=== PATIENT | female | born 1965 | race Caucasian/White ===

== ENCOUNTER → 2017-05-07 | Outpatient (CLI) | payer OTHER ==
[~2017-05-07] MED LIST: ATV5 PO; CLC100 PO; CLCC1250 PO; CLOB1SUS PO; FAMO40TA6 PO; HYDR-389 PO; KPP/750 PO; LAMO100T16 PO; LAMO200T38 PO; MRLP17 PO; MULT-506 PO; PERP1TAB5 PO; PERP1TAB6 PO; PRLSR20 PO; QUET-205 PO; TRAZ1TAB16 PO
--- NOTE | 2017-05-07 15:19 | MAMMOGRAPHY REPORT ---
BILATERAL DIGITAL SCREENING MAMMOGRAM WITH CAD: 05/07/2017 CLINICAL HISTORY: Routine screening. TECHNIQUE: Current study was also evaluated with a Computer Aided Detection (CAD) system. Bilateral MLO views were obtained. COMPARISON: Comparison is made to exams dated: 03/21/2014 mammogram, 03/22/2015 mammogram, 03/19/2013 mamm ogram, 09/28/2012 mammogram, 03/26/2012 mammogram, and 03/17/2012 mammogram - [facility] BREAST COMPOSITION: The tissue of both breasts is heterogeneously dense, which may obscure small mas ses. FINDINGS: Note that the exam is markedly limited; the patient had to be held for all views and could not cooperate for optimal positioning. Only bilateral MLO views could be obtained, which are also mar kedly limited and do not include pectoralis muscles or inframammary folds and are excluding a signifi cant amount of posterior tissue. Within the significant limitations of the exam, there are no suspi cious masses, calcifications, or areas of architectural distortion noted in either breast. There has been no significant interval change compared to prior exams. IMPRESSION: ACR BI-RADS CATEGORY 1: NEGATIVE Significantly limited exam as described above, with only bilateral MLO views obtained. Within the li mitations of the exam, there is no mammographic evidence of malignancy. A 1 year screening mammogram is recommended, if the patient can tolerate the exam. The patient will receive written notification of the results. Approximately 10% of breast cancers are not detected with mammography. A negative mammographic report should not delay biopsy if a clinically suggestive mass is present. Malaika Jimenez M.D. /:05/07/2017 14:44:47 Manufacturing Support Engineer: Jemima NGUYEN(Irving)(M), [facility] letter sent: Normal 1/2 BI-RADS Code: ACR BI-RADS Category 1: Negative
== END | disposition home or self-care (01) ==
LOC: C.MAMM 14:01
PROVIDERS: ATTEND Internal Medicine
DX: Z12.31 Encounter for screening mammogram for malignant neoplasm of breast (principal)

== ENCOUNTER 2018-01-06 11:59 | Emergency (ER) | payer OTHER ==
[~2018-01-06] VITALS: Ht 144.8 cm; Wt 76.8 kg
[~2018-01-06 11:59] MED LIST changes: +LAMO200T35 PO; -LAMO200T38 PO; +TRAZ-119 PO; -TRAZ1TAB16 PO
[2018-01-06 12:13] VITALS: TEMP 36.5; Ht 144.8 cm; Wt 76.8 kg
[2018-01-06] MEDS ORDERED: SRQ/200 PO (12:41)
[2018-01-06] MEDS ORDERED: POLY335019 PO (12:41)
[2018-01-06] MEDS ORDERED: LORA-741 PO (12:41)
[2018-01-06] MEDS ORDERED: ATV/1 PO (12:41)
[2018-01-06] MEDS ORDERED: DOCU-94 PO (12:41)
--- NOTE | 2018-01-06 12:47 | EMERGENCY ROOM VISIT NOTE ---
History Report prepared by Dagoberto: Jb Turcios Under the Supervision of: Dr. Mary Warner M.D. First contact with patient: 12:18 Chief Complaint: OTHER COMPLAINT Stated Complaint: FATIGUE, UNSTEADY GAIT, L SIDE BODY SWOLLEN History of Present Illness The patient is a 52 year old female who presents to the Emergency Room with caretakers for concerns over the patient's gait and behavior. The patient lives at [facility] for MR. The caretakers note that the patient's gait has worsened over the past month or so. The patient appears to limp, and has been stumbling/falling frequently. The weakness appears to be on one side. They also note that the patient is not participating at Skills as she normally would and goes to sleep as soon as she gets home. She does not seem to want to interact with anybody. The patient's last fall was yesterday. She is not on any blood thinners. There is no history of UTIs. Source of History: caregiver Onset: 1 month Position: other (Global) Quality: other (Fatigue/sleeping frequently) Timing: worsening Associated Symptoms: + weakness Review of Systems See HPI for pertinent positives & negatives. A total of 10 systems reviewed and were otherwise negative. Past Medical & Surgical Medical Problems: (1) MR (mental retardation) Family History No significant family history Social History Smoking Status: Never Smoker Alcohol Use: none Drug Use: none Marital Status: single Housing Status: other Occupation Status: disabled Current/Historical Medications Scheduled Calcium Carbonate (Oyster Shell Calcium), 1 TAB PO QAM Clobazam (Onfi), 0.5 MG PO QPM Docusate Sodium (Colace), 1 CAP PO BID Famotidine (Pepcid), 40 MG PO QPM Lamotrigine (Lamictal), 100 MG PO BID Lamotrigine (Lamictal), 200 MG PO BID Levetiracetam (Keppra), 1,500 MG PO BID Lorazepam (Ativan), 0.5 MG PO QAM Lorazepam (Ativan), 1 MG PO QPM Multivitamin (Multivitamin), 1 TAB PO DAILY Omeprazole (Prilosec), 20 MG PO DAILY Perphenazine (Trilafon), 4 MG PO BID Perphenazine (Trilafon), 8 MG PO HS Polyethylene Glycol 3350 (Miralax), 17 GM PO DAILY Quetiapine Fumarate (Seroquel), 200 MG PO BID Trazodone Hcl (Desyrel), 50 MG PO HS Scheduled PRN Hydroxyzine Hcl (Atarax), 10 MG PO Q6 PRN for Itching Allergies Coded Allergies: Naproxen (Verified Allergy, Unknown, ., 01/06/18) Physical Exam Vital Signs Date Time Temp Pulse Resp B/P (MAP) Pulse Ox O2 Delivery O2 Flow Rate FiO2 01/06/18 14:30 88 16 141/78 97 01/06/18 13:39 84 20 122/78 98 Room Air 01/06/18 12:13 36.5 96 20 146/77 98 Room Air Physical Exam Vital signs reviewed. General: Chronically ill-appearing female, in no significant distress. Kyphosis appreciated. HEENT: No scleral icterus, PERRLA, neck supple. Atraumatic. Cardiovascular: Regular rate and rhythm, no extra sounds. Pulmonary: Clear to auscultation bilaterally, normal work of breathing. Abdomen: Soft, nontender, nondistended, positive bowel sounds. Musculoskeletal: Atraumatic, no peripheral edema. Neurologic: is limited due to poor cooperation of the patient. Cranial nerves grossly intact, ambulates with a shuffle, but without assistance. Seems to be at neurologic baseline. Skin: Warm, dry, no rash Medical Decision & Procedures ER Provider Diagnostic Interpretation: Radiology results as stated below per my review and radiologist interpretation: CHEST ONE VIEW PORTABLE HISTORY: lethargy COMPARISON: Chest 06/13/2016. FINDINGS: The heart remains mildly enlarged. There is mild central pulmonary vascular congestion without overt edema. No pleural effusions. No pneumothorax. Hazy appearance to the left lateral lung base is likely due to overlapping soft tissue. Otherwise, no focal lung consolidations to suggest pneumonia. IMPRESSION: Cardiomegaly with mild central pulmonary vascular congestion. Electronically signed by: Cuate Bonilla M.D. 01/06/2018 1:20 PM Dictated Date/Time: 01/06/2018 1:[address] OF THE HEAD WITHOUT CONTRAST CLINICAL HISTORY: lethargy COMPARISON STUDY: Head CT July 15, 2016. CT DOSE: 537.48 mGy.cm TECHNIQUE: Helical axial images of the head were obtained without IV contrast. Automated exposure control was utilized for the study. A dose lowering technique was utilized adhering to the principles of ALARA. FINDINGS: No acute intracranial hemorrhage, midline shift or mass effect is present. Ventricular system is normal. Basilar cisterns are patent. There are no extra-axial collections. Hall-white differentiation is maintained. There are no findings to suggest acute dural sinus thrombosis or acute territorial infarct. There are no significant calvarial abnormalities. There is mild left maxillary sinus mucosal thickening. IMPRESSION: No acute intracranial findings. Electronically signed by: Henry Ayala M.D. 01/06/2018 2:02 PM Dictated Date/Time: 01/06/2018 2:00 PM Laboratory Results 01/06/18 13:35 Red Blood Count 4.19, Mean Corpuscular Volume 91.2, Mean Corpuscular Hemoglobin 30.8, Mean Corpuscular Hemoglobin Concent 33.8, Mean Platelet Volume 10.4, Neutrophils (%) (Auto) 42.8, Lymphocytes (%) (Auto) 43.3, Monocytes (%) (Auto) 11.6, Eosinophils (%) (Auto) 1.6, Basophils (%) (Auto) 0.5, Neutrophils # (Auto ) 2.37, Lymphocytes # (Auto) 2.40, Monocytes # (Auto) 0.64, Eosinophils # (Auto ) 0.09, Basophils # (Auto) 0.03 01/06/18 13:35 Test 01/06/18 13:35 White Blood Count 5.54 K/uL (4.8-10.8) Red Blood Count 4.19 M/uL (4.2-5.4) Hemoglobin 12.9 g/dL (12.0-16.0) Hematocrit 38.2 % (37-47) Mean Corpuscular Volume 91.2 fL (80-100) Mean Corpuscular Hemoglobin 30.8 pg (25-34) Mean Corpuscular Hemoglobin Concent 33.8 g/dl (32-36) Platelet Count 214 K/uL (130-400) Mean Platelet Volume 10.4 fL (7.4-10.4) Neutrophils (%) (Auto) 42.8 % Lymphocytes (%) (Auto) 43.3 % Monocytes (%) (Auto) 11.6 % Eosinophils (%) (Auto) 1.6 % Basophils (%) (Auto) 0.5 % Neutrophils # (Auto) 2.37 K/uL (1.4-6.5) Lymphocytes # (Auto) 2.40 K/uL (1.2-3.4) Monocytes # (Auto) 0.64 K/uL (0.11-0.59) Eosinophils # (Auto) 0.09 K/uL (0-0.5) Basophils # (Auto) 0.03 K/uL (0-0.2) RDW Standard Deviation 41.6 fL (36.4-46.3) RDW Coefficient of Variation 12.5 % (11.5-14.5) Immature Granulocyte % (Auto) 0.2 % Immature Granulocyte # (Auto) 0.01 K/uL (0.00-0.02) Prothrombin Time 9.9 SECONDS (9.0-12.0) Prothromb Time International Ratio 0.9 (0.9-1.1) Activated Partial Thromboplast Time 26.1 SECONDS (21.0-31.0) Partial Thromboplastin Ratio 1.0 Anion Gap 5.0 mmol/L (3-11) Est Creatinine Clear Calc Drug Dose 60.2 ml/min Estimated GFR () 81.9 Estimated GFR (Non- 70.7 BUN/Creatinine Ratio 14.4 (10-20) Calcium Level 8.8 mg/dl (8.5-10.1) Magnesium Level 2.0 mg/dl (1.8-2.4) Total Bilirubin 0.2 mg/dl (0.2-1) Direct Bilirubin < 0.1 mg/dl (0-0.2) Aspartate Amino Transf (AST/SGOT) 7 U/L (15-37) Alanine Aminotransferase (ALT/SGPT) 17 U/L (12-78) Alkaline Phosphatase 150 U/L (45-117) Total Protein 7.6 gm/dl (6.4-8.2) Albumin 3.7 gm/dl (3.4-5.0) Laboratory results per my review. ECG Per My Interpretation Indication: altered mental status Rate (beats per minute): 94 Rhythm: normal sinus Findings: other (inferior infarct, T-wave flattening diffusely. ) ED Course 1222: Past medical records reviewed. The patient was evaluated in room A11B. A complete history and physical examination was performed. 1353: I updated the patient at this time. 1417: Upon reevaluation, the patient appeared to have improvement of her symptoms. I discussed findings with her. She verbalized agreement of the treatment plan. The patient was discharged home. Medical Decision Differential diagnosis: Etiologies such as metabolic, infection, hypoglycemia, electrolyte abnormalities , cardiac sources, intracerebral event, toxicologic, neurologic, as well as others were entertained. This patient was evaluated and appeared to be in no significant distress. IV access was obtained and laboratory work was drawn. CT scan of the head was performed and reveals no evidence of acute pathology. Chest x-ray was performed and is again negative. Laboratory work including troponin is normal. The neurologic assessment performed is somewhat limited due to the patient's inability to cooperate fully. There is no focal abnormality. In review of the patient's medication list, there are multiple sedating medications. In consultation with pharmacy, the patient's Keppra will be cut back to 1000 mg in the morning and 1500 mg in the evening. It was also recommended that the morning Ativan dose be omitted. There are other sedating medications listed. It was advised that the patient follow-up with her PCP for further medication management. They will return to the ED for worsening symptoms or any medical concerns. Medication Reconcilliation Current Medication List: was personally reviewed by me Blood Pressure Screening Patient's blood pressure: Elevated blood pressure Blood pressure disposition: Elevated BP felt to be situational Impression Primary Impression: Somnolence Additional Impression: Polypharmacy Scribe Attestation The scribe's documentation has been prepared under my direction and personally reviewed by me in its entirety. I confirm that the note above accurately reflects all work, treatment, procedures, and medical decision making performed by me. Departure Information Dispostion Home / Self-Care Referrals José Sesay D.O. (PCP) Forms HOME CARE DOCUMENTATION FORM, IMPORTANT VISIT INFORMATION, WORK / SCHOOL INSTRUCTIONS Patient Instructions My [facility] Additional Instructions Diagnosis: Somnolence Decrease Keppra to 1000 mg in the morning and continue 1500 mg at night. Stop the morning Ativan dose of 0.5 mg. Continue evening Ativan. Follow-up with your PCP within the next 1-2 weeks for reevaluation of somnolence. The medication list may be reevaluated at that time. Return to the emergency department for worsening of symptoms or any medical concerns. Problem Qualifiers
--- NOTE | 2018-01-06 13:22 | DIAGNOSTIC IMAGING REPORT ---
CHEST ONE VIEW PORTABLE HISTORY: lethargy COMPARISON: Chest 06/13/2016. FINDINGS: The heart remains mildly enlarged. There is mild central pulmonary vascular congestion without overt edema. No pleural effusions. No pneumothorax. Hazy appearance to the left lateral lung base is likely due to overlapping soft tissue. Otherwise, no focal lung consolidations to suggest pneumonia. IMPRESSION: Cardiomegaly with mild central pulmonary vascular congestion. Electronically signed by: Cuate Bonilla M.D. 01/06/2018 1:20 PM Dictated Date/Time: 01/06/2018 1:18 PM
[2018-01-06 13:47] LABS: BASO % 0.5 %; BASO ABS # 0.03 K/uL (0-0.2); EOS % 1.6 %; EOS ABS # 0.09 K/uL (0-0.5); HEMATOCRIT 38.2 % (37-47); HEMOGLOBIN 12.9 g/dL (12.0-16.0); IG# 0.01 K/uL (0.00-0.02); LYMPH % 43.3 %; MEAN CELL VOLUME 91.2 fL (80-100); MEAN CORPUSCULAR HEMOGLOBIN 30.8 pg (25-34); MEAN CORPUSCULAR HGB CONC 33.8 g/dl (32-36); MEAN PLATELET VOLUME 10.4 fL (7.4-10.4); MONO % 11.6 %; MONO ABS # 0.64 K/uL (0.11-0.59); NEUT % 42.8 %; NEUT ABS # 2.37 K/uL (1.4-6.5); PLATELET COUNT 214 K/uL (130-400); RED CELL DISTRIBUTION WIDTH CV 12.5 % (11.5-14.5); RED CELL DISTRIBUTION WIDTH SD 41.6 fL (36.4-46.3); WHITE BLOOD COUNT 5.54 K/uL (4.8-10.8)
[2018-01-06 13:55] LABS: INR 0.9 (0.9-1.1); PTT PATIENT 26.1 SECONDS (21.0-31.0)
--- NOTE | 2018-01-06 14:03 | DIAGNOSTIC IMAGING REPORT ---
CT OF THE HEAD WITHOUT CONTRAST CLINICAL HISTORY: lethargy COMPARISON STUDY: Head CT July 15, 2016. CT DOSE: 537.48 mGy.cm TECHNIQUE: Helical axial images of the head were obtained without IV contrast. Automated exposure control was utilized for the study. A dose lowering technique was utilized adhering to the principles of ALARA. FINDINGS: No acute intracranial hemorrhage, midline shift or mass effect is present. Ventricular system is normal. Basilar cisterns are patent. There are no extra-axial collections. Hall-white differentiation is maintained. There are no findings to suggest acute dural sinus thrombosis or acute territorial infarct. There are no significant calvarial abnormalities. There is mild left maxillary sinus mucosal thickening. IMPRESSION: No acute intracranial findings. Electronically signed by: Henry Ayala M.D. 01/06/2018 2:02 PM Dictated Date/Time: 01/06/2018 2:00 PM
[2018-01-06 14:10] LABS: ALBUMIN 3.7 gm/dl (3.4-5.0); ALKALINE PHOSPHATASE 150 U/L (45-117); ALT/SGPT 17 U/L (12-78); AST/SGOT 7 U/L (15-37); BLOOD UREA NITROGEN 13 mg/dl (7-18); CALCIUM 8.8 mg/dl (8.5-10.1); CARBON DIOXIDE 30 mmol/L (21-32); CREATININE 0.93 mg/dl (0.60-1.20); GLUCOSE 125 mg/dl (70-99); POTASSIUM 3.9 mmol/L (3.5-5.1); SODIUM 138 mmol/L (136-145); TOTAL PROTEIN 7.6 gm/dl (6.4-8.2)
[2018-01-06 14:30] VITALS: BP 141/78; PULSE 88; O2SAT 97
== END 2018-01-06 14:31 | disposition home or self-care (01) ==
LOC: C.EDB 12:01 → C.EDA 14:31
DX: T50.901A Poisoning by unspecified drugs, medicaments and biological substances, accidental (unintentional), initial encounter (principal); R40.0 Somnolence; R53.83 Other fatigue; R26.81 Unsteadiness on feet; R29.6 Repeated falls; F79 Unspecified intellectual disabilities

== ENCOUNTER 2024-12-15 12:28 | Inpatient (IN) ==
[2024-12-15 14:01] LABS: Appearance Urine Cloudy (Clear); Bacteria Urine Automated 3+ (None Seen); Bilirubin Urine Negative (Negative); Blood Urine 1+ (Negative); Color Urine Dark Yellow; Epithelial Cell Urine Auto 0-2 /hpf (0-2); Glucose Urine UA Negative (Negative); Granular Casts Urine Present /lpf (None Prsent); Hyaline Casts Urine Present /lpf (None Presnt); Ketones Urine Trace (Negative); Leukocyte Esterase Urine 3+ (Negative); Nitrite Urine Negative (Negative); Protein Urine 2+ (Negative); Specific Gravity Urine 1.026 (1.000-1.030); Urobilinogen Urine Negative (Negative); WBC Urine Automated >50 /hpf (0-5); pH Urine 8.5 (4.5-7.5)
[2024-12-15 14:18] LABS: Basophils # (auto) 0.07 K/uL (0.00-0.20); Basophils % (auto) 0.3 %; Eosinophils # (auto) 0.01 K/uL (0.00-0.50); Hematocrit (blood only) 32.3 % (37.0-47.0); Hemoglobin 10.7 g/dl (12.0-16.0); Immature Granulocytes # (auto) 0.22 K/uL (0.01-0.20); Immature Granulocytes % (auto) 1.1 %; Lymphocytes # (auto) 0.61 K/uL (1.20-3.40); Lymphocytes % (auto) 2.9 %; Mean Corpuscular Hemoglobin 29.1 pg (25.0-34.0); Mean Corpuscular Hgb Conc 33.1 g/dL (32.0-36.0); Mean Corpuscular Volume 87.8 fL (80.0-100.0); Mean Platelet Volume 10.2 fL (9.4-12.4); Monocytes % (auto) 5.8 %; Neutrophils % (auto) 89.9 %; Platelet Count 261 K/uL (130-400); RDW Coefficient of Variation 12.6 % (11.5-14.5); RDW Standard Deviation 40.4 fL (36.4-46.3); Red Blood Count 3.68 M/uL (4.20-5.40); White Blood Count 20.81 K/ul (4.8-10.8)
--- NOTE | 2024-12-15 14:19 | XRay Report ---
XR chest 1V portable CLINICAL HISTORY: fever COMPARISON STUDY: 12/05/2021 FINDINGS: Single view chest demonstrates patchy airspace opacity in the right upper lobe with a hint of air bronchogram formation. Lung childers otherwise clear allowing for technique and low lung volumes . Cardiomediastinal silhouette is widened and also due to technique. IMPRESSION: Suspicious for right upper lobe infiltrate ACT 112: Negative or not required by law. Electronically signed by: Ines Myrick M.D. 12/15/2024 2:18 PM
[2024-12-15 14:36] LABS: Albumin Globulin Ratio 1.2 (0.9-2); Albumin Level 3.4 gm/dl (3.4-5.0); BUN Creatinine Ratio 23.4 (10-20); Bilirubin,Total 0.3 mg/dl (0.2-1.0); Calcium 8.7 mg/dl (8.6-10.3); Creatinine Clr Calc Pharmacy 55.1 ml/min; Globulin 2.9 gm/dl (2.5-4.0); Magnesium 2.1 mg/dl (1.7-2.4); Potassium 4.3 mmol/L (3.5-5.1); Total Protein 6.3 gm/dl (6.0-8.3)
--- NOTE | 2024-12-15 15:07 | Emergency Department Note ---
Impression & Plan UTI (urinary tract infection), Pneumonia ADMIT ED Provider Note HPI: History obtained from staff at the bedside. The patient is a 59-year-old female with history of intellectual disabilities, nonverbal, presents the emergency department from [facility] with staff at the bedside over concern for diminished level of alertness and apparent increased work of breathing earlier today. According to the staff member at the bedside the patient did not seem like herself this morning when they try to get her out of bed. She normally is able to stand and pivot and she was not able to do this. She seemed to be somewhat weak/lethargic and had some apparent tachypnea and therefore they brought her to the emergency room to be assessed. On arrival here to the ED the patient is febrile, she is saturating at 91% on room air. Patient's blood pressure is stable at 131/73 on arrival. ROS: - Per HPI Differential Diagnosis: Sepsis, pneumonia, urinary tract infection, viral upper respiratory infection, amongst other potential pathologies. *Outpatient medications and allergy history reviewed. PE: General: Listless appearing HEENT: Normocephalic, trachea midline Eyes: Extraocular eye movement is intact, no scleral erythema Pulmonary: Clear to auscultation bilaterally, no wheezing Cardio: Regular rate and rhythm GI: Abdomen is soft to palpation : No suprapubic tenderness MSK: No evidence of trauma or malformation of the extremities, no edema Skin: No evidence of rash Neuro: Listless, nonverbal at baseline, resting tremor of the upper extremities at baseline Psychiatric: Not agitated INDEPENDENT INTERPRETATIONS: business reporting developer: (As interpreted by myself): - An order was placed for continuous cardiac monitoring - Patient was noted to be in sinus rhythm with a rate of 90 Chest x-ray: (As interpreted by myself): Right sided pneumonia Interventions provided in ED: - IV cefepime, IV azithromycin, IV fluid bolus Medical Decision Making: IV was established and lab work obtained, patient was placed on volcanology teacher. Lab work shows a leukocytosis of 20.81, hemoglobin is stable at 10.7, platelet count is normal, CMP does not show any evidence of any critical findings. Procalcitonin is markedly elevated at 54.7, urinalysis does appear to be infected, there is 3+ leukocyte esterase with significant pyuria and no epithelial cells as well as 3+ bacteria. Will send for culture. Chest x-ray also shows evidence of what appears to be right-sided pneumonia. Patient is stable on room air on my reassessment, her heart rate is within normal limits. Patient was treated with IV cefepime and IV azithromycin after blood cultures were drawn. She was given sepsis fluid calculation for ideal body weight with 2 L of normal saline. I discussed all of the above with the patient's caretakers from the [facility] at the bedside, they are in agreement for the patient to be admitted. Case was discussed with the on-call midlevel provider for [facility] and the patient was placed for admission to the service of Dr. Wright. Consultants/Discussions held with other healthcare providers: - Hospitalist, Dr. Wright Disposition discussion held by myself with: - Caretakers at the bedside Diagnosis: 1. Urinary tract infection, acute 2. Right-sided pneumonia, acute 3. Leukocytosis, acute 4. Elevated procalcitonin, acute Disposition: Admission Chris Mohamud DO Emergency Medicine Past Med/Surg History Problem List (Updated 12/15/24 @ 18:40 by Chris Mohamud DO) Osteoarthritis of hips, bilateral Epilepsy Bladder incontinence Autism Nonverbal Severe intellectual disability OCD (obsessive compulsive disorder) MDD (major depressive disorder) UTI (urinary tract infection) (Acute) Sepsis Pneumonia (Acute) Medical History (Updated 12/15/24 @ 18:40 by Chris Mohamud DO) Traumatic wound Acute and chronic respiratory failure with hypercapnia Obesity hypoventilation syndrome Diastolic dysfunction Hypothyroidism Shortness of breath Cough Hypoxia RSV (respiratory syncytial virus infection) Cervical mass Morbid obesity Bilateral lower leg cellulitis Acute respiratory failure with hypoxia and hypercarbia Reactive airway disease Acute respiratory failure with hypoxia and hypercapnia Acute respiratory failure with hypercapnia Hypercapnia resolved Hypoxia resolved Impacted cerumen of both ears Sensorineural hearing loss (SNHL) of both ears History of kidney disease Stage 3 Dementia Depression Eating disorder Postmenopausal status Primary hypothyroidism Down syndrome Hypertension Hypercholesteremia Somnolence Sialoadenitis, unspecified Polypharmacy Fall Acute head injury MR (mental retardation) Post-menopausal Pharyngoesophageal dysphagia Osteoarthritis Obesity Mood disorder Chronic kidney disease, stage 3 Hearing loss Hallucinations Hx of esophagitis Dry eyes Degenerative disc disease, lumbar Constipation Bursitis unilateral hip, unsure which side Asthma Arthritis GERD (gastroesophageal reflux disease) Cataracts, bilateral Sleep apnea no current device, getting tested again in 09/2023 Depression Hx of breast lump Intellectual disability Surgical History (Updated 12/15/24 @ 17:50 by CHARLEEN Rojo) No significant past surgical history Surgical history unknown Social History (Updated 12/15/24 @ 17:50 by CHARLEEN Rojo) Smoking Status: Never smoker Preferred Language: Danish marital status: Single current occupational status: disabled Feels Safe at Home: Yes Assistive Devices: Walker Allergies Allergies Allergy/AdvReac Type Severity Reaction Status Date / Time NSAIDS (Non-Steroidal Allergy Intermediate Unverified 11/25/24 13:06 Anti-Inflamma naproxen Allergy Unknown Unknown Verified 02/11/21 18:30 Home Meds Home Medications Medication Instructions Recorded Confirmed acetaminophen 500 mg tablet 1,000 mg PO Q4H PRN Headache/Pain 12/15/24 12/15/24 acetaminophen 500 mg tablet 500 mg PO QAM 12/15/24 12/15/24 aloe vera 1 applic topical Q1H PRN Sunburn 12/15/24 12/15/24 aluminum-mag hydroxide-simethicone 10 ml PO DIRECTED PRN 12/15/24 12/15/24 400 mg-400 mg-40 mg/5 mL oral susp Indigestion (Maalox Maximum Strength) bisacodyl 5 mg tablet,delayed 10 mg PO Q3D PRN Constipation 12/15/24 12/15/24 release calcium 500 mg (as 1 tab PO QAM 12/15/24 12/15/24 carbonate)-vitamin D3 5 mcg (200 unit) tablet chlorhexidine gluconate 0.12 % 1 applic buccal TID 12/15/24 12/15/24 mouthwash clobazam 10 mg tablet 5 mg PO HS 12/15/24 12/15/24 deutetrabenazine 36 mg 36 mg PO DAILY 12/15/24 12/15/24 tablet,extended release 24 hr (Austedo XR) dextromethorphan-guaifenesin 20 10 ml PO Q4H PRN Cough 12/15/24 12/15/24 mg-400 mg/5 mL oral liquid docusate sodium 100 mg capsule 100 mg PO BID 12/15/24 12/15/24 famotidine 40 mg tablet 40 mg PO DAILY 12/15/24 12/15/24 fluoride (sodium) 1.1 % dental 1 applic dental DAILY 12/15/24 12/15/24 cream (Sodium Fluoride 5000 Plus) glycopyrrolate 1 mg tablet 1 mg PO TID 12/15/24 12/15/24 hydrocortisone 1 % topical cream 1 applic topical TID PRN Rash 12/15/24 12/15/24 lamotrigine 100 mg tablet 50 mg PO BID 12/15/24 12/15/24 lamotrigine 200 mg tablet 200 mg PO BID 12/15/24 12/15/24 levetiracetam 1,000 mg tablet 1,000 mg PO BID 12/15/24 12/15/24 levetiracetam 500 mg tablet 500 mg PO BID 12/15/24 12/15/24 loperamide 2 mg capsule 2 mg PO DIRECTED PRN Loose Stool 12/15/24 12/15/24 multivitamin 1 tab PO QAM 12/15/24 12/15/24 perphenazine 2 mg tablet 2 mg PO BID 12/15/24 12/15/24 perphenazine 4 mg tablet 4 mg PO HS 12/15/24 12/15/24 phenylephrine HCl 10 mg tablet 10 mg PO Q4H PRN Colds/Runny Nose 12/15/24 12/15/24 phosphorated carbohydrate oral 30 ml PO DIRECTED PRN Nausea 12/15/24 12/15/24 solution (Emetrol oral solution) polyethylene glycol 3350 17 17 g PO DAILY 12/15/24 12/15/24 gram/dose oral powder quetiapine 200 mg tablet 200 mg PO HS 12/15/24 12/15/24 quetiapine 50 mg tablet 50 mg PO QAM 12/15/24 12/15/24 sertraline 100 mg tablet 100 mg PO QAM 12/15/24 12/15/24 Results & Data (ED) Vital Signs Vital Signs - 24 hr 12/15/24 12:53 12/15/24 13:03 12/15/24 13:19 Temperature 38.5 C H Temperature Source Rectal Pulse Rate 92 H 95 H Pulse Rate [Apical] Pulse Rate from SpO2 Sensor Respiratory Rate 22 Respiratory Effort / Characteristics Spontaneous Respiratory Depth Normal Respiratory Pattern Regular Blood Pressure 134/65 Blood Pressure [Right Arm] Blood Pressure Mean 88 Blood Pressure Mean [Right Arm] Blood Pressure Position Lying Pulse Oximetry 92 92 Oxygen Delivery Method Room Air Room Air Sepsis Recent Fever Within 48 Hours Yes Sepsis New/Unexplained Change in Mental Status Yes Sepsis Action Taken by Nursing No Action Required 12/15/24 13:21 12/15/24 13:25 12/15/24 13:30 Temperature Temperature Source Pulse Rate 93 H 88 Pulse Rate [Apical] Pulse Rate from SpO2 Sensor 93 H Respiratory Rate 22 18 Respiratory Effort / Characteristics Respiratory Depth Respiratory Pattern Blood Pressure 124/64 106/56 L Blood Pressure [Right Arm] Blood Pressure Mean 84 85 Blood Pressure Mean [Right Arm] Blood Pressure Position Pulse Oximetry 90 90 Oxygen Delivery Method Room Air Sepsis Recent Fever Within 48 Hours Yes Sepsis New/Unexplained Change in Mental Status Yes Sepsis Action Taken by Nursing No Action Required 12/15/24 13:36 12/15/24 14:00 12/15/24 14:01 Temperature Temperature Source Pulse Rate 88 96 H Pulse Rate [Apical] Pulse Rate from SpO2 Sensor 90 99 H Respiratory Rate 24 16 Respiratory Effort / Characteristics Respiratory Depth Respiratory Pattern Blood Pressure 133/49 L Blood Pressure [Right Arm] Blood Pressure Mean 68 Blood Pressure Mean [Right Arm] Blood Pressure Position Pulse Oximetry 90 93 Oxygen Delivery Method Sepsis Recent Fever Within 48 Hours Sepsis New/Unexplained Change in Mental Status Sepsis Action Taken by Nursing 12/15/24 14:02 12/15/24 14:06 12/15/24 14:08 Temperature 38.5 C H Temperature Source Rectal Pulse Rate 93 H Pulse Rate [Apical] 92 H Pulse Rate from SpO2 Sensor 112 H Respiratory Rate 20 26 H Respiratory Effort / Characteristics Respiratory Depth Respiratory Pattern Blood Pressure Blood Pressure [Right Arm] 100/50 L Blood Pressure Mean Blood Pressure Mean [Right Arm] 66 Blood Pressure Position Pulse Oximetry 92 92 Oxygen Delivery Method Room Air Room Air Sepsis Recent Fever Within 48 Hours Sepsis New/Unexplained Change in Mental Status Sepsis Action Taken by Nursing 12/15/24 14:30 12/15/24 14:57 12/15/24 14:59 Temperature Temperature Source Pulse Rate 104 H 99 H Pulse Rate [Apical] 97 H Pulse Rate from SpO2 Sensor 103 H Respiratory Rate 27 H 19 20 Respiratory Effort / Characteristics Respiratory Depth Respiratory Pattern Blood Pressure Blood Pressure [Right Arm] 131/73 Blood Pressure Mean Blood Pressure Mean [Right Arm] 92 Blood Pressure Position Pulse Oximetry 92 91 Oxygen Delivery Method Room Air Sepsis Recent Fever Within 48 Hours Sepsis New/Unexplained Change in Mental Status Sepsis Action Taken by Nursing 12/15/24 15:01 12/15/24 15:03 12/15/24 16:30 Temperature Temperature Source Pulse Rate 100 H Pulse Rate [Apical] 97 H Pulse Rate from SpO2 Sensor 100 H Respiratory Rate 31 H 20 Respiratory Effort / Characteristics Respiratory Depth Respiratory Pattern Blood Pressure 131/73 Blood Pressure [Right Arm] 120/60 Blood Pressure Mean 81 Blood Pressure Mean [Right Arm] 80 Blood Pressure Position Pulse Oximetry 92 Oxygen Delivery Method Room Air Sepsis Recent Fever Within 48 Hours Sepsis New/Unexplained Change in Mental Status Sepsis Action Taken by Nursing 12/15/24 16:36 Temperature Temperature Source Pulse Rate 95 H Pulse Rate [Apical] Pulse Rate from SpO2 Sensor Respiratory Rate Respiratory Effort / Characteristics Respiratory Depth Respiratory Pattern Blood Pressure Blood Pressure [Right Arm] Blood Pressure Mean Blood Pressure Mean [Right Arm] Blood Pressure Position Pulse Oximetry Oxygen Delivery Method Sepsis Recent Fever Within 48 Hours Sepsis New/Unexplained Change in Mental Status Sepsis Action Taken by Nursing Laboratory Data 12/15/24 14:02 12/15/24 14:02 Lab Results 12/15/24 12/15/24 12/15/24 Range/Units 14:02 14:05 17:28 WBC 20.81 H (4.8-10.8) K/ul RBC 3.68 L (4.20-5.40) M/uL Hgb 10.7 L (12.0-16.0) g/dl Hct 32.3 L (37.0-47.0) % MCV 87.8 (80.0-100.0) fL MCH 29.1 (25.0-34.0) pg MCHC 33.1 (32.0-36.0) g/dL RDW Std Deviation 40.4 (36.4-46.3) fL RDW Coeff of Nic 12.6 (11.5-14.5) % Plt Count 261 (130-400) K/uL MPV 10.2 (9.4-12.4) fL Immature Gran % (Auto) 1.1 % Neut % (Auto) 89.9 % Lymph % (Auto) 2.9 % [place] % (Auto) 5.8 % Eos % (Auto) 0.0 % Baso % (Auto) 0.3 % Neut # (Auto) 18.70 H (1.40-6.50) K/uL Lymph # (Auto) 0.61 L (1.20-3.40) K/uL [place] # (Auto) 1.20 H (0.11-0.59) K/uL Eos # (Auto) 0.01 (0.00-0.50) K/uL Baso # (Auto) 0.07 (0.00-0.20) K/uL Immature Gran # (Auto) 0.22 H (0.01-0.20) K/uL Sodium 135 L (136-145) mmol/L Potassium 4.3 (3.5-5.1) mmol/L Chloride 98 (98-107) mmol/L Carbon Dioxide 31 (21-32) mmol/L Anion Gap 6 (3-11) BUN 25 H (6-23) mg/dl Creatinine 1.07 (0.6-1.2) mg/dl Est Cr Clr Drug Dosing 55.1 ml/min eGFR 59.84 BUN/Creatinine Ratio 23.4 H (10-20) Glucose 124 H (70-99(Fasting)) mg/dl Lactate 1.1 0.8 (0.4-2.0) mmol/L Calcium 8.7 (8.6-10.3) mg/dl Magnesium 2.1 (1.7-2.4) mg/dl Total Bilirubin 0.3 (0.2-1.0) mg/dl AST 13 (13-39) U/L ALT 12 (7-52) U/L Alkaline Phosphatase 131 H (34-104) U/L Total Protein 6.3 (6.0-8.3) gm/dl Albumin 3.4 (3.4-5.0) gm/dl Globulin 2.9 (2.5-4.0) gm/dl Albumin/Globulin Ratio 1.2 (0.9-2) Procalcitonin 54.70 H (0-0.5) ng/ml Urine Color Urine Appearance (Clear) Urine pH (4.5-7.5) Ur Specific [place] (1.000-1.030) Urine Protein (Negative) Urine Glucose (UA) (Negative) Urine Ketones (Negative) Urine Blood (Negative) Urine Nitrite (Negative) Urine Bilirubin (Negative) Urine Urobilinogen (Negative) Ur Leukocyte Esterase (Negative) Urine WBC (Auto) (0-5) /hpf Urine RBC (Auto) (0-2) /hpf U Hyaline Cast (Auto) (0-2) /lpf U Epithel Cells (Auto) (0-2) /hpf Urine Bacteria (Auto) (None Seen) Hyaline Casts (None Presnt) /lpf Granular Casts (None Prsent) /lpf Adenovirus (PCR) Not Detected (NotDetected) B. pertussis DNA (PCR) Not Detected (NotDetected) B.parapertussis DNA PCR Not Detected (NotDetected) C. pneumoniae DNA (PCR) Not Detected (NotDetected) Coronavirus OC43 (PCR) Not Detected (NotDetected) Coronavirus HKU1 (PCR) Not Detected (NotDetected) Coronavirus 229E (PCR) Not Detected (NotDetected) SARS-CoV-2 (PCR) Not Detected (NotDetected) Coronavirus NL63 (PCR) Not Detected (NotDetected) Human Metapneumovir PCR Not Detected (NotDetected) Influenza Type A (PCR) Not Detected (NotDetected) Influenza Type B (PCR) Not Detected (NotDetected) M. pneumoniae (PCR) Not Detected (NotDetected) Parainfluenza 1 (PCR) Not Detected (NotDetected) Parainfluenza 2 (PCR) Not Detected (NotDetected) Parainfluenza 3 (PCR) Not Detected (NotDetected) Parainfluenza 4 (PCR) Not Detected (NotDetected) RSV (PCR) Not Detected (NotDetected) Entero/Rhino (PCR) Not Detected (NotDetected) 12/15/24 Range/Units Unknown WBC (4.8-10.8) K/ul RBC (4.20-5.40) M/uL Hgb (12.0-16.0) g/dl Hct (37.0-47.0) % MCV (80.0-100.0) fL MCH (25.0-34.0) pg MCHC (32.0-36.0) g/dL RDW Std Deviation (36.4-46.3) fL RDW Coeff of Nic (11.5-14.5) % Plt Count (130-400) K/uL MPV (9.4-12.4) fL Immature Gran % (Auto) % Neut % (Auto) % Lymph % (Auto) % [place] % (Auto) % Eos % (Auto) % Baso % (Auto) % Neut # (Auto) (1.40-6.50) K/uL Lymph # (Auto) (1.20-3.40) K/uL [place] # (Auto) (0.11-0.59) K/uL Eos # (Auto) (0.00-0.50) K/uL Baso # (Auto) (0.00-0.20) K/uL Immature Gran # (Auto) (0.01-0.20) K/uL Sodium (136-145) mmol/L Potassium (3.5-5.1) mmol/L Chloride (98-107) mmol/L Carbon Dioxide (21-32) mmol/L Anion Gap (3-11) BUN (6-23) mg/dl Creatinine (0.6-1.2) mg/dl Est Cr Clr Drug Dosing ml/min eGFR BUN/Creatinine Ratio (10-20) Glucose (70-99(Fasting)) mg/dl Lactate (0.4-2.0) mmol/L Calcium (8.6-10.3) mg/dl Magnesium (1.7-2.4) mg/dl Total Bilirubin (0.2-1.0) mg/dl AST (13-39) U/L ALT (7-52) U/L Alkaline Phosphatase (34-104) U/L Total Protein (6.0-8.3) gm/dl Albumin (3.4-5.0) gm/dl Globulin (2.5-4.0) gm/dl Albumin/Globulin Ratio (0.9-2) Procalcitonin (0-0.5) ng/ml Urine Color Dark Yellow Urine Appearance Cloudy A (Clear) Urine pH 8.5 H (4.5-7.5) Ur Specific [place] 1.026 (1.000-1.030) Urine Protein 2+ H (Negative) Urine Glucose (UA) Negative (Negative) Urine Ketones Trace H (Negative) Urine Blood 1+ H (Negative) Urine Nitrite Negative (Negative) Urine Bilirubin Negative (Negative) Urine Urobilinogen Negative (Negative) Ur Leukocyte Esterase 3+ H (Negative) Urine WBC (Auto) >50 H (0-5) /hpf Urine RBC (Auto) 11-20 H (0-2) /hpf U Hyaline Cast (Auto) 11-20 H (0-2) /lpf U Epithel Cells (Auto) 0-2 (0-2) /hpf Urine Bacteria (Auto) 3+ H (None Seen) Hyaline Casts Present A (None Presnt) /lpf Granular Casts Present A (None Prsent) /lpf Adenovirus (PCR) (NotDetected) B. pertussis DNA (PCR) (NotDetected) B.parapertussis DNA PCR (NotDetected) C. pneumoniae DNA (PCR) (NotDetected) Coronavirus OC43 (PCR) (NotDetected) Coronavirus HKU1 (PCR) (NotDetected) Coronavirus 229E (PCR) (NotDetected) SARS-CoV-2 (PCR) (NotDetected) Coronavirus NL63 (PCR) (NotDetected) Human Metapneumovir PCR (NotDetected) Influenza Type A (PCR) (NotDetected) Influenza Type B (PCR) (NotDetected) M. pneumoniae (PCR) (NotDetected) Parainfluenza 1 (PCR) (NotDetected) Parainfluenza 2 (PCR) (NotDetected) Parainfluenza 3 (PCR) (NotDetected) Parainfluenza 4 (PCR) (NotDetected) RSV (PCR) (NotDetected) Entero/Rhino (PCR) (NotDetected) Administered Medications Discontinued Medications Sodium Chloride (Nss) 1,000 mls @ 999 mls/hr IV .Q1H1M ONE Stop: 12/15/24 15:01 Last Infusion: 12/15/24 16:38 Dose: Infused Documented By: Admin: 12/15/24 15:28 Dose: 999 mls/hr Documented By: JOSSE Cefepime HCl (Maxipime 2000mg) 2,000 mg in 20 mls @ 5 mls/min IV NOW STA; Protocol Stop: 12/15/24 15:07 Last Admin: 12/15/24 15:26 Dose: 5 mls/min Documented By: JOSSE Azithromycin (Zithromax) 500 mg in 255 mls @ 127.5 mls/hr IV NOW ONE Stop: 12/15/24 17:03 Last Infusion: 12/15/24 18:01 Dose: Infused Documented By: Admin: 12/15/24 15:28 Dose: 127.5 mls/hr Documented By: JOSSE Sodium Chloride (Nss) 1,000 mls @ 999 mls/hr IV .Q1H1M ONE Stop: 12/15/24 17:18 Last Infusion: 12/15/24 18:01 Dose: Infused Documented By: Admin: 12/15/24 16:38 Dose: 999 mls/hr Documented By: NRB Imaging Data Radiologist's Impression: Chest X-Ray 12/15/24 14:01 XR chest 1V portable CLINICAL HISTORY: fever COMPARISON STUDY: 12/05/2021 FINDINGS: Single view chest demonstrates patchy airspace opacity in the right upper lobe with a hint of air bronchogram formation. Lung childers otherwise clear allowing for technique and low lung volumes. Cardiomediastinal silhouette is widened and also due to technique. IMPRESSION: Suspicious for right upper lobe infiltrate ACT 112: Negative or not required by law. Electronically signed by: Ines Myrick M.D. 12/15/2024 2:18 PM Discharge Plan Visit Data Chief Complaint: Illness Stated Complaint: LETHARGIC ED Provider: Chris Mohamud Discharge Problem: UTI (urinary tract infection), Pneumonia Forms Stand Alone Forms: [facility] Prescriptions Prescriptions: No Action multivitamin Tablet 1 tab PO QAM glycopyrrolate 1 mg tablet 1 mg PO TID perphenazine 2 mg tablet 2 mg PO BID lamotrigine 200 mg tablet 200 mg PO BID Rx Instructions: Take 200mg w/ 50mg to equal 250mg by mouth twice daily loperamide 2 mg Capsule 2 mg PO DIRECTED MDD 8mg/24hrs PRN (Reason: Loose Stool) Rx Instructions: administer after each loose stool until symptoms controlled; do not exceed 8 mg per 24 hrs levetiracetam 500 mg tablet 500 mg PO BID Rx Instructions: Take 500mg w/ 1000mg to equal 1500mg by mouth twice daily famotidine 40 mg tablet 40 mg PO DAILY Emetrol Solution 30 ml PO DIRECTED PRN (Reason: Nausea) Rx Instructions: Every 15 minutes sertraline 100 mg tablet 100 mg PO QAM quetiapine 200 mg tablet 200 mg PO HS acetaminophen 500 mg Tablet 1,000 mg PO Q4H PRN (Reason: Headache/Pain) acetaminophen 500 mg Tablet 500 mg PO QAM hydrocortisone 1 % Cream 1 applic TOPICAL TID PRN (Reason: Rash) perphenazine 4 mg tablet 4 mg PO HS docusate sodium 100 mg Capsule 100 mg PO BID Rx Instructions: Hold if loose stools bisacodyl 5 mg Tablet,Delayed Release (Dr/Ec) 10 mg PO Q3D PRN (Reason: Constipation) polyethylene glycol 3350 17 gram/dose powder 17 g PO DAILY Rx Instructions: Hold for loose stools aloe vera Gel 1 applic TOPICAL Q1H PRN (Reason: Sunburn) lamotrigine 100 mg tablet 50 mg PO BID Rx Instructions: Take 50mg w/ 200mg to equal 250mg by mouth twice daily alum-mag hydroxide-simeth [Maalox Maximum Strength] 400-400-40 mg/5 mL Suspension 10 ml PO DIRECTED MDD 60ml/24hrs PRN (Reason: Indigestion) Rx Instructions: Give 2 tsp by mouth as needed for indigestion between meals and at bedtime. phenylephrine HCl 10 mg Tablet 10 mg PO Q4H PRN (Reason: Colds/Runny Nose) calcium carbonate-vitamin D3 500 mg-5 mcg (200 unit) Tablet 1 tab PO QAM fluoride (sodium) [Sodium Fluoride 5000 Plus] 1.1 % Cream 1 applic DENTAL DAILY chlorhexidine gluconate 0.12 % Mouthwash 1 applic BUCCAL TID Rx Instructions: Swab on teeth and gums after brushing quetiapine 50 mg tablet 50 mg PO QAM levetiracetam 1,000 mg tablet 1,000 mg PO BID Rx Instructions: Take 1000mg w/ 500mg to equal 1500mg by mouth twice daily dextromethorphan-guaifenesin 20-400 mg/5 mL Liquid 10 ml PO Q4H PRN (Reason: Cough) clobazam 10 mg tablet 5 mg PO HS [place] XR 36 mg tablet extended release 24 hr 36 mg PO DAILY Referrals Referrals: Josh Holman MD [Primary Care Provider] -
[2024-12-15 15:16] LABS: Adenovirus PCR Not Detected (NotDetected); Bordetella parapertussis PCR Not Detected (NotDetected); Bordetella pertussis PCR Not Detected (NotDetected); Chlamydia pneumoniae PCR Not Detected (NotDetected); Coronavirus 229E PCR Not Detected (NotDetected); Coronavirus CoV-2 (COVID19)PCR Not Detected (NotDetected); Coronavirus HKU1 PCR Not Detected (NotDetected); Coronavirus NL63 PCR Not Detected (NotDetected); Coronavirus OC43PCR Not Detected (NotDetected); Human Metapneumovirus PCR Not Detected (NotDetected); Influenza A PCR Not Detected (NotDetected); Influenza B PCR Not Detected (NotDetected); Mycoplasma pneumoniae PCR Not Detected (NotDetected); Parainfluenza Virus 1 PCR Not Detected (NotDetected); Parainfluenza Virus 2 PCR Not Detected (NotDetected); Parainfluenza Virus 3 PCR Not Detected (NotDetected); Parainfluenza Virus 4 PCR Not Detected (NotDetected); Respiratory Syncytial VirusPCR Not Detected (NotDetected); Rhinovirus/Enterovirus PCR Not Detected (NotDetected)
[2024-12-15] MEDS: CEFEPIME 2000MG 2,000 MG/20 ML SYR IV STA (15:26)
[2024-12-15] MEDS: AZITHROMYCIN 500 MG/255 ML BAG IV ONE (15:28)
[2024-12-15] MEDS: SODIUM CHLORIDE 0.9% 1,000 ML IV ONE ×2 (15:28→16:38)
--- NOTE | 2024-12-15 16:47 | History & Physical Report ---
Date of Service December 15, 2024 Assessment & Plan (1) Sepsis: (2) Pneumonia: (3) UTI (urinary tract infection): (4) Epilepsy: (5) MDD (major depressive disorder): (6) OCD (obsessive compulsive disorder): (7) Osteoarthritis of hips, bilateral: Plan 59 year old female with PMH significant for severe intellectual disability, nonverbal at baseline, autism, epilepsy, MDD, GERD, incontinence of urine and stool, excessive salivation, OA s/p joint injection on 11/30 at [facility], and left nephrolithiasis who presents to the ED from [facility] where the staff noticed that she was not herself this morning who is being admitted for sepsis. Sepsis secondary to PNA and UTI Patient meets criteria for sepsis with +leukocytosis with left shift, tachycardia, tachypnea, febrile Lactate negative, procalcitonin 54 CXR with opacity of RUL concerning for PNA UA +leuk est, WBC, bacteria Head CT and CT abd/pelvis pending Plan -Follow urine and blood cultures -MRSA swab -MIVF -IV cefepime and IV doxycycline plus probiotic -Albuterol nebs PRN -ISP valve -O2 as needed to maintain sats >92% -PT/OT/ST given lethargy/weakness Epilepsy Follows with [facility] Dr. Richardson (last seen 11/04) Continue clobazam, lamictal, keppra MDD/OCD/tardive dyskinesia Follows with Psych at [facility] Clear Continue [place], sertraline, seroquel, perphenazine GERD Continue famotidine Excessive salivation Continue glycopyrrolate DVT Prophylaxis: SQ lovenox Code Status: FULL CODE PCP: Dr Josh Holman Disposition: admit to med surg tele Medical Proxy is Mary Tammy ([phone]) Nursing Vegetable Vendor at [facility] is Rochelle ([phone]) Patient seen in collaboration with Dr Wright. Please see addendum. I spent a total of 75 minutes coordinating, documenting and providing care for this patient excluding time spent in the performance of separately billed services or time spent by another provider/QHP. Admission and Anticipated Discharge Date Admission Date: 12/15/2024 History of Present Illness Chief Complaint: lethargy Primary Care Provider: Josh Holman MD 59 year old female with PMH significant for severe intellectual disability, nonverbal at baseline, autism, epilepsy, MDD, OCD, GERD, incontinence of urine, OA s/p joint injection on 11/30 at [facility], and history of left nephrolithiasis who presents to the ED from [facility] where the staff noticed that she was not herself this morning. Patient is unable to provide history as she is nonverbal but the nursing supervisor dyer, Rochelle, was at bedside and able to provide history. She reports that patient was in her usual state of health yesterday but was incontinent of stool this morning. Patient is usually inco ntinent of urine but not stool. When the staff went to clean the patient up, she was a two person assist, where she normally is able to get herself up out of bed. They noticed patient was limp and lethargic, tachypneic at 32, and hypoxic at 88% on RA. Patient felt warm but their thermometer read 97.9F. She denies cough or runny nose. She denies any sick contacts in the patient's house. Patient has been eating and drinking at her baseline. Patient was able to take her medications this morning. She denies falls. Rochelle notes that Ines understands when people talk to her and will follow commands. She likes blankets over her head. She likes soda and peanut butter and jelly sandwiches. She will sometimes grab your arm to show you something and if you pull away she may dig in with her nails. She has been aggressive in the past but not recently. Allergies Allergy/AdvReac Type Severity Reaction Status Date / Time NSAIDS (Non-Steroidal Allergy Intermediate Unverified 11/25/24 13:06 Anti-Inflamma naproxen Allergy Unknown Unknown Verified 02/11/21 18:30 Home Medications Medication Instructions Recorded Confirmed Type acetaminophen 500 mg tablet 1,000 mg PO Q4H PRN Headache/Pain 12/15/24 12/15/24 History acetaminophen 500 mg tablet 500 mg PO QAM 12/15/24 12/15/24 History aloe vera 1 applic topical Q1H PRN Sunburn 12/15/24 12/15/24 History aluminum-mag hydroxide-simethicone 10 ml PO DIRECTED PRN 12/15/24 12/15/24 History 400 mg-400 mg-40 mg/5 mL oral susp Indigestion (Maalox Maximum Strength) bisacodyl 5 mg tablet,delayed 10 mg PO Q3D PRN Constipation 12/15/24 12/15/24 History release calcium 500 mg (as 1 tab PO QAM 12/15/24 12/15/24 History carbonate)-vitamin D3 5 mcg (200 unit) tablet chlorhexidine gluconate 0.12 % 1 applic buccal TID 12/15/24 12/15/24 History mouthwash clobazam 10 mg tablet 5 mg PO HS 12/15/24 12/15/24 History deutetrabenazine 36 mg 36 mg PO DAILY 12/15/24 12/15/24 History tablet,extended release 24 hr (Austedo XR) dextromethorphan-guaifenesin 20 10 ml PO Q4H PRN Cough 12/15/24 12/15/24 History mg-400 mg/5 mL oral liquid docusate sodium 100 mg capsule 100 mg PO BID 12/15/24 12/15/24 History famotidine 40 mg tablet 40 mg PO DAILY 12/15/24 12/15/24 History fluoride (sodium) 1.1 % dental 1 applic dental DAILY 12/15/24 12/15/24 History cream (Sodium Fluoride 5000 Plus) glycopyrrolate 1 mg tablet 1 mg PO TID 12/15/24 12/15/24 History hydrocortisone 1 % topical cream 1 applic topical TID PRN Rash 12/15/24 12/15/24 History lamotrigine 100 mg tablet 50 mg PO BID 12/15/24 12/15/24 History lamotrigine 200 mg tablet 200 mg PO BID 12/15/24 12/15/24 History levetiracetam 1,000 mg tablet 1,000 mg PO BID 12/15/24 12/15/24 History levetiracetam 500 mg tablet 500 mg PO BID 12/15/24 12/15/24 History loperamide 2 mg capsule 2 mg PO DIRECTED PRN Loose Stool 12/15/24 12/15/24 History multivitamin 1 tab PO QAM 12/15/24 12/15/24 History perphenazine 2 mg tablet 2 mg PO BID 12/15/24 12/15/24 History perphenazine 4 mg tablet 4 mg PO HS 12/15/24 12/15/24 History phenylephrine HCl 10 mg tablet 10 mg PO Q4H PRN Colds/Runny Nose 12/15/24 12/15/24 History phosphorated carbohydrate oral 30 ml PO DIRECTED PRN Nausea 12/15/24 12/15/24 History solution (Emetrol oral solution) polyethylene glycol 3350 17 17 g PO DAILY 12/15/24 12/15/24 History gram/dose oral powder quetiapine 200 mg tablet 200 mg PO HS 12/15/24 12/15/24 History quetiapine 50 mg tablet 50 mg PO QAM 12/15/24 12/15/24 History sertraline 100 mg tablet 100 mg PO QAM 12/15/24 12/15/24 History Past Med/Surg History Problem List (Updated 12/15/24 @ 18:40 by Chris Mohamud DO) Osteoarthritis of hips, bilateral Epilepsy Bladder incontinence Autism Nonverbal Severe intellectual disability OCD (obsessive compulsive disorder) MDD (major depressive disorder) UTI (urinary tract infection) (Acute) Sepsis Pneumonia (Acute) Medical History (Updated 12/15/24 @ 18:40 by Chris Mohamud DO) Traumatic wound Acute and chronic respiratory failure with hypercapnia Obesity hypoventilation syndrome Diastolic dysfunction Hypothyroidism Shortness of breath Cough Hypoxia RSV (respiratory syncytial virus infection) Cervical mass Morbid obesity Bilateral lower leg cellulitis Acute respiratory failure with hypoxia and hypercarbia Reactive airway disease Acute respiratory failure with hypoxia and hypercapnia Acute respiratory failure with hypercapnia Hypercapnia resolved Hypoxia resolved Impacted cerumen of both ears Sensorineural hearing loss (SNHL) of both ears History of kidney disease Stage 3 Dementia Depression Eating disorder Postmenopausal status Primary hypothyroidism Down syndrome Hypertension Hypercholesteremia Somnolence Sialoadenitis, unspecified Polypharmacy Fall Acute head injury MR (mental retardation) Post-menopausal Pharyngoesophageal dysphagia Osteoarthritis Obesity Mood disorder Chronic kidney disease, stage 3 Hearing loss Hallucinations Hx of esophagitis Dry eyes Degenerative disc disease, lumbar Constipation Bursitis unilateral hip, unsure which side Asthma Arthritis GERD (gastroesophageal reflux disease) Cataracts, bilateral Sleep apnea no current device, getting tested again in 09/2023 Depression Hx of breast lump Intellectual disability Surgical History (Updated 12/15/24 @ 17:50 by CHARLEEN Rojo) No significant past surgical history Surgical history unknown Social History (Updated 12/15/24 @ 17:50 by ELKIN Rojo Smoking Status: Never smoker Preferred Language: Hebrew marital status: Single current occupational status: disabled Feels Safe at Home: Yes Assistive Devices: Walker Review of Systems Review of Systems: Unobtainable due to cognitive status Physical Exam Physical Exam: General/Psych: WD/WN, sitting up in bed, NAD, nonverbal Head: normocephalic, atraumatic Eyes: normal inspection, PERRL, conjunctivae pink, anicteric sclerae ENT: external ear and nose normal, oropharynx normal Neck: normal visual inspection, trachea midline, no thyromegaly Respiratory: normal respiratory effort, no accessory muscle use, inspiratory wheezes appreciated over bilateral lung childers Cardiovascular: regular rate and rhythm, no murmur/rub/gallop, no JVD Extremities: no cyanosis or clubbing, normal peripheral pulses, no BLE edema Abdomen/GI: normal bowel sounds, soft, nontender, no hepatosplenomegaly, no flank pain Neurologic/MSK: A+Ox3, moves all extremities Skin: no rashes, normal color, warm and dry Results & Data Results & Data Vital Signs (Past 12 Hours) Vital Signs Temp Pulse Pulse Resp BP BP Pulse Ox 12/15/24 16:36 95 H 12/15/24 16:30 97 H 20 120/60 92 12/15/24 15:03 100 H 31 H 12/15/24 15:01 131/73 12/15/24 14:59 97 H 20 131/73 91 12/15/24 14:57 99 H 19 12/15/24 14:30 104 H 27 H 92 12/15/24 14:08 92 12/15/24 14:06 93 H 26 H 12/15/24 14:02 38.5 C H 92 H 20 100/50 L 92 12/15/24 14:01 133/49 L 12/15/24 14:00 96 H 16 93 12/15/24 13:36 88 24 90 12/15/24 13:30 106/56 L 12/15/24 13:25 88 18 124/64 90 12/15/24 13:21 93 H 22 90 12/15/24 13:19 95 H 12/15/24 13:03 92 12/15/24 12:53 38.5 C H 92 H 22 134/65 92 O2 Del Method 12/15/24 16:36 12/15/24 16:30 Room Air 12/15/24 15:03 12/15/24 15:01 12/15/24 14:59 Room Air 12/15/24 14:57 12/15/24 14:30 12/15/24 14:08 Room Air 12/15/24 14:06 12/15/24 14:02 Room Air 12/15/24 14:01 12/15/24 14:00 12/15/24 13:36 12/15/24 13:30 12/15/24 13:25 Room Air 12/15/24 13:21 12/15/24 13:19 12/15/24 13:03 Room Air 12/15/24 12:53 Room Air Laboratory Results Short CBC 12/15/24 Range/Units 14:02 WBC 20.81 H (4.8-10.8) K/ul Hgb 10.7 L (12.0-16.0) g/dl Hct 32.3 L (37.0-47.0) % Plt Count 261 (130-400) K/uL BMP 12/15/24 14:02 Sodium 135 L Potassium 4.3 Chloride 98 Carbon Dioxide 31 BUN 25 H Creatinine 1.07 Glucose 124 H Calcium 8.7 Liver Function 12/15/24 Range/Units 14:02 Total Bilirubin 0.3 (0.2-1.0) mg/dl AST 13 (13-39) U/L ALT 12 (7-52) U/L Alkaline Phosphatase 131 H (34-104) U/L Albumin 3.4 (3.4-5.0) gm/dl Urine 12/15/24 Range/Units Unknown Urine Color Dark Yellow Urine Appearance Cloudy A (Clear) Urine pH 8.5 H (4.5-7.5) Ur Specific [place] 1.026 (1.000-1.030) Urine Protein 2+ H (Negative) Urine Glucose (UA) Negative (Negative) I have independently reviewed and interpreted patient's admitting labs including CBC, CMP, UA Code Status & VTE Plan Code Status Full Code Supervising Physician Co-Signing Physician Notes Patient is a 59-year-old female with history of intellectual disability, nonverbal at baseline, epilepsy, autism, GERD and other medical problems presents with history of change in mental status. As patient is nonverbal, most of the history is obtained from patient's tar heater at bedside. Patient was noted to be more lethargic today and she also has been incontinent with stool which is unusual for her. Patient also had minimal cough and was found to be tachypneic and hypoxic on room air. No known history of aspiration. Seizures have been well-controlled as per tar heater. Please review HPI for complete details of presentation. I personally reviewed blood work and imaging studies. Noted leukocytosis, elevated procalcitonin, normocytic anemia, Sodium 135. Urinalysis suggestive of possible UTI. BioFire negative. Chest x-ray suggestive of right upper lobe pneumonia. CT head showed no acute findings. CT abdomen showed 6 mm left proximal ureteral stone and findings suggestive uterine fibroids. Physical Exam: Vitals signs as noted above General Appearance:Moderately built and nourished, no apparent distress, lethargic Head: normocephalic, Atraumatic Eyes: normal inspection, EOMI Neck: supple, Trachea midline Respiratory/Chest: Normal breath sounds, CTA, No accessory muscle use Cardiovascular: S1, S2, No murmur, tachycardia Abdomen/GI:Soft, Non tender, Bowel sounds present Extremities/Musculoskeletal:normal inspection, no edema, chronic tremor, tardive dyskinesia movements Neurologic/Psych: Nonverbal, grossly moves all extremities, does not follow commands, lethargic Skin: normal color, warm Sepsis Complicated urinary tract infection Obstructive uropathy with left proximal ureteral stone Community-acquired pneumonia Normocytic anemia Mild hyponatremia Acute metabolic encephalopathy Agree with broad-spectrum IV antibiotics will change IV cefepime to Zosyn given history of epilepsy Continue IV doxycycline Continue IV fluids Strain urine, consulted urology Blood, urine cultures pending Normal lactate levels Bio fire negative Fall, aspiration precautions Nebs as needed If clinically no improvement, will consider MRI brain Monitor sodium levels closely Request speech Therapy rosa iselaal I personally interviewed and examined the patient at bedside. I have reviewed the advanced practitioner's documentation on the date of service referred in note and agree with plan. Patient's care is coordinated with Karen VILLASEÑOR. Please refer to the documentation above for details of patient's presentation and for discussion of other issues. I spent a total [id number] coordinating, documenting, and providing care for this patient excluding time spent in the performance of separately billed services or time spent by another provider/QHP. (2) Pneumonia Laterality: right Lung location: middle lobe of lung Pneumonia type: due to unspecified organism Qualified Code(s): J18.9 - Pneumonia, unspecified organism
--- OUTSIDE RECORDS SUMMARY | 2024-12-15 18:22 | External Medical Summary | Summary of Care ---
Author Name Unknown Organization [facility] Address [address] [place] [address] Phone [phone] Care Team Providers Care Liquor Grinder Mill Operator Name Role Phone Josh Holman MD Primary Care Provider [phone] Reason for Visit * Reason Comments Evaluation Encounter Details Date Type Department Care Team (Late st Contact Info) Description 11/18/2024 1:45 PM EDT [facility] [address], [place] [id number] Kody Dallas, DMD [address], [place] [phone] Encounter for dental examination* Allergies Active Allergy Reactions Criticality Noted Date Comments Naproxen 11/18/2024 Nsaids 09/04/2000 Naproxen only Is able to take advil without complications Other Allergy (See Comments) 12/18/2021 Stimulants documented as of this encounter (statuses as of 11/18/2024) Medications Fructose-Dextrose -Phosphor Acd (EMETROL) 1.87-1.87-21.5 SOLN Take 2 tablespoons by mouth every 15 minutes or until distress subsides 30 mL 0 6 Active loperamide (IMODIUM) 2 MG Capsule 2 caps by mouth after 1st loose stool then 1 by mouth after each loose stool as needed 30 Cap 0 6 Active Aloe Vera GEL Apply topically to affected area daily as needed (sunburn). Apply to affected area 6 Active QUEtiapine Fumarate 200 MG Oral TabletIndications :Agitation One pill at 8 pm 30 Tab 1 6 Active Phenylephrine HCl 10 MG Oral Tablet One tab every 4 hours as needed 8 Active Alum & Mag Hydroxide-Simeth 200-200-20 MG/5ML Oral Suspension 2 tsp between meals and at bedtime as needed 1 Bottle 1 8 Active hydrocortisone 1 % cream Apply topically to affected area 3 times a day as needed. For rash. Unsure of dose 15 g 1 8 Active Sertraline HCl 25 MG Oral Tablet Take 4 Tablets by mouth in the morning. Active Perphenazine 4 MG Oral Tablet (Trilafon)Indicat ions:Severe intellectual disabilities 2 Tablets at bedtime. 3 Active Famotidine 40 MG Oral Tablet (Pepcid)Indicatio ns:Gastroesophage al reflux disease without esophagitis TAKE 1 TABLET BY MOUTH ONCE DAILY 31 Tablet 5 4 Active Perphenazine 2 MG Oral Tablet (Trilafon) Take 1 Tablet by mouth in the morning. Active Sodium Fluoride 1.1 % Dental Cream (Denta 5000 Plus) Use a pea size amount twice daily as toothpaste 153 g 4 4 Active Chlorhexidine Gluconate 0.12 % Mouth/Throat Solution (Periogard) Use 3 times a week. Swab on teeth / gums after brushing. 473 mL 5 4 Active Multivitamin Oral Tablet TAKE ONE TABLET BY MOUTH IN THE MORNING 31 Tablet 4 Active Oyster Shell Calcium w/D 500-5 MG-MCG Oral Tablet TAKE ONE TABLET BY MOUTH IN THE MORNING 31 Tablet 11 4 Active Acetaminophen 500 MG Oral Tablet (Tylenol)Indicati ons:Personal history of fall,Other secondary scoliosis, thoracic region,Other abnormalities of gait and mobility TAKE 1 TABLET BY MOUTH ONCE DAILY IN THE MORNING FOR PAIN 31 Tablet 11 4 Active Docusate Sodium 100 MG Oral Capsule (Colace)Indicatio ns:Other constipation TAKE 1 CAPSULE BY MOUTH IN THE MORNING AND AT BEDTIME HOLD IF ANY LOOSE STOOLS 62 Capsule 11 4 Active lamoTRIgine 100 MG Oral Tablet (LaMICtal)Indicat ions:Generalized convulsive epilepsy without intractable epilepsy (HCC),Frequent falls TAKE 1/2 TABLET BY MOUTH TWICE DAILY 31 Tablet 4 4 Active levETIRAcetam 1000 MG Oral Tablet TAKE 1 TABLET BY MOUTH AT 8 AM AND 1 TABLET AT 8 PM 62 Tablet 4 4 Active levETIRAcetam 500 MG Oral Tablet (Keppra)Indicatio ns:Generalized convulsive epilepsy without intractable epilepsy (HCC) TAKE 1 TABLET BY MOUTH AT 8 AM AND 1 TABLET AT 8 PM. 62 Tablet 4 4 Active lamoTRIgine 200 MG Oral Tablet (LaMICtal) TAKE 1 TABLET BY MOUTH IN THE MORNING AND AT BEDTIME 62 Tablet 4 4 Active cloBAZam 10 MG Oral Tablet (Onfi)Indications :Seizures (HCC) TAKE 1/2 TABLET BY MOUTH AT BEDTIME 16 Tablet 5 4 Active Polyethylene Glycol 3350 17 GM/SCOOP Oral Powder (Miralax)Indicati ons:Other constipation USE 1 CAPFUL (17GM) DISSOLVED IN 8 OZ OF WATER BY MOUTH DAILY MAY HOLD FOR LOOSE STOOLS 238 g 11 4 Active FiberCon 625 MG Oral Tablet (Calcium Polycarbophil) Take 1 Tablet by mouth in the morning. 30 Tablet 12 5 Active Austedo XR 36 MG Oral Tablet Extended Release 24 Hour Take 1 Tablet by mouth every evening. 5 Active QUEtiapine Fumarate 50 MG Oral Tablet (SEROquel) Take 1 Tablet by mouth. morning Active Glycopyrrolate 1 MG Oral Tablet (Robinul) Take 1 Tablet by mouth in the morning and 1 Tablet at noon and 1 Tablet before bedtime. 93 Tablet 3 5 Active documented as of this encounter (statuses as of 11/18/2024) Active Problems Problem Noted Date Diagnosed Date Mass of upper outer quadrant of right breast 08/2024 Urinary incontinence, overflow 06/02/2023 Fecal incontinence not due to organic disease Left nephrolithiasis 04/07/2022 Lesion of right lobe of liver 04/07/2022 Autism 03/26/2022 Obsessive-compulsive disorder 03/26/2022 Recurrent major depressive disorder, in remissio n 03/26/2022 Other secondary scoliosis, thoracic region 03/26 Fecal occult blood test positive 03/07/2022 Encounter for screening mammogram for breast can cer 11/05/2021 Overview (11/05/2021): -gets every 2 yrs per caregiver at [facility] Other constipation 01/13/2018 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 Esophageal reflux 02/28/2010 11/05/2016 fullness pancreatic tail 10/03/200810/2021 Behavioral problems 03/30/2008 11/04/19 12 Overview (11/02/2015): ICD-10 update of inactive term CONTUSION OF SCALP, POSTERIOR 07/26/2007 02/28/2010 Head injury 07/26/2007 05/12/2017 Overview (05/19/2017): ICD-10 update of inactive term Spontaneous ecchymoses 04/08/200302/28 GENERALIZED CONVULSIVE EPILE PSY; WITHOUT MENTION OF INTRACTABLE EPILEPSY 03/17/20 20 documented as of this encounter (statuses as of 11/18/2024) Immunizations Name Administration Dates Next Due COVID-19 mRNA, LNP-s, No Pre serve, 2-Dose Series (Moderna) 10/13/2020,09/08/2020 COVID-19, MRNA-LNP, 24-25, P F, 50 MCG/0.5ML, IM, 12 YRS & ABOVE (Moderna - Spikevax) 05/21/2024 COVID-19, MRNA-LNP, 24-25, P R, 30MCG/0.3ML, IM, 12YRS AND ABOVE (Pfizer-Comirnaty) 05/25/2024 COVID-19, MRNA-LNP, PF, 50 M CG/0.5 mL, 12 YRS AND ABOVE, IM (MODERNA-Spikevax) 05/27/2023 COVID-19, mRNA, LNP-s, PF, B ooster, 100mcg/0.5mg (Moderna) 03/26/2022,07/06/2021 Covid-19, Mrna, Lnp-s, Pf, B ivalent, 30 Mcg, IM, 12 yrs and above (Pfizer) 10/17/2022 H1N1 2009 Influenza, IM 06/23/2009 PPD 09/30/2023,,03/17/2020,2018,10/20/2017,11/01/2015,11/02/2013,0 11/04/2011,11/08/2009,11/01/2009, 006 Pneumococcal Conjugate Vacci ne, 20-valent ([id number]) 10/07/2022 Seasonal Influenza Vac, Quad , Cell culture, with Preserve, 6 mon and above, (Flucelvax) 05/25/2024 Seasonal Influenza Vac., MDV , IM, 0.5 mL (Fluzone) 05/23/2014,05/07/2013,05/11/2012,2010,05/25/2010,07/12/2008,06/30/2007,1 08/30/2005 Seasonal Influenza Virus Vac cine, Unspecified Formulation 05/21/2024,07/27/2023,04/22/2019,2017,04/23/2017,05/01/2016,05/23/2014,0 05/07/2013,05/11/2012,05/06/2011, 010,07/12/2008,06/30/2007,06/30/2006, Seasonal Influenza, PF, 6 M & above, IM , (FluLaval or Fluzone) 06/06/2022,04/22/2019,05/15/2018 Seasonal Influenza, Quadriva lent, No Preserve, IM 06/08/2021,05/27/2020,04/23/2017,2015,05/25/2015 Seasonal Influenza, Quadriva lent, No Preserve, Mdck 05/27/2023 TD - Tetanus/Diptheria (ADULT) 10/18/2005 TDAP (age 10 and older)(Boostrix) 11/01/2015 Zoster Vaccine Recombinant (Shingrix) 12/12/2020 ,07/18/2020,09/13/2019 documented as of this encounter Social History Tobacco Use Types Packs/Day Years Used Date Smoking Tobacco: Never Smokeless Tobacco: Never Alcohol Use Standard Drinks/Week Comments No 0 (1 standard drink = 0.6 oz pur e alcohol) PHQ-2 Answer Date Recorded PHQ Adult Total Score 0 03/19/2021 Hunger Vital Sign Answer Date Recorded Worried About Running Out of Food in the Last Ye ar Never true 05/31/2019 Ran Out of Food in the Last Year Never true 05/31/2019 Comments No Sex and Gender Information Value Date Recorded Sex Assigned at Female 03/02/2019 2:36 PM EDT Legal Sex Female 4:56 AM EST Gender Identity Female 03/02/2019 2:36 PM EDT Sexual Orientation Straight 12/18/2021 10 :36 AM EDT Sexual Orientation Don't know 12/18/2021 10 :36 AM EDT documented as of this encounter Functional Status * Are you deaf or do you have serious difficulty hearing? Answer Date of Assessment Author No 07/30/2016 1:00 PM EST Yessenia, Mi randolph, ALINA * Are you blind or do you have serious difficulty seeing, even when wearing glasses? Answer Date of Assessment Author No 07/30/2016 1:00 PM EST Yessenia, Mi randolph, ALINA * Do you have serious difficulty walking or climbing stairs? (5 years old or older) Answer Date of Assessment Author Yes 07/30/2016 1:00 PM EST Yessenia, Mi randolph, ALINA * Do you have difficulty dressing or bathing? (5 years old or older) Answer Date of Assessment Author Yes 07/30/2016 1:00 PM EST Yessenia, Mi randolph, ALINA * Because of a physical, mental, or emotional condition, do you have difficulty doing errands alone such as visiting a doctor’s office or shopping? (15 years old or older) Answer Date of Assessment Author Yes 07/30/2016 1:00 PM EST Yessenia, Mi randolph, ALINA documented as of this encounter Mental Status * Because of a physical, mental, or emotional condition, do you have serious difficulty concentrating, remembering, or making decisions? (5 years old or older) Answer Entry Date Author Yes 07/30/2016 1:00 PM EST Yessenia, Mi randolph, ALINA documented in this encounter Progress Notes * Kody Dallas DMD - 11/18/2024 1:57 PM EDT Pt presents with 2 caregivers. Brief oral exam - no plaque or calculus. No need for OR Dentistry. Pt has denta 5000 and peridex. Appt 12 months. Kody Dallas D.M.D. documented in this encounter Nursing Notes * Elvie Cowart TECH - 11/18/2024 1:51 PM EDT Reviewed medical history with patient. Medical changes noted, see updated questionnaire. Asked patient status before taking x-ray No, patient is not . RETURN EDUCATION SCREENING Today's Date: 11/18/2024 Understands Current Diagnosis: Yes Understands Current Treatment: Yes Recheck Education Screening for Patient Barrier to Learning: Unchanged Learning Need: POI Person Taught: Patient Method: Lecture Outcome: State/Describe/Explain Comments: none TIME OUT. Patient was identified by two methods. Procedure was identified, verified and reviewed with patient. Unable to verify health history pt is here with her caregivers documented in this encounter Plan of Treatment Upcoming Encounters Date Type Department Care Team (Late st Contact Info) Description 11/23/2024 2:15 PM EDT Office Visit Interventional Pain Center [facility] [address] [place] [phone] Humberto Rodríguez DO [address] [place] [phone] 04/04/2025 2:00 PM EDT Office Visit Family Practice [facility] [address] [place] [address] Josh Holman MD [address] [facility] [place] [address] 05/09/2025 1:15 PM EDT [facility] [address] [place] [address] 06/22/2025 3:15 PM EST Office Visit Urology, [facility] [address] [place] [phone] Kwasi Dorsey MD [address] [place] [address] 10/31/2025 1:00 PM EDT Office Visit Neurology [facility] [place] [address] [place] [address] Ines Richardson MD [address] [place] [address] Health Maintenance Due Date Last Done Comments Depression Monitoring 1977 Cologuard 2010 Colonoscopy 2010 Sigmoidoscopy 2010 COVID-19 Vaccine ( season) 2024 05/25/2024, 05/21/2024, 05/21/2024, Additional history exists Colorectal Cancer Screening 10/26/2024 Fecal Occult Blood Test 10/26/2024 10/27/19 24, 10/27/2023, 03/26/2022, Additional history exists Mammogram 10/12/2025 10/12/2024, 09/18, 10/02/2022, Additional history exists DTap/Tdap Vaccines (2 - Td or Tdap) 10/31/2025 11/01/2015, 10/18/2005, 12/16/1995 Diabetes Screening 10/04/2027 10/04/2024, 1 , 09/30/2023, Additional history exists Lipid Panel 10/04/2029 10/04/2024, 09/18, 02/06/2023, Additional history exists Zoster Vaccines Completed 12/12/2020, 08/2019, 09/13/2019 Pneumococcal Vaccine: 50+ Years Completed 10/07/2022, 10/12/2003 Influenza Vaccine (FLU shot) Completed 05/25/2024, 05/21/2024, 07/27/2023, Additional history exists HIV Screening Discontinued HPV (Gardasil) Vaccine Aged Out No lo nger eligible based on patient's age to complete this topic Hepatitis B Vaccine Discontinued MENINGOCOCCAL (MENACTRA/MENVEO) Aged Out No longer eligible based on patient's age to complete this topic Meningitis B Vaccine (Bexsero/Trumemba) Aged Out No longer eligible based on patient's age to complete this topic documented as of this encounter Medical Devices Not on filedocumented as of this encounter Visit Diagnoses Diagnosis Encounter for dental examination- Primary Dental examination documented in this encounter Advance Directives Documents on File Type Date Recorded Patient Base Draw Operator Expl anation Power of Veterans Employment Representative 10/06/2024 2:34 PM poa * Full Code (Latest Code Status on File) Date Activated Date Inactivated Comments 01/02/2015 1:52 PM 01/05/2015 7:23 PM This order r eflects the patients wishes and were consensually agreed upon. Question Answer Comments Discussion of Advance Direct leonidas occurred with: Family Does the patient have a Living Will? No Does the patient have Health Care Power of Veterans Employment Representative? Yes, in chart and reviewed as current Care Teams Liquor Grinder Mill Operator Relationship Specialty Start Date End Date Josh Holman MD [address] [place] [address] PCP - General Family Medicine 11/08/24 documented as of this encounter
--- OUTSIDE RECORDS SUMMARY | 2024-12-15 18:22 | External Medical Summary | Summary of Care ---
Author Name Unknown Organization [facility] Address [address] [place] [address] Phone [phone] Care Team Providers Care Astrophysics Teacher Name Role Phone Courtney Donato MD Primary Care Provider [phone] Reason for Visit * Reason Comments Outpatient Testing Encounter Details Date Type Department Care Team (Late st Contact Info) Description 11/23/2024 3:20 PM EDT Laboratory Laboratory, [facility] [address] [place] [address] [facility] [address] [place] [address] History of measles, mumps, rubella (MMR) vaccination unknown Allergies Active Allergy Reactions Criticality Noted Date Comments Naproxen 11/18/2024 Nsaids 09/04/2000 Naproxen only Is able to take advil without complications Other Allergy (See Comments) 12/18/2021 Stimulants documented as of this encounter (statuses as of 11/23/2024) Medications Fructose-Dextrose -Phosphor Acd (EMETROL) 1.87-1.87-21.5 SOLN [...] 15 g 1 8 Active Sertraline HCl 100 MG Oral Tablet (Zoloft) Take 1 Tablet by mouth in the morning. Active Perphenazine [...] THE MORNING 31 Tablet 11 4 Active Oyster Shell Calcium w/D 500-5 [...] as of this encounter (statuses as of 11/23/2024) Active Problems Problem Noted Date Diagnosed Date [...] -gets every 2 yrs per caregiver at [facility] Other constipation 01/13/2018 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 Severe intellectual disabilities documented as of this encounter (statuses as of 11/23/2024) Resolved Problems Problem Noted Date Diagnosed Date [...] as of this encounter (statuses as of 11/23/2024) Immunizations Name Administration Dates Next Due COVID-19 [...] 11/04/2011,11/08/2009,11/01/2009, 006 Pneumococcal Conjugate Vacci ne, 20-valent ([id number]) 10/07/2022 Seasonal Influenza Vac, Quad , Cell [...] Mi randolph, ALINA documented in this encounter Plan of Treatment Upcoming Encounters Date Type Department Care Team (Latest Contact Info) Description 11/30/2024 11:43 AM EDT Hospital Encounter OR [facility], Operating Room, [facility] - 4th Floor [address] [place] [phone] Humberto Rodríguez, DO [address] [place] [phone] 11/30/2024 11:43 AM EDT - 11/30/2024 12:06 PM EDT Surgery [address] [facility], Operating Room, [facility] - 4th Floor [address] [place] [phone] Humberto Rodríguez, [address] [place] [phone] ARTHROCENTESIS OR INJECTION MAJOR JOINT 04/04/2025 2:00 PM EDT Office Visit Family Practice [facility] [address] [facility] [place] [address] Josh Holman MD [address] [facility] [place] [address] 05/09/2025 1:15 PM EDT [facility] [address] [facility] [place] [address] 06/22/2025 3:15 PM EST Office Visit Urology, [facility] [address] [facility] [place] [phone] Kwasi Dorsey MD [address] [facility] [place] [address] 10/31/2025 1:00 PM EDT Office Visit Neurology [facility] [address] [facility] [place] [address] Ines Richardson MD 200 [place] [address] Pending Results Name Type Priority Associated Diagnoses Date /Time RUBEOLA (MEASLES) IGG ANTIBODY Lab Routine History of measles, mumps, rubella (MMR) vaccination unknown 11/23/2024 3:11 PM EDT Scheduled Procedures Name Priority Associated Diagnoses Date/Ti wi ARTHROCENTESIS OR INJECTION MAJOR JOINT Primary osteoarthritis of right hip 11/30/2024 11:43 AM EDT FLUROSCOPIC GUIDANCE AND LOCALIZATION OF NEEDLE OR CATHETER TIP FOR SPINE OR PARASPINOUS DIAGNOSTIC Primary osteoarthritis of right hip 11/30/2024 11:43 AM EDT Health Maintenance Due Date Last Done Comments [...] Additional history exists Zoster Vaccines Completed 12/12/2020, 12/08/2019, 09/13/2019 Pneumococcal Vaccine: 50+ Years Completed 10/07/2022, [...] as of this encounter Visit Diagnoses Diagnosis History of measles, mumps, rubella (MMR) vaccination unknown Primary osteoarthritis of right hip Primary localized osteoarthrosis, pelvic region and thigh documented in this encounter Advance Directives Documents on File Type Date Recorded Patient Diagnostic Sales Specialist Expl anation Power of Logistics Operations Manager 10/06/2024 2:34 PM poa * Full Code (Latest Code Status on File) Date Activated Date Inactivated Comments 01/02/2015 1:52 PM 01/05/2015 7:23 PM This order r eflects the patients wishes and were consensually agreed upon. Question Answer Comments Discussion of Advance Direct leonidas occurred with: Family Does the patient have a Living Will? No Does the patient have Health Care Power of Logistics Operations Manager? Yes, in chart and reviewed as current Care Teams Astrophysics Teacher Relationship Specialty Start Date End Date Courtney Donato MD [address] [place] [address] PCP - General Internal Medicine 11/23/24 documented as of this encounter
--- OUTSIDE RECORDS SUMMARY | 2024-12-15 18:22 | External Medical Summary ---
Author Name Unknown Address Unknown Organization : Laboratory Report Ordering Provider Test Date Status CLARK CHRISTENSEN 11/04/2024 15:06:11 Final Observation Date Value Abnormality Reference (Units ) Status CLOBAZAM, SERUM/PLASMA 11/04/2024 15:06:11 80 (ng/mL) Final Reporting Limit: 20 ng/mL
Synonym(s): Urbanyl(R); Sympazan; Frisium(R); Onfi(R)
Clobazam is a benzodiazepine drug used as an
anxiolytic and antiseizure medication. It is also
employed as an adjunctive therapy for the treatment of
seizures in patients with Huntington-Gastaut syndrome.
The average (range) peak plasma concentrations
reported following a single 20 mg dose was 465
(222-709) ng/mL.
Reported average steady-state plasma concentrations of
1076 ng/mL and 2884 ng/mL were reported following 40
mg/day and 160 mg/day doses, respectively.
The mean concentrations of clobazam did not differ
between [id number] extensive and poor metabolizers. The
recommended therapeutic range for clobazam is 30-300
ng/mL.
Analysis by High Performance Liquid Chromatography/
Tandem Mass Spectrometry (LC-MS/MS) DESMETHYLCLOBAZAM S/P 11/04/2024 15:06:11 430 (ng/mL) Final Reporting Limit: 30 ng/mL
Synonym(s): Clobazam Metabolite
N- desmethylclobazam is the primary pharmacologically
active metabolite of Clobazam, a benzodiazepine drug
used as an anxiolytic and antiseizure medication.
The average (range) peak plasma concentrations
reported following a single 20 mg dose was 88 (61-146)
ng/mL.
Reported average steady-state serum/plasma
concentrations of 2783 ng/mL and 05415 ng/mL were
reported following 40 mg/day and 160 mg/day doses,
respectively. Excluding poor metabolizers decreased
the mean N-desmethylclobazam concentration.
The N-desmethylclobazam/clobazam ratio has been
reported to be 5 times higher in poor metabolizers
than in extensive metabolizers. The recommended
therapeutic range for N-desmethylclobazam is 300-3000
ng/mL.
Poor metabolizers or patients on CY inducers
and/or [id number] inhibitors have been reported to have
elevated concentrations of N-desmethylclobazam and
increased adverse reactions.
Analysis by High Performance Liquid Chromatography/
Tandem Mass Spectrometry (LC- MS/MS)
This test was developed and its performance
characteristics determined by [facility]. It has not
been cleared or approved by the [place] Food and Drug
Administration.
Digital data review may have taken place remotely by
qualified [facility] staff utilizing a secure VPN connection
for some or all of the reported results. This is in
accordance with and follows CLIA regulations.
Test performed by [facility]
[address] [facility]
[place] [address]

Fernandez Enriquez, Ph.D, F-ABFT, DABCC-,
Farm Loan Inspector
Test Reported by [facility],
[facility],
[address] [place], [place]
Cuate Waterman M.D., Ph.D., Director of Laboratories
, [facility] [id number] Performing Location
--- OUTSIDE RECORDS SUMMARY | 2024-12-15 18:22 | External Medical Summary | Summary of Care ---
Author Name Unknown Organization [facility] Address [address] [place] [address] Phone [phone] Care Team Providers Care Shrimp Boat Captain Name Role Phone Courtney Donato MD Primary Care Provider [phone] Reason for Visit * Auth/Cert Specialty Diagnoses / Procedures Referred By Jose posada Referred To Contact Diagnoses Primary osteoarthritis of right hip Primary osteoarthritis of right hip [M16.11] Procedures ARTHROCENT ASP &/OR INJ MAJOR JX/BURSA W/O US FLUORO GUIDED SPINE INJECTION ARTHROCENTESIS OR INJECTION MAJOR JOINT FLUROSCOPIC GUIDANCE AND LOCALIZATION OF NEEDLE OR CATHETER TIP FOR SPINE OR PARASPINOUS DIAGNOSTIC Humberto Rodríguez, DO [address] [place] [address] Phone: tel: fax: OR [facility], Operating Room, [facility] - 4th Floor [address] [place] [address] Phone: tel: Referral ID Status Reason Start Date Expiration Date Visits Re quested Visits Authorized [id number] Encounter Details Date Type Department Care Team (Latest Contact Info) Description 11/30/2024 10:49 AM EDT - 11/30/2024 2:13 PM EDT Hospital Encounter [facility], Operating Room, [facility] - 4th Floor [address] [place] [address] Humberto Rodríguez, DO [address] [place] [address] [facility]charge Disposition: [facility] Allergies Active Allergy Reactions Criticality Noted Date Comments Naproxen 11/18/2024 Nsaids 09/04/2000 Naproxen only Is able to take advil without complications Other Allergy (See Comments) 12/18/2021 Stimulants documented as of this encounter (statuses as of 12/01/2024) Medications Fructose-Dextrose -Phosphor Acd (EMETROL) 1.87-1.87-21.5 SOLN [...] 24 Hour Take 1 Tablet by mouth in the morning. 5 Active QUEtiapine Fumarate 50 MG Oral Tablet (SEROquel) Take 1 Tablet by mouth. morning Active Glycopyrrolate 1 MG Oral Tablet (Robinul) Take 1 Tablet by mouth in the morning and 1 Tablet at noon and 1 Tablet before bedtime. 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 Severe intellectual disabilities documented as of this encounter (statuses as of 12/01/2024) Resolved Problems Problem Noted Date Diagnosed Date [...] as of this encounter (statuses as of 12/01/2024) Immunizations Name Administration Dates Next Due COVID-19 [...] 11/04/2011,11/08/2009,11/01/2009, 006 Pneumococcal Conjugate Vacci ne, 20-valent ([id number]) 10/07/2022 Seasonal Influenza Vac, Quad , Cell [...] AM EDT documented as of this encounter Last Filed Vital Signs Vital Sign Reading Time Taken Comments Blood Pressure 140/96 11/30/2024 2:03 PM EDT Pulse 91 11/30/2024 2:03 PM EDT Temperature 36.6 °C (97.9 °F) 11/30/2024 2:03 PM ED T Respiratory Rate 17 11/30/2024 2:03 PM EDT Oxygen Saturation 98% 11/30/2024 2:03 PM EDT Inhaled Oxygen Concentration - - Weight 61.7 kg (136 lb) 11/30/2024 11:12 AM EDT Height 147.3 cm (4' 10") 11/30/2024 11:12 AM EDT Body Mass Index 28.42 11/30/2024 11:12 AM EDT documented in this encounter Functional Status * Are you deaf or do you have serious difficulty hearing? Answer Date of Assessment Author No 07/30/2016 1:00 PM EST Dominga Casas, ALINA * Are you blind or do you have serious difficulty seeing, even when wearing glasses? Answer Date of Assessment Author No 07/30/2016 1:00 PM EST Dominga Casas, ALINA * Do you have serious difficulty walking or climbing stairs? (5 years old or older) Answer Date of Assessment Author Yes 07/30/2016 1:00 PM EST Dominga Casas, ALINA * Do you have difficulty dressing or bathing? (5 years old or older) Answer Date of Assessment Author Yes 07/30/2016 1:00 PM Dominga Samuels, ALINA * Because of a physical, mental, or emotional condition, do you have difficulty doing errands alone such as visiting a doctor’s office or shopping? (15 years old or older) Answer Date of Assessment Author Yes 07/30/2016 1:00 PM Dominga Samuels, ALINA documented as of this encounter Mental Status * Because of a physical, mental, or emotional condition, do you have serious difficulty concentrating, remembering, or making decisions? (5 years old or older) Answer Entry Date Author Yes 07/30/2016 1:00 PM Dominga Samuels, ALINA documented in this encounter Discharge Instructions * Discharge Instr - AVS* Humberto Rodríguez, - 11/30/2024 1:[address] [facility] [address] [place] [address] [place] [address] Discharge Date: 11/30/2024 You may call [facility] at [phone] during business hours. For after-hours emergencies call 911. Your attending physician at the time of your discharge was: Humberto Rodríguez DO [address] [facility] [place] [address] The information below provides you with the instructions and the list of medications you need to betaking following discharge from the hospital. If you have any questions, please ask before leaving.Please carry this letter with you when you see your doctor in the clinic. Diet: Resume your normal diet If you are diabetic, follow your blood sugars closely for next 2-3 days as they are likely to be elevated. If you are having difficulty controlling your blood sugars call your family doctor or the physician that treats your diabetes. Activity: Do not engage in strenuous activity today Resume your normal activities tomorrow Do not soak in water for 24 hours. No swimming, hot tub or bath but showering is allowed. Do not use heat on the injection site for 24 hours. If uncomfortable ice may be helpful. Some injections may make your arms or legs weak for a few hours. Be extremely careful when walking or changing positions that you do not fall. Have someone assist you for the next 6 hours. If weakness or numbness becomes progressive CALL IMMEDIATELY or GO TO THE NEAREST EMERGENCY ROOM Do not restart physical therapy or chiropractic manipulation until 48 hours after your injection Call : If weakness or numbness suddenly becomes worse or become progressive If the injection site becomes red, swollen, warm to the touch, begins to bleed or drain fluid, or is excessively painful. If you have any questions Medications: Resume all the medications you were taking prior to your injection. Resume your anticoagulants tomorrow unless otherwise instructed by your family physician, community engagement coordinator or the anticoagulation clinic Additional Instructions: None Driving: You may resume driving in 12-24 hours if no weakness is noted . Date you may return to work or school: N/A Follow Up: You can expect a telephonic follow-up nursing call on 01/25/2025. documented in this encounter Progress Notes * Humbetro Rodríguez DO - 11/30/2024 1:35 PM EDT [address] [address] OUTPATIENT SURGERY DISCHARGE SUMMARY NOTE Name: Ines Delatorre Location: [facility] Date: 11/30/2024 Time: 1:36 PM Surgery Date: 11/30/2024 Procedure: ARTHROCENTESIS OR INJECTION MAJOR JOINT, FLUROSCOPIC GUIDANCE AND LOCALIZATION OF NEEDLEOR CATHETER TIP FOR SPINE OR PARASPINOUS DIAGNOSTIC Right Right Surgeon: Humberto Rodríguez DO Discharge Diagnosis: chronic right hip pain After examination of this patient, I have determined she is ready for discharge to home when the patient meets criteria. Discharge instructions were given to the patient. Humberto Rodríguez DO [facility], Operating Room, [facility] - 4th Floor [address] [place] [phone] documented in this encounter H&P Notes * Anne Humberto Zayas DO - 11/30/2024 12:39 PM EDT Interventional Pain H&P Subjective: History of Present Illness: Ines Delatorre is a 59 year old year-old female with a past medical history significant for chronic right osteoarthrtic hip pain who is presenting for right hip IA injection today to improve her pain and function. her pain is essentially unchanged since our last office visit with her. ASA 3 AW nml Review of Systems: A focused 12-pt ROS were of reviewed with the patient including difficulty with sleep, snoring, aspiration history, dysphagia, stomach pain, nausea and vomiting, severe headaches, confusion, open skin lesions or wounds, chest pain, shortness of breath, excessive thirst, somnolence, dysuria, incomplete bladder emptying, easy bruising, recent clotting problems or bleeding, depression or rushed thoughts unless noted previously. Review of patient's allergies indicates: Allergen Reactions Naproxen Nsaids Naproxen only Is able to take advil without complications Other Allergy (See Comments) Stimulants Medications, Past Medical History, Past Surgical History reviewed and documented in Epic. See detailed report if needed. Pertinent Labs/Test Results: INR (no units) Date Value 04/08/2003 .98 No results found for: "CREATININE" Hemoglobin A1C (%) Date Value 09/13/2022 5.2 05/21/2018 5.5 No results found for: "AMPHETAMINE", "BARBITURATES", "BENZODIAZEPINES", "BUPRENORPHINE", "METHADONE", "OPIATES", "OXYCODONE", "PHENCYCLIDINE", "CANNABINOIDS", "TOX SCREEN", "URINE", "TOX SCREEN-SERUM", "TOX SCREEN, URINE" US BREAST LIMITED RIGHT, MAMMOGRAM DIAGNOSTIC EDUAR RIGHT Result MAMMOGRAM DIAGNOSTIC EDUAR RIGHT US BREAST LIMITED RIGHT History Abnormal mammogram The patient has no documented relevant family history. Films Compared 10/04/2024 MAMMOGRAM SCREENING BILATERAL, 10/02/2022 MAMMOGRAM SCREENING BILATERAL, 11/07/2020 US BREAST LIMITED RIGHT, 10/10/2020 MAMMOGRAM SCREENING BILATERAL, and 04/08/2019 MAMMOGRAM SCREENING BILATERAL Findings MAMMOGRAM DIAGNOSTIC EDUAR RIGHT/US BREAST LIMITED RIGHT Best obtainable mammographic and sonographic images are submitted for review in this nonverbal patient with seizure disorder. Two technologists as well as the patient's caregiver Rochelle were needed for this examination. Mammogram was performed in the patient's wheelchair. The breast is heterogeneously dense, which may obscure small masses. Low-density circumscribed right upper outer quadrant 15 mm mass persists on today's additional views. Targeted ultrasound demonstrates a hypoechoic wider than tall mass right breast ten o'clock 6 cm from the nipple measuring 16 x 7 by 12 mm. Impression Hypoechoic mass right breast ten o'clock. Differential includes a fibroadenoma. Option of six-month follow-up versus biopsy was discussed with the patient and her caregiver. Six-month follow-up ultrasound is recommended at this time. BI-RADS® Category: 3 - Probably Benign. Recommendation Follow-up ultrasound in 6 months is recommended for the right breast. The above findings and recommendations were relayed to the patient and her caregiver Rochelle at time of examination completion by Dr. Xie on October 12, 2024 Digital breast tomosynthesis was performed. This digital mammogram has been analyzed with the computer aided detection system. Breast tissue can be either dense or not dense. Dense tissue makes it harder to find breast cancer on a mammogram and also raises the risk of developing breast cancer. Your breast tissue is dense. In some people with dense tissue, other imaging tests in addition to a mammogram may help find cancers. Talk to your healthcare provider about breast density, risks for breast cancer, and your individual situation. This examination was performed at Radiology [facility] 1st [facility], [address] [place] [address] [place] [address]. [phone] Objective Physical Exam: Vital Signs: BP 135/105 | Pulse 97 | Temp 35.9 °C (96.6 °F) (Tympanic) | Resp 24 | Ht 1.473 m (4'10") | Wt 61.7 kg (136 lb) | LMP 01/24/2019 (Approximate) | SpO2 95% | BMI 28.42 kg/m² | BSA 1.59 m² Body mass index is 28.42 kg/m². General: No apparent distress. Eyes: pupils equal and round, sclera white, pupils midsize. ENT: mucous membranes moist Resp: Non-labored breathing CV: Extremities warm and well-perfused. Psych: Nonverbal. Skin: No rashes or lesions appreciated on exposed skin Neuromuscular Exam: TTP over right ihp Assessment: Ines is a 59 year old year-old female with: Chronic right hip pain Plan: The patient is undergoing right hip intraarticular injection under XR guidance today to alleviate her pain and improve her function. The risks, benefits and alternatives to the procedure were reviewed at length and the patient was provided the opportunity to ask questions which were answered to their voiced understanding. Following this comprehensive discussion, the patient opted to proceed. The patient was consented to the procedure following this comprehensive conversation. Humberto Rodríguez DO OR [facility], Operating Room, [facility] - 4th Floor [address] [facility] [phone] documented in this encounter Nursing Notes * Kaleigh Deluna RN - 2024 9:51 AM EDT Patient identified by: name/birthdate Person taught: nurse Merna at pt's [facility]. Jose Mariae case procedure confirmed with patient/parent/guardian - no consent signed. Laterality confirmed as Right Surgery date at time of Pre-Surgery Center Encounter: 11/30/2024. What procedure is patient having? Right hip (femoroacetabular) joint injection under XR guidance In an emergency, is patient willing to accept blood products or blood transfusion? Unknown. Do you need to place a blood bank order? No Anesthesia consent pool notified? N/A Anesthesia evaluation requested per case documentation? No Preop Evaluation Requested? No PATIENT EDUCATION SCREENING Person taught: Merna. Motivation Level: Asks Questions and Eager to Learn Language Barrier: No Physical Barrier: N/A METHOD: Lecture-telephone interview Patient Preferred Learning Methods: Lecture-Telephone interview Health History interview completed, questions answered, and the following patient instructions provided via telephone interview: Preoperative bathing instructions General preoperative instructions Medication instructions NPO instructions - If your normal morning routine take Tylenol, Austedo, Pepcid, Robinul, Lamictal, Keppra, Trilafon, Seroquel, and Zoloft the morning of surgery. If you take metformin, hold it the evening before surgery as well. No tobacco products after midnight. OUTCOME: State / Describe / Explain and Needs Reinforcement documented in this encounter OR Notes * OR Surgeon - Humberto Rodríguez DO - 11/30/2024 1:34 PM EDT HIP JOINT INJECTION DATE: 11/30/2024 PHYSICIAN: Humberto Rodríguez DO PREOPERATIVE DIAGNOSIS: Right-sided Hip Joint Pain Right-sided Osteoarthritis of the Hip Joint POSTOPERATIVE DIAGNOSIS: Right-sided Hip Joint Pain Right-sided Osteoarthritis of the Hip Joint PROCEDURE PERFORMED: Femoroacetabular (Hip) Joint Injection with a corticosteroid and a local anesthetic on the right side. Fluoroscopy for precise needle placement. ANESTHESIA: Monitored anesthesia care; Local infiltration with 1% lidocaine. MONITORS: Automatic blood pressure cuff, pulse oximetry readily available There was no kennel assistant, EBL or drains placed during this procedure. INDICATIONS: We had the pleasure of seeing Ines Taylor Juan Ramon at the [facility] today. Ines Delatorre ([id number]) is a 59 year old year-old female with a history of right-sided hip joint pain and right- sided osteoarthritis of the hip. The patient is here today for a hip joint corticosteroid injection to improve her symptoms and improve her Function. MEDICATIONS: Current Facility-Administered Medications Medication Dose Route Frequency Provider Last Rate Last Admin buffered lidocaine 1 % inj Once PRN Humberto Rodríguez, DO 3 mL at 11/30/24 1328 Iopamidol (Isovue M 300) inj Once PRN Humberto Rodríguez, DO 2 mL at 11/30/24 1328 Isolyte-S pH 7.4 infusion 25 mL/hr Intravenous Continuous Humberto Rodríguez DO 25 mL/hr at Restarted at 11/30/24 1325 lidocaine 1 % 3 mL, Triamcinolone Acetonide 40 mg inj Once PRN Humberto Rodríguez, DO 4 mL at 11/30/24 1327 Facility-Administered Medications Ordered in Other Encounters Medication Dose Route Frequency Provider Last Rate Last Admin fentaNYL (PF) inj Intravenous Once PRN Filiberto Kinney, SWITCH TENDER 25 mcg at 11/30/24 1329 Lidocaine (PF) 2 % (PF) inj Intravenous Once PRN Filiberto Kinney SWITCH TENDER 40 mg at 11/30/24 1329 midazolam (Versed) 2 MG/2ML inj Intravenous Once PRN Filiberto Kinney CRNA 2 mg at 11/30/24 1326 Propofol (Diprivan) 10 mg/mL (1%) bolus Intravenous Once PRN Filiberto Kinney SWITCH TENDER 30 mg at 11/30/24 1329 ALLERGIES: Review of patient's allergies indicates: Allergen Reactions Naproxen Nsaids Naproxen only Is able to take advil without complications Other Allergy (See Comments) Stimulants REVIEW OF SYSTEMS: Negative for fever, chills, chest pain, SOB, bleeding abnormalities, nausea, vomiting, diarrhea, worsening edema, or new rashes. FOCUSED PHYSICAL EXAMINATION: The patient is awake, alert and oriented, and is in no acute distress. Vital signs are stable. The patient is afebrile. The rest of the PE is essentially unchanged from the patient's recent visit to our office. I explained the procedure to the patient including the risks, benefits and alternatives to the procedure. The risks discussed with the patient included but were not limited to: bleeding, infection, and damage to surrounding nerves, tissues, and organs, paralysis, increased pain, allergic reaction, blood pressure instability, seizures, heart block, headaches, increase in blood sugar, worsening of glaucoma, blindness, manic episodes, mood instability, and . Alternatives to the procedure werealso explained and include: do nothing, surgery, medications, and physical therapy. The patient verbalized understanding and was willing to proceed. PROCEDURE IN DETAIL: An informed consent was obtained via the patient's healthcare proxy telephonically. The patient was taken to the procedure room where the patient was positively identified by [facility] and the attending physician. The patient was positioned prone on the bed. The patient's vitalsigns were monitored as above and remained stable throughout the procedure. A fluoroscopic view of the right femoroacetabular joint was obtained. The skin was prepped and draped in the standard sterile fashion. A surgical pause (time-out) was performed and was agreed upon by the members of the team. The skin and subcutaneous tissues were infiltrated with 1% lidocaine using a 25-gauge 1.5- inch needle. A 22-gauge, 5-inch spinal needle was advanced just under the acetabulum and the needle was advanced until it made osseous contact with the femoral neck. The position of the needle was verified inAP and lateral views and by injecting radio-opaque dye, which showed excellent intraarticular spread. After negative aspiration for the CSF or blood, 40 mg of triamcinolone mixed with 3mL 1% lidocaine was injected. The needle was withdrawn. The patient tolerated the procedure well. The patient was transferred in stable condition to the recovery room. COMPLICATIONS: None DISPOSITION: 1. Return to clinic in 1-2 months for follow-up evaluation, sooner as needed. 2. Resume activity as tolerated. 3. Patient can drive after 12-24 hours if no weakness noted. Humberto Rodríguez DO OR [facility], Operating Room, [facility] - 4th Floor [address] [place] [address] [place] [phone] documented in this encounter Plan of Treatment Upcoming Encounters Date Type Department Care Team (Late st Contact Info) Description 01/25/2025 11:00 AM EDT Scheduled Telephone Interventional Pain Center [facility] [address] [place] [phone] Nurse Antony Phone Call Interventional Pain [facility] [address] [place] [address] 04/04/2025 2:00 PM EDT Office Visit Family Practice [facility] [address] [place] [place] [address] Josh Holman MD [address] [place] [address] 05/09/2025 1:15 PM EDT Imaging Radiology [facility] 2nd [facility] [address] [place] [address] 06/22/2025 3:15 PM EST Office Visit Urology, [facility] [address] [phone] Kwasi Dorsey MD [address] [place] [address] 10/31/2025 1:00 PM EDT Office Visit Neurology [facility] [employer] [address] [facility] [place] [employer] [address] Ines Richardson MD [address] [facility] [place] [address] Health Maintenance Due Date Last Done Comments [...] Not on filedocumented as of this encounter Procedures Procedure Name Priority Date/Time Associated Diagnosis Comments FLUORO INTERVENTIONAL PAIN PROCEDURE NONBILLABLE Routine 11/30/2024 1:35 PM EDT documented in this encounter Results * FLUORO INTERVENTIONAL PAIN PROCEDURE NONBILLABLE (11/30/2024 1:35 PM EDT) Narrative 11/30/2024 1:35 PM EDT This procedure will not be read by a Radiologist. Please see operative note. Humberto Rodríguez DO RAD FLUOROSCOPY Final Result documented in this encounter Administered Medications Inactive Administered Medications - up to 3 most recent administrations Medication Order MAR Action Action Date Dose Rate Site Isolyte-S pH 7.4 infusion Intravenous, at 25 mL/hr, All Patients EXCEPT Dialysis patients Plasma-LYTE 148, isolyte-S, and isolyte-S pH 7.4 are considered equivalent - including for MAR barcode scanning., CONTINUOUS, Starting on Fri11/30/24 at 1200, Until Fri11/30/24 at 1814, Pre-Op Restarted 11/30/2024 1:25 PM EDT Continue from Pre-Op 11/30/2024 1:21 PM EDT 25 mL/hr New Bag 11/30/2024 11:40 AM EDT 25 mL/hr 25 mL/hr documented in this encounter Active and Recently Administered Medications Times are shown in EDT. Continuous Medication Order 11/28/2024 11/29/2024 11/30/2024 Isolyte-S pH 7.4 infusion Intravenous, at 25 mL/hr, All Patients EXCEPT Dialysis patients Plasma-LYTE 148, isolyte-S, and isolyte-S pH 7.4 are considered equivalent - including for MAR barcode scanning., CONTINUOUS, Starting on Fri11/30/24 at 1200, Until Fri11/30/24 at 1814, Pre-Op 1140 (New Bag - Prov ider: Santos Singh RN)1321 (Continue from Pre-Op - Provider: Filiberto Kinney CRNA)1324 (Paused - Provider: Filiberto Kinney CRNA - Comment: Switch to gravity)1325 (Restarted - Provider: Filiberto Kinney CRNA)1339 (Stopped - Provider: Filiberto Kinney CRNA) PRN Medication Order 11/28/2024 11/29/2024 11/30/2024 buffered lidocaine 1 % inj (CANCELED) ONCE PRN INTRA PROCEDURE, Starting on 11/30/24 at 1328, Until 11/30/24 at 1335, Intra-Op 1328 (Given - Provid er: Humberto Rodríguez DO) Iopamidol (Isovue M 300) inj (CANCELED) ONCE PRN INTRA PROCEDURE, Starting on 11/30/24 at 1328, Until 11/30/24 at 1335, Intra-Op 1328 (Given - Provid er: Humberto Rodríguez DO) lidocaine 1 % 3 mL, Triamcinolone Acetonide 40 mg inj (CANCELED) ONCE PRN INTRA PROCEDURE, Starting on 11/30/24 at 1326, Until 11/30/24 at 1335, Intra-Op 1326 (Given - Provid er: Humberto Rodríguez DO)1327 (Given - Provider: Humberto Rodríguez DO) documented in this encounter Advance Directives Documents on File Type Date Recorded Patient Filter Helper Expl anation Power of Residential Builder 10/06/2024 2:34 PM poa * Full Code (Latest Code Status on File) Date Activated Date Inactivated Comments 01/02/2015 1:52 PM 01/05/2015 7:23 PM This order r eflects the patients wishes and were consensually agreed upon. Question Answer Comments Discussion of Advance Direct leonidas occurred with: Family Does the patient have a Living Will? No Does the patient have Health Care Power of Residential Builder? Yes, in chart and reviewed as current Care Teams Shrimp Boat Captain Relationship Specialty Start Date End Date Courtney Donato MD [address] [place] [address] PCP - General Internal Medicine 11/23/24 documented as of this encounter
--- OUTSIDE RECORDS SUMMARY | 2024-12-15 18:22 | External Medical Summary ---
Author Name Unknown Address Unknown Organization K[facility] [address] [place] [address] Laboratory Report Ordering Provider Test Date Status MONIK FINLEY 11/23/2024 15:11:08 Final Observation Date Value Abnormality Reference (Units ) Status Rubeola IgG 11/23/2024 15:11:08 Positive Abnormal Negative Final A positive result is consist ent with having had measles virus (rubeola) or vaccination. Performing Location [facility] [address] [place] [address]
--- OUTSIDE RECORDS SUMMARY | 2024-12-15 18:22 | External Medical Summary | Summary of Care ---
Author Name Unknown Organization [facility] Address [address] [place] [address] Phone [phone] Care Team Providers Care Customer Specialist Name Role Phone Courtney Donato MD Primary Care Provider [phone] Reason for Referral * Evaluate & Treat - Unlimited Visits (Within 10 days (routine)) - Authorized Specialty Diagnoses / Procedures Referred By Jose posada Referred To Contact Pain Management / Pain Medicine Diagnoses Primary osteoarthritis of one hip, right Amanda Dave MD [address] [place] [address] Phone: tel: fax: Referral ID Status Reason Start Date Expiration Date Visits Requested Visits Authorized [id number] Authorized Specialty Services Required 10/18/2024 999 [id number] Question Answer Referral Priority Within 10 days (routine) Where should this appointment be scheduled? [facility] Reason for referral? Interventional Pain Management - (Injection) What condition is the patient being referred for? Hip/Shoulder/Knee What is the preferred location to have this test performed? [facility] Comments Patient Name: Ines Delatorre Date of : 1965 Department Phone Number: : [phone] (if unable to have a MRI) is recommended if any of the following apply: 1. Patient has neck or back pain with radiation to extremities. A previous MRI will be accepted if symptoms unchanged since prior MRI. 2. Spinal surgery since last MRI. If yes, order a MRI with and without contrast. 3. Hx or ongoing cancer treatment. Patient will need spine x-ray (Ap/Lat) for axial neck or back pain if not done previously. Fax No. [facility] [phone] or contact front desk agent [phone] Fax No. [facility] [phone] or contact front desk agent [phone] Fax No. [facility] [phone] or contact front desk agent [phone] Encounter Details Date Type Department Care Team (Late st Contact Info) Description 10/18/2024 Orders Only Orthopaedics [facility] [address] [place] [address] Amanda Dave MD [address] [place] [address] Primary osteoarthritis of one hip, right* Allergies Active Allergy Reactions Criticality Noted Date Comments Nsaids 09/04/2000 Naproxen only Is able to take advil without complications Other Allergy (See Comments) 12/18/2021 Stimulants documented as of this encounter (statuses as of 10/18/2024) Medications Fructose-Dextrose -Phosphor Acd (EMETROL) 1.87-1.87-21.5 SOLN [...] Sertraline HCl 25 MG Oral Tablet Take 2 Tablets by mouth in the morning. Active [...] IN THE MORNING 31 Tablet 4 Active Acetaminophen 500 MG Oral Tablet (Tylenol)Indicati ons:Personal history of fall,Other secondary scoliosis, thoracic region,Other abnormalities of gait and mobility TAKE 1 TABLET BY MOUTH ONCE DAILY IN THE MORNING FOR PAIN 31 Tablet 4 Active Docusate Sodium 100 MG Oral [...] the morning. 30 Tablet 12 5 Active Glycopyrrolate 1 MG Oral Tablet (Robinul) Take 1 Tablet by mouth in the morning and 1 Tablet at noon and 1 Tablet before bedtime. 90 Tablet 3 5 Active Austedo XR 36 MG Oral Tablet Extended Release 24 Hour Take 1 Tablet by mouth every evening. 5 Active QUEtiapine Fumarate 50 MG Oral Tablet (SEROquel) Take 1 Tablet by mouth. morning Active documented as of this encounter (statuses as of 10/18/2024) Active Problems Problem Noted Date Diagnosed Date [...] -gets every 2 yrs per caregiver at [facility] Other constipation 01/13/2018 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 Severe intellectual disabilities documented as of this encounter (statuses as of 10/18/2024) Resolved Problems Problem Noted Date Diagnosed Date [...] as of this encounter (statuses as of 10/18/2024) Immunizations Name Administration Dates Next Due COVID-19 [...] 11/04/2011,11/08/2009,11/01/2009, 006 Pneumococcal Conjugate Vacci ne, 20-valent ([id number]) 10/07/2022 Seasonal Influenza Vac, Quad , Cell [...] of Assessment Author No 07/30/2016 1:00 PM Dominga Samuels OSA * Are you blind or do you have serious difficulty seeing, even when wearing glasses? Answer Date of Assessment Author No 07/30/2016 1:00 PM Dominga Samuels OSA * Do you have serious difficulty walking [...] Care Team (Late st Contact Info) Description 11/04/2024 2:20 PM EDT Office Visit Neurology [facility] [address] [place] [address] Ines Richardson MD [address] [place] [address] 11/18/2024 1:45 PM EDT Office Visit Dental Medicine, [facility] [address] [place] [address] Kody [place], [facility] [address] [place] [address] 11/23/2024 2:15 PM EDT Office Visit Interventional Pain Center [facility] [address] [place] [phone] Humberto Rodríguez DO [address] [place] [phone] 04/01/2025 2:20 PM EDT Office Visit General Internal Medicine [facility] [address] [place] [address] Courtney Donato MD [address] [facility] [place] [address] 04/01/2025 2:40 PM EDT Office Visit General Internal Medicine [facility] [address] [place] [address] Courtney Donato MD [address] [place] [address] 05/09/2025 1:15 PM EDT [facility] [address] [place] [address] 06/22/2025 3:15 PM EST Office Visit Urology, [facility] [address] [place] [address] Kwasi Dorsey MD [address] [place] [address] [place] [address] Scheduled Referrals Name Type Priority Associated Diagnoses Orde r Schedule PAIN MEDICINE REFERRAL OP Referral Within 10 days (routine) Primary osteoarthritis of one hip, right Ordered: 10/18/2024 Health Maintenance Due Date Last Done Comments Cologuard 2010 Colonoscopy 2010 Sigmoidoscopy 2010 Depression Monitoring 03/19/2022 03/19/2021 COVID-19 Vaccine ( season) 2024 05/25/2024, 05/21/2024, [...] as of this encounter Visit Diagnoses Diagnosis Primary osteoarthritis of one hip, right- Primary documented in this encounter Advance Directives Documents on File Type Date Recorded 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 Question Answer Comments Discussion of Advance Direct leonidas occurred with: Family Does the patient have a Living Will? No Does the patient have Health Care Power of Lead Maintenance Technician? Yes, in chart and reviewed as current Care Teams Customer Specialist Relationship Specialty Start Date End Date Courtney Donato MD [address] [facility] [place] [address] PCP - General Internal Medicine 06/05/21 documented as of this encounter
--- OUTSIDE RECORDS SUMMARY | 2024-12-15 18:22 | External Medical Summary | Summary of Care ---
Author Name Unknown Organization [facility] Address [address] [place] [address] Phone [phone] Care Team Providers Care Manager Web Name Role Phone Courtney Donato MD Primary Care Provider [phone] Reason for Referral * (Within 10 days (routine)) - Authorized Specialty Diagnoses / Procedures Referred By Contac t Referred To Contact Radiology Diagnoses Primary osteoarthritis of one hip, right Chronic hip pain, right Procedures FLUORO INTERVENTIONAL PAIN PROCEDURE BILLABLE SPINE OR PARASPINOUS INJ Humberto Rodríguez DO [address] [place] [address] Phone: tel: fax: Referral ID Status Reason Start Date Expiration Date V isits Requested Visits Authorized [id number] Authorized 2024 [id number] * Precert (Within 10 days (routine)) - Authorized Specialty Diagnoses / Procedures Referred By Contac t Referred To Contact Pain Medicine Diagnoses Primary osteoarthritis of one hip, right Chronic hip pain, right Procedures ARTHROCENT ASP &/OR INJ MAJOR JX/BURSA W/O US Humberto Rodríguez DO [address] [place] [address] Phone: tel: fax: Referral ID Status Reason Start Date Expiration Date V isits Requested Visits Authorized [id number] Authorized 11/23/2024 999 999 Reason for Visit * Reason Comments Pain Nonverbal- Decrease movement and unable to walk far distances will cry and whimper, uses wheelchair majority of the time. X worsening since July, No trauma * Evaluate & Treat - Unlimited Visits (Within 10 days (routine)) - Authorized Specialty Diagnoses / Procedures Referred By Jose posada Referred To Contact Pain Management / Pain Medicine Diagnoses Primary osteoarthritis of one hip, right Amanda Dave MD [address] [place] [address] Phone: tel: fax: Referral ID Status Reason Start Date Expiration Date Visits Requested Visits Authorized [id number] Authorized Specialty Services Required 10/18/2024 999 [id number] Encounter Details Date Type Department Care Team (Latest Contact Info) Description 11/23/2024 2:15 PM EDT Office Visit Interventional Pain Center [facility] [address] [place] [phone] Humberto Rodríguez DO [address] [place] [address] Primary osteoarthritis of one hip, right*; Chronic hip pain, right Allergies Active Allergy Reactions Criticality Noted Date [...] -gets every 2 yrs per caregiver at [facility] Other constipation 01/13/2018 History of [...] 11/04/2011,11/08/2009,11/01/2009, 006 Pneumococcal Conjugate Vacci ne, 20-valent ([id number]) 10/07/2022 Seasonal Influenza Vac, Quad , Cell [...] documented in this encounter Progress Notes * Humberto Rodríguez, - 11/23/2024 2:42 PM EDT Interventional Pain Consult Dear Amanda Dave MD, thank you for your kind referral of Ines Delatorre. Chief Complaint: Chief Complaint Patient presents with Pain Nonverbal- Decrease movement and unable to walk far distances will cry and whimper, uses wheelchairmajority of the time. X worsening since July, No trauma History of Present Illness: As you know, Ines Delatorre is a very pleasant 58 year old female with a past medical history significant for Past Medical History: Diagnosis Date Convulsions (HCC) 05/27/2011 Generalized convulsive epilepsy without intractable epilepsy (HCC) Seizures, Epileptic Seizure disorder (HCC) 05/27/2011 On Lamictal. Severe intellectual disabilities Mental Retardation, Severe Uterine leiomyoma Was s/e by orthopedics/sports med whose impression was that she had significant hip pathology with severe osteoarthritis on recent XR evaluation. Requested that we consider the patient for injection under sedation. Caregiver ([facility]) states that she has obvious pain with weight- bearing and walking. Pt does not demonstrate painful area. Aggravating factors include: walking, getting up off of couch or seated position. Alleviating factors include: sitting down and laying down. The pain is present every day. Pain severity is typically severe per caregiver. Has tried tylenol for pain otherwise caregiver denies medication trials. Denies weakness. Tremors evident. Review of Systems: A comprehensive 14-pt ROS were of reviewed with the patient including difficulty with sleep, snoring, aspiration history, dysphagia, stomach pain, nausea and vomiting, severe headaches, confusion, open skin lesions or wounds, chest pain, shortness of breath, excessive thirst, somnolence, dysuria, incomplete bladder emptying, easy bruising, recent clotting problems or bleeding, depression or rushed thoughts. These were all negative unless noted previously. Past Medical History: Diagnosis Date Convulsions (HCC) 05/27/2011 Generalized convulsive epilepsy without intractable epilepsy (HCC) Seizures, Epileptic Seizure disorder (HCC) 05/27/2011 On Lamictal. Severe intellectual disabilities Mental Retardation, Severe Uterine leiomyoma Past Surgical History: Procedure Laterality Date ANESTHESIA FOR CAT OR MRI SCAN 11/09/09 ANESTHESIA FOR NON-INVASIVE IMAGING (MRI OR CT) performed by IN & OUT SURGERY at OR [facility] ANESTHESIA FOR CAT OR MRI SCAN 09/27/2010 ANESTHESIA FOR NON-INVASIVE IMAGING (MRI OR CT) performed by IN & OUT SURGERY at OR [facility] DENTAL PROPHYLAXIS ADULT Bilateral 11/22/2022 PROPHY ADULT performed by Kody [place] DMD at OR [facility] EGD, W/ENDOSCOPIC US 12/08/08 f/u with FMD INTRAOR COMPLETE FILM SERIES Bilateral 11/22/2022 INTAORAL COMPLETED SERIES performed by Kody [place] DMD at OR [facility] RESIN COMPOSITE 2 SURFACES POSTERIER Bilateral 11/22/2022 RESIN BASED COMPOSITE 2 SURFACES, POSTERIOR performed by Kody [place] DMD at OR [facility] TOPICAL FLUORIDE VARNISH Bilateral 11/22/2022 TOPICAL FLUORIDE VARNISH THERAPEUTIC APPLICATION FOR MODERATE TO HIGH CARIES RISK PATIENTS performed by Kody [place] DMD at OR [facility] Social History Socioeconomic History Marital status: Single Spouse name: Not on file Number of children: Not on file Years of education: Not on file Highest education level: Not on file Occupational History Not on file Tobacco Use Smoking status: Never Smokeless tobacco: Never Substance and Sexual Activity Alcohol use: No Drug use: No Sexual activity: Never Other Topics Concern Not on file Social History Narrative Not on file Social Needs Financial Resource Strain: Not on file Food Insecurity: No Food Insecurity (05/31/2019) Hunger Vital Sign Worried About Running Out of Food in the Last Year: Never true Ran Out of Food in the Last Year: Never true Transportation Needs: Not on file Social Connections: Not on file Housing Stability: Not on file Naproxen, Nsaids, and Other allergy (see comments) Current Outpatient Medications Medication Sig Dispense Refill QUEtiapine Fumarate 200 MG Oral Tablet One pill at 8 pm 30 Tab 1 Perphenazine 4 MG Oral Tablet (Trilafon) 2 Tablets at bedtime. Famotidine 40 MG Oral Tablet (Pepcid) TAKE 1 TABLET BY MOUTH ONCE DAILY 31 Tablet 5 Perphenazine 2 MG Oral Tablet (Trilafon) Take 1 Tablet by mouth in the morning. Sodium Fluoride 1.1 % Dental Cream (Denta 5000 Plus) Use a pea size amount twice daily as toothpaste 153 g 4 Chlorhexidine Gluconate 0.12 % Mouth/Throat Solution (Periogard) Use 3 times a week. Swab on teeth / gums after brushing. 473 mL 5 Multivitamin Oral Tablet TAKE ONE TABLET BY MOUTH IN THE MORNING 31 Tablet 11 Oyster Shell Calcium w/D 500-5 MG-MCG Oral Tablet TAKE ONE TABLET BY MOUTH IN THE MORNING 31 [id number] Acetaminophen 500 MG Oral Tablet (Tylenol) TAKE 1 TABLET BY MOUTH ONCE DAILY IN THE MORNING FOR PAIN 31 Tablet 11 Docusate Sodium 100 MG Oral Capsule (Colace) TAKE 1 CAPSULE BY MOUTH IN THE MORNING AND AT BEDTIME HOLD IF ANY LOOSE STOOLS 62 Capsule 11 lamoTRIgine 100 MG Oral Tablet (LaMICtal) TAKE 1/2 TABLET BY MOUTH TWICE DAILY 31 Tablet 4 levETIRAcetam 1000 MG Oral Tablet TAKE 1 TABLET BY MOUTH AT 8 AM AND 1 TABLET AT 8 PM 62 Tablet 4 levETIRAcetam 500 MG Oral Tablet (Keppra) TAKE 1 TABLET BY MOUTH AT 8 AM AND 1 TABLET AT 8 PM. 62 Tablet 4 lamoTRIgine 200 MG Oral Tablet (LaMICtal) TAKE 1 TABLET BY MOUTH IN THE MORNING AND AT BEDTIME 62 Tablet 4 cloBAZam 10 MG Oral Tablet (Onfi) TAKE 1/2 TABLET BY MOUTH AT BEDTIME 16 Tablet 5 Polyethylene Glycol 3350 17 GM/SCOOP Oral Powder (Miralax) USE 1 CAPFUL (17GM) DISSOLVED IN 8 OZ OFWATER BY MOUTH DAILY MAY HOLD FOR LOOSE STOOLS 238 g 11 FiberCon 625 MG Oral Tablet (Calcium Polycarbophil) Take 1 Tablet by mouth in the morning. 30 Tablet 12 Austedo XR 36 MG Oral Tablet Extended Release 24 Hour Take 1 Tablet by mouth every evening. QUEtiapine Fumarate 50 MG Oral Tablet (SEROquel) Take 1 Tablet by mouth. morning Glycopyrrolate 1 MG Oral Tablet (Robinul) Take 1 Tablet by mouth in the morning and 1 Tablet at noon and 1 Tablet before bedtime. 93 Tablet 3 Dqdievzj-Mgfzelud-Vvtqmaxn Acd (EMETROL) 1.87-1.87-21.5 SOLN Take 2 tablespoons by mouth every 15 minutes or until distress subsides 30 mL 0 loperamide (IMODIUM) 2 MG Capsule 2 caps by mouth after 1st loose stool then 1 by mouth after each loose stool as needed 30 Cap 0 Aloe Vera GEL Apply topically to affected area daily as needed (sunburn). Apply to affected area Phenylephrine HCl 10 MG Oral Tablet One tab every 4 hours as needed Alum & Mag Hydroxide-Simeth 200-200-20 MG/5ML Oral Suspension 2 tsp between meals and at bedtime as needed 1 Bottle 1 hydrocortisone 1 % cream Apply topically to affected area 3 times a day as needed. For rash. Unsureof dose 15 g 1 Sertraline HCl 100 MG Oral Tablet (Zoloft) Take 1 Tablet by mouth in the morning. No current facility-administered medications for this visit. Family History Problem Relation Name Age of Onset Cancer Mother Other (Other) Mother SEIZURES Pertinent Labs/Test Results: INR (no units) Date Value 04/08/2003 .98 No results found for: "CREATININE" Hemoglobin A1C (%) Date Value 09/13/2022 5.2 05/21/2018 5.5 No results found for: "AMPHETAMINE", "BARBITURATES", "BENZODIAZEPINES", "BUPRENORPHINE", "METHADONE", "OPIATES", "OXYCODONE", "PHENCYCLIDINE", "CANNABINOIDS", "TOX SCREEN", "URINE", "TOX SCREEN-SERUM", "TOX SCREEN, URINE" Imaging: I personally reviewed the imaging and my findings were . Objective Physical Exam: Vital Signs: LMP 01/24/2019 (Approximate) There is no height or weight on file to calculate BMI. General: No apparent distress. Eyes: pupils equal and round, sclera white, pupils midsize. ENT: mucous membranes moist Resp: Non-labored breathing CV: Extremities warm and well-perfused. Psych: Nonverbal, pleasant. Skin: No rashes or lesions appreciated on exposed skin Neuromuscular Exam: Hands tremulous. Right anterior hip TTP. No TTP over right SIJ. Assessment: Ines Delatorre is a 58 year old year-old female with: Primary osteoarthritis of one hip, right (Primary) - ARTHROCENT ASP &/OR INJ MAJOR JX/BURSA W/O US - FLUORO INTERVENTIONAL PAIN PROCEDURE BILLABLE SPINE OR PARASPINOUS INJ; Future; Expected date: 2024 Chronic hip pain, right - ARTHROCENT ASP &/OR INJ MAJOR JX/BURSA W/O US - FLUORO INTERVENTIONAL PAIN PROCEDURE BILLABLE SPINE OR PARASPINOUS INJ; Future; Expected date: 2024 Plan: POA/living relative Mary Munoz, ; [phone]. CG reports that she can be difficultto reach. Will proceed with right femoroacetabular intra-articular injection under XR guidance. The risks, benefits and alternatives to the procedure were reviewed at length and the patient was provided the opportunity to ask questions which were answered to their voiced understanding. Following this comprehensive discussion, the patient opted to proceed. The patient was advised that they will require a patrol driver. Will need sedation due to nonverbal/intellectual disability. Medication management per PCP, may consider MTM I spent a total of 30-39 minutes (exact time 31 mins) on the date of service in preparation, delivery, and documentation of the care provided to Ines Delatorre excluding any time spent in the performance of separately billed services or time spent by another provider/QHP. Humberto Rodríguez DO Interventional Pain Center [facility] [address] [place] [address] documented in this encounter Nursing Notes * Mingle, Lachelle, MESS ATTENDANT - 11/23/2024 2:14 PM EDT Nonverbal Patient presents for Nonverbal- Decrease movement and unable to walk far distances will cry and whimper, uses wheelchair majority of the time. X worsening since July, No trauma Previous injections: none Previous Surgeries: none PT: [facility] Sep- Present Imagin10/04/24 XR Hip Bilateral documented in this encounter Plan of Treatment Upcoming Encounters Date Type Department Care Team (Latest Contact Info) Description 11/30/2024 11:43 AM EDT Hospital Encounter OR [facility], Operating Room, [facility] - 4th Floor [address] [address] Humberto Rodríguez, DO [address] [place] [phone] 11/30/2024 11:43 AM EDT - 11/30/2024 12:06 PM EDT Surgery OR [facility], Operating Room, [facility] - 4th Floor [address] [place] [address] Humberto Rodríguez, [address] [place] [address] ARTHROCENTESIS OR INJECTION MAJOR JOINT 04/04/2025 2:00 PM EDT Office Visit Family Practice [facility] [address] [place] [address] Josh Holman MD [address] [place] [address] 05/09/2025 1:15 PM EDT Imaging Radiology [facility] 2nd [facility] [address] [place] [address] 06/22/2025 3:15 PM EST Office Visit Urology, [facility] [address] [place] [phone] Kwasi Dorsey MD [address] [place] [address] 10/31/2025 1:00 PM EDT Office Visit Neurology [facility] [address] [facility] [place] [address] Ines Richardson MD [address] [facility] [place] [address] Scheduled Orders Name Type Priority Associated Diagnoses Orde r Schedule ARTHROCENT ASP &/OR INJ MAJOR JX/BURSA W/O US Procedures Routine Primary osteoarthritis of one hip, right Chronic hip pain, right Ordered: 11/23/2024 FLUORO INTERVENTIONAL PAIN PROCEDURE BILLABLE SPINE OR PARASPINOUS INJ Medical Imaging Routine Primary osteoarthritis of one hip, right Chronic hip pain, right Expected: 2024, Expires: 02/22/2025 Scheduled Procedures Name Priority Associated Diagnoses Date/Ti me ARTHROCENTESIS OR INJECTION MAJOR JOINT Primary osteoarthritis [...] Additional history exists Zoster Vaccines Completed 12/12/2020, 1208/2019, 09/13/2019 Pneumococcal Vaccine: 50+ Years Completed 10/07/2022, [...] Primary osteoarthritis of one hip, right- Primary Chronic hip pain, right Primary osteoarthritis of right hip Primary localized osteoarthrosis, pelvic region and thigh documented in this encounter Advance Directives Documents on File Type Date Recorded 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 Question Answer Comments Discussion of Advance Direct leonidas occurred with: Family Does the patient have a Living Will? No Does the patient have Health Care Power of Consumer Insights Intern? Yes, in chart and reviewed as current Care Teams Manager Web Relationship Specialty Start Date End Date Courtney Donato MD [address] [place] [address] PCP - General Internal Medicine 11/23/24 documented as of this encounter
--- OUTSIDE RECORDS SUMMARY | 2024-12-15 18:22 | External Medical Summary | Summary of Care ---
Author Name Unknown Organization [facility] Address [address] [place] [address] Phone [phone] Care Team Providers Care Dairy Husbandry Worker Name Role Phone Courtney Donato MD Primary Care Provider [phone] Reason for Visit * Reason Comments eRx-Medication Refill Encounter Details Date Type Department Care Team (Late st Contact Info) Description 10/29/2024 Refill Gastroenterology, [facility] [address] [place] [address] Erinn Colin, CHARLEEN [address] [place] [address] Allergies Active Allergy Reactions Criticality Noted Date Comments Nsaids 09/04/2000 Naproxen only Is able to take advil without complications Other Allergy (See Comments) 12/18/2021 Stimulants documented as of this encounter (statuses as of 11/02/2024) Medications Fructose-Dextros e-Phosphor Acd (EMETROL) 1.87-1.87-21.5 SOLN Take 2 tablespoons by mouth every 15 minutes or until distress subsides 30 mL 0 11/01/19 16 Active loperamide (IMODIUM) 2 MG Capsule 2 caps by mouth after 1st loose stool then 1 by mouth after each loose stool as needed 30 Cap 0 11/01/19 16 Active Aloe Vera GEL Apply topically to affected area daily as needed (sunburn). Apply to affected area 11/01/19 16 Active QUEtiapine Fumarate 200 MG Oral TabletIndication s:Agitation One pill at 8 pm 30 Tab 1 06/18/20 16 Active Phenylephrine HCl 10 MG Oral Tablet One tab every 4 hours as needed 11/11/19 18 Active Alum & Mag Hydroxide-Simeth 200-200-20 MG/5ML Oral Suspension 2 tsp between meals and at bedtime as needed 1 Bottle 1 11/11/19 18 Active hydrocortisone 1 % cream Apply topically to affected area 3 times a day as needed. For rash. Unsure of dose 15 g 1 05/15/20 18 Active Sertraline HCl 25 MG Oral Tablet Take 2 Tablets by mouth in the morning. Active Perphenazine 4 MG Oral Tablet (Trilafon)Indica tions:Severe intellectual disabilities 2 Tablets at bedtime. 03/28/20 23 Active Famotidine 40 MG Oral Tablet (Pepcid)Indicati ons:Gastroesopha geal reflux disease without esophagitis TAKE 1 TABLET BY MOUTH ONCE DAILY 31 Tablet 5 08/28/19 24 Active Perphenazine 2 MG Oral Tablet (Trilafon) Take 1 Tablet by mouth in the morning. Active Sodium Fluoride 1.1 % Dental Cream (Denta 5000 Plus) Use a pea size amount twice daily as toothpaste 153 g 4 11/18/19 24 Active Chlorhexidine Gluconate 0.12 % Mouth/Throat Solution (Periogard) Use 3 times a week. Swab on teeth / gums after brushing. 473 mL 5 11/18/19 24 Active Multivitamin Oral Tablet TAKE ONE TABLET BY MOUTH IN THE MORNING 31 Tablet 01/26/20 24 Active Oyster Shell Calcium w/D 500-5 MG-MCG Oral Tablet TAKE ONE TABLET BY MOUTH IN THE MORNING 31 Tablet 01/26/20 24 Active Acetaminophen 500 MG Oral Tablet (Tylenol)Indicat ions:Personal history of fall,Other secondary scoliosis, thoracic region,Other abnormalities of gait and mobility TAKE 1 TABLET BY MOUTH ONCE DAILY IN THE MORNING FOR PAIN 31 Tablet 11 01/26/20 24 Active Docusate Sodium 100 MG Oral Capsule (Colace)Indicati ons:Other constipation TAKE 1 CAPSULE BY MOUTH IN THE MORNING AND AT BEDTIME HOLD IF ANY LOOSE STOOLS 62 Capsule 11 03/31/20 24 Active lamoTRIgine 100 MG Oral Tablet (LaMICtal)Indica tions: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 62 Tablet 4 07/05/20 24 Active lamoTRIgine 200 MG Oral Tablet (LaMICtal) TAKE 1 TABLET BY MOUTH IN THE MORNING AND AT BEDTIME 62 Tablet 4 07/05/20 24 Active cloBAZam 10 MG Oral Tablet (Onfi)Indication s:Seizures (HCC) TAKE 1/2 TABLET BY MOUTH AT BEDTIME 16 Tablet 5 08/03/20 24 Active Polyethylene Glycol 3350 17 GM/SCOOP Oral Powder (Miralax)Indicat ions:Other constipation USE 1 CAPFUL (17GM) DISSOLVED IN 8 OZ OF WATER BY MOUTH DAILY MAY HOLD FOR LOOSE STOOLS 238 g 11 08/16/20 24 Active FiberCon 625 MG Oral Tablet (Calcium Polycarbophil) Take 1 Tablet by mouth in the morning. 30 Tablet 12 09/07/19 25 Active Austedo XR 36 MG Oral Tablet Extended Release 24 Hour Take 1 Tablet by mouth every evening. 09/23/19 25 Active QUEtiapine Fumarate 50 MG Oral Tablet (SEROquel) Take 1 Tablet by mouth. morning Active Glycopyrrolate 1 MG Oral Tablet (Robinul) Take 1 Tablet by mouth in the morning and 1 Tablet at noon and 1 Tablet before bedtime. 93 Tablet 3 11/03/19 25 Active Glycopyrrolate 1 MG Oral Tablet (Robinul) Take 1 Tablet by mouth in the morning and 1 Tablet at noon and 1 Tablet before bedtime. 90 Tablet 3 09/07/19 25 2024 Discontinued documented as of this encounter (statuses as of 11/02/2024) Active Problems Problem Noted Date Diagnosed Date [...] -gets every 2 yrs per caregiver at [facility] Other constipation 01/13/2018 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 Severe intellectual disabilities documented as of this encounter (statuses as of 11/02/2024) Resolved Problems Problem Noted Date Diagnosed Date [...] as of this encounter (statuses as of 11/02/2024) Immunizations Name Administration Dates Next Due COVID-19 [...] 10/17/2022 H1N1 2009 Influenza, IM 06/23/2009 PPD 09/30/2023, 2,03/17/2020,2018,10/20/2017,11/01/2015,11/02/2013,0 11/04/2011,11/08/2009,11/01/2009, 006 Pneumococcal Conjugate Vacci ne, 20-valent ([id number]) 10/07/2022 Seasonal Influenza Vac, Quad , Cell [...] Mi randolph, ALINA documented in this encounter Miscellaneous Notes * Telephone Encounter - Dinesh Jones RPh - 11/02/2024 12:01 PM EDTSigned Prescriptions: Disp Refills Glycopyrrolate 1 MG Oral Tablet (Robinul) 93 Tab*3 Sig: Take 1 Tablet by mouth in the morning and 1 Tablet at noon and 1 Tablet before bedtime.Authorizing Provider: ERINN COLIN User: DINESH JONES * Telephone Encounter - Linda Pruitt - 10/29/2024 1:19 PM EDTPending Prescriptions: Disp Refills Glycopyrrolate 1 MG Oral Tablet [Pharmacy *93 Tab*3 Sig: Take 1 Tablet by mouth in the morning and 1 Tablet at noon and 1 Tablet before bedtime. * Telephone Encounter - Linda Pruitt - 10/29/2024 1:17 PM EDT Did you pend patient's preferred pharmacy and medication before forwarding?yes Pharmacy: [facility] [address] Pending Prescriptions: Disp Refills Glycopyrrolate 1 MG Oral Tablet (Robinul)*93 Tab*3 Sig: Take 1 Tablet by mouth in the morning and 1 Tablet at noon and 1 Tablet before bedtime. Last Visit: 03/27/2022 (in office), 09/07/2024 (telemedicine) Next Visit: Visit date not found If no future appointments scheduled, and last appointment is greater than a year ago, please schedule patient for a follow-up appointment Last date the medication was ordered: 09/07/2024 Is this request for a controlled substance?No Urine Drug Screen:No results found. However, due to the size of the patient record, not all encounters were searched. Please check Results Review for a complete set of results. Patient Phone Numbers Labs: Lab Results Component Value Date/Time CREAT 0.8 10/04/2024 03:21 PM CREAT 0.73 12/05/2021 12:00 AM CREAT 0.9 09/13/2020 03:35 PM POTASSIUM 3.9 10/04/2024 03:21 PM POTASSIUM 3.9 12/05/2021 12:00 AM POTASSIUM 4.3 09/13/2020 03:35 PM TSH 1.39 10/04/2024 03:21 PM TSH 1.419 12/05/2021 12:00 AM TSH 2.31 05/21/2019 07:57 AM LDL 130 (H) 10/04/2024 03:21 PM LDL 125 08/24/2018 05:12 PM ALT 16 10/04/2024 03:21 PM ALT 17 09/13/2020 03:35 PM HGBA1C 5.2 09/13/2022 11:17 AM HGBA1C 5.5 05/21/2018 08:43 AM documented in this encounter Plan of Treatment Upcoming Encounters Date Type Department Care Team (Late st Contact Info) Description 11/04/2024 2:20 PM EDT Office Visit Neurology [facility] [address] [place] [address] Ines Richardson MD [address] [place] [address] 11/18/2024 1:45 PM EDT Office Visit Dental Medicine, [place] [address] [place] [address] Kody Dallas, [facility] [address] [place] [address] 11/23/2024 2:15 PM EDT Office Visit Interventional Pain Center [facility] [address] [place] [phone] Humberto Rodríguez DO [address] [place] [phone] 04/01/2025 2:20 PM EDT Office Visit General Internal Medicine [facility] [address] [place] [address] Courtney Donato MD [facility] [address] [facility] [place] [address] 04/01/2025 2:40 PM EDT Office Visit General Internal Medicine [facility] [place] [address] [place] [address] Courtney Donato MD [address] [place] [address] 05/09/2025 1:15 PM EDT Imaging Radiology [facility] 2nd [facility] [address] [facility] [place] [address] 06/22/2025 3:15 PM EST Office Visit Urology, [facility] [address] [place] [address] Kwasi Dorsey MD [address] [place] [address] Health Maintenance Due Date Last Done Comments [...] Not on filedocumented as of this encounter Advance Directives Documents on File Type Date Recorded Patient Supervisor Pumping Expl anation Power of Barrel Assembler Helper 10/06/2024 2:34 PM poa * Full Code (Latest Code Status on File) Date Activated Date Inactivated Comments 01/02/2015 1:52 PM 01/05/2015 7:23 PM This order r eflects the patients wishes and were consensually agreed upon. Question Answer Comments Discussion of Advance Direct leonidas occurred with: Family Does the patient have a Living Will? No Does the patient have Health Care Power of Barrel Assembler Helper? Yes, in chart and reviewed as current Care Teams Dairy Husbandry Worker Relationship Specialty Start Date End Date Courtney Donato MD [address] [place] [address] PCP - General Internal Medicine 06/05/21 documented as of this encounter
--- OUTSIDE RECORDS SUMMARY | 2024-12-15 18:22 | External Medical Summary | Summary of Care ---
Author Name Unknown Organization [facility] Address [address] [place] [address] Phone [phone] Care Team Providers Care Per Diem Physical Therapist Assistant Name Role Phone Courtney Donato MD Primary Care Provider [phone] Reason for Visit * Reason Comments Return Neuro Seizure Disorder Encounter Details Date Type Department Care Team (Late st Contact Info) Description 11/04/2024 2:20 PM EDT Office Visit Neurology [facility] [address] [place] [address] Ines Richardson MD [address] [place] [address] Generalized convulsive epilepsy without intractable epilepsy (HCC)* Allergies Active Allergy Reactions Criticality Noted Date Comments Nsaids 09/04/2000 Naproxen only Is able to take advil without complications Other Allergy (See Comments) 12/18/2021 Stimulants documented as of this encounter (statuses as of 11/04/2024) Medications Fructose-Dextrose -Phosphor Acd (EMETROL) 1.87-1.87-21.5 SOLN [...] as of this encounter (statuses as of 11/04/2024) Active Problems Problem Noted Date Diagnosed Date [...] -gets every 2 yrs per caregiver at [facility] Other constipation 01/13/2018 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 Severe intellectual disabilities documented as of this encounter (statuses as of 11/04/2024) Resolved Problems Problem Noted Date Diagnosed Date [...] as of this encounter (statuses as of 11/04/2024) Immunizations Name Administration Dates Next Due COVID-19 [...] 11/04/2011,11/08/2009,11/01/2009, 006 Pneumococcal Conjugate Vacci ne, 20-valent ([id number]) 10/07/2022 Seasonal Influenza Vac, Quad , Cell [...] Sign Reading Time Taken Comments Blood Pressure 150/88 11/04/2024 2:27 PM EDT Pulse 82 11/04/2024 2:27 PM EDT Temperature 36.9 °C (98.4 °F) 11/04/2024 2:27 PM ED T Respiratory Rate 20 11/04/2024 2:27 PM EDT Oxygen Saturation - - Inhaled Oxygen Concentration - - Weight 62.1 kg (136 lb 12.8 oz) 11/04/2024 2:27 PM EDT Height - - Body Mass Index 28.59 10/04/2024 1:18 PM EST documented in this encounter Functional Status * [...] documented in this encounter Progress Notes * Ines Richardson MD - 11/04/2024 3:02 PM EDT CLINIC NOTES Neurology [facility] [place] [address] [facility] [place] [address] Ines Delatorre : 1965 NEUROLOGY OUTPATIENT NOTE 11/04/2024 HISTORY: The patient is referred for consultation by Dr. Martines, who will be receiving a copy of this note. Patient comes today in follow-up autism and mental retardation and seizure disorder she has not hadany seizures for many years remains on clobazam Lamictal Keppra. It sounds as if she has developed some tardive dyskinesia and akathisia and the dose of her Seroquel was reduced and os data was addedwith improvement she has been salvage eating more and glycopyrrolate has helped with that she has lost a significant amount of weight. Staff indicates that she is less interested in getting out of bed that when she ambulates she ambulates like she is in pain she is incontinent only at night when inbed otherwise she is generally continent during the day and able to make the staff away aware that she is having incontinence staff is worried about her scoliosis as well as her hip pain she has seenorthopedics and has severe degenerative changes in the right hip and mild on the left they are scheduling potentially a hip injection but it is difficult to to reach the power of district attorney Past Medical History: Diagnosis Date Convulsions (HCC) 05/27/2011 Generalized convulsive epilepsy without intractable epilepsy (HCC) Seizures, Epileptic Seizure disorder (HCC) 05/27/2011 On Lamictal. Severe intellectual disabilities Mental Retardation, Severe Uterine leiomyoma Patient Active Problem List Diagnosis Severe intellectual disabilities Seizure disorder (HCC) Gastroesophageal reflux disease without esophagitis History of SIADH Other constipation Encounter for screening mammogram for breast cancer Fecal occult blood test positive Autism Obsessive-compulsive disorder Recurrent major depressive disorder, in remission (HCC) Other secondary scoliosis, thoracic region Left nephrolithiasis Lesion of right lobe of liver Urinary incontinence, overflow Fecal incontinence not due to organic disease Mass of upper outer quadrant of right breast Past Surgical History: Procedure Laterality Date ANESTHESIA FOR CAT OR MRI SCAN 11/09/09 ANESTHESIA FOR NON-INVASIVE IMAGING (MRI OR CT) performed by IN & OUT SURGERY at [facility] ANESTHESIA FOR CAT OR MRI SCAN 09/27/2010 ANESTHESIA FOR NON-INVASIVE IMAGING (MRI OR CT) performed [place] [facility] [place] [facility] [place] PROPHYLAXIS ADULT Bilateral 11/22/2022 PROPHY ADULT performed by Kody Dallas DMD at [facility] EGD, W/ENDOSCOPIC US 12/08/08 f/u with FMD INTRAOR COMPLETE FILM SERIES Bilateral 11/22/2022 INTAORAL COMPLETED SERIES performed by Kody Dallas DMD [place] [facility] RESIN COMPOSITE 2 SURFACES POSTERIER Bilateral 11/22/2022 RESIN BASED COMPOSITE 2 SURFACES, POSTERIOR performed by Kody Dallas DMD at [facility] TOPICAL FLUORIDE VARNISH Bilateral 11/22/2022 TOPICAL FLUORIDE VARNISH THERAPEUTIC APPLICATION FOR MODERATE TO HIGH CARIES RISK PATIENTS performed by Kody Dallas DMD [place] [facility] Social History Socioeconomic History Marital status: Single [...] on file Housing Stability: Not on file Family History Problem Relation Name Age of Onset Cancer Mother Other (Other) Mother SEIZURES Current Outpatient Medications Medication Sig Dispense Refill Qyknsknq-Hjemmequ-Ifaqxxxq Acd (EMETROL) 1.87-1.87-21.5 SOLN Take 2 tablespoons by mouth every 15 minutes or until distress subsides 30 mL 0 loperamide (IMODIUM) 2 MG Capsule 2 caps by mouth after 1st loose stool then 1 by mouth after each loose stool as needed 30 Cap 0 Aloe Vera GEL Apply topically to affected area daily as needed (sunburn). Apply to affected area QUEtiapine Fumarate 200 MG Oral Tablet One pill at 8 pm 30 Tab 1 Phenylephrine HCl 10 MG Oral Tablet One tab every 4 hours as needed Alum & Mag Hydroxide-Simeth 200-200-20 MG/5ML Oral Suspension 2 tsp between meals and at bedtime as needed 1 Bottle 1 hydrocortisone 1 % cream Apply topically to affected area 3 times a day as needed. For rash. Unsureof dose 15 g 1 Sertraline HCl 25 MG Oral Tablet Take 4 Tablets by mouth in the morning. Perphenazine 4 MG Oral Tablet (Trilafon) 2 [...] TABLET BY MOUTH IN THE MORNING 31 [id number] Acetaminophen 500 MG Oral Tablet (Tylenol) TAKE [...] 1 Tablet before bedtime. 93 Tablet 3 No current facility-administered medications for this visit. Review of patient's allergies indicates: Allergen Reactions Nsaids Naproxen only Is able to take advil without complications Other Allergy (See Comments) Stimulants Results for orders placed or performed in visit on 10/04/24 CBC Result Value Ref Range WBC 7.78 4.00 - 10.80 K/uL RBC 4.23 3.85 - 5.15 M/uL HGB 12.8 12.0 - 15.3 g/dL HCT 39.0 36.0 - 45.2 % MCV 92.2 81.5 - 97.5 fL MCH 30.3 27.0 - 34.0 pg MCHC 32.8 32.0 - 36.0 g/dL RDW 13.2 11.5 - 15.5 % PLT 257 140 - 400 K/uL MPV 10.6 6.6 - 11.1 fL Results for orders placed or performed in visit on 10/04/24 BASIC METABOLIC PANEL Result Value Ref Range BUN 16 6 - 20 mg/dL CREATININE 0.8 0.5 - 1.0 mg/dL EGFR 88 >=60 mL/min SODIUM 140 135 - 146 mmol/L POTASSIUM 3.9 3.5 - 5.1 mmol/L CHLORIDE 100 98 - 107 mmol/L CO2 28 22 - 32 mmol/L ANION GAP 12 7 - 15 mmol/L GLUCOSE 99 70 - 120 mg/dL CALCIUM 9.9 8.4 - 10.2 mg/dL Results for orders placed or performed in visit on 08/24/18 LIPID PANEL Result Value Ref Range HOURS FASTING NOT FASTING hours Triglycerides 84 <200 mg/dL Cholesterol 199 <200 mg/dL HDL Cholesterol 57 >39 mg/dL Cholesterol-HDL Ratio 3.5 LDL Cholesterol 125 0 - 129 mg/dL Results for orders placed or performed in visit on 10/04/24 LIPID PANEL WITH DIRECT LDL IF TG IS HIGH Result Value Ref Range Triglycerides 190 (H) <=174 mg/dL Cholesterol 216 (H) <200 mg/dL HDL Cholesterol 48 (L) >49 mg/dL Non-HDL Cholesterol 168 (H) <=159 mg/dL LDL Cholesterol 130 (H) <=129 mg/dL Lab Results Component Value Date/Time HEMOGLOBIN A1C - [facility] 5.2 09/13/2022 11:17 AM HEMOGLOBIN A1C - [facility] 5.5 03/26/2022 12:07 PM HEMOGLOBIN A1C - [facility] 5.5 05/21/2018 08:43 AM HEMOGLOBIN A1C - [facility] 5.2 09/04/2012 07:48 AM HEMOGLOBIN A1C - [facility] 4.9 04/08/2003 09:22 AM Lab Results Component Value Date/Time TSH - [facility] 1.39 10/04/2024 03:21 PM TSH - [facility] 1.13 09/13/2022 11:17 AM TSH - [facility] 2.31 05/21/2019 07:57 AM TSH - [facility] 2.45 11/20/2018 08:53 AM TSH - [facility] 1.70 11/26/2017 01:51 PM TSH - OUTSIDE LAB 1.419 12/05/2021 12:00 AM No results found for: "KELY" Results for orders placed or performed in visit on 02/06/23 VITAMIN B12 Result Value Ref Range Vitamin B12 1,186 232 - 1,245 pg/mL VITAMIN D 25 OH D2 (no units) Date Value 10/18/2005 79 10/18/2005 Unit: ng/mL 10/18/2005 (NOTE) Vitamin D, 25-OH, D3: Endogenous form of Vitamin D present in the body. Vitamin D, 25-OH, D2: Used for therapeutic purposes in Vitamin D deficient states. This test was performed using the LC/MS/MS methodology. VITAMIN D 25 OH D3 (no units) Date Value 10/18/2005 15 10/18/2005 Unit: ng/mL VITAMIN D 25 TOTAL (no units) Date Value 10/18/2005 94 10/18/2005 Reference range: 20 to 100Unit: ng/mL 25 OH VITAMIN D (ng/mL) Date Value 01/30/2005 19.3 Vitamin D Level Interpretation deficient: <20 ng/ml insufficient: 20-30 ng/ml normal: 31-100 ng/ml REVIEW OF SYSTEMS: As above PHYSICAL EXAM: BP 150/88 | Pulse 82 | Temp 36.9 °C (98.4 °F) (Skin) | Resp 20 | Wt 62.1 kg (136 lb 12.8 oz) | LMP 01/24/2019 (Approximate) | BMI 28.59 kg/m² | BSA 1.59 m² The patient is awake and alert she does not interact she has a very prominent jaw tremor which is longstanding she has a prominent left greater than right resting tremor. Tone is symmetric bilaterally reflexes mildly diffusely brisk right toe query upgoing left toe downgoing patient is able to stand with the assistance and her gait is antalgic IMPRESSION: Longstanding history of seizures control at baseline will check levels and adjust if necessary although I suspect her weight has not declined so much that she will need a major change in anticonvulsants. She has not antalgic gait which appears to be related in part to her hip I agree with potentially having her have a hip injection. I have reached out to primary care regarding her ongoing weight loss Presumed tardive dyskinesia as well as some drug-induced parkinsonism. Managed by Psychiatry. Return in 1 year Ines Richardson MD 11/04/2024 3:02 PM documented in this encounter Plan of Treatment Upcoming Encounters Date Type Department Care Team (Late st Contact Info) Description 11/18/2024 1:45 PM EDT Office Visit Dental Medicine, [place] [address] [place] [address] Kody Dallas, DMD [address] [place] [address] 11/23/2024 2:15 PM EDT Office Visit Interventional Pain Center [facility] [address] [place] [phone] Humberto Rodríguez DO [address] [place] [phone] 04/04/2025 2:00 PM EDT Office Visit Family Practice [facility] [address] [place] [phone] Josh Holman MD [address] [place] [address] 05/09/2025 1:15 PM EDT Imaging Radiology [facility] 2nd [facility] [address] [place] [address] 06/22/2025 3:15 PM EST Office Visit Urology, [facility] [address] [place] [phone] Kwasi Dorsey MD [address] [place] [address] 10/31/2025 1:00 PM EDT Office Visit [facility] [address] [facility] [place] [address] Ines Richardson MD [address] [place] [address] Pending Results Name Type Priority Associated Diagnoses Date /Time LEVETIRACETAM LEVEL Lab Routine Generalized convulsive epilepsy without intractable epilepsy (HCC) 11/04/2024 3:06 PM EDT LAMOTRIGINE LEVEL Lab Routine Generalized convulsive epilepsy without intractable epilepsy (HCC) 11/04/2024 3:06 PM EDT CLOBAZAM, SERUM/PLASMA Lab Routine Generalized convulsive epilepsy without intractable epilepsy (HCC) 11/04/2024 3:06 PM EDT Scheduled Orders Name Type Priority Associated Diagnoses Orde r Schedule CLOBAZAM, SERUM/PLASMA Lab Routine Generalized convulsive epilepsy without intractable epilepsy (HCC) Expected: 11/04/2024, Expires: 11/04/2025 Health Maintenance Due Date Last Done Comments [...] as of this encounter Visit Diagnoses Diagnosis Generalized convulsive epilepsy without intractable epilepsy (HCC)- Primary Generalized convulsive epilepsy without mention of intractable epilepsy documented in this encounter Advance Directives Documents on File Type Date Recorded Patient Staff Climate Scientist Expl anation Power of Water Plant Maintenance Mechanic 10/06/2024 2:34 PM poa * Full Code (Latest Code Status on File) Date Activated Date Inactivated Comments 01/02/2015 1:52 PM 01/05/2015 7:23 PM This order r eflects the patients wishes and were consensually agreed upon. Question Answer Comments Discussion of Advance Direct leonidas occurred with: Family Does the patient have a Living Will? No Does the patient have Health Care Power of Water Plant Maintenance Mechanic? Yes, in chart and reviewed as current Care Teams Per Diem Physical Therapist Assistant Relationship Specialty Start Date End Date Courtney Donato MD [address] [place] [address] PCP - General Internal Medicine 06/05/21 documented as of this encounter
--- OUTSIDE RECORDS SUMMARY | 2024-12-15 18:22 | External Medical Summary | Summary of Care ---
Author Name Unknown Organization [facility] Address [address] [place] [address] Phone [phone] Care Team Providers Care Overhead Crane Truck Loader Name Role Phone Courtney Donato MD Primary Care Provider [phone] Reason for Visit * Reason Comments Outpatient Testing Encounter Details Date Type Department Care Team (Late st Contact Info) Description 11/04/2024 1:00 PM EDT Laboratory Laboratory [facility] [address] [place] [phone] [place], Lab [facility] [address] [place] [address] Generalized convulsive epilepsy without intractable epilepsy (HCC) Allergies Active Allergy Reactions Criticality Noted Date [...] -gets every 2 yrs per caregiver at [facility] Other constipation 01/13/2018 History of [...] 11/04/2011,11/08/2009,11/01/2009, 006 Pneumococcal Conjugate Vacci ne, 20-valent ([id number]) 10/07/2022 Seasonal Influenza Vac, Quad , Cell [...] 1:45 PM EDT Office Visit Dental Medicine, [place] [address] [place] [address] Kody Dallas, [facility] [address] [place] [address] 11/23/2024 2:15 PM EDT Office Visit Interventional Pain Center [facility] [address] [place] [phone] Humberto Rodríguez DO [address] [place] [phone] 04/04/2025 2:00 PM EDT Office Visit Family Practice [facility] [address] [place] [phone] Josh Holman MD [address] [place] [address] 05/09/2025 1:15 PM EDT Imaging Radiology [facility] 2nd [facility] [address] [place] [place] [address] 06/22/2025 3:15 PM EST Office Visit Urology, [facility] [address] [place] [phone] Kwasi Dorsey MD [address] [place] [address] 10/31/2025 1:00 PM EDT Office Visit Neurology [facility] [address] [facility] [place] [address] Ines Richardson MD [address] [facility] [place] [address] Pending Results Name Type Priority Associated Diagnoses Date /Time CLOBAZAM, SERUM/PLASMA Lab Routine Generalized convulsive epilepsy without intractable epilepsy (HCC) 11/04/2024 3:06 PM EDT Health Maintenance Due Date Last Done [...] Diagnosis Generalized convulsive epilepsy without intractable epilepsy (HCC) Generalized convulsive epilepsy without mention of intractable epilepsy documented in this encounter Advance Directives Documents on File Type Date Recorded Patient Window Trimmer Expl anation Power of Baby Stroller Rental Clerk 10/06/2024 2:34 PM poa * Full Code (Latest Code Status on File) Date Activated Date Inactivated Comments 01/02/2015 1:52 PM 01/05/2015 7:23 PM This order r eflects the patients wishes and were consensually agreed upon. Question Answer Comments Discussion of Advance Direct leonidas occurred with: Family Does the patient have a Living Will? No Does the patient have Health Care Power of Baby Stroller Rental Clerk? Yes, in chart and reviewed as current Care Teams Overhead Crane Truck Loader Relationship Specialty Start Date End Date Courtney Donato MD [address] [facility] [place] [address] PCP - General Internal Medicine 06/05/21 documented as of this encounter
--- OUTSIDE RECORDS SUMMARY | 2024-12-15 18:22 | External Medical Summary ---
Author Name Unknown Address Unknown Organization [id number]:[facility] [place] - [address] [place] [address] Laboratory Report Ordering Provider Test Date Status CLARK CHRISTENSEN 11/04/2024 15:06:11 Final Observation Date Value Abnormality Reference (Units ) Status Lamotrigine level 11/04/2024 15:06:11 13.0 2. 5-15.0 (ug/mL) Final Performing Location [facility] - [address] [place] [address]
--- OUTSIDE RECORDS SUMMARY | 2024-12-15 18:23 | External Medical Summary | Summary of Care ---
Author Name Unknown Organization [facility] Address [address] [place] [address] Phone [phone] Care Team Providers Care Employee Benefits Attorney Name Role Phone Courtney Donato MD Primary Care Provider [phone] Reason for Visit * Reason Comments Follow Up * Evaluate & Treat - Unlimited Visits (Within 10 days (routine)) - Pending Review Specialty Diagnoses / Procedures Referred By Jose posada Referred To Contact Gastroenterology Diagnoses Bright red rectal bleeding Positive occult stool blood test Other constipation Lesion of right lobe of liver Severe intellectual disabilities Courtney Donato MD [address] [place] [address] Phone: tel: fax: Referral ID Status Reason Start Date Expiration Date Visits Requested Visits Authorized [id number] Pending Review Specialty Services Required 05/25/[phone] Encounter Details Date Type Department Care Team (Late st Contact Info) Description 09/07/2024 11:30 AM EST Telemedicine Gastroenterology, [facility] [address] [place] [address] Nicole Gates CRNP [address] [place] [address] Rectal bleeding*; Normocytic anemia; Excessive salivation Allergies Active Allergy Reactions Criticality Noted Date Comments Nsaids 09/04/2000 Naproxen only Is able to take advil without complications Other Allergy (See Comments) 12/18/2021 Stimulants documented as of this encounter (statuses as of 09/07/2024) Medications Fructose-Dextrose -Phosphor Acd (EMETROL) 1.87-1.87-21.5 SOLN [...] Sertraline HCl 25 MG Oral Tablet Take 1 Tablet by mouth in the morning. Active Perphenazine 4 MG Oral Tablet (Trilafon)Indicat ions:Severe intellectual disabilities 2 Tablets at bedtime. 3 Active Famotidine 40 MG Oral Tablet (Pepcid)Indicatio ns:Gastroesophage al reflux disease without esophagitis TAKE 1 TABLET BY MOUTH ONCE DAILY 31 Tablet 5 4 Active QUEtiapine Fumarate ER 50 MG Oral Tablet Extended Release 24 Hour (SEROquel XR) Take 1 Tablet by mouth in the morning. Active Perphenazine 2 MG Oral Tablet (Trilafon) [...] FOR PAIN 31 Tablet 11 4 Active Austedo XR 24 MG Oral Tablet Extended Release 24 Hour (Deutetrabenazine ER) Take by mouth. Activ e Docusate Sodium 100 MG Oral Capsule (Colace)Indicatio [...] before bedtime. 90 Tablet 3 5 Active documented as of this encounter (statuses as of 09/07/2024) Active Problems Problem Noted Date Diagnosed Date Urinary incontinence, overflow 06/02/2023 Fecal incontinence not [...] -gets every [address] caregiver [address] 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 Severe intellectual disabilities documented as of this encounter (statuses as of 09/07/2024) Resolved Problems Problem Noted Date Diagnosed Date [...] as of this encounter (statuses as of 09/07/2024) Immunizations Name Administration Dates Next Due COVID-19 mRNA, LNP-s, No Pre serve, 2-Dose Series (Moderna) 10/13/2020,09/08/2020 COVID-19, MRNA-LNP, 24-25, P F, 50 MCG/0.5ML, IM, 12 YRS & ABOVE (Moderna - Spikevax) 05/21/2024 COVID-19, MRNA-LNP, 24-25, P R, 30MCG/0.3ML, IM, 12YRS AND ABOVE (Pfizer-Comirnaty) 05/25/2024 COVID-19, mRNA, LNP-s, PF, B ooster, 100mcg/0.5mg (Moderna) 03/26/2022,07/06/2021 Covid-19, Mrna, Lnp-s, Pf, B ivalent, 30 Mcg, IM, 12 yrs and above (Pfizer) 10/17/2022 PPD 09/30/2023,,03/17/2020,2018,10/20/2017,11/01/2015,11/02/2013,0 11/04/2011,11/08/2009,11/01/2009, 006 Seasonal Influenza Vac, Quad , Cell culture, with Preserve, 6 mon and above, (Flucelvax) 05/25/2024 Seasonal Influenza Vac., MDV , IM, 0.5 mL (Fluzone) 05/23/2014,05/07/2013,05/11/2012,2010,05/25/2010,07/12/2008,06/30/2007,1 08/30/2005 Seasonal Influenza Virus Vac cine, Unspecified Formulation 05/21/2024 Seasonal Influenza, PF, 6 M & above, IM , (FluLaval or Fluzone) 06/06/2022,04/22/2019,05/15/2018 Seasonal Influenza, Quadriva lent, No Preserve, IM 06/08/2021,05/27/2020,04/23/2017,2015,05/25/2015 TD - Tetanus/Diptheria (ADULT) 10/18/2005 TDAP (age [...] Author No 07/30/2016 1:00 PM EST Yessenia, Dominga rizzole, ALINA * Are you blind or do [...] documented in this encounter Progress Notes * Nicole Gates CRNP - 09/07/2024 11:43 AM EST Telemedicine Visit 09/07/2024: REFERRING PHYSICIAN: Courtney Donato MD Patient location: HOME. I was in a hospital or clinic location. After connecting through televideo,patient was verified with two unique identifiers. Patient (or authorized legal patient access representative) was then informed that this was a Telemedicine visit and being conducted confidentially over secure lines. Methods to assure confidentiality were taken. Patient acknowledged consent and understanding of pr ivacy and security of the Telemedicine visit. The patient agreed to participate. CC: Blood in BM in June, still testing (+) for occult blood in stool. HPI: Ms. Ines Delatorre is a 58 yr old female pt of Dr. Tanmay mcrae a hx of severe learning disability, living in an [facility] home. She is not verbal, not always cooperative. The video is managed by her care providers. Per staff, she has a medical proxy, her aunt who typically isn't real involved. Regarding BMs: Hard to see her BMs, because she flushes while sitting. Increasingly more frequent issues w incontinence of bowel, loose stools, not complete evacuation, intermittently. Days that they can't get her out of bed until afternoon. She also has excessive salivation which is new problem for her, causing a skin rash. Staff asks fora prescription for Rubinol. Bowel Regime: Taking one dose of daily Miralax. One dulcolax pill if no BM in 3 days. GI labs/GI Imaging: She was seen at [facility] for blood in her BMs in June 2024: records reviewed, ALk Phos sl high at 117, Hb sl low at 11.9/Hct sl low at 34.5. Other LFTS, lipase, CBC, and CMP normal. CTAP w IV contrast on 05.26.24 at [facility] no bowel obsturction, no mucosal defects, no fee air or pneumoperitoneum; no significant stool burden. EGD: none prior Colonoscopy: none prior Past Medical History: Diagnosis Date Convulsions (HCC) 05/27/2011 Generalized convulsive epilepsy without intractable epilepsy (HCC) Seizures, Epileptic Seizure disorder (HCC) 05/27/2011 On Lamictal. Severe intellectual disabilities Mental Retardation, Severe Uterine leiomyoma Family History Problem Relation Name Age of Onset Cancer Mother Other (Other) Mother SEIZURES Past Surgical History: Procedure Laterality Date ANESTHESIA FOR CAT OR MRI SCAN 11/09/09 ANESTHESIA FOR NON-INVASIVE IMAGING (MRI OR CT) performed by IN & OUT SURGERY at [facility] ANESTHESIA FOR CAT OR MRI SCAN 09/27/2010 ANESTHESIA FOR NON-INVASIVE IMAGING (MRI OR CT) performed [place] [facility] [place]LAXIS ADULT Bilateral 11/22/2022 PROPHY ADULT performed by Kody Dallas DMD at [facility] EGD, W/ENDOSCOPIC US 12/08/08 f/u with FMD INTRAOR COMPLETE FILM SERIES Bilateral 11/22/2022 INTAORAL COMPLETED SERIES performed by Kody Dallas DMD at [facility] RESIN COMPOSITE 2 SURFACES POSTERIER Bilateral 11/22/2022 RESIN BASED COMPOSITE 2 SURFACES, POSTERIOR performed by Kody Dallas DMD at [facility] TOPICAL FLUORIDE VARNISH Bilateral 11/22/2022 TOPICAL FLUORIDE VARNISH THERAPEUTIC APPLICATION FOR MODERATE TO HIGH CARIES RISK PATIENTS performed [place] Kody [place] DMD [place] [facility] [place] History Tobacco Use Smoking status: Never Smokeless tobacco: Never Substance Use Topics Alcohol use: No Drug use: No Review of patient's allergies indicates: Allergen Reactions Nsaids Naproxen only Is able to take advil without complications Other Allergy (See Comments) Stimulants Current Outpatient Medications Medication Sig Dispense Refill Xdocubey-Abbbubzq-Fhfjnjzy Acd (EMETROL) 1.87-1.87-21.5 SOLN Take 2 tablespoons by mouth every 15 minutes or until distress subsides (Patient not taking: Reported on 05/25/2024) 30 mL 0 loperamide (IMODIUM) 2 MG Capsule 2 caps by mouth after 1st loose stool then 1 by mouth after each loose stool as needed (Patient not taking: Reported on 10/31/2023) 30 Cap 0 Aloe Vera GEL Apply topically to affected area daily as needed (sunburn). Apply to affected area QUEtiapine Fumarate 200 MG Oral Tablet One pill at 8 pm 30 Tab 1 Phenylephrine HCl 10 MG Oral Tablet One tab every 4 hours as needed (Patient not taking: Reported on 10/31/2023) Alum & Mag Hydroxide-Simeth 200-200-20 MG/5ML Oral Suspension 2 tsp between meals and at bedtime as needed (Patient not taking: Reported on 10/31/2023) 1 Bottle 1 hydrocortisone 1 % cream Apply topically to affected area 3 times a day as needed. For rash. Unsureof dose (Patient not taking: Reported on 10/31/2023) 15 g 1 Sertraline HCl 25 MG Oral Tablet Take 1 Tablet by mouth in the morning. Perphenazine 4 MG Oral Tablet (Trilafon) 2 Tablets at bedtime. Famotidine 40 MG Oral Tablet (Pepcid) TAKE 1 TABLET BY MOUTH ONCE DAILY 31 Tablet 5 QUEtiapine Fumarate ER 50 MG Oral Tablet Extended Release 24 Hour (SEROquel XR) Take 1 Tablet by mouth in the morning. Perphenazine 2 MG Oral Tablet (Trilafon) Take [...] TABLET BY MOUTH IN THE MORNING 31 Pmspol21 Acetaminophen 500 MG Oral Tablet (Tylenol) TAKE 1 TABLET BY MOUTH ONCE DAILY IN THE MORNING FOR PAIN 31 Tablet 11 Austedo XR 24 MG Oral Tablet Extended Release 24 Hour (Deutetrabenazine ER) Take by mouth. Docusate Sodium 100 MG Oral Capsule (Colace) [...] HOLD FOR LOOSE STOOLS 238 g 11 No current facility-administered medications for this visit. REVIEW OF SYSTEMS: A total of 12 systems were reviewed. All other findings negative except as noted in HPI. EXAM: GENERAL: Appears stated age, well developed, well nourished in no acute distress. SKIN: No apparent rashes, jaundice, ecchymosis, oral lesions. HEENT: Neck supple. Normocephalic, sclera non-icteric LUNGS: No respiratory distress or apparent accessory muscles used. Normal chest excursion. No audible wheezing NEURO: No lateralizing findings. Cranial nerves IV, V, , VII, XI and XII in tact. Motor grossly normal. PSYCHOSOCIAL: Appropriate affect, normal memory recall, ASSESSMENT AND PLAN: Rectal bleeding (Primary) - FiberCon 625 MG Oral Tablet (Calcium Polycarbophil); Take 1 Tablet by mouth in the morning. - continue one capful of miralax daily. - considered colonoscopy. Deferred as pt would be very unlikely to cooperate w the prep. Normocytic anemia/occult positive stool Excessive salivation - Glycopyrrolate 1 MG Oral Tablet (Robinul); Take 1 Tablet by mouth in the morning and 1 Tablet at noon and 1 Tablet before bedtime. Recheck in GI in 6m and as needed. - ED for emergencies - Please call with any questions or concerns I spent a total of 30 minutes on the date of service in review of patient's record, and previously obtained information in person and appropriate medical visit, discussion and education of plan, withpatient and/or caregiver, placing orders for tests/referral/procedures as medically necessary and documentation of pertinent clinical information in patient's medical records for their visit today. RETURN TO CLINIC: 6m CHARLEEN Theodore 09/07/2024 11:43 AM R: 09/07/2024 documented in this encounter Plan of Treatment Upcoming Encounters Date Type Department Care Team (Late st Contact Info) Description 10/04/2024 1:20 PM EST Office Visit General Internal Medicine [facility] [address] [facility] [place] [address] Courtney Donato MD [address] [place] [address] 10/04/2024 3:30 PM EST Imaging Radiology [facility] 1st [facility] [address] [facility] [place] [phone] 11/04/2024 2:20 PM EDT Office Visit Neurology [facility] [address] [facility] [place] [address] Ines Richardson MD [address] [facility] [place] [address] 11/18/2024 1:30 PM EDT Office Visit Dental Medicine, [place] [address] [place] [address] Kody Dallas, [facility] [address] [place] [address] 05/09/2025 1:15 PM EDT Imaging Radiology [facility] 2nd [facility] [address] [facility] [place] [address] 05/16/2025 1:30 PM EDT Telemedicine [facility] [place] Whitaker [address] [place] [address] Dr [address] [place] [address] [facility] [address] [place] [address] Health Maintenance Due Date Last Done Comments Cologuard 2010 Colonoscopy 2010 Sigmoidoscopy 2010 Depression Monitoring 03/19/2022 03/19/2021 Mammogram 10/02/2023 10/02/2022, 09/18, 10/10/2020, Additional history exists COVID-19 Vaccine ( season) 2024 05/25/2024, 05/21/2024, 05/27/2023, Additional history exists Colorectal Cancer Screening 10/26/2024 Fecal Occult Blood Test 10/26/2024 10/27/19 24, 10/27/2023, 03/26/2022, Additional history exists DTap/Tdap Vaccines (2 - Td or Tdap) 10/31/2025 11/01/2015, 10/18/2005, 12/16/1995 Diabetes Screening 05/25/2027 05/25/2024, 0 09/30/2023, 09/13/2022, Additional history exists Lipid Panel 09/30/2028 09/30/2023, 06/09/2022, 09/13/2022, Additional history exists Zoster Vaccines Completed 12/12/2020, [...] as of this encounter Visit Diagnoses Diagnosis Rectal bleeding- Primary Hemorrhage of rectum and anus Normocytic anemia Anemia, unspecified Excessive salivation Disturbance of salivary secretion documented in this encounter Advance Directives * Full Code (Latest Code Status on File) Date Activated Date Inactivated Comments 01/02/2015 1:52 PM 01/05/2015 7:23 PM This order r eflects the patients wishes and were consensually agreed upon. Question Answer Comments Discussion of Advance Direct leonidas occurred with: Family Does the patient have a Living Will? No Does the patient have Health Care Power of Reimbursement Analyst? Yes, in chart and reviewed as current Care Teams Employee Benefits Attorney Relationship Specialty Start Date End Date Courtney Donato MD [address] [place] [place] [address] PCP - General Internal Medicine 06/05/21 documented as of this encounter
--- OUTSIDE RECORDS SUMMARY | 2024-12-15 18:23 | External Medical Summary ---
Author Name Unknown Address Unknown Organization [id number]:[facility] [place] [address] [facility] [address] Laboratory Report Ordering Provider Test Date Status MONIK FINLEY 10/04/2024 15:21:20 Final Observation Date Value Abnormality Reference (Units ) Status TSH 10/04/2024 15:21:20 1.39 0.27-4.20 (uIU/mL) Final Performing Location [facility] [place] [address] [place] [address]
--- OUTSIDE RECORDS SUMMARY | 2024-12-15 18:23 | External Medical Summary ---
Author Name Unknown Address Unknown Organization [id number][facility] [address] [place] [address] Laboratory Report Ordering Provider Test Date Status MONIK FINLEY 10/04/2024 15:21:20 Final Observation Date Value Abnormality Reference (Units ) Status SYNC LEUKOCYTES IN BLOOD BY AUTOMATED COUNT 10/04/2024 15:21:20 7.78 4.00-10.80 (K/uL) Final Segs 10/04/2024 15:21:20 55.7 40.0-75.0 (%) Final Lymphs % 10/04/2024 15:21:20 33.9 18.0-42.0 (%) Final Monos 10/04/2024 15:21:20 9.0 1.0-11.0 (%) Final Eosinophils 10/04/2024 15:21:20 1.3 0.0-6.0 (%) Final Basos 10/04/2024 15:21:20 0.1 0.0-2.0 (%) Final Absolute Segs 10/04/2024 15:21:20 4.33 1.80-7.70 (K/uL) Final Lymphs, absolute 10/04/2024 15:21:20 2.64 1.00-4.80 (K/ul) Final Monos, Abs 10/04/2024 15:21:20 0.70 0.00-1.10 (K/uL) Final Eos, Abs 10/04/2024 15:21:20 0.10 0.00-0.70 (K/uL) Final Basos, Abs 10/04/2024 15:21:20 0.01 0.00-0.20 (K/uL) Final Performing Location LABORATORY [facility] [address] [place] [address]
--- OUTSIDE RECORDS SUMMARY | 2024-12-15 18:23 | External Medical Summary | Summary of Care ---
Author Name Unknown Organization [facility] Address [address] [place] [address] Phone [phone] Care Team Providers Care Excel Expert Name Role Phone Courtney Donato MD Primary Care Provider [phone] Reason for Referral * Evaluate & Treat - Unlimited Visits (Within 10 days (routine)) - Authorized Specialty Diagnoses / Procedures Referred By Jose posada Referred To Contact Physical Therapy / Physical Medicine And Rehab Diagnoses Primary osteoarthritis of one hip, right Amanda Dave MD [address] [place] [address] Phone: tel: fax: Referral ID Status Reason Start Date Expiration Date Visits Requested Visits Authorized [id number] Authorized Specialty Services Required 10/06/2024 [id number] Question Answer Referral Priority Within 10 days (routine) Where should this appointment be scheduled? [facility] Reason for Visit * Reason Comments NEW PATIENT Bilateral hips * Evaluate & Treat - Unlimited Visits (Within 30 days (routine)) - Authorized Specialty Diagnoses / Procedures Referred By Jose t Referred To Contact Orthopaedic Surgery / Orthopedics Diagnoses Declining mobility Arthritis of right hip Courtney Donato MD [address] [place] [address] Phone: tel: fax: Referral ID Status Reason Start Date Expiration Date Visits Requested Visits Authorized [id number] Authorized Specialty Services Required 10/04/2024 [id number] Encounter Details Date Type Department Care Team (Latest Contact Info) Description 10/06/2024 1:45 PM EST Office Visit Orthopaedics [facility] [address] [place] [phone] Amanda Dave MD [address] [place] [address] Primary osteoarthritis of one hip, right*; Severe intellectual disabilities; Tremor Allergies Active Allergy Reactions Criticality Noted Date Comments Nsaids 09/04/2000 Naproxen only Is able to take advil without complications Other Allergy (See Comments) 12/18/2021 Stimulants documented as of this encounter (statuses as of 10/06/2024) Medications Fructose-Dextrose -Phosphor Acd (EMETROL) 1.87-1.87-21.5 SOLN [...] as of this encounter (statuses as of 10/06/2024) Active Problems Problem Noted Date Diagnosed Date [...] -gets every 2 yrs per caregiver at [facility] Other constipation 01/13/2018 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 Severe intellectual disabilities documented as of this encounter (statuses as of 10/06/2024) Resolved Problems Problem Noted Date Diagnosed Date [...] as of this encounter (statuses as of 10/06/2024) Immunizations Name Administration Dates Next Due COVID-19 [...] 11/04/2011,11/08/2009,11/01/2009, 006 Pneumococcal Conjugate Vacci ne, 20-valent ([id number]) 10/07/2022 Seasonal Influenza Vac, Quad , Cell [...] Date Author Yes 07/30/2016 1:00 PM EST Dominga Casas OSA documented in this encounter Progress Notes * Amanda Dave MD - 10/06/2024 2:32 PM EST Ines Delatorre is a 58 year old female who presents for consultation to [facility] for right hip injury/pain. Consult requested by Courtney Donato MD. Ines Delatorre is here with 2 staff members from [facility] History: Chief Complaint Patient presents with NEW PATIENT Bilateral hips Nursing Notes: Sarah Harrison, MED ASSIST 10/06/24 1348 Signed Pt presents today with bilateral hip pain Pt was referred by Dr. Donato The nurses state that Dr. Donato mentioned arthritis of the hips She is accompanied by 2 of her nurses Pt is typically active, but recently has not been wanting to stand and has not been eating as well -RONALD Smith Ines is a 58-year-old female with severe intellectual disability, seizure disorder who presents today for evaluation of right hip osteoarthritis referred by her primary care physician. Patient is staff who is present today provided history as patient is nonverbal. They report that patient has recently become dependent on a wheelchair and has been difficult to get up out of her bed. They think that she is now having stool incontinence because of her inability to get up out of bed. Additionally, she is losing weight. After discussion with her primary care physician recently, they think that this is due to right hip osteoarthritis. Referred to Orthopedics for further evaluation. No prior treatments for hip arthritis. Staff reports that she can not take NSAIDs. Does take Tylenol currently once a day working with Dr. Donato on increasing. Has known scoliosis. Patient is staff states that when she was ambulating would walk with her right hip hiked up. Review of systems: All others negative except those noted above in HPI. Review of patient's allergies indicates: Allergen Reactions Nsaids Naproxen only Is able to take advil without complications Other Allergy (See Comments) Stimulants Current Outpatient Medications Medication Sig Dispense Refill Meunhbdu-Elusdqbk-Rpigkwhx Acd (EMETROL) 1.87-1.87-21.5 SOLN Take 2 tablespoons [...] 2 Tablets by mouth in the morning. Perphenazine [...] TABLET BY MOUTH IN THE MORNING 31 [id number] Acetaminophen 500 MG Oral Tablet (Tylenol) TAKE [...] mouth in the morning. 30 Tablet 12 Glycopyrrolate 1 MG Oral Tablet (Robinul) Take 1 Tablet by mouth in the morning and 1 Tablet at noon and 1 Tablet before bedtime. 90 Tablet 3 Austedo XR 36 MG Oral Tablet Extended Release 24 Hour Take 1 Tablet by mouth every evening. QUEtiapine Fumarate 50 MG Oral Tablet (SEROquel) Take 1 Tablet by mouth. morning No current facility-administered medications for this visit. 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 Past Surgical History: Procedure Laterality Date ANESTHESIA FOR CAT OR MRI SCAN 11/09/09 ANESTHESIA FOR NON-INVASIVE IMAGING (MRI OR CT) performed by IN & OUT SURGERY at [facility] ANESTHESIA FOR CAT OR MRI SCAN 09/27/2010 ANESTHESIA FOR NON-INVASIVE IMAGING (MRI OR CT) performed by IN & OUT SURGERY at OR [facility] DENTAL PROPHYLAXIS ADULT Bilateral 11/22/2022 PROPHY ADULT performed by Kody Dallas DMD at [facility] EGD, W/ENDOSCOPIC US 12/08/08 f/u with FMD INTRAOR COMPLETE FILM SERIES Bilateral 11/22/2022 INTAORAL COMPLETED SERIES performed by Kdoy Dallas DMD at [facility] RESIN COMPOSITE 2 SURFACES POSTERIER Bilateral 11/22/2022 RESIN BASED COMPOSITE 2 SURFACES, POSTERIOR performed by Kody Dallas DMD at [facility] TOPICAL FLUORIDE VARNISH Bilateral 11/22/2022 TOPICAL FLUORIDE VARNISH THERAPEUTIC APPLICATION FOR MODERATE TO HIGH CARIES RISK PATIENTS performed by Kody Dallas DMD at [facility] Social History Socioeconomic History Marital status: Single [...] Onset Cancer Mother Other (Other) Mother SEIZURES Family History; none relevant to today's HPI Objective: Physical Exam There were no vitals filed for this visit. Estimated body mass index is 29.89 kg/m² as calculated from the following: Height as of 10/04/24: 1.473 m (4' 10"). Weight as of 10/04/24: 64.9 kg (143 lb). General: generally well-nourished and in no acute distress HEENT: normocephalic, atraumatic, sclera anicteric. Psych: mood and affect normal , cooperative Card: Peripheral pulses: normal in affected extremity (s) Resp: equal chest rise, non-tachypneic, non-labored breathing Skin: no rash, normal Neuro: Sensation: Resting tremor MSK: Gait not tested as patient is wheelchair-bound. Exam is extremely difficult as she does not follow instructions very well. She was able to wiggle her toes and kick her feet. She is unable to provide any response to palpation or range of motion as to whether or not this causes pain. She has a resting tremor. Radiology (I have personally reviewed the following films): X-ray from 10/04/2024 personally reviewed. Agree with Radiology interpretation of advanced degenerative changes of the right hip with qrdy-ne-sznw articulation. Cyek-yq-fqayjjys degenerative change of the left hip. Assessment and Plan: ICD-10-CM 1. Primary osteoarthritis of one hip, right M16.11 2. Severe intellectual disabilities F72 3. Tremor R25.1 58-year-old female seen today for worsening mobility, recent weight loss and stool incontinence presumed to be due to pain from hip arthritis. I discussed with the patient and her caretakers today that she does have severe hip arthritis on x-ray. I discussed options for helping to determine whether or not the hip is involved in the recent changes in patient condition would be to do a hip injection for both diagnostic and potentially therapeutic purposes. I did discuss my concerns with patient and her staff member that given her inability to fully understand, and her tremor that it is imperative that she is able to lie still for the injection in order to reduce any risk of patient harm. In order to do this she will likely require some degree of premedication. It sounds like she has tolerated Ativan prior to a CT scan in the past. Idid discuss with the patient and her staff that we are not necessarily equipped to perform this type of procedure at here in our orthopedic office based setting. Additionally, even if the hip injection is successful I am not sure if proceeding onto potential hip replacement is in patient's best interest as rehab would certainly be an issue given patient's ability to cooperate. Lastly, consent isn't if shoe as patient does not have a medical POA. She has not aunt that lives in [place] that is listed as medical proxy. Ultimately, I do think it would be a reasonable approach to trial a hip injection to see whether ornot this improves her mobility and some of the other concerns from staff including stool incontinence. I will work with my administration to see where the best place would be for her to undergo this p rocedure. Once we are able to work something out, we will contact patient is staff to have this setup. They did state that they are willing to travel if necessary outside of [place]. The above assessment and plan were discussed at length. All questions were answered, and the patient expressed understanding. Amanda Dave MD Primary Care Sports Medicine [facility] [address] [place] [address] I spent a total of Greater than 55 mins (exact time 65 mins) on the date of service in preparation,delivery, and documentation of the care provided to Ines Delatorre excluding any time spent in theperformance of separately billed services or time spent by another provider/QHP. documented in this encounter Nursing Notes * Sarah Harrison MED ASSIST - 10/06/2024 1:45 PM EST Pt presents today with bilateral hip pain Pt was referred by Dr. Donato The nurses state that Dr. Donato mentioned arthritis of the hips She is accompanied by 2 of her nurses Pt is typically active, but recently has not been wanting to stand and has not been eating as well -RONALD Smith documented in this encounter Plan of Treatment Upcoming Encounters Date Type Department Care Team (Late st Contact Info) Description 10/12/2024 12:30 PM EST Imaging Radiology [facility] [place] [address] [place] [address] 10/12/2024 1:00 PM EST Imaging Radiology [facility] [address] [place] [address] 11/04/2024 2:20 PM EDT Office Visit Neurology [facility] [address] [facility] [place] [address] Ines Richardson MD [address] [facility] [place] [address] 11/18/2024 1:45 PM EDT Office Visit Dental Medicine, [place] [address] [place] [address] Kody Dallas DMD [address] [place] [address] 04/01/2025 2:20 PM EDT Office Visit General Internal Medicine [facility] [address] [place] [address] Courtney Donato MD [facility] [address] [place] [address] 04/01/2025 2:40 PM EDT Office Visit General Internal Medicine [facility] [address] [place] [address] Courtney Donato MD 200 [facility] [place] [address] 05/09/2025 1:15 PM EDT Imaging Radiology [address] [place] [address] Scheduled Referrals Name Type Priority Associated Diagnoses Orde r Schedule PHYSICAL THERAPY REFERRAL OP Referral Within 10 days (routine) Primary osteoarthritis of one hip, right Ordered: 10/06/2024 Health Maintenance Due Date Last Done Comments Cologuard 2010 Colonoscopy 2010 Sigmoidoscopy 2010 Depression Monitoring 03/19/2022 03/19/2021 COVID-19 Vaccine ( season) 2024 05/25/2024, 05/21/2024, 05/27/2023, Additional history exists Colorectal Cancer Screening 10/26/2024 Fecal Occult Blood Test 10/26/2024 10/27/19 24, 10/27/2023, 03/26/2022, Additional history exists Mammogram 10/04/2025 10/04/2024, 09/18, 10/02/2022, Additional history exists DTap/Tdap Vaccines [...] Primary osteoarthritis of one hip, right- Primary Severe intellectual disabilities Tremor Abnormal involuntary movements documented in this encounter Advance Directives Documents on File Type Date Recorded Patient End User Support Specialist Expl anation Power of Drainage Inspector 10/06/2024 2:34 PM poa * Full Code (Latest Code Status on File) Date Activated Date Inactivated Comments 01/02/2015 1:52 PM 01/05/2015 7:23 PM This order r eflects the patients wishes and were consensually agreed upon. Question Answer Comments Discussion of Advance Direct leonidas occurred with: Family Does the patient have a Living Will? No Does the patient have Health Care Power of Drainage Inspector? Yes, in chart and reviewed as current Care Teams Excel Expert Relationship Specialty Start Date End Date Courtney Donato MD 200 [facility] [place] [address] PCP - General Internal Medicine 06/05/21 documented as of this encounter
--- OUTSIDE RECORDS SUMMARY | 2024-12-15 18:23 | External Medical Summary | Summary of Care ---
Author Name Unknown Organization [facility] Address [address] [place] [address] Phone [phone] Care Team Providers Care Marine Architect Name Role Phone Courtney Donato MD Primary Care Provider [phone] Reason for Visit * Reason Comments Outpatient Testing Encounter Details Date Type Department Care Team (Latest Contact Info) Description 10/04/2024 4:00 PM EST Laboratory Laboratory, [facility] [address] [place] [address] [facility] [address] [place] [address] Gastroesophageal reflux disease without esophagitis; Fecal occult blood test positive; Seizure disorder (HCC); Left nephrolithiasis; Lipid screening; Elevated alkaline phosphatase level; Loss of weight Allergies Active Allergy Reactions Criticality Noted Date Comments Nsaids 09/04/2000 Naproxen only Is able to take advil without complications Other Allergy (See Comments) 12/18/2021 Stimulants documented as of this encounter (statuses as of 10/05/2024) Medications Fructose-Dextrose -Phosphor Acd (EMETROL) 1.87-1.87-21.5 SOLN [...] as of this encounter (statuses as of 10/05/2024) Active Problems Problem Noted Date Diagnosed Date [...] -gets every 2 yrs per caregiver at [facility] Other constipation 01/13/2018 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 Severe intellectual disabilities documented as of this encounter (statuses as of 10/05/2024) Resolved Problems Problem Noted Date Diagnosed Date [...] as of this encounter (statuses as of 10/05/2024) Immunizations Name Administration Dates Next Due COVID-19 [...] 11/04/2011,11/08/2009,11/01/2009, 006 Pneumococcal Conjugate Vacci ne, 20-valent ([id number]) 10/07/2022 Seasonal Influenza Vac, Quad , Cell [...] Care Team (Late st Contact Info) Description 10/06/2024 1:45 PM EST Office Visit Orthopaedics [facility] [address] [place] [phone] Amanda Dave MD [address] [place] [address] 11/04/2024 2:20 PM EDT Office Visit Neurology [facility] [place] [address] [place] [address] Ines Richardson MD [address] [place] [address] 11/18/2024 1:45 PM EDT Office Visit Dental Medicine[address] [address] Kody Dallas, DMD [address] [place] [address] 04/01/2025 2:20 PM EDT Office Visit General Internal Medicine [facility] [address] [place] [address] Courtney Donato MD 200 [facility] [place] [address] 04/01/2025 2:40 PM EDT Office Visit General Internal Medicine [facility] [address] [place] [address] Courtney Donato MD 200 [facility] [place] [address] 05/09/2025 1:15 PM EDT Imaging Radiology [facility] 132 [facility] [place] [address] Pending Results Name Type Priority Associated Diagnoses Date /Time LIPID PANEL WITH DIRECT LDL IF TG IS HIGH Lab Routine Lipid screening 10/04/2024 3:21 PM EST TSH WITH FREE T4 IF INDICATED Lab Routine Loss of weight 10/04/2024 3:21 PM EST Health Maintenance Due Date Last Done Comments [...] , 09/30/2023, Additional history exists Lipid Panel 09/30/2028 09/30/2023, 01/17, 09/13/2022, Additional history exists Zoster Vaccines Completed 12/12/2020, 12/0 08/2019, 09/13/2019 Pneumococcal Vaccine: 50+ Years Completed [...] Procedure Name Priority Date/Time Associated Diagnosis Comments DIFFERENTIAL, AUTOMATED Routine 10/04/2024 3:21 PM EST Gastroesophageal reflux disease without esophagitis Fecal occult blood test positive HEPATIC FUNCTION PANEL Routine 10/04/2024 3:21 PM EST Elevated alkaline phosphatase level Seizure disorder (HCC) BASIC METABOLIC PANEL Routine 10/04/2024 3:21 PM EST Gastroesophageal reflux disease without esophagitis Seizure disorder (HCC) Left nephrolithiasis CBC Routine 10/04/2024 3:21 PM EST Gastroesophageal reflux disease without esophagitis Fecal occult blood test positive CBC Routine 10/04/2024 3:21 PM EST Gastroesophageal reflux disease without esophagitis Fecal occult blood test positive documented in this encounter Results * DIFFERENTIAL, AUTOMATED (10/04/2024 3:21 PM EST) WBC 7.78 4.00 - 10.80 K/uL 10/04/2024 3:50 PM EST [facility] [place] [facility] Neutrophils % 55.7 40.0 - 75.0 % 10/04/2024 3:50 PM EST [facility] [place] [facility] Lymphocytes % 33.9 18.0 - 42.0 % 10/04/2024 3:50 PM EST [facility] [place] [facility] Monocytes % 9.0 1.0 - 11.0 % 10/04/2024 3:50 PM EST [facility] [place] [facility] Eosinophils % 1.3 0.0 - 6.0 % 10/04/2024 3:50 PM EST [facility] [place] [facility] Basophils % 0.1 0.0 - 2.0 % 10/04/2024 3:50 PM EST [facility] [place] [facility] Absolute Neutrophils 4.33 1.80 - 7.70 K/uL 10/04/2024 3:50 PM EST [facility] [place] [facility] Absolute Lymphocytes 2.64 1.00 - 4.80 K/ul 10/04/2024 3:50 PM EST [facility] [place] [facility] Absolute Monocytes 0.70 0.00 - 1.10 K/uL 10/04/2024 3:50 PM EST [facility] [place] [facility] Absolute Eosinophils 0.10 0.00 - 0.70 K/uL 10/04/2024 3:50 PM EST [facility] [place] [facility] Absolute Basophils 0.01 0.00 - 0.20 K/uL 10/04/2024 3:50 PM EST [facility] [place] [facility] Blood Venous blood specimen / Unknown Venipuncture / Unknown 10/04/2024 3:21 PM EST 10/04/2024 3:21 PM EST us Courtney Donato MD LAB BLOOD ORDERABLES Final Resul t [facility] [place] [facility] [address] [facility] [address] * CBC (10/04/2024 3:21 PM EST) Pathologist [facility] WBC 7.78 4.00 - 10.80 K/uL 10/04/2024 3:50 PM EST [facility] 57-10 RBC 4.23 3.85 - 5.15 M/uL 10/04/2024 3:50 PM EST [facility] [place] [facility] HGB 12.8 12.0 - 15.3 g/dL 10/04/2024 3:50 PM EST [facility] [place] [facility]10 HCT 39.0 36.0 - 45.2 % 10/04/2024 3:50 PM EST [facility] [place] [facility] MCV 92.2 81.5 - 97.5 fL 10/04/2024 3:50 PM EST [facility] 57-10 MCH 30.3 27.0 - 34.0 pg 10/04/2024 3:50 PM EST [facility] 57-10 MCHC 32.8 32.0 - 36.0 g/dL 10/04/2024 3:50 PM EST [facility] 57-10 RDW 13.2 11.5 - 15.5 % 10/04/2024 3:50 PM EST [facility] 57-10 PLT 257 140 - 400 K/uL 10/04/2024 3:50 PM EST [facility] 57-10 MPV 10.6 6.6 - 11.1 fL 10/04/2024 3:50 PM EST [facility] 57-10 Blood Venous blood specimen / Unknown Venipuncture / Unknown 10/04/2024 3:21 PM EST 10/04/2024 3:21 PM EST Courtney Donato MD LAB BLOOD ORDERABLES Final Resul t [facility] [place] [facility] 57-10 [address] [place] [address] * (ABNORMAL) HEPATIC FUNCTION PANEL (10/04/2024 3:21 PM EST) Albumin 4.6 3.8 - 5.0 g/dL 10/04/2024 4:26 PM EST [facility] 57-10 AST 13 10 - 35 U/L 10/04/2024 4:26 PM EST [facility] 57-10 Alkaline Phosphatase 142(H) 35 - 130 U/L 10/04/2024 4:26 PM EST [facility] 57-10 ALT 16 10 - 35 U/L 10/04/2024 4:26 PM EST [facility] [place] 57[facility]10 Bilirubin, Total 0.2 <=1.2 mg/dL 10/04/2024 4:26 PM EST [facility] 57-10 Bilirubin, Direct 0.1 0.0 - 0.3 mg/dL 10/04/2024 4:26 PM EST [facility] 57[facility]10 Protein 6.8 6.0 - 8.3 g/dL 10/04/2024 4:26 PM EST [facility] 57-10 Blood Venous blood specimen / Unknown Venipuncture / Unknown 10/04/2024 3:21 PM EST 10/04/2024 3:21 PM EST us Courtney Donato MD LAB BLOOD ORDERABLES Final Resul t [facility] [place] [facility] [address] [place] [address] * BASIC METABOLIC PANEL (10/04/2024 3:21 PM EST) BUN 16 6 - 20 mg/dL 10/04/2024 4:26 PM EST [facility] [place] 57[facility]10 CREATININE 0.8 0.5 - 1.0 mg/dL 10/04/2024 4:26 PM EST [facility] [place] 57[facility]10 EGFR 88 >=60 mL/min 10/04/2024 4:26 PM EST [facility] 57-10 Comment:eGFR is calculated b ased on the CKD-EPI 2020 equation. SODIUM 140 135 - 146 mmol/L 10/04/2024 4:26 PM EST [facility] 57-10 POTASSIUM 3.9 3.5 - 5.1 mmol/L 10/04/2024 4:26 PM EST [facility] [place] 57[facility]10 CHLORIDE 100 98 - 107 mmol/L 10/04/2024 4:26 PM EST [facility] 57-10 CO2 28 22 - 32 mmol/L 10/04/2024 4:26 PM EST [facility] [place] [facility]10 ANION GAP 12 7 - 15 mmol/L 10/04/2024 4:26 PM EST [facility] [place] [facility]10 GLUCOSE 99 70 - 120 mg/dL 10/04/2024 4:26 PM EST [facility] [place] [facility]10 CALCIUM 9.9 8.4 - 10.2 mg/dL 10/04/2024 4:26 PM EST [facility] [place] [facility]10 Blood Venous blood specimen / Unknown Venipuncture / Unknown 10/04/2024 3:21 PM EST 10/04/2024 3:21 PM EST us Courtney Donato MD LAB BLOOD ORDERABLES Final Resul t [facility] [place] [facility] [address] [place] [address] documented in this encounter Visit Diagnoses Diagnosis Gastroesophageal reflux disease without esophagitis Esophageal reflux Fecal occult blood test positive Nonspecific abnormal finding in stool contents Seizure disorder (HCC) Unspecified epilepsy without mention of intractable epilepsy Left nephrolithiasis Lipid screening Screening for lipoid disorders Elevated alkaline phosphatase level Other nonspecific abnormal serum enzyme levels Loss of weight documented in this encounter Advance Directives * [...] the patient have Health Care Power of Yoga Teacher? Yes, in chart and reviewed as current Care Teams Marine Architect Relationship Specialty Start Date End Date [facility]ato [facility] [address] PCP - General Internal Medicine 06/05/21 documented as of this encounter
--- OUTSIDE RECORDS SUMMARY | 2024-12-15 18:23 | External Medical Summary | Summary of Care ---
Author Name Unknown Organization [facility] Address [address] [place] [address] Phone [phone] Care Team Providers Care Judge'S Clerk Name Role Phone Courtney Donato MD Primary Care Provider [phone] Reason for Referral * Evaluate & Treat - Unlimited Visits (Within 30 days (routine)) - Pending Review Specialty Diagnoses / Procedures Referred By Jose posada Referred To Contact Orthopaedic Surgery / Orthopedics Diagnoses Declining mobility Arthritis of right hip Courtney Donato MD [address] [place] [address] Phone: tel: fax: Referral ID Status Reason Start Date Expiration Date Visits Requested Visits Authorized [id number] Pending Review Specialty Services Required 10/04/[phone] Question Answer Referral Priority Within 30 days (routine) Where should this appointment be scheduled? [facility] What body part is the patient being seen for? Hip What condition is the patient being seen for? Arthritis including related infection Comments Degenerative changes are present in the right hip joint with severe joint space loss involving the superolateral aspect with marginal sclerosis and osteophytes. Reason for Visit * Reason Comments Follow Up 6 mo Encounter Details Date Type Department Care Team (Late st Contact Info) Description 10/04/2024 1:20 PM EST Office Visit General Internal Medicine [facility] [address] [facility] [address] [place] [address] Courtney Donato MD [address] [facility] [place] [id number] Severe intellectual disabilities*; Gastroesophageal reflux disease without esophagitis; Other constipation; Lesion of right lobe of liver; Elevated alkaline phosphatase level; Seizure disorder (HCC); Declining mobility; Arthritis of right hip; Other secondary scoliosis, thoracic region; Loss of weight; Excessive salivation Allergies Active Allergy Reactions Criticality [...] 16 Active QUEtiapine Fumarate 200 MG Oral TabletIndications [...] ions:Severe intellectual disabilities 2 Tablets at bedtime. 03/28/20 23 Active Famotidine 40 MG Oral Tablet (Pepcid)Indicatio ns:Gastroesophage al reflux disease without esophagitis TAKE 1 TABLET BY MOUTH ONCE DAILY 31 Tablet 5 08/28/19 24 Active Perphenazine 2 MG Oral Tablet (Trilafon) Take 1 Tablet by mouth in the morning. Active Sodium Fluoride 1.1 % Dental Cream (Denta 5000 Plus) Use a pea size amount twice daily as toothpaste 153 g 11/18/19 24 Active Chlorhexidine Gluconate 0.12 % Mouth/Throat Solution (Periogard) Use 3 times a week. Swab on teeth / gums after brushing. 473 mL 5 11/18/19 24 Active Multivitamin Oral Tablet TAKE ONE TABLET BY MOUTH IN THE MORNING 31 Tablet 11 01/26/20 24 Active Oyster Shell Calcium w/D 500-5 MG-MCG Oral Tablet TAKE ONE TABLET BY MOUTH IN THE MORNING 31 Tablet 01/26/20 24 Active Acetaminophen 500 MG Oral Tablet (Tylenol)Indicati ons:Personal history of fall,Other secondary scoliosis, thoracic region,Other abnormalities of gait and mobility TAKE 1 TABLET BY MOUTH ONCE DAILY IN THE MORNING FOR PAIN 31 Tablet 01/26/20 24 Active Docusate Sodium 100 MG Oral Capsule (Colace)Indicatio ns:Other constipation TAKE 1 CAPSULE BY MOUTH IN THE MORNING AND AT BEDTIME HOLD IF ANY LOOSE STOOLS 62 Capsule 11 03/31/20 24 Active lamoTRIgine 100 MG Oral Tablet (LaMICtal)Indicat ions:Generalized convulsive epilepsy without intractable epilepsy (HCC),Frequent falls TAKE 1/2 TABLET BY MOUTH TWICE DAILY 31 Tablet 4 07/05/20 24 Active levETIRAcetam 1000 MG Oral Tablet TAKE 1 TABLET BY MOUTH AT 8 AM AND 1 TABLET AT 8 PM 62 Tablet 4 07/05/20 24 Active levETIRAcetam 500 MG Oral Tablet (Keppra)Indicatio ns:Generalized convulsive epilepsy without intractable epilepsy (HCC) TAKE 1 TABLET BY MOUTH AT 8 AM AND 1 TABLET AT 8 PM. 62 Tablet 4 07/05/20 24 Active lamoTRIgine 200 MG Oral Tablet (LaMICtal) TAKE 1 TABLET BY MOUTH IN THE MORNING AND AT BEDTIME 62 Tablet 4 07/05/20 24 Active cloBAZam 10 MG Oral Tablet (Onfi)Indications [...] morning. 30 Tablet 12 09/07/19 25 Active Glycopyrrolate 1 MG Oral Tablet (Robinul) Take 1 Tablet by mouth in the morning and 1 Tablet at noon and 1 Tablet before bedtime. 90 Tablet 3 09/07/19 25 Active Austedo XR 36 MG Oral Tablet Extended Release 24 Hour Take 1 Tablet by mouth every evening. 09/23/19 25 Active QUEtiapine Fumarate 50 MG Oral Tablet (SEROquel) Take 1 Tablet by mouth. morning Active QUEtiapine Fumarate ER 50 MG Oral Tablet Extended Release 24 Hour (SEROquel XR) Take 1 Tablet by mouth in the morning. 025 Discontin ued(Medic ation/Dos e Changed) Austedo XR 24 MG Oral Tablet Extended Release 24 Hour (Deutetrabenazine ER) Take by mouth. 025 Discontin ued(Medic ation/Dos e Changed) documented as of this encounter (statuses as [...] 11/04/2011,11/08/2009,11/01/2009, 006 Pneumococcal Conjugate Vacci ne, 20-valent ([id number]) 10/07/2022 Seasonal Influenza Vac, Quad , Cell [...] Sign Reading Time Taken Comments Blood Pressure 120/64 10/04/2024 1:18 PM EST Pulse 78 10/04/2024 1:18 PM EST Temperature 36.4 °C (97.5 °F) 10/04/2024 1:18 PM ES T Respiratory Rate - - Oxygen Saturation - - Inhaled Oxygen Concentration - - Weight 64.9 kg (143 lb) 10/04/2024 1:18 PM EST Height 147.3 cm (4' 10") 10/04/2024 1:18 PM EST Body Mass Index 29.89 10/04/2024 1:18 PM EST documented in this encounter Functional Status * Are you deaf or do you have serious difficulty hearing? Answer Date of Assessment Author No 07/30/2016 1:00 PM EST Dominga Casas OSA * Are you blind or do [...] documented in this encounter Progress Notes * Courtney Donato MD - 10/04/2024 1:24 PM EST SUBJECTIVE: Ines Delatorre is a 56 year old female. Chief Complaint Patient presents with Follow Up 6 mo HPI: Patient being seen for 6 mth fu appt Wt Readings from Last 8 Encounters: 10/04/24 143 lb (64.9 kg) 05/25/24 150 lb 1.6 oz (68.1 kg) 03/30/24 154 lb 3.2 oz (69.9 kg) 10/31/23 153 lb 8 oz (69.6 kg) 09/30/23 150 lb 4.8 oz (68.2 kg) 03/28/23 156 lb 11.2 oz (71.1 kg) 11/22/22 156 lb (70.8 kg) 11/15/22 161 lb 1.6 oz (73.1 kg) BP Readings from Last 6 Encounters: 10/04/24 120/64 05/25/24 128/78 03/30/24 132/76 10/31/23 126/70 09/30/23 122/68 03/28/23 144/68 Patient is accompanied by 2 staff members from the [facility]. Patient with severe intellectual disability, nonverbal, f/b Psychiatrist at [facility] in past , now f/b at [place] Also has history of polydipsia, diagnosis of Autism, depression, OCD per supervisor post wave from [facility]. history of seizure disorder, followed by Neurologist Scoliosis with gait abnormality. History of somnolence, psychiatrist is trying to wean down on some of her medications, Ativan 0.5mgwas last decreased to 1 in the morning as needed and continue 1 at night.--10/11-off the Ativan, Seroquel dose was adjusted, constantly moves her hands, they have noticed that sometimes she may have some repetitive movements of the mouth, on austedo 10/11-history of GERD, on PPI since 2008 and Pepcid since 2009, advised to discontinue PPI and monitor 04/10-doing well, BM mostly daily, occ q2d EKG-in January/2014-normal sinus rhythm no abnormalities. [id number] 60-65%, no valve abnormalities. Attempted EKG 08/14/22- she pulled off the sticky pads.--order is in and can be done when under anesthesia at [facility]--was not done Patient wakes up late in the day 10-11 a.m.,, out of bed till the afternoon, they help her with showers.bedtime 8 pm She is able to walk on her own, has a walker and a wheelchair. She does not want to leave her apartment and go outside. Since summer has been incontinent of both stool and urine ;mostly if she does not get out of bed--uses pull ups extra large size. Has bowel movement every 2-3 days, they are pasty, she does not have to strain. She has a few teeth left is on a mechanical soft diet.--was to hav edental exam under anesthesia but since she could not give consent it was canceled, we could not do ekg here either as she would notcooperate Parents around 2011, has no siblings. Has an aunt Marita Munoz in [place] and they have an appointment with her with the supports coordinator group-ISP meeting on 12/28/2021, discussed the need to have a POA forms, advanced care planning regarding POLST, screening for cancers given limit ations./difficulties in getting mammogram/cologuard-- need copies of POA when completed. 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 10/10--has not been able to complete AD as they have not been able to get a hold of aunt who has no contact with patient. 04/09- Her aunt lives in [place] is power of real estate associate attorney, they have a paper where Ines signed in front of a notary but not the aunt, advised to have the paper sent to her and have it notarized and send us copy of same. 10/11--dentist calls aunt for consent Mammogram-dense breast tissue 09/2020, asymmetric density, had ultrasound 11/07/2020 which was negative, it was very difficult to have her do a diagnostic mammogram. They want her to get mammogram every 2 years.. Was ordered in 2021, unable to complete 10/02/22--mammogram-dense breast tissue, was a technically limited study due to patient's body habitus and clinical status 04/09-- "Ultrasound of the breast is only done if mammogram is abnormal, they will need to check with her power of real estate associate attorney if they wish to continue to get mammograms or not." 10/11---to ch wit her aunt if she's ok with DC mammograms., staff give her a shower until let us know if they notice any changes. -is scheduled for mammogram 10/04/2024 History of recurrent falls-- increase since 2016.It was felt perphenazine was causative ; switched to meclizine which made her very drowsy and she is back on perphenazine. Now on new [employer] austedo [employer] to 24mg per staff- -now on max 36mg/d 03/2022 given home health referral physical therapy and occupational therapy through [facility]--h/o recurrent falls nonverbal, refuses wheelchair/walker/gait belt/use shower chair. --now uses walker with tray 10/12- She liked to eat a lot of sweets cookies and pastries, had gained weight., but lost 20 lbs in2 yrs Wakes up late around 10:00 a.m., eat some applesauce or yogurt, mid day she has a large meal and then may snack or eat a smaller mean later on. No recurrent blood in the stool or black stools. Staff has also noticed previously she used to walk now she is more in a wheelchair, only walks up to the bathroom and back, they are unsure if she has any pain, is getting Tylenol 1 tablet daily. Has scoliosis. No injuries or falls. On Abd xr 06/10-Degenerative changes are present in the right hip joint with severe joint space loss involving the superolateral aspect with marginal sclerosis and osteophytes. --will obtain formal hip x-rays and refer to ortho for evaluation -consider increasing Tylenol dose and consider physical therapy 09/2021-labs- normal CBC, CMP except alk-phos 165, normal B12, CBC, mg, Lamictal level. Last TSH in 2019, she has gained weight 16 lb in the last 2 years. Recommended to get TSH done any time soon. ER 12/05/21 status post fall 1st time she fell in the kitchen lost her balance around 1:00 a.m. had a small abrasion on her head, had some bleeding, she would not let them close by. Did not have any other head injury worrisome findings, had a 2nd fall at 11 am and then was taken to the ER. Labs-normal CBC, BMP except RBS 110, LFT normal except alk-phos 151, TSH 1.419, straight cath UA was dilute and negative. Ekg-NSR Chest x-ray -no acute , bibasilar atelectasis/interstitial changes she had COVID-19 infection end of September 2021 CT head-no acute findings-calcification of the falx cerebri, mild asymmetric atrophy of the right cerebellar hemisphere which is chronic. C-spine CT no acute findings, large anterior osteophytes and mild disc space narrowing. She has a short neck She does not like to use any assistive devices to walk. Does have a transfer chair. 04/08-Immune to hepatitis-B, hepatitis-C antibodies negative, normal A1c, Lipids with slightly high triglycerides and low HDL-encourage increased activity and low-cholesterol diet. CMP except for elevated alk-phos, she saw GI; US abdomen ordered by GI>- changes of fatty liver, heterogenous lesion right lobe of the liver 2.3 x 2.5 x 3 cm MRI with contrast is recommended--caregiver to discuss with patient and let GI know of their decision. Also findings of a 10 mm nonobstructive stone left renal lower pole, additional stones are suspected right kidney appeared smaller may be related to poor visualization of the upper pole, refer to urology. Submit urine if possible. --saw urology TM 05/09--rec renal US and fu 1 yr. --saw GI 04/08--GGTP 66, rpt FOBT + Rpt US RU 08/08---Questionable ill-defined lesion in the liver measuring 2.6 cm which is nondiagnostic by ultrasound. Borders are poorly defined and findings are equivocal. If further evaluation is desired then recommend CT with liver protocol. On prior exam findings were also equivocal with poorly defined Borders.------was adv to rpt US 9 mths as she will not lay still for CT 02/21/23-Regarding: continued el ALk Phos Per GI >reg elevated liver enzymes,Advice is : "Consider repeating liver ultrasound. If larger area of "ill defined liver lesion," and if in the left lobe of the liver, then would see in clinic and offer EUS guided liver bx. Staff felt the pt would not cooperate for CT or MRI. Doubt that she would cooperate w tx for any cancers if they were present. CHARLEEN Theodore" Please let the staff know and to discuss with her POA and let us know if they wish to pursue workup as above and if so pend order for ultrasound. Had US RUQ 04/09--poor assessment of RT hep lobe region--GI sent letter not do any further w/u as she will not tolerate it. US 03/13/23, f/u 05/10---unchg , adv renal US in 1 yr ---on PPI since 2008--DC same , ct pepcid since 10/12--I saw her [id number] noted some clots on the toilet paper she normally flushes and they were not able to see any blood in the commode. The next day they also noticed a scant amount of blood on wiping her. FOBT was positive 10/27/2023. She is not a candidate for colonoscopy as she would not be able to tolerate the prep, or can not doCologuard either rash she flushes the toilet right after a bowel movement Labs--nml cbc,cmp,iron stores. --x-ray shown a gas-filled loop of bowel in the lower abdomen/pelvis likely mildly dilated loop of sigmoid colon, possible volvulus not excluded, was advised to take her to the ED for evaluation. CT abd/pelvis in ER was normal except incidental finding of bladder distention, but she had passed urine in Er per report. Incidental findings of less than 1 cm kidney stone right inferior pole of the kidney and multiple on the left side. -she saw urologist 05/11 renal ultrasound has been ordered for 1 year -Refer to GI, consider referral to colorectal surgeon if some shows any significant anemia to consider anoscopy first ------has GI telemedicine appointment 09/07/2024, advised 1 capful MiraLax daily, FiberCon 1 daily, very unlike to tolerate colonoscopy prep, for excessive salivation given Robinul 1 mg twice daily, follow up with GI in 6 months 03/10/23----unchg renal US-Shadowing calculi of 0.8 cm is noted at the lower pole Has appt rnal US 05/10 and urology 05/17/2410/10--nml a1c 5.2, TSH, cbc, cmp ex ap 163,lipids higher. 02/06/23--Nml b12, mag,Lipids high, ct low chol diet 10 yr cvd risk <5^%; GGTP higher at 100, alkphos now 176 rest lft nml.CC GI for further advice-see below 09/30/2023-Lipids better, LFT normal, alk-phos remains borderline high, normal kidney function, blood count. Continue low-cholesterol diet 10/04/2024-labs due -CBC, CMP, lipids, will add on TSH She maintains hygiene very well.No recent fever or chills. No URI symptoms chest pain or shortness of breath. No change in bowel habits. No hematuria or dysuria. No leg edema. Hep B S Ab + 03/2022 Had covid infection in apr 2023. Nurse to update correct dates of shingrix, prevnar, --printed.covid booster and flu vac 05/27/23-[facility]--printed again 10/04/2024\\ Immunization History Administered Date(s) Administered COVID-19 mRNA, LNP-s, No Preserve, 2-Dose Series (Moderna) 09/08/2020, 10/13/2020 COVID-19, MRNA-LNP, 24-25, PF, 50 MCG/0.5ML, IM, 12 YRS & ABOVE (Moderna - Spikevax) 05/21/2024 COVID-19, MRNA-LNP, 24-25, RI, 30MCG/0.3ML, IM, 12YRS AND ABOVE (Pfizer- Comirnaty) 05/25/2024 COVID-19, mRNA, LNP-s, PF, Booster, 100mcg/0.5mg (Moderna) 07/06/2021, 03/26/2022 Covid-19, Mrna, Lnp-s, Pf, Bivalent, 30 Mcg, IM, 12 yrs and above (Pfizer) 10/17/2022 PPD 10/05/2001, 10/10/2003, 10/21/2005, 11/01/2009, 11/08/2009, 11/04/2011, 11/02/2013, 11/01/2015,10/20/2017, 11/10/2018, 03/17/2020, 03/26/2022, 09/30/2023 Pneumococcal Polysaccharide PPV23 (Pneumovax) 10/12/2003 Seasonal Influenza Vac, Quad, Cell culture, with Preserve, 6 mon and above, (Flucelvax) 05/25/2024 Seasonal Influenza Vac., MDV, IM, 0.5 mL (Fluzone) 06/19/2005, 06/30/2006, 06/30/2007, 07/12/2008, 05/25/2010, 05/06/2011, 05/11/2012, 05/07/2013, 05/23/2014 Seasonal Influenza Virus Vaccine, Unspecified Formulation 05/21/2024 Seasonal Influenza, PF, 6 M & above, IM , (FluLaval or Fluzone) 05/15/2018, 04/22/2019, 06/06/2022 Seasonal Influenza, Quadrivalent, No Preserve, IM 05/25/2015, 05/01/2016, 04/23/2017, 05/27/2020, 06/08/2021 TD - Tetanus/Diptheria (ADULT) 12/16/1995, 10/18/2005 TDAP (age 10 and older)(Boostrix) 11/01/2015 Zoster Vaccine Recombinant (Shingrix) 09/13/2019, 07/18/2020, 12/12/2020 Hemoglobin Results: Lab Results Component Value Date/Time HGB 12.3 05/25/2024 04:27 PM HGB 12.8 03/30/2024 02:25 PM HGB 13.3 09/30/2023 01:01 PM HGB 13.1 12/05/2021 12:00 AM HGB 12.5 09/13/2020 03:35 PM HGB 12.7 03/17/2020 08:29 AM HGB 12.8 05/21/2019 07:57 AM Hemoglobin AIC Results: Lab Results Component Value Date/Time HEMOGLOBIN A1C - [facility] 5.2 09/13/2022 11:17 AM HEMOGLOBIN A1C - [facility] 5.5 03/26/2022 12:07 PM HEMOGLOBIN A1C - [facility] 5.5 05/21/2018 08:43 AM HEMOGLOBIN A1C - [facility] 5.2 09/04/2012 07:48 AM HEMOGLOBIN A1C - [facility] 4.9 04/08/2003 09:22 AM TSH Results: Lab Results Component Value Date/Time TSH - [facility] 1.13 09/13/2022 11:17 AM TSH - [facility] 2.31 05/21/2019 07:57 AM TSH - [facility] 2.45 11/20/2018 08:53 AM TSH - [facility] 1.70 11/26/2017 01:51 PM TSH - OUTSIDE LAB 1.419 12/05/2021 12:00 AM Results for orders placed or performed in visit on 05/25/24 COMPREHENSIVE METABOLIC PANEL Result Value Ref Range BUN 12 6 - 20 mg/dL CREATININE 0.7 0.5 - 1.0 mg/dL EGFR >90 >=60 mL/min SODIUM 137 135 - 146 mmol/L POTASSIUM 4.5 3.5 - 5.1 mmol/L CHLORIDE 100 98 - 107 mmol/L CO2 26 22 - 32 mmol/L ANION GAP 11 7 - 15 mmol/L GLUCOSE 138 (H) 70 - 120 mg/dL Albumin 4.3 3.8 - 5.0 g/dL AST 14 10 - 35 U/L Alkaline Phosphatase 126 35 - 130 U/L Bilirubin, Total <0.2 <=1.2 mg/dL CALCIUM 9.3 8.4 - 10.2 mg/dL Protein 6.7 6.0 - 8.3 g/dL ALT 15 10 - 35 U/L FERRITIN Result Value Ref Range Ferritin 56 13 - 150 ng/mL IRON SCREEN, INCLUDING TIBC Result Value Ref Range Iron 64 33 - 151 ug/dL Iron Binding Capacity 253 250 - 425 ug/dL Transferrin Saturation Percent 25 15 - 55 % CBC Result Value Ref Range WBC 5.54 4.00 - 10.80 K/uL RBC 4.02 3.85 - 5.15 M/uL HGB 12.3 12.0 - 15.3 g/dL HCT 38.0 36.0 - 45.2 % MCV 94.5 81.5 - 97.5 fL MCH 30.6 27.0 - 34.0 pg MCHC 32.4 32.0 - 36.0 g/dL RDW 12.1 11.5 - 15.5 % PLT 219 140 - 400 K/uL MPV 11.2 6.6 - 11.1 fL nRBCs 0 <=0 /100 WBCs DIFFERENTIAL, AUTOMATED Result Value Ref Range WBC 5.54 4.00 - 10.80 K/uL Neutrophils % 47.5 40.0 - 75.0 % Lymphocytes % 42.1 (H) 18.0 - 42.0 % Monocytes % 9.0 1.0 - 11.0 % Eosinophils % 0.5 0.0 - 6.0 % Basophils % 0.7 0.0 - 2.0 % Immature Granulocytes % 0.2 0.0 - 2.0 % Absolute Neutrophils 2.63 1.80 - 7.70 K/uL Absolute Lymphocytes 2.33 1.00 - 4.80 K/ul Absolute Monocytes 0.50 0.00 - 1.10 K/uL Absolute Eosinophils 0.03 0.00 - 0.70 K/uL Absolute Basophils 0.04 0.00 - 0.20 K/uL Absolute Immature Granulocytes 0.01 0.00 - 0.20 K/uL *Note: Due to a large number of results and/or encounters for the requested time period, some results have not been displayed. A complete set of results can be found in Results Review. 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 30 Tablet 12 Glycopyrrolate 1 MG Oral Tablet (Robinul) Take 1 Tablet by mouth in the morning and 1 Tablet at noon and 1 Tablet before bedtime. 90 Tablet 3 Polyethylene Glycol 3350 17 GM/SCOOP Oral Powder (Miralax) USE 1 CAPFUL (17GM) DISSOLVED IN 8 OZ OFWATER BY MOUTH DAILY MAY HOLD FOR LOOSE STOOLS 238 g 11 Docusate Sodium 100 MG Oral Capsule (Colace) TAKE 1 CAPSULE BY MOUTH IN THE MORNING AND AT BEDTIME HOLD IF ANY LOOSE STOOLS 62 Capsule 11 Famotidine 40 MG Oral Tablet (Pepcid) TAKE 1 TABLET BY MOUTH ONCE DAILY 31 Tablet 5 Alum & Mag Hydroxide-Simeth 200-200-20 MG/5ML Oral Suspension 2 tsp between meals and at bedtime as needed 1 Bottle 1 Xkzxofqx-Kbcntkhs-Wxllydjz Acd (EMETROL) 1.87-1.87-21.5 SOLN Take 2 tablespoons by mouth every 15 minutes or until distress subsides 30 mL 0 loperamide (IMODIUM) 2 MG Capsule 2 caps by mouth after 1st loose stool then 1 by mouth after each loose stool as needed 30 Cap 0 Current Outpatient Medications (Central Nervous System Agents) Medication Sig Dispense Refill QUEtiapine Fumarate 50 MG Oral Tablet (SEROquel) Take 1 Tablet by mouth. morning Perphenazine 2 MG Oral Tablet (Trilafon) Take 1 Tablet by mouth in the morning. Perphenazine 4 MG Oral Tablet (Trilafon) 2 Tablets at bedtime. QUEtiapine Fumarate 200 MG Oral Tablet One pill at 8 pm 30 Tab 1 Sertraline HCl 25 MG Oral Tablet Take 2 Tablets by mouth in the morning. Current Outpatient Medications (Analgesic/Anti-Inflammatory/Migraine/Gout Agents/Anesthetics) Medication Sig Dispense Refill Acetaminophen 500 MG Oral Tablet (Tylenol) TAKE 1 TABLET BY MOUTH ONCE DAILY IN THE MORNING FOR PAIN 31 Tablet 11 Current Outpatient Medications (Neuromuscular Agents) Medication Sig Dispense Refill cloBAZam 10 MG Oral Tablet (Onfi) TAKE 1/2 TABLET BY MOUTH AT BEDTIME 16 Tablet 5 lamoTRIgine 100 MG Oral Tablet (LaMICtal) TAKE 1/2 TABLET BY MOUTH TWICE DAILY 31 Tablet 4 lamoTRIgine 200 MG Oral Tablet (LaMICtal) TAKE 1 TABLET BY MOUTH IN THE MORNING AND AT BEDTIME 62 Tablet 4 levETIRAcetam 1000 MG Oral Tablet TAKE 1 TABLET BY MOUTH AT 8 AM AND 1 TABLET AT 8 PM 62 Tablet 4 levETIRAcetam 500 MG Oral Tablet (Keppra) TAKE 1 TABLET BY MOUTH AT 8 AM AND 1 TABLET AT 8 PM. 62 Tablet 4 Current Outpatient Medications (Nutritional Products) Medication Sig Dispense Refill Multivitamin Oral Tablet TAKE ONE TABLET BY MOUTH IN THE MORNING 31 Tablet 11 Oyster Shell Calcium w/D 500-5 MG-MCG Oral Tablet TAKE ONE TABLET BY MOUTH IN THE MORNING 31 [id number] Current Outpatient Medications (Dermatological/Anorectal/Mouth-Throat/Dental/Ophthalmic/Otic) Medication Sig Dispense Refill Chlorhexidine Gluconate 0.12 % Mouth/Throat Solution (Periogard) Use 3 times a week. Swab on teeth / gums after brushing. 473 mL 5 Sodium Fluoride 1.1 % Dental Cream (Denta 5000 Plus) Use a pea size amount twice daily as toothpaste 153 g 4 hydrocortisone 1 % cream Apply topically to affected area 3 times a day as needed. For rash. Unsureof dose 15 g 1 Aloe Vera GEL Apply topically to affected area daily as needed (sunburn). Apply to affected area Current Outpatient Medications (Psychotherapeutic & Neurological Agents - Misc) Medication Sig Dispense Refill Austedo XR 36 MG Oral Tablet Extended Release 24 Hour Take 1 Tablet by mouth every evening. Past Medical History: Diagnosis Date Convulsions ([facility]) 05/27/2011 Generalized convulsive epilepsy without intractable epilepsy (HCC) Seizures, Epileptic Seizure disorder (HCC) 05/27/2011 On Lamictal. Severe intellectual disabilities Mental Retardation, Severe Uterine leiomyoma Past Surgical History: Procedure Laterality Date ANESTHESIA FOR CAT OR MRI SCAN 11/09/09 ANESTHESIA FOR NON-INVASIVE IMAGING (MRI OR CT) performed by IN & OUT SURGERY at [facility] ANESTHESIA FOR CAT OR MRI SCAN 09/27/2010 ANESTHESIA FOR NON-INVASIVE IMAGING (MRI OR CT) performed by IN & OUT SURGERY at OR [facility] DENTAL PROPHYLAXIS ADULT Bilateral 11/22/2022 PROPHY ADULT performed by Kody Dallas DMD at [facility] EGD, W/ENDOSCOPIC US 12/08/08 f/u with FMD INTRAOR COMPLETE FILM SERIES Bilateral 11/22/2022 INTAORAL COMPLETED SERIES performed by Kody Dallas DMD at [facility] RESIN COMPOSITE 2 SURFACES POSTERIER Bilateral 11/22/2022 RESIN BASED COMPOSITE 2 SURFACES, POSTERIOR performed by Kody Dallas DMD at [facility] TOPICAL FLUORIDE VARNISH Bilateral 11/22/2022 TOPICAL FLUORIDE VARNISH THERAPEUTIC APPLICATION FOR MODERATE TO HIGH CARIES RISK PATIENTS performed by Kody Dallas DMD at [facility] Family History Problem Relation Name Age of Onset Cancer Mother Other (Other) Mother SEIZURES Social History Tobacco Use Smoking status: Never Smokeless tobacco: Never Substance Use Topics Alcohol use: No Drug use: No Review of patient's allergies indicates: Allergen Reactions Nsaids Naproxen only Is able to take advil without complications Other Allergy (See Comments) Stimulants OBJECTIVE: BP 120/64 | Pulse 78 | Temp 97.5 °F (36.4 °C) (Tympanic) | Ht 4' 10" (1.473 m) | Wt 143 lb (64.9 kg) | BMI 29.89 kg/m² | BSA 1.63 m² PHYSICAL EXAM: General: alert, healthy, no distress, well nourished and well developed, not rocking today/moaning Moans, resists detailed exam Head: Normocephalic, atraumatic Eye Exam: PERRLA, EOMI, Conjunctiva non-injected, sclera clear Ears: External ears normal OP---edges of mouth with xs saliva stain,lomite dexam tongue-mm moist Neck: supple, no bruits, no thyromegaly/LN Heart: Regular rhythm and rate, no murmurs and no gallops Lungs: lungs clear to auscultation--poor effort of inspiration Abdomen: limited in seated pson-Soft, non-tender, normal bowel sounds Extremities: no edema, no clubbing, no cyanosis. Neuro Exam: alert & oriented x 3 with fluent speech, no focal motor/sensory deficits,in WC today (Past - gait -short steps with left foot slightly everted.) Skin: skin color, texture, turgor are normal, no rashes Back-sl S shepd TH lumbar scoliosis ASSESSMENT/PLAN: Severe intellectual disabilities (Primary) Gastroesophageal reflux disease without esophagitis Other constipation Lesion of right lobe of liver Elevated alkaline phosphatase level Seizure disorder (HCC) Declining mobility - XR HIP BILAT MIN 5 VIEWS INCLUDING AP OF PELVIS; Future; Expected date: 10/04/2024 - ORTHOPAEDICS REFERRAL OP Arthritis of right hip - XR HIP BILAT MIN 5 VIEWS INCLUDING AP OF PELVIS; Future; Expected date: 10/04/2024 - ORTHOPAEDICS REFERRAL OP Other secondary scoliosis, thoracic region - XR HIP BILAT MIN 5 VIEWS INCLUDING AP OF PELVIS; Future; Expected date: 10/04/2024 Loss of weight - TSH WITH FREE T4 IF INDICATED; Future; Expected date: 10/04/2024 Excessive salivation STOP PPI 10/11, doing welll on pepcid Rpt Hb due, not candidate for csope No further w/u inc AP per gi, liver nml on CT 06/10, rpt labs today, ch tsh with wt loss Ct fu urology;psychiatry, neurology in october 2024 Is not using walker , is in wc, w/u OA and refer to ortho Med list signed. Nurse to update all her vaccines Follow Up: Return in about 6 months (around 04/03/2025), or if symptoms worsen or fail to improve, for Return with Physician, Labs Today. | For: Return with Physician, Labs Today | Check-out note: Xray today at mammogram today; jono appt ortho 40 min CPE- and will have multiple forms to complete then (This note was completed using the dictation program Fluency Direct. As such, there may be misspellings, word substitutions, or other variations that should not change the essence of the clinical content of this encounter note. If there is need for further clarification, please direct questions to the provider listed above.) Patient and / caregiver verbalize understanding of above instructions and agrees with plan of care. Courtney Donato MD 10/04/2024 documented in this encounter Nursing Notes * Rochelle Groves LPN - 10/04/2024 1:16 PM EST The patient has been properly identified by confirmation of name and date of . Chief Complaint Patient presents with Follow Up 6 mo Patient still on daily dose of Tylenol does not seem to be helping as much as before, patient not as ambulatory as before, asking if something else she can take for discomfort. Also requesting a prescription of pull-up size Large to [facility]. documented in this encounter Plan of Treatment Upcoming Encounters Date Type Department Care Team (Late st Contact Info) Description 10/06/2024 1:45 PM EST Office Visit Orthopaedics [facility] [address] [place] [phone] Amanda Dave MD [address] [place] [phone] 11/04/2024 2:20 PM EDT Office Visit Neurology [facility] [address] [facility] [place] [address] Ines Richardson MD [address] [place] [address] 11/18/2024 1:45 PM EDT Office Visit Dental Medicine, [place] [address] [place] [address] Kody Dallas, [facility] [address] [place] [address] 04/01/2025 2:20 PM EDT Office Visit General Internal Medicine [facility] [address] [place] [address] Courtney Donato MD 200 [place] [address] 04/01/2025 2:40 PM EDT Office Visit General Internal Medicine [facility] [address] [place] [address] Courtney Donato MD [address] [place] [address] 05/09/2025 1:15 PM EDT Imaging Radiology [facility] [address] [facility] [address] [facility] [place] [address] Scheduled Referrals Name Type Priority Associated Diagnoses Order Schedule ORTHOPAEDICS REFERRAL OP Referral Within 30 days (routine) Declining mobility Arthritis of right hip Ordered: 10/04/2024 Health Maintenance Due Date Last Done Comments [...] Not on filedocumented as of this encounter Results * TSH WITH FREE T4 IF INDICATED (10/04/2024 3:21 PM EST) TSH 1.39 0.27 - 4.20 uIU/mL 10/05/2024 4:08 AM EST LABORATORY [facility] Blood Venous blood specimen / Unknown Venipuncture / Unknown 10/04/2024 3:21 PM EST 10/04/2024 3:21 PM EST Courtney Donato MD LAB BLOOD ORDERABLES Final Resul t LABORATORY [facility] [address] [place] [address] * XR HIP BILAT MIN 5 VIEWS INCLUDING AP OF PELVIS (10/04/2024 3:04 PM EST) Anatomical Region Laterality Modality Lower Extremity, Hip, Pelvis Com puted Radiography 10/04/2024 9:37 PM EST Narrative 10/04/2024 9:34 PM EST EXAM: XR HIP BILAT MIN 5 VIEWS INCLUDING AP OF PELVIS HISTORY: dec mobility x 3 mths, last abd xar-sev hip OA COMPARISON:-No Comparison. FINDINGS / IMPRESSION: No acute displaced fracture or dislocation. Advanced degenerative change of the right hip. Mild degenerative change of the left hip. Procedure Note Miguel Angel Kumar MD - 10/04/2024 EXAM: XR HIP BILAT MIN 5 VIEWS INCLUDING AP OF PELVIS HISTORY: dec mobility x 3 mths, last abd xar-sev hip OA COMPARISON:-No Comparison. FINDINGS / IMPRESSION: No acute displaced fracture or dislocation. Advanced degenerative changeof the right hip. Mild degenerative change of the left hip. us Courtney Donato MD RADIOLOGY (RAD GENERAL) Final Re sult documented in this encounter Visit Diagnoses Diagnosis Severe intellectual disabilities- Primary Gastroesophageal reflux disease without esophagitis Esophageal reflux Other constipation Lesion of right lobe of liver Other specified disorders of liver Elevated alkaline phosphatase level Other nonspecific abnormal serum enzyme levels Seizure disorder (HCC) Unspecified epilepsy without mention of intractable epilepsy Declining mobility Other ill-defined conditions Arthritis of right hip Other secondary scoliosis, thoracic region Loss of weight Excessive salivation Disturbance of salivary secretion Declining mobility Other ill-defined conditions Arthritis of right hip Other secondary scoliosis, thoracic region documented in this encounter Advance Directives * [...] the patient have Health Care Power of Acid Supervisor? Yes, in chart and reviewed as current Care Teams Judge'S Clerk Relationship Specialty Start Date End Date Courtney Donato MD [address] [facility] [place] [address] PCP - General Internal Medicine 06/05/21 documented as of this encounter
--- OUTSIDE RECORDS SUMMARY | 2024-12-15 18:23 | External Medical Summary ---
Author Name Unknown Address Unknown Organization [id number]:[facility] [address] [place] [address] Laboratory Report Ordering Provider Test Date Status MONIK FINLEY 10/04/2024 15:21:20 Final Observation Date Value Abnormality Reference (Units ) Status Albumin 10/04/2024 15:21:20 4.6 3.8-5.0 (g/dL) Final AST (Aspartate aminotransferase) 10/04/2024 15:21:20 13 10-35 (U/L) Final Alk Phos 10/04/2024 15:21:20 142 Above high normal 35-130 (U/L) Final ALT (Alanine aminotransferase) 10/04/2024 15:21:20 16 10-35 (U/L) Final Bilirubin, Total 10/04/2024 15:21:20 0.2 <=1.2 (mg/dL) Final Bilirubin, Direct 10/04/2024 15:21:20 0.1 0.0-0.3 (mg/dL) Final Protein 10/04/2024 15:21:20 6.8 6.0-8.3 (g/dL) Final Performing Location [facility] [address] [place] [address]
--- OUTSIDE RECORDS SUMMARY | 2024-12-15 18:23 | External Medical Summary ---
Author Name Unknown Address Unknown Organization [id number]:[facility] - [address] [facility] [address] Laboratory Report Ordering Provider Test Date Status MONIK FINLEY 10/04/2024 15:21:20 Final Observation Date Value Abnormality Reference (Units ) Status Triglyceride 10/04/2024 15:21:20 190 Above high normal <=174 (mg/dL) Final Triglyceride Reference Range s (mg/dL):
<150 Acceptable
150-174 Borderline high
175-499 High
>=500 Very high Cholesterol 10/04/2024 15:21:20 216 Above high normal <200 (mg/dL) Final Total Cholesterol Reference Ranges (mg/dL):
<200 Desirable
200-239 Borderline high
>=240 High HDL 10/04/2024 15:21:20 48 Below low normal >49 (mg/dL) Final HDL Cholesterol Reference Ra nges (mg/dL):
>=60 High (Desirable)
<50 Low (Undesirable) For Females
<40 Low (Undesirable) For Males NON-HDL CHOLESTEROL 10/04/2024 15:21:20 168 Above high normal <=159 (mg/dL) Final Non-HDL Cholesterol Referenc e Range (mg/dL):
<100 Target level for high risk ASCVD patient
<130 Optimal for general population
130-159 Near optimal for general population
160-189 Borderline High
190-219 High
>=220 Very High LDL, (calculated) 10/04/2024 15:21:20 130 Above high n ormal <=129 (mg/dL) Final LDL Cholesterol Reference Ra nges (mg/dL):
<70 Target level for high risk ASCVD patient
<100 Optimal for general population
100-129 Near optimal for general population
130-159 Borderline high
160-189 High
>=190 Very high Performing Location [facility] - [address] [facility] [address]
--- OUTSIDE RECORDS SUMMARY | 2024-12-15 18:23 | External Medical Summary | Summary of Care ---
Author Name Unknown Organization [facility] Address [address] [place] [facility] [place] [address] Phone [phone] Care Team Providers Care Rehabilitation Case Coordinator Name Role Phone Courtney Donato MD Primary Care Provider [phone] Encounter Details Date Type Department Care Team (Late st Contact Info) Description 10/18/2024 Telephone Interventional Pain Center [facility] [address] [place] [phone] Humberto Rodríguez DO [address] [place] [phone] Allergies Active Allergy Reactions Criticality Noted Date [...] -gets every 2 yrs per caregiver at [facility] Other constipation 01/13/2018 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 I really appreciate it. Hopefully my note conveys my thoughts on this difficult case. Happy to discuss over the phone or in person if needed. There should be information on the patients medical decision maker (who is an aunt that lives in [place]) scanned into the chart. Amanda ----- Message ----- From: Humberto Rodríguez DO Sent: 10/14/2024 3:53 PM EST To: Malinda Lomax PA-C; Amanda Dave MD; # Subject: FW: Pt with ID for hip injection, thoughts? Willing to try to help this person out. Needs to be on our MAC/anesthesia day. If sedation doesn't help, I wouldn't recommend a GA for a hip injection. MP ----- Message ----- From: Josh Arredondo MD Sent: 10/14/2024 10:15 AM EST To: Humberto Rodríguez DO Subject: RE: Pt with ID for hip injection, thoughts? I think so as long as POA is properly consented. ----- Message ----- From: Humberto Rodríguez DO Sent: 10/13/2024 4:00 PM EST To: Josh Arredondo MD Subject: Pt with ID for hip injection, thoughts? Do you think we could accomplish this with MAC? Apparently will have MAC days at [facility] 1-2 days per month. History of severe ID with hip arthropathy, sports med ([place]) requesting us to do an XR guided hip injection under sedation. Appreciate your thoughts. Max ----- Message ----- From: Martha Lopez LPN Sent: 10/13/2024 1:46 PM EST To: Humberto Rodríguez DO Ortho reached out asking if we would be able to do a hip inj with sedation. Advised them we don't do that but wanted to get your thoughts to see if you have anything to offer. Read Salomón's 10/06 note please. documented in this encounter Plan of Treatment Upcoming Encounters Date Type Department Care Team (Late st Contact Info) Description 11/04/2024 2:20 PM EDT Office Visit Neurology [facility] [address] [facility] [place] [address] Ines Richardson MD [address] [facility] [place] [address] 11/18/2024 1:45 PM EDT Office Visit Dental Medicine, [place] [address] [place] [address] Kody Dallas [facility] [address] [place] [address] 11/23/2024 2:15 PM EDT Office Visit Interventional Pain Center [facility] [address] [place] [phone] Humberto Rodríguez DO [address] [place] [phone] 04/01/2025 2:20 PM EDT Office Visit General Internal Medicine [facility] [address] [place] [address] Courtney Donato MD [address] [facility] [place] [address] 04/01/2025 2:40 PM EDT Office Visit General Internal Medicine [facility] [address] [place] [address] Cuortney Donato MD [address] [facility] [place] [address] 05/09/2025 1:15 PM EDT Imaging Radiology [address] [facility] [place] [address] 06/22/2025 3:15 PM EST Office Visit Urology, [facility] [address] [place] [address] Kwasi Dorsey MD [address] [place] [address] Health Maintenance Due Date Last Done Comments [...] Documents on File Type Date Recorded 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 Question Answer Comments Discussion of Advance Direct leonidas occurred with: Family Does the patient have a Living Will? No Does the patient have Health Care Power of Softball Umpire? Yes, in chart and reviewed as current Care Teams Rehabilitation Case Coordinator Relationship Specialty Start Date End Date Courtney Donato MD [address] [place] [address] PCP - General Internal Medicine 06/05/21 documented as of this encounter
--- OUTSIDE RECORDS SUMMARY | 2024-12-15 18:23 | External Medical Summary ---
Author Name Unknown Address Unknown Organization [facility] [address] [facility] [address] [place] [address] Laboratory Report Ordering Provider Test Date Status MONIK FINLEY 10/04/2024 15:21:20 Final Observation Date Value Abnormality Reference (Units ) Status WBC, Total 10/04/2024 15:21:20 7.78 4.00-10.8 0 (K/uL) Final RBC 10/04/2024 15:21:20 4.23 3.85-5.15 (M/uL) Final Hemoglobin 10/04/2024 15:21:20 12.8 12.0-15.3 (g/dL) Final HCT 10/04/2024 15:21:20 39.0 36.0-45.2 (%) Final MCV 10/04/2024 15:21:20 92.2 81.5-97.5 (fL) Final MCH 10/04/2024 15:21:20 30.3 27.0-34.0 (pg) Final MCHC 10/04/2024 15:21:20 32.8 32.0-36.0 (g/dL) Final RDW 10/04/2024 15:21:20 13.2 11.5-15.5 (%) Final Platelets 10/04/2024 15:21:20 257 140-400 (K /uL) Final MPV 10/04/2024 15:21:20 10.6 6.6-11.1 ( fL) Final Performing Location [facility] [address] [place] [address]
--- OUTSIDE RECORDS SUMMARY | 2024-12-15 18:23 | External Medical Summary | Summary of Care ---
Author Name Unknown Organization [facility] Address [address] [place] [address] Phone [phone] Care Team Providers Care Consumer Educator Name Role Phone Courtney Donato MD Primary Care Provider [phone] Reason for Referral * Evaluate & Treat - Unlimited Visits (Within 30 days (routine)) - Pending Review Specialty Diagnoses / Procedures Referred By Jose posada Referred To Contact Orthopaedic Surgery / Orthopedics Diagnoses Declining mobility Arthritis of right hip Courtney Donato MD [address] [place] [address] Phone: tel: fax: Referral ID Status Reason Start Date Expiration Date Visits Requested Visits Authorized [id number] Pending Review Specialty Services Required 10/04/2024 999 [...] General Internal Medicine [place] Radha Bell 200 [facility] [place] [address] Courtney Donato MD 200 [facility] [place] [address] Severe intellectual disabilities*; Gastroesophageal reflux disease without [...] every 2 yrs per caregiver at [facility] Other constipation 01/13/2018 History of [...] 11/04/2011,11/08/2009,11/01/2009, 006 Pneumococcal Conjugate Vacci ne, 20-valent ([id number]) 10/07/2022 Seasonal Influenza Vac, Quad , Cell [...] by 2 staff members from the [facility]. Patient with severe intellectual disability, nonverbal, f/b Psychiatrist at [facility] in past , now f/b at [facility] Also has history of polydipsia, diagnosis of Autism, depression, OCD per spinning and winding supervisor from [facility]. history of seizure disorder, followed [...] q2d EKG-in January/2014-normal sinus rhythm no abnormalities. [id number] 60-65%, no valve abnormalities. Attempted EKG 08/14/22- she pulled off the sticky pads.--order is in and can be done when under anesthesia at [facility]--was not done Patient wakes up late in [...] siblings. Has an aunt Marita Munoz in [place] and they have an appointment with her with the supports coordinator group-ISP meeting on 12/28/2021, discussed the need to have a POA forms, advanced care planning regarding POLST, screening for cancers given limit ations./difficulties in getting mammogram/cologuard-- need copies of POA when completed. 04/08--they need a letter stating that due to her age in intellectual disabilities it is not recommended she have fish icer exams, invasive procedures like colonoscopy and recommended mammogram every 2 years. 10/10--has not been able to complete AD as they have not been able to get a hold of aunt who has no contact with patient. 04/09- Her aunt lives in [place] is power of contracts attorney, they have a paper where Ines [...] need to check with her power of contracts attorney if they wish to continue to [...] is back on perphenazine. Now on new [employer] to 24mg per staff- -now on max 36mg/d 03/2022 given home health referral physical therapy and occupational therapy through [facility]--h/o recurrent falls nonverbal, refuses wheelchair/walker/gait belt/use [...] us know if they wish to pursue workupas above and if so pend order for ultrasound. Had US RUQ 04/09--poor assessment of RT hep lobe region--GI sent letter not do any further w/u as she will not tolerate it. US 03/13/23, f/u 05/10---unchg , adv renal US in 1 yr ---on PPI since 2008--DC same , ct pepcid since 10/12--I saw her [id number]/1016-[id number]-otrsc noted some clots on the toilet paper [...] shingrix, prevnar, --printed.covid booster and flu vac 05/27/23-[employer] [facility]--printed again 10/04/2024\\ Immunization History Administered Date(s) Administered COVID-19 mRNA, LNP-s, No Preserve, 2-Dose Series (Moderna) 09/08/2020, 10/13/2020 COVID-19, MRNA-LNP, 24-25, PF, 50 MCG/0.5ML, IM, 12 YRS & ABOVE (Moderna - Spikevax) 05/21/2024 COVID-19, MRNA-LNP, 24-25, WI, 30MCG/0.3ML, IM, 12YRS AND ABOVE (Pfizer- Comirnaty) [...] at bedtime as needed 1 Bottle 1 Qftfwbne-Jkjppmqf-Wldimxwn Acd (EMETROL) 1.87-1.87-21.5 SOLN Take 2 tablespoons [...] TABLET BY MOUTH IN THE MORNING 31 [id number] Current Outpatient Medications (Dermatological/Anorectal/Mouth-Throat/Dental/Ophthalmic/Otic) Medication Sig Dispense [...] evening. Past Medical History: Diagnosis Date [facility]ulsions [facility] 05/27/2011 Generalized convulsive epilepsy without intractable epilepsy (HCC) Seizures, Epileptic Seizure disorder (HCC) 05/27/2011 On Lamictal. Severe intellectual disabilities Mental Retardation, Severe Uterine leiomyoma Past Surgical History: Procedure Laterality Date ANESTHESIA FOR CAT OR MRI SCAN 11/09/09 ANESTHESIA FOR NON-INVASIVE IMAGING (MRI OR CT) performed by IN & OUT SURGERY at [facility] ANESTHESIA FOR CAT OR MRI SCAN 09/27/2010 ANESTHESIA FOR NON-INVASIVE IMAGING (MRI OR CT) performed by IN & OUT SURGERY at [facility] DENTAL PROPHYLAXIS ADULT Bilateral 11/22/2022 PROPHY ADULT performed by Kody Dallas DMD at [facility] EGD, W/ENDOSCOPIC US 12/08/08 f/u with FMD INTRAOR COMPLETE FILM SERIES Bilateral 11/22/2022 INTAORAL COMPLETED SERIES performed by Kody Dallas DMD at [facility] RESIN COMPOSITE 2 SURFACES POSTERIER Bilateral 11/22/2022 RESIN BASED COMPOSITE 2 SURFACES, POSTERIOR performed by Kody Dallas DMD at [facility] TOPICAL FLUORIDE VARNISH Bilateral 11/22/2022 TOPICAL FLUORIDE VARNISH THERAPEUTIC APPLICATION FOR MODERATE TO HIGH CARIES RISK PATIENTS performed by Kody Dallas DMD at [facility] Family History Problem Relation Name Age of [...] 10/06/2024 1:45 PM EST Office Visit Orthopaedics [facility] [address] [place] [phone] Amanda Dave MD [address] [place] [phone] 11/04/2024 2:20 PM EDT Office Visit Neurology [facility] [address] [place] [address] Ines Richardson MD 200 [place] [address] 11/18/2024 1:45 PM EDT Office Visit Dental Medicine, [place] [address] [place] [address] Kody Dallas, [facility] [address] [place] [address] 04/01/2025 2:20 PM EDT Office Visit General Internal Medicine [facility] [address] [place] [address] Courtney Donato MD 200 [facility] [place] [address] 04/01/2025 2:40 PM EDT Office Visit General Internal [facility] [address] [facility] [place] [address] Courtney Donato MD [address] [place] [address] 05/09/2025 1:15 PM EDT Imaging Radiology [facility] 2nd [facility] 132 [facility] [place] [address] Pending Results Name Type Priority Associated Diagnoses Date /Time TSH WITH FREE T4 IF INDICATED Lab Routine Loss of weight 10/04/2024 3:21 PM EST Scheduled Orders Name Type Priority Associated Diagnoses Orde r Schedule TSH WITH FREE T4 IF INDICATED Lab Routine Loss of weight Expected: 10/04/2024 (Approximate), Expires: 10/04/2025 Scheduled Referrals Name Type Priority Associated Diagnoses [...] filedocumented as of this encounter Results * XR HIP BILAT MIN 5 VIEWS [...] left hip. us Courtney Donato MD RADIOLOGY ([facility]) Final Re sult documented in this [...] the patient have Health Care Power of Splitter Machine? Yes, in chart and reviewed as current Care Teams Consumer Educator Relationship Specialty Start Date End Date Courtney Donato MD [address] [facility] [place] [address] PCP - General Internal Medicine 06/05/21 documented as of this encounter
--- OUTSIDE RECORDS SUMMARY | 2024-12-15 18:23 | External Medical Summary | Summary of Care ---
Author Name Unknown Organization [facility] Address [address] [place] [address] Phone [phone] Care Team Providers Care Hydrogen Plant Operator Name Role Phone Tushar Donato MD Primary Care Provider [phone] Reason for Visit * Reason Comments eRx-Medication Refill Encounter Details Date Type Department Care Team (Late st Contact Info) Description 08/13/2024 Refill General Internal Medicine [facility] 200 [place] [place] [address] Tushar Donato MD 200 [place] [address] Other constipation Allergies Active Allergy Reactions Criticality Noted Date Comments Nsaids 09/04/2000 Naproxen only Is able to take advil without complications Other Allergy (See Comments) 12/18/2021 Stimulants documented as of this encounter (statuses as of 08/16/2024) Medications Fructose-Dextros e-Phosphor Acd (EMETROL) 1.87-1.87-21.5 SOLN [...] DAILY 31 Tablet 5 08/28/19 24 Active QUEtiapine Fumarate ER 50 MG Oral [...] PAIN 31 Tablet 11 01/26/20 24 Active Austedo XR 24 MG Oral Tablet Extended Release 24 Hour (Deutetrabenazin e ER) Take by mouth. Activ e Docusate Sodium 100 MG Oral Capsule (Colace)Indicati [...] STOOLS 238 g 11 08/16/20 24 Active Polyethylene Glycol 3350 17 GM/SCOOP Oral Powder (Miralax)Indicat ions:Other constipation USE 1 CAPFUL (17GM) DISSOLVED IN 8 OZ OF WATER BY MOUTH DAILY MAY HOLD FOR LOOSE STOOLS 238 g 11 11/11/19 24 2023 Discontinued documented as of this encounter (statuses as of 08/16/2024) Active Problems Problem Noted Date Diagnosed Date [...] as of this encounter (statuses as of 08/16/2024) Resolved Problems Problem Noted Date Diagnosed Date [...] as of this encounter (statuses as of 08/16/2024) Immunizations Name Administration Dates Next Due COVID-19 [...] Author Yes 07/30/2016 1:00 PM EST Dominga [place]as[place]INA documented in this encounter Miscellaneous Notes * Telephone Encounter - Tushar Donato MD - 08/16/2024 9:12 AM ESTSigned Prescriptions: Disp Refills Polyethylene Glycol 3350 17 GM/SCOOP Oral *238 g 11 Sig: USE 1 CAPFUL (17GM) DISSOLVED IN 8 OZ OF WATER BY MOUTH DAILY MAY HOLD FOR LOOSE STOOLS Authorizing Provider: TUSHAR DONATO * Telephone Encounter - Bonita Becerra RPh - 08/16/2024 8:54 AM ESTPending Prescriptions: Disp Refills Polyethylene Glycol 3350 17 GM/SCOOP Oral *238 g 11 Sig: USE 1 CAPFUL (17GM) DISSOLVED IN 8 OZ OF WATER BY MOUTH DAILY MAY HOLD FOR LOOSE STOOLS * Telephone Encounter - Bonita Becerra RPh - 08/16/2024 8:54 AM EST Did you pend patient's preferred pharmacy and medication before forwarding?yes Pharmacy: [facility] [address] Pending Prescriptions: Disp Refills Polyethylene Glycol 3350 17 GM/SCOOP Oral*238 g 11 Sig: USE 1 CAPFUL (17GM) DISSOLVED IN 8 OZ OF WATER BY MOUTH DAILY MAY HOLD FOR LOOSE STOOLS Last Visit: 05/25/2024 (in office), 12/18/2021 (telemedicine) Next Visit: 10/04/2024 If no future appointments scheduled, and last appointment is greater than a year ago, please schedule patient for a follow-up appointment Last date the medication was ordered: 11/11/23 Is this request for a controlled substance?No Urine Drug Screen:No results found. However, due to the size of the patient record, not all encounters were searched. Please check Results Review for a complete set of results. Patient Phone Numbers Labs: Lab Results Component Value Date/Time CREAT 0.7 05/25/2024 04:27 PM CREAT 0.73 12/05/2021 12:00 AM CREAT 0.9 09/13/2020 03:35 PM POTASSIUM 4.5 05/25/2024 04:27 PM POTASSIUM 3.9 12/05/2021 12:00 AM POTASSIUM 4.3 09/13/2020 03:35 PM TSH 1.13 09/13/2022 11:17 AM TSH 1.419 12/05/2021 12:00 AM TSH 2.31 05/21/2019 07:57 AM LDL 150 (H) 09/30/2023 01:01 PM LDL 125 08/24/2018 05:12 PM ALT 15 05/25/2024 04:27 PM ALT 17 09/13/2020 03:35 PM HGBA1C 5.2 09/13/2022 11:17 AM HGBA1C 5.5 05/21/2018 08:43 AM documented in this encounter Plan of Treatment Upcoming Encounters Date Type Department Care Team (Late st Contact Info) Description 09/07/2024 11:30 AM EST Office Visit Gastroenterology, [facility] [address] [place] [address] Nicole Gates CRNP [address] [place] [address] 10/04/2024 1:20 PM EST Office Visit General Internal Medicine [facility] [address] [place] [address] Tushar Donato MD [address] [place] [address] 10/04/2024 3:30 PM EST Imaging Radiology [address] [address] 11/04/2024 2:20 PM EDT Office Visit Neurology [facility] 200 [facility] [place] [address] Ines Richardson MD 200 [facility] [place] [address] 11/18/2024 1:30 PM EDT Office Visit Dental Medicine, [place] [address] [place] [address] Kody Dallas, [facility] [address] [place] [address] 05/09/2025 1:15 PM EDT Imaging Radiology [address] [address] 05/16/2025 1:30 PM EDT [facility] [place] [address] [place] [address] Dr De La Rosa [address] [place] [address] Kurt Oconnell MD [address] [place] [address] Health Maintenance Due Date Last Done Comments [...] as of this encounter Visit Diagnoses Diagnosis Other constipation documented in this encounter Advance Directives * [...] the patient have Health Care Power of Director Peoplesoft? Yes, in chart and reviewed as current Care Teams Hydrogen Plant Operator Relationship Specialty Start Date End Date Tushar Donato MD [address] [place] [address] PCP - General Internal Medicine 06/05/21 documented as of this encounter
--- OUTSIDE RECORDS SUMMARY | 2024-12-15 18:23 | External Medical Summary ---
Author Name Unknown Address Unknown Organization [facility] [place] [address] [place] [address] Laboratory Report Ordering Provider Test Date Status MONIK FINLEY 10/04/2024 15:21:20 Final Observation Date Value Abnormality Reference (Units ) Status BUN 10/04/2024 15:21:20 16 6-20 (mg/dL) Final Creatinine 10/04/2024 15:21:20 0.8 0.5-1.0 (mg/dL) Final Glomerular filtration rate/1.73 sq M.predicted [Volume Rate/Area] in Serum, Plasma or Blood by Creatinine-based formula (CKD-EPI) 10/04/2024 15:21:20 88 >=60 (mL/min) Final eGFR is calculated based on the CKD-EPI 2020 equation. Sodium 10/04/2024 15:21:20 140 135-146 (m mol/L) Final Potassium 10/04/2024 15:21:20 3.9 3.5-5.1 (m mol/L) Final Cl 10/04/2024 15:21:20 100 98-107 (mm ol/L) Final CO2 10/04/2024 15:21:20 28 22-32 (mmo l/L) Final Anion gap 10/04/2024 15:21:20 12 7-15 (mmol /L) Final Glucose 10/04/2024 15:21:20 99 70-120 (mg /dL) Final Calcium 10/04/2024 15:21:20 9.9 8.4-10.2 ( mg/dL) Final Performing Location [facility] [address] [place] [address]
--- OUTSIDE RECORDS SUMMARY | 2024-12-15 18:23 | External Medical Summary | Summary of Care ---
Author Name Unknown Organization [facility] Address [address] [place] [address] Phone [phone] Care Team Providers Care Respiratory Care Program Director Name Role Phone Courtney Donato MD Primary Care Provider [phone] Encounter Details Date Type Department Care Team (Late st Contact Info) Description 09/09/2024 Population Health External Data Unspecified Department Allergies Active Allergy Reactions Criticality Noted Date Comments Nsaids 09/04/2000 Naproxen only Is able to take advil without complications Other Allergy (See Comments) 12/18/2021 Stimulants documented as of this encounter (statuses as of 09/09/2024) Medications Fructose-Dextrose -Phosphor Acd (EMETROL) 1.87-1.87-21.5 SOLN [...] MORNING FOR PAIN 31 Tablet 4 Active Austedo XR 24 MG Oral [...] as of this encounter (statuses as of 09/09/2024) Active Problems Problem Noted Date Diagnosed Date [...] -gets every 2 yrs per caregiver at [facility] Other constipation 01/13/2018 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 Severe intellectual disabilities documented as of this encounter (statuses as of 09/09/2024) Resolved Problems Problem Noted Date Diagnosed Date [...] as of this encounter (statuses as of 09/09/2024) Immunizations Name Administration Dates Next Due COVID-19 [...] PM EST Office Visit General Internal Medicine [facility] [address] [facility] [place] [address] Courtney Donato MD 200 [facility] [place] [address] 10/04/2024 3:30 PM EST Imaging Radiology [address] [place] [id number] 11/04/2024 2:20 PM EDT Office Visit Neurology [facility] 200 [facility] [place] [address] Ines Richardson MD 200 [facility] [place] [address] 11/18/2024 1:30 PM EDT Office Visit Dental Medicine, [place] [address] [place] [address] Kody Dallas, [facility] [address] [place] [address] 05/09/2025 1:15 PM EDT Imaging Radiology [address] 132 [place] [address] 05/16/2025 1:30 PM EDT [facility]icine [facility] [place] [address] [place] [address] [address] [place] [address] Kurt Oconnell MD [address] [place] [address] Health Maintenance Due Date Last Done Comments [...] filedocumented as of this encounter Advance Directives * Full Code (Latest Code Status on File) Date Activated Date Inactivated Comments 01/02/2015 1:52 PM 01/05/2015 7:23 PM This order r eflects the patients wishes and were consensually agreed upon. Question Answer Comments Discussion of Advance Direct leonidas occurred with: Family Does the patient have a Living Will? No Does the patient have Health Care Power of Fiber Analyst? Yes, in chart and reviewed as current Care Teams Respiratory Care Program Director Relationship Specialty Start Date End Date Courtney Donato MD 200 [place] [address] PCP - General Internal Medicine 06/05/21 documented as of this encounter
--- OUTSIDE RECORDS SUMMARY | 2024-12-15 18:24 | External Medical Summary | Summary of Care ---
Author Name Unknown Organization [facility] Address [address] [place] [address] Phone [phone] Care Team Providers Care Gut Sorter Name Role Phone Courtney Donato MD Primary Care Provider [phone] Encounter Details Date Type Department Care Team (Late st Contact Info) Description 06/30/2024 Telephone General Internal Medicine [facility] 200 [place] [address] Courtney Donato MD 200 [place] [address] Allergies Active Allergy Reactions Criticality Noted Date Comments Nsaids 09/04/2000 Naproxen only Is able to take advil without complications Other Allergy (See Comments) 12/18/2021 Stimulants documented as of this encounter (statuses as of 07/12/2024) Medications Fructose-Dextros e-Phosphor Acd (EMETROL) 1.87-1.87-21.5 SOLN [...] TABLET BY MOUTH ONCE DAILY 31 Tablet 08/28/19 24 Active QUEtiapine Fumarate ER 50 MG Oral Tablet Extended Release 24 Hour (SEROquel XR) Take 1 Tablet by mouth in the morning. Active Perphenazine 2 MG Oral Tablet (Trilafon) Take 1 Tablet by mouth in the morning. Active Polyethylene Glycol 3350 17 GM/SCOOP Oral Powder (Miralax)Indicat ions:Other constipation USE 1 CAPFUL (17GM) DISSOLVED IN 8 OZ OF WATER BY MOUTH DAILY MAY HOLD FOR LOOSE STOOLS 238 g 11/11/19 24 Active Sodium Fluoride 1.1 % Dental Cream (Denta 5000 Plus) Use a pea size amount twice daily as toothpaste 153 g 11/18/19 24 Active Chlorhexidine Gluconate 0.12 % Mouth/Throat Solution (Periogard) Use 3 times a week. Swab on teeth / gums after brushing. 473 mL 11/18/19 24 Active Multivitamin Oral Tablet TAKE [...] FOR PAIN 31 Tablet 01/26/20 24 Active cloBAZam 10 MG Oral Tablet (Onfi)Indication s:Seizures (HCC) TAKE 1/2 TABLET BY MOUTH AT BEDTIME 16 Tablet 02/24/20 24 Active Austedo XR 24 MG Oral Tablet Extended Release 24 Hour (Deutetrabenazin e ER) Take by mouth. Activ e Docusate Sodium 100 MG Oral Capsule (Colace)Indicati ons:Other constipation TAKE 1 CAPSULE BY MOUTH IN THE MORNING AND AT BEDTIME HOLD IF ANY LOOSE STOOLS 62 Capsule 03/31/20 24 Active lamoTRIgine 200 MG Oral Tablet (LaMICtal) TAKE 1 TABLET BY MOUTH IN THE MORNING AND AT BEDTIME 62 Tablet 01/25/20 24 2023 Discontinued levETIRAcetam 1000 MG Oral Tablet TAKE 1 TABLET BY MOUTH AT 8 AM AND 1 TABLET AT 8 PM 62 Tablet 5 01/25/20 24 2023 Discontinued levETIRAcetam 500 MG Oral Tablet (Keppra)Indicati ons:Generalized convulsive epilepsy without intractable epilepsy (HCC) TAKE 1 TABLET BY MOUTH AT 8 AM AND 1 TABLET AT 8 PM. 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 Severe intellectual disabilities documented as of this encounter (statuses as of 07/12/2024) Resolved Problems Problem Noted Date Diagnosed Date [...] as of this encounter (statuses as of 07/12/2024) Immunizations Name Administration Dates Next Due COVID-19 [...] 07/30/2016 1:00 PM EST Yessenia, Mi randolph, AILNA * Because of a physical, mental, or [...] Author Yes 07/30/2016 1:00 PM EST Yessenia, Dominga randolph, ALINA documented in this encounter Miscellaneous Notes * Telephone Encounter - Sabina Singletary LPN - 07/12/2024 4:16 PM EST Faxed to [facility]'s home care * Telephone Encounter - Courtney Donato MD - 07/06/2024 4:[address] send * Telephone Encounter - Renzo Wolfe CMA - 07/01/2024 8:30 AM EST E sig on the order was under nurse, DME would not accept. * Telephone Encounter - Courtney Donato MD - 06/30/2024 4:52 PM EST Was done yesterday , why was it cancelled? * Telephone Encounter - Renzo Wolfe CMA - 06/30/2024 4:02 PM EST Pended order. documented in this encounter Plan of Treatment Upcoming Encounters Date Type Department Care Team (Late st Contact Info) Description 09/07/2024 11:30 AM EST Office Visit Gastroenterology, [facility] [address] [place] [address] Nicole Gates CRNP [address] [place] [address] 10/04/2024 1:20 PM EST Office Visit General Internal Medicine [facility] [address] [place] [address] Courtney Donato MD [address] [place] [address] 11/04/2024 2:20 PM EDT Office Visit Neurology [facility] [address] [place] [address] Ines Richardson MD [address] [place] [address] 11/18/2024 1:30 PM EDT Office Visit Dental Medicine, [place] [address] [place] [address] Kody Dallas [facility] [address] [place], [place] [address] 05/09/2025 1:15 PM EDT Imaging Radiology [facility] 2nd [facility] [address] [place] [address] 05/16/2025 1:30 PM EDT Telemedicine [facility] [place] Whit[place] [address] [place] [address] [facility] [address] [place] [address] Health Maintenance Due Date Last Done Comments [...] Additional history exists Lipid Panel 09/30/2028 09/30/2023, 06/2 09/2022, 09/13/2022, Additional history exists Zoster Vaccines Completed 12/12/2020, 12/08/2019, 09/13/2019 Pneumococcal Vaccine: Pediatrics (0 to 5 Years) and At-Risk Patients (6 to 64 Years) Aged Out 10/07/2022, 10/12/2003 No longer eligibl e based on patient's age to complete this topic Influenza Vaccine (FLU shot) Completed 05/25/2024, 05/21/2024, [...] as of this encounter Visit Diagnoses Diagnosis Urinary incontinence, overflow- Primary Overflow incontinence Severe intellectual disabilities documented in this encounter Advance Directives * [...] the patient have Health Care Power of Trailer Assembler? Yes, in chart and reviewed as current Care Teams Gut Sorter Relationship Specialty Start Date End Date Courtney Donato MD 200 [facility] [place] [address] PCP - General Internal Medicine 06/05/21 documented as of this encounter
--- OUTSIDE RECORDS SUMMARY | 2024-12-15 18:24 | External Medical Summary | Summary of Care ---
Author Name Unknown Organization [facility] Address [address] [place] [place] [place] [address] Phone [phone] Care Team Providers Care Principal System Software Engineer Name Role Phone Courtney Donato MD Primary Care Provider [phone] Reason for Visit * Reason Comments eRx-Medication Refill Encounter Details Date Type Department Care Team (Late st Contact Info) Description 07/03/2024 Refill Neurology [facility] [address] [facility] [place] [address] Ines Johnson PA-C [address] [facility] [place] [address] Generalized convulsive epilepsy without intractable epilepsy (HCC); Frequent falls Allergies Active Allergy Reactions Criticality Noted Date Comments Nsaids 09/04/2000 Naproxen only Is able to take advil without complications Other Allergy (See Comments) 12/18/2021 Stimulants documented as of this encounter (statuses as of 07/05/2024) Medications Fructose-Dextros e-Phosphor Acd (EMETROL) 1.87-1.87-21.5 SOLN [...] LOOSE STOOLS 238 g 11 11/11/19 24 Active Sodium Fluoride 1.1 % [...] BY MOUTH AT BEDTIME 16 Tablet 5 02/24/20 24 Active Austedo XR 24 MG Oral Tablet Extended Release 24 Hour (Deutetrabenazin e ER) Take by mouth. Activ e Docusate Sodium 100 MG Oral Capsule (Colace)Indicati ons:Other constipation TAKE 1 CAPSULE BY MOUTH IN THE MORNING AND AT BEDTIME HOLD IF ANY LOOSE STOOLS 62 Capsule 03/31/20 24 Active lamoTRIgine 100 MG Oral Tablet (LaMICtal)Indica tions:Generalize d convulsive epilepsy without intractable epilepsy (HCC),Frequent falls TAKE 1/2 TABLET BY MOUTH TWICE DAILY 31 Tablet 07/05/20 24 Active levETIRAcetam 1000 MG Oral [...] BEDTIME 62 Tablet 4 07/05/20 24 Active lamoTRIgine 200 MG Oral Tablet (LaMICtal) TAKE 1 TABLET BY MOUTH IN THE MORNING AND AT BEDTIME 62 Tablet 5 01/25/20 24 2023 Discontinued levETIRAcetam 1000 MG [...] TABLET BY MOUTH TWICE DAILY 31 Tablet 5 01/25/20 24 2023 Discontinued documented as of this encounter (statuses as of 07/05/2024) Active Problems Problem Noted Date Diagnosed Date [...] -gets every 2 yrs per caregiver at [facility] Other constipation 01/13/2018 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): Per staff is not drinking in xs now, na level nml--dc diagnosis 03/28/2023 Personal history of fall 12/07/201806/2023 Staring spell 07/30/2016 05/12/2017 Aspiration of food 11/01/2015 General counseling for presc ription of oral [...] as of this encounter (statuses as of 07/05/2024) Immunizations Name Administration Dates Next Due COVID-19 [...] encounter Miscellaneous Notes * Telephone Encounter - Kenyetta Cherry, [facility] - 07/05/2024 12:19 PM ESTSigned Prescriptions: Disp Refills lamoTRIgine 100 MG Oral Tablet (LaMICtal) 31 Tab*4 Sig: TAKE 1/2TABLET BY MOUTH TWICE DAILYAuthorizing Provider: INES JOHNSON User: RAJINDER CHERRY levETIRAcetam 1000 MG Oral Tablet 62 Tab*4 Sig: TAKE 1 TABLET BY MOUTH AT 8 AM AND 1 TABLET AT 8 PMAuthorizing Provider: INES JOHNSON User: KENYETTA CHERRY levETIRAcetam 500 MG Oral Tablet (Keppra) 62 Tab*4 Sig: TAKE 1 TABLET BY MOUTH AT 8 AM AND 1 TABLET AT 8 PM.Authorizing Provider: INES JOHNSON User: KENYETTA CHERRY lamoTRIgine 200 MG Oral Tablet (LaMICtal) 62 Tab*4 Sig: TAKE 1 TABLET BY MOUTH IN THE MORNING AND AT BEDTIMEAuthorizing Provider: INES JOHNSON User: KENYETTA CHERRY documented in this encounter Plan of Treatment Upcoming Encounters Date Type Department Care Team (Late st Contact Info) Description 09/07/2024 11:30 AM EST Office Visit Gastroenterology, [facility] [address] [place] [address] Nicole Gates CRNP [address] [facility] [place] [address] 10/04/2024 1:20 PM EST Office Visit General Internal Medicine [facility] [address] [facility] [place] [address] Courtney Donato MD [address] [facility] [place] [address] 11/04/2024 2:20 PM EDT Office Visit Neurology [facility] [address] [facility] [place] [address] Ines Richardson MD [address] [facility] [place] [address] 11/18/2024 1:30 PM EDT Office Visit Dental Medicine, [place] [address] [place], [place] [id number] Kody Dallas, [facility] [address] [place] [address] 05/09/2025 1:15 PM EDT Imaging Radiology [facility] 2nd [facility] [address] [facility] [place] [address] 05/16/2025 1:30 PM EDT Telemedicine [facility] [address] [place] [id number] Kurt Oconnell MD [address] [place] [address] Health Maintenance Due Date Last Done Comments Cologuard 2010 Colonoscopy 2010 Sigmoidoscopy 2010 Depression Monitoring 03/19/2022 03/19/2021 Mammogram 10/02/2023 10/02/2022, 09/18, 10/10/2020, Additional history exists COVID-19 Vaccine ( season) 2024 05/25/2024, 05/21/2024, 05/27/2023, Additional history exists Colorectal Cancer Screening 10/26/2024 Fecal Occult Blood Test 10/26/2024 10/27/19, 10/27/2023, 03/26/2022, Additional history exists DTap/Tdap Vaccines (2 - Td or Tdap) 10/31/2025 11/01/2015, 10/18/2005, 12/16/1995 Diabetes Screening 05/25/2027 05/25/2024, 0 09/30/2023, 09/13/2022, Additional history exists Lipid Panel 09/30/2028 09/30/2023, 01/17, 09/13/2022, Additional history exists Zoster Vaccines Completed 12/12/2020, 08/2019, 09/13/2019 Pneumococcal Vaccine: Pediatrics (0 to 5 [...] convulsive epilepsy without mention of intractable epilepsy Frequent falls Personal history of fall documented in this encounter Advance Directives * [...] the patient have Health Care Power of Epic Kaleidoscope Analyst? Yes, in chart and reviewed as current Care Teams Principal System Software Engineer Relationship Specialty Start Date End Date Courtney Donato MD [address] [place] [address] PCP - General Internal Medicine 06/05/21 documented as of this encounter
--- OUTSIDE RECORDS SUMMARY | 2024-12-15 18:24 | External Medical Summary | Summary of Care ---
Author Name Unknown Organization [facility] Address [address] [place] [address] Phone [phone] Care Team Providers Care Vending Machine Servicer Name Role Phone Courtney Donato MD Primary Care Provider [phone] Reason for Visit * Reason Comments eRx-Medication Refill Encounter Details Date Type Department Care Team (Late st Contact Info) Description 08/02/2024 Refill Neurology [facility] [address] [place] [address] Ines Richardson MD [address] [place] [address] Seizures ([facility]) Allergies Active Allergy Reactions Criticality Noted Date Comments Nsaids 09/04/2000 Naproxen only Is able to take advil without complications Other Allergy (See Comments) 12/18/2021 Stimulants documented as of this encounter (statuses as of 08/03/2024) Medications Fructose-Dextros e-Phosphor Acd (EMETROL) 1.87-1.87-21.5 SOLN [...] FOR PAIN 31 Tablet 01/26/20 24 Active Austedo XR 24 MG [...] BEDTIME 16 Tablet 5 08/03/20 24 Active cloBAZam 10 MG Oral Tablet (Onfi)Indication s:Seizures (HCC) TAKE 1/2 TABLET BY MOUTH AT BEDTIME 16 Tablet 5 02/24/20 24 2023 Discontinued documented as of this encounter (statuses as of 08/03/2024) Active Problems Problem Noted Date Diagnosed Date [...] as of this encounter (statuses as of 08/03/2024) Resolved Problems Problem Noted Date Diagnosed Date [...] as of this encounter (statuses as of 08/03/2024) Immunizations Name Administration Dates Next Due COVID-19 [...] Dominga Casas OSA documented in this encounter Miscellaneous Notes * Telephone Encounter - Ines Richardson MD - 08/03/2024 2:40 PM ESTSigned Prescriptions: Disp Refills cloBAZam 10 MG Oral Tablet (Onfi) 16 Tab*5 Sig: TAKE 1/2 TABLET BY MOUTH AT BEDTIMEAuthorizing Provider: INES RICHARDSON * Telephone Encounter - Carey Weiner, MED ASSIST - 08/03/2024 2:18 PM EST Pending Prescriptions: Disp Refills cloBAZam 10 MG Oral Tablet [Pharmacy Med N*16 Tab*5 Sig: TAKE 1/2 TABLET BY MOUTH AT BEDTIME * Telephone Encounter - Linda Pruitt - 08/02/2024 1:13 PM ESTPending Prescriptions: Disp Refills cloBAZam 10 MG Oral Tablet [Pharmacy Med N*16 Tab*5 Sig: TAKE 1/2 TABLET BY MOUTH AT BEDTIME * Telephone Encounter - Izabellamartina Linda kiersten - 08/02/2024 1:11 PM EST Did you pend patient's preferred pharmacy and medication before forwarding?yes Pharmacy: [id number] Pending Prescriptions: Disp Refills cloBAZam 10 MG Oral Tablet (Onfi) [Pharma*16 Tab*5 Sig: TAKE 1/2 TABLET BY MOUTH AT BEDTIME Last Visit: 10/31/2023 (in office), 05/02/2023 (telemedicine) Next Visit: 11/04/2024 If no future appointments scheduled, and last appointment is greater than a year ago, please schedule patient for a follow-up appointment Last date the medication was ordered: 02/24/2024 Is this request for a controlled substance?Yes and urine drug screen was not completed Urine Drug Screen:No results found. However, due [...] 09/07/2024 11:30 AM EST Office Visit Gastroenterology, [address] [place] [address] Nicole Gates CRNP [address] [facility] [place] [address] 10/04/2024 1:20 PM EST Office Visit General Internal Medicine [facility] [address] [place] [address] Courtney Donato MD [address] [place] [address] 10/04/2024 3:30 PM EST Imaging Radiology [facility] [address] [facility] [address] [place] [address] 11/04/2024 2:20 PM EDT Office Visit Neurology [facility] [address] [place] [address] Ines Richardson MD [address] [facility] [place] [address] 11/18/2024 1:30 PM EDT Office Visit Dental Medicine, [place] [address] [place] [address] Kody Dallas DMD [address] [place] [address] 05/09/2025 1:15 PM EDT Imaging Radiology [facility] [address] [place] [address] 05/16/2025 1:30 PM EDT Telemedicine [facility] [address] [place] [address] [place] [address] Kurt Oconnell MD [address] [place] [address] Health Maintenance Due Date Last Done Comments [...] as of this encounter Visit Diagnoses Diagnosis Seizures (HCC) Other convulsions documented in this encounter Advance Directives * [...] the patient have Health Care Power of Mail Distribution Scheme Examiner? Yes, in chart and reviewed as current Care Teams Vending Machine Servicer Relationship Specialty Start Date End Date Courtney Donato MD [address] [place] [address] PCP - General Internal Medicine 06/05/21 documented as of this encounter
--- NOTE | 2024-12-15 19:17 | CT Scan Report ---
EXAM: CT head/brain wo con CLINICAL HISTORY: AMS TECHNIQUE: Axial non-contrast CT scan of the brain was performed from the skull base to the high parietal region. One of the following dose reduction techniques were utilized for this exam: Automated exposure control, adjustment of the mA and/or kV according to patient size, use of iterative reconstruction. COMPARISON: 07/25/2023. FINDINGS: Brain Parenchyma: Accentuated bilateral deep periventricular hypodensities likely microvascular ischemic changes. Otherwise, Normal attenuation of the cerebral hemispheres, cerebellum, and brainstem. No evidence of acute infarct, hemorrhage, or mass effect. Ventricular System: Ventricles are normal in size and configuration. No evidence of hydrocephalus or ventricular enlargement. Subarachnoid Spaces: Normal sulci and cisterns. No evidence of subarachnoid hemorrhage or extra-axial fluid collections. Cerebellum and Brainstem: Normal size and signal. No masses, lesions, or areas of abnormal density. Orbits: Normal appearance of the globes, optic nerves, and extraocular muscles. No evidence of orbital masses or abnormal density. Sinuses: Mild left maxillary sinusitis. Mastoid Air Cells: Clear mastoid air cells. No evidence of mastoiditis. Skull: Newly noted diffuse cortical thickening of the skull more at the frontal bones. IMPRESSION: 1. No acute intracranial hemorrhage, midline shift, or mass effect. stable. 2. Accentuated bilateral deep periventricular hypodensities likely microvascular ischemic changes. 3. Newly noted diffuse cortical thickening of the skull more at the frontal bones. Electronically signed by Evangelist Delatorre 12-15-2024 7:16 PM
--- NOTE | 2024-12-15 19:24 | CT Scan Report ---
EXAM: CT abd pelvis wo con CLINICAL HISTORY: UTI and history of left nephrolithiasis TECHNIQUE: Non-contrast CT of the abdomen and pelvis was performed, with the following protocol: axial images, and reconstructed coronal and sagittal images. No intravenous contrast was administered. One of the following dose reduction techniques was utilized for this exam: Automated exposure control, adjustment of the mA and/or kV according to patient size, and use of iterative reconstruction. COMPARISON: 05/25/2024. FINDINGS: Abdomen: Liver: Normal in size, shape, and density. No focal lesions, cysts, or masses were identified. Gallbladder and Biliary System: The gallbladder is normal in size and shape. No wall thickening, pericholecystic fluid, or gallstones were identified. Pancreas: Pancreatic head, body, and tail are visualized and appear normal in size and density. No pancreatic masses or calcifications were noted. Spleen: Normal in size, shape, and density. No splenic lesions or masses were identified. Kidneys and Adrenal Glands: Both kidneys are normal in size, shape, and position. Cortical thickness is within normal limits. Bilateral renal calyceal stones (more on the left side) measuring up to 5 mm on the right side and 3.7 mm on the left side. Newly noted left proximal ureteric stone measuring 6 mm with mild backpressure changes. Adrenal glands are unremarkable. Appendix: The appendix is normal in size without nhi appendiceal fat stranding and without an appendicolith. No evidence of appendiceal abscess or perforation. Pelvis: Urinary Bladder: Normal in contour and wall thickness. No intraluminal lesions. Uterus: Normal in size and contour. No masses or abnormal thickening. Mild small calcific foci are noted likely fibroids. Ovaries: Not well visualized but no gross abnormalities noted. Vagina: Normal in contour and wall thickness. Cervix: No evidence of mass or abnormal thickening. Peritoneal and Retroperitoneal Structures: No free fluid or abnormal fluid collections were identified within the abdomen or pelvis. No lymphadenopathy was noted. Atheromatous calcification of the aorta and both iliac vessels. Umbilical hernia containing fat . Bowel: Diffuse distension of the colon by fecal matter. No evidence of bowel obstruction or wall thickening. Bones and Soft Tissues: Spondylodegenrative changes . Osteoarthrtic changes of the right hip joint. Lower chest shows : Mild pericardial thickening/effusion. A hiatus hernia is noted. IMPRESSION: 1. Newly noted left proximal ureteric stone measuring 6 mm with mild backpressure changes. 2. Stable other bilateral renal calyceal stones. 3. Uterine small calcific foci are noted likely fibroids. stable. 4. Umbilical hernia containing fat . stable . Electronically signed by Evangelist Delatorre 12-15-2024 7:15 PM
[2024-12-15] MEDS ORDERED: bisacodyL 5 MG TABEC PO PRN (21:13)
[2024-12-15] MEDS ORDERED: ALBUTEROL 0.5% NEB SOLN 2.5 MG/0.5 ML VIAL NEB PRN (21:13)
[2024-12-15] MEDS ORDERED: levETIRAcetam 500 MG TAB PO SCH (21:13)
[2024-12-15] MEDS: cloBAZam 5 MG TAB PO SCH (21:35)
[2024-12-15] MEDS: ACETAMINOPHEN 325 MG TAB PO PRN (21:35)
[2024-12-15] MEDS: DOCUSATE SODIUM 100 MG CAP PO SCH (21:36)
[2024-12-15] MEDS: PIPERACILLIN/TAZOBACTAM 4.5 GM/100 ML BAG IV ONE (21:44)
[2024-12-15] MEDS: LORazepam 2 MG/1 ML VIAL IV STA (21:58)
[2024-12-15] MEDS: levETIRAcetam 500 MG TAB PO SCH (22:05)
[2024-12-15] MEDS: lamoTRIgine 25 MG TAB PO SCH (22:06)
[2024-12-15] MEDS: QUEtiapine FUMARATE 200 MG TAB PO SCH (22:07)
[2024-12-15] MEDS: GLYCOPYRROLATE 1 MG TAB PO SCH (22:07)
[2024-12-15] MEDS: lamoTRIgine 100 MG TAB PO SCH (22:08)
[2024-12-15] MEDS: ENOXAPARIN INJ 40 MG/0.4 ML SYR SQ SCH (22:08)
[2024-12-15] MEDS: METOPROLOL TARTRATE 1 MG/ML VIAL IV STA (22:11)
[2024-12-15] MEDS: SODIUM CHLORIDE 0.9% 1,000 ML IV SCH (22:16)
[2024-12-15] MEDS: PERPHENAZINE 2 MG TAB PO SCH (22:33)
[2024-12-15] MEDS: PERPHENAZINE 4 MG TAB PO SCH (22:33)
[2024-12-15] MEDS: DOXYCYCLINE HYCLATE 100 MG in DEXTROSE 5% MINI-B 100 ML IV SCH (23:04)
[2024-12-16] MEDS: PIPERACILLIN/TAZOBACTAM 4.5 GM/100 ML BAG IV SCH (03:44)
[2024-12-16 06:40] LABS: Basophils # (auto) 0.02 K/uL (0.00-0.20); Basophils % (auto) 0.2 %; Eosinophils # (auto) 0.04 K/uL (0.00-0.50); Eosinophils % (auto) 0.3 %; Hemoglobin 9.3 g/dl (12.0-16.0); Immature Granulocytes # (auto) 0.08 K/uL (0.01-0.20); Immature Granulocytes % (auto) 0.7 %; Lymphocytes # (auto) 0.74 K/uL (1.20-3.40); Lymphocytes % (auto) 6.1 %; Mean Corpuscular Hgb Conc 32.1 g/dL (32.0-36.0); Mean Corpuscular Volume 90.3 fL (80.0-100.0); Mean Platelet Volume 10.1 fL (9.4-12.4); Monocytes # (auto) 1.12 K/uL (0.11-0.59); Monocytes % (auto) 9.2 %; Neutrophils # (auto) 10.18 K/uL (1.40-6.50); Neutrophils % (auto) 83.5 %; Platelet Count 204 K/uL (130-400); RDW Coefficient of Variation 12.8 % (11.5-14.5); RDW Standard Deviation 42.3 fL (36.4-46.3); Red Blood Count 3.21 M/uL (4.20-5.40); White Blood Count 12.18 K/ul (4.8-10.8)
[2024-12-16 06:57] LABS: BUN Creatinine Ratio 23.3 (10-20); Calcium 8.2 mg/dl (8.6-10.3); Creatinine Clr Calc Pharmacy 52.9 ml/min; Magnesium 1.9 mg/dl (1.7-2.4); Potassium 4.1 mmol/L (3.5-5.1)
--- NOTE | 2024-12-16 07:15 | Hospitalist Progress Note ---
Date of Service December 16, 2024 Assessment & Plan (1) Sepsis: (2) Right upper lobe pneumonia: (3) Complicated UTI (urinary tract infection): Plan: Ines Delatorre is a nonverbal 59y/o F from [facility] with PMHx significant for severe intellectual disability, autism, epilepsy, recurrent MDD, OCD, mood disorder, history of SIADH, CKD stage III, GERD, SNHL of both ears, lesion of right lobe of liver, fecal and urinary incontinence, left nephrolithiasis, excessive salvation and generalized OA s/p recent R hip joint injection at [facility] on 11/30/24 who is admitted under our service due to sepsis secondary to underlying RUL PNA and complicated UTI in the setting of an obstructing proximal left ureteral stone with subsequent pyelonephritis. Remained febrile and tachycardic earlier this morning. Previously hypotensive but now improving with IVF. CTAP: Newly noted left proximal ureteric stone measuring 6 mm with mild backpressure changes. Now s/p cystoscopy with irrigation of bladder and Alcantara catheter placement, left ureteroscopy with stent placement and aspiration of the left kidney performed by Dr. Napoles earlier this morning. Procedural findings consistent with a severe obstruction of the left ureter stone impacted in stricture at the UPJ with severely purulent urine aspiration and irrigated from the left kidney. Urine from left kidney sent for culture. 1/2 aerobic blood cultures preliminarily growing gram positive cocci clusters. Blood culture PCR panel (+) for Staph spp. Preliminary urine culture with no growth. IV doxycycline transitioned to IV vancomycin. Continue IV Zosyn. Maintain Alcantara catheter as directed by urology. Follow results of culture obtained during above urologic procedure. Continue IVF for now. (4) Intellectual disability: (5) Change in behavior: Plan: Noted [employer] by her nursing linen room supervisor, Rochelle, from [facility]. Has severe intellectual disability. Nonverbal at baseline. Usually able to follow verbal commands and ambulates without assistance. Notable increase in lethargy per Rochelle [employer]. Also not following any commands and was incontinent of stool. Stool incontinence has happened in the distant past but not in the past few years. Head CT: No acute intracranial hemorrhage, midline shift or mass effect. Accentuated bilateral deep periventricular hypodensities likely microvascular ischemic changes. Newly noted diffuse cortical thickening of the skull more at the frontal bones. Suspect behavioral/mentation changes 2/2 above conditions. Will be inclined to obtain brain MRI if no improvement in cognitive/mentation level with the above measures. (6) Epilepsy: Plan: Follows with Dr. Ines Richardson of [facility] neurology. Continue home seizure medication regimen. Stable, well-controlled. Check Keppra and Lamictal levels. Other Chronic Medical Conditions: GERD - Continue Pepcid. Excessive Salvation - Continue glycopyrrolate. MDD/OCD/Tardive Dyskinesia - Stable on current psychiatric medication regimen, continue. Follows with psychiatry at [facility]. DVT Prophylaxis: SQ Lovenox Code Status: FULL CODE PCP: Josh Holman MD Disposition: Discharge plans uncertain at this time. Obtain PT/OT evaluations as able. Medical proxy is Mary Munoz @ [phone]. Mary is a distant aunt and lives in [place]. She is her only living relative. Did reach out and talked with her over the phone today. Relayed above updates in her plan of care. Expressed appreciation for the update. Nursing linen room supervisor at [facility] i s Rochelle @ [phone]. Tried to get a hold of Rochelle earlier but was unable. Did leave a VM for her to call back. Patient seen in collaboration with Dr. Vale. Please see addendum. I spent a total of 68 minutes coordinating, documenting, and providing care for this patient excluding time spent in the performance of separately billed services or time spent by another provider/QHP. This included personally reviewing all current laboratories and imaging studies, medical reconciliation, outpatient chart review and discussion with specialists. This chart was completed in part utilizing Speech Voice Recognition Software. Grammatical errors, random word insertions, pronoun errors, and incomplete sentences are an occasional consequence of this system due to software limi tations, ambient noise, and hardware issues. Any formal questions or concerns about the content, text, or information contained within the body of this dictation should be directly addressed to the provider for clarification. Admission and Anticipated Discharge Date Admission Date: December 15, 2024 Supervising Physician Co-Signing Physician Notes Attending Addendum: Case reviewed with the advanced practitioner. I have personally seen and examined patient at bedside I have reviewed the advanced practitioner's documentation on the date of service referenced in note, and I agree with, and take responsibility for the plan of care. please refer to her notes for full details patient seen and examined, records reviewed by myself as well all labs, imaging noted and reviewed ASSESSMENT AND PLAN diagnoses and plan of care as per advanced practitioner's notes I spent a total of 35 minutes coordinating, documenting, and providing care for this patient, excluding time spent in the performance of separately billed services or time spent by another provider/QHP. Brian Vale MD Subjective Patient seen and examined in room N282-1 s/p cystoscopy and left ureteral stent placement. History of severe intellectual disability. Nonverbal at baseline. Arousable with loud verbal stimuli however is remains quite somnolent following her procedure. Review of Systems Review of Systems: Unobtainable due to patient's cognitive status. Physical Exam Physical Exam: General/Neurologic: Middle-aged, F. Laying down in bed. Quite somnolent but opens eyes to verbal stimuli. Nonverbal at baseline. Known severe intellectual disability. Incontinent of stool and urine. NAD. Appears to be comfortable. No rigors. Respiratory: On 1L NC and saturating in the mid 90s. Normal respiratory effort. Lung sounds diminished throughout. Cardiovascular: Tachycardic rate, regular rhythm. No murmur. No BLE edema. Abdomen/GI: Normal bowel sounds, soft, nondistended, nontender to palpation in all quadrants. : Alcantara catheter intact and draining blood-tinged urine. Extremities/MSK: No cyanosis or clubbing. Unable to perform extremity strength testing due to somnolence. Results & Data Results & Data Vital Signs (Past 12 Hours) Vital Signs Temp Pulse Pulse Pulse Resp BP BP 12/16/24 04:00 36.8 C 74 18 124/71 12/16/24 00:59 36.8 C 12/15/24 22:22 84 12/15/24 22:17 38.9 C H 93 H 20 12/15/24 22:11 93 H 157/74 H 12/15/24 22:01 96 H 12/15/24 21:20 12/15/24 21:14 39.5 C H 95 H 20 12/15/24 21:13 91 H 12/15/24 20:43 95 H 12/15/24 20:00 94 H 16 BP Pulse Ox O2 Del Method 12/16/24 04:00 95 Room Air 12/16/24 00:59 12/15/24 22:22 12/15/24 22:17 157/74 H 92 Room Air 12/15/24 22:11 12/15/24 22:01 12/15/24 21:20 Room Air 12/15/24 21:14 184/71 H 90 Room Air 12/15/24 21:13 12/15/24 20:43 12/15/24 20:00 96 Room Air Laboratory Results Short CBC 12/15/24 12/16/24 Range/Units 14:02 06:27 WBC 20.81 H 12.18 H (4.8-10.8) K/ul Hgb 10.7 L 9.3 L (12.0-16.0) g/dl Hct 32.3 L 29.0 L (37.0-47.0) % Plt Count 261 204 (130-400) K/uL BMP 12/15/24 12/16/24 14:02 06:27 Sodium 135 L 137 Potassium 4.3 4.1 Chloride 98 105 Carbon Dioxide 31 26 BUN 25 H 24 H Creatinine 1.07 1.03 Glucose 124 H 109 H Calcium 8.7 8.2 L Liver Function 12/15/24 Range/Units 14:02 Total Bilirubin 0.3 (0.2-1.0) mg/dl AST 13 (13-39) U/L ALT 12 (7-52) U/L Alkaline Phosphatase 131 H (34-104) U/L Albumin 3.4 (3.4-5.0) gm/dl Urine 12/15/24 Range/Units Unknown Urine Color Dark Yellow Urine Appearance Cloudy A (Clear) Urine pH 8.5 H (4.5-7.5) Ur Specific [place] 1.026 (1.000-1.030) Urine Protein 2+ H (Negative) Urine Glucose (UA) Negative (Negative) Diagnostic Findings Chest X-Ray 12/15/24 14:01 XR chest 1V portable CLINICAL HISTORY: fever COMPARISON STUDY: 12/05/2021 FINDINGS: Single view chest demonstrates patchy airspace opacity in the right upper lobe with a hint of air bronchogram formation. Lung childers otherwise clear allowing for technique and low lung volumes. Cardiomediastinal silhouette is widened and also due to technique. IMPRESSION: Suspicious for right upper lobe infiltrate ACT 112: Negative or not required by law. Electronically signed by: Ines Myrick M.D. 12/15/2024 2:[address] 12/15/24 16:22 EXAM: CT head/brain wo con CLINICAL HISTORY: AMS TECHNIQUE: Axial non-contrast CT scan of the brain was performed from the skull base to the high parietal region. One of the following dose reduction techniques were utilized for this exam: Automated exposure control, adjustment of the mA and/or kV according to patient size, use of iterative reconstruction. COMPARISON: 07/25/2023. FINDINGS: Brain Parenchyma: Accentuated bilateral deep periventricular hypodensities likely microvascular ischemic changes. Otherwise, Normal attenuation of the cerebral hemispheres, cerebellum, and brainstem. No evidence of acute infarct, hemorrhage, or mass effect. Ventricular System: Ventricles are normal in size and configuration. No evidence of hydrocephalus or ventricular enlargement. Subarachnoid Spaces: Normal sulci and cisterns. No evidence of subarachnoid hemorrhage or extra-axial fluid collections. Cerebellum and Brainstem: Normal size and signal. No masses, lesions, or areas of abnormal density. Orbits: Normal appearance of the globes, optic nerves, and extraocular muscles. No evidence of orbital masses or abnormal density. Sinuses: Mild left maxillary sinusitis. Mastoid Air Cells: Clear mastoid air cells. No evidence of mastoiditis. Skull: Newly noted diffuse cortical thickening of the skull more at the frontal bones. IMPRESSION: 1. No acute intracranial hemorrhage, midline shift, or mass effect. stable. 2. Accentuated bilateral deep periventricular hypodensities likely microvascular ischemic changes. 3. Newly noted diffuse cortical thickening of the skull more at the frontal bones. Electronically signed by Evangelist Delatorre 12-15-2024 7:16 PM Abdomen/Pelvis CT 12/15/24 17:00 EXAM: CT abd pelvis wo con CLINICAL HISTORY: UTI and history of left nephrolithiasis TECHNIQUE: Non-contrast CT of the abdomen and pelvis was performed, with the following protocol: axial images, and reconstructed coronal and sagittal images. No intravenous contrast was administered. One of the following dose reduction techniques was utilized for this exam: Automated exposure control, adjustment of the mA and/or kV according to patient size, and use of iterative reconstruction. COMPARISON: 05/25/2024. FINDINGS: Abdomen: Liver: Normal in size, shape, and density. No focal lesions, cysts, or masses were identified. Gallbladder and Biliary System: The gallbladder is normal in size and shape. No wall thickening, pericholecystic fluid, or gallstones were identified. Pancreas: Pancreatic head, body, and tail are visualized and appear normal in size and density. No pancreatic masses or calcifications were noted. Spleen: Normal in size, shape, and density. No splenic lesions or masses were identified. Kidneys and Adrenal Glands: Both kidneys are normal in size, shape, and position. Cortical thickness is within normal limits. Bilateral renal calyceal stones (more on the left side) measuring up to 5 mm on the right side and 3.7 mm on the left side. Newly noted left proximal ureteric stone measuring 6 mm with mild backpressure changes. Adrenal glands are unremarkable. Appendix: The appendix is normal in size without nhi appendiceal fat stranding and without an appendicolith. No evidence of appendiceal abscess or perforation. Pelvis: Urinary Bladder: Normal in contour and wall thickness. No intraluminal lesions. Uterus: Normal in size and contour. No masses or abnormal thickening. Mild small calcific foci are noted likely fibroids. Ovaries: Not well visualized but no gross abnormalities noted. Vagina: Normal in contour and wall thickness. Cervix: No evidence of mass or abnormal thickening. Peritoneal and Retroperitoneal Structures: No free fluid or abnormal fluid collections were identified within the abdomen or pelvis. No lymphadenopathy was noted. Atheromatous calcification of the aorta and both iliac vessels. Umbilical hernia containing fat . Bowel: Diffuse distension of the colon by fecal matter. No evidence of bowel obstruction or wall thickening. Bones and Soft Tissues: Spondylodegenrative changes . Osteoarthrtic changes of the right hip joint. Lower chest shows : Mild pericardial thickening/effusion. A hiatus hernia is noted. IMPRESSION: 1. Newly noted left proximal ureteric stone measuring 6 mm with mild backpressure changes. 2. Stable other bilateral renal calyceal stones. 3. Uterine small calcific foci are noted likely fibroids. stable. 4. Umbilical hernia containing fat . stable . Electronically signed by Evangelist Delatorre 12-15-2024 7:15 PM Retrograde Pyelogram 12/16/24 00:00 FL retrograde includes kub CLINICAL HISTORY: LEFT RETROGRADE AND STENT COMPARISON STUDY: None pertinent FLUOROSCOPY TIME: 94.9 seconds FLUOROSCOPY IMAGES: 3 EXPOSURE DOSE: 25.23 mGy FINDINGS: Fluoroscopic guidance provided for a left retrograde pyelogram and a left ureteral stent placement. IMPRESSION: Please refer to procedural report for evaluation based upon real time fluoroscopic observation ACT 112: Negative or not required by law. Electronically signed by: Ines Myrick M.D. 12/16/2024 1:11 PM (1) Sepsis Sepsis acute organ dysfunction status: unspecified Sepsis type: sepsis due to unspecified organism Qualified Code(s): A41.9 - Sepsis, unspecified organism (2) Right upper lobe pneumonia Pneumonia type: due to unspecified organism Qualified Code(s): J18.9 - Pneumonia, unspecified organism (6) Epilepsy Epilepsy type: unspecified Intractability: not intractable Status epi lepticus: without status epilepticus Qualified Code(s): G40.909 - Epilepsy, unspecified, not intractable, without status epilepticus
[2024-12-16] MEDS: QUEtiapine FUMARATE 25 MG TABLET PO SCH (07:40)
[2024-12-16] MEDS: ADVANCED PROBIOTIC 625 MG CAPSULE PO SCH (07:40)
[2024-12-16] MEDS: SERTRALINE HCL 100 MG TABLET PO SCH (07:41)
[2024-12-16] MEDS: FAMOTIDINE 40 MG TABLET PO SCH (07:41)
--- NOTE | 2024-12-16 08:32 | Urology Consultation ---
Date of Consultation December 16, 2024 Assessment & Plan (1) Complicated UTI (urinary tract infection): (2) Left ureteral calculus: Plan CT abd pelvis notable for an obstructing proximal left ureteral stone Urinalysis concerning for infection She has been afebrile (Tmax 39.5C) but otherwise hemodynamically stable Labs show WBCs 12.18, Creatinine 1.03 Urine/blood culture pending On Zosyn and Doxycycline Given she is febrile with an obstructing stone and suspected UTI, will plan for OR today for cystoscopy and left ureteral stent placement. Attempted to contact patients medical proxy (Mary Tenorioharpal) and [facility] nursing painting department supervisor (Rochelle) listed in her chart but there was no answer for either. Keep NPO Continue supportive care and antibiotics Urology will follow Attending note: Patient independently assessed, examined, interviewed, and evaluated. Due to patient's acute and critical illness and lethargy active care and close management was overtaken by myself with plans for emergent stent placement secondary to obstructing stone with worsening and decompensating sepsis. Patient had developed hypotension and tachycardia continues to have high fevers. Is undergoing broad-spectrum antibiotic coverage. Found to have significant obstructing stone seen on CT imaging. This was reviewed and interpreted by myself. Obstructing stone at the UPJ region with significant hydronephrosis and perinephric stranding. Additionally patient has severe baseline issues with developmental delay and severe autism. Is nonverbal. According to records patient is usually fairly active but is lethargic on examination and poorly responding. Agree with note as above. Patient's vitals and labs were all reviewed. Pertinent values in the HPI and plan section. White count 12.18. Creatinine 1.03. Hemoglobin 9.3. Imaging was reviewed interpreted by myself. Agree with read. Vitals were reviewed. Discussed findings extensively with patient and family. Reviewed with nurse practitioner as well as consulting physicians/team. Also extensive phone conversation with patient's emergency contact at the skilled facility that she lives at. Due to patient's worsening decompensation and concern for developing severe sepsis plan for emergent procedure. Patient's complicated medical and surgical history was reviewed and summarized above. Patient's surgical, medical, social, and family history were all reviewed with pertinent values as above. Discussed patient's current diagnosis as well as concerns and issues with emergency contact. Reviewed different options moving forward. Discussed potential risks and benefits as well as possible options and concerns. Risks and benefits discussed at length for procedure. These include bleeding, infection, injury to surrounding tissues or organs, and risks associated with anesthesia. Patient emergency contact states understanding and agrees to proceed. Verbal consent was received and confirmed with the [facility] nursing as well as with the anesthesiologist who was also on the telephone call with the medical decision maker. Reviewed potential surgical options and interventions. Discussed need for urgent/emergent treatment. Discussed another alternative would be nephrostomy tubes however due to patient's worsening condition may not be able to tolerate transfer. Discussed continued observation and antibiotic coverage. Discussed need for this regardless of drainage. Discussed potential issues and concerns related to intervention. Risk and benefits were discussed extensively. Discussed potential risks related to anesthesia. Discussed risks of bleeding infection and injury. Patient with signs of sepsis/SIRS with obstructing stone and likely developing pyelonephritis. Patient's disease is considered a high risk with significant risk of morbidity and mortality if allowed to continue untreated. Different alternatives had been discussed. Delay of intervention at this time would have significant risk to life and limb. Specifically there is a chance of progression to severe disease or loss of organ/renal function, progression to infection or other advanced disease, and/or possible . The procedure is deemed medically necessary and life sustaining. This was determined based on best clinical judgement with guidelines and recommendations based on good practices. Plan to proceed with urgent/emergent cystoscopy and stent placement History of Present Illness Attending Physician: Brian Vale MD History of Present Illness Urgent/emergent consultation for acutely ill and septic patient with UTI/Pyelo, discomfort, and ill feelings. Patient with severe developmental delay, autism and nonverbal. Typically active however presented with lethargy and abnormal activity. Found to be febrile with acute illness concern for possible pneumonia. Nonverbal and was unable to give much in information. Did not appear to have severe pain. Was also dealing with likely urinary tract infection. Altered mental status with severe lethargy and worsening issues due to acute illness Discussed and reviewed patient's personal medical, surgical, social, and family history for any history of issues, infections, and disease. Reviewed with patient's emergency contact as well as from patient charting and notes. Also, discussed patient's medical/surgery history especially related to any history of urinary issues or stone disease. Patient is undergoing intense/critical management for acute illness and is being admitted with broad-spectrum antibiotics. Hospitalist team has admitted and is undergoing observation with broad spectrum IV antibiotics. Allergies Allergy/AdvReac Type Severity Reaction Status Date / Time NSAIDS (Non-Steroidal Allergy Intermediate Unverified 11/25/24 13:06 Anti-Inflamma naproxen Allergy Unknown Unknown Verified 02/11/21 18:30 Home Medications Medication Instructions Recorded Confirmed Type acetaminophen 500 mg tablet 1,000 mg PO Q4H PRN Headache/Pain 12/15/24 12/15/24 History acetaminophen 500 mg tablet 500 mg PO QAM 12/15/24 12/15/24 History aloe vera 1 applic topical Q1H PRN Sunburn 12/15/24 12/15/24 History aluminum-mag hydroxide-simethicone 10 ml PO DIRECTED PRN 12/15/24 12/15/24 History 400 mg-400 mg-40 mg/5 mL oral susp Indigestion (Maalox Maximum Strength) bisacodyl 5 mg tablet,delayed 10 mg PO Q3D PRN Constipation 12/15/24 12/15/24 History release calcium 500 mg (as 1 tab PO QAM 12/15/24 12/15/24 History carbonate)-vitamin D3 5 mcg (200 unit) tablet chlorhexidine gluconate 0.12 % 1 applic buccal TID 12/15/24 12/15/24 History mouthwash clobazam 10 mg tablet 5 mg PO HS 12/15/24 12/15/24 History deutetrabenazine 36 mg 36 mg PO DAILY 12/15/24 12/15/24 History tablet,extended release 24 hr (Austedo XR) dextromethorphan-guaifenesin 20 10 ml PO Q4H PRN Cough 12/15/24 12/15/24 History mg-400 mg/5 mL oral liquid docusate sodium 100 mg capsule 100 mg PO BID 12/15/24 12/15/24 History famotidine 40 mg tablet 40 mg PO DAILY 12/15/24 12/15/24 History fluoride (sodium) 1.1 % dental 1 applic dental DAILY 12/15/24 12/15/24 History cream (Sodium Fluoride 5000 Plus) glycopyrrolate 1 mg tablet 1 mg PO TID 12/15/24 12/15/24 History hydrocortisone 1 % topical cream 1 applic topical TID PRN Rash 12/15/24 12/15/24 History lamotrigine 100 mg tablet 50 mg PO BID 12/15/24 12/15/24 History lamotrigine 200 mg tablet 200 mg PO BID 12/15/24 12/15/24 History levetiracetam 1,000 mg tablet 1,000 mg PO BID 12/15/24 12/15/24 History levetiracetam 500 mg tablet 500 mg PO BID 12/15/24 12/15/24 History loperamide 2 mg capsule 2 mg PO DIRECTED PRN Loose Stool 12/15/24 12/15/24 History multivitamin 1 tab PO QAM 12/15/24 12/15/24 History perphenazine 2 mg tablet 2 mg PO BID 12/15/24 12/15/24 History perphenazine 4 mg tablet 4 mg PO HS 12/15/24 12/15/24 History phenylephrine HCl 10 mg tablet 10 mg PO Q4H PRN Colds/Runny Nose 12/15/24 12/15/24 History phosphorated carbohydrate oral 30 ml PO DIRECTED PRN Nausea 12/15/24 12/15/24 History solution (Emetrol oral solution) polyethylene glycol 3350 17 17 g PO DAILY 12/15/24 12/15/24 History gram/dose oral powder quetiapine 200 mg tablet 200 mg PO HS 12/15/24 12/15/24 History quetiapine 50 mg tablet 50 mg PO QAM 12/15/24 12/15/24 History sertraline 100 mg tablet 100 mg PO QAM 12/15/24 12/15/24 History Patient History Medical History Traumatic wound Acute and chronic respiratory failure with hypercapnia Obesity hypoventilation syndrome Diastolic dysfunction Hypothyroidism Shortness of breath Cough Hypoxia RSV (respiratory syncytial virus infection) Cervical mass Morbid obesity Bilateral lower leg cellulitis Acute respiratory failure with hypoxia and hypercarbia Reactive airway disease Acute respiratory failure with hypoxia and hypercapnia Acute respiratory failure with hypercapnia Hypercapnia resolved Hypoxia resolved Impacted cerumen of both ears Sensorineural hearing loss (SNHL) of both ears History of kidney disease Stage 3 Dementia Depression Eating disorder Postmenopausal status Primary hypothyroidism Down syndrome Hypertension Hypercholesteremia Somnolence Sialoadenitis, unspecified Polypharmacy Fall Acute head injury MR (mental retardation) Post-menopausal Pharyngoesophageal dysphagia Osteoarthritis Obesity Mood disorder Chronic kidney disease, stage 3 Hearing loss Hallucinations Hx of esophagitis Dry eyes Degenerative disc disease, lumbar Constipation Bursitis unilateral hip, unsure which side Asthma Arthritis GERD (gastroesophageal reflux disease) Cataracts, bilateral Sleep apnea no current device, getting tested again in 09/2023 Depression Hx of breast lump Intellectual disability Surgical History No significant past surgical history Surgical history unknown Social History Smoking Status: Unknown if ever smoked Hx Alcohol Use: No Hx Substance Use: No Preferred Language: Taiwanese Communication Ability: Impaired Communication Ability Comment: pt. nonverbal, sometimes cooperates with corporate staff accountant Required: No marital status: Single Current Living Situation: Personal Care Facility Current Living Situation Comment: [facility] current occupational status: disabled Other Information That Helps Us Care for You: No Feels Safe at Home: Declines to Answer Assistive Devices: None Review of Systems Review of Systems: All systems reviewed & are unremarkable except as noted in HPI & below, Unobtainable due to mental health condition, Unobtainable due to cognitive status and Unobtainable due to reduced consciousness Limited due to patient illness Physical Exam 2 Physical Exam: General: Acutely ill. Undergoing critical care management for acute severe infection. Lethargic and poorly responsive. Patient is nonverbal at baseline. HEENT: Normocephalic Atraumatic. Inspection normal. Cranial Nerves 2-12 Grossly intact. Nares are clear. Neck is supple. Normal inspection of face. Normal inspection of neck. Neurologic: Baseline for motor function and sensory. Psychologic: Lethargic, likely acute delirium secondary to illness Respiratory: Mild labored. No use of accessory muscles. No severe dyspnea. Cardiovascular: tachycardia Skin: [place] and Dry. No rashes or visible lesions. Febrile Extremities: Lethargic and poorly responsive. No obvious motor deficits on inspection Lymphatics: Mild edema Abdomen: Mildly distended. No rebound or guarding. Mild suprapubic/flank tenderness Results & Data Vital Signs (Past 12 Hours) Vital Signs Temp Pulse Pulse Resp BP BP BP 12/16/24 07:41 38.9 C H 87 16 132/74 12/16/24 06:45 88 12/16/24 04:00 36.8 C 74 18 124/71 12/16/24 00:59 36.8 C 12/15/24 22:22 84 12/15/24 22:17 38.9 C H 93 H 20 157/74 H 12/15/24 22:11 93 H 157/74 H 12/15/24 22:01 96 H 12/15/24 21:20 12/15/24 21:14 39.5 C H 95 H 20 184/71 H 12/15/24 21:13 91 H 12/15/24 20:43 95 H Pulse Ox O2 Del Method 12/16/24 07:41 90 Room Air 12/16/24 06:45 12/16/24 04:00 95 Room Air 12/16/24 00:59 12/15/24 22:22 12/15/24 22:17 92 Room Air 12/15/24 22:11 12/15/24 22:01 12/15/24 21:20 Room Air 12/15/24 21:14 90 Room Air 12/15/24 21:13 12/15/24 20:43 PG Care Time/CCT Total # of Minutes Spent Total Time Spent with Patient: Total time spent is greater than 50% in coordination of care (as documented) at patient's floor/unit and/or counseling patient: Coding Level of Care Code 78256 IN/OBS CONSULT LVL 5,80M Diagnoses Complicated UTI (urinary tract infection) N39.0 Left ureteral calculus N20.1
[2024-12-16] MEDS: POLYETHYLENE (MIRALAX) 17 GM PACK PO SCH (08:50)
[2024-12-16] MEDS: LACTATED RINGER'S 1,000 ML IV ONE (09:17)
--- NOTE | 2024-12-16 10:03 | Electrocardiogram Report ---
Test Reason : Blood Pressure : */* mmHG Vent. Rate : 95 BPM Atrial Rate : 95 BPM P-R Int : 170 ms QRS Dur : 74 ms QT Int : 326 ms P-R-T Axes : 71 -37 21 degrees QTcB Int : 409 ms Poor data quality, interpretation may be adversely affected Normal sinus rhythm Left axis deviation Nonspecific T wave abnormality Abnormal ECG When compared with ECG of 05-Dec-2021 16:04, No significant change was found Confirmed by Mark Goode ([id number]) on 12/16/2024 10:03:28 AM Referred By: REFERRED SELF Confirmed By: Mark Goode
[2024-12-16] MEDS ORDERED: ONDANSETRON INJ 2 MG/ML 2 ML VIAL ONE (10:25)
[2024-12-16] MEDS ORDERED: GLYCOPYRROLATE 0.2 MG/ML VIAL ONE (10:25)
[2024-12-16] MEDS ORDERED: PROPOFOL IV EMULSION 10 MG/ML 20 ML VIAL IV ONE (10:25)
[2024-12-16] MEDS ORDERED: ROCURONIUM BROMIDE 10 MG/ML 5 ML VIAL IV ONE (10:25)
[2024-12-16] MEDS ORDERED: LIDOCAINE 2% 2 ML VIAL/AMP(20MG/ML) INFIL ONE (10:25)
[2024-12-16] MEDS ORDERED: DEXAMETHASONE SOD INJ 4 MG/ML VIAL ONE (10:25)
[2024-12-16] MEDS ORDERED: MIDAZOLAM HCL 1 MG/ML 2ML VIAL ONE (10:26)
[2024-12-16] MEDS ORDERED: fentaNYL citrate PF 100 MCG/2 ML VIAL ONE (10:26)
[2024-12-16] MEDS ORDERED: SUGAMMADEX SODIUM 200 MG/2 ML VIAL IV ONE (10:27)
[2024-12-16] MEDS ORDERED: NOREPINEPHRINE BITARTRATE 1 MG/ML 4 ML VIAL IV ONE (10:32)
--- NOTE | 2024-12-16 11:51 | History & Physical Bridge Note ---
Date of Service December 16, 2024 History & Physical Bridge Note I have examined the patient, reviewed the History & Physical and in the interval since the performance of the History & Physical I have noted the following changes of clinical significance: Patient lethargic acutely ill with high fevers and suspicion of possible pneumonia, UTI, pyelonephritis, and obstructing left stone. Plan for emergent/urgent intervention with stent placement. Discussed with patient's emergency contact who gave verbal consent over the phone Risk benefits discussed extensively with emergency contact. Plan to proceed with urgent/emergent procedure with left stent placement and cystoscopy
--- NOTE | 2024-12-16 12:01 | Anesthesiology Consultation ---
Date of Service December 16, 2024 Assessment & Plan Chart Review Chart Review: Acceptable Risk for Surgery and Patient NOT seen in Pre Admission Testing Consults Requested none ASA [id number] Proposed Anesthesia Anesthesia Type: General History Surgery Operation Date: 12/16/24 12:10 Proposed Procedures p Cystoscopy Left Retrograde Pyelogram and Stent Placement - Dilip Napoles, Height/Weight Height: 5 ft 5 in Weight: 66.5 kg Allergies Allergy/AdvReac Type Severity Reaction Status Date / Time NSAIDS (Non-Steroidal Allergy Intermediate Unverified 11/25/24 13:06 Anti-Inflamma naproxen Allergy Unknown Unknown Verified 02/11/21 18:30 Medications Home Medications Medication Instructions Recorded Confirmed Last Taken acetaminophen 500 mg tablet 1,000 mg PO Q4H PRN Headache/Pain 12/15/24 12/15/24 Unknown acetaminophen 500 mg tablet 500 mg PO QAM 12/15/24 12/15/24 Unknown aloe vera 1 applic topical Q1H PRN Sunburn 12/15/24 12/15/24 Unknown aluminum-mag hydroxide-simethicone 10 ml PO DIRECTED PRN 12/15/24 12/15/24 Unknown 400 mg-400 mg-40 mg/5 mL oral susp Indigestion (Maalox Maximum Strength) bisacodyl 5 mg tablet,delayed 10 mg PO Q3D PRN Constipation 12/15/24 12/15/24 Unknown release calcium 500 mg (as 1 tab PO QAM 12/15/24 12/15/24 Unknown carbonate)-vitamin D3 5 mcg (200 unit) tablet chlorhexidine gluconate 0.12 % 1 applic buccal TID 12/15/24 12/15/24 Unknown mouthwash clobazam 10 mg tablet 5 mg PO HS 12/15/24 12/15/24 Unknown deutetrabenazine 36 mg 36 mg PO DAILY 12/15/24 12/15/24 Unknown tablet,extended release 24 hr (Austedo XR) dextromethorphan-guaifenesin 20 10 ml PO Q4H PRN Cough 12/15/24 12/15/24 Unknown mg-400 mg/5 mL oral liquid docusate sodium 100 mg capsule 100 mg PO BID 12/15/24 12/15/24 Unknown famotidine 40 mg tablet 40 mg PO DAILY 12/15/24 12/15/24 Unknown fluoride (sodium) 1.1 % dental 1 applic dental DAILY 12/15/24 12/15/24 Unknown cream (Sodium Fluoride 5000 Plus) glycopyrrolate 1 mg tablet 1 mg PO TID 12/15/24 12/15/24 Unknown hydrocortisone 1 % topical cream 1 applic topical TID PRN Rash 12/15/24 12/15/24 Unknown lamotrigine 100 mg tablet 50 mg PO BID 12/15/24 12/15/24 Unknown lamotrigine 200 mg tablet 200 mg PO BID 12/15/24 12/15/24 Unknown levetiracetam 1,000 mg tablet 1,000 mg PO BID 12/15/24 12/15/24 Unknown levetiracetam 500 mg tablet 500 mg PO BID 12/15/24 12/15/24 Unknown loperamide 2 mg capsule 2 mg PO DIRECTED PRN Loose Stool 12/15/24 12/15/24 Unknown multivitamin 1 tab PO QAM 12/15/24 12/15/24 Unknown perphenazine 2 mg tablet 2 mg PO BID 12/15/24 12/15/24 Unknown perphenazine 4 mg tablet 4 mg PO HS 12/15/24 12/15/24 Unknown phenylephrine HCl 10 mg tablet 10 mg PO Q4H PRN Colds/Runny Nose 12/15/24 12/15/24 Unknown phosphorated carbohydrate oral 30 ml PO DIRECTED PRN Nausea 12/15/24 12/15/24 Unknown solution (Emetrol oral solution) polyethylene glycol 3350 17 17 g PO DAILY 12/15/24 12/15/24 Unknown gram/dose oral powder quetiapine 200 mg tablet 200 mg PO HS 12/15/24 12/15/24 Unknown quetiapine 50 mg tablet 50 mg PO QAM 12/15/24 12/15/24 Unknown sertraline 100 mg tablet 100 mg PO QAM 12/15/24 12/15/24 Unknown Active Medications Generic Name Dose Route Start Last Admin Trade Name Freq PRN Reason Stop Dose Admin Acetaminophen 650 mg 12/15/24 21:13 12/16/24 07:41 Acetaminophen 325 Mg Tab PO 01/14/25 21:12 650 mg Q4H PRN Administration pain/fever Clobazam 5 mg 12/15/24 21:13 12/15/24 21:35 Clobazam 5 Mg Tab PO 01/14/25 21:12 5 mg HS SWAPNA Administration Docusate Sodium 100 mg 12/15/24 21:13 12/16/24 07:41 Docusate Sodium 100 Mg Cap PO 01/14/25 21:12 100 mg BID SWAPNA Administration Enoxaparin Sodium 40 mg 12/15/24 21:30 12/15/24 22:08 Enoxaparin Inj 40 Mg/0.4 Ml Syr SQ 01/14/25 21:29 40 mg HS SWAPNA Administration Famotidine 40 mg 12/16/24 09:00 12/16/24 07:41 Famotidine 40 Mg Tablet PO 01/15/25 08:59 40 mg DAILY SWAPNA Administration Glycopyrrolate 1 mg 12/15/24 21:13 12/16/24 07:40 Glycopyrrolate 1 Mg Tab PO 01/14/25 21:12 1 mg TID SWAPNA Administration Sodium Chloride 1,000 mls @ 100 mls/hr 12/15/24 21:13 12/15/24 22:16 Nss IV 12/18/24 21:12 50 mls/hr .Q10H SWAPNA Administration Doxycycline Hyclate 100 mg/ 100 mls @ 50 mls/hr 12/15/24 22:00 12/16/24 11:06 Dextrose IV 12/20/24 21:59 50 mls/hr BID@0000,1000 SWAPNA Administration Piperacillin Sod/Tazobactam Sod 4.5 gm in 100 mls @ 25 mls/hr 12/16/24 04:00 12/16/24 07:44 Zosyn IV 12/21/24 03:59 Infused Q8H SWAPNA Infusion Protocol Lactated Ringer's 1,000 mls @ 15 mls/hr 12/16/24 09:14 12/16/24 09:17 Lr IV 12/17/24 09:13 15 mls/hr .Q24H ONE Administration Lactobacillus Acidophilus 1,250 mg 12/16/24 09:00 12/16/24 07:40 Advanced Probiotic 625 Mg Capsule PO 01/15/25 08:59 1,250 mg DAILY SWAPNA Administration Lamotrigine 200 mg 12/15/24 21:13 12/16/24 07:40 Lamotrigine 100 Mg Tab PO 01/14/25 21:12 200 mg BID SWAPNA Administration Protocol Lamotrigine 50 mg 12/15/24 21:13 12/16/24 07:40 Lamotrigine 25 Mg Tab PO 01/14/25 21:12 50 mg BID SWAPNA Administration Protocol Levetiracetam 1,500 mg 12/15/24 21:13 12/16/24 07:41 Levetiracetam 500 Mg Tab PO 01/14/25 21:12 1,500 mg BID SWAPNA Administration Miscellaneous 1 each 12/15/24 21:30 12/16/24 07:27 [place]~Order Awaiting Action N/A 01/14/25 21:29 Not Given QS SWAPNA Perphenazine 2 mg 12/15/24 21:13 12/16/24 07:41 Perphenazine 2 Mg Tab PO 01/14/25 21:12 2 mg BID SWAPNA Administration Perphenazine 4 mg 12/15/24 21:13 12/15/24 22:33 Perphenazine 4 Mg Tab PO 01/14/25 21:12 4 mg HS SWAPNA Administration Polyethylene Glycol 17 gm 12/16/24 09:00 12/16/24 08:50 Polyethylene (Miralax) 17 Gm Pack PO 01/15/25 08:59 Not Given DAILY SWAPNA Quetiapine Fumarate 200 mg 12/15/24 21:13 12/15/24 22:07 Quetiapine Fumarate 200 Mg Tab PO 01/14/25 21:12 200 mg HS SWAPNA Administration Quetiapine Fumarate 50 mg 12/16/24 09:00 12/16/24 07:40 Quetiapine Fumarate 25 Mg Tablet PO 01/15/25 08:59 50 mg QAM SWAPNA Administration Sertraline HCl 100 mg 12/16/24 09:00 12/16/24 07:41 Sertraline Hcl 100 Mg Tablet PO 01/15/25 08:59 100 mg QAM SWAPNA Administration NPO Last Intake of Fluids Comment: NPO since 2358 per RN; Patient unable to report Last Intake of Solids Comment: NPO since 2358 per RN; Patient unable to report Past Medical History Medical History Traumatic wound Acute and chronic respiratory failure with hypercapnia Obesity hypoventilation syndrome Diastolic dysfunction Hypothyroidism Shortness of breath Cough Hypoxia RSV (respiratory syncytial virus infection) Cervical mass Morbid obesity Bilateral lower leg cellulitis Acute respiratory failure with hypoxia and hypercarbia Reactive airway disease Acute respiratory failure with hypoxia and hypercapnia Acute respiratory failure with hypercapnia Hypercapnia resolved Hypoxia resolved Impacted cerumen of both ears Sensorineural hearing loss (SNHL) of both ears History of kidney disease Stage 3 Dementia Depression Eating disorder Postmenopausal status Primary hypothyroidism Down syndrome Hypertension Hypercholesteremia Somnolence Sialoadenitis, unspecified Polypharmacy Fall Acute head injury MR (mental retardation) Post-menopausal Pharyngoesophageal dysphagia Osteoarthritis Obesity Mood disorder Chronic kidney disease, stage 3 Hearing loss Hallucinations Hx of esophagitis Dry eyes Degenerative disc disease, lumbar Constipation Bursitis unilateral hip, unsure which side Asthma Arthritis GERD (gastroesophageal reflux disease) Cataracts, bilateral Sleep apnea no current device, getting tested again in 09/2023 Depression Hx of breast lump Intellectual disability Past Surgical History Surgical History No significant past surgical history Surgical history unknown Social History Smoking Status: Unknown if ever smoked Hx Alcohol Use: No Hx Substance Use: No Physical Exam Vital Signs Last Vital Signs Temp 37.8 C H 12/16/24 09:04 Pulse 91 H 12/16/24 09:04 Resp 16 12/16/24 09:04 BP 111/53 L 12/16/24 09:04 Pulse Ox 92 12/16/24 09:04 O2 Del Method Room Air 12/16/24 09:04 Testing Laboratory Results 12/16/24 06:27 12/16/24 06:27 Urine Color Dark Yellow 12/15/24 Unknown Urine Appearance Cloudy (Clear) A 12/15/24 Unknown Urine pH 8.5 (4.5-7.5) H 12/15/24 Unknown Ur Specific [place] 1.026 (1.000-1.030) 12/15/24 Unknown Urine Protein 2+ (Negative) H 12/15/24 Unknown Urine Glucose (UA) Negative (Negative) 12/15/24 Unknown Urine Ketones Trace (Negative) H 12/15/24 Unknown Urine Nitrite Negative (Negative) 12/15/24 Unknown Ur Leukocyte Esterase 3+ (Negative) H 12/15/24 Unknown Urine WBC (Auto) >50 /hpf (0-5) H 12/15/24 Unknown Urine RBC (Auto) 11-20 /hpf (0-2) H 12/15/24 Unknown U Hyaline Cast (Auto) 11-20 /lpf (0-2) H 12/15/24 Unknown U Epithel Cells (Auto) 0-2 /hpf (0-2) 12/15/24 Unknown Urine Bacteria (Auto) 3+ (None Seen) H 12/15/24 Unknown
[2024-12-16] MEDS ORDERED: ATROPINE SULFATE 0.1 MG/ML 10ML SYR IV PRN (12:26)
[2024-12-16] MEDS ORDERED: fentaNYL citrate PF 100 MCG/2 ML VIAL IV PRN (12:26)
[2024-12-16] MEDS ORDERED: ONDANSETRON INJ 2 MG/ML 2 ML VIAL IV PRN (12:26)
[2024-12-16] MEDS ORDERED: ePHEDrine sulfate 50 MG/ML AMP IV PRN (12:26)
[2024-12-16] MEDS: DIATRIZOATE MEGLUMINE 30% 100ML VIAL INSTIL PRN (12:58)
--- NOTE | 2024-12-16 13:12 | Fluoroscopy Report ---
FL retrograde includes kub CLINICAL HISTORY: LEFT RETROGRADE AND STENT COMPARISON STUDY: None pertinent FLUOROSCOPY TIME: 94.9 seconds FLUOROSCOPY IMAGES: 3 EXPOSURE DOSE: 25.23 mGy FINDINGS: Fluoroscopic guidance provided for a left retrograde pyelogram and a left ureteral stent pl acement. IMPRESSION: Please refer to procedural report for evaluation based upon real time fluoroscopic observ ation ACT 112: Negative or not required by law. Electronically signed by: Ines Myrick M.D. 12/16/2024 1:11 PM
--- NOTE | 2024-12-16 13:13 | Operative Report ---
PG Post Operative Report Pre & Post Diagnosis Operation Date: 12/16/24 12:10 Pre-Op Diagnosis: Left kidney stone, sepsis, pyelonephritis Post-Op Diagnosis: Left kidney stone, sepsis, pyelonephritis I identified the patient and participated in the time-out.: Yes Procedure Operation Date: 12/16/24 12:10 Actual Procedures Urgent/emergent procedure Cystoscopy with irrigation of bladder and catheter placement. Left ureteroscopy, Retrograde Pyelogram, Left Stent Placement, ureteral dilation, and aspiration of left kidney(Left) - Dilip Napoles DO Surgeon Dilip Napoles, II, DO Payroll And Benefits Coordinator None Estimated Blood Loss 1 Findings Consistent with Post-Op Diagnosis Severe obstruction of the left ureter with large stone impacted in stricture at the UPJ. Severely purulent urine aspirated and irrigated from the kidney. Large debris in the base of the bladder also irrigated Specimens Urine left kidney for culture Drains 6 Fr by 24 cm double-J ureteral stent on the left 18 Cambodian silicone catheter Anesthesia Type General Complications none Disposition Disposition: Recovery Room Indications Patient with sepsis with hypotension and tachycardia and significant fevers with likely pyelonephritis and obstructing stone on left. Risks and benefits discussed at length. Description of Procedure Patient was consented for urgent procedure and brought back to the operating room. Patient was placed under anesthesia in the supine position and moved to the dorsal lithotomy position. Patient was prepped and draped in the regular sterile fashion. A time out was completed identifying the correct patient and procedure. A 30degree Cystoscope was placed into the bladder and the entire bladder was examined. Large amount of debris was noted within the bladder. Extensive irrigation was completed to clear the large amount of debris in the bladder. Once cleared, the UO's were identified. The UO was cannulized with a catheter and a retrograde pyelogram was completed. No contrast was seen going past the area of what appeared to be the stone in the UPJ region. The catheter was advanced and A wire was then placed however this also would not bypassed the area of the stone. Significant manipulation was attempted in order to bypassed the area. The contrast outline the entire ureter up to the area of what appeared to be the obstructing stone. No contrast appeared to be going around the kidney. With some manipulation the wire was able to be advanced somewhat further however there was concerned that a stent was not going to be able to bypassed the area and that the wire may not be in proper positioning based on the appearance. At this point the first wire was left and a second wire was placed. The flexible ureteroscope was taken into the ureter. The entire ureter was examined. The stone and obstruction was identified. The wire did not appear to be going past the stone due to the stone being severely impacted and what appeared to be a stricture at the UPJ. Significant inflammation was noted. The ureter was tortuous and difficult to navigate. Utilizing the scope and a wire the stone was able to be displaced back and immediately fell into the renal pelvis. The UPJ appeared to be significantly narrowed however this was gently mildly dilated and the scope was then advanced. Within the renal pelvis there was severe purulent appearing urine with significant debris. Visualization was extremely limited. The stone appeared to be in the lower pole segment. Urine was able to be aspirated through the scope which was found to be severely cloudy and purulent with a grayish appearance. This was sent for Gram stain and culture. At this point after aspirating over 20 cc of debris from the renal pelvis a retrograde pyelogram was completed with approximately 6 cc of contrast. The scope was slowly removed with the wire left in place. The wire was now in good position confirmed to be within the lumen of the ureter and was located in the upper pole renal calyx. An additional 1 to 2 cc of contrast was placed through the scope for a pyelogram to assist in stent placement. The entire ureter was examined as the scope was slowly removed. No obstructions or other areas of concern were noted. With the wire in place, a 6 Fr Double J stent was placed. It was confirmed with fluoroscopy. With the stent in place, the bladder was emptied. Significant debris was noted to be draining from the left kidney. The scope was removed. A 18 Cambodian silicone catheter was placed. A small amount of debris was noted to be draining through the catheter. This was able to be flushed. The patient was cleaned, aroused from anesthesia, and transferred to the pacu in stable condition having tolerated the procedure well with no complications. I was present and participated in all aspects of the procedure. The patient will be monitored in the PACU until transferred. Will plan to monitor while patient inpatient for significant sepsis. Will await the culture results. Will likely need 10 to 14 days of antibiotic coverage with plans for possible stone treatment once infection cleared I attest to the content of the Intraoperative Record and any orders documented therein. Any exceptions are noted below.
[2024-12-16 13:36] LABS: A calco-baum cmplx NotReported Not Detected (NotDetected); Bact fragilis Not Reported Not Detected (NotDetected); Blood Culture Id Panel See PCR Comment (NotDetected); C auris Not Reported Not Detected (NotDetected); Calbicans Not Reported Not Detected (NotDetected); Candida glabrata Not Reported Not Detected (NotDetected); Candida krusei Not Reported Not Detected (NotDetected); Cneoformans/gatti Not Reported Not Detected (NotDetected); Cparapsilosis Not Reported Not Detected (NotDetected); Ctropicalis Not Reported Not Detected (NotDetected); E cloacae compx Not Reported Not Detected (NotDetected); Efaecalis Not Reported Not Detected (NotDetected); Efaecium Not Reported Not Detected (NotDetected); Enterobacterales Not Reported Not Detected (NotDetected); Escherichia coli Not Reported Not Detected (NotDetected); H influenzae Not Reported Not Detected (NotDetected); K aerogenes Not Reported Not Detected (NotDetected); Koxytoca Not Reported Not Detected (NotDetected); Kpneumoniae grp Not Reported Not Detected (NotDetected); Lmonocyt Not Reported Not Detected (NotDetected); N meningitidis Not Reported Not Detected (NotDetected); P aeruginosa Not Reported Not Detected (NotDetected); Proteus spp Not Reported Not Detected (NotDetected); Salmonella spp Not Reported Not Detected (NotDetected); Staph lugdunensis Not Reported Not Detected (NotDetected); Staph spp. Not Reported DETECTED (NotDetected); Staphaureus Not Reported Not Detected (NotDetected); Staphepi Not Reported Not Detected (NotDetected); Stenmaltophilia Not Reported Not Detected (NotDetected); Strep agal(GrpB) Not Reported Not Detected (NotDetected); Strep pneum Not Reported Not Detected (NotDetected); Strep pyog (GrpA) Not Reported Not Detected (NotDetected); Strep spp Not Reported Not Detected (NotDetected)
--- NOTE | 2024-12-16 13:37 | Anesthesiology Progress Note ---
Date of Service December 16, 2024 Anesthesia Post Procedure Vital Signs Vital Signs: Temp Pulse Pulse Pulse Resp BP BP 12/16/24 13:25 83 16 145/75 H 12/16/24 13:15 82 16 155/73 H 12/16/24 13:09 36.6 C 85 16 140/71 12/16/24 09:04 37.8 C H 91 H 16 111/53 L 12/16/24 07:41 38.9 C H 87 16 132/74 12/16/24 06:45 88 12/16/24 04:00 36.8 C 74 18 124/71 12/16/24 00:59 36.8 C 12/15/24 22:22 84 12/15/24 22:17 38.9 C H 93 H 20 12/15/24 22:11 93 H 157/74 H 12/15/24 22:01 96 H 12/15/24 21:20 12/15/24 21:14 39.5 C H 95 H 20 12/15/24 21:13 91 H 12/15/24 20:43 95 H 12/15/24 20:00 94 H 16 12/15/24 16:36 95 H 12/15/24 16:30 97 H 20 12/15/24 15:03 100 H 31 H 12/15/24 15:01 131/73 12/15/24 14:59 97 H 20 12/15/24 14:57 99 H 19 12/15/24 14:30 104 H 27 H 12/15/24 14:08 12/15/24 14:06 93 H 26 H 12/15/24 14:02 38.5 C H 92 H 20 12/15/24 14:01 133/49 L 12/15/24 14:00 96 H 16 BP BP Pulse Ox O2 Del Method O2 Flow Rate 12/16/24 13:25 100 Oxymask 10 12/16/24 13:15 100 Oxymask 15 12/16/24 13:09 96 Oxymask 15 12/16/24 09:04 92 Room Air 12/16/24 07:41 90 Room Air 12/16/24 06:45 12/16/24 04:00 95 Room Air 12/16/24 00:59 12/15/24 22:22 12/15/24 22:17 157/74 H 92 Room Air 12/15/24 22:11 12/15/24 22:01 12/15/24 21:20 Room Air 12/15/24 21:14 184/71 H 90 Room Air 12/15/24 21:13 12/15/24 20:43 12/15/24 20:00 96 Room Air 12/15/24 16:36 12/15/24 16:30 120/60 92 Room Air 12/15/24 15:03 12/15/24 15:01 12/15/24 14:59 131/73 91 Room Air 12/15/24 14:57 12/15/24 14:30 92 12/15/24 14:08 92 Room Air 12/15/24 14:06 12/15/24 14:02 100/50 L 92 Room Air 12/15/24 14:01 12/15/24 14:00 93 Transfer of Care Handoff Completed per policy Notes Mental Status: alert / awake / arousable Patient Amnestic to Procedure: Yes Nausea / Vomiting: adequately controlled Pain: adequately controlled Airway Patency, RR, SpO2: stable & adequate BP & HR: stable & adequate Hydration State: stable & adequate Anesthetic Complications: no major complications apparent and Pt Satisfied with anesthetic care
[2024-12-16 13:47] LABS: Staphylococcus spp. DETECTED (NotDetected)
[2024-12-16] MEDS ORDERED: VANCOMYCIN CONSULT ACTIVE PRN (14:34)
[2024-12-16] MEDS ORDERED: VANCOMYCIN HCL 1,250 MG in SODIUM CHLORIDE 0.9% 500 ML IV ONE (14:34)
[2024-12-16] MEDS ORDERED: VANCOMYCIN HCL 1,000 MG in SODIUM CHLORIDE 0.9% 250 ML IV SCH (14:45)
--- NOTE | 2024-12-16 15:08 | Pharmacy Report ---
Pharmacy PK ABX Note - Date of Service December 16, 2024 - Assessment and Plan Assessment 59 year old F is receiving vancomycin for treatment of bacteremia likely secondary to underlying RUL pneumonia and is receiving Zosyn for a complicated UTI/pyelonephritis. * Pertinent microbiologic data includes: * 1 of 2 blood cultures from 12/15 growing gram positive cocci in clusters (staph sp shown in blood culture PCR) * Nasal MRSA swab from 12/15 is negative * Straight cath urine culture from 12/15 grew < 1000 col/mL (prelim) * Urine from left kidney culture from 12/16 is pending. Day # 1 of antimicrobial therapy. Plan Vancomycin * Loading dose: 1500 mg IV x 1 * Maintenance dose: 750 mg IV every hours * Regimen is predicted to achieve target AUC/KVNG of 400-600 mg/L.hr * Random level will be ordered in the next 48-72 hours. Pharmacy will continue to follow and will adjust dose/frequency as necessary. Thank you. Pharmacy has transitioned to AUC monitoring for vancomycin. AUC/KVNG is the preferred PK/PD target and is associated with decreased risk of nephrotoxicity compared to traditional trough targets.
[2024-12-16] MEDS: VANCOMYCIN HCL 1,500 MG in SODIUM CHLORIDE 0.9% 500 ML IV ONE (15:25)
[2024-12-16] MEDS: SODIUM CHLORIDE 0.9% 500 ML IV ONE (16:30)
[2024-12-16] MEDS: levETIRAcetam 500 MG/5 ML VIAL IV SCH (20:28)
[2024-12-17] MEDS ORDERED: Nursing to Pharmacy Communication SCH (00:30)
[2024-12-17] MEDS: VANCOMYCIN 750 MG in SODIUM CHLORIDE 0.9% 250 ML IV SCH ×2 (03:33→12:59)
[2024-12-17] MEDS ORDERED: OLANZapine 10 MG/2.1 ML SDV IM PRN (06:13)
[2024-12-17 06:48] LABS: Basophils # (auto) 0.03 K/uL (0.00-0.20); Basophils % (auto) 0.2 %; Eosinophils # (auto) 0.02 K/uL (0.00-0.50); Eosinophils % (auto) 0.1 %; Hematocrit (blood only) 26.3 % (37.0-47.0); Hemoglobin 8.6 g/dl (12.0-16.0); Immature Granulocytes # (auto) 0.11 K/uL (0.01-0.20); Immature Granulocytes % (auto) 0.7 %; Lymphocytes % (auto) 8.9 %; Mean Corpuscular Hemoglobin 29.4 pg (25.0-34.0); Mean Corpuscular Hgb Conc 32.7 g/dL (32.0-36.0); Mean Corpuscular Volume 89.8 fL (80.0-100.0); Mean Platelet Volume 10.5 fL (9.4-12.4); Monocytes # (auto) 1.08 K/uL (0.11-0.59); Monocytes % (auto) 6.8 %; Neutrophils # (auto) 13.13 K/uL (1.40-6.50); Neutrophils % (auto) 83.3 %; Platelet Count 200 K/uL (130-400); RDW Coefficient of Variation 12.7 % (11.5-14.5); RDW Standard Deviation 41.9 fL (36.4-46.3); Red Blood Count 2.93 M/uL (4.20-5.40); White Blood Count 15.77 K/ul (4.8-10.8)
--- NOTE | 2024-12-17 07:30 | Hospitalist Progress Note ---
Date of Service December 17, 2024 Assessment & Plan (1) Sepsis: (2) Right upper lobe pneumonia: (3) Complicated UTI (urinary tract infection): Plan: Ines Delatorre is a nonverbal 59y/o F from [facility] with PMHx significant for severe intellectual disability, autism, epilepsy, recurrent MDD, OCD, mood disorder, history of SIADH, CKD stage III, GERD, SNHL of both ears, lesion of right lobe of liver, fecal and urinary incontinence, left nephrolithiasis, excessive salvation and generalized OA s/p recent R hip joint injection at [facility] on 11/30/24 who is admitted under our service due to sepsis secondary to underlying RUL PNA and complicated UTI in the setting of an obstructing proximal left ureteral stone with subsequent pyelonephritis. CTAP: Newly noted left proximal ureteric stone measuring 6 mm with mild backpressure changes. Now day #1 s/p cystoscopy with irrigation of bladder and Alcantara catheter placement, left ureteroscopy with stent placement and aspiration of the left kidney performed by Dr. Napoles. Procedural findings consistent with a severe obstruction of the left ureter stone impacted in stricture at the UPJ with severely purulent urine aspiration and irrigated from the left kidney. Previously hypotensive but now improving with IVF. Febrile at 38.5C this morning . Urine from left kidney during above urologic procedure with no significant growth on preliminary culture. Initial urine culture with Gardnerella-like bacilli. 1/4 blood cultures growing Staphylococcus hominis - ? possible contaminant however patient is febrile today as per above. Repeat blood cultures pending. Continue IV Zosyn and vancomycin pending repeat blood culture results since patient was febrile this morning. Maintain Alcantara catheter as directed by urology. BP improved this morning; will hold off on further IVF for now. Wean O2 as tolerated. (4) Anemia: Plan: Baseline Hgb ~11-13 per chart review. Hgb 10.7 on admission, now downtrended to 8.6; likely dilutional component contributing in addition to hematuria s/p above urologic procedure. Hematuria resolving. Routine anemia panel checked. Iron 15, TIBC 195, transferrin 139 and ferritin 72.4; vit B12 and folate levels WNL. Start daily iron supplementation. No indication to transfuse at this time given Hgb>7. Follow repeat H/H around 6PM. Daily CBC monitoring. (5) Intellectual disability: (6) Change in behavior: Plan: Noted DURABILITY TECHNICIAN by her nursing house moving supervisor, Rochelle, from [facility]. Has severe intellectual disability. Nonverbal at baseline. Usually able to follow verbal commands and ambulates without assistance. Notable increase in lethargy per Rochelle DURABILITY TECHNICIAN. Also not following any commands and was incontinent of stool. Stool incontinence has happened in the distant past but not in the past few years. Head CT: No acute intracranial hemorrhage, midline shift or mass effect. Accentuated bilateral deep periventricular hypodensities likely microvascular ischemic changes. Newly noted diffuse cortical thickening of the skull more at the frontal bones. Suspect behavioral/mentation changes 2/2 above conditions. Will be inclined to obtain brain MRI if no improvement in cognitive/mentation level with the above measures. (7) Restlessness and agitation: Plan: Noted overnight. Required application of BUE soft restraints as patient was repeatedly removing her NC and then would desaturate down into the low to mid 80s. Seems to be less agitated at the time of my evaluation earlier this afternoon. Per prior discussion with Rochelle, the nursing house moving supervisor at [facility], it is not uncommon for the patient to become acutely agitated in unfamiliar scenarios or after procedures. Will trial removal of restraints as tolerated - communicated with nursing staff. May benefit from 1-to-1 bedside sitter. (8) Epilepsy: Plan: Follows with Dr. Ines Richardson of [facility] neurology. Continue home seizure medication regimen. Stable, well-controlled. Keppra and Lamictal levels pending. Other Chronic Medical Conditions: GERD - Continue Pepcid. Excessive Salvation - Continue glycopyrrolate. MDD/OCD/Tardive Dyskinesia - Stable on current psychiatric medication regimen, continue. Follows with psychiatry at [facility]. DVT Prophylaxis: SQ Lovenox Code Status: FULL CODE PCP: Josh Holman MD Disposition: Discharge plans uncertain at this time. Obtain PT/OT evaluations as able. Medical proxy is Mary Munoz @ [phone]. Mary is a distant aunt and lives in [place]. She is her only living relative. Chatted with her yesterday. Nursing house moving supervisor at [facility] is Rochelle @ [phone]. Tried to get a hold of Rochelle this morning again but was unable (reportedly off today). Patient seen in collaboration with Dr. Vale. Please see addendum. I spent a total of 66 minutes coordinating, documenting, and providing care for this patient excluding time spent in the performance of separately billed services or time spent by another provider/QHP. This included personally reviewing all current laboratories and imaging studies, medical reconciliation, outpatient chart review and discussion with specialists. This chart was completed in part utilizing Speech Voice Recognition Software. Grammatical errors, random word insertions, pronoun errors, and incomplete sentences are an occasional consequence of this system due to software limitations, ambient noise, and hardware issues. Any formal questions or concerns about the content, text, or information contained within the body of this dictation should be directly addressed to the provider for clarification. Admission and Anticipated Discharge Date Admission Date: December 15, 2024 Supervising Physician Co-Signing Physician Notes Attending Addendum: Case reviewed with the advanced practitioner. I have personally seen and examined patient at bedside I have reviewed the advanced practitioner's documentation on the date of service referenced in note, and I agree with, and take responsibility for the plan of care. please refer to her notes for full details patient seen and examined, records reviewed by myself as well diagnoses and plan of care as per advanced practitioner's notes I spent a total of 25 minutes coordinating, documenting, and providing care for this patient, excluding time spent in the performance of separately billed services or time spent by another provider/QHP. Brian Vale MD Subjective Patient seen and examined in room N282-1. History of severe intellectual disability. Nonverbal at baseline. More alert this morning but unable to follow direct commands. Has soft limb restraints on BUE due to agitation overnight. Patient with repeated attempts to remove her oxygen NC. Now appears to be calmin g down. Review of Systems Review of Systems: Unobtainable due to patient's cognitive status. Physical Exam Physical Exam: General/Neurologic: Middle-aged, F. Laying down in bed. Nonverbal at baseline. Known severe intellectual disability. Makes eye contact with conversation. Unable to follow commands. Incontinent of stool and urine. BUE soft restraints in place. Seems to be calming down, not fighting restraints. Respiratory: On 2L NC and saturating in the low to mid 90s. Normal respiratory effort. Lung sounds diminished throughout. Cardiovascular: Tachycardic rate, regular rhythm. No murmur. No BLE edema. Abdomen/GI: Normal bowel sounds, soft, nondistended, nontender to palpation in all quadrants. : Alcantara catheter intact and draining dark yellow urine. Hematuria improving. Extremities/MSK: No cyanosis or clubbing. Unable to perform extremity strength testing due to patient's cognitive status. Results & Data Results & Data Vital Signs (Past 12 Hours) Vital Signs Temp Pulse Pulse Resp BP Pulse Ox Pulse Ox 12/17/24 03:19 37.2 C 85 17 143/71 H 93 12/16/24 23:12 37.2 C 79 16 123/73 95 12/16/24 22:51 67 12/16/24 21:55 12/16/24 21:52 93 O2 Del Method O2 Del Method O2 Flow Rate O2 Flow Rate 12/17/24 03:19 Nasal Cannula 1 12/16/24 23:12 Nasal Cannula 1 12/16/24 22:51 12/16/24 21:55 Nasal Cannula 1 12/16/24 21:52 Nasal Cannula 1 Laboratory Results Short CBC 12/17/24 Range/Units 06:17 WBC 15.77 H (4.8-10.8) K/ul Hgb 8.6 L (12.0-16.0) g/dl Hct 26.3 L (37.0-47.0) % Plt Count 200 (130-400) K/uL BMP 12/17/24 06:17 Sodium 138 Potassium 3.8 Chloride 108 H Carbon Dioxide 22 BUN 20 Creatinine 0.79 Glucose 84 Calcium 7.6 L Liver Function 12/17/24 Range/Units 06:17 Total Bilirubin 0.2 (0.2-1.0) mg/dl AST 12 L (13-39) U/L ALT 13 (7-52) U/L Alkaline Phosphatase 111 H (34-104) U/L Albumin 2.7 L (3.4-5.0) gm/dl (1) Sepsis Sepsis acute organ dysfunction status: unspecified Sepsis type: sepsis due to unspecified organism Qualified Code(s): A41.9 - Sepsis, unspecified organism (2) Right upper lobe pneumonia Pneumonia type: due to unspecified organism Qualified Code(s): J18.9 - Pneumo nidia, unspecified organism (4) Anemia Anemia type: unspecified type Qualified Code(s): D64.9 - Anemia, unspecified (8) Epilepsy Epilepsy type: unspecified Intractability: not intractable Status epilepticus: without status epilepticus Qualified Code(s): G40.909 - Epilepsy, unspecified, not intractable, without status epilepticus
[2024-12-17 07:31] LABS: Albumin Level 2.7 gm/dl (3.4-5.0); BUN Creatinine Ratio 25.3 (10-20); Bilirubin,Total 0.2 mg/dl (0.2-1.0); Calcium 7.6 mg/dl (8.6-10.3); Globulin 2.6 gm/dl (2.5-4.0); Magnesium 1.8 mg/dl (1.7-2.4); Potassium 3.8 mmol/L (3.5-5.1); Total Protein 5.3 gm/dl (6.0-8.3)
[2024-12-17 08:13] LABS: Thyroid Stimulating Hormone 0.505 uIu/ml (0.300-4.500)
[2024-12-17 08:19] LABS: Ferritin 72.4 ng/ml (8-388)
[2024-12-17 08:37] LABS: Folate (Folic Acid),Ser orPlas 21.81 ng/ml (>5.38)
--- NOTE | 2024-12-17 10:40 | Pharmacy Report ---
Pharmacy PK ABX Note - Date of Service December 17, 2024 - Assessment and Plan Assessment 12/17: Renal function improved today. Predicted AUC of vancomycin is now predicted to be below the goal range. Vancomycin increased to 750mg iv q 8 hours. * 1 of 2 blood cultures from 12/15 grew staph hominis, repeat blood cultures drawn 12/17 are pending. * Preliminary urine culture from 12/15 showed < 1000 col/ml * Culture of urine from left kidney is still pending. 12/16: 59 year old F is receiving vancomycin for treatment of bacteremia likely secondary to underlying RUL pneumonia and is receiving Zosyn for a complicated UTI/pyelonephritis. * Pertinent microbiologic data includes: * 1 of 2 blood cultures from 12/15 growing gram positive cocci in clusters (staph sp shown in blood culture PCR) * Nasal MRSA swab from 12/15 is negative * Straight cath urine culture from 12/15 grew < 1000 col/mL (prelim) * Urine from left kidney culture from 12/16 is pending. Day # 1 of antimicrobial therapy. Plan Vancomycin * Loading dose: 1500 mg IV x 1 * Maintenance dose increased to : 750 mg IV every 8 hours * Regimen is predicted to achieve target AUC/KVNG of 400-600 mg/L.hr * trough ordered for 12/17 at 1130. Pharmacy will continue to follow and will adjust dose/frequency as necessary. Thank you. Pharmacy has transitioned to AUC monitoring for vancomycin. AUC/KVNG is the preferred PK/PD target and is associated with decreased risk of nephrotoxicity compared to traditional trough targets.
[2024-12-17] MEDS: DEUTETRABENAZINE PO SCH (11:08)
--- NOTE | 2024-12-17 14:05 | Urology Progress Note ---
Date of Service December 17, 2024 Assessment & Plan (1) Left ureteral calculus: (2) Complicated UTI (urinary tract infection): Plan POD #1 s/p Cystoscopy with irrigation of bladder and catheter placement and Left ureteroscopy, Retrograde Pyelogram, Left Stent Placement, ureteral dilation, and aspiration of left kidney with Febrile (Tmax 38.5C this morning). Normotensive and mildly tachycardic at present. Labs today show WBCs 15.77, creatinine 0.79 Urine culture 12/15 grew Gardnerella like bacilli Blood cultures 12/15 preliminary Staphylococcus /; repeat blood cultures pending Intraop urine culture from left kidney preliminary no growth Alcantara intact and draining yellow urine No further intervention warranted Continue supportive care and antibiotic therapy Plan to maintain ureteral stent and Alcantara catheter for maximum drainage of the urinary tract Will arrange outpatient follow-up with our service to discuss definitive stone treatment Urology will sign off. Please call with any further questions, concerns, or changes in patient status. Admission and Anticipated Discharge Date Admission Date: December 15, 2024 Subjective Pt seen at bedside today. No acute distress. Nurse at bedside. Alcantara draining clear yellow urine. Review of Systems Review of Systems: Unobtainable due to cognitive status Physical Exam Constitutional: no acute distress Neurologic: awake Nonverbal Genitourinary: Alcantara intact Results & Data Vital Signs (Past 12 Hours) Vital Signs Temp Pulse Pulse Resp BP Pulse Ox O2 Del Method 12/17/24 13:04 37.7 C H 95 H 24 92 Nasal Cannula 12/17/24 11:33 38.5 C H 105 H 20 128/69 93 Nasal Cannula 12/17/24 08:00 88 12/17/24 07:49 36.9 C 88 18 167/74 H 95 Nasal Cannula 12/17/24 07:46 Nasal Cannula 12/17/24 07:44 94 Nasal Cannula 12/17/24 07:44 86 L Room Air 12/17/24 03:19 37.2 C 85 17 143/71 H 93 Nasal Cannula O2 Flow Rate 12/17/24 13:04 1 12/17/24 11:33 2 12/17/24 08:00 12/17/24 07:49 3 12/17/24 07:46 3 12/17/24 07:44 3 12/17/24 07:44 12/17/24 03:19 1 PG Care Time/CCT Total # of Minutes Spent Total Time Spent with Patient: Total time spent is greater than 50% in coordination of care (as documented) at patient's floor/unit and/or counseling patient: Coding Level of Care Code 74914 SUB INP/OBS CARE 09/11MIN Diagnoses Left ureteral calculus N20.1 Complicated UTI (urinary tract infection) N39.0
[2024-12-17] MEDS: oxyBUTYnin chloride 5 MG TAB PO PRN (16:04)
[2024-12-17] MEDS: FERROUS SULFATE 325 MG TAB PO SCH (16:47)
[2024-12-17 18:23] LABS: Hematocrit (blood only) 27.5 % (37.0-47.0); Hemoglobin 9.1 g/dl (12.0-16.0)
[2024-12-17] MEDS: METOPROLOL TARTRATE 1 MG/ML VIAL IV STA (22:53)
[2024-12-17] MEDS: SODIUM CHLORIDE 0.9% 500 ML IV ONE (23:24)
[2024-12-17] MEDS: POTASSIUM CHLORIDE CRTAB 20 MEQ TABCR PO STA (23:28)
[2024-12-18] MEDS: MAGNESIUM SULFATE / D5W 1 GM/100 ML BAG IV ONE (00:20)
[2024-12-18] MEDS: NSS + 20MEQ KCL 20 MEQ/1,000 ML BAG IV ONE (00:25)
[2024-12-18 06:22] LABS: Basophils # (auto) 0.03 K/uL (0.00-0.20); Basophils % (auto) 0.2 %; Eosinophils # (auto) 0.17 K/uL (0.00-0.50); Eosinophils % (auto) 1.2 %; Hematocrit (blood only) 26.8 % (37.0-47.0); Hemoglobin 8.8 g/dl (12.0-16.0); Immature Granulocytes # (auto) 0.13 K/uL (0.01-0.20); Immature Granulocytes % (auto) 0.9 %; Lymphocytes # (auto) 2.12 K/uL (1.20-3.40); Lymphocytes % (auto) 15.4 %; Mean Corpuscular Hemoglobin 29.1 pg (25.0-34.0); Mean Corpuscular Hgb Conc 32.8 g/dL (32.0-36.0); Mean Corpuscular Volume 88.7 fL (80.0-100.0); Mean Platelet Volume 10.7 fL (9.4-12.4); Monocytes # (auto) 1.23 K/uL (0.11-0.59); Monocytes % (auto) 8.9 %; Neutrophils % (auto) 73.4 %; Platelet Count 224 K/uL (130-400); RDW Coefficient of Variation 12.8 % (11.5-14.5); RDW Standard Deviation 41.8 fL (36.4-46.3); Red Blood Count 3.02 M/uL (4.20-5.40); White Blood Count 13.78 K/ul (4.8-10.8)
[2024-12-18 06:49] LABS: Albumin Globulin Ratio 1.1 (0.9-2); Albumin Level 2.7 gm/dl (3.4-5.0); BUN Creatinine Ratio 21.7 (10-20); Bilirubin,Total 0.3 mg/dl (0.2-1.0); Calcium 7.6 mg/dl (8.6-10.3); Creatinine Clr Calc Pharmacy 89.5 ml/min; Globulin 2.5 gm/dl (2.5-4.0); Magnesium 1.9 mg/dl (1.7-2.4); Total Protein 5.2 gm/dl (6.0-8.3)
--- NOTE | 2024-12-18 07:42 | Hospitalist Progress Note ---
Date of Service December 18, 2024 Assessment & Plan (1) Sepsis: (2) Right upper lobe pneumonia: (3) Complicated UTI (urinary tract infection): Plan: Ines Delatorre is a nonverbal 59y/o F from [facility] with PMHx significant for severe intellectual disability, autism, epilepsy, recurrent MDD, OCD, mood disorder, history of SIADH, CKD stage III, GERD, SNHL of both ears, lesion of right lobe of liver, fecal and urinary incontinence, left nephrolithiasis, excessive salvation and generalized OA s/p recent R hip joint injection at [facility] on 11/30/24 who is admitted under our service due to sepsis secondary to underlying RUL PNA and complicated UTI in the setting of an obstructing proximal left ureteral stone with subsequent pyelonephritis. #Sepsis #Bilateral pneumonia #Bilateral pleural effusion #Acute hypoxic respiratory failure Suspect aspiration. DDx empyema Patient continues to be febrile throughout hospitalization Last night febrile and had P: 110 and BP 163/87. She was given dose of Lopressor and was noted to be hypotensive after with BP: 77/45 and was given IVF bolus with improved BP. This morning T: 38.2C, P: 77. R: 20, BP: 113/64, on 1L O2 via NC with sat: 95%. Negative MRSA swab and biofire respiratory panel on admission on 12/15/24 WBC: 13.7, improved from 20 on 12/15/24) CT chest obtained today: Right worse than left pneumonia. Right larger than left pleural effusions Continue Zosyn, Add doxycycline for atypical coverage Will discontinue vancomycin Initial 08/21 blood cultures growing Staphylococcus hominis - Possible contaminant. Repeat blood cultures preliminary with no growth Patient unable to participate with flutter valve/incentive spirometer. Will add Mucinex. Now requiring oxygen. Continue supplemental oxygen as needed ID consult Pulmonology consult. Speech consult Pleural effusions appear to be new. No known CHF history. Patient has received IVF during admission. Obtain resting echo May need to consider diuresis CBC, BMP in am #Complicated UTI #Obstructing proximal left ureter stone Initial UA suggestive of infection Initial urine culture with Gardnerella-like bacilli. S/P cystoscopy with irrigation of bladder and Alcantara catheter placement, left ureteroscopy with stent placement and aspiration of the left kidney performed by Dr. Napoles on 12/16/24. Procedural findings consistent with a severe obstruction of the left ureter stone impacted in stricture at the UPJ with severely purulent urine aspiration and irrigated from the left kidney. Urine from left kidney during above urologic procedure with no significant growth on preliminary culture. Continue Alcantara catheter as directed by urology. #Loose stools Nursing reported three episodes loose stools today C-diff, stool cultures pending (4) Anemia: Plan: Hgb: 8.8. Was 10.7 on 12/15/24 on admission. Has downtrended. Possible dilutional component. Prior hematuria s/p urology procedure appears to be resolving Iron 15, TIBC 195, transferrin 139 and ferritin 72.4; vit B12 and folate levels WNL. Was started on iron supplement (5) Intellectual disability: (6) Restlessness and agitation: Plan: Lives at [facility] During hospitalization had some agitation that required BUE soft restraints. These have since been removed Overnight and today calm and not pulling at oxygen or lines/tubing Prior provider had discussion with Rochelle, the nursing supervisor hot dip plating at [facility] who had reported that it is not uncommon for the patient to become acutely agitated in unfamiliar scenarios or after procedures. One to one bedside sitter as needed (7) Epilepsy: Plan: Continue home seizure medication regimen. Keppra and Lamictal levels pending. Follows with Dr. Ines Richardson of [facility] neurology. #GERD Continue pepcid #Excessive salvation Continue glycopyrrolate. #MDD/OCD/Tardive Dyskinesia Stable Continue home psychiatric medication regimen. Follows with psychiatry at [facility]. DVT Prophylaxis: SQ Lovenox Code Status: FULL CODE PCP: Josh Holman MD Disposition: Discharge plans uncertain at this time. Obtain PT/OT evaluations as able. Medical proxy is Mary Munoz @ [phone]. Mary is a distant aunt and lives in [place]. She is her only living relative. Nursing supervisor hot dip plating at [facility] is Rochelle @ [phone]. Patient seen in collaboration with Dr. Vale. Please see addendum. I spent a total of 60 minutes coordinating, documenting, and providing care for this patient excluding time spent in the performance of separately billed services or time spent by another provider/QHP. This included personally reviewing all current laboratories and imaging studies, medical reconciliation, outpatient chart review and discussion with specialists. Admission and Anticipated Discharge Date Admission Date: December 15, 2024 Supervising Physician Co-Signing Physician Notes Attending Addendum: Case reviewed with the advanced practitioner. I have personally seen and examined patient at bedside I have reviewed the advanced practitioner's documentation on the date of service referenced in note, and I agree with, and take responsibility for the plan of care. please refer to her notes for full details patient seen and examined, records reviewed by myself as well diagnoses and plan of care as per advanced practitioner's notes I spent a total of 25 minutes coordinating, documenting, and providing care for this patient, excluding time spent in the performance of separately billed services or time spent by another provider/QHP. Brian Vael MD Subjective Patient seen and examined in room 282-1. Is lying supine in bed. Patient nonverbal at baseline. She is awake. She looks at me when I am talking to her. She appears calm. Vitals reviewed and continues to be febrile. Last night febrile and had P: 110 and BP 163/87. She was given dose of lopressor and was noted to be hypotensive after with BP: 77/45 and was given IVF bolus with improved BP. This morning T: 38.2C, P: 77. R: 20, BP: 113/64, on 1L O2 via NC wi th sat: 95%. Review of Systems Review of Systems: Unobtainable due to cognitive status Physical Exam Physical Exam: General: no apparent distress at rest in bed with 1L NC oxygen on, WDWN Head: normocephalic, atraumatic Eyes: conjunctiva non-injected, anicteric ENT: normal inspection external ears, nose, mucous membranes moist Neck: supple, trachea midline Lungs: no respiratory distress on 1L oxygen via NC with sat 95%, Diminished breath sounds, unable to participate with deep inspiration CV: RRR, no pretibial edema Abd: normal BS, soft, no apparent tenderness to palpation Ext: no cyanosis, no calf tenderness Neuro: Alert, will start to move arms when asked but does not follow or participate with inspiration for auscultation of lungs. ARC caregiver feels patient near baseline mental status Skin: +hot, dry Results & Data Results & Data Vital Signs (Past 12 Hours) Vital Signs Temp Pulse Pulse Resp BP BP BP 12/18/24 05:34 114/66 12/18/24 05:02 111/67 12/18/24 03:00 37.3 C 70 16 93/58 L 12/18/24 02:03 88/54 L 12/18/24 01:53 90/54 L 12/18/24 00:56 37.5 C 83 20 99/61 L 12/18/24 00:01 145/66 H 12/17/24 23:50 37.1 C 12/17/24 23:11 69 77/45 L 12/17/24 23:00 38.9 C H 110 H 20 163/78 H 12/17/24 22:53 110 H 163/78 H 12/17/24 22:51 38.9 C H 110 H 16 163/78 H 12/17/24 21:44 103 H 12/17/24 21:00 Pulse Ox O2 Del Method O2 Flow Rate 12/18/24 05:34 12/18/24 05:02 12/18/24 03:00 96 Room Air 12/18/24 02:03 12/18/24 01:53 12/18/24 00:56 94 Nasal Cannula 1 12/18/24 00:01 12/17/24 23:50 12/17/24 23:11 12/17/24 23:00 93 Room Air 12/17/24 22:53 12/17/24 22:51 92 Nasal Cannula 1 12/17/24 21:44 12/17/24 21:00 Nasal Cannula 1 Laboratory Results Short CBC 12/17/24 12/18/24 Range/Units 18:05 05:52 WBC 13.78 H (4.8-10.8) K/ul Hgb 9.1 L 8.8 L (12.0-16.0) g/dl Hct 27.5 L 26.8 L (37.0-47.0) % Plt Count 224 (130-400) K/uL BMP 12/18/24 05:52 Sodium 138 Potassium 4.0 Chloride 108 H Carbon Dioxide 25 BUN 15 Creatinine 0.69 Glucose 92 Calcium 7.6 L Liver Function 12/18/24 Range/Units 05:52 Total Bilirubin 0.3 (0.2-1.0) mg/dl AST 18 (13-39) U/L ALT 25 (7-52) U/L Alkaline Phosphatase 134 H (34-104) U/L Albumin 2.7 L (3.4-5.0) gm/dl Diagnostic Findings Abdomen/Pelvis CT 12/18/24 08:04 Technique: Axial computed tomography images were obtained of the abdomen and pelvis without intravenous contrast. Comparison is made to the prior CT dated 12/15/2024 Findings: The liver is overall of normal size, attenuation, and contour with no sign of cirrhosis or significant fatty infiltration. No definite liver mass lesion is seen on this noncontrast study. The gallbladder appears unremarkable. No bile duct dilatation is noted. The spleen is of normal size. No focal splenic lesion is evident. The pancreas appears normal with no sign of acute or chronic pancreatitis and no mass lesion noted. The pancreatic duct is of normal caliber. The adrenal glands appear unremarkable. There has been resolution of the previously left hydronephrosis after placement of a left ureteral stent. There is a 5 mm calculus in the left renal pelvis. There are bilateral renal calculi, measuring up to 7 mm in size. No definite renal mass lesion is identified. Pyelonephritis is not well evaluated for on this noncontrast study The aorta is of normal caliber. No abdominal adenopathy is seen. The stomach appears normal. There is no sign of small bowel obstruction. The colon appears unremarkable. The appendix appears normal also. No free intraperitoneal fluid or air is identified. The bladder is decompressed, containing a Alcantara catheter. The iliac arteries are of normal caliber. No pelvic adenopathy is noted. There are apparent uterine leiomyomas Lumbar scoliosis and degenerative disc disease is seen. There is right worse than left hip osteoarthritis. No fracture is identified. No focal osseous lesion is seen Impression: 1. Resolution of the previously seen left hydronephrosis after placement of a left ureteral stent 2. Multiple bilateral renal calculi 3. Uterine leiomyomas ACT 112: Positive. There are findings on this exam that require communication between the performing entity and the patient following Patient Test Result Information Act ([place] ACT 112) guidelines. Electronically signed by Landon Cason 12-18-2024 09:[address] 12/18/24 08:04 Clinical history: Rule out pneumonia Technique: Axial computed tomography images were obtained of the chest without intravenous contrast Comparison is made to the prior CT dated 08/27/2023 Findings: There are multifocal alveolar infiltrates in the right upper lobe and to a lesser extent the right middle lobe, left upper lobe, and right lower lobe. This is consistent with pneumonia. There is bilateral lower lobe atelectasis. There is a small to moderate right pleural effusion and there is a small left pleural effusion. There is no pneumothorax. There is no mediastinal, hilar, or axillary adenopathy. The thoracic aorta is of normal caliber. There is no pericardial effusion. There are prominent mitral annulus calcifications No fracture is seen. No focal osseous lesion is evident Impression: 1. Right worse than left pneumonia 2. Right larger than left pleural effusions ACT 112: Positive. There are findings on this exam that require communication between the performing entity and the patient following Patient Test Result Information Act ([place] ACT 112) guidelines. Electronically signed by Landon Cason 12-18-2024 09:32 AM (1) Sepsis Sepsis acute organ dysfunction status: unspecified Sepsis type: sepsis due to unspecified organism Qualified Code(s): A41.9 - Sepsis, unspecified organism (2) Right upper lobe pneumonia Pneumonia type: due to unspecified organism Qualified Code(s): J18.9 - Pneumonia, unspecified organism (4) Anemia Anemia type: unspecified type Qualified Code(s): D64.9 - Anemia, unspecified (7) Epilepsy Epilepsy type: unspecified Intractability: not intractable Status epilepticus: without status epilepticus Qualified Code(s): G40.909 - Epilepsy, unspecified, not intractable, without status epilepticus
--- NOTE | 2024-12-18 09:27 | CT Scan Report ---
Technique: Axial computed tomography images were obtained of the abdomen and pelvis without intravenous contrast. Comparison is made to the prior CT dated 12/15/2024 Findings: The liver is overall of normal size, attenuation, and contour with no sign of cirrhosis or significant fatty infiltration. No definite liver mass lesion is seen on this noncontrast study. The gallbladder appears unremarkable. No bile duct dilatation is noted. The spleen is of normal size. No focal splenic lesion is evident. The pancreas appears normal with no sign of acute or chronic pancreatitis and no mass lesion noted. The pancreatic duct is of normal caliber. The adrenal glands appear unremarkable. There has been resolution of the previously left hydronephrosis after placement of a left ureteral stent. There is a 5 mm calculus in the left renal pelvis. There are bilateral renal calculi, measuring up to 7 mm in size. No definite renal mass lesion is identified. Pyelonephritis is not well evaluated for on this noncontrast study The aorta is of normal caliber. No abdominal adenopathy is seen. The stomach appears normal. There is no sign of small bowel obstruction. The colon appears unremarkable. The appendix appears normal also. No free intraperitoneal fluid or air is identified. The bladder is decompressed, containing a Alcantara catheter. The iliac arteries are of normal caliber. No pelvic adenopathy is noted. There are apparent uterine leiomyomas Lumbar scoliosis and degenerative disc disease is seen. There is right worse than left hip osteoarthritis. No fracture is identified. No focal osseous lesion is seen Impression: 1. Resolution of the previously seen left hydronephrosis after placement of a left ureteral stent 2. Multiple bilateral renal calculi 3. Uterine leiomyomas ACT 112: Positive. There are findings on this exam that require communication between the performing entity and the patient following Patient Test Result Information Act ([place] ACT 112) guidelines. Electronically signed by Landon Cason 12-18-2024 09:26 AM
--- NOTE | 2024-12-18 09:33 | CT Scan Report ---
Clinical history: Rule out pneumonia Technique: Axial computed tomography images were obtained of the chest without intravenous contrast Comparison is made to the prior CT dated 08/27/2023 Findings: There are multifocal alveolar infiltrates in the right upper lobe and to a lesser extent the right middle lobe, left upper lobe, and right lower lobe. This is consistent with pneumonia. There is bilateral lower lobe atelectasis. There is a small to moderate right pleural effusion and there is a small left pleural effusion. There is no pneumothorax. There is no mediastinal, hilar, or axillary adenopathy. The thoracic aorta is of normal caliber. There is no pericardial effusion. There are prominent mitral annulus calcifications No fracture is seen. No focal osseous lesion is evident Impression: 1. Right worse than left pneumonia 2. Right larger than left pleural effusions ACT 112: Positive. There are findings on this exam that require communication between the performing entity and the patient following Patient Test Result Information Act ([place] ACT 112) guidelines. Electronically signed by Landon Cason 12-18-2024 09:32 AM
--- NOTE | 2024-12-18 12:59 | Pharmacy Report ---
Pharmacy PK ABX Note - Date of Service December 18, 2024 - Assessment and Plan Assessment 12/18: * Day #3 of Vancomycin and Zosyn. Doxycycline added this morning as well (D #1). ID has been consulted so will await their input on Friday. * Remains persistently febrile. SCr and WBCs continue to improve. 12/15/24 BCx's grew Staph hominis in 1/4 bottles, likely represents contamination. Urine culture with gardnerella. Repeat BCx's with no growth to date. * Vanc level this morning therapeutic. 12/17: Renal function improved today. Predicted AUC of vancomycin is now predicted to be below the goal range. Vancomycin increased to 750mg iv q 8 hours. * 1 of 2 blood cultures from 12/15 grew staph hominis, repeat blood cultures drawn 12/17 are pending. * Preliminary urine culture from 12/15 showed < 1000 col/ml * Culture of urine from left kidney is still pending. 12/16: 59 year old F is receiving vancomycin for treatment of bacteremia likely secondary to underlying RUL pneumonia and is receiving Zosyn for a complicated UTI/pyelonephritis. * Pertinent microbiologic data includes: * 1 of 2 blood cultures from 12/15 growing gram positive cocci in clusters (staph sp shown in blood culture PCR) * Nasal MRSA swab from 12/15 is negative * Straight cath urine culture from 12/15 grew < 1000 col/mL (prelim) * Urine from left kidney culture from 12/16 is pending. * Day # 1 of antimicrobial therapy. Plan Vancomycin * Current regimen: 750 mg IV every 8 hours * Trough level obtained 12/18/24 resulted as 16.1 mcg/mL. This is predicted to achieve target AUC/KVNG of 400-600 mg/L.hr * Predicted AUC at steady state: 578 mg/L.hr * Continue 750 mg IV every 8 hours * Repeat trough level ordered for: 12/20/24 Zosyn * 4.5 g IV every 8 hours Doxycycline * 100 mg IV every 12 hours Pharmacy will continue to follow and will adjust dose/frequency as necessary. Thank you. Pharmacy has transitioned to AUC monitoring for vancomycin. AUC/KVNG is the preferred PK/PD target and is associated with decreased risk of nephrotoxicity compared to traditional trough targets.
--- NOTE | 2024-12-18 13:17 | Pulmonary Consultation ---
Date of Consultation December 18, 2024 Assessment & Plan (1) Multifocal pneumonia: (2) Acute respiratory failure with hypoxia: (3) Pleural effusion: (4) Autism: (5) Diastolic dysfunction: (6) Morbid obesity: (7) Intellectual disability: Plan CT chest 12/18/2024 personally reviewed patchy opacities appreciated in the right upper lobe Bilateral pleural effusion, moderate on the right and small on the left Dilated patulous esophagus Probable EDAC No significant mediastinal lymphadenopathy -- Acute hypoxic respiratory failure Multifactorial Multifocal pneumonia along with bilateral pleural effusion Respiratory BioFire negative for everything Nasal MRSA negative There is a probability that patient might be aspirating -- Bilateral pleural effusion Patient is +9 L since coming to the hospital --Intellectual disability Plan: Patient is +9 L since coming to the hospital Would recommend to diurese the patient if possible with goal negative balance of at least 1 L on a daily basis 20 mg of Lasix will be given to the patient 2D echo to look at the EF and diastolic function Antibiotics to cover for pneumonia. Patient is on Vanco and Zosyn right now. Given nasal MRSA negative, if the vancomycin is for pulmonary infection then okay to discontinue There is high likelihood of patient aspirating as well. Would recommend a swallow eval when she is deemed to be stable Continue with Tylenol and NSAIDs to keep the patient euthermic. Ice packs could also be thought of as Tmax is reaching up to 39. Incentive spirometry as well as BiPAP will be beneficial for the patient but given the issue with mentation I do not think it would be possible I spent more than 75 minutes looking in the chart, images, discussing the plan of care with the patient, RN at bedside as well as primary team Please note the above document was generated using voice recognition software. It may contain grammatical, syntax or spelling errors.Any formal questions or concerns about the content, text or information contained within the body of this dictation should be directly addressed to the provider for clarification. History of Present Illness Attending Physician: Brian Vale MD History of Present Illness 59-year-old female was admitted to the hospital for altered mental status, was found to be in sepsis from UTI Past medical history: Intellectual disability, epilepsy, GERD, incontinence of urine and stool, nephrolithiasis, epilepsy, tardive dyskinesia Pulmonary consulted for abnormal chest CT At the time of examination patient was resting comfortably on the bed She was saturating 90-91% on room air Not any respiratory distress. Patient is unfortunately nonverbal. Nurse was in the room to help me with history as well as current events. She had an episode of hypotension overnight as she got metoprolol for high blood pressure. Latest systolic blood pressure was 130 which was taken by the nurse herself. She has a Alcantara catheter and has been diuresing well. Tmax 38.9 History was obtained from previous chart Social history: Lifetime non-smoker Allergies Allergy/AdvReac Type Severity Reaction Status Date / Time NSAIDS (Non-Steroidal Allergy Intermediate Unverified 11/25/24 13:06 Anti-Inflamma naproxen Allergy Unknown Unknown Verified 02/11/21 18:30 Home Medications Medication Instructions Recorded Confirmed Type acetaminophen 500 mg tablet 1,000 mg PO Q4H PRN Headache/Pain 12/15/24 12/15/24 History acetaminophen 500 mg tablet 500 mg PO QAM 12/15/24 12/15/24 History aloe vera 1 applic topical Q1H PRN Sunburn 12/15/24 12/15/24 History aluminum-mag hydroxide-simethicone 10 ml PO DIRECTED PRN 12/15/24 12/15/24 History 400 mg-400 mg-40 mg/5 mL oral susp Indigestion (Maalox Maximum Strength) bisacodyl 5 mg tablet,delayed 10 mg PO Q3D PRN Constipation 12/15/24 12/15/24 History release calcium 500 mg (as 1 tab PO QAM 12/15/24 12/15/24 History carbonate)-vitamin D3 5 mcg (200 unit) tablet chlorhexidine gluconate 0.12 % 1 applic buccal TID 12/15/24 12/15/24 History mouthwash clobazam 10 mg tablet 5 mg PO HS 12/15/24 12/15/24 History deutetrabenazine 36 mg 36 mg PO DAILY 12/15/24 12/15/24 History tablet,extended release 24 hr (Austedo XR) dextromethorphan-guaifenesin 20 10 ml PO Q4H PRN Cough 12/15/24 12/15/24 History mg-400 mg/5 mL oral liquid docusate sodium 100 mg capsule 100 mg PO BID 12/15/24 12/15/24 History famotidine 40 mg tablet 40 mg PO DAILY 12/15/24 12/15/24 History fluoride (sodium) 1.1 % dental 1 applic dental DAILY 12/15/24 12/15/24 History cream (Sodium Fluoride 5000 Plus) glycopyrrolate 1 mg tablet 1 mg PO TID 12/15/24 12/15/24 History hydrocortisone 1 % topical cream 1 applic topical TID PRN Rash 12/15/24 12/15/24 History lamotrigine 100 mg tablet 50 mg PO BID 12/15/24 12/15/24 History lamotrigine 200 mg tablet 200 mg PO BID 12/15/24 12/15/24 History levetiracetam 1,000 mg tablet 1,000 mg PO BID 12/15/24 12/15/24 History levetiracetam 500 mg tablet 500 mg PO BID 12/15/24 12/15/24 History loperamide 2 mg capsule 2 mg PO DIRECTED PRN Loose Stool 12/15/24 12/15/24 History multivitamin 1 tab PO QAM 12/15/24 12/15/24 History perphenazine 2 mg tablet 2 mg PO BID 12/15/24 12/15/24 History perphenazine 4 mg tablet 4 mg PO HS 12/15/24 12/15/24 History phenylephrine HCl 10 mg tablet 10 mg PO Q4H PRN Colds/Runny Nose 12/15/24 12/15/24 History phosphorated carbohydrate oral 30 ml PO DIRECTED PRN Nausea 12/15/24 12/15/24 History solution (Emetrol oral solution) polyethylene glycol 3350 17 17 g PO DAILY 12/15/24 12/15/24 History gram/dose oral powder quetiapine 200 mg tablet 200 mg PO HS 12/15/24 12/15/24 History quetiapine 50 mg tablet 50 mg PO QAM 12/15/24 12/15/24 History sertraline 100 mg tablet 100 mg PO QAM 12/15/24 12/15/24 History Patient History Medical History Traumatic wound Acute and chronic respiratory failure with hypercapnia Obesity hypoventilation syndrome Diastolic dysfunction Hypothyroidism Shortness of breath Cough Hypoxia RSV (respiratory syncytial virus infection) Cervical mass Morbid obesity Bilateral lower leg cellulitis Acute respiratory failure with hypoxia and hypercarbia Reactive airway disease Acute respiratory failure with hypoxia and hypercapnia Acute respiratory failure with hypercapnia Hypercapnia resolved Hypoxia resolved Impacted cerumen of both ears Sensorineural hearing loss (SNHL) of both ears History of kidney disease Stage 3 Dementia Depression Eating disorder Postmenopausal status Primary hypothyroidism Down syndrome Hypertension Hypercholesteremia Somnolence Sialoadenitis, unspecified Polypharmacy Fall Acute head injury MR (mental retardation) Post-menopausal Pharyngoesophageal dysphagia Osteoarthritis Obesity Mood disorder Chronic kidney disease, stage 3 Hearing loss Hallucinations Hx of esophagitis Dry eyes Degenerative disc disease, lumbar Constipation Bursitis unilateral hip, unsure which side Asthma Arthritis GERD (gastroesophageal reflux disease) Cataracts, bilateral Sleep apnea no current device, getting tested again in 09/2023 Depression Hx of breast lump Intellectual disability Surgical History No significant past surgical history Surgical history unknown Social History Smoking Status: Unknown if ever smoked Hx Alcohol Use: No Hx Substance Use: No Preferred Language: Sami Communication Ability: Unable Communication Ability Comment: pt. nonverbal, sometimes cooperates with staff nurse anesthetist Required: No marital status: Single Current Living Situation: Personal Care Facility Current Living Situation Comment: [facility] current occupational status: disabled Other Information That Helps Us Care for You: No Feels Safe at Home: Declines to Answer Assistive Devices: Walker and Wheelchair Review of Systems 2 Review of Systems: All systems reviewed & are unremarkable except as noted in HPI & below Physical Exam 2 Physical Exam: Constitutional: No acute distress HEENT: PERRLA Respiratory system: Decreased air entry bilaterally, no wheeze, mild rhonchi, positive crackles appreciated bilaterally anteriorly and posteriorly more on the right side CVS: S1-S2 positive, no murmurs or gallops Abdomen: Soft, nontender, nondistended, positive bowel sounds x4 Extremities: +2 pulses bilaterally radialis/ dorsalis pedis, no cyanosis, +2 pitting edema bilateral ankle Neuro: Sleeping Psych: Unable to assess G/U: Positive Alcantara Skin: no rashes, warm and dry Lymphatic: no cervical or axillary lymphadenopathy Results & Data Results & Data Vital Signs (Past 12 Hours) Vital Signs Temp Pulse Resp BP BP Pulse Ox O2 Del Method 12/18/24 12:32 38.5 C H 115 H 20 90/70 L 91 Nasal Cannula 12/18/24 08:07 38.2 C H 77 20 113/64 95 Nasal Cannula 12/18/24 05:34 114/66 12/18/24 05:02 111/67 12/18/24 03:00 37.3 C 70 16 93/58 L 96 Room Air 12/18/24 02:03 88/54 L 12/18/24 01:53 90/54 L O2 Flow Rate 12/18/24 12:32 1 12/18/24 08:07 1 12/18/24 05:34 12/18/24 05:02 12/18/24 03:00 12/18/24 02:03 12/18/24 01:53 Laboratory Results 12/18/24 05:52 12/18/24 05:52 PG Care Time/CCT Total # of Minutes Spent Total Time Spent with Patient: Total time spent is greater than 50% in coordination of care (as documented) at patient's floor/unit and/or counseling patient: Coding Level of Care Code 16769 INT INP/OBS CARE 3/75MIN Diagnoses Multifocal pneumonia J18.9 Acute respiratory failure with hypoxia J96.01 Pleural effusion J90 Autism F84.0 Diastolic dysfunction I51.89 Morbid obesity E66.01 Intellectual disability F79
[2024-12-18] MEDS: VANCOMYCIN LEVEL ONE (13:28)
[2024-12-18] MEDS: DOXYCYCLINE HYCLATE 100 MG in DEXTROSE 5% MINI-B 100 ML IV SCH (13:48)
[2024-12-18 15:07] LABS: Adenovirus F 40/41 PCR Not Detected (NotDetected); Astrovirus PCR Not Detected (NotDetected); Campylobacter PCR Not Detected (NotDetected); Cryptosporidium PCR Not Detected (NotDetected); Cyclospora cayetanensis PCR Not Detected (NotDetected); Entamoeba histolytica PCR Not Detected (NotDetected); Enteroaggregative E.coli(EAEC) Not Detected (NotDetected); Enteropathogenic E.coli (EPEC) Not Detected (NotDetected); Enterotoxigenic E.coli (ETEC) Not Detected (NotDetected); Giardia lamblia PCR Not Detected (NotDetected); Norovirus GI/GII PCR Not Detected (NotDetected); Plesiomonas shigelloides PCR Not Detected (NotDetected); Rotavirus A PCR Not Detected (NotDetected); Salmonella PCR Not Detected (NotDetected); Sapovirus PCR Not Detected (NotDetected); Shiga-like Toxin E.coli (STEC) Not Detected (NotDetected); Shigella/Enteroinvasive E.coli Not Detected (NotDetected); Vibrio cholerae PCR Not Detected (NotDetected); Vibrio species PCR Not Detected (NotDetected); Yersinia enterocolitica PCR Not Detected (NotDetected)
[2024-12-18] MEDS: FUROSEMIDE INJ 20 MG/2 ML VIAL IV ONE (17:24)
[2024-12-18] MEDS: LOPERAMIDE HCL 2 MG CAP PO PRN (20:11)
[2024-12-18] MEDS: KETOROLAC TROMETHAMINE 15 MG/ML VIAL IV ONE (22:44)
[2024-12-19 04:59] LABS: Allen Test Pos (Pos); HCO3 ABG 27 mmol/L (19-24); Oxygen Saturation ABG 98.8 % (90-95); PCO2 ABG 44 mmHg (35-46); PO2 ABG 98 mmHg (80-95)
[2024-12-19 06:32] LABS: Basophils # (auto) 0.02 K/uL (0.00-0.20); Basophils % (auto) 0.2 %; Eosinophils # (auto) 0.18 K/uL (0.00-0.50); Eosinophils % (auto) 1.4 %; Hematocrit (blood only) 26.8 % (37.0-47.0); Hemoglobin 8.9 g/dl (12.0-16.0); Immature Granulocytes # (auto) 0.23 K/uL (0.01-0.20); Immature Granulocytes % (auto) 1.8 %; Lymphocytes # (auto) 2.49 K/uL (1.20-3.40); Mean Corpuscular Hemoglobin 29.1 pg (25.0-34.0); Mean Corpuscular Hgb Conc 33.2 g/dL (32.0-36.0); Mean Corpuscular Volume 87.6 fL (80.0-100.0); Mean Platelet Volume 10.5 fL (9.4-12.4); Monocytes # (auto) 1.18 K/uL (0.11-0.59); Monocytes % (auto) 9.5 %; Neutrophils # (auto) 8.35 K/uL (1.40-6.50); Neutrophils % (auto) 67.1 %; Platelet Count 234 K/uL (130-400); RDW Coefficient of Variation 12.7 % (11.5-14.5); Red Blood Count 3.06 M/uL (4.20-5.40); White Blood Count 12.45 K/ul (4.8-10.8)
[2024-12-19 07:02] LABS: BUN Creatinine Ratio 15.9 (10-20); Calcium 7.7 mg/dl (8.6-10.3); Creatinine Clr Calc Pharmacy 94.4 ml/min; Magnesium 1.5 mg/dl (1.7-2.4); Potassium 3.3 mmol/L (3.5-5.1)
--- NOTE | 2024-12-19 07:27 | Hospitalist Progress Note ---
Date of Service December 19, 2024 Assessment & Plan (1) Sepsis: (2) Right upper lobe pneumonia: (3) Complicated UTI (urinary tract infection): Plan: Ines Delatorre is a nonverbal 59y/o F from [facility] with PMHx significant for severe intellectual disability, autism, epilepsy, recurrent MDD, OCD, mood disorder, history of SIADH, CKD stage III, GERD, SNHL of both ears, lesion of right lobe of liver, fecal and urinary incontinence, left nephrolithiasis, excessive salvation and generalized OA s/p recent R hip joint injection at [facility] on 11/30/24 who is admitted under our service due to sepsis secondary to underlying RUL PNA and complicated UTI in the setting of an obstructing proximal left ureteral stone with subsequent pyelonephritis. #Sepsis #Bilateral pneumonia #Bilateral pleural effusion #Acute hypoxic respiratory failure #Suspect aspiration pneumonia Patient continued to be febrile last night. This morning afebrile, Continue to monitor Negative MRSA swab and Biofire respiratory panel on admission on 12/15/24 WBC:12.5. Is improved from 20 on admission on 12/15/24 12/18/24 CT chest: Right worse than left pneumonia. Right larger than left pleural effusions 12/19/2024: EF 55-60%, mild concentric LVH, grade 1 diastolic dysfunction, RV normal in size and function Continue Zosyn. Yesterday doxycycline was added for atypical coverage Vancomycin was discontinued yesterday Initial 08/21 blood cultures growing Staphylococcus hominis - Possible contam inant. Repeat blood cultures with no growth Patient unable to participate with flutter valve/incentive spirometer. Will add Mucinex. Continue supplemental oxygen as needed Suspect patient has possible underlying undiagnosed ALINA or OHS Pleural effusions appear to be new. No known CHF history. Patient has received IVF during admission. Patient given Lasix 20mg IV yesterday and had 4000ml urine output Give additional Lasix 20mg today and monitor. May require additional dose tomorrow Plan for repeat CXR tomorrow Pulmonology consult. Appreciate recommendations. Had recommended Lasix and cont inuation of antibiotics Speech consult ID consult CBC, BMP in am #Complicated UTI #Obstructing proximal left ureter stone Initial UA suggestive of infection Initial urine culture with Gardnerella-like bacilli. S/P cystoscopy with irrigation of bladder and Alcantara catheter placement, left ureteroscopy with stent placement and aspiration of the left kidney performed by Dr. Napoles on 12/16/24. Procedural findings consistent with a severe obstruction of the left ureter stone impacted in stricture at the UPJ with severely purulent urine aspiration and irrigated from the left kidney. Urine from left kidney during above urologic procedure with no significant growth on preliminary culture. Continue Alcantara catheter as directed by urology. Is on Zosyn as above #Hypokalemia K: 3.3 Replace and monitor #Hypomagnesemia Magnesium: 1.5 Replace and monitor #Loose stools Nursing reported three episodes loose stools today C-diff, stool cultures pending #Pseudohypocalcemia corrected Ca for albumin is 8.7 (4) Anemia: Plan: Hgb: 8.9. Was 8.8 yesterday and was 10.7 on 12/15/24 on admission. Has downtrended. Possible dilutional component. Prior hematuria s/p urology procedure has resolved Iron 15, TIBC 195, transferrin 139 and ferritin 72.4; vit B12 and folate levels WNL. Was started on iron supplement (5) Intellectual disability: (6) Restlessness and agitation: Plan: Lives at [facility] During early hospitalization had some agitation that required BUE soft restraints that were later able to be removed Last evening pulling at oxygen tubing and taking off and noted desaturation. Soft hand mitts were applied last night Prior provider had discussion with Rochelle, the nursing supervisor bakery sanitation at [facility] who had reported that it is not uncommon for the patient to become acutely agitated in unfamiliar scenarios or after procedures. One to one bedside sitter as needed (7) Epilepsy: Plan: Continue home seizure medication regimen. Keppra and Lamictal levels pending. Follows with Dr. Ines Richardson of [facility] neurology. #GERD Continue pepcid #Excessive salvation Continue glycopyrrolate. #MDD/OCD/Tardive Dyskinesia Stable Continue home psychiatric medication regimen. Follows with psychiatry at [facility]. DVT Prophylaxis: SQ Lovenox Code Status: FULL CODE PCP: Josh Holman MD Disposition: Discharge plans uncertain at this time. Obtain PT/OT evaluations as able. Medical proxy is Mary Munoz @ [phone]. Mary is a distant aunt and lives in [place]. She is her only living relative. Nursing supervisor bakery sanitation at [facility] balbina Byrd @ [phone]. Patient seen in collaboration with Dr. Vale. Please see addendum. I spent a total of 50 minutes coordinating, documenting, and providing care for this patient excluding time spent in the performance of separately billed services or time spent by another provider/QHP. This included personally reviewing all current laboratories and imaging studies, medical reconciliation, outpatient chart review and discussion with specialists. Admission and Anticipated Discharge Date Admission Date: December 15, 2024 Supervising Physician Co-Signing Physician Notes Attending Addendum: Case reviewed with the advanced practitioner. I have reviewed the advanced practitioner's documentation on the date of service referenced in note, and I agree with, and take responsibility for the plan of care. please refer to her notes for full details patient seen and examined, records reviewed by myself as well diagnoses and plan of care as per advanced practitioner's notes I spent a total of 20 minutes coordinating, documenting, and providing care for this patient, excluding time spent in the performance of separately billed services or time spent by another provider/QHP. Brian Vael MD Subjective Patient seen and examined in room 282-1. Is lying supine in bed and sleeping. Awakens and looks at me with light touch and drifts back to sleep. Patient nonverbal at baseline. She appears calm currently. Has soft mitts on hands in place as was pulling off oxygen tubing yesterday evening. Vitals reviewed and Tmax 38.7C at 22:00 on 12/18/24 and received oral Tylenol at 20:11 and and IV Toradol at 22:44 and has been afebrile so far this morning. Has been able to take medication. Review of Systems Review of Systems: Unobtainable due to cognitive status Physical Exam Physical Exam: General: Currently resting in bed no apparent distress with 2L NC oxygen on with sat 98%, WDWN Head: normocephalic, atraumatic Eyes: conjunctiva non-injected, anicteric ENT: normal inspection external ears, nose, mucous membranes moist Neck: supple, trachea midline Lungs: no respiratory distress on 2L oxygen via NC with sat 98%, Diminished breath sounds, unable to participate with deep inspiration CV: RRR, + pretibial edema Abd: normal BS, soft, no apparent tenderness to palpation Ext: no cyanosis, no calf tenderness Neuro: Sleeping but awakens to voice and light touch and will look at provider and drift back to sleep. Skin: warm, dry Results & Data Results & Data Vital Signs (Past 12 Hours) Vital Signs Temp Pulse Pulse Resp BP Pulse Ox O2 Del Method 12/19/24 03:14 36.7 C 62 16 113/64 99 Nasal Cannula 12/19/24 00:17 37.1 C 12/18/24 22:20 92 H 12/18/24 22:00 38.7 C H 88 20 161/76 H 96 Nasal Cannula 12/18/24 19:50 Nasal Cannula 12/18/24 19:41 37.9 C H 85 20 154/82 H 96 Nasal Cannula O2 Flow Rate 12/19/24 03:14 2 12/19/24 00:17 12/18/24 22:20 12/18/24 22:00 2 12/18/24 19:50 2 12/18/24 19:41 2 Laboratory Results Short CBC 12/19/24 Range/Units 05:54 WBC 12.45 H (4.8-10.8) K/ul Hgb 8.9 L (12.0-16.0) g/dl Hct 26.8 L (37.0-47.0) % Plt Count 234 (130-400) K/uL BMP 12/19/24 05:54 Sodium 138 Potassium 3.3 L Chloride 104 Carbon Dioxide 30 BUN 10 Creatinine 0.63 Glucose 90 Calcium 7.7 L (1) Sepsis Sepsis acute organ dysfunction status: unspecified Sepsis type: sepsis due to unspecified organism Qualified Code(s): A41.9 - Sepsis, unspecified organism (2) Right upper lobe pneumonia Pneumonia type: due to unspecified organism Qualified Code(s): J18.9 - Pneumonia, unspecified organism (4) Anemia Anemia type: unspecified type Qualified Code(s): D64.9 - Anemia, unspecified (7) Epilepsy Epilepsy type: unspecified Intractability: not intractable Status epilepticus: without status epilepticus Qualified Code(s): G40.909 - Epilepsy, unspecified, not intractable, without status epilepticus
[2024-12-19] MEDS: MAGNESIUM SULFATE / D5W 1 GM/100 ML BAG IV ONE (07:52)
[2024-12-19] MEDS: POTASSIUM CHLORIDE CRTAB 20 MEQ TABCR PO STA (07:53)
--- NOTE | 2024-12-19 10:48 | Pulmonology Progress Note ---
Date of Service December 19, 2024 Assessment & Plan (1) Multifocal pneumonia: (2) Acute respiratory failure with hypoxia: (3) Pleural effusion: (4) Autism: (5) Diastolic dysfunction: (6) Morbid obesity: (7) Intellectual disability: Plan CT chest 12/18/2024 personally reviewed patchy opacities appreciated in the right upper lobe Bilateral pleural effusion, moderate on the right and small on the left Dilated patulous esophagus Probable EDAC No significant mediastinal lymphadenopathy 2D echo 12/19/2024: EF 55-60%, mild concentric LVH, grade 1 diastolic dysfunction, RV normal in size and function -- Acute hypoxic respiratory failure Multifactorial Multifocal pneumonia along with bilateral pleural effusion Respiratory BioFire negative for everything Nasal MRSA negative There is a probability that patient might be aspirating --Probable ALINA/OHS Patient desaturates whenever she is sleeping There is a high probability that she has sleep apnea, I am certain that she would not be able to tolerate CPAP or BiPAP Continue with O2 supplementation whenever she is sleeping to keep saturation around 90-92% -- Bilateral pleural effusion Patient is +9 L since coming to the hospital --Intellectual disability Plan: In/out: -2.5 L, urine output 4076, +6.5 L since coming to the hospital Will give another 20 mg of Lasix today. Recommend another dose of Lasix tomorrow if creatinine is good Continue with antibiotics to cover for pneumonia. Continue with Zosyn and doxycycline Would recommend a swallow eval when she is deemed to be stable Incentive spirometry as well as BiPAP will be beneficial for the patient but given the issue with mentation I do not think it would be possible No further recommendation from pulmonary perspective, will sign off Please call directly with any questions I spent more than 50 minutes looking in the chart, images, discussing the plan of care with RN as well as primary team on the phone Please note the above document was generated using voice recognition software. It may contain grammatical, syntax or spelling errors.Any formal questions or concerns about the content, text or information contained within the body of this dictation should be directly addressed to the provider for clarification. Admission and Anticipated Discharge Date Admission Date: December 15, 2024 Subjective Patient seen and examined at bedside. No acute distress, no adverse events overnight She was resting comfortably. Tmax 38.7 in the last 12 hours. Diuresing well with the help of Lasix Review of Systems 2 Review of Systems: All systems reviewed & are unremarkable except as noted in Subjective Physical Exam 2 Physical Exam: Constitutional: No acute distress HEENT: PERRLA Respiratory system: Decreased air entry bilaterally, no wheeze, mild rhonchi, p ositive crackles appreciated bilaterally anteriorly and posteriorly more on the right side CVS: S1-S2 positive, no murmurs or gallops Abdomen: Soft, nontender, nondistended, positive bowel sounds x4 Extremities: +2 pulses bilaterally radialis/ dorsalis pedis, no cyanosis, +2 pitting ankle edema bilaterally Neuro: Sleeping Psych: Unable to assess G/U: Positive Alcantara Skin: no rashes, warm and dry Lymphatic: no cervical or axillary lymphadenopathy Results & Data Results & Data Vital Signs (Past 12 Hours) Vital Signs Temp Pulse Pulse Resp BP BP Pulse Ox 12/19/24 10:24 12/19/24 07:27 69 12/19/24 07:25 36.7 C 66 18 133/68 99 12/19/24 03:14 36.7 C 62 16 113/64 99 12/19/24 00:17 37.1 C O2 Del Method O2 Flow Rate 12/19/24 10:24 Nasal Cannula 2 12/19/24 07:27 12/19/24 07:25 Nasal Cannula 2 12/19/24 03:14 Nasal Cannula 2 12/19/24 00:17 Laboratory Results 12/19/24 05:54 12/19/24 05:54 PG Care Time/CCT Total # of Minutes Spent Total Time Spent with Patient: Total time spent is greater than 50% in coordination of care (as documented) at patient's floor/unit and/or counseling patient: Coding Level of Care Code 55485 SUB INP/OBS CARE 3/50MIN Diagnoses Multifocal pneumonia J18.9 Acute respiratory failure with hypoxia J96.01 Pleural effusion J90 Autism F84.0 Diastolic dysfunction I51.89 Morbid obesity E66.01 Intellectual disability F79
[2024-12-19] MEDS: FUROSEMIDE INJ 20 MG/2 ML VIAL IV ONE ×2 (12:10→12:27)
[2024-12-19] MEDS: POTASSIUM CHLORIDE CRTAB 20 MEQ TABCR PO ONE ×2 (12:11→21:28)
[2024-12-20] MEDS ORDERED: VANCOMYCIN LEVEL ONE (03:00)
--- NOTE | 2024-12-20 07:25 | Hospitalist Progress Note ---
Date of Service December 20, 2024 Assessment & Plan (1) Sepsis: (2) Multifocal pneumonia: (3) Bilateral pleural effusion: (4) Acute respiratory failure with hypoxia: Plan: Ines Delatorre is a nonverbal 59y/o F from [facility] with PMHx significant for severe intellectual disability, autism, epilepsy, recurrent MDD, OCD, mood disorder, history of SIADH, CKD stage III, GERD, SNHL of both ears, lesion of right lobe of liver, fecal and urinary incontinence, left nephrolithiasis, excessive salvation and generalized OA s/p recent R hip joint injection at [facility] on 11/30/24 who is admitted under our service due to sepsis secondary to underlying multifocal PNA and complicated UTI in the setting of an obstructing proximal left ureteral stone with subsequent pyelonephritis. 12/15 CXR: Suspicious for right upper lobe infiltrate Negative nasal MRSA swab. Negative respiratory BioFire panel. Transitioned to IV Zosyn plus IV vancomycin on 12/16 due to persistent fevers. Continued to be febrile on 12/[address] was obtained. 12/[address]: Multifocal alveolar infiltrates in the RUL and to a lesser extent the RML, SURENDRA, and RLL c/w PNA. Small to moderate R pleural effusion and small L pleural effusion. C/f possible aspiration. No overt signs/symptoms of aspiration during ENGINEERING COORDINATOR evaluation. Continue easy to chew diet, aspiration precautions. Notably hypoxic and requiring supplemental O2 during her hospital stay as well. Unable to participate in ISP/FV therapy therefore Mucinex added on. Initial 08/21 blood cultures grew Staphylococcus hominis; suspect possible contaminant as repeat blood cultures done on 12/17 are without any evidence of growth. Appreciate ID consult to determine the significance of above regarding possible blood culture contaminant. Vancomycin discontinued on 12/18. Now on IV Zosyn and IV doxycycline. 12/19 TTE: LVEF = 55-60%, mild concentric LVH, grade I DD and trace TR. Reviewed repeat CXR this AM. R lung mainly mid and lower zone air space and peribronchial opacities reaching the related costophrenic angle with no total obliteration. Obliterated L costophrenic angle with underlying opacity of likely collapse. 1+ BLE edema on exam this morning therefore an additional 20mg IV Lasix was ordered. Total of 60mg IV Lasix administered so far this admission. Diuresing well; -8L fluid balance since 12/18. Wean O2 as able during the day. Patient desaturates during sleep. High probability of ALINA/OHS however patient would likely not be able to tolerate BiPAP or CPAP. Continue with O2 supplementation during sleep to keep saturation around 90-92%. Had some diarrhea; stool studies negative. Likely 2/2 ABX use. Continue daily probiotic. (5) Complicated UTI (urinary tract infection): (6) Hydronephrosis with obstructing calculus: Plan: Admitting CTAP: Newly noted L proximal ureteric stone measuring 6mm with mild backpressure changes. Now day #4 s/p cystoscopy with irrigation of bladder and Alcantara catheter placement, L ureteroscopy with stent placement and aspiration of the L kidney performed by Dr. Napoles. Procedural findings consistent with a severe obstruction of the L ureter stone impacted in stricture at the UPJ with severely purulent urine aspiration and irrigated from the L kidney. Initial UA suggestive of infection. Initial urine culture with Gardnerella-like bacilli. Urine from L kidney during above urologic procedure with no significant growth on final culture results. 12/18 Repeat CTAP: Resolution of the previously seen L hydronephrosis after placement of a L ureteral stent. Multiple bilateral renal calculi. Continue Alcantara catheter as directed by urology. On above ABX therapy. No further intervention warranted. Need to arrange outpatient urology follow- up to discuss definitive stone treatment. (7) Hypomagnesemia: Plan: Mag 1.4 this morning. K+ WNL. IV Mag x 3 bags ordered. Continue to monitor and replete PRN. (8) Anemia: Plan: Baseline Hgb ~11-13 per chart review. Hgb 10.7 on admission, now downtrended to 8.4; likely dilutional component contributing. Prior hematuria s/p above urologic procedure has resolved. Routine anemia panel checked. Iron 15, TIBC 195, transferrin 139 and ferritin 72.4; vit B12 and folate levels WNL. Started daily iron supplementation - continue. No indication to transfuse at this time given Hgb>7. Continue daily CBC monitoring. (9) Intellectual disability: (10) Restlessness and agitation: Plan: Admitting Head CT: No acute intracranial hemorrhage, midline shift or mass effect. Accentuated bilateral deep periventricular hypodensities likely microvascular ischemic changes. Newly noted diffuse cortical thickening of the skull more at the frontal bones. Lives at [facility] through [facility]. Had some agitation earlier this admission requiring BUE soft restraints which have since been removed. Agitation resolved. Per prior discussion with Rochelle, the nursing supervisor production managing at [facility], it is not uncommon for the patient to become acutely agitated in unf amiliar scenarios or after procedures. (11) Epilepsy: Plan: Follows with Dr. Ines Richardson of [facility] neurology. Continue home seizure medication regimen. Stable, well-controlled. Keppra and Lamictal levels pending. Other Chronic Medical Conditions: GERD - Continue Pepcid. Excessive Salvation - Continue glycopyrrolate. MDD/OCD/Tardive Dyskinesia - Stable on current psychiatric medication regimen, continue. Follows with psychiatry at [facility]. DVT Prophylaxis: SQ Lovenox Code Status: FULL CODE PCP: Josh Holman MD Disposition: Discharge plans uncertain at this time. Appreciate PT/OT evals. Plan for return back to [facility] when medically stable. Medical proxy is Mary Munoz @ [phone]. Mary is a distant aunt and lives in [place]. She is her only living relative. Nursing supervisor production managing at [facility] is Rochelle @ [phone]. Plan to call and update Rochelle later this afternoon. Patient seen in collaboration with Dr. Vale. Please see addendum. I spent a total of 56 minutes coordinating, documenting, and providing care for this patient excluding time spent in the performance of separately billed services or time spent by another provider/QHP. This included personally reviewing all current laboratories and imaging studies, medical reconciliation, outpatient chart review and discussion with specialists. This chart was completed in part utilizing Speech Voice Recognition Software. Grammatical errors, random word insertions, pronoun errors, and incomplete sentences are an occasional consequence of this system due to software limitations, ambient noise, and hardware issues. Any formal questions or concerns about the content, text, or information contained within the body of this dictation should be directly addressed to the provider for clarification. Admission and Anticipated Discharge Date Admission Date: December 15, 2024 Supervising Physician Co-Signing Physician Notes Attending Addendum: Case reviewed with the advanced practitioner. I have reviewed the advanced practitioner's documentation on the date of service referenced in note, and I agree with, and take responsibility for the plan of care. please refer to her notes for full details patient seen and examined, records reviewed by myself as well diagnoses and plan of care as per advanced practitioner's notes I spent a total of 20 minutes coordinating, documenting, and providing care for this patient, excluding time spent in the performance of separately billed services or time spent by another provider/QHP. Brian Vale MD Subjective Patient seen and examined in room N282-1. History of severe intellectual disabi lity. Nonverbal at baseline. Awakens with verbal stimuli and makes eye contact. Appears comfortable and calm. Restraints have been removed. Has remained afebrile since 12/19/24. Has been taking her medications in pudding. Review of Systems Review of Systems: Unobtainable due to patient's cognitive status. Physical Exam Physical Exam: General/Neurologic: Middle-aged, F. Sitting up in bed. Nonverbal at baseline. Known severe intellectual disability. Makes eye contact with conversation. Appears comfortable and calm. Watched her take sips of her water and there was no evidence of presley aspiration. Respiratory: On 2L NC and saturating in the mid 90s. Lung sounds diminished throughout. Unable to participate with deep inspiration. Normal respiratory eff ort. Cardiovascular: Tachycardic rate, regular rhythm. No murmur. 1+ BLE edema. Abdomen/GI: Normal bowel sounds, soft, nondistended, nontender to palpation in all quadrants. : Alcantara catheter intact and draining clear, yellow urine. Hematuria resolved. Extremities/MSK: No cyanosis or clubbing. Unable to perform extremity strength testing due to patient's cognitive status. Results & Data Results & Data Vital Signs (Past 12 Hours) Vital Signs Temp Pulse Pulse Resp BP BP Pulse Ox 12/20/24 05:29 76 12/20/24 03:35 37.5 C 79 18 142/77 H 96 12/19/24 23:24 37.1 C 74 18 103/50 L 95 12/19/24 22:00 96 H 12/19/24 21:20 12/19/24 19:42 37.4 C 81 20 145/76 H 95 O2 Del Method O2 Flow Rate 12/20/24 05:29 12/20/24 03:35 Room Air 12/19/24 23:24 Nasal Cannula 2 12/19/24 22:00 12/19/24 21:20 Nasal Cannula 2 12/19/24 19:42 Nasal Cannula 2 Laboratory Results Short CBC 12/20/24 Range/Units 07:53 WBC 12.19 H (4.8-10.8) K/ul Hgb 8.4 L (12.0-16.0) g/dl Hct 25.4 L (37.0-47.0) % Plt Count 281 (130-400) K/uL BMP 12/20/24 07:53 Sodium 137 Potassium 4.3 D Chloride 103 Carbon Dioxide 31 BUN 9 Creatinine 0.62 Glucose 97 Calcium 7.9 L (1) Sepsis Sepsis acute organ dysfunction status: unspecified Sepsis type: sepsis due to unspecified organism Qualified Code(s): A41.9 - Sepsis, unspecified organism (8) Anemia Anemia type: unspecified type Qualified Code(s): D64.9 - Anemia, unspecified (11) Epilepsy Epilepsy type: unspecified Intractability: not intractable Status epilepticus: without status epilepticus Qualified Code(s): G40.909 - Epilepsy, unspecified, not intractable, without status epilepticus
--- NOTE | 2024-12-20 07:30 | XRay Report ---
EXAM: XR chest 1V portable CLINICAL HISTORY: Recheck pleural effusions, infiltrate. TECHNIQUE: X-ray images of the chest were obtained in posteroanterior AP projection. COMPARISON: comparison made with previous CT dated 12/15/2024. CT dated 12/18/2024 reviewed. FINDINGS: Pulmonary Parenchyma: Right lung mainly mid and lower zone air space and peribronchial opacities reaching the related costophrenic angle with no total obliteration. Obliterated left costophrenic angle with underlying opacity of likely collapse. Heart and Mediastinum: Apparent cardiomegaly. Bony Thorax: Bony thorax appears intact without fractures or deformities. Soft Tissues: Soft tissues overlying the chest wall are unremarkable. IMPRESSION: 1. Progressive course regarding Right lung mid and lower zonal infiltration and Left-sided pleural effusion with underlying atelectasis. 2. Clinical lab correlation and follow-up is advised. Electronically signed by Evangelist Delatorre 12-20-2024 07:29 AM
[2024-12-20 08:35] LABS: Basophils # (auto) 0.02 K/uL (0.00-0.20); Basophils % (auto) 0.2 %; Eosinophils # (auto) 0.19 K/uL (0.00-0.50); Eosinophils % (auto) 1.6 %; Hematocrit (blood only) 25.4 % (37.0-47.0); Hemoglobin 8.4 g/dl (12.0-16.0); Immature Granulocytes # (auto) 0.22 K/uL (0.01-0.20); Immature Granulocytes % (auto) 1.8 %; Lymphocytes # (auto) 2.19 K/uL (1.20-3.40); Mean Corpuscular Hemoglobin 28.8 pg (25.0-34.0); Mean Corpuscular Hgb Conc 33.1 g/dL (32.0-36.0); Mean Platelet Volume 10.7 fL (9.4-12.4); Monocytes # (auto) 1.21 K/uL (0.11-0.59); Monocytes % (auto) 9.9 %; Neutrophils # (auto) 8.36 K/uL (1.40-6.50); Neutrophils % (auto) 68.5 %; Platelet Count 281 K/uL (130-400); RDW Standard Deviation 41.4 fL (36.4-46.3); Red Blood Count 2.92 M/uL (4.20-5.40); White Blood Count 12.19 K/ul (4.8-10.8)
[2024-12-20 08:58] LABS: Calcium 7.9 mg/dl (8.6-10.3); Magnesium 1.4 mg/dl (1.7-2.4); Potassium 4.3 mmol/L (3.5-5.1)
[2024-12-20 09:04] LABS: BUN Creatinine Ratio 14.5 (10-20); Creatinine Clr Calc Pharmacy 98.1 ml/min
[2024-12-20] MEDS: POTASSIUM CHLORIDE CRTAB 20 MEQ TABCR PO ONE (09:21)
[2024-12-20] MEDS: FUROSEMIDE INJ 20 MG/2 ML VIAL IV ONE (11:43)
[2024-12-20] MEDS: MAGNESIUM SULFATE / D5W 1 GM/100 ML BAG IV SCH (13:57)
--- NOTE | 2024-12-20 14:58 | Infectious Disease Consult ---
Date of Service December 20, 2024 Telehealth Information I performed this visit using a real-time telehealth connection between my location and the patients location ([facility]). After connecting through interactive tele-video, patient was identified by name and date of and/or wristband check.Patient (or authorized healthcare graphic art sales representative) was informed that this was a telemedicine visit and it was being conducted confidentially over secure lines. My office door was closed and no one else was present in the room with me.Patient (or authorized healthcare graphic art sales representative) provided consent to proceed with the visit, expressed an understanding of privacy and security of the telemedicine visit, and gave permission to have a hospital graphic art sales representative in the room in order to assist with the visit and to conduct portions of the visit, as needed. I informed the patient (or authorized healthcare graphic art sales representative) that I reviewed their record and presented the opportunity for them to ask any questions regarding the visit today. The patient agreed to participate. Assessment & Plan (1) Complicated UTI (urinary tract infection): Plan: Suspected acute pyelonephritis w/ obstructive uropathy U cx w/ Gardnerella-like bacilli Staph hominis 12/16/24 - cystoscopy w/ L ureteral stent placement - Stop doxycycline - May continue zosyn to complete total 10 days of abx therapy from 12/15/24 to 12/24/24. It is difficult to provide an option for abx de-escalation for this patient given negative urine culture and when there is no information on prior urine cultures. It is possible that the urine culture did not grow anything as the patient was started on abx before obtaining urine sample for culture. The patient is clinically improving after being febrile for several days. I recommend to complete the rest of abx therapy w/ zosyn. During this patient encounter, one or more of the following was provided in addition to my in person visit: disease transmission risk assessment and mitigation; public health investigation, analysis, and testing; and/or complex antimicrobial therapy counseling and treatment. I spent a total of 81 minutes coordinating, documenting, and providing care for this patient excluding time spent in the performance of separately billed services or time spent by another provider/QHP. History of Present Illness History of Present Illness This is a 59 y/o female from [facility] w/ hx of intellectual disability, autism, epilepsy, multiple psychiatric issues, CKD III, SIADH, SNHL of both ears, generalized OA, and urinary incontinence w/ L nephrolithiasis, who presented to [facility] on 12/15 w/ fever and lethargy w/ concerns for RUL PNA and complicated UTI w/ obstructing proximal L ureteral stone. Found to have leukocytosis w/ CXR showing infiltrates in R worse than L w/ pleural effusion. Blood cultures showed Staph hominis (1 of 4). The patient had cystoscopy w/ L ureteral stent placement (12/16/24: a severe obstruction of L ureter stone impacted in stricture at the UPJ w/ severly purulent urine). Remained febrile till 12/18. Patient is nonverbal at baseline, unable to have conversation due to severe intellectual disability. Allergies Allergy/AdvReac Type Severity Reaction Status Date / Time NSAIDS (Non-Steroidal Allergy Intermediate Unverified 11/25/24 13:06 Anti-Inflamma naproxen Allergy Unknown Unknown Verified 02/11/21 18:30 Home Medications Medication Instructions Recorded Confirmed Type acetaminophen 500 mg tablet 1,000 mg PO Q4H PRN Headache/Pain 12/15/24 12/15/24 History acetaminophen 500 mg tablet 500 mg PO QAM 12/15/24 12/15/24 History aloe vera 1 applic topical Q1H PRN Sunburn 12/15/24 12/15/24 History aluminum-mag hydroxide-simethicone 10 ml PO DIRECTED PRN 12/15/24 12/15/24 History 400 mg-400 mg-40 mg/5 mL oral susp Indigestion (Maalox Maximum Strength) bisacodyl 5 mg tablet,delayed 10 mg PO Q3D PRN Constipation 12/15/24 12/15/24 History release calcium 500 mg (as 1 tab PO QAM 12/15/24 12/15/24 History carbonate)-vitamin D3 5 mcg (200 unit) tablet chlorhexidine gluconate 0.12 % 1 applic buccal TID 12/15/24 12/15/24 History mouthwash clobazam 10 mg tablet 5 mg PO HS 12/15/24 12/15/24 History deutetrabenazine 36 mg 36 mg PO DAILY 12/15/24 12/15/24 History tablet,extended release 24 hr (Austedo XR) dextromethorphan-guaifenesin 20 10 ml PO Q4H PRN Cough 12/15/24 12/15/24 History mg-400 mg/5 mL oral liquid docusate sodium 100 mg capsule 100 mg PO BID 12/15/24 12/15/24 History famotidine 40 mg tablet 40 mg PO DAILY 12/15/24 12/15/24 History fluoride (sodium) 1.1 % dental 1 applic dental DAILY 12/15/24 12/15/24 History cream (Sodium Fluoride 5000 Plus) glycopyrrolate 1 mg tablet 1 mg PO TID 12/15/24 12/15/24 History hydrocortisone 1 % topical cream 1 applic topical TID PRN Rash 12/15/24 12/15/24 History lamotrigine 100 mg tablet 50 mg PO BID 12/15/24 12/15/24 History lamotrigine 200 mg tablet 200 mg PO BID 12/15/24 12/15/24 History levetiracetam 1,000 mg tablet 1,000 mg PO BID 12/15/24 12/15/24 History levetiracetam 500 mg tablet 500 mg PO BID 12/15/24 12/15/24 History loperamide 2 mg capsule 2 mg PO DIRECTED PRN Loose Stool 12/15/24 12/15/24 History multivitamin 1 tab PO QAM 12/15/24 12/15/24 History perphenazine 2 mg tablet 2 mg PO BID 12/15/24 12/15/24 History perphenazine 4 mg tablet 4 mg PO HS 12/15/24 12/15/24 History phenylephrine HCl 10 mg tablet 10 mg PO Q4H PRN Colds/Runny Nose 12/15/24 12/15/24 History phosphorated carbohydrate oral 30 ml PO DIRECTED PRN Nausea 12/15/24 12/15/24 History solution (Emetrol oral solution) polyethylene glycol 3350 17 17 g PO DAILY 12/15/24 12/15/24 History gram/dose oral powder quetiapine 200 mg tablet 200 mg PO HS 12/15/24 12/15/24 History quetiapine 50 mg tablet 50 mg PO QAM 12/15/24 12/15/24 History sertraline 100 mg tablet 100 mg PO QAM 12/15/24 12/15/24 History Patient History Medical History Traumatic wound Acute and chronic respiratory failure with hypercapnia Obesity hypoventilation syndrome Diastolic dysfunction Hypothyroidism Shortness of breath Cough Hypoxia RSV (respiratory syncytial virus infection) Cervical mass Morbid obesity Bilateral lower leg cellulitis Acute respiratory failure with hypoxia and hypercarbia Reactive airway disease Acute respiratory failure with hypoxia and hypercapnia Acute respiratory failure with hypercapnia Hypercapnia resolved Hypoxia resolved Impacted cerumen of both ears Sensorineural hearing loss (SNHL) of both ears History of kidney disease Stage 3 Dementia Depression Eating disorder Postmenopausal status Primary hypothyroidism Down syndrome Hypertension Hypercholesteremia Somnolence Sialoadenitis, unspecified Polypharmacy Fall Acute head injury MR (mental retardation) Post-menopausal Pharyngoesophageal dysphagia Osteoarthritis Obesity Mood disorder Chronic kidney disease, stage 3 Hearing loss Hallucinations Hx of esophagitis Dry eyes Degenerative disc disease, lumbar Constipation Bursitis unilateral hip, unsure which side Asthma Arthritis GERD (gastroesophageal reflux disease) Cataracts, bilateral Sleep apnea no current device, getting tested again in 09/2023 Depression Hx of breast lump Intellectual disability Surgical History No significant past surgical history Surgical history unknown Social History Smoking Status: Unknown if ever smoked Hx Alcohol Use: No Hx Substance Use: No Preferred Language: [place] Communication Ability: Unable Communication Ability Comment: pt. nonverbal, sometimes cooperates with waitstaff captain Required: No marital status: Single Current Living Situation: Personal Care Facility Current Living Situation Comment: the [facility] current occupational status: disabled Other Information That Helps Us Care for You: No Feels Safe at Home: Declines to Answer Assistive Devices: Walker and Wheelchair Review of Systems as HPI Patient is nonverbal at baseline, unable to have conversation due to severe intellectual disability. Physical Exam Gen: does not appear to be in distress Lungs: breathing comfortably on 1.5 liter O2 via NC Alcantara w/ clear urine Results & Data Vital Signs (Past 12 Hours) Vital Signs Temp Pulse Pulse Pulse Resp BP Pulse Ox 12/20/24 11:26 36.7 C 70 20 118/72 97 12/20/24 10:04 12/20/24 07:25 37.0 C 74 18 112/66 96 12/20/24 05:29 76 12/20/24 03:35 37.5 C 79 18 142/77 H 96 O2 Del Method O2 Flow Rate 12/20/24 11:26 Nasal Cannula 1.5 12/20/24 10:04 Nasal Cannula 2 12/20/24 07:25 Nasal Cannula 2 12/20/24 05:29 12/20/24 03:35 Room Air Laboratory Results WBC 12.19K H 8.4 Plt 281K Cr 0.62 UA (12/15): 3+ LE, >50 WBC, 3+ bacteria U cx (12/15): Gardnerella-like bacilli Blood cx (12/15): Staph hominis (1 of : contaminant) U cx (12/16): NG Blood cx (12/17): NGTD
[2024-12-21] MEDS: PIPERACILLIN/TAZOBACTAM 4.5 GM/100 ML BAG IV SCH (03:55)
[2024-12-21 06:40] LABS: Basophils # (auto) 0.04 K/uL (0.00-0.20); Basophils % (auto) 0.3 %; Eosinophils % (auto) 1.4 %; Hematocrit (blood only) 26.7 % (37.0-47.0); Immature Granulocytes # (auto) 0.19 K/uL (0.01-0.20); Immature Granulocytes % (auto) 1.3 %; Lymphocytes # (auto) 2.35 K/uL (1.20-3.40); Lymphocytes % (auto) 16.3 %; Mean Corpuscular Hemoglobin 29.1 pg (25.0-34.0); Mean Corpuscular Hgb Conc 33.7 g/dL (32.0-36.0); Mean Corpuscular Volume 86.4 fL (80.0-100.0); Monocytes # (auto) 1.11 K/uL (0.11-0.59); Monocytes % (auto) 7.7 %; Neutrophils # (auto) 10.52 K/uL (1.40-6.50); Platelet Count 325 K/uL (130-400); RDW Coefficient of Variation 13.1 % (11.5-14.5); RDW Standard Deviation 40.9 fL (36.4-46.3); Red Blood Count 3.09 M/uL (4.20-5.40); White Blood Count 14.41 K/ul (4.8-10.8)
[2024-12-21 07:04] LABS: Creatinine Clr Calc Pharmacy 98.8 ml/min; Potassium 4.6 mmol/L (3.5-5.1)
--- NOTE | 2024-12-21 07:23 | Hospitalist Progress Note ---
Date of Service December 21, 2024 Assessment & Plan (1) Sepsis: (2) Multifocal pneumonia: (3) Bilateral pleural effusion: (4) Acute respiratory failure with hypoxia: Plan: Ines Delatorre is a nonverbal 59y/o F from [facility] with PMHx significant for severe intellectual disability, autism, epilepsy, recurrent MDD, OCD, mood disorder, history of SIADH, CKD stage III, GERD, SNHL of both ears, lesion of right lobe of liver, fecal and urinary incontinence, left nephrolithiasis, excessive salvation and generalized OA s/p recent R hip joint injection at [facility] on 11/30/24 who is admitted under our service due to sepsis secondary to underlying multifocal PNA and complicated UTI in the setting of an obstructing proximal left ureteral stone with subsequent pyelonephritis. 12/15 CXR: Suspicious for RUL infiltrate. Negative nasal MRSA swab. Negative respiratory BioFire panel. Transitioned to IV Zosyn plus IV vancomycin on 12/16 due to persistent fevers. Continued to be febrile on 12/[address] was obtained. 12/[address]: Multifocal alveolar infiltrates in the RUL and to a lesser extent the RML, SURENDRA, and RLL c/w PNA. Small to moderate R pleural effusion and small L pleural effusion. 12/19 TTE: LVEF = 55-60%, mild concentric LVH, grade I DD and trace TR. 12/20 Repeat CXR: R lung mainly mid and lower zone air space and peribronchial opacities. Obliterated L costophrenic angle with underlying opacity of likely collapse. C/f possible aspiration. No overt signs/symptoms of aspiration during HEMATOLOGY SPECIALIST evaluation. Continue easy to chew diet, aspiration precautions. Notably hypoxic and requiring supplemental O2 during her hospital stay. Has been removing her NC 2/2 agitation as per below and desaturated down into the 70s SpO2 on RA therefore chest CTA was obtained on 12/21. 12/21 BLE Venous Doppler US: No evidence of DVT within the BLE. 12/21 Chest CTA: No evidence of PE. CHF with bilateral pleural effusions (R>L). Stable scattered patchy opacities throughout the R lung and a small area of the SURENDRA. Initial 08/21 blood cultures grew Staphylococcus hominis; suspect possible contaminant as repeat blood cultures done on 12/17 are without any evidence of growth. Vancomycin discontinued on 12/18. Reviewed ID consult. Doxycycline stopped on 12/20. Continue IV Zosyn to complete full 10-day course from 12/15-12/24. 12/21: S/p 60mg IV Lasix so far this admission. Trace BLE edema on exam this morning (improving). No increased O2 requirement; saturating in the low to mid 90s on 2L NC. Attempt to wean as tolerated. Hold off on any further diuresis for now due to hypotension. Will need follow-up chest CT in 3 months to ensure resolution of above findings. Unable to participate in ISP/FV therapy therefore Mucinex BID ordered. Will trial BID hypertonic nebs and Q4H Atrovent/Xopenex nebs for airway clearance as she tolerates. Repeat CXR on 12/23 to monitor for any improvement. Fever of 38.3C this morning with uptrending leukocytosis; will repeat UA again. Continue Tylenol PRN. (5) Complicated UTI (urinary tract infection): (6) Hydronephrosis with obstructing calculus: Plan: Admitting CTAP: Newly noted L proximal ureteric stone measuring 6mm with mild backpressure changes. Day #5 s/p cystoscopy with irrigation of bladder and Alcantara catheter placement, L ureteroscopy with stent placement and aspiration of the L kidney performed by Dr. Napoles. Procedural findings consistent with a severe obstruction of the L ureter stone impacted in stricture at the UPJ with severely purulent urine aspiration and irrigated from the L kidney. Initial UA suggestive of infection. Initial urine culture with Gardnerella-like bacilli. Urine from L kidney during above urologic procedure with no significant growth on final culture results. 12/18 Repeat CTAP: Resolution of the previously seen L hydronephrosis after placement of a L ureteral stent. Multiple bilateral renal calculi. Continue Alcantara catheter as directed by urology. On above ABX therapy; repeat UA as per above 2/2 recurrent fever. No further intervention warranted. Need to arrange outpatient urology follow- up to discuss definitive stone treatment. (7) Anemia: Plan: Baseline Hgb ~11-13 per chart review. Hgb 10.7 on admission, downtrended to 8.4 on 12/20; likely dilutional component contributing. Prior hematuria s/p above urologic procedure has resolved. Anemia panel ordered. Iron 15, TIBC 195, transferrin 139 and ferritin 72.4; vit B12 and folate levels WNL. Started on daily iron supplement. 5/6: Reports of hematochezia overnight per RN. FOBT negative last evening. Will repeat today given evidence of blood-tinged streaking in BM this morning. Suspect due to irritation of known internal hemorrhoids. Hgb slowly improving to 9 today; no indication to transfuse at this time given Hgb>7. Continue daily CBC monitoring. (8) Intellectual disability: (9) Restlessness and agitation: Plan: Admitting Head CT: No acute intracranial hemorrhage, midline shift or mass effect. Accentuated bilateral deep periventricular hypodensities likely microvascular ischemic changes. Newly noted diffuse cortical thickening of the skull more at the frontal bones. [facility] through [facility]. Per prior discussion with Rochelle, the nursing teaching supervisor at [facility], it is not uncommon for the patient to become acutely agitated in unfamiliar scenarios or after procedures. Requiring application of soft mitts on both heads again today 2/2 repeatedly pulling off NC. (10) Nocturnal hypoxia: Plan: Desaturates during sleep. High probability of ALINA/OHS however patient would likely not be able to tolerate BiPAP or CPAP. Continue with O2 supplementation during sleep to keep saturation around 90-92%. (11) Hypocalcemia: Plan: Hypocalcemia 2/2 hypovitaminosis D. Started on vitamin D supplement. Monitor daily BMP. (12) Epilepsy: Plan: Follows with Dr. Ines Richardson of [facility] neurology. Continue home seizure medication regimen. Stable, well-controlled. Keppra and Lamictal levels pending. Other Chronic Medical Conditions: GERD - Continue Pepcid. Excessive Salvation - Continue glycopyrrolate. MDD/OCD/Tardive Dyskinesia - Stable on current psychiatric medication regimen, continue. Follows with psychiatry at [facility]. DVT Prophylaxis: SQ Lovenox Code Status: FULL CODE PCP: Josh Holman MD Disposition: Discharge plans uncertain at this time. Appreciate PT/OT evals. Plan for return back to jail when medically stable. Medical proxy is Mary Munoz @ [phone]. Mary is a distant aunt and lives in [place]. She is her only living relative. Nursing teaching supervisor at [facility] is Rochelle @ [phone]. Called and updated Rochelle this morning regarding the above plans of care. Patient seen in collaboration with Dr. Vale. Please see addendum. I spent a total of 64 minutes coordinating, documenting, and providing care for this patient excluding time spent in the performance of separately billed services or time spent by another provider/QHP. This included personally reviewing all current laboratories and imaging studies, medical reconciliation, outpatient chart review and discussion with specialists. This chart was completed in part utilizing Speech Voice Recognition Software. Grammatical errors, random word insertions, pronoun errors, and incomplete sentences are an occasional consequence of this system due to software limitations, ambient noise, and hardware issues. Any formal questions or concerns about the content, text, or information contained within the body of this dictation should be directly addressed to the provider for clarification. Admission and Anticipated Discharge Date Admission Date: December 15, 2024 Supervising Physician Co-Signing Physician Notes Case reviewed with the advanced practitioner. I have reviewed the advanced practitioner's documentation on the date of service referenced in note, and I agree with, and take responsibility for the plan of care. please refer to her notes for full details patient seen and examined, records reviewed by myself as well diagnoses and plan of care as per advanced practitioner's notes I spent a total of 20 minutes coordinating, documenting, and providing care for this patient, excluding time spent in the performance of separately billed services or time spent by another provider/QHP. Brian Vale MD Subjective Patient seen and examined in room N282-1. Nonverbal at bedside. Severe intellectual disability. Notable agitation this morning per discussion with RN. Repeatedly was pulling off her NC and would desaturate down into the 70s on RA. Now requiring application of soft mitten restraints once again. Did check FOBT yesterday 2/2 blood-tinged stool however this was NEGATIVE. Had another BM overnight which again was blood-tinged. Will repeat FOBT however Hgb improving this morning. Did have a fever this morning of 38.3C as per RN. Lab work this morning also revealed an uptrend in her WBC count. Currently on IV Zosyn per recommendation of ID. Review of Systems Review of Systems: Unobtainable due to patient's cognitive status. Nonverbal at baseline. Physical Exam Physical Exam: General/Neurologic: Middle-aged, F. Laying down in bed. Nonverbal at baseline. Known severe intellectual disability. Not really awakening with conversation; opens eyes partially. Has soft mitten restraints on both hands 2/2 agitation and pulling out her NC. Respiratory: On 2L NC and saturating in the low 90s. Lung sounds diminished throughout. Unable to participate with deep inspiration. Normal respiratory effort. Cardiovascular: Tachycardic rate, regular rhythm. No murmur. Trace BLE edema. Abdomen/GI: Normal bowel sounds, soft, nondistended, nontender to palpation in all quadrants. : Alcantara catheter intact and draining clear, yellow urine. Hematuria resolved. Extremities/MSK: No cyanosis or clubbing. Unable to perform extremity strength testing due to patient's cognitive status. Results & Data Results & Data Vital Signs (Past 12 Hours) Vital Signs Temp Pulse Pulse Resp BP Pulse Ox O2 Del Method 12/21/24 03:31 36.7 C 74 16 129/69 92 Room Air 12/20/24 23:23 36.9 C 76 18 126/70 97 Room Air 12/20/24 22:03 88 12/20/24 20:00 Room Air 12/20/24 19:36 37.1 C 83 16 124/72 92 Room Air Laboratory Results Short CBC 12/20/24 12/21/24 Range/Units 07:53 06:23 WBC 12.19 H 14.41 H (4.8-10.8) K/ul Hgb 8.4 L 9.0 L (12.0-16.0) g/dl Hct 25.4 L 26.7 L (37.0-47.0) % Plt Count 281 325 (130-400) K/uL BMP 12/20/24 12/21/24 07:53 06:23 Sodium 137 135 L Potassium 4.3 D 4.6 Chloride 103 98 Carbon Dioxide 31 33 H BUN 9 9 Creatinine 0.62 0.60 Glucose 97 100 H Calcium 7.9 L 8.0 L (1) Sepsis Sepsis acute organ dysfunction status: unspecified Sepsis type: sepsis due to unspecified organism Qualified Code(s): A41.9 - Sepsis, unspecified organism (7) Anemia Anemia type: unspecified type Qualified Code(s): D64.9 - Anemia, unspecified (12) Epilepsy Epilepsy type: unspecified Intractability: not intractable Status epilepticus: without status epilepticus Qualified Code(s): G40.909 - Epilepsy, unspecified, not intractable, without status epilepticus
[2024-12-21] MEDS: OPTIRAY 320 125ml IV ONE (08:59)
--- NOTE | 2024-12-21 09:28 | CT Scan Report ---
CT angio chest PE protocol CT DOSE: 606.02 mGy.cm HISTORY: PE. TECHNIQUE: Multiple CTA images of the chest were obtained after the intravenous administration of 70 ml Optiray. Coronal and sagittal MIPS were obtained from the axial data set and were submitted for r eview. All measurements were obtained according to NASCET criteria. A dose lowering technique was ut ilized adhering to the principles of ALARA. COMPARISON STUDY: 12/18/2024 FINDINGS: There is motion artifact due to difficulty breath holding. There are bilateral pleural effu sions, moderate on the right and small on the left, mildly increased in size. There is mild to modera te adjacent compressive atelectasis at the lower lung lobes. There are stable scattered patchy opacit ies throughout the right lung and a small area of the left upper lobe, pneumonia versus pulmonary vivien ma. No pneumothorax. There is a 2 cm oval density posterior lateral to the lower trachea which could represent enlarged lymph node, or summation artifact from the azygos vein and esophagus. No other enl arged adenopathy. No pericardial effusion. There are mitral valvular calcifications. No thoracic aort ic dissection or aneurysm. Evaluation of the tiny distal subsegmental pulmonary arteries is limited. No pulmonary embolism seen otherwise. There are mild thoracic spine degenerative changes. IMPRESSION: 1. No pulmonary embolism seen. 2. CHF with bilateral pleural effusions. 3. Pneumonia versus pulmonary edema. 4. Otherwise as described. Follow-up chest CT suggested in 3 months to make sure that these findings resolve. ACT 112: Negative or not required by law. The above report was generated using voice recognition software. It may contain grammatical, syntax o r spelling errors. Electronically signed by: Filiberto Smith M.D. 12/21/2024 9:26 AM
--- NOTE | 2024-12-21 09:39 | Ultrasound Report ---
BILATERAL LOWER EXTREMITY VENOUS DOPPLER CLINICAL HISTORY: BLE edema, r/o DVT COMPARISON STUDY: Left lower extremity venous Doppler ultrasound April 03, 2023. TECHNIQUE: Sonography of the deep venous system of the bilateral lower extremities was performed. Co mpression and augmentation were evaluated. FINDINGS: The bilateral common femoral, superficial femoral and popliteal veins were compressible. A ugmentation was normal. Flow was shown within the deep calf vessels. IMPRESSION: No evidence of deep venous thrombus within the bilateral lower extremities. ACT 112: Negative or not required by law. Electronically signed by: Henry Ayala M.D. 12/21/2024 9:38 AM
[2024-12-21 10:14] LABS: Appearance Urine Clear (Clear); Bacteria Urine Automated None Seen (None Seen); Bilirubin Urine Negative (Negative); Blood Urine 2+ (Negative); Color Urine Yellow; Epithelial Cell Urine Auto 0-2 /hpf (0-2); Glucose Urine UA Negative (Negative); Ketones Urine Negative (Negative); Leukocyte Esterase Urine 2+ (Negative); Nitrite Urine Negative (Negative); Protein Urine Trace (Negative); RBC Urine Automated >20 /hpf (0-2); Specific Gravity Urine 1.038 (1.000-1.030); Urobilinogen Urine Negative (Negative)
[2024-12-21] MEDS: IPRATROPIUM BROMIDE NEB SOLN 0.02% 0.5MG/2.5ML VIAL NEB SCH (10:51)
[2024-12-21] MEDS: LEVALBUTEROL HCL 0.63 MG/3 ML NEB NEB SCH (10:51)
[2024-12-21] MEDS: CHOLECALCIFEROL 125 MCG (5,000 UNITS) TAB PO SCH (11:25)
[2024-12-21] MEDS: SODIUM CHLOR 7% 4 ML NEB NEB SCH (19:42)
[2024-12-21] MEDS: guaiFENesin 600 MG TABCR PO SCH (20:28)
--- NOTE | 2024-12-21 21:07 | Communication Note ---
Date of Service: December 21, 2024 9 PM Patient still with brownish-red stool, does not seem to be in pain as per RN. AP Painless LGIB Recheck C. difficile Hold Lovenox for now, resume if H&H stable. 1145 PM Notified by RN of abnormal levetiracetam level result from 12/16 = 78 (Routine reference test sent out to [facility]) AP Supratherapeutic levetiracetam level Hold Keppra for now Recheck Keppra level with a.m. lab work and send out to [facility] lab (Same day turnaround as per laboratory asst.)
[2024-12-21 21:37] LABS: Hematocrit (blood only) 26.6 % (37.0-47.0); Hemoglobin 8.8 g/dl (12.0-16.0)
[2024-12-21 23:36] LABS: Lamictal(Lamotrigine) 13.1 mcg/mL (2.5-15.0); Levetiracetam Keppra 78.8 mcg/mL (6.0-46.0)
[2024-12-22] MEDS: ALBUMIN 25% 12.5 GM/50 ML VIAL IV ONE (05:48)
[2024-12-22] MEDS: FUROSEMIDE INJ 20 MG/2 ML VIAL IV ONE (05:49)
[2024-12-22 06:00] LABS: Hematocrit (blood only) 24.1 % (37.0-47.0); Mean Corpuscular Hgb Conc 33.2 g/dL (32.0-36.0); Mean Corpuscular Volume 87.3 fL (80.0-100.0); Mean Platelet Volume 9.9 fL (9.4-12.4); Platelet Count 334 K/uL (130-400); RDW Coefficient of Variation 13.4 % (11.5-14.5); RDW Standard Deviation 41.9 fL (36.4-46.3); Red Blood Count 2.76 M/uL (4.20-5.40); White Blood Count 10.86 K/ul (4.8-10.8)
[2024-12-22 06:17] LABS: BUN Creatinine Ratio 12.3 (10-20); Calcium 7.9 mg/dl (8.6-10.3); Magnesium 1.8 mg/dl (1.7-2.4); Potassium 4.3 mmol/L (3.5-5.1)
--- NOTE | 2024-12-22 07:04 | Hospitalist Progress Note ---
Date of Service December 22, 2024 Assessment & Plan (1) Sepsis: (2) Multifocal pneumonia: (3) Bilateral pleural effusion: (4) Acute respiratory failure with hypoxia: Plan: Ines Delatorre is a nonverbal 59y/o F from [facility] with PMHx significant for severe intellectual disability, autism, epilepsy, recurrent MDD, OCD, mood disorder, history of SIADH, CKD stage III, GERD, SNHL of both ears, lesion of right lobe of liver, fecal and urinary incontinence, left nephrolithiasis, excessive salvation and generalized OA s/p recent R hip joint injection at [facility] on 11/30/24 who is admitted under our service due to sepsis secondary to underlying multifocal PNA and complicated UTI in the setting of an obstructing proximal left ureteral stone with subsequent pyelonephritis. 12/15 CXR: Suspicious for RUL infiltrate. Negative nasal MRSA swab. Negative respiratory BioFire panel. Transitioned to IV Zosyn plus IV vancomycin on 12/16 due to persistent fevers. Continued to be febrile on 12/[address] was obtained. 12/[address]: Multifocal alveolar infiltrates in the RUL and to a lesser extent the RML, SURENDRA, and RLL c/w PNA. Small to moderate R pleural effusion and small L pleural effusion. 12/19 TTE: LVEF = 55-60%, mild concentric LVH, grade I DD and trace TR. 12/20 Repeat CXR: R lung mainly mid and lower zone air space and peribronchial opacities. Obliterated L costophrenic angle with underlying opacity of likely collapse. C/f possible aspiration. No overt signs/symptoms of aspiration during [employer] evaluation. Continue easy to chew diet, aspiration precautions. Notably hypoxic and requiring supplemental O2 during her hospital stay. Has been removing her NC 2/2 agitation as per below and desaturated down into the 70s SpO2 on RA therefore chest CTA was obtained on 12/21. 12/21 BLE Venous Doppler US: No evidence of DVT within the BLE. 12/21 Chest CTA: No evidence of PE. CHF with bilateral pleural effusions (R>L). Stable scattered patchy opacities throughout the R lung and a small area of the SURENDRA. Initial 08/21 blood cultures grew Staphylococcus hominis; suspect possible contaminant as repeat blood cultures done on 12/17 are without any evidence of growth. Vancomycin discontinued on 12/18. Reviewed ID consult. Doxycycline stopped on 12/20. Continue IV Zosyn to complete full 10-day course from 12/15-12/24. 12/21: Recurrent fever in AM. Repeat UA obtained. Repeat urine culture with no significant growth. No recurrent fevers since yesterday AM. 1+ BLE edema on exam this morning. No increased O2 requirement; saturating in the low to mid 90s on 2L NC. Attempt to wean as tolerated. Start IV Lasix 20mg BID for now with hold parameters for SBP<110. Unable to tolerate nebs yesterday 2/2 agitation; will reattempt nebs as able. Continue Mucinex. Unable to participate in ISP/FV therapy. Repeat CXR on 12/23 to monitor for any improvement. Continue Tylenol PRN. (5) Complicated UTI (urinary tract infection): (6) Hydronephrosis with obstructing calculus: Plan: Admitting CTAP: Newly noted L proximal ureteric stone measuring 6mm with mild backpressure changes. Day #5 s/p cystoscopy with irrigation of bladder and Alcantara catheter placement, L ureteroscopy with stent placement and aspiration of the L kidney performed by Dr. Napoles. Procedural findings consistent with a severe obstruction of the L ureter stone impacted in stricture at the UPJ with severely purulent urine aspiration and irrigated from the L kidney. Initial UA suggestive of infection. Initial urine culture with Gardnerella-like bacilli. Urine from L kidney during above urologic procedure with no significant growth on final culture results. 12/18 Repeat CTAP: Resolution of the previously seen L hydronephrosis after placement of a L ureteral stent. Multiple bilateral renal calculi. Continue Alcantara catheter as directed by urology. On above ABX therapy; repeat UA and urine culture unremarkable. No further intervention warranted. Need to arrange outpatient urology follow- up to discuss definitive stone treatment. (7) Anemia: Plan: Baseline Hgb ~11-13 per chart review. Hgb 10.7 on admission, downtrending to 8 today; likely dilutional component contributing. Prior hematuria s/p above urologic procedure has resolved. Anemia panel ordered. Iron 15, TIBC 195, transferrin 139 and ferritin 72.4; vit B12 and folate levels WNL. Started on daily iron supplement. Repeated bouts of blood-streaked stools per discussion with RN. FOBT negative x 2. Hold SQ Lovenox. Has known internal hemorrhoids. C. diff negative. No indic ation to transfuse at this time given Hgb>7. Will repeat H/H tonight around 6pm. Continue daily CBC monitoring. (8) Intellectual disability: (9) Restlessness and agitation: Plan: Admitting Head CT: No acute intracranial hemorrhage, midline shift or mass effect. Accentuated bilateral deep periventricular hypodensities likely microvascular ischemic changes. Newly noted diffuse cortical thickening of the skull more at the frontal bones. [facility]. Per prior discussion with Amita mahoney, the nursing substation supervisor at [facility], it is not uncommon for the patient to become acutely agitated in unfamiliar scenarios or after procedures. Requiring application of soft mitts on both heads again 2/2 repeatedly pulling off NC. (10) Nocturnal hypoxia: Plan: Desaturates during sleep. High probability of ALINA/OHS however patient would likely not be able to tolerate BiPAP or CPAP. Continue with O2 supplementation during sleep to keep saturation around 90-92%. (11) Hypocalcemia: Plan: Hypocalcemia 2/2 hypovitaminosis D. Started on vitamin D supplement. Monitor daily BMP. (12) Epilepsy: Plan: Follows with Dr. Ines Richardson of [facility] neurology. Continue home seizure medication regimen. Stable, well-controlled. Lamictal level WNL. Suspect falsely supratherapeutic Keppra level. Initial Keppra level was drawn in the afternoon after she had already received her morning dose. Keppra levels must be drawn immediately BEFORE the next scheduled dose. Will repeat this in the morning; nursing and lab communication orders in the chart. Continue her current Keppra dose. Other Chronic Medical Conditions: GERD - Continue Pepcid. Excessive Salvation - Continue glycopyrrolate. MDD/OCD/Tardive Dyskinesia - Stable on current psychiatric medication regimen, continue. Follows with psychiatry at [facility]. DVT Prophylaxis: SQ Lovenox Code Status: FULL CODE PCP: Josh Holman MD Disposition: Discharge plans uncertain at this time. Plan for return back to jail when medically stable. Medical proxy is Mary Munoz @ [phone]. Mary is a distant aunt and lives in [place]. She is her only living relative. Nursing substation supervisor at [facility] is Rochelle @ [phone]. Plan on calling her this afternoon to provide additional updates. Patient seen in collaboration with Dr. Abraham. Please see addendum. I spent a total of 56 minutes coordinating, documenting, and providing care for this patient excluding time spent in the performance of separately billed services or time spent by another provider/QHP. This included personally reviewing all current laboratories and imaging studies, medical reconciliation, outpatient chart review and discussion with specialists. This chart was completed in part utilizing Speech Voice Recognition Software. Grammatical errors, random word insertions, pronoun errors, and incomplete sentences are an occasional consequence of this system due to software limitations, ambient noise, and hardware issues. Any formal questions or concerns about the content, text, or information contained within the body of this dictation should be directly addressed to the provider for clarification. Admission and Anticipated Discharge Date Admission Date: December 15, 2024 Subjective Patient seen and examined in room N282-1. Nonverbal at bedside. Severe intellectual disability. Soft mitten restraints in place as patient was previously removing her NC. Seems more calm and comfortable this morning. Was motioning for her water a few times and took some sips with assistance. Review of Systems Review of Systems: Unobtainable due to patient's cognitive status. Nonverbal at baseline. Physical Exam Physical Exam: General/Neurologic: Middle-aged, F. Sitting up in bed. Nonverbal at baseline. Known severe intellectual disability. More alert this morning. Has soft mitten restraints on both hands. Seems more calm and comfortable. Motions with her hands for her drinks on the bedside table. Respiratory: On 2L NC and saturating in the low to mid 90s. Lung sounds diminished throughout. Unable to participate with deep inspiration. Normal respiratory effort. Cardiovascular: Tachycardic rate, regular rhythm. No murmur. 1+ BLE edema. Abdomen/GI: Normal bowel sounds, soft, nondistended, nontender to palpation in all quadrants. : Alcantara catheter intact and draining clear, yellow urine. Hematuria resolved. Extremities/MSK: No cyanosis or clubbing. Unable to perform extremity strength testing due to patient's cognitive status. Results & Data Results & Data Vital Signs (Past 12 Hours) Vital Signs Temp Pulse Pulse Resp BP Pulse Ox O2 Del Method 12/22/24 05:18 79 97/56 L 12/22/24 02:28 36.4 C L 79 16 99/60 L 96 Nasal Cannula 12/22/24 00:12 72 18 98 Nasal Cannula 12/21/24 23:31 36.5 C 72 16 90/49 L 99 Nasal Cannula 12/21/24 21:56 78 12/21/24 20:20 Nasal Cannula 12/21/24 19:42 85 18 97 Nasal Cannula 12/21/24 19:23 36.5 C 80 18 158/79 H 98 Nasal Cannula O2 Flow Rate 12/22/24 05:18 12/22/24 02:28 2 12/22/24 00:12 2 12/21/24 23:31 2 12/21/24 21:56 12/21/24 20:20 2 12/21/24 19:42 1 12/21/24 19:23 2 Laboratory Results Short CBC 12/21/24 12/22/24 Range/Units 21:14 05:43 WBC 10.86 H (4.8-10.8) K/ul Hgb 8.8 L 8.0 L (12.0-16.0) g/dl Hct 26.6 L 24.1 L (37.0-47.0) % Plt Count 334 (130-400) K/uL BMP 12/22/24 05:43 Sodium 138 Potassium 4.3 Chloride 101 Carbon Dioxide 34 H BUN 7 Creatinine 0.57 L Glucose 92 Calcium 7.9 L Urine 12/21/24 Range/Units 09:42 Urine Color Yellow Urine Appearance Clear (Clear) Urine pH 8.0 H (4.5-7.5) Ur Specific [place] 1.038 H (1.000-1.030) Urine Protein Trace H (Negative) Urine Glucose (UA) Negative (Negative) (1) Sepsis Sepsis acute organ dysfunction status: unspecified Sepsis type: sepsis due to unspecified organism Qualified Code(s): A41.9 - Sepsis, unspecified organism (7) Anemia Anemia type: unspecified type Qualified Code(s): D64.9 - Anemia, unspecified (12) Epilepsy Epilepsy type: unspecified Intractability: not intractable Status epilepticus: without status epilepticus Qualified Code(s): G40.909 - Epilepsy, unspecified, not intractable, without status epilepticus
[2024-12-22] MEDS: FUROSEMIDE 40 MG/4 ML VIAL IV SCH (18:02)
[2024-12-22 18:28] LABS: Hematocrit (blood only) 27.7 % (37.0-47.0); Hemoglobin 9.1 g/dl (12.0-16.0)
--- NOTE | 2024-12-23 07:27 | XRay Report ---
EXAM: XR chest 1V portable CLINICAL HISTORY: Multifocal PNA, check for improvement TECHNIQUE: An X-ray image of the chest is obtained in 1 AP projection. COMPARISON: 12/20/2024. FINDINGS: Pulmonary Parenchyma: Mild pleural reaction at the left costophrenic recess causing the blunting of CP angle. No evidence of lung consolidation/collapse seen. No pulmonary nodule seen. Heart and Mediastinum: Possible cardiomegaly. No mediastinal widening or masses. No hilar or mediastinal lymphadenopathy. Bony Thorax: Bony thorax appears intact without fractures or deformities. Soft Tissues: Soft tissues overlying the chest wall are unremarkable. IMPRESSION: 1. Interval reduced, mild pleural reaction at the left costophrenic recess blunting the costophrenic angle. Mild/small pleural effusion. 2. Mild cardiomegaly. 3. Interval improvement. Electronically signed by Evangelist Delatorre 12-23-2024 07:27 AM
[2024-12-23 08:15] LABS: Hematocrit (blood only) 25.8 % (37.0-47.0); Hemoglobin 8.4 g/dl (12.0-16.0); Mean Corpuscular Hemoglobin 28.6 pg (25.0-34.0); Mean Corpuscular Hgb Conc 32.6 g/dL (32.0-36.0); Mean Corpuscular Volume 87.8 fL (80.0-100.0); Mean Platelet Volume 9.8 fL (9.4-12.4); Platelet Count 406 K/uL (130-400); RDW Coefficient of Variation 13.4 % (11.5-14.5); RDW Standard Deviation 42.8 fL (36.4-46.3); Red Blood Count 2.94 M/uL (4.20-5.40); White Blood Count 12.52 K/ul (4.8-10.8)
[2024-12-23 08:37] LABS: Albumin Globulin Ratio 1.1 (0.9-2); Albumin Level 3.1 gm/dl (3.4-5.0); BUN Creatinine Ratio 10.9 (10-20); Bilirubin,Total 0.2 mg/dl (0.2-1.0); Calcium 8.6 mg/dl (8.6-10.3); Creatinine Clr Calc Pharmacy 99.1 ml/min; Globulin 2.9 gm/dl (2.5-4.0); Magnesium 1.7 mg/dl (1.7-2.4); Potassium 3.9 mmol/L (3.5-5.1)
--- NOTE | 2024-12-23 11:45 | Hospitalist Progress Note ---
Date of Service December 23, 2024 Assessment & Plan (1) Sepsis: (2) Multifocal pneumonia: (3) Bilateral pleural effusion: (4) Acute respiratory failure with hypoxia: (5) Complicated UTI (urinary tract infection): (6) Hydronephrosis with obstructing calculus: (7) Anemia: (8) Intellectual disability: (9) Restlessness and agitation: Plan: = (10) Nocturnal hypoxia: (11) Hypocalcemia: (12) Epilepsy: Plan Ines Delatorre is a nonverbal 59y/o F from [facility] with PMHx significant for severe intellectual disability, autism, epilepsy, recurrent MDD, OCD, mood disorder, history of SIADH, CKD stage III, GERD, SNHL of both ears, lesion of right lobe of liver, fecal and urinary incontinence, left nephrolithiasis, excessive salvation and generalized OA s/p recent R hip joint injection at [facility] on 11/30/24 who is admitted under our service due to sepsis secondary to underlying multifocal PNA and complicated UTI in the setting of an obstructing proximal left ureteral stone with subsequent pyelonephritis. #Sepsis #Complicated UTI #Hydronephrosis w/ obstructing calculus pt met sepsis criteria on admission - now resolved Initial blood cultures 08/21 + for staph hominis, suspect contaminant, repeat cultures on 12/17 were negative Underwent cystoscopy, L ureterscopy with stent placement and aspiration of L kidney by Dr. Hernández Shafer cath placed UA grew gardnerella like bacilli, urine collected from procedure NGTD She will need outpt uroogy follow up for definitive stone tx - for now plan to manage stent and shafer to maximize drainage of urinary tract will complete IV zosyn on 12/24 #Acute hypoxic respiratory failure #Multifocal PNA pt with multiple cxr/chest CTA most recent chest CTA 12/21 concerning for bilateral pleural effusions R>L, CHF, continued stable opacities in Rlung and small area of SURENDRA CXR today 12/23 showing improvement will complete IV antibiotics with Zosyn tomorrow, 12/24 Off oxygen at rest currently and stable [employer]INE[employer] TECHNICIAN evaluation w/o signs of aspiration #Acute on chronic HFpEF 12/19 TTE EF 55-60%, mild concentric LVH, grade I DD and trace TR pt with evidence of CHF on imaging Started on IV lasix evening on 12/22, will continue through today likely able to transition to PO lasix tomorrow #Chronic Anemia baseline 11-13 hgb down to 8.4 Anemia panel showed iron 15, TIBC 195, transferrin 139 and ferritin 72.4; vit B12 and folate levels WNL. Started on daily iron supplement. blood streaked stools reported per RN during hospital stay, felt to be known internal hemorrhoids by prior providers, cdfiff negative currently no indication for transfusion #Intellectual disability/MDD/OCD/Tarditive diskinesia Lives at retirement through [facility]. Per prior discussion with Rochelle, the nursing blast furnace auxiliaries supervisor at [facility], it is not uncommon for the patient to become acutely agitated in unfamiliar scenarios or after procedures. Requiring application of soft mitts on both heads again 2/2 repeatedly pulling off NC #Epilepsy #Elevated keppra level felt to be falsely elevated due to timing of lab draw. Lab needs to be drawn immediately before next dose currently keppra level pending #Abnormal imaging findings throughout hospital stay that require further outpt follow up -CT head: newly noted diffuse cortical thickening of skull at frontal bones, microvascular ischemic changes -CT a/p: b/l renal calyceal stones, uterine small calcific foci likely fibroids/leiomyomas, umbilical hernia DVT Prophylaxis: SQ Lovenox Code Status: FULL CODE PCP: Josh Holman MD Disposition: not yet medically stable, suspect in next 1-2 days, d/c to [facility] vs placement Medical proxy is Mary Munoz @ [phone]. Mary is a distant aunt and lives in [place]. She is her only living relative. Nursing blast furnace auxiliaries supervisor at [facility] is Rochelle @ [phone]. Plan on calling her this afternoon to provide additional updates. Patient seen in collaboration with Dr. Abraham. Please see addendum. I spent a total of 45 minutes coordinating, documenting, and providing care for this patient excluding time spent in the performance of separately billed services or time spent by another provider/QHP. This included personally reviewing all current laboratories and imaging studies, medical reconciliation, outpatient chart review and discussion with specialists. Admission and Anticipated Discharge Date Admission Date: December 15, 2024 Supervising Physician Co-Signing Physician Notes I have reviewed the advanced practitioner's documentation, and I agree with, and take responsibility for the plan of care I spent a total of 20 minutes coordinating, documenting, and providing care for this patient excluding time spent in the performance of separately billed services. All of the aforementioned completed while collaborating with the assigned advanced practitioner for a full treatment plan Subjective Pt nonverbal therefore hx unable to be obtained. Aide at bedside who is feeding her breakfast. States she is eating well. Pt did not require soft mitt restraints overnight and they were able to remove her oxygen. Review of Systems Review of Systems: Unobtainable due to cognitive status Physical Exam Physical Exam: Gen: WD/WN, intellectually disabled, alert, nontoxic, NAD HEENT: Normocephalic, atraumatic, conjunctivae moist, sclerae anicteric, mucous membranes moist. Lung: Clear to Auscultation bilaterally although shallow inspirations, no wheezes/rales/rhonchi Heart: Regular rate, regular rhythm,no edema Abdomen: Soft, NT, ND +BS x 4 Skin: Warm, no rash, negative turgor. : shafer with clear urine Results & Data Results & Data Vital Signs (Past 12 Hours) Vital Signs Temp Pulse Pulse Resp BP Pulse Ox O2 Del Method 12/23/24 11:35 37.2 C 78 20 109/70 91 Room Air 12/23/24 08:01 37.2 C 71 20 124/71 91 Room Air 12/23/24 07:00 76 12/23/24 03:36 36.6 C 78 16 109/63 90 Room Air Laboratory Results I have independently reviewed and interpreted patient's CBC, CMP, BNP Keppra level still pending Diagnostic Findings Chest X-Ray 12/23/24 07:00 EXAM: XR chest 1V portable CLINICAL HISTORY: Multifocal PNA, check for improvement TECHNIQUE: An X-ray image of the chest is obtained in 1 AP projection. COMPARISON: 12/20/2024. FINDINGS: Pulmonary Parenchyma: Mild pleural reaction at the left costophrenic recess causing the blunting of CP angle. No evidence of lung consolidation/collapse seen. No pulmonary nodule seen. Heart and Mediastinum: Possible cardiomegaly. No mediastinal widening or masses. No hilar or mediastinal lymphadenopathy. Bony Thorax: Bony thorax appears intact without fractures or deformities. Soft Tissues: Soft tissues overlying the chest wall are unremarkable. IMPRESSION: 1. Interval reduced, mild pleural reaction at the left costophrenic recess blunting the costophrenic angle. Mild/small pleural effusion. 2. Mild cardiomegaly. 3. Interval improvement. Electronically signed by Evangelist Delatorre 12-23-2024 07:27 AM Medications Administered Current Inpatient Medications Acetaminophen (Acetaminophen 325 Mg Tab) 650 mg PO Q4H PRN PRN Reason: pain/fever Stop: 01/14/25 21:12 Last Admin: 12/23/24 09:48 Dose: 650 mg Albuterol (Albuterol 0.5% Neb Soln 2.5 Mg/0.5 Ml Vial) 2.5 mg NEB Q4 PRN; Protocol PRN Reason: Shortness Of Breath Or Wheezing Stop: 01/14/25 21:12 Bisacodyl (Bisacodyl 5 Mg Tabec) 10 mg PO Q3D PRN PRN Reason: Constipation Stop: 01/14/25 21:12 Clobazam (Clobazam 5 Mg Tab) 5 mg PO HS SWAPNA Stop: 01/14/25 21:12 Last Admin: 12/22/24 22:11 Dose: 5 mg Deutetrabenazine (Austedo Xr 36 Mg Tablet) 1 each PO DAILY SWAPNA Stop: 01/16/25 08:59 Last Admin: 12/23/24 09:57 Dose: 1 each Docusate Sodium (Docusate Sodium 100 Mg Cap) 100 mg PO BID SWAPNA Stop: 01/14/25 21:12 Last Admin: 12/23/24 09:57 Dose: Not Given Enoxaparin Sodium (Enoxaparin Inj 40 Mg/0.4 Ml Syr) 40 mg SQ HS SWAPNA Stop: 01/14/25 21:29 Last Admin: 12/21/24 20:28 Dose: 40 mg Famotidine (Famotidine 40 Mg Tablet) 40 mg PO DAILY SWAPNA Stop: 01/15/25 08:59 Last Admin: 12/23/24 09:56 Dose: 40 mg Ferrous Sulfate (Ferrous Sulfate 325 Mg Tab) 325 mg PO BIDM SWAPNA Stop: 01/16/25 16:59 Last Admin: 12/23/24 09:55 Dose: 325 mg Furosemide (Furosemide 40 Mg/4 Ml Vial) 20 mg IV BID SWAPNA Stop: 01/21/25 18:59 Last Admin: 12/23/24 09:48 Dose: 20 mg Glycopyrrolate (Glycopyrrolate 1 Mg Tab) 1 mg PO TID SWAPNA Stop: 01/14/25 21:12 Last Admin: 12/23/24 09:48 Dose: 1 mg Guaifenesin (Guaifenesin 600 Mg Tabcr) 1,200 mg PO Q12 SWAPNA Stop: 01/20/25 20:59 Last Admin: 12/23/24 09:55 Dose: 1,200 mg Piperacillin Sod/Tazobactam Sod (Zosyn) 4.5 gm in 100 mls @ 25 mls/hr IV Q8H [facility]; Protocol Stop: 12/24/24 03:59 Last Infusion: 12/23/24 09:57 Dose: Infused Lactobacillus Acidophilus (Advanced Probiotic 625 Mg Capsule) 1,250 mg PO DAILY [facility] Stop: 01/15/25 08:59 Last Admin: 12/23/24 09:55 Dose: 1,250 mg Lamotrigine (Lamotrigine 100 Mg Tab) 200 mg PO BID [facility]; Protocol Stop: 01/14/25 21:12 Last Admin: 12/23/24 09:55 Dose: 200 mg Lamotrigine (Lamotrigine 25 Mg Tab) 50 mg PO BID [facility]; Protocol Stop: 01/14/25 21:12 Last Admin: 12/23/24 09:56 Dose: 50 mg Levetiracetam (Levetiracetam 500 Mg Tab) 1,500 mg PO BID [facility] Stop: 01/14/25 21:12 Last Admin: 12/23/24 09:48 Dose: 1,500 mg Loperamide HCl (Loperamide Hcl 2 Mg Cap) 2 mg PO UD PRN PRN Reason: Loose Stool Stop: 01/14/25 21:12 Last Admin: 12/22/24 16:35 Dose: 2 mg Olanzapine (Olanzapine 10 Mg/2.1 Ml Sdv) 2.5 mg IM Q4H PRN PRN Reason: Agitation Stop: 01/16/25 06:12 Oxybutynin Chloride (Oxybutynin Chloride 5 Mg Tab) 5 mg PO BID PRN PRN Reason: bladder spasms Stop: 01/16/25 20:59 Last Admin: 12/23/24 09:56 Dose: 5 mg Perphenazine (Perphenazine 2 Mg Tab) 2 mg PO BID [facility] Stop: 01/14/25 21:12 Last Admin: 12/23/24 09:57 Dose: 2 mg Perphenazine (Perphenazine 4 Mg Tab) 4 mg PO HS [facility] Stop: 01/14/25 21:12 Last Admin: 12/22/24 22:12 Dose: 4 mg Polyethylene Glycol (Polyethylene (Miralax) 17 Gm Pack) 17 gm PO DAILY [facility] Stop: 01/15/25 08:59 Last Admin: 12/23/24 09:57 Dose: Not Given Quetiapine Fumarate (Quetiapine Fumarate 200 Mg Tab) 200 mg PO [facility] Stop: 01/14/25 21:12 Last Admin: 12/22/24 22:08 Dose: 200 mg Quetiapine Fumarate (Quetiapine Fumarate 25 Mg Tablet) 50 mg PO QAM [facility] Stop: 01/15/25 08:59 Last Admin: 12/23/24 09:56 Dose: 50 mg Sertraline HCl (Sertraline Hcl 100 Mg Tablet) 100 mg PO QAM [facility] Stop: 01/15/25 08:59 Last Admin: 12/23/24 09:56 Dose: 100 mg Sodium Chloride (Sodium Chlor 7% 4 Ml Neb) 4 ml NEB BIDR [facility] Stop: 01/20/25 18:59 Last Admin: 12/23/24 08:17 Dose: Not Given Vitamin D (Cholecalciferol 125 Mcg (5,000 Units) Tab) 125 mcg PO QAM [facility] Stop: 01/20/25 08:59 Last Admin: 12/23/24 09:56 Dose: 125 mcg (1) Sepsis Sepsis acute organ dysfunction status: unspecified Sepsis type: sepsis due to unspecified organism Qualified Code(s): A41.9 - Sepsis, unspecified organism (7) Anemia Anemia type: unspecified type Qualified Code(s): D64.9 - Anemia, unspecified (12) Epilepsy Epilepsy type: unspecified Intractability: not intractable Status epilepticus: without status epilepticus Qualified Code(s): G40.909 - Epilepsy, unspecified, not intractable, without status epilepticus
[2024-12-24 08:33] LABS: Hematocrit (blood only) 28.4 % (37.0-47.0); Hemoglobin 9.5 g/dl (12.0-16.0); Mean Corpuscular Hemoglobin 29.4 pg (25.0-34.0); Mean Corpuscular Hgb Conc 33.5 g/dL (32.0-36.0); Mean Corpuscular Volume 87.9 fL (80.0-100.0); Platelet Count 472 K/uL (130-400); RDW Coefficient of Variation 13.7 % (11.5-14.5); RDW Standard Deviation 42.5 fL (36.4-46.3); Red Blood Count 3.23 M/uL (4.20-5.40); White Blood Count 13.42 K/ul (4.8-10.8)
[2024-12-24 08:49] LABS: BUN Creatinine Ratio 16.2 (10-20); Calcium 8.9 mg/dl (8.6-10.3); Creatinine Clr Calc Pharmacy 73.7 ml/min; Potassium 3.9 mmol/L (3.5-5.1)
--- NOTE | 2024-12-24 10:42 | Discharge Summary ---
Discharge Summary Date of Service December 24, 2024 Principal Dx & Hospital Course #1 = Principal Diagnosis (1) Sepsis: (2) Multifocal pneumonia: (3) Bilateral pleural effusion: (4) Acute respiratory failure with hypoxia: (5) Complicated UTI (urinary tract infection): (6) Hydronephrosis with obstructing calculus: (7) Anemia: (8) Intellectual disability: (9) Restlessness and agitation: = (10) Nocturnal hypoxia: (11) Hypocalcemia: (12) Epilepsy: Xiomara Delatorre is a nonverbal 59y/o F from [facility] with PMHx significant for severe intellectual disability, autism, epilepsy, recurrent MDD, OCD, mood disorder, history of SIADH, CKD stage III, GERD, SNHL of both ears, lesion of right lobe of liver, fecal and urinary incontinence, left nephrolithiasis, excessive salvation and generalized OA s/p recent R hip joint injection at [facility] on 11/30/24 who is admitted under our service due to sepsis secondary to underlying multifocal PNA and complicated UTI in the setting of an obstructing proximal left ureteral stone with subsequent pyelonephritis. #Sepsis #Complicated UTI #Hydronephrosis w/ obstructing calculus pt met sepsis criteria on admission - now resolved Initial blood cultures 08/21 + for staph hominis, suspect contaminant, repeat cultures on 12/17 were negative Underwent cystoscopy, L ureterscopy with stent placement and aspiration of L kidney by Dr. Hernández Shafer cath placed UA grew gardnerella like bacilli, urine collected from procedure NGTD She will need outpt uroogy follow up for definitive stone tx - for now plan to manage stent and shafer to maximize drainage of urinary tract Completed appropriate course of IV antibiotics #Acute hypoxic respiratory failure #Multifocal PNA pt with multiple cxr/chest CTA most recent chest CTA 12/21 concerning for bilateral pleural effusions R>L, CHF, continued stable opacities in Rlung and small area of SURENDRA CXR today 12/23 showing significant improvement Completed antibiotics, now off oxygen and stable [employer] evaluation w/o signs of aspiration #Acute on chronic HFpEF 12/19 TTE EF 55-60%, mild concentric LVH, grade I DD and trace TR pt with evidence of CHF on imaging Started on IV lasix evening on 12/22 Will discontinue lasix at discharge #Chronic Anemia baseline 11-13 hgb down to 9.3 Anemia panel showed iron 15, TIBC 195, transferrin 139 and ferritin 72.4; vit B12 and folate levels WNL. Started on daily iron supplement. blood streaked stools reported per RN during hospital stay, felt to be known internal hemorrhoids by prior providers, cdfiff negative currently no indication for transfusion and no further report of blood streaked stools #Intellectual disability/MDD/OCD/Tarditive diskinesia Lives at skilled nursing through [facility]. Per prior discussion with Rochelle, the nursing inside plant supervisor at [facility], it is not uncommon for the patient to become acutely agitated in unfamiliar scenarios or after procedures. #Epilepsy #Elevated keppra level felt to be falsely elevated due to timing of lab draw. Lab needs to be drawn immediately before next dose currently keppra level pending continue keppra #Abnormal imaging findings throughout hospital stay that require further outpt follow up -CT head: newly noted diffuse cortical thickening of skull at frontal bones, microvascular ischemic changes -CT a/p: b/l renal calyceal stones, uterine small calcific foci likely fibroids/leiomyomas, umbilical hernia recommend follow up with PCP regarding these abnormalities Code Status: FULL CODE PCP: Josh Holman MD Disposition: D/C Back to the [facility] today Medical proxy is Mary Munoz @ [phone]. Mary is a distant aunt and lives in [place]. She is her only living relative. Nursing inside plant supervisor at [facility] is Rochelle @ [phone]. Discussed Rochelle regarding plans for discharge later today. We will provide [facility] with shafer supplies in event becomes dislodged or pulled out. Patient seen in collaboration with Dr. Abraham. Please see addendum. I spent a total of 47 minutes coordinating, documenting, and providing care for this patient excluding time spent in the performance of separately billed services or time spent by another provider/QHP. This included personally reviewing all current laboratories and imaging studies, medical reconciliation, outpatient chart review and discussion with specialists. Notes For Next Care Provider Please repeat patient CBC at follow up appointment. Ensure pt has urology follow up for definitive stone treatment and shafer management. Please follow up with Keppra Level that was pending at discharge. An initial keppra level was drawn on admission; however it was drawn after dose was given; therefore likely falsely elevated. Please ensure levels normalized as the pending level was drawn prior to dose administered. Medication Changes From Visit 1. Ferrous Sulfate 325mg twice daily with meals - this is your iron supplement. 2. Vitamin D3, 5,000 I.U. once daily. 3. Continue all other medications as prescribed. Admission HPI Per Admitting Provider 59 year old female with PMH significant for severe intellectual disability, nonverbal at baseline, autism, epilepsy, MDD, OCD, GERD, incontinence of urine, OA s/p joint injection on 11/30 at [facility], and history of left nephrolithiasis who presents to the ED from [facility] where the staff noticed that she was not herself this morning. Patient is unable to provide history as she is nonverbal but the nursing inside plant supervisor, Rochelle, was at bedside and able to provide history. She reports that patient was in her usual state of health yesterday but was incontinent of stool this morning. Patient is usually incontinent of urine but not stool. When the staff went to clean the patient up, she was a two person assist, where she normally is able to get herself up out of bed. They noticed patient was limp and lethargic, tachypneic at 32, and hypoxic at 88% on RA. Patient felt warm but their thermometer read 97.9F. She denies cough or runny nose. She denies any sick contacts in the patient's house. Patient has been eating and drinking at her baseline. Patient was able to take her medications this morning. She denies falls. Rochelle notes that Ines understands when people talk to her and will follow commands. She likes blankets over her head. She likes soda and peanut butter and jelly sandwiches. She will sometimes grab your arm to show you something and if you pull away she may dig in with her nails. She has been aggressive in the past but not recently. Admission Exam Per Admitting Provider General/Psych: WD/WN, sitting up in bed, NAD, nonverbal Head: normocephalic, atraumatic Eyes: normal inspection, PERRL, conjunctivae pink, anicteric sclerae ENT: external ear and nose normal, oropharynx normal Neck: normal visual inspection, trachea midline, no thyromegaly Respiratory: normal respiratory effort, no accessory muscle use, inspiratory wheezes appreciated over bilateral lung childers Cardiovascular: regular rate and rhythm, no murmur/rub/gallop, no JVD Extremities: no cyanosis or clubbing, normal peripheral pulses, no BLE edema Abdomen/GI: normal bowel sounds, soft, nontender, no hepatosplenomegaly, no flank pain Neurologic/MSK: A+Ox3, moves all extremities Skin: no rashes, normal color, warm and dry Discharge Exam Gen: WD/WN, intellectually disabled, alert, nontoxic, NAD HEENT: Normocephalic, atraumatic, conjunctivae moist, sclerae anicteric, mucous membranes moist. Lung: Clear to Auscultation bilaterally although shallow inspirations, no wheezes/rales/rhonchi Heart: Regular rate, regular rhythm,no edema Abdomen: Soft, NT, ND +BS x 4 Skin: Warm, no rash, negative turgor. : shafer with clear urine Updated Medication List Medication Instructions Recorded Confirmed Type acetaminophen 500 mg tablet 1,000 mg PO Q4H PRN Headache/Pain 12/15/24 12/15/24 History acetaminophen 500 mg tablet 500 mg PO QAM 12/15/24 12/15/24 History aloe vera 1 applic topical Q1H PRN Sunburn 12/15/24 12/15/24 History aluminum-mag hydroxide-simethicone 10 ml PO DIRECTED PRN 12/15/24 12/15/24 History 400 mg-400 mg-40 mg/5 mL oral susp Indigestion (Maalox Maximum Strength) bisacodyl 5 mg tablet,delayed 10 mg PO Q3D PRN Constipation 12/15/24 12/15/24 History release calcium 500 mg (as 1 tab PO QAM 12/15/24 12/15/24 History carbonate)-vitamin D3 5 mcg (200 unit) tablet chlorhexidine gluconate 0.12 % 1 applic buccal TID 12/15/24 12/15/24 History mouthwash clobazam 10 mg tablet 5 mg PO HS 12/15/24 12/15/24 History deutetrabenazine 36 mg 36 mg PO DAILY 12/15/24 12/15/24 History tablet,extended release 24 hr (Austedo XR) dextromethorphan-guaifenesin 20 10 ml PO Q4H PRN Cough 12/15/24 12/15/24 History mg-400 mg/5 mL oral liquid docusate sodium 100 mg capsule 100 mg PO BID 12/15/24 12/15/24 History famotidine 40 mg tablet 40 mg PO DAILY 12/15/24 12/15/24 History fluoride (sodium) 1.1 % dental 1 applic dental DAILY 12/15/24 12/15/24 History cream (Sodium Fluoride 5000 Plus) glycopyrrolate 1 mg tablet 1 mg PO TID 12/15/24 12/15/24 History hydrocortisone 1 % topical cream 1 applic topical TID PRN Rash 12/15/24 12/15/24 History lamotrigine 100 mg tablet 50 mg PO BID 12/15/24 12/15/24 History lamotrigine 200 mg tablet 200 mg PO BID 12/15/24 12/15/24 History levetiracetam 1,000 mg tablet 1,000 mg PO BID 12/15/24 12/15/24 History levetiracetam 500 mg tablet 500 mg PO BID 12/15/24 12/15/24 History loperamide 2 mg capsule 2 mg PO DIRECTED PRN Loose Stool 12/15/24 12/15/24 History multivitamin 1 tab PO QAM 12/15/24 12/15/24 History perphenazine 2 mg tablet 2 mg PO BID 12/15/24 12/15/24 History perphenazine 4 mg tablet 4 mg PO HS 12/15/24 12/15/24 History phenylephrine HCl 10 mg tablet 10 mg PO Q4H PRN Colds/Runny Nose 12/15/24 12/15/24 History phosphorated carbohydrate oral 30 ml PO DIRECTED PRN Nausea 12/15/24 12/15/24 History solution (Emetrol oral solution) polyethylene glycol 3350 17 17 g PO DAILY 12/15/24 12/15/24 History gram/dose oral powder quetiapine 200 mg tablet 200 mg PO HS 12/15/24 12/15/24 History quetiapine 50 mg tablet 50 mg PO QAM 12/15/24 12/15/24 History sertraline 100 mg tablet 100 mg PO QAM 12/15/24 12/15/24 History cholecalciferol (vitamin D3) 125 125 mcg PO QAM #30 tabs 12/24/24 Rx mcg (5,000 unit) tablet ferrous sulfate 325 mg (65 mg 325 mg PO BIDM #60 tabs 12/24/24 Rx iron) tablet,delayed release Hospital Stay Data Consultations 12/15/24 16:23 ED Decision to Admit Stat 12/15/24 19:33 Consult Urology Routine 12/18/24 09:05 Consult Infectious Diseases Routine 12/18/24 12:16 Consult Pulmonology Routine Procedures Performed Operation Date: 12/16/24 12:10 Actual Procedures p Cystoscopy Left Retrograde Pyelogram,Left Stent Placement, left ureteroscopy, aspiration left kidney(Left) - Dilip Napoles DO Diagnostic Imagining Performed Chest X-Ray 12/15/24 14:01 XR chest 1V portable CLINICAL HISTORY: fever COMPARISON STUDY: 12/05/2021 FINDINGS: Single view chest demonstrates patchy airspace opacity in the right upper lobe with a hint of air bronchogram formation. Lung childers otherwise clear allowing for technique and low lung volumes. Cardiomediastinal silhouette is widened and also due to technique. IMPRESSION: Suspicious for right upper lobe infiltrate ACT 112: Negative or not required by law. Electronically signed by: Ines Myrick M.D. 12/15/2024 2:[address] 12/15/24 16:22 EXAM: CT head/brain wo con CLINICAL HISTORY: AMS TECHNIQUE: Axial non-contrast CT scan of the brain was performed from the skull base to the high parietal region. One of the following dose reduction techniques were utilized for this exam: Automated exposure control, adjustment of the mA and/or kV according to patient size, use of iterative reconstruction. COMPARISON: 07/25/2023. FINDINGS: Brain Parenchyma: Accentuated bilateral deep periventricular hypodensities likely microvascular ischemic changes. Otherwise, Normal attenuation of the cerebral hemispheres, cerebellum, and brainstem. No evidence of acute infarct, hemorrhage, or mass effect. Ventricular System: Ventricles are normal in size and configuration. No evidence of hydrocephalus or ventricular enlargement. Subarachnoid Spaces: Normal sulci and cisterns. No evidence of subarachnoid hemorrhage or extra-axial fluid collections. Cerebellum and Brainstem: Normal size and signal. No masses, lesions, or areas of abnormal density. Orbits: Normal appearance of the globes, optic nerves, and extraocular muscles. No evidence of orbital masses or abnormal density. Sinuses: Mild left maxillary sinusitis. Mastoid Air Cells: Clear mastoid air cells. No evidence of mastoiditis. Skull: Newly noted diffuse cortical thickening of the skull more at the frontal bones. IMPRESSION: 1. No acute intracranial hemorrhage, midline shift, or mass effect. stable. 2. Accentuated bilateral deep periventricular hypodensities likely microvascular ischemic changes. 3. Newly noted diffuse cortical thickening of the skull more at the frontal bones. Electronically signed by Evangelist Delatorre 12-15-2024 7:16 PM Abdomen/Pelvis CT 12/15/24 17:00 EXAM: CT abd pelvis wo con CLINICAL HISTORY: UTI and history of left nephrolithiasis TECHNIQUE: Non-contrast CT of the abdomen and pelvis was performed, with the following protocol: axial images, and reconstructed coronal and sagittal images. No intravenous contrast was administered. One of the following dose reduction techniques was utilized for this exam: Automated exposure control, adjustment of the mA and/or kV according to patient size, and use of iterative reconstruction. COMPARISON: 05/25/2024. FINDINGS: Abdomen: Liver: Normal in size, shape, and density. No focal lesions, cysts, or masses were identified. Gallbladder and Biliary System: The gallbladder is normal in size and shape. No wall thickening, pericholecystic fluid, or gallstones were identified. Pancreas: Pancreatic head, body, and tail are visualized and appear normal in size and density. No pancreatic masses or calcifications were noted. Spleen: Normal in size, shape, and density. No splenic lesions or masses were identified. Kidneys and Adrenal Glands: Both kidneys are normal in size, shape, and position. Cortical thickness is within normal limits. Bilateral renal calyceal stones (more on the left side) measuring up to 5 mm on the right side and 3.7 mm on the left side. Newly noted left proximal ureteric stone measuring 6 mm with mild backpressure changes. Adrenal glands are unremarkable. Appendix: The appendix is normal in size without nhi appendiceal fat stranding and without an appendicolith. No evidence of appendiceal abscess or perforation. Pelvis: Urinary Bladder: Normal in contour and wall thickness. No intraluminal lesions. Uterus: Normal in size and contour. No masses or abnormal thickening. Mild small calcific foci are noted likely fibroids. Ovaries: Not well visualized but no gross abnormalities noted. Vagina: Normal in contour and wall thickness. Cervix: No evidence of mass or abnormal thickening. Peritoneal and Retroperitoneal Structures: No free fluid or abnormal fluid collections were identified within the abdomen or pelvis. No lymphadenopathy was noted. Atheromatous calcification of the aorta and both iliac vessels. Umbilical hernia containing fat . Bowel: Diffuse distension of the colon by fecal matter. No evidence of bowel obstruction or wall thickening. Bones and Soft Tissues: Spondylodegenrative changes . Osteoarthrtic changes of the right hip joint. Lower chest shows : Mild pericardial thickening/effusion. A hiatus hernia is noted. IMPRESSION: 1. Newly noted left proximal ureteric stone measuring 6 mm with mild backpressure changes. 2. Stable other bilateral renal calyceal stones. 3. Uterine small calcific foci are noted likely fibroids. stable. 4. Umbilical hernia containing fat . stable . Electronically signed by Evangelist Delatorre 12-15-2024 7:15 PM Retrograde Pyelogram 12/16/24 00:00 FL retrograde includes kub CLINICAL HISTORY: LEFT RETROGRADE AND STENT COMPARISON STUDY: None pertinent FLUOROSCOPY TIME: 94.9 seconds FLUOROSCOPY IMAGES: 3 EXPOSURE DOSE: 25.23 mGy FINDINGS: Fluoroscopic guidance provided for a left retrograde pyelogram and a left ureteral stent placement. IMPRESSION: Please refer to procedural report for evaluation based upon real time fluoroscopic observation ACT 112: Negative or not required by law. Electronically signed by: Ines Myrick M.D. 12/16/2024 1:11 PM Abdomen/Pelvis CT 12/18/24 08:04 Technique: Axial computed tomography images were obtained of the abdomen and pelvis without intravenous contrast. Comparison is made to the prior CT dated 12/15/2024 Findings: The liver is overall of normal size, attenuation, and contour with no sign of cirrhosis or significant fatty infiltration. No definite liver mass lesion is seen on this noncontrast study. The gallbladder appears unremarkable. No bile duct dilatation is noted. The spleen is of normal size. No focal splenic lesion is evident. The pancreas appears normal with no sign of acute or chronic pancreatitis and no mass lesion noted. The pancreatic duct is of normal caliber. The adrenal glands appear unremarkable. There has been resolution of the previously left hydronephrosis after placement of a left ureteral stent. There is a 5 mm calculus in the left renal pelvis. There are bilateral renal calculi, measuring up to 7 mm in size. No definite renal mass lesion is identified. Pyelonephritis is not well evaluated for on this noncontrast study The aorta is of normal caliber. No abdominal adenopathy is seen. The stomach appears normal. There is no sign of small bowel obstruction. The colon appears unremarkable. The appendix appears normal also. No free intraperitoneal fluid or air is identified. The bladder is decompressed, containing a Shafer catheter. The iliac arteries are of normal caliber. No pelvic adenopathy is noted. There are apparent uterine leiomyomas Lumbar scoliosis and degenerative disc disease is seen. There is right worse than left hip osteoarthritis. No fracture is identified. No focal osseous lesion is seen Impression: 1. Resolution of the previously seen left hydronephrosis after placement of a left ureteral stent 2. Multiple bilateral renal calculi 3. Uterine leiomyomas ACT 112: Positive. There are findings on this exam that require communication between the performing entity and the patient following Patient Test Result Information Act ([place] ACT 112) guidelines. Electronically signed by Landon Cason 12-18-2024 09:[address] 12/18/24 08:04 Clinical history: Rule out pneumonia Technique: Axial computed tomography images were obtained of the chest without intravenous contrast Comparison is made to the prior CT dated 08/27/2023 Findings: There are multifocal alveolar infiltrates in the right upper lobe and to a lesser extent the right middle lobe, left upper lobe, and right lower lobe. This is consistent with pneumonia. There is bilateral lower lobe atelectasis. There is a small to moderate right pleural effusion and there is a small left pleural effusion. There is no pneumothorax. There is no mediastinal, hilar, or axillary adenopathy. The thoracic aorta is of normal caliber. There is no pericardial effusion. There are prominent mitral annulus calcifications No fracture is seen. No focal osseous lesion is evident Impression: 1. Right worse than left pneumonia 2. Right larger than left pleural effusions ACT 112: Positive. There are findings on this exam that require communication between the performing entity and the patient following Patient Test Result Information Act ([place] ACT 112) guidelines. Electronically signed by Landon Cason 12-18-2024 09:32 AM Chest X-Ray 12/20/24 07:00 EXAM: XR chest 1V portable CLINICAL HISTORY: Recheck pleural effusions, infiltrate. TECHNIQUE: X-ray images of the chest were obtained in posteroanterior AP projection. COMPARISON: comparison made with previous CT dated 12/15/2024. CT dated 12/18/2024 reviewed. FINDINGS: Pulmonary Parenchyma: Right lung mainly mid and lower zone air space and peribronchial opacities reaching the related costophrenic angle with no total obliteration. Obliterated left costophrenic angle with underlying opacity of likely collapse. Heart and Mediastinum: Apparent cardiomegaly. Bony Thorax: Bony thorax appears intact without fractures or deformities. Soft Tissues: Soft tissues overlying the chest wall are unremarkable. IMPRESSION: 1. Progressive course regarding Right lung mid and lower zonal infiltration and Left-sided pleural effusion with underlying atelectasis. 2. Clinical lab correlation and follow-up is advised. Electronically signed by Evangelist Delatorre 12-20-2024 07:29 AM Chest CTA 12/21/24 07:39 CT angio chest PE protocol CT DOSE: 606.02 mGy.cm HISTORY: PE. TECHNIQUE: Multiple CTA images of the chest were obtained after the intravenous administration of 70 ml Optiray. Coronal and sagittal MIPS were obtained from the axial data set and were submitted for review. All measurements were obtained according to NASCET criteria. A dose lowering technique was utilized adhering to the principles of ALARA. COMPARISON STUDY: 12/18/2024 FINDINGS: There is motion artifact due to difficulty breath holding. There are bilateral pleural effusions, moderate on the right and small on the left, mildly increased in size. There is mild to moderate adjacent compressive atelectasis at the lower lung lobes. There are stable scattered patchy opacities throughout the right lung and a small area of the left upper lobe, pneumonia versus pulmonary edema. No pneumothorax. There is a 2 cm oval density posterior lateral to the lower trachea which could represent enlarged lymph node, or summation artifact from the azygos vein and esophagus. No other enlarged adenopathy. No pericardial effusion. There are mitral valvular calcifications. No thoracic aortic dissection or aneurysm. Evaluation of the tiny distal subsegmental pulmonary arteries is limited. No pulmonary embolism seen otherwise. There are mild thoracic spine degenerative changes. IMPRESSION: 1. No pulmonary embolism seen. 2. CHF with bilateral pleural effusions. 3. Pneumonia versus pulmonary edema. 4. Otherwise as described. Follow-up chest CT suggested in 3 months to make sure that these findings resolve. ACT 112: Negative or not required by law. The above report was generated using voice recognition software. It may contain grammatical, syntax or spelling errors. Electronically signed by: Filiberto Smith M.D. 12/21/2024 9:26 AM Venous Doppler Study 12/21/24 07:40 BILATERAL LOWER EXTREMITY VENOUS DOPPLER CLINICAL HISTORY: BLE edema, r/o DVT COMPARISON STUDY: Left lower extremity venous Doppler ultrasound April 03, 2023. TECHNIQUE: Sonography of the deep venous system of the bilateral lower extremities was performed. Compression and augmentation were evaluated. FINDINGS: The bilateral common femoral, superficial femoral and popliteal veins were compressible. Augmentation was normal. Flow was shown within the deep calf vessels. IMPRESSION: No evidence of deep venous thrombus within the bilateral lower extremities. ACT 112: Negative or not required by law. Electronically signed by: Henry Ayala M.D. 12/21/2024 9:38 AM Chest X-Ray 12/23/24 07:00 EXAM: XR chest 1V portable CLINICAL HISTORY: Multifocal PNA, check for improvement TECHNIQUE: An X-ray image of the chest is obtained in 1 AP projection. COMPARISON: 12/20/2024. FINDINGS: Pulmonary Parenchyma: Mild pleural reaction at the left costophrenic recess causing the blunting of CP angle. No evidence of lung consolidation/collapse seen. No pulmonary nodule seen. Heart and Mediastinum: Possible cardiomegaly. No mediastinal widening or masses. No hilar or mediastinal lymphadenopathy. Bony Thorax: Bony thorax appears intact without fractures or deformities. Soft Tissues: Soft tissues overlying the chest wall are unremarkable. IMPRESSION: 1. Interval reduced, mild pleural reaction at the left costophrenic recess blunting the costophrenic angle. Mild/small pleural effusion. 2. Mild cardiomegaly. 3. Interval improvement. Electronically signed by Evangelist Delatorre 12-23-2024 07:27 AM Discharge Instructions Given to Patient (Per Discharging Provider) MEDICATION CHANGES: 1. Ferrous Sulfate 325mg twice daily with meals - this is your iron supplement. 2. Vitamin D3, 5,000 I.U. once daily. 3. Continue all other medications as prescribed. SUMMARY OF TEST RESULTS: Ines, you were admitted to the hospital due to significant infection secondary to an obstructing stone in your left ureter and pneumonia. You were started on antibiotics. You underwent a procedure where a stent was placed to resolve the obstruction in your ureter. You were seen by infectious disease who recommended you complete antibiotics on 12/24. You initially required oxygen, but this impro telly with improvement of your pneumonia. You did have some mild congestive heart failure likely due to IV fluids from infection/surgical procedure. This resolved with a medication called IV Lasix. Urology recommends you maintain your shafer catheter for now to allow for maximum urine output given your stent placement. You will need close follow up with them. PENDING TEST RESULTS: Xiomara schwartz, your Primary Care Provider can follow up on this. RECOMMENDATIONS FOR FOLLOW-UP: Please follow up with Primary Care Provider as scheduled. Please follow up with Urology as scheduled. Please continue daily routine urinary catheter care. Please take all medications as prescribed. OTHER INSTRUCTIONS: Seek medical attention if you have: * temperature above 101 * chest pain or trouble breathing * abdominal pain, nausea, vomiting * diarrhea, dark stools or bloody stools * any unanswered questions or concerns Call 911 if symptoms are severe. Please take good care of yourself. It has been a pleasure taking care of you. Please take care of yourself. If you have any questions regarding your recent hospitalization please contact [facility] and request Adelia Dixon @ [phone]. Total Time Total Time Spent Total Time Spent (In Minutes): 47 minutes Supervising Physician Co-Signing Physician Notes I have reviewed the advanced practitioner's documentation, and I agree with, and take responsibility for the plan of care I spent a total of 20 minutes coordinating, documenting, and providing care for this patient excluding time spent in the performance of separately billed services. All of the aforementioned completed while collaborating with the assigned advanced practitioner for a full treatment plan
== END 2024-12-24 15:23 | disposition home or self-care (01) | DRG 853 ==
LOC: ED 13:12 → 2N 18:10 → SUATTDRO 18:10 → 2N 21:07

== ENCOUNTER 2025-02-21 19:16 | Inpatient (IN) ==
--- NOTE | 2025-02-21 19:37 | Emergency Department Note ---
Impression & Plan Small bowel obstruction, Nonverbal, Acute UTI, Vomiting, Hypoxia ED Provider Note NAME: SILVERIO NICHOLE AGE: 59 SEX: F : 1965 ARRIVES VIA: Ambulance INFORMANT: Patient ED PROVIDER(S): Lakhwinder Gaffney DO CHIEF COMPLAINT: N/V/D HPI: Patient is a 59-year-old female who presents to the ER with a history of hydronephrosis with ureteral stent for nausea, vomiting, and diarrhea. Symptoms started earlier today and have been persistent and slightly worsening. They deny any fevers. Unable to obtain history from the patient as she is nonverbal but history is given by sustain engineer. He notes that she has been acting appropriately other than the nausea vomiting and diarrhea. History is otherwise unobtainable. Mentally she is at her baseline. ADDITIONAL HISTORY OBTAINED: Per HPI Chronic Medical/Social Conditions Affecting Care: Per HPI PAST MEDICAL HISTORY:See Below PAST SURGICAL HISTORY:See Below FAMILY HISTORY:See Below SOCIAL HISTORY:See Below HOME MEDICATIONS:See Below ALLERGIES:See Below VITALS:See Below PHYSICAL EXAMINATION: GENERAL: Sitting up in bed, alert, disheveled, no acute distress EYE EXAM: normal conjunctiva. PERRL and EOM's grossly intact. OROPHARYNX: mucous membranes are dry NECK: supple, no nuchal rigidity, no adenopathy, non-tender LUNGS: Clear to auscultation. Normal chest wall mechanics HEART: no murmurs, S1 normal and S2 normal ABDOMEN: abdomen soft, non-tender, normo-active bowel sounds, no masses, no rebound or guarding. UPPER EXTREMITIES: upper extremities are grossly normal. LOWER EXTREMITIES: No pitting edema. NEURO EXAM: In her baseline sitting up in bed nonverbal. MEDICAL DECISION MAKING: Patient is a 59-year-old female nonverbal from the [facility] who presents ER for nausea and vomiting. IV was established and blood work was obtained. Labs show a leukocytosis of 20,000. No anemia. BMP with a slightly elevated BUN at 28. LFTs and bilirubin were unremarkable. Lipase was normal. UA with nitrates leuks whites and bacteria likely consistent with a UTI consequently was given 2 g of cefepime. Patient was given fluids and Zofran. She was also given Reglan. CT eventually resulted several hours later and she had a small bowel obstruction. I had discussed case with the hospitalist for further evaluation management treatment. I did discuss with general surgery Dr. Lombardo as patient was being admitted. Control Tower Radio Operator was updated at bedside and patient was admitted for further workup. Of note while in the ER patient vomited several times and became hypoxic after this. Do question if there is aspiration. She dropped into the mid 80s. She was placed on 3 L OxyMask. Consults/Care Managements Discussions: Per MDM Triage Nursing notes reviewed. Limited review of prior medical records performed Vital Signs: reviewed and remarkable for tachy Differential diagnosis: Differential diagnoses includes but is not limited to gastritis, peptic ulcer disease, GERD, gallbladder disease, pancreatitis, small bowel obstruction, appendicitis, diverticulitis, hernia, urinary tract infection, torsion, perforation, trauma, infectious. ER treatment provided: See below Diagnostics interpreted by me include EKG and cardiac monitoring as listed below: -Cardiac Monitoring: An order was placed for continuous cardiac monitoring. The monitor shows a rate of 100 with sinus rhythm. -ECG: none -Laboratory studies:Interpreted by me as stated above in MDM and shown below. Imaging studies: Xrays: As interpreted by me:none CTs show: CT abdomen pelvis per my pleurae interpretation suggested large amount of dilated loops of bowel CT abdomen pelvis per radiology showed small bowel obstruction Procedures:none Critical Care: I have personally spent 33 minutes of critical care time in the direct management of this patient. This includes bedside care, interpretation of diagnostic studies, and testing, discussion with consultants, patient, and family members, and other required patient management activities. This 33 minutes is in excess of all separately billable procedures. Past Med/Surg History Problem List (Updated 02/22/25 @ 00:02 by Lakhwinder Gaffney DO) Hypoxia (Acute) Vomiting (Acute) Small bowel obstruction (Acute) Encounter for pre-operative examination Pyelonephritis Ureteral stent present (Acute) Acute UTI (Acute) Alcantara catheter in place (Acute) Hydronephrosis concurrent with and due to calculi of kidney and ureter (Acute) Bladder incontinence Nonverbal (Chronic) Medical History (Updated 02/22/25 @ 00:02 by Lakhwinder Gaffney DO) Candidal cystitis and urethritis Other abnormalities of gait and mobility Respiratory failure with hypoxia hx not known per facility, hospitalized [facility] december 2024. At current O2 sats while awake 95 % per facility. Bilateral pleural effusion Left ureteral calculus Complicated UTI (urinary tract infection) Osteoarthritis of hips, bilateral Autism Severe intellectual disability Nocturnal hypoxemia per facility while in hospital 12/2024, suspected sleep apnea, sats would drop at night. Denies occuring currently. Alcantara catheter in place History of sepsis hospitalized [facility] december 2024. Resolved per facility. History of pneumonia (12/2024) hospitalized at [facility]. december 2024. resolved per facility. Congenital hiatus hernia Umbilical hernia Hydronephrosis with renal and ureteral calculous obstruction Iron deficiency anemia Epilepsy Fatty (change of) liver, not elsewhere classified Psychomotor deficit Flat foot Other acquired deformity of toe toes Myopathy extraocular muscles right orbit Diplopia Other forms of scoliosis, lumbar region Pure hypercholesterolemia, unspecified Major depressive disorder, recurrent Hypermetropia, bilateral Diarrhea, unspecified Drug induced subacute dyskinesia Tremor, unspecified Restlessness and agitation GERD without esophagitis Deficiency of other vitamins Depression Constipation Unspecified cataract Lump of right breast Urinary incontinence Chronic pain Repeated falls facility denies fall in past 90 days. Astigmatism unspecified, right eye unspecified, left eye Chronic gum disease chronic gingivitis , plaque induced Dysphagia Anxiety disorder, unspecified OCD (obsessive compulsive disorder) Dementia unspecified Somnolence Polypharmacy Surgical History History of cystoscopy (~12/16/24) Cystoscopy with irrigation of bladder and catheter placement. Left ureteroscopy, Retrograde Pyelogram, Left Stent Placement, ureteral dilation, and aspiration of left kidney Grade 2 view, glidescope 3, ETT 7.0. Surgical history unknown Social History Smoking Status: Never smoker Preferred Language: Niuean Communication Ability: Unknown Communication Ability Comment: pt. nonverbal, sometimes cooperates with community health nurse staff Required: No Beliefs That Will Affect Care: None marital status: Single Current Living Situation: Personal Care Facility Current Living Situation Comment: [facility] current occupational status: disabled Feels Safe at Home: Yes Assistive Devices: Walker Allergies Allergies Allergy/AdvReac Type Severity Reaction Status Date / Time caffeine Allergy Unknown Unknown Verified 02/09/25 14:57 naproxen Allergy Unknown no rxn Verified 02/09/25 14:57 info listed NSAIDS (Non-Steroidal Allergy Unknown no rxn Verified 02/09/25 14:57 Anti-Inflamma listed Home Meds Home Medications Medication Instructions Recorded Confirmed acetaminophen 500 mg tablet 500 mg PO QAM chronic pain 12/15/24 02/21/25 aloe vera 1 applic topical Q1H PRN Sunburn 12/15/24 02/21/25 aluminum-mag hydroxide-simethicone 10 ml PO DIRECTED PRN 12/15/24 02/21/25 400 mg-400 mg-40 mg/5 mL oral susp Indigestion (Maalox Maximum Strength) bisacodyl 5 mg tablet,delayed 10 mg PO Q3D PRN Constipation 12/15/24 02/21/25 release (Dulcolax (bisacodyl)) chlorhexidine gluconate 0.12 % 1 applic buccal TID chronic 12/15/24 02/21/25 mouthwash gingivitis clobazam 10 mg tablet (Onfi) 5 mg PO HS 12/15/24 02/21/25 deutetrabenazine 36 mg 36 mg PO DAILY 12/15/24 02/21/25 tablet,extended release 24 hr (Austedo XR) docusate sodium 100 mg capsule 100 mg PO AMHS 12/15/24 02/21/25 famotidine 40 mg tablet (Pepcid) 40 mg PO DAILY 12/15/24 02/21/25 glycopyrrolate 1 mg tablet 1 mg PO TID excessive drooling 12/15/24 02/21/25 (Robinul) hydrocortisone 1 % topical cream 1 applic topical TID PRN Rash 12/15/24 02/21/25 lamotrigine 100 mg tablet 50 mg PO AMHS 12/15/24 02/21/25 lamotrigine 200 mg tablet 200 mg PO AMHS 12/15/24 02/21/25 (Lamictal) levetiracetam 1,000 mg tablet 1,000 mg PO BID 12/15/24 02/21/25 levetiracetam 500 mg tablet 500 mg PO BID 12/15/24 02/21/25 (Keppra) loperamide 2 mg capsule (Imodium 2 mg PO DIRECTED PRN Loose Stool 12/15/24 02/21/25 A-D) multivitamin 1 tab PO QAM 12/15/24 02/21/25 perphenazine 2 mg tablet 2 mg PO AMHS 12/15/24 02/21/25 perphenazine 4 mg tablet 4 mg PO HS 12/15/24 02/21/25 phosphorated carbohydrate oral 30 ml PO DIRECTED PRN Nausea 12/15/24 02/21/25 solution (Emetrol oral solution) polyethylene glycol 3350 17 17 g PO QAM 12/15/24 02/21/25 gram/dose oral powder (Miralax) quetiapine 200 mg tablet (Seroquel) 200 mg PO HS 12/15/24 02/21/25 quetiapine 50 mg tablet (Seroquel) 50 mg PO QAM 12/15/24 02/21/25 sertraline 100 mg tablet (Zoloft) 100 mg PO QAM 12/15/24 02/21/25 calcium polycarbophil 625 mg 625 mg PO QAM 01/05/25 02/21/25 tablet (FiberCon) neomycin-bacitracn Zn-polymyxn 3.5 1 applic topical BID PRN abrasion 01/05/25 02/21/25 mg-400 unit-5,000 unit top oint until resolved pkt (Triple Antibiotic) acetaminophen 500 mg tablet 1,000 mg PO Q4H PRN elevated 02/09/25 02/21/25 temp/headache/mild pain fluoride (sodium) 1.1 % dental 1 applic dental BID 02/09/25 02/21/25 cream (SF 5000 Plus) calcium 500 mg (as 1 tab PO QAM 02/21/25 02/21/25 carbonate)-vitamin D3 5 mcg (200 unit) tablet dextromethorphan-guaifenesin 10 5 ml PO Q4 PRN Cough 02/21/25 02/21/25 mg-200 mg/5 mL oral liquid nystatin 100,000 unit/gram topical 1 applic topical HS 02/21/25 02/21/25 cream Previous Rx's Medication Instructions Recorded cholecalciferol (vitamin D3) 125 125 mcg PO QAM #30 tabs 12/24/24 mcg (5,000 unit) tablet ferrous sulfate 325 mg (65 mg 325 mg PO BIDM #60 tabs 12/24/24 iron) tablet,delayed release Results & Data (ED) Vital Signs Vital Signs - 24 hr 02/21/25 19:20 02/21/25 19:42 02/21/25 19:43 Temperature 36.4 C L Temperature Source Temporal Artery Scan Pulse Rate 100 H 96 H 99 H Pulse Rate [Apical] Respiratory Rate 16 21 Respiratory Effort / Characteristics Non-Labored Respiratory Depth Normal Respiratory Pattern Blood Pressure 135/66 Blood Pressure [Right Arm] Blood Pressure Mean 89 Blood Pressure Mean [Right Arm] Blood Pressure Position [Right Arm] Pulse Oximetry 94 94 Oxygen Delivery Method Room Air Room Air Oxygen Flow Rate Sepsis Recent Fever Within 48 Hours No Sepsis New/Unexplained Change in Mental Status No Sepsis Action Taken by Nursing No Action Required 02/21/25 19:45 02/21/25 21:06 02/21/25 21:09 Temperature Temperature Source Pulse Rate 87 Pulse Rate [Apical] 99 H 93 H Respiratory Rate 21 22 24 Respiratory Effort / Characteristics Non-Labored Spontaneous Non-Labored Spontaneous Respiratory Depth Normal Normal Respiratory Pattern Regular Regular Blood Pressure Blood Pressure [Right Arm] 156/92 H 176/92 H Blood Pressure Mean Blood Pressure Mean [Right Arm] 113 120 Blood Pressure Position [Right Arm] Semi-fowlers Semi-fowlers Pulse Oximetry 94 87 L 92 Oxygen Delivery Method Room Air Room Air Room Air Oxygen Flow Rate Sepsis Recent Fever Within 48 Hours Sepsis New/Unexplained Change in Mental Status Sepsis Action Taken by Nursing 02/21/25 21:38 02/21/25 23:33 Temperature Temperature Source Pulse Rate 91 H 94 H Pulse Rate [Apical] Respiratory Rate 20 Respiratory Effort / Characteristics Respiratory Depth Respiratory Pattern Blood Pressure Blood Pressure [Right Arm] Blood Pressure Mean Blood Pressure Mean [Right Arm] Blood Pressure Position [Right Arm] Pulse Oximetry 97 Oxygen Delivery Method Oxymask Oxygen Flow Rate 3 Sepsis Recent Fever Within 48 Hours Sepsis New/Unexplained Change in Mental Status Sepsis Action Taken by Nursing Laboratory Data 02/21/25 19:50 02/21/25 20:40 Lab Results 02/21/25 02/21/25 02/21/25 Range/Units 19:50 20:40 21:10 WBC 20.04 H (4.8-10.8) K/ul RBC 4.35 (4.20-5.40) M/uL Hgb 12.8 (12.0-16.0) g/dl Hct 39.1 (37.0-47.0) % MCV 89.9 (80.0-100.0) fL MCH 29.4 (25.0-34.0) pg MCHC 32.7 (32.0-36.0) g/dL RDW Std Deviation 45.7 (36.4-46.3) fL RDW Coeff of Nic 14.0 (11.5-14.5) % Plt Count 396 (130-400) K/uL MPV 11.2 (9.4-12.4) fL Immature Gran % (Auto) 0.3 % Neut % (Auto) 87.5 % Lymph % (Auto) 6.1 % [place] % (Auto) 5.9 % Eos % (Auto) 0.0 % Baso % (Auto) 0.2 % Neut # (Auto) 17.50 H (1.40-6.50) K/uL Lymph # (Auto) 1.23 (1.20-3.40) K/uL [place] # (Auto) 1.19 H (0.11-0.59) K/uL Eos # (Auto) 0.01 (0.00-0.50) K/uL Baso # (Auto) 0.04 (0.00-0.20) K/uL Immature Gran # (Auto) 0.07 (0.01-0.20) K/uL Sodium 139 (136-145) mmol/L Potassium TNP 3.6 Chloride 99 (98-107) mmol/L Carbon Dioxide 28 (21-32) mmol/L Anion Gap 12 H (3-11) BUN 28 H (6-23) mg/dl Creatinine 0.70 (0.6-1.2) mg/dl Est Cr Clr Drug Dosing Not Reportable eGFR 99.57 BUN/Creatinine Ratio 40.0 H (10-20) Glucose 135 H (70-99(Fasting)) mg/dl Calcium 9.3 (8.6-10.3) mg/dl Total Bilirubin 0.2 (0.2-1.0) mg/dl AST TNP 14 ALT 11 (7-52) U/L Alkaline Phosphatase 155 H (34-104) U/L Total Protein 7.7 (6.0-8.3) gm/dl Albumin 4.5 (3.4-5.0) gm/dl Globulin 3.2 (2.5-4.0) gm/dl Albumin/Globulin Ratio 1.4 (0.9-2) Lipase 30 (11-82) U/L Urine Color Yellow Urine Appearance Turbid A (Clear) Urine pH 7.0 (4.5-7.5) Ur Specific [place] > 1.045 H (1.000-1.030) Urine Protein 2+ H (Negative) Urine Glucose (UA) Negative (Negative) Urine Ketones Trace H (Negative) Urine Blood 3+ H (Negative) Urine Nitrite Positive A (Negative) Urine Bilirubin Negative (Negative) Urine Urobilinogen Negative (Negative) Ur Leukocyte Esterase 3+ H (Negative) Urine WBC (Auto) >50 H (0-5) /hpf Urine RBC (Auto) >20 H (0-2) /hpf U Hyaline Cast (Auto) >20 H (0-2) /lpf U Epithel Cells (Auto) 6-10 H (0-2) /hpf Urine Bacteria (Auto) 4+ H (None Seen) Hyaline Casts Present A (None Presnt) /lpf Urine Mucus Present A (None Prsent) Urine Comment Administered Medications Discontinued Medications Sodium Chloride (Nss) 1,000 mls @ 999 mls/hr IV .Q1H1M ONE Stop: 02/21/25 20:35 Last Infusion: 02/21/25 21:10 Dose: Infused Documented By: Admin: 02/21/25 19:55 Dose: 999 mls/hr Documented By: NORMA Cefepime HCl (Maxipime 2000mg) 2,000 mg in 20 mls @ 5 mls/min IV NOW STA; Protocol Stop: 02/21/25 22:54 Last Admin: 02/21/25 23:02 Dose: 5 mls/min Documented By: NORMA Ioversol (Optiray 320 100ml) 93 ml IV ONCE ONE Stop: 02/21/25 20:48 Last Admin: 02/21/25 20:47 Dose: 93 ml Documented By: DANIEL Metoclopramide HCl (Metoclopramide Hcl Inj 5 Mg/Ml 2 Ml Vial) 10 mg IV NOW STA Stop: 02/21/25 22:28 Last Admin: 02/21/25 23:00 Dose: 10 mg Documented By: NORMA Ondansetron HCl (Ondansetron Inj 2 Mg/Ml 2 Ml Vial) 4 mg IV NOW STA Stop: 02/21/25 19:36 Last Admin: 02/21/25 20:07 Dose: 4 mg Documented By: NORMA Imaging Data Radiologist's Impression: Abdomen/Pelvis CT 02/21/25 19:35 Exam(s): CT ABDOMEN + PELVIS With Contrast IV Amt: 94ml EXAM: CT Abdomen and Pelvis With Intravenous Contrast CLINICAL HISTORY: Reason for exam: n/v/d nonverbal. TECHNIQUE: Axial computed tomography images of the abdomen and pelvis with intravenous contrast. CTDI is 23.23 mGy and DLP is 1203.36 mGy-cm. Automated exposure control was utilized for the study. A dose lowering technique was utilized adhering to the principles of ALARA. CONTRAST: Patient received 94ml of IV contrast COMPARISON: CT abdomen/pelvis: 09/25/2008 FINDINGS: Reduced diagnostic image quality due to motion and by patient's body characters. Lung bases: Bilateral mild bronchial wall cuffing and perihilar mild interstitial thickening. Likely calcified aortic and mitral valves. Gastroesophageal reflux of fluid. No consolidation.. No pleural effusion.. An elevated right hemidiaphragm. ABDOMEN: Liver: Unremarkable. No mass. Gallbladder and bile ducts: Unremarkable. No calcified stones. No ductal dilation. Pancreas: Diffusely atrophic pancreas. No contour deforming mass.. No ductal dilation. Spleen: Unremarkable. No splenomegaly. Adrenals: Unremarkable. No mass. Kidneys and ureters: A 5 mm right renal calculus in the lower pole calyx. Mild/moderate fullness of the left renal collecting system with a double pigtail ureteral catheter in situ. No solid mass. No right hydronephrosis. Stomach and bowel: A fluid/gas filled significantly distended stomach and multiple up to 3.5 cm dilated fluid/gas filled small bowel loops are seen throughout the abdomen and pelvis with a transition zone posteriorly in the pelvis, consistent with small bowel obstruction. (series 2 image 73). Liquid stool is seen in a borderline dilated ascending colon and gas in the transverse colon. No acute findings seen in the region of the appendix. PELVIS: Bladder: Empty with a Alcantara's catheter in situ. Reproductive: Markedly atrophic uterus. ABDOMEN and PELVIS: Intraperitoneal space: No free air. No significant fluid collection. Bones/joints: Moderately severe lumbar levoscoliosis with multilevel degenerative spondylitic changes. Moderately severe right hip osteoarthropathy with multiple subchondral cystic changes. No acute fracture. No dislocation. Soft tissues: Unremarkable. Vasculature: Diffusely calcified aortic atherosclerosis.. No abdominal aortic aneurysm. Lymph nodes: No significant enlarged lymph nodes.. IMPRESSION: Small bowel obstruction with a transition zone seen in the pelvis posteriorly. Liquid stool seen in a borderline distended ascending colon. Additional findings as described above. . Electronically signed by: Torrey Russell MD, ORTIZ 02/21/25 22:55 PM Discharge Plan Visit Data Chief Complaint: Vomiting Stated Complaint: N/V/D ED Provider: Lakhwinder Gaffney Discharge Problem: Small bowel obstruction, Nonverbal, Acute UTI, Vomiting, Hypoxia Condition: Fair Forms Stand Alone Forms: Replaced By [facility] Prescriptions Prescriptions: No Action multivitamin Tablet 1 tab PO QAM glycopyrrolate [Robinul] 1 mg tablet 1 mg PO TID perphenazine 2 mg tablet 2 mg PO AMHS lamotrigine [Lamictal] 200 mg tablet 200 mg PO AMHS Rx Instructions: Take 200mg w/ 50mg to equal 250mg by mouth twice daily loperamide [Imodium A-D] 2 mg Capsule 2 mg PO DIRECTED MDD 8mg/24hrs PRN (Reason: Loose Stool) Rx Instructions: 2 CAPLET AFTER FIRST LOOSE STOOL THEN 1 CAPLET AFTER EACH SUBSEQUENT LOOSE STOOL levetiracetam [Keppra] 500 mg tablet 500 mg PO BID Rx Instructions: Take 500mg w/ 1000mg to equal 1500mg by mouth twice daily famotidine [Pepcid] 40 mg tablet 40 mg PO DAILY Emetrol Solution 30 ml PO DIRECTED PRN (Reason: Nausea) Rx Instructions: Every 15 minutes UNTIL DISTRESS SUBSIDES sertraline [Zoloft] 100 mg tablet 100 mg PO QAM quetiapine [Seroquel] 200 mg tablet 200 mg PO HS acetaminophen 500 mg Tablet 500 mg PO QAM hydrocortisone 1 % Cream 1 applic TOPICAL TID PRN (Reason: Rash) perphenazine 4 mg tablet 4 mg PO HS docusate sodium 100 mg Capsule 100 mg PO AMHS Rx Instructions: Hold if loose stools bisacodyl [Dulcolax (bisacodyl)] 5 mg Tablet,Delayed Release (Dr/Ec) 10 mg PO Q3D PRN (Reason: Constipation) polyethylene glycol 3350 [Miralax] 17 gram/dose powder 17 g PO QAM Rx Instructions: Hold for loose stools aloe vera Gel 1 applic TOPICAL Q1H PRN (Reason: Sunburn) lamotrigine 100 mg tablet 50 mg PO AMHS Rx Instructions: Take 50mg w/ 200mg to equal 250mg by mouth twice daily alum-mag hydroxide-simeth [Maalox Maximum Strength] 400-400-40 mg/5 mL Suspension 10 ml PO DIRECTED MDD 60ml/24hrs PRN (Reason: Indigestion) Rx Instructions: Give 2 tsp by mouth as needed for indigestion between meals and at bedtime. chlorhexidine gluconate 0.12 % Mouthwash 1 applic BUCCAL TID Rx Instructions: Swab on teeth and gums after brushing quetiapine [Seroquel] 50 mg tablet 50 mg PO QAM levetiracetam 1,000 mg tablet 1,000 mg PO BID Rx Instructions: Take 1000mg w/ 500mg to equal 1500mg by mouth twice daily clobazam [Onfi] 10 mg tablet 5 mg PO HS [place] XR 36 mg tablet extended release 24 hr 36 mg PO DAILY ferrous sulfate 325 mg (65 mg iron) Tablet,Delayed Release (Dr/Ec) 325 mg PO BIDM Qty: 60 0RF cholecalciferol (vitamin D3) 125 mcg (5,000 unit) Tablet 125 mcg PO QAM Qty: 30 0RF fluoride (sodium) [SF 5000 Plus] 1.1 % Cream 1 applic DENTAL BID acetaminophen 500 mg tablet 1,000 mg PO Q4H MDD 3G PRN (Reason: elevated temp/headache/mild pain) dextromethorphan-guaifenesin [Robitussin Cough-Chest Jorge DM] 10-200 mg/5 mL Liquid 5 ml PO Q4 PRN (Reason: Cough) nystatin 100,000 unit/gram Cream 1 applic TOPICAL HS Rx Instructions: APPLY TO VAGINA TOPICALLY AT BEDTIME calcium carbonate-vitamin D3 500 mg-5 mcg (200 unit) Tablet 1 tab PO QAM calcium polycarbophil [FiberCon] 625 mg Tablet 625 mg PO QAM Triple Antibiotic 3.5-400-5,000 [id number] Ointment In Packet 1 applic TOPICAL BID PRN (Reason: abrasion until resolved) Referrals Referrals: Josh Holman MD [Primary Care Provider] - Discharge Problem: Vomiting Qualifiers: Vomiting type: unspecified Nausea presence: unspecified Qualified Code(s): R 11.10 - Vomiting, unspecified
[2025-02-21] MEDS: SODIUM CHLORIDE 0.9% 1,000 ML IV ONE (19:55)
[2025-02-21] MEDS: ONDANSETRON INJ 2 MG/ML 2 ML VIAL IV STA (20:07)
[2025-02-21 20:39] LABS: Alanine Aminotransferase 11 U/L (7-52); Albumin Globulin Ratio 1.4 (0.9-2); Alkaline Phosphatase 155 U/L (34-104); Anion Gap 12 (3-11); Bilirubin,Total 0.2 mg/dl (0.2-1.0); Blood Urea Nitrogen 28 mg/dl (6-23); Calcium 9.3 mg/dl (8.6-10.3); Carbon Dioxide 28 mmol/L (21-32); Chloride 99 mmol/L (98-107); Globulin 3.2 gm/dl (2.5-4.0); Glucose 135 mg/dl (70-99(Fasting)); Lipase 30 U/L (11-82); Sodium 139 mmol/L (136-145); Total Protein 7.7 gm/dl (6.0-8.3)
[2025-02-21] MEDS: OPTIRAY 320 100ml IV ONE (20:47)
[2025-02-21 21:04] LABS: Hematocrit (blood only) 39.1 % (37.0-47.0); Hemoglobin 12.8 g/dl (12.0-16.0); Immature Granulocytes # (auto) 0.07 K/uL (0.01-0.20); Immature Granulocytes % (auto) 0.3 %; Mean Corpuscular Hemoglobin 29.4 pg (25.0-34.0); Mean Corpuscular Volume 89.9 fL (80.0-100.0); Platelet Count 396 K/uL (130-400); RDW Standard Deviation 45.7 fL (36.4-46.3); Red Blood Count 4.35 M/uL (4.20-5.40); White Blood Count 20.04 K/ul (4.8-10.8)
[2025-02-21 21:15] LABS: Potassium 3.6 mmol/L (3.5-5.1)
[2025-02-21 21:56] LABS: Appearance Urine Turbid (Clear); Bacteria Urine Automated 4+ (None Seen); Cast Urine Automated >20 /lpf (0-2); Glucose Urine UA Negative (Negative); RBC Urine Automated >20 /hpf (0-2); WBC Urine Automated >50 /hpf (0-5)
--- NOTE | 2025-02-21 22:56 | CT Scan Report ---
Exam(s): CT ABDOMEN + PELVIS With Contrast IV Amt: 94ml EXAM: CT Abdomen and Pelvis With Intravenous Contrast CLINICAL HISTORY: Reason for exam: n/v/d nonverbal. TECHNIQUE: Axial computed tomography images of the abdomen and pelvis with intravenous contrast. CTDI is 23.23 mGy and DLP is 1203.36 mGy-cm. Automated exposure control was utilized for the study. A dose lowering technique was utilized adhering to the principles of ALARA. CONTRAST: Patient received 94ml of IV contrast COMPARISON: CT abdomen/pelvis: 09/25/2008 FINDINGS: Reduced diagnostic image quality due to motion and by patient's body characters. Lung bases: Bilateral mild bronchial wall cuffing and perihilar mild interstitial thickening. Likely calcified aortic and mitral valves. Gastroesophageal reflux of fluid. No consolidation.. No pleural effusion.. An elevated right hemidiaphragm. ABDOMEN: Liver: Unremarkable. No mass. Gallbladder and bile ducts: Unremarkable. No calcified stones. No ductal dilation. Pancreas: Diffusely atrophic pancreas. No contour deforming mass.. No ductal dilation. Spleen: Unremarkable. No splenomegaly. Adrenals: Unremarkable. No mass. Kidneys and ureters: A 5 mm right renal calculus in the lower pole calyx. Mild/moderate fullness of the left renal collecting system with a double pigtail ureteral catheter in situ. No solid mass. No right hydronephrosis. Stomach and bowel: A fluid/gas filled significantly distended stomach and multiple up to 3.5 cm dilated fluid/gas filled small bowel loops are seen throughout the abdomen and pelvis with a transition zone posteriorly in the pelvis, consistent with small bowel obstruction. (series 2 image 73). Liquid stool is seen in a borderline dilated ascending colon and gas in the transverse colon. No acute findings seen in the region of the appendix. PELVIS: Bladder: Empty with a Alcantara's catheter in situ. Reproductive: Markedly atrophic uterus. ABDOMEN and PELVIS: Intraperitoneal space: No free air. No significant fluid collection. Bones/joints: Moderately severe lumbar levoscoliosis with multilevel degenerative spondylitic changes. Moderately severe right hip osteoarthropathy with multiple subchondral cystic changes. No acute fracture. No dislocation. Soft tissues: Unremarkable. Vasculature: Diffusely calcified aortic atherosclerosis.. No abdominal aortic aneurysm. Lymph nodes: No significant enlarged lymph nodes.. IMPRESSION: Small bowel obstruction with a transition zone seen in the pelvis posteriorly. Liquid stool seen in a borderline distended ascending colon. Additional findings as described above. . Electronically signed by: Torrey Russell MD, YAHAIRAR 02/21/25 22:55 PM
[2025-02-21] MEDS: METOCLOPRAMIDE HCL INJ 5 MG/ML 2 ML VIAL IV STA (23:00)
[2025-02-21] MEDS: CEFEPIME 2000MG 2,000 MG/20 ML SYR IV STA (23:02)
--- NOTE | 2025-02-22 00:22 | History & Physical Report ---
Date of Service February 22, 2025 Assessment & Plan (1) Small bowel obstruction: Plan: 59-year-old female from [facility] with past medical history significant for severe intellectual disability, autism, epilepsy, recurrent MDD, OCD, mood disorder, history of SIADH, CKD stage III, GERD, sensorineural hearing loss of both ears, lesion of right lower liver, fecal and urinary incontinence, left nephrolithiasis, excessive salivation, osteoarthritis was brought in because patient was having lot of nausea and vomiting today. Patient was supposed to go for procedure for kidney stone removal but then she started to have nausea and vomiting today. Ureteral stent still in place as per the caregiver. As nausea and vomiting not getting better she was brought to the hospital today. As per the caregiver she had a small amount of diarrhea twice today. Patient seems uncomfortable. In the ER she was hypoxic requiring oxygen. Patient somewhat restless. Today caregiver noted some cough. Afebrile. Patient usually walks with a walker but last 6-month her ambulatory status declined as per the caregiver. Usually she is on soft diet. Her CAT scan came back as small bowel obstruction. UA is positive for UTI. Small bowel obstruction Came with nausea and vomiting CT scan showing small bowel obstruction N.p.o., IV fluids, pain control, IV antiemetics as needed Surgery consult. UTI Recently had left nephroureteral stent placement for kidney stones and had Pseudomonas UTI ER placed on cefepime which will be continued Follow cultures Follow-up with urology for kidney stone treatment when stable Hypoxia Possible aspiration On antibiotics as above Close monitor Chronic heart failure with preserved ejection fraction Getting fluids Monitor for volume overload Intellectual disability/, MDD,/OCD/, tardive dyskinesia Nonverba Continue home medications if able to take p.o. Epilepsy IV Keppra Continue home p.o. medications DVT prophylaxis Lovenox Disposition Med/telemetry Full code. History of Present Illness Chief Complaint: Nausea and vomiting Primary Care Provider: Josh Holman MD 59-year-old female from [facility] with past medical history significant for severe intellectual disability, autism, epilepsy, recurrent MDD, OCD, mood disorder, history of SIADH, CKD stage III, GERD, sensorineural hearing loss of both ears, lesion of right lower liver, fecal and urinary incontinence, left nephrolithiasis, excessive salivation, osteoarthritis was brought in because patient was having lot of nausea and vomiting today. Patient was supposed to go for procedure for kidney stone removal but then she started to have nausea and vomiting today. Ureteral stent still in place as per the caregiver. As nausea and vomiting not getting better she was brought to the hospital today. As per the caregiver she had a small amount of diarrhea twice today. Patient seems uncomfortable. In the ER she was hypoxic requiring oxygen. Patient somewhat restless. Today caregiver noted some cough. Afebrile. Patient usually walks with a walker but last 6-month her ambulatory status declined as per the caregiver. Usually she is on soft diet. Her CAT scan came back as small bowel obstruction. UA is positive for UTI. Past medical history. As mentioned above Past surgical history. EGD with endoscopic ultrasound. Social history. No smoking. No alcohol no drug use. Family history. Mother had cancer. Seizures. Allergies Allergy/AdvReac Type Severity Reaction Status Date / Time caffeine Allergy Unknown Unknown Verified 02/09/25 14:57 naproxen Allergy Unknown no rxn Verified 02/09/25 14:57 info listed NSAIDS (Non-Steroidal Allergy Unknown no rxn Verified 02/09/25 14:57 Anti-Inflamma listed Home Medications Medication Instructions Recorded Confirmed Type acetaminophen 500 mg tablet 500 mg PO QAM chronic pain 12/15/24 02/21/25 History aloe vera 1 applic topical Q1H PRN Sunburn 12/15/24 02/21/25 History aluminum-mag hydroxide-simethicone 10 ml PO DIRECTED PRN 12/15/24 02/21/25 History 400 mg-400 mg-40 mg/5 mL oral susp Indigestion (Maalox Maximum Strength) bisacodyl 5 mg tablet,delayed 10 mg PO Q3D PRN Constipation 12/15/24 02/21/25 History release (Dulcolax (bisacodyl)) chlorhexidine gluconate 0.12 % 1 applic buccal TID chronic 12/15/24 02/21/25 History mouthwash gingivitis clobazam 10 mg tablet (Onfi) 5 mg PO HS 12/15/24 02/21/25 History deutetrabenazine 36 mg 36 mg PO DAILY 12/15/24 02/21/25 History tablet,extended release 24 hr (Austedo XR) docusate sodium 100 mg capsule 100 mg PO AMHS 12/15/24 02/21/25 History famotidine 40 mg tablet (Pepcid) 40 mg PO DAILY 12/15/24 02/21/25 History glycopyrrolate 1 mg tablet 1 mg PO TID excessive drooling 12/15/24 02/21/25 History (Robinul) hydrocortisone 1 % topical cream 1 applic topical TID PRN Rash 12/15/24 02/21/25 History lamotrigine 100 mg tablet 50 mg PO AMHS 12/15/24 02/21/25 History lamotrigine 200 mg tablet 200 mg PO AMHS 12/15/24 02/21/25 History (Lamictal) levetiracetam 1,000 mg tablet 1,000 mg PO BID 12/15/24 02/21/25 History levetiracetam 500 mg tablet 500 mg PO BID 12/15/24 02/21/25 History (Keppra) loperamide 2 mg capsule (Imodium 2 mg PO DIRECTED PRN Loose Stool 12/15/24 02/21/25 History A-D) multivitamin 1 tab PO QAM 12/15/24 02/21/25 History perphenazine 2 mg tablet 2 mg PO AMHS 12/15/24 02/21/25 History perphenazine 4 mg tablet 4 mg PO HS 12/15/24 02/21/25 History phosphorated carbohydrate oral 30 ml PO DIRECTED PRN Nausea 12/15/24 02/21/25 History solution (Emetrol oral solution) polyethylene glycol 3350 17 17 g PO QAM 12/15/24 02/21/25 History gram/dose oral powder (Miralax) quetiapine 200 mg tablet (Seroquel) 200 mg PO HS 12/15/24 02/21/25 History quetiapine 50 mg tablet (Seroquel) 50 mg PO QAM 12/15/24 02/21/25 History sertraline 100 mg tablet (Zoloft) 100 mg PO QAM 12/15/24 02/21/25 History cholecalciferol (vitamin D3) 125 125 mcg PO QAM #30 tabs 12/24/24 02/21/25 Rx mcg (5,000 unit) tablet ferrous sulfate 325 mg (65 mg 325 mg PO BIDM #60 tabs 12/24/24 02/21/25 Rx iron) tablet,delayed release calcium polycarbophil 625 mg 625 mg PO QAM 01/05/25 02/21/25 History tablet (FiberCon) neomycin-bacitracn Zn-polymyxn 3.5 1 applic topical BID PRN abrasion 01/05/25 02/21/25 History mg-400 unit-5,000 unit top oint until resolved pkt (Triple Antibiotic) acetaminophen 500 mg tablet 1,000 mg PO Q4H PRN elevated 02/09/25 02/21/25 History temp/headache/mild pain fluoride (sodium) 1.1 % dental 1 applic dental BID 02/09/25 02/21/25 History cream (SF 5000 Plus) calcium 500 mg (as 1 tab PO QAM 02/21/25 02/21/25 History carbonate)-vitamin D3 5 mcg (200 unit) tablet dextromethorphan-guaifenesin 10 5 ml PO Q4 PRN Cough 02/21/25 02/21/25 History mg-200 mg/5 mL oral liquid nystatin 100,000 unit/gram topical 1 applic topical HS 02/21/25 02/21/25 History cream Past Med/Surg History Problem List (Updated 02/22/25 @ 00:02 by Lakhwinder Gaffney DO) Hypoxia (Acute) Vomiting (Acute) Small bowel obstruction (Acute) Encounter for pre-operative examination Pyelonephritis Ureteral stent present (Acute) Acute UTI (Acute) Alcantara catheter in place (Acute) Hydronephrosis concurrent with and due to calculi of kidney and ureter (Acute) Bladder incontinence Nonverbal (Chronic) Medical History (Updated 02/22/25 @ 00:02 by Lakhwinder Gaffney DO) Candidal cystitis and urethritis Other abnormalities of gait and mobility Respiratory failure with hypoxia hx not known per facility, hospitalized [facility] december 2024. At current O2 sats while awake 95 % per facility. Bilateral pleural effusion Left ureteral calculus Complicated UTI (urinary tract infection) Osteoarthritis of hips, bilateral Autism Severe intellectual disability Nocturnal hypoxemia per facility while in hospital 12/2024, suspected sleep apnea, sats would drop at night. Denies occuring currently. Alcantara catheter in place History of sepsis hospitalized [facility] december 2024. Resolved per facility. History of pneumonia (12/2024) hospitalized at [facility]. december 2024. resolved per facility. Congenital hiatus hernia Umbilical hernia Hydronephrosis with renal and ureteral calculous obstruction Iron deficiency anemia Epilepsy Fatty (change of) liver, not elsewhere classified Psychomotor deficit Flat foot Other acquired deformity of toe toes Myopathy extraocular muscles right orbit Diplopia Other forms of scoliosis, lumbar region Pure hypercholesterolemia, unspecified Major depressive disorder, recurrent Hypermetropia, bilateral Diarrhea, unspecified Drug induced subacute dyskinesia Tremor, unspecified Restlessness and agitation GERD without esophagitis Deficiency of other vitamins Depression Constipation Unspecified cataract Lump of right breast Urinary incontinence Chronic pain Repeated falls facility denies fall in past 90 days. Astigmatism unspecified, right eye unspecified, left eye Chronic gum disease chronic gingivitis , plaque induced Dysphagia Anxiety disorder, unspecified OCD (obsessive compulsive disorder) Dementia unspecified Somnolence Polypharmacy Surgical History History of cystoscopy (~12/16/24) Cystoscopy with irrigation of bladder and catheter placement. Left ureteroscopy, Retrograde Pyelogram, Left Stent Placement, ureteral dilation, and aspiration of left kidney Grade 2 view, glidescope 3, ETT 7.0. Surgical history unknown Social History Smoking Status: Unknown if ever smoked Hx Alcohol Use: No Hx Substance Use: No Preferred Language: Cam[place]onian Communication Ability: non-verbal Communication Ability Comment: pt. nonverbal, sometimes cooperates with staff midwife/apprenticeship director Required: No Beliefs That Will Affect Care: None marital status: Single Current Living Situation: Other Current Living Situation Comment: shelter current occupational status: disabled Feels Safe at Home: Yes Assistive Devices: Walker Assistive Devices Comment: Assist x2 Review of Systems Review of Systems: Unobtainable due to cognitive status Physical Exam Physical Exam: General-Non verbal, restless Head- atraumatic Eyes- PERRL. ENT- oropharynx clear Neck- supple, no JVD. Lungs- clear to auscultation no wheezing or crackles. Heart- regular rhythm; no murmur, no gallop Abdomen- sluggish bowel sounds, distended Extremities- no pretibial edema, no erythema seen Neuro- alert, and awake, restless, non verbal, moves extremities Results & Data Results & Data Vital Signs (Past 12 Hours) Vital Signs Temp Pulse Pulse Resp BP BP Pulse Ox 02/21/25 23:33 94 H 02/21/25 21:38 91 H 20 97 02/21/25 21:09 93 H 24 176/92 H 92 02/21/25 21:06 87 22 87 L 02/21/25 19:45 99 H 21 156/92 H 94 02/21/25 19:43 99 H 21 94 02/21/25 19:42 96 H 02/21/25 19:20 36.4 C L 100 H 16 135/66 94 O2 Del Method O2 Flow Rate 02/21/25 23:33 02/21/25 21:38 Oxymask 3 02/21/25 21:09 Room Air 02/21/25 21:06 Room Air 02/21/25 19:45 Room Air 02/21/25 19:43 Room Air 02/21/25 19:42 02/21/25 19:20 Room Air Diagnostic Findings Laboratory Results WBC 20.04 K/ul (4.8-10.8) H 02/21/25 19:50 RBC 4.35 M/uL (4.20-5.40) 02/21/25 19:50 Hgb 12.8 g/dl (12.0-16.0) 02/21/25 19:50 Hct 39.1 % (37.0-47.0) 02/21/25 19:50 MCV 89.9 fL (80.0-100.0) 02/21/25 19:50 MCH 29.4 pg (25.0-34.0) 02/21/25 19:50 MCHC 32.7 g/dL (32.0-36.0) 02/21/25 19:50 RDW Std Deviation 45.7 fL (36.4-46.3) 02/21/25 19:50 RDW Coeff of Nic 14.0 % (11.5-14.5) 02/21/25 19:50 Plt Count 396 K/uL (130-400) 02/21/25 19:50 MPV 11.2 fL (9.4-12.4) 02/21/25 19:50 Immature Gran % (Auto) 0.3 % 02/21/25 19:50 Neut % (Auto) 87.5 % 02/21/25 19:50 Lymph % (Auto) 6.1 % 02/21/25 19:50 [place] % (Auto) 5.9 % 02/21/25 19:50 Eos % (Auto) 0.0 % 02/21/25 19:50 Baso % (Auto) 0.2 % 02/21/25 19:50 Neut # (Auto) 17.50 K/uL (1.40-6.50) H 02/21/25 19:50 Lymph # (Auto) 1.23 K/uL (1.20-3.40) 02/21/25 19:50 [place] # (Auto) 1.19 K/uL (0.11-0.59) H 02/21/25 19:50 Eos # (Auto) 0.01 K/uL (0.00-0.50) 02/21/25 19:50 Baso # (Auto) 0.04 K/uL (0.00-0.20) 02/21/25 19:50 Immature Gran # (Auto) 0.07 K/uL (0.01-0.20) 02/21/25 19:50 Sodium 139 mmol/L (136-145) 02/21/25 19:50 Potassium 3.6 mmol/L (3.5-5.1) 02/21/25 20:40 Chloride 99 mmol/L (98-107) 02/21/25 19:50 Carbon Dioxide 28 mmol/L (21-32) 02/21/25 19:50 Anion Gap 12 (3-11) H 02/21/25 19:50 BUN 28 mg/dl (6-23) H 02/21/25 19:50 Creatinine 0.70 mg/dl (0.6-1.2) 02/21/25 19:50 Est Cr Clr Drug Dosing Not Reportable 02/21/25 19:50 eGFR 99.57 02/21/25 19:50 BUN/Creatinine Ratio 40.0 (10-20) H 02/21/25 19:50 Glucose 135 mg/dl (70-99(Fasting)) H 02/21/25 19:50 Calcium 9.3 mg/dl (8.6-10.3) 02/21/25 19:50 Total Bilirubin 0.2 mg/dl (0.2-1.0) 02/21/25 19:50 AST 14 U/L (13-39) 02/21/25 20:40 ALT 11 U/L (7-52) 02/21/25 19:50 Alkaline Phosphatase 155 U/L (34-104) H 02/21/25 19:50 Total Protein 7.7 gm/dl (6.0-8.3) 02/21/25 19:50 Albumin 4.5 gm/dl (3.4-5.0) 02/21/25 19:50 Globulin 3.2 gm/dl (2.5-4.0) 02/21/25 19:50 Albumin/Globulin Ratio 1.4 (0.9-2) 02/21/25 19:50 Lipase 30 U/L (11-82) 02/21/25 19:50 Urine Color Yellow 02/21/25 21:10 Urine Appearance Turbid (Clear) A 02/21/25 21:10 Urine pH 7.0 (4.5-7.5) 02/21/25 21:10 Ur Specific [place] > 1.045 (1.000-1.030) H 02/21/25 21:10 Urine Protein 2+ (Negative) H 02/21/25 21:10 Urine Glucose (UA) Negative (Negative) 02/21/25 21:10 Urine Ketones Trace (Negative) H 02/21/25 21:10 Urine Blood 3+ (Negative) H 02/21/25 21:10 Urine Nitrite Positive (Negative) A 02/21/25 21:10 Urine Bilirubin Negative (Negative) 02/21/25 21:10 Urine Urobilinogen Negative (Negative) 02/21/25 21:10 Ur Leukocyte Esterase 3+ (Negative) H 02/21/25 21:10 Urine WBC (Auto) >50 /hpf (0-5) H 02/21/25 21:10 Urine RBC (Auto) >20 /hpf (0-2) H 02/21/25 21:10 U Hyaline Cast (Auto) >20 /lpf (0-2) H 02/21/25 21:10 U Epithel Cells (Auto) 6-10 /hpf (0-2) H 02/21/25 21:10 Urine Bacteria (Auto) 4+ (None Seen) H 02/21/25 21:10 Hyaline Casts Present /lpf (None Presnt) A 02/21/25 21:10 Urine Mucus Present (None Prsent) A 02/21/25 21:10 Urine Comment 02/21/25 21:10 Impressions Abdomen/Pelvis CT 02/21/25 19:35 Exam(s): CT ABDOMEN + PELVIS With Contrast IV Amt: 94ml EXAM: CT Abdomen and Pelvis With Intravenous Contrast CLINICAL HISTORY: Reason for exam: n/v/d nonverbal. TECHNIQUE: Axial computed tomography images of the abdomen and pelvis with intravenous contrast. CTDI is 23.23 mGy and DLP is 1203.36 mGy-cm. Automated exposure control was utilized for the study. A dose lowering technique was utilized adhering to the principles of ALARA. CONTRAST: Patient received 94ml of IV contrast COMPARISON: CT abdomen/pelvis: 09/25/2008 FINDINGS: Reduced diagnostic image quality due to motion and by patient's body characters. Lung bases: Bilateral mild bronchial wall cuffing and perihilar mild interstitial thickening. Likely calcified aortic and mitral valves. Gastroesophageal reflux of fluid. No consolidation.. No pleural effusion.. An elevated right hemidiaphragm. ABDOMEN: Liver: Unremarkable. No mass. Gallbladder and bile ducts: Unremarkable. No calcified stones. No ductal dilation. Pancreas: Diffusely atrophic pancreas. No contour deforming mass.. No ductal dilation. Spleen: Unremarkable. No splenomegaly. Adrenals: Unremarkable. No mass. Kidneys and ureters: A 5 mm right renal calculus in the lower pole calyx. Mild/moderate fullness of the left renal collecting system with a double pigtail ureteral catheter in situ. No solid mass. No right hydronephrosis. Stomach and bowel: A fluid/gas filled significantly distended stomach and multiple up to 3.5 cm dilated fluid/gas filled small bowel loops are seen throughout the abdomen and pelvis with a transition zone posteriorly in the pelvis, consistent with small bowel obstruction. (series 2 image 73). Liquid stool is seen in a borderline dilated ascending colon and gas in the transverse colon. No acute findings seen in the region of the appendix. PELVIS: Bladder: Empty with a Alcantara's catheter in situ. Reproductive: Markedly atrophic uterus. ABDOMEN and PELVIS: Intraperitoneal space: No free air. No significant fluid collection. Bones/joints: Moderately severe lumbar levoscoliosis with multilevel degenerative spondylitic changes. Moderately severe right hip osteoarthropathy with multiple subchondral cystic changes. No acute fracture. No dislocation. Soft tissues: Unremarkable. Vasculature: Diffusely calcified aortic atherosclerosis.. No abdominal aortic aneurysm. Lymph nodes: No significant enlarged lymph nodes.. IMPRESSION: Small bowel obstruction with a transition zone seen in the pelvis posteriorly. Liquid stool seen in a borderline distended ascending colon. Additional findings as described above. . Electronically signed by: Torrey Russell MD, YAHAIRAR 02/21/25 22:55 PM Code Status & VTE Plan VTE Prophylaxis Plan VTE Prophylaxis will be ordered: Yes
[2025-02-22] MEDS ORDERED: NITROGLYCERIN SL 0.4 MG/TAB TAB SL PRN (00:59)
[2025-02-22] MEDS ORDERED: Patient's HEIGHT &/or WEIGHT Needed STA (01:12)
[2025-02-22] MEDS: SODIUM CHLORIDE 0.9% 1,000 ML IV SCH (01:45)
--- NOTE | 2025-02-22 02:02 | XRay Report ---
Exam(s): XR CXR 1 VIEW EXAM: XR Chest, 1 View CLINICAL HISTORY: Reason for exam: ? aspiration. TECHNIQUE: Frontal view of the chest. COMPARISON: Chest radiograph on 04/03/2023 FINDINGS: Hardware: None. Lungs/pleura: Bilateral lung opacities. Heart/mediastinum: Probable mild enlargement of the cardiac silhouette. Soft tissues: Unremarkable. Bones: No acute fracture. Upper abdomen: Normal. IMPRESSION: Bilateral lung opacities may represent atelectasis versus pneumonia versus edema. Pleural effusions not excluded. Electronically signed by: Royal Gordon M.D. 02/22/25 02:00 AM
[2025-02-22] MEDS: ACETAMINOPHEN 1,000 MG/100 ML VIAL IV PRN (03:57)
[2025-02-22 04:31] LABS: Hematocrit (blood only) 34.3 % (37.0-47.0); Hemoglobin 11.1 g/dl (12.0-16.0); Mean Corpuscular Hemoglobin 29.2 pg (25.0-34.0); Mean Corpuscular Volume 90.3 fL (80.0-100.0); Platelet Count 319 K/uL (130-400); RDW Standard Deviation 46.4 fL (36.4-46.3); Red Blood Count 3.80 M/uL (4.20-5.40); White Blood Count 18.82 K/ul (4.8-10.8)
[2025-02-22 04:48] LABS: Anion Gap 6.0 (3-11); Blood Urea Nitrogen 27.0 mg/dl (6-23); Calcium 8.1 mg/dl (8.6-10.3); Carbon Dioxide 31.0 mmol/L (21-32); Chloride 102.0 mmol/L (98-107); Creatinine Clr Calc Pharmacy 96.9 ml/min; Glucose 158.0 mg/dl (70-99(Fasting)); Magnesium 1.5 mg/dl (1.7-2.4); Potassium 3.3 mmol/L (3.5-5.1); Sodium 139.0 mmol/L (136-145)
[2025-02-22 05:07] LABS: Immature Granulocytes # (auto) 0.09 K/uL (0.01-0.20); Immature Granulocytes % (auto) 0.5 %; Polychromasia 1+; Tear Drop Cells 1+
[2025-02-22] MEDS: CEFEPIME 2000MG 2,000 MG/20 ML SYR IV SCH (05:20)
[2025-02-22] MEDS: POTASSIUM CHLORIDE / WTR 10 MEQ/100 ML PLCT IV SCH (08:04)
[2025-02-22] MEDS: MAGNESIUM SULFATE / D5W 1 GM/100 ML BAG IV ONE (08:04)
[2025-02-22] MEDS: ENOXAPARIN INJ 40 MG/0.4 ML SYR SQ SCH (08:05)
[2025-02-22] MEDS: lamoTRIgine 25 MG TAB PO SCH (08:05)
[2025-02-22] MEDS: GLYCOPYRROLATE 1 MG TAB PO SCH (08:06)
[2025-02-22] MEDS: lamoTRIgine 100 MG TAB PO SCH (08:06)
[2025-02-22] MEDS: SERTRALINE HCL 100 MG TABLET PO SCH (08:06)
[2025-02-22] MEDS: PERPHENAZINE 2 MG TAB PO SCH (08:09)
--- NOTE | 2025-02-22 08:59 | Surgery Consultation ---
Date of Consultation February 22, 2025 Assessment & Plan (1) Small bowel obstruction: Recommend -NPO -IVF -NG placement -OOB as tolerated -limit narcotics -serial KUBs History of Present Illness Attending Physician: Shanika Michael MD History of Present Illness This is a 59YO admitted from ED for a SBO, previous history of hydronephrosis with ureteral stent. She is non-verbal and began having vomiting and diarrhea persistently. No fevers per caregiver. Unable to obtain history from the patient as she is nonverbal but history is given by pattern filer. He notes that she has been acting appropriately other than the vomiting and diarrhea. CT scan shows possible SBO. Allergies Allergy/AdvReac Type Severity Reaction Status Date / Time caffeine Allergy Unknown Unknown Verified 02/09/25 14:57 naproxen Allergy Unknown no rxn Verified 02/09/25 14:57 info listed NSAIDS (Non-Steroidal Allergy Unknown no rxn Verified 02/09/25 14:57 Anti-Inflamma listed Home Medications Medication Instructions Recorded Confirmed Type acetaminophen 500 mg tablet 500 mg PO QAM chronic pain 12/15/24 02/21/25 History aloe vera 1 applic topical Q1H PRN Sunburn 12/15/24 02/21/25 History aluminum-mag hydroxide-simethicone 10 ml PO DIRECTED PRN 12/15/24 02/21/25 History 400 mg-400 mg-40 mg/5 mL oral susp Indigestion (Maalox Maximum Strength) bisacodyl 5 mg tablet,delayed 10 mg PO Q3D PRN Constipation 12/15/24 02/21/25 History release (Dulcolax (bisacodyl)) chlorhexidine gluconate 0.12 % 1 applic buccal TID chronic 12/15/24 02/21/25 History mouthwash gingivitis clobazam 10 mg tablet (Onfi) 5 mg PO HS 12/15/24 02/21/25 History deutetrabenazine 36 mg 36 mg PO DAILY 12/15/24 02/21/25 History tablet,extended release 24 hr (Austedo XR) docusate sodium 100 mg capsule 100 mg PO AMHS 12/15/24 02/21/25 History famotidine 40 mg tablet (Pepcid) 40 mg PO DAILY 12/15/24 02/21/25 History glycopyrrolate 1 mg tablet 1 mg PO TID excessive drooling 12/15/24 02/21/25 History (Robinul) hydrocortisone 1 % topical cream 1 applic topical TID PRN Rash 12/15/24 02/21/25 History lamotrigine 100 mg tablet 50 mg PO AMHS 12/15/24 02/21/25 History lamotrigine 200 mg tablet 200 mg PO AMHS 12/15/24 02/21/25 History (Lamictal) levetiracetam 1,000 mg tablet 1,000 mg PO BID 12/15/24 02/21/25 History levetiracetam 500 mg tablet 500 mg PO BID 12/15/24 02/21/25 History (Keppra) loperamide 2 mg capsule (Imodium 2 mg PO DIRECTED PRN Loose Stool 12/15/24 02/21/25 History A-D) multivitamin 1 tab PO QAM 12/15/24 02/21/25 History perphenazine 2 mg tablet 2 mg PO AMHS 12/15/24 02/21/25 History perphenazine 4 mg tablet 4 mg PO HS 12/15/24 02/21/25 History phosphorated carbohydrate oral 30 ml PO DIRECTED PRN Nausea 12/15/24 02/21/25 History solution (Emetrol oral solution) polyethylene glycol 3350 17 17 g PO QAM 12/15/24 02/21/25 History gram/dose oral powder (Miralax) quetiapine 200 mg tablet (Seroquel) 200 mg PO HS 12/15/24 02/21/25 History quetiapine 50 mg tablet (Seroquel) 50 mg PO QAM 12/15/24 02/21/25 History sertraline 100 mg tablet (Zoloft) 100 mg PO QAM 12/15/24 02/21/25 History cholecalciferol (vitamin D3) 125 125 mcg PO QAM #30 tabs 12/24/24 02/21/25 Rx mcg (5,000 unit) tablet ferrous sulfate 325 mg (65 mg 325 mg PO BIDM #60 tabs 12/24/24 02/21/25 Rx iron) tablet,delayed release calcium polycarbophil 625 mg 625 mg PO QAM 01/05/25 02/21/25 History tablet (FiberCon) neomycin-bacitracn Zn-polymyxn 3.5 1 applic topical BID PRN abrasion 01/05/25 02/21/25 History mg-400 unit-5,000 unit top oint until resolved pkt (Triple Antibiotic) acetaminophen 500 mg tablet 1,000 mg PO Q4H PRN elevated 02/09/25 02/21/25 History temp/headache/mild pain fluoride (sodium) 1.1 % dental 1 applic dental BID 02/09/25 02/21/25 History cream (SF 5000 Plus) calcium 500 mg (as 1 tab PO QAM 02/21/25 02/21/25 History carbonate)-vitamin D3 5 mcg (200 unit) tablet dextromethorphan-guaifenesin 10 5 ml PO Q4 PRN Cough 02/21/25 02/21/25 History mg-200 mg/5 mL oral liquid nystatin 100,000 unit/gram topical 1 applic topical HS 02/21/25 02/21/25 History cream Patient History Medical History (Updated 02/22/25 @ 00:02 by Lakhwinder Gaffney DO) Candidal cystitis and urethritis Other abnormalities of gait and mobility Respiratory failure with hypoxia hx not known per facility, hospitalized [facility] december 2024. At current O2 sats while awake 95 % per facility. Bilateral pleural effusion Left ureteral calculus Complicated UTI (urinary tract infection) Osteoarthritis of hips, bilateral Autism Severe intellectual disability Nocturnal hypoxemia per facility while in hospital 12/2024, suspected sleep apnea, sats would drop at night. Denies occuring currently. Alcantara catheter in place History of sepsis hospitalized [facility] december 2024. Resolved per facility. History of pneumonia (12/2024) hospitalized at [facility]. december 2024. resolved per facility. Congenital hiatus hernia Umbilical hernia Hydronephrosis with renal and ureteral calculous obstruction Iron deficiency anemia Epilepsy Fatty (change of) liver, not elsewhere classified Psychomotor deficit Flat foot Other acquired deformity of toe toes Myopathy extraocular muscles right orbit Diplopia Other forms of scoliosis, lumbar region Pure hypercholesterolemia, unspecified Major depressive disorder, recurrent Hypermetropia, bilateral Diarrhea, unspecified Drug induced subacute dyskinesia Tremor, unspecified Restlessness and agitation GERD without esophagitis Deficiency of other vitamins Depression Constipation Unspecified cataract Lump of right breast Urinary incontinence Chronic pain Repeated falls facility denies fall in past 90 days. Astigmatism unspecified, right eye unspecified, left eye Chronic gum disease chronic gingivitis , plaque induced Dysphagia Anxiety disorder, unspecified OCD (obsessive compulsive disorder) Dementia unspecified Somnolence Polypharmacy Surgical History History of cystoscopy (~12/16/24) Cystoscopy with irrigation of bladder and catheter placement. Left ureteroscopy, Retrograde Pyelogram, Left Stent Placement, ureteral dilation, and aspiration of left kidney Grade 2 view, glidescope 3, ETT 7.0. Surgical history unknown Social History Smoking Status: Unknown if ever smoked Hx Alcohol Use: No Hx Substance Use: No Preferred Language: [place] Communication Ability: non-verbal Communication Ability Comment: pt. nonverbal, sometimes cooperates with rn staff Required: No Beliefs That Will Affect Care: None marital status: Single Current Living Situation: Other Current Living Situation Comment: custodial current occupational status: disabled Feels Safe at Home: Yes Assistive Devices: Walker Assistive Devices Comment: Assist x2 Review of Systems Constitutional: no fever Respiratory: no dyspnea Gastrointestinal: + vomiting and + diarrhea/loose stools Neurologic: no generalized weakness Psychiatric: no behavioral changes Physical Exam Constitutional: WD/WN, vitals as above Eyes: no scleral abnormality ENMT: external ear and nose normal, oropharynx normal Neck: trachea midline Respiratory: normal respiratory effort, lungs clear to auscultation Cardiovascular: RRR, no murmur, no edema Gastrointestinal (Abdomen): Inspection/Auscultation: abdomen normal to inspection, + abdomen distended and normal bowel sounds Percussion/Palpation: abdomen soft; abdomen nontender, no guarding and abdomen not rigid Musculoskeletal: Head/Neck/Chest: normocephalic and head atraumatic Skin: no rashes, warm and dry Results & Data Vital Signs (Past 12 Hours) Vital Signs Temp Pulse Pulse Resp BP Pulse Ox Pulse Ox 02/22/25 07:14 36.9 C 99 H 30 H 161/79 H 92 02/22/25 07:08 97 H 02/22/25 05:00 94 H 20 139/76 95 02/22/25 03:00 37.0 C 92 H 20 161/83 H 94 02/22/25 01:33 91 02/22/25 01:18 37.1 C 95 H 20 154/104 H 88 L 02/22/25 00:59 02/21/25 23:33 94 H 02/21/25 23:00 90 20 174/91 H 91 02/21/25 21:38 91 H 20 97 02/21/25 21:09 93 H 24 176/92 H 92 02/21/25 21:06 87 22 87 L O2 Del Method O2 Del Method O2 Flow Rate 02/22/25 07:14 Other 02/22/25 07:08 02/22/25 05:00 Free Flow/Blow-by 4 02/22/25 03:00 Free Flow/Blow-by 4 02/22/25 01:33 Room Air 02/22/25 01:18 Room Air 02/22/25 00:59 Oxymask 02/21/25 23:33 02/21/25 23:00 Nasal Cannula 2 02/21/25 21:38 Oxymask 3 02/21/25 21:09 Room Air 02/21/25 21:06 Room Air Diagnostic Findings Exam(s): CT ABDOMEN + PELVIS With Contrast IV Amt: 94ml EXAM: CT Abdomen and Pelvis With Intravenous Contrast CLINICAL HISTORY: Reason for exam: n/v/d nonverbal. TECHNIQUE: Axial computed tomography images of the abdomen and pelvis with intravenous contrast. CTDI is 23.23 mGy and DLP is 1203.36 mGy-cm. Automated exposure control was utilized for the study. A dose lowering technique was utilized adhering to the principles of ALARA. CONTRAST: Patient received 94ml of IV contrast COMPARISON: CT abdomen/pelvis: 09/25/2008 FINDINGS: Reduced diagnostic image quality due to motion and by patient's body characters. Lung bases: Bilateral mild bronchial wall cuffing and perihilar mild interstitial thickening. Likely calcified aortic and mitral valves. Gastroesophageal reflux of fluid. No consolidation.. No pleural effusion.. An elevated right hemidiaphragm. ABDOMEN: Liver: Unremarkable. No mass. Gallbladder and bile ducts: Unremarkable. No calcified stones. No ductal dilation. Pancreas: Diffusely atrophic pancreas. No contour deforming mass.. No ductal dilation. Spleen: Unremarkable. No splenomegaly. Adrenals: Unremarkable. No mass. Kidneys and ureters: A 5 mm right renal calculus in the lower pole calyx. Mild/moderate fullness of the left renal collecting system with a double pigtail ureteral catheter in situ. No solid mass. No right hydronephrosis. Stomach and bowel: A fluid/gas filled significantly distended stomach and multiple up to 3.5 cm dilated fluid/gas filled small bowel loops are seen throughout the abdomen and pelvis with a transition zone posteriorly in the pelvis, consistent with small bowel obstruction. (series 2 image 73). Liquid stool is seen in a borderline dilated ascending colon and gas in the transverse colon. No acute findings seen in the region of the appendix. PELVIS: Bladder: Empty with a Alcantara's catheter in situ. Reproductive: Markedly atrophic uterus. ABDOMEN and PELVIS: Intraperitoneal space: No free air. No significant fluid collection. Bones/joints: Moderately severe lumbar levoscoliosis with multilevel degenerative spondylitic changes. Moderately severe right hip osteoarthropathy with multiple subchondral cystic changes. No acute fracture. No dislocation. Soft tissues: Unremarkable. Vasculature: Diffusely calcified aortic atherosclerosis.. No abdominal aortic aneurysm. Lymph nodes: No significant enlarged lymph nodes.. IMPRESSION: Small bowel obstruction with a transition zone seen in the pelvis posteriorly. Liquid stool seen in a borderline distended ascending colon.
--- NOTE | 2025-02-22 09:29 | Communication Note ---
Date of Service: February 22, 2025 Patient seen and examined Patient is nonverbal. RN reports vomiting episodes overnight Exam notable for tachypnea, diminished breath sound, on room air, abd is distended with reduced bowel sounds. Discussed with RN. Place NGT to LIS. If needed, place mitts to avoid pulling NGT Has leukocytosis, elevated RR. Get sepsis workup - blood cultures, lactate, p rocal. Follow up urine culture Continue IVF, NPO Continue cefepime Add flagyl Replete hypokalemia Other plans as detailed in H/P this AM
[2025-02-22] MEDS: metroNIDAZOLE 500 MG/100 ML BAG IV SCH (09:47)
[2025-02-22] MEDS: DEUTETRABENAZINE PO SCH (14:11)
[2025-02-22] MEDS: PERPHENAZINE 4 MG TAB PO SCH (20:16)
[2025-02-22] MEDS: cloBAZam 5 MG TAB PO SCH (20:40)
[2025-02-23 08:03] LABS: Hematocrit (blood only) 25.7 % (37.0-47.0); Hemoglobin 8.2 g/dl (12.0-16.0); Mean Corpuscular Hemoglobin 29.7 pg (25.0-34.0); Mean Corpuscular Volume 93.1 fL (80.0-100.0); Platelet Count 197 K/uL (130-400); RDW Standard Deviation 48.0 fL (36.4-46.3); Red Blood Count 2.76 M/uL (4.20-5.40); White Blood Count 9.58 K/ul (4.8-10.8)
[2025-02-23 08:47] LABS: Alanine Aminotransferase 6.0 U/L (7-52); Albumin Globulin Ratio 1.6 (0.9-2); Alkaline Phosphatase 80.0 U/L (34-104); Anion Gap 3.0 (3-11); Bilirubin,Total 0.2 mg/dl (0.2-1.0); Blood Urea Nitrogen 30.0 mg/dl (6-23); Calcium 7.9 mg/dl (8.6-10.3); Carbon Dioxide 28.0 mmol/L (21-32); Chloride 114.0 mmol/L (98-107); Creatinine Clr Calc Pharmacy 83.0 ml/min; Globulin 1.9 gm/dl (2.5-4.0); Glucose 86.0 mg/dl (70-99(Fasting)); Magnesium 1.9 mg/dl (1.7-2.4); Potassium 3.9 mmol/L (3.5-5.1); Sodium 145.0 mmol/L (136-145); Total Protein 4.9 gm/dl (6.0-8.3)
[2025-02-23] MEDS ORDERED: DEUTETRABENAZINE PO SCH (09:00)
--- NOTE | 2025-02-23 10:35 | XRay Report ---
KUB HISTORY: Acute generalized abdominal pain with small bowel obstruction SBO COMPARISON: CT 02/21/2025 FINDINGS: Distal tip of enteric tube projects over the expected location of the mid stomach. Cardiome wicho. Air-filled loops of large and small bowel. There is mild gaseous distention of the large bowel with transverse colon measuring up to 7 cm. Left renal stent appears to be in satisfactory positioni ng. Bilateral nephrolithiasis redemonstrated. No ureteral calculi are seen. No pneumoperitoneum or pn eumatosis. Severe osteoarthritis of the right hip. No fracture. IMPRESSION: 1. Satisfactory positioning of the enteric tube. The bowel gas pattern appears nonobstructive on toda y's study. 2. Satisfactory positioning of the left ureteral stent. 3. Bilateral nephrolithiasis. ACT 112: Negative or not required by law. The above report was generated using voice recognition software. It may contain grammatical, syntax o r spelling errors. Electronically signed by: Vince Cervantes M.D. 02/23/2025 10:34 AM
[2025-02-23] MEDS: Nursing to Pharmacy Communication SCH (10:45)
--- NOTE | 2025-02-23 10:46 | Surgery Progress Note ---
Date of Service February 23, 2025 Assessment & Plan (1) Small bowel obstruction: Plan: NG in place await bowel function with BM con't NG; possibly out in AM AF VSS WBC nL possible UTI/pneumonia contributing to ileus Admission and Anticipated Discharge Date Admission Date: February 22, 2025 Subjective non communicative Review of Systems Constitutional: no fever and no chills Physical Exam Constitutional: WD/WN, vitals as above Eyes: no scleral abnormality Neck: trachea midline Respiratory: normal respiratory effort Cardiovascular: RRR, no murmur, no edema Gastrointestinal (Abdomen): Inspection/Auscultation: abdomen normal to inspection and normal bowel sounds; abdomen not distended Percussion/Palpation: abdomen soft; abdomen nontender, no guarding and abdomen not rigid Musculoskeletal: Head/Neck/Chest: normocephalic and head atraumatic Skin: no rashes, warm and dry Results & Data Vital Signs (Past 12 Hours) Vital Signs Temp Pulse Pulse Pulse Resp BP Pulse Ox 02/23/25 08:55 02/23/25 07:11 36.7 C 78 18 115/66 92 02/23/25 06:45 72 02/23/25 04:00 36.7 C 80 18 121/62 95 02/22/25 22:47 36.6 C 91 H 18 102/63 92 O2 Del Method O2 Flow Rate 02/23/25 08:55 Free Flow/Blow-by 4 02/23/25 07:11 Free Flow/Blow-by 4 02/23/25 06:45 02/23/25 04:00 Free Flow/Blow-by 4 02/22/25 22:47 Free Flow/Blow-by 4
--- NOTE | 2025-02-23 14:22 | Hospitalist Progress Note ---
Date of Service February 23, 2025 Assessment & Plan (1) Small bowel obstruction: Plan: 59-year-old female from [facility] with past medical history significant for severe intellectual disability, autism, epilepsy, recurrent MDD, OCD, mood disorder, history of SIADH, CKD stage III, GERD, sensorineural hearing loss of both ears, lesion of right lower liver, fecal and urinary incontinence, left nephrolithiasis, excessive salivation, osteoarthritis admitted for nausea and vomiting secondary to small bowel obstruction. Patient was supposed to have procedure for kidney stone removal but then she started to have nausea and vomiting yesterday. Ureteral stent still in place as per the caregiver. Small bowel obstruction Nausea and vomiting improved with NG tube and n.p.o. status CT scan shows small bowel obstruction Continue n.p.o. status, IV fluids, pain control and IV antiemetics as needed Surgery consulted. Appreciate recommendation Continue NG tube with possible removal tomorrow Obstruction film reviewed today. Shows a nonobstructive gas pattern UTI Recently had left nephroureteral stent placement for kidney stones and had Pseudomonas UTI Continue on cefepime for now Follow cultures Follow-up with urology for kidney stone treatment when stable Hypoxia Possible aspiration Continue on antibiotics as above Continue O2 via nasal cannula Chronic heart failure with preserved ejection fraction IV fluids for now but monitor for volume overload Intellectual disability/, MDD,/OCD/, tardive dyskinesia Nonverbal Continue home medications when able to take p.o. Epilepsy Continue on IV Keppra Continue home p.o. medications when taking p.o. DVT prophylaxis:Lovenox Trend labs Disposition Continue med/telemetry Full code. I spent a total of 50 minutes coordinating, documenting and providing care for this patient excluding time spent in performance of separately billable services Admission and Anticipated Discharge Date Admission Date: February 22, 2025 Subjective Patient seen and examined earlier this a.m. She is noncommunicative. She can give no history. She has an NG tube in place. She has a Alcantara catheter in place. Review of Systems Review of Systems: Patient unable to give history Physical Exam Physical Exam: General- adult female seen at bedside, NG tube in place Head- atraumatic Eyes- PERRL, EOMI, anicteric ENT-NG tube in Neck- supple, no JVD, no adenopathy, Lungs- clear to auscultation and percussion Heart- regular rhythm; no murmur, no gallop, no rub appreciated Abdomen-diminished bowel sounds bowel sounds, soft, does not seem to have pain with palpation , no masses or hepatosplenomegaly Extremities- no pretibial edema, Neuro- alert, awake, unable to give history, unable to follow commands Skin- warm & dry Results & Data Results & Data Vital Signs (Past 12 Hours) Vital Signs Temp Pulse Pulse Pulse Resp BP Pulse Ox 02/23/25 11:24 36.9 C 91 H 18 129/74 93 02/23/25 08:55 02/23/25 07:11 36.7 C 78 18 115/66 92 02/23/25 06:45 72 02/23/25 04:00 36.7 C 80 18 121/62 95 O2 Del Method O2 Flow Rate 02/23/25 11:24 Free Flow/Blow-by 4 02/23/25 08:55 Free Flow/Blow-by 4 02/23/25 07:11 Free Flow/Blow-by 4 02/23/25 06:45 02/23/25 04:00 Free Flow/Blow-by 4 Diagnostic Findings Laboratory Results WBC 9.58 K/ul (4.8-10.8) 02/23/25 07:17 RBC 2.76 M/uL (4.20-5.40) L 02/23/25 07:17 Hgb 8.2 g/dl (12.0-16.0) L D 02/23/25 07:17 POC Hgb 13.9 g/dl (12.0-16.0) 02/21/25 20:03 Hct 25.7 % (37.0-47.0) L 02/23/25 07:17 POC Hct 41 % (37-47) 02/21/25 20:03 MCV 93.1 fL (80.0-100.0) 02/23/25 07:17 MCH 29.7 pg (25.0-34.0) 02/23/25 07:17 MCHC 31.9 g/dL (32.0-36.0) L 02/23/25 07:17 RDW Std Deviation 48.0 fL (36.4-46.3) H 02/23/25 07:17 RDW Coeff of Nic 14.2 % (11.5-14.5) 02/23/25 07:17 Plt Count 197 K/uL (130-400) 02/23/25 07:17 MPV 10.6 fL (9.4-12.4) 02/23/25 07:17 Immature Gran % (Auto) 0.5 % 02/22/25 04:20 Neut % (Auto) 91.4 % 02/22/25 04:20 Lymph % (Auto) 4.5 % 02/22/25 04:20 [place] % (Auto) 3.4 % 02/22/25 04:20 Eos % (Auto) 0.0 % 02/22/25 04:20 Baso % (Auto) 0.2 % 02/22/25 04:20 Neut # (Auto) 17.22 K/uL (1.40-6.50) H 02/22/25 04:20 Lymph # (Auto) 0.84 K/uL (1.20-3.40) L 02/22/25 04:20 [place] # (Auto) 0.64 K/uL (0.11-0.59) H 02/22/25 04:20 Eos # (Auto) 0.00 K/uL (0.00-0.50) 02/22/25 04:20 Baso # (Auto) 0.03 K/uL (0.00-0.20) 02/22/25 04:20 Immature Gran # (Auto) 0.09 K/uL (0.01-0.20) 02/22/25 04:20 Polychromasia 1+ 02/22/25 04:20 Tear Drop Cells 1+ 02/22/25 04:20 POC Sodium 139 mmol/L (135-144) 02/21/25 20:03 Sodium 145 mmol/L (136-145) 02/23/25 07:17 POC Potassium 3.3 mmol/L (3.3-5.0) 02/21/25 20:03 Potassium 3.9 mmol/L (3.5-5.1) 02/23/25 07:17 POC Chloride 99 mmol/L (101-112) L 02/21/25 20:03 Chloride 114 mmol/L (98-107) H 02/23/25 07:17 Carbon Dioxide 28 mmol/L (21-32) 02/23/25 07:17 POC Total CO2 27 mmol/L (24-31) 02/21/25 20:03 Anion Gap 3 (3-11) 02/23/25 07:17 POC Anion Gap 18.0 mmol/L (16-25) 02/21/25 20:03 POC BUN 28 mg/dl (7-18) H 02/21/25 20:03 BUN 30 mg/dl (6-23) H 02/23/25 07:17 Creatinine 0.63 mg/dl (0.6-1.2) 02/23/25 07:17 POC Creatinine 0.7 mg/dl (0.6-1.3) 02/21/25 20:03 Est Cr Clr Drug Dosing 83.0 ml/min 02/23/25 07:17 eGFR 102.13 02/23/25 07:17 BUN/Creatinine Ratio 47.6 (10-20) H 02/23/25 07:17 Glucose 86 mg/dl (70-99(Fasting)) 02/23/25 07:17 POC Glucose (other) 142 mg/dl (70-99) H 02/21/25 20:03 Lactate 0.9 mmol/L (0.4-2.0) 02/22/25 08:06 Calcium 7.9 mg/dl (8.6-10.3) L 02/23/25 07:17 POC Ioniz Calcium Cas[place] 1.10 mmol/l (1.12-1.32) L 02/21/25 20:03 Phosphorus 2.6 mg/dl (2.5-4.9) 02/23/25 07:17 Magnesium 1.9 mg/dl (1.7-2.4) 02/23/25 07:17 Total Bilirubin 0.2 mg/dl (0.2-1.0) 02/23/25 07:17 AST 9 U/L (13-39) L 02/23/25 07:17 ALT 6 U/L (7-52) L 02/23/25 07:17 Alkaline Phosphatase 80 U/L (34-104) 02/23/25 07:17 Total Protein 4.9 gm/dl (6.0-8.3) L D 02/23/25 07:17 Albumin 3.0 gm/dl (3.4-5.0) L 02/23/25 07:17 Globulin 1.9 gm/dl (2.5-4.0) L 02/23/25 07:17 Albumin/Globulin Ratio 1.6 (0.9-2) 02/23/25 07:17 Lipase 30 U/L (11-82) 02/21/25 19:50 Procalcitonin 0.10 ng/ml (0-0.5) 02/22/25 08:06 Urine Color Yellow 02/21/25 21:10 Urine Appearance Turbid (Clear) A 02/21/25 21:10 Urine pH 7.0 (4.5-7.5) 02/21/25 21:10 Ur Specific [place] > 1.045 (1.000-1.030) H 02/21/25 21:10 Urine Protein 2+ (Negative) H 02/21/25 21:10 Urine Glucose (UA) Negative (Negative) 02/21/25 21:10 Urine Ketones Trace (Negative) H 02/21/25 21:10 Urine Blood 3+ (Negative) H 02/21/25 21:10 Urine Nitrite Positive (Negative) A 02/21/25 21:10 Urine Bilirubin Negative (Negative) 02/21/25 21:10 Urine Urobilinogen Negative (Negative) 02/21/25 21:10 Ur Leukocyte Esterase 3+ (Negative) H 02/21/25 21:10 Urine WBC (Auto) >50 /hpf (0-5) H 02/21/25 21:10 Urine RBC (Auto) >20 /hpf (0-2) H 02/21/25 21:10 U Hyaline Cast (Auto) >20 /lpf (0-2) H 02/21/25 21:10 U Epithel Cells (Auto) 6-10 /hpf (0-2) H 02/21/25 21:10 Urine Bacteria (Auto) 4+ (None Seen) H 02/21/25 21:10 Hyaline Casts Present /lpf (None Presnt) A 02/21/25 21:10 Urine Mucus Present (None Prsent) A 02/21/25 21:10 Urine Comment 02/21/25 21:10 Nasal Screen MRSA (PCR) Negative (Negative) 02/22/25 05:46 Impressions Abdomen/Pelvis CT 02/21/25 19:35 Exam(s): CT ABDOMEN + PELVIS With Contrast IV Amt: 94ml EXAM: CT Abdomen and Pelvis With Intravenous Contrast CLINICAL HISTORY: Reason for exam: n/v/d nonverbal. TECHNIQUE: Axial computed tomography images of the abdomen and pelvis with intravenous contrast. CTDI is 23.23 mGy and DLP is 1203.36 mGy-cm. Automated exposure control was utilized for the study. A dose lowering technique was utilized adhering to the principles of ALARA. CONTRAST: Patient received 94ml of IV contrast COMPARISON: CT abdomen/pelvis: 09/25/2008 FINDINGS: Reduced diagnostic image quality due to motion and by patient's body characters. Lung bases: Bilateral mild bronchial wall cuffing and perihilar mild interstitial thickening. Likely calcified aortic and mitral valves. Gastroesophageal reflux of fluid. No consolidation.. No pleural effusion.. An elevated right hemidiaphragm. ABDOMEN: Liver: Unremarkable. No mass. Gallbladder and bile ducts: Unremarkable. No calcified stones. No ductal dilation. Pancreas: Diffusely atrophic pancreas. No contour deforming mass.. No ductal dilation. Spleen: Unremarkable. No splenomegaly. Adrenals: Unremarkable. No mass. Kidneys and ureters: A 5 mm right renal calculus in the lower pole calyx. Mild/moderate fullness of the left renal collecting system with a double pigtail ureteral catheter in situ. No solid mass. No right hydronephrosis. Stomach and bowel: A fluid/gas filled significantly distended stomach and multiple up to 3.5 cm dilated fluid/gas filled small bowel loops are seen throughout the abdomen and pelvis with a transition zone posteriorly in the pelvis, consistent with small bowel obstruction. (series 2 image 73). Liquid stool is seen in a borderline dilated ascending colon and gas in the transverse colon. No acute findings seen in the region of the appendix. PELVIS: Bladder: Empty with a Alcantara's catheter in situ. Reproductive: Markedly atrophic uterus. ABDOMEN and PELVIS: Intraperitoneal space: No free air. No significant fluid collection. Bones/joints: Moderately severe lumbar levoscoliosis with multilevel degenerative spondylitic changes. Moderately severe right hip osteoarthropathy with multiple subchondral cystic changes. No acute fracture. No dislocation. Soft tissues: Unremarkable. Vasculature: Diffusely calcified aortic atherosclerosis.. No abdominal aortic aneurysm. Lymph nodes: No significant enlarged lymph nodes.. IMPRESSION: Small bowel obstruction with a transition zone seen in the pelvis posteriorly. Liquid stool seen in a borderline distended ascending colon. Additional findings as described above. . Electronically signed by: Torrey Russell MD, DABR 02/21/25 22:55 PM Chest X-Ray 02/21/25 21:31 Exam(s): XR CXR 1 VIEW EXAM: XR Chest, 1 View CLINICAL HISTORY: Reason for exam: ? aspiration. TECHNIQUE: Frontal view of the chest. COMPARISON: Chest radiograph on 04/03/2023 FINDINGS: Hardware: None. Lungs/pleura: Bilateral lung opacities. Heart/mediastinum: Probable mild enlargement of the cardiac silhouette. Soft tissues: Unremarkable. Bones: No acute fracture. Upper abdomen: Normal. IMPRESSION: Bilateral lung opacities may represent atelectasis versus pneumonia versus edema. Pleural effusions not excluded. Electronically signed by: Royal Gordon M.D. 02/22/25 02:00 AM KUB X-Ray 02/23/25 08:24 KUB HISTORY: Acute generalized abdominal pain with small bowel obstruction SBO COMPARISON: CT 02/21/2025 FINDINGS: Distal tip of enteric tube projects over the expected location of the mid stomach. Cardiomegaly. Air-filled loops of large and small bowel. There is mild gaseous distention of the large bowel with transverse colon measuring up to 7 cm. Left renal stent appears to be in satisfactory positioning. Bilateral nephrolithiasis redemonstrated. No ureteral calculi are seen. No pneumoperitoneum or pneumatosis. Severe osteoarthritis of the right hip. No fracture. IMPRESSION: 1. Satisfactory positioning of the enteric tube. The bowel gas pattern appears nonobstructive on today's study. 2. Satisfactory positioning of the left ureteral stent. 3. Bilateral nephrolithiasis. ACT 112: Negative or not required by law. The above report was generated using voice recognition software. It may contain grammatical, syntax or spelling errors. Electronically signed by: Vince Cervantes M.D. 02/23/2025 10:34 AM
[2025-02-24 06:38] LABS: Hematocrit (blood only) 26.0 % (37.0-47.0); Hemoglobin 8.3 g/dl (12.0-16.0); Mean Corpuscular Hemoglobin 28.9 pg (25.0-34.0); Mean Corpuscular Volume 90.6 fL (80.0-100.0); Platelet Count 194 K/uL (130-400); RDW Standard Deviation 43.9 fL (36.4-46.3); Red Blood Count 2.87 M/uL (4.20-5.40); White Blood Count 9.13 K/ul (4.8-10.8)
[2025-02-24 07:11] LABS: Alanine Aminotransferase 6.0 U/L (7-52); Albumin Globulin Ratio 1.6 (0.9-2); Alkaline Phosphatase 83.0 U/L (34-104); Anion Gap 6.0 (3-11); Bilirubin,Total 0.2 mg/dl (0.2-1.0); Blood Urea Nitrogen 16.0 mg/dl (6-23); Calcium 7.9 mg/dl (8.6-10.3); Carbon Dioxide 27.0 mmol/L (21-32); Chloride 108.0 mmol/L (98-107); Creatinine Clr Calc Pharmacy 91.8 ml/min; Globulin 2.0 gm/dl (2.5-4.0); Glucose 66.0 mg/dl (70-99(Fasting)); Potassium 3.4 mmol/L (3.5-5.1); Sodium 141.0 mmol/L (136-145); Total Protein 5.1 gm/dl (6.0-8.3)
--- NOTE | 2025-02-24 09:54 | Surgery Progress Note ---
Date of Service February 24, 2025 Assessment & Plan (1) Small bowel obstruction: Plan: minimal NG output no BM will remove NG and begin clears Admission and Anticipated Discharge Date Admission Date: February 22, 2025 Subjective non verbal Review of Systems Constitutional: no fever Physical Exam Constitutional: WD/WN, vitals as above Eyes: no scleral abnormality Neck: trachea midline Respiratory: normal respiratory effort, lungs clear to auscultation Cardiovascular: RRR, no murmur, no edema Gastrointestinal (Abdomen): Inspection/Auscultation: abdomen normal to inspection and normal bowel sounds; abdomen not distended Percussion/Palpation: abdomen soft; abdomen nontender, no guarding and abdomen not rigid Skin: no rashes, warm and dry Results & Data Vital Signs (Past 12 Hours) Vital Signs Temp Pulse Pulse Resp BP Pulse Ox O2 Del Method 02/24/25 07:47 37 C 81 18 129/74 95 Free Flow/Blow-by 02/24/25 06:45 78 02/24/25 04:00 36.8 C 84 20 123/71 95 Free Flow/Blow-by 02/23/25 23:15 36.7 C 91 H 18 136/75 94 Free Flow/Blow-by 02/23/25 22:34 Free Flow/Blow-by 02/23/25 21:55 86 O2 Flow Rate 02/24/25 07:47 4 02/24/25 06:45 02/24/25 04:00 4 02/23/25 23:15 4 02/23/25 22:34 4 02/23/25 21:55
--- NOTE | 2025-02-24 15:55 | Hospitalist Progress Note ---
Date of Service February 24, 2025 Assessment & Plan (1) Small bowel obstruction: Plan: 59-year-old female from [facility] with past medical history significant for severe intellectual disability, autism, epilepsy, recurrent MDD, OCD, mood disorder, history of SIADH, CKD stage III, GERD, sensorineural hearing loss of both ears, lesion of right lower liver, fecal and urinary incontinence, left nephrolithiasis, excessive salivation, osteoarthritis admitted for nausea and vomiting secondary to small bowel obstruction. Patient was supposed to have procedure for kidney stone removal but then she started to have nausea and vomiting yesterday. Ureteral stent still in place as per the caregiver. Small bowel obstruction Nausea and vomiting improved. NG tube is out and she is on clear liquids. Advance diet as tolerated per surgery CT scan shows small bowel obstruction Surgery consulted. Appreciate recommendation UTI Recently had left nephroureteral stent placement for kidney stones and had Ps eudomonas UTI Currently on cefepime. Cultures are growing Pseudomonas again with broad sensitivity Blood cultures are negative Will consult ID for further recommendations Follow-up with urology for kidney stone treatment when stable Hypoxia Possible aspiration Continue on antibiotics as above Off O2 now Chronic heart failure with preserved ejection fraction IV fluids discontinued but monitor for volume overload Intellectual disability/, MDD,/OCD/, tardive dyskinesia Nonverbal Continue home medications Epilepsy Discontinue IV Keppra and switch back to p.o. Continue home p.o. medications when taking p.o. DVT prophylaxis:Lovenox Trend labs Disposition Continue med/telemetry Full code. I spent a total of 51 minutes coordinating, documenting and providing care for this patient excluding time spent in performance of separately billable services Admission and Anticipated Discharge Date Admission Date: February 22, 2025 Subjective Chart, vital signs and data reviewed. NG tube is out. Patient is nonverbal and can give no history. Nurses report she is taking clear liquids and her pills without difficulty. There has been no further vomiting. Physical Exam Physical Exam: General- adult female seen at bedside. Head- atraumatic Eyes- PERRL, EOMI, anicteric ENT- oropharynx clear Neck- supple, no JVD, no adenopathy, Lungs- clear to auscultation and percussion Heart- regular rhythm; no murmur, no gallop, no rub appreciated Abdomen- normal bowel sounds, soft, nontender, no masses or hepatosplenomegaly Extremities- no pretibial edema, Neuro- alert, she is nonverbal and can give no history, she cannot follow commands, she moves all extremities Skin- warm & dry Results & Data Results & Data Vital Signs (Past 12 Hours) Vital Signs Temp Pulse Pulse Resp BP Pulse Ox O2 Del Method 02/24/25 15:50 37.5 C 78 18 119/68 94 Free Flow/Blow-by 02/24/25 11:30 37 C 112 H 18 92 Free Flow/Blow-by 02/24/25 08:17 Free Flow/Blow-by 02/24/25 07:47 37 C 81 18 129/74 95 Free Flow/Blow-by 02/24/25 06:45 78 02/24/25 04:00 36.8 C 84 20 123/71 95 Free Flow/Blow-by O2 Flow Rate 02/24/25 15:50 4 02/24/25 11:30 4 02/24/25 08:17 4 02/24/25 07:47 4 02/24/25 06:45 02/24/25 04:00 4 Diagnostic Findings Laboratory Results WBC 9.13 K/ul (4.8-10.8) 02/24/25 06:01 RBC 2.87 M/uL (4.20-5.40) L 02/24/25 06:01 Hgb 8.3 g/dl (12.0-16.0) L 02/24/25 06:01 POC Hgb 13.9 g/dl (12.0-16.0) 02/21/25 20:03 Hct 26.0 % (37.0-47.0) L 02/24/25 06:01 POC Hct 41 % (37-47) 02/21/25 20:03 MCV 90.6 fL (80.0-100.0) 02/24/25 06:01 MCH 28.9 pg (25.0-34.0) 02/24/25 06:01 MCHC 31.9 g/dL (32.0-36.0) L 02/24/25 06:01 RDW Std Deviation 43.9 fL (36.4-46.3) 02/24/25 06:01 RDW Coeff of Nic 13.2 % (11.5-14.5) 02/24/25 06:01 Plt Count 194 K/uL (130-400) 02/24/25 06:01 MPV 10.5 fL (9.4-12.4) 02/24/25 06:01 Immature Gran % (Auto) 0.5 % 02/22/25 04:20 Neut % (Auto) 91.4 % 02/22/25 04:20 Lymph % (Auto) 4.5 % 02/22/25 04:20 [place] % (Auto) 3.4 % 02/22/25 04:20 Eos % (Auto) 0.0 % 02/22/25 04:20 Baso % (Auto) 0.2 % 02/22/25 04:20 Neut # (Auto) 17.22 K/uL (1.40-6.50) H 02/22/25 04:20 Lymph # (Auto) 0.84 K/uL (1.20-3.40) L 02/22/25 04:20 [place] # (Auto) 0.64 K/uL (0.11-0.59) H 02/22/25 04:20 Eos # (Auto) 0.00 K/uL (0.00-0.50) 02/22/25 04:20 Baso # (Auto) 0.03 K/uL (0.00-0.20) 02/22/25 04:20 Immature Gran # (Auto) 0.09 K/uL (0.01-0.20) 02/22/25 04:20 Polychromasia 1+ 02/22/25 04:20 Tear Drop Cells 1+ 02/22/25 04:20 POC Sodium 139 mmol/L (135-144) 02/21/25 20:03 Sodium 141 mmol/L (136-145) 02/24/25 06:01 POC Potassium 3.3 mmol/L (3.3-5.0) 02/21/25 20:03 Potassium 3.4 mmol/L (3.5-5.1) L 02/24/25 06:01 POC Chloride 99 mmol/L (101-112) L 02/21/25 20:03 Chloride 108 mmol/L (98-107) H 02/24/25 06:01 Carbon Dioxide 27 mmol/L (21-32) 02/24/25 06:01 POC Total CO2 27 mmol/L (24-31) 02/21/25 20:03 Anion Gap 6 (3-11) 02/24/25 06:01 POC Anion Gap 18.0 mmol/L (16-25) 02/21/25 20:03 POC BUN 28 mg/dl (7-18) H 02/21/25 20:03 BUN 16 mg/dl (6-23) 02/24/25 06:01 Creatinine 0.57 mg/dl (0.6-1.2) L 02/24/25 06:01 POC Creatinine 0.7 mg/dl (0.6-1.3) 02/21/25 20:03 Est Cr Clr Drug Dosing 91.8 ml/min 02/24/25 06:01 eGFR 104.62 02/24/25 06:01 BUN/Creatinine Ratio 28.1 (10-20) H 02/24/25 06:01 Glucose 66 mg/dl (70-99(Fasting)) L 02/24/25 06:01 POC Glucose (other) 142 mg/dl (70-99) H 02/21/25 20:03 Lactate 0.9 mmol/L (0.4-2.0) 02/22/25 08:06 Calcium 7.9 mg/dl (8.6-10.3) L 02/24/25 06:01 POC Ioniz Calcium Casie 1.10 mmol/l (1.12-1.32) L 02/21/25 20:03 Phosphorus 2.6 mg/dl (2.5-4.9) 02/23/25 07:17 Magnesium 1.9 mg/dl (1.7-2.4) 02/23/25 07:17 Total Bilirubin 0.2 mg/dl (0.2-1.0) 02/24/25 06:01 AST 10 U/L (13-39) L 02/24/25 06:01 ALT 6 U/L (7-52) L 02/24/25 06:01 Alkaline Phosphatase 83 U/L (34-104) 02/24/25 06:01 Total Protein 5.1 gm/dl (6.0-8.3) L 02/24/25 06:01 Albumin 3.1 gm/dl (3.4-5.0) L 02/24/25 06:01 Globulin 2.0 gm/dl (2.5-4.0) L 02/24/25 06:01 Albumin/Globulin Ratio 1.6 (0.9-2) 02/24/25 06:01 Lipase 30 U/L (11-82) 02/21/25 19:50 Procalcitonin 0.10 ng/ml (0-0.5) 02/22/25 08:06 Urine Color Yellow 02/21/25 21:10 Urine Appearance Turbid (Clear) A 02/21/25 21:10 Urine pH 7.0 (4.5-7.5) 02/21/25 21:10 Ur Specific [place] > 1.045 (1.000-1.030) H 02/21/25 21:10 Urine Protein 2+ (Negative) H 02/21/25 21:10 Urine Glucose (UA) Negative (Negative) 02/21/25 21:10 Urine Ketones Trace (Negative) H 02/21/25 21:10 Urine Blood 3+ (Negative) H 02/21/25 21:10 Urine Nitrite Positive (Negative) A 02/21/25 21:10 Urine Bilirubin Negative (Negative) 02/21/25 21:10 Urine Urobilinogen Negative (Negative) 02/21/25 21:10 Ur Leukocyte Esterase 3+ (Negative) H 02/21/25 21:10 Urine WBC (Auto) >50 /hpf (0-5) H 02/21/25 21:10 Urine RBC (Auto) >20 /hpf (0-2) H 02/21/25 21:10 U Hyaline Cast (Auto) >20 /lpf (0-2) H 02/21/25 21:10 U Epithel Cells (Auto) 6-10 /hpf (0-2) H 02/21/25 21:10 Urine Bacteria (Auto) 4+ (None Seen) H 02/21/25 21:10 Hyaline Casts Present /lpf (None Presnt) A 02/21/25 21:10 Urine Mucus Present (None Prsent) A 02/21/25 21:10 Urine Comment 02/21/25 21:10 Nasal Screen MRSA (PCR) Negative (Negative) 02/22/25 05:46 Impressions Abdomen/Pelvis CT 02/21/25 19:35 Exam(s): CT ABDOMEN + PELVIS With Contrast IV Amt: 94ml EXAM: CT Abdomen and Pelvis With Intravenous Contrast CLINICAL HISTORY: Reason for exam: n/v/d nonverbal. TECHNIQUE: Axial computed tomography images of the abdomen and pelvis with intravenous contrast. CTDI is 23.23 mGy and DLP is 1203.36 mGy-cm. Automated exposure control was utilized for the study. A dose lowering technique was utilized adhering to the principles of ALARA. CONTRAST: Patient received 94ml of IV contrast COMPARISON: CT abdomen/pelvis: 09/25/2008 FINDINGS: Reduced diagnostic image quality due to motion and by patient's body characters. Lung bases: Bilateral mild bronchial wall cuffing and perihilar mild interstitial thickening. Likely calcified aortic and mitral valves. Gastroesophageal reflux of fluid. No consolidation.. No pleural effusion.. An elevated right hemidiaphragm. ABDOMEN: Liver: Unremarkable. No mass. Gallbladder and bile ducts: Unremarkable. No calcified stones. No ductal dilation. Pancreas: Diffusely atrophic pancreas. No contour deforming mass.. No ductal dilation. Spleen: Unremarkable. No splenomegaly. Adrenals: Unremarkable. No mass. Kidneys and ureters: A 5 mm right renal calculus in the lower pole calyx. Mild/moderate fullness of the left renal collecting system with a double pigtail ureteral catheter in situ. No solid mass. No right hydronephrosis. Stomach and bowel: A fluid/gas filled significantly distended stomach and multiple up to 3.5 cm dilated fluid/gas filled small bowel loops are seen throughout the abdomen and pelvis with a transition zone posteriorly in the pelvis, consistent with small bowel obstruction. (series 2 image 73). Liquid stool is seen in a borderline dilated ascending colon and gas in the transverse colon. No acute findings seen in the region of the appendix. PELVIS: Bladder: Empty with a Alcantara's catheter in situ. Reproductive: Markedly atrophic uterus. ABDOMEN and PELVIS: Intraperitoneal space: No free air. No significant fluid collection. Bones/joints: Moderately severe lumbar levoscoliosis with multilevel degenerative spondylitic changes. Moderately severe right hip osteoarthropathy with multiple subchondral cystic changes. No acute fracture. No dislocation. Soft tissues: Unremarkable. Vasculature: Diffusely calcified aortic atherosclerosis.. No abdominal aortic aneurysm. Lymph nodes: No significant enlarged lymph nodes.. IMPRESSION: Small bowel obstruction with a transition zone seen in the pelvis posteriorly. Liquid stool seen in a borderline distended ascending colon. Additional findings as described above. . Electronically signed by: Torrey Russell MD, DABR 02/21/25 22:55 PM Chest X-Ray 02/21/25 21:31 Exam(s): XR CXR 1 VIEW EXAM: XR Chest, 1 View CLINICAL HISTORY: Reason for exam: ? aspiration. TECHNIQUE: Frontal view of the chest. COMPARISON: Chest radiograph on 04/03/2023 FINDINGS: Hardware: None. Lungs/pleura: Bilateral lung opacities. Heart/mediastinum: Probable mild enlargement of the cardiac silhouette. Soft tissues: Unremarkable. Bones: No acute fracture. Upper abdomen: Normal. IMPRESSION: Bilateral lung opacities may represent atelectasis versus pneumonia versus edema. Pleural effusions not excluded. Electronically signed by: Royal Gordon M.D. 02/22/25 02:00 AM KUB X-Ray 02/23/25 08:24 KUB HISTORY: Acute generalized abdominal pain with small bowel obstruction SBO COMPARISON: CT 02/21/2025 FINDINGS: Distal tip of enteric tube projects over the expected location of the mid stomach. Cardiomegaly. Air-filled loops of large and small bowel. There is mild gaseous distention of the large bowel with transverse colon measuring up to 7 cm. Left renal stent appears to be in satisfactory positioning. Bilateral nephrolithiasis redemonstrated. No ureteral calculi are seen. No pneumoperitoneum or pneumatosis. Severe osteoarthritis of the right hip. No fracture. IMPRESSION: 1. Satisfactory positioning of the enteric tube. The bowel gas pattern appears nonobstructive on today's study. 2. Satisfactory positioning of the left ureteral stent. 3. Bilateral nephrolithiasis. ACT 112: Negative or not required by law. The above report was generated using voice recognition software. It may contain grammatical, syntax or spelling errors. Electronically signed by: Vince Cervantes M.D. 02/23/2025 10:34 AM
[2025-02-24] MEDS: POTASSIUM CHLORIDE CRTAB 20 MEQ TABCR PO STA (16:34)
[2025-02-24] MEDS: levETIRAcetam 500 MG TAB PO SCH (20:43)
[2025-02-25] MEDS: MAGNESIUM SULFATE / D5W 1 GM/100 ML BAG IV ONE (04:54)
[2025-02-25] MEDS: POTASSIUM CHLORIDE CRTAB 20 MEQ TABCR PO STA (04:55)
[2025-02-25 05:18] LABS: Hematocrit (blood only) 26.0 % (37.0-47.0); Hemoglobin 8.6 g/dl (12.0-16.0); Mean Corpuscular Hemoglobin 29.5 pg (25.0-34.0); Mean Corpuscular Volume 89.0 fL (80.0-100.0); Platelet Count 205 K/uL (130-400); RDW Standard Deviation 42.5 fL (36.4-46.3); Red Blood Count 2.92 M/uL (4.20-5.40); White Blood Count 8.06 K/ul (4.8-10.8)
[2025-02-25 05:33] LABS: Anion Gap 6.0 (3-11); Blood Urea Nitrogen 12.0 mg/dl (6-23); Calcium 7.9 mg/dl (8.6-10.3); Carbon Dioxide 27.0 mmol/L (21-32); Chloride 104.0 mmol/L (98-107); Creatinine Clr Calc Pharmacy 96.9 ml/min; Glucose 90.0 mg/dl (70-99(Fasting)); Magnesium 1.6 mg/dl (1.7-2.4); Potassium 3.3 mmol/L (3.5-5.1); Sodium 137.0 mmol/L (136-145)
[2025-02-25 05:46] LABS: Magnesium 1.8 mg/dl (1.7-2.4)
[2025-02-25] MEDS: POTASSIUM CHLORIDE PWD 20 MEQ PACK PO SCH (08:27)
[2025-02-25] MEDS: POT PHOSPHATE MONOBASIC W/ SOD TAB PO SCH (08:27)
[2025-02-25] MEDS: MAGNESIUM SULFATE / D5W 1 GM/100 ML BAG IV SCH (08:39)
[2025-02-25] MEDS: POTASSIUM CHLORIDE / WTR 10 MEQ/100 ML PLCT IV SCH (08:39)
--- NOTE | 2025-02-25 10:57 | Surgery Progress Note ---
Date of Service February 25, 2025 Assessment & Plan (1) Small bowel obstruction: Plan: abdomen soft, no vomiting, appears comfortable Plan: can slowly increase diet as tolerated continue medical management surgery will follow peripherally call with questions/concerns Admission and Anticipated Discharge Date Admission Date: February 22, 2025 Subjective unable to obtain patient nonverbal per nursing no vomiting tolerating liquids appears comfortable in no pain Physical Exam Constitutional: + obese, cooperative and comfortable; no acute distress and not ill appearing Gastrointestinal (Abdomen): Percussion/Palpation: abdomen soft; abdomen nontender, no guarding and abdomen not rigid Skin: no rashes, warm and dry Psychiatric: Orientation: alert; + not oriented x 3 Results & Data Vital Signs (Past 12 Hours) Vital Signs Temp Pulse Pulse Pulse Resp BP BP 02/25/25 07:18 71 02/25/25 07:14 36.9 C 83 20 135/77 02/25/25 04:25 36.6 C 75 24 145/65 H 02/25/25 03:19 36.7 C 72 16 118/64 02/24/25 23:54 36.4 C L 80 18 110/65 Pulse Ox O2 Del Method O2 Flow Rate 02/25/25 07:18 02/25/25 07:14 96 Free Flow/Blow-by 3.0 02/25/25 04:25 94 Room Air 02/25/25 03:19 94 Free Flow/Blow-by 4 02/24/25 23:54 93 Free Flow/Blow-by 4 Laboratory Results 02/25/25 02/25/25 02/24/25 Range/Units 04:47 04:43 06:01 WBC 8.06 (4.8-10.8) K/ul RBC 2.92 L (4.20-5.40) M/uL Hgb 8.6 L (12.0-16.0) g/dl Hct 26.0 L (37.0-47.0) % MCV 89.0 (80.0-100.0) fL MCH 29.5 (25.0-34.0) pg MCHC 33.1 (32.0-36.0) g/dL RDW Std Deviation 42.5 (36.4-46.3) fL RDW Coeff of Nic 13.2 (11.5-14.5) % Plt Count 205 (130-400) K/uL MPV 10.6 (9.4-12.4) fL Sodium 137 (136-145) mmol/L Potassium 3.3 L (3.5-5.1) mmol/L Chloride 104 (98-107) mmol/L Carbon Dioxide 27 (21-32) mmol/L Anion Gap 6 (3-11) BUN 12 (6-23) mg/dl Creatinine 0.54 L (0.6-1.2) mg/dl Est Cr Clr Drug Dosing 96.9 ml/min eGFR 105.99 BUN/Creatinine Ratio 22.2 H (10-20) Glucose 90 (70-99(Fasting)) mg/dl POC Glucose 92 (70-99) mg/dl Calcium 7.9 L (8.6-10.3) mg/dl Phosphorus 2.3 L (2.5-4.9) mg/dl Magnesium 1.6 L 1.8 (1.7-2.4) mg/dl
--- NOTE | 2025-02-25 11:53 | Infectious Disease Consult ---
Date of Consultation February 25, 2025 Assessment & Plan (1) Nephrolithiasis: (2) Acute UTI: Plan Problems: #Pseudomonas UTI #? Pneumonia #L obstructing ureteral stone with mild hydroureteronephrosis s/p L ureteral stent and aspiration of L kidney (12/16), awaiting definitive stone treatment #SBO Micro: 02/22 BCx x2: NGTD 02/21 UCx: Pseudomonas aeruginosa (I aztreonam. Otherwise S) 01/29 UCx: Pseudomonas aeruginosa #1 (kramer-S), #2 (I pip-tazo, otherwise S) 01/12 UCx: Sarah albicans/dubliniensis 01/05 UCx: Pseudomonas aeruginosa (R meropenem. Otherwise S) 12/16 Kidney aspirate cx: NG Abx: Cefepime 02/21 - present Metronidazole 02/22 - 02/24 59 yo nonverbal F from [facility] with severe intellectual disability, autism, epilepsy, recurrent MDD, OCD, mood disorder, history of SIADH, CKD, GERD, SNHL of both ears, lesion of R lobe of liver, fecal and urinary incontinence, L obstructing ureteral stone with mild hydroureteronephrosis s/p L ureteral stent and aspiration of L kidney (12/16) and shafer catheter placement. Kidney aspirate cx showed no growth. She was treated with a 10-14 day course of antibiotics with plan for follow-up as outpatient for stone surgery. This was supposed to occur on 01/17, but procedure was canceled due to pt testing positive for COVID-19. Pt was then admitted 01/29-01/31 with concern for UTI in the setting of abnormal behavior, with CT showing findings of cystitis and L pyelonephritis. She was treated with cefepime, then converted to ciprofloxacin on discharge. Now presenting on 02/21 with nausea, vomiting, found to have SBO. Also had small amount of diarrhea twice on day of presentation. On presentation, pt was afebrile, HR 100, 87% on room air placed on 3 L O2. Labs showed WBC 20, Cr 0.7, UA with >[address] A/P with IV contrast with small bowel obstruction with transition zone seen in the pelvis posteriorly, liquid stool seen in borderline distended ascending colon. CXR with bilateral lung opacities, may represent atelectasis vs pneumonia vs edema. Surgery was consulted and NGT placed. Pt was started on cefepime for possible UTI. UCx grew Pseudomonas, for which ID is consulted. Leukocytosis now resolved. Initial presentation may be mostly related to SBO, but will treat as Pseudomonas UTI given L ureteral stent in place with upcoming procedure for definitive stone treatment. Recommendations: -Can continue cefepime while inpatient -On discharge, transition to ciprofloxacin 500 mg PO q12h through 03/07 to complete a total 14 day course of antibiotics, given L ureteral stent in place. Please check EKG to confirm QTc is not prolonged prior to starting ciprofloxacin. Will sign off. Consultation Information This patient recommendation is based on a telemedicine consult request which was completed asynchronously through chart review and information provided by the primary physician. The patient was not seen or examined today. The evaluation is consultative in nature and all patient care and treatment decisions can either be accepted or rejected by the patient's primary hospital-based treating physician using their own independent medical judgment for their patient. Educational Guidance Counselor contact information: Please call [facility] [phone]. (Phone Number For Physician Use Only) Time Spent Reviewing Chart: 31+ minutes History of Present Illness Reason for Consultation: Pseudomonas UTI Attending Physician: Bhavya Garcia MD History of Present Illness 59 yo nonverbal F from [facility] with severe intellectual disability, autism, epilepsy, recurrent MDD, OCD, mood disorder, history of SIADH, CKD, GERD, SNHL of both ears, lesion of R lobe of liver, fecal and urinary incontinence, L obstructing ureteral stone with mild hydroureteronephrosis s/p L ureteral stent and aspiration of L kidney (12/16) and shafer catheter placement. Kidney aspirate cx showed no growth. She was treated with a 10-14 day course of antibiotics with plan for follow-up as outpatient for stone surgery. This was supposed to occur on 01/17, but procedure was canceled due to pt testing positive for COVID-19. Pt was then admitted 01/29-01/31 with concern for UTI in the setting of abnormal behavior, with CT showing findings of cystitis and L pyelonephritis. She was treated with cefepime, then converted to ciprofloxacin on discharge. Now presenting on 02/21 with nausea, vomiting. Pt was supposed to go for kidney stone procedure, but had these symptoms, so she was brought to the hospital. Also had small amount of diarrhea twice on day of presentation. On presentation, pt was afebrile, HR 100, 87% on room air placed on 3 L O2. Labs showed WBC 20, Cr 0.7, UA with >[address] A/P with IV contrast with small bowel obstruction with transition zone seen in the pelvis posteriorly, liquid stool seen in borderline distended ascending colon. CXR with bilateral lung opacities, may represent atelectasis vs pneumonia vs edema. Surgery was consulted and NGT placed. Pt was started on cefepime for possible UTI. Metronidazole was added. UCx grew Pseudomonas, for which ID is consulted. Allergies Allergy/AdvReac Type Severity Reaction Status Date / Time caffeine Allergy Unknown Unknown Verified 02/09/25 14:57 naproxen Allergy Unknown no rxn Verified 02/09/25 14:57 info listed NSAIDS (Non-Steroidal Allergy Unknown no rxn Verified 02/09/25 14:57 Anti-Inflamma listed Home Medications Medication Instructions Recorded Confirmed Type acetaminophen 500 mg tablet 500 mg PO QAM chronic pain 12/15/24 02/21/25 History aloe vera 1 applic topical Q1H PRN Sunburn 12/15/24 02/21/25 History aluminum-mag hydroxide-simethicone 10 ml PO DIRECTED PRN 12/15/24 02/21/25 History 400 mg-400 mg-40 mg/5 mL oral susp Indigestion (Maalox Maximum Strength) bisacodyl 5 mg tablet,delayed 10 mg PO Q3D PRN Constipation 12/15/24 02/21/25 History release (Dulcolax (bisacodyl)) chlorhexidine gluconate 0.12 % 1 applic buccal TID chronic 12/15/24 02/21/25 History mouthwash gingivitis clobazam 10 mg tablet (Onfi) 5 mg PO HS 12/15/24 02/21/25 History deutetrabenazine 36 mg 36 mg PO DAILY 12/15/24 02/21/25 History tablet,extended release 24 hr (Austedo XR) docusate sodium 100 mg capsule 100 mg PO AMHS 12/15/24 02/21/25 History famotidine 40 mg tablet (Pepcid) 40 mg PO DAILY 12/15/24 02/21/25 History glycopyrrolate 1 mg tablet 1 mg PO TID excessive drooling 12/15/24 02/21/25 History (Robinul) hydrocortisone 1 % topical cream 1 applic topical TID PRN Rash 12/15/24 02/21/25 History lamotrigine 100 mg tablet 50 mg PO AMHS 12/15/24 02/21/25 History lamotrigine 200 mg tablet 200 mg PO AMHS 12/15/24 02/21/25 History (Lamictal) levetiracetam 1,000 mg tablet 1,000 mg PO BID 12/15/24 02/21/25 History levetiracetam 500 mg tablet 500 mg PO BID 12/15/24 02/21/25 History (Keppra) loperamide 2 mg capsule (Imodium 2 mg PO DIRECTED PRN Loose Stool 12/15/24 02/21/25 History A-D) multivitamin 1 tab PO QAM 12/15/24 02/21/25 History perphenazine 2 mg tablet 2 mg PO AMHS 12/15/24 02/21/25 History perphenazine 4 mg tablet 4 mg PO HS 12/15/24 02/21/25 History phosphorated carbohydrate oral 30 ml PO DIRECTED PRN Nausea 12/15/24 02/21/25 History solution (Emetrol oral solution) polyethylene glycol 3350 17 17 g PO QAM 12/15/24 02/21/25 History gram/dose oral powder (Miralax) quetiapine 200 mg tablet (Seroquel) 200 mg PO HS 12/15/24 02/21/25 History quetiapine 50 mg tablet (Seroquel) 50 mg PO QAM 12/15/24 02/21/25 History sertraline 100 mg tablet (Zoloft) 100 mg PO QAM 12/15/24 02/21/25 History cholecalciferol (vitamin D3) 125 125 mcg PO QAM #30 tabs 12/24/24 02/21/25 Rx mcg (5,000 unit) tablet ferrous sulfate 325 mg (65 mg 325 mg PO BIDM #60 tabs 12/24/24 02/21/25 Rx iron) tablet,delayed release calcium polycarbophil 625 mg 625 mg PO QAM 01/05/25 02/21/25 History tablet (FiberCon) neomycin-bacitracn Zn-polymyxn 3.5 1 applic topical BID PRN abrasion 01/05/25 02/21/25 History mg-400 unit-5,000 unit top oint until resolved pkt (Triple Antibiotic) acetaminophen 500 mg tablet 1,000 mg PO Q4H PRN elevated 02/09/25 02/21/25 History temp/headache/mild pain fluoride (sodium) 1.1 % dental 1 applic dental BID 02/09/25 02/21/25 History cream (SF 5000 Plus) calcium 500 mg (as 1 tab PO QAM 02/21/25 02/21/25 History carbonate)-vitamin D3 5 mcg (200 unit) tablet dextromethorphan-guaifenesin 10 5 ml PO Q4 PRN Cough 02/21/25 02/21/25 History mg-200 mg/5 mL oral liquid nystatin 100,000 unit/gram topical 1 applic topical HS 02/21/25 02/21/25 History cream Patient History Medical History (Updated 02/25/25 @ 13:32 by CHARLEEN Arreola) Candidal cystitis and urethritis Other abnormalities of gait and mobility Respiratory failure with hypoxia hx not known per facility, hospitalized [facility] december 2024. At current O2 sats while awake 95 % per facility. Bilateral pleural effusion Left ureteral calculus Complicated UTI (urinary tract infection) Osteoarthritis of hips, bilateral Autism Severe intellectual disability Nocturnal hypoxemia per facility while in hospital 12/2024, suspected sleep apnea, sats would drop at night. Denies occuring currently. Shafer catheter in place History of sepsis hospitalized [facility] december 2024. Resolved per facility. History of pneumonia (12/2024) hospitalized at [facility]. december 2024. resolved per facility. Congenital hiatus hernia Umbilical hernia Hydronephrosis with renal and ureteral calculous obstruction Iron deficiency anemia Epilepsy Fatty (change of) liver, not elsewhere classified Psychomotor deficit Flat foot Other acquired deformity of toe toes Myopathy extraocular muscles right orbit Diplopia Other forms of scoliosis, lumbar region Pure hypercholesterolemia, unspecified Major depressive disorder, recurrent Hypermetropia, bilateral Diarrhea, unspecified Drug induced subacute dyskinesia Tremor, unspecified Restlessness and agitation GERD without esophagitis Deficiency of other vitamins Depression Constipation Unspecified cataract Lump of right breast Urinary incontinence Chronic pain Repeated falls facility denies fall in past 90 days. Astigmatism unspecified, right eye unspecified, left eye Chronic gum disease chronic gingivitis , plaque induced Dysphagia Anxiety disorder, unspecified OCD (obsessive compulsive disorder) Dementia unspecified Somnolence Polypharmacy Surgical History History of cystoscopy (~12/16/24) Cystoscopy with irrigation of bladder and catheter placement. Left ureteroscopy, Retrograde Pyelogram, Left Stent Placement, ureteral dilation, and aspiration of left kidney Grade 2 view, glidescope 3, ETT 7.0. Surgical history unknown Social History Smoking Status: Unknown if ever smoked Second Hand Exposure: No; Hx Alcohol Use: No Hx Substance Use: No Preferred Language: Slovenian Communication Ability: Unable Communication Ability Comment: pt. nonverbal, sometimes cooperates with staffing administrator Required: No Beliefs That Will Affect Care: None marital status: Single Current Living Situation: Other Current Living Situation Comment: custodial current occupational status: disabled Feels Safe at Home: Yes Assistive Devices: Walker and Wheelchair Assistive Devices Comment: Unknown Results & Data Vital Signs (Past 12 Hours) Vital Signs Temp Pulse Pulse Pulse Resp BP BP 02/25/25 10:52 36.4 C L 81 16 110/67 02/25/25 07:45 02/25/25 07:18 71 02/25/25 07:14 36.9 C 83 20 135/77 02/25/25 04:25 36.6 C 75 24 145/65 H 02/25/25 03:19 36.7 C 72 16 118/64 02/24/25 23:54 36.4 C L 80 18 110/65 Pulse Ox O2 Del Method O2 Flow Rate 02/25/25 10:52 96 Free Flow/Blow-by 3.0 02/25/25 07:45 Nebulizer 02/25/25 07:18 02/25/25 07:14 96 Free Flow/Blow-by 3.0 02/25/25 04:25 94 Room Air 02/25/25 03:19 94 Free Flow/Blow-by 4 02/24/25 23:54 93 Free Flow/Blow-by 4 Laboratory Results Short CBC 02/25/25 Range/Units 04:43 WBC 8.06 (4.8-10.8) K/ul Hgb 8.6 L (12.0-16.0) g/dl Hct 26.0 L (37.0-47.0) % Plt Count 205 (130-400) K/uL [facility] 02/25/25 04:43 Sodium 137 Potassium 3.3 L Chloride 104 Carbon Dioxide 27 BUN 12 Creatinine 0.54 L Glucose 90 Calcium 7.9 L Medications Administered Current Inpatient Medications Clobazam (Clobazam 5 Mg Tab) 5 mg PO HS SWAPNA Stop: 03/24/25 20:59 Last Admin: 02/24/25 20:50 Dose: 5 mg Deutetrabenazine (Austedo Xr 36 Mg Tab) 1 each PO DAILY SWAPNA Stop: 03/24/25 13:59 Last Admin: 02/25/25 08:26 Dose: 1 each Enoxaparin Sodium (Enoxaparin Inj 40 Mg/0.4 Ml Syr) 40 mg SQ Q24H SWAPNA Stop: 03/24/25 08:59 Last Admin: 02/25/25 08:28 Dose: 40 mg Glycopyrrolate (Glycopyrrolate 1 Mg Tab) 1 mg PO TID SWAPNA Stop: 03/24/25 08:59 Last Admin: 02/25/25 08:28 Dose: 1 mg Cefepime HCl (Maxipime 2000mg) 2,000 mg in 20 mls @ 5 mls/min IV Q8H SWAPNA; Protocol Stop: 03/04/25 05:59 Last Admin: 02/25/25 05:04 Dose: 5 mls/min Magnesium Sulfate/Dextrose (Magnesium Sulfate / D5w) 1 gm in 100 mls @ 50 mls/hr IV Q2H SWAPNA Stop: 02/25/25 14:14 Last Admin: 02/25/25 10:40 Dose: 50 mls/hr Lamotrigine (Lamotrigine 100 Mg Tab) 200 mg PO AMHS SWAPNA; Protocol Stop: 03/24/25 08:59 Last Admin: 02/25/25 08:28 Dose: 200 mg Lamotrigine (Lamotrigine 25 Mg Tab) 50 mg PO AMHS SWAPNA; Protocol Stop: 03/24/25 08:59 Last Admin: 02/25/25 08:27 Dose: 50 mg Levetiracetam (Levetiracetam 500 Mg Tab) 1,500 mg PO BID SWAPNA Stop: 03/26/25 20:59 Last Admin: 02/25/25 08:28 Dose: 1,500 mg Nitroglycerin (Nitroglycerin Sl 0.4 Mg/Tab Tab) 0.4 mg SL Q5M PRN PRN Reason: Chest Pain Stop: 03/24/25 00:58 Ondansetron HCl (Ondansetron Inj 2 Mg/Ml 2 Ml Vial) 4 mg IV Q6H PRN PRN Reason: Nausea Stop: 03/24/25 00:58 Perphenazine (Perphenazine 2 Mg Tab) 2 mg PO AMHS [facility] Stop: 03/24/25 08:59 Last Admin: 02/25/25 08:28 Dose: 2 mg Perphenazine (Perphenazine 4 Mg Tab) 4 mg PO HS [facility] Stop: 03/24/25 20:59 Last Admin: 02/24/25 20:44 Dose: 4 mg Potassium Chloride (Potassium Chloride Pwd 20 Meq Pack) 20 meq PO BID SWAPNA Stop: 02/25/25 21:01 Last Admin: 02/25/25 08:27 Dose: 20 meq Potassium Phosphate (Pot Phosphate Monobasic W/ Sod Tab) 1 tab PO QID [facility] Stop: 02/26/25 13:01 Last Admin: 02/25/25 08:27 Dose: 1 tab Quetiapine Fumarate (Quetiapine Fumarate 200 Mg Tab) 200 mg PO HS [facility] Stop: 03/24/25 20:59 Last Admin: 02/24/25 20:46 Dose: 200 mg Quetiapine Fumarate (Quetiapine Fumarate 25 Mg Tablet) 50 mg PO QAM [facility] Stop: 03/24/25 08:59 Last Admin: 02/25/25 08:28 Dose: 50 mg Sertraline HCl (Sertraline Hcl 100 Mg Tablet) 100 mg PO QAM [facility] Stop: 03/24/25 08:59 Last Admin: 02/25/25 08:28 Dose: 100 mg
--- NOTE | 2025-02-25 13:40 | Urology Consultation ---
Date of Consultation February 25, 2025 Assessment & Plan (1) Ureteral stent present: (2) Nephrolithiasis: (3) Acute UTI: Plan 59-year-old female admitted with small bowel obstruction. She previously underwent cystoscopy and left ureteral stent placement (12/16/24) due to an obstructing stone and concern for obstructive pyelonephritis. She was scheduled for stone treatment earlier this week but was postponed due to her hospitalization/acute illness. She is currently scheduled for cystoscopy, left ureteroscopy, laser lithotripsy/stone treatment, stent exchange on 02/28/[address] Napoles. She is afebrile with stable vitals at present Labs today show no leukocytosis and stable renal function Urine culture 02/21 grew Pseudomonas; Blood cultures preliminary no growth x 48 hours She continues on cefepime, ID consulted Alcantara draining appropriately-urine is clear yellow CT abdomen pelvis on admission showing mild/moderate fullness of the left renal collecting system with a ureteral stent in place, no right-sided hydronephrosis KUB 02/23 shows the left ureteral stent in place and bilateral nephrolithiasis Will tentatively plan to proceed with cystoscopy, left retrograde pyelogram, left ureteroscopy, possible ureteral dilation, laser lithotripsy/stone treatment and stent exchange on 02/28/[address] Napoles given she remains stable and there are no acute changes. Continue antibiotic therapy per ID recommendations. Continue supportive care. Maintain Alcantara catheter. Will make NPO in anticipation of procedure on 02/28 Urology will follow, please call with any question/concerns. History of Present Illness Attending Physician: Bhavya Garcia MD History of Present Illness 59 year old female with a history of intellectual disability, autism, epilepsy, nonverbal and multiple medical comorbidities. She is currently admitted to the medicine service for small bowel obstruction. She previously underwent cystoscopy and left ureteral stent placement (12/16/24) due to an obstructing stone and concern for obstructive pyelonephritis. She was scheduled for stone treatment with Dr. Napoles on 02/22 but due to hospitalization, her procedure was postponed. She is currently admitted to medicine service. General surgery is following for management of small bowel obstruction. Her urine culture from 02/21/2025 grew Pseudomonas. Blood cultures are preliminary no growth x 48 hours. She is currently on cefepime. Infectious disease has been consulted. Patient seen and examined at bedside this morning. She is awake and appears comfortable. She is unable to provide any history. Alcantara intact and draining clear yellow urine. Allergies Allergy/AdvReac Type Severity Reaction Status Date / Time caffeine Allergy Unknown Unknown Verified 02/09/25 14:57 naproxen Allergy Unknown no rxn Verified 02/09/25 14:57 info listed NSAIDS (Non-Steroidal Allergy Unknown no rxn Verified 02/09/25 14:57 Anti-Inflamma listed Home Medications Medication Instructions Recorded Confirmed Type acetaminophen 500 mg tablet 500 mg PO QAM chronic pain 12/15/24 02/21/25 History aloe vera 1 applic topical Q1H PRN Sunburn 12/15/24 02/21/25 History aluminum-mag hydroxide-simethicone 10 ml PO DIRECTED PRN 12/15/24 02/21/25 History 400 mg-400 mg-40 mg/5 mL oral susp Indigestion (Maalox Maximum Strength) bisacodyl 5 mg tablet,delayed 10 mg PO Q3D PRN Constipation 12/15/24 02/21/25 History release (Dulcolax (bisacodyl)) chlorhexidine gluconate 0.12 % 1 applic buccal TID chronic 12/15/24 02/21/25 History mouthwash gingivitis clobazam 10 mg tablet (Onfi) 5 mg PO HS 12/15/24 02/21/25 History deutetrabenazine 36 mg 36 mg PO DAILY 12/15/24 02/21/25 History tablet,extended release 24 hr (Austedo XR) docusate sodium 100 mg capsule 100 mg PO AMHS 12/15/24 02/21/25 History famotidine 40 mg tablet (Pepcid) 40 mg PO DAILY 12/15/24 02/21/25 History glycopyrrolate 1 mg tablet 1 mg PO TID excessive drooling 12/15/24 02/21/25 History (Robinul) hydrocortisone 1 % topical cream 1 applic topical TID PRN Rash 12/15/24 02/21/25 History lamotrigine 100 mg tablet 50 mg PO AMHS 12/15/24 02/21/25 History lamotrigine 200 mg tablet 200 mg PO AMHS 12/15/24 02/21/25 History (Lamictal) levetiracetam 1,000 mg tablet 1,000 mg PO BID 12/15/24 02/21/25 History levetiracetam 500 mg tablet 500 mg PO BID 12/15/24 02/21/25 History (Keppra) loperamide 2 mg capsule (Imodium 2 mg PO DIRECTED PRN Loose Stool 12/15/24 02/21/25 History A-D) multivitamin 1 tab PO QAM 12/15/24 02/21/25 History perphenazine 2 mg tablet 2 mg PO AMHS 12/15/24 02/21/25 History perphenazine 4 mg tablet 4 mg PO HS 12/15/24 02/21/25 History phosphorated carbohydrate oral 30 ml PO DIRECTED PRN Nausea 12/15/24 02/21/25 History solution (Emetrol oral solution) polyethylene glycol 3350 17 17 g PO QAM 12/15/24 02/21/25 History gram/dose oral powder (Miralax) quetiapine 200 mg tablet (Seroquel) 200 mg PO HS 12/15/24 02/21/25 History quetiapine 50 mg tablet (Seroquel) 50 mg PO QAM 12/15/24 02/21/25 History sertraline 100 mg tablet (Zoloft) 100 mg PO QAM 12/15/24 02/21/25 History cholecalciferol (vitamin D3) 125 125 mcg PO QAM #30 tabs 12/24/24 02/21/25 Rx mcg (5,000 unit) tablet ferrous sulfate 325 mg (65 mg 325 mg PO BIDM #60 tabs 12/24/24 02/21/25 Rx iron) tablet,delayed release calcium polycarbophil 625 mg 625 mg PO QAM 01/05/25 02/21/25 History tablet (FiberCon) neomycin-bacitracn Zn-polymyxn 3.5 1 applic topical BID PRN abrasion 01/05/25 02/21/25 History mg-400 unit-5,000 unit top oint until resolved pkt (Triple Antibiotic) acetaminophen 500 mg tablet 1,000 mg PO Q4H PRN elevated 02/09/25 02/21/25 History temp/headache/mild pain fluoride (sodium) 1.1 % dental 1 applic dental BID 02/09/25 02/21/25 History cream (SF 5000 Plus) calcium 500 mg (as 1 tab PO QAM 02/21/25 02/21/25 History carbonate)-vitamin D3 5 mcg (200 unit) tablet dextromethorphan-guaifenesin 10 5 ml PO Q4 PRN Cough 02/21/25 02/21/25 History mg-200 mg/5 mL oral liquid nystatin 100,000 unit/gram topical 1 applic topical HS 02/21/25 02/21/25 History cream Patient History Medical History (Updated 02/25/25 @ 13:32 by CHARLEEN Arreola) Candidal cystitis and urethritis Other abnormalities of gait and mobility Respiratory failure with hypoxia hx not known per facility, hospitalized [facility] december 2024. At current O2 sats while awake 95 % per facility. Bilateral pleural effusion Left ureteral calculus Complicated UTI (urinary tract infection) Osteoarthritis of hips, bilateral Autism Severe intellectual disability Nocturnal hypoxemia per facility while in hospital 12/2024, suspected sleep apnea, sats would drop at night. Denies occuring currently. Alcantara catheter in place History of sepsis hospitalized [facility] december 2024. Resolved per facility. History of pneumonia (12/2024) hospitalized at [facility]. december 2024. resolved per facility. Congenital hiatus hernia Umbilical hernia Hydronephrosis with renal and ureteral calculous obstruction Iron deficiency anemia Epilepsy Fatty (change of) liver, not elsewhere classified Psychomotor deficit Flat foot Other acquired deformity of toe toes Myopathy extraocular muscles right orbit Diplopia Other forms of scoliosis, lumbar region Pure hypercholesterolemia, unspecified Major depressive disorder, recurrent Hypermetropia, bilateral Diarrhea, unspecified Drug induced subacute dyskinesia Tremor, unspecified Restlessness and agitation GERD without esophagitis Deficiency of other vitamins Depression Constipation Unspecified cataract Lump of right breast Urinary incontinence Chronic pain Repeated falls facility denies fall in past 90 days. Astigmatism unspecified, right eye unspecified, left eye Chronic gum disease chronic gingivitis , plaque induced Dysphagia Anxiety disorder, unspecified OCD (obsessive compulsive disorder) Dementia unspecified Somnolence Polypharmacy Surgical History History of cystoscopy (~12/16/24) Cystoscopy with irrigation of bladder and catheter placement. Left ureteroscopy, Retrograde Pyelogram, Left Stent Placement, ureteral dilation, and aspiration of left kidney Grade 2 view, glidescope 3, ETT 7.0. Surgical history unknown Social History Smoking Status: Unknown if ever smoked Second Hand Exposure: No; Hx Alcohol Use: No Hx Substance Use: No Preferred Language: Sami Communication Ability: Unable Communication Ability Comment: pt. nonverbal, sometimes cooperates with staff sonographer Required: No Beliefs That Will Affect Care: None marital status: Single Current Living Situation: Other Current Living Situation Comment: long-term current occupational status: disabled Feels Safe at Home: Yes Assistive Devices: Walker and Wheelchair Assistive Devices Comment: Unknown Review of Systems Review of Systems: Unobtainable due to cognitive status Physical Exam Constitutional: no acute distress Respiratory: no respiratory distress and no labored breathing Neurologic: awake Psychiatric: Orientation: alert Genitourinary: Alcantara intact draining clear yellow urine Results & Data Vital Signs (Past 12 Hours) Vital Signs Temp Pulse Pulse Pulse Resp BP BP 02/25/25 10:52 36.4 C L 81 16 110/67 02/25/25 07:45 02/25/25 07:18 71 02/25/25 07:14 36.9 C 83 20 135/77 02/25/25 04:25 36.6 C 75 24 145/65 H 02/25/25 03:19 36.7 C 72 16 118/64 Pulse Ox O2 Del Method O2 Flow Rate 02/25/25 10:52 96 Free Flow/Blow-by 3.0 02/25/25 07:45 Nebulizer 02/25/25 07:18 02/25/25 07:14 96 Free Flow/Blow-by 3.0 02/25/25 04:25 94 Room Air 02/25/25 03:19 94 Free Flow/Blow-by 4 PG Care Time/CCT Total # of Minutes Spent Total Time Spent with Patient: Total time spent is greater than 50% in coordination of care (as documented) at patient's floor/unit and/or counseling patient: Coding Level of Care Code 99010 IN/OBS CONSULT LVL 3,45M Diagnoses Ureteral stent present Z96.0 Nephrolithiasis N20.0 Acute UTI N39.0
--- NOTE | 2025-02-25 16:25 | Hospitalist Progress Note ---
Date of Service February 25, 2025 Assessment & Plan (1) Small bowel obstruction: Plan: Ms. Delatorre is a 59-year-old female from [facility] with past medical history significant for severe intellectual disability, autism, epilepsy, recurrent MDD, OCD, mood disorder, history of SIADH, CKD stage III, GERD, sensorineural hearing loss of both ears, lesion of right lower liver, fecal and urinary incontinence, left nephrolithiasis, excessive salivation, osteoart hritis admitted for nausea and vomiting secondary to small bowel obstruction. Patient was also noted to have acute cystitis. #Small bowel obstruction resolved Nausea and vomiting improved. NG tube is out and she is on clear liquids. Advance diet as tolerated per surgery CT scan shows small bowel obstruction Surgery consulted, reviewed recommendations: advance diet as tolerated, signed off 02/25 #Acute complicated cystitis Recently had left nephroureteral stent placement for kidney stones and had Pseudomonas UTI Currently on cefepime. Cultures are growing Pseudomonas again with broad sensitivity Blood cultures are negative ID consulted, reviewed recommendations: -On discharge, transition to ciprofloxacin 500 mg PO q12h through 03/07 to complete a total 14 day course of antibiotics, given L ureteral stent in place. Please check EKG to confirm QTc is not prolonged prior to starting ciprofloxacin. #hypomagnesemia #hypophosphatemia #hypokalemia continue replacement trends lytes in am #Hypoxia Possible aspiration Continue on antibiotics as above reposition as able #Chronic heart failure with preserved ejection fraction IV fluids discontinued monitor for volume overload #Intellectual disability/, MDD,/OCD/, tardive dyskinesia Nonverbal Continue home medications #Epilepsy Continue home p.o. medications when taking p.o. DVT prophylaxis:Lovenox Disposition Continue med/telemetry Full code. I spent a total of 50 minutes coordinating, documenting and providing care for this patient excluding time spent in performance of separately billable services Admission and Anticipated Discharge Date Admission Date: February 22, 2025 Subjective NAEO Patient nonverbal, doesn't appear to be in distress VS reviewed Physical Exam Constitutional: WD/WN, vitals as above nonverbal, fairly contracted, moving BUE Respiratory: diminished 2/2 effort Cardiovascular: RRR, no murmur, no edema Gastrointestinal (Abdomen): normal bowel sounds, soft, nontender, no hepatosplenomegaly Results & Data Results & Data Vital Signs (Past 12 Hours) Vital Signs Temp Pulse Pulse Pulse Resp BP Pulse Ox 02/25/25 15:32 78 02/25/25 15:28 36.5 C 86 18 129/66 95 02/25/25 10:52 36.4 C L 81 16 110/67 96 02/25/25 07:45 02/25/25 07:18 71 02/25/25 07:14 36.9 C 83 20 135/77 96 02/25/25 04:25 36.6 C 75 24 145/65 H 94 O2 Del Method O2 Flow Rate 02/25/25 15:32 02/25/25 15:28 Free Flow/Blow-by 3 02/25/25 10:52 Free Flow/Blow-by 3.0 02/25/25 07:45 Nebulizer 02/25/25 07:18 02/25/25 07:14 Free Flow/Blow-by 3.0 02/25/25 04:25 Room Air Laboratory Results Short CBC 02/25/25 Range/Units 04:43 WBC 8.06 (4.8-10.8) K/ul Hgb 8.6 L (12.0-16.0) g/dl Hct 26.0 L (37.0-47.0) % Plt Count 205 (130-400) K/uL BMP 02/25/25 04:43 Sodium 137 Potassium 3.3 L Chloride 104 Carbon Dioxide 27 BUN 12 Creatinine 0.54 L Glucose 90 Calcium 7.9 L Medications Administered Home Medications Medication Instructions Recorded Confirmed Last Taken acetaminophen 500 mg tablet 500 mg PO QAM chronic pain 12/15/24 02/21/25 01/16/25 19:30 aloe vera 1 applic topical Q1H PRN Sunburn 12/15/24 02/21/25 Unknown aluminum-mag hydroxide-simethicone 10 ml PO DIRECTED PRN 12/15/24 02/21/25 Unknown 400 mg-400 mg-40 mg/5 mL oral susp Indigestion (Maalox Maximum Strength) bisacodyl 5 mg tablet,delayed 10 mg PO Q3D PRN Constipation 12/15/24 02/21/25 Unknown release (Dulcolax (bisacodyl)) chlorhexidine gluconate 0.12 % 1 applic buccal TID chronic 12/15/24 02/21/25 01/16/25 20:00 mouthwash gingivitis clobazam 10 mg tablet (Onfi) 5 mg PO HS 12/15/24 02/21/25 01/16/25 19:30 deutetrabenazine 36 mg 36 mg PO DAILY 12/15/24 02/21/25 01/16/25 08:30 tablet,extended release 24 hr (Austedo XR) docusate sodium 100 mg capsule 100 mg PO AMHS 12/15/24 02/21/25 01/16/25 19:30 famotidine 40 mg tablet (Pepcid) 40 mg PO DAILY 12/15/24 02/21/25 01/16/25 19:30 glycopyrrolate 1 mg tablet 1 mg PO TID excessive drooling 12/15/24 02/21/25 01/16/25 19:30 (Robinul) hydrocortisone 1 % topical cream 1 applic topical TID PRN Rash 12/15/24 02/21/25 Unknown lamotrigine 100 mg tablet 50 mg PO AMHS 12/15/24 02/21/25 01/16/25 19:30 lamotrigine 200 mg tablet 200 mg PO AMHS 12/15/24 02/21/25 01/16/25 19:30 (Lamictal) levetiracetam 1,000 mg tablet 1,000 mg PO BID 12/15/24 02/21/25 01/16/25 19:30 levetiracetam 500 mg tablet 500 mg PO BID 12/15/24 02/21/25 01/16/25 19:30 (Keppra) loperamide 2 mg capsule (Imodium 2 mg PO DIRECTED PRN Loose Stool 12/15/24 02/21/25 Unknown A-D) multivitamin 1 tab PO QAM 12/15/24 02/21/25 01/16/25 08:30 perphenazine 2 mg tablet 2 mg PO AMHS 12/15/24 02/21/25 01/16/25 19:30 perphenazine 4 mg tablet 4 mg PO 12/15/24 02/21/25 01/16/25 19:30 phosphorated carbohydrate oral 30 ml PO DIRECTED PRN Nausea 12/15/24 02/21/25 Unknown solution (Emetrol oral solution) polyethylene glycol 3350 17 17 g PO QAM 0402/21/25 01/16/25 08:30 gram/dose oral powder (Miralax) quetiapine 200 mg tablet (Seroquel) 200 mg PO HS 12/15/24 02/21/25 01/16/25 19:30 quetiapine 50 mg tablet (Seroquel) 50 mg PO QAM 12/15/24 02/21/25 01/16/25 08:30 sertraline 100 mg tablet (Zoloft) 100 mg PO QAM 12/15/24 02/21/25 01/16/25 08:30 cholecalciferol (vitamin D3) 125 125 mcg PO QAM #30 tabs 12/24/24 02/21/25 01/16/25 08:30 mcg (5,000 unit) tablet ferrous sulfate 325 mg (65 mg 325 mg PO BIDM #60 tabs 12/24/24 02/21/25 01/16/25 17:00 iron) tablet,delayed release calcium polycarbophil 625 mg 625 mg PO QAM 01/05/25 02/21/25 01/16/25 08:30 tablet (FiberCon) neomycin-bacitracn Zn-polymyxn 3.5 1 applic topical BID PRN abrasion 01/05/25 02/21/25 Unknown mg-400 unit-5,000 unit top oint until resolved pkt (Triple Antibiotic) acetaminophen 500 mg tablet 1,000 mg PO Q4H PRN elevated 02/09/25 02/21/25 Unknown temp/headache/mild pain fluoride (sodium) 1.1 % dental 1 applic dental BID 02/09/25 02/21/25 Unknown cream (SF 5000 Plus) calcium 500 mg (as 1 tab PO QAM 02/21/25 02/21/25 Unknown carbonate)-vitamin D3 5 mcg (200 unit) tablet dextromethorphan-guaifenesin 10 5 ml PO Q4 PRN Cough 02/21/25 02/21/25 Unknown mg-200 mg/5 mL oral liquid nystatin 100,000 unit/gram topical 1 applic topical HS 02/21/25 02/21/25 Unknown cream Active Medications Generic Name Dose Route Start Last Admin Trade Name Freq PRN Reason Stop Dose Admin Clobazam 5 mg 02/22/25 21:00 02/24/25 20:50 Clobazam 5 Mg Tab PO 03/24/25 20:59 5 mg HS SWAPNA Administration Deutetrabenazine 1 each 02/22/25 14:00 02/25/25 08:26 Austedo Xr 36 Mg Tab PO 03/24/25 13:59 1 each DAILY SWAPNA Administration Enoxaparin Sodium 40 mg 02/22/25 09:00 02/25/25 08:28 Enoxaparin Inj 40 Mg/0.4 Ml Syr SQ 03/24/25 08:59 40 mg Q24H SWAPNA Administration Glycopyrrolate 1 mg 02/22/25 09:00 02/25/25 13:44 Glycopyrrolate 1 Mg Tab PO 03/24/25 08:59 1 mg TID SWAPNA Administration Cefepime HCl 2,000 mg in 20 mls @ 5 mls/min 02/22/25 06:00 02/25/25 13:50 Maxipime 2000mg IV 03/04/25 05:59 5 mls/min Q8H SWAPNA Administration Protocol Lamotrigine 200 mg 02/22/25 09:00 02/25/25 08:28 Lamotrigine 100 Mg Tab PO 03/24/25 08:59 200 mg AMHS SWAPNA Administration Protocol Lamotrigine 50 mg 02/22/25 09:00 02/25/25 08:27 Lamotrigine 25 Mg Tab PO 03/24/25 08:59 50 mg AMHS SWAPNA Administration Protocol Levetiracetam 1,500 mg 02/24/25 21:00 02/25/25 08:28 Levetiracetam 500 Mg Tab PO 03/26/25 20:59 1,500 mg BID SWAPNA Administration Perphenazine 2 mg 02/22/25 09:00 02/25/25 08:28 Perphenazine 2 Mg Tab PO 03/24/25 08:59 2 mg AMHS SWAPNA Administration Perphenazine 4 mg 02/22/25 21:00 02/24/25 20:44 Perphenazine 4 Mg Tab PO 03/24/25 20:59 4 mg HS SWAPNA Administration Potassium Chloride 20 meq 02/25/25 09:00 02/25/25 08:27 Potassium Chloride Pwd 20 Meq Pack PO 02/25/25 21:01 20 meq BID SWAPNA Administration Potassium Phosphate 1 tab 02/25/25 09:00 02/25/25 13:44 Pot Phosphate Monobasic W/ Sod Tab PO 02/26/25 13:01 1 tab QID SWAPNA Administration Quetiapine Fumarate 200 mg 02/22/25 21:00 02/24/25 20:46 Quetiapine Fumarate 200 Mg Tab PO 03/24/25 20:59 200 mg HS SWAPNA Administration Quetiapine Fumarate 50 mg 02/22/25 09:00 02/25/25 08:28 Quetiapine Fumarate 25 Mg Tablet PO 03/24/25 08:59 50 mg QAM SWAPNA Administration Sertraline HCl 100 mg 02/22/25 09:00 02/25/25 08:28 Sertraline Hcl 100 Mg Tablet PO 03/24/25 08:59 100 mg QAM SWAPNA Administration
[2025-02-26 07:53] LABS: Hematocrit (blood only) 27.8 % (37.0-47.0); Hemoglobin 9.0 g/dl (12.0-16.0); Mean Corpuscular Hemoglobin 29.5 pg (25.0-34.0); Mean Corpuscular Volume 91.1 fL (80.0-100.0); Platelet Count 227 K/uL (130-400); RDW Standard Deviation 44.9 fL (36.4-46.3); Red Blood Count 3.05 M/uL (4.20-5.40); White Blood Count 7.89 K/ul (4.8-10.8)
[2025-02-26 08:18] LABS: Anion Gap 4.0 (3-11); Blood Urea Nitrogen 7.0 mg/dl (6-23); Calcium 7.8 mg/dl (8.6-10.3); Carbon Dioxide 31.0 mmol/L (21-32); Chloride 104.0 mmol/L (98-107); Creatinine Clr Calc Pharmacy 100.6 ml/min; Glucose 90.0 mg/dl (70-99(Fasting)); Magnesium 2.3 mg/dl (1.7-2.4); Potassium 4.7 mmol/L (3.5-5.1); Sodium 139.0 mmol/L (136-145)
--- NOTE | 2025-02-26 14:02 | Hospitalist Progress Note ---
Date of Service February 26, 2025 Assessment & Plan (1) Small bowel obstruction: Plan: Ms. Delatorre is a 59-year-old female from [facility] with past medical history significant for severe intellectual disability, autism, epilepsy, recurrent MDD, OCD, mood disorder, history of SIADH, CKD stage III, GERD, sensorineural hearing loss of both ears, lesion of right lower liver, fecal and urinary incontinence, left nephrolithiasis, excessive salivation, osteoart hritis admitted for nausea and vomiting secondary to small bowel obstruction. Patient was also noted to have acute cystitis. Patient is awaiting stent exchange on Wednesday 02/28 #Small bowel obstruction resolved Nausea and vomiting improved. NG tube is out and she is on clear liquids. Advance diet as tolerated per surgery CT scan shows small bowel obstruction Surgery consulted, reviewed recommendations: advance diet as tolerated, signed off 02/25 Easy chew diet per prior speech recommendations #Acute complicated cystitis Recently had left nephroureteral stent placement for kidney stones and had Pseudomonas UTI Currently on cefepime. Cultures are growing Pseudomonas again with broad sensitivity Blood cultures are negative ID consulted, reviewed recommendations: -On discharge, transition to ciprofloxacin 500 mg PO q12h through 03/07 to complete a total 14 day course of antibiotics, given L ureteral stent in place. plan to check EKG in am NPO on 02/27 at midnight for procedure 02/28 #hypomagnesemia #hypophosphatemia #hypokalemia continue replacement trends lytes in am #Hypoxia Possible aspiration Continue on antibiotics as above reposition as able #Chronic heart failure with preserved ejection fraction IV fluids discontinued monitor for volume overload #Intellectual disability/, MDD,/OCD/, tardive dyskinesia Nonverbal Continue home medications #Epilepsy Continue home p.o. medications when taking p.o. DVT prophylaxis:Lovenox Disposition Continue med/telemetry Full code. I spent a total of 45 minutes coordinating, documenting and providing care for this patient excluding time spent in performance of separately billable services Admission and Anticipated Discharge Date Admission Date: February 22, 2025 Subjective NAEO Reaching for coffee at bedside tray, able to hold cup and drink by self no apparent distress noted Physical Exam Constitutional: WD/WN, vitals as above nonverbal, but awake Respiratory: normal respiratory effort, lungs clear to auscultation Cardiovascular: tachycardic regular Gastrointestinal (Abdomen): normal bowel sounds, soft, nontender, no hepatosplenomegaly Results & Data Results & Data Vital Signs (Past 12 Hours) Vital Signs Temp Pulse Pulse Resp BP Pulse Ox O2 Del Method 02/26/25 13:30 101 H 02/26/25 11:52 37.1 C 89 130/76 95 Room Air 02/26/25 07:57 37.1 C 77 142/78 H 93 Room Air 02/26/25 07:45 Room Air 02/26/25 07:19 75 02/26/25 03:48 36.8 C 74 20 138/67 94 Room Air Laboratory Results Short CBC 02/26/25 Range/Units 06:57 WBC 7.89 (4.8-10.8) K/ul Hgb 9.0 L (12.0-16.0) g/dl Hct 27.8 L (37.0-47.0) % Plt Count 227 (130-400) K/uL BMP 02/26/25 06:57 Sodium 139 Potassium 4.7 D Chloride 104 Carbon Dioxide 31 BUN 7 Creatinine 0.52 L Glucose 90 Calcium 7.8 L Medications Administered Home Medications Medication Instructions Recorded Confirmed Last Taken acetaminophen 500 mg tablet 500 mg PO QAM chronic pain 12/15/24 02/21/25 01/16/25 19:30 aloe vera 1 applic topical Q1H PRN Sunburn 12/15/24 02/21/25 Unknown aluminum-mag hydroxide-simethicone 10 ml PO DIRECTED PRN 12/15/24 02/21/25 Unknown 400 mg-400 mg-40 mg/5 mL oral susp Indigestion (Maalox Maximum Strength) bisacodyl 5 mg tablet,delayed 10 mg PO Q3D PRN Constipation 12/15/24 02/21/25 Unknown release (Dulcolax (bisacodyl)) chlorhexidine gluconate 0.12 % 1 applic buccal TID chronic 12/15/24 02/21/25 01/16/25 20:00 mouthwash gingivitis clobazam 10 mg tablet (Onfi) 5 mg PO HS 12/15/24 02/21/25 01/16/25 19:30 deutetrabenazine 36 mg 36 mg PO DAILY 12/15/24 02/21/25 01/16/25 08:30 tablet,extended release 24 hr (Austedo XR) docusate sodium 100 mg capsule 100 mg PO AMHS 12/15/24 02/21/25 01/16/25 19:30 famotidine 40 mg tablet (Pepcid) 40 mg PO DAILY 12/15/24 02/21/25 01/16/25 19:30 glycopyrrolate 1 mg tablet 1 mg PO TID excessive drooling 12/15/24 02/21/25 01/16/25 19:30 (Robinul) hydrocortisone 1 % topical cream 1 applic topical TID PRN Rash 12/15/24 02/21/25 Unknown lamotrigine 100 mg tablet 50 mg PO AMHS 12/15/24 02/21/25 01/16/25 19:30 lamotrigine 200 mg tablet 200 mg PO AMHS 12/15/24 02/21/25 01/16/25 19:30 (Lamictal) levetiracetam 1,000 mg tablet 1,000 mg PO BID 12/15/24 02/21/25 01/16/25 19:30 levetiracetam 500 mg tablet 500 mg PO BID 12/15/24 02/21/25 01/16/25 19:30 (Keppra) loperamide 2 mg capsule (Imodium 2 mg PO DIRECTED PRN Loose Stool 12/15/24 02/21/25 Unknown A-D) multivitamin 1 tab PO QAM 12/15/24 02/21/25 01/16/25 08:30 perphenazine 2 mg tablet 2 mg PO AMHS 12/15/24 02/21/25 01/16/25 19:30 perphenazine 4 mg tablet 4 mg PO HS 12/15/24 02/21/25 01/16/25 19:30 phosphorated carbohydrate oral 30 ml PO DIRECTED PRN Nausea 12/15/24 02/21/25 Unknown solution (Emetrol oral solution) polyethylene glycol 3350 17 17 g PO QAM 12/15/24 02/21/25 01/16/25 08:30 gram/dose oral powder (Miralax) quetiapine 200 mg tablet (Seroquel) 200 mg PO HS 12/15/24 02/21/25 01/16/25 19:30 quetiapine 50 mg tablet (Seroquel) 50 mg PO QAM 12/15/24 02/21/25 01/16/25 08:30 sertraline 100 mg tablet (Zoloft) 100 mg PO QAM 12/15/24 02/21/25 01/16/25 08:30 cholecalciferol (vitamin D3) 125 125 mcg PO QAM #30 tabs 12/24/24 02/21/25 01/16/25 08:30 mcg (5,000 unit) tablet ferrous sulfate 325 mg (65 mg 325 mg PO BIDM #60 tabs 12/24/24 02/21/25 01/16/25 17:00 iron) tablet,delayed release calcium polycarbophil 625 mg 625 mg PO QAM 01/05/25 02/21/25 01/16/25 08:30 tablet (FiberCon) neomycin-bacitracn Zn-polymyxn 3.5 1 applic topical BID PRN abrasion 01/05/25 02/21/25 Unknown mg-400 unit-5,000 unit top oint until resolved pkt (Triple Antibiotic) acetaminophen 500 mg tablet 1,000 mg PO Q4H PRN elevated 02/09/25 02/21/25 Unknown temp/headache/mild pain fluoride (sodium) 1.1 % dental 1 applic dental BID 02/09/25 02/21/25 Unknown cream (SF 5000 Plus) calcium 500 mg (as 1 tab PO QAM 02/21/25 02/21/25 Unknown carbonate)-vitamin D3 5 mcg (200 unit) tablet dextromethorphan-guaifenesin 10 5 ml PO Q4 PRN Cough 02/21/25 02/21/25 Unknown mg-200 mg/5 mL oral liquid nystatin 100,000 unit/gram topical 1 applic topical HS 02/21/25 02/21/25 Unknown cream Active Medications Generic Name Dose Route Start Last Admin Trade Name Freq PRN Reason Stop Dose Admin Clobazam 5 mg 02/22/25 21:00 02/25/25 21:15 Clobazam 5 Mg Tab PO 03/24/25 20:59 5 mg HS SWAPNA Administration Deutetrabenazine 1 each 02/22/25 14:00 02/26/25 08:41 Austedo Xr 36 Mg Tab PO 03/24/25 13:59 1 each DAILY SWAPNA Administration Enoxaparin Sodium 40 mg 02/22/25 09:00 02/26/25 08:45 Enoxaparin Inj 40 Mg/0.4 Ml Syr SQ 03/24/25 08:59 40 mg Q24H SWAPNA Administration Glycopyrrolate 1 mg 02/22/25 09:00 02/26/25 13:56 Glycopyrrolate 1 Mg Tab PO 03/24/25 08:59 1 mg TID SWAPNA Administration Cefepime HCl 2,000 mg in 20 mls @ 5 mls/min 02/22/25 06:00 02/26/25 13:56 Maxipime 2000mg IV 03/04/25 05:59 5 mls/min Q8H SWAPNA Administration Protocol Lamotrigine 200 mg 02/22/25 09:00 02/26/25 08:41 Lamotrigine 100 Mg Tab PO 03/24/25 08:59 200 mg AMHS SWAPNA Administration Protocol Lamotrigine 50 mg 02/22/25 09:00 02/26/25 08:44 Lamotrigine 25 Mg Tab PO 03/24/25 08:59 50 mg AMHS SWAPNA Administration Protocol Levetiracetam 1,500 mg 02/24/25 21:00 02/26/25 09:00 Levetiracetam 500 Mg Tab PO 03/26/25 20:59 1,500 mg BID SWAPNA Administration Perphenazine 2 mg 02/22/25 09:00 02/26/25 08:44 Perphenazine 2 Mg Tab PO 03/24/25 08:59 2 mg AMHS SWAPNA Administration Perphenazine 4 mg 02/22/25 21:00 02/25/25 21:12 Perphenazine 4 Mg Tab PO 03/24/25 20:59 4 mg HS SWAPNA Administration Quetiapine Fumarate 200 mg 02/22/25 21:00 02/25/25 21:14 Quetiapine Fumarate 200 Mg Tab PO 03/24/25 20:59 200 mg HS SWAPNA Administration Quetiapine Fumarate 50 mg 02/22/25 09:00 02/26/25 09:00 Quetiapine Fumarate 25 Mg Tablet PO 03/24/25 08:59 50 mg QAM SWAPNA Administration Sertraline HCl 100 mg 02/22/25 09:00 02/26/25 08:41 Sertraline Hcl 100 Mg Tablet PO 03/24/25 08:59 100 mg QAM SWAPNA Administration
--- NOTE | 2025-02-26 19:32 | Communication Note ---
Date of Service: February 26, 2025 Patient noted to be wheezy with cough symptoms. Concern for aspiration as per RN. Chest x-ray as per interpretation: Atelectasis, interstitial congestion AP Wheezing/cough symptoms Possible aspiration pneumonia Possible pulmonary congestion Zosyn in place of cefepime Rx (latter rx currently being given for Pseudomonas UTI) Lasix 1 dose Strict n.p.o. Aspiration precautions, [employer] micki
--- NOTE | 2025-02-26 20:06 | XRay Report ---
Chest radiograph, one view History: Cough Comparison: February 21, 2025 Findings: Single AP view of the chest performed. No focal consolidation or pleural effusion is visualized. No pneumothorax. Calcific granuloma inferior left lung. The cardiomediastinal silhouette is within normal limits. Indistinct pulmonary vascularity. Mild hazy perihilar opacity. No evidence for lymphadenopathy. No visualized bony or soft tissue abnormality. Impression: Indistinct pulmonary vascularity and mildly hazy perihilar opacity favoring pulmonary edema Electronically signed by Antwan Wadsworth 02-26-2025 8:05 PM
[2025-02-26] MEDS: ALBUT/IPRATROP 3MG/0.5MG NEB 3 ML VIAL NEB STA (20:14)
[2025-02-26] MEDS: PIPERACILLIN/TAZOBACTAM 4.5 GM/100 ML BAG IV SCH (21:11)
[2025-02-26] MEDS: CALCIUM CARBONATE 1,250 MG/5 ML UDC PO SCH (21:22)
[2025-02-26] MEDS: FUROSEMIDE INJ 20 MG/2 ML VIAL IV ONE (22:24)
[2025-02-27] MEDS: PIPERACILLIN/TAZOBACTAM 4.5 GM/100 ML BAG IV SCH (02:44)
[2025-02-27 06:12] LABS: Hematocrit (blood only) 29.5 % (37.0-47.0); Hemoglobin 9.7 g/dl (12.0-16.0); Mean Corpuscular Hemoglobin 29.8 pg (25.0-34.0); Mean Corpuscular Volume 90.8 fL (80.0-100.0); Platelet Count 236 K/uL (130-400); RDW Standard Deviation 45.8 fL (36.4-46.3); Red Blood Count 3.25 M/uL (4.20-5.40); White Blood Count 9.81 K/ul (4.8-10.8)
[2025-02-27 06:30] LABS: Anion Gap 6.0 (3-11); Blood Urea Nitrogen 11.0 mg/dl (6-23); Calcium 8.3 mg/dl (8.6-10.3); Carbon Dioxide 33.0 mmol/L (21-32); Chloride 99.0 mmol/L (98-107); Creatinine Clr Calc Pharmacy 79.3 ml/min; Glucose 111.0 mg/dl (70-99(Fasting)); Magnesium 2.1 mg/dl (1.7-2.4); Potassium 4.2 mmol/L (3.5-5.1); Sodium 138.0 mmol/L (136-145)
--- NOTE | 2025-02-27 13:02 | Hospitalist Progress Note ---
Date of Service February 27, 2025 Assessment & Plan (1) Small bowel obstruction: Plan: Ms. Delatorre is a 59-year-old female from [facility] with past medical history significant for severe intellectual disability, autism, epilepsy, recurrent MDD, OCD, mood disorder, history of SIADH, CKD stage III, GERD, sensorineural hearing loss of both ears, lesion of right lower liver, fecal and urinary incontinence, left nephrolithiasis, excessive salivation, osteoart hritis admitted for nausea and vomiting secondary to small bowel obstruction. Patient was also noted to have acute cystitis. Patient is awaiting stent exchange on Wednesday 02/28 Evaluated by speech given concerns for aspiration. It seems the xray was more suspicious of edema v actual aspiration. Speech does not suspect that the coughing event was necessarily related to an aspiration event, however, patient is unlikely to be able to complete a video swallow test. Patient was recommended to be on a mechanical soft diet for now (minced/moist); however, there is reports that patient prefers easy chew for food preference at [facility]--this was deemed an acceptable upgrade if requested or patient refusing minced and moist as recommended. Patient to be npo at midnight for stent exchange. Dispo contingent on postop recovery #Acute complicated cystitis Recently had left nephroureteral stent placement for kidney stones and had Pseudomonas UTI Transitioned to zosyn iso possible aspiration. Cultures are growing Pseudomonas again with broad sensitivity Blood cultures are negative ID consulted, reviewed recommendations: -On discharge, transition to ciprofloxacin 500 mg PO q12h through 03/07 to complete a total 14 day course of antibiotics, given L ureteral stent in place. EKG ordered NPO on 02/27 at midnight for procedure 02/28 #hypomagnesemia #hypophosphatemia #hypokalemia continue replacement prn trends lytes in am #Hypoxia Possible aspiration Continue on antibiotics as above reposition as able #Chronic heart failure with preserved ejection fraction IV fluids discontinued monitor for volume overload #Intellectual disability/, MDD,/OCD/, tardive dyskinesia Nonverbal Continue home medications #Epilepsy Continue home p.o. medications when taking p.o. #Small bowel obstruction resolved Nausea and vomiting improved. NG tube is out and she is on clear liquids. Advance diet as tolerated per surgery CT scan shows small bowel obstruction Surgery consulted, reviewed recommendations: advance diet as tolerated, signed off 02/25 Easy chew diet per prior speech recommendations DVT prophylaxis:Lovenox Disposition Continue med/telemetry Full code. I spent a total of 45 minutes coordinating, documenting and providing care for this patient excluding time spent in performance of separately billable services Admission and Anticipated Discharge Date Admission Date: February 22, 2025 Subjective reports of possible aspiration over night calm and resting, laying on left side sleeping, no distress upon entering room Easily awakened patient, irritated by this disruption, but no visible signs of respiratory issues promptly resumed resting once exam over Physical Exam Constitutional: WD/WN, vitals as above Respiratory: normal respiratory effort, lungs clear to auscultation (no wheezing noted ) Cardiovascular: RRR, no murmur, no edema Gastrointestinal (Abdomen): normal bowel sounds, soft, nontender, no hepatosplenomegaly Results & Data Results & Data Vital Signs (Past 12 Hours) Vital Signs Temp Pulse Pulse Resp BP Pulse Ox O2 Del Method 02/27/25 11:31 36.8 C 81 16 118/48 L 96 Room Air 02/27/25 08:03 Room Air 02/27/25 07:47 36.8 C 73 16 127/74 94 Room Air 02/27/25 07:13 77 02/27/25 03:16 36.6 C 86 20 128/66 94 Room Air Laboratory Results Short CBC 02/27/25 Range/Units 05:36 WBC 9.81 (4.8-10.8) K/ul Hgb 9.7 L (12.0-16.0) g/dl Hct 29.5 L (37.0-47.0) % Plt Count 236 (130-400) K/uL BMP 02/27/25 05:36 Sodium 138 Potassium 4.2 Chloride 99 Carbon Dioxide 33 H BUN 11 Creatinine 0.66 Glucose 111 H Calcium 8.3 L Medications Administered Home Medications Medication Instructions Recorded Confirmed Last Taken acetaminophen 500 mg tablet 500 mg PO QAM chronic pain 12/15/24 02/21/25 01/16/25 19:30 aloe vera 1 applic topical Q1H PRN Sunburn 12/15/24 02/21/25 Unknown aluminum-mag hydroxide-simethicone 10 ml PO DIRECTED PRN 12/15/24 02/21/25 Unknown 400 mg-400 mg-40 mg/5 mL oral susp Indigestion (Maalox Maximum Strength) bisacodyl 5 mg tablet,delayed 10 mg PO Q3D PRN Constipation 12/15/24 02/21/25 Unknown release (Dulcolax (bisacodyl)) chlorhexidine gluconate 0.12 % 1 applic buccal TID chronic 12/15/24 02/21/25 01/16/25 20:00 mouthwash gingivitis clobazam 10 mg tablet (Onfi) 5 mg PO HS 12/15/24 02/21/25 01/16/25 19:30 deutetrabenazine 36 mg 36 mg PO DAILY 12/15/24 02/21/25 01/16/25 08:30 tablet,extended release 24 hr (Austedo XR) docusate sodium 100 mg capsule 100 mg PO AMHS 12/15/24 02/21/25 01/16/25 19:30 famotidine 40 mg tablet (Pepcid) 40 mg PO DAILY 12/15/24 02/21/25 01/16/25 19:30 glycopyrrolate 1 mg tablet 1 mg PO TID excessive drooling 12/15/24 02/21/25 01/16/25 19:30 (Robinul) hydrocortisone 1 % topical cream 1 applic topical TID PRN Rash 12/15/24 02/21/25 Unknown lamotrigine 100 mg tablet 50 mg PO AMHS 12/15/24 02/21/25 01/16/25 19:30 lamotrigine 200 mg tablet 200 mg PO AMHS 12/15/24 02/21/25 01/16/25 19:30 (Lamictal) levetiracetam 1,000 mg tablet 1,000 mg PO BID 12/15/24 02/21/25 01/16/25 19:30 levetiracetam 500 mg tablet 500 mg PO BID 12/15/24 02/21/25 01/16/25 19:30 (Keppra) loperamide 2 mg capsule (Imodium 2 mg PO DIRECTED PRN Loose Stool 12/15/24 02/21/25 Unknown A-D) multivitamin 1 tab PO QAM 12/15/24 02/21/25 01/16/25 08:30 perphenazine 2 mg tablet 2 mg PO AMHS 12/15/24 02/21/25 01/16/25 19:30 perphenazine 4 mg tablet 4 mg PO HS 12/15/24 02/21/25 01/16/25 19:30 phosphorated carbohydrate oral 30 ml PO DIRECTED PRN Nausea 12/15/24 02/21/25 Unknown solution (Emetrol oral solution) polyethylene glycol 3350 17 17 g PO QAM 12/15/24 02/21/25 01/16/25 08:30 gram/dose oral powder (Miralax) quetiapine 200 mg tablet (Seroquel) 200 mg PO HS 12/15/24 02/21/25 01/16/25 19:30 quetiapine 50 mg tablet (Seroquel) 50 mg PO QAM 12/15/24 02/21/25 01/16/25 08:30 sertraline 100 mg tablet (Zoloft) 100 mg PO QAM 12/15/24 02/21/25 01/16/25 08:30 cholecalciferol (vitamin D3) 125 125 mcg PO QAM #30 tabs 12/24/24 02/21/25 01/16/25 08:30 mcg (5,000 unit) tablet ferrous sulfate 325 mg (65 mg 325 mg PO BIDM #60 tabs 12/24/24 02/21/25 01/16/25 17:00 iron) tablet,delayed release calcium polycarbophil 625 mg 625 mg PO QAM 01/05/25 02/21/25 01/16/25 08:30 tablet (FiberCon) neomycin-bacitracn Zn-polymyxn 3.5 1 applic topical BID PRN abrasion 01/05/25 02/21/25 Unknown mg-400 unit-5,000 unit top oint until resolved pkt (Triple Antibiotic) acetaminophen 500 mg tablet 1,000 mg PO Q4H PRN elevated 02/09/25 02/21/25 Unknown temp/headache/mild pain fluoride (sodium) 1.1 % dental 1 applic dental BID 02/09/25 02/21/25 Unknown cream (SF 5000 Plus) calcium 500 mg (as 1 tab PO QAM 02/21/25 02/21/25 Unknown carbonate)-vitamin D3 5 mcg (200 unit) tablet dextromethorphan-guaifenesin 10 5 ml PO Q4 PRN Cough 02/21/25 02/21/25 Unknown mg-200 mg/5 mL oral liquid nystatin 100,000 unit/gram topical 1 applic topical HS 02/21/25 02/21/25 Unknown cream Active Medications Generic Name Dose Route Start Last Admin Trade Name Pilar PRN Reason Stop Dose Admin Calcium Carbonate 1,250 mg 02/26/25 21:00 02/27/25 09:20 Calcium Carbonate 1,250 Mg/5 Ml Udc PO 03/28/25 20:59 Not Given BID SWAPNA Clobazam 5 mg 02/22/25 21:00 02/26/25 21:11 Clobazam 5 Mg Tab PO 03/24/25 20:59 5 mg HS SWAPNA Administration Deutetrabenazine 1 each 02/22/25 14:00 02/27/25 10:38 Austedo Xr 36 Mg Tab PO 03/24/25 13:59 1 each DAILY SWAPNA Administration Enoxaparin Sodium 40 mg 02/22/25 09:00 02/27/25 09:23 Enoxaparin Inj 40 Mg/0.4 Ml Syr SQ 03/24/25 08:59 40 mg Q24H SWAPNA Administration Glycopyrrolate 1 mg 02/22/25 09:00 02/27/25 13:13 Glycopyrrolate 1 Mg Tab PO 03/24/25 08:59 1 mg TID SWAPNA Administration Piperacillin Sod/Tazobactam Sod 4.5 gm in 100 mls @ 25 mls/hr 02/27/25 02:00 02/27/25 13:29 Zosyn IV 03/06/25 01:59 Infused Q8H SWAPNA Infusion Protocol Lamotrigine 200 mg 02/22/25 09:00 02/27/25 10:36 Lamotrigine 100 Mg Tab PO 03/24/25 08:59 200 mg AMHS SWAPNA Administration Protocol Lamotrigine 50 mg 02/22/25 09:00 02/27/25 10:37 Lamotrigine 25 Mg Tab PO 03/24/25 08:59 50 mg AMHS SWAPNA Administration Protocol Levetiracetam 1,500 mg 02/24/25 21:00 02/26/25 20:57 Levetiracetam 500 Mg Tab PO 03/26/25 20:59 1,500 mg BID SWAPNA Administration Levetiracetam 1,500 mg 02/27/25 09:00 02/27/25 10:38 Levetiracetam 500 Mg/5 Ml Vial IV 03/29/25 08:59 1,500 mg Q12H SWAPNA Administration Perphenazine 2 mg 02/22/25 09:00 02/27/25 10:36 Perphenazine 2 Mg Tab PO 03/24/25 08:59 2 mg AMHS SWAPNA Administration Perphenazine 4 mg 02/22/25 21:00 02/26/25 20:57 Perphenazine 4 Mg Tab PO 03/24/25 20:59 4 mg HS SWAPNA Administration Quetiapine Fumarate 200 mg 02/22/25 21:00 02/26/25 20:56 Quetiapine Fumarate 200 Mg Tab PO 03/24/25 20:59 200 mg HS SWAPNA Administration Quetiapine Fumarate 50 mg 02/22/25 09:00 02/27/25 10:37 Quetiapine Fumarate 25 Mg Tablet PO 03/24/25 08:59 50 mg QAM SWAPNA Administration Sertraline HCl 100 mg 02/22/25 09:00 02/27/25 10:36 Sertraline Hcl 100 Mg Tablet PO 03/24/25 08:59 100 mg QAM SWAPNA Administration
[2025-02-28 06:54] LABS: Hematocrit (blood only) 30.4 % (37.0-47.0); Hemoglobin 10.0 g/dl (12.0-16.0); Mean Corpuscular Hemoglobin 29.7 pg (25.0-34.0); Mean Corpuscular Volume 90.2 fL (80.0-100.0); Platelet Count 244 K/uL (130-400); RDW Standard Deviation 45.2 fL (36.4-46.3); Red Blood Count 3.37 M/uL (4.20-5.40); White Blood Count 14.32 K/ul (4.8-10.8)
[2025-02-28 07:16] LABS: Anion Gap 5.0 (3-11); Blood Urea Nitrogen 12.0 mg/dl (6-23); Calcium 8.9 mg/dl (8.6-10.3); Carbon Dioxide 32.0 mmol/L (21-32); Chloride 101.0 mmol/L (98-107); Creatinine Clr Calc Pharmacy 80.5 ml/min; Glucose 103.0 mg/dl (70-99(Fasting)); Magnesium 2.1 mg/dl (1.7-2.4); Potassium 4.2 mmol/L (3.5-5.1); Sodium 138.0 mmol/L (136-145)
--- NOTE | 2025-02-28 07:43 | Urology Progress Note ---
Date of Service February 28, 2025 Assessment & Plan (1) Nephrolithiasis: (2) Ureteral stent present: Plan: 59-year-old female admitted with small bowel obstruction. She previously underwent cystoscopy and left ureteral stent placement (12/16/24) due to an obstructing stone and concern for obstructive pyelonephritis. She was scheduled for stone treatment earlier this week but was postponed due to her hospitalization/acute illness. She is currently scheduled for cystoscopy, left ureteroscopy, laser lithotripsy/stone treatment, stent exchange today with Dr. Napoles. NPO at this time. Afebrile. VSS Al[place] catheter in place wbc today up to 14.32, Cr 0.65 Urine culture from 02/21: pseudomonas, currently on zosyn (3) Vomiting: (4) Small bowel obstruction: (5) Bladder incontinence: (6) Nonverbal: (7) Hydronephrosis concurrent with and due to calculi of kidney and ureter: Plan Discussed options for conservative measure and maximum expulsion medical therapy and symptom controlled. Discussed ESWL. Discussed Ureteroscopy with extraction and/or laser lithotripsy. Risks and benefits were discussed. Stone free rates were also discussed as well as possibility of multiple procedures. Ureteral st ents were discussed as well as post-operative issues and pain management. All questions were answered. Risks and benefits discussed at length for procedure. These include bleeding, infection, injury to surrounding tissues or organs, and risks associated with anesthesia. Patient states understanding and agrees to proceed. Will sign consent and proceed. Patient's MPOA had been already updated and contacted and the consents will be finalized. Will plan to have patient continue with inpatient treatment and monitoring after procedure to ensure complete clearance of infection. Plan for cystoscopy with possible left ureteroscopy and stone treatment Admission and Anticipated Discharge Date Admission Date: February 22, 2025 Subjective 59 year old female with a history of intellectual disability, autism, epilepsy, nonverbal and multiple medical comorbidities. She is currently admitted to the medicine service for small bowel obstruction. She previously underwent cystoscopy and left ureteral stent placement (12/16/24) due to an obstructing stone and concern for obstructive pyelonephritis. She was scheduled for stone treatment with Dr. Napoles on 02/22 but due to hospitalization, her procedure was postponed. Currently NPO for surgical intervention today. Review of Systems Review of Systems: All systems reviewed & are unremarkable except as noted in HPI & below Physical Exam Physical Exam: Patient appears to be resting comfortably. She is awake Constitutional: no acute distress Respiratory: normal respiratory effort; no respiratory distress and no labored breathing Gastrointestinal (Abdomen): Percussion/Palpation: abdomen soft; abdomen nontender, no guarding and abdomen not rigid Skin: no rashes, warm and dry Psychiatric: Orientation: alert; + not oriented x 3 Genitourinary: Catheter draining clear yellow urine Results & Data Vital Signs (Past 12 Hours) Vital Signs Temp Pulse Pulse Resp BP Pulse Ox O2 Del Method 02/28/25 07:28 81 02/28/25 03:35 36.8 C 84 20 110/72 96 Room Air 02/27/25 23:53 36.8 C 84 20 110/58 L 92 Room Air 02/27/25 21:59 91 H 02/27/25 19:51 37.0 C 88 20 112/66 92 Room Air PG Care Time/CCT Total # of Minutes Spent Total Time Spent with Patient: Total time spent is greater than 50% in coordination of care (as documented) at patient's floor/unit and/or counseling patient: Coding Level of Care Code 09985 SUB INP/OBS CARE 09/11MIN Diagnoses Nephrolithiasis N20.0 Ureteral stent present Z96.0 Vomiting R11.10 Nausea presence: unspecified Vomiting type: unspecified Small bowel obstruction K56.609 Bladder incontinence R32 Nonverbal R47.01 Hydronephrosis concurrent with and due to calculi of kidney and ureter N13.2 (3) Vomiting Nausea presence: unspecified Vomiting type: unspecified Qualified Code(s): R11.10 - Vomiting, unspecified
--- NOTE | 2025-02-28 11:09 | Electrocardiogram Report ---
Test Reason : Blood Pressure : */* mmHG Vent. Rate : 90 BPM Atrial Rate : 90 BPM P-R Int : 166 ms QRS Dur : 80 ms QT Int : 364 ms P-R-T Axes : 55 -23 39 degrees QTcB Int : 445 ms Normal sinus rhythm Inferior infarct , age undetermined Abnormal ECG When compared with ECG of 29-Jan-2025 14:04, Inferior infarct is now Present Confirmed by Kaleb Samuels ([id number]) on 02/28/2025 11:08:35 AM Referred By: REFERRED SELF Confirmed By: Kaleb Samuels
--- NOTE | 2025-02-28 14:07 | Hospitalist Progress Note ---
Date of Service February 28, 2025 Assessment & Plan (1) Small bowel obstruction: Plan: Ms. Delatorre is a 59-year-old female from [facility] with past medical history significant for severe intellectual disability, autism, epilepsy, recurrent MDD, OCD, mood disorder, history of SIADH, CKD stage III, GERD, sensorineural hearing loss of both ears, lesion of right lower liver, fecal and urinary incontinence, left nephrolithiasis, excessive salivation, osteoart hritis admitted for nausea and vomiting secondary to small bowel obstruction. Patient was also noted to have acute cystitis. Patient is awaiting stent exchange today Evaluated by speech given concerns for aspiration. It seems the xray was more suspicious of edema v actual aspiration. Speech does not suspect that the coughing event was necessarily related to an aspiration event, however, patient is unlikely to be able to complete a video swallow test. Patient was recommended to be on a mechanical soft diet for now (minced/moist); however, there is reports that patient prefers easy chew for food preference at [facility]--this was deemed an acceptable upgrade if requested or patient refusing minced and moist as recommended. #Acute complicated cystitis Recently had left nephroureteral stent placement for kidney stones and had Pseudomonas UTI Transitioned to zosyn for possible aspiration. Cultures are growing Pseudomonas again with broad sensitivity Blood cultures are negative ID consulted, reviewed recommendations: -On discharge, transition to ciprofloxacin 500 mg PO q12h through 03/07 to complete a total 14 day course of antibiotics, given L ureteral stent in place. EKG ordered #hypomagnesemia #hypophosphatemia #hypokalemia continue replacement prn trends labs #Hypoxia Possible aspiration Continue on antibiotics as above reposition as able #Chronic heart failure with preserved ejection fraction IV fluids discontinued monitor for volume overload #Intellectual disability/, MDD,/OCD/, tardive dyskinesia Nonverbal Continue home medications #Epilepsy Continue home p.o. medications when taking p.o. #Small bowel obstruction resolved Nausea and vomiting improved. NG tube is out and she is on clear liquids. Advance diet as tolerated per surgery CT scan shows small bowel obstruction Surgery consulted, reviewed recommendations: advance diet as tolerated, signed off 02/25 Easy chew diet per prior speech recommendations DVT prophylaxis:Lovenox Disposition Continue med/telemetry Full code. I spent a total of 40 minutes coordinating, documenting and providing care for this patient excluding time spent in performance of separately billable services Admission and Anticipated Discharge Date Admission Date: February 22, 2025 Subjective Chart, data and vital signs reviewed in detail. Patient seen outside. Patient has a severe intellectual disability and is nonverbal. She appears comfortable at present. She is due for urologic procedure today including stent removal Review of Systems Review of Systems: Unobtainable Physical Exam Physical Exam: General- adult female seen at bedside. Head- atraumatic Eyes- PERRL, EOMI, anicteric ENT- oropharynx clear Neck- supple, no JVD, no adenopathy, Lungs- clear to auscultation and percussion Heart- regular rhythm; no murmur, no gallop, no rub appreciated Abdomen- normal bowel sounds, soft, nontender, no masses or hepatosplenomegaly Extremities- no pretibial edema, Neuro- alert, she is nonverbal and can give no history, she cannot follow commands, she moves all extremities Skin- warm & dry Results & Data Results & Data Vital Signs (Past 12 Hours) Vital Signs Temp Pulse Pulse Resp BP BP Pulse Ox 02/28/25 11:52 37.3 C 94 H 18 126/56 L 94 02/28/25 11:46 37.0 C 88 16 119/72 93 02/28/25 09:37 94 02/28/25 08:19 36.6 C 94 H 16 103/63 91 02/28/25 07:40 02/28/25 07:28 81 02/28/25 03:35 36.8 C 84 20 110/72 96 O2 Del Method 02/28/25 11:52 Room Air 02/28/25 11:46 Room Air 02/28/25 09:37 Room Air 02/28/25 08:19 Room Air 02/28/25 07:40 Room Air 02/28/25 07:28 02/28/25 03:35 Room Air Diagnostic Findings Laboratory Results WBC 14.32 K/ul (4.8-10.8) H 02/28/25 06:39 RBC 3.37 M/uL (4.20-5.40) L 02/28/25 06:39 Hgb 10.0 g/dl (12.0-16.0) L 02/28/25 06:39 POC Hgb 13.9 g/dl (12.0-16.0) 02/21/25 20:03 Hct 30.4 % (37.0-47.0) L 02/28/25 06:39 POC Hct 41 % (37-47) 02/21/25 20:03 MCV 90.2 fL (80.0-100.0) 02/28/25 06:39 MCH 29.7 pg (25.0-34.0) 02/28/25 06:39 MCHC 32.9 g/dL (32.0-36.0) 02/28/25 06:39 RDW Std Deviation 45.2 fL (36.4-46.3) 02/28/25 06:39 RDW Coeff of Nic 13.6 % (11.5-14.5) 02/28/25 06:39 Plt Count 244 K/uL (130-400) 02/28/25 06:39 MPV 10.8 fL (9.4-12.4) 02/28/25 06:39 Immature Gran % (Auto) 0.5 % 02/22/25 04:20 Neut % (Auto) 91.4 % 02/22/25 04:20 Lymph % (Auto) 4.5 % 02/22/25 04:20 [place] % (Auto) 3.4 % 02/22/25 04:20 Eos % (Auto) 0.0 % 02/22/25 04:20 Baso % (Auto) 0.2 % 02/22/25 04:20 Neut # (Auto) 17.22 K/uL (1.40-6.50) H 02/22/25 04:20 Lymph # (Auto) 0.84 K/uL (1.20-3.40) L 02/22/25 04:20 [place] # (Auto) 0.64 K/uL (0.11-0.59) H 02/22/25 04:20 Eos # (Auto) 0.00 K/uL (0.00-0.50) 02/22/25 04:20 Baso # (Auto) 0.03 K/uL (0.00-0.20) 02/22/25 04:20 Immature Gran # (Auto) 0.09 K/uL (0.01-0.20) 02/22/25 04:20 Polychromasia 1+ 02/22/25 04:20 Tear Drop Cells 1+ 02/22/25 04:20 POC Sodium 139 mmol/L (135-144) 02/21/25 20:03 Sodium 138 mmol/L (136-145) 02/28/25 06:39 POC Potassium 3.3 mmol/L (3.3-5.0) 02/21/25 20:03 Potassium 4.2 mmol/L (3.5-5.1) 02/28/25 06:39 POC Chloride 99 mmol/L (101-112) L 02/21/25 20:03 Chloride 101 mmol/L (98-107) 02/28/25 06:39 Carbon Dioxide 32 mmol/L (21-32) 02/28/25 06:39 POC Total CO2 27 mmol/L (24-31) 02/21/25 20:03 Anion Gap 5 (3-11) 02/28/25 06:39 POC Anion Gap 18.0 mmol/L (16-25) 02/21/25 20:03 POC BUN 28 mg/dl (7-18) H 02/21/25 20:03 BUN 12 mg/dl (6-23) 02/28/25 06:39 Creatinine 0.65 mg/dl (0.6-1.2) 02/28/25 06:39 POC Creatinine 0.7 mg/dl (0.6-1.3) 02/21/25 20:03 Est Cr Clr Drug Dosing 80.5 ml/min 02/28/25 06:39 eGFR 101.36 02/28/25 06:39 BUN/Creatinine Ratio 18.5 (10-20) 02/28/25 06:39 Glucose 103 mg/dl (70-99(Fasting)) H 02/28/25 06:39 POC Glucose 107 mg/dl (70-99) H 02/26/25 20:11 POC Glucose (other) 142 mg/dl (70-99) H 02/21/25 20:03 Lactate 0.9 mmol/L (0.4-2.0) 02/22/25 08:06 Calcium 8.9 mg/dl (8.6-10.3) 02/28/25 06:39 POC Ioniz Calcium Casie 1.10 mmol/l (1.12-1.32) L 02/21/25 20:03 Phosphorus 4.6 mg/dl (2.5-4.9) 02/28/25 06:39 Magnesium 2.1 mg/dl (1.7-2.4) 02/28/25 06:39 Total Bilirubin 0.2 mg/dl (0.2-1.0) 02/24/25 06:01 AST 10 U/L (13-39) L 02/24/25 06:01 ALT 6 U/L (7-52) L 02/24/25 06:01 Alkaline Phosphatase 83 U/L (34-104) 02/24/25 06:01 Total Protein 5.1 gm/dl (6.0-8.3) L 02/24/25 06:01 Albumin 3.1 gm/dl (3.4-5.0) L 02/24/25 06:01 Globulin 2.0 gm/dl (2.5-4.0) L 02/24/25 06:01 Albumin/Globulin Ratio 1.6 (0.9-2) 02/24/25 06:01 Lipase 30 U/L (11-82) 02/21/25 19:50 Procalcitonin 0.10 ng/ml (0-0.5) 02/22/25 08:06 Urine Color Yellow 02/21/25 21:10 Urine Appearance Turbid (Clear) A 02/21/25 21:10 Urine pH 7.0 (4.5-7.5) 02/21/25 21:10 Ur Specific [place] > 1.045 (1.000-1.030) H 02/21/25 21:10 Urine Protein 2+ (Negative) H 02/21/25 21:10 Urine Glucose (UA) Negative (Negative) 02/21/25 21:10 Urine Ketones Trace (Negative) H 02/21/25 21:10 Urine Blood 3+ (Negative) H 02/21/25 21:10 Urine Nitrite Positive (Negative) A 02/21/25 21:10 Urine Bilirubin Negative (Negative) 02/21/25 21:10 Urine Urobilinogen Negative (Negative) 02/21/25 21:10 Ur Leukocyte Esterase 3+ (Negative) H 02/21/25 21:10 Urine WBC (Auto) >50 /hpf (0-5) H 02/21/25 21:10 Urine RBC (Auto) >20 /hpf (0-2) H 02/21/25 21:10 U Hyaline Cast (Auto) >20 /lpf (0-2) H 02/21/25 21:10 U Epithel Cells (Auto) 6-10 /hpf (0-2) H 02/21/25 21:10 Urine Bacteria (Auto) 4+ (None Seen) H 02/21/25 21:10 Hyaline Casts Present /lpf (None Presnt) A 02/21/25 21:10 Urine Mucus Present (None Prsent) A 02/21/25 21:10 Urine Comment 02/21/25 21:10 Nasal Screen MRSA (PCR) Negative (Negative) 02/22/25 05:46 Impressions Abdomen/Pelvis CT 02/21/25 19:35 Exam(s): CT ABDOMEN + PELVIS With Contrast IV Amt: 94ml EXAM: CT Abdomen and Pelvis With Intravenous Contrast CLINICAL HISTORY: Reason for exam: n/v/d nonverbal. TECHNIQUE: Axial computed tomography images of the abdomen and pelvis with intravenous contrast. CTDI is 23.23 mGy and DLP is 1203.36 mGy-cm. Automated exposure control was utilized for the study. A dose lowering technique was utilized adhering to the principles of ALARA. CONTRAST: Patient received 94ml of IV contrast COMPARISON: CT abdomen/pelvis: 09/25/2008 FINDINGS: Reduced diagnostic image quality due to motion and by patient's body characters. Lung bases: Bilateral mild bronchial wall cuffing and perihilar mild interstitial thickening. Likely calcified aortic and mitral valves. Gastroesophageal reflux of fluid. No consolidation.. No pleural effusion.. An elevated right hemidiaphragm. ABDOMEN: Liver: Unremarkable. No mass. Gallbladder and bile ducts: Unremarkable. No calcified stones. No ductal dilation. Pancreas: Diffusely atrophic pancreas. No contour deforming mass.. No ductal dilation. Spleen: Unremarkable. No splenomegaly. Adrenals: Unremarkable. No mass. Kidneys and ureters: A 5 mm right renal calculus in the lower pole calyx. Mild/moderate fullness of the left renal collecting system with a double pigtail ureteral catheter in situ. No solid mass. No right hydronephrosis. Stomach and bowel: A fluid/gas filled significantly distended stomach and multiple up to 3.5 cm dilated fluid/gas filled small bowel loops are seen throughout the abdomen and pelvis with a transition zone posteriorly in the pelvis, consistent with small bowel obstruction. (series 2 image 73). Liquid stool is seen in a borderline dilated ascending colon and gas in the transverse colon. No acute findings seen in the region of the appendix. PELVIS: Bladder: Empty with a Alcantara's catheter in situ. Reproductive: Markedly atrophic uterus. ABDOMEN and PELVIS: Intraperitoneal space: No free air. No significant fluid collection. Bones/joints: Moderately severe lumbar levoscoliosis with multilevel degenerative spondylitic changes. Moderately severe right hip osteoarthropathy with multiple subchondral cystic changes. No acute fracture. No dislocation. Soft tissues: Unremarkable. Vasculature: Diffusely calcified aortic atherosclerosis.. No abdominal aortic aneurysm. Lymph nodes: No significant enlarged lymph nodes.. IMPRESSION: Small bowel obstruction with a transition zone seen in the pelvis posteriorly. Liquid stool seen in a borderline distended ascending colon. Additional findings as described above. . Electronically signed by: Torrey Russell MD, DABR 02/21/25 22:55 PM KUB X-Ray 02/23/25 08:24 KUB HISTORY: Acute generalized abdominal pain with small bowel obstruction SBO COMPARISON: CT 02/21/2025 FINDINGS: Distal tip of enteric tube projects over the expected location of the mid stomach. Cardiomegaly. Air-filled loops of large and small bowel. There is mild gaseous distention of the large bowel with transverse colon measuring up to 7 cm. Left renal stent appears to be in satisfactory positioning. Bilateral nephrolithiasis redemonstrated. No ureteral calculi are seen. No pneumoperitoneum or pneumatosis. Severe osteoarthritis of the right hip. No fracture. IMPRESSION: 1. Satisfactory positioning of the enteric tube. The bowel gas pattern appears nonobstructive on today's study. 2. Satisfactory positioning of the left ureteral stent. 3. Bilateral nephrolithiasis. ACT 112: Negative or not required by law. The above report was generated using voice recognition software. It may contain grammatical, syntax or spelling errors. Electronically signed by: Vince Cervantes M.D. 02/23/2025 10:34 AM Chest X-Ray 02/26/25 19:31 Chest radiograph, one view History: Cough Comparison: February 21, 2025 Findings: Single AP view of the chest performed. No focal consolidation or pleural effusion is visualized. No pneumothorax. Calcific granuloma inferior left lung. The cardiomediastinal silhouette is within normal limits. Indistinct pulmonary vascularity. Mild hazy perihilar opacity. No evidence for lymphadenopathy. No visualized bony or soft tissue abnormality. Impression: Indistinct pulmonary vascularity and mildly hazy perihilar opacity favoring pulmonary edema Electronically signed by Antwan Wadsworth 02-26-2025 8:05 PM
[2025-02-28] MEDS: DIATRIZOATE MEGLUMINE 30% 100ML VIAL INSTIL ONE (14:48)
--- NOTE | 2025-02-28 14:54 | Operative Report ---
PG Post Operative Report Pre & Post Diagnosis Operation Date: 02/28/25 13:00 Pre-Op Diagnosis: Nephrolithiasis Post-Op Diagnosis: Nephrolithiasis I identified the patient and participated in the time-out.: Yes Procedure Operation Date: 02/28/25 13:00 Actual Procedures Cystoscopy with left Ureteroscopy, Retrograde Pyelogram, Ureteral Dilation, Laser Destruction of Stone, Basket Extraction of Stones, and Exchange of Stent Catheter - Left(Left) - Dilip Napoles DO Surgeon Dilip Napoles, II, DO Jail[employer] Chief None Estimated Blood Loss 1 Findings Consistent with Post-Op Diagnosis Stone destroyed to dust and small fragments and larger fragments removed. Specimens Stone Fragments - left renal Drains 6 Fr x 24 cm Left 20 [place] Alcantara catheter Anesthesia Type General Complications none Disposition Disposition: Recovery Room Indications Patient with bothersome stones. Risks and benefits discussed at length. Description of Procedure Patient was consented and brought back to the operating room. Patient was placed under anesthesia in the supine position and moved to the dorsal lithotomy position. Patient was prepped and draped in the regular sterile fashion. A time out was completed identifying the correct patient and procedure. A 30degree Cystoscope was placed into the bladder and the entire bladder was examined. The UO's were identified. The stent was grasped partially removed. A wire was then placed. The UO was cannulized with a catheter over the wire and a retrograde pyelogram was completed. A wire was then replaced. A ureteral access sheath and second safety wire was placed. The flexible ureteroscope was taken into the ureter. An area of narrowing in the mid ureter was dilated. This appeared to be a stricture. The scope then advanced. The entire ureter and renal pelvis were examined. The stones were identified. A stone was discovered in the lower pole that appeared to be obstructing the lower pole calyx's. This was displaced. Additionally behind the stone there was numerous other stones within the calyx. A laser fiber was selected and the stones were pulverized to dust and small fragments. Larger fragments were grasped and removed and sent for analysis. The entire area was once again examined. No residual large fragments or areas of concern were noted. The scope was slowly removed with the wire left in place. Contrast was placed through the scope for a pyelogram to assist in stent placement. The entire ureter was examined as the scope was slowly removed. No obstructions or other areas of concern were noted. With the wire in place, a 6 Fr Double J stent was placed. It was confirmed with fluoroscopy. With the stent in place, the bladder was emptied. The scope was removed. A 20 [place] catheter was then placed to allow drainage of the bladder. The patient was cleaned, aroused from anesthesia, and transferred to the pacu in stable condition having tolerated the procedure well with no complications. I was present and participated in all aspects of the procedure. The patient will be monitored in the PACU until transferred. Patient is admitted to the hospitalist team. Will plan to monitor/observe overnight. Plan to maintain stent for approximately 2 to 3 weeks. Can remove in office. Could also consider removal at time of treatment of stones on contralateral kidney. I attest to the content of the Intraoperative Record and any orders documented therein. Any exceptions are noted below.
--- NOTE | 2025-02-28 15:33 | Anesthesiology Progress Note ---
Date of Service February 28, 2025 Anesthesia Post Procedure Vital Signs Vital Signs: Temp Pulse Pulse Pulse Resp BP BP 02/28/25 15:20 87 19 156/83 H 02/28/25 15:10 89 19 156/86 H 02/28/25 15:00 36.3 C L 93 H 19 158/89 H 02/28/25 11:52 37.3 C 94 H 18 126/56 L 02/28/25 11:46 37.0 C 88 16 119/72 02/28/25 09:37 02/28/25 08:19 36.6 C 94 H 16 103/63 02/28/25 07:40 02/28/25 07:28 81 02/28/25 03:35 36.8 C 84 20 110/72 02/27/25 23:53 36.8 C 84 20 110/58 L 02/27/25 21:59 91 H 02/27/25 19:51 37.0 C 88 20 112/66 02/27/25 19:30 02/27/25 16:32 37.2 C 78 20 122/70 Pulse Ox O2 Del Method O2 Flow Rate 02/28/25 15:20 97 Nasal Cannula 4 02/28/25 15:10 97 Oxymask 5 02/28/25 15:00 98 Oxymask 5 02/28/25 11:52 94 Room Air 02/28/25 11:46 93 Room Air 02/28/25 09:37 94 Room Air 02/28/25 08:19 91 Room Air 02/28/25 07:40 Room Air 02/28/25 07:28 02/28/25 03:35 96 Room Air 02/27/25 23:53 92 Room Air 02/27/25 21:59 02/27/25 19:51 92 Room Air 02/27/25 19:30 Room Air 02/27/25 16:32 93 Room Air Transfer of Care Handoff Completed per policy Notes Mental Status: alert / awake / arousable Patient Amnestic to Procedure: Yes Nausea / Vomiting: adequately controlled Pain: adequately controlled Airway Patency, RR, SpO2: stable & adequate BP & HR: stable & adequate Hydration State: stable & adequate Anesthetic Complications: no major complications apparent and Pt Satisfied with anesthetic care
--- NOTE | 2025-02-28 16:14 | Fluoroscopy Report ---
FL retrograde includes kub CLINICAL HISTORY: CYSTO COMPARISON STUDY: None FLUOROSCOPY TIME: 51 seconds FLUOROSCOPY IMAGES: 4 EXPOSURE DOSE: 11 mGy FINDINGS: Fluoroscopy was provided for urologic procedure. IMPRESSION: Intraoperative fluoroscopy. ACT 112: Negative or not required by law. Electronically signed by: Filiberto Smith M.D. 02/28/2025 4:13 PM
[2025-02-28] MEDS ORDERED: LEVALBUTEROL 1.25 MG/3 ML NEB NEB PRN (23:11)
[2025-02-28] MEDS ORDERED: PROMETHAZINE 6.25 MG/50.25 ML BAG IV PRN (23:14)
--- NOTE | 2025-02-28 23:14 | Communication Note ---
Date of Service: February 28, 2025 Patient with bilious emesis later followed by hematemesis. No overt abdominal pain complaints due to nonverbal state as per RN. KUB x-ray Multiple air-distended small bowel loops are seen in the central abdomen, concerning for small bowel obstruction/ileus. Interval progressive as compared to the prior study. Recommend clinical correlation and follow-up. Moderate colonic stool volume reflecting constipation. Stable positioning of left ureteric stent. AP Recurrent SBO UGIB secondary to above N.p.o. Reinsert NGT IV PPI Hold Lovenox subcu Will request a.m. provider to update General Surgery in AM.
[2025-02-28] MEDS ORDERED: IPRATROPIUM BROMIDE NEB SOLN 0.02% 0.5MG/2.5ML VIAL INH PRN (23:22)
[2025-02-28] MEDS: IPRATROPIUM BROMIDE NEB SOLN 0.02% 0.5MG/2.5ML VIAL INH STA (23:27)
[2025-02-28] MEDS: PROMETHAZINE 6.25 MG/50.25 ML BAG IV STA (23:27)
[2025-03-01] MEDS: METOPROLOL TARTRATE 1 MG/ML VIAL IV STA (00:58)
[2025-03-01] MEDS: ONDANSETRON INJ 2 MG/ML 2 ML VIAL IV PRN (00:59)
[2025-03-01 01:11] LABS: Hematocrit (blood only) 30.2 % (37.0-47.0); Hemoglobin 10.0 g/dl (12.0-16.0); Immature Granulocytes # (auto) 0.12 K/uL (0.01-0.20); Immature Granulocytes % (auto) 0.6 %; Mean Corpuscular Hemoglobin 29.5 pg (25.0-34.0); Mean Corpuscular Volume 89.1 fL (80.0-100.0); Platelet Count 327 K/uL (130-400); RDW Standard Deviation 43.7 fL (36.4-46.3); Red Blood Count 3.39 M/uL (4.20-5.40); White Blood Count 20.23 K/ul (4.8-10.8)
[2025-03-01 01:28] LABS: Alanine Aminotransferase 15.0 U/L (7-52); Albumin Globulin Ratio 1.3 (0.9-2); Alkaline Phosphatase 110.0 U/L (34-104); Anion Gap 7.0 (3-11); Bilirubin,Total 0.2 mg/dl (0.2-1.0); Blood Urea Nitrogen 12.0 mg/dl (6-23); Calcium 8.7 mg/dl (8.6-10.3); Carbon Dioxide 34.0 mmol/L (21-32); Chloride 94.0 mmol/L (98-107); Creatinine Clr Calc Pharmacy 74.7 ml/min; Globulin 2.7 gm/dl (2.5-4.0); Glucose 113.0 mg/dl (70-99(Fasting)); Lipase 16.0 U/L (11-82); Magnesium 1.7 mg/dl (1.7-2.4); Potassium 4.0 mmol/L (3.5-5.1); Sodium 135.0 mmol/L (136-145); Total Protein 6.3 gm/dl (6.0-8.3)
[2025-03-01] MEDS: ALBUMIN 25% 12.5 GM/50 ML VIAL IV ONE (01:31)
--- NOTE | 2025-03-01 01:39 | XRay Report ---
EXAM: XR KUB/Abdomen 1 view CLINICAL HISTORY: emesis, hx sbo. TECHNIQUE: X-ray images of the abdomen were obtained in supine and upright positions. COMPARISON: 02/23/2025. FINDINGS: Left-sided ureteric catheter is seen with its proximal tip in the left renal area and distal tip in the pelvis. Gas Pattern: Multiple air-distended small bowel loops are noted within the central abdomen, concerning for possible small bowel obstruction/ileus. Moderate colonic stool volume reflecting constipation. Soft Tissues: The liver and spleen shadows are normal. Both renal areas are obscured by gas shadows. Bones: Moderate degenerative changes are noted at the right hip joint. IMPRESSION: Multiple air-distended small bowel loops are seen in the central abdomen, concerning for small bowel obstruction/ileus. Interval progressive as compared to the prior study. Recommend clinical correlation and follow-up. Moderate colonic stool volume reflecting constipation. Stable positioning of left ureteric stent. Electronically signed by Evangelist Delatorre 03-01-2025 01:38 AM
[2025-03-01] MEDS: MAGNESIUM SULFATE / D5W 1 GM/100 ML BAG IV SCH (02:31)
--- NOTE | 2025-03-01 08:08 | Urology Progress Note ---
Date of Service March 01, 2025 Assessment & Plan (1) Nephrolithiasis: Plan: POD 1 from Cystoscopy with left Ureteroscopy, Retrograde Pyelogram, Ureteral Dilation, Laser Destruction of Stone, Basket Extraction of Stones, and Exchange of Stent Catheter Catheter in place with clear yellow urine Will need to follow up in 2-3 weeks for stent removal with Dr Napoles Recurrent SBO/UGIB, general surgery consult placed Admission and Anticipated Discharge Date Admission Date: February 22, 2025 Subjective 59 year old patient POD 1 from Cystoscopy with left Ureteroscopy, Retrograde Pyelogram, Ureteral Dilation, Laser Destruction of Stone, Basket Extraction of Stones, and Exchange of Stent Catheter - Left(Left) with Dr Napoles. Had hematemesis yesterday, recurrent SBO/UGIB. NG tube placed Physical Exam Physical Exam: awake, no distress. NG tube in place Genitourinary: Alcantara catheter in place, clear yellow urine. no blood Results & Data Vital Signs (Past 12 Hours) Vital Signs Temp Pulse Pulse Resp BP BP BP 03/01/25 07:27 36.5 C 92 H 18 119/77 03/01/25 07:13 97 H 03/01/25 03:00 37.9 C H 100 H 19 135/81 03/01/25 01:35 91 H 140/70 03/01/25 00:58 113 H 133/76 02/28/25 22:35 37.0 C 110 H 18 128/79 02/28/25 22:05 97 H 02/28/25 20:45 Pulse Ox O2 Del Method 03/01/25 07:27 91 Room Air 03/01/25 07:13 03/01/25 03:00 93 Room Air 03/01/25 01:35 03/01/25 00:58 02/28/25 22:35 92 Room Air 02/28/25 22:05 02/28/25 20:45 Room Air PG Care Time/CCT Total # of Minutes Spent Total Time Spent with Patient: Total time spent is greater than 50% in coordination of care (as documented) at patient's floor/unit and/or counseling patient: Coding Level of Care Code 51599 SUB INP/OBS CARE 09/11MIN Diagnoses Nephrolithiasis N20.0
[2025-03-01] MEDS: PANTOprazole 40 MG/10 ML SYR IV SCH (08:16)
[2025-03-01 08:23] LABS: Hematocrit (blood only) 27.5 % (37.0-47.0); Hemoglobin 8.9 g/dl (12.0-16.0)
[2025-03-01 12:19] LABS: Hematocrit (blood only) 26.9 % (37.0-47.0); Hemoglobin 8.9 g/dl (12.0-16.0)
--- NOTE | 2025-03-01 14:42 | Hospitalist Progress Note ---
Date of Service March 01, 2025 Assessment & Plan (1) Small bowel obstruction: Plan: In summary, patient is a 59-year-old female from [facility] with past medical history significant for severe intellectual disability, autism, epilepsy, recurrent MDD, OCD, mood disorder, history of SIADH, CKD stage III, GERD, sensorineural hearing loss of both ears, lesion of right lower liver, fecal and urinary incontinence, left nephrolithiasis, excessive salivation, osteoarthritis admitted for nausea and vomiting secondary to small bowel obstruction. Patient was also noted to have acute cystitis. Patient is underwent stent exchange, cystoscopy and stone ablation yesterday #Acute complicated cystitis Recently had left nephroureteral stent placement for kidney stones and had Pseudomonas UTI Transitioned to zosyn for possible aspiration. Cultures are growing Pseudomonas again with broad sensitivity Blood cultures are negative ID consulted, reviewed recommendations: -On discharge, transition to ciprofloxacin 500 mg PO q12h through 03/07 to complete a total 14 day course of antibiotics, given L ureteral stent in place. EKG ordered #hypomagnesemia #hypophosphatemia #hypokalemia continue replacement prn trends labs #Hypoxia Possible aspiration Continue on antibiotics as above reposition as able Currently on room air #Chronic heart failure with preserved ejection fraction monitor for volume overload #Intellectual disability/, MDD,/OCD/, tardive dyskinesia Nonverbal Continue home medications #Epilepsy Continue home p.o. medications when taking p.o. #Small bowel obstruction resolved and now on reoccurrence postop No further nausea and vomiting. NG tube is out(she pulled it out twice). General surgery has been reconsulted Will repeat KUB Consult GI if there is any further hematemesis DVT prophylaxis:Lovenox Disposition Back to [facility] when medically stable Continue med/telemetry Full code. I spent a total of 55 minutes coordinating, documenting and providing care for this patient excluding time spent in performance of separately billable services Admission and Anticipated Discharge Date Admission Date: February 22, 2025 Subjective Chart, data and vital signs reviewed. POD 1 from Cystoscopy with left Ureteroscopy, Retrograde Pyelogram, Ureteral Dilation, Laser Destruction of Stone, Basket Extraction of Stones, and Exchange of Stent Catheter - Left(Left) with Dr Napoles. Had bilious vomiting and hematemesis last evening postop. X- ray shows recurrent SBO. NG tube placed. Patient has pulled out her NG tube x 2 today. There has been no further vomiting. Suspect the vomiting caused a possible Hina-Singh tear. There has been no further bleeding or hematemesis. Surgery has been reconsulted. Patient has been tolerating her meds with a small sip. She remains NPO otherwise Review of Systems Review of Systems: Review of systems are unobtainable Physical Exam Physical Exam: General- adult female seen at bedside. Chronic ill appearance. She is nonverbal. ENT- oropharynx clear Lungs- clear to auscultation and percussion Heart- regular rhythm; no murmur, Abdomen- bowel sounds are heard, soft, no apparent tenderness Extremities- no pretibial edema, no calf tenderness; peripheral pulses intact Neuro- alert, nonverbal, moves all extremities Skin- warm & dry Results & Data Results & Data Vital Signs (Past 12 Hours) Vital Signs Temp Pulse Pulse Resp BP BP Pulse Ox 03/01/25 11:16 37.4 C 92 H 20 126/76 90 03/01/25 08:15 03/01/25 07:27 36.5 C 92 H 18 119/77 91 03/01/25 07:13 97 H 03/01/25 03:00 37.9 C H 100 H 19 135/81 93 O2 Del Method 03/01/25 11:16 Room Air 03/01/25 08:15 Room Air 03/01/25 07:27 Room Air 03/01/25 07:13 03/01/25 03:00 Room Air Diagnostic Findings Laboratory Results WBC 20.23 K/ul (4.8-10.8) H 03/01/25 00:56 RBC 3.39 M/uL (4.20-5.40) L 03/01/25 00:56 Hgb 8.9 g/dl (12.0-16.0) L 03/01/25 12:00 POC Hgb 13.9 g/dl (12.0-16.0) 02/21/25 20:03 Hct 26.9 % (37.0-47.0) L 03/01/25 12:00 POC Hct 41 % (37-47) 02/21/25 20:03 MCV 89.1 fL (80.0-100.0) 03/01/25 00:56 MCH 29.5 pg (25.0-34.0) 03/01/25 00:56 MCHC 33.1 g/dL (32.0-36.0) 03/01/25 00:56 RDW Std Deviation 43.7 fL (36.4-46.3) 03/01/25 00:56 RDW Coeff of Nic 13.4 % (11.5-14.5) 03/01/25 00:56 Plt Count 327 K/uL (130-400) 03/01/25 00:56 MPV 10.7 fL (9.4-12.4) 03/01/25 00:56 Immature Gran % (Auto) 0.6 % 03/01/25 00:56 Neut % (Auto) 80.4 % 03/01/25 00:56 Lymph % (Auto) 10.1 % 03/01/25 00:56 [place] % (Auto) 8.7 % 03/01/25 00:56 Eos % (Auto) 0.0 % 03/01/25 00:56 Baso % (Auto) 0.2 % 03/01/25 00:56 Neut # (Auto) 16.26 K/uL (1.40-6.50) H 03/01/25 00:56 Lymph # (Auto) 2.04 K/uL (1.20-3.40) 03/01/25 00:56 [place] # (Auto) 1.76 K/uL (0.11-0.59) H 03/01/25 00:56 Eos # (Auto) 0.01 K/uL (0.00-0.50) 03/01/25 00:56 Baso # (Auto) 0.04 K/uL (0.00-0.20) 03/01/25 00:56 Immature Gran # (Auto) 0.12 K/uL (0.01-0.20) 03/01/25 00:56 Polychromasia 1+ 02/22/25 04:20 Tear Drop Cells 1+ 02/22/25 04:20 POC Sodium 139 mmol/L (135-144) 02/21/25 20:03 Sodium 135 mmol/L (136-145) L 03/01/25 00:56 POC Potassium 3.3 mmol/L (3.3-5.0) 02/21/25 20:03 Potassium 4.0 mmol/L (3.5-5.1) 03/01/25 00:56 POC Chloride 99 mmol/L (101-112) L 02/21/25 20:03 Chloride 94 mmol/L (98-107) L 03/01/25 00:56 Carbon Dioxide 34 mmol/L (21-32) H 03/01/25 00:56 POC Total CO2 27 mmol/L (24-31) 02/21/25 20:03 Anion Gap 7 (3-11) 03/01/25 00:56 POC Anion Gap 18.0 mmol/L (16-25) 02/21/25 20:03 POC BUN 28 mg/dl (7-18) H 02/21/25 20:03 BUN 12 mg/dl (6-23) 03/01/25 00:56 Creatinine 0.70 mg/dl (0.6-1.2) 03/01/25 00:56 POC Creatinine 0.7 mg/dl (0.6-1.3) 02/21/25 20:03 Est Cr Clr Drug Dosing 74.7 ml/min 03/01/25 00:56 eGFR 99.57 03/01/25 00:56 BUN/Creatinine Ratio 17.1 (10-20) 03/01/25 00:56 Glucose 113 mg/dl (70-99(Fasting)) H 03/01/25 00:56 POC Glucose 107 mg/dl (70-99) H 02/26/25 20:11 POC Glucose (other) 142 mg/dl (70-99) H 02/21/25 20:03 Lactate 0.9 mmol/L (0.4-2.0) 02/22/25 08:06 Calcium 8.7 mg/dl (8.6-10.3) 03/01/25 00:56 POC Ioniz Calcium Casie 1.10 mmol/l (1.12-1.32) L 02/21/25 20:03 Phosphorus 4.6 mg/dl (2.5-4.9) 02/28/25 06:39 Magnesium 1.7 mg/dl (1.7-2.4) 03/01/25 00:56 Total Bilirubin 0.2 mg/dl (0.2-1.0) 03/01/25 00:56 AST 14 U/L (13-39) 03/01/25 00:56 ALT 15 U/L (7-52) 03/01/25 00:56 Alkaline Phosphatase 110 U/L (34-104) H 03/01/25 00:56 Total Protein 6.3 gm/dl (6.0-8.3) 03/01/25 00:56 Albumin 3.6 gm/dl (3.4-5.0) 03/01/25 00:56 Globulin 2.7 gm/dl (2.5-4.0) 03/01/25 00:56 Albumin/Globulin Ratio 1.3 (0.9-2) 03/01/25 00:56 Lipase 16 U/L (11-82) 03/01/25 00:56 Procalcitonin 0.10 ng/ml (0-0.5) 02/22/25 08:06 Urine Color Yellow 02/21/25 21:10 Urine Appearance Turbid (Clear) A 02/21/25 21:10 Urine pH 7.0 (4.5-7.5) 02/21/25 21:10 Ur Specific [place] > 1.045 (1.000-1.030) H 02/21/25 21:10 Urine Protein 2+ (Negative) H 02/21/25 21:10 Urine Glucose (UA) Negative (Negative) 02/21/25 21:10 Urine Ketones Trace (Negative) H 02/21/25 21:10 Urine Blood 3+ (Negative) H 02/21/25 21:10 Urine Nitrite Positive (Negative) A 02/21/25 21:10 Urine Bilirubin Negative (Negative) 02/21/25 21:10 Urine Urobilinogen Negative (Negative) 02/21/25 21:10 Ur Leukocyte Esterase 3+ (Negative) H 02/21/25 21:10 Urine WBC (Auto) >50 /hpf (0-5) H 02/21/25 21:10 Urine RBC (Auto) >20 /hpf (0-2) H 02/21/25 21:10 U Hyaline Cast (Auto) >20 /lpf (0-2) H 02/21/25 21:10 U Epithel Cells (Auto) 6-10 /hpf (0-2) H 02/21/25 21:10 Urine Bacteria (Auto) 4+ (None Seen) H 02/21/25 21:10 Hyaline Casts Present /lpf (None Presnt) A 02/21/25 21:10 Urine Mucus Present (None Prsent) A 02/21/25 21:10 Urine Comment 02/21/25 21:10 Nasal Screen MRSA (PCR) Negative (Negative) 02/22/25 05:46 Blood Type A Negative 03/01/25 00:56 Antibody Screen NEGATIVE 03/01/25 00:56 Impressions Abdomen/Pelvis CT 02/21/25 19:35 Exam(s): CT ABDOMEN + PELVIS With Contrast IV Amt: 94ml EXAM: CT Abdomen and Pelvis With Intravenous Contrast CLINICAL HISTORY: Reason for exam: n/v/d nonverbal. TECHNIQUE: Axial computed tomography images of the abdomen and pelvis with intravenous contrast. CTDI is 23.23 mGy and DLP is 1203.36 mGy-cm. Automated exposure control was utilized for the study. A dose lowering technique was utilized adhering to the principles of ALARA. CONTRAST: Patient received 94ml of IV contrast COMPARISON: CT abdomen/pelvis: 09/25/2008 FINDINGS: Reduced diagnostic image quality due to motion and by patient's body characters. Lung bases: Bilateral mild bronchial wall cuffing and perihilar mild interstitial thickening. Likely calcified aortic and mitral valves. Gastroesophageal reflux of fluid. No consolidation.. No pleural effusion.. An elevated right hemidiaphragm. ABDOMEN: Liver: Unremarkable. No mass. Gallbladder and bile ducts: Unremarkable. No calcified stones. No ductal dilation. Pancreas: Diffusely atrophic pancreas. No contour deforming mass.. No ductal dilation. Spleen: Unremarkable. No splenomegaly. Adrenals: Unremarkable. No mass. Kidneys and ureters: A 5 mm right renal calculus in the lower pole calyx. Mild/moderate fullness of the left renal collecting system with a double pigtail ureteral catheter in situ. No solid mass. No right hydronephrosis. Stomach and bowel: A fluid/gas filled significantly distended stomach and multiple up to 3.5 cm dilated fluid/gas filled small bowel loops are seen throughout the abdomen and pelvis with a transition zone posteriorly in the pelvis, consistent with small bowel obstruction. (series 2 image 73). Liquid stool is seen in a borderline dilated ascending colon and gas in the transverse colon. No acute findings seen in the region of the appendix. PELVIS: Bladder: Empty with a Alcantara's catheter in situ. Reproductive: Markedly atrophic uterus. ABDOMEN and PELVIS: Intraperitoneal space: No free air. No significant fluid collection. Bones/joints: Moderately severe lumbar levoscoliosis with multilevel degenerative spondylitic changes. Moderately severe right hip osteoarthropathy with multiple subchondral cystic changes. No acute fracture. No dislocation. Soft tissues: Unremarkable. Vasculature: Diffusely calcified aortic atherosclerosis.. No abdominal aortic aneurysm. Lymph nodes: No significant enlarged lymph nodes.. IMPRESSION: Small bowel obstruction with a transition zone seen in the pelvis posteriorly. Liquid stool seen in a borderline distended ascending colon. Additional findings as described above. . Electronically signed by: Torrey Russell MD, DABR 02/21/25 22:55 PM Chest X-Ray 02/26/25 19:31 Chest radiograph, one view History: Cough Comparison: February 21, 2025 Findings: Single AP view of the chest performed. No focal consolidation or pleural effusion is visualized. No pneumothorax. Calcific granuloma inferior left lung. The cardiomediastinal silhouette is within normal limits. Indistinct pulmonary vascularity. Mild hazy perihilar opacity. No evidence for lymphadenopathy. No visualized bony or soft tissue abnormality. Impression: Indistinct pulmonary vascularity and mildly hazy perihilar opacity favoring pulmonary edema Electronically signed by Antwan Wadsworth 02-26-2025 8:05 PM Retrograde Pyelogram 02/28/25 14:14 FL retrograde includes kub CLINICAL HISTORY: CYSTO COMPARISON STUDY: None FLUOROSCOPY TIME: 51 seconds FLUOROSCOPY IMAGES: 4 EXPOSURE DOSE: 11 mGy FINDINGS: Fluoroscopy was provided for urologic procedure. IMPRESSION: Intraoperative fluoroscopy. ACT 112: Negative or not required by law. Electronically signed by: Filiberto Smith M.D. 02/28/2025 4:13 PM KUB X-Ray 02/28/25 23:13 EXAM: XR KUB/Abdomen 1 view CLINICAL HISTORY: emesis, hx sbo. TECHNIQUE: X-ray images of the abdomen were obtained in supine and upright positions. COMPARISON: 02/23/2025. FINDINGS: Left-sided ureteric catheter is seen with its proximal tip in the left renal area and distal tip in the pelvis. Gas Pattern: Multiple air-distended small bowel loops are noted within the central abdomen, concerning for possible small bowel obstruction/ileus. Moderate colonic stool volume reflecting constipation. Soft Tissues: The liver and spleen shadows are normal. Both renal areas are obscured by gas shadows. Bones: Moderate degenerative changes are noted at the right hip joint. IMPRESSION: Multiple air-distended small bowel loops are seen in the central abdomen, concerning for small bowel obstruction/ileus. Interval progressive as compared to the prior study. Recommend clinical correlation and follow-up. Moderate colonic stool volume reflecting constipation. Stable positioning of left ureteric stent. Electronically signed by Evangelist Delatorre 03-01-2025 01:38 AM
--- NOTE | 2025-03-01 14:56 | Electrocardiogram Report ---
Test Reason : Blood Pressure : */* mmHG Vent. Rate : 91 BPM Atrial Rate : 91 BPM P-R Int : 170 ms QRS Dur : 88 ms QT Int : 366 ms P-R-T Axes : 55 -21 36 degrees QTcB Int : 450 ms Poor data quality, interpretation may be adversely affected Sinus rhythm with occasional Premature ventricular complexes Inferior infarct (cited on or before 27-Feb-2025) Abnormal ECG When compared with ECG of 27-Feb-2025 14:38, Premature ventricular complexes are now Present Confirmed by Kaleb Samuels ([id number]) on 03/01/2025 2:55:40 PM Referred By: REFERRED SELF Confirmed By: Kaleb Samuels
--- NOTE | 2025-03-02 00:36 | XRay Report ---
CLINICAL HISTORY: SBO -JMT COMPARISON: Prior CR abdomen DOS: 02-28-2025, 02-23-2025 TECHNIQUE: AP views of the abdomen and pelvis. FINDINGS: Kidneys, urinary bladder: Left renal double-J stent in place. No kink or breaks noted. No radio-dense calculus seen in bilateral lumbar regions, in the line of both ureters and in the vesical area. Lines and Tubes: None. Bowel Gas Pattern: Non-obstructive gastrointestinal gas pattern. Interval resolution of previously noted small bowel ileus and mild regression of colonic fecal loading noted. Peritoneum: No free air. No ascites. Soft tissue Shadows: Unremarkable. Bones: End plate osteophytes are seen in the imaged spine. Lung Bases: Visualized lung bases appear clear. IMPRESSION: 1. No renal, ureteric or vesical radio-dense calculus. Left renal double-J stent in place 2. Interval resolution of previously noted small bowel ileus and mild regression of colonic fecal loading noted. Electronically signed by Hong Mar 03-02-2025 12:36 AM
[2025-03-02 07:50] LABS: Hematocrit (blood only) 26.1 % (37.0-47.0); Hemoglobin 8.7 g/dl (12.0-16.0); Mean Corpuscular Hemoglobin 29.2 pg (25.0-34.0); Mean Corpuscular Volume 87.6 fL (80.0-100.0); Platelet Count 253 K/uL (130-400); RDW Standard Deviation 43.8 fL (36.4-46.3); Red Blood Count 2.98 M/uL (4.20-5.40); White Blood Count 15.59 K/ul (4.8-10.8)
[2025-03-02] MEDS ORDERED: VANCOMYCIN CONSULT ACTIVE PRN (07:51)
[2025-03-02 08:10] LABS: Anion Gap 5.0 (3-11); Blood Urea Nitrogen 14.0 mg/dl (6-23); Calcium 8.3 mg/dl (8.6-10.3); Carbon Dioxide 32.0 mmol/L (21-32); Chloride 97.0 mmol/L (98-107); Creatinine Clr Calc Pharmacy 63.0 ml/min; Glucose 105.0 mg/dl (70-99(Fasting)); Potassium 3.8 mmol/L (3.5-5.1); Sodium 134.0 mmol/L (136-145)
[2025-03-02 08:12] LABS: Magnesium 2.0 mg/dl (1.7-2.4)
--- NOTE | 2025-03-02 08:12 | Hospitalist Progress Note ---
Date of Service March 02, 2025 Assessment & Plan (1) Small bowel obstruction: Plan: In summary, patient is a 59-year-old female from [facility] with past medical history significant for severe intellectual disability, autism, epilepsy, recurrent MDD, OCD, mood disorder, history of SIADH, CKD stage III, GERD, sensorineural hearing loss of both ears, lesion of right lower liver, fecal and urinary incontinence, left nephrolithiasis, excessive salivation, osteoarthritis admitted for nausea and vomiting secondary to small bowel obstruction. Patient was also noted to have acute cystitis. Patient is underwent stent exchange, cystoscopy and stone ablation yesterday Per previous hospitalist w/ addendum: #Acute complicated cystitis Recently had left nephroureteral stent placement for kidney stones and had Pseudomonas UTI Transitioned to zosyn for possible aspiration. Cultures are growing Pseudomonas again with broad sensitivity Initial Blood cultures are negative ID consulted, reviewed recommendations: -On discharge, transition to ciprofloxacin 500 mg PO q12h through 03/07 to complete a total 14 day course of antibiotics, given L ureteral stent in place. EKG ordered 03/02/2025 Yesterday WBC up at 20K, pt on zosyn Today AM temp 28C, yesterday AM 37.9C WBC down to 15K KUB on 02/28 w/ recurring sbo vs. ileus KUB on 03/01 seems w/ resolving sbo/ ileus Ordered CXR, KUB, blood cultx, procalcitonin, repeat urine, MRSA swab. Adding vanco to zosyn. Transferring pt to PCU. #hypomagnesemia #hypophosphatemia #hypokalemia continue replacement prn trends labs #Hypoxia Possible aspiration Continue on antibiotics as above reposition as able Currently on room air #Chronic heart failure with preserved ejection fraction monitor for volume overload #Intellectual disability/, MDD,/OCD/, tardive dyskinesia Nonverbal Continue home medications #Epilepsy Continue home p.o. medications when taking p.o. #Small bowel obstruction resolved and now w/ re-occurrence postop No further nausea and vomiting. NG tube is out(she pulled it out twice). General surgery has been reconsulted KUB on 02/28 w/ recurrent SBO/ ileus repeat KUB on 03/01 seems w/ resolving sbo/ileus Per RN , leo BM for past 3 days Consult GI if there is any further hematemesis DVT prophylaxis:Lovenox Disposition Back to [facility] when medically stable Continue med/telemetry Full code. Admission and Anticipated Discharge Date Admission Date: February 22, 2025 Subjective Pt initially admitted for SBO, which seemingly resolved on 02/25 Pt then underwent on 02/28/25 Cystoscopy with left Ureteroscopy, Retrograde Pyelogram, Ureteral Dilation, Laser Destruction of Stone, Basket Extraction of Stones, and Exchange of Stent Catheter - Left(Left) with Dr Napoles. Had bilious vomiting and hematemesis evening postop. and X-ray showed recurrent SBO. NG tube placed but Patient has pulled out her NG tube x 2 today. There has been no further vomiting. Suspect the vomiting caused a possible Hina-Singh tear. There has been no further bleeding or hematemesis. Surgery has been reconsulted. Per previous hospitalist - Patient has been tolerating her meds with a small sip. She remains NPO otherwise Yesterday WBC up at 20K, pt on zosyn Today AM temp 28C, yesterday AM 37.9C WBC down to 15K Ordered CXR, KUB, blood cultx, procalcitonin, repeat urine, MRSA swab. Adding vanco to zosyn. Transferring pt to PCU. Discussed w/ RN, and w/ gen. surgery Review of Systems Review of Systems: Unobtainable due to mental health condition Physical Exam Physical Exam: General- adult female WD/WN in NAD, on RA Chronic ill appearance. She is nonverbal. Lungs- clear to auscultation without any wheezing, decreased breath sounds, mildly tachypneic Heart- regular , mildly tachycardic Abdomen- bowel sounds are heard, soft, no apparent tenderness Extremities- no pretibial edema, no calf tenderness; peripheral pulses intact Neuro- awake, nonverbal, opens eyes to voice Skin- warm & dry Results & Data Results & Data Vital Signs (Past 12 Hours) Vital Signs Temp Pulse Pulse Resp BP Pulse Ox O2 Del Method 03/02/25 07:41 38.0 C H 93 H 28 H 145/78 H 91 Room Air 03/02/25 07:04 100 H 03/02/25 03:21 37.3 C 106 H 20 143/82 H 90 Room Air 03/01/25 23:49 37.0 C 99 H 20 145/85 H 92 Room Air 03/01/25 21:59 97 H 03/01/25 21:40 37.0 C 99 H 20 145/85 H 92 Room Air Laboratory Results 03/02/25 03/01/25 03/01/25 Range/Units 07:34 12:00 06:32 WBC 15.59 H (4.8-10.8) K/ul RBC 2.98 L (4.20-5.40) M/uL Hgb 8.7 L 8.9 L 8.9 L (12.0-16.0) g/dl Hct 26.1 L 26.9 L 27.5 L (37.0-47.0) % MCV 87.6 (80.0-100.0) fL MCH 29.2 (25.0-34.0) pg MCHC 33.3 (32.0-36.0) g/dL RDW Std Deviation 43.8 (36.4-46.3) fL RDW Coeff of Nic 13.7 (11.5-14.5) % Plt Count 253 (130-400) K/uL MPV 10.6 (9.4-12.4) fL Sodium Pending Potassium Pending Chloride Pending Carbon Dioxide Pending Anion Gap Pending BUN Pending Creatinine Pending Est Cr Clr Drug Dosing Pending eGFR Pending BUN/Creatinine Ratio Pending Glucose Pending Calcium Pending Phosphorus Pending Magnesium Pending Medications Administered Current Inpatient Medications Calcium Carbonate (Calcium Carbonate 1,250 Mg/5 Ml Udc) 1,250 mg PO BID SWAPNA Stop: 03/28/25 20:59 Last Admin: 03/01/25 21:23 Dose: 1,250 mg Clobazam (Clobazam 5 Mg Tab) 5 mg PO HS SWAPNA Stop: 03/24/25 20:59 Last Admin: 03/01/25 21:23 Dose: 5 mg Deutetrabenazine (Austedo Xr 36 Mg Tab) 1 each PO DAILY SWAPNA Stop: 03/24/25 13:59 Last Admin: 03/01/25 08:49 Dose: 1 each Enoxaparin Sodium (Enoxaparin Inj 40 Mg/0.4 Ml Syr) 40 mg SQ Q24H SWAPNA Stop: 03/24/25 08:59 Last Admin: 02/28/25 17:00 Dose: 40 mg Glycopyrrolate (Glycopyrrolate 1 Mg Tab) 1 mg PO TID [facility] Stop: 03/24/25 08:59 Last Admin: 03/01/25 21:23 Dose: 1 mg Piperacillin Sod/Tazobactam Sod (Zosyn) 4.5 gm in 100 mls @ 25 mls/hr IV Q8H [facility]; Protocol Stop: 03/06/25 01:59 Last Infusion: 03/02/25 07:07 Dose: Infused Promethazine HCl (Phenergan) 6.25 mg in 50.25 mls @ 201 mls/hr IV Q6H PRN PRN Reason: Nausea And Vomiting Stop: 03/30/25 23:13 Pantoprazole Sodium (Protonix) 40 mg in 10 mls @ 5 mls/min IV BID [facility] Stop: 03/31/25 08:59 Last Admin: 03/01/25 21:26 Dose: 5 mls/min Ipratropium [place] (Ipratropium [place] Neb Soln 0.02% 0.5mg/2.5ml Vial) 0.5 mg INH Q4H PRN PRN Reason: SOB WHEEZE Stop: 03/30/25 23:21 Lamotrigine (Lamotrigine 100 Mg Tab) 200 mg PO [facility]; Protocol Stop: 03/24/25 08:59 Last Admin: 03/01/25 21:24 Dose: 200 mg Lamotrigine (Lamotrigine 25 Mg Tab) 50 mg PO [facility]; Protocol Stop: 03/24/25 08:59 Last Admin: 03/01/25 21:24 Dose: 50 mg Levalbuterol HCl (Levalbuterol 1.25 Mg/3 Ml Neb) 1.25 mg NEB Q4H PRN PRN Reason: sob wheeze Stop: 03/30/25 23:10 Levetiracetam (Levetiracetam 500 Mg/5 Ml Vial) 1,500 mg IV Q12H [facility]; Protocol Stop: 03/31/25 08:59 Last Admin: 03/01/25 21:25 Dose: 1,500 mg Miscellaneous Information (Vancomycin Consult Active) 1,000 each N/A UD PRN PRN Reason: Consult Stop: 04/01/25 07:50 Nitroglycerin (Nitroglycerin Sl 0.4 Mg/Tab Tab) 0.4 mg SL Q5M PRN PRN Reason: Chest Pain Stop: 03/24/25 00:58 Ondansetron HCl (Ondansetron Inj 2 Mg/Ml 2 Ml Vial) 4 mg IV Q6H PRN PRN Reason: Nausea Stop: 03/24/25 00:58 Last Admin: 03/01/25 00:59 Dose: 4 mg Perphenazine (Perphenazine 2 Mg Tab) 2 mg PO [facility] SWAPNA Stop: 03/24/25 08:59 Last Admin: 03/01/25 21:26 Dose: 2 mg Perphenazine (Perphenazine 4 Mg Tab) 4 mg PO HS SWAPNA Stop: 03/24/25 20:59 Last Admin: 03/01/25 21:26 Dose: 4 mg Quetiapine Fumarate (Quetiapine Fumarate 200 Mg Tab) 200 mg PO HS SWAPNA Stop: 03/24/25 20:59 Last Admin: 03/01/25 21:27 Dose: 200 mg Quetiapine Fumarate (Quetiapine Fumarate 25 Mg Tablet) 50 mg PO QAM SWAPNA Stop: 03/24/25 08:59 Last Admin: 03/01/25 08:16 Dose: 50 mg Sertraline HCl (Sertraline Hcl 100 Mg Tablet) 100 mg PO QAM SWAPNA Stop: 03/24/25 08:59 Last Admin: 03/01/25 08:18 Dose: 100 mg
--- NOTE | 2025-03-02 08:28 | Surgery Consultation ---
<Statement entered by Cathie Headley, - 03/02/25 15:16> I have seen and examined this patient this am with the surgical [employer] OPER[employer]. No evidence for SBO on KUB, there is air in the colon. Patient tested (+) for rhinovirus and enterovirus. Low grade fever likely secondary to this. I agree with this plan. Date of Consultation March 02, 2025 Assessment & Plan (1) Vomiting: This is a 59yF with a PMH of intellectual disability, autism, epilepsy, who presented to the [facility] ED on 02/21/25 with nausea/vomiting. She was found to have findings concerning for SBO on admitting CT scan. She was initially seen by [facility] general surgery and was managed conservatively with NGT and impr ovement in her symptoms. She ultimately did begin to have + bowel function and diet slowly advanced as tolerated. She does follow with urology for stones and on 02/28 underwent a cystoscopy with L ureteral stent placement. Apparently the evening after her procedure she had nausea/vomiting and NGT was re-inserted in the early AM of 03/01 for concern for recurrent SBO. She did self pull her NGT out yesterday and since then a KUB does show resolution of ileus with improved with regression of colonic fecal loading. Today we have been reconsulted for her concern of SBO with findings of low grade temp this AM. Apparently last emesis was 02/28, NGT self removed yesterday and no subsequent n/v followed. Last documented BM 02/27. Today blood work shows WBC 15 (21), Hbg 8.7, Cr 0.83. Vitals show a temp this AM of 100.4F, HRs 90-100, with stable blood pressure. On exam patient is awake and lying in bed in no apparent distress. Abdomen is soft, maybe mildly distended, with no apparent pain to palpation. Yesterday's KUB showed improvement in ileus. Repeat KUB did just return this AM as well with no concern for sbo/ileus. No nausea/vomiting noted since 02/28 therefore believe it is okay to hold off on NGT re-insertion as well. CXR also pending as there could be some concern for aspiration. Apparently speech has seen her this admission and cleared her for a mechanical soft/ easy to chew diet. Repeat urine culture pending. Urology also on board. Will follow along as more workup results. Could also consider some bowel regimen from below for retained stool in form of suppository or enema if needed. History of Present Illness Attending Physician: Santos Mackenzie MD History of Present Illness This is a 59yF with a PMH of intellectual disability, autism, epilepsy, with other medical issues who presented to the [facility] ED on 02/21/25 with nausea/vomiting. She was found to have findings concerning for SBO on admitting CT scan. She was initially seen by [facility] general surgery and was managed conservatively with NGT and improvement in her symptoms. She ultimately did begin to have + bowel function and diet slowly advanced as tolerated. She does follow with urology for stones and on 02/28 underwent a cystoscopy with L ureteral stent placement. Apparently the evening after her procedure she had nausea/vomiting and NGT was re-inserted in the early AM of 03/01 for concern for recurrent SBO. She did self pull her NGT out yesterday and since then a KUB does show resolution of ileus with improved with regression of colonic fecal loading. Today we have been reconsulted for her concern of SBO with findings of low grade temp this AM. I am unable to obtain any meaningful history from the patient given her intellectual status and she does not verbally answer any questions for me. The majority of HPI was obtained from chart review and discussions with hospitalist, care teams, and nursing staff. Apparently last emesis was 02/28, NGT self removed yesterday and no subsequent n/v followed. Last documented BM 02/27. Allergies Allergy/AdvReac Type Severity Reaction Status Date / Time caffeine Allergy Unknown Unknown Verified 02/09/25 14:57 naproxen Allergy Unknown no rxn Verified 02/09/25 14:57 info listed NSAIDS (Non-Steroidal Allergy Unknown no rxn Verified 02/09/25 14:57 Anti-Inflamma listed Home Medications Medication Instructions Recorded Confirmed Type acetaminophen 500 mg tablet 500 mg PO QAM chronic pain 12/15/24 02/21/25 History aloe vera 1 applic topical Q1H PRN Sunburn 12/15/24 02/21/25 History aluminum-mag hydroxide-simethicone 10 ml PO DIRECTED PRN 12/15/24 02/21/25 History 400 mg-400 mg-40 mg/5 mL oral susp Indigestion (Maalox Maximum Strength) bisacodyl 5 mg tablet,delayed 10 mg PO Q3D PRN Constipation 12/15/24 02/21/25 History release (Dulcolax (bisacodyl)) chlorhexidine gluconate 0.12 % 1 applic buccal TID chronic 12/15/24 02/21/25 History mouthwash gingivitis clobazam 10 mg tablet (Onfi) 5 mg PO HS 12/15/24 02/21/25 History deutetrabenazine 36 mg 36 mg PO DAILY 12/15/24 02/21/25 History tablet,extended release 24 hr (Austedo XR) docusate sodium 100 mg capsule 100 mg PO AMHS 12/15/24 02/21/25 History famotidine 40 mg tablet (Pepcid) 40 mg PO DAILY 12/15/24 02/21/25 History glycopyrrolate 1 mg tablet 1 mg PO TID excessive drooling 12/15/24 02/21/25 History (Robinul) hydrocortisone 1 % topical cream 1 applic topical TID PRN Rash 12/15/24 02/21/25 History lamotrigine 100 mg tablet 50 mg PO AMHS 12/15/24 02/21/25 History lamotrigine 200 mg tablet 200 mg PO AMHS 12/15/24 02/21/25 History (Lamictal) levetiracetam 1,000 mg tablet 1,000 mg PO BID 12/15/24 02/21/25 History levetiracetam 500 mg tablet 500 mg PO BID 12/15/24 02/21/25 History (Keppra) loperamide 2 mg capsule (Imodium 2 mg PO DIRECTED PRN Loose Stool 12/15/24 02/21/25 History A-D) multivitamin 1 tab PO QAM 12/15/24 02/21/25 History perphenazine 2 mg tablet 2 mg PO AMHS 12/15/24 02/21/25 History perphenazine 4 mg tablet 4 mg PO HS 12/15/24 02/21/25 History phosphorated carbohydrate oral 30 ml PO DIRECTED PRN Nausea 12/15/24 02/21/25 History solution (Emetrol oral solution) polyethylene glycol 3350 17 17 g PO QAM 12/15/24 02/21/25 History gram/dose oral powder (Miralax) quetiapine 200 mg tablet (Seroquel) 200 mg PO HS 12/15/24 02/21/25 History quetiapine 50 mg tablet (Seroquel) 50 mg PO QAM 12/15/24 02/21/25 History sertraline 100 mg tablet (Zoloft) 100 mg PO QAM 12/15/24 02/21/25 History cholecalciferol (vitamin D3) 125 125 mcg PO QAM #30 tabs 12/24/24 02/21/25 Rx mcg (5,000 unit) tablet ferrous sulfate 325 mg (65 mg 325 mg PO BIDM #60 tabs 12/24/24 02/21/25 Rx iron) tablet,delayed release calcium polycarbophil 625 mg 625 mg PO QAM 01/05/25 02/21/25 History tablet (FiberCon) neomycin-bacitracn Zn-polymyxn 3.5 1 applic topical BID PRN abrasion 01/05/25 02/21/25 History mg-400 unit-5,000 unit top oint until resolved pkt (Triple Antibiotic) acetaminophen 500 mg tablet 1,000 mg PO Q4H PRN elevated 02/09/25 02/21/25 History temp/headache/mild pain fluoride (sodium) 1.1 % dental 1 applic dental BID 02/09/25 02/21/25 History cream (SF 5000 Plus) calcium 500 mg (as 1 tab PO QAM 02/21/25 02/21/25 History carbonate)-vitamin D3 5 mcg (200 unit) tablet dextromethorphan-guaifenesin 10 5 ml PO Q4 PRN Cough 02/21/25 02/21/25 History mg-200 mg/5 mL oral liquid nystatin 100,000 unit/gram topical 1 applic topical HS 02/21/25 02/21/25 History cream Patient History Medical History Candidal cystitis and urethritis Other abnormalities of gait and mobility Respiratory failure with hypoxia hx not known per facility, hospitalized [facility] december 2024. At current O2 sats while awake 95 % per facility. Bilateral pleural effusion Left ureteral calculus Complicated UTI (urinary tract infection) Osteoarthritis of hips, bilateral Autism Severe intellectual disability Nocturnal hypoxemia per facility while in hospital 12/2024, suspected sleep apnea, sats would drop at night. Denies occuring currently. Alcant[place] catheter in place History of sepsis hospitalized [facility] december 2024. Resolved per facility. History of pneumonia (12/2024) hospitalized at [facility]. december 2024. resolved per facility. Congenital hiatus hernia Umbilical hernia Hydronephrosis with renal and ureteral calculous obstruction Iron deficiency anemia Epilepsy Fatty (change of) liver, not elsewhere classified Psychomotor deficit Flat foot Other acquired deformity of toe toes Myopathy extraocular muscles right orbit Diplopia Other forms of scoliosis, lumbar region Pure hypercholesterolemia, unspecified Major depressive disorder, recurrent Hypermetropia, bilateral Diarrhea, unspecified Drug induced subacute dyskinesia Tremor, unspecified Restlessness and agitation GERD without esophagitis Deficiency of other vitamins Depression Constipation Unspecified cataract Lump of right breast Urinary incontinence Chronic pain Repeated falls facility denies fall in past 90 days. Astigmatism unspecified, right eye unspecified, left eye Chronic gum disease chronic gingivitis , plaque induced Dysphagia Anxiety disorder, unspecified OCD (obsessive compulsive disorder) Dementia unspecified Somnolence Polypharmacy Surgical History History of cystoscopy (~12/16/24) Cystoscopy with irrigation of bladder and catheter placement. Left ureteroscopy, Retrograde Pyelogram, Left Stent Placement, ureteral dilation, and aspiration of left kidney Grade 2 view, glidescope 3, ETT 7.0. Surgical history unknown Social History Smoking Status: Unknown if ever smoked Second Hand Exposure: No; Hx Alcohol Use: No Hx Substance Use: No Preferred Language: Pashto Communication Ability: Unable Communication Ability Comment: pt. nonverbal, sometimes cooperates with staff command and control officer Required: No Beliefs That Will Affect Care: None marital status: Single Current Living Situation: Other Current Living Situation Comment: detention current occupational status: disabled Feels Safe at Home: Yes Assistive Devices: Walker and Wheelchair Assistive Devices Comment: Unknown Review of Systems Review of Systems: Unobtainable due to cognitive status Physical Exam Physical Exam: awake, does not appear in any distress Respiratory: normal respiratory effort on room air Gastrointestinal (Abdomen): Percussion/Palpation: abdomen soft; abdomen nontender (does not appear in pain upon abdominal palpation ) Results & Data Vital Signs (Past 12 Hours) Vital Signs Temp Pulse Pulse Resp BP Pulse Ox O2 Del Method 03/02/25 07:41 100.4 F H 93 H 28 H 145/78 H 91 Room Air 03/02/25 07:04 100 H 03/02/25 03:21 99.1 F 106 H 20 143/82 H 90 Room Air 03/01/25 23:49 98.6 F 99 H 20 145/85 H 92 Room Air 03/01/25 21:59 97 H 03/01/25 21:40 98.6 F 99 H 20 145/85 H 92 Room Air PG Care Time/CCT Total # of Minutes Spent Total Time Spent with Patient: Total time spent is greater than 50% in coordination of care (as documented) at patient's floor/unit and/or counseling patient: Coding Level of Care Code 81603 INT INP/OBS CARE 1/40MIN Diagnoses Vomiting R11.10 Nausea presence: unspecified Vomiting type: unspecified (1) Vomiting Nausea presence: unspecified Vomiting type: unspecified Qualified Code(s): R 11.10 - Vomiting, unspecified
--- NOTE | 2025-03-02 08:35 | XRay Report ---
KUB HISTORY: follow up SBO COMPARISON STUDY: 03/01/2025 FINDINGS: Stable left ureteral stent. There is moderate retained stool. No bowel distention seen. No gross free air. IMPRESSION: Stable exam. No acute findings seen. ACT 112: Negative or not required by law. The above report was generated using voice recognition software. It may contain grammatical, syntax o r spelling errors. Electronically signed by: Filiberto Smith M.D. 03/02/2025 8:34 AM
[2025-03-02 08:39] LABS: Appearance Urine Turbid (Clear); Bacteria Urine Automated None Seen (None Seen); Epithelial Cell Urine Auto 0-2 /hpf (0-2); Glucose Urine UA Negative (Negative); RBC Urine Automated >20 /hpf (0-2); WBC Urine Automated >50 /hpf (0-5)
--- NOTE | 2025-03-02 08:39 | XRay Report ---
XR chest 1V portable CLINICAL HISTORY: fever, cough, poss. aspiration COMPARISON STUDY: 02/26/2025 and 02/21/2025 FINDINGS: Single view, rotated, portable erect chest was performed. When compared with the prior stud ies, the pulmonary vascular congestion has diminished. Chronic obscuration of the left lateral diaphr agm and costophrenic angle is redemonstrated without interval change. Streaky opacities in the medial aspect of the left lung base are also stable. There are no new findings that would suggest a recent onset of pneumonia or aspiration. Pronounced degenerative changes are present involving the left shou lder joint. IMPRESSION: Stable exam as described. No acute findings. ACT 112: Negative or not required by law. Electronically signed by: Ines Myrick M.D. 03/02/2025 8:38 AM
[2025-03-02 08:42] LABS: Cast Urine Automated 0-2 /lpf (0-2)
[2025-03-02] MEDS: ACETAMINOPHEN 1,000 MG/100 ML VIAL IV STA (08:47)
[2025-03-02] MEDS: VANCOMYCIN HCL 1,500 MG in SODIUM CHLORIDE 0.9% 500 ML IV ONE (09:29)
[2025-03-02] MEDS: GLYCERIN ADULT 12 SUPP/BOX SUPP PR ONE (09:30)
[2025-03-02 12:17] LABS: Chlamydia pneumoniae PCR Not Detected (NotDetected); Coronavirus 229E PCR Not Detected (NotDetected); Coronavirus CoV-2 (COVID19)PCR Not Detected (NotDetected); Coronavirus HKU1 PCR Not Detected (NotDetected); Coronavirus NL63 PCR Not Detected (NotDetected); Coronavirus OC43PCR Not Detected (NotDetected); Human Metapneumovirus PCR Not Detected (NotDetected); Parainfluenza Virus 1 PCR Not Detected (NotDetected); Parainfluenza Virus 2 PCR Not Detected (NotDetected); Parainfluenza Virus 3 PCR Not Detected (NotDetected); Parainfluenza Virus 4 PCR Not Detected (NotDetected); Respiratory Syncytial VirusPCR Not Detected (NotDetected); Rhinovirus/Enterovirus PCR DETECTED (NotDetected)
[2025-03-02] MEDS: SODIUM CHLORIDE 0.9% 500 ML IV ONE (13:11)
--- NOTE | 2025-03-02 13:59 | Pharmacy Report ---
Pharmacy PK ABX Note - Date of Service March 02, 2025 - Assessment and Plan Assessment * 59 year old F receiving Zosyn for treatment of pseudomonas UTI (started 02/26). Vancomycin was added today as patient still spiking fevers and continues with leukocytosis (though improved from admission). * Pertinent PMH: CKD III, fecal and urinary incontinence, left nephrolithiasis. She underwent stent exchange, cystoscopy, and stone ablation 03/01 * Pertinent microbiologic data includes: 02/21 straight cath urine culture grew P. aeruginosa; blood cultures x 2 from 02/22 are negative; Blood and urine cultures from 03/02 are pending; MRSA nasal swab is negative * Renal function is stable and at baseline and procal 0.3 today Day # 1 of vancomycin therapy (day #5 Zosyn) Plan Vancomycin * Loading dose: 1500 mg IV x 1 * Maintenance dose: 1000 mg IV every 12 hours * Regimen is predicted to achieve target AUC/KVNG of 400-600 mg/L.hr * Random level will be ordered in the next few days or as clinically necessary Zosyn 4.5gm iv q 8 hours. Pharmacy will continue to follow and will adjust dose/frequency as necessary. Thank you. Pharmacy has transitioned to AUC monitoring for vancomycin. AUC/KVNG is the preferred PK/PD target and is associated with decreased risk of nephrotoxicity compared to traditional trough targets.
[2025-03-02] MEDS: VANCOMYCIN HCL 1,000 MG/270 ML BAG IV SCH (21:07)
[2025-03-03 07:01] LABS: Hematocrit (blood only) 25.3 % (37.0-47.0); Hemoglobin 8.2 g/dl (12.0-16.0); Mean Corpuscular Hemoglobin 28.6 pg (25.0-34.0); Mean Corpuscular Volume 88.2 fL (80.0-100.0); Platelet Count 260 K/uL (130-400); RDW Standard Deviation 43.9 fL (36.4-46.3); Red Blood Count 2.87 M/uL (4.20-5.40); White Blood Count 13.69 K/ul (4.8-10.8)
[2025-03-03 07:26] LABS: Anion Gap 7.0 (3-11); Blood Urea Nitrogen 15.0 mg/dl (6-23); Calcium 8.4 mg/dl (8.6-10.3); Carbon Dioxide 29.0 mmol/L (21-32); Chloride 100.0 mmol/L (98-107); Creatinine Clr Calc Pharmacy 60.8 ml/min; Glucose 124.0 mg/dl (70-99(Fasting)); Magnesium 1.8 mg/dl (1.7-2.4); Potassium 3.5 mmol/L (3.5-5.1); Sodium 136.0 mmol/L (136-145)
--- NOTE | 2025-03-03 07:55 | Hospitalist Progress Note ---
Date of Service March 03, 2025 Assessment & Plan (1) Small bowel obstruction: Plan: Per previous hospitalist w/ addendum: Pt is a 59 yo female from [facility] with past medical history significant for severe intellectual disability, autism, epilepsy, recurrent MDD, OCD, mood disorder, history of SIADH, CKD stage III, GERD, sensorineural hearing loss of both ears, lesion of right lower liver, fecal and urinary incontinence, left nephrolithiasis, excessive salivation, osteoarthritis admitted for nausea and vomiting secondary to small bowel obstruction. Patient was also noted to have acute cystitis. Patient is underwent stent exchange, cystoscopy and stone ablation yesterday #Acute complicated cystitis Recently had left nephroureteral stent placement for kidney stones and had Pseudomonas UTI Transitioned to zosyn for possible aspiration. Cultures are growing Pseudomonas again with broad sensitivity Initial Blood cultures are negative ID consulted, reviewed recommendations: -On discharge, transition to ciprofloxacin 500 mg PO q12h through 03/07 to complete a total 14 day course of antibiotics, given L ureteral stent in place. EKG ordered In summary as of 03/03 Pt initially admitted for SBO, which seemingly resolved on 02/25 Pt then underwent on 02/28/25 Cystoscopy with left Ureteroscopy, Retrograde Pyelogram, Ureteral Dilation, Laser Destruction of Stone, Basket Extraction of Stones, and Exchange of Stent Catheter - Left(Left) with Dr Napoles. Had bilious vomiting and hematemesis evening postop. and X-ray showed recurrent SBO. NG tube placed but Patient has pulled out her NG tube x 2. There has been no further vomiting. Suspect the vomiting caused a possible Hina-Singh tear. There has been no further bleeding or hematemesis. Surgery has been reconsulted. Per previous hospitalist - Patient has been tolerating her meds with a small sip. She was made NPO. WBC normalized previously, then trended up again with WBC up at 20K, pt on Zosyn during this time Yesterday AM Temp 38C, currently afebrile WBC down to 13.9K, pt on vanco and zosyn Yesterday (on 03/02/25) Ordered CXR, KUB, blood cultx, procalcitonin, repeat urine, MRSA swab. Biofire. Added vanco to zosyn. Transferred pt to PCU. Biofire positive for Rhino/Enterovirus. Urine posit. for carrington so far, previously posit. for Pseudomonas. Blood cultx pending. SBO seems to be resolved per KUB, but pt is not having BM, also has suppository x2 03/02/2025 Yesterday WBC up at 20K, pt on zosyn Today AM temp 28C, yesterday AM 37.9C WBC down to 15K KUB on 02/28 w/ recurring sbo vs. ileus KUB on 03/01 seems w/ resolving sbo/ ileus Ordered CXR, KUB, blood cultx, procalcitonin, repeat urine, MRSA swab. Adding vanco to zosyn. Transferring pt to PCU. #hypomagnesemia #hypophosphatemia #hypokalemia continue replacement prn trends labs #Hypoxia Possible aspiration Continue on antibiotics as above reposition as able Currently on room air #Chronic heart failure with preserved ejection fraction monitor for volume overload #Intellectual disability/, MDD,/OCD/, tardive dyskinesia Nonverbal Continue home medications #Epilepsy Continue home p.o. medications when taking p.o. #Small bowel obstruction resolved and now w/ re-occurrence postop No further nausea and vomiting. NG tube is out (she pulled it out twice). General surgery has been reconsulted KUB on 02/28 w/ recurrent SBO/ ileus repeat KUB on 03/01 seems w/ resolving sbo/ileus Per RN , no BM for past 3 days Consult GI if there is any further hematemesis DVT prophylaxis:Lovenox Disposition Back to [facility] when medically stable Continue med/telemetry Full code. Admission and Anticipated Discharge Date Admission Date: February 22, 2025 Subjective Pt seen in follow up Pt initially admitted for SBO, which seemingly resolved on 02/25 Pt then underwent on 02/28/25 Cystoscopy with left Ureteroscopy, Retrograde Pyelogram, Ureteral Dilation, Laser Destruction of Stone, Basket Extraction of Stones, and Exchange of Stent Catheter - Left(Left) with Dr Napoles. Had bilious vomiting and hematemesis evening postop. and X-ray showed recurrent SBO. NG tube placed but Patient has pulled out her NG tube x 2. There has been no further vomiting. Suspect the vomiting caused a possible Hina-Singh tear. There has been no further bleeding or hematemesis. Surgery has been reconsulted. Per previous hospitalist - Patient has been tolerating her meds with a small sip. She was made NPO. WBC normalized previously, then trended up again with WBC up at 20K, pt on Zosyn during this time Yesterday AM Temp 38C, currently afebrile WBC down to 13.9K, pt on vanco and zosyn Yesterday (on 03/02/25) Ordered CXR, KUB, blood cultx, procalcitonin, repeat urine, MRSA swab. Biofire. Added vanco to zosyn. Transferred pt to PCU. Biofire positive for Rhino/Enterovirus. Urine posit. for carrington so far, previously posit. for Pseudomonas. Blood cultx pending. SBO seems to be resolved per KUB, but pt is not having BM, also has suppository x2 Discussed w/ cloth seconds sorter of Systems Review of Systems: Unobtainable due to mental health condition Physical Exam Physical Exam: General- adult female WD/WN in NAD, on RA Chronic ill appearance. She is nonverbal. Lungs- decreased breath sounds, + cough with deep inspiration Heart- regular Abdomen- soft, no apparent tenderness Extremities- no LE edema Neuro- nonverbal, opens eyes to voice Skin- warm & dry Results & Data Results & Data Vital Signs (Past 12 Hours) Vital Signs Temp Pulse Pulse Resp BP Pulse Ox O2 Del Method 03/03/25 07:47 36.9 C 95 H 22 136/79 92 Room Air 03/03/25 03:52 36.8 C 93 H 24 131/82 96 Room Air 03/02/25 23:19 105 H 03/02/25 23:00 36.6 C 104 H 20 152/73 H 94 Room Air 03/02/25 21:11 Room Air Laboratory Results 03/03/25 03/02/25 03/02/25 Range/Units 06:40 Unknown 08:10 WBC 13.69 H (4.8-10.8) K/ul RBC 2.87 L (4.20-5.40) M/uL Hgb 8.2 L (12.0-16.0) g/dl Hct 25.3 L (37.0-47.0) % MCV 88.2 (80.0-100.0) fL MCH 28.6 (25.0-34.0) pg MCHC 32.4 (32.0-36.0) g/dL RDW Std Deviation 43.9 (36.4-46.3) fL RDW Coeff of Nic 13.7 (11.5-14.5) % Plt Count 260 (130-400) K/uL MPV 10.8 (9.4-12.4) fL Sodium 136 (136-145) mmol/L Potassium 3.5 (3.5-5.1) mmol/L Chloride 100 (98-107) mmol/L Carbon Dioxide 29 (21-32) mmol/L Anion Gap 7 (3-11) BUN 15 (6-23) mg/dl Creatinine 0.86 (0.6-1.2) mg/dl Est Cr Clr Drug Dosing 60.8 ml/min eGFR 77.77 BUN/Creatinine Ratio 17.4 (10-20) Glucose 124 H (70-99(Fasting)) mg/dl Lactate (0.4-2.0) mmol/L Calcium 8.4 L (8.6-10.3) mg/dl Phosphorus 3.0 (2.5-4.9) mg/dl Magnesium 1.8 (1.7-2.4) mg/dl Procalcitonin (0-0.5) ng/ml Urine Color Yellow Urine Appearance Turbid A (Clear) Urine pH 7.0 (4.5-7.5) Ur Specific [place] 1.016 (1.000-1.030) Urine Protein 2+ H (Negative) Urine Glucose (UA) Negative (Negative) Urine Ketones Negative (Negative) Urine Blood 3+ H (Negative) Urine Nitrite Negative (Negative) Urine Bilirubin Negative (Negative) Urine Urobilinogen Negative (Negative) Ur Leukocyte Esterase 3+ H (Negative) Urine WBC (Auto) >50 H (0-5) /hpf Urine RBC (Auto) >20 H (0-2) /hpf U Hyaline Cast (Auto) 0-2 (0-2) /lpf U Epithel Cells (Auto) 0-2 (0-2) /hpf Urine Bacteria (Auto) None Seen (None Seen) Urine Comment Nasal Screen MRSA (PCR) (Negative) Adenovirus (PCR) Not Detected (NotDetected) B. pertussis DNA (PCR) Not Detected (NotDetected) B.parapertussis DNA PCR Not Detected (NotDetected) C. pneumoniae DNA (PCR) Not Detected (NotDetected) Coronavirus OC43 (PCR) Not Detected (NotDetected) Coronavirus HKU1 (PCR) Not Detected (NotDetected) Coronavirus 229E (PCR) Not Detected (NotDetected) SARS-CoV-2 (PCR) Not Detected (NotDetected) Coronavirus NL63 (PCR) Not Detected (NotDetected) Human Metapneumovir PCR Not Detected (NotDetected) Influenza Type A (PCR) Not Detected (NotDetected) Influenza Type B (PCR) Not Detected (NotDetected) M. pneumoniae (PCR) Not Detected (NotDetected) Parainfluenza 1 (PCR) Not Detected (NotDetected) Parainfluenza 2 (PCR) Not Detected (NotDetected) Parainfluenza 3 (PCR) Not Detected (NotDetected) Parainfluenza 4 (PCR) Not Detected (NotDetected) RSV (PCR) Not Detected (NotDetected) Entero/Rhino (PCR) DETECTED A (NotDetected) 03/02/25 03/02/25 03/02/25 Range/Units 08:05 08:01 07:34 WBC (4.8-10.8) K/ul RBC (4.20-5.40) M/uL Hgb (12.0-16.0) g/dl Hct (37.0-47.0) % MCV (80.0-100.0) fL MCH (25.0-34.0) pg MCHC (32.0-36.0) g/dL RDW Std Deviation (36.4-46.3) fL RDW Coeff of Nic (11.5-14.5) % Plt Count (130-400) K/uL MPV (9.4-12.4) fL Sodium 134 L (136-145) mmol/L Potassium 3.8 (3.5-5.1) mmol/L Chloride 97 L (98-107) mmol/L Carbon Dioxide 32 (21-32) mmol/L Anion Gap 5 (3-11) BUN 14 (6-23) mg/dl Creatinine 0.83 (0.6-1.2) mg/dl Est Cr Clr Drug Dosing 63.0 ml/min eGFR 81.16 BUN/Creatinine Ratio 16.9 (10-20) Glucose 105 H (70-99(Fasting)) mg/dl Lactate 0.6 (0.4-2.0) mmol/L Calcium 8.3 L (8.6-10.3) mg/dl Phosphorus 3.3 (2.5-4.9) mg/dl Magnesium 2.0 (1.7-2.4) mg/dl Procalcitonin 0.30 (0-0.5) ng/ml Urine Color Urine Appearance (Clear) Urine pH (4.5-7.5) Ur Specific [place] (1.000-1.030) Urine Protein (Negative) Urine Glucose (UA) (Negative) Urine Ketones (Negative) Urine Blood (Negative) Urine Nitrite (Negative) Urine Bilirubin (Negative) Urine Urobilinogen (Negative) Ur Leukocyte Esterase (Negative) Urine WBC (Auto) (0-5) /hpf Urine RBC (Auto) (0-2) /hpf U Hyaline Cast (Auto) (0-2) /lpf U Epithel Cells (Auto) (0-2) /hpf Urine Bacteria (Auto) (None Seen) Urine Comment Nasal Screen MRSA (PCR) Negative (Negative) Adenovirus (PCR) (NotDetected) B. pertussis DNA (PCR) (NotDetected) B.parapertussis DNA PCR (NotDetected) C. pneumoniae DNA (PCR) (NotDetected) Coronavirus OC43 (PCR) (NotDetected) Coronavirus HKU1 (PCR) (NotDetected) Coronavirus 229E (PCR) (NotDetected) SARS-CoV-2 (PCR) (NotDetected) Coronavirus NL63 (PCR) (NotDetected) Human Metapneumovir PCR (NotDetected) Influenza Type A (PCR) (NotDetected) Influenza Type B (PCR) (NotDetected) M. pneumoniae (PCR) (NotDetected) Parainfluenza 1 (PCR) (NotDetected) Parainfluenza 2 (PCR) (NotDetected) Parainfluenza 3 (PCR) (NotDetected) Parainfluenza 4 (PCR) (NotDetected) RSV (PCR) (NotDetected) Entero/Rhino (PCR) (NotDetected) Medications Administered Current Inpatient Medications Bisacodyl (Bisacodyl 10 Mg Supp) 10 mg IN DAILY PRN PRN Reason: Constipation Stop: 04/01/25 10:55 Calcium Carbonate (Calcium Carbonate 1,250 Mg/5 Ml Udc) 1,250 mg PO BID SWAPNA Stop: 03/28/25 20:59 Last Admin: 03/02/25 20:52 Dose: 1,250 mg Clobazam (Clobazam 5 Mg Tab) 5 mg PO HS SWAPNA Stop: 03/24/25 20:59 Last Admin: 03/02/25 20:53 Dose: 5 mg Deutetrabenazine (Austedo Xr 36 Mg Tab) 1 each PO DAILY SWAPNA Stop: 03/24/25 13:59 Last Admin: 03/02/25 09:31 Dose: 1 each Enoxaparin Sodium (Enoxaparin Inj 40 Mg/0.4 Ml Syr) 40 mg SQ Q24H SWAPNA Stop: 03/24/25 08:59 Last Admin: 02/28/25 17:00 Dose: 40 mg Glycopyrrolate (Glycopyrrolate 1 Mg Tab) 1 mg PO TID SWAPNA Stop: 03/24/25 08:59 Last Admin: 03/02/25 20:52 Dose: 1 mg Piperacillin Sod/Tazobactam Sod (Zosyn) 4.5 gm in 100 mls @ 25 mls/hr IV Q8H [facility]; Protocol Stop: 03/06/25 01:59 Last Infusion: 03/03/25 06:00 Dose: Infused Promethazine HCl (Phenergan) 6.25 mg in 50.25 mls @ 201 mls/hr IV Q6H PRN PRN Reason: Nausea And Vomiting Stop: 03/30/25 23:13 Pantoprazole Sodium (Protonix) 40 mg in 10 mls @ 5 mls/min IV BID SWAPNA Stop: 03/31/25 08:59 Last Admin: 03/02/25 20:50 Dose: 5 mls/min Vancomycin HCl (Vancomycin Hcl) 1,000 mg in 270 mls @ 200 mls/hr IV Q12H [facility] Stop: 03/12/25 20:59 Last Infusion: 03/02/25 22:28 Dose: Infused Ipratropium [place] (Ipratropium [place] Neb Soln 0.02% 0.5mg/2.5ml Vial) 0.5 mg INH Q4H PRN PRN Reason: SOB WHEEZE Stop: 03/30/25 23:21 Lamotrigine (Lamotrigine 100 Mg Tab) 200 mg PO [facility]; Protocol Stop: 03/24/25 08:59 Last Admin: 03/02/25 20:52 Dose: 200 mg Lamotrigine (Lamotrigine 25 Mg Tab) 50 mg PO [facility]; Protocol Stop: 03/24/25 08:59 Last Admin: 03/02/25 20:53 Dose: 50 mg Levalbuterol HCl (Levalbuterol 1.25 Mg/3 Ml Neb) 1.25 mg NEB Q4H PRN PRN Reason: sob wheeze Stop: 03/30/25 23:10 Levetiracetam (Levetiracetam 500 Mg/5 Ml Vial) 1,500 mg IV Q12H [facility]; Protocol Stop: 03/31/25 08:59 Last Admin: 03/02/25 20:50 Dose: 1,500 mg Miscellaneous Information (Vancomycin Consult Active) 1,000 each N/A UD PRN PRN Reason: Consult Stop: 04/01/25 07:50 Nitroglycerin (Nitroglycerin Sl 0.4 Mg/Tab Tab) 0.4 mg SL Q5M PRN PRN Reason: Chest Pain Stop: 03/24/25 00:58 Ondansetron HCl (Ondansetron Inj 2 Mg/Ml 2 Ml Vial) 4 mg IV Q6H PRN PRN Reason: Nausea Stop: 03/24/25 00:58 Last Admin: 03/01/25 00:59 Dose: 4 mg Perphenazine (Perphenazine 2 Mg Tab) 2 mg PO [facility] SWAPNA Stop: 03/24/25 08:59 Last Admin: 03/02/25 20:52 Dose: 2 mg Perphenazine (Perphenazine 4 Mg Tab) 4 mg PO HS SWAPNA Stop: 03/24/25 20:59 Last Admin: 03/02/25 20:53 Dose: 4 mg Quetiapine Fumarate (Quetiapine Fumarate 200 Mg Tab) 200 mg PO HS SWAPNA Stop: 03/24/25 20:59 Last Admin: 03/02/25 20:52 Dose: 200 mg Quetiapine Fumarate (Quetiapine Fumarate 25 Mg Tablet) 50 mg PO QAM SWAPNA Stop: 03/24/25 08:59 Last Admin: 03/02/25 09:31 Dose: 50 mg Sertraline HCl (Sertraline Hcl 100 Mg Tablet) 100 mg PO QAM SWAPNA Stop: 03/24/25 08:59 Last Admin: 03/02/25 09:33 Dose: 100 mg
--- NOTE | 2025-03-03 11:21 | Surgery Progress Note ---
<Statement entered by Cathie Headley, - 03/03/25 11:59> Pt nonverbal and does not respond to examination. Due to her condition, staff is unable to confirm flatus but confirms she has not had BMS. No reports of obstructive symptoms with soft abdomen and prior two KUBs with evidence for air in the colon so may try clears Date of Service March 03, 2025 Assessment & Plan (1) Small bowel obstruction: Plan: pt here with SBO earlier this admission and concern for recurrence last two KUBs obtained showed resolution No n/v since 02/28 evening abdomen soft and appears non tender No recent bowel function, can continue prn suppositories or bowel regimen from our POV may initiate clears, if tolerates slowly advance as able Admission and Anticipated Discharge Date Admission Date: February 22, 2025 Subjective Patient resting in bed. in no acute distress. awakens to palpation. nonverbal with us Physical Exam Physical Exam: resting, but easy to waken. appears in no distress Gastrointestinal (Abdomen): Percussion/Palpation: abdomen soft; abdomen nontender (does not appear tender to palpation ) Results & Data Vital Signs (Past 12 Hours) Vital Signs Temp Pulse Pulse Resp BP Pulse Ox O2 Del Method 03/03/25 08:00 Room Air 03/03/25 07:47 98.4 F 95 H 22 136/79 92 Room Air 03/03/25 03:52 98.2 F 93 H 24 131/82 96 Room Air 03/02/25 23:19 105 H PG Care Time/CCT Total # of Minutes Spent Total Time Spent with Patient: Total time spent is greater than 50% in coordination of care (as documented) at patient's floor/unit and/or counseling patient: Coding Level of Care Code 72597 SUB INP/OBS CARE 09/11MIN Diagnoses Small bowel obstruction K56.609
[2025-03-03] MEDS: POLYETHYLENE (MIRALAX) 17 GM PACK PO SCH (18:22)
[2025-03-03] MEDS: POTASSIUM CHLORIDE / WTR 10 MEQ/100 ML PLCT IV ONE (18:22)
[2025-03-04] MEDS: VANCOMYCIN LEVEL ONE (04:22)
[2025-03-04 05:53] LABS: Hematocrit (blood only) 21.5 % (37.0-47.0); Hemoglobin 7.1 g/dl (12.0-16.0); Mean Corpuscular Hemoglobin 29.2 pg (25.0-34.0); Mean Corpuscular Volume 88.5 fL (80.0-100.0); Platelet Count 267 K/uL (130-400); RDW Standard Deviation 44.8 fL (36.4-46.3); Red Blood Count 2.43 M/uL (4.20-5.40); White Blood Count 10.89 K/ul (4.8-10.8)
[2025-03-04 06:10] LABS: Anion Gap 6.0 (3-11); Blood Urea Nitrogen 14.0 mg/dl (6-23); Calcium 7.9 mg/dl (8.6-10.3); Carbon Dioxide 30.0 mmol/L (21-32); Chloride 101.0 mmol/L (98-107); Creatinine Clr Calc Pharmacy 65.4 ml/min; Glucose 101.0 mg/dl (70-99(Fasting)); Magnesium 1.7 mg/dl (1.7-2.4); Potassium 3.4 mmol/L (3.5-5.1); Sodium 137.0 mmol/L (136-145)
[2025-03-04] MEDS: POTASSIUM CHLORIDE / WTR 10 MEQ/100 ML PLCT IV SCH (08:15)
[2025-03-04] MEDS: MAGNESIUM SULFATE / D5W 1 GM/100 ML BAG IV ONE ×2 (08:16→10:42)
--- NOTE | 2025-03-04 08:55 | Pharmacy Report ---
Pharmacy PK ABX Note - Date of Service March 04, 2025 - Assessment and Plan Assessment 03/04 * Day 3 of vancomycin IV. Patient last febrile 03/02 AM. WBC continues to trend downward (of note, was trending down prior to addition of vancomycin). Repeat preliminary BC with no growth and repeat urine culture growing C. albicans. ID re-consulted on 03/03. * Patient continues on pip/tazo for continued treatment of complicated Pseudomonas aeruginosa UTI s/p left nephroureteral stent (exchanged on 02/28/25) and possible aspiration pna. * Vanco level obtained this morning @ 0525 resulted at 20.7 mcg/mL. Predicted steady state AUC/KVNG exceeds 600. Will slightly reduce vancomycin dose. 03/02 * 59 year old F receiving Zosyn for treatment of pseudomonas UTI (started 02/26). Vancomycin was added today as patient still spiking fevers and continues with leukocytosis (though improved from admission). * Pertinent PMH: CKD III, fecal and urinary incontinence, left nephrolithiasis. She underwent stent exchange, cystoscopy, and stone ablation 03/01 * Pertinent microbiologic data includes: 02/21 straight cath urine culture grew P. aeruginosa; blood cultures x 2 from 02/22 are negative; Blood and urine cultures from 03/02 are pending; MRSA nasal swab is negative * Renal function is stable and at baseline and procal 0.3 today Day # 1 of vancomycin therapy (day #5 Zosyn) Plan Vancomycin * 750 mg IV every 12 hours (new dose to start 7 PM) * Regimen is predicted to achieve target AUC/KVNG of 400-600 mg/L.hr * est. steady state AUC/KVNG = 460 * Additional level monitoring pending determination of duration of vanco therapy Zosyn 4.5gm IV q8h Pharmacy will continue to follow and will adjust dose/frequency as necessary. Thank you.
--- NOTE | 2025-03-04 10:03 | Hospitalist Progress Note ---
Date of Service March 04, 2025 Assessment & Plan (1) Small bowel obstruction: Plan: Per previous hospitalist w/ addendum: Pt is a 59 yo female from [facility] with past medical history significant for severe intellectual disability, autism, epilepsy, recurrent MDD, OCD, mood disorder, history of SIADH, CKD stage III, GERD, sensorineural hearing loss of both ears, lesion of right lower liver, fecal and urinary incontinence, left nephrolithiasis, excessive salivation, osteoarthritis admitted for nausea and vomiting secondary to small bowel obstruction. Patient was also noted to have acute cystitis. Patient is underwent stent exchange, cystoscopy and stone ablation yesterday #Acute complicated cystitis Recently had left nephroureteral stent placement for kidney stones and had Pseudomonas UTI Transitioned to zosyn for possible aspiration. Cultures are growing Pseudomonas again with broad sensitivity Initial Blood cultures are negative ID consulted, reviewed recommendations: -On discharge, transition to ciprofloxacin 500 mg PO q12h through 03/07 to complete a total 14 day course of antibiotics, given L ureteral stent in place. EKG ordered In summary as of 03/04 Pt initially admitted for SBO, which seemingly resolved on 02/25 Pt then underwent on 02/28/25 Cystoscopy with left Ureteroscopy, Retrograde Pyelogram, Ureteral Dilation, Laser Destruction of Stone, Basket Extraction of Stones, and Exchange of Stent Catheter - Left(Left) with Dr Napoles. Had bilious vomiting and hematemesis evening postop. and X-ray showed recurrent SBO. NG tube placed but Patient has pulled out her NG tube x 2. There has been no further vomiting. Suspect the vomiting caused a possible Hina-Singh tear. There has been no further bleeding or hematemesis. Surgery has been reconsulted. Per previous hospitalist - Patient has been tolerating her meds with a small sip. She was made NPO. WBC normalized previously, then trended up again with WBC up at 20K on 03/01 , pt on Zosyn during this time 7/ Temp 38C / 37.9 C Ordered CXR, KUB, blood cultx, procalcitonin, repeat urine, MRSA swab. Biofire. Added vanco to zosyn. Transferred pt to PCU. Biofire positive for Rhino/Enterovirus. Urine posit. for carrington so far, previously posit. for Pseudomonas. Blood cultx pending. SBO seems to be resolved Now afebrile WBC down to 10K now, Hgb also down at 7.1 Discussed w/ RN 03/02/2025 Yesterday WBC up at 20K, pt on zosyn Today AM temp 38C, yesterday AM 37.9C WBC down to 15K KUB on 02/28 w/ recurring sbo vs. ileus KUB on 03/01 seems w/ resolving sbo/ ileus Ordered CXR, KUB, blood cultx, procalcitonin, repeat urine, MRSA swab. Adding vanco to zosyn. Transferring pt to PCU. #hypomagnesemia #hypophosphatemia #hypokalemia continue replacement prn trends labs #Hypoxia Possible aspiration Continue on antibiotics as above reposition as able Currently on room air #Chronic heart failure with preserved ejection fraction monitor for volume overload #Intellectual disability/, MDD,/OCD/, tardive dyskinesia Nonverbal Continue home medications #Epilepsy Continue home p.o. medications when taking p.o. #Small bowel obstruction resolved and now w/ re-occurrence postop No further nausea and vomiting. NG tube is out (she pulled it out twice). General surgery has been reconsulted KUB on 02/28 w/ recurrent SBO/ ileus repeat KUB on 03/01 seems w/ resolving sbo/ileus Had BM yesterday Consult GI if there is any further hematemesis DVT prophylaxis:Lovenox Disposition Back to [facility] when medically stable Continue med/telemetry Full code. Admission and Anticipated Discharge Date Admission Date: February 22, 2025 Subjective Pt seen in follow up Pt initially admitted for SBO, which seemingly resolved on 02/25 Pt then underwent on 02/28/25 Cystoscopy with left Ureteroscopy, Retrograde Pyelogram, Ureteral Dilation, Laser Destruction of Stone, Basket Extraction of Stones, and Exchange of Stent Catheter - Left(Left) with Dr Napoles. Had bilious vomiting and hematemesis evening postop. and X-ray showed recurrent SBO. NG tube placed but Patient has pulled out her NG tube x 2. There has been no further vomiting. Suspect the vomiting caused a possible Hina-Singh tear. There has been no further bleeding or hematemesis. Surgery has been reconsulted. Per previous hospitalist - Patient has been tolerating her meds with a small sip. She was made NPO. WBC normalized previously, then trended up again with WBC up at 20K, pt on Zosyn during this time Pt also febrile at that time Now afebrile Biofire positive for Rhino/Enterovirus. Urine posit. for carrington so far, previously posit. for Pseudomonas. Blood cultx pending. SBO seems to be resolved WBC down to 10K now, Hgb also down at 7.1 -> fobt ordered, discussed w/ RN Pt lying in bed and awake, responsive. appears comfortable. currently w/ restraints, was pulling IVs last evening Review of Systems Review of Systems: Unobtainable due to mental health condition Physical Exam Physical Exam: General- adult female WD/WN in NAD, on RA Chronic ill appearance. She is nonverbal. Lungs- decreased breath sounds, + cough with deep inspiration Heart- regular Abdomen- soft, no apparent tenderness Extremities- no LE edema Neuro- nonverbal, awake, moves extremities Skin- warm & dry Results & Data Results & Data Vital Signs (Past 12 Hours) Vital Signs Temp Pulse Pulse Resp BP Pulse Ox O2 Del Method 03/04/25 07:22 37.3 C 82 16 126/75 92 Room Air 03/04/25 02:49 36.8 C 87 19 121/75 93 Room Air 03/03/25 23:28 37.1 C 92 H 18 123/75 90 Room Air 03/03/25 22:12 Room Air 03/03/25 22:06 85 Laboratory Results 03/04/25 Range/Units 05:25 WBC 10.89 H (4.8-10.8) K/ul RBC 2.43 L (4.20-5.40) M/uL Hgb 7.1 L (12.0-16.0) g/dl Hct 21.5 L (37.0-47.0) % MCV 88.5 (80.0-100.0) fL MCH 29.2 (25.0-34.0) pg MCHC 33.0 (32.0-36.0) g/dL RDW Std Deviation 44.8 (36.4-46.3) fL RDW Coeff of Nic 13.9 (11.5-14.5) % Plt Count 267 (130-400) K/uL MPV 10.8 (9.4-12.4) fL Sodium 137 (136-145) mmol/L Potassium 3.4 L (3.5-5.1) mmol/L Chloride 101 (98-107) mmol/L Carbon Dioxide 30 (21-32) mmol/L Anion Gap 6 (3-11) BUN 14 (6-23) mg/dl Creatinine 0.80 (0.6-1.2) mg/dl Est Cr Clr Drug Dosing 65.4 ml/min eGFR 84.82 BUN/Creatinine Ratio 17.5 (10-20) Glucose 101 H (70-99(Fasting)) mg/dl Calcium 7.9 L (8.6-10.3) mg/dl Phosphorus 2.6 (2.5-4.9) mg/dl Magnesium 1.7 (1.7-2.4) mg/dl Random Vancomycin 20.7 H (10-20) mcg/ml Medications Administered Current Inpatient Medications Bisacodyl (Bisacodyl 10 Mg Supp) 10 mg [place] DAILY PRN PRN Reason: Constipation Stop: 04/01/25 10:55 Last Admin: 03/03/25 12:45 Dose: 10 mg Calcium Carbonate (Calcium Carbonate 1,250 Mg/5 Ml Udc) 1,250 mg PO BID [facility] Stop: 03/28/25 20:59 Last Admin: 03/04/25 09:10 Dose: Not Given Clobazam (Clobazam 5 Mg Tab) 5 mg PO HS [facility] Stop: 03/24/25 20:59 Last Admin: 03/03/25 21:04 Dose: Not Given Deutetrabenazine (Austedo Xr 36 Mg Tab) 1 each PO DAILY [facility] Stop: 03/24/25 13:59 Last Admin: 03/04/25 08:16 Dose: 1 each Enoxaparin Sodium (Enoxaparin Inj 40 Mg/0.4 Ml Syr) 40 mg SQ Q24H [facility] Stop: 03/24/25 08:59 Last Admin: 02/28/25 17:00 Dose: 40 mg Glycopyrrolate (Glycopyrrolate 1 Mg Tab) 1 mg PO TID [facility] Stop: 03/24/25 08:59 Last Admin: 03/04/25 08:12 Dose: 1 mg Piperacillin Sod/Tazobactam Sod (Zosyn) 4.5 gm in 100 mls @ 25 mls/hr IV Q8H [facility]; Protocol Stop: 03/06/25 01:59 Last Infusion: 03/04/25 08:35 Dose: Infused Promethazine HCl (Phenergan) 6.25 mg in 50.25 mls @ 201 mls/hr IV Q6H PRN PRN Reason: Nausea And Vomiting Stop: 03/30/25 23:13 Pantoprazole Sodium (Protonix) 40 mg in 10 mls @ 5 mls/min IV BID [facility] Stop: 03/31/25 08:59 Last Admin: 03/04/25 08:17 Dose: 5 mls/min Vancomycin HCl (Vancomycin Hcl) 1,000 mg in 270 mls @ 200 mls/hr IV Q12H [facility] Stop: 03/04/25 12:00 Last Admin: 03/04/25 09:10 Dose: 200 mls/hr Vancomycin HCl 750 mg/ Sodium (Chloride) 265 mls @ 200 mls/hr IV Q12H [facility] Stop: 03/12/25 20:59 Ipratropium [place] (Ipratropium [place] Neb Soln 0.02% 0.5mg/2.5ml Vial) 0.5 mg INH Q4H PRN PRN Reason: SOB WHEEZE Stop: 03/30/25 23:21 Lamotrigine (Lamotrigine 100 Mg Tab) 200 mg PO [facility]; Protocol Stop: 03/24/25 08:59 Last Admin: 03/04/25 08:15 Dose: 200 mg Lamotrigine (Lamotrigine 25 Mg Tab) 50 mg PO [facility]; Protocol Stop: 03/24/25 08:59 Last Admin: 03/04/25 08:12 Dose: 50 mg Levalbuterol HCl (Levalbuterol 1.25 Mg/3 Ml Neb) 1.25 mg NEB Q4H PRN PRN Reason: sob wheeze Stop: 03/30/25 23:10 Levetiracetam (Levetiracetam 500 Mg/5 Ml Vial) 1,500 mg IV Q12H [facility]; Protocol Stop: 03/31/25 08:59 Last Admin: 03/04/25 08:17 Dose: 1,500 mg Miscellaneous Information (Vancomycin Consult Active) 1,000 each N/A UD PRN PRN Reason: Consult Stop: 04/01/25 07:50 Nitroglycerin (Nitroglycerin Sl 0.4 Mg/Tab Tab) 0.4 mg SL Q5M PRN PRN Reason: Chest Pain Stop: 03/24/25 00:58 Ondansetron HCl (Ondansetron Inj 2 Mg/Ml 2 Ml Vial) 4 mg IV Q6H PRN PRN Reason: Nausea Stop: 03/24/25 00:58 Last Admin: 03/01/25 00:59 Dose: 4 mg Perphenazine (Perphenazine 2 Mg Tab) 2 mg PO [facility] Stop: 03/24/25 08:59 Last Admin: 03/04/25 08:17 Dose: 2 mg Perphenazine (Perphenazine 4 Mg Tab) 4 mg PO [facility] Stop: 03/24/25 20:59 Last Admin: 03/03/25 20:25 Dose: 4 mg Polyethylene Glycol (Polyethylene (Miralax) 17 Gm Pack) 17 gm PO DAILY [facility] Stop: 04/02/25 17:14 Last Admin: 03/04/25 08:19 Dose: 17 gm Quetiapine Fumarate (Quetiapine Fumarate 200 Mg Tab) 200 mg PO [facility] Stop: 03/24/25 20:59 Last Admin: 03/03/25 20:22 Dose: 200 mg Quetiapine Fumarate (Quetiapine Fumarate 25 Mg Tablet) [facility] Stop: 03/24/25 08:59 Last Admin: 03/04/25 08:16 Dose: 50 mg Sertraline HCl (Sertraline Hcl 100 Mg Tablet) [facility] Stop: 03/24/25 08:59 Last Admin: 03/04/25 08:17 Dose: 100 mg
[2025-03-04] MEDS ORDERED: VANCOMYCIN 750 MG in SODIUM CHLORIDE 0.9% 250 ML IV SCH (21:00)
[2025-03-05 06:50] LABS: Hematocrit (blood only) 21.9 % (37.0-47.0); Hemoglobin 7.3 g/dl (12.0-16.0); Mean Corpuscular Hemoglobin 29.2 pg (25.0-34.0); Mean Corpuscular Volume 87.6 fL (80.0-100.0); Platelet Count 301 K/uL (130-400); RDW Standard Deviation 44.1 fL (36.4-46.3); Red Blood Count 2.50 M/uL (4.20-5.40); White Blood Count 10.71 K/ul (4.8-10.8)
[2025-03-05 07:06] LABS: Anion Gap 6.0 (3-11); Blood Urea Nitrogen 13.0 mg/dl (6-23); Calcium 7.8 mg/dl (8.6-10.3); Carbon Dioxide 30.0 mmol/L (21-32); Chloride 100.0 mmol/L (98-107); Creatinine Clr Calc Pharmacy 58.1 ml/min; Glucose 103.0 mg/dl (70-99(Fasting)); Magnesium 2.1 mg/dl (1.7-2.4); Potassium 3.7 mmol/L (3.5-5.1); Sodium 136.0 mmol/L (136-145)
--- NOTE | 2025-03-05 07:43 | Hospitalist Progress Note ---
Date of Service March 05, 2025 Assessment & Plan (1) Small bowel obstruction: Plan: Per previous hospitalist w/ addendum: Pt is a 59 yo female from [facility] with past medical history significant for severe intellectual disability, autism, epilepsy, recurrent MDD, OCD, mood disorder, history of SIADH, CKD stage III, GERD, sensorineural hearing loss of both ears, lesion of right lower liver, fecal and urinary incontinence, left nephrolithiasis, excessive salivation, osteoarthritis admitted for nausea and vomiting secondary to small bowel obstruction. Patient was also noted to have acute cystitis. Patient is underwent stent exchange, cystoscopy and stone ablation yesterday #Acute complicated cystitis Recently had left nephroureteral stent placement for kidney stones and had Pseudomonas UTI Transitioned to zosyn for possible aspiration. Cultures are growing Pseudomonas again with broad sensitivity Initial Blood cultures are negative ID consulted, reviewed recommendations: -On discharge, transition to ciprofloxacin 500 mg PO q12h through 03/07 to complete a total 14 day course of antibiotics, given L ureteral stent in place. EKG ordered In summary as of 03/05 Pt initially admitted for SBO, which seemingly resolved on 02/25 Pt then underwent on 02/28/25 Cystoscopy with left Ureteroscopy, Retrograde Pyelogram, Ureteral Dilation, Laser Destruction of Stone, Basket Extraction of Stones, and Exchange of Stent Catheter - Left(Left) with Dr Napoles. Had bilious vomiting and hematemesis evening postop. and X-ray showed recurrent SBO. NG tube placed but Patient has pulled out her NG tube x 2. There has been no further vomiting. Suspect the vomiting caused a possible Hina-Singh tear. There has been no further bleeding or hematemesis. Surgery has been reconsulted. Per previous hospitalist - Patient has been tolerating her meds with a small sip. She was made NPO. WBC normalized previously, then trended up again with WBC up at 20K on 03/01 , pt on Zosyn during this time 03/01 - Temp 38C / 37.9 C 03/02 Ordered CXR, KUB, blood cultx, procalcitonin, repeat urine, MRSA swab. Biofire. Added vanco to zosyn. Transferred pt to PCU. Biofire positive for Rhino/Enterovirus. Urine posit. for carrington so far, previously posit. for Pseudomonas. Blood cultx negat. for 48 hrs SBO seems resolved -> however now abdomen seems distended and pt grunting - will repeat KUB Afebrile WBC down to 10K now, Hgb also down at 7.3 Discussed w/ RN #hypomagnesemia #hypophosphatemia #hypokalemia continue replacement prn trends labs #Hypoxia Possible aspiration Continue on antibiotics as above reposition as able Currently on room air #Chronic HF with preserved EF monitor for volume overload #Intellectual disability/, MDD,/OCD/, tardive dyskinesia Nonverbal Continue home medications #Epilepsy Continue home p.o. medications when taking p.o. #Small bowel obstruction resolved and now w/ re-occurrence postop No further nausea and vomiting. NG tube is out (she pulled it out twice). General surgery has been reconsulted KUB on 02/28 w/ recurrent SBO/ ileus repeat KUB on 03/01 seems w/ resolving sbo/ileus Had BM w/ miralax Consult GI if there is any further hematemesis 03/05/25 Now abdomen seems distended and pt grunting - will obtain KUB DVT prophylaxis:Lovenox Disposition Back to [facility] when medically stable Continue med/telemetry Full code. Admission and Anticipated Discharge Date Admission Date: February 22, 2025 Subjective Pt seen in follow up Pt initially admitted for SBO, which seemingly resolved on 02/25 Pt then underwent on 02/28/25 Cystoscopy with left Ureteroscopy, Retrograde Pyelogram, Ureteral Dilation, Laser Destruction of Stone, Basket Extraction of Stones, and Exchange of Stent Catheter - Left(Left) with Dr Napoles. Had bilious vomiting and hematemesis evening postop. and X-ray showed recurrent SBO. NG tube placed but Patient has pulled out her NG tube x 2. There has been no further vomiting. Suspect the vomiting caused a possible Hina-Singh tear. There has been no further bleeding or hematemesis. Surgery has been reconsulted. Per previous hospitalist - Patient has been tolerating her meds with a small sip. She was made NPO. WBC normalized previously, then trended up again with WBC up at 20K, pt on Zosyn during this time Pt also febrile at that time Now afebrile Biofire positive for Rhino/Enterovirus. Urine posit. for carrington so far, previously posit. for Pseudomonas. Blood cultx pending. SBO seems resolved WBC down to 10K now, Hgb also down, fobt ordered, discussed w/ RN Pt lying in bed and awake, responsive. grunting, she is nonverbal at baseline. No restraints at this time. Abdomen seems somewhat distended and pt grunting, will repeat KUB Review of Systems Review of Systems: Unobtainable due to mental health condition Physical Exam Physical Exam: General- adult female WD/WN in NAD, on RA Chronic ill appearance. She is nonverbal. Lungs- decreased breath sounds, + cough with deep inspiration Heart- regular Abdomen- soft, no apparent tenderness Extremities- no LE edema Neuro- nonverbal, awake, moves extremities Skin- warm & dry Results & Data Results & Data Vital Signs (Past 12 Hours) Vital Signs Temp Pulse Pulse Resp BP BP Pulse Ox 03/05/25 07:21 37.1 C 74 20 130/69 93 03/05/25 03:10 36.6 C 90 16 124/68 94 03/05/25 00:06 89 03/04/25 23:11 37.1 C 90 17 126/62 92 03/04/25 21:00 O2 Del Method 03/05/25 07:21 Room Air 03/05/25 03:10 Room Air 03/05/25 00:06 03/04/25 23:11 Room Air 03/04/25 21:00 Room Air Laboratory Results 03/05/25 Range/Units 06:28 WBC 10.71 (4.8-10.8) K/ul RBC 2.50 L (4.20-5.40) M/uL Hgb 7.3 L (12.0-16.0) g/dl Hct 21.9 L (37.0-47.0) % MCV 87.6 (80.0-100.0) fL MCH 29.2 (25.0-34.0) pg MCHC 33.3 (32.0-36.0) g/dL RDW Std Deviation 44.1 (36.4-46.3) fL RDW Coeff of Nic 13.8 (11.5-14.5) % Plt Count 301 (130-400) K/uL MPV 10.7 (9.4-12.4) fL Sodium 136 (136-145) mmol/L Potassium 3.7 (3.5-5.1) mmol/L Chloride 100 (98-107) mmol/L Carbon Dioxide 30 (21-32) mmol/L Anion Gap 6 (3-11) BUN 13 (6-23) mg/dl Creatinine 0.90 (0.6-1.2) mg/dl Est Cr Clr Drug Dosing 58.1 ml/min eGFR 73.64 BUN/Creatinine Ratio 14.4 (10-20) Glucose 103 H (70-99(Fasting)) mg/dl Calcium 7.8 L (8.6-10.3) mg/dl Phosphorus 3.5 (2.5-4.9) mg/dl Magnesium 2.1 (1.7-2.4) mg/dl Medications Administered Current Inpatient Medications Bisacodyl (Bisacodyl 10 Mg Supp) 10 mg [place] DAILY PRN PRN Reason: Constipation Stop: 04/01/25 10:55 Last Admin: 03/03/25 12:45 Dose: 10 mg Calcium Carbonate (Calcium Carbonate 1,250 Mg/5 Ml Udc) 1,250 mg PO BID [facility] Stop: 03/28/25 20:59 Last Admin: 03/04/25 21:10 Dose: 1,250 mg Clobazam (Clobazam 5 Mg Tab) 5 mg PO HS [facility] Stop: 03/24/25 20:59 Last Admin: 03/04/25 21:16 Dose: 5 mg Deutetrabenazine (Austedo Xr 36 Mg Tab) 1 each PO DAILY [facility] Stop: 03/24/25 13:59 Last Admin: 03/04/25 08:16 Dose: 1 each Enoxaparin Sodium (Enoxaparin Inj 40 Mg/0.4 Ml Syr) 40 mg SQ Q24H [facility] Stop: 03/24/25 08:59 Last Admin: 02/28/25 17:00 Dose: 40 mg Glycopyrrolate (Glycopyrrolate 1 Mg Tab) 1 mg PO TID [facility] Stop: 03/24/25 08:59 Last Admin: 03/04/25 21:31 Dose: 1 mg Guaifenesin (Guaifenesin Sugar Free 200 Mg/10 Ml Udc) 200 mg PO QID [facility] Stop: 04/03/25 17:14 Last Admin: 03/04/25 21:10 Dose: 200 mg Piperacillin Sod/Tazobactam Sod (Zosyn) 4.5 gm in 100 mls @ 25 mls/hr IV Q8H [facility]; Protocol Stop: 03/07/25 23:59 Last Infusion: 03/05/25 05:38 Dose: Infused Promethazine HCl (Phenergan) 6.25 mg in 50.25 mls @ 201 mls/hr IV Q6H PRN PRN Reason: Nausea And Vomiting Stop: 03/30/25 23:13 Pantoprazole Sodium (Protonix) 40 mg in 10 mls @ 5 mls/min IV BID [facility] Stop: 03/31/25 08:59 Last Admin: 03/04/25 21:10 Dose: 5 mls/min Ipratropium [place] (Ipratropium [place] Neb Soln 0.02% 0.5mg/2.5ml Vial) 0.5 mg INH Q4H PRN PRN Reason: SOB WHEEZE Stop: 03/30/25 23:21 Lamotrigine (Lamotrigine 100 Mg Tab) 200 mg PO [facility]; Protocol Stop: 03/24/25 08:59 Last Admin: 03/04/25 21:20 Dose: 200 mg Lamotrigine (Lamotrigine 25 Mg Tab) 50 mg PO [facility]; Protocol Stop: 03/24/25 08:59 Last Admin: 03/04/25 21:21 Dose: 50 mg Levalbuterol HCl (Levalbuterol 1.25 Mg/3 Ml Neb) 1.25 mg NEB Q4H PRN PRN Reason: sob wheeze Stop: 03/30/25 23:10 Levetiracetam (Levetiracetam 500 Mg/5 Ml Vial) 1,500 mg IV Q12H [facility]; Protocol Stop: 03/31/25 08:59 Last Admin: 03/04/25 21:23 Dose: 1,500 mg Nitroglycerin (Nitroglycerin Sl 0.4 Mg/Tab Tab) 0.4 mg SL Q5M PRN PRN Reason: Chest Pain Stop: 03/24/25 00:58 Ondansetron HCl (Ondansetron Inj 2 Mg/Ml 2 Ml Vial) 4 mg IV Q6H PRN PRN Reason: Nausea Stop: 03/24/25 00:58 Last Admin: 03/01/25 00:59 Dose: 4 mg Perphenazine (Perphenazine 2 Mg Tab) 2 mg PO AMHS [facility] Stop: 03/24/25 08:59 Last Admin: 03/04/25 21:22 Dose: 2 mg Perphenazine (Perphenazine 4 Mg Tab) 4 mg PO HS [facility] Stop: 03/24/25 20:59 Last Admin: 03/04/25 21:22 Dose: 4 mg Polyethylene Glycol (Polyethylene (Miralax) 17 Gm Pack) 17 gm PO DAILY [facility] Stop: 04/02/25 17:14 Last Admin: 03/04/25 08:19 Dose: 17 gm Quetiapine Fumarate (Quetiapine Fumarate 200 Mg Tab) 200 mg PO HS [facility] Stop: 03/24/25 20:59 Last Admin: 03/04/25 21:22 Dose: 200 mg Quetiapine Fumarate (Quetiapine Fumarate 25 Mg Tablet) 50 mg PO QAM [facility] Stop: 03/24/25 08:59 Last Admin: 03/04/25 08:16 Dose: 50 mg Sertraline HCl (Sertraline Hcl 100 Mg Tablet) 100 mg PO QAM [facility] Stop: 03/24/25 08:59 Last Admin: 03/04/25 08:17 Dose: 100 mg
--- NOTE | 2025-03-05 13:43 | XRay Report ---
2 views of the abdomen were obtained Comparison is made to the prior examination dated 03/02/2025 Findings: There are mildly prominent air-filled small bowel loops, with colonic gas and stool present as well. This may be due to ileus. No definite renal or ureteral calculi are seen. A left ureteral stent is again seen. There is right hip osteoarthritis. There is lumbar scoliosis and degenerative disc disease. Impression: 1. Possible mild small bowel ileus 2. Unchanged left ureteral stent Electronically signed by Landon Cason 03-05-2025 13:43 PM
[2025-03-05] MEDS: SODIUM CHLORIDE 0.9% 500 ML IV ONE (15:03)
[2025-03-05] MEDS: POTASSIUM CHLORIDE / WTR 10 MEQ/100 ML PLCT IV SCH (15:04)
[2025-03-05] MEDS: GLYCERIN ADULT 12 SUPP/BOX SUPP PR ONE (15:04)
[2025-03-05] MEDS: LACTATED RINGER'S 1,000 ML IV SCH (22:58)
[2025-03-05] MEDS: PANTOprazole 40 MG in DEXTROSE 5% MINI-B 100 ML IV SCH (22:59)
[2025-03-06 07:19] LABS: Hematocrit (blood only) 22.9 % (37.0-47.0); Hemoglobin 7.3 g/dl (12.0-16.0); Mean Corpuscular Hemoglobin 28.0 pg (25.0-34.0); Mean Corpuscular Volume 87.7 fL (80.0-100.0); Platelet Count 353 K/uL (130-400); RDW Standard Deviation 45.2 fL (36.4-46.3); Red Blood Count 2.61 M/uL (4.20-5.40); White Blood Count 10.57 K/ul (4.8-10.8)
[2025-03-06 07:46] LABS: Anion Gap 6.0 (3-11); Blood Urea Nitrogen 13.0 mg/dl (6-23); Calcium 8.0 mg/dl (8.6-10.3); Carbon Dioxide 30.0 mmol/L (21-32); Chloride 99.0 mmol/L (98-107); Creatinine Clr Calc Pharmacy 56.9 ml/min; Glucose 104.0 mg/dl (70-99(Fasting)); Magnesium 1.9 mg/dl (1.7-2.4); Potassium 3.4 mmol/L (3.5-5.1); Sodium 135.0 mmol/L (136-145)
--- NOTE | 2025-03-06 08:16 | Gastrointestinal Consultation ---
Date of Consultation March 06, 2025 Assessment & Plan (1) Anemia: Noncommunicative patient with multiple medical problems including intellectual disability, autism, epilepsy and hearing loss with anemia and hemoccult positive stools. Admit H and P mentions the fact that she has had an EGD with EUS in the past but no mention as to results or why. I think evaluation could be considered but I also don't think she is having an active GI bleed. She did have hematemesis several days ago when her SBO first manifested itself and I agree it could well have been a stephane warren tear. i don't think she will cooperate with colonoscopy prep. I would just treat her empirically for acid peptic disease as you are doing and consider evaluation if bleeding becomes a clinically evident problem. Will follow History of Present Illness Reason for Consultation: anemia, occult blood (+) Attending Physician: Santos Mackenzie MD History of Present Illness 59 year old female in the hospital for a number of days who has had issues with kidney stones and SBO. On first episode of SBO she had hematemesis felt related to stephane warren but not pursued. I am asked to see her for anemia and occult blood (+) stools. Patient is unable to give me any history. Stools are documented in chart as "brown and formed". Hgb is 7.3 and it has ranged as high as 10 while in the hospital. Allergies Allergy/AdvReac Type Severity Reaction Status Date / Time caffeine Allergy Unknown Unknown Verified 02/09/25 14:57 naproxen Allergy Unknown no rxn Verified 02/09/25 14:57 info listed NSAIDS (Non-Steroidal Allergy Unknown no rxn Verified 02/09/25 14:57 Anti-Inflamma listed Home Medications Medication Instructions Recorded Confirmed Type acetaminophen 500 mg tablet 500 mg PO QAM chronic pain 12/15/24 02/21/25 History aloe vera 1 applic topical Q1H PRN Sunburn 12/15/24 02/21/25 History aluminum-mag hydroxide-simethicone 10 ml PO DIRECTED PRN 12/15/24 02/21/25 History 400 mg-400 mg-40 mg/5 mL oral susp Indigestion (Maalox Maximum Strength) bisacodyl 5 mg tablet,delayed 10 mg PO Q3D PRN Constipation 12/15/24 02/21/25 History release (Dulcolax (bisacodyl)) chlorhexidine gluconate 0.12 % 1 applic buccal TID chronic 12/15/24 02/21/25 History mouthwash gingivitis clobazam 10 mg tablet (Onfi) 5 mg PO HS 12/15/24 02/21/25 History deutetrabenazine 36 mg 36 mg PO DAILY 12/15/24 02/21/25 History tablet,extended release 24 hr (Austedo XR) docusate sodium 100 mg capsule 100 mg PO AMHS 12/15/24 02/21/25 History famotidine 40 mg tablet (Pepcid) 40 mg PO DAILY 12/15/24 02/21/25 History glycopyrrolate 1 mg tablet 1 mg PO TID excessive drooling 12/15/24 02/21/25 History (Robinul) hydrocortisone 1 % topical cream 1 applic topical TID PRN Rash 12/15/24 02/21/25 History lamotrigine 100 mg tablet 50 mg PO AMHS 12/15/24 02/21/25 History lamotrigine 200 mg tablet 200 mg PO AMHS 12/15/24 02/21/25 History (Lamictal) levetiracetam 1,000 mg tablet 1,000 mg PO BID 12/15/24 02/21/25 History levetiracetam 500 mg tablet 500 mg PO BID 12/15/24 02/21/25 History (Keppra) loperamide 2 mg capsule (Imodium 2 mg PO DIRECTED PRN Loose Stool 12/15/24 02/21/25 History A-D) multivitamin 1 tab PO QAM 12/15/24 02/21/25 History perphenazine 2 mg tablet 2 mg PO AMHS 12/15/24 02/21/25 History perphenazine 4 mg tablet 4 mg PO HS 12/15/24 02/21/25 History phosphorated carbohydrate oral 30 ml PO DIRECTED PRN Nausea 12/15/24 02/21/25 History solution (Emetrol oral solution) polyethylene glycol 3350 17 17 g PO QAM 12/15/24 02/21/25 History gram/dose oral powder (Miralax) quetiapine 200 mg tablet (Seroquel) 200 mg PO HS 12/15/24 02/21/25 History quetiapine 50 mg tablet (Seroquel) 50 mg PO QAM 12/15/24 02/21/25 History sertraline 100 mg tablet (Zoloft) 100 mg PO QAM 12/15/24 02/21/25 History cholecalciferol (vitamin D3) 125 125 mcg PO QAM #30 tabs 12/24/24 02/21/25 Rx mcg (5,000 unit) tablet ferrous sulfate 325 mg (65 mg 325 mg PO BIDM #60 tabs 12/24/24 02/21/25 Rx iron) tablet,delayed release calcium polycarbophil 625 mg 625 mg PO QAM 01/05/25 02/21/25 History tablet (FiberCon) neomycin-bacitracn Zn-polymyxn 3.5 1 applic topical BID PRN abrasion 01/05/25 02/21/25 History mg-400 unit-5,000 unit top oint until resolved pkt (Triple Antibiotic) acetaminophen 500 mg tablet 1,000 mg PO Q4H PRN elevated 02/09/25 02/21/25 History temp/headache/mild pain fluoride (sodium) 1.1 % dental 1 applic dental BID 02/09/25 02/21/25 History cream (SF 5000 Plus) calcium 500 mg (as 1 tab PO QAM 02/21/25 02/21/25 History carbonate)-vitamin D3 5 mcg (200 unit) tablet dextromethorphan-guaifenesin 10 5 ml PO Q4 PRN Cough 02/21/25 02/21/25 History mg-200 mg/5 mL oral liquid nystatin 100,000 unit/gram topical 1 applic topical HS 02/21/25 02/21/25 History cream Patient History Medical History Candidal cystitis and urethritis Other abnormalities of gait and mobility Respiratory failure with hypoxia hx not known per facility, hospitalized [facility] december 2024. At current O2 sats while awake 95 % per facility. Bilateral pleural effusion Left ureteral calculus Complicated UTI (urinary tract infection) Osteoarthritis of hips, bilateral Autism Severe intellectual disability Nocturnal hypoxemia per facility while in hospital 12/2024, suspected sleep apnea, sats would drop at night. Denies occuring currently. Alcantara catheter in place History of sepsis hospitalized [facility] december 2024. Resolved per facility. History of pneumonia (12/2024) hospitalized at [facility]. december 2024. resolved per facility. Congenital hiatus hernia Umbilical hernia Hydronephrosis with renal and ureteral calculous obstruction Iron deficiency anemia Epilepsy Fatty (change of) liver, not elsewhere classified Psychomotor deficit Flat foot Other acquired deformity of toe toes Myopathy extraocular muscles right orbit Diplopia Other forms of scoliosis, lumbar region Pure hypercholesterolemia, unspecified Major depressive disorder, recurrent Hypermetropia, bilateral Diarrhea, unspecified Drug induced subacute dyskinesia Tremor, unspecified Restlessness and agitation GERD without esophagitis Deficiency of other vitamins Depression Constipation Unspecified cataract Lump of right breast Urinary incontinence Chronic pain Repeated falls facility denies fall in past 90 days. Astigmatism unspecified, right eye unspecified, left eye Chronic gum disease chronic gingivitis , plaque induced Dysphagia Anxiety disorder, unspecified OCD (obsessive compulsive disorder) Dementia unspecified Somnolence Polypharmacy Surgical History History of cystoscopy (~12/16/24) Cystoscopy with irrigation of bladder and catheter placement. Left ureteroscopy, Retrograde Pyelogram, Left Stent Placement, ureteral dilation, and aspiration of left kidney Grade 2 view, glidescope 3, ETT 7.0. Surgical history unknown Social History Smoking Status: Unknown if ever smoked Second Hand Exposure: No; Hx Alcohol Use: No Hx Substance Use: No Preferred Language: Niuean Communication Ability: Unable Communication Ability Comment: pt. nonverbal, sometimes cooperates with medical staff physician Required: No Beliefs That Will Affect Care: None marital status: Single Current Living Situation: Other Current Living Situation Comment: correction current occupational status: disabled Feels Safe at Home: Yes Assistive Devices: Walker and Wheelchair Review of Systems Review of Systems: Unobtainable due to cognitive status Physical Exam Physical Exam: non communicative Constitutional: + ill appearing Respiratory: normal respiratory effort, lungs clear to auscultation Cardiovascular: RRR, no murmur, no edema Gastrointestinal (Abdomen): normal bowel sounds, soft, nontender, no hepatosplenomegaly Results & Data Vital Signs (Past 12 Hours) Vital Signs Temp Pulse Pulse Resp BP Pulse Ox O2 Del Method 03/06/25 07:54 37.5 C 80 17 132/83 92 Room Air 03/06/25 05:40 85 03/06/25 03:44 37.5 C 94 H 15 117/72 94 Room Air 03/05/25 22:53 37.0 C 86 14 136/78 95 Room Air Laboratory Results 03/06/25 03/05/25 Range/Units 06:23 21:52 WBC 10.57 (4.8-10.8) K/ul RBC 2.61 L (4.20-5.40) M/uL Hgb 7.3 L (12.0-16.0) g/dl Hct 22.9 L (37.0-47.0) % MCV 87.7 (80.0-100.0) fL MCH 28.0 (25.0-34.0) pg MCHC 31.9 L (32.0-36.0) g/dL RDW Std Deviation 45.2 (36.4-46.3) fL RDW Coeff of Nic 14.1 (11.5-14.5) % Plt Count 353 (130-400) K/uL MPV 10.8 (9.4-12.4) fL Sodium 135 L (136-145) mmol/L Potassium 3.4 L (3.5-5.1) mmol/L Chloride 99 (98-107) mmol/L Carbon Dioxide 30 (21-32) mmol/L Anion Gap 6 (3-11) BUN 13 (6-23) mg/dl Creatinine 0.92 (0.6-1.2) mg/dl Est Cr Clr Drug Dosing 56.9 ml/min eGFR 71.73 BUN/Creatinine Ratio 14.1 (10-20) Glucose 104 H (70-99(Fasting)) mg/dl Calcium 8.0 L (8.6-10.3) mg/dl Phosphorus 3.2 (2.5-4.9) mg/dl Magnesium 1.9 (1.7-2.4) mg/dl Stool Occult Bld Scrn Positive A (Negative) Diagnostic Findings Abdomen/Pelvis CT 02/21/25 19:35 Exam(s): CT ABDOMEN + PELVIS With Contrast IV Amt: 94ml EXAM: CT Abdomen and Pelvis With Intravenous Contrast CLINICAL HISTORY: Reason for exam: n/v/d nonverbal. TECHNIQUE: Axial computed tomography images of the abdomen and pelvis with intravenous contrast. CTDI is 23.23 mGy and DLP is 1203.36 mGy-cm. Automated exposure control was utilized for the study. A dose lowering technique was utilized adhering to the principles of ALARA. CONTRAST: Patient received 94ml of IV contrast COMPARISON: CT abdomen/pelvis: 09/25/2008 FINDINGS: Reduced diagnostic image quality due to motion and by patient's body characters. Lung bases: Bilateral mild bronchial wall cuffing and perihilar mild interstitial thickening. Likely calcified aortic and mitral valves. Gastroesophageal reflux of fluid. No consolidation.. No pleural effusion.. An elevated right hemidiaphragm. ABDOMEN: Liver: Unremarkable. No mass. Gallbladder and bile ducts: Unremarkable. No calcified stones. No ductal dilation. Pancreas: Diffusely atrophic pancreas. No contour deforming mass.. No ductal dilation. Spleen: Unremarkable. No splenomegaly. Adrenals: Unremarkable. No mass. Kidneys and ureters: A 5 mm right renal calculus in the lower pole calyx. Mild/moderate fullness of the left renal collecting system with a double pigtail ureteral catheter in situ. No solid mass. No right hydronephrosis. Stomach and bowel: A fluid/gas filled significantly distended stomach and multiple up to 3.5 cm dilated fluid/gas filled small bowel loops are seen throughout the abdomen and pelvis with a transition zone posteriorly in the pelvis, consistent with small bowel obstruction. (series 2 image 73). Liquid stool is seen in a borderline dilated ascending colon and gas in the transverse colon. No acute findings seen in the region of the appendix. PELVIS: Bladder: Empty with a Alcantara's catheter in situ. Reproductive: Markedly atrophic uterus. ABDOMEN and PELVIS: Intraperitoneal space: No free air. No significant fluid collection. Bones/joints: Moderately severe lumbar levoscoliosis with multilevel degenerative spondylitic changes. Moderately severe right hip osteoarthropathy with multiple subchondral cystic changes. No acute fracture. No dislocation. Soft tissues: Unremarkable. Vasculature: Diffusely calcified aortic atherosclerosis.. No abdominal aortic aneurysm. Lymph nodes: No significant enlarged lymph nodes.. IMPRESSION: Small bowel obstruction with a transition zone seen in the pelvis posteriorly. Liquid stool seen in a borderline distended ascending colon. Additional findings as described above. . Electronically signed by: Torrey Russell MD, DABR 02/21/25 22:55 PM Chest X-Ray 02/21/25 21:31 Exam(s): XR CXR 1 VIEW EXAM: XR Chest, 1 View CLINICAL HISTORY: Reason for exam: ? aspiration. TECHNIQUE: Frontal view of the chest. COMPARISON: Chest radiograph on 04/03/2023 FINDINGS: Hardware: None. Lungs/pleura: Bilateral lung opacities. Heart/mediastinum: Probable mild enlargement of the cardiac silhouette. Soft tissues: Unremarkable. Bones: No acute fracture. Upper abdomen: Normal. IMPRESSION: Bilateral lung opacities may represent atelectasis versus pneumonia versus edema. Pleural effusions not excluded. Electronically signed by: Royal Gordon M.D. 02/22/25 02:00 AM KUB X-Ray 02/23/25 08:24 KUB HISTORY: Acute generalized abdominal pain with small bowel obstruction SBO COMPARISON: CT 02/21/2025 FINDINGS: Distal tip of enteric tube projects over the expected location of the mid stomach. Cardiomegaly. Air-filled loops of large and small bowel. There is mild gaseous distention of the large bowel with transverse colon measuring up to 7 cm. Left renal stent appears to be in satisfactory positioning. Bilateral nephrolithiasis redemonstrated. No ureteral calculi are seen. No pneumoperitoneum or pneumatosis. Severe osteoarthritis of the right hip. No fracture. IMPRESSION: 1. Satisfactory positioning of the enteric tube. The bowel gas pattern appears nonobstructive on today's study. 2. Satisfactory positioning of the left ureteral stent. 3. Bilateral nephrolithiasis. ACT 112: Negative or not required by law. The above report was generated using voice recognition software. It may contain grammatical, syntax or spelling errors. Electronically signed by: Vince Cervantes M.D. 02/23/2025 10:34 AM Chest X-Ray 02/26/25 19:31 Chest radiograph, one view History: Cough Comparison: February 21, 2025 Findings: Single AP view of the chest performed. No focal consolidation or pleural effusion is visualized. No pneumothorax. Calcific granuloma inferior left lung. The cardiomediastinal silhouette is within normal limits. Indistinct pulmonary vascularity. Mild hazy perihilar opacity. No evidence for lymphadenopathy. No visualized bony or soft tissue abnormality. Impression: Indistinct pulmonary vascularity and mildly hazy perihilar opacity favoring pulmonary edema Electronically signed by Antwan Wadsworth 02-26-2025 8:05 PM Retrograde Pyelogram 02/28/25 14:14 FL retrograde includes kub CLINICAL HISTORY: CYSTO COMPARISON STUDY: None FLUOROSCOPY TIME: 51 seconds FLUOROSCOPY IMAGES: 4 EXPOSURE DOSE: 11 mGy FINDINGS: Fluoroscopy was provided for urologic procedure. IMPRESSION: Intraoperative fluoroscopy. ACT 112: Negative or not required by law. Electronically signed by: Filiberto Smith M.D. 02/28/2025 4:13 PM KUB X-Ray 02/28/25 23:13 EXAM: XR KUB/Abdomen 1 view CLINICAL HISTORY: emesis, hx sbo. TECHNIQUE: X-ray images of the abdomen were obtained in supine and upright positions. COMPARISON: 02/23/2025. FINDINGS: Left-sided ureteric catheter is seen with its proximal tip in the left renal area and distal tip in the pelvis. Gas Pattern: Multiple air-distended small bowel loops are noted within the central abdomen, concerning for possible small bowel obstruction/ileus. Moderate colonic stool volume reflecting constipation. Soft Tissues: The liver and spleen shadows are normal. Both renal areas are obscured by gas shadows. Bones: Moderate degenerative changes are noted at the right hip joint. IMPRESSION: Multiple air-distended small bowel loops are seen in the central abdomen, concerning for small bowel obstruction/ileus. Interval progressive as compared to the prior study. Recommend clinical correlation and follow-up. Moderate colonic stool volume reflecting constipation. Stable positioning of left ureteric stent. Electronically signed by Evangelist Delatorre 03-01-2025 01:38 AM KUB X-Ray 03/01/25 14:31 CLINICAL HISTORY: SBO -JMT COMPARISON: Prior CR abdomen DOS: 02-28-2025, 02-23-2025 TECHNIQUE: AP views of the abdomen and pelvis. FINDINGS: Kidneys, urinary bladder: Left renal double-J stent in place. No kink or breaks noted. No radio-dense calculus seen in bilateral lumbar regions, in the line of both ureters and in the vesical area. Lines and Tubes: None. Bowel Gas Pattern: Non-obstructive gastrointestinal gas pattern. Interval resolution of previously noted small bowel ileus and mild regression of colonic fecal loading noted. Peritoneum: No free air. No ascites. Soft tissue Shadows: Unremarkable. Bones: End plate osteophytes are seen in the imaged spine. Lung Bases: Visualized lung bases appear clear. IMPRESSION: 1. No renal, ureteric or vesical radio-dense calculus. Left renal double-J stent in place 2. Interval resolution of previously noted small bowel ileus and mild regression of colonic fecal loading noted. Electronically signed by Hong Mar 03-02-2025 12:36 AM Chest X-Ray 03/02/25 07:42 XR chest 1V portable CLINICAL HISTORY: fever, cough, poss. aspiration COMPARISON STUDY: 02/26/2025 and 02/21/2025 FINDINGS: Single view, rotated, portable erect chest was performed. When compared with the prior studies, the pulmonary vascular congestion has diminished. Chronic obscuration of the left lateral diaphragm and costophrenic angle is redemonstrated without interval change. Streaky opacities in the medial aspect of the left lung base are also stable. There are no new findings that would suggest a recent onset of pneumonia or aspiration. Pronounced degenerative changes are present involving the left shoulder joint. IMPRESSION: Stable exam as described. No acute findings. ACT 112: Negative or not required by law. Electronically signed by: Ines Myrick M.D. 03/02/2025 8:38 AM KUB X-Ray 03/02/25 07:45 KUB HISTORY: follow up SBO COMPARISON STUDY: 03/01/2025 FINDINGS: Stable left ureteral stent. There is moderate retained stool. No bowel distention seen. No gross free air. IMPRESSION: Stable exam. No acute findings seen. ACT 112: Negative or not required by law. The above report was generated using voice recognition software. It may contain grammatical, syntax or spelling errors. Electronically signed by: Filiberto Smith M.D. 03/02/2025 8:34 AM KUB X-Ray 03/05/25 13:07 2 views of the abdomen were obtained Comparison is made to the prior examination dated 03/02/2025 Findings: There are mildly prominent air-filled small bowel loops, with colonic gas and stool present as well. This may be due to ileus. No definite renal or ureteral calculi are seen. A left ureteral stent is again seen. There is right hip osteoarthritis. There is lumbar scoliosis and degenerative disc disease. Impression: 1. Possible mild small bowel ileus 2. Unchanged left ureteral stent Electronically signed by Landon Cason 03-05-2025 13:43 PM
--- NOTE | 2025-03-06 08:23 | Hospitalist Progress Note ---
Date of Service March 06, 2025 Assessment & Plan (1) Small bowel obstruction: Plan: Per previous hospitalist w/ addendum: Pt is a 59 yo female from [facility] with past medical history significant for severe intellectual disability, autism, epilepsy, recurrent MDD, OCD, mood disorder, history of SIADH, CKD stage III, GERD, sensorineural hearing loss of both ears, lesion of right lower liver, fecal and urinary incontinence, left nephrolithiasis, excessive salivation, osteoarthritis admitted for nausea and vomiting secondary to small bowel obstruction. Patient was also noted to have acute cystitis. Patient is underwent stent exchange, cystoscopy and stone ablation yesterday #Acute complicated cystitis Recently had left nephroureteral stent placement for kidney stones and had Pseudomonas UTI Transitioned to zosyn for possible aspiration. Cultures are growing Pseudomonas again with broad sensitivity Initial Blood cultures are negative ID consulted, reviewed recommendations: -On discharge, transition to ciprofloxacin 500 mg PO q12h through 03/07 to complete a total 14 day course of antibiotics, given L ureteral stent in place. Pt hospitalized, see below, and cont. on IV abx. ID reconsulted In summary as of 03/06 Pt initially admitted for SBO, which seemingly resolved on 02/25 Pt then underwent on 02/28/25 Cystoscopy with left Ureteroscopy, Retrograde Pyelogram, Ureteral Dilation, Laser Destruction of Stone, Basket Extraction of Stones, and Exchange of Stent Catheter - Left(Left) with Dr Napoles. Had bilious vomiting and hematemesis evening postop. and X-ray showed recurrent SBO. NG tube placed but Patient has pulled out her NG tube x 2. There has been no further vomiting. Suspect the vomiting caused a possible Hina-Singh tear. There has been no further bleeding or hematemesis. Surgery has been reconsulted. Per previous hospitalist - Patient has been tolerating her meds with a small sip. She was made NPO. WBC normalized previously, then trended up again with WBC up at 20K on 03/01 , pt on Zosyn during this time 03/01 - Temp 38C / 37.9 C 03/02 Ordered CXR, KUB, blood cultx, procalcitonin, repeat urine, MRSA swab. Biofire. Added vanco to zosyn. Transferred pt to PCU. Biofire positive for Rhino/Enterovirus. Urine posit. for carrington so far, previously posit. for Pseudomonas. Blood cultx negat. for 48 hrs SBO seems resolved -> however now abdomen seems distended and pt grunting - will repeat KUB Afebrile, but temp. bit up at 37.5C now WBC down to 10K now, Hgb also down at 7.3, FOBT posit. and GI consulted Discussed w/ RN #hypomagnesemia #hypophosphatemia #hypokalemia continue replacement prn trends labs #Hypoxia Possible aspiration Continue on antibiotics as above reposition as able Currently on room air #Chronic HF with preserved EF monitor for volume overload #Intellectual disability/, MDD,/OCD/, tardive dyskinesia Nonverbal Continue home medications #Epilepsy Continue home p.o. medications when taking p.o. #Small bowel obstruction resolved and now w/ re-occurrence postop No further nausea and vomiting. NG tube is out (she pulled it out twice). General surgery has been reconsulted KUB on 02/28 w/ recurrent SBO/ ileus repeat KUB on 03/01 seems w/ resolving sbo/ileus Had BM w/ miralax 03/05/25 Now abdomen seems distended and pt grunting - obtained KUB - 1. Possible mild small bowel ileus 2. Unchanged left ureteral stent FOBT posit. -> GI consulted (03/06) DVT prophylaxis:Lovenox Disposition Back to [facility] when medically stable Continue med/telemetry Full code. Admission and Anticipated Discharge Date Admission Date: February 22, 2025 Subjective Pt seen in follow up Pt initially admitted for SBO, which seemingly resolved on 02/25 Pt then underwent on 02/28/25 Cystoscopy with left Ureteroscopy, Retrograde Pyelogram, Ureteral Dilation, Laser Destruction of Stone, Basket Extraction of Stones, and Exchange of Stent Catheter - Left(Left) with Dr Napoles. Had bilious vomiting and hematemesis evening postop. and X-ray showed recurrent SBO. NG tube placed but Patient has pulled out her NG tube x 2. There has been no further vomiting. Suspect the vomiting caused a possible Hina-Singh tear. There has been no further bleeding or hematemesis. Surgery has been reconsulted. Per previous hospitalist - Patient has been tolerating her meds with a small sip. She was made NPO. WBC normalized previously, then trended up again with WBC up at 20K, pt on Zosyn during this time Pt also febrile at that time Now afebrile but temp. bit up now again at 37.5C Biofire positive for Rhino/Enterovirus. Urine posit. for carrington so far, previously posit. for Pseudomonas. Blood cultx pending. SBO seems resolved WBC down to 10K now, Hgb also down, fobt posit., GI consulted Pt lying in bed and awake, responsive. she is nonverbal at baseline. at this time appears comfortable. No restraints at this time. +cough Review of Systems Review of Systems: All systems reviewed & are unremarkable except as noted in Subjective Physical Exam Physical Exam: General- adult female WD/WN in NAD, on RA Chronic ill appearance. She is nonverbal. Lungs- decreased breath sounds, + cough with deep inspiration Heart- regular Abdomen- soft, no apparent tenderness Extremities- no LE edema Neuro- nonverbal, awake, moves extremities Skin- warm & dry Results & Data Results & Data Vital Signs (Past 12 Hours) Vital Signs Temp Pulse Pulse Resp BP Pulse Ox O2 Del Method 03/06/25 07:54 37.5 C 80 17 132/83 92 Room Air 03/06/25 05:40 85 03/06/25 03:44 37.5 C 94 H 15 117/72 94 Room Air 03/05/25 22:53 37.0 C 86 14 136/78 95 Room Air Laboratory Results 03/06/25 03/05/25 Range/Units 06:23 21:52 WBC 10.57 (4.8-10.8) K/ul RBC 2.61 L (4.20-5.40) M/uL Hgb 7.3 L (12.0-16.0) g/dl Hct 22.9 L (37.0-47.0) % MCV 87.7 (80.0-100.0) fL MCH 28.0 (25.0-34.0) pg MCHC 31.9 L (32.0-36.0) g/dL RDW Std Deviation 45.2 (36.4-46.3) fL RDW Coeff of Nic 14.1 (11.5-14.5) % Plt Count 353 (130-400) K/uL MPV 10.8 (9.4-12.4) fL Sodium 135 L (136-145) mmol/L Potassium 3.4 L (3.5-5.1) mmol/L Chloride 99 (98-107) mmol/L Carbon Dioxide 30 (21-32) mmol/L Anion Gap 6 (3-11) BUN 13 (6-23) mg/dl Creatinine 0.92 (0.6-1.2) mg/dl Est Cr Clr Drug Dosing 56.9 ml/min eGFR 71.73 BUN/Creatinine Ratio 14.1 (10-20) Glucose 104 H (70-99(Fasting)) mg/dl Calcium 8.0 L (8.6-10.3) mg/dl Phosphorus 3.2 (2.5-4.9) mg/dl Magnesium 1.9 (1.7-2.4) mg/dl Stool Occult Bld Scrn Positive A (Negative) Medications Administered Current Inpatient Medications Bisacodyl (Bisacodyl 10 Mg Supp) 10 mg [place] DAILY PRN PRN Reason: Constipation Stop: 04/01/25 10:55 Last Admin: 03/03/25 12:45 Dose: 10 mg Calcium Carbonate (Calcium Carbonate 1,250 Mg/5 Ml Udc) 1,250 mg PO BID [facility] Stop: 03/28/25 20:59 Last Admin: 03/05/25 20:46 Dose: 1,250 mg Clobazam (Clobazam 5 Mg Tab) 5 mg PO HS [facility] Stop: 03/24/25 20:59 Last Admin: 03/05/25 20:58 Dose: 5 mg Deutetrabenazine (Austedo Xr 36 Mg Tab) 1 each PO DAILY [facility] Stop: 03/24/25 13:59 Last Admin: 03/05/25 09:21 Dose: 1 each Enoxaparin Sodium (Enoxaparin Inj 40 Mg/0.4 Ml Syr) 40 mg SQ Q24H [facility] Stop: 03/24/25 08:59 Last Admin: 02/28/25 17:00 Dose: 40 mg Glycopyrrolate (Glycopyrrolate 1 Mg Tab) 1 mg PO TID [facility] Stop: 03/24/25 08:59 Last Admin: 03/05/25 20:48 Dose: 1 mg Guaifenesin (Guaifenesin Sugar Free 200 Mg/10 Ml Udc) 200 mg PO QID [facility] Stop: 04/03/25 17:14 Last Admin: 03/05/25 20:49 Dose: 200 mg Piperacillin Sod/Tazobactam Sod (Zosyn) 4.5 gm in 100 mls @ 25 mls/hr IV Q8H [facility]; Protocol Stop: 03/07/25 23:59 Last Infusion: 03/06/25 05:26 Dose: Infused Promethazine HCl (Phenergan) 6.25 mg in 50.25 mls @ 201 mls/hr IV Q6H PRN PRN Reason: Nausea And Vomiting Stop: 03/30/25 23:13 Lactated Ringer's (Lr) 1,000 mls @ 80 mls/hr IV .[id number] [facility] Stop: 03/08/25 22:29 Last Admin: 03/05/25 22:58 Dose: 80 mls/hr Pantoprazole Sodium 40 mg/ (Dextrose) 100 mls @ 20 mls/hr IV Q5H [facility] Stop: 04/04/25 22:29 Last Admin: 03/06/25 04:17 Dose: 8 mg/hr, 20 mls/hr Potassium Chloride (K Jordi / Wtr) 10 meq in 100 mls @ 100 mls/hr IV Q1H [facility] Stop: 03/06/25 10:14 Ipratropium [place] (Ipratropium [place] Neb Soln 0.02% 0.5mg/2.5ml Vial) 0.5 mg INH Q4H PRN PRN Reason: SOB WHEEZE Stop: 03/30/25 23:21 Lamotrigine (Lamotrigine 100 Mg Tab) 200 mg PO [facility]; Protocol Stop: 03/24/25 08:59 Last Admin: 03/05/25 20:48 Dose: 200 mg Lamotrigine (Lamotrigine 25 Mg Tab) 50 mg PO [facility]; Protocol Stop: 03/24/25 08:59 Last Admin: 03/05/25 20:51 Dose: 50 mg Levalbuterol HCl (Levalbuterol 1.25 Mg/3 Ml Neb) 1.25 mg NEB Q4H PRN PRN Reason: sob wheeze Stop: 03/30/25 23:10 Levetiracetam (Levetiracetam 500 Mg/5 Ml Vial) 1,500 mg IV Q12H [facility]; Protocol Stop: 03/31/25 08:59 Last Admin: 03/05/25 20:46 Dose: 1,500 mg Nitroglycerin (Nitroglycerin Sl 0.4 Mg/Tab Tab) 0.4 mg SL Q5M PRN PRN Reason: Chest Pain Stop: 03/24/25 00:58 Ondansetron HCl (Ondansetron Inj 2 Mg/Ml 2 Ml Vial) 4 mg IV Q6H PRN PRN Reason: Nausea Stop: 03/24/25 00:58 Last Admin: 03/01/25 00:59 Dose: 4 mg Perphenazine (Perphenazine 2 Mg Tab) 2 mg PO [facility] Stop: 03/24/25 08:59 Last Admin: 03/05/25 20:49 Dose: 2 mg Perphenazine (Perphenazine 4 Mg Tab) 4 mg PO [facility] Stop: 03/24/25 20:59 Last Admin: 03/05/25 20:50 Dose: 4 mg Polyethylene Glycol (Polyethylene (Miralax) 17 Gm Pack) 17 gm PO DAILY [facility] Stop: 04/02/25 17:14 Last Admin: 03/04/25 08:19 Dose: 17 gm Quetiapine Fumarate (Quetiapine Fumarate 200 Mg Tab) 200 mg PO [facility] Stop: 03/24/25 20:59 Last Admin: 03/05/25 20:47 Dose: 200 mg Quetiapine Fumarate (Quetiapine Fumarate 25 Mg Tablet) 50 mg PO [facility] Stop: 03/24/25 08:59 Last Admin: 03/05/25 09:23 Dose: 50 mg Sertraline HCl (Sertraline Hcl 100 Mg Tablet) 100 mg PO QAM [facility] Stop: 03/24/25 08:59 Last Admin: 03/05/25 09:22 Dose: 100 mg
[2025-03-06] MEDS: POTASSIUM CHLORIDE / WTR 10 MEQ/100 ML PLCT IV SCH (11:56)
[2025-03-07 06:38] LABS: Hematocrit (blood only) 22.9 % (37.0-47.0); Hemoglobin 7.3 g/dl (12.0-16.0); Mean Corpuscular Hemoglobin 28.1 pg (25.0-34.0); Mean Corpuscular Volume 88.1 fL (80.0-100.0); Platelet Count 368 K/uL (130-400); RDW Standard Deviation 45.3 fL (36.4-46.3); Red Blood Count 2.60 M/uL (4.20-5.40); White Blood Count 9.99 K/ul (4.8-10.8)
[2025-03-07 07:02] LABS: Anion Gap 7.0 (3-11); Blood Urea Nitrogen 10.0 mg/dl (6-23); Calcium 7.9 mg/dl (8.6-10.3); Carbon Dioxide 31.0 mmol/L (21-32); Chloride 97.0 mmol/L (98-107); Creatinine Clr Calc Pharmacy 57.5 ml/min; Glucose 102.0 mg/dl (70-99(Fasting)); Magnesium 1.8 mg/dl (1.7-2.4); Potassium 3.0 mmol/L (3.5-5.1); Sodium 135.0 mmol/L (136-145)
--- NOTE | 2025-03-07 07:48 | Hospitalist Progress Note ---
Date of Service March 07, 2025 Assessment & Plan (1) Small bowel obstruction: Plan: Per previous hospitalist w/ addendum: Pt is a 59 yo female from [facility] with past medical history significant for severe intellectual disability, autism, epilepsy, recurrent MDD, OCD, mood disorder, history of SIADH, CKD stage III, GERD, sensorineural hearing loss of both ears, lesion of right lower liver, fecal and urinary incontinence, left nephrolithiasis, excessive salivation, osteoarthritis admitted for nausea and vomiting secondary to small bowel obstruction. Patient was also noted to have acute cystitis. Patient is underwent stent exchange, cystoscopy and stone ablation yesterday #Acute complicated cystitis Recently had left nephroureteral stent placement for kidney stones and had Pseudomonas UTI Transitioned to zosyn for possible aspiration. Cultures are growing Pseudomonas again with broad sensitivity Initial Blood cultures are negative ID consulted, reviewed recommendations: -On discharge, transition to ciprofloxacin 500 mg PO q12h through 03/07 to complete a total 14 day course of antibiotics, given L ureteral stent in place. Pt hospitalized, see below, and cont. on IV abx. ID reconsulted In summary as of 03/07 Pt initially admitted for SBO, which seemingly resolved on 02/25 Pt then underwent on 02/28/25 Cystoscopy with left Ureteroscopy, Retrograde Pyelogram, Ureteral Dilation, Laser Destruction of Stone, Basket Extraction of Stones, and Exchange of Stent Catheter - Left(Left) with Dr Napoles. Had bilious vomiting and hematemesis evening postop. and X-ray showed recurrent SBO. NG tube placed but Patient has pulled out her NG tube x 2. There has been no further vomiting. Suspect the vomiting caused a possible Hina-Singh tear. There has been no further bleeding or hematemesis. Surgery has been reconsulted. Per previous hospitalist - Patient has been tolerating her meds with a small sip. She was made NPO. WBC normalized previously, then trended up again with WBC up at 20K on 03/01 , pt on Zosyn during this time 03/01 - Temp 38C / 37.9 C 03/02 Ordered CXR, KUB, blood cultx, procalcitonin, repeat urine, MRSA swab. Biofire. Added vanco to zosyn. Transferred pt to PCU. Biofire positive for Rhino/Enterovirus. Urine posit. for carrington so far, previously posit. for Pseudomonas. Blood cultx from 03/02 negative SBO seems resolved -> pt had a large BM today Afebrile, but temp. bit up at 37.5C yesterday, 37.3C today WBC down to 10K now, Hgb also down at 7.3, FOBT posit. and GI consulted. Hgb stable, no plan for endoscopy at this time. Stool appears brown. Discussed w/ RN Caregiver is to bring reading board to help with communication #hypomagnesemia #hypophosphatemia #hypokalemia continue replacement prn trends labs #Hypoxia Possible aspiration Continue on antibiotics as above reposition as able Currently on room air #Chronic HF with preserved EF monitor for volume overload #Intellectual disability/, MDD,/OCD/, tardive dyskinesia Nonverbal Continue home medications #Epilepsy Continue home p.o. medications when taking p.o. #Small bowel obstruction resolved and then w/ re-occurrence post cystoscopy, now seems resolved Poss. GI bleed No further nausea and vomiting. NG tube is out (she pulled it out twice). General surgery has been reconsulted KUB on 02/28 w/ recurrent SBO/ ileus repeat KUB on 03/01 seems w/ resolving sbo/ileus Had BM w/ miralax 03/05/25 Now abdomen seems distended and pt grunting - obtained KUB - 1. Possible mild small bowel ileus 2. Unchanged left ureteral stent FOBT posit. -> GI consulted (03/06) - no plan for endoscopy, Hgb stable, stool césartamiko resumed DVT prophylaxis:Lovenox Disposition Back to [facility] when medically stable Continue med/telemetry Full code. Admission and Anticipated Discharge Date Admission Date: February 22, 2025 Subjective Pt seen in follow up Pt initially admitted for SBO, which seemingly resolved on 02/25 Pt then underwent on 02/28/25 Cystoscopy with left Ureteroscopy, Retrograde Pyelogram, Ureteral Dilation, Laser Destruction of Stone, Basket Extraction of Stones, and Exchange of Stent Catheter - Left(Left) with Dr Napoles. Had lanre ious vomiting and hematemesis evening postop. and X-ray showed recurrent SBO. NG tube placed but Patient has pulled out her NG tube x 2. There has been no further vomiting. Suspect the vomiting caused a possible Hina-Singh tear. There has been no further bleeding or hematemesis. Surgery has been reconsulted. Per previous hospitalist - Patient has been tolerating her meds with a small sip. She was made NPO. WBC normalized previously, then trended up again with WBC up at 20K, pt on Zosyn during this time Pt also febrile at that time Now afebrile but temp. bit up now again at 37.5C Biofire positive for Rhino/Enterovirus. Urine posit. for carrington so far, previously posit. for Pseudomonas. Blood cultx pending. SBO seems resolved WBC down to 10K now, Hgb also down, fobt posit., GI consulted. Hgb remains stable. Pt is sitting up in bed awake, alert, cooperative, eating. she is nonverbal at baseline. at this time appears comfortable. +cough. Had BM today, per RN césar shankar. Discussed w/ caregiver yesterday what is her "normal", pt is apparently "evening person", likes to rest in the morning. They use reading board for communication and he can bring it in today for us to use. Yesterday we tried to get pt into chair but pt appeared to weak to do that. Will cont. to try again. Review of Systems Review of Systems: All systems reviewed & are unremarkable except as noted in Subjective Physical Exam Physical Exam: General- adult female WD/WN in NAD, on RA Chronic ill appearance. She is nonverbal. Lungs- decreased breath sounds, + cough with deep inspiration Heart- regular Abdomen- soft, no apparent tenderness Extremities- no LE edema Neuro- nonverbal, awake, moves extremities Skin- warm & dry Results & Data Results & Data Vital Signs (Past 12 Hours) Vital Signs Temp Pulse Pulse Resp BP Pulse Ox O2 Del Method 03/07/25 07:23 37.1 C 80 20 148/79 H 91 Room Air 03/07/25 03:08 36.8 C 81 17 136/66 95 Room Air 03/06/25 23:25 85 03/06/25 22:33 36.8 C 81 16 127/77 94 Room Air 03/06/25 20:30 Room Air 03/06/25 19:58 134/80 Laboratory Results 03/07/25 Range/Units 06:20 WBC 9.99 (4.8-10.8) K/ul RBC 2.60 L (4.20-5.40) M/uL Hgb 7.3 L (12.0-16.0) g/dl Hct 22.9 L (37.0-47.0) % MCV 88.1 (80.0-100.0) fL MCH 28.1 (25.0-34.0) pg MCHC 31.9 L (32.0-36.0) g/dL RDW Std Deviation 45.3 (36.4-46.3) fL RDW Coeff of Nic 14.3 (11.5-14.5) % Plt Count 368 (130-400) K/uL MPV 10.4 (9.4-12.4) fL Sodium 135 L (136-145) mmol/L Potassium 3.0 L (3.5-5.1) mmol/L Chloride 97 L (98-107) mmol/L Carbon Dioxide 31 (21-32) mmol/L Anion Gap 7 (3-11) BUN 10 (6-23) mg/dl Creatinine 0.91 (0.6-1.2) mg/dl Est Cr Clr Drug Dosing 57.5 ml/min eGFR 72.67 BUN/Creatinine Ratio 11.0 (10-20) Glucose 102 H (70-99(Fasting)) mg/dl Calcium 7.9 L (8.6-10.3) mg/dl Phosphorus 3.3 (2.5-4.9) mg/dl Magnesium 1.8 (1.7-2.4) mg/dl Medications Administered Current Inpatient Medications Bisacodyl (Bisacodyl 10 Mg Supp) 10 mg [place] DAILY PRN PRN Reason: Constipation Stop: 04/01/25 10:55 Last Admin: 03/03/25 12:45 Dose: 10 mg Calcium Carbonate (Calcium Carbonate 1,250 Mg/5 Ml Udc) 1,250 mg PO BID [facility] Stop: 03/28/25 20:59 Last Admin: 03/06/25 19:37 Dose: 1,250 mg Clobazam (Clobazam 5 Mg Tab) 5 mg PO HS [facility] Stop: 03/24/25 20:59 Last Admin: 03/06/25 20:02 Dose: 5 mg Deutetrabenazine (Austedo Xr 36 Mg Tab) 1 each PO DAILY [facility] Stop: 03/24/25 13:59 Last Admin: 03/06/25 10:28 Dose: 1 each Enoxaparin Sodium (Enoxaparin Inj 40 Mg/0.4 Ml Syr) 40 mg SQ Q24H [facility] Stop: 03/24/25 08:59 Last Admin: 02/28/25 17:00 Dose: 40 mg Glycopyrrolate (Glycopyrrolate 1 Mg Tab) 1 mg PO TID [facility] Stop: 03/24/25 08:59 Last Admin: 03/06/25 19:38 Dose: 1 mg Guaifenesin (Guaifenesin Sugar Free 200 Mg/10 Ml Udc) 200 mg PO QID [facility] Stop: 04/03/25 17:14 Last Admin: 03/06/25 19:43 Dose: 200 mg Piperacillin Sod/Tazobactam Sod (Zosyn) 4.5 gm in 100 mls @ 25 mls/hr IV Q8H [facility]; Protocol Stop: 03/07/25 23:59 Last Infusion: 03/07/25 06:09 Dose: Infused Promethazine HCl (Phenergan) 6.25 mg in 50.25 mls @ 201 mls/hr IV Q6H PRN PRN Reason: Nausea And Vomiting Stop: 03/30/25 23:13 Pantoprazole Sodium 40 mg/ (Dextrose) 100 mls @ 20 mls/hr IV Q5H [facility] Stop: 04/04/25 22:29 Last Admin: 03/07/25 05:40 Dose: 8 mg/hr, 20 mls/hr Potassium Chloride (K Jordi / Wtr) 10 meq in 100 mls @ 100 mls/hr IV Q1H [facility] Stop: 03/07/25 09:44 Ipratropium [place] (Ipratropium [place] Neb Soln 0.02% 0.5mg/2.5ml Vial) 0.5 mg INH Q4H PRN PRN Reason: SOB WHEEZE Stop: 03/30/25 23:21 Lamotrigine (Lamotrigine 100 Mg Tab) 200 mg PO [facility]; Protocol Stop: 03/24/25 08:59 Last Admin: 03/06/25 19:43 Dose: 200 mg Lamotrigine (Lamotrigine 25 Mg Tab) 50 mg PO [facility]; Protocol Stop: 03/24/25 08:59 Last Admin: 03/06/25 19:38 Dose: 50 mg Levalbuterol HCl (Levalbuterol 1.25 Mg/3 Ml Neb) 1.25 mg NEB Q4H PRN PRN Reason: sob wheeze Stop: 03/30/25 23:10 Levetiracetam (Levetiracetam 500 Mg/5 Ml Vial) 1,500 mg IV Q12H [facility]; Protocol Stop: 03/31/25 08:59 Last Admin: 03/06/25 19:42 Dose: 1,500 mg Nitroglycerin (Nitroglycerin Sl 0.4 Mg/Tab Tab) 0.4 mg SL Q5M PRN PRN Reason: Chest Pain Stop: 03/24/25 00:58 Ondansetron HCl (Ondansetron Inj 2 Mg/Ml 2 Ml Vial) 4 mg IV Q6H PRN PRN Reason: Nausea Stop: 03/24/25 00:58 Last Admin: 03/01/25 00:59 Dose: 4 mg Perphenazine (Perphenazine 2 Mg Tab) 2 mg PO [facility] Stop: 03/24/25 08:59 Last Admin: 03/06/25 19:41 Dose: 2 mg Perphenazine (Perphenazine 4 Mg Tab) 4 mg PO [facility] Stop: 03/24/25 20:59 Last Admin: 03/06/25 19:42 Dose: 4 mg Polyethylene Glycol (Polyethylene (Miralax) 17 Gm Pack) 17 gm PO DAILY [facility] Stop: 04/02/25 17:14 Last Admin: 03/04/25 08:19 Dose: 17 gm Quetiapine Fumarate (Quetiapine Fumarate 200 Mg Tab) 200 mg PO HS [facility] Stop: 03/24/25 20:59 Last Admin: 03/06/25 19:38 Dose: 200 mg Quetiapine Fumarate (Quetiapine Fumarate 25 Mg Tablet) 50 mg PO QAM [facility] Stop: 03/24/25 08:59 Last Admin: 03/06/25 10:26 Dose: 50 mg Sertraline HCl (Sertraline Hcl 100 Mg Tablet) 100 mg PO QAM [facility] Stop: 03/24/25 08:59 Last Admin: 03/06/25 10:26 Dose: 100 mg
[2025-03-07] MEDS: POTASSIUM CHLORIDE / WTR 10 MEQ/100 ML PLCT IV SCH (08:59)
[2025-03-07] MEDS: POTASSIUM CHLORIDE CRTAB 20 MEQ TABCR PO STA (09:00)
[2025-03-07] MEDS: PANTOprazole 40 MG in SYRINGE BID IV SCH (20:12)
[2025-03-08 06:22] LABS: Hematocrit (blood only) 23.3 % (37.0-47.0); Hemoglobin 7.5 g/dl (12.0-16.0); Mean Corpuscular Hemoglobin 28.2 pg (25.0-34.0); Mean Corpuscular Volume 87.6 fL (80.0-100.0); Platelet Count 415 K/uL (130-400); RDW Standard Deviation 47.6 fL (36.4-46.3); Red Blood Count 2.66 M/uL (4.20-5.40); White Blood Count 10.07 K/ul (4.8-10.8)
[2025-03-08 06:45] LABS: Anion Gap 7.0 (3-11); Blood Urea Nitrogen 13.0 mg/dl (6-23); Calcium 8.0 mg/dl (8.6-10.3); Carbon Dioxide 32.0 mmol/L (21-32); Chloride 98.0 mmol/L (98-107); Creatinine Clr Calc Pharmacy 69.9 ml/min; Glucose 97.0 mg/dl (70-99(Fasting)); Magnesium 1.8 mg/dl (1.7-2.4); Potassium 3.4 mmol/L (3.5-5.1); Sodium 137.0 mmol/L (136-145)
[2025-03-08] MEDS: POTASSIUM CHLORIDE CRTAB 20 MEQ TABCR PO STA (08:11)
--- NOTE | 2025-03-08 14:10 | Hospitalist Progress Note ---
Date of Service March 08, 2025 Assessment & Plan (1) Small bowel obstruction: Plan: Per previous hospitalist w/ addendum: Pt is a 59 yo female from [facility] with past medical history significant for severe intellectual disability, autism, epilepsy, recurrent MDD, OCD, mood disorder, history of SIADH, CKD stage III, GERD, sensorineural hearing loss of both ears, lesion of right lower liver, fecal and urinary incontinence, left nephrolithiasis, excessive salivation, osteoarthritis admitted for nausea and vomiting secondary to small bowel obstruction. Patient was also noted to have acute cystitis. Patient is underwent stent exchange, cystoscopy and stone ablation yesterday #Acute complicated cystitis Recently had left nephroureteral stent placement for kidney stones and had Pseudomonas UTI Transitioned to zosyn for possible aspiration. Cultures are growing Pseudomonas again with broad sensitivity Initial Blood cultures are negative ID consulted, reviewed recommendations: -On discharge, transition to ciprofloxacin 500 mg PO q12h through 03/07 to complete a total 14 day course of antibiotics, given L ureteral stent in place. Pt hospitalized, see below, and cont. on IV abx. ID reconsulted In summary as of 03/08 Pt initially admitted for SBO, which seemingly resolved on 02/25 Pt then underwent on 02/28/25 Cystoscopy with left Ureteroscopy, Retrograde Pyelogram, Ureteral Dilation, Laser Destruction of Stone, Basket Extraction of Stones, and Exchange of Stent Catheter - Left(Left) with Dr Napoles. Had bilious vomiting and hematemesis evening postop. and X-ray showed recurrent SBO. NG tube placed but Patient has pulled out her NG tube x 2. There has been no further vomiting. Suspect the vomiting caused a possible Hina-Singh tear. There has been no further bleeding or hematemesis. Surgery has been reconsulted. Per previous hospitalist - Patient has been tolerating her meds with a small sip. She was made NPO. WBC normalized previously, then trended up again with WBC up at 20K on 03/01 , pt on Zosyn during this time 03/01 - Temp 38C / 37.9 C 03/02 Ordered CXR, KUB, blood cultx, procalcitonin, repeat urine, MRSA swab. Biofire. Added vanco to zosyn. Transferred pt to PCU. Biofire positive for Rhino/Enterovirus. Urine posit. for carrington so far, previously posit. for Pseudomonas. Blood cultx from 03/02 negative SBO seems resolved -> pt had a large BM yesterday Afebrile now WBC down to 10K now, Hgb also down at 7.5, FOBT posit. and GI consulted. Hgb stable, no plan for endoscopy at this time. Stool appears brown. Discussed w/ RN Caregiver is to bring reading board to help with communication #hypomagnesemia #hypophosphatemia #hypokalemia continue replacement prn trends labs #Hypoxia Possible aspiration Continue on antibiotics as above reposition as able Currently on room air #Chronic HF with preserved EF monitor for volume overload #Intellectual disability/, MDD,/OCD/, tardive dyskinesia Nonverbal Continue home medications #Epilepsy Continue home p.o. medications when taking p.o. #Small bowel obstruction resolved and then w/ re-occurrence post cystoscopy, now seems resolved Poss. GI bleed No further nausea and vomiting. NG tube is out (she pulled it out twice). General surgery has been reconsulted KUB on 02/28 w/ recurrent SBO/ ileus repeat KUB on 03/01 seems w/ resolving sbo/ileus Had BM w/ miralax 03/05/25 Now abdomen seems distended and pt grunting - obtained KUB - 1. Possible mild small bowel ileus 2. Unchanged left ureteral stent FOBT posit. -> GI consulted (03/06) - no plan for endoscopy, Hgb stable, stool brown, lovenox resumed DVT prophylaxis:Lovenox Disposition Back to [facility] when medically stable Continue med/telemetry Full code. Admission and Anticipated Discharge Date Admission Date: February 22, 2025 Subjective Pt seen in follow up Pt initially admitted for SBO, which seemingly resolved on 02/25 Pt then underwent on 02/28/25 Cystoscopy with left Ureteroscopy, Retrograde Pyelogram, Ureteral Dilation, Laser Destruction of Stone, Basket Extraction of Stones, and Exchange of Stent Catheter - Left(Left) with Dr Napoles. Had bilious vomiting and hematemesis evening postop. and X-ray showed recurrent SBO. NG tube placed but Patient has pulled out her NG tube x 2. There has been no further vomiting. Suspect the vomiting caused a possible Hina-Singh tear. There has been no further bleeding or hematemesis. Surgery has been reconsulted. Per previous hospitalist - Patient has been tolerating her meds with a small sip. She was made NPO. WBC normalized previously, then trended up again with WBC up at 20K, pt on Zosyn during this time Pt also febrile at that time Now afebrile but temp. bit up now again at 37.5C Biofire positive for Rhino/Enterovirus. Urine posit. for carrington so far, previously posit. for Pseudomonas. Blood cultx pending. SBO seems resolved WBC down to 10K now, Hgb also down, fobt posit., GI consulted. Hgb remains stable. Pt is sitting up in bed awake, alert, cooperative. she is nonverbal at baseline. at this time appears comfortable. +cough. Had BM yesterday, per RN césar shankar. Discussed w/ caregiver what is her "normal", pt is apparently "evening person", likes to rest in the morning. They use reading board for communication and he can bring it in for us to use. PT/OT ordered, pt needed a lot of assist to get in chair. Review of Systems Review of Systems: All systems reviewed & are unremarkable except as noted in Subjective Physical Exam Physical Exam: General- adult female WD/WN in NAD, on RA Chronic ill appearance. She is nonverbal. Lungs- decreased breath sounds, + cough with deep inspiration Heart- regular Abdomen- soft, no apparent tenderness Extremities- no LE edema Neuro- nonverbal, awake, moves extremities Skin- warm & dry Results & Data Results & Data Vital Signs (Past 12 Hours) Vital Signs Temp Pulse Pulse Resp BP BP Pulse Ox 03/08/25 10:33 36.7 C 93 H 20 131/54 L 94 03/08/25 08:00 03/08/25 08:00 82 03/08/25 07:11 36.8 C 83 20 145/80 H 91 03/08/25 02:49 36.7 C 74 18 143/84 H 94 O2 Del Method 03/08/25 10:33 Room Air 03/08/25 08:00 Room Air 03/08/25 08:00 03/08/25 07:11 Room Air 03/08/25 02:49 Room Air Laboratory Results 03/08/25 Range/Units 05:57 WBC 10.07 (4.8-10.8) K/ul RBC 2.66 L (4.20-5.40) M/uL Hgb 7.5 L (12.0-16.0) g/dl Hct 23.3 L (37.0-47.0) % MCV 87.6 (80.0-100.0) fL MCH 28.2 (25.0-34.0) pg MCHC 32.2 (32.0-36.0) g/dL RDW Std Deviation 47.6 H (36.4-46.3) fL RDW Coeff of Nic 14.6 H (11.5-14.5) % Plt Count 415 H (130-400) K/uL MPV 10.3 (9.4-12.4) fL Sodium 137 (136-145) mmol/L Potassium 3.4 L (3.5-5.1) mmol/L Chloride 98 (98-107) mmol/L Carbon Dioxide 32 (21-32) mmol/L Anion Gap 7 (3-11) BUN 13 (6-23) mg/dl Creatinine 0.84 (0.6-1.2) mg/dl Est Cr Clr Drug Dosing 69.9 ml/min eGFR 80.00 BUN/Creatinine Ratio 15.5 (10-20) Glucose 97 (70-99(Fasting)) mg/dl Calcium 8.0 L (8.6-10.3) mg/dl Phosphorus 3.2 (2.5-4.9) mg/dl Magnesium 1.8 (1.7-2.4) mg/dl Medications Administered Current Inpatient Medications Bisacodyl (Bisacodyl 10 Mg Supp) 10 mg ID DAILY PRN PRN Reason: Constipation Stop: 04/01/25 10:55 Last Admin: 03/03/25 12:45 Dose: 10 mg Calcium Carbonate (Calcium Carbonate 1,250 Mg/5 Ml Udc) 1,250 mg PO BID SWAPNA Stop: 03/28/25 20:59 Last Admin: 03/08/25 08:11 Dose: 1,250 mg Clobazam (Clobazam 5 Mg Tab) 5 mg PO HS SWAPNA Stop: 03/24/25 20:59 Last Admin: 03/07/25 20:32 Dose: 5 mg Deutetrabenazine (Austedo Xr 36 Mg Tab) 1 each PO DAILY SWAPNA Stop: 03/24/25 13:59 Last Admin: 03/08/25 08:18 Dose: 1 each Enoxaparin Sodium (Enoxaparin Inj 40 Mg/0.4 Ml Syr) 40 mg SQ Q24H SWAPNA Stop: 03/24/25 08:59 Last Admin: 03/08/25 08:15 Dose: 40 mg Glycopyrrolate (Glycopyrrolate 1 Mg Tab) 1 mg PO TID [facility] Stop: 03/24/25 08:59 Last Admin: 03/08/25 08:14 Dose: 1 mg Guaifenesin (Guaifenesin Sugar Free 200 Mg/10 Ml Udc) 200 mg PO QID [facility] Stop: 04/03/25 17:14 Last Admin: 03/08/25 08:14 Dose: 200 mg Promethazine HCl (Phenergan) 6.25 mg in 50.25 mls @ 201 mls/hr IV Q6H PRN PRN Reason: Nausea And Vomiting Stop: 03/30/25 23:13 Pantoprazole Sodium (Protonix) 40 mg in 10 mls @ 5 mls/min IV Q12H SWAPNA Stop: 04/06/25 20:59 Last Admin: 03/08/25 08:17 Dose: 5 mls/min Ipratropium [place] (Ipratropium [place] Neb Soln 0.02% 0.5mg/2.5ml Vial) 0.5 mg INH Q4H PRN PRN Reason: SOB WHEEZE Stop: 03/30/25 23:21 Lamotrigine (Lamotrigine 100 Mg Tab) 200 mg PO [facility]; Protocol Stop: 03/24/25 08:59 Last Admin: 03/08/25 08:22 Dose: 200 mg Lamotrigine (Lamotrigine 25 Mg Tab) 50 mg PO [facility]; Protocol Stop: 03/24/25 08:59 Last Admin: 03/08/25 08:23 Dose: 50 mg Levalbuterol HCl (Levalbuterol 1.25 Mg/3 Ml Neb) 1.25 mg NEB Q4H PRN PRN Reason: sob wheeze Stop: 03/30/25 23:10 Levetiracetam (Levetiracetam 500 Mg/5 Ml Vial) 1,500 mg IV Q12H SWAPNA; Protocol Stop: 03/31/25 08:59 Last Admin: 03/08/25 08:20 Dose: 1,500 mg Nitroglycerin (Nitroglycerin Sl 0.4 Mg/Tab Tab) 0.4 mg SL Q5M PRN PRN Reason: Chest Pain Stop: 03/24/25 00:58 Ondansetron HCl (Ondansetron Inj 2 Mg/Ml 2 Ml Vial) 4 mg IV Q6H PRN PRN Reason: Nausea Stop: 03/24/25 00:58 Last Admin: 03/01/25 00:59 Dose: 4 mg Perphenazine (Perphenazine 2 Mg Tab) 2 mg PO [facility] Stop: 03/24/25 08:59 Last Admin: 03/08/25 08:23 Dose: 2 mg Perphenazine (Perphenazine 4 Mg Tab) 4 mg PO [facility] Stop: 03/24/25 20:59 Last Admin: 03/07/25 20:20 Dose: 4 mg Polyethylene Glycol (Polyethylene (Miralax) 17 Gm Pack) 17 gm PO DAILY [facility] Stop: 04/02/25 17:14 Last Admin: 03/04/25 08:19 Dose: 17 gm Quetiapine Fumarate (Quetiapine Fumarate 200 Mg Tab) 200 mg PO [facility] Stop: 03/24/25 20:59 Last Admin: 03/07/25 20:18 Dose: 200 mg Quetiapine Fumarate (Quetiapine Fumarate 25 Mg Tablet) 50 mg PO [facility] Stop: 03/24/25 08:59 Last Admin: 03/08/25 08:13 Dose: 50 mg Sertraline HCl (Sertraline Hcl 100 Mg Tablet) 100 mg PO QAM [facility] Stop: 03/24/25 08:59 Last Admin: 03/08/25 08:23 Dose: 100 mg
[2025-03-08 19:02] LABS: Source KIDNEY STONE
[2025-03-09 07:01] LABS: Hematocrit (blood only) 21.7 % (37.0-47.0); Hemoglobin 7.0 g/dl (12.0-16.0); Mean Corpuscular Hemoglobin 28.1 pg (25.0-34.0); Mean Corpuscular Volume 87.1 fL (80.0-100.0); Platelet Count 427 K/uL (130-400); RDW Standard Deviation 47.5 fL (36.4-46.3); Red Blood Count 2.49 M/uL (4.20-5.40); White Blood Count 11.14 K/ul (4.8-10.8)
[2025-03-09 07:20] LABS: Anion Gap 5.0 (3-11); Blood Urea Nitrogen 13.0 mg/dl (6-23); Calcium 7.9 mg/dl (8.6-10.3); Carbon Dioxide 33.0 mmol/L (21-32); Chloride 100.0 mmol/L (98-107); Creatinine Clr Calc Pharmacy 66.8 ml/min; Glucose 95.0 mg/dl (70-99(Fasting)); Magnesium 1.8 mg/dl (1.7-2.4); Potassium 3.7 mmol/L (3.5-5.1); Sodium 138.0 mmol/L (136-145)
--- NOTE | 2025-03-09 09:17 | CT Scan Report ---
EXAM: CT abd pelvis wo con CLINICAL HISTORY: Nephrolithiasis, left ureteral stent. TECHNIQUE: Non-contrast CT of the abdomen and pelvis was performed, with the following protocol: axial images, and reconstructed coronal and sagittal images. No intravenous contrast was administered. One of the following dose reduction techniques was utilized for this exam: Automated exposure control, adjustment of the mA and/or kV according to patient size, and use of iterative reconstruction. COMPARISON: Comparison is made with previous CT dated 02/21/2025. FINDINGS: Lung bases show bilateral mild pleural effusion. Interval new. Abdomen: Liver: Enlarged liver occupying the left upper quadrant. No focal lesions, cysts, or masses were identified on non-contrast basis. Gallbladder and Biliary System: The gallbladder is normal in size and shape. No wall thickening, pericholecystic fluid, or gallstones were identified. Pancreas: Diffuse fatty atrophy of pancreas (stable). No pancreatic masses or calcifications were noted. Spleen: Normal in size, shape, and density. No splenic lesions or masses were identified on non-contrast basis. Kidneys and Adrenal Glands: Unchanged right renal lower pole calculus measuring 4.9 mm. No hydronephrosis. There is new of the left kidney with a heterogenous hyperdensity in the subcapsular/pericapsular region near the upper and mid pole compressing the renal parenchyma with mean attenuation of 36 HU (suspicious of subcapsular hematoma). There is mild left perinephric stranding with mild free fluid in the left flank region and the left paracolic gutter. Unchanged multiple tiny concretions/calculi in the left renal lower pole. Left DJ stent is in place with proximal and noted in the left renal pelvis as well as lower and is noted within the empty urinary bladder, which has a Alcantara's catheter in place. Adrenal glands are unremarkable. Pelvis: Pelvic viscera appear unremarkable in noncontrast study. Peritoneal and Retroperitoneal Structures: No lymphadenopathy was noted. Bowel: The visualized bowel loops are normal in caliber and appearance. No evidence of bowel obstruction or wall thickening. Bones and Soft Tissues: Lumbar spondylodegenerative changes. Heterogenous appearance of right femoral head with subchondral cystic lucencies and sclerosis (suggest further workup for AVN). IMPRESSION: 1. There is a new enlargement of the left kidney with a new hyperdensity in the subcapsular/pericapsular region, suggesting subcapsular hematoma with suspected renal tissue compression suspicious of page kidney. 2. Advised clinical and post-contrast CT correlation. 3. Lung bases show bilateral mild pleural effusion. Interval new. 4. There is mild left perinephric stranding with mild free fluid in the left flank region and the left paracolic gutter. 5. Unchanged multiple tiny concretions/calculi in the left renal lower pole. 6. Left DJ stent is in place with proximal and noted in the left renal pelvis as well as lower and is noted within the empty urinary bladder, which hasa Alcantara's catheter in place. 7. Unchanged right renal lower pole calculus measuring 4.9 mm. No hydronephrosis. 8. Total resolution of the dilatation of the small bowel loops noted in the prior CT study Electronically signed by Evangelist Delatorre 03-09-2025 09:17 AM
--- NOTE | 2025-03-09 12:53 | Urology Progress Note ---
Date of Service March 09, 2025 Assessment & Plan (1) Nephrolithiasis: (2) Ureteral stent present: (3) Renal hematoma: Plan Pt underwent 02/28/25 Cystoscopy with left Ureteroscopy, Retrograde Pyelogram, Ureteral Dilation, Laser Destruction of Stone, Basket Extraction of Stones, and Exchange of Stent Catheter with Dr Napoles. Has remained inpatient for management of SBO, Anemia, complicated UTI. Underwent follow-up CT abd pelvis today. There appears to be a small left saunders bcapsular hematoma. The left ureteral stent is in place. She is afebrile with stable vitals at present Labs today - WBCs 11.14, Hemoglobin 7.0, Creatinine 0.88 She was treated for Pseudomonas UTI with Vanco and Zosyn No further intervention at this time. Will plan to maintain the left ureteral stent. Continue supportive care. Continue to trend labs, monitor H&H, transfuse as felt necessary per primary team. Urology will follow, please contact us with any questions/concerns. Plan and imaging reviewed with Dr. Napoles. Admission and Anticipated Discharge Date Admission Date: February 22, 2025 Subjective Pt seen at bedside today. Awake and resting in bed. NAD. Alcantara draining clear yellow urine. Review of Systems Constitutional: as per Subjective / HPI Genitourinary: as per Subjective / HPI Physical Exam Constitutional: no acute distress Respiratory: no respiratory distress and no labored breathing Neurologic: awake Genitourinary: Alcantara intact draining clear yellow urine Results & Data Vital Signs (Past 12 Hours) Vital Signs Temp Pulse Resp BP Pulse Ox O2 Del Method 03/09/25 11:15 36.8 C 87 18 153/77 H 94 Room Air 03/09/25 08:14 36.7 C 91 H 18 175/83 H 94 Room Air 03/09/25 08:00 Room Air 03/09/25 02:29 36.9 C 94 H 18 138/74 94 Room Air PG Care Time/CCT Total # of Minutes Spent Total Time Spent with Patient: Total time spent is greater than 50% in coordination of care (as documented) at patient's floor/unit and/or counseling patient: Coding Level of Care Code 52071 SUB INP/OBS CARE 2/35MIN Diagnoses Nephrolithiasis N20.0 Ureteral stent present Z96.0 Renal hematoma S37.019A
--- NOTE | 2025-03-09 17:21 | Hospitalist Progress Note ---
Date of Service March 09, 2025 Assessment & Plan (1) Small bowel obstruction: Plan: Pt is a 59 yo female from [facility] with past medical history significant for severe intellectual disability, autism, epilepsy, recurrent MDD, OCD, mood disorder, history of SIADH, CKD stage III, GERD, sensorineural hearing loss of both ears, lesion of right lower liver, fecal and urinary incontinence, left nephrolithiasis, excessive salivation, osteoarthritis admitted for nausea and vomiting secondary to small bowel obstruction. Patient was also noted to have acute cystitis. Patient is underwent stent exchange, cystoscopy and stone ablation as above #Acute complicated cystitis Recently had left nephroureteral stent placement for kidney stones and had Pseudomonas UTI Transitioned to zosyn for possible aspiration. Cultures are growing Pseudomonas again with broad sensitivity Initial Blood cultures are negative ID consulted, reviewed recommendations: -On discharge, transition to ciprofloxacin 500 mg PO q12h through 03/07 to complete a total 14 day course of antibiotics, given L ureteral stent in place. Pt hospitalized, see below, and cont. on IV abx. ID reconsulted In summary as of 03/08 Pt initially admitted for SBO, which seemingly resolved on 02/25 Pt then underwent on 02/28/25 Cystoscopy with left Ureteroscopy, Retrograde Pyelogram, Ureteral Dilation, Laser Destruction of Stone, Basket Extraction of Stones, and Exchange of Stent Catheter - Left(Left) with Dr Napoles. Had bilious vomiting and hematemesis evening postop. and X-ray showed recurrent SBO. NG tube placed but Patient has pulled out her NG tube x 2. There has been no further vomiting. Suspect the vomiting caused a possible Hina-Singh tear. There has been no further bleeding or hematemesis. Surgery has been reconsulted. Per previous hospitalist - Patient has been tolerating her meds with a small sip. She was made NPO. WBC normalized previously, then trended up again with WBC up at 20K on 03/01 , pt on Zosyn during this time 03/01 - Temp 38C / 37.9 C 03/02 Ordered CXR, KUB, blood cultx, procalcitonin, repeat urine, MRSA swab. Biofire. Added vanco to zosyn. Transferred pt to PCU. Biofire positive for Rhino/Enterovirus. Urine posit. for carrington so far, previously posit. for Pseudomonas. Blood cultx from 03/02 negative SBO seems resolved -> pt had a large BM 2 days ago Afebrile now WBC down to 11.4K now, Hgb also down at 7.0, FOBT positive and GI consulted. Hgb stable, no plan for endoscopy at this time. Stool appears brown. Transfuse for Hgb < 7.0 Discussed w/ RN Caregiver is to bring reading board to help with communication #hypomagnesemia #hypophosphatemia #hypokalemia continue replacement prn trends labs #Hypoxia Possible aspiration Continue on antibiotics as above reposition as able Currently on room air #Chronic HF with preserved EF monitor for volume overload #Intellectual disability/, MDD,/OCD/, tardive dyskinesia Nonverbal Continue home medications #Epilepsy Continue home p.o. medications when taking p.o. #Small bowel obstruction resolved and then w/ re-occurrence post cystoscopy, now seems resolved Poss. GI bleed No further nausea and vomiting. NG tube is out (she pulled it out twice). General surgery has been reconsulted KUB on 02/28 w/ recurrent SBO/ ileus repeat KUB on 03/01 seems w/ resolving sbo/ileus Had BM w/ miralax 03/05/25 Now abdomen seems distended and pt grunting - obtained KUB - 1. Possible mild small bowel ileus 2. Unchanged left ureteral stent FOBT posit. -> GI consulted (03/06) - no plan for endoscopy, Hgb stable, stool brown, lovenox resumed DVT prophylaxis:Lovenox Disposition Back to [facility] when medically stable Continue med/telemetry Full code. A total of 51 minutes spent in care coordination for Ines Admission and Anticipated Discharge Date Admission Date: February 22, 2025 Subjective Chart reviewed. VSS. Pt seen at bedside today. Awake and resting in bed. NAD. Alcantara draining clear yellow urine. Pt underwent 02/28/25 Cystoscopy with left Ureteroscopy, Retrograde Pyelogram, Ureteral Dilation, Laser Destruction of Stone, Basket Extraction of Stones, and Exchange of Stent Catheter with Dr Napoles. Has remained inpatient for management of SBO, Anemia, complicated UTI. Underwent follow-up CT abd pelvis today. There appears to be a small left subcapsular hematoma. The left ureteral stent is in place. CT scan results reviewed with Urology. No further urological interventions currently planned. Hgb continues to drop. No evidence of GI bleeding. Physical Exam Physical Exam: General- adult female seen at bedside. She cannot give a history, essentially nonverbal Eyes- PERRL, EOMI, anicteric Neck- supple, no JVD, no adenopathy, no thyromegaly; carotids +2/2, no bruits appreciated Lungs- clear to auscultation and percussion Heart- regular rhythm; no murmur, no gallop, no rub appreciated Abdomen- normal bowel sounds, soft, nontender, no masses or hepatosplenomegaly Extremities- no pretibial edema, no calf tenderness; peripheral pulses intact Results & Data Results & Data Vital Signs (Past 12 Hours) Vital Signs Temp Pulse Resp BP Pulse Ox O2 Del Method 03/09/25 15:38 37.2 C 87 18 144/72 H 92 Room Air 03/09/25 11:15 36.8 C 87 18 153/77 H 94 Room Air 03/09/25 08:14 36.7 C 91 H 18 175/83 H 94 Room Air 03/09/25 08:00 Room Air Diagnostic Findings Laboratory Results WBC 11.14 K/ul (4.8-10.8) H 03/09/25 06:23 RBC 2.49 M/uL (4.20-5.40) L 03/09/25 06:23 Hgb 7.0 g/dl (12.0-16.0) L 03/09/25 06:23 POC Hgb 13.9 g/dl (12.0-16.0) 02/21/25 20:03 Hct 21.7 % (37.0-47.0) L 03/09/25 06:23 POC Hct 41 % (37-47) 02/21/25 20:03 MCV 87.1 fL (80.0-100.0) 03/09/25 06:23 MCH 28.1 pg (25.0-34.0) 03/09/25 06:23 MCHC 32.3 g/dL (32.0-36.0) 03/09/25 06:23 RDW Std Deviation 47.5 fL (36.4-46.3) H 03/09/25 06:23 RDW Coeff of Nic 14.7 % (11.5-14.5) H 03/09/25 06:23 Plt Count 427 K/uL (130-400) H 03/09/25 06:23 MPV 10.4 fL (9.4-12.4) 03/09/25 06:23 Immature Gran % (Auto) 0.6 % 03/01/25 00:56 Neut % (Auto) 80.4 % 03/01/25 00:56 Lymph % (Auto) 10.1 % 03/01/25 00:56 Edwards % (Auto) 8.7 % 03/01/25 00:56 Eos % (Auto) 0.0 % 03/01/25 00:56 Baso % (Auto) 0.2 % 03/01/25 00:56 Neut # (Auto) 16.26 K/uL (1.40-6.50) H 03/01/25 00:56 Lymph # (Auto) 2.04 K/uL (1.20-3.40) 03/01/25 00:56 Edwards # (Auto) 1.76 K/uL (0.11-0.59) H 03/01/25 00:56 Eos # (Auto) 0.01 K/uL (0.00-0.50) 03/01/25 00:56 Baso # (Auto) 0.04 K/uL (0.00-0.20) 03/01/25 00:56 Immature Gran # (Auto) 0.12 K/uL (0.01-0.20) 03/01/25 00:56 Polychromasia 1+ 02/22/25 04:20 Tear Drop Cells 1+ 02/22/25 04:20 POC Sodium 139 mmol/L (135-144) 02/21/25 20:03 Sodium 138 mmol/L (136-145) 03/09/25 06:23 POC Potassium 3.3 mmol/L (3.3-5.0) 02/21/25 20:03 Potassium 3.7 mmol/L (3.5-5.1) 03/09/25 06:23 POC Chloride 99 mmol/L (101-112) L 02/21/25 20:03 Chloride 100 mmol/L (98-107) 03/09/25 06:23 Carbon Dioxide 33 mmol/L (21-32) H 03/09/25 06:23 POC Total CO2 27 mmol/L (24-31) 02/21/25 20:03 Anion Gap 5 (3-11) 03/09/25 06:23 POC Anion Gap 18.0 mmol/L (16-25) 02/21/25 20:03 POC BUN 28 mg/dl (7-18) H 02/21/25 20:03 BUN 13 mg/dl (6-23) 03/09/25 06:23 Creatinine 0.88 mg/dl (0.6-1.2) 03/09/25 06:23 POC Creatinine 0.7 mg/dl (0.6-1.3) 02/21/25 20:03 Est Cr Clr Drug Dosing 66.8 ml/min 03/09/25 06:23 eGFR 75.66 03/09/25 06:23 BUN/Creatinine Ratio 14.8 (10-20) 03/09/25 06:23 Glucose 95 mg/dl (70-99(Fasting)) 03/09/25 06:23 POC Glucose 107 mg/dl (70-99) H 02/26/25 20:11 POC Glucose (other) 142 mg/dl (70-99) H 02/21/25 20:03 Lactate 0.6 mmol/L (0.4-2.0) 03/02/25 08:05 Calcium 7.9 mg/dl (8.6-10.3) L 03/09/25 06:23 POC Ioniz Calcium Casie 1.10 mmol/l (1.12-1.32) L 02/21/25 20:03 Phosphorus 2.9 mg/dl (2.5-4.9) 03/09/25 06:23 Magnesium 1.8 mg/dl (1.7-2.4) 03/09/25 06:23 Total Bilirubin 0.2 mg/dl (0.2-1.0) 03/01/25 00:56 AST 14 U/L (13-39) 03/01/25 00:56 ALT 15 U/L (7-52) 03/01/25 00:56 Alkaline Phosphatase 110 U/L (34-104) H 03/01/25 00:56 Total Protein 6.3 gm/dl (6.0-8.3) 03/01/25 00:56 Albumin 3.6 gm/dl (3.4-5.0) 03/01/25 00:56 Globulin 2.7 gm/dl (2.5-4.0) 03/01/25 00:56 Albumin/Globulin Ratio 1.3 (0.9-2) 03/01/25 00:56 Lipase 16 U/L (11-82) 03/01/25 00:56 Procalcitonin 0.30 ng/ml (0-0.5) 03/02/25 08:01 Urine Color Yellow 03/02/25 08:10 Urine Appearance Turbid (Clear) A 03/02/25 08:10 Urine pH 7.0 (4.5-7.5) 03/02/25 08:10 Ur Specific [place] 1.016 (1.000-1.030) 03/02/25 08:10 Urine Protein 2+ (Negative) H 03/02/25 08:10 Urine Glucose (UA) Negative (Negative) 03/02/25 08:10 Urine Ketones Negative (Negative) 03/02/25 08:10 Urine Blood 3+ (Negative) H 03/02/25 08:10 Urine Nitrite Negative (Negative) 03/02/25 08:10 Urine Bilirubin Negative (Negative) 03/02/25 08:10 Urine Urobilinogen Negative (Negative) 03/02/25 08:10 Ur Leukocyte Esterase 3+ (Negative) H 03/02/25 08:10 Urine WBC (Auto) >50 /hpf (0-5) H 03/02/25 08:10 Urine RBC (Auto) >20 /hpf (0-2) H 03/02/25 08:10 U Hyaline Cast (Auto) 0-2 /lpf (0-2) 03/02/25 08:10 U Epithel Cells (Auto) 0-2 /hpf (0-2) 03/02/25 08:10 Urine Bacteria (Auto) None Seen (None Seen) 03/02/25 08:10 Hyaline Casts Present /lpf (None Presnt) A 02/21/25 21:10 Urine Mucus Present (None Prsent) A 02/21/25 21:10 Urine Comment 03/02/25 08:10 Nasal Screen MRSA (PCR) Negative (Negative) 03/02/25 08:05 Stool Occult Bld Scrn Positive (Negative) A 03/05/25 21:52 Stone Source KIDNEY STONE 02/28/25 14:29 Stone Weight 0.031 g 02/28/25 14:29 Stone Composition SEE NOTE 02/28/25 14:29 Stone Composition 2 DNR 02/28/25 14:29 Random Vancomycin 20.7 mcg/ml (10-20) H 03/04/25 05:25 Adenovirus (PCR) Not Detected (NotDetected) 03/02/25 Unknown B. pertussis DNA (PCR) Not Detected (NotDetected) 03/02/25 Unknown B.parapertussis DNA PCR Not Detected (NotDetected) 03/02/25 Unknown C. pneumoniae DNA (PCR) Not Detected (NotDetected) 03/02/25 Unknown Coronavirus OC43 (PCR) Not Detected (NotDetected) 03/02/25 Unknown Coronavirus HKU1 (PCR) Not Detected (NotDetected) 03/02/25 Unknown Coronavirus 229E (PCR) Not Detected (NotDetected) 03/02/25 Unknown SARS-CoV-2 (PCR) Not Detected (NotDetected) 03/02/25 Unknown Coronavirus NL63 (PCR) Not Detected (NotDetected) 03/02/25 Unknown Human Metapneumovir PCR Not Detected (NotDetected) 03/02/25 Unknown Influenza Type A (PCR) Not Detected (NotDetected) 03/02/25 Unknown Influenza Type B (PCR) Not Detected (NotDetected) 03/02/25 Unknown M. pneumoniae (PCR) Not Detected (NotDetected) 03/02/25 Unknown Parainfluenza 1 (PCR) Not Detected (NotDetected) 03/02/25 Unknown Parainfluenza 2 (PCR) Not Detected (NotDetected) 03/02/25 Unknown Parainfluenza 3 (PCR) Not Detected (NotDetected) 03/02/25 Unknown Parainfluenza 4 (PCR) Not Detected (NotDetected) 03/02/25 Unknown RSV (PCR) Not Detected (NotDetected) 03/02/25 Unknown Entero/Rhino (PCR) DETECTED (NotDetected) A 03/02/25 Unknown Blood Type A Negative 03/01/25 00:56 Antibody Screen NEGATIVE 03/01/25 00:56 Impressions Retrograde Pyelogram 02/28/25 14:14 FL retrograde includes kub CLINICAL HISTORY: CYSTO COMPARISON STUDY: None FLUOROSCOPY TIME: 51 seconds FLUOROSCOPY IMAGES: 4 EXPOSURE DOSE: 11 mGy FINDINGS: Fluoroscopy was provided for urologic procedure. IMPRESSION: Intraoperative fluoroscopy. ACT 112: Negative or not required by law. Electronically signed by: Filiberto Smith M.D. 02/28/2025 4:13 PM Chest X-Ray 03/02/25 07:42 XR chest 1V portable CLINICAL HISTORY: fever, cough, poss. aspiration COMPARISON STUDY: 02/26/2025 and 02/21/2025 FINDINGS: Single view, rotated, portable erect chest was performed. When compared with the prior studies, the pulmonary vascular congestion has diminished. Chronic obscuration of the left lateral diaphragm and costophrenic angle is redemonstrated without interval change. Streaky opacities in the medial aspect of the left lung base are also stable. There are no new findings that would suggest a recent onset of pneumonia or aspiration. Pronounced degenerative changes are present involving the left shoulder joint. IMPRESSION: Stable exam as described. No acute findings. ACT 112: Negative or not required by law. Electronically signed by: Ines Myrick M.D. 03/02/2025 8:38 AM KUB X-Ray 03/05/25 13:07 2 views of the abdomen were obtained Comparison is made to the prior examination dated 03/02/2025 Findings: There are mildly prominent air-filled small bowel loops, with colonic gas and stool present as well. This may be due to ileus. No definite renal or ureteral calculi are seen. A left ureteral stent is again seen. There is right hip osteoarthritis. There is lumbar scoliosis and degenerative disc disease. Impression: 1. Possible mild small bowel ileus 2. Unchanged left ureteral stent Electronically signed by Landon Caosn 03-05-2025 13:43 PM Abdomen/Pelvis CT 03/09/25 08:00 EXAM: CT abd pelvis wo con CLINICAL HISTORY: Nephrolithiasis, left ureteral stent. TECHNIQUE: Non-contrast CT of the abdomen and pelvis was performed, with the following protocol: axial images, and reconstructed coronal and sagittal images. No intravenous contrast was administered. One of the following dose reduction techniques was utilized for this exam: Automated exposure control, adjustment of the mA and/or kV according to patient size, and use of iterative reconstruction. COMPARISON: Comparison is made with previous CT dated 02/21/2025. FINDINGS: Lung bases show bilateral mild pleural effusion. Interval new. Abdomen: Liver: Enlarged liver occupying the left upper quadrant. No focal lesions, cysts, or masses were identified on non-contrast basis. Gallbladder and Biliary System: The gallbladder is normal in size and shape. No wall thickening, pericholecystic fluid, or gallstones were identified. Pancreas: Diffuse fatty atrophy of pancreas (stable). No pancreatic masses or calcifications were noted. Spleen: Normal in size, shape, and density. No splenic lesions or masses were identified on non-contrast basis. Kidneys and Adrenal Glands: Unchanged right renal lower pole calculus measuring 4.9 mm. No hydronephrosis. There is new of the left kidney with a heterogenous hyperdensity in the subcapsular/pericapsular region near the upper and mid pole compressing the renal parenchyma with mean attenuation of 36 HU (suspicious of subcapsular hematoma). There is mild left perinephric stranding with mild free fluid in the left flank region and the left paracolic gutter. Unchanged multiple tiny concretions/calculi in the left renal lower pole. Left DJ stent is in place with proximal and noted in the left renal pelvis as well as lower and is noted within the empty urinary bladder, which has a Alcantara's catheter in place. Adrenal glands are unremarkable. Pelvis: Pelvic viscera appear unremarkable in noncontrast study. Peritoneal and Retroperitoneal Structures: No lymphadenopathy was noted. Bowel: The visualized bowel loops are normal in caliber and appearance. No evidence of bowel obstruction or wall thickening. Bones and Soft Tissues: Lumbar spondylodegenerative changes. Heterogenous appearance of right femoral head with subchondral cystic lucencies and sclerosis (suggest further workup for AVN). IMPRESSION: 1. There is a new enlargement of the left kidney with a new hyperdensity in the subcapsular/pericapsular region, suggesting subcapsular hematoma with suspected renal tissue compression suspicious of page kidney. 2. Advised clinical and post-contrast CT correlation. 3. Lung bases show bilateral mild pleural effusion. Interval new. 4. There is mild left perinephric stranding with mild free fluid in the left flank region and the left paracolic gutter. 5. Unchanged multiple tiny concretions/calculi in the left renal lower pole. 6. Left DJ stent is in place with proximal and noted in the left renal pelvis as well as lower and is noted within the empty urinary bladder, which hasa Alcantara's catheter in place. 7. Unchanged right renal lower pole calculus measuring 4.9 mm. No hydronephrosis. 8. Total resolution of the dilatation of the small bowel loops noted in the prior CT study Electronically signed by Evangelist Delatorre 03-09-2025 09:17 AM
[2025-03-10 06:22] LABS: Hematocrit (blood only) 25.1 % (37.0-47.0); Hemoglobin 8.2 g/dl (12.0-16.0); Mean Corpuscular Hemoglobin 28.3 pg (25.0-34.0); Mean Corpuscular Volume 86.6 fL (80.0-100.0); Platelet Count 504 K/uL (130-400); RDW Standard Deviation 47.2 fL (36.4-46.3); Red Blood Count 2.90 M/uL (4.20-5.40); White Blood Count 14.00 K/ul (4.8-10.8)
[2025-03-10 06:39] LABS: Anion Gap 6.0 (3-11); Blood Urea Nitrogen 8.0 mg/dl (6-23); Calcium 8.0 mg/dl (8.6-10.3); Carbon Dioxide 31.0 mmol/L (21-32); Chloride 100.0 mmol/L (98-107); Creatinine Clr Calc Pharmacy 79.1 ml/min; Glucose 101.0 mg/dl (70-99(Fasting)); Potassium 3.5 mmol/L (3.5-5.1); Sodium 137.0 mmol/L (136-145)
[2025-03-10 08:01] VITALS: RESP 19
--- NOTE | 2025-03-10 11:01 | Urology Progress Note ---
Date of Service March 10, 2025 Assessment & Plan (1) Nephrolithiasis: (2) Ureteral stent present: (3) Renal hematoma: Plan Pt underwent 02/28/25 Cystoscopy with left Ureteroscopy, Retrograde Pyelogram, Ureteral Dilation, Laser Destruction of Stone, Basket Extraction of Stones, and Exchange of Stent Catheter with Dr Napoles. Has remained inpatient for management of SBO, Anemia, complicated UTI. Repeat CT abd pelvis 03/09 shows small left subcapsular hematoma. The left ure teral stent is in place. She is afebrile, hypertensive at present Labs today - WBCs 14, Hemoglobin 8.2, Creatinine 0.74 No further intervention at this time. Will plan to maintain the left ureteral stent. Continue supportive care and other medication management per primary Continue to trend labs, monitor H&H, transfuse as felt necessary per primary team. Urology will follow peripherally, please contact us with any questions/concerns. Urology will arrange outpatient follow-up once patient is discharged Plan reviewed with Dr. Napoles. Admission and Anticipated Discharge Date Admission Date: February 22, 2025 Subjective Pt seen at bedside today. Awake and resting in bed. NAD. Alcantara draining clear yellow urine. Review of Systems Constitutional: as per Subjective / HPI Genitourinary: as per Subjective / HPI Physical Exam Constitutional: no acute distress Respiratory: no respiratory distress and no labored breathing Neurologic: awake Genitourinary: Alcantara intact draining clear yellow urine Results & Data Vital Signs (Past 12 Hours) Vital Signs Temp Pulse Pulse Resp BP BP Pulse Ox 03/10/25 08:00 37.2 C 91 H 19 153/80 H 91 03/10/25 07:00 85 03/10/25 02:40 36.9 C 86 18 158/75 H 91 O2 Del Method 03/10/25 08:00 Room Air 03/10/25 07:00 03/10/25 02:40 Room Air PG Care Time/CCT Total # of Minutes Spent Total Time Spent with Patient: Total time spent is greater than 50% in coordination of care (as documented) at patient's floor/unit and/or counseling patient: Coding Level of Care Code 13114 SUB INP/OBS CARE 2/35MIN Diagnoses Nephrolithiasis N20.0 Ureteral stent present Z96.0 Renal hematoma S37.019A
[2025-03-10 11:46] VITALS: TEMP 98.2; O2SAT 93
--- NOTE | 2025-03-10 12:16 | Hospitalist Progress Note ---
Date of Service March 10, 2025 Assessment & Plan (1) Small bowel obstruction: Plan: Pt is a 59 yo female from [facility] with past medical history significant for severe intellectual disability, autism, epilepsy, recurrent MDD, OCD, mood disorder, history of SIADH, CKD stage III, GERD, sensorineural hearing loss of both ears, lesion of right lower liver, fecal and urinary incontinence, left nephrolithiasis, excessive salivation, osteoarthritis admitted for nausea and vomiting secondary to small bowel obstruction. Patient was also noted to have acute cystitis. Patient is underwent stent exchange, cystoscopy and stone ablation as above #Acute complicated cystitis Recently had left nephroureteral stent placement for kidney stones and had Pseudomonas UTI Transitioned to zosyn for possible aspiration. Cultures are growing Pseudomonas again with broad sensitivity Initial Blood cultures are negative ID consulted, reviewed recommendations: -On discharge, transition to ciprofloxacin 500 mg PO q12h through 03/07 to complete a total 14 day course of antibiotics, given L ureteral stent in place. Pt hospitalized, see below, and cont. on IV abx. ID reconsulted In summary as of 03/10 Pt initially admitted for SBO, which seemingly resolved on 02/25 Pt then underwent on 02/28/25 Cystoscopy with left Ureteroscopy, Retrograde Pyelogram, Ureteral Dilation, Laser Destruction of Stone, Basket Extraction of Stones, and Exchange of Stent Catheter - Left(Left) with Dr Napoles. Had bilious vomiting and hematemesis evening postop. and X-ray showed recurrent SBO. NG tube placed but Patient has pulled out her NG tube x 2. There has been no further vomiting. Suspect the vomiting caused a possible Hina-Singh tear. There has been no further bleeding or hematemesis. Surgery has been reconsulted. Per previous hospitalist - Patient has been tolerating her meds with a small sip. She was made NPO. WBC normalized previously, then trended up again with WBC up at 20K on 03/01 , pt on Zosyn during this time 03/01 - Temp 38C / 37.9 C 03/02 Ordered CXR, KUB, blood cultx, procalcitonin, repeat urine, MRSA swab. Biofire. Added vanco to zosyn. Transferred pt to PCU. Biofire positive for Rhino/Enterovirus. Urine posit. for carrington so far, previously posit. for Pseudomonas. Blood cultx from 03/02 negative SBO seems resolved -> pt having BMs Afebrile now WBC down to 11.4K now, Hgb improved to 8.2 hgb stable, no plan for endoscopy at this time. Stool appears brown. Transfuse for Hgb < 7.0 Discussed w/ RN Caregiver to bring reading board to help with communication #hypomagnesemia #hypophosphatemia #hypokalemia continue replacement prn trends labs #Hypoxia Possible aspiration Continue on antibiotics as above reposition as able Currently on room air #Chronic HF with preserved EF monitor for volume overload #Intellectual disability/, MDD,/OCD/, tardive dyskinesia Nonverbal Continue home medications #Epilepsy Continue home p.o. medications when taking p.o. #Small bowel obstruction resolved and then w/ re-occurrence post cystoscopy, now seems resolved Poss. GI bleed No further nausea and vomiting. NG tube is out (she pulled it out twice). General surgery has been reconsulted KUB on 02/28 w/ recurrent SBO/ ileus repeat KUB on 03/01 seems w/ resolving sbo/ileus Had BM w/ miralax 03/05/25 Now abdomen seems distended and pt grunting - obtained KUB - 1. Possi ble mild small bowel ileus 2. Unchanged left ureteral stent FOBT posit. -> GI consulted (03/06) - no plan for endoscopy, Hgb stable, stool brown, lovenox resumed DVT prophylaxis:Lovenox Disposition SNF rehab when medically stab;e Advance diet to soft diet as per caregiver at [facility] Continue med/telemetry Full code. Admission and Anticipated Discharge Date Admission Date: February 22, 2025 Subjective Chart data and vital signs reviewed. Vital signs are stable. Hemoglobin improved. No evidence of GI bleeding. Patient is tolerating p.o. Pt seen at bedside today. Awake and resting in bed. Alcantara draining clear yellow urine. Per nursing no vomiting, hematemesis abdominal pain. Review of Systems Review of Systems: Review of systems are unobtainable Physical Exam Physical Exam: General- adult female seen at bedside. She cannot give a history, essentially nonverbal Eyes- PERRL, EOMI, Neck- supple, no JVD, no adenopathy, Lungs- clear to auscultation Heart- regular rhythm; Abdomen- normal bowel sounds, soft, nontender, no masses or hepatosplenomegaly Extremities- no pretibial edema, no calf tenderness; peripheral pulses intact Results & Data Results & Data Vital Signs (Past 12 Hours) Vital Signs Temp Pulse Pulse Resp BP BP Pulse Ox 03/10/25 11:45 36.8 C 79 19 126/73 93 03/10/25 08:00 37.2 C 91 H 19 153/80 H 91 03/10/25 07:00 85 03/10/25 02:40 36.9 C 86 18 158/75 H 91 O2 Del Method 03/10/25 11:45 Room Air 03/10/25 08:00 Room Air 03/10/25 07:00 03/10/25 02:40 Room Air Diagnostic Findings Laboratory Results WBC 14.00 K/ul (4.8-10.8) H 03/10/25 05:28 RBC 2.90 M/uL (4.20-5.40) L 03/10/25 05:28 Hgb 8.2 g/dl (12.0-16.0) L 03/10/25 05:28 POC Hgb 13.9 g/dl (12.0-16.0) 02/21/25 20:03 Hct 25.1 % (37.0-47.0) L 03/10/25 05:28 POC Hct 41 % (37-47) 02/21/25 20:03 MCV 86.6 fL (80.0-100.0) 03/10/25 05:28 MCH 28.3 pg (25.0-34.0) 03/10/25 05:28 MCHC 32.7 g/dL (32.0-36.0) 03/10/25 05:28 RDW Std Deviation 47.2 fL (36.4-46.3) H 03/10/25 05:28 RDW Coeff of Nic 14.8 % (11.5-14.5) H 03/10/25 05:28 Plt Count 504 K/uL (130-400) H 03/10/25 05:28 MPV 10.1 fL (9.4-12.4) 03/10/25 05:28 Immature Gran % (Auto) 0.6 % 03/01/25 00:56 Neut % (Auto) 80.4 % 03/01/25 00:56 Lymph % (Auto) 10.1 % 03/01/25 00:56 Meade % (Auto) 8.7 % 03/01/25 00:56 Eos % (Auto) 0.0 % 03/01/25 00:56 Baso % (Auto) 0.2 % 03/01/25 00:56 Neut # (Auto) 16.26 K/uL (1.40-6.50) H 03/01/25 00:56 Lymph # (Auto) 2.04 K/uL (1.20-3.40) 03/01/25 00:56 [place]ade # (Auto) 1.76 K/uL (0.11-0.59) H 03/01/25 00:56 Eos # (Auto) 0.01 K/uL (0.00-0.50) 03/01/25 00:56 Baso # (Auto) 0.04 K/uL (0.00-0.20) 03/01/25 00:56 Immature Gran # (Auto) 0.12 K/uL (0.01-0.20) 03/01/25 00:56 Polychromasia 1+ 02/22/25 04:20 Tear Drop Cells 1+ 02/22/25 04:20 POC Sodium 139 mmol/L (135-144) 02/21/25 20:03 Sodium 137 mmol/L (136-145) 03/10/25 05:28 POC Potassium 3.3 mmol/L (3.3-5.0) 02/21/25 20:03 Potassium 3.5 mmol/L (3.5-5.1) 03/10/25 05:28 POC Chloride 99 mmol/L (101-112) L 02/21/25 20:03 Chloride 100 mmol/L (98-107) 03/10/25 05:28 Carbon Dioxide 31 mmol/L (21-32) 03/10/25 05:28 POC Total CO2 27 mmol/L (24-31) 02/21/25 20:03 Anion Gap 6 (3-11) 03/10/25 05:28 POC Anion Gap 18.0 mmol/L (16-25) 02/21/25 20:03 POC BUN 28 mg/dl (7-18) H 02/21/25 20:03 BUN 8 mg/dl (6-23) 03/10/25 05:28 Creatinine 0.74 mg/dl (0.6-1.2) 03/10/25 05:28 POC Creatinine 0.7 mg/dl (0.6-1.3) 02/21/25 20:03 Est Cr Clr Drug Dosing 79.1 ml/min 03/10/25 05:28 eGFR 93.14 03/10/25 05:28 BUN/Creatinine Ratio 10.8 (10-20) 03/10/25 05:28 Glucose 101 mg/dl (70-99(Fasting)) H 03/10/25 05:28 POC Glucose 107 mg/dl (70-99) H 02/26/25 20:11 POC Glucose (other) 142 mg/dl (70-99) H 02/21/25 20:03 Lactate 0.6 mmol/L (0.4-2.0) 03/02/25 08:05 Calcium 8.0 mg/dl (8.6-10.3) L 03/10/25 05:28 POC Ioniz Calcium Casie 1.10 mmol/l (1.12-1.32) L 02/21/25 20:03 Phosphorus 2.9 mg/dl (2.5-4.9) 03/09/25 06:23 Magnesium 1.8 mg/dl (1.7-2.4) 03/09/25 06:23 Total Bilirubin 0.2 mg/dl (0.2-1.0) 03/01/25 00:56 AST 14 U/L (13-39) 03/01/25 00:56 ALT 15 U/L (7-52) 03/01/25 00:56 Alkaline Phosphatase 110 U/L (34-104) H 03/01/25 00:56 Total Protein 6.3 gm/dl (6.0-8.3) 03/01/25 00:56 Albumin 3.6 gm/dl (3.4-5.0) 03/01/25 00:56 Globulin 2.7 gm/dl (2.5-4.0) 03/01/25 00:56 Albumin/Globulin Ratio 1.3 (0.9-2) 03/01/25 00:56 Lipase 16 U/L (11-82) 03/01/25 00:56 Procalcitonin 0.30 ng/ml (0-0.5) 03/02/25 08:01 Urine Color Yellow 03/02/25 08:10 Urine Appearance Turbid (Clear) A 03/02/25 08:10 Urine pH 7.0 (4.5-7.5) 03/02/25 08:10 Ur Specific [place] 1.016 (1.000-1.030) 03/02/25 08:10 Urine Protein 2+ (Negative) H 03/02/25 08:10 Urine Glucose (UA) Negative (Negative) 03/02/25 08:10 Urine Ketones Negative (Negative) 03/02/25 08:10 Urine Blood 3+ (Negative) H 03/02/25 08:10 Urine Nitrite Negative (Negative) 03/02/25 08:10 Urine Bilirubin Negative (Negative) 03/02/25 08:10 Urine Urobilinogen Negative (Negative) 03/02/25 08:10 Ur Leukocyte Esterase 3+ (Negative) H 03/02/25 08:10 Urine WBC (Auto) >50 /hpf (0-5) H 03/02/25 08:10 Urine RBC (Auto) >20 /hpf (0-2) H 03/02/25 08:10 U Hyaline Cast (Auto) 0-2 /lpf (0-2) 03/02/25 08:10 U Epithel Cells (Auto) 0-2 /hpf (0-2) 03/02/25 08:10 Urine Bacteria (Auto) None Seen (None Seen) 03/02/25 08:10 Hyaline Casts Present /lpf (None Presnt) A 02/21/25 21:10 Urine Mucus Present (None Prsent) A 02/21/25 21:10 Urine Comment 03/02/25 08:10 Nasal Screen MRSA (PCR) Negative (Negative) 03/02/25 08:05 Stool Occult Bld Scrn Positive (Negative) A 03/05/25 21:52 Stone Source KIDNEY STONE 02/28/25 14:29 Stone Weight 0.031 g 02/28/25 14:29 Stone Composition SEE NOTE 02/28/25 14:29 Stone Composition 2 DNR 02/28/25 14:29 Random Vancomycin 20.7 mcg/ml (10-20) H 03/04/25 05:25 Adenovirus (PCR) Not Detected (NotDetected) 03/02/25 Unknown B. pertussis DNA (PCR) Not Detected (NotDetected) 03/02/25 Unknown B.parapertussis DNA PCR Not Detected (NotDetected) 03/02/25 Unknown C. pneumoniae DNA (PCR) Not Detected (NotDetected) 03/02/25 Unknown Coronavirus OC43 (PCR) Not Detected (NotDetected) 03/02/25 Unknown Coronavirus HKU1 (PCR) Not Detected (NotDetected) 03/02/25 Unknown Coronavirus 229E (PCR) Not Detected (NotDetected) 03/02/25 Unknown SARS-CoV-2 (PCR) Not Detected (NotDetected) 03/02/25 Unknown Coronavirus NL63 (PCR) Not Detected (NotDetected) 03/02/25 Unknown Human Metapneumovir PCR Not Detected (NotDetected) 03/02/25 Unknown Influenza Type A (PCR) Not Detected (NotDetected) 03/02/25 Unknown Influenza Type B (PCR) Not Detected (NotDetected) 03/02/25 Unknown M. pneumoniae (PCR) Not Detected (NotDetected) 03/02/25 Unknown Parainfluenza 1 (PCR) Not Detected (NotDetected) 03/02/25 Unknown Parainfluenza 2 (PCR) Not Detected (NotDetected) 03/02/25 Unknown Parainfluenza 3 (PCR) Not Detected (NotDetected) 03/02/25 Unknown Parainfluenza 4 (PCR) Not Detected (NotDetected) 03/02/25 Unknown RSV (PCR) Not Detected (NotDetected) 03/02/25 Unknown Entero/Rhino (PCR) DETECTED (NotDetected) A 03/02/25 Unknown Blood Type A Negative 03/01/25 00:56 Antibody Screen NEGATIVE 03/01/25 00:56 Impressions Retrograde Pyelogram 02/28/25 14:14 FL retrograde includes kub CLINICAL HISTORY: CYSTO COMPARISON STUDY: None FLUOROSCOPY TIME: 51 seconds FLUOROSCOPY IMAGES: 4 EXPOSURE DOSE: 11 mGy FINDINGS: Fluoroscopy was provided for urologic procedure. IMPRESSION: Intraoperative fluoroscopy. ACT 112: Negative or not required by law. Electronically signed by: Filiberto Smith M.D. 02/28/2025 4:13 PM Chest X-Ray 03/02/25 07:42 XR chest 1V portable CLINICAL HISTORY: fever, cough, poss. aspiration COMPARISON STUDY: 02/26/2025 and 02/21/2025 FINDINGS: Single view, rotated, portable erect chest was performed. When compared with the prior studies, the pulmonary vascular congestion has diminished. Chronic obscuration of the left lateral diaphragm and costophrenic angle is redemonstrated without interval change. Streaky opacities in the medial aspect of the left lung base are also stable. There are no new findings that wou ld suggest a recent onset of pneumonia or aspiration. Pronounced degenerative changes are present involving the left shoulder joint. IMPRESSION: Stable exam as described. No acute findings. ACT 112: Negative or not required by law. Electronically signed by: Ines Myrick M.D. 03/02/2025 8:38 AM KUB X-Ray 03/05/25 13:07 2 views of the abdomen were obtained Comparison is made to the prior examination dated 03/02/2025 Findings: There are mildly prominent air-filled small bowel loops, with colonic gas and stool present as well. This may be due to ileus. No definite renal or ureteral calculi are seen. A left ureteral stent is again seen. There is right hip osteoarthritis. There is lumbar scoliosis and degenerative disc disease. Impression: 1. Possible mild small bowel ileus 2. Unchanged left ureteral stent Electronically signed by Landon Cason 03-05-2025 13:43 PM Abdomen/Pelvis CT 03/09/25 08:00 EXAM: CT abd pelvis wo con CLINICAL HISTORY: Nephrolithiasis, left ureteral stent. TECHNIQUE: Non-contrast CT of the abdomen and pelvis was performed, with the following protocol: axial images, and reconstructed coronal and sagittal images. No intravenous contrast was administered. One of the following dose reduction techniques was utilized for this exam: Automated exposure control, adjustment of the mA and/or kV according to patient size, and use of iterative reconstruction. COMPARISON: Comparison is made with previous CT dated 02/21/2025. FINDINGS: Lung bases show bilateral mild pleural effusion. Interval new. Abdomen: Liver: Enlarged liver occupying the left upper quadrant. No focal lesions, cysts, or masses were identified on non-contrast basis. Gallbladder and Biliary System: The gallbladder is normal in size and shape. No wall thickening, pericholecystic fluid, or gallstones were identified. Pancreas: Diffuse fatty atrophy of pancreas (stable). No pancreatic masses or calcifications were noted. Spleen: Normal in size, shape, and density. No splenic lesions or masses were identified on non-contrast basis. Kidneys and Adrenal Glands: Unchanged right renal lower pole calculus measuring 4.9 mm. No hydronephrosis. There is new of the left kidney with a heterogenous hyperdensity in the subcapsular/pericapsular region near the upper and mid pole compressing the renal parenchyma with mean attenuation of 36 HU (suspicious of subcapsular hematoma). There is mild left perinephric stranding with mild free fluid in the left flank region and the left paracolic gutter. Unchanged multiple tiny concretions/calculi in the left renal lower pole. Left DJ stent is in place with proximal and noted in the left renal pelvis as well as lower and is noted within the empty urinary bladder, which has a Alcantara's catheter in place. Adrenal glands are unremarkable. Pelvis: Pelvic viscera appear unremarkable in noncontrast study. Peritoneal and Retroperitoneal Structures: No lymphadenopathy was noted. Bowel: The visualized bowel loops are normal in caliber and appearance. No evidence of bowel obstruction or wall thickening. Bones and Soft Tissues: Lumbar spondylodegenerative changes. Heterogenous appearance of right femoral head with subchondral cystic lucencies and sclerosis (suggest further workup for AVN). IMPRESSION: 1. There is a new enlargement of the left kidney with a new hyperdensity in the subcapsular/pericapsular region, suggesting subcapsular hematoma with suspected renal tissue compression suspicious of page kidney. 2. Advised clinical and post-contrast CT correlation. 3. Lung bases show bilateral mild pleural effusion. Interval new. 4. There is mild left perinephric stranding with mild free fluid in the left flank region and the left paracolic gutter. 5. Unchanged multiple tiny concretions/calculi in the left renal lower pole. 6. Left DJ stent is in place with proximal and noted in the left renal pelvis as well as lower and is noted within the empty urinary bladder, which hasa Alcantara's catheter in place. 7. Unchanged right renal lower pole calculus measuring 4.9 mm. No hydronephrosis. 8. Total resolution of the dilatation of the small bowel loops noted in the prior CT study Electronically signed by Evangelist Delatorre 03-09-2025 09:17 AM
--- NOTE | 2025-03-10 13:57 | Discharge Summary ---
Discharge Summary Date of Service March 10, 2025 Principal Dx & Hospital Course #1 = Principal Diagnosis (1) Small bowel obstruction: Notes For Next Care Provider Medication Changes From Visit No changes Admission HPI Per Admitting Provider 59-year-old female from [facility] with past medical history significant for severe intellectual disability, autism, epilepsy, recurrent MDD, OCD, mood disorder, history of SIADH, CKD stage III, GERD, sensorineural hearing loss of both ears, lesion of right lower liver, fecal and urinary incontinence, left nephrolithiasis, excessive salivation, osteoarthritis was brought in because patient was having lot of nausea and vomiting today. Patient was supposed to go for procedure for kidney stone removal but then she started to have nausea and vomiting today. Ureteral stent still in place as per the caregiver. As nausea and vomiting not getting better she was brought to the hospital today. As per the caregiver she had a small amount of diarrhea twice today. Patient seems uncomfortable. In the ER she was hypoxic requiring oxygen. Patient somewhat restless. Today caregiver noted some cough. Afebrile. Patient usually walks with a walker but last 6-month her ambulatory status declined as per the caregiver. Usually she is on soft diet. Her CAT scan came back as small bowel obstruction. UA is positive for UTI. Past medical history. As mentioned above Past surgical history. EGD with endoscopic ultrasound. Social history. No smoking. No alcohol no drug use. Family history. Mother had cancer. Seizures. Discharge Exam General- adult female seen at bedside. She cannot give a history, essentially n onverbal Eyes- PERRL, EOMI, Neck- supple, no JVD, no adenopathy, Lungs- clear to auscultation Heart- regular rhythm; Abdomen- normal bowel sounds, soft, nontender, no masses or hepatosplenomegaly Extremities- no pretibial edema, no calf tenderness; peripheral pulses intact Updated Medication List Medication Instructions Recorded Confirmed Type acetaminophen 500 mg tablet 500 mg PO QAM chronic pain 12/15/24 02/21/25 History aloe vera 1 applic topical Q1H PRN Sunburn 12/15/24 02/21/25 History aluminum-mag hydroxide-simethicone 10 ml PO DIRECTED PRN 12/15/24 02/21/25 History 400 mg-400 mg-40 mg/5 mL oral susp Indigestion (Maalox Maximum Strength) bisacodyl 5 mg tablet,delayed 10 mg PO Q3D PRN Constipation 12/15/24 02/21/25 History release (Dulcolax (bisacodyl)) chlorhexidine gluconate 0.12 % 1 applic buccal TID chronic 12/15/24 02/21/25 History mouthwash gingivitis clobazam 10 mg tablet (Onfi) 5 mg PO HS 12/15/24 02/21/25 History deutetrabenazine 36 mg 36 mg PO DAILY 12/15/24 02/21/25 History tablet,extended release 24 hr (Austedo XR) docusate sodium 100 mg capsule 100 mg PO AMHS 12/15/24 02/21/25 History famotidine 40 mg tablet (Pepcid) 40 mg PO DAILY 12/15/24 02/21/25 History glycopyrrolate 1 mg tablet 1 mg PO TID excessive drooling 12/15/24 02/21/25 History (Robinul) hydrocortisone 1 % topical cream 1 applic topical TID PRN Rash 12/15/24 02/21/25 History lamotrigine 100 mg tablet 50 mg PO AMHS 12/15/24 02/21/25 History lamotrigine 200 mg tablet 200 mg PO AMHS 12/15/24 02/21/25 History (Lamictal) levetiracetam 1,000 mg tablet 1,000 mg PO BID 12/15/24 02/21/25 History levetiracetam 500 mg tablet 500 mg PO BID 12/15/24 02/21/25 History (Keppra) loperamide 2 mg capsule (Imodium 2 mg PO DIRECTED PRN Loose Stool 12/15/24 02/21/25 History A-D) multivitamin 1 tab PO QAM 12/15/24 02/21/25 History perphenazine 2 mg tablet 2 mg PO AMHS 12/15/24 02/21/25 History perphenazine 4 mg tablet 4 mg PO HS 12/15/24 02/21/25 History phosphorated carbohydrate oral 30 ml PO DIRECTED PRN Nausea 12/15/24 02/21/25 History solution (Emetrol oral solution) polyethylene glycol 3350 17 17 g PO QAM 12/15/24 02/21/25 History gram/dose oral powder (Miralax) quetiapine 200 mg tablet (Seroquel) 200 mg PO HS 12/15/24 02/21/25 History quetiapine 50 mg tablet (Seroquel) 50 mg PO QAM 12/15/24 02/21/25 History sertraline 100 mg tablet (Zoloft) 100 mg PO QAM 12/15/24 02/21/25 History cholecalciferol (vitamin D3) 125 125 mcg PO QAM #30 tabs 12/24/24 02/21/25 Rx mcg (5,000 unit) tablet ferrous sulfate 325 mg (65 mg 325 mg PO BIDM #60 tabs 12/24/24 02/21/25 Rx iron) tablet,delayed release calcium polycarbophil 625 mg 625 mg PO QAM 01/05/25 02/21/25 History tablet (FiberCon) neomycin-bacitracn Zn-polymyxn 3.5 1 applic topical BID PRN abrasion 01/05/25 02/21/25 History mg-400 unit-5,000 unit top oint until resolved pkt (Triple Antibiotic) acetaminophen 500 mg tablet 1,000 mg PO Q4H PRN elevated 02/09/25 02/21/25 History temp/headache/mild pain fluoride (sodium) 1.1 % dental 1 applic dental BID 02/09/25 02/21/25 History cream (SF 5000 Plus) calcium 500 mg (as 1 tab PO QAM 02/21/25 02/21/25 History carbonate)-vitamin D3 5 mcg (200 unit) tablet dextromethorphan-guaifenesin 10 5 ml PO Q4 PRN Cough 02/21/25 02/21/25 History mg-200 mg/5 mL oral liquid nystatin 100,000 unit/gram topical 1 applic topical HS 02/21/25 02/21/25 History cream Hospital Stay Data Consultations 02/21/25 22:56 ED Decision to Admit Stat 02/22/25 00:59 Consult General Surgery Routine 02/24/25 16:02 Consult Infectious Diseases Routine 02/25/25 16:16 Consult Urology Routine 03/02/25 07:45 Consult General Surgery Routine 03/03/25 17:12 Consult Infectious Diseases Routine 03/06/25 08:00 Consult Gastroenterology Routine Procedures Performed Operation Date: 02/28/25 13:00 Actual Procedures p Cystoscopy, Ureteronephroscopy, Retrograde Pyelogram with Ureteral Dilation, Laser Destruction and Basket Extraction of Stones, (Left) - Dilip Napoles DO s Exchange of Stent Catheter - Left(Left) - Dilip Napoles DO Diagnostic Imagining Performed 02/21/25 19:35 CT abd pelvis IV con only Stat 02/28/25 14:14 FL retrograde includes kub Routine 03/09/25 08:00 CT abd pelvis wo con Routine Pending Results Patient Have Any Pending Studies at Discharge: No Discharge Instructions Given to Patient (Per Discharging Provider) Check CBC and BMP within 3 days Continue PT and OT Follow-up with urology Total Time Total Time Spent Total Time Spent (In Minutes): A total of 60 minutes spent in discharge planning Course Course Hospital course: Ines was admitted to a med surg floor. Pt is a 59 yo female from [facility] with past medical history significant for severe intellectual disability, autism, epilepsy, recurrent MDD, OCD, mood disorder, history of SIADH, CKD stage III, GERD, sensorineural hearing loss of both ears, lesion of right lower liver, fecal and urinary incontinence, left nephrolithiasis, excessive salivation, osteoarthritis admitted for nausea and vomiting secondary to small bowel obstruction. Patient was also noted to have acute cystitis. #Acute complicated cystitis Recently had left nephroureteral stent placement for kidney stones and had Pseudomonas UTI Transitioned to zosyn for possible aspiration. Cultures are growing Pseudomonas again with broad sensitivity Initial Blood cultures are negative ID consulted, reviewed recommendations: -On discharge, transition to ciprofloxacin 500 mg PO q12h through 03/07 to complete a total 14 day course of antibiotics, given L ureteral stent in place. Pt hospitalized, see below, and cont. on IV abx. ID reconsulted In summary as of 03/10 Pt initially admitted for SBO, which seemingly resolved on 02/25 Pt then underwent on 02/28/25 Cystoscopy with left Ureteroscopy, Retrograde Pyelogram, Ureteral Dilation, Laser Destruction of Stone, Basket Extraction of Stones, and Exchange of Stent Catheter - Left(Left) with Dr Napoles. Had bilious vomiting and hematemesis evening postop. and X-ray showed recurrent SBO. NG tube placed but Patient has pulled out her NG tube x 2. There has been no further vomiting. Suspect the vomiting caused a possible Hina-Singh tear. There has been no further bleeding or hematemesis. Surgery has been reconsulted. Per previous hospitalist - Patient has been tolerating her meds with a small sip. She was made NPO. WBC normalized previously, then trended up again with WBC up at 20K on 03/01 , pt on Zosyn during this time 03/01 - Temp 38C / 37.9 C 03/02 Ordered CXR, KUB, blood cultx, procalcitonin, repeat urine, MRSA swab. Biofire. Added vanco to zosyn. Transferred pt to PCU. Biofire positive for Rhino/Enterovirus. Urine posit. for carrington so far, previously posit. for Pseudomonas. Blood cultx from 03/02 negative SBO seems resolved -> pt having BMs Afebrile now WBC down to 11.4K now, Hgb improved to 8.2 hgb stable, no plan for endoscopy at this time. Stool appears brown. Transfuse for Hgb < 7.0 Discussed w/ RN Caregiver to bring reading board to help with communication #hypomagnesemia #hypophosphatemia #hypokalemia continue replacement prn trends labs #Hypoxia Possible aspiration Continue on antibiotics as above reposition as able Currently on room air #Chronic HF with preserved EF monitor for volume overload #Intellectual disability/, MDD,/OCD/, tardive dyskinesia Nonverbal Continue home medications #Epilepsy Continue home p.o. medications when taking p.o. #Small bowel obstruction resolved and then w/ re-occurrence post cystoscopy, now seems resolved Poss. GI bleed No further nausea and vomiting. NG tube is out (she pulled it out twice). General surgery has been reconsulted KUB on 02/28 w/ recurrent SBO/ ileus repeat KUB on 03/01 seems w/ resolving sbo/ileus Had BM w/ miralax 03/05/25 Now abdomen seems distended and pt grunting - obtained KUB - 1. Possible mild small bowel ileus 2. Unchanged left ureteral stent FOBT posit. -> GI consulted (03/06) - no plan for endoscopy, Hgb stable, stool brown, lovenox resumed DVT prophylaxis:Lovenox Disposition SNF rehab when medically stab;e Advance diet to soft diet as per caregiver at [facility] Continue med/telemetry Full code. Pt's diet was advanced to a soft easy to chew diet as before her admission. Vital signs were stable. Patient was deemed stable for discharge to [facility] for continuing rate rehab before returning to [facility]. Administered Medications Bisacodyl (Bisacodyl 10 Mg Supp) 10 mg SD DAILY PRN PRN Reason: Constipation Stop: 04/01/25 10:55 Last Admin: 03/03/25 12:45 Dose: 10 mg Documented By: ES Calcium Carbonate (Calcium Carbonate 1,250 Mg/5 Ml Udc) 1,250 mg PO BID SWAPNA Stop: 03/28/25 20:59 Last Admin: 03/10/25 10:02 Dose: Not Given Documented By: Admin: 03/09/25 20:29 Dose: Not Given Documented By: Admin: 03/09/25 08:35 Dose: 1,250 mg Documented By: Admin: 03/08/25 21:09 Dose: Not Given Documented By: Admin: 03/08/25 08:11 Dose: 1,250 mg Documented By: rmt Admin: 03/07/25 20:18 Dose: 1,250 mg Documented By: Admin: 03/07/25 07:42 Dose: 1,250 mg Documented By: Admin: 03/06/25 19:37 Dose: 1,250 mg Documented By: Admin: 03/06/25 10:27 Dose: 1,250 mg Documented By: Admin: 03/05/25 20:46 Dose: 1,250 mg Documented By: Admin: 03/05/25 09:21 Dose: 1,250 mg Documented By: Admin: 03/04/25 21:10 Dose: 1,250 mg Documented By: Admin: 03/04/25 09:10 Dose: Not Given Documented By: Admin: 03/03/25 20:22 Dose: 1,250 mg Documented By: Admin: 03/03/25 09:01 Dose: 1,250 mg Documented By: Admin: 03/02/25 20:52 Dose: 1,250 mg Documented By: Admin: 03/02/25 09:32 Dose: 1,250 mg Documented By: Admin: 03/01/25 21:23 Dose: 1,250 mg Documented By: Admin: 03/01/25 08:16 Dose: 1,250 mg Documented By: Admin: 02/28/25 20:32 Dose: 1,250 mg Documented By: Admin: 02/28/25 16:59 Dose: 1,250 mg Documented By: Admin: 02/27/25 21:01 Dose: 1,250 mg Documented By: Admin: 02/27/25 09:20 Dose: Not Given Documented By: AMS(2) Admin: 02/26/25 21:22 Dose: Not Given Documented By: NITHIN Clobazam (Clobazam 5 Mg Tab) 5 mg PO HS [facility] Stop: 03/24/25 20:59 Last Admin: 03/09/25 20:30 Dose: Not Given Documented By: Admin: 03/08/25 21:11 Dose: Not Given Documented By: Admin: 03/07/25 20:32 Dose: 5 mg Documented By: Admin: 03/06/25 20:02 Dose: 5 mg Documented By: Admin: 03/05/25 20:58 Dose: 5 mg Documented By: Admin: 03/04/25 21:16 Dose: 5 mg Documented By: Admin: 03/03/25 21:04 Dose: Not Given Documented By: Admin: 03/02/25 20:53 Dose: 5 mg Documented By: Admin: 03/01/25 21:23 Dose: 5 mg Documented By: Admin: 02/28/25 20:31 Dose: 5 mg Documented By: Admin: 02/27/25 21:01 Dose: 5 mg Documented By: Admin: 02/26/25 21:11 Dose: 5 mg Documented By: Admin: 02/25/25 21:15 Dose: 5 mg Documented By: Admin: 02/24/25 20:50 Dose: 5 mg Documented By: [id number] Admin: 02/23/25 21:13 Dose: 5 mg Documented By: Admin: 02/22/25 20:40 Dose: 5 mg Documented By: SANTO Deutetrabenazine (Austedo Xr 36 Mg Tab) 1 each PO DAILY SWAPNA Stop: 03/24/25 13:59 Last Admin: 03/10/25 09:00 Dose: 1 each Documented By: Admin: 03/09/25 08:35 Dose: 1 each Documented By: Admin: 03/08/25 08:18 Dose: 1 each Documented By: [email or web address] Admin: 03/07/25 07:48 Dose: 1 each Documented By: Admin: 03/06/25 10:28 Dose: 1 each Documented By: Admin: 03/05/25 09:21 Dose: 1 each Documented By: Admin: 03/04/25 08:16 Dose: 1 each Documented By: Admin: 03/03/25 09:01 Dose: 1 each Documented By: Admin: 03/02/25 09:31 Dose: 1 each Documented By: Admin: 03/01/25 08:49 Dose: 1 each Documented By: Admin: 02/28/25 17:02 Dose: 1 each Documented By: Admin: 02/27/25 10:38 Dose: 1 each Documented By: AMS(2) Admin: 02/26/25 08:41 Dose: 1 each Documented By: Admin: 02/25/25 08:26 Dose: 1 each Documented By: Admin: 02/24/25 08:17 Dose: 1 each Documented By: Admin: 02/23/25 08:55 Dose: 1 each Documented By: Admin: 02/22/25 14:11 Dose: 1 each Documented By: BRIAN Enoxaparin Sodium (Enoxaparin Inj 40 Mg/0.4 Ml Syr) 40 mg SQ Q24H SWAPNA Stop: 03/24/25 08:59 Last Admin: 03/10/25 09:00 Dose: 40 mg Documented By: Admin: 03/09/25 08:35 Dose: 40 mg Documented By: Admin: 03/08/25 08:15 Dose: 40 mg Documented By: rmt Admin: 03/07/25 07:46 Dose: 40 mg Documented By: Admin: 02/28/25 17:00 Dose: 40 mg Documented By: Admin: 02/27/25 09:23 Dose: 40 mg Documented By: AMS(2) Admin: 02/26/25 08:45 Dose: 40 mg Documented By: Admin: 02/25/25 08:28 Dose: 40 mg Documented By: Admin: 02/24/25 08:17 Dose: 40 mg Documented By: Admin: 02/23/25 08:55 Dose: 40 mg Documented By: Admin: 02/22/25 08:05 Dose: 40 mg Documented By: PAT Glycopyrrolate (Glycopyrrolate 1 Mg Tab) 1 mg PO TID SWAPNA Stop: 03/24/25 08:59 Last Admin: 03/10/25 08:59 Dose: 1 mg Documented By: Admin: 03/09/25 20:30 Dose: Not Given Documented By: Admin: 03/09/25 14:33 Dose: 1 mg Documented By: Admin: 03/09/25 08:34 Dose: 1 mg Documented By: Admin: 03/08/25 21:11 Dose: Not Given Documented By: Admin: 03/08/25 14:17 Dose: 1 mg Documented By: Admin: 03/08/25 08:14 Dose: 1 mg Documented By: rmt Admin: 03/07/25 20:19 Dose: 1 mg Documented By: Admin: 03/07/25 14:21 Dose: Not Given Documented By: Admin: 03/07/25 07:42 Dose: 1 mg Documented By: Admin: 03/06/25 19:38 Dose: 1 mg Documented By: Admin: 03/06/25 13:30 Dose: 1 mg Documented By: Admin: 03/06/25 11:56 Dose: 1 mg Documented By: Admin: 03/05/25 20:48 Dose: 1 mg Documented By: Admin: 03/05/25 14:13 Dose: 1 mg Documented By: Admin: 03/05/25 09:22 Dose: 1 mg Documented By: Admin: 03/04/25 21:31 Dose: 1 mg Documented By: Admin: 03/04/25 13:56 Dose: 1 mg Documented By: Admin: 03/04/25 08:12 Dose: 1 mg Documented By: Admin: 03/03/25 20:23 Dose: 1 mg Documented By: Admin: 03/03/25 12:49 Dose: 1 mg Documented By: Admin: 03/03/25 09:03 Dose: 1 mg Documented By: Admin: 03/02/25 20:52 Dose: 1 mg Documented By: Admin: 03/02/25 14:23 Dose: 1 mg Documented By: Admin: 03/02/25 09:31 Dose: 1 mg Documented By: Admin: 03/01/25 21:23 Dose: 1 mg Documented By: Admin: 03/01/25 14:12 Dose: 1 mg Documented By: Admin: 03/01/25 08:16 Dose: 1 mg Documented By: Admin: 02/28/25 20:34 Dose: 1 mg Documented By: Admin: 02/28/25 17:05 Dose: Not Given Documented By: Admin: 02/28/25 16:58 Dose: 1 mg Documented By: Admin: 02/27/25 21:01 Dose: 1 mg Documented By: Admin: 02/27/25 13:13 Dose: 1 mg Documented By: AMS(2) Admin: 02/27/25 10:36 Dose: 1 mg Documented By: AMS(2) Admin: 02/26/25 20:56 Dose: 1 mg Documented By: Admin: 02/26/25 13:56 Dose: 1 mg Documented By: Admin: 02/26/25 08:45 Dose: 1 mg Documented By: Admin: 02/25/25 21:11 Dose: 1 mg Documented By: Admin: 02/25/25 13:44 Dose: 1 mg Documented By: Admin: 02/25/25 08:28 Dose: 1 mg Documented By: Admin: 02/24/25 20:43 Dose: 1 mg Documented By: [id number] Admin: 02/24/25 15:14 Dose: 1 mg Documented By: Admin: 02/24/25 08:17 Dose: 1 mg Documented By: Admin: 02/23/25 21:09 Dose: 1 mg Documented By: Admin: 02/23/25 13:26 Dose: 1 mg Documented By: Admin: 02/23/25 08:55 Dose: 1 mg Documented By: Admin: 02/22/25 20:14 Dose: 1 mg Documented By: Admin: 02/22/25 15:20 Dose: 1 mg Documented By: HOME OFFICE REPRESENTATIVE Admin: 02/22/25 08:06 Dose: 1 mg Documented By: PAT Guaifenesin (Guaifenesin Sugar Free 200 Mg/10 Ml Udc) 200 mg PO QID SWAPNA Stop: 04/03/25 17:14 Last Admin: 03/10/25 12:44 Dose: Not Given Documented By: Admin: 03/10/25 09:00 Dose: 200 mg Documented By: Admin: 03/09/25 20:30 Dose: Not Given Documented By: Admin: 03/09/25 16:37 Dose: 200 mg Documented By: Admin: 03/09/25 14:33 Dose: 200 mg Documented By: Admin: 03/09/25 08:35 Dose: 200 mg Documented By: Admin: 03/08/25 21:11 Dose: Not Given Documented By: Admin: 03/08/25 18:34 Dose: 200 mg Documented By: Admin: 03/08/25 14:17 Dose: 200 mg Documented By: Admin: 03/08/25 08:14 Dose: 200 mg Documented By: rmt Admin: 03/07/25 20:19 Dose: 200 mg Documented By: Admin: 03/07/25 16:28 Dose: 200 mg Documented By: Admin: 03/07/25 12:39 Dose: 200 mg Documented By: Admin: 03/07/25 07:46 Dose: 200 mg Documented By: Admin: 03/06/25 19:43 Dose: 200 mg Documented By: Admin: 03/06/25 17:03 Dose: 200 mg Documented By: Admin: 03/06/25 13:29 Dose: 200 mg Documented By: Admin: 03/06/25 10:27 Dose: 200 mg Documented By: Admin: 03/05/25 20:49 Dose: 200 mg Documented By: Admin: 03/05/25 16:40 Dose: 200 mg Documented By: Admin: 03/05/25 14:13 Dose: 200 mg Documented By: Admin: 03/05/25 09:22 Dose: 200 mg Documented By: Admin: 03/04/25 21:10 Dose: 200 mg Documented By: Admin: 03/04/25 18:20 Dose: Not Given Documented By: GPF Pantoprazole Sodium (Protonix) 40 mg in 10 mls @ 5 mls/min IV Q12H SWAPNA Stop: 04/06/25 20:59 Last Admin: 03/10/25 08:59 Dose: 5 mls/min Documented By: Admin: 03/09/25 20:36 Dose: 5 mls/min Documented By: Admin: 03/09/25 08:40 Dose: 5 mls/min Documented By: Admin: 03/08/25 20:59 Dose: 5 mls/min Documented By: Admin: 03/08/25 08:17 Dose: 5 mls/min Documented By: manda Admin: 03/07/25 20:12 Dose: 5 mls/min Documented By: ELTON Lamotrigine (Lamotrigine 100 Mg Tab) 200 mg PO AMHS SWAPNA; Protocol Stop: 03/24/25 08:59 Last Admin: 03/10/25 09:01 Dose: 200 mg Documented By: Admin: 03/09/25 20:30 Dose: Not Given Documented By: Admin: 03/09/25 08:36 Dose: 200 mg Documented By: Admin: 03/08/25 21:11 Dose: Not Given Documented By: Admin: 03/08/25 08:22 Dose: 200 mg Documented By: rmt Admin: 03/07/25 20:13 Dose: 200 mg Documented By: Admin: 03/07/25 08:49 Dose: 200 mg Documented By: Admin: 03/06/25 19:43 Dose: 200 mg Documented By: Admin: 03/06/25 10:25 Dose: 200 mg Documented By: Admin: 03/05/25 20:48 Dose: 200 mg Documented By: Admin: 03/05/25 09:22 Dose: 200 mg Documented By: Admin: 03/04/25 21:20 Dose: 200 mg Documented By: Admin: 03/04/25 08:15 Dose: 200 mg Documented By: Admin: 03/03/25 20:23 Dose: 200 mg Documented By: Admin: 03/03/25 09:02 Dose: 200 mg Documented By: Admin: 03/02/25 20:52 Dose: 200 mg Documented By: Admin: 03/02/25 09:32 Dose: 200 mg Documented By: Admin: 03/01/25 21:24 Dose: 200 mg Documented By: Admin: 03/01/25 08:18 Dose: 200 mg Documented By: Admin: 02/28/25 20:33 Dose: 200 mg Documented By: Admin: 02/28/25 17:00 Dose: 200 mg Documented By: Admin: 02/27/25 21:02 Dose: 200 mg Documented By: Admin: 02/27/25 10:36 Dose: 200 mg Documented By: AMS(2) Admin: 02/26/25 20:57 Dose: 200 mg Documented By: Admin: 02/26/25 08:41 Dose: 200 mg Documented By: Admin: 02/25/25 21:13 Dose: 200 mg Documented By: Admin: 02/25/25 08:28 Dose: 200 mg Documented By: Admin: 02/24/25 20:44 Dose: 200 mg Documented By: [id number] Admin: 02/24/25 08:17 Dose: 200 mg Documented By: Admin: 02/23/25 21:09 Dose: 200 mg Documented By: Admin: 02/23/25 08:55 Dose: 200 mg Documented By: Admin: 02/22/25 20:16 Dose: 200 mg Documented By: Admin: 02/22/25 08:06 Dose: 200 mg Documented By: PAT Lamotrigine (Lamotrigine 25 Mg Tab) 50 mg PO [facility]; Protocol Stop: 03/24/25 08:59 Last Admin: 03/10/25 09:02 Dose: 50 mg Documented By: Admin: 03/09/25 20:30 Dose: Not Given Documented By: Admin: 03/09/25 08:34 Dose: 50 mg Documented By: Admin: 03/08/25 21:12 Dose: Not Given Documented By: Admin: 03/08/25 08:23 Dose: 50 mg Documented By: rmt Admin: 03/07/25 20:13 Dose: 50 mg Documented By: Admin: 03/07/25 07:48 Dose: 50 mg Documented By: Admin: 03/06/25 19:38 Dose: 50 mg Documented By: Admin: 03/06/25 10:26 Dose: 50 mg Documented By: Admin: 03/05/25 20:51 Dose: 50 mg Documented By: Admin: 03/05/25 09:22 Dose: 50 mg Documented By: Admin: 03/04/25 21:21 Dose: 50 mg Documented By: Admin: 03/04/25 08:12 Dose: 50 mg Documented By: Admin: 03/03/25 20:26 Dose: 50 mg Documented By: Admin: 03/03/25 09:02 Dose: 50 mg Documented By: Admin: 03/02/25 20:53 Dose: 50 mg Documented By: Admin: 03/02/25 09:33 Dose: 50 mg Documented By: Admin: 03/01/25 21:24 Dose: 50 mg Documented By: Admin: 03/01/25 08:19 Dose: 50 mg Documented By: Admin: 02/28/25 20:33 Dose: 50 mg Documented By: Admin: 02/28/25 17:01 Dose: 50 mg Documented By: Admin: 02/27/25 21:03 Dose: 50 mg Documented By: Admin: 02/27/25 10:37 Dose: 50 mg Documented By: AMS(2) Admin: 02/26/25 21:12 Dose: 50 mg Documented By: Admin: 02/26/25 08:44 Dose: 50 mg Documented By: Admin: 02/25/25 21:13 Dose: 50 mg Documented By: Admin: 02/25/25 08:27 Dose: 50 mg Documented By: Admin: 02/24/25 20:44 Dose: 50 mg Documented By: [id number] Admin: 02/24/25 08:17 Dose: 50 mg Documented By: Admin: 02/23/25 21:09 Dose: 50 mg Documented By: Admin: 02/23/25 08:55 Dose: 50 mg Documented By: Admin: 02/22/25 20:15 Dose: 50 mg Documented By: Admin: 02/22/25 08:05 Dose: 50 mg Documented By: PAT Ondansetron HCl (Ondansetron Inj 2 Mg/Ml 2 Ml Vial) 4 mg IV Q6H PRN PRN Reason: Nausea Stop: 03/24/25 00:58 Last Admin: 03/01/25 00:59 Dose: 4 mg Documented By: JOSE ALBERTO Perphenazine (Perphenazine 2 Mg Tab) 2 mg PO AMHS SWAPNA Stop: 03/24/25 08:59 Last Admin: 03/10/25 09:03 Dose: 2 mg Documented By: Admin: 03/09/25 20:30 Dose: Not Given Documented By: Admin: 03/09/25 08:34 Dose: 2 mg Documented By: Admin: 03/08/25 21:16 Dose: Not Given Documented By: Admin: 03/08/25 08:23 Dose: 2 mg Documented By: rmt Admin: 03/07/25 20:13 Dose: 2 mg Documented By: Admin: 03/07/25 07:49 Dose: 2 mg Documented By: Admin: 03/06/25 19:41 Dose: 2 mg Documented By: Admin: 03/06/25 10:26 Dose: 2 mg Documented By: Admin: 03/05/25 20:49 Dose: 2 mg Documented By: Admin: 03/05/25 09:22 Dose: 2 mg Documented By: Admin: 03/04/25 21:22 Dose: 2 mg Documented By: Admin: 03/04/25 08:17 Dose: 2 mg Documented By: Admin: 03/03/25 20:25 Dose: 2 mg Documented By: Admin: 03/03/25 09:02 Dose: 2 mg Documented By: Admin: 03/02/25 20:52 Dose: 2 mg Documented By: Admin: 03/02/25 09:32 Dose: 2 mg Documented By: Admin: 03/01/25 21:26 Dose: 2 mg Documented By: Admin: 03/01/25 08:18 Dose: 2 mg Documented By: Admin: 02/28/25 20:34 Dose: 2 mg Documented By: Admin: 02/28/25 17:01 Dose: 2 mg Documented By: Admin: 02/27/25 21:03 Dose: 2 mg Documented By: Admin: 02/27/25 10:36 Dose: 2 mg Documented By: AMS(2) Admin: 02/26/25 21:13 Dose: 2 mg Documented By: Admin: 02/26/25 08:44 Dose: 2 mg Documented By: Admin: 02/25/25 21:14 Dose: 2 mg Documented By: Admin: 02/25/25 08:28 Dose: 2 mg Documented By: Admin: 02/24/25 20:59 Dose: 2 mg Documented By: [id number] Admin: 02/24/25 08:17 Dose: 2 mg Documented By: Admin: 02/23/25 21:10 Dose: 2 mg Documented By: Admin: 02/23/25 08:55 Dose: 2 mg Documented By: Admin: 02/22/25 20:15 Dose: 2 mg Documented By: Admin: 02/22/25 08:09 Dose: 2 mg Documented By: PAT Perphenazine (Perphenazine 4 Mg Tab) 4 mg PO HS [facility] Stop: 03/24/25 20:59 Last Admin: 03/09/25 20:30 Dose: Not Given Documented By: Admin: 03/08/25 21:12 Dose: Not Given Documented By: Admin: 03/07/25 20:20 Dose: 4 mg Documented By: Admin: 03/06/25 19:42 Dose: 4 mg Documented By: Admin: 03/05/25 20:50 Dose: 4 mg Documented By: Admin: 03/04/25 21:22 Dose: 4 mg Documented By: Admin: 03/03/25 20:25 Dose: 4 mg Documented By: Admin: 03/02/25 20:53 Dose: 4 mg Documented By: Admin: 03/01/25 21:26 Dose: 4 mg Documented By: Admin: 02/28/25 20:35 Dose: 4 mg Documented By: Admin: 02/27/25 21:02 Dose: 4 mg Documented By: Admin: 02/26/25 20:57 Dose: 4 mg Documented By: Admin: 02/25/25 21:12 Dose: 4 mg Documented By: Admin: 02/24/25 20:44 Dose: 4 mg Documented By: [id number] Admin: 02/23/25 21:09 Dose: 4 mg Documented By: Admin: 02/22/25 20:16 Dose: 4 mg Documented By: SANTO Polyethylene Glycol (Polyethylene (Miralax) 17 Gm Pack) 17 gm PO DAILY SWAPNA Stop: 04/02/25 17:14 Last Admin: 03/04/25 08:19 Dose: 17 gm Documented By: Admin: 03/03/25 18:22 Dose: 17 gm Documented By: LUIS M Quetiapine Fumarate (Quetiapine Fumarate 200 Mg Tab) 200 mg PO HS SWAPNA Stop: 03/24/25 20:59 Last Admin: 03/09/25 20:30 Dose: Not Given Documented By: Admin: 03/08/25 21:12 Dose: Not Given Documented By: Admin: 03/07/25 20:18 Dose: 200 mg Documented By: Admin: 03/06/25 19:38 Dose: 200 mg Documented By: Admin: 03/05/25 20:47 Dose: 200 mg Documented By: Admin: 03/04/25 21:22 Dose: 200 mg Documented By: Admin: 03/03/25 20:22 Dose: 200 mg Documented By: Admin: 03/02/25 20:52 Dose: 200 mg Documented By: Admin: 03/01/25 21:27 Dose: 200 mg Documented By: Admin: 02/28/25 20:32 Dose: 200 mg Documented By: JOSE ALBERTO Admin: 02/27/25 21:01 Dose: 200 mg Documented By: Admin: 02/26/25 20:56 Dose: 200 mg Documented By: Admin: 02/25/25 21:14 Dose: 200 mg Documented By: Admin: 02/24/25 20:46 Dose: 200 mg Documented By: [id number] Admin: 02/23/25 21:09 Dose: 200 mg Documented By: Admin: 02/22/25 20:15 Dose: 200 mg Documented By: SANTO Quetiapine Fumarate (Quetiapine Fumarate 25 Mg Tablet) 50 mg PO QAM SWAPNA Stop: 03/24/25 08:59 Last Admin: 03/10/25 09:02 Dose: 50 mg Documented By: Admin: 03/09/25 08:34 Dose: 50 mg Documented By: Admin: 03/08/25 08:13 Dose: 50 mg Documented By: rmt Admin: 03/07/25 07:49 Dose: 50 mg Documented By: Admin: 03/06/25 10:26 Dose: 50 mg Documented By: Admin: 03/05/25 09:23 Dose: 50 mg Documented By: Admin: 03/04/25 08:16 Dose: 50 mg Documented By: Admin: 03/03/25 09:02 Dose: 50 mg Documented By: Admin: 03/02/25 09:31 Dose: 50 mg Documented By: Admin: 03/01/25 08:16 Dose: 50 mg Documented By: Admin: 02/28/25 17:02 Dose: Not Given Documented By: Admin: 02/27/25 10:37 Dose: 50 mg Documented By: AMS(2) Admin: 02/26/25 09:00 Dose: 50 mg Documented By: Admin: 02/25/25 08:28 Dose: 50 mg Documented By: Admin: 02/24/25 08:17 Dose: 50 mg Documented By: Admin: 02/23/25 08:55 Dose: 50 mg Documented By: Admin: 02/22/25 08:06 Dose: 50 mg Documented By: PAT Sertraline HCl (Sertraline Hcl 100 Mg Tablet) 100 mg PO QAM SWAPNA Stop: 03/24/25 08:59 Last Admin: 03/10/25 09:03 Dose: 100 mg Documented By: Admin: 03/09/25 08:34 Dose: 100 mg Documented By: Admin: 03/08/25 08:23 Dose: 100 mg Documented By: rmt Admin: 03/07/25 07:47 Dose: 100 mg Documented By: Admin: 03/06/25 10:26 Dose: 100 mg Documented By: Admin: 03/05/25 09:22 Dose: 100 mg Documented By: Admin: 03/04/25 08:17 Dose: 100 mg Documented By: Admin: 03/03/25 09:02 Dose: 100 mg Documented By: Admin: 03/02/25 09:33 Dose: 100 mg Documented By: Admin: 03/01/25 08:18 Dose: 100 mg Documented By: Admin: 02/28/25 17:02 Dose: 100 mg Documented By: Admin: 02/27/25 10:36 Dose: 100 mg Documented By: AMS(2) Admin: 02/26/25 08:41 Dose: 100 mg Documented By: Admin: 02/25/25 08:28 Dose: 100 mg Documented By: Admin: 02/24/25 08:17 Dose: 100 mg Documented By: Admin: 02/23/25 08:55 Dose: 100 mg Documented By: Admin: 02/22/25 08:06 Dose: 100 mg Documented By: PAT Discontinued Medications Albuterol (Albut/Ipratrop 3mg/0.5mg Neb 3 Ml Vial) 3 ml NEB NOW STA; Protocol Stop: 02/26/25 19:33 Last Admin: 02/26/25 20:14 Dose: Not Given Documented By: TYREL Bisacodyl (Bisacodyl 10 Mg Supp) 10 mg SD NOW STA Stop: 03/02/25 08:47 Last Admin: 03/02/25 09:38 Dose: 10 mg Documented By: LAKISHA Bisacodyl (Bisacodyl 10 Mg Supp) 10 mg SD NOW STA Stop: 03/02/25 10:57 Last Admin: 03/02/25 11:05 Dose: Not Given Documented By: PK Diatrizoate Meglumine (Diatrizoate Meglumine 30% 100ml Vial) 100 ml INSTIL UD ONE Stop: 02/28/25 14:19 Last Admin: 02/28/25 14:48 Dose: 20 ml Documented By: [id number] Furosemide (Furosemide Inj 20 Mg/2 Ml Vial) 20 mg IV ONE ONE Stop: 02/26/25 21:39 Last Admin: 02/26/25 22:24 Dose: 20 mg Documented By: NITHIN Glycerin (Glycerin Adult 12 Supp/Box Supp) 1 supp SD NOW ONE Stop: 03/02/25 08:55 Last Admin: 03/02/25 09:30 Dose: 1 supp Documented By: LAKISHA Glycerin (Glycerin Adult 12 Supp/Box Supp) 1 supp SD NOW ONE Stop: 03/05/25 14:24 Last Admin: 03/05/25 15:04 Dose: 1 supp Documented By: NIKITA Sodium Chloride (Nss) 1,000 mls @ 999 mls/hr IV .Q1H1M ONE Stop: 02/21/25 20:35 Last Infusion: 02/21/25 21:10 Dose: Infused Documented By: Admin: 02/21/25 19:55 Dose: 999 mls/hr Documented By: NORMA Cefepime HCl (Maxipime 2000mg) 2,000 mg in 20 mls @ 5 mls/min IV NOW STA; Protocol Stop: 02/21/25 22:54 Last Admin: 02/21/25 23:02 Dose: 5 mls/min Documented By: NORMA Sodium Chloride (Nss) 1,000 mls @ 100 mls/hr IV .Q10H SWAPNA Stop: 02/25/25 00:58 Last Infusion: 02/23/25 22:47 Dose: Infused Documented By: Admin: 02/23/25 11:51 Dose: 100 mls/hr Documented By: Infusion: 02/23/25 11:18 Dose: Infused Documented By: Infusion: 02/23/25 10:22 Dose: 100 mls/hr Documented By: Infusion: 02/23/25 08:55 Dose: 0 mls/hr Documented By: Admin: 02/22/25 23:51 Dose: 100 mls/hr Documented By: Infusion: 02/22/25 23:00 Dose: Infused Documented By: Admin: 02/22/25 22:10 Dose: Not Given Documented By: Admin: 02/22/25 13:00 Dose: 100 mls/hr Documented By: Infusion: 02/22/25 11:45 Dose: Infused Documented By: Admin: 02/22/25 01:45 Dose: 100 mls/hr Documented By: LIVIA Acetaminophen (Ofirmev) 1,000 mg in 100 mls @ 400 mls/hr IV Q8H PRN PRN Reason: Pain or Fever Stop: 02/25/25 00:58 Last Infusion: 02/22/25 04:12 Dose: Infused Documented By: Admin: 02/22/25 03:57 Dose: 400 mls/hr Documented By: LIVIA Cefepime HCl (Maxipime 2000mg) 2,000 mg in 20 mls @ 5 mls/min IV Q8H SWAPNA; Protocol Stop: 03/04/25 05:59 Last Admin: 02/26/25 13:56 Dose: 5 mls/min Documented By: Admin: 02/26/25 06:15 Dose: 5 mls/min Documented By: Admin: 02/25/25 21:18 Dose: 5 mls/min Documented By: Admin: 02/25/25 13:50 Dose: 5 mls/min Documented By: Admin: 02/25/25 05:04 Dose: 5 mls/min Documented By: [id number] Admin: 02/24/25 22:16 Dose: 5 mls/min Documented By: Jr Admin: 02/24/25 15:14 Dose: 5 mls/min Documented By: Admin: 02/24/25 05:13 Dose: 5 mls/min Documented By: Admin: 02/23/25 21:13 Dose: 5 mls/min Documented By: Admin: 02/23/25 13:26 Dose: 5 mls/min Documented By: Admin: 02/23/25 05:40 Dose: 5 mls/min Documented By: Admin: 02/22/25 22:09 Dose: 5 mls/min Documented By: Admin: 02/22/25 14:11 Dose: 5 mls/min Documented By: Admin: 02/22/25 05:20 Dose: 5 mls/min Documented By: LIVIA Potassium Chloride (K Jordi / Wtr) 10 meq in 100 mls @ 100 mls/hr IV Q1H SWAPNA Stop: 02/22/25 11:59 Last Infusion: 02/22/25 15:11 Dose: Infused Documented By: Admin: 02/22/25 12:15 Dose: 100 mls/hr Documented By: Infusion: 02/22/25 12:05 Dose: Infused Documented By: Admin: 02/22/25 11:05 Dose: 100 mls/hr Documented By: Infusion: 02/22/25 10:10 Dose: Infused Documented By: Admin: 02/22/25 09:10 Dose: 100 mls/hr Documented By: Infusion: 02/22/25 09:04 Dose: Infused Documented By: Admin: 02/22/25 08:04 Dose: 100 mls/hr Documented By: PAT Magnesium Sulfate/Dextrose (Magnesium Sulfate / D5w) 1 gm in 100 mls @ 50 mls/hr IV ONE ONE Stop: 02/22/25 09:46 Last Infusion: 02/22/25 10:04 Dose: Infused Documented By: Admin: 02/22/25 08:04 Dose: 50 mls/hr Documented By: PAT Metronidazole (Flagyl) 500 mg in 100 mls @ 100 mls/hr IV Q8H SWAPNA; Protocol Stop: 02/24/25 09:29 Last Infusion: 02/24/25 02:45 Dose: Infused Documented By: Admin: 02/24/25 01:29 Dose: 100 mls/hr Documented By: Infusion: 02/23/25 17:45 Dose: Infused Documented By: Admin: 02/23/25 16:45 Dose: 100 mls/hr Documented By: Infusion: 02/23/25 09:55 Dose: Infused Documented By: Admin: 02/23/25 08:55 Dose: 100 mls/hr Documented By: Infusion: 02/23/25 00:57 Dose: Infused Documented By: Admin: 02/22/25 23:51 Dose: 100 mls/hr Documented By: Infusion: 02/22/25 19:20 Dose: Infused Documented By: Admin: 02/22/25 18:01 Dose: 100 mls/hr Documented By: Infusion: 02/22/25 10:50 Dose: Infused Documented By: Admin: 02/22/25 09:47 Dose: 100 mls/hr Documented By: PAT Magnesium Sulfate/Dextrose (Magnesium Sulfate / D5w) 1 gm in 100 mls @ 50 mls/hr IV ONE ONE Stop: 02/25/25 06:34 Last Infusion: 02/25/25 06:46 Dose: Infused Documented By: [id number] Admin: 02/25/25 04:54 Dose: 50 mls/hr Documented By: [id number] Potassium Chloride (K Jordi / Wtr) 10 meq in 100 mls @ 100 mls/hr IV Q1H SWAPNA Stop: 02/25/25 11:14 Last Infusion: 02/25/25 11:58 Dose: Infused Documented By: Admin: 02/25/25 10:47 Dose: 100 mls/hr Documented By: MTJamey Infusion: 02/25/25 10:40 Dose: Infused Documented By: Admin: 02/25/25 09:40 Dose: 100 mls/hr Documented By: Infusion: 02/25/25 09:39 Dose: Infused Documented By: Admin: 02/25/25 08:39 Dose: 100 mls/hr Documented By: MTM Magnesium Sulfate/Dextrose (Magnesium Sulfate / D5w) 1 gm in 100 mls @ 50 mls/hr IV Q2H SWAPNA Stop: 02/25/25 14:14 Last Infusion: 02/25/25 15:32 Dose: Infused Documented By: Admin: 02/25/25 12:45 Dose: 50 mls/hr Documented By: MTJamey Infusion: 02/25/25 12:40 Dose: Infused Documented By: Admin: 02/25/25 10:40 Dose: 50 mls/hr Documented By: Infusion: 02/25/25 10:39 Dose: Infused Documented By: Admin: 02/25/25 08:39 Dose: 50 mls/hr Documented By: MTM Piperacillin Sod/Tazobactam Sod (Zosyn) 4.5 gm in 100 mls @ 25 mls/hr IV Q8H SWAPNA; Protocol Stop: 03/07/25 23:59 Last Infusion: 03/07/25 21:29 Dose: Infused Documented By: Admin: 03/07/25 17:26 Dose: 25 mls/hr Documented By: Infusion: 03/07/25 15:37 Dose: Infused Documented By: Admin: 03/07/25 11:19 Dose: 25 mls/hr Documented By: Infusion: 03/07/25 06:09 Dose: Infused Documented By: Admin: 03/07/25 01:36 Dose: 25 mls/hr Documented By: Infusion: 03/06/25 21:00 Dose: Infused Documented By: Admin: 03/06/25 16:56 Dose: 25 mls/hr Documented By: Infusion: 03/06/25 16:56 Dose: Infused Documented By: Admin: 03/06/25 12:28 Dose: 25 mls/hr Documented By: Infusion: 03/06/25 05:26 Dose: Infused Documented By: Admin: 03/06/25 01:21 Dose: 25 mls/hr Documented By: Infusion: 03/05/25 21:57 Dose: Infused Documented By: Admin: 03/05/25 17:57 Dose: 25 mls/hr Documented By: Infusion: 03/05/25 14:45 Dose: Infused Documented By: Admin: 03/05/25 10:27 Dose: 25 mls/hr Documented By: Infusion: 03/05/25 05:38 Dose: Infused Documented By: Admin: 03/05/25 01:39 Dose: 25 mls/hr Documented By: Infusion: 03/04/25 21:12 Dose: Infused Documented By: Admin: 03/04/25 17:00 Dose: 25 mls/hr Documented By: Infusion: 03/04/25 14:54 Dose: Infused Documented By: Admin: 03/04/25 10:42 Dose: 25 mls/hr Documented By: Infusion: 03/04/25 08:35 Dose: Infused Documented By: Admin: 03/04/25 04:15 Dose: 25 mls/hr Documented By: Infusion: 03/03/25 21:05 Dose: Infused Documented By: Admin: 03/03/25 16:46 Dose: 25 mls/hr Documented By: Infusion: 03/03/25 12:50 Dose: Infused Documented By: Admin: 03/03/25 09:00 Dose: 25 mls/hr Documented By: Infusion: 03/03/25 06:00 Dose: Infused Documented By: Admin: 03/03/25 02:00 Dose: 25 mls/hr Documented By: Infusion: 03/02/25 21:08 Dose: Infused Documented By: Admin: 03/02/25 17:24 Dose: 25 mls/hr Documented By: Infusion: 03/02/25 13:11 Dose: Infused Documented By: Admin: 03/02/25 09:29 Dose: 25 mls/hr Documented By: Infusion: 03/02/25 07:07 Dose: Infused Documented By: Admin: 03/02/25 02:00 Dose: 25 mls/hr Documented By: Infusion: 03/01/25 21:11 Dose: Infused Documented By: Admin: 03/01/25 17:11 Dose: 25 mls/hr Documented By: Infusion: 03/01/25 15:03 Dose: Infused Documented By: Admin: 03/01/25 10:31 Dose: 25 mls/hr Documented By: Infusion: 03/01/25 05:05 Dose: Infused Documented By: Admin: 03/01/25 01:16 Dose: 25 mls/hr Documented By: Infusion: 02/28/25 22:07 Dose: Infused Documented By: Admin: 02/28/25 17:06 Dose: 25 mls/hr Documented By: Infusion: 02/28/25 17:03 Dose: Infused Documented By: Admin: 02/28/25 11:34 Dose: 25 mls/hr Documented By: Infusion: 02/28/25 06:17 Dose: Infused Documented By: Admin: 02/28/25 02:17 Dose: 25 mls/hr Documented By: Infusion: 02/27/25 21:11 Dose: Infused Documented By: Admin: 02/27/25 17:11 Dose: 25 mls/hr Documented By: AMS(2) Infusion: 02/27/25 13:29 Dose: Infused Documented By: AMS(2) Admin: 02/27/25 09:26 Dose: 25 mls/hr Documented By: AMS(2) Infusion: 02/27/25 06:44 Dose: Infused Documented By: JAMandy Admin: 02/27/25 02:44 Dose: 25 mls/hr Documented By: NITHIN Piperacillin Sod/Tazobactam Sod (Zosyn) 4.5 gm in 100 mls @ 200 mls/hr IV 2015 [facility]; Protocol Stop: 02/26/25 20:44 Last Infusion: 02/26/25 21:41 Dose: Infused Documented By: Admin: 02/26/25 21:11 Dose: 200 mls/hr Documented By: NITHIN Promethazine HCl (Phenergan) 6.25 mg in 50.25 mls @ 201 mls/hr IV NOW STA Stop: 02/28/25 23:33 Last Infusion: 02/28/25 23:42 Dose: Infused Documented By: Admin: 02/28/25 23:27 Dose: 201 mls/hr Documented By: MCS Pantoprazole Sodium 80 mg/ (Dextrose) 120 mls @ 480 mls/hr IV ONE STA Stop: 03/01/25 01:05 Last Infusion: 03/01/25 01:25 Dose: Infused Documented By: Admin: 03/01/25 01:10 Dose: 480 mls/hr Documented By: MCS Pantoprazole Sodium (Protonix) 40 mg in 10 mls @ 5 mls/min IV BID SWAPNA Stop: 03/31/25 08:59 Last Admin: 03/05/25 20:46 Dose: 5 mls/min Documented By: Admin: 03/05/25 09:11 Dose: 5 mls/min Documented By: Admin: 03/04/25 21:10 Dose: 5 mls/min Documented By: Admin: 03/04/25 08:17 Dose: 5 mls/min Documented By: Admin: 03/03/25 21:04 Dose: Not Given Documented By: Admin: 03/03/25 09:00 Dose: 5 mls/min Documented By: Admin: 03/02/25 20:50 Dose: 5 mls/min Documented By: Admin: 03/02/25 09:34 Dose: 5 mls/min Documented By: Admin: 03/01/25 21:26 Dose: 5 mls/min Documented By: Admin: 03/01/25 08:16 Dose: 5 mls/min Documented By: MTM Albumin Human (Albumin 25%) 12.5 gm in 50 mls @ 50 mls/hr IV ONE ONE Stop: 03/01/25 02:03 Last Infusion: 03/01/25 02:25 Dose: Infused Documented By: Admin: 03/01/25 01:31 Dose: 50 mls/hr Documented By: MCS Magnesium Sulfate/Dextrose (Magnesium Sulfate / D5w) 1 gm in 100 mls @ 50 mls/hr IV Q2H SWAPNA Stop: 03/01/25 05:59 Last Infusion: 03/01/25 06:27 Dose: Infused Documented By: Admin: 03/01/25 04:38 Dose: 50 mls/hr Documented By: Infusion: 03/01/25 04:31 Dose: Infused Documented By: Admin: 03/01/25 02:31 Dose: 50 mls/hr Documented By: NITHIN Vancomycin HCl 1,500 mg/ (Sodium Chloride) 530 mls @ 200 mls/hr IV ONE ONE Stop: 03/02/25 11:38 Last Infusion: 03/02/25 12:41 Dose: Infused Documented By: Admin: 03/02/25 09:29 Dose: 200 mls/hr Documented By: PK Acetaminophen (Ofirmev) 1,000 mg in 100 mls @ 400 mls/hr IV NOW STA Stop: 03/02/25 08:43 Last Infusion: 03/02/25 09:05 Dose: Infused Documented By: Admin: 03/02/25 08:47 Dose: 400 mls/hr Documented By: MTM Vancomycin HCl (Vancomycin Hcl) 1,000 mg in 270 mls @ 200 mls/hr IV Q12H SWAPNA Stop: 03/04/25 12:00 Last Infusion: 03/04/25 10:51 Dose: Infused Documented By: Admin: 03/04/25 09:10 Dose: 200 mls/hr Documented By: Infusion: 03/03/25 22:42 Dose: Infused Documented By: Admin: 03/03/25 21:18 Dose: 200 mls/hr Documented By: Infusion: 03/03/25 10:45 Dose: Infused Documented By: Admin: 03/03/25 08:59 Dose: 200 mls/hr Documented By: Infusion: 03/02/25 22:28 Dose: Infused Documented By: Admin: 03/02/25 21:07 Dose: 200 mls/hr Documented By: EWA Sodium Chloride (Nss) 500 mls @ 100 mls/hr IV .Q5H ONE Stop: 03/02/25 17:49 Last Infusion: 03/02/25 18:22 Dose: Infused Documented By: Admin: 03/02/25 13:11 Dose: 100 mls/hr Documented By: PK Potassium Chloride (K Jordi / Wtr) 10 meq in 100 mls @ 100 mls/hr IV ONE ONE Stop: 03/03/25 18:08 Last Infusion: 03/03/25 20:15 Dose: Infused Documented By: Admin: 03/03/25 18:22 Dose: 100 mls/hr Documented By: ES Potassium Chloride (K Jordi / Wtr) 10 meq in 100 mls @ 100 mls/hr IV Q1H SWAPNA Stop: 03/04/25 09:29 Last Infusion: 03/04/25 11:51 Dose: Infused Documented By: Admin: 03/04/25 09:48 Dose: 50 mls/hr Documented By: Infusion: 03/04/25 09:48 Dose: Infused Documented By: Admin: 03/04/25 08:15 Dose: 50 mls/hr Documented By: GPF Magnesium Sulfate/Dextrose (Magnesium Sulfate / D5w) 1 gm in 100 mls @ 50 mls/hr IV ONE ONE Stop: 03/04/25 09:18 Last Infusion: 03/04/25 10:22 Dose: Infused Documented By: Admin: 03/04/25 08:16 Dose: 50 mls/hr Documented By: GPF Magnesium Sulfate/Dextrose (Magnesium Sulfate / D5w) 1 gm in 100 mls @ 50 mls/hr IV ONE ONE Stop: 03/04/25 11:55 Last Infusion: 03/04/25 12:35 Dose: Infused Documented By: Admin: 03/04/25 10:42 Dose: 50 mls/hr Documented By: GPF Potassium Chloride (K Jordi / Wtr) 10 meq in 100 mls @ 100 mls/hr IV Q1H SWAPNA Stop: 03/05/25 16:29 Last Infusion: 03/05/25 18:04 Dose: Infused Documented By: Admin: 03/05/25 16:39 Dose: 100 mls/hr Documented By: Infusion: 03/05/25 16:39 Dose: Infused Documented By: Infusion: 03/05/25 15:56 Dose: 100 mls/hr Documented By: Infusion: 03/05/25 15:17 Dose: 0 mls/hr Documented By: Admin: 03/05/25 15:04 Dose: 100 mls/hr Documented By: AMS Sodium Chloride (Nss) 500 mls @ 80 mls/hr IV .Q6H15M ONE Stop: 03/05/25 20:35 Last Infusion: 03/05/25 22:06 Dose: Infused Documented By: Infusion: 03/05/25 15:56 Dose: 80 mls/hr Documented By: Infusion: 03/05/25 15:17 Dose: 0 mls/hr Documented By: Admin: 03/05/25 15:03 Dose: 80 mls/hr Documented By: AMS Lactated Ringer's (Lr) 1,000 mls @ 80 mls/hr IV .[id number] SWAPNA Stop: 03/08/25 22:29 Last Infusion: 03/07/25 00:15 Dose: Infused Documented By: Admin: 03/06/25 11:59 Dose: 80 mls/hr Documented By: Infusion: 03/06/25 11:28 Dose: Infused Documented By: Admin: 03/05/25 22:58 Dose: 80 mls/hr Documented By: TATIANA Pantoprazole Sodium 40 mg/ (Dextrose) 100 mls @ 20 mls/hr IV Q5H SWAPNA Stop: 04/04/25 22:29 Last Infusion: 03/07/25 12:20 Dose: Infused Documented By: Admin: 03/07/25 10:09 Dose: 8 mg/hr, 20 mls/hr Documented By: Infusion: 03/07/25 10:09 Dose: Infused Documented By: Admin: 03/07/25 05:40 Dose: 8 mg/hr, 20 mls/hr Documented By: Infusion: 03/07/25 05:40 Dose: Infused Documented By: Admin: 03/07/25 00:57 Dose: 8 mg/hr, 20 mls/hr Documented By: Infusion: 03/07/25 00:43 Dose: Infused Documented By: Admin: 03/06/25 19:43 Dose: 8 mg/hr, 20 mls/hr Documented By: Infusion: 03/06/25 18:30 Dose: Infused Documented By: Admin: 03/06/25 13:30 Dose: 8 mg/hr, 20 mls/hr Documented By: Infusion: 03/06/25 13:30 Dose: Infused Documented By: Admin: 03/06/25 10:24 Dose: 8 mg/hr, 20 mls/hr Documented By: Infusion: 03/06/25 09:17 Dose: Infused Documented By: Admin: 03/06/25 04:17 Dose: 8 mg/hr, 20 mls/hr Documented By: Infusion: 03/06/25 03:59 Dose: Infused Documented By: Admin: 03/05/25 22:59 Dose: 8 mg/hr, 20 mls/hr Documented By: TATIANA Potassium Chloride (K Jordi / Wtr) 10 meq in 100 mls @ 100 mls/hr IV Q1H SWAPNA Stop: 03/06/25 10:14 Last Infusion: 03/06/25 15:25 Dose: Infused Documented By: Admin: 03/06/25 11:59 Dose: 100 mls/hr Documented By: Infusion: 03/06/25 11:59 Dose: Infused Documented By: Admin: 03/06/25 11:56 Dose: 100 mls/hr Documented By: AMB Potassium Chloride (K Jordi / Wtr) 10 meq in 100 mls @ 100 mls/hr IV Q1H SWAPNA Stop: 03/07/25 09:59 Last Infusion: 03/07/25 11:09 Dose: Infused Documented By: Admin: 03/07/25 10:08 Dose: 100 mls/hr Documented By: Infusion: 03/07/25 09:59 Dose: Infused Documented By: Admin: 03/07/25 08:59 Dose: 100 mls/hr Documented By: KATHY Ioversol (Optiray 320 100ml) 93 ml IV ONCE ONE Stop: 02/21/25 20:48 Last Admin: 02/21/25 20:47 Dose: 93 ml Documented By: DANIEL Ipratropium [place] (Ipratropium [place] Neb Soln 0.02% 0.5mg/2.5ml Vial) 0.5 mg INH NOW STA Stop: 02/28/25 23:12 Last Admin: 02/28/25 23:27 Dose: Not Given Documented By: TYREL Levetiracetam (Levetiracetam 500 Mg/5 Ml Vial) 1,500 mg IV Q12H SWAPNA Stop: 03/24/25 08:59 Last Admin: 02/24/25 08:17 Dose: 1,500 mg Documented By: Admin: 02/23/25 21:09 Dose: 1,500 mg Documented By: Admin: 02/23/25 08:55 Dose: 1,500 mg Documented By: Admin: 02/22/25 20:15 Dose: 1,500 mg Documented By: Admin: 02/22/25 08:07 Dose: 1,500 mg Documented By: PAT Levetiracetam (Levetiracetam 500 Mg Tab) 1,500 mg PO BID SWAPNA Stop: 03/26/25 20:59 Last Admin: 02/28/25 20:33 Dose: 1,500 mg Documented By: JOSE ALBERTO Admin: 02/26/25 20:57 Dose: 1,500 mg Documented By: Admin: 02/26/25 09:00 Dose: 1,500 mg Documented By: Admin: 02/25/25 21:12 Dose: 1,500 mg Documented By: Admin: 02/25/25 08:28 Dose: 1,500 mg Documented By: Admin: 02/24/25 20:43 Dose: 1,500 mg Documented By: [id number] Levetiracetam (Levetiracetam 500 Mg/5 Ml Vial) 1,500 mg IV Q12H SWAPNA Stop: 03/29/25 08:59 Last Admin: 02/28/25 08:37 Dose: 1,500 mg Documented By: Admin: 02/27/25 21:05 Dose: 1,500 mg Documented By: Admin: 02/27/25 10:38 Dose: 1,500 mg Documented By: NIKITA(2) Levetiracetam (Levetiracetam 500 Mg/5 Ml Vial) 1,500 mg IV Q12H SWAPNA; Protocol Stop: 03/31/25 08:59 Last Admin: 03/10/25 08:57 Dose: 1,500 mg Documented By: Admin: 03/09/25 20:35 Dose: 1,500 mg Documented By: Admin: 03/09/25 08:36 Dose: 1,500 mg Documented By: Admin: 03/08/25 20:57 Dose: 1,500 mg Documented By: Admin: 03/08/25 08:20 Dose: 1,500 mg Documented By: rmt Admin: 03/07/25 20:22 Dose: 1,500 mg Documented By: Admin: 03/07/25 07:46 Dose: 1,500 mg Documented By: Admin: 03/06/25 19:42 Dose: 1,500 mg Documented By: Admin: 03/06/25 10:24 Dose: 1,500 mg Documented By: Admin: 03/05/25 20:46 Dose: 1,500 mg Documented By: Admin: 03/05/25 09:11 Dose: 1,500 mg Documented By: Admin: 03/04/25 21:23 Dose: 1,500 mg Documented By: Admin: 03/04/25 08:17 Dose: 1,500 mg Documented By: Admin: 03/03/25 20:27 Dose: 1,500 mg Documented By: Admin: 03/03/25 09:02 Dose: 1,500 mg Documented By: Admin: 03/02/25 20:50 Dose: 1,500 mg Documented By: Admin: 03/02/25 09:30 Dose: 1,500 mg Documented By: Admin: 03/01/25 21:25 Dose: 1,500 mg Documented By: Admin: 03/01/25 08:16 Dose: 1,500 mg Documented By: NINFA Lorazepam (Lorazepam 2 Mg/1 Ml Vial) 0.25 mg IV NOW STA Stop: 03/01/25 00:47 Last Admin: 03/01/25 00:57 Dose: 0.25 mg Documented By: JOSE ALBERTO Metoclopramide HCl (Metoclopramide Hcl Inj 5 Mg/Ml 2 Ml Vial) 10 mg IV NOW STA Stop: 02/21/25 22:28 Last Admin: 02/21/25 23:00 Dose: 10 mg Documented By: NORMA Metoprolol Tartrate (Metoprolol Tartrate 1 Mg/Ml Vial) 2.5 mg IV NOW STA Stop: 03/01/25 00:49 Last Admin: 03/01/25 00:58 Dose: 2.5 mg Documented By: JOSE ALBERTO Miscellaneous ((Deutetrabenazine [Austedo Xr] 36 Mg Tablet Extended Release 24 H)Order Awaiting Action) 1 each N/A QS SWANPA Stop: 03/24/25 07:59 Last Admin: 02/22/25 15:38 Dose: Not Given Documented By: BRIAN Miscellaneous Information (Nursing To Pharmacy Communication) 1 each N/A TODAY SWAPNA Stop: 03/25/25 10:29 Last Admin: 02/23/25 10:45 Dose: Not Given Documented By: [email or web address] Ondansetron HCl (Ondansetron Inj 2 Mg/Ml 2 Ml Vial) 4 mg IV NOW STA Stop: 02/21/25 19:36 Last Admin: 02/21/25 20:07 Dose: 4 mg Documented By: NORMA Potassium Chloride (Potassium Chloride Crtab 20 Meq Tabcr) 20 meq PO NOW STA Stop: 02/24/25 15:56 Last Admin: 02/24/25 16:34 Dose: 20 meq Documented By: ALLENM Potassium Chloride (Potassium Chloride Crtab 20 Meq Tabcr) 40 meq PO NOW STA Stop: 02/25/25 04:36 Last Admin: 02/25/25 04:55 Dose: 40 meq Documented By: [id number] Potassium Chloride (Potassium Chloride Pwd 20 Meq Pack) 20 meq PO BID SWAPNA Stop: 02/25/25 21:01 Last Admin: 02/25/25 21:11 Dose: 20 meq Documented By: Admin: 02/25/25 08:27 Dose: 20 meq Documented By: NINFA Potassium Chloride (Potassium Chloride Crtab 20 Meq Tabcr) 20 meq PO NOW STA Stop: 03/07/25 07:44 Last Admin: 03/07/25 09:00 Dose: 20 meq Documented By: AM Potassium Chloride (Potassium Chloride Crtab 20 Meq Tabcr) 20 meq PO NOW STA Stop: 03/08/25 07:44 Last Admin: 03/08/25 08:11 Dose: 20 meq Documented By: rmt Potassium Phosphate (Pot Phosphate Monobasic W/ Sod Tab) 1 tab PO QID [facility] Stop: 02/26/25 13:01 Last Admin: 02/26/25 12:28 Dose: 1 tab Documented By: Admin: 02/26/25 08:44 Dose: 1 tab Documented By: Admin: 02/25/25 21:11 Dose: 1 tab Documented By: Admin: 02/25/25 17:22 Dose: 1 tab Documented By: Admin: 02/25/25 13:44 Dose: 1 tab Documented By: Admin: 02/25/25 08:27 Dose: 1 tab Documented By: NINFA
[2025-03-10 14:27] VITALS: BP 153/80
[2025-03-10 15:33] VITALS: PULSE 77
== END 2025-03-10 16:00 | DRG 987 ==
LOC: ED 19:17 → SUATTDRO 02-22 00:12 → EDINP 02-22 00:12 → 2W 02-22 13:48 → 2S 03-02 09:25

== ENCOUNTER 2025-04-05 10:15 | Inpatient (IN) ==
--- NOTE | 2025-04-05 11:11 | XRay Report ---
XR chest 1V portable CLINICAL HISTORY: trauma COMPARISON STUDY: 03/02/2025 FINDINGS: Stable mitral valve calcification. Stable cardiomegaly without pulmonary vascular congestio n. No consolidation or pleural effusion seen. No pneumothorax. IMPRESSION: No acute findings seen. ACT 112: Negative or not required by law. Electronically signed by: Filiberto Smith M.D. 04/05/2025 11:10 AM
--- NOTE | 2025-04-05 11:12 | XRay Report ---
XR pelvis 1-2V routine CLINICAL HISTORY: trauma COMPARISON: 03/09/2025 FINDINGS: Stable left ureteral stent. Stable severe degenerative changes right hip. No fracture or d islocation seen at the pelvis. IMPRESSION: No fracture seen. ACT 112: Negative or not required by law. Electronically signed by: Filiberto Smith M.D. 04/05/2025 11:11 AM
--- NOTE | 2025-04-05 11:14 | Emergency Department Note ---
Impression & Plan Weakness, Fall, UTI (urinary tract infection), Intellectual disability ED Provider Note NAME: SILVERIO NICHOLE AGE: 59 SEX: F : 1965 ARRIVES VIA: Ambulance INFORMANT: [Caregiver][EMS] ED PROVIDER(S): [Celso Patel MD] CHIEF COMPLAINT: Fall HISTORY OF PRESENT ILLNESS: The patient is a 59-year-old female who is nonverbal. She is part of the [employer] program. She was found about an hour ago on the floor, she had rolled out of bed onto a hard floor. She was able to stand after but seemed a bit unsteady and weak. She presents for evaluation. The patient is not on blood thinning agents. She recently had a small bowel obstruction and UTI. The staff at bedside is asking us to do some baseline testing to be sure that she does not have another UTI or any other issue that may have caused her fall from bed. PMHx/PSHx/Social Hx: See Below PHYSICAL EXAM: Primary Survey Airway: Intact Breathing: Breath sounds equal bilaterally. No respiratory distress Circulation: Skin warm, capillary refill less than 2 seconds Disability: Pupils equal and reactive to light Motor Function: Seen to move the upper and lower extremities. Secondary Survey GEN: Well developed and well-nourished HEAD: Atraumatic-no lacerations or hematomas. EYES: Conjunctiva clear. ENT: No fluid in external acoustic canals, nares patent, oropharynx clear NECK: Midline trachea, no cervical spine tenderness HEART: Regular rate and rhythm LUNGS: Clear to auscultation bilaterally CHEST: Chest wall non-tender, no bruising/deformity ABD: No contusions, soft, non-tender, no distention PELVIS: Stable to rock BACK: No step offs or deformities, T-L spine non tender EXT: Moving all extremities well, no gross deformities NEURO: No focal motor deficits. Nonverbal. DIFFERENTIAL DIAGNOSIS: Intracranial injury, cervical spine injury, pelvic or hip injury, UTI, electrolyte imbalance, among others. EMERGENCY DEPARTMENT PROCEDURES: C-spine clinically cleared at 1231, once the CT imaging returned. MEDICAL DECISION MAKING: There is no leukocytosis. The patient does have an anemia however, this is a baseline finding. Platelet count somewhat high at 525. No bandemia. No coagulopathy. No renal failure or significant electrolyte abnormality. No concerning liver enzyme elevation. Urinalysis does suggest infection. Brain CT shows no acute bleed or mass effect. C-spine CT shows no acute fracture. Chest x-ray does not show pneumonia or any acute traumatic process. Pelvis film shows arthritis to the right hip but there was no pelvic or hip fracture. On exam, no extremity deformities noted. The patient was nonverbal. The patient received IV Ativan for relaxation while in the ED. She was given IV cefepime as antibiotic coverage. She was given IV Tylenol. The patient had a fall out of bed. Luckily, no serious traumatic injuries found. She was noted to be weak and unsteady by the staff at the [facility]. She does appear to have a UTI and, has had issues with frequent UTIs. She has been quite sick in the past with urinary infections. Given the circumstances, hospitalization, IV antibiotic therapy was felt warranted. I spoke with the patient's staff worker and case management. The on-call hospitalist was consulted. Prior/Outside records/notes reviewed: Today's EMS notes describing her presentation and transport to this hospital. Imaging/x-ray results per my interpretation: Chest x-ray shows some chronic findings, no obvious rib injury or pneumonia. Pelvis film showed chronic changes to the right hip. No fractures or dislocations. Chronic Medical/Social conditions affecting care: Nonverbal, intellectual disability. Care/Management discussed with: Case management, the on-call hospitalist. [facility] staff worker. Level of care consideration(s): After review of the information above and other included data: --I believe the patient requires escalation of care to admission DISPOSITION: Admission Past Med/Surg History Problem List Intellectual disability (Acute) UTI (urinary tract infection) (Acute) Fall (Acute) Weakness (Acute) Renal hematoma Anemia Nephrolithiasis Hypoxia (Acute) Vomiting (Acute) Small bowel obstruction (Acute) Pyelonephritis Ureteral stent present (Acute) Alcantara catheter in place (Acute) Hydronephrosis concurrent with and due to calculi of kidney and ureter (Acute) Bladder incontinence Nonverbal (Chronic) Medical History Candidal cystitis and urethritis Other abnormalities of gait and mobility Respiratory failure with hypoxia hx not known per facility, hospitalized [facility] december 2024. At current O2 sats while awake 95 % per facility. Bilateral pleural effusion Left ureteral calculus Complicated UTI (urinary tract infection) Osteoarthritis of hips, bilateral Autism Severe intellectual disability Nocturnal hypoxemia per facility while in hospital 12/2024, suspected sleep apnea, sats would drop at night. Denies occuring currently. Alcantara catheter in place History of sepsis hospitalized [facility] december 2024. Resolved per facility. History of pneumonia (12/2024) hospitalized at [facility]. december 2024. resolved per facility. Congenital hiatus hernia Umbilical hernia Hydronephrosis with renal and ureteral calculous obstruction Iron deficiency anemia Epilepsy Fatty (change of) liver, not elsewhere classified Psychomotor deficit Flat foot Other acquired deformity of toe toes Myopathy extraocular muscles right orbit Diplopia Other forms of scoliosis, lumbar region Pure hypercholesterolemia, unspecified Major depressive disorder, recurrent Hypermetropia, bilateral Diarrhea, unspecified Drug induced subacute dyskinesia Tremor, unspecified Restlessness and agitation GERD without esophagitis Deficiency of other vitamins Depression Constipation Unspecified cataract Lump of right breast Urinary incontinence Chronic pain Repeated falls facility denies fall in past 90 days. Astigmatism unspecified, right eye unspecified, left eye Chronic gum disease chronic gingivitis , plaque induced Dysphagia Anxiety disorder, unspecified OCD (obsessive compulsive disorder) Dementia unspecified Somnolence Polypharmacy Surgical History History of cystoscopy (~12/16/24) Cystoscopy with irrigation of bladder and catheter placement. Left ureteroscopy, Retrograde Pyelogram, Left Stent Placement, ureteral dilation, and aspiration of left kidney Grade 2 view, glidescope 3, ETT 7.0. Surgical history unknown Social History Smoking Status: Unknown if ever smoked Second Hand Exposure: No; Hx Alcohol Use: No Hx Substance Use: No Preferred Language: Vietnamese Communication Ability: Unable Communication Ability Comment: pt. nonverbal, sometimes cooperates with staff weapons officer Required: No Beliefs That Will Affect Care: None marital status: Single Current Living Situation: Other Current Living Situation Comment: [facility] current occupational status: disabled Feels Safe at Home: Yes Assistive Devices: Walker and Wheelchair Allergies Allergies Allergy/AdvReac Type Severity Reaction Status Date / Time caffeine Allergy Unknown Unknown Verified 02/09/25 14:57 naproxen Allergy Unknown no rxn Verified 02/09/25 14:57 info listed NSAIDS (Non-Steroidal Allergy Unknown no rxn Verified 02/09/25 14:57 Anti-Inflamma listed stimulants AdvReac Unknown Uncoded 04/05/25 15:51 Home Meds Home Medications Medication Instructions Recorded Confirmed acetaminophen 500 mg tablet 500 mg PO QAM chronic pain 12/15/24 04/05/25 aloe vera 1 applic topical Q1H PRN Sunburn 12/15/24 04/05/25 aluminum-mag hydroxide-simethicone 10 ml PO DIRECTED PRN 12/15/24 04/05/25 400 mg-400 mg-40 mg/5 mL oral susp Indigestion (Maalox Maximum Strength) bisacodyl 5 mg tablet,delayed 10 mg PO Q3D PRN Constipation 12/15/24 04/05/25 release (Dulcolax (bisacodyl)) chlorhexidine gluconate 0.12 % 1 applic buccal TID chronic 12/15/24 04/05/25 mouthwash gingivitis clobazam 10 mg tablet (Onfi) 5 mg PO HS 12/15/24 04/05/25 deutetrabenazine 36 mg 36 mg PO DAILY 12/15/24 04/05/25 tablet,extended release 24 hr (Austedo XR) docusate sodium 100 mg capsule 100 mg PO AMHS 12/15/24 04/05/25 famotidine 40 mg tablet (Pepcid) 40 mg PO DAILY 12/15/24 04/05/25 glycopyrrolate 1 mg tablet 1 mg PO TID excessive drooling 12/15/24 04/05/25 (Robinul) hydrocortisone 1 % topical cream 1 applic topical TID PRN Rash 12/15/24 04/05/25 lamotrigine 100 mg tablet 50 mg PO AMHS 12/15/24 04/05/25 lamotrigine 200 mg tablet 200 mg PO AMHS 12/15/24 04/05/25 (Lamictal) levetiracetam 1,000 mg tablet 1,000 mg PO BID 12/15/24 04/05/25 levetiracetam 500 mg tablet 500 mg PO BID 12/15/24 04/05/25 (Keppra) loperamide 2 mg capsule (Imodium 2 mg PO DIRECTED PRN Loose Stool 12/15/24 04/05/25 A-D) multivitamin 1 tab PO QAM 12/15/24 04/05/25 perphenazine 2 mg tablet 2 mg PO AMHS 12/15/24 04/05/25 perphenazine 4 mg tablet 4 mg PO HS 12/15/24 04/05/25 phosphorated carbohydrate oral 30 ml PO DIRECTED PRN Nausea 12/15/24 04/05/25 solution (Emetrol oral solution) polyethylene glycol 3350 17 17 g PO QAM 12/15/24 04/05/25 gram/dose oral powder (Miralax) quetiapine 200 mg tablet (Seroquel) 200 mg PO HS 12/15/24 04/05/25 quetiapine 50 mg tablet (Seroquel) 50 mg PO QAM 12/15/24 04/05/25 sertraline 100 mg tablet (Zoloft) 100 mg PO QAM 12/15/24 04/05/25 calcium polycarbophil 625 mg 625 mg PO QAM 01/05/25 04/05/25 tablet (FiberCon) neomycin-bacitracn Zn-polymyxn 3.5 1 applic topical BID PRN abrasion 01/05/25 04/05/25 mg-400 unit-5,000 unit top oint until resolved pkt (Triple Antibiotic) acetaminophen 500 mg tablet 1,000 mg PO Q4H PRN elevated 02/09/25 04/05/25 temp/headache/mild pain fluoride (sodium) 1.1 % dental 1 applic dental BID 02/09/25 04/05/25 cream (SF 5000 Plus) calcium 500 mg (as 1 tab PO QAM 02/21/25 04/05/25 carbonate)-vitamin D3 5 mcg (200 unit) tablet nystatin 100,000 unit/gram topical 1 applic topical HS 02/21/25 04/05/25 cream dextromethorphan-guaifenesin 10 5 ml PO Q4 PRN Cough 04/05/25 04/05/25 mg-200 mg/5 mL oral liquid metoprolol succinate 25 mg 25 mg PO DAILY 04/05/25 04/05/25 tablet,extended release 24 hr phenylephrine HCl 10 mg tablet 10 mg PO Q4 PRN colds/runny nose 04/05/25 04/05/25 Previous Rx's Medication Instructions Recorded cholecalciferol (vitamin D3) 125 125 mcg PO QAM #30 tabs 12/24/24 mcg (5,000 unit) tablet ferrous sulfate 325 mg (65 mg 325 mg PO BIDM #60 tabs 12/24/24 iron) tablet,delayed release Results & Data (ED) Vital Signs Vital Signs - 24 hr 04/05/25 10:10 04/05/25 10:27 04/05/25 12:21 Temperature 37.1 C Temperature Source Oral Pulse Rate 79 83 Pulse Rate [Apical] 72 Pulse Rhythm Regular Pulse Rhythm [Apical] Regular Pulse Strength Normal Pulse Strength [Apical] Normal Respiratory Rate 21 Respiratory Effort / Characteristics Non-Labored Spontaneous Non-Labored Spontaneous Respiratory Depth Normal Normal Respiratory Pattern Regular Regular Blood Pressure 154/65 H Blood Pressure [Left Arm] 148/75 H Blood Pressure Mean 94 Blood Pressure Mean [Left Arm] 99 Blood Pressure Position Lying Blood Pressure Position [Left Arm] Lying Pulse Oximetry 94 95 Oxygen Delivery Method Room Air Sepsis Recent Fever Within 48 Hours No Sepsis New/Unexplained Change in Mental Status No Sepsis Action Taken by Nursing No Action Required 04/05/25 14:28 04/05/25 14:30 04/05/25 16:00 Temperature Temperature Source Pulse Rate 72 Pulse Rate [Apical] 72 72 Pulse Rhythm Pulse Rhythm [Apical] Pulse Strength Pulse Strength [Apical] Respiratory Rate 16 16 Respiratory Effort / Characteristics Non-Labored Spontaneous Non-Labored Spontaneous Respiratory Depth Respiratory Pattern Blood Pressure Blood Pressure [Left Arm] 158/66 H 165/66 H Blood Pressure Mean Blood Pressure Mean [Left Arm] 96 99 Blood Pressure Position Blood Pressure Position [Left Arm] Pulse Oximetry 96 98 Oxygen Delivery Method Room Air Room Air Sepsis Recent Fever Within 48 Hours Sepsis New/Unexplained Change in Mental Status Sepsis Action Taken by Custodial Medications Current Medication List: was personally reviewed by me Laboratory Data Attestation: I reviewed the patient's lab results. 04/05/25 11:29 04/05/25 11:29 Lab Results 04/05/25 04/05/25 Range/Units 11:29 11:48 WBC 10.80 (4.8-10.8) K/ul RBC 3.59 L (4.20-5.40) M/uL Hgb 9.1 L (12.0-16.0) g/dl Hct 29.7 L (37.0-47.0) % MCV 82.7 (80.0-100.0) fL MCH 25.3 (25.0-34.0) pg MCHC 30.6 L (32.0-36.0) g/dL RDW Std Deviation 51.5 H (36.4-46.3) fL RDW Coeff of Nic 17.1 H (11.5-14.5) % Plt Count 525 H (130-400) K/uL MPV 9.8 (9.4-12.4) fL Immature Gran % (Auto) 0.4 % Neut % (Auto) 69.9 % Lymph % (Auto) 18.2 % Bradley % (Auto) 9.9 % Eos % (Auto) 1.1 % Baso % (Auto) 0.5 % Neut # (Auto) 7.55 H (1.40-6.50) K/uL Lymph # (Auto) 1.97 (1.20-3.40) K/uL Bradley # (Auto) 1.07 H (0.11-0.59) K/uL Eos # (Auto) 0.12 (0.00-0.50) K/uL Baso # (Auto) 0.05 (0.00-0.20) K/uL Immature Gran # (Auto) 0.04 (0.01-0.20) K/uL PT 10.5 (9.0-12.0) Seconds INR 1.0 (0.9-1.1) APTT 25 (21-31) Seconds PTT Ratio 0.9 Sodium 140 (136-145) mmol/L Potassium 3.7 (3.5-5.1) mmol/L Chloride 102 (98-107) mmol/L Carbon Dioxide 31 (21-32) mmol/L Anion Gap 7 (3-11) BUN 10 (6-23) mg/dl Creatinine 0.95 (0.6-1.2) mg/dl Est Cr Clr Drug Dosing Not Reportable eGFR 69.02 BUN/Creatinine Ratio 10.5 (10-20) Glucose 95 (70-99(Fasting)) mg/dl Calcium 9.0 (8.6-10.3) mg/dl Phosphorus 3.4 (2.5-4.9) mg/dl Magnesium 1.8 (1.7-2.4) mg/dl Total Bilirubin 0.2 (0.2-1.0) mg/dl AST 15 (13-39) U/L ALT 12 (7-52) U/L Alkaline Phosphatase 173 H (34-104) U/L Total Protein 6.6 (6.0-8.3) gm/dl Albumin 3.4 (3.4-5.0) gm/dl Globulin 3.2 (2.5-4.0) gm/dl Albumin/Globulin Ratio 1.1 (0.9-2) Urine Color Yellow Urine Appearance Cloudy A (Clear) Urine pH 8.5 H (4.5-7.5) Ur Specific [place] 1.020 (1.000-1.030) Urine Protein Negative (Negative) Urine Glucose (UA) Negative (Negative) Urine Ketones Negative (Negative) Urine Blood Trace-intact H (Negative) Urine Nitrite Negative (Negative) Urine Bilirubin Negative (Negative) Urine Urobilinogen Negative (Negative) Ur Leukocyte Esterase 3+ H (Negative) Urine WBC (Auto) >50 H (0-5) /hpf Urine RBC (Auto) 0-2 (0-2) /hpf U Hyaline Cast (Auto) 0-2 (0-2) /lpf U Epithel Cells (Auto) 0-2 (0-2) /hpf Urine Bacteria (Auto) 4+ H (None Seen) Urine Comment Administered Medications Lactated Ringer's (Lr) 1,000 mls @ 80 mls/hr IV .[id number] [facility] Stop: 04/06/25 07:00 Last Admin: 04/05/25 14:28 Dose: 80 mls/hr Documented By: SANDIE Discontinued Medications Acetaminophen (Ofirmev) 1,000 mg in 100 mls @ 400 mls/hr IV NOW STA Stop: 04/05/25 11:03 Last Infusion: 04/05/25 12:26 Dose: Infused Documented By: darrick Admin: 04/05/25 12:11 Dose: 400 mls/hr Documented By: darrick Cefepime HCl (Maxipime 2000mg) 2,000 mg in 20 mls @ 5 mls/min IV NOW STA; Protocol Stop: 04/05/25 13:05 Last Admin: 04/05/25 13:12 Dose: 5 mls/min Documented By: darrick Lorazepam (Lorazepam 1 Mg/1 Ml Syr Ed Inj Use) 1 mg IV ONE STA Stop: 04/05/25 11:20 Last Admin: 04/05/25 11:35 Dose: 1 mg Documented By: [facility] [place] Imaging Data Radiologist's Impression: Cervical Spine CT 04/05/25 10:51 CT SCAN OF THE CERVICAL SPINE CLINICAL HISTORY: Trauma. COMPARISON STUDY: Cervical spine CT July 25, 2023. TECHNIQUE: CT scan of the cervical spine is performed from the skull base to the upper thoracic spine. Images are reviewed in the axial, sagittal, and coronal planes. IV contrast was not administered for this examination. A dose lowering technique was utilized adhering to the principles of ALARA. CT DOSE: 1150.32 mGy.cm FINDINGS: This exam is mildly compromised given difficulty positioning. There is reversal of the cervical lordosis. No acute cervical spine fractures are identified. The facet joints are intact. There is no prevertebral edema. There is mild disc space narrowing and extensive anterior osteophytosis of the cervical spine. There is mild multilevel facet arthrosis. IMPRESSION: 1. No acute cervical spine fracture or subluxation. 2. Exam mildly compromised given difficulty positioning. ACT 112: Negative or not required by law. Electronically signed by: Henry Ayala M.D. 04/05/2025 12:12 PM Chest X-Ray 04/05/25 10:51 XR chest 1V portable CLINICAL HISTORY: trauma COMPARISON STUDY: 03/02/2025 FINDINGS: Stable mitral valve calcification. Stable cardiomegaly without pulmonary vascular congestion. No consolidation or pleural effusion seen. No pneumothorax. IMPRESSION: No acute findings seen. ACT 112: Negative or not required by law. Electronically signed by: Filiberto Smith M.D. 04/05/2025 11:[address] 04/05/25 10:51 CT head/brain wo con CLINICAL HISTORY: trauma. TECHNIQUE: Multiple axial CT images of the head were obtained without contrast. A dose lowering technique was utilized adhering to the principles of ALARA. CT DOSE: 1150 COMPARISON: 12/15/2024 FINDINGS: There is mild motion artifact. No intracranial hemorrhage seen. No mass effect, midline shift, or hydrocephalus. No skull fracture seen. There is stable mild mucosal thickening in the left maxillary sinus. Stable mild chronic small vessel ischemic changes. IMPRESSION: No acute findings. ACT 112: Negative or not required by law. The above report was generated using voice recognition software. It may contain grammatical, syntax or spelling errors. Electronically signed by: Filiberto Smith M.D. 04/05/2025 12:17 PM Pelvis X-Ray 04/05/25 10:51 XR pelvis 1-2V routine CLINICAL HISTORY: trauma COMPARISON: 03/09/2025 FINDINGS: Stable left ureteral stent. Stable severe degenerative changes right hip. No fracture or dislocation seen at the pelvis. IMPRESSION: No fracture seen. ACT 112: Negative or not required by law. Electronically signed by: Filiberto Smith M.D. 04/05/2025 11:11 AM KUB X-Ray 04/05/25 15:07 KUB HISTORY: check previous stent placement COMPARISON STUDY: 03/05/2025 FINDINGS: Left ureteral stent is stable and appears well-positioned. There is moderate retained stool. No bowel obstruction. IMPRESSION: No acute findings. ACT 112: Negative or not required by law. The above report was generated using voice recognition software. It may contain grammatical, syntax or spelling errors. Electronically signed by: Filiberto Smith M.D. 04/05/2025 3:50 PM Discharge Plan Visit Data Chief Complaint: Fall Stated Complaint: FALL ED Provider: Celso Patel Discharge Problem: Weakness, Fall, UTI (urinary tract infection), Intellectual disability Patient Disposition: Admitted As Inpatient Condition: Fair Forms Stand Alone Forms: [facility] Prescriptions Prescriptions: No Action multivitamin Tablet 1 tab PO QAM glycopyrrolate [Robinul] 1 mg tablet 1 mg PO TID perphenazine 2 mg tablet 2 mg PO AMHS lamotrigine [Lamictal] 200 mg tablet 200 mg PO AMHS Rx Instructions: Take 200mg w/ 50mg to equal 250mg by mouth twice daily loperamide [Imodium A-D] 2 mg Capsule 2 mg PO DIRECTED MDD 8mg/24hrs PRN (Reason: Loose Stool) Rx Instructions: 2 CAPLET AFTER FIRST LOOSE STOOL THEN 1 CAPLET AFTER EACH SUBSEQUENT LOOSE STOOL levetiracetam [Keppra] 500 mg tablet 500 mg PO BID Rx Instructions: Take 500mg w/ 1000mg to equal 1500mg by mouth twice daily famotidine [Pepcid] 40 mg tablet 40 mg PO DAILY Emetrol Solution 30 ml PO DIRECTED PRN (Reason: Nausea) Rx Instructions: Every 15 minutes UNTIL DISTRESS SUBSIDES sertraline [Zoloft] 100 mg tablet 100 mg PO QAM quetiapine [Seroquel] 200 mg tablet 200 mg PO HS acetaminophen 500 mg Tablet 500 mg PO QAM hydrocortisone 1 % Cream 1 applic TOPICAL TID PRN (Reason: Rash) perphenazine 4 mg tablet 4 mg PO HS docusate sodium 100 mg Capsule 100 mg PO AMHS Rx Instructions: Hold if loose stools bisacodyl [Dulcolax (bisacodyl)] 5 mg Tablet,Delayed Release (Dr/Ec) 10 mg PO Q3D PRN (Reason: Constipation) polyethylene glycol 3350 [Miralax] 17 gram/dose powder 17 g PO QAM Rx Instructions: Hold for loose stools aloe vera Gel 1 applic TOPICAL Q1H PRN (Reason: Sunburn) lamotrigine 100 mg tablet 50 mg PO AMHS Rx Instructions: Take 50mg w/ 200mg to equal 250mg by mouth twice daily alum-mag hydroxide-simeth [Maalox Maximum Strength] 400-400-40 mg/5 mL Suspension 10 ml PO DIRECTED MDD 60ml/24hrs PRN (Reason: Indigestion) Rx Instructions: Give 2 tsp by mouth as needed for indigestion between meals and at bedtime. chlorhexidine gluconate 0.12 % Mouthwash 1 applic BUCCAL TID Rx Instructions: Swab on teeth and gums after brushing quetiapine [Seroquel] 50 mg tablet 50 mg PO QAM levetiracetam 1,000 mg tablet 1,000 mg PO BID Rx Instructions: Take 1000mg w/ 500mg to equal 1500mg by mouth twice daily clobazam [Onfi] 10 mg tablet 5 mg PO HS [place] XR 36 mg tablet extended release 24 hr 36 mg PO DAILY ferrous sulfate 325 mg (65 mg iron) Tablet,Delayed Release (Dr/Ec) 325 mg PO BIDM Qty: 60 0RF cholecalciferol (vitamin D3) 125 mcg (5,000 unit) Tablet 125 mcg PO QAM Qty: 30 0RF fluoride (sodium) [SF 5000 Plus] 1.1 % Cream 1 applic DENTAL BID acetaminophen 500 mg tablet 1,000 mg PO Q4H MDD 3G PRN (Reason: elevated temp/headache/mild pain) nystatin 100,000 unit/gram Cream 1 applic TOPICAL HS Rx Instructions: APPLY TO VAGINA TOPICALLY AT BEDTIME calcium carbonate-vitamin D3 500 mg-5 mcg (200 unit) Tablet 1 tab PO QAM calcium polycarbophil [FiberCon] 625 mg Tablet 625 mg PO QAM Triple Antibiotic 3.5-400-5,000 [id number] Ointment In Packet 1 applic TOPICAL BID PRN (Reason: abrasion until resolved) metoprolol succinate 25 mg tablet extended release 24 hr 25 mg PO DAILY dextromethorphan-guaifenesin [Robitussin Cough-Chest Jorge DM] 10-200 mg/5 mL Liquid 5 ml PO Q4 PRN (Reason: Cough) phenylephrine HCl 10 mg Tablet 10 mg PO Q4 PRN (Reason: colds/runny nose) Referrals Referrals: Josh Holman MD [Primary Care Provider] - Discharge Problem: Fall Qualifiers: Encounter type: initial encounter Qualified Code(s): W19.XXXA - Unspecified fall, initial encounter UTI (urinary tract infection) Qualifiers: Urinary tract infection type: acute cystitis Hematuria presence: without hematuria Qualified Code(s): N30.00 - Acute cystitis without hematuria
[2025-04-05] MEDS: LORazepam 1 MG/1 ML SYR ED Inj Use IV STA (11:35)
[2025-04-05 11:44] LABS: Hematocrit (blood only) 29.7 % (37.0-47.0); Hemoglobin 9.1 g/dl (12.0-16.0); Immature Granulocytes # (auto) 0.04 K/uL (0.01-0.20); Immature Granulocytes % (auto) 0.4 %; Mean Corpuscular Hemoglobin 25.3 pg (25.0-34.0); Mean Corpuscular Volume 82.7 fL (80.0-100.0); Platelet Count 525 K/uL (130-400); RDW Standard Deviation 51.5 fL (36.4-46.3); Red Blood Count 3.59 M/uL (4.20-5.40); White Blood Count 10.80 K/ul (4.8-10.8)
[2025-04-05 12:03] LABS: Alanine Aminotransferase 12 U/L (7-52); Albumin Globulin Ratio 1.1 (0.9-2); Albumin Level 3.4 gm/dl (3.4-5.0); Alkaline Phosphatase 173 U/L (34-104); Anion Gap 7 (3-11); Bilirubin,Total 0.2 mg/dl (0.2-1.0); Blood Urea Nitrogen 10 mg/dl (6-23); Calcium 9.0 mg/dl (8.6-10.3); Carbon Dioxide 31 mmol/L (21-32); Chloride 102 mmol/L (98-107); Globulin 3.2 gm/dl (2.5-4.0); Glucose 95 mg/dl (70-99(Fasting)); Potassium 3.7 mmol/L (3.5-5.1); Sodium 140 mmol/L (136-145); Total Protein 6.6 gm/dl (6.0-8.3)
[2025-04-05] MEDS: ACETAMINOPHEN 1,000 MG/100 ML VIAL IV STA (12:11)
--- NOTE | 2025-04-05 12:14 | CT Scan Report ---
CT SCAN OF THE CERVICAL SPINE CLINICAL HISTORY: Trauma. COMPARISON STUDY: Cervical spine CT July 25, 2023. TECHNIQUE: CT scan of the cervical spine is performed from the skull base to the upper thoracic spine . Images are reviewed in the axial, sagittal, and coronal planes. IV contrast was not administered fo r this examination. A dose lowering technique was utilized adhering to the principles of ALARA. CT DOSE: 1150.32 mGy.cm FINDINGS: This exam is mildly compromised given difficulty positioning. There is reversal of the cerv ical lordosis. No acute cervical spine fractures are identified. The facet joints are intact. There i s no prevertebral edema. There is mild disc space narrowing and extensive anterior osteophytosis of t he cervical spine. There is mild multilevel facet arthrosis. IMPRESSION: 1. No acute cervical spine fracture or subluxation. 2. Exam mildly compromised given difficulty positioning. ACT 112: Negative or not required by law. Electronically signed by: Henry Ayala M.D. 04/05/2025 12:12 PM
[2025-04-05 12:17] LABS: INR 1.0 (0.9-1.1); Partial Thromboplastin Time 25 Seconds (21-31); Prothrombin Time 10.5 Seconds (9.0-12.0)
--- NOTE | 2025-04-05 12:19 | CT Scan Report ---
CT head/brain wo con CLINICAL HISTORY: trauma. TECHNIQUE: Multiple axial CT images of the head were obtained without contrast. A dose lowering tech nique was utilized adhering to the principles of ALARA. CT DOSE: 1150 COMPARISON: 12/15/2024 FINDINGS: There is mild motion artifact. No intracranial hemorrhage seen. No mass effect, midline melissa ft, or hydrocephalus. No skull fracture seen. There is stable mild mucosal thickening in the left max illary sinus. Stable mild chronic small vessel ischemic changes. IMPRESSION: No acute findings. ACT 112: Negative or not required by law. The above report was generated using voice recognition software. It may contain grammatical, syntax o r spelling errors. Electronically signed by: Filiberto Smith M.D. 04/05/2025 12:17 PM
[2025-04-05 12:24] LABS: Appearance Urine Cloudy (Clear); Glucose Urine UA Negative (Negative)
[2025-04-05 12:48] LABS: Bacteria Urine Automated 4+ (None Seen); Epithelial Cell Urine Auto 0-2 /hpf (0-2); RBC Urine Automated 0-2 /hpf (0-2); WBC Urine Automated >50 /hpf (0-5)
[2025-04-05 12:49] LABS: Cast Urine Automated 0-2 /lpf (0-2)
[2025-04-05] MEDS: CEFEPIME 2000MG 2,000 MG/20 ML SYR IV STA (13:12)
--- NOTE | 2025-04-05 14:12 | History & Physical Report ---
Date of Service April 05, 2025 Assessment & Plan (1) Nephrolithiasis: (2) Ureteral stent present: (3) Nonverbal: (4) Complicated UTI (urinary tract infection): (5) Severe intellectual disability: (6) Fatty (change of) liver, not elsewhere classified: (7) Tremor, unspecified: Plan 59 yo female with pmhx of severe intellectual disability c/b epilepsy, nonverbal status, fecal/urinary incontinence, s/p recent urethral stent placement, fatty liver disease, GERD, OCD, IAN, who presents for a fall from the [facility]. #Fall #Epilepsy -unclear cause of fall from bed, likely mechanical in nature -per caregiver patient currently at baseline, concern is that UTI cause fall and they do not want her to become septic -lower on differential includes stroke (patient at baseline), arrythmia (unlikely to cause fall from bed), seizures (does have epilepsy so possible) Plan: -gentle hydration -check ECG -neurology consult, appreciate recs for consideration of seizure and polypharmacy (ordered) -check Mg, phos #Severe Bacteriuria #Ureteral Stent -unclear if patient has symptoms, hemodynamically stable at this time, no sepsis criteria -UA appears to be significantly infected in setting of chronic colonization Plan: -urology consult, appreciate recs (ordered) -ID consult, appreciate recs -continue cefepime given suspeptibility of prior cultures -f/u cultures #Severe Intellectual Disability #OCD #IAN -continue home meds austedo xr, perphenazine, seroquel, zoloft -continue miralax, bisacodyl suppository prn for constipation, -mouth care ordered -continue keppra and lamictal I spent a total of 80 minutes in direct patient care, including [id number] time with the patient and/or family, reviewing medical records, ordering and reviewing diagnostic tests, and coordinating care with other healthcare providers. This time includes: history taking, physical examination, medical decision making, counseling, ECG interpretation, imaging interpretation, lab interpretation, orders, and education, excluding time spent in the performance of separately billed services. History of Present Illness Chief Complaint: -fall Primary Care Provider: Josh Holman MD 59 yo female with pmhx of severe intellectual disability c/b epilepsy, nonverbal status, fecal/urinary incontinence, s/p recent urethral stent placement, fatty liver disease, GERD, OCD, IAN, who presents for a fall from the [facility]. Had recent admission 02/2025 for urosepsis now s/p stent placement and abx. In the ED, given cefepime, labwork, urology requested admission to prevent decompensation of possible UTI, admitted to medicine. Patient seen and examined at bedside. Patient nonverbal. [facility] caregiver present and provides entire history. Patient was found fallen off of her bed. Yesterday appeared spacy and "out of it." Otherwise she appears to be similar to how she always is. States that they are concerned she has a UTI and would like it evaluated and stabilized before discharge. Patient will selectively refuse medications. Understands conversations but not able to verbalize any response. Occasionally walks but is unlikely to do so here per caregiver. Things important to her care: chocolate pudding for giving meds, does not like socks, will not drink plain water likes flavored water. Aunt Mary in chart is medical power of admitted attorneys, if unable to be reached [employer] of [facility] able to consent for procedures. Full code. Allergies Allergy/AdvReac Type Severity Reaction Status Date / Time caffeine Allergy Unknown Unknown Verified 02/09/25 14:57 naproxen Allergy Unknown no rxn Verified 02/09/25 14:57 info listed NSAIDS (Non-Steroidal Allergy Unknown no rxn Verified 02/09/25 14:57 Anti-Inflamma listed Home Medications Medication Instructions Recorded Confirmed Type acetaminophen 500 mg tablet 500 mg PO QAM chronic pain 12/15/24 02/21/25 History aloe vera 1 applic topical Q1H PRN Sunburn 12/15/24 02/21/25 History aluminum-mag hydroxide-simethicone 10 ml PO DIRECTED PRN 12/15/24 02/21/25 History 400 mg-400 mg-40 mg/5 mL oral susp Indigestion (Maalox Maximum Strength) bisacodyl 5 mg tablet,delayed 10 mg PO Q3D PRN Constipation 12/15/24 02/21/25 History release (Dulcolax (bisacodyl)) chlorhexidine gluconate 0.12 % 1 applic buccal TID chronic 12/15/24 02/21/25 History mouthwash gingivitis clobazam 10 mg tablet (Onfi) 5 mg PO HS 12/15/24 02/21/25 History deutetrabenazine 36 mg 36 mg PO DAILY 12/15/24 02/21/25 History tablet,extended release 24 hr (Austedo XR) docusate sodium 100 mg capsule 100 mg PO AMHS 12/15/24 02/21/25 History famotidine 40 mg tablet (Pepcid) 40 mg PO DAILY 12/15/24 02/21/25 History glycopyrrolate 1 mg tablet 1 mg PO TID excessive drooling 12/15/24 02/21/25 History (Robinul) hydrocortisone 1 % topical cream 1 applic topical TID PRN Rash 12/15/24 02/21/25 History lamotrigine 100 mg tablet 50 mg PO AMHS 12/15/24 02/21/25 History lamotrigine 200 mg tablet 200 mg PO AMHS 12/15/24 02/21/25 History (Lamictal) levetiracetam 1,000 mg tablet 1,000 mg PO BID 12/15/24 02/21/25 History levetiracetam 500 mg tablet 500 mg PO BID 12/15/24 02/21/25 History (Keppra) loperamide 2 mg capsule (Imodium 2 mg PO DIRECTED PRN Loose Stool 12/15/24 02/21/25 History A-D) multivitamin 1 tab PO QAM 12/15/24 02/21/25 History perphenazine 2 mg tablet 2 mg PO AMHS 12/15/24 02/21/25 History perphenazine 4 mg tablet 4 mg PO HS 12/15/24 02/21/25 History phosphorated carbohydrate oral 30 ml PO DIRECTED PRN Nausea 12/15/24 02/21/25 History solution (Emetrol oral solution) polyethylene glycol 3350 17 17 g PO QAM 12/15/24 02/21/25 History gram/dose oral powder (Miralax) quetiapine 200 mg tablet (Seroquel) 200 mg PO HS 12/15/24 02/21/25 History quetiapine 50 mg tablet (Seroquel) 50 mg PO QAM 12/15/24 02/21/25 History sertraline 100 mg tablet (Zoloft) 100 mg PO QAM 12/15/24 02/21/25 History cholecalciferol (vitamin D3) 125 125 mcg PO QAM #30 tabs 12/24/24 02/21/25 Rx mcg (5,000 unit) tablet ferrous sulfate 325 mg (65 mg 325 mg PO BIDM #60 tabs 12/24/24 02/21/25 Rx iron) tablet,delayed release calcium polycarbophil 625 mg 625 mg PO QAM 01/05/25 02/21/25 History tablet (FiberCon) neomycin-bacitracn Zn-polymyxn 3.5 1 applic topical BID PRN abrasion 01/05/25 02/21/25 History mg-400 unit-5,000 unit top oint until resolved pkt (Triple Antibiotic) acetaminophen 500 mg tablet 1,000 mg PO Q4H PRN elevated 02/09/25 02/21/25 History temp/headache/mild pain fluoride (sodium) 1.1 % dental 1 applic dental BID 02/09/25 02/21/25 History cream (SF 5000 Plus) calcium 500 mg (as 1 tab PO QAM 02/21/25 02/21/25 History carbonate)-vitamin D3 5 mcg (200 unit) tablet dextromethorphan-guaifenesin 10 5 ml PO Q4 PRN Cough 02/21/25 02/21/25 History mg-200 mg/5 mL oral liquid nystatin 100,000 unit/gram topical 1 applic topical HS 02/21/25 02/21/25 History cream Past Med/Surg History Problem List (Updated 03/14/25 @ 00:08 by Background Davivek) Renal hematoma Anemia Nephrolithiasis Hypoxia (Acute) Vomiting (Acute) Small bowel obstruction (Acute) Pyelonephritis Ureteral stent present (Acute) Alcantara catheter in place (Acute) Hydronephrosis concurrent with and due to calculi of kidney and ureter (Acute) Bladder incontinence Nonverbal (Chronic) Medical History Candidal cystitis and urethritis Other abnormalities of gait and mobility Respiratory failure with hypoxia hx not known per facility, hospitalized [facility] december 2024. At current O2 sats while awake 95 % per facility. Bilateral pleural effusion Left ureteral calculus Complicated UTI (urinary tract infection) Osteoarthritis of hips, bilateral Autism Severe intellectual disability Nocturnal hypoxemia per facility while in hospital 12/2024, suspected sleep apnea, sats would drop at night. Denies occuring currently. Alcantara catheter in place History of sepsis hospitalized [facility] december 2024. Resolved per facility. History of pneumonia (12/2024) hospitalized at [facility]. december 2024. resolved per facility. Congenital hiatus hernia Umbilical hernia Hydronephrosis with renal and ureteral calculous obstruction Iron deficiency anemia Epilepsy Fatty (change of) liver, not elsewhere classified Psychomotor deficit Flat foot Other acquired deformity of toe toes Myopathy extraocular muscles right orbit Diplopia Other forms of scoliosis, lumbar region Pure hypercholesterolemia, unspecified Major depressive disorder, recurrent Hypermetropia, bilateral Diarrhea, unspecified Drug induced subacute dyskinesia Tremor, unspecified Restlessness and agitation GERD without esophagitis Deficiency of other vitamins Depression Constipation Unspecified cataract Lump of right breast Urinary incontinence Chronic pain Repeated falls facility denies fall in past 90 days. Astigmatism unspecified, right eye unspecified, left eye Chronic gum disease chronic gingivitis , plaque induced Dysphagia Anxiety disorder, unspecified OCD (obsessive compulsive disorder) Dementia unspecified Somnolence Polypharmacy Surgical History History of cystoscopy (~12/16/24) Cystoscopy with irrigation of bladder and catheter placement. Left ureteroscopy, Retrograde Pyelogram, Left Stent Placement, ureteral dilation, and aspiration of left kidney Grade 2 view, glidescope 3, ETT 7.0. Surgical history unknown Social History Smoking Status: Unknown if ever smoked Second Hand Exposure: No; Hx Alcohol Use: No Hx Substance Use: No Preferred Language: Turkish Communication Ability: Unable Communication Ability Comment: pt. nonverbal, sometimes cooperates with staff mechanical engineer Required: No Beliefs That Will Affect Care: None marital status: Single Current Living Situation: Other Current Living Situation Comment: detention current occupational status: disabled Feels Safe at Home: Yes Assistive Devices: Walker and Wheelchair Review of Systems Review of Systems: -unable to endorse due to mental status Physical Exam Physical Exam: Gen: A&O 0 NAD HEENT: NCAT, EOMI, not icteric. External ears normal. No rhinorrhea. Dry mucous membranes. Neck: Supple, full range of motion, no observable masses, No meningeal sign. Lungs: No Respiratory distress. CV: RRR, no edema. Abdomen: Soft, nondistended, No rebound tenderness. MSK: No joint swelling, no redness. Skin: No rashes, petechiae, lesions. Neuro: chronic tremors bilaterally, baseline per caregiver Results & Data Results & Data Vital Signs (Past 12 Hours) Vital Signs Temp Pulse Pulse Resp BP BP Pulse Ox 04/05/25 12:21 72 21 148/75 H 95 04/05/25 10:27 83 04/05/25 10:10 37.1 C 79 154/65 H 94 O2 Del Method 04/05/25 12:21 Room Air 04/05/25 10:27 04/05/25 10:10 Laboratory Results -personally reviewed, no leukocytosis but mild neutrophil predominance noted, elevated alk phos likely in setting of bone turnover from being bedbound, urine with 3+ leuks/4+bacertia/>50 WBC making infection difficult to rule out Code Status & VTE Plan Code Status -full code discussed with caregiver VTE Prophylaxis Plan VTE Prophylaxis will be ordered: Yes
[2025-04-05] MEDS: LACTATED RINGER'S 1,000 ML IV SCH (14:28)
[2025-04-05 14:33] LABS: Magnesium 1.8 mg/dl (1.7-2.4)
--- NOTE | 2025-04-05 15:09 | Urology Consultation ---
Date of Consultation April 05, 2025 Assessment & Plan (1) Nephrolithiasis: (2) Ureteral stent present: labs reviewed: wbc 10.8, cr 0.95 ua: cloudy, trace blood, nitrite neg, 3+ LE, >50 wbc culture pending hemodynamically stable and afebrile. xray reviewed: shows left ureteral stent in place. Will order a KUB to visualize the proximal stent as well. Continue cefepime for now. Previous cultures have shown carrington and pseudomonas. Will await final culture results Has urinary incontinence. Patient voiding per caregiver but consider bladder scan as needed and catheter as needed No procedure/stent removal planned at this time. Recommend treatment for UTI. She is currently scheduled for her stent removal 04/26/[address] Hernández (3) Acute UTI: History of Present Illness History of Present Illness History obtained from chart and manager urgent care present. 59 yo female with pmhx of severe intellectual disability c/b epilepsy, nonverbal status, fecal/urinary incontinence, s/p recent urethral stent placement, fatty liver disease, GERD, OCD, IAN, who presents for a fall from the [facility]. Had recent admission 02/2025 for urosepsis now s/p stent placement and abx. Operation Date: 02/28/25 13:00 Actual Procedures Cystoscopy with left Ureteroscopy, Retrograde Pyelogram, Ureteral Dilation, Laser Destruction of Stone, Basket Extraction of Stones, and Exchange of Stent Catheter - Left(Left) - Dilip Napoles DO Operation Date: 12/16/24 12:10 Actual Procedures Urgent/emergent procedure Cystoscopy with irrigation of bladder and catheter placement. Left ureteroscopy, Retrograde Pyelogram, Left Stent Placement, ureteral dilation, and aspiration of left kidney(Left) She was apparently was found on the floor at her residential by staff. They were concerned about her possibly developing another UTI and brought to [facility] ER for further evaluation. Allergies Allergy/AdvReac Type Severity Reaction Status Date / Time caffeine Allergy Unknown Unknown Verified 02/09/25 14:57 naproxen Allergy Unknown no rxn Verified 02/09/25 14:57 info listed NSAIDS (Non-Steroidal Allergy Unknown no rxn Verified 02/09/25 14:57 Anti-Inflamma listed Home Medications Medication Instructions Recorded Confirmed Type acetaminophen 500 mg tablet 500 mg PO QAM chronic pain 12/15/24 02/21/25 History aloe vera 1 applic topical Q1H PRN Sunburn 12/15/24 02/21/25 History aluminum-mag hydroxide-simethicone 10 ml PO DIRECTED PRN 12/15/24 02/21/25 History 400 mg-400 mg-40 mg/5 mL oral susp Indigestion (Maalox Maximum Strength) bisacodyl 5 mg tablet,delayed 10 mg PO Q3D PRN Constipation 12/15/24 02/21/25 History release (Dulcolax (bisacodyl)) chlorhexidine gluconate 0.12 % 1 applic buccal TID chronic 12/15/24 02/21/25 History mouthwash gingivitis clobazam 10 mg tablet (Onfi) 5 mg PO HS 12/15/24 02/21/25 History deutetrabenazine 36 mg 36 mg PO DAILY 12/15/24 02/21/25 History tablet,extended release 24 hr (Austedo XR) docusate sodium 100 mg capsule 100 mg PO AMHS 12/15/24 02/21/25 History famotidine 40 mg tablet (Pepcid) 40 mg PO DAILY 12/15/24 02/21/25 History glycopyrrolate 1 mg tablet 1 mg PO TID excessive drooling 12/15/24 02/21/25 History (Robinul) hydrocortisone 1 % topical cream 1 applic topical TID PRN Rash 12/15/24 02/21/25 History lamotrigine 100 mg tablet 50 mg PO AMHS 12/15/24 02/21/25 History lamotrigine 200 mg tablet 200 mg PO AMHS 12/15/24 02/21/25 History (Lamictal) levetiracetam 1,000 mg tablet 1,000 mg PO BID 12/15/24 02/21/25 History levetiracetam 500 mg tablet 500 mg PO BID 12/15/24 02/21/25 History (Keppra) loperamide 2 mg capsule (Imodium 2 mg PO DIRECTED PRN Loose Stool 12/15/24 02/21/25 History A-D) multivitamin 1 tab PO QAM 12/15/24 02/21/25 History perphenazine 2 mg tablet 2 mg PO AMHS 12/15/24 02/21/25 History perphenazine 4 mg tablet 4 mg PO HS 12/15/24 02/21/25 History phosphorated carbohydrate oral 30 ml PO DIRECTED PRN Nausea 12/15/24 02/21/25 History solution (Emetrol oral solution) polyethylene glycol 3350 17 17 g PO QAM 12/15/24 02/21/25 History gram/dose oral powder (Miralax) quetiapine 200 mg tablet (Seroquel) 200 mg PO HS 12/15/24 02/21/25 History quetiapine 50 mg tablet (Seroquel) 50 mg PO QAM 12/15/24 02/21/25 History sertraline 100 mg tablet (Zoloft) 100 mg PO QAM 12/15/24 02/21/25 History cholecalciferol (vitamin D3) 125 125 mcg PO QAM #30 tabs 12/24/24 02/21/25 Rx mcg (5,000 unit) tablet ferrous sulfate 325 mg (65 mg 325 mg PO BIDM #60 tabs 12/24/24 02/21/25 Rx iron) tablet,delayed release calcium polycarbophil 625 mg 625 mg PO QAM 01/05/25 02/21/25 History tablet (FiberCon) neomycin-bacitracn Zn-polymyxn 3.5 1 applic topical BID PRN abrasion 01/05/25 02/21/25 History mg-400 unit-5,000 unit top oint until resolved pkt (Triple Antibiotic) acetaminophen 500 mg tablet 1,000 mg PO Q4H PRN elevated 02/09/25 02/21/25 History temp/headache/mild pain fluoride (sodium) 1.1 % dental 1 applic dental BID 02/09/25 02/21/25 History cream (SF 5000 Plus) calcium 500 mg (as 1 tab PO QAM 02/21/25 02/21/25 History carbonate)-vitamin D3 5 mcg (200 unit) tablet dextromethorphan-guaifenesin 10 5 ml PO Q4 PRN Cough 02/21/25 02/21/25 History mg-200 mg/5 mL oral liquid nystatin 100,000 unit/gram topical 1 applic topical HS 02/21/25 02/21/25 History cream Patient History Medical History Candidal cystitis and urethritis Other abnormalities of gait and mobility Respiratory failure with hypoxia hx not known per facility, hospitalized [facility] december 2024. At current O2 sats while awake 95 % per facility. Bilateral pleural effusion Left ureteral calculus Complicated UTI (urinary tract infection) Osteoarthritis of hips, bilateral Autism Severe intellectual disability Nocturnal hypoxemia per facility while in hospital 12/2024, suspected sleep apnea, sats would drop at night. Denies occuring currently. Alcantara catheter in place History of sepsis hospitalized [facility] december 2024. Resolved per facility. History of pneumonia (12/2024) hospitalized at [facility]. december 2024. resolved per facility. Congenital hiatus hernia Umbilical hernia Hydronephrosis with renal and ureteral calculous obstruction Iron deficiency anemia Epilepsy Fatty (change of) liver, not elsewhere classified Psychomotor deficit Flat foot Other acquired deformity of toe toes Myopathy extraocular muscles right orbit Diplopia Other forms of scoliosis, lumbar region Pure hypercholesterolemia, unspecified Major depressive disorder, recurrent Hypermetropia, bilateral Diarrhea, unspecified Drug induced subacute dyskinesia Tremor, unspecified Restlessness and agitation GERD without esophagitis Deficiency of other vitamins Depression Constipation Unspecified cataract Lump of right breast Urinary incontinence Chronic pain Repeated falls facility denies fall in past 90 days. Astigmatism unspecified, right eye unspecified, left eye Chronic gum disease chronic gingivitis , plaque induced Dysphagia Anxiety disorder, unspecified OCD (obsessive compulsive disorder) Dementia unspecified Somnolence Polypharmacy Surgical History History of cystoscopy (~12/16/24) Cystoscopy with irrigation of bladder and catheter placement. Left ureteroscopy, Retrograde Pyelogram, Left Stent Placement, ureteral dilation, and aspiration of left kidney Grade 2 view, glidescope 3, ETT 7.0. Surgical history unknown Social History Smoking Status: Unknown if ever smoked Second Hand Exposure: No; Hx Alcohol Use: No Hx Substance Use: No Preferred Language: Thai Communication Ability: Unable Communication Ability Comment: pt. nonverbal, sometimes cooperates with air liaison and special staff Required: No Beliefs That Will Affect Care: None marital status: Single Current Living Situation: Other Current Living Situation Comment: assisted current occupational status: disabled Feels Safe at Home: Yes Assistive Devices: Walker and Wheelchair Physical Exam Constitutional: no acute distress Respiratory: normal respiratory effort; no respiratory distress Neurologic: awake nonverbal appears to have upper extremity tremor Results & Data Vital Signs (Past 12 Hours) Vital Signs Temp Pulse Pulse Resp BP BP Pulse Ox 04/05/25 14:30 72 16 158/66 H 96 04/05/25 14:28 72 04/05/25 12:21 72 21 148/75 H 95 04/05/25 10:27 83 04/05/25 10:10 37.1 C 79 154/65 H 94 O2 Del Method 04/05/25 14:30 Room Air 04/05/25 14:28 04/05/25 12:21 Room Air 04/05/25 10:27 04/05/25 10:10 PG Care Time/CCT Total # of Minutes Spent Total Time Spent with Patient: Total time spent is greater than 50% in coordination of care (as documented) at patient's floor/unit and/or counseling patient: Coding Level of Care Code 32650 IN/OBS CONSULT LVL 3,45M Diagnoses Nephrolithiasis N20.0 Ureteral stent present Z96.0 Acute UTI N39.0
--- NOTE | 2025-04-05 15:52 | XRay Report ---
KUB HISTORY: check previous stent placement COMPARISON STUDY: 03/05/2025 FINDINGS: Left ureteral stent is stable and appears well-positioned. There is moderate retained stool . No bowel obstruction. IMPRESSION: No acute findings. ACT 112: Negative or not required by law. The above report was generated using voice recognition software. It may contain grammatical, syntax o r spelling errors. Electronically signed by: Filiberto Smith M.D. 04/05/2025 3:50 PM
[2025-04-05] MEDS ORDERED: POLYETHYLENE (MIRALAX) 17 GM PACK PO PRN (16:43)
[2025-04-05] MEDS: CHLORHEXIDINE GLUCONATE 0.12% 480 ML MT SCH (18:48)
[2025-04-05] MEDS: FERROUS SULFATE 325 MG TAB PO SCH (18:48)
[2025-04-05] MEDS ORDERED: levETIRAcetam 500 MG TAB PO SCH (21:00)
[2025-04-05] MEDS: levETIRAcetam 500 MG TAB PO SCH (21:04)
[2025-04-05] MEDS: lamoTRIgine 25 MG TAB PO SCH (21:04)
[2025-04-05] MEDS: lamoTRIgine 100 MG TAB PO SCH (21:04)
[2025-04-05] MEDS: PERPHENAZINE 2 MG TAB PO SCH (21:05)
[2025-04-05] MEDS: PERPHENAZINE 4 MG TAB PO SCH (21:05)
[2025-04-05] MEDS: cloBAZam 5 MG TAB PO SCH (21:27)
[2025-04-06] MEDS: CEFEPIME 2000MG 2,000 MG/20 ML SYR IV SCH (00:51)
[2025-04-06] MEDS: CALCIUM 600MG + VIT D 400 IU TAB PO SCH (08:14)
[2025-04-06] MEDS: FAMOTIDINE 40 MG TABLET PO SCH (08:17)
[2025-04-06] MEDS: SERTRALINE HCL 100 MG TABLET PO SCH (08:18)
[2025-04-06] MEDS: AUSTEDO PO SCH (08:19)
[2025-04-06] MEDS: POLYETHYLENE (MIRALAX) 17 GM PACK PO SCH (09:14)
--- NOTE | 2025-04-06 11:46 | Neurology Consultation ---
Date of Consultation April 06, 2025 Assessment & Plan (1) Intellectual disability: - Continue antiepileptic medications clobazam 5 mg daily, lamotrigine 250 mg daily, Keppra 1500 mg twice daily - Patient eventually will need a MRI brain with and without contrast under sedation but this is a lower green party as her last seizure was in 2016 and well- controlled - No need for continuous video EEG as time as patient appears to be relatively at baseline - Monitor for recurrent seizure and continue treatment of UTI - Decrease perphenazine to 1 mg in the morning and 3 mg at night - Patient should follow-up with her outpatient psychiatrist, per caregiver appointment is on April 28, 2025 - Continue quetiapine 50 mg in the morning and 200 mg at night. Previous attempts to decrease quetiapine resulted in severe mood disturbance (pulling hair, manic, screaming) - Continue sertraline 100 mg daily. Previous attempt to decrease sertraline resulted patient not getting out of bed. It was recently decreased from 150 mg to 100 mg. - Continue deutetrabenazine 36 mg daily Thank you for this consult. Discussed with Dr. Yung Suárez. Teleneurology will be available as needed. Telehealth Consultation Telehealth Information Telehealth Information: I performed this visit using a real-time telehealth connection between my location and the patients location ([facility]). After connecting through interactive tele-video, patient was identified by name and date of and/or wristband check.Patient (or authorized healthcare asset protection representative) was informed that this was a telemedicine visit and it was being conducted confidentially over secure lines. My office door was closed and no one else was present in the room with me.Patient (or authorized healthcare asset protection representative) provided consent to proceed with the visit, expressed an understanding of privacy and security of the telemedicine visit, and gave permission to have a hospital asset protection representative in the room in order to assist with the visit and to conduct portions of the visit, as needed. I informed the patient (or authorized healthcare asset protection representative) that I reviewed their record and presented the opportunity for them to ask any questions regarding the visit today. The patient agreed to participate. History of Present Illness Reason for Consultation: fall from bed, concern for seizure Attending Physician: Kunal Suárez MD History of Present Illness Ines Delatorre is a 59-year-old nonverbal female with a past medical history of severe intellectual disability, tremors, seizure disorder, mood disorder, recurrent UTI with renal stent placement who presented to [facility] on 04/05/2025 after she was found on the floor in her bedroom by caregivers. The patient is unable to give any history secondary to severe intellectual disability and nonverbal. I called her caregiver Rochelle to obtain collateral history. Per the patient's caregiver, the patient was put to bed and approximately 5 minutes later, staff returned to find her on the floor. It was unclear if she rolled off the bed. Per report, the patient had her baseline level of tremors. At baseline, the patient has bilateral arm tremor, head tremor, and lip/jaw tremors. No evidence of tongue bite. The patient did urinate; normally she is incontinent of bladder and bowel function at night, continent during the day. Normally, the patient would be alert or sleepy but will arouse to voice. She is able to open her eyes, follows simple commands, and indicate her needs with a communication board. She is nonverbal at baseline. Per report, the patient has been in and out of the hospital since November and her new baseline has been largely bedbound. The patient's longtime caregiver was not concerned that she has been more altered than normal. In the emergency department UA was obtained which showed 4+ bacteria, 3+ leukocyte esterase, WBC >50. Per caregiver report, the patient's seizure was in 2015. She is maintained on lamotrigine, Keppra, and clobazam. Per caregiver she has not had an MRI of her brain due to inability to lay still. This would need to be done under sedation but is of less priority since her last seizure was in 2016. She has a history of mood disorder and follows closely with a psychiatrist. She missed her last psychiatry appointment due to hospitalization. She is currently on perphenazine, quetiapine, sertraline, and deutetrabenazine. Prior attempts to stop sertraline resulted in the patient not getting out of bed. Prior attempts to start quetiapine resulted in the patient being manic, up in her hair and screaming. She has been decreasing perphenazine slowly. I saw and examined the patient at bedside. She has bilateral upper extremity, head, lip, and jaw tremors which I understand to be her baseline. She is able to open her eyes and follow simple commands to raise her arms up. No concern for active seizure at this time. Allergies Allergy/AdvReac Type Severity Reaction Status Date / Time caffeine Allergy Unknown Unknown Verified 02/09/25 14:57 naproxen Allergy Unknown no rxn Verified 02/09/25 14:57 info listed NSAIDS (Non-Steroidal Allergy Unknown no rxn Verified 02/09/25 14:57 Anti-Inflamma listed stimulants AdvReac Unknown Uncoded 04/05/25 15:51 Home Medications Medication Instructions Recorded Confirmed Type acetaminophen 500 mg tablet 500 mg PO QAM chronic pain 12/15/24 04/05/25 History aloe vera 1 applic topical Q1H PRN Sunburn 12/15/24 04/05/25 History aluminum-mag hydroxide-simethicone 10 ml PO DIRECTED PRN 12/15/24 04/05/25 History 400 mg-400 mg-40 mg/5 mL oral susp Indigestion (Maalox Maximum Strength) bisacodyl 5 mg tablet,delayed 10 mg PO Q3D PRN Constipation 12/15/24 04/05/25 History release (Dulcolax (bisacodyl)) chlorhexidine gluconate 0.12 % 1 applic buccal TID chronic 12/15/24 04/05/25 His tory mouthwash gingivitis clobazam 10 mg tablet (Onfi) 5 mg PO HS 12/15/24 04/05/25 History deutetrabenazine 36 mg 36 mg PO DAILY 12/15/24 04/05/25 History tablet,extended release 24 hr (Austedo XR) docusate sodium 100 mg capsule 100 mg PO AMHS 12/15/24 04/05/25 History famotidine 40 mg tablet (Pepcid) 40 mg PO DAILY 12/15/24 04/05/25 History glycopyrrolate 1 mg tablet 1 mg PO TID excessive drooling 12/15/24 04/05/25 History (Robinul) hydrocortisone 1 % topical cream 1 applic topical TID PRN Rash 12/15/24 04/05/25 History lamotrigine 100 mg tablet 50 mg PO AMHS 12/15/24 04/05/25 History lamotrigine 200 mg tablet 200 mg PO AMHS 12/15/24 04/05/25 History (Lamictal) levetiracetam 1,000 mg tablet 1,000 mg PO BID 12/15/24 04/05/25 History levetiracetam 500 mg tablet 500 mg PO BID 12/15/24 04/05/25 History (Keppra) loperamide 2 mg capsule (Imodium 2 mg PO DIRECTED PRN Loose Stool 12/15/24 04/05/25 History A-D) multivitamin 1 tab PO QAM 12/15/24 04/05/25 History perphenazine 2 mg tablet 2 mg PO AMHS 12/15/24 04/05/25 History perphenazine 4 mg tablet 4 mg PO HS 12/15/24 04/05/25 History phosphorated carbohydrate oral 30 ml PO DIRECTED PRN Nausea 12/15/24 04/05/25 History solution (Emetrol oral solution) polyethylene glycol 3350 17 17 g PO QAM 12/15/24 04/05/25 History gram/dose oral powder (Miralax) quetiapine 200 mg tablet (Seroquel) 200 mg PO HS 12/15/24 04/05/25 History quetiapine 50 mg tablet (Seroquel) 50 mg PO QAM 12/15/24 04/05/25 History sertraline 100 mg tablet (Zoloft) 100 mg PO QAM 12/15/24 04/05/25 History cholecalciferol (vitamin D3) 125 125 mcg PO QAM #30 tabs 12/24/24 04/05/25 Rx mcg (5,000 unit) tablet ferrous sulfate 325 mg (65 mg 325 mg PO BIDM #60 tabs 12/24/24 04/05/25 Rx iron) tablet,delayed release calcium polycarbophil 625 mg 625 mg PO QAM 01/05/25 04/05/25 History tablet (FiberCon) neomycin-bacitracn Zn-polymyxn 3.5 1 applic topical BID PRN abrasion 01/05/25 04/05/25 History mg-400 unit-5,000 unit top oint until resolved pkt (Triple Antibiotic) acetaminophen 500 mg tablet 1,000 mg PO Q4H PRN elevated 02/09/25 04/05/25 History temp/headache/mild pain fluoride (sodium) 1.1 % dental 1 applic dental BID 02/09/25 04/05/25 History cream (SF 5000 Plus) calcium 500 mg (as 1 tab PO QAM 02/21/25 04/05/25 History carbonate)-vitamin D3 5 mcg (200 unit) tablet nystatin 100,000 unit/gram topical 1 applic topical HS 02/21/25 04/05/25 History cream dextromethorphan-guaifenesin 10 5 ml PO Q4 PRN Cough 04/05/25 04/05/25 History mg-200 mg/5 mL oral liquid metoprolol succinate 25 mg 25 mg PO DAILY 04/05/25 04/05/25 History tablet,extended release 24 hr phenylephrine HCl 10 mg tablet 10 mg PO Q4 PRN colds/runny nose 04/05/25 04/05/25 History Patient History Medical History Candidal cystitis and urethritis Other abnormalities of gait and mobility Respiratory failure with hypoxia hx not known per facility, hospitalized [facility] december 2024. At current O2 sats while awake 95 % per facility. Bilateral pleural effusion Left ureteral calculus Complicated UTI (urinary tract infection) Osteoarthritis of hips, bilateral Autism Severe intellectual disability Nocturnal hypoxemia per facility while in hospital 12/2024, suspected sleep apnea, sats would drop at night. Denies occuring currently. Alcantara catheter in place History of sepsis hospitalized [facility] december 2024. Resolved per facility. History of pneumonia (12/2024) hospitalized at [facility]. december 2024. resolved per facility. Congenital hiatus hernia Umbilical hernia Hydronephrosis with renal and ureteral calculous obstruction Iron deficiency anemia Epilepsy Fatty (change of) liver, not elsewhere classified Psychomotor deficit Flat foot Other acquired deformity of toe toes Myopathy extraocular muscles right orbit Diplopia Other forms of scoliosis, lumbar region Pure hypercholesterolemia, unspecified Major depressive disorder, recurrent Hypermetropia, bilateral Diarrhea, unspecified Drug induced subacute dyskinesia Tremor, unspecified Restlessness and agitation GERD without esophagitis Deficiency of other vitamins Depression Constipation Unspecified cataract Lump of right breast Urinary incontinence Chronic pain Repeated falls facility denies fall in past 90 days. Astigmatism unspecified, right eye unspecified, left eye Chronic gum disease chronic gingivitis , plaque induced Dysphagia Anxiety disorder, unspecified OCD (obsessive compulsive disorder) Dementia unspecified Somnolence Polypharmacy Surgical History History of cystoscopy (~12/16/24) Cystoscopy with irrigation of bladder and catheter placement. Left ureteroscopy, Retrograde Pyelogram, Left Stent Placement, ureteral dilation, and aspiration of left kidney Grade 2 view, glidescope 3, ETT 7.0. Surgical history unknown Social History Smoking Status: Never smoker Second Hand Exposure: No; Hx Alcohol Use: No Hx Substance Use: No Preferred Language: Ukrainian Communication Ability: Unable Communication Ability Comment: communicaion board Purification Supervisor Required: No Beliefs That Will Affect Care: None marital status: Single Current Living Situation: Personal Care Facility and Other Current Living Situation Comment: residential current occupational status: disabled Feels Safe at Home: Yes Assistive Devices: Walker, Wheelchair and Other Review of Systems Unable to obtain due to patient condition, severe intellectual disability Physical Exam Physical Exam: General Appearance: sleeping, arouses to stimulation HEENT: anicteric sclera, no scleral injection Lungs: respirations appear comfortable, no obvious increased work of breathing Extremities: No cyanosis or fingernail clubbing Skin: No rashes in exposed skin areas Objective Limited due to Televideo encounter Physical Exam: General Appearance: sleeping, arouses to stimulation Neurological Examination: Mental status: sleeping, arouses to stimulation, nonverbal, follows simple commands Cranial Nerves:. Midline gaze. Face symmetric. Sensory: responds to light touch. Motor:Absent pronator drift in upper extremities, 2/5 in bilateral lower extremities. Results & Data Vital Signs (Past 12 Hours) Vital Signs Temp Pulse Resp BP Pulse Ox O2 Del Method 04/06/25 07:55 37.2 C 78 16 144/64 H 93 Room Air Laboratory Results 04/05/25 11:48 Urine Culture - Pending Urine,Clean Catch 04/06/25 04/05/25 04/05/25 07:05 19:40 11:48 PT INR APTT PTT Ratio Sodium Potassium Chloride Carbon Dioxide Anion Gap BUN Creatinine Est Cr Clr Drug Dosing eGFR BUN/Creatinine Ratio Glucose Calcium Phosphorus Magnesium Total Bilirubin AST ALT Alkaline Phosphatase Troponin I High Sens 15.2 H D 10.9 Total Protein Albumin Globulin Albumin/Globulin Ratio Urine Color Yellow Urine Appearance Cloudy A Urine pH 8.5 H Ur Specific [place] 1.020 Urine Protein Negative Urine Glucose (UA) Negative Urine Ketones Negative Urine Blood Trace-intact H Urine Nitrite Negative Urine Bilirubin Negative Urine Urobilinogen Negative Ur Leukocyte Esterase 3+ H Urine WBC (Auto) >50 H Urine RBC (Auto) 0-2 U Hyaline Cast (Auto) 0-2 U Epithel Cells (Auto) 0-2 Urine Bacteria (Auto) 4+ H Urine Comment 04/05/25 11:29 PT 10.5 INR 1.0 APTT 25 PTT Ratio 0.9 Sodium 140 Potassium 3.7 Chloride 102 Carbon Dioxide 31 Anion Gap 7 BUN 10 Creatinine 0.95 Est Cr Clr Drug Dosing Not Reportable eGFR 69.02 BUN/Creatinine Ratio 10.5 Glucose 95 Calcium 9.0 Phosphorus 3.4 Magnesium 1.8 Total Bilirubin 0.2 AST 15 ALT 12 Alkaline Phosphatase 173 H Troponin I High Sens Total Protein 6.6 Albumin 3.4 Globulin 3.2 Albumin/Globulin Ratio 1.1 Urine Color Urine Appearance Urine pH Ur Specific [place] Urine Protein Urine Glucose (UA) Urine Ketones Urine Blood Urine Nitrite Urine Bilirubin Urine Urobilinogen Ur Leukocyte Esterase Urine WBC (Auto) Urine RBC (Auto) U Hyaline Cast (Auto) U Epithel Cells (Auto) Urine Bacteria (Auto) Urine Comment Diagnostic Findings Cervical Spine CT 04/05/25 10:51 CT SCAN OF THE CERVICAL SPINE CLINICAL HISTORY: Trauma. COMPARISON STUDY: Cervical spine CT July 25, 2023. FINDINGS: This exam is mildly compromised given difficulty positioning. There is reversal of the cervical lordosis. No acute cervical spine fractures are identified. The facet joints are intact. There is no prevertebral edema. There is mild disc space narrowing and extensive anterior osteophytosis of the cervical spine. There is mild multilevel facet arthrosis. IMPRESSION: 1. No acute cervical spine fracture or subluxation. 2. Exam mildly compromised given difficulty positioning. Electronically signed by: Henry Ayala M.D. 04/05/2025 12:[address] 04/05/25 10:51 CT head/brain wo con CLINICAL HISTORY: trauma. COMPARISON: 12/15/2024 FINDINGS: There is mild motion artifact. No intracranial hemorrhage seen. No mass effect, midline shift, or hydrocephalus. No skull fracture seen. There is stable mild mucosal thickening in the left maxillary sinus. Stable mild chronic small vessel ischemic changes. IMPRESSION: No acute findings. Electronically signed by: Filiberto Smith M.D. 04/05/2025 12:17 PM Medications Administered Home Medications Medication Instructions Recorded Confirmed Last Taken acetaminophen 500 mg tablet 500 mg PO QAM chronic pain 12/15/24 04/05/25 01/16/25 19:30 aloe vera 1 applic topical Q1H PRN Sunburn 12/15/24 04/05/25 Unknown aluminum-mag hydroxide-simethicone 10 ml PO DIRECTED PRN 12/15/24 04/05/25 Unknown 400 mg-400 mg-40 mg/5 mL oral susp Indigestion (Maalox Maximum Strength) bisacodyl 5 mg tablet,delayed 10 mg PO Q3D PRN Constipation 12/15/24 04/05/25 Unknown release (Dulcolax (bisacodyl)) chlorhexidine gluconate 0.12 % 1 applic buccal TID chronic 12/15/24 04/05/25 01/16/25 20:00 mouthwash gingivitis clobazam 10 mg tablet (Onfi) 5 mg PO HS 12/15/24 04/05/25 01/16/25 19:30 deutetrabenazine 36 mg 36 mg PO DAILY 12/15/24 04/05/25 01/16/25 08:30 tablet,extended release 24 hr (Austedo XR) docusate sodium 100 mg capsule 100 mg PO AMHS 12/15/24 04/05/25 01/16/25 19:30 famotidine 40 mg tablet (Pepcid) 40 mg PO DAILY 12/15/24 04/05/25 01/16/25 19:30 glycopyrrolate 1 mg tablet 1 mg PO TID excessive drooling 12/15/24 04/05/25 01/16/25 19:30 (Robinul) hydrocortisone 1 % topical cream 1 applic topical TID PRN Rash 12/15/24 04/05/25 Unknown lamotrigine 100 mg tablet 50 mg PO AMHS 12/15/24 04/05/25 01/16/25 19:30 lamotrigine 200 mg tablet 200 mg PO AMHS 12/15/24 04/05/25 01/16/25 19:30 (Lamictal) levetiracetam 1,000 mg tablet 1,000 mg PO BID 12/15/24 04/05/25 01/16/25 19:30 levetiracetam 500 mg tablet 500 mg PO BID 12/15/24 04/05/25 01/16/25 19:30 (Keppra) loperamide 2 mg capsule (Imodium 2 mg PO DIRECTED PRN Loose Stool 12/15/24 04/05/25 Unknown A-D) multivitamin 1 tab PO QAM 12/15/24 04/05/25 01/16/25 08:30 perphenazine 2 mg tablet 2 mg PO AMHS 12/15/24 04/05/25 01/16/25 19:30 perphenazine 4 mg tablet 4 mg PO HS 12/15/24 04/05/25 01/16/25 19:30 phosphorated carbohydrate oral 30 ml PO DIRECTED PRN Nausea 12/15/24 04/05/25 Unknown solution (Emetrol oral solution) polyethylene glycol 3350 17 17 g PO QAM 12/15/24 04/05/25 01/16/25 08:30 gram/dose oral powder (Miralax) quetiapine 200 mg tablet (Seroquel) 200 mg PO HS 12/15/24 04/05/25 01/16/25 19:30 quetiapine 50 mg tablet (Seroquel) 50 mg PO QAM 12/15/24 04/05/25 01/16/25 08:30 sertraline 100 mg tablet (Zoloft) 100 mg PO QAM 12/15/24 04/05/25 01/16/25 08:30 cholecalciferol (vitamin D3) 125 125 mcg PO QAM #30 tabs 12/24/24 04/05/25 01/16/25 08:30 mcg (5,000 unit) tablet ferrous sulfate 325 mg (65 mg 325 mg PO BIDM #60 tabs 12/24/24 04/05/25 01/16/25 17:00 iron) tablet,delayed release calcium polycarbophil 625 mg 625 mg PO QAM 01/05/25 04/05/25 01/16/25 08:30 tablet (FiberCon) neomycin-bacitracn Zn-polymyxn 3.5 1 applic topical BID PRN abrasion 01/05/25 04/05/25 Unknown mg-400 unit-5,000 unit top oint until resolved pkt (Triple Antibiotic) acetaminophen 500 mg tablet 1,000 mg PO Q4H PRN elevated 02/09/25 04/05/25 Unknown temp/headache/mild pain fluoride (sodium) 1.1 % dental 1 applic dental BID 02/09/25 04/05/25 Unknown cream (SF 5000 Plus) calcium 500 mg (as 1 tab PO QAM 02/21/25 04/05/25 Unknown carbonate)-vitamin D3 5 mcg (200 unit) tablet nystatin 100,000 unit/gram topical 1 applic topical HS 02/21/25 04/05/25 Unknown cream dextromethorphan-guaifenesin 10 5 ml PO Q4 PRN Cough 04/05/25 04/05/25 Unknown mg-200 mg/5 mL oral liquid metoprolol succinate 25 mg 25 mg PO DAILY 04/05/25 04/05/25 Unknown tablet,extended release 24 hr phenylephrine HCl 10 mg tablet 10 mg PO Q4 PRN colds/runny nose 04/05/25 04/05/25 Unknown Active Medications Generic Name Dose Route Start Last Admin Trade Name Freq PRN Reason Stop Dose Admin Calcium/Vitamin D 1 tab 04/06/25 09:00 04/06/25 08:14 Calcium 600mg + Vit D 400 Iu Tab PO 05/06/25 08:59 1 tab QAM SWAPNA Administration Chlorhexidine Gluconate 15 ml 04/05/25 17:15 04/06/25 08:15 Chlorhexidine Gluconate 0.12% 480 Ml MT 05/05/25 17:14 15 ml TID SWAPNA Administration Clobazam 5 mg 04/05/25 21:00 04/05/25 21:27 Clobazam 5 Mg Tab PO 05/05/25 20:59 5 mg HS SWAPNA Administration Deutetrabenazine 1 each 04/06/25 09:00 04/06/25 08:19 [place] [Patient Own Med] PO 05/06/25 08:59 1 each DAILY SWAPNA Administration Famotidine 40 mg 04/06/25 09:00 04/06/25 08:17 Famotidine 40 Mg Tablet PO 05/06/25 08:59 40 mg DAILY SWAPNA Administration Ferrous Sulfate 325 mg 04/05/25 17:00 04/06/25 08:17 Ferrous Sulfate 325 Mg Tab PO 05/05/25 16:59 325 mg BIDM SWAPNA Administration Cefepime HCl 2,000 mg in 20 mls @ 5 mls/min 04/06/25 01:00 04/06/25 00:51 Maxipime 2000mg IV 04/16/25 00:59 5 mls/min Q12H SWAPNA Administration Protocol Lamotrigine 50 mg 04/05/25 21:00 04/06/25 08:16 Lamotrigine 25 Mg Tab PO 05/05/25 20:59 50 mg AMHS SWAPNA Administration Protocol Lamotrigine 200 mg 04/05/25 21:00 04/06/25 08:16 Lamotrigine 100 Mg Tab PO 05/05/25 20:59 200 mg AMHS SWAPNA Administration Protocol Levetiracetam 1,500 mg 04/05/25 21:00 04/06/25 08:15 Levetiracetam 500 Mg Tab PO 05/05/25 20:59 1,500 mg BID SWAPNA Administration Perphenazine 2 mg 04/05/25 21:00 04/06/25 09:14 Perphenazine 2 Mg Tab PO 05/05/25 20:59 2 mg AMHS SWAPNA Administration Perphenazine 4 mg 04/05/25 21:00 04/05/25 21:05 Perphenazine 4 Mg Tab PO 05/05/25 20:59 4 mg HS SWAPNA Administration Polyethylene Glycol 17 gm 04/06/25 09:00 04/06/25 09:14 Polyethylene (Miralax) 17 Gm Pack PO 05/06/25 08:59 17 gm QAM SWAPNA Administration Quetiapine Fumarate 50 mg 04/06/25 09:00 04/06/25 08:17 Quetiapine Fumarate 25 Mg Tablet PO 05/06/25 08:59 50 mg QAM SWAPNA Administration Quetiapine Fumarate 200 mg 04/05/25 21:00 04/05/25 21:04 Quetiapine Fumarate 200 Mg Tab PO 05/05/25 20:59 200 mg HS SWAPNA Administration Sertraline HCl 100 mg 04/06/25 09:00 04/06/25 08:18 Sertraline Hcl 100 Mg Tablet PO 05/06/25 08:59 100 mg QAM SWAPNA Administration
--- NOTE | 2025-04-06 12:08 | Urology Progress Note ---
Date of Service April 06, 2025 Assessment & Plan (1) Ureteral stent present: (2) Nephrolithiasis: (3) UTI (urinary tract infection): Plan 59 yo female who is admitted after a fall and with concern for UTI Afebrile, VSS Labs reviewed: Wbc 10.8, Hemoglobin 9.1, Cr 0.95 Urine culture pending KUB showed the left ureteral stent in appropriate position She is incontinent, has external catheter No acute intervention warranted Continue antibiotics and follow culture Continue supportive care She is currently scheduled for her stent removal outpatient 04/26/[address] Hernández If any signs of clinical worsening, would recommend CT abd pelvis Urology will follow Admission and Anticipated Discharge Date Admission Date: April 05, 2025 Subjective Pt seen at bedside today. Awake and resting in bed. NAD. Non verbal. Incontinent of urine, has external catheter. Review of Systems Constitutional: as per Subjective / HPI Genitourinary: as per Subjective / HPI Physical Exam Constitutional: no acute distress Respiratory: normal respiratory effort; no respiratory distress Neurologic: awake non verbal Results & Data Vital Signs (Past 12 Hours) Vital Signs Temp Pulse Resp BP Pulse Ox O2 Del Method 04/06/25 07:55 37.2 C 78 16 144/64 H 93 Room Air PG Care Time/CCT Total # of Minutes Spent Total Time Spent with Patient: Total time spent is greater than 50% in coordination of care (as documented) at patient's floor/unit and/or counseling patient: Coding Level of Care Code 11986 SUB INP/OBS CARE 2/35MIN Diagnoses Ureteral stent present Z96.0 Nephrolithiasis N20.0 UTI (urinary tract infection) N30.00 Hematuria presence: without hematuria Urinary tract infection type: acute cystitis (3) UTI (urinary tract infection) Hematuria presence: without hematuria Urinary tract infection type: acute cystitis Qualified Code(s): N30.00 - Acute cystitis without hematuria
--- NOTE | 2025-04-06 13:18 | Infectious Disease Consult ---
Date of Service April 06, 2025 Telehealth Information I performed this visit using a real-time telehealth connection between my location and the patients location ([facility]). After connecting through interactive tele-video, patient was identified by name and date of and/or wristband check.Patient (or authorized healthcare telephone service representative) was informed that this was a telemedicine visit and it was being conducted confidentially over secure lines. My office door was closed and no o ne else was present in the room with me.Patient (or authorized healthcare telephone service representative) provided consent to proceed with the visit, expressed an understanding of privacy and security of the telemedicine visit, and gave permission to have a hospital telephone service representative in the room in order to assist with the visit and to conduct portions of the visit, as needed. I informed the patient (or authorized healthcare telephone service representative) that I reviewed their record and presented the opportunity for them to ask any questions regarding the visit today. The patient agreed to participate. Assessment & Plan (1) UTI (urinary tract infection): Plan: It is not clear whether the patient truly has a UTI because she is not able to verbalize any symptoms. I reviewed the patient's previous history with the patient's caregiver and reviewed notes from OSH ID providers. Given the situation, I think we should continue to treat with cefepime *as if* she had a true UTI. Adjust ABX as needed based on culture results. Note that the patient has had several different episodes of Pseudomonas bacteruria in the past - with varying susceptibilties. I would have a low threshold to change cefepime to empiric Zerbaxa if the patient has any sign of clinical worsening. Also of note, we should probably cover the patient's urinary isolate until after her upcoming procedure. All orders are deferred to the primary/requesting service. I do not have an ID pharmacist available - ensure that your pharmacist reviews the ABX doses. Recommendations were communicated to and/or discussed with the primary/requesting service. These recommendations are not final. For subsequent recommendations, use the on- call schedule to find out which ID provider is covering your facility. History of Present Illness History of Present Illness HPI was very limited as the patient was nonverbal and unable to provide a history. After discussing with the patient's caregiver, it seems as if the patient suffered a fall prior to admission. As part of the workup for the fall, a urine culture was collected (according to the history that I was provided, the patient did not have any indwelling catheters in the urinary system prior to admission). The patient was started on empiric cefepime. Allergies Allergy/AdvReac Type Severity Reaction Status Date / Time caffeine Allergy Unknown Unknown Verified 02/09/25 14:57 naproxen Allergy Unknown no rxn Verified 02/09/25 14:57 info listed NSAIDS (Non-Steroidal Allergy Unknown no rxn Verified 02/09/25 14:57 Anti-Inflamma listed stimulants AdvReac Unknown Uncoded 04/05/25 15:51 Home Medications Medication Instructions Recorded Confirmed Type acetaminophen 500 mg tablet 500 mg PO QAM chronic pain 12/15/24 04/05/25 History aloe vera 1 applic topical Q1H PRN Sunburn 12/15/24 04/05/25 History aluminum-mag hydroxide-simethicone 10 ml PO DIRECTED PRN 12/15/24 04/05/25 History 400 mg-400 mg-40 mg/5 mL oral susp Indigestion (Maalox Maximum Strength) bisacodyl 5 mg tablet,delayed 10 mg PO Q3D PRN Constipation 12/15/24 04/05/25 Hi story release (Dulcolax (bisacodyl)) chlorhexidine gluconate 0.12 % 1 applic buccal TID chronic 12/15/24 04/05/25 History mouthwash gingivitis clobazam 10 mg tablet (Onfi) 5 mg PO HS 12/15/24 04/05/25 History deutetrabenazine 36 mg 36 mg PO DAILY 12/15/24 04/05/25 History tablet,extended release 24 hr (Austedo XR) docusate sodium 100 mg capsule 100 mg PO AMHS 12/15/24 04/05/25 History famotidine 40 mg tablet (Pepcid) 40 mg PO DAILY 12/15/24 04/05/25 History glycopyrrolate 1 mg tablet 1 mg PO TID excessive drooling 12/15/24 04/05/25 History (Robinul) hydrocortisone 1 % topical cream 1 applic topical TID PRN Rash 12/15/24 04/05/25 History lamotrigine 100 mg tablet 50 mg PO AMHS 12/15/24 04/05/25 History lamotrigine 200 mg tablet 200 mg PO AMHS 12/15/24 04/05/25 History (Lamictal) levetiracetam 1,000 mg tablet 1,000 mg PO BID 12/15/24 04/05/25 History levetiracetam 500 mg tablet 500 mg PO BID 12/15/24 04/05/25 History (Keppra) loperamide 2 mg capsule (Imodium 2 mg PO DIRECTED PRN Loose Stool 12/15/24 04/05/25 History A-D) multivitamin 1 tab PO QAM 12/15/24 04/05/25 History perphenazine 2 mg tablet 2 mg PO AMHS 12/15/24 04/05/25 History perphenazine 4 mg tablet 4 mg PO HS 12/15/24 04/05/25 History phosphorated carbohydrate oral 30 ml PO DIRECTED PRN Nausea 12/15/24 04/05/25 History solution (Emetrol oral solution) polyethylene glycol 3350 17 17 g PO QAM 12/15/24 04/05/25 History gram/dose oral powder (Miralax) quetiapine 200 mg tablet (Seroquel) 200 mg PO HS 12/15/24 04/05/25 History quetiapine 50 mg tablet (Seroquel) 50 mg PO QAM 12/15/24 04/05/25 History sertraline 100 mg tablet (Zoloft) 100 mg PO QAM 12/15/24 04/05/25 History cholecalciferol (vitamin D3) 125 125 mcg PO QAM #30 tabs 12/24/24 04/05/25 Rx mcg (5,000 unit) tablet ferrous sulfate 325 mg (65 mg 325 mg PO BIDM #60 tabs 12/24/24 04/05/25 Rx iron) tablet,delayed release calcium polycarbophil 625 mg 625 mg PO QAM 01/05/25 04/05/25 History tablet (FiberCon) neomycin-bacitracn Zn-polymyxn 3.5 1 applic topical BID PRN abrasion 01/05/25 04/05/25 History mg-400 unit-5,000 unit top oint until resolved pkt (Triple Antibiotic) acetaminophen 500 mg tablet 1,000 mg PO Q4H PRN elevated 02/09/25 04/05/25 History temp/headache/mild pain fluoride (sodium) 1.1 % dental 1 applic dental BID 02/09/25 04/05/25 History cream (SF 5000 Plus) calcium 500 mg (as 1 tab PO QAM 02/21/25 04/05/25 History carbonate)-vitamin D3 5 mcg (200 unit) tablet nystatin 100,000 unit/gram topical 1 applic topical HS 02/21/25 04/05/25 History cream dextromethorphan-guaifenesin 10 5 ml PO Q4 PRN Cough 04/05/25 04/05/25 History mg-200 mg/5 mL oral liquid metoprolol succinate 25 mg 25 mg PO DAILY 04/05/25 04/05/25 History tablet,extended release 24 hr phenylephrine HCl 10 mg tablet 10 mg PO Q4 PRN colds/runny nose 04/05/25 04/05/25 History Patient History Medical History Candidal cystitis and urethritis Other abnormalities of gait and mobility Respiratory failure with hypoxia hx not known per facility, hospitalized [facility] december 2024. At current O2 sats while awake 95 % per facility. Bilateral pleural effusion Left ureteral calculus Complicated UTI (urinary tract infection) Osteoarthritis of hips, bilateral Autism Severe intellectual disability Nocturnal hypoxemia per facility while in hospital 12/2024, suspected sleep apnea, sats would drop at night. Denies occuring currently. Alcantara catheter in place History of sepsis hospitalized [facility] december 2024. Resolved per facility. History of pneumonia (12/2024) hospitalized at [facility]. december 2024. resolved per facility. Congenital hiatus hernia Umbilical hernia Hydronephrosis with renal and ureteral calculous obstruction Iron deficiency anemia Epilepsy Fatty (change of) liver, not elsewhere classified Psychomotor deficit Flat foot Other acquired deformity of toe toes Myopathy extraocular muscles right orbit Diplopia Other forms of scoliosis, lumbar region Pure hypercholesterolemia, unspecified Major depressive disorder, recurrent Hypermetropia, bilateral Diarrhea, unspecified Drug induced subacute dyskinesia Tremor, unspecified Restlessness and agitation GERD without esophagitis Deficiency of other vitamins Depression Constipation Unspecified cataract Lump of right breast Urinary incontinence Chronic pain Repeated falls facility denies fall in past 90 days. Astigmatism unspecified, right eye unspecified, left eye Chronic gum disease chronic gingivitis , plaque induced Dysphagia Anxiety disorder, unspecified OCD (obsessive compulsive disorder) Dementia unspecified Somnolence Polypharmacy Surgical History History of cystoscopy (~12/16/24) Cystoscopy with irrigation of bladder and catheter placement. Left ureteroscopy, Retrograde Pyelogram, Left Stent Placement, ureteral dilation, and aspiration of left kidney Grade 2 view, glidescope 3, ETT 7.0. Surgical history unknown Social History Smoking Status: Never smoker Second Hand Exposure: No; Hx Alcohol Use: No Hx Substance Use: No Preferred Language: Hong Konger Communication Ability: Unable Communication Ability Comment: communicaion board Motor Expert Required: No Beliefs That Will Affect Care: None marital status: Single Current Living Situation: Personal Care Facility and Other Current Living Situation Comment: long-term current occupational status: disabled Feels Safe at Home: Yes Assistive Devices: Walker, Wheelchair and Other Review of Systems See above. Physical Exam Vitals: see EMR Exam limited due to constraints of telemedicine Gen/Constitutional: appears at stated age, NAD, nontoxic Eyes: sclera anicteric, no conjunctival injection ENT: MMM, trachea midline Card: appears to be well-perfused Resp: not tachypneic, nml effort, symmetric chest rise, no accessory muscle use Derm: no visible diaphoresis, no visible rash, no visible jaundice Results & Data Vital Signs (Past 12 Hours) Vital Signs Temp Pulse Resp BP Pulse Ox O2 Del Method 04/06/25 07:55 37.2 C 78 16 144/64 H 93 Room Air Laboratory Results SEE EMR Diagnostic Findings SEE EMR - UCX "in process" (1) UTI (urinary tract infection) Hematuria presence: without hematuria Urinary tract infection type: acute cystitis Qualified Code(s): N30.00 - Acute cystitis without hematuria
--- NOTE | 2025-04-06 18:06 | Hospitalist Progress Note ---
Date of Service April 06, 2025 Assessment & Plan (1) Nephrolithiasis: (2) Ureteral stent present: (3) Nonverbal: (4) Complicated UTI (urinary tract infection): (5) Severe intellectual disability: (6) Fatty (change of) liver, not elsewhere classified: (7) Tremor, unspecified: Plan 59 yo female with pmhx of severe intellectual disability c/b epilepsy, nonverbal status, fecal/urinary incontinence, s/p recent urethral stent placement, fatty liver disease, GERD, OCD, IAN, who presents for a fall from the [facility]. #Fall #Epilepsy -unclear cause of fall from bed, likely mechanical in nature -per caregiver patient currently at baseline, concern is that UTI cause fall and they do not want her to become septic -lower on differential includes stroke (patient at baseline), arrythmia (unlikely to cause fall from bed), seizures (does have epilepsy so possible) Plan: -gentle hydration -neurology consult, appreciate recs for consideration of seizure and polypharmacy -decrease dose of perphenazine #Lateral T Wave Inversions -new from 2017 -unclear if any symptoms Plan: -trend more troponins -check echo #Severe Bacteriuria #Ureteral Stent -unclear if patient has symptoms, hemodynamically stable at this time, no sepsis criteria -UA appears to be significantly infected in setting of chronic colonization Plan: -urology consult, appreciate recs -follow up outpatient -ID consult, appreciate recs -continue cefepime, await sensitivities -f/u cultures #Severe Intellectual Disability #OCD #IAN -continue home meds austedo xr, perphenazine, seroquel, zoloft -continue miralax, bisacodyl suppository prn for constipation, -mouth care ordered -continue keppra and lamictal I spent a total of50 minutes in direct patient care, including [id number] time with the patient and/or family, reviewing medical records, ordering and reviewing diagnostic tests, and coordinating care with other healthcare providers. This time includes: history taking, physical examination, medical decision making, counseling, ECG interpretation, imaging interpretation, lab interpretation, orders, and education, excluding time spent in the performance of separately billed services. Admission and Anticipated Discharge Date Admission Date: April 05, 2025 Subjective Patient seen and examined at bedside. Patient nonverbal at this time. Review of Systems Review of Systems: -unable to endorse due to mental status Physical Exam Physical Exam: Gen: A&O 0 NAD HEENT: NCAT, EOMI, not icteric. External ears normal. No rhinorrhea. Dry mucous membranes. Neck: Supple, full range of motion, no observable masses, No meningeal sign. Lungs: No Respiratory distress. CV: RRR, no edema. Abdomen: Soft, nondistended, No rebound tenderness. MSK: No joint swelling, no redness. Skin: No rashes, petechiae, lesions. Neuro: chronic tremors bilaterally, baseline per caregiver Results & Data Results & Data Vital Signs (Past 12 Hours) Vital Signs Temp Pulse Pulse Resp BP BP Pulse Ox 04/06/25 15:24 36.9 C 84 18 138/63 95 04/06/25 07:55 37.2 C 78 16 144/64 H 93 O2 Del Method 04/06/25 15:24 Room Air 04/06/25 07:55 Room Air Medications Administered Calcium/Vitamin D (Calcium 600mg + Vit D 400 Iu Tab) 1 tab PO QAM SWAPNA Stop: 05/06/25 08:59 Last Admin: 04/06/25 08:14 Dose: 1 tab Documented By: RAFAL Chlorhexidine Gluconate (Chlorhexidine Gluconate 0.12% 480 Ml) 15 ml MT TID SWAPNA Stop: 05/05/25 17:14 Last Admin: 04/06/25 13:28 Dose: Not Given Documented By: Admin: 04/06/25 08:15 Dose: 15 ml Documented By: Admin: 04/05/25 21:04 Dose: 15 ml Documented By: Admin: 04/05/25 18:48 Dose: Not Given Documented By: RAFAL Clobazam (Clobazam 5 Mg Tab) 5 mg PO HS SWAPNA Stop: 05/05/25 20:59 Last Admin: 04/05/25 21:27 Dose: 5 mg Documented By: JESSIE Deutetrabenazine (Austedo [Patient Own Med]) 1 each PO DAILY SWAPNA Stop: 05/06/25 08:59 Last Admin: 04/06/25 08:19 Dose: 1 each Documented By: RAFAL Famotidine (Famotidine 40 Mg Tablet) 40 mg PO DAILY SWAPNA Stop: 05/06/25 08:59 Last Admin: 04/06/25 08:17 Dose: 40 mg Documented By: CS Ferrous Sulfate (Ferrous Sulfate 325 Mg Tab) 325 mg PO BIDM [facility] Stop: 05/05/25 16:59 Last Admin: 04/06/25 16:16 Dose: 325 mg Documented By: Admin: 04/06/25 08:17 Dose: 325 mg Documented By: Admin: 04/05/25 18:48 Dose: 325 mg Documented By: CS Cefepime HCl (Maxipime 2000mg) 2,000 mg in 20 mls @ 5 mls/min IV Q12H [facility]; Protocol Stop: 04/16/25 00:59 Last Admin: 04/06/25 12:29 Dose: 5 mls/min Documented By: Admin: 04/06/25 00:51 Dose: 5 mls/min Documented By: PNM Lamotrigine (Lamotrigine 25 Mg Tab) 50 mg PO [facility]; Protocol Stop: 05/05/25 20:59 Last Admin: 04/06/25 08:16 Dose: 50 mg Documented By: Admin: 04/05/25 21:04 Dose: 50 mg Documented By: PNM Lamotrigine (Lamotrigine 100 Mg Tab) 200 mg PO [facility]; Protocol Stop: 05/05/25 20:59 Last Admin: 04/06/25 08:16 Dose: 200 mg Documented By: Admin: 04/05/25 21:04 Dose: 200 mg Documented By: PNM Levetiracetam (Levetiracetam 500 Mg Tab) 1,500 mg PO BID [facility] Stop: 05/05/25 20:59 Last Admin: 04/06/25 08:15 Dose: 1,500 mg Documented By: Admin: 04/05/25 21:04 Dose: 1,500 mg Documented By: PNM Polyethylene Glycol (Polyethylene (Miralax) 17 Gm Pack) [facility] Stop: 05/06/25 08:59 Last Admin: 04/06/25 09:14 Dose: 17 gm Documented By: RAFAL Quetiapine Fumarate (Quetiapine Fumarate 25 Mg Tablet) [facility] Stop: 05/06/25 08:59 Last Admin: 04/06/25 08:17 Dose: 50 mg Documented By: RAFAL Quetiapine Fumarate (Quetiapine Fumarate 200 Mg Tab) 200 mg PO HS [facility] Stop: 05/05/25 20:59 Last Admin: 04/05/25 21:04 Dose: 200 mg Documented By: JESSIE Sertraline HCl (Sertraline Hcl 100 Mg Tablet) 100 mg PO QAM SWAPNA Stop: 05/06/25 08:59 Last Admin: 04/06/25 08:18 Dose: 100 mg Documented By: RAFAL
[2025-04-06] MEDS: PERPHENAZINE 2 MG TAB PO SCH (20:20)
[2025-04-06] MEDS ORDERED: PERPHENAZINE 4 MG TAB PO SCH (21:00)
[2025-04-07 04:42] LABS: Hematocrit (blood only) 26.6 % (37.0-47.0); Hemoglobin 8.5 g/dl (12.0-16.0); Mean Corpuscular Hemoglobin 25.8 pg (25.0-34.0); Mean Corpuscular Volume 80.6 fL (80.0-100.0); Platelet Count 415 K/uL (130-400); RDW Standard Deviation 50.4 fL (36.4-46.3); Red Blood Count 3.30 M/uL (4.20-5.40); White Blood Count 9.82 K/ul (4.8-10.8)
[2025-04-07 04:59] LABS: Anion Gap 6.0 (3-11); Blood Urea Nitrogen 7.0 mg/dl (6-23); Calcium 8.6 mg/dl (8.6-10.3); Carbon Dioxide 30.0 mmol/L (21-32); Chloride 102.0 mmol/L (98-107); Creatinine Clr Calc Pharmacy 54.4 ml/min; Glucose 97.0 mg/dl (70-99(Fasting)); Potassium 3.7 mmol/L (3.5-5.1); Sodium 138.0 mmol/L (136-145)
[2025-04-07] MEDS: PERPHENAZINE 2 MG TAB PO SCH (09:00)
--- NOTE | 2025-04-07 09:29 | XRay Report ---
EXAM: XR KUB/Abdomen 1 view CLINICAL HISTORY: Vomiting, r/o obstruction. TECHNIQUE: X-ray images of the abdomen were obtained in supine positions. COMPARISON: Prior X-ray dated 04/05/2025 for comparison. FINDINGS: Gas Pattern: Distension of the ascending colon seen, less prominent compared to prior No evidence of bowel obstruction or significant distention. Mild fecal loading in colon. Soft Tissues: Soft tissues of the abdomen appear normal without evidence of masses or calcifications. Liver, spleen, and kidneys are of normal size and position. Stable position of left DJ stent. Spondylotic changes in lumbar spine. Degenerative changes in bilateral hip joints. IMPRESSION: 1. Distension of the ascending colon seen, less prominent compared to prior 2. Stable position of left DJ stent. 3. No other interval changes Electronically signed by Evangelist Delatorre 04-07-2025 09:29 AM
--- NOTE | 2025-04-07 11:44 | Urology Progress Note ---
Date of Service April 07, 2025 Assessment & Plan (1) Ureteral stent present: (2) Nephrolithiasis: (3) UTI (urinary tract infection): Plan 59 yo female who is admitted after a fall and with concern for UTI Afebrile, VSS No leukocytosis and normal renal function Urine culture preliminary proteus KUB showed the left ureteral stent in appropriate position She is incontinent, has external catheter No acute intervention warranted Continue antibiotics and follow culture Continue supportive care Plan for stent removal outpatient 04/26/[address] Hernández as scheduled Urology will sign-off. Please contact us with any further questions, concerns, or changes in patient status. Admission and Anticipated Discharge Date Admission Date: April 05, 2025 Subjective Pt seen at bedside today. Awake and resting in bed. NAD. Non verbal. Nurse at bedside. Incontinent of urine, has external catheter. Review of Systems Constitutional: as per Subjective / HPI Genitourinary: as per Subjective / HPI Physical Exam Constitutional: no acute distress Respiratory: normal respiratory effort; no respiratory distress Neurologic: awake non verbal Results & Data Vital Signs (Past 12 Hours) Vital Signs Temp Pulse Resp BP Pulse Ox O2 Del Method 04/07/25 08:28 37.0 C 79 18 153/79 H 95 Room Air 04/07/25 07:20 Room Air PG Care Time/CCT Total # of Minutes Spent Total Time Spent with Patient: Total time spent is greater than 50% in coordination of care (as documented) at patient's floor/unit and/or counseling patient: Coding Level of Care Code 37455 SUB INP/OBS CARE 2/35MIN Diagnoses Ureteral stent present Z96.0 Nephrolithiasis N20.0 UTI (urinary tract infection) N30.00 Hematuria presence: without hematuria Urinary tract infection type: acute cystitis (3) UTI (urinary tract infection) Hematuria presence: without hematuria Urinary tract infection type: acute cystitis Qualified Code(s): N30.00 - Acute cystitis without hematuria
--- NOTE | 2025-04-07 14:25 | Hospitalist Progress Note ---
Date of Service April 07, 2025 Assessment & Plan (1) Nephrolithiasis: (2) Ureteral stent present: (3) Nonverbal: (4) Complicated UTI (urinary tract infection): (5) Severe intellectual disability: (6) Fatty (change of) liver, not elsewhere classified: (7) Tremor, unspecified: Plan per previous hospitalists notes with addendum: 59 yo female with pmhx of severe intellectual disability c/b epilepsy, nonverbal status, fecal/urinary incontinence, s/p recent urethral stent placement, fatty liver disease, GERD, OCD, IAN, who presents for a fall from the [facility]. #Fall #Epilepsy -unclear cause of fall from bed, likely mechanical in nature -per caregiver patient currently at baseline, concern is that UTI cause fall and they do not want her to become septic -lower on differential includes stroke (patient at baseline), arrythmia (unlikely to cause fall from bed), seizures (does have epilepsy so possible) Plan: -gentle hydration -neurology consult, appreciate recs for consideration of seizure and polypharmacy -decrease dose of perphenazine 04/07 no signs of breakthrough seizure so far continue to monitor closely #Lateral T Wave Inversions -new from 2017 -unclear if any symptoms Plan: -trend more troponins -check echo #Severe Bacteriuria #Ureteral Stent -unclear if patient has symptoms, hemodynamically stable at this time, no sepsis criteria -UA appears to be significantly infected in setting of chronic colonization Plan: -urology consult, appreciate recs -follow up outpatient -ID consult, appreciate recs -continue cefepime, await sensitivities -f/u cultures 04/07: Urine culture: (+) Proteus deescalate Cefepime to Ceftriaxone plan to d/c on PO Augmentin, to be continued until planned stent removal has been completed on 04/26/25 per ID recommendation #Episode of Vomiting KUB: no obstruction, minimal fecal load clear breath sounds BL resume diet, always with assistance vomiting from UTI? Cefepime? continue supportive care, monitor closely #Severe Intellectual Disability #OCD #IAN -continue home meds austedo xr, perphenazine, seroquel, zoloft -continue miralax, bisacodyl suppository prn for constipation, -mouth care ordered -continue keppra and lamictal plan of care discussed with RN Wad Blanking Press Adjuster from [facility] Judy in detail and at length all questions answered she is understanding, agreeable, comfortable with the plan of care Admission and Anticipated Discharge Date Admission Date: April 05, 2025 Subjective resting in bed, comfortable RN occupational health nurse supervisor Judy from [facility] at the bedside states patient is somewhat off today- not as cooperative as baseline patient is awake, alert, not in distress, waves when greeted does not appear to be in pain, or distress had nonbloody vomiting overnight no other new symptoms per Judy oracle applications developerKAREEM Null Review of Systems Review of Systems: all noted and negative except for above Physical Exam Physical Exam: General- awake, alert, nonverbal, not in distress,breathing with no effort or accessory muscle use Eyes- anicteric Neck- no JVD Lungs- clear breath sounds bilaterally, no crackles/wheezing Heart- normal rate, regular rhythm; no murmurs Abdomen- normal bowel sounds, nondistended, soft, no tenderness Extremities- no pretibial edema, no calf tenderness (+) hand tremor L- chronic as per [facility] staff Neuro- alert,non verbal, no new gross focal neurologic deficits Skin- warm & dry Results & Data Results & Data Vital Signs (Past 12 Hours) Vital Signs Temp Pulse Resp BP Pulse Ox O2 Del Method 04/07/25 08:28 37.0 C 79 18 153/79 H 95 Room Air 04/07/25 07:20 Room Air all noted and reviewed including below
[2025-04-07] MEDS: cefTRIAXone SODIUM 2,000 MG/50 ML BAG IV SCH (20:15)
[2025-04-08 06:44] LABS: Hematocrit (blood only) 30.5 % (37.0-47.0); Hemoglobin 9.7 g/dl (12.0-16.0); Mean Corpuscular Hemoglobin 25.8 pg (25.0-34.0); Mean Corpuscular Volume 81.1 fL (80.0-100.0); Platelet Count 458 K/uL (130-400); RDW Standard Deviation 50.4 fL (36.4-46.3); Red Blood Count 3.76 M/uL (4.20-5.40); White Blood Count 8.42 K/ul (4.8-10.8)
[2025-04-08 07:09] LABS: Anion Gap 6.0 (3-11); Blood Urea Nitrogen 7.0 mg/dl (6-23); Calcium 8.7 mg/dl (8.6-10.3); Carbon Dioxide 32.0 mmol/L (21-32); Chloride 100.0 mmol/L (98-107); Creatinine Clr Calc Pharmacy 58.4 ml/min; Glucose 92.0 mg/dl (70-99(Fasting)); Potassium 3.6 mmol/L (3.5-5.1); Sodium 138.0 mmol/L (136-145)
--- NOTE | 2025-04-08 10:33 | Hospitalist Progress Note ---
Date of Service April 08, 2025 Assessment & Plan (1) Nephrolithiasis: (2) Ureteral stent present: (3) Nonverbal: (4) Complicated UTI (urinary tract infection): (5) Severe intellectual disability: (6) Fatty (change of) liver, not elsewhere classified: (7) Tremor, unspecified: Plan per previous hospitalists notes with addendum: 59 yo female with pmhx of severe intellectual disability c/b epilepsy, nonverbal status, fecal/urinary incontinence, s/p recent urethral stent placement, fatty liver disease, GERD, OCD, IAN, who presents for a [facility] from [facility]. #Fall #Epilepsy -unclear cause of fall from bed, likely mechanical in nature -per caregiver patient currently at baseline, concern is that UTI cause fall and they do not want her to become septic -lower on differential includes stroke (patient at baseline), arrythmia (unlikely to cause fall from bed), seizures (does have epilepsy so possible) Plan: -gentle hydration -neurology consult, appreciate recs for consideration of seizure and polypharmacy -decrease dose of perphenazine 04/08 no signs of breakthrough seizure continue to monitor closely #Lateral T Wave Inversions -new from 2017 -unclear if any symptoms troponin 10.9--> 15.2--> 11.1 echo unable to be performed yesterday #Severe Bacteriuria #Ureteral Stent -unclear if patient has symptoms, hemodynamically stable at this time, no sepsis criteria -UA appears to be significantly infected in setting of chronic colonization Plan: -urology consult, appreciate recs -follow up outpatient -ID consult, appreciate recs -continue cefepime, await sensitivities -f/u cultures 04/07: Urine culture: (+) Proteus deescalate Cefepime to Ceftriaxone d/c on PO Augmentin, to be continued until planned stent removal has been completed on 04/26/25 per ID recommendation will need probiotics x 1 month at least encourage to drink plenty of fluids #Episode of Vomiting KUB: no obstruction, minimal fecal load clear breath sounds BL resume diet, always with assistance vomiting from UTI? Cefepime? continue supportive care, monitor closely -- resolved #Severe Intellectual Disability #OCD #IAN -continue home meds austedo xr, perphenazine, seroquel, zoloft -continue miralax, bisacodyl suppository prn for constipation, -mouth care ordered -continue keppra and lamictal Admission and Anticipated Discharge Date Admission Date: April 05, 2025 Subjective seen resting in bed, comfortable blanket over head, but pulled down when I requested her no signs of pain, shortness of breath, distress discussed with RN states patient had an uneventful night no vomiting was able to take pills and applesauce this morning no other issues Review of Systems Review of Systems: all noted and negative except for above Physical Exam Physical Exam: General- not in distress,breathing with no effort or accessory muscle use Eyes- anicteric Neck- no JVD Lungs- clear breath sounds bilaterally, no crackles/wheezing Heart- normal rate, regular rhythm; no murmurs Abdomen- normal bowel sounds, nondistended, soft, no tenderness Extremities- no pretibial edema, no calf tenderness Neuro- alert; no gross focal neurologic deficits Skin- warm & dry Results & Data Results & Data Vital Signs (Past 12 Hours) Vital Signs Temp Pulse Resp BP Pulse Ox O2 Del Method 04/08/25 09:43 Room Air 04/08/25 07:21 36.9 C 71 18 169/74 H 100 Room Air all noted and reviewed including below
--- NOTE | 2025-04-08 14:52 | Electrocardiogram Report ---
Test Reason : Blood Pressure : */* mmHG Vent. Rate : 86 BPM Atrial Rate : 86 BPM P-R Int : 162 ms QRS Dur : 82 ms QT Int : 326 ms P-R-T Axes : 45 -31 122 degrees QTcB Int : 390 ms Normal sinus rhythm Left axis deviation T wave abnormality, consider lateral ischemia Abnormal ECG When compared with ECG of 27-Feb-2025 14:40, Premature ventricular complexes are no longer Present T wave inversion now evident in Lateral leads Confirmed by Ethan Temple ([id number]) on 04/08/2025 2:52:07 PM Referred By: REFERRED SELF Confirmed By: Ethan Temple
--- NOTE | 2025-04-08 17:39 | Hospitalist Progress Note ---
Date of Service April 08, 2025 Assessment & Plan (1) Nephrolithiasis: (2) Ureteral stent present: (3) Nonverbal: (4) Complicated UTI (urinary tract infection): (5) Severe intellectual disability: (6) Fatty (change of) liver, not elsewhere classified: (7) Tremor, unspecified: Plan per previous hospitalists notes with addendum: 59 yo female with pmhx of severe intellectual disability c/b epilepsy, nonverbal status, fecal/urinary incontinence, s/p recent urethral stent placement, fatty liver disease, GERD, OCD, IAN, who presents for a fall from the [facility]. #Fall #Epilepsy -unclear cause of fall from bed, likely mechanical in nature -per caregiver patient currently at baseline, concern is that UTI cause fall and they do not want her to become septic -lower on differential includes stroke (patient at baseline), arrythmia (unlikely to cause fall from bed), seizures (does have epilepsy so possible) Plan: -gentle hydration -neurology consult, appreciate recs for consideration of seizure and polypharmacy -decrease dose of perphenazine 04/08 no signs of breakthrough seizure continue to monitor closely #Lateral T Wave Inversions -new from 2017 -unclear if any symptoms troponin 10.9--> 15.2--> 11.1 echo unable to be performed yesterday #Severe Bacteriuria #Ureteral Stent -unclear if patient has symptoms, hemodynamically stable at this time, no sepsis criteria -UA appears to be significantly infected in setting of chronic colonization Plan: -urology consult, appreciate recs -follow up outpatient -ID consult, appreciate recs -continue cefepime, await sensitivities -f/u cultures 04/07: Urine culture: (+) Proteus deescalate Cefepime to Ceftriaxone d/c on PO Augmentin, to be continued until planned stent removal has been completed on 04/26/25 per ID recommendation will need probiotics x 1 month at least encourage to drink plenty of fluids #Episode of Vomiting KUB: no obstruction, minimal fecal load clear breath sounds BL resume diet, always with assistance vomiting from UTI? Cefepime? continue supportive care, monitor closely -- resolved #Severe Intellectual Disability #OCD #IAN -continue home meds austedo xr, perphenazine, seroquel, zoloft -continue miralax, bisacodyl suppository prn for constipation, -mouth care ordered -continue keppra and lamictal Admission and Anticipated Discharge Date Admission Date: April 05, 2025 Results & Data Results & Data Vital Signs (Past 12 Hours) Vital Signs Temp Pulse Resp BP Pulse Ox O2 Del Method 04/08/25 15:22 36.5 C 84 16 146/72 H 96 Room Air 04/08/25 09:43 Room Air 04/08/25 07:21 36.9 C 71 18 169/74 H 100 Room Air
[2025-04-09 10:23] LABS: Hematocrit (blood only) 29.7 % (37.0-47.0); Hemoglobin 9.4 g/dl (12.0-16.0); Mean Corpuscular Hemoglobin 25.9 pg (25.0-34.0); Mean Corpuscular Volume 81.8 fL (80.0-100.0); Platelet Count 486 K/uL (130-400); RDW Standard Deviation 50.7 fL (36.4-46.3); Red Blood Count 3.63 M/uL (4.20-5.40); White Blood Count 8.57 K/ul (4.8-10.8)
[2025-04-09 10:42] LABS: Anion Gap 7.0 (3-11); Blood Urea Nitrogen 14.0 mg/dl (6-23); Calcium 8.8 mg/dl (8.6-10.3); Carbon Dioxide 31.0 mmol/L (21-32); Chloride 99.0 mmol/L (98-107); Creatinine Clr Calc Pharmacy 52.0 ml/min; Glucose 120.0 mg/dl (70-99(Fasting)); Potassium 3.6 mmol/L (3.5-5.1); Sodium 137.0 mmol/L (136-145)
--- NOTE | 2025-04-09 18:35 | Hospitalist Progress Note ---
Date of Service April 09, 2025 Assessment & Plan (1) Nephrolithiasis: (2) Ureteral stent present: (3) Nonverbal: (4) Complicated UTI (urinary tract infection): (5) Severe intellectual disability: (6) Fatty (change of) liver, not elsewhere classified: (7) Tremor, unspecified: Plan per previous hospitalists notes with addendum: 59 yo female with pmhx of severe intellectual disability c/b epilepsy, nonverbal status, fecal/urinary incontinence, s/p recent urethral stent placement, fatty liver disease, GERD, OCD, IAN, who presents for a [facility] from [facility]. #Fall #Epilepsy -unclear cause of fall from bed, likely mechanical in nature -per caregiver patient currently at baseline, concern is that UTI cause fall and they do not want her to become septic -lower on differential includes stroke (patient at baseline), arrythmia (unlikely to cause fall from bed), seizures (does have epilepsy so possible) Plan: -gentle hydration -neurology consult, appreciate recs for consideration of seizure and polypharmacy -decrease dose of perphenazine 04/09 no signs of breakthrough seizure continue to monitor closely #Lateral T Wave Inversions -new from 2017 -unclear if any symptoms troponin 10.9--> 15.2--> 11.1 echo noted, no wall motion abnormalities #Severe Bacteriuria #Ureteral Stent -unclear if patient has symptoms, hemodynamically stable at this time, no sepsis criteria -UA appears to be significantly infected in setting of chronic colonization Plan: -urology consult, appreciate recs -follow up outpatient -ID consult, appreciate recs -continue cefepime, await sensitivities -f/u cultures 04/07: Urine culture: (+) Proteus deescalate Cefepime to Ceftriaxone d/c on PO Augmentin, to be continued until planned stent removal has been completed on 04/26/25 per ID recommendation will need probiotics x 1 month at least encourage to drink plenty of fluids #Episode of Vomiting KUB: no obstruction, minimal fecal load clear breath sounds BL resume diet, always with assistance vomiting from UTI? Cefepime? continue supportive care, monitor closely -- resolved #Severe Intellectual Disability #OCD #IAN -continue home meds austedo xr, perphenazine, seroquel, zoloft -continue miralax, bisacodyl suppository prn for constipation, -mouth care ordered -continue keppra and lamictal Admission and Anticipated Discharge Date Admission Date: April 05, 2025 Subjective discussed with RN no acute events overnight seen resting in bed, comfortable awake, alert non verbal no signs of pain, distress declines pills this morning no other issues Review of Systems Review of Systems: all noted and negative except for above Physical Exam Physical Exam: General- oriented x 0, not in distress, breathing with no effort or accessory muscle use Eyes- anicteric Neck- no JVD Lungs- clear breath sounds bilaterally Heart- normal rate, regular rhythm; no murmurs Abdomen- normal bowel sounds, nondistended, soft, nontender Extremities- no pretibial edema, no calf tenderness Neuro- alert, oriented x0; no gross focal neurologic deficits Skin- warm & dry Results & Data Results & Data Vital Signs (Past 12 Hours) Vital Signs Temp Pulse Resp BP Pulse Ox O2 Del Method 04/09/25 15:35 36.4 C L 87 15 146/70 H 92 Room Air 04/09/25 10:42 36.3 C L 83 18 147/78 H 94 Room Air 04/09/25 07:34 Room Air all noted and reviewed including below
--- NOTE | 2025-04-09 21:13 | Communication Note ---
Date of Service: April 09, 2025 Patient ripped out IV site as per RN. RN requesting oral antibiotic in place of ceftriaxone for UTI. Start oral Augmentin course as indicated in a.m. provider note..
[2025-04-09] MEDS: AMOXICILLIN/CLAVULANATE 875 MG TAB PO SCH (21:36)
--- NOTE | 2025-04-10 19:06 | Hospitalist Progress Note ---
Date of Service April 10, 2025 Assessment & Plan (1) Nephrolithiasis: (2) Ureteral stent present: (3) Nonverbal: (4) Complicated UTI (urinary tract infection): (5) Severe intellectual disability: (6) Fatty (change of) liver, not elsewhere classified: (7) Tremor, unspecified: Plan per previous hospitalists notes with addendum: 59 yo female with pmhx of severe intellectual disability c/b epilepsy, nonverbal status, fecal/urinary incontinence, s/p recent urethral stent placement, fatty liver disease, GERD, OCD, IAN, who presents for a fall from the [facility]. #Fall #Epilepsy -unclear cause of fall from bed, likely mechanical in nature -per caregiver patient currently at baseline, concern is that UTI cause fall and they do not want her to become septic -lower on differential includes stroke (patient at baseline), arrythmia (unlikely to cause fall from bed), seizures (does have epilepsy so possible) Plan: -gentle hydration -neurology consult, appreciate recs for consideration of seizure and polypharmacy -decrease dose of perphenazine 04/10 no signs of breakthrough seizure since admission continue to monitor closely #Lateral T Wave Inversions -new from 2017 -unclear if any symptoms troponin 10.9--> 15.2--> 11.1 echo noted, no wall motion abnormalities #Severe Bacteriuria #Ureteral Stent -unclear if patient has symptoms, hemodynamically stable at this time, no sepsis criteria -UA appears to be significantly infected in setting of chronic colonization Plan: -urology consult, appreciate recs -follow up outpatient -ID consult, appreciate recs -continue cefepime, await sensitivities -f/u cultures 04/10: Urine culture: (+) Proteus deescalate Cefepime to Ceftriaxone d/c on PO Augmentin, to be continued until planned stent removal has been completed on 04/26/25 per ID recommendation will need probiotics x 1 month at least encourage to drink plenty of fluids - transitioned to Augmentin as IV site was pulled Boost ordered for supplement #Episode of Vomiting KUB: no obstruction, minimal fecal load clear breath sounds BL resume diet, always with assistance vomiting from UTI? Cefepime? continue supportive care, monitor closely -- resolved #Severe Intellectual Disability #OCD #IAN -continue home meds austedo xr, perphenazine, seroquel, zoloft -continue miralax, bisacodyl suppository prn for constipation, -mouth care ordered -continue keppra and lamictal Admission and Anticipated Discharge Date Admission Date: April 05, 2025 Subjective discussed with RN patient unfortunately declined to take AM meds with RN and also breakfast awaiting the [facility] staff to help with med administration and meals seen resting in bed, comfortable not in distress no signs of pain, respiratory symptoms no nausea/vomiting overnight as per RN no other symptoms Review of Systems Review of Systems: all noted and negative except for above Physical Exam Physical Exam: General- awake, alert, not in distress, breathing with no effort or accessory muscle use Eyes- anicteric Neck- no JVD Lungs- clear breath sounds bilaterally, no crackles/wheezing Heart- normal rate, regular rhythm; no murmurs Abdomen- normal bowel sounds, nondistended, soft, no tenderness Extremities- no pretibial edema, no calf tenderness Neuro- alert, no new gross focal neurologic deficits Skin- warm & dry Results & Data Results & Data Vital Signs (Past 12 Hours) Vital Signs Temp Pulse Resp BP Pulse Ox O2 Del Method 04/10/25 08:30 36.8 C 83 18 172/77 H 98 Room Air all noted and reviewed including below
[2025-04-11] MEDS ORDERED: POT PHOSPHATE MONOBASIC W/ SOD TAB PO SCH
[2025-04-11] MEDS ORDERED: POTASSIUM CHLORIDE 10 MEQ TABCR PO SCH
--- NOTE | 2025-04-11 11:58 | Hospitalist Progress Note ---
Date of Service April 11, 2025 Assessment & Plan (1) Nephrolithiasis: (2) Ureteral stent present: (3) Nonverbal: (4) Complicated UTI (urinary tract infection): (5) Severe intellectual disability: (6) Fatty (change of) liver, not elsewhere classified: (7) Tremor, unspecified: Plan per previous hospitalists notes with addendum: 59 yo female with pmhx of severe intellectual disability c/b epilepsy, nonverbal status, fecal/urinary incontinence, s/p recent urethral stent placement, fatty liver disease, GERD, OCD, IAN, who presents for a fall from the [facility]. #Fall #Epilepsy -unclear cause of fall from bed, likely mechanical in nature -per caregiver patient currently at baseline, concern is that UTI cause fall and they do not want her to become septic -lower on differential includes stroke (patient at baseline), arrythmia (unlikely to cause fall from bed), seizures (does have epilepsy so possible) Plan: -gentle hydration -neurology consult, appreciate recs for consideration of seizure and polypharmacy -decreased dose of perphenazine 04/11 no signs of breakthrough seizure since admission continue to monitor closely #Lateral T Wave Inversions -new from 2017 -unclear if any symptoms troponin 10.9--> 15.2--> 11.1 echo: left ventricular wall motion is normal left ventricular systolic function is normal left ventricular ejection fraction = 55-60% right ventricle is normal in size and function severe focal calcification of the posterior mitral valve annulus mild prolapse of the posteriors mitral valve leaflet mild mitral regurgitation grade 1 diastolic dysfunction compared to the report of previous study 12/18/2024, severe mitral annular calcification also noted at that time Mild mitral regurgitaion now noted #Severe Bacteriuria #Ureteral Stent -unclear if patient has symptoms, hemodynamically stable at this time, no sepsis criteria -UA appears to be significantly infected in setting of chronic colonization Plan: -urology consult, appreciate recs -follow up outpatient -ID consult, appreciate recs 04/10: Urine culture: (+) Proteus deescalated Cefepime to Ceftriaxone d/c on PO Augmentin, to be continued until planned stent removal has been completed on 04/26/25 per ID recommendation will need probiotics x 1 month at least encourage to drink plenty of fluids - transitioned to Augmentin as IV site was pulled Boost ordered for supplement 04/11 discussed with RN Judy, plan to cover with Augmentin from discharge day 04/11 to 3 days after planned Ureteral stent procedure on Apr 26 hence, last day for Augmentin 875mg BID is April 29, 2025 continue probiotics for 6 weeks recommend to check complete metabolic profile weekly while on Augmentin course #Episode of Vomiting KUB: no obstruction, minimal fecal load clear breath sounds BL resume diet, always with assistance vomiting from UTI? Cefepime? continue supportive care, monitor closely -- resolved #Severe Intellectual Disability #OCD #IAN -continue home meds austedo xr, perphenazine (decreased dose), seroquel, zoloft -continue miralax, bisacodyl suppository prn for constipation, -mouth care ordered -continue keppra and lamictal Disposition d/c to the [facility] today Admission and Anticipated Discharge Date Admission Date: April 05, 2025 Subjective seen resting in bed, comfortable awake, alert no signs of pain, distress no other symptoms per sox analyst of Systems Review of Systems: all noted and negative except for above Physical Exam Physical Exam: General- awake, alert, not in distress, breathing with no effort or accessory muscle use Eyes- anicteric Neck- no JVD Lungs- clear breath sounds bilaterally, no crackles or wheezing Heart- normal rate, regular rhythm; no murmurs Abdomen- normal bowel sounds, nondistended, soft, nontender Extremities- no pretibial edema, no calf tenderness Neuro- alert; no gross focal neurologic deficits Skin- warm & dry Results & Data Results & Data Vital Signs (Past 12 Hours) Vital Signs Temp Pulse Pulse Resp BP Pulse Ox O2 Del Method 04/11/25 07:42 36.8 C 96 H 16 164/82 H 94 Room Air 04/11/25 01:32 37.0 C 99 H all noted and reviewed including below
--- NOTE | 2025-04-11 12:24 | Discharge Summary ---
Discharge Summary Date of Service April 11, 2025 Principal Dx & Hospital Course #1 = Principal Diagnosis (1) Nephrolithiasis: (2) Ureteral stent present: (3) Nonverbal: (4) Complicated UTI (urinary tract infection): (5) Severe intellectual disability: (6) Fatty (change of) liver, not elsewhere classified: (7) Tremor, unspecified: Plan per previous hospitalists notes with addendum: 59 yo female with pmhx of severe intellectual disability c/b epilepsy, nonverbal status, fecal/urinary incontinence, s/p recent urethral stent placement, fatty liver disease, GERD, OCD, IAN, who presents for a fall from the [facility]. #Fall #Epilepsy -unclear cause of fall from bed, likely mechanical in nature -per caregiver patient currently at baseline, concern is that UTI cause fall and they do not want her to become septic -lower on differential includes stroke (patient at baseline), arrythmia (unlikely to cause fall from bed), seizures (does have epilepsy so possible) Plan: -gentle hydration -neurology consult, appreciate recs for consideration of seizure and polypharmacy -decreased dose of perphenazine 04/11 no signs of breakthrough seizure since admission continue to monitor closely #Lateral T Wave Inversions -new from 2017 -unclear if any symptoms troponin 10.9--> 15.2--> 11.1 echo: left ventricular wall motion is normal left ventricular systolic function is normal left ventricular ejection fraction = 55-60% right ventricle is normal in size and function severe focal calcification of the posterior mitral valve annulus mild prolapse of the posteriors mitral valve leaflet mild mitral regurgitation grade 1 diastolic dysfunction compared to the report of previous study 12/18/2024, severe mitral annular calcification also noted at that time Mild mitral regurgitaion now noted #Severe Bacteriuria #Ureteral Stent -unclear if patient has symptoms, hemodynamically stable at this time, no sepsis criteria -UA appears to be significantly infected in setting of chronic colonization Plan: -urology consult, appreciate recs -follow up outpatient -ID consult, appreciate recs 04/10: Urine culture: (+) Proteus deescalated Cefepime to Ceftriaxone d/c on PO Augmentin, to be continued until planned stent removal has been completed on 04/26/25 per ID recommendation will need probiotics x 1 month at least encourage to drink plenty of fluids - transitioned to Augmentin as IV site was pulled Boost ordered for supplement 04/11 discussed with RN Judy, plan to cover with Augmentin from discharge day 04/11 to 3 days after planned Ureteral stent procedure on Apr 26 hence, last day for Augmentin 875mg BID is April 29, 2025 continue probiotics for 6 weeks recommend to check complete metabolic profile weekly while on Augmentin course #Episode of Vomiting KUB: no obstruction, minimal fecal load clear breath sounds BL resume diet, always with assistance vomiting from UTI? Cefepime? continue supportive care, monitor closely -- resolved #Severe Intellectual Disability #OCD #IAN -continue home meds austedo xr, perphenazine (decreased dose), seroquel, zoloft -continue miralax, bisacodyl suppository prn for constipation, -mouth care ordered -continue keppra and lamictal Disposition d/c to the [facility] today Notes For Next Care Provider Medication Changes From Visit per medical reconcilation sheet Admission HPI Per Admitting Provider 59 yo female with pmhx of severe intellectual disability c/b epilepsy, nonverbal status, fecal/urinary incontinence, s/p recent urethral stent placement, fatty liver disease, GERD, OCD, IAN, who presents for a fall from the [facility]. Had recent admission 02/2025 for urosepsis now s/p stent placement and abx. In the ED, given cefepime, labwork, urology requested admission to prevent decompensation of possible UTI, admitted to medicine. Patient seen and examined at bedside. Patient nonverbal. [facility] caregiver present and provides entire history. Patient was found fallen off of her bed. Yesterday appeared spacy and "out of it." Otherwise she appears to be similar to how she always is. States that they are concerned she has a UTI and would like it evaluated and stabilized before discharge. Patient will selectively refuse medications. Understands conversations but not able to verbalize any response. Occasionally walks but is unlikely to do so here per caregiver. Things important to her care: chocolate pudding for giving meds, does not like socks, will not drink plain water likes flavored water. Aunt Mary in chart is medical power of real estate associate attorney, if unable to be reached [employer] of [facility] able to consent for procedures. Full code. Admission Exam Per Admitting Provider Gen: A&O 0 NAD HEENT: NCAT, EOMI, not icteric. External ears normal. No rhinorrhea. Dry mucous membranes. Neck: Supple, full range of motion, no observable masses, No meningeal sign. Lungs: No Respiratory distress. CV: RRR, no edema. Abdomen: Soft, nondistended, No rebound tenderness. MSK: No joint swelling, no redness. Skin: No rashes, petechiae, lesions. Neuro: chronic tremors bilaterally, baseline per caregiver Discharge Exam General- awake, alert, not in distress, breathing with no effort or accessory muscle use Eyes- anicteric Neck- no JVD Lungs- clear breath sounds bilaterally, no crackles or wheezing Heart- normal rate, regular rhythm; no murmurs Abdomen- normal bowel sounds, nondistended, soft, nontender Extremities- no pretibial edema, no calf tenderness Neuro- alert; no gross focal neurologic deficits Skin- warm & dry Updated Medication List Medication Instructions Recorded Confirmed Type acetaminophen 500 mg tablet 500 mg PO QAM chronic pain 12/15/24 04/05/25 History aloe vera 1 applic topical Q1H PRN Sunburn 12/15/24 04/05/25 History aluminum-mag hydroxide-simethicone 10 ml PO DIRECTED PRN 12/15/24 04/05/25 History 400 mg-400 mg-40 mg/5 mL oral susp Indigestion (Maalox Maximum Strength) bisacodyl 5 mg tablet,delayed 10 mg PO Q3D PRN Constipation 12/15/24 04/05/25 History release (Dulcolax (bisacodyl)) chlorhexidine gluconate 0.12 % 1 applic buccal TID chronic 12/15/24 04/05/25 History mouthwash gingivitis clobazam 10 mg tablet (Onfi) 5 mg PO HS 12/15/24 04/05/25 History deutetrabenazine 36 mg 36 mg PO DAILY 12/15/24 04/05/25 History tablet,extended release 24 hr (Austedo XR) docusate sodium 100 mg capsule 100 mg PO AMHS 12/15/24 04/05/25 History famotidine 40 mg tablet (Pepcid) 40 mg PO DAILY 12/15/24 04/05/25 History glycopyrrolate 1 mg tablet 1 mg PO TID excessive drooling 12/15/24 04/05/25 History (Robinul) hydrocortisone 1 % topical cream 1 applic topical TID PRN Rash 12/15/24 04/05/25 History lamotrigine 100 mg tablet 50 mg PO AMHS 12/15/24 04/05/25 History lamotrigine 200 mg tablet 200 mg PO AMHS 12/15/24 04/05/25 History (Lamictal) levetiracetam 1,000 mg tablet 1,000 mg PO BID 12/15/24 04/05/25 History levetiracetam 500 mg tablet 500 mg PO BID 12/15/24 04/05/25 History (Keppra) loperamide 2 mg capsule (Imodium 2 mg PO DIRECTED PRN Loose Stool 12/15/24 04/05/25 History A-D) multivitamin 1 tab PO QAM 12/15/24 04/05/25 History perphenazine 2 mg tablet 2 mg PO AMHS 12/15/24 04/05/25 History perphenazine 4 mg tablet 4 mg PO HS 12/15/24 04/05/25 History phosphorated carbohydrate oral 30 ml PO DIRECTED PRN Nausea 12/15/24 04/05/25 History solution (Emetrol oral solution) polyethylene glycol 3350 17 17 g PO QAM 12/15/24 04/05/25 History gram/dose oral powder (Miralax) quetiapine 200 mg tablet (Seroquel) 200 mg PO HS 12/15/24 04/05/25 History quetiapine 50 mg tablet (Seroquel) 50 mg PO QAM 12/15/24 04/05/25 History sertraline 100 mg tablet (Zoloft) 100 mg PO QAM 12/15/24 04/05/25 History cholecalciferol (vitamin D3) 125 125 mcg PO QAM #30 tabs 12/24/24 04/05/25 Rx mcg (5,000 unit) tablet ferrous sulfate 325 mg (65 mg 325 mg PO BIDM #60 tabs 12/24/24 04/05/25 Rx iron) tablet,delayed release calcium polycarbophil 625 mg 625 mg PO QAM 01/05/25 04/05/25 History tablet (FiberCon) neomycin-bacitracn Zn-polymyxn 3.5 1 applic topical BID PRN abrasion 01/05/25 04/05/25 History mg-400 unit-5,000 unit top oint until resolved pkt (Triple Antibiotic) acetaminophen 500 mg tablet 1,000 mg PO Q4H PRN elevated 02/09/25 04/05/25 History temp/headache/mild pain fluoride (sodium) 1.1 % dental 1 applic dental BID 02/09/25 04/05/25 History cream (SF 5000 Plus) calcium 500 mg (as 1 tab PO QAM 02/21/25 04/05/25 History carbonate)-vitamin D3 5 mcg (200 unit) tablet nystatin 100,000 unit/gram topical 1 applic topical HS 02/21/25 04/05/25 History cream dextromethorphan-guaifenesin 10 5 ml PO Q4 PRN Cough 04/05/25 04/05/25 History mg-200 mg/5 mL oral liquid metoprolol succinate 25 mg 25 mg PO DAILY 04/05/25 04/05/25 History tablet,extended release 24 hr phenylephrine HCl 10 mg tablet 10 mg PO Q4 PRN colds/runny nose 04/05/25 04/05/25 History Lactobacillus acidoph-L.bulgaricus 1 tab PO DAILY 30 days #30 tabs 04/08/25 Rx 1 million cell tablet (Floranex) amoxicillin 875 mg-potassium 1 tab PO BID 17 days #34 tabs 04/08/25 Rx clavulanate 125 mg tablet perphenazine 2 mg tablet 1 mg (1/2 x 2 mg) PO QAM 30 days 04/08/25 Rx #15 tabs perphenazine 2 mg tablet 3 mg (1.5 x 2 mg) PO HS 30 days 04/08/25 Rx #45 tabs amoxicillin 875 mg-potassium 1 tab PO BID 3 days #6 tabs 04/11/25 Rx clavulanate 125 mg tablet Hospital Stay Data Consultations 04/05/25 13:34 ED Decision to Admit Stat 04/05/25 14:16 Consult Neurology Routine 04/05/25 14:19 Consult Urology Routine 04/05/25 14:24 Consult Infectious Diseases Routine Diagnostic Imagining Performed 04/05/25 10:51 CT cervical spine wo con Stat CT head/brain wo con Stat Laboratory Results WBC 8.57 K/ul (4.8-10.8) 04/09/25 10:03 RBC 3.63 M/uL (4.20-5.40) L 04/09/25 10:03 Hgb 9.4 g/dl (12.0-16.0) L 04/09/25 10:03 Hct 29.7 % (37.0-47.0) L 04/09/25 10:03 MCV 81.8 fL (80.0-100.0) 04/09/25 10:03 MCH 25.9 pg (25.0-34.0) 04/09/25 10:03 MCHC 31.6 g/dL (32.0-36.0) L 04/09/25 10:03 RDW Std Deviation 50.7 fL (36.4-46.3) H 04/09/25 10:03 RDW Coeff of Nic 17.0 % (11.5-14.5) H 04/09/25 10:03 Plt Count 486 K/uL (130-400) H 04/09/25 10:03 MPV 9.7 fL (9.4-12.4) 04/09/25 10:03 Immature Gran % (Auto) 0.4 % 04/05/25 11:29 Neut % (Auto) 69.9 % 04/05/25 11:29 Lymph % (Auto) 18.2 % 04/05/25 11:29 [place] % (Auto) 9.9 % 04/05/25 11:29 Eos % (Auto) 1.1 % 04/05/25 11:29 Baso % (Auto) 0.5 % 04/05/25 11:29 Neut # (Auto) 7.55 K/uL (1.40-6.50) H 04/05/25 11:29 Lymph # (Auto) 1.97 K/uL (1.20-3.40) 04/05/25 11:29 [place] # (Auto) 1.07 K/uL (0.11-0.59) H 04/05/25 11:29 Eos # (Auto) 0.12 K/uL (0.00-0.50) 04/05/25 11:29 Baso # (Auto) 0.05 K/uL (0.00-0.20) 04/05/25 11:29 Immature Gran # (Auto) 0.04 K/uL (0.01-0.20) 04/05/25 11:29 PT 10.5 Seconds (9.0-12.0) 04/05/25 11: INR 1.0 (0.9-1.1) 04/05/25 11:29 APTT 25 Seconds (21-31) 04/05/25 11:29 PTT Ratio 0.9 04/05/25 11:29 Sodium 137 mmol/L (136-145) 04/09/25 10:03 Potassium 3.6 mmol/L (3.5-5.1) 04/09/25 10:03 Chloride 99 mmol/L (98-107) 04/09/25 10:03 Carbon Dioxide 31 mmol/L (21-32) 04/09/25 10:03 Anion Gap 7 (3-11) 04/09/25 10:03 BUN 14 mg/dl (6-23) 04/09/25 10:03 Creatinine 0.91 mg/dl (0.6-1.2) 04/09/25 10:03 Est Cr Clr Drug Dosing 52.0 ml/min 04/09/25 10:03 eGFR 72.67 04/09/25 10:03 BUN/Creatinine Ratio 15.4 (10-20) 04/09/25 10:03 Glucose 120 mg/dl (70-99(Fasting)) H 04/09/25 10:03 Calcium 8.8 mg/dl (8.6-10.3) 04/09/25 10:03 Phosphorus 3.4 mg/dl (2.5-4.9) 04/05/25 11:29 Magnesium 1.8 mg/dl (1.7-2.4) 04/05/25 11:29 Total Bilirubin 0.2 mg/dl (0.2-1.0) 04/05/25 11:29 AST 15 U/L (13-39) 04/05/25 11:29 ALT 12 U/L (7-52) 04/05/25 11:29 Alkaline Phosphatase 173 U/L (34-104) H 04/05/25 11:29 Troponin I High Sens 11.1 pg/ml (0-14) D 04/06/25 19:14 Total Protein 6.6 gm/dl (6.0-8.3) 04/05/25 11:29 Albumin 3.4 gm/dl (3.4-5.0) 04/05/25 11:29 Globulin 3.2 gm/dl (2.5-4.0) 04/05/25 11:29 Albumin/Globulin Ratio 1.1 (0.9-2) 04/05/25 11:29 Urine Color Yellow 04/05/25 11:48 Urine Appearance Cloudy (Clear) A 04/05/25 11:48 Urine pH 8.5 (4.5-7.5) H 04/05/25 11:48 Ur Specific [place] 1.020 (1.000-1.030) 04/05/25 11:48 Urine Protein Negative (Negative) 04/05/25 11:48 Urine Glucose (UA) Negative (Negative) 04/05/25 11:48 Urine Ketones Negative (Negative) 04/05/25 11:48 Urine Blood Trace-intact (Negative) H 04/05/25 11:48 Urine Nitrite Negative (Negative) 04/05/25 11:48 Urine Bilirubin Negative (Negative) 04/05/25 11:48 Urine Urobilinogen Negative (Negative) 04/05/25 11:48 Ur Leukocyte Esterase 3+ (Negative) H 04/05/25 11:48 Urine WBC (Auto) >50 /hpf (0-5) H 04/05/25 11:48 Urine RBC (Auto) 0-2 /hpf (0-2) 04/05/25 11:48 U Hyaline Cast (Auto) 0-2 /lpf (0-2) 04/05/25 11:48 U Epithel Cells (Auto) 0-2 /hpf (0-2) 04/05/25 11:48 Urine Bacteria (Auto) 4+ (None Seen) H 04/05/25 11:48 Urine Comment 04/05/25 11:[address] 04/05/25 10:51 CT SCAN OF THE CERVICAL SPINE CLINICAL HISTORY: Trauma. COMPARISON STUDY: Cervical spine CT July 25, 2023. TECHNIQUE: CT scan of the cervical spine is performed from the skull base to the upper thoracic spine. Images are reviewed in the axial, sagittal, and coronal planes. IV contrast was not administered for this examination. A dose lowering technique was utilized adhering to the principles of ALARA. CT DOSE: 1150.32 mGy.cm FINDINGS: This exam is mildly compromised given difficulty positioning. There is reversal of the cervical lordosis. No acute cervical spine fractures are identified. The facet joints are intact. There is no prevertebral edema. There is mild disc space narrowing and extensive anterior osteophytosis of the cervical spine. There is mild multilevel facet arthrosis. IMPRESSION: 1. No acute cervical spine fracture or subluxation. 2. Exam mildly compromised given difficulty positioning. ACT 112: Negative or not required by law. Electronically signed by: Henry Ayala M.D. 04/05/2025 12:12 PM Chest X-Ray 04/05/25 10:51 XR chest 1V portable CLINICAL HISTORY: trauma COMPARISON STUDY: 03/02/2025 FINDINGS: Stable mitral valve calcification. Stable cardiomegaly without pulmonary vascular congestion. No consolidation or pleural effusion seen. No pneumothorax. IMPRESSION: No acute findings seen. ACT 112: Negative or not required by law. Electronically signed by: Filiberto Smith M.D. 04/05/2025 11:[address] 04/05/25 10:51 CT head/brain wo con CLINICAL HISTORY: trauma. TECHNIQUE: Multiple axial CT images of the head were obtained without contrast. A dose lowering technique was utilized adhering to the principles of ALARA. CT DOSE: 1150 COMPARISON: 12/15/2024 FINDINGS: There is mild motion artifact. No intracranial hemorrhage seen. No mass effect, midline shift, or hydrocephalus. No skull fracture seen. There is stable mild mucosal thickening in the left maxillary sinus. Stable mild chronic small vessel ischemic changes. IMPRESSION: No acute findings. ACT 112: Negative or not required by law. The above report was generated using voice recognition software. It may contain grammatical, syntax or spelling errors. Electronically signed by: Filiberto Smith M.D. 04/05/2025 12:17 PM Pelvis X-Ray 04/05/25 10:51 XR pelvis 1-2V routine CLINICAL HISTORY: trauma COMPARISON: 03/09/2025 FINDINGS: Stable left ureteral stent. Stable severe degenerative changes right hip. No fracture or dislocation seen at the pelvis. IMPRESSION: No fracture seen. ACT 112: Negative or not required by law. Electronically signed by: Filibetro Smith M.D. 04/05/2025 11:11 AM KUB X-Ray 04/07/25 07:41 EXAM: XR KUB/Abdomen 1 view CLINICAL HISTORY: Vomiting, r/o obstruction. TECHNIQUE: X-ray images of the abdomen were obtained in supine positions. COMPARISON: Prior X-ray dated 04/05/2025 for comparison. FINDINGS: Gas Pattern: Distension of the ascending colon seen, less prominent compared to prior No evidence of bowel obstruction or significant distention. Mild fecal loading in colon. Soft Tissues: Soft tissues of the abdomen appear normal without evidence of masses or calcifications. Liver, spleen, and kidneys are of normal size and position. Stable position of left DJ stent. Spondylotic changes in lumbar spine. Degenerative changes in bilateral hip joints. IMPRESSION: 1. Distension of the ascending colon seen, less prominent compared to prior 2. Stable position of left DJ stent. 3. No other interval changes Electronically signed by Evangelist Delatorre 04-07-2025 09:29 AM Pending Results Patient Have Any Pending Studies at Discharge: No Discharge Instructions Given to Patient (Per Discharging Provider) discussed with KAREEM Kim, plan to cover with Augmentin from discharge day 04/11/25 to 3 days after planned Ureteral stent procedure on Apr 26 hence, last day for Augmentin 875mg BID is April 29, 2025 continue probiotics for 6 weeks recommend to check complete metabolic profile weekly while on Augmentin course Please refer to accompanying hospital discharge summary. Total Time Total Time Spent Total Time Spent (In Minutes): 45 minutes
[2025-04-11 16:20] LABS: Alanine Aminotransferase 10.0 U/L (7-52); Albumin Globulin Ratio 1.0 (0.9-2); Albumin Level 3.7 gm/dl (3.4-5.0); Alkaline Phosphatase 195.0 U/L (34-104); Anion Gap 12.0 (3-11); Bilirubin,Total 0.3 mg/dl (0.2-1.0); Blood Urea Nitrogen 8.0 mg/dl (6-23); Calcium 9.1 mg/dl (8.6-10.3); Carbon Dioxide 25.0 mmol/L (21-32); Chloride 100.0 mmol/L (98-107); Creatinine Clr Calc Pharmacy 59.9 ml/min; Globulin 3.8 gm/dl (2.5-4.0); Glucose 171.0 mg/dl (70-99(Fasting)); Magnesium 1.9 mg/dl (1.7-2.4); Potassium 3.2 mmol/L (3.5-5.1); Sodium 137.0 mmol/L (136-145); Total Protein 7.5 gm/dl (6.0-8.3)
--- NOTE | 2025-04-11 16:31 | CT Scan Report ---
Clinical History: Possible seizure Technique: Axial computed tomography images were obtained of the brain without intravenous contrast. Comparison is made to the prior CT dated 04/05/2025 Findings: Areas of decreased attenuation are seen within the periventricular white matter, likely representing chronic small vessel ischemic disease. There is no definite sign of acute or old infarction. No intracranial hemorrhage is evident. No definite mass lesion is seen on this noncontrast examination. There is no midline shift or other form of herniation. No hydrocephalus is seen. There are dystrophic calcifications along the falx cerebri. No fracture is identified. There is hyperostosis frontalis interna. There is mucosal thickening in the left maxillary sinus. The mastoid air cells appear clear. Impression: 1. Apparent chronic small vessel ischemic disease 2. Chronic sinusitis Electronically signed by Landon Cason 04-11-2025 4:27 PM
[2025-04-11] MEDS: POT PHOSPHATE MONOBASIC W/ SOD TAB PO STA (17:04)
[2025-04-11] MEDS: POTASSIUM CHLORIDE 10 MEQ TABCR PO STA (17:04)
[2025-04-11] MEDS ORDERED: POTASSIUM PHOS 3 MMOL/1 ML INFUSION IV STA (17:44)
[2025-04-11] MEDS: POTASSIUM CHLORIDE / WTR 10 MEQ/100 ML PLCT IV SCH (18:12)
[2025-04-11] MEDS: MAGNESIUM SULFATE / D5W 1 GM/100 ML BAG IV SCH (18:12)
[2025-04-11] MEDS: D5W AND NSS 1,000 ML IV SCH (18:14)
--- NOTE | 2025-04-11 18:14 | Communication Note ---
Date of Service: April 11, 2025 around 5 PM, patient had a recurrence of the episode earlier today Lasted longer for about 10 more seconds Code purple called Seen resting in bed, awake and alert , not in distress blood pressure elevated but not hypoxic clear breath sounds bilaterally, tachycardic Stat dose Ativan 1 mg IM given 2 L of O2 nasal cannula started Assessment and plan Breakthrough seizures Patient missed doses of Lamictal and Keppra over the weekend discussed with neurologist Dr. Ramana Dhillon Recommend loading dose of Keppra 2000 mg IV, continue usual Keppra dose t onightIf patient refuses, give in IV form Recommend additional Lamictal to 50 mg p.o. now, continue usual Lamictal dose tonight EEG tomorrow IV potassium, magnesium, phosphorus ordered D5 NS as ordered staff at the [facility] updated including Ar Patel and Zac Vale MD
[2025-04-11] MEDS: LEVETIRACETAM IV STA (18:40)
[2025-04-11] MEDS: cefTRIAXone SODIUM 2,000 MG/50 ML BAG IV SCH (18:51)
[2025-04-11] MEDS: lamoTRIgine 25 MG TAB PO STA (20:24)
[2025-04-11 20:42] LABS: Hematocrit (blood only) 34.4 % (37.0-47.0); Hemoglobin 10.8 g/dl (12.0-16.0); Immature Granulocytes # (auto) 0.12 K/uL (0.01-0.20); Immature Granulocytes % (auto) 0.6 %; Mean Corpuscular Hemoglobin 24.9 pg (25.0-34.0); Mean Corpuscular Volume 79.4 fL (80.0-100.0); Platelet Count 553 K/uL (130-400); RDW Standard Deviation 47.9 fL (36.4-46.3); Red Blood Count 4.33 M/uL (4.20-5.40); White Blood Count 20.88 K/ul (4.8-10.8)
[2025-04-11] MEDS: LEVETIRACETAM IV SCH (22:39)
[2025-04-11] MEDS: POTASSIUM PHOSPHATE 15 MMOL in SODIUM CHLORIDE 0.9% 250 ML IV ONE (22:51)
[2025-04-12 07:34] LABS: Hematocrit (blood only) 31.4 % (37.0-47.0); Hemoglobin 10.0 g/dl (12.0-16.0); Immature Granulocytes # (auto) 0.05 K/uL (0.01-0.20); Immature Granulocytes % (auto) 0.4 %; Mean Corpuscular Hemoglobin 25.6 pg (25.0-34.0); Mean Corpuscular Volume 80.5 fL (80.0-100.0); Platelet Count 520 K/uL (130-400); RDW Standard Deviation 49.9 fL (36.4-46.3); Red Blood Count 3.90 M/uL (4.20-5.40); White Blood Count 13.02 K/ul (4.8-10.8)
[2025-04-12 07:50] LABS: Alanine Aminotransferase 10.0 U/L (7-52); Albumin Globulin Ratio 1.0 (0.9-2); Albumin Level 3.3 gm/dl (3.4-5.0); Alkaline Phosphatase 165.0 U/L (34-104); Anion Gap 6.0 (3-11); Bilirubin,Total 0.2 mg/dl (0.2-1.0); Blood Urea Nitrogen 6.0 mg/dl (6-23); Calcium 8.0 mg/dl (8.6-10.3); Carbon Dioxide 25.0 mmol/L (21-32); Chloride 107.0 mmol/L (98-107); Creatinine Clr Calc Pharmacy 69.8 ml/min; Globulin 3.2 gm/dl (2.5-4.0); Glucose 119.0 mg/dl (70-99(Fasting)); Magnesium 2.4 mg/dl (1.7-2.4); Potassium 4.1 mmol/L (3.5-5.1); Sodium 138.0 mmol/L (136-145); Total Protein 6.5 gm/dl (6.0-8.3)
[2025-04-12 07:50] LABS: Appearance Urine Cloudy (Clear); Bacteria Urine Automated None Seen (None Seen); Epithelial Cell Urine Auto 0-2 /hpf (0-2); Glucose Urine UA Negative (Negative); RBC Urine Automated >20 /hpf (0-2); WBC Urine Automated >50 /hpf (0-5)
[2025-04-12] MEDS: POT PHOSPHATE MONOBASIC W/ SOD TAB PO SCH (08:45)
[2025-04-12] MEDS: POTASSIUM CHLORIDE 10 MEQ TABCR PO SCH (08:45)
[2025-04-12] MEDS: METOPROLOL SUCC 25MG EXT REL TAB PO SCH (08:45)
[2025-04-12] MEDS: CALCIUM 600MG + VIT D 400 IU TAB PO SCH (12:25)
--- NOTE | 2025-04-12 17:20 | XRay Report ---
EXAMINATION: X-ray KUB/abdomen 1 view CLINICAL HISTORY: Constipation, rule out obstruction PRIORS: 04/07/2025 TECHNIQUE: Frontal view abdomen. Positioning challenges were encountered. FINDINGS: Overlying bowel gas and stool obscures fine bone detail. A left ureteral stent present, unchanged. No formed stool present throughout the colon. No dilated loops of bowel. No air-fluid levels. [id number] degenerative change of the right hip with possible dysplastic changes. IMPRESSION: No significant amount of stool throughout the colon with nondilated, nonobstructed bowel gas pattern. Electronically signed by Sofía Hernandez 04-12-2025 5:19 PM
--- NOTE | 2025-04-12 17:46 | Hospitalist Progress Note ---
Date of Service April 12, 2025 Assessment & Plan (1) Nephrolithiasis: (2) Ureteral stent present: (3) Nonverbal: (4) Complicated UTI (urinary tract infection): (5) Severe intellectual disability: (6) Fatty (change of) liver, not elsewhere classified: (7) Tremor, unspecified: Plan per previous hospitalists notes with addendum: 59 yo female with pmhx of severe intellectual disability c/b epilepsy, nonverbal status, fecal/urinary incontinence, s/p recent urethral stent placement, fatty liver disease, GERD, OCD, IAN, who presents for a fall from the [facility]. #Fall #Epilepsy Breakthrough seizures -unclear cause of fall from bed, likely mechanical in nature -per caregiver patient currently at baseline, concern is that UTI cause fall and they do not want her to become septic -lower on differential includes stroke (patient at baseline), arrythmia (unlikely to cause fall from bed), seizures (does have epilepsy so possible) Plan: -gentle hydration -neurology consult, appreciate recs for consideration of seizure and polypharmacy -decreased dose of perphenazine 04/11 while being transported from bed to wheelchair for discharge by staff from the ER, patient noted to have some shaking of the arms and followed by fixed gaze to the right for about 20 seconds Afterwards, patient noted to be back to her baseline Stat CT head ordered: no acute process Stat Labs ordered: Potassium 3.2, phosphorus 2.4, magnesium 1.9 Potassium and phosphorus supplements ordered around 5 PM, patient had a recurrence of the episode earlier today Lasted longer for about 10 more seconds Code purple called Seen resting in bed, awake and alert , not in distress blood pressure elevated but not hypoxic clear breath sounds bilaterally, tachycardic Stat dose Ativan 1 mg IM given 2 L of O2 nasal cannula started Assessment and plan Breakthrough seizures Patient missed doses of Lamictal and Keppra over the weekend discussed with neurologist Dr. Ramana Dhillon Recommend loading dose of Keppra 2000 mg IV, continue usual Keppra dose tonightIf patient refuses, give in IV form Recommend additional Lamictal to 50 mg p.o. now, continue usual Lamictal dose tonight EEG tomorrow IV potassium, magnesium, phosphorus ordered D5 NS as ordered 04/12 No seizure-like activity overnight Electrolytes better usual Keppra 1500 mg p.o. twice daily converted to IV for now for better adherence continue Lamictal, and other usual meds EEG ordered: Pending #Severe Bacteriuria #Ureteral Stent -unclear if patient has symptoms, hemodynamically stable at this time, no sepsis criteria -UA appears to be significantly infected in setting of chronic colonization Plan: -urology consult, appreciate recs -follow up outpatient -ID consult, appreciate recs 04/10: Urine culture: (+) Proteus deescalated Cefepime to Ceftriaxone d/c on PO Augmentin, to be continued until planned stent removal has been completed on 04/26/25 per ID recommendation will need probiotics x 1 month at least encourage to drink plenty of fluids - transitioned to Augmentin as IV site was pulled Boost ordered for supplement 04/12 continue ceftriaxone IV for now while admitted per ID service, plan to cover with Augmentin after planned Ureteral stent procedure on Apr 26 hence, last day for Augmentin 875mg BID is April 29, 2025 recommend to check complete metabolic profile weekly while on Augmentin course #Episode of Vomiting KUB: no obstruction, minimal fecal load clear breath sounds BL resume diet, always with assistance vomiting from UTI? Cefepime? continue supportive care, monitor closely -- resolved #Lateral T Wave Inversions -new from 2017 -unclear if any symptoms troponin 10.9--> 15.2--> 11.1 echo: left ventricular wall motion is normal left ventricular systolic function is normal left ventricular ejection fraction = 55-60% right ventricle is normal in size and function severe focal calcification of the posterior mitral valve annulus mild prolapse of the posteriors mitral valve leaflet mild mitral regurgitation grade 1 diastolic dysfunction compared to the report of previous study 12/18/2024, severe mitral annular calcification also noted at that time Mild mitral regurgitaion now noted #Severe Intellectual Disability #OCD #IAN -continue home meds austedo xr, perphenazine (decreased dose), seroquel, zoloft -continue miralax, bisacodyl suppository prn for constipation, -mouth care ordered -continue keppra and lamictal Disposition pending Anticipate discharge to the [facility] in 1 to 2 days Admission and Anticipated Discharge Date Admission Date: April 05, 2025 Subjective Seen awake and alert, not in distress Patient's RN and the [facility] caregiver Christian at the bedside Patient declining oral meds and food this morning No signs of pain, shortness of breath or seizure activity No other new symptoms Review of Systems Review of Systems: all noted and negative except for above Physical Exam Physical Exam: General- oriented x 0, nonverbal, not in distress, breathing with no effort or accessory muscle use Eyes- anicteric Neck- no JVD Lungs- clear breath sounds bilaterally, no crackles or wheezes Heart- normal rate, regular rhythm; no murmurs Abdomen- normal bowel sounds, nondistended, soft, no tenderness Extremities- no pretibial edema, no calf tenderness Neuro- alert, oriented x 0; no gross focal neurologic deficits Skin- warm & dry Results & Data Results & Data Vital Signs (Past 12 Hours) Vital Signs Temp Pulse Pulse Resp BP Pulse Ox O2 Del Method 04/12/25 14:58 36.9 C 83 18 129/78 95 Room Air 04/12/25 13:03 75 04/12/25 11:32 37.0 C 95 H 18 155/71 H 96 Room Air 04/12/25 07:38 36.9 C 92 H 18 157/79 H 98 Room Air 04/12/25 06:45 91 H all noted and reviewed including below
[2025-04-13 09:42] LABS: Hematocrit (blood only) 28.3 % (37.0-47.0); Hemoglobin 8.6 g/dl (12.0-16.0); Immature Granulocytes # (auto) 0.03 K/uL (0.01-0.20); Immature Granulocytes % (auto) 0.4 %; Mean Corpuscular Hemoglobin 25.1 pg (25.0-34.0); Mean Corpuscular Volume 82.7 fL (80.0-100.0); Platelet Count 380 K/uL (130-400); RDW Standard Deviation 50.6 fL (36.4-46.3); Red Blood Count 3.42 M/uL (4.20-5.40); White Blood Count 8.51 K/ul (4.8-10.8)
[2025-04-13 09:57] LABS: Alanine Aminotransferase 9.0 U/L (7-52); Albumin Globulin Ratio 1.1 (0.9-2); Albumin Level 2.9 gm/dl (3.4-5.0); Alkaline Phosphatase 132.0 U/L (34-104); Anion Gap 5.0 (3-11); Bilirubin,Total 0.2 mg/dl (0.2-1.0); Blood Urea Nitrogen 3.0 mg/dl (6-23); Calcium 7.8 mg/dl (8.6-10.3); Carbon Dioxide 26.0 mmol/L (21-32); Chloride 110.0 mmol/L (98-107); Creatinine Clr Calc Pharmacy 70.0 ml/min; Globulin 2.6 gm/dl (2.5-4.0); Glucose 114.0 mg/dl (70-99(Fasting)); Magnesium 1.8 mg/dl (1.7-2.4); Potassium 4.0 mmol/L (3.5-5.1); Sodium 141.0 mmol/L (136-145); Total Protein 5.5 gm/dl (6.0-8.3)
--- NOTE | 2025-04-13 17:44 | Hospitalist Progress Note ---
Date of Service April 13, 2025 Assessment & Plan (1) Nephrolithiasis: (2) Ureteral stent present: (3) Nonverbal: (4) Complicated UTI (urinary tract infection): (5) Severe intellectual disability: (6) Fatty (change of) liver, not elsewhere classified: (7) Tremor, unspecified: Plan per previous hospitalists notes with addendum: 59 yo female with pmhx of severe intellectual disability c/b epilepsy, nonverbal status, fecal/urinary incontinence, s/p recent urethral stent placement, fatty liver disease, GERD, OCD, IAN, who presents for a fall from the [facility]. #Fall #Epilepsy Breakthrough seizures -unclear cause of fall from bed, likely mechanical in nature -per caregiver patient currently at baseline, concern is that UTI cause fall and they do not want her to become septic -lower on differential includes stroke (patient at baseline), arrythmia (unlikely to cause fall from bed), seizures (does have epilepsy so possible) Plan: -gentle hydration -neurology consult, appreciate recs for consideration of seizure and polypharmacy -decreased dose of perphenazine 04/11 while being transported from bed to wheelchair for discharge by staff from the ER, patient noted to have some shaking of the arms and followed by fixed gaze to the right for about 20 seconds Afterwards, patient noted to be back to her baseline Stat CT head ordered: no acute process Stat Labs ordered: Potassium 3.2, phosphorus 2.4, magnesium 1.9 Potassium and phosphorus supplements ordered around 5 PM, patient had a recurrence of the episode Lasted longer for about 10 more seconds Code purple called Seen resting in bed, awake and alert , not in distress blood pressure elevated but not hypoxic clear breath sounds bilaterally, tachycardic Stat dose Ativan 1 mg IM given 2 L of O2 nasal cannula started Assessment and plan Breakthrough seizures Patient missed doses of Lamictal and Keppra over the weekend discussed with neurologist Dr. Alberto Choi Recommend loading dose of Keppra 2000 mg IV, continue usual Keppra dose tonight. If patient refuses, give in IV form Recommend additional Lamictal to 50 mg p.o. now, continue usual Lamictal dose tonight EEG tomorrow IV potassium, magnesium, phosphorus ordered D5 NS as ordered 04/12 No seizure-like activity overnight Electrolytes better usual Keppra 1500 mg p.o. twice daily converted to IV for now for better adherence continue Lamictal, and other usual meds EEG ordered: Pending #Severe Bacteriuria #Ureteral Stent -unclear if patient has symptoms, hemodynamically stable at this time, no sepsis criteria -UA appears to be significantly infected in setting of chronic colonization Plan: -urology consult, appreciate recs -follow up outpatient -ID consult, appreciate recs 04/10: Urine culture: (+) Proteus deescalated Cefepime to Ceftriaxone d/c on PO Augmentin, to be continued until planned stent removal has been completed on 04/26/25 per ID recommendation will need probiotics x 1 month at least encourage to drink plenty of fluids - transitioned to Augmentin as IV site was pulled Boost ordered for supplement 04/12 continue ceftriaxone IV for now while admitted per ID service, plan to cover with Augmentin after planned Ureteral stent procedure on Apr 26 hence, last day for Augmentin 875mg BID is April 29, 2025 recommend to check complete metabolic profile weekly while on Augmentin course 04/13 Contacted by urology - plan for kidney stone treatment possibly tmrw, npo after MN #Episode of Vomiting KUB: no obstruction, minimal fecal load clear breath sounds BL resume diet, always with assistance vomiting from UTI? Cefepime? continue supportive care, monitor closely -- resolved #Lateral T Wave Inversions -new from 2017 -unclear if any symptoms troponin 10.9--> 15.2--> 11.1 echo: left ventricular wall motion is normal left ventricular systolic function is normal left ventricular ejection fraction = 55-60% right ventricle is normal in size and function severe focal calcification of the posterior mitral valve annulus mild prolapse of the posteriors mitral valve leaflet mild mitral regurgitation grade 1 diastolic dysfunction compared to the report of previous study 12/18/2024, severe mitral annular calcification also noted at that time Mild mitral regurgitaion now noted #Severe Intellectual Disability #OCD #IAN -continue home meds austedo xr, perphenazine (decreased dose), seroquel, zoloft -continue miralax, bisacodyl suppository prn for constipation, -mouth care ordered -continue keppra and lamictal Disposition pending Anticipate discharge to the [facility] when medically stable, after urology procedure Admission and Anticipated Discharge Date Admission Date: April 05, 2025 Subjective Pt seen in follow up Seen awake and alert, not in distress, lying in bed. Pt seen w/ RN at the bedside. Per previous provider - [facility] caregiver comes to visit to bedside No signs of pain, shortness of breath or seizure activity No other new symptoms Contacted by urology - plan for stone treatment Review of Systems Review of Systems: Unobtainable due to mental health condition Physical Exam Physical Exam: General- oriented x 0, nonverbal, not in distress, breathing with no effort or accessory muscle use Eyes- anicteric Neck- no JVD Lungs- clear breath sounds bilaterally, no crackles or wheezes Heart- normal rate, regular rhythm; no murmurs Abdomen- normal bowel sounds, nondistended, soft, no tenderness Extremities- no pretibial edema, no calf tenderness Neuro- alert, oriented x 0; no gross focal neurologic deficits Skin- warm & dry Results & Data Results & Data Vital Signs (Past 12 Hours) Vital Signs Temp Pulse Pulse Resp BP Pulse Ox O2 Del Method 04/13/25 16:26 36.7 C 73 20 111/70 96 Room Air 04/13/25 13:20 78 04/13/25 12:15 36.7 C 78 16 127/60 94 Room Air 04/13/25 08:14 36.9 C 92 H 20 113/68 97 Room Air 04/13/25 06:45 72 Laboratory Results 04/13/25 Range/Units 09:25 WBC 8.51 (4.8-10.8) K/ul RBC 3.42 L (4.20-5.40) M/uL Hgb 8.6 L (12.0-16.0) g/dl Hct 28.3 L (37.0-47.0) % MCV 82.7 (80.0-100.0) fL MCH 25.1 (25.0-34.0) pg MCHC 30.4 L (32.0-36.0) g/dL RDW Std Deviation 50.6 H (36.4-46.3) fL RDW Coeff of Nic 17.0 H (11.5-14.5) % Plt Count 380 (130-400) K/uL MPV 9.9 (9.4-12.4) fL Immature Gran % (Auto) 0.4 % Neut % (Auto) 62.5 % Lymph % (Auto) 25.1 % Jay % (Auto) 9.8 % Eos % (Auto) 1.6 % Baso % (Auto) 0.6 % Neut # (Auto) 5.32 (1.40-6.50) K/uL Lymph # (Auto) 2.14 (1.20-3.40) K/uL Jay # (Auto) 0.83 H (0.11-0.59) K/uL Eos # (Auto) 0.14 (0.00-0.50) K/uL Baso # (Auto) 0.05 (0.00-0.20) K/uL Immature Gran # (Auto) 0.03 (0.01-0.20) K/uL Sodium 141 (136-145) mmol/L Potassium 4.0 (3.5-5.1) mmol/L Chloride 110 H (98-107) mmol/L Carbon Dioxide 26 (21-32) mmol/L Anion Gap 5 (3-11) BUN 3 L (6-23) mg/dl Creatinine 0.67 (0.6-1.2) mg/dl Est Cr Clr Drug Dosing 70.0 ml/min eGFR 100.62 BUN/Creatinine Ratio 4.5 L (10-20) Glucose 114 H (70-99(Fasting)) mg/dl Calcium 7.8 L (8.6-10.3) mg/dl Phosphorus 3.3 (2.5-4.9) mg/dl Magnesium 1.8 (1.7-2.4) mg/dl Total Bilirubin 0.2 (0.2-1.0) mg/dl AST 11 L (13-39) U/L ALT 9 (7-52) U/L Alkaline Phosphatase 132 H (34-104) U/L Total Protein 5.5 L (6.0-8.3) gm/dl Albumin 2.9 L (3.4-5.0) gm/dl Globulin 2.6 (2.5-4.0) gm/dl Albumin/Globulin Ratio 1.1 (0.9-2) Medications Administered Current Inpatient Medications Acetaminophen (Acetaminophen 500 Mg Tab) 1,000 mg PO Q4H PRN PRN Reason: elevated temp/headache/mild pain Stop: 05/05/25 16:42 Amlodipine Besylate (Amlodipine Besylate 5 Mg Tab) [facility] [place] Stop: 05/12/25 08:59 Last Admin: 04/13/25 08:25 Dose: 2.5 mg Bisacodyl (Bisacodyl 5 Mg Tabec) 10 mg PO Q3D PRN PRN Reason: Constipation Stop: 05/05/25 16:42 Calcium/Vitamin D (Calcium 600mg + Vit D 400 Iu Tab) 1 tab PO DAILY@1100 SWAPNA Stop: 05/06/25 08:59 Last Admin: 04/13/25 11:01 Dose: 1 tab Chlorhexidine Gluconate (Chlorhexidine Gluconate 0.12% 480 Ml) 15 ml MT TID SWAPNA Stop: 05/05/25 17:14 Last Admin: 04/13/25 13:48 Dose: 15 ml Clobazam (Clobazam 5 Mg Tab) 5 mg PO HS SWAPNA Stop: 05/05/25 20:59 Last Admin: 04/12/25 20:35 Dose: 5 mg Deutetrabenazine (Austedo [Patient Own Med]) 1 each PO DAILY SWAPNA Stop: 05/06/25 08:59 Last Admin: 04/13/25 08:25 Dose: 1 each Famotidine (Famotidine 40 Mg Tablet) 40 mg PO DAILY [facility] Stop: 05/06/25 08:59 Last Admin: 04/13/25 08:25 Dose: 40 mg Hydralazine HCl (Hydralazine Hcl 20 Mg/Ml Vial) 5 mg IV Q6H PRN PRN Reason: systolic bp > 160 Stop: 05/11/25 18:11 Ceftriaxone Sodium (Rocephin) 2,000 mg in 50 mls @ 100 mls/hr IV Q24H SWAPNA Stop: 04/21/25 18:29 Last Admin: 04/13/25 17:40 Dose: 100 mls/hr Lamotrigine (Lamotrigine 25 Mg Tab) 50 mg PO [facility]; Protocol Stop: 05/05/25 20:59 Last Admin: 04/13/25 08:25 Dose: 50 mg Lamotrigine (Lamotrigine 100 Mg Tab) 200 mg PO [facility]; Protocol Stop: 05/05/25 20:59 Last Admin: 04/13/25 08:25 Dose: 200 mg Levetiracetam (Levetiracetam 500 Mg Tab) 1,500 mg PO BID SWAPNA Stop: 05/05/25 20:59 Last Admin: 04/11/25 20:40 Dose: Not Given Levetiracetam (Levetiracetam 500 Mg/5 Ml Vial 1500mg) 1,500 mg IV BID [facility] Stop: 05/11/25 21:59 Last Admin: 04/13/25 08:25 Dose: 1,500 mg Metoprolol Succinate (Metoprolol Succ 25mg Ext Rel Tab) 25 mg PO QAM [facility] Stop: 05/12/25 08:59 Last Admin: 04/13/25 08:25 Dose: 25 mg Ondansetron HCl (Ondansetron Inj 2 Mg/Ml 2 Ml Vial) 4 mg IV Q6H PRN PRN Reason: Nausea Stop: 05/05/25 16:42 Perphenazine (Perphenazine 2 Mg Tab) 1 mg PO QAM [facility] Stop: 05/07/25 08:59 Last Admin: 04/13/25 08:25 Dose: 1 mg Perphenazine (Perphenazine 2 Mg Tab) 3 mg PO HS [facility] Stop: 05/06/25 20:59 Last Admin: 04/12/25 20:37 Dose: 3 mg Polyethylene Glycol (Polyethylene (Miralax) 17 Gm Pack) 17 gm PO QAM [facility] Stop: 05/06/25 08:59 Last Admin: 04/13/25 08:25 Dose: Not Given Polyethylene Glycol (Polyethylene (Miralax) 17 Gm Pack) 17 gm PO DAILY PRN PRN Reason: Constipation Stop: 05/05/25 16:42 Potassium Chloride (Potassium Chloride 10 Meq Tabcr) 40 meq PO DAILY SWAPNA Stop: 05/12/25 08:59 Last Admin: 04/13/25 08:25 Dose: 40 meq Potassium Phosphate (Pot Phosphate Monobasic W/ Sod Tab) 1 tab PO QID [facility] Stop: 05/12/25 08:59 Last Admin: 04/13/25 17:40 Dose: 1 tab Quetiapine Fumarate (Quetiapine Fumarate 25 Mg Tablet) 50 mg PO QAM [facility] Stop: 05/06/25 08:59 Last Admin: 04/13/25 08:25 Dose: 50 mg Quetiapine Fumarate (Quetiapine Fumarate 200 Mg Tab) 200 mg PO HS [facility] Stop: 05/05/25 20:59 Last Admin: 04/12/25 20:37 Dose: 200 mg Sertraline HCl (Sertraline Hcl 100 Mg Tablet) 100 mg PO QAM [facility] Stop: 05/06/25 08:59 Last Admin: 04/13/25 08:25 Dose: 100 mg
[2025-04-14] MEDS ORDERED: NYSTATIN POWDER 15GM BTL EXT PRN (01:08)
--- NOTE | 2025-04-14 08:48 | Hospitalist Progress Note ---
Date of Service April 14, 2025 Assessment & Plan (1) Nephrolithiasis: (2) Ureteral stent present: (3) Nonverbal: (4) Complicated UTI (urinary tract infection): (5) Severe intellectual disability: (6) Fatty (change of) liver, not elsewhere classified: (7) Tremor, unspecified: Plan 59 yo female with pmhx of severe intellectual disability c/b epilepsy, nonverbal status, fecal/urinary incontinence, s/p recent urethral stent placement, fatty liver disease, GERD, OCD, IAN, who presents for a fall from the [facility]. #Fall #Epilepsy Breakthrough seizures -unclear cause of fall from bed, likely mechanical in nature -per caregiver patient currently at baseline, concern is that UTI cause fall and they do not want her to become septic -lower on differential includes stroke (patient at baseline), arrythmia (unlikely to cause fall from bed), seizures (does have epilepsy so possible) Plan: -gentle hydration -neurology consult, appreciate recs for consideration of seizure and polypharmacy -decreased dose of perphenazine 04/11 while being transported from bed to wheelchair for discharge by staff from the ER, patient noted to have some shaking of the arms and followed by fixed gaze to the right for about 20 seconds Afterwards, patient noted to be back to her baseline Stat CT head ordered: no acute process Stat Labs ordered: Potassium 3.2, phosphorus 2.4, magnesium 1.9 Potassium and phosphorus supplements ordered around 5 PM, patient had a recurrence of the episode Lasted longer for about 10 more seconds Code purple called Seen resting in bed, awake and alert , not in distress blood pressure elevated but not hypoxic clear breath sounds bilaterally, tachycardic Stat dose Ativan 1 mg IM given 2 L of O2 nasal cannula started Assessment and plan Breakthrough seizures Patient missed doses of Lamictal and Keppra over the weekend discussed with neurologist Dr. Alberto Choi Recommend loading dose of Keppra 2000 mg IV, continue usual Keppra dose tonight. If patient refuses, give in IV form Recommend additional Lamictal to 50 mg p.o. now, continue usual Lamictal dose tonight EEG IV potassium, magnesium, phosphorus ordered D5 NS as ordered 04/12 No seizure-like activity overnight Electrolytes better usual Keppra 1500 mg p.o. twice daily converted to IV for now for better adherence continue Lamictal, and other usual meds EEG ordered: Pending 04/13-04/14 Pt in no distress, awake, alert, no seizure like activity reported #Severe Bacteriuria #Ureteral Stent -unclear if patient has symptoms, hemodynamically stable at this time, no sepsis criteria -UA appears to be significantly infected in setting of chronic colonization Plan: -urology consult, appreciate recs -follow up outpatient -ID consult, appreciate recs 04/10: Urine culture: (+) Proteus deescalated Cefepime to Ceftriaxone d/c on PO Augmentin, to be continued until planned stent removal has been completed on 04/26/25 per ID recommendation will need probiotics x 1 month at least encourage to drink plenty of fluids - transitioned to Augmentin as IV site was pulled Boost ordered for supplement 04/12 continue ceftriaxone IV for now while admitted per ID service, plan to cover with Augmentin after planned Ureteral stent procedure on Apr 26 hence, last day for Augmentin 875mg BID is April 29, 2025 recommend to check complete metabolic profile weekly while on Augmentin course 04/13 Contacted by urology - plan for kidney stone treatment possibly tmrw, npo after MN 04/14 Discussed this AM w/ ID - will give her 800 IV fluconazole today given her last ucultx growing [place] as she is going for invasive procedure to prevent candidemia #Episode of Vomiting KUB: no obstruction, minimal fecal load clear breath sounds BL resume diet, always with assistance vomiting from UTI? Cefepime? continue supportive care, monitor closely -- resolved #Lateral T Wave Inversions -new from 2016 -unclear if any symptoms troponin 10.9--> 15.2--> 11.1 echo: left ventricular wall motion is normal left ventricular systolic function is normal left ventricular ejection fraction = 55-60% right ventricle is normal in size and function severe focal calcification of the posterior mitral valve annulus mild prolapse of the posteriors mitral valve leaflet mild mitral regurgitation grade 1 diastolic dysfunction compared to the report of previous study 12/18/2024, severe mitral annular calcification also noted at that time Mild mitral regurgitaion now noted #Severe Intellectual Disability #OCD #IAN -continue home meds austedo xr, perphenazine (decreased dose), seroquel, zoloft -continue miralax, bisacodyl suppository prn for constipation, -mouth care ordered -continue keppra and lamictal Disposition pending Anticipate discharge to the [facility] when medically stable, after urology procedure Admission and Anticipated Discharge Date Admission Date: April 05, 2025 Subjective Pt seen in follow up Seen awake and alert, not in distress, lying in bed. Pt seen w/ RN at the bedside. Per previous provider - [facility] caregiver comes to visit to bedside No signs of pain, shortness of breath or seizure activity No other new symptoms Contacted by urology - plan for stone treatment today Discussed this AM w/ ID - will give her 800 IV fluconazole today given her last ucultx growing [place] as she is going for invasive procedure to prevent candidemia Review of Systems Review of Systems: All systems reviewed & are unremarkable except as noted in Subjective Physical Exam Physical Exam: General- awake, nonverbal, not in distress, breathing with no effort or acces carin muscle use Eyes- anicteric Neck- no JVD Lungs- clear breath sounds bilaterally, no crackles or wheezes Heart- normal rate, regular rhythm; no murmurs Abdomen- normal bowel sounds, nondistended, soft, no tenderness Extremities- no pretibial edema, no calf tenderness Neuro- alert, awake, good eye contact, + tremor (at baseline) Skin- warm & dry Results & Data Results & Data Vital Signs (Past 12 Hours) Vital Signs Temp Pulse Pulse Resp BP Pulse Ox O2 Del Method 04/14/25 07:39 64 04/14/25 07:36 36.8 C 71 18 115/53 L 92 Room Air 04/14/25 04:24 37.5 C 70 16 115/69 96 Room Air 04/13/25 22:49 36.7 C 81 18 129/66 97 Room Air Laboratory Results 04/13/25 Range/Units 09:25 WBC 8.51 (4.8-10.8) K/ul RBC 3.42 L (4.20-5.40) M/uL Hgb 8.6 L (12.0-16.0) g/dl Hct 28.3 L (37.0-47.0) % MCV 82.7 (80.0-100.0) fL MCH 25.1 (25.0-34.0) pg MCHC 30.4 L (32.0-36.0) g/dL RDW Std Deviation 50.6 H (36.4-46.3) fL RDW Coeff of Nic 17.0 H (11.5-14.5) % Plt Count 380 (130-400) K/uL MPV 9.9 (9.4-12.4) fL Immature Gran % (Auto) 0.4 % Neut % (Auto) 62.5 % Lymph % (Auto) 25.1 % [place] % (Auto) 9.8 % Eos % (Auto) 1.6 % Baso % (Auto) 0.6 % Neut # (Auto) 5.32 (1.40-6.50) K/uL Lymph # (Auto) 2.14 (1.20-3.40) K/uL [place] # (Auto) 0.83 H (0.11-0.59) K/uL Eos # (Auto) 0.14 (0.00-0.50) K/uL Baso # (Auto) 0.05 (0.00-0.20) K/uL Immature Gran # (Auto) 0.03 (0.01-0.20) K/uL Sodium 141 (136-145) mmol/L Potassium 4.0 (3.5-5.1) mmol/L Chloride 110 H (98-107) mmol/L Carbon Dioxide 26 (21-32) mmol/L Anion Gap 5 (3-11) BUN 3 L (6-23) mg/dl Creatinine 0.67 (0.6-1.2) mg/dl Est Cr Clr Drug Dosing 70.0 ml/min eGFR 100.62 BUN/Creatinine Ratio 4.5 L (10-20) Glucose 114 H (70-99(Fasting)) mg/dl Calcium 7.8 L (8.6-10.3) mg/dl Phosphorus 3.3 (2.5-4.9) mg/dl Magnesium 1.8 (1.7-2.4) mg/dl Total Bilirubin 0.2 (0.2-1.0) mg/dl AST 11 L (13-39) U/L ALT 9 (7-52) U/L Alkaline Phosphatase 132 H (34-104) U/L Total Protein 5.5 L (6.0-8.3) gm/dl Albumin 2.9 L (3.4-5.0) gm/dl Globulin 2.6 (2.5-4.0) gm/dl Albumin/Globulin Ratio 1.1 (0.9-2) Medications Administered Current Inpatient Medications Acetaminophen (Acetaminophen 500 Mg Tab) 1,000 mg PO Q4H PRN PRN Reason: elevated temp/headache/mild pain Stop: 05/05/25 16:42 Amlodipine Besylate (Amlodipine Besylate 5 Mg Tab) 2.5 mg PO QAM [facility] Stop: 05/12/25 08:59 Last Admin: 04/13/25 08:25 Dose: 2.5 mg Bisacodyl (Bisacodyl 5 Mg Tabec) 10 mg PO Q3D PRN PRN Reason: Constipation Stop: 05/05/25 16:42 Calcium/Vitamin D (Calcium 600mg + Vit D 400 Iu Tab) 1 tab PO DAILY@1100 [facility] Stop: 05/06/25 08:59 Last Admin: 04/13/25 11:01 Dose: 1 tab Chlorhexidine Gluconate (Chlorhexidine Gluconate 0.12% 480 Ml) 15 ml MT TID [facility] Stop: 05/05/25 17:14 Last Admin: 04/13/25 20:42 Dose: 15 ml Clobazam (Clobazam 5 Mg Tab) 5 mg PO HS [facility] Stop: 05/05/25 20:59 Last Admin: 04/13/25 20:41 Dose: 5 mg Deutetrabenazine (Austedo [Patient Own Med]) 1 each PO DAILY [facility] Stop: 05/06/25 08:59 Last Admin: 04/13/25 08:25 Dose: 1 each Famotidine (Famotidine 40 Mg Tablet) 40 mg PO DAILY [facility] Stop: 05/06/25 08:59 Last Admin: 04/13/25 08:25 Dose: 40 mg Hydralazine HCl (Hydralazine Hcl 20 Mg/Ml Vial) 5 mg IV Q6H PRN PRN Reason: systolic bp > 160 Stop: 05/11/25 18:11 Ceftriaxone Sodium (Rocephin) 2,000 mg in 50 mls @ 100 mls/hr IV Q24H [facility] Stop: 04/21/25 18:29 Last Infusion: 04/13/25 18:10 Dose: Infused Lamotrigine (Lamotrigine 25 Mg Tab) 50 mg PO AMHS [facility]; Protocol Stop: 05/05/25 20:59 Last Admin: 04/13/25 20:41 Dose: 50 mg Lamotrigine (Lamotrigine 100 Mg Tab) 200 mg PO AMHS [facility]; Protocol Stop: 05/05/25 20:59 Last Admin: 04/13/25 20:41 Dose: 200 mg Levetiracetam (Levetiracetam 500 Mg Tab) 1,500 mg PO BID [facility] Stop: 05/05/25 20:59 Last Admin: 04/11/25 20:40 Dose: Not Given Levetiracetam (Levetiracetam 500 Mg/5 Ml Vial 1500mg) 1,500 mg IV BID [facility] Stop: 05/11/25 21:59 Last Admin: 04/13/25 22:04 Dose: 1,500 mg Metoprolol Succinate (Metoprolol Succ 25mg Ext Rel Tab) 25 mg PO QAM [facility] Stop: 05/12/25 08:59 Last Admin: 04/13/25 08:25 Dose: 25 mg Nystatin (Nystatin Powder 15gm Btl) 1 appln EXT Q8 PRN PRN Reason: Affected Skin Folds Stop: 05/14/25 01:07 Ondansetron HCl (Ondansetron Inj 2 Mg/Ml 2 Ml Vial) 4 mg IV Q6H PRN PRN Reason: Nausea Stop: 05/05/25 16:42 Perphenazine (Perphenazine 2 Mg Tab) 1 mg PO QAM [facility] Stop: 05/07/25 08:59 Last Admin: 04/13/25 08:25 Dose: 1 mg Perphenazine (Perphenazine 2 Mg Tab) 3 mg PO HS [facility] Stop: 05/06/25 20:59 Last Admin: 04/13/25 20:42 Dose: 3 mg Polyethylene Glycol (Polyethylene (Miralax) 17 Gm Pack) 17 gm PO QAM [facility] Stop: 05/06/25 08:59 Last Admin: 04/13/25 08:25 Dose: Not Given Polyethylene Glycol (Polyethylene (Miralax) 17 Gm Pack) 17 gm PO DAILY PRN PRN Reason: Constipation Stop: 05/05/25 16:42 Potassium Chloride (Potassium Chloride 10 Meq Tabcr) 40 meq PO DAILY [facility] Stop: 05/12/25 08:59 Last Admin: 04/13/25 08:25 Dose: 40 meq Potassium Phosphate (Pot Phosphate Monobasic W/ Sod Tab) 1 tab PO QID [facility] Stop: 05/12/25 08:59 Last Admin: 04/13/25 20:41 Dose: 1 tab Quetiapine Fumarate (Quetiapine Fumarate 25 Mg Tablet) 50 mg PO QAM [facility] Stop: 05/06/25 08:59 Last Admin: 04/13/25 08:25 Dose: 50 mg Quetiapine Fumarate (Quetiapine Fumarate 200 Mg Tab) 200 mg PO HS [facility] Stop: 05/05/25 20:59 Last Admin: 04/13/25 22:04 Dose: 200 mg Sertraline HCl (Sertraline Hcl 100 Mg Tablet) 100 mg PO QAM [facility] Stop: 05/06/25 08:59 Last Admin: 04/13/25 08:25 Dose: 100 mg
--- NOTE | 2025-04-14 09:24 | Urology Progress Note ---
Date of Service April 14, 2025 Assessment & Plan (1) Nephrolithiasis: (2) Ureteral stent present: (3) UTI (urinary tract infection): Plan 59 yo female who is admitted after a fall and with concern for UTI. Afebrile, VSS No leukocytosis and normal renal function Urine culture this admission with proteus Blood cultures with no growth to date Repeat urine culture 04/12 with Sarah albicans She was on Cefepime initially and then transitioned to Ceftriaxone Since she has remained hospitalized, discussed additional stone treatment while inpatient on IV antibiotics Discussed surgical intervention with hospital medicine- patient is medically stable for intervention Discussed with her medical POA, Mary Munoz, who is agreeable to proceed with bilateral ureteroscopy and stone treatment Plan to proceed to OR with cystoscopy, bilateral ureteroscopy and stone treatment, bilateral stent insertion/exchange with Dr. Napoles Risks and benefits of procedure per consent reviewed with Mary via telephone, consent signed with Dr. Napoles, and witnessed by me Keep NPO for procedure Continue antibiotics and supportive care Plan of care reviewed with Dr. Napoles, see attending note for further details Attending note: Patient independently assessed, examined, interviewed, and evaluated. Extensive time in conversation with patient's MPOA, the hospitalist team, as well as the OR, and the patient's facility in order to coordinate care. Agree with note as above. Patient's vitals and labs were all reviewed. Pertinent values in the HPI and plan section. Imaging was reviewed interpreted by myself. Agree with read. Vitals were reviewed. Discussed findings extensively with patient and family. Reviewed with nurse practitioner as well as consulting physicians/team. Patient's complicated medical and surgical history was reviewed and summarized above. Patient's surgical, medical, social, and family history were all reviewed with pertinent values as above. Discussed patient's current diagnosis as well as concerns and issues. Reviewed different options moving forward. Discussed potential risks and benefits as well as possible options and concerns. Extensive conversation with patient's MPOA this morning. Greater than 50 minutes and patient interaction, coordinating care, and significant review of patient's history and ongoing issues. Discussed this with Mary Munoz phone #:[phone] Extensively reviewed potential surgical options and interventions. Discussed potential issues and concerns related to intervention. Risk and benefits were discussed extensively with patient and any available family. Discussed potential risks related to anesthesia. Discussed risks of bleeding infection and injury. Reviewed ongoing issues. Discussed patient's ongoing infection issues. Infectious disease wanted to move forward with intervention in order to manage recurrent UTI issues as well as to try to remove the indwelling stent/stones that likely are contributing to the ongoing infection issues. All parties were agreeable with the plan. Reviewed extensively Risk benefits and intervention options. Risks and benefits discussed at length for procedure. These include bleeding, infection, injury to surrounding tissues or organs, and risks associated with anesthesia. Patient states understanding and agrees to proceed. Will sign consent and schedule. Plan for cystoscopy with possible bilateral ureteroscopy possible bilateral stone treatment Admission and Anticipated Discharge Date Admission Date: April 05, 2025 Subjective Patient seen at bedside. She is resting in bed, arouses to her name. Appears comfortable. Does not provide history. Review of Systems Review of Systems: Unobtainable due to cognitive status Physical Exam Constitutional: no acute distress Respiratory: no respiratory distress and no labored breathing Neurologic: awake Psychiatric: Orientation: alert, oriented to person and cooperative Results & Data Vital Signs (Past 12 Hours) Vital Signs Temp Pulse Pulse Resp BP Pulse Ox O2 Del Method 04/14/25 07:39 64 04/14/25 07:36 36.8 C 71 18 115/53 L 92 Room Air 04/14/25 04:24 37.5 C 70 16 115/69 96 Room Air 04/13/25 22:49 36.7 C 81 18 129/66 97 Room Air PG Care Time/CCT Total # of Minutes Spent Total Time Spent with Patient: Total time spent is greater than 50% in coordination of care (as documented) at patient's floor/unit and/or counseling patient: Coding Level of Care Code 83194 SUB INP/OBS CARE 3/50MIN Diagnoses Nephrolithiasis N20.0 Ureteral stent present Z96.0 UTI (urinary tract infection) N30.00 Hematuria presence: without hematuria Urinary tract infection type: acute cystitis (3) UTI (urinary tract infection) Hematuria presence: without hematuria Urinary tract infection type: acute cystitis Qualified Code(s): N30.00 - Acute cystitis without hematuria
[2025-04-14 11:18] LABS: Hematocrit (blood only) 28.8 % (37.0-47.0); Hemoglobin 9.0 g/dl (12.0-16.0); Immature Granulocytes # (auto) 0.05 K/uL (0.01-0.20); Immature Granulocytes % (auto) 0.7 %; Mean Corpuscular Hemoglobin 25.4 pg (25.0-34.0); Mean Corpuscular Volume 81.4 fL (80.0-100.0); Platelet Count 383 K/uL (130-400); RDW Standard Deviation 50.8 fL (36.4-46.3); Red Blood Count 3.54 M/uL (4.20-5.40); White Blood Count 7.63 K/ul (4.8-10.8)
[2025-04-14 11:37] LABS: Alanine Aminotransferase 11.0 U/L (7-52); Albumin Globulin Ratio 1.0 (0.9-2); Albumin Level 3.1 gm/dl (3.4-5.0); Alkaline Phosphatase 148.0 U/L (34-104); Anion Gap 5.0 (3-11); Bilirubin,Total 0.2 mg/dl (0.2-1.0); Blood Urea Nitrogen 6.0 mg/dl (6-23); Calcium 8.6 mg/dl (8.6-10.3); Carbon Dioxide 28.0 mmol/L (21-32); Chloride 106.0 mmol/L (98-107); Creatinine Clr Calc Pharmacy 64.3 ml/min; Globulin 3.1 gm/dl (2.5-4.0); Glucose 97.0 mg/dl (70-99(Fasting)); Magnesium 1.8 mg/dl (1.7-2.4); Potassium 4.3 mmol/L (3.5-5.1); Sodium 139.0 mmol/L (136-145); Total Protein 6.2 gm/dl (6.0-8.3)
--- NOTE | 2025-04-14 13:33 | Anesthesiology Consultation ---
Date of Service April 14, 2025 Assessment & Plan Chart Review Chart Review: Acceptable Risk for Surgery and Patient NOT seen in Pre Admission Testing Consults Requested none ASA ASA3 Proposed Anesthesia Anesthesia Type: General Risk / Benefits Reviewed With: PT / POA / Parent / Guardian, Accepts Plan and Informed Consent Obtained History Surgery Operation Date: 04/14/25 08:50 Proposed Procedures p Cystoscopy, Bilateral Ureteroscopy, Stone Treatment Laser Lithotripsy, Bilateral Stent Exchange - Dilip Napoles, Height/Weight Height: 4 ft 10 in Weight: 61.3 kg Allergies Allergy/AdvReac Type Severity Reaction Status Date / Time caffeine Allergy Unknown Unknown Verified 02/09/25 14:57 naproxen Allergy Unknown no rxn Verified 02/09/25 14:57 info listed NSAIDS (Non-Steroidal Allergy Unknown no rxn Verified 02/09/25 14:57 Anti-Inflamma listed stimulants AdvReac Unknown Uncoded 04/05/25 15:51 Medications Home Medications Medication Instructions Recorded Confirmed Last Taken acetaminophen 500 mg tablet 500 mg PO QAM chronic pain 12/15/24 04/05/25 01/16/25 19:30 aloe vera 1 applic topical Q1H PRN Sunburn 12/15/24 04/05/25 Unknown aluminum-mag hydroxide-simethicone 10 ml PO DIRECTED PRN 12/15/24 04/05/25 Unknown 400 mg-400 mg-40 mg/5 mL oral susp Indigestion (Maalox Maximum Strength) bisacodyl 5 mg tablet,delayed 10 mg PO Q3D PRN Constipation 12/15/24 04/05/25 Unknown release (Dulcolax (bisacodyl)) chlorhexidine gluconate 0.12 % 1 applic buccal TID chronic 12/15/24 04/05/25 01/16/25 20:00 mouthwash gingivitis clobazam 10 mg tablet (Onfi) 5 mg PO HS 12/15/24 04/05/25 01/16/25 19:30 deutetrabenazine 36 mg 36 mg PO DAILY 12/15/24 04/05/25 01/16/25 08:30 tablet,extended release 24 hr (Austedo XR) docusate sodium 100 mg capsule 100 mg PO AMHS 12/15/24 04/05/25 01/16/25 19:30 famotidine 40 mg tablet (Pepcid) 40 mg PO DAILY 12/15/24 04/05/25 01/16/25 19:30 glycopyrrolate 1 mg tablet 1 mg PO TID excessive drooling 12/15/24 04/05/25 01/16/25 19:30 (Robinul) hydrocortisone 1 % topical cream 1 applic topical TID PRN Rash 12/15/24 04/05/25 Unknown lamotrigine 100 mg tablet 50 mg PO AMHS 12/15/24 04/05/25 01/16/25 19:30 lamotrigine 200 mg tablet 200 mg PO AMHS 12/15/24 04/05/25 01/16/25 19:30 (Lamictal) levetiracetam 1,000 mg tablet 1,000 mg PO BID 12/15/24 04/05/25 01/16/25 19:30 levetiracetam 500 mg tablet 500 mg PO BID 12/15/24 04/05/25 01/16/25 19:30 (Keppra) loperamide 2 mg capsule (Imodium 2 mg PO DIRECTED PRN Loose Stool 12/15/24 04/05/25 Unknown A-D) multivitamin 1 tab PO QAM 12/15/24 04/05/25 01/16/25 08:30 phosphorated carbohydrate oral 30 ml PO DIRECTED PRN Nausea 12/15/24 04/05/25 Unknown solution (Emetrol oral solution) polyethylene glycol 3350 17 17 g PO QAM 12/15/24 04/05/25 01/16/25 08:30 gram/dose oral powder (Miralax) quetiapine 200 mg tablet (Seroquel) 200 mg PO HS 12/15/24 04/05/25 01/16/25 19:30 quetiapine 50 mg tablet (Seroquel) 50 mg PO QAM 12/15/24 04/05/25 01/16/25 08:30 sertraline 100 mg tablet (Zoloft) 100 mg PO QAM 12/15/24 04/05/25 01/16/25 08:30 cholecalciferol (vitamin D3) 125 125 mcg PO QAM #30 tabs 12/24/24 04/05/25 01/16/25 08:30 mcg (5,000 unit) tablet ferrous sulfate 325 mg (65 mg 325 mg PO BIDM #60 tabs 12/24/24 04/05/25 01/16/25 17:00 iron) tablet,delayed release calcium polycarbophil 625 mg 625 mg PO QAM 01/05/25 04/05/25 01/16/25 08:30 tablet (FiberCon) neomycin-bacitracn Zn-polymyxn 3.5 1 applic topical BID PRN abrasion 01/05/25 04/05/25 Unknown mg-400 unit-5,000 unit top oint until resolved pkt (Triple Antibiotic) acetaminophen 500 mg tablet 1,000 mg PO Q4H PRN elevated 02/09/25 04/05/25 Unknown temp/headache/mild pain fluoride (sodium) 1.1 % dental 1 applic dental BID 02/09/25 04/05/25 Unknown cream (SF 5000 Plus) calcium 500 mg (as 1 tab PO QAM 02/21/25 04/05/25 Unknown carbonate)-vitamin D3 5 mcg (200 unit) tablet nystatin 100,000 unit/gram topical 1 applic topical HS 02/21/25 04/05/25 Unknown cream dextromethorphan-guaifenesin 10 5 ml PO Q4 PRN Cough 04/05/25 04/05/25 Unknown mg-200 mg/5 mL oral liquid metoprolol succinate 25 mg 25 mg PO DAILY 04/05/25 04/05/25 Unknown tablet,extended release 24 hr phenylephrine HCl 10 mg tablet 10 mg PO Q4 PRN colds/runny nose 04/05/25 04/05/25 Unknown Lactobacillus acidoph-L.bulgaricus 1 tab PO DAILY 30 days #30 tabs 04/08/25 Unknown 1 million cell tablet (Floranex) amoxicillin 875 mg-potassium 1 tab PO BID 17 days #34 tabs 04/08/25 Unknown clavulanate 125 mg tablet perphenazine 2 mg tablet 1 mg (1/2 x 2 mg) PO QAM 30 days 04/08/25 Unknown #15 tabs perphenazine 2 mg tablet 3 mg (1.5 x 2 mg) PO HS 30 days 04/08/25 Unknown #45 tabs amoxicillin 875 mg-potassium 1 tab PO BID 3 days #6 tabs 04/11/25 Unknown clavulanate 125 mg tablet perphenazine 2 mg tablet 3 mg (1.5 x 2 mg) PO HS 30 days 04/11/25 Unknown #45 tabs potassium chloride 10 mEq 40 meq (4 x 10 mEq) PO DAILY 7 04/11/25 Unknown tablet,extended release days #28 tabs sodium di- and 1 tab PO QID 7 days #28 tabs 04/11/25 Unknown monophosphate-potassium phos monobasic 250 mg tablet (Phospha Neutral) Active Medications Generic Name Dose Route Start Last Admin Trade Name Pilar PRN Reason Stop Dose Admin Amlodipine Besylate 2.5 mg 04/12/25 09:00 04/13/25 08:25 Amlodipine Besylate 5 Mg Tab PO 05/12/25 08:59 2.5 mg QAM SWAPNA Administration Calcium/Vitamin D 1 tab 04/12/25 11:00 04/13/25 11:01 Calcium 600mg + Vit D 400 Iu Tab PO 05/06/25 08:59 1 tab DAILY@1100 SWAPNA Administration Chlorhexidine Gluconate 15 ml 04/05/25 17:15 04/14/25 10:21 Chlorhexidine Gluconate 0.12% 480 Ml MT 05/05/25 17:14 Not Given TID SWAPNA Clobazam 5 mg 04/05/25 21:00 04/13/25 20:41 Clobazam 5 Mg Tab PO 05/05/25 20:59 5 mg HS SWAPNA Administration Deutetrabenazine 1 each 04/06/25 09:00 04/13/25 08:25 [place] [Patient Own Med] PO 05/06/25 08:59 1 each DAILY SWAPNA Administration Famotidine 40 mg 04/06/25 09:00 04/13/25 08:25 Famotidine 40 Mg Tablet PO 05/06/25 08:59 40 mg DAILY SWAPNA Administration Ceftriaxone Sodium 2,000 mg in 50 mls @ 100 mls/hr 04/11/25 18:30 04/13/25 18:10 Rocephin IV 04/21/25 18:29 Infused Q24H SWAPNA Infusion Lamotrigine 50 mg 04/05/25 21:00 04/13/25 20:41 Lamotrigine 25 Mg Tab PO 05/05/25 20:59 50 mg AMHS SWAPNA Administration Protocol Lamotrigine 200 mg 04/05/25 21:00 04/13/25 20:41 Lamotrigine 100 Mg Tab PO 05/05/25 20:59 200 mg AMHS SWAPNA Administration Protocol Levetiracetam 1,500 mg 04/05/25 21:00 04/11/25 20:40 Levetiracetam 500 Mg Tab PO 05/05/25 20:59 Not Given BID SWAPNA Levetiracetam 1,500 mg 04/11/25 22:00 04/14/25 09:23 Levetiracetam 500 Mg/5 Ml Vial 1500mg IV 05/11/25 21:59 1,500 mg BID SWAPNA Administration Metoprolol Succinate 25 mg 04/12/25 09:00 04/13/25 08:25 Metoprolol Succ 25mg Ext Rel Tab PO 05/12/25 08:59 25 mg QAM SWAPNA Administration Perphenazine 1 mg 04/07/25 09:00 04/13/25 08:25 Perphenazine 2 Mg Tab PO 05/07/25 08:59 1 mg QAM SWAPNA Administration Perphenazine 3 mg 04/06/25 21:00 04/13/25 20:42 Perphenazine 2 Mg Tab PO 05/06/25 20:59 3 mg HS SWAPNA Administration Polyethylene Glycol 17 gm 04/06/25 09:00 04/13/25 08:25 Polyethylene (Miralax) 17 Gm Pack PO 05/06/25 08:59 Not Given QAM SWAPNA Potassium Chloride 40 meq 04/12/25 09:00 04/13/25 08:25 Potassium Chloride 10 Meq Tabcr PO 05/12/25 08:59 40 meq DAILY SWAPNA Administration Potassium Phosphate 1 tab 04/12/25 09:00 04/13/25 20:41 Pot Phosphate Monobasic W/ Sod Tab PO 05/12/25 08:59 1 tab QID SWAPNA Administration Quetiapine Fumarate 50 mg 04/06/25 09:00 04/13/25 08:25 Quetiapine Fumarate 25 Mg Tablet PO 05/06/25 08:59 50 mg QAM SWAPNA Administration Quetiapine Fumarate 200 mg 04/05/25 21:00 04/13/25 22:04 Quetiapine Fumarate 200 Mg Tab PO 05/05/25 20:59 200 mg HS SWAPNA Administration Sertraline HCl 100 mg 04/06/25 09:00 04/13/25 08:25 Sertraline Hcl 100 Mg Tablet PO 05/06/25 08:59 100 mg QAM SWAPNA Administration NPO Date Last Intake of Fluids: 04/13/25 Time Last Intake of Fluids: 23:55 Last Intake of Fluids Comment: Per report - NPO after midnight Date Last Intake of Solids: 04/13/25 Time Last Intake of Solids: 23:55 Last Intake of Solids Comment: per report - NPO after midnight Past Medical History Medical History Candidal cystitis and urethritis Other abnormalities of gait and mobility Respiratory failure with hypoxia hx not known per facility, hospitalized [facility] december 2024. At current O2 sats while awake 95 % per facility. Bilateral pleural effusion Left ureteral calculus Complicated UTI (urinary tract infection) Osteoarthritis of hips, bilateral Autism Severe intellectual disability Nocturnal hypoxemia per facility while in hospital 12/2024, suspected sleep apnea, sats would drop at night. Denies occuring currently. Alcantara catheter in place History of sepsis hospitalized [facility] december 2024. Resolved per facility. History of pneumonia (12/2024) hospitalized at [facility]. december 2024. resolved per facility. Congenital hiatus hernia Umbilical hernia Hydronephrosis with renal and ureteral calculous obstruction Iron deficiency anemia Epilepsy Fatty (change of) liver, not elsewhere classified Psychomotor deficit Flat foot Other acquired deformity of toe toes Myopathy extraocular muscles right orbit Diplopia Other forms of scoliosis, lumbar region Pure hypercholesterolemia, unspecified Major depressive disorder, recurrent Hypermetropia, bilateral Diarrhea, unspecified Drug induced subacute dyskinesia Tremor, unspecified Restlessness and agitation GERD without esophagitis Deficiency of other vitamins Depression Constipation Unspecified cataract Lump of right breast Urinary incontinence Chronic pain Repeated falls facility denies fall in past 90 days. Astigmatism unspecified, right eye unspecified, left eye Chronic gum disease chronic gingivitis , plaque induced Dysphagia Anxiety disorder, unspecified OCD (obsessive compulsive disorder) Dementia unspecified Somnolence Polypharmacy Exercise / Class Metabolic Activity IV < 2 Limit ADL/Bedbound Past Surgical History Surgical History History of cystoscopy (~12/16/24) Cystoscopy with irrigation of bladder and catheter placement. Left ureteroscopy, Retrograde Pyelogram, Left Stent Placement, ureteral dilation, and aspiration of left kidney Grade 2 view, glidescope 3, ETT 7.0. Surgical history unknown Past Anesthesia History No Hx of Anesthesia Complications and No Family Hx of Anesthesia Complications History of PONV No Hx of PONV and No Hx of Motion Sickness Social History Smoking Status: Never smoker Hx Alcohol Use: No Hx Substance Use: No substance use type: does not use Physical Exam Vital Signs Last Vital Signs Temp 36.8 C 04/14/25 13:09 Pulse 75 04/14/25 13:09 Resp 22 04/14/25 13:09 BP 141/73 H 04/14/25 13:09 Pulse Ox 96 04/14/25 13:09 O2 Del Method Room Air 04/14/25 13:09 Constitutional + obese; no acute distress ENMT Mouth: + dentition abnormality, + edentulous, + poor dentition and + small oral opening Thyromental Distance: < 3.5 Finger Breadths Mallampati Class: III Neck normal visual inspection and trachea midline; neck extension not limited Respiratory normal respiratory effort Auscultation: + diminished lung sounds Cardiovascular Rate/Rhythm: regular rate and regular rhythm Heart Sounds: no murmur Vessels: no carotid bruit Musculoskeletal Spine: normal cervical ROM and no pain with cervical ROM Extremities: + extremities abnormal to inspection and full ROM of extremities Neurologic moves all extremities Motor/Sensory: no sensory deficit Psychiatric Orientation: alert and oriented x 3 Testing Laboratory Results 04/14/25 11:05 04/14/25 11:05 PT 10.5 Seconds (9.0-12.0) 04/05/25 11:29 INR 1.0 (0.9-1.1) 04/05/25 11:29 APTT 25 Seconds (21-31) 04/05/25 11:29 Urine Color Yellow 04/12/25 06:55 Urine Appearance Cloudy (Clear) A 04/12/25 06:55 Urine pH 6.5 (4.5-7.5) 04/12/25 06:55 Ur Specific [place] 1.012 (1.000-1.030) 04/12/25 06:55 Urine Protein 1+ (Negative) H 04/12/25 06:55 Urine Glucose (UA) Negative (Negative) 04/12/25 06:55 Urine Ketones Negative (Negative) 04/12/25 06:55 Urine Nitrite Negative (Negative) 04/12/25 06:55 Ur Leukocyte Esterase 3+ (Negative) H 04/12/25 06:55 Urine WBC (Auto) >50 /hpf (0-5) H 04/12/25 06:55 Urine RBC (Auto) >20 /hpf (0-2) H 04/12/25 06:55 U Hyaline Cast (Auto) 3-5 /lpf (0-2) H 04/12/25 06:55 U Epithel Cells (Auto) 0-2 /hpf (0-2) 04/12/25 06:55 Urine Bacteria (Auto) None Seen (None Seen) 04/12/25 06:55 04/12/25 06:55 Urine Culture - Final Urine,Indwelling Cath Sarah albicans 04/11/25 19:48 Aerobic Blood Culture - Preliminary Blood No growth in Aerobic bottle after 48 hours. Anaerobic Blood Culture - Preliminary No growth in Anaerobic bottle after 48 hours. 04/11/25 19:48 Aerobic Blood Culture - Preliminary Blood No growth in Aerobic bottle after 48 hours. Anaerobic Blood Culture - Preliminary No growth in Anaerobic bottle after 48 hours. 04/05/25 11:48 Urine Culture - Final Urine,Clean Catch Proteus mirabilis Electrocardiogram Date: 04/05/25 Findings: + NSR @ (@ 86;LAD;T wave abnl;? lat. ischemia) Chest X-Ray Date: 04/05/25 Findings: + NAD Echocardiogram Date: 03/21/25 EF: 55% LV Function: normal RWMA: + none Other Findings: + diastolic dysfunction (Grade 1) Valvular Disease: + no significant valvular disease severe focal calcification of posterior MV annulus
[2025-04-14] MEDS ORDERED: PROMETHAZINE HCL 6.25 MG in SODIUM CHLORIDE 0.9% 50 ML IV PRN (13:35)
[2025-04-14] MEDS ORDERED: FLUMAZENIL 0.1 MG/1 ML 10 ML VIAL IV PRN (13:35)
[2025-04-14] MEDS ORDERED: NALOXONE HCL 0.4 MG/1 ML VIAL/CARP IV PRN (13:35)
[2025-04-14] MEDS ORDERED: ATROPINE SULFATE 0.1 MG/ML 10ML SYR IV PRN (13:35)
[2025-04-14] MEDS ORDERED: ONDANSETRON INJ 2 MG/ML 2 ML VIAL IV PRN (13:35)
[2025-04-14] MEDS ORDERED: ONDANSETRON INJ 2 MG/ML 2 ML VIAL ONE (13:53)
[2025-04-14] MEDS ORDERED: LIDOCAINE 2% 2 ML VIAL/AMP(20MG/ML) INFIL ONE (13:53)
[2025-04-14] MEDS ORDERED: PROPOFOL IV EMULSION 10 MG/ML 20 ML VIAL IV ONE (13:53)
[2025-04-14] MEDS ORDERED: DEXAMETHASONE SOD INJ 4 MG/ML VIAL ONE (13:53)
[2025-04-14] MEDS ORDERED: ePHEDrine sulfate 50 MG/5 ML SYR ONE (14:27)
[2025-04-14] MEDS: DIATRIZOATE MEGLUMINE 30% 100ML VIAL INSTIL ONE (15:01)
--- NOTE | 2025-04-14 15:20 | Operative Report ---
PG Post Operative Report Pre & Post Diagnosis Bilateral Stones, Infection. Same Operation Date: 04/14/25 08:50 <No data on this case meets the specified criteria> I identified the patient and participated in the time-out.: Yes Procedure Cystoscopy with bladder/urethral biopsy. Bilateral retrograde pyelogram Left Stent removal Right Ureteroscopy, laser lithotripsy, ureteral dilation, stone basket extraction, ureteral dilation, and stent placement. Operation Date: 04/14/25 08:50 <No data on this case meets the specified criteria> Surgeon Dilip Napoles, II, DO Periodicals Library Assistant None Estimated Blood Loss 0 Findings Consistent with Post-Op Diagnosis Stones destroyed to dust and small fragments and larger fragments removed. Ureter dilated on the right No filling defects on the left. Polypoid/cystic lesion of the bladder neck/urethra. Specimens Stone Fragments - Right Bladder/Urethra Biopsy Drains 6 Fr x 26 cm Right 20 Fr Silicone catheter Anesthesia Type General Complications none Disposition Disposition: Recovery Room Indications Patient with bothersome stones. Risks and benefits discussed at length. Description of Procedure Patient was consented and brought back to the operating room. Patient was placed under anesthesia in the supine position and moved to the dorsal lithotomy position. Patient was prepped and draped in the regular sterile fashion. A time out was completed identifying the correct patient and procedure. A 30degree Cystoscope was placed into the bladder and the entire bladder was examined. The UO's were identified. There appeared to be a cystic first polypoid lesion at the bladder neck. This was causing obstruction at the bladder neck. A cold cup biopsy forcep was selected and the lesion was biopsied this was sent for pathologic analysis. Attention was then taken to the left UO with the stent in place. The stent was grasped and partially removed. A wire was then placed. A retrograde pyelogram was completed next to the wire. There was no signs of leak or other issue. No sign of major obstruction no filling defects. There was a moderate amount of debris seen draining from the left ureter after the retrograde pyelogram. Good drainage was appreciated. The stent had been fully removed and the wire removed and the drainage films on the left side appeared to be clear with no major obstruction and no signs of filling defects. Attention was then taken to the right side. The UO was cannulized with a catheter and a retrograde pyelogram was completed. A wire was then placed. A ureteral access sheath and second safety wire was placed. A significant stricture was encountered in the proximal ureter. This was dilated. The flexible ureteroscope was taken into the ureter. The entire ureter and renal pelvis were examined. The stones were identified. A laser fiber was selected and the stones were pulverized to dust and small fragments. Larger fragments were grasped and removed and sent for analysis. The entire area was once again examined. No residual large fragments or areas of concern were noted. The scope was slowly removed with the wire left in place. Contrast was placed through the scope for a pyelogram to assist in stent placement. The entire ureter was examined as the scope was slowly removed. No obstructions or other areas of concern were noted. With the wire in place, a 6 Fr Double J stent was placed. It was confirmed with fluoroscopy. With the stent in place, the bladder was emptied. The scope was removed. A 20 [place] Alcantara catheter was then placed and set to drainage. The patient was cleaned, aroused from anesthesia, and transferred to the pacu in stable condition having tolerated the procedure well with no complications. I was present and participated in all aspects of the procedure. The patient will be monitored in the PACU until transferred. Plan to maintain catheter. Will likely need stent removal in the next 2 to 4 weeks. May need to maintain for extended period of time until infection issues have completely cleared. Bladder is very low capacity I attest to the content of the Intraoperative Record and any orders documented therein. Any exceptions are noted below.
[2025-04-14] MEDS ORDERED: PHENYLEPHRINE 100MCG/ML 5ML SYR ONE (15:29)
--- NOTE | 2025-04-14 15:52 | Fluoroscopy Report ---
INTRAOPERATIVE RADIOGRAPHS CLINICAL HISTORY: Retrograde pyelogram bilaterally with right ureteral stent placement. Fluoro time: 83 seconds Ka,r: 14.45 mGy FINDINGS: 4 spot fluoroscopic views of the abdomen are correlated with abdominal CT dated 03/09/2025. Contrast is injected into both kidneys. No hydronephrosis is seen. The final 2 images show the proxim al and distal ends of a right ureteral stent in appropriate position. The left ureteral stent seen on 03/09/2025 has been removed. IMPRESSION: Intraoperative images from right ureteral stent placement as above. See operative report for detailed findings. Electronically signed by: Celso Waters M.D. 04/14/2025 3:50 PM
--- NOTE | 2025-04-14 16:00 | Anesthesiology Progress Note ---
Date of Service April 14, 2025 Anesthesia Post Procedure Vital Signs Vital Signs: Temp Pulse Pulse Pulse Resp BP BP 04/14/25 15:50 36.4 C L 78 13 164/78 H 04/14/25 15:40 75 18 153/74 H 04/14/25 15:30 70 18 166/71 H 04/14/25 15:23 36.2 C L 75 13 173/79 H 04/14/25 13:09 36.8 C 75 22 141/73 H 04/14/25 11:25 36.9 C 80 18 130/64 04/14/25 08:00 04/14/25 07:39 64 04/14/25 07:36 36.8 C 71 18 115/53 L 04/14/25 04:24 37.5 C 70 16 115/69 04/13/25 22:49 36.7 C 81 18 129/66 04/13/25 20:00 04/13/25 19:52 37.4 C 81 16 148/74 H 04/13/25 16:26 36.7 C 73 20 111/70 Pulse Ox O2 Del Method O2 Flow Rate 04/14/25 15:50 97 Room Air 0 04/14/25 15:40 92 Room Air 0 04/14/25 15:30 100 Oxymask 4 04/14/25 15:23 97 Oxymask 4 04/14/25 13:09 96 Room Air 04/14/25 11:25 93 Room Air 04/14/25 08:00 Room Air 04/14/25 07:39 04/14/25 07:36 92 Room Air 04/14/25 04:24 96 Room Air 04/13/25 22:49 97 Room Air 04/13/25 20:00 Room Air 04/13/25 19:52 96 Room Air 04/13/25 16:26 96 Room Air Transfer of Care Handoff Completed per policy Notes Mental Status: alert / awake / arousable and participated in evaluation Patient Amnestic to Procedure: Yes Nausea / Vomiting: adequately controlled Pain: adequately controlled Airway Patency, RR, SpO2: stable & adequate BP & HR: stable & adequate Hydration State: stable & adequate Anesthetic Complications: no major complications apparent and Pt Satisfied with anesthetic care
[2025-04-14] MEDS: FLUCONAZOLE 200 MG/100 ML BAG IV SCH (16:37)
[2025-04-14] MEDS ORDERED: Nursing to Pharmacy Communication SCH (16:45)
--- NOTE | 2025-04-15 07:10 | Hospitalist Progress Note ---
Date of Service April 15, 2025 Assessment & Plan (1) Nephrolithiasis: (2) Ureteral stent present: (3) Nonverbal: (4) Complicated UTI (urinary tract infection): (5) Severe intellectual disability: (6) Fatty (change of) liver, not elsewhere classified: (7) Tremor, unspecified: Plan 59 yo female with pmhx of severe intellectual disability c/b epilepsy, nonverbal status, fecal/urinary incontinence, s/p recent urethral stent placement, fatty liver disease, GERD, OCD, IAN, who presents for a fall from the [facility]. #Fall #Epilepsy Breakthrough seizures -unclear cause of fall from bed, likely mechanical in nature -per caregiver patient currently at baseline, concern is that UTI cause fall and they do not want her to become septic -lower on differential includes stroke (patient at baseline), arrythmia (unlikely to cause fall from bed), seizures (does have epilepsy so possible) Plan: -gentle hydration -neurology consult, appreciate recs for consideration of seizure and polypharmacy -decreased dose of perphenazine 04/11 while being transported from bed to wheelchair for discharge by staff from the ER, patient noted to have some shaking of the arms and followed by fixed gaze to the right for about 20 seconds Afterwards, patient noted to be back to her baseline Stat CT head ordered: no acute process Stat Labs ordered: Potassium 3.2, phosphorus 2.4, magnesium 1.9 Potassium and phosphorus supplements ordered around 5 PM, patient had a recurrence of the episode Lasted longer for about 10 more seconds Code purple called Seen resting in bed, awake and alert , not in distress blood pressure elevated but not hypoxic clear breath sounds bilaterally, tachycardic Stat dose Ativan 1 mg IM given 2 L of O2 nasal cannula started Assessment and plan Breakthrough seizures Patient missed doses of Lamictal and Keppra over the weekend discussed with neurologist Dr. Alberto Choi Recommend loading dose of Keppra 2000 mg IV, continue usual Keppra dose tonight. If patient refuses, give in IV form Recommend additional Lamictal to 50 mg p.o. now, continue usual Lamictal dose tonight EEG IV potassium, magnesium, phosphorus ordered D5 NS as ordered 04/12 No seizure-like activity overnight Electrolytes better usual Keppra 1500 mg p.o. twice daily converted to IV for now for better adherence continue Lamictal, and other usual meds EEG ordered: Pending 04/13-04/14 Pt in no distress, awake, alert, no seizure like activity reported 04/15 Pt had urologic procedure yesterday, today more drowsy, not very cooperative, poor PO intake #Severe Bacteriuria #Ureteral Stent -unclear if patient has symptoms, hemodynamically stable at this time, no sepsis criteria -UA appears to be significantly infected in setting of chronic colonization Plan: -urology consult, appreciate recs -follow up outpatient -ID consult, appreciate recs 04/10: Urine culture: (+) Proteus deescalated Cefepime to Ceftriaxone d/c on PO Augmentin, to be continued until planned stent removal has been completed on 04/26/25 per ID recommendation will need probiotics x 1 month at least encourage to drink plenty of fluids - transitioned to Augmentin as IV site was pulled Boost ordered for supplement 04/12 continue ceftriaxone IV for now while admitted per ID service, plan to cover with Augmentin after planned Ureteral stent procedure on Apr 26 hence, last day for Augmentin 875mg BID is April 29, 2025 recommend to check complete metabolic profile weekly while on Augmentin course 04/13 Contacted by urology - plan for kidney stone treatment possibly tmrw, npo after MN 04/14 Discussed this AM w/ ID - will give her 800 IV fluconazole today given her last ucultx growing [place] as she is going for invasive procedure to prevent candidemia #Episode of Vomiting KUB: no obstruction, minimal fecal load clear breath sounds BL resume diet, always with assistance vomiting from UTI? Cefepime? continue supportive care, monitor closely -- resolved #Lateral T Wave Inversions -new from 2016 -unclear if any symptoms troponin 10.9--> 15.2--> 11.1 echo: left ventricular wall motion is normal left ventricular systolic function is normal left ventricular ejection fraction = 55-60% right ventricle is normal in size and function severe focal calcification of the posterior mitral valve annulus mild prolapse of the posteriors mitral valve leaflet mild mitral regurgitation grade 1 diastolic dysfunction compared to the report of previous study 12/18/2024, severe mitral annular calcification also noted at that time Mild mitral regurgitaion now noted #Severe Intellectual Disability #OCD #IAN -continue home meds austedo xr, perphenazine (decreased dose), seroquel, zoloft -continue miralax, bisacodyl suppository prn for constipation, -mouth care ordered -continue keppra and lamictal Disposition pending Anticipate discharge to the [facility] when medically stable, after urology procedure Admission and Anticipated Discharge Date Admission Date: April 05, 2025 Subjective Pt seen in follow up Pt had urologic procedure done, left stent removed, now with R stent Today lying in bed , head covered with blankets not very cooperative. Per RN, pt was just washed up and now seems to be tired. Poor oral intake now as well. Pt nonverbal and so difficult to obtain more info. blood work reviewed and ok. vital signs ok. Discussed w/ urology and ID - ok to cont. abx for next 1-2 days. Per previous provider - [facility] caregiver comes to visit to bedside No signs of pain, shortness of breath or seizure activity No other new symptoms Discussed w/urology this AM Review of Systems Review of Systems: Unobtainable due to mental health condition Physical Exam Physical Exam: General- awake, nonverbal, not in distress, breathing with no effort or accessory muscle use Eyes- anicteric Neck- no JVD Lungs- clear breath sounds bilaterally, no crackles or wheezes Heart- normal rate, regular rhythm; no murmurs Abdomen- normal bowel sounds, nondistended, soft, no tenderness Extremities- no pretibial edema, moves extremities Neuro- awake but drowsy , not very cooperative today, moves extremities Skin- warm & dry Results & Data Results & Data Vital Signs (Past 12 Hours) Vital Signs Temp Pulse Pulse Resp BP BP Pulse Ox 04/15/25 03:40 36.5 C 65 16 119/71 95 04/14/25 23:37 36.8 C 68 16 130/78 94 04/14/25 21:45 70 04/14/25 20:00 04/14/25 19:39 36.9 C 71 18 122/73 98 O2 Del Method 04/15/25 03:40 Room Air 04/14/25 23:37 Room Air 04/14/25 21:45 04/14/25 20:00 Room Air 04/14/25 19:39 Room Air Laboratory Results 04/15/25 Range/Units 09:16 WBC 7.93 (4.8-10.8) K/ul RBC 3.66 L (4.20-5.40) M/uL Hgb 9.2 L (12.0-16.0) g/dl Hct 30.3 L (37.0-47.0) % MCV 82.8 (80.0-100.0) fL MCH 25.1 (25.0-34.0) pg MCHC 30.4 L (32.0-36.0) g/dL RDW Std Deviation 51.0 H (36.4-46.3) fL RDW Coeff of Nic 16.9 H (11.5-14.5) % Plt Count 361 (130-400) K/uL MPV 10.0 (9.4-12.4) fL Sodium 138 (136-145) mmol/L Potassium 4.0 (3.5-5.1) mmol/L Chloride 101 (98-107) mmol/L Carbon Dioxide 28 (21-32) mmol/L Anion Gap 9 (3-11) BUN 6 (6-23) mg/dl Creatinine 0.83 (0.6-1.2) mg/dl Est Cr Clr Drug Dosing 56.5 ml/min eGFR 81.16 BUN/Creatinine Ratio 7.2 L (10-20) Glucose 159 H (70-99(Fasting)) mg/dl Calcium 8.8 (8.6-10.3) mg/dl Phosphorus 4.1 (2.5-4.9) mg/dl Magnesium 1.7 (1.7-2.4) mg/dl Total Bilirubin 0.2 (0.2-1.0) mg/dl AST 11 L (13-39) U/L ALT 11 (7-52) U/L Alkaline Phosphatase 162 H (34-104) U/L Total Protein 6.6 (6.0-8.3) gm/dl Albumin 3.3 L (3.4-5.0) gm/dl Globulin 3.3 (2.5-4.0) gm/dl Albumin/Globulin Ratio 1.0 (0.9-2) Medications Administered Current Inpatient Medications Acetaminophen (Acetaminophen 500 Mg Tab) 1,000 mg PO Q4H PRN PRN Reason: elevated temp/headache/mild pain Stop: 05/05/25 16:42 Amlodipine Besylate (Amlodipine Besylate 5 Mg Tab) 2.5 mg PO QAM [facility] Stop: 05/12/25 08:59 Last Admin: 04/14/25 16:56 Dose: 2.5 mg Bisacodyl (Bisacodyl 5 Mg Tabec) 10 mg PO Q3D PRN PRN Reason: Constipation Stop: 05/05/25 16:42 Calcium/Vitamin D (Calcium 600mg + Vit D 400 Iu Tab) 1 tab PO DAILY@1100 [facility] Stop: 05/06/25 08:59 Last Admin: 04/14/25 16:56 Dose: 1 tab Chlorhexidine Gluconate (Chlorhexidine Gluconate 0.12% 480 Ml) 15 ml MT TID SWAPNA Stop: 05/05/25 17:14 Last Admin: 04/14/25 21:30 Dose: Not Given Clobazam (Clobazam 5 Mg Tab) 5 mg PO HS [facility] Stop: 05/05/25 20:59 Last Admin: 04/14/25 21:23 Dose: 5 mg Deutetrabenazine (Austedo [Patient Own Med]) 1 each PO DAILY SWAPNA Stop: 05/06/25 08:59 Last Admin: 04/14/25 17:15 Dose: 1 each Famotidine (Famotidine 40 Mg Tablet) 40 mg PO DAILY [facility] Stop: 05/06/25 08:59 Last Admin: 04/14/25 16:55 Dose: 40 mg Hydralazine HCl (Hydralazine Hcl 20 Mg/Ml Vial) 5 mg IV Q6H PRN PRN Reason: systolic bp > 160 Stop: 05/11/25 18:11 Ceftriaxone Sodium (Rocephin) 2,000 mg in 50 mls @ 100 mls/hr IV Q24H SWAPNA Stop: 04/21/25 18:29 Last Infusion: 04/14/25 18:26 Dose: Infused Lamotrigine (Lamotrigine 25 Mg Tab) 50 mg PO [facility]; Protocol Stop: 05/05/25 20:59 Last Admin: 04/14/25 21:13 Dose: 50 mg Lamotrigine (Lamotrigine 100 Mg Tab) 200 mg PO [facility]; Protocol Stop: 05/05/25 20:59 Last Admin: 04/14/25 21:13 Dose: 200 mg Levetiracetam (Levetiracetam 500 Mg Tab) 1,500 mg PO BID [facility] Stop: 05/05/25 20:59 Last Admin: 04/14/25 21:13 Dose: Not Given Levetiracetam (Levetiracetam 500 Mg/5 Ml Vial 1500mg) 1,500 mg IV BID [facility] Stop: 05/11/25 21:59 Last Admin: 04/14/25 21:32 Dose: 1,500 mg Metoprolol Succinate (Metoprolol Succ 25mg Ext Rel Tab) 25 mg PO QAM [facility] Stop: 05/12/25 08:59 Last Admin: 04/14/25 16:56 Dose: 25 mg Nystatin (Nystatin Powder 15gm Btl) 1 appln EXT Q8 PRN PRN Reason: Affected Skin Folds Stop: 05/14/25 01:07 Ondansetron HCl (Ondansetron Inj 2 Mg/Ml 2 Ml Vial) 4 mg IV Q6H PRN PRN Reason: Nausea Stop: 05/05/25 16:42 Perphenazine (Perphenazine 2 Mg Tab) 1 mg PO QAM [facility] Stop: 05/07/25 08:59 Last Admin: 04/14/25 17:16 Dose: Not Given Perphenazine (Perphenazine 2 Mg Tab) 3 mg PO HS [facility] Stop: 05/06/25 20:59 Last Admin: 04/14/25 21:13 Dose: 3 mg Polyethylene Glycol (Polyethylene (Miralax) 17 Gm Pack) 17 gm PO QAM [facility] Stop: 05/06/25 08:59 Last Admin: 04/14/25 14:17 Dose: Not Given Polyethylene Glycol (Polyethylene (Miralax) 17 Gm Pack) 17 gm PO DAILY PRN PRN Reason: Constipation Stop: 05/05/25 16:42 Potassium Chloride (Potassium Chloride 10 Meq Tabcr) 40 meq PO DAILY [facility] Stop: 05/12/25 08:59 Last Admin: 04/14/25 17:17 Dose: 40 meq Potassium Phosphate (Pot Phosphate Monobasic W/ Sod Tab) 1 tab PO QID [facility] Stop: 05/12/25 08:59 Last Admin: 04/14/25 21:13 Dose: 1 tab Quetiapine Fumarate (Quetiapine Fumarate 25 Mg Tablet) 50 mg PO QAM [facility] Stop: 05/06/25 08:59 Last Admin: 04/14/25 16:53 Dose: 50 mg Quetiapine Fumarate (Quetiapine Fumarate 200 Mg Tab) 200 mg PO HS [facility] Stop: 05/05/25 20:59 Last Admin: 04/14/25 21:14 Dose: 200 mg Sertraline HCl (Sertraline Hcl 100 Mg Tablet) 100 mg PO QAM SWAPNA Stop: 05/06/25 08:59 Last Admin: 04/14/25 17:17 Dose: 100 mg
--- NOTE | 2025-04-15 09:19 | Urology Progress Note ---
Date of Service April 15, 2025 Assessment & Plan (1) Nephrolithiasis: (2) Ureteral stent present: Plan: - Pt POD#1 s/p Cystoscopy with bladder/urethral biopsy. Bilateral retrograde pyelogram. Left Stent removal. Right Ureteroscopy, laser lithotripsy, ureteral dilation, stone basket extraction, ureteral dilation, and stent placement - Doing well, progressing as expected - Afebrile, hemodynamically stable - No new labs at time of visit this morning - Seems to be tolerating right ureteral stent without bother - Alcantara draining appropriately, can remove for voiding trial prior to discharge - Okay to d/c from perspective when medically stable - Recommend d/c with course of PO antibiotics per ID - Expected clinical course reviewed, all questions answered - Keep scheduled outpatient urology follow-up for stent removal - will sign off, please contact her service with any additional questions or concerns Admission and Anticipated Discharge Date Admission Date: April 05, 2025 Subjective Patient seen and examined this morning. She arouses to her name. Appears comfortable. Alcantara intact. Review of Systems Constitutional: as per Subjective / HPI Genitourinary: as per Subjective / HPI Physical Exam Constitutional: no acute distress Respiratory: no respiratory distress and no labored breathing Neurologic: awake Psychiatric: Orientation: alert, oriented to person and cooperative Genitourinary: Alcantara draining clear urine Results & Data Vital Signs (Past 12 Hours) Vital Signs Temp Pulse Pulse Resp BP BP Pulse Ox 04/15/25 07:56 04/15/25 07:45 36.5 C 69 18 129/69 99 04/15/25 07:21 61 04/15/25 03:40 36.5 C 65 16 119/71 95 04/14/25 23:37 36.8 C 68 16 130/78 94 04/14/25 21:45 70 O2 Del Method 04/15/25 07:56 Room Air 04/15/25 07:45 Room Air 04/15/25 07:21 04/15/25 03:40 Room Air 04/14/25 23:37 Room Air 04/14/25 21:45 PG Care Time/CCT Total # of Minutes Spent Total Time Spent with Patient: Total time spent is greater than 50% in coordination of care (as documented) at patient's floor/unit and/or counseling patient: Coding Level of Care Code 99758 SUB INP/OBS CARE 1/25MIN Diagnoses Nephrolithiasis N20.0 Ureteral stent present Z96.0
[2025-04-15 09:42] LABS: Hematocrit (blood only) 30.3 % (37.0-47.0); Hemoglobin 9.2 g/dl (12.0-16.0); Mean Corpuscular Hemoglobin 25.1 pg (25.0-34.0); Mean Corpuscular Volume 82.8 fL (80.0-100.0); Platelet Count 361 K/uL (130-400); RDW Standard Deviation 51.0 fL (36.4-46.3); Red Blood Count 3.66 M/uL (4.20-5.40); White Blood Count 7.93 K/ul (4.8-10.8)
[2025-04-15 10:07] LABS: Alanine Aminotransferase 11.0 U/L (7-52); Albumin Globulin Ratio 1.0 (0.9-2); Albumin Level 3.3 gm/dl (3.4-5.0); Alkaline Phosphatase 162.0 U/L (34-104); Anion Gap 9.0 (3-11); Bilirubin,Total 0.2 mg/dl (0.2-1.0); Blood Urea Nitrogen 6.0 mg/dl (6-23); Calcium 8.8 mg/dl (8.6-10.3); Carbon Dioxide 28.0 mmol/L (21-32); Chloride 101.0 mmol/L (98-107); Creatinine Clr Calc Pharmacy 56.5 ml/min; Globulin 3.3 gm/dl (2.5-4.0); Glucose 159.0 mg/dl (70-99(Fasting)); Magnesium 1.7 mg/dl (1.7-2.4); Potassium 4.0 mmol/L (3.5-5.1); Sodium 138.0 mmol/L (136-145); Total Protein 6.6 gm/dl (6.0-8.3)
[2025-04-15] MEDS: MAGNESIUM SULFATE / D5W 1 GM/100 ML BAG IV ONE (15:03)
[2025-04-16 06:24] LABS: Hematocrit (blood only) 28.9 % (37.0-47.0); Hemoglobin 9.0 g/dl (12.0-16.0); Mean Corpuscular Hemoglobin 25.4 pg (25.0-34.0); Mean Corpuscular Volume 81.4 fL (80.0-100.0); Platelet Count 355 K/uL (130-400); RDW Standard Deviation 50.7 fL (36.4-46.3); Red Blood Count 3.55 M/uL (4.20-5.40); White Blood Count 8.42 K/ul (4.8-10.8)
[2025-04-16 06:53] LABS: Anion Gap 6.0 (3-11); Blood Urea Nitrogen 5.0 mg/dl (6-23); Calcium 9.0 mg/dl (8.6-10.3); Carbon Dioxide 30.0 mmol/L (21-32); Chloride 103.0 mmol/L (98-107); Creatinine Clr Calc Pharmacy 57.5 ml/min; Glucose 97.0 mg/dl (70-99(Fasting)); Magnesium 1.9 mg/dl (1.7-2.4); Potassium 4.3 mmol/L (3.5-5.1); Sodium 139.0 mmol/L (136-145)
--- NOTE | 2025-04-16 08:04 | Hospitalist Progress Note ---
Date of Service April 16, 2025 Assessment & Plan (1) Nephrolithiasis: (2) Ureteral stent present: (3) Nonverbal: (4) Complicated UTI (urinary tract infection): (5) Severe intellectual disability: (6) Fatty (change of) liver, not elsewhere classified: (7) Tremor, unspecified: Plan 59 yo female with pmhx of severe intellectual disability c/b epilepsy, nonverbal status, fecal/urinary incontinence, s/p recent urethral stent placement, fatty liver disease, GERD, OCD, IAN, who presents for a fall from the [facility]. #Fall #Epilepsy Breakthrough seizures -unclear cause of fall from bed, likely mechanical in nature -per caregiver patient currently at baseline, concern is that UTI cause fall and they do not want her to become septic -lower on differential includes stroke (patient at baseline), arrythmia (unlikely to cause fall from bed), seizures (does have epilepsy so possible) Plan: -gentle hydration -neurology consult, appreciate recs for consideration of seizure and polypharmacy -decreased dose of perphenazine 04/11 while being transported from bed to wheelchair for discharge by staff from the ER, patient noted to have some shaking of the arms and followed by fixed gaze to the right for about 20 seconds Afterwards, patient noted to be back to her baseline Stat CT head ordered: no acute process Stat Labs ordered: Potassium 3.2, phosphorus 2.4, magnesium 1.9 Potassium and phosphorus supplements ordered around 5 PM, patient had a recurrence of the episode Lasted longer for about 10 more seconds Code purple called Seen resting in bed, awake and alert , not in distress blood pressure elevated but not hypoxic clear breath sounds bilaterally, tachycardic Stat dose Ativan 1 mg IM given 2 L of O2 nasal cannula started Assessment and plan Breakthrough seizures Patient missed doses of Lamictal and Keppra over the weekend discussed with neurologist Dr. Alberto Choi Recommend loading dose of Keppra 2000 mg IV, continue usual Keppra dose tonight. If patient refuses, give in IV form Recommend additional Lamictal to 50 mg p.o. now, continue usual Lamictal dose tonight EEG IV potassium, magnesium, phosphorus ordered D5 NS as ordered 04/12 No seizure-like activity overnight Electrolytes better usual Keppra 1500 mg p.o. twice daily converted to IV for now for better adherence continue Lamictal, and other usual meds EEG ordered: Pending 04/13-04/14 Pt in no distress, awake, alert, no seizure like activity reported 04/15 Pt had urologic procedure yesterday, today more drowsy, not very cooperative, poor PO intake 04/16 Pt awake, cooperative, had breakfast and took her po meds this AM. Overall pt appears comfortable. #Severe Bacteriuria #Ureteral Stent -unclear if patient has symptoms, hemodynamically stable at this time, no sepsis criteria -UA appears to be significantly infected in setting of chronic colonization Plan: -urology consult, appreciate recs -follow up outpatient -ID consult, appreciate recs 04/10: Urine culture: (+) Proteus deescalated Cefepime to Ceftriaxone d/c on PO Augmentin, to be continued until planned stent removal has been completed on 04/26/25 per ID recommendation will need probiotics x 1 month at least encourage to drink plenty of fluids - transitioned to Augmentin as IV site was pulled Boost ordered for supplement 04/12 continue ceftriaxone IV for now while admitted per ID service, plan to cover with Augmentin after planned Ureteral stent procedure on Apr 26 hence, last day for Augmentin 875mg BID is April 29, 2025 recommend to check complete metabolic profile weekly while on Augmentin course 04/13 Contacted by urology - plan for kidney stone treatment possibly tmrw, npo after [place] 04/14 Discussed this AM w/ ID - will give her 800 IV fluconazole today given her last ucultx growing [place] as she is going for invasive procedure to prevent candidemia #Episode of Vomiting KUB: no obstruction, minimal fecal load clear breath sounds BL resume diet, always with assistance vomiting from UTI? Cefepime? continue supportive care, monitor closely -- resolved #Lateral T Wave Inversions -new from 2016 -unclear if any symptoms troponin 10.9--> 15.2--> 11.1 echo: left ventricular wall motion is normal left ventricular systolic function is normal left ventricular ejection fraction = 55-60% right ventricle is normal in size and function severe focal calcification of the posterior mitral valve annulus mild prolapse of the posteriors mitral valve leaflet mild mitral regurgitation grade 1 diastolic dysfunction compared to the report of previous study 12/18/2024, severe mitral annular calcification also noted at that time Mild mitral regurgitaion now noted #Severe Intellectual Disability #OCD #IAN -continue home meds austedo xr, perphenazine (decreased dose), seroquel, zoloft -continue miralax, bisacodyl suppository prn for constipation, -mouth care ordered -continue keppra and lamictal Disposition pending Anticipate discharge to the [facility] when medically stable, after urology procedure. Per CM, [facility] can take pt after holiday weekend, on Friday Admission and Anticipated Discharge Date Admission Date: April 05, 2025 Subjective Pt seen in follow up Pt had urologic procedure done, left stent removed, now with R stent Today lying in bed, more awake, cooperative. Pt seen with RN at the bedside, reportedly pt ate breakfast and took her pills. [facility] caregiver was present in the morning. No signs of pain, shortness of breath or seizure activity No other new symptoms Review of Systems Review of Systems: All systems reviewed & are unremarkable except as noted in Subjective Physical Exam Physical Exam: General- awake, nonverbal, not in distress, breathing with no effort or accessory muscle use Eyes- anicteric Neck- no JVD Lungs- clear breath sounds bilaterally, no crackles or wheezes Heart- normal rate, regular rhythm; no murmurs Abdomen- normal bowel sounds, nondistended, soft, no tenderness Extremities- no pretibial edema, moves extremities Neuro- awake but drowsy , not very cooperative today, moves extremities Skin- warm & dry Results & Data Results & Data Vital Signs (Past 12 Hours) Vital Signs Temp Pulse Pulse Resp BP Pulse Ox O2 Del Method 04/16/25 07:35 62 04/16/25 04:34 37 C 68 18 130/75 97 Room Air 04/16/25 04:00 37.0 C 68 18 130/75 97 Room Air 04/15/25 22:57 36.7 C 66 18 118/71 96 Room Air 04/15/25 21:46 63 04/15/25 20:25 Room Air Laboratory Results 04/16/25 04/15/25 Range/Units 06:11 09:16 WBC 8.42 7.93 (4.8-10.8) K/ul RBC 3.55 L 3.66 L (4.20-5.40) M/uL Hgb 9.0 L 9.2 L (12.0-16.0) g/dl Hct 28.9 L 30.3 L (37.0-47.0) % MCV 81.4 82.8 (80.0-100.0) fL MCH 25.4 25.1 (25.0-34.0) pg MCHC 31.1 L 30.4 L (32.0-36.0) g/dL RDW Std Deviation 50.7 H 51.0 H (36.4-46.3) fL RDW Coeff of Nic 16.8 H 16.9 H (11.5-14.5) % Plt Count 355 361 (130-400) K/uL MPV 10.0 10.0 (9.4-12.4) fL Sodium 139 138 (136-145) mmol/L Potassium 4.3 4.0 (3.5-5.1) mmol/L Chloride 103 101 (98-107) mmol/L Carbon Dioxide 30 28 (21-32) mmol/L Anion Gap 6 9 (3-11) BUN 5 L 6 (6-23) mg/dl Creatinine 0.82 0.83 (0.6-1.2) mg/dl Est Cr Clr Drug Dosing 57.5 56.5 ml/min eGFR 82.35 81.16 BUN/Creatinine Ratio 6.1 L 7.2 L (10-20) Glucose 97 159 H (70-99(Fasting)) mg/dl Calcium 9.0 8.8 (8.6-10.3) mg/dl Phosphorus 4.6 4.1 (2.5-4.9) mg/dl Magnesium 1.9 1.7 (1.7-2.4) mg/dl Total Bilirubin 0.2 (0.2-1.0) mg/dl AST 11 L (13-39) U/L ALT 11 (7-52) U/L Alkaline Phosphatase 162 H (34-104) U/L Total Protein 6.6 (6.0-8.3) gm/dl Albumin 3.3 L (3.4-5.0) gm/dl Globulin 3.3 (2.5-4.0) gm/dl Albumin/Globulin Ratio 1.0 (0.9-2) Medications Administered Current Inpatient Medications Acetaminophen (Acetaminophen 500 Mg Tab) 1,000 mg PO Q4H PRN PRN Reason: elevated temp/headache/mild pain Stop: 05/05/25 16:42 Amlodipine Besylate (Amlodipine Besylate 5 Mg Tab) 2.5 mg PO QAM [facility] Stop: 05/12/25 08:59 Last Admin: 04/15/25 08:07 Dose: 2.5 mg Bisacodyl (Bisacodyl 5 Mg Tabec) 10 mg PO Q3D PRN PRN Reason: Constipation Stop: 05/05/25 16:42 Calcium/Vitamin D (Calcium 600mg + Vit D 400 Iu Tab) 1 tab PO DAILY@1100 [facility] Stop: 05/06/25 08:59 Last Admin: 04/15/25 11:02 Dose: 1 tab Chlorhexidine Gluconate (Chlorhexidine Gluconate 0.12% 480 Ml) 15 ml MT TID [facility] Stop: 05/05/25 17:14 Last Admin: 04/15/25 22:06 Dose: 15 ml Clobazam (Clobazam 5 Mg Tab) 5 mg PO HS [facility] Stop: 05/05/25 20:59 Last Admin: 04/15/25 22:21 Dose: 5 mg Deutetrabenazine (Austedo [Patient Own Med]) 1 each PO DAILY [facility] Stop: 05/06/25 08:59 Last Admin: 04/15/25 08:06 Dose: 1 each Famotidine (Famotidine 40 Mg Tablet) 40 mg PO DAILY [facility] Stop: 05/06/25 08:59 Last Admin: 04/15/25 08:10 Dose: 40 mg Hydralazine HCl (Hydralazine Hcl 20 Mg/Ml Vial) 5 mg IV Q6H PRN PRN Reason: systolic bp > 160 Stop: 05/11/25 18:11 Ceftriaxone Sodium (Rocephin) 2,000 mg in 50 mls @ 100 mls/hr IV Q24H [facility] Stop: 04/21/25 18:29 Last Infusion: 04/15/25 17:45 Dose: Infused Lamotrigine (Lamotrigine 25 Mg Tab) 50 mg PO [facility]; Protocol Stop: 05/05/25 20:59 Last Admin: 04/15/25 22:05 Dose: 25 mg Lamotrigine (Lamotrigine 100 Mg Tab) 200 mg PO [facility]; Protocol Stop: 05/05/25 20:59 Last Admin: 04/15/25 22:46 Dose: Not Given Levetiracetam (Levetiracetam 500 Mg Tab) 1,500 mg PO BID [facility] Stop: 05/05/25 20:59 Last Admin: 04/15/25 08:13 Dose: Not Given Levetiracetam (Levetiracetam 500 Mg/5 Ml Vial 1500mg) 1,500 mg IV BID [facility] Stop: 05/11/25 21:59 Last Admin: 04/15/25 22:06 Dose: 1,500 mg Metoprolol Succinate (Metoprolol Succ 25mg Ext Rel Tab) 25 mg PO QAM [facility] Stop: 05/12/25 08:59 Last Admin: 04/15/25 08:10 Dose: 25 mg Nystatin (Nystatin Powder 15gm Btl) 1 appln EXT Q8 PRN PRN Reason: Affected Skin Folds Stop: 05/14/25 01:07 Ondansetron HCl (Ondansetron Inj 2 Mg/Ml 2 Ml Vial) 4 mg IV Q6H PRN PRN Reason: Nausea Stop: 05/05/25 16:42 Perphenazine (Perphenazine 2 Mg Tab) 1 mg PO QAM [facility] Stop: 05/07/25 08:59 Last Admin: 04/15/25 08:06 Dose: 1 mg Perphenazine (Perphenazine 2 Mg Tab) 3 mg PO HS [facility] Stop: 05/06/25 20:59 Last Admin: 04/15/25 22:46 Dose: Not Given Polyethylene Glycol (Polyethylene (Miralax) 17 Gm Pack) 17 gm PO QAM [facility] Stop: 05/06/25 08:59 Last Admin: 04/15/25 08:17 Dose: 17 gm Polyethylene Glycol (Polyethylene (Miralax) 17 Gm Pack) 17 gm PO DAILY PRN PRN Reason: Constipation Stop: 05/05/25 16:42 Potassium Chloride (Potassium Chloride 10 Meq Tabcr) 40 meq PO DAILY [facility] Stop: 05/12/25 08:59 Last Admin: 04/15/25 08:11 Dose: 40 meq Potassium Phosphate (Pot Phosphate Monobasic W/ Sod Tab) 1 tab PO QID [facility] Stop: 05/12/25 08:59 Last Admin: 04/15/25 22:04 Dose: 1 tab Quetiapine Fumarate (Quetiapine Fumarate 25 Mg Tablet) 50 mg PO QAM [facility] Stop: 05/06/25 08:59 Last Admin: 04/15/25 08:34 Dose: 50 mg Quetiapine Fumarate (Quetiapine Fumarate 200 Mg Tab) 200 mg PO HS [facility] Stop: 05/05/25 20:59 Last Admin: 04/15/25 22:04 Dose: 200 mg Sertraline HCl (Sertraline Hcl 100 Mg Tablet) 100 mg PO QAM [facility] Stop: 05/06/25 08:59 Last Admin: 04/15/25 08:09 Dose: 100 mg
[2025-04-16] MEDS: LACTOBACILLUS ACIDOPHILUS 1 GM PACK PO SCH (11:58)
[2025-04-17 07:00] LABS: Hematocrit (blood only) 29.3 % (37.0-47.0); Hemoglobin 9.0 g/dl (12.0-16.0); Mean Corpuscular Hemoglobin 25.4 pg (25.0-34.0); Mean Corpuscular Volume 82.5 fL (80.0-100.0); Platelet Count 343 K/uL (130-400); RDW Standard Deviation 51.4 fL (36.4-46.3); Red Blood Count 3.55 M/uL (4.20-5.40); White Blood Count 8.61 K/ul (4.8-10.8)
[2025-04-17 07:29] LABS: Anion Gap 5.0 (3-11); Blood Urea Nitrogen 7.0 mg/dl (6-23); Calcium 9.1 mg/dl (8.6-10.3); Carbon Dioxide 34.0 mmol/L (21-32); Chloride 100.0 mmol/L (98-107); Creatinine Clr Calc Pharmacy 52.0 ml/min; Glucose 99.0 mg/dl (70-99(Fasting)); Magnesium 1.7 mg/dl (1.7-2.4); Potassium 4.3 mmol/L (3.5-5.1); Sodium 139.0 mmol/L (136-145)
--- NOTE | 2025-04-17 07:53 | Hospitalist Progress Note ---
Date of Service April 17, 2025 Assessment & Plan (1) Nephrolithiasis: (2) Ureteral stent present: (3) Nonverbal: (4) Complicated UTI (urinary tract infection): (5) Severe intellectual disability: (6) Fatty (change of) liver, not elsewhere classified: (7) Tremor, unspecified: Plan 59 yo female with pmhx of severe intellectual disability c/b epilepsy, nonverbal status, fecal/urinary incontinence, s/p recent urethral stent placement, fatty liver disease, GERD, OCD, IAN, who presents for a fall from the [facility]. #Fall #Epilepsy Breakthrough seizures -unclear cause of fall from bed, likely mechanical in nature -per caregiver patient currently at baseline, concern is that UTI cause fall and they do not want her to become septic -lower on differential includes stroke (patient at baseline), arrythmia (unlikely to cause fall from bed), seizures (does have epilepsy so possible) Plan: -gentle hydration -neurology consult, appreciate recs for consideration of seizure and polypharmacy -decreased dose of perphenazine 04/11 while being transported from bed to wheelchair for discharge by staff from the ER, patient noted to have some shaking of the arms and followed by fixed gaze to the right for about 20 seconds Afterwards, patient noted to be back to her baseline Stat CT head ordered: no acute process Stat Labs ordered: Potassium 3.2, phosphorus 2.4, magnesium 1.9 Potassium and phosphorus supplements ordered around 5 PM, patient had a recurrence of the episode Lasted longer for about 10 more seconds Code purple called Seen resting in bed, awake and alert , not in distress blood pressure elevated but not hypoxic clear breath sounds bilaterally, tachycardic Stat dose Ativan 1 mg IM given 2 L of O2 nasal cannula started Assessment and plan Breakthrough seizures Patient missed doses of Lamictal and Keppra over the weekend Discussed with neurologist Dr. Alberto Choi Recommend loading dose of Keppra 2000 mg IV, continue usual Keppra dose tonight. If patient refuses, give in IV form Recommend additional Lamictal to 50 mg p.o. now, continue usual Lamictal dose tonight EEG IV potassium, magnesium, phosphorus ordered D5 NS as ordered 04/12 No seizure-like activity overnight Electrolytes better usual Keppra 1500 mg p.o. twice daily converted to IV for now for better adherence continue Lamictal, and other usual meds EEG ordered: Pending 04/13-04/14 Pt in no distress, awake, alert, no seizure like activity reported 04/15 Pt had urologic procedure yesterday, today more drowsy, not very cooperative, poor PO intake 04/16 Pt awake, cooperative, had breakfast and took her po meds this AM. Overall pt appears comfortable. 04/17 Overnight pulled out her [place]. Not very cooperative this AM, did not take po meds AM, will try again later today. Per RN pt is voiding w/o difficulty. #Severe Bacteriuria #Ureteral Stent -unclear if patient has symptoms, hemodynamically stable at this time, no sepsis criteria -UA appears to be significantly infected in setting of chronic colonization Plan: -urology consult, appreciate recs -follow up outpatient -ID consult, appreciate recs 04/10: Urine culture: (+) Proteus deescalated Cefepime to Ceftriaxone d/c on PO Augmentin, to be continued until planned stent removal has been completed on 04/26/25 per ID recommendation will need probiotics x 1 month at least encourage to drink plenty of fluids - transitioned to Augmentin as IV site was pulled Boost ordered for supplement 04/12 continue ceftriaxone IV for now while admitted per ID service, plan to cover with Augmentin after planned Ureteral stent procedure on Apr 26 hence, last day for Augmentin 875mg BID is April 29, 2025 recommend to check complete metabolic profile weekly while on Augmentin course 04/13 Contacted by urology - plan for kidney stone treatment possibly tmrw, npo after [place] 04/14 Discussed this AM w/ ID - will give her 800 IV fluconazole today given her last ucultx growing [place] as she is going for invasive procedure to prevent candidemia #Episode of Vomiting KUB: no obstruction, minimal fecal load clear breath sounds BL resume diet, always with assistance vomiting from UTI? Cefepime? continue supportive care, monitor closely -- resolved #Lateral T Wave Inversions -new from 2017 -unclear if any symptoms troponin 10.9--> 15.2--> 11.1 echo: left ventricular wall motion is normal left ventricular systolic function is normal left ventricular ejection fraction = 55-60% right ventricle is normal in size and function severe focal calcification of the posterior mitral valve annulus mild prolapse of the posteriors mitral valve leaflet mild mitral regurgitation grade 1 diastolic dysfunction compared to the report of previous study 12/18/2024, severe mitral annular calcification also noted at that time Mild mitral regurgitaion now noted #Severe Intellectual Disability #OCD #IAN -continue home meds austedo xr, perphenazine (decreased dose), seroquel, zoloft -continue miralax, bisacodyl suppository prn for constipation, -mouth care ordered -continue keppra and lamictal Disposition pending Anticipate discharge to the [facility] when medically stable, after urology procedure. Per CM, [facility] can take pt after holiday weekend, on Friday Admission and Anticipated Discharge Date Admission Date: April 05, 2025 Subjective Pt seen in follow up Pt had urologic procedure done, left stent removed, now with R stent Overnight pt removed her [place] Today lying in bed, less cooperative. Pt seen with RN, pt did not take her pills this AM - will try again later today.. [facility] caregiver was present yesterday morning and pt took her pills. No signs of pain, shortness of breath or seizure activity No other new symptoms Review of Systems Review of Systems: All systems reviewed & are unremarkable except as noted in Subjective Physical Exam Physical Exam: General- awake, nonverbal, not in distress, breathing with no effort or accessory muscle use Eyes- anicteric Neck- no JVD Lungs- clear breath sounds bilaterally, no crackles or wheezes Heart- normal rate, regular rhythm; no murmurs Abdomen- normal bowel sounds, nondistended, soft, no tenderness Extremities- no pretibial edema, moves extremities - pt removed her [place] overnight, per RN pt is voiding ok Neuro- awake but drowsy , not very cooperative today, moves extremities Skin- warm & dry Results & Data Results & Data Vital Signs (Past 12 Hours) Vital Signs Temp Pulse Pulse Resp BP BP Pulse Ox 04/17/25 07:44 68 04/17/25 03:50 36.6 C 71 18 119/77 95 04/16/25 23:02 37.0 C 67 18 123/60 97 04/16/25 22:07 72 04/16/25 21:35 O2 Del Method 04/17/25 07:44 04/17/25 03:50 Room Air 04/16/25 23:02 Room Air 04/16/25 22:07 04/16/25 21:35 Room Air Laboratory Results 04/17/25 Range/Units 06:11 WBC 8.61 (4.8-10.8) K/ul RBC 3.55 L (4.20-5.40) M/uL Hgb 9.0 L (12.0-16.0) g/dl Hct 29.3 L (37.0-47.0) % MCV 82.5 (80.0-100.0) fL MCH 25.4 (25.0-34.0) pg MCHC 30.7 L (32.0-36.0) g/dL RDW Std Deviation 51.4 H (36.4-46.3) fL RDW Coeff of Nic 17.2 H (11.5-14.5) % Plt Count 343 (130-400) K/uL MPV 10.5 (9.4-12.4) fL Sodium 139 (136-145) mmol/L Potassium 4.3 (3.5-5.1) mmol/L Chloride 100 (98-107) mmol/L Carbon Dioxide 34 H (21-32) mmol/L Anion Gap 5 (3-11) BUN 7 (6-23) mg/dl Creatinine 0.90 (0.6-1.2) mg/dl Est Cr Clr Drug Dosing 52.0 ml/min eGFR 73.64 BUN/Creatinine Ratio 7.8 L (10-20) Glucose 99 (70-99(Fasting)) mg/dl Calcium 9.1 (8.6-10.3) mg/dl Phosphorus 4.3 (2.5-4.9) mg/dl Magnesium 1.7 (1.7-2.4) mg/dl Medications Administered Current Inpatient Medications Acetaminophen (Acetaminophen 500 Mg Tab) 1,000 mg PO Q4H PRN PRN Reason: elevated temp/headache/mild pain Stop: 05/05/25 16:42 Amlodipine Besylate (Amlodipine Besylate 5 Mg Tab) 2.5 mg PO QAM [facility] Stop: 05/12/25 08:59 Last Admin: 04/16/25 08:37 Dose: 2.5 mg Bisacodyl (Bisacodyl 5 Mg Tabec) 10 mg PO Q3D PRN PRN Reason: Constipation Stop: 05/05/25 16:42 Calcium/Vitamin D (Calcium 600mg + Vit D 400 Iu Tab) 1 tab PO DAILY@1100 [facility] Stop: 05/06/25 08:59 Last Admin: 04/16/25 11:58 Dose: 1 tab Chlorhexidine Gluconate (Chlorhexidine Gluconate 0.12% 480 Ml) 15 ml MT TID [facility] Stop: 05/05/25 17:14 Last Admin: 04/16/25 22:04 Dose: 15 ml Clobazam (Clobazam 5 Mg Tab) 5 mg PO HS [facility] Stop: 05/05/25 20:59 Last Admin: 04/16/25 21:41 Dose: 5 mg Deutetrabenazine (Austedo [Patient Own Med]) 1 each PO DAILY [facility] Stop: 05/06/25 08:59 Last Admin: 04/16/25 08:38 Dose: 1 each Famotidine (Famotidine 40 Mg Tablet) 40 mg PO DAILY [facility] Stop: 05/06/25 08:59 Last Admin: 04/16/25 08:37 Dose: 40 mg Hydralazine HCl (Hydralazine Hcl 20 Mg/Ml Vial) 5 mg IV Q6H PRN PRN Reason: systolic bp > 160 Stop: 05/11/25 18:11 Ceftriaxone Sodium (Rocephin) 2,000 mg in 50 mls @ 100 mls/hr IV Q24H [facility] Stop: 04/21/25 18:29 Last Infusion: 04/16/25 18:12 Dose: Infused Magnesium Sulfate/Dextrose (Magnesium Sulfate / D5w) 1 gm in 100 mls @ 50 mls/hr IV ONE ONE Stop: 04/17/25 09:51 Lactobacillus Acidophilus (Lactobacillus Acidophilus 1 Gm Pack) 1 packet PO TIDM [facility] Stop: 05/16/25 11:59 Last Admin: 04/16/25 16:28 Dose: 1 packet Lamotrigine (Lamotrigine 25 Mg Tab) 50 mg PO [facility]; Protocol Stop: 05/05/25 20:59 Last Admin: 04/16/25 22:04 Dose: 50 mg Lamotrigine (Lamotrigine 100 Mg Tab) 200 mg PO [facility]; Protocol Stop: 05/05/25 20:59 Last Admin: 04/16/25 21:58 Dose: 200 mg Levetiracetam (Levetiracetam 500 Mg Tab) 1,500 mg PO BID [facility] Stop: 05/05/25 20:59 Last Admin: 04/15/25 08:13 Dose: Not Given Levetiracetam (Levetiracetam 500 Mg/5 Ml Vial 1500mg) 1,500 mg IV BID [facility] Stop: 05/11/25 21:59 Last Admin: 04/16/25 22:05 Dose: 1,500 mg Metoprolol Succinate (Metoprolol Succ 25mg Ext Rel Tab) 25 mg PO QAM [facility] Stop: 05/12/25 08:59 Last Admin: 04/16/25 08:39 Dose: 25 mg Nystatin (Nystatin Powder 15gm Btl) 1 appln EXT Q8 PRN PRN Reason: Affected Skin Folds Stop: 05/14/25 01:07 Ondansetron HCl (Ondansetron Inj 2 Mg/Ml 2 Ml Vial) 4 mg IV Q6H PRN PRN Reason: Nausea Stop: 05/05/25 16:42 Perphenazine (Perphenazine 2 Mg Tab) 1 mg PO QAM [facility] Stop: 05/07/25 08:59 Last Admin: 04/16/25 08:36 Dose: 1 mg Perphenazine (Perphenazine 2 Mg Tab) 3 mg PO HS [facility] Stop: 05/06/25 20:59 Last Admin: 04/16/25 22:02 Dose: 3 mg Polyethylene Glycol (Polyethylene (Miralax) 17 Gm Pack) 17 gm PO QAM [facility] Stop: 05/06/25 08:59 Last Admin: 04/16/25 08:40 Dose: Not Given Polyethylene Glycol (Polyethylene (Miralax) 17 Gm Pack) 17 gm PO DAILY PRN PRN Reason: Constipation Stop: 05/05/25 16:42 Potassium Chloride (Potassium Chloride 10 Meq Tabcr) 40 meq PO DAILY [facility] Stop: 05/12/25 08:59 Last Admin: 04/16/25 08:53 Dose: 40 meq Potassium Phosphate (Pot Phosphate Monobasic W/ Sod Tab) 1 tab PO QID [facility] Stop: 05/12/25 08:59 Last Admin: 04/16/25 21:41 Dose: 1 tab Quetiapine Fumarate (Quetiapine Fumarate 25 Mg Tablet) 50 mg PO QAM [facility] Stop: 05/06/25 08:59 Last Admin: 04/16/25 08:39 Dose: 50 mg Quetiapine Fumarate (Quetiapine Fumarate 200 Mg Tab) 200 mg PO HS [facility] Stop: 05/05/25 20:59 Last Admin: 04/16/25 22:57 Dose: 200 mg Sertraline HCl (Sertraline Hcl 100 Mg Tablet) 100 mg PO QAM [facility] Stop: 05/06/25 08:59 Last Admin: 04/16/25 08:40 Dose: 100 mg
[2025-04-17] MEDS: MAGNESIUM SULFATE / D5W 1 GM/100 ML BAG IV ONE (10:16)
[2025-04-18 07:19] LABS: Hematocrit (blood only) 29.7 % (37.0-47.0); Hemoglobin 9.2 g/dl (12.0-16.0); Mean Corpuscular Hemoglobin 24.9 pg (25.0-34.0); Mean Corpuscular Volume 80.3 fL (80.0-100.0); Platelet Count 335 K/uL (130-400); RDW Standard Deviation 50.8 fL (36.4-46.3); Red Blood Count 3.70 M/uL (4.20-5.40); White Blood Count 7.85 K/ul (4.8-10.8)
[2025-04-18 07:32] LABS: Anion Gap 5.0 (3-11); Blood Urea Nitrogen 9.0 mg/dl (6-23); Calcium 8.8 mg/dl (8.6-10.3); Carbon Dioxide 32.0 mmol/L (21-32); Chloride 102.0 mmol/L (98-107); Creatinine Clr Calc Pharmacy 59.0 ml/min; Glucose 105.0 mg/dl (70-99(Fasting)); Magnesium 1.9 mg/dl (1.7-2.4); Potassium 4.5 mmol/L (3.5-5.1); Sodium 139.0 mmol/L (136-145)
--- NOTE | 2025-04-18 08:36 | Hospitalist Progress Note ---
Date of Service April 18, 2025 Assessment & Plan (1) Nephrolithiasis: (2) Ureteral stent present: (3) Nonverbal: (4) Complicated UTI (urinary tract infection): (5) Severe intellectual disability: (6) Fatty (change of) liver, not elsewhere classified: (7) Tremor, unspecified: Plan 59 yo female with pmhx of severe intellectual disability c/b epilepsy, nonverbal status, fecal/urinary incontinence, s/p recent urethral stent placement, fatty liver disease, GERD, OCD, IAN, who presents for a fall from the [facility]. #Fall #Epilepsy Breakthrough seizures -unclear cause of fall from bed, likely mechanical in nature -per caregiver patient currently at baseline, concern is that UTI cause fall and they do not want her to become septic -lower on differential includes stroke (patient at baseline), arrythmia (unlikely to cause fall from bed), seizures (does have epilepsy so possible) Plan: -gentle hydration -neurology consult, appreciate recs for consideration of seizure and polypharmacy -decreased dose of perphenazine 04/11 while being transported from bed to wheelchair for discharge by staff from the ER, patient noted to have some shaking of the arms and followed by fixed gaze to the right for about 20 seconds Afterwards, patient noted to be back to her baseline Stat CT head ordered: no acute process Stat Labs ordered: Potassium 3.2, phosphorus 2.4, magnesium 1.9 Potassium and phosphorus supplements ordered around 5 PM, patient had a recurrence of the episode Lasted longer for about 10 more seconds Code purple called Seen resting in bed, awake and alert , not in distress blood pressure elevated but not hypoxic clear breath sounds bilaterally, tachycardic Stat dose Ativan 1 mg IM given 2 L of O2 nasal cannula started Assessment and plan Breakthrough seizures Patient missed doses of Lamictal and Keppra over the weekend Discussed with neurologist Dr. Alberto Choi Recommend loading dose of Keppra 2000 mg IV, continue usual Keppra dose tonight. If patient refuses, give in IV form Recommend additional Lamictal to 50 mg p.o. now, continue usual Lamictal dose tonight EEG IV potassium, magnesium, phosphorus ordered D5 NS as ordered 04/12 No seizure-like activity overnight Electrolytes better usual Keppra 1500 mg p.o. twice daily converted to IV for now for better adherence continue Lamictal, and other usual meds EEG ordered: Pending 04/13-04/14 Pt in no distress, awake, alert, no seizure like activity reported 04/15 Pt had urologic procedure yesterday, today more drowsy, not very cooperative, poor PO intake 04/16 Pt awake, cooperative, had breakfast and took her po meds this AM. Overall pt appears comfortable. 04/17 Overnight pulled out her Alcantara. Not very cooperative this AM, did not take po meds AM, will try again later today. Per RN pt is voiding w/o difficulty. 04/18 Pt lying in bed this AM, sleepy but calm, opens eyes, took her AM beds per RN. #Severe Bacteriuria #Ureteral Stent -unclear if patient has symptoms, hemodynamically stable at this time, no sepsis criteria -UA appears to be significantly infected in setting of chronic colonization Plan: -urology consult, appreciate recs -follow up outpatient -ID consult, appreciate recs 04/10: Urine culture: (+) Proteus deescalated Cefepime to Ceftriaxone d/c on PO Augmentin, to be continued until planned stent removal has been completed on 04/26/25 per ID recommendation will need probiotics x 1 month at least encourage to drink plenty of fluids - transitioned to Augmentin as IV site was pulled Boost ordered for supplement 04/12 continue ceftriaxone IV for now while admitted per ID service, plan to cover with Augmentin after planned Ureteral stent procedure on Apr 26 hence, last day for Augmentin 875mg BID is April 29, 2025 recommend to check complete metabolic profile weekly while on Augmentin course 04/13 Contacted by urology - plan for kidney stone treatment possibly tmrw, npo after MN 04/14 Discussed this AM w/ ID - will give her 800 IV fluconazole today given her last ucultx growing [place] as she is going for invasive procedure to prevent candidemia #Episode of Vomiting KUB: no obstruction, minimal fecal load clear breath sounds BL resume diet, always with assistance vomiting from UTI? Cefepime? continue supportive care, monitor closely -- resolved #Lateral T Wave Inversions -new from 2016 -unclear if any symptoms troponin 10.9--> 15.2--> 11.1 echo: left ventricular wall motion is normal left ventricular systolic function is normal left ventricular ejection fraction = 55-60% right ventricle is normal in size and function severe focal calcification of the posterior mitral valve annulus mild prolapse of the posteriors mitral valve leaflet mild mitral regurgitation grade 1 diastolic dysfunction compared to the report of previous study 12/18/2024, severe mitral annular calcification also noted at that time Mild mitral regurgitaion now noted #Severe Intellectual Disability #OCD #IAN -continue home meds austedo xr, perphenazine (decreased dose), seroquel, zoloft -continue miralax, bisacodyl suppository prn for constipation, -mouth care ordered -continue keppra and lamictal Disposition pending Anticipate discharge to the [facility] when medically stable, after urology procedure. Per CM, [facility] can take pt after holiday weekend, on Friday Admission and Anticipated Discharge Date Admission Date: April 05, 2025 Subjective Pt seen in follow up Pt had urologic procedure done, left stent removed, now with R stent 2 nights ago pt removed her Alcantara Today lying in bed, in NAD, sleepy this AM. Appears comfortable, very calm. Discussed with RN, pt did take her pills this AM. [facility] caregiver sometimes present at bedside per report. No signs of pain, shortness of breath or seizure activity No other new symptoms Review of Systems Review of Systems: All systems reviewed & are unremarkable except as noted in Subjective Physical Exam Physical Exam: General- WD/WN F , nonverbal, not in distress, breathing with no effort or accessory muscle use Eyes- anicteric Neck- no JVD Lungs- clear breath sounds anteriorly, no crackles or wheezes Heart- normal rate, regular rhythm; no murmurs Abdomen- normal bowel sounds, nondistended, soft, no tenderness Extremities- no pretibial edema, moves extremities - pt removed her Alcantara overnight, per RN pt is voiding ok Neuro- awake but drowsy , opens eyes, moves extremities Skin- warm & dry Results & Data Results & Data Vital Signs (Past 12 Hours) Vital Signs Temp Pulse Pulse Resp BP Pulse Ox O2 Del Method 04/18/25 08:22 36.8 C 63 20 111/67 95 Room Air 04/18/25 04:00 36.6 C 63 18 124/73 96 Room Air 04/17/25 23:07 36.7 C 65 18 123/77 97 Room Air 04/17/25 22:00 66 Laboratory Results 04/18/25 Range/Units 06:54 WBC 7.85 (4.8-10.8) K/ul RBC 3.70 L (4.20-5.40) M/uL Hgb 9.2 L (12.0-16.0) g/dl Hct 29.7 L (37.0-47.0) % MCV 80.3 (80.0-100.0) fL MCH 24.9 L (25.0-34.0) pg MCHC 31.0 L (32.0-36.0) g/dL RDW Std Deviation 50.8 H (36.4-46.3) fL RDW Coeff of Nic 17.2 H (11.5-14.5) % Plt Count 335 (130-400) K/uL MPV 10.2 (9.4-12.4) fL Sodium 139 (136-145) mmol/L Potassium 4.5 (3.5-5.1) mmol/L Chloride 102 (98-107) mmol/L Carbon Dioxide 32 (21-32) mmol/L Anion Gap 5 (3-11) BUN 9 (6-23) mg/dl Creatinine 0.79 (0.6-1.2) mg/dl Est Cr Clr Drug Dosing 59.0 ml/min eGFR 86.11 BUN/Creatinine Ratio 11.4 (10-20) Glucose 105 H (70-99(Fasting)) mg/dl Calcium 8.8 (8.6-10.3) mg/dl Phosphorus 4.6 (2.5-4.9) mg/dl Magnesium 1.9 (1.7-2.4) mg/dl Medications Administered Current Inpatient Medications Acetaminophen (Acetaminophen 500 Mg Tab) 1,000 mg PO Q4H PRN PRN Reason: elevated temp/headache/mild pain Stop: 05/05/25 16:42 Amlodipine Besylate (Amlodipine Besylate 5 Mg Tab) 2.5 mg PO QAM [facility] Stop: 05/12/25 08:59 Last Admin: 04/17/25 12:40 Dose: 2.5 mg Bisacodyl (Bisacodyl 5 Mg Tabec) 10 mg PO Q3D PRN PRN Reason: Constipation Stop: 05/05/25 16:42 Calcium/Vitamin D (Calcium 600mg + Vit D 400 Iu Tab) 1 tab PO DAILY@1100 [facility] Stop: 05/06/25 08:59 Last Admin: 04/17/25 16:13 Dose: 1 tab Chlorhexidine Gluconate (Chlorhexidine Gluconate 0.12% 480 Ml) 15 ml MT TID [facility] Stop: 05/05/25 17:14 Last Admin: 04/17/25 20:29 Dose: 15 ml Clobazam (Clobazam 5 Mg Tab) 5 mg PO HS [facility] Stop: 05/05/25 20:59 Last Admin: 04/17/25 21:51 Dose: 5 mg Deutetrabenazine (Austedo [Patient Own Med]) 1 each PO DAILY [facility] Stop: 05/06/25 08:59 Last Admin: 04/17/25 17:08 Dose: Not Given Famotidine (Famotidine 40 Mg Tablet) 40 mg PO DAILY [facility] Stop: 05/06/25 08:59 Last Admin: 04/17/25 12:41 Dose: 40 mg Hydralazine HCl (Hydralazine Hcl 20 Mg/Ml Vial) 5 mg IV Q6H PRN PRN Reason: systolic bp > 160 Stop: 05/11/25 18:11 Ceftriaxone Sodium (Rocephin) 2,000 mg in 50 mls @ 100 mls/hr IV Q24H [facility] Stop: 04/21/25 18:29 Last Infusion: 04/17/25 19:49 Dose: Infused Lactobacillus Acidophilus (Lactobacillus Acidophilus 1 Gm Pack) 1 packet PO TIDM [facility] Stop: 05/16/25 11:59 Last Admin: 04/17/25 17:09 Dose: 1 packet Lamotrigine (Lamotrigine 25 Mg Tab) 50 mg PO AMHS [facility]; Protocol Stop: 05/05/25 20:59 Last Admin: 04/17/25 20:27 Dose: 50 mg Lamotrigine (Lamotrigine 100 Mg Tab) 200 mg PO AMHS [facility]; Protocol Stop: 05/05/25 20:59 Last Admin: 04/17/25 20:27 Dose: 200 mg Levetiracetam (Levetiracetam 500 Mg Tab) 1,500 mg PO BID [facility] Stop: 05/05/25 20:59 Last Admin: 04/15/25 08:13 Dose: Not Given Levetiracetam (Levetiracetam 500 Mg/5 Ml Vial 1500mg) 1,500 mg IV BID [facility] Stop: 05/11/25 21:59 Last Admin: 04/17/25 20:28 Dose: 1,500 mg Metoprolol Succinate (Metoprolol Succ 25mg Ext Rel Tab) 25 mg PO QAM [facility] Stop: 05/12/25 08:59 Last Admin: 04/17/25 12:43 Dose: 25 mg Nystatin (Nystatin Powder 15gm Btl) 1 appln EXT Q8 PRN PRN Reason: Affected Skin Folds Stop: 05/14/25 01:07 Ondansetron HCl (Ondansetron Inj 2 Mg/Ml 2 Ml Vial) 4 mg IV Q6H PRN PRN Reason: Nausea Stop: 05/05/25 16:42 Perphenazine (Perphenazine 2 Mg Tab) 1 mg PO QAM [facility] Stop: 05/07/25 08:59 Last Admin: 04/17/25 12:43 Dose: 1 mg Perphenazine (Perphenazine 2 Mg Tab) [address] [facility] Stop: 05/06/25 20:59 Last Admin: 04/17/25 20:25 Dose: 3 mg Polyethylene Glycol (Polyethylene (Miralax) 17 Gm Pack) 17 gm PO QAM [facility] Stop: 05/06/25 08:59 Last Admin: 04/17/25 12:38 Dose: 17 gm Polyethylene Glycol (Polyethylene (Miralax) 17 Gm Pack) 17 gm PO DAILY PRN PRN Reason: Constipation Stop: 05/05/25 16:42 Potassium Chloride (Potassium Chloride 10 Meq Tabcr) 40 meq PO DAILY [facility] Stop: 05/12/25 08:59 Last Admin: 04/17/25 12:39 Dose: 40 meq Potassium Phosphate (Pot Phosphate Monobasic W/ Sod Tab) 1 tab PO QID [facility] Stop: 05/12/25 08:59 Last Admin: 04/17/25 20:30 Dose: 1 tab Quetiapine Fumarate (Quetiapine Fumarate 25 Mg Tablet) 50 mg PO QAM [facility] Stop: 05/06/25 08:59 Last Admin: 04/17/25 12:44 Dose: 50 mg Quetiapine Fumarate (Quetiapine Fumarate 200 Mg Tab) 200 mg PO HS [facility] Stop: 05/05/25 20:59 Last Admin: 04/17/25 20:25 Dose: 200 mg Sertraline HCl (Sertraline Hcl 100 Mg Tablet) 100 mg PO QAM [facility] Stop: 05/06/25 08:59 Last Admin: 04/17/25 12:45 Dose: 100 mg
--- NOTE | 2025-04-18 13:04 | CT Scan Report ---
EXAM: CT Abdomen and Pelvis Without Intravenous Contrast INDICATION: Kidney stone TECHNIQUE: Axial computed tomography images of the abdomen and pelvis without intravenous contrast. Sagittal and coronal reformatted images were created and reviewed. This CT exam was performed using one or more of the following dose reduction techniques: automated exposure control, adjustment of the mA and/or kV according to patient size, and/or use of iterative reconstruction technique. COMPARISON: 03/09/2025 and 02/21/2025 FINDINGS: Limitations: None. Lung bases: No abnormality noted. Pleural space: No visualized pleural effusion or pneumothorax. Heart: Cardiomegaly. Dense mitral calcification. No basilar pericardial effusion. Mediastinum: No abnormality noted. ABDOMEN: Liver: There is a new heterogeneous area of hypodensity in the periphery of the right lobe of the liver measuring 2.4 x 1.7 x 2.2 cm. Gallbladder and bile ducts: Distended gallbladder with layering hyperdensity consistent with vicarious excretion. No stones seen previously. No ductal dilatation. No biliary gas. Pancreas: No pancreatic mass, calcification, inflammation or ductal dilation noted. Spleen: No significant abnormality noted. Adrenals: No significant abnormality noted. Kidneys and ureters: Left ureteral stent removed. Right ureteral stent in good position. Mild inflammation about the right mid stent. No stones along either stent. Small amounts of air in the right collecting system likely related to recent manipulation. Mild left perinephric edema. No perinephric fluid. Liquefying left lateral perinephric hematoma measuring 1.8 cm thickness. There is mild left perinephric edema. Stomach and bowel: Hyperdense material in the gastric lumen presumably ingested. Diffuse prominent fluid layers throughout the colon with small amounts of formed stool scattered in the colon. No small bowel distention. PELVIS: Appendix: Well seen and appears normal. Bladder: Appears normal for the degree of filling. No stones or inflammation. No large mass. Masses may not be detected in the absence of opacification. Reproductive: No abnormalities noted. ABDOMEN and PELVIS: Intraperitoneal space: No free air. No significant fluid collection. Bones/joints: No acute changes. Soft tissues: No significant abnormality noted. Vasculature: No abdominal aortic aneurysm. Lymph nodes: No pathologically enlarged lymph nodes. IMPRESSION: 1. New right ureteral stent in good position. Inflammation about the mid stent. Correlate with urinalysis for pyelitis. No hydronephrosis. 2. Stable size and interval liquefaction of left perinephric hematoma. 3. Bilateral nonobstructing kidney stones. Them pression colonic ileus. 4. Distended gallbladder contains hyperdense material likely reflects vicarious excretion as no stones seen on the prior studies. ACT 112: N/A Electronically signed by Suzette Wiggins 04-18-2025 13:03 PM
--- NOTE | 2025-04-18 18:47 | Communication Note ---
Date of Service: April 18, 2025 Called by RN as caregiver was concerned about patient having seizure Caregiver reported when she came in patient was not very responsive, unlike her usual self, "looking like she may be having a seizure from the way her eyes looked". No jerking of extremities At the time of my eval, caregiver reported patient is back to her baseline. Patient is nonverbal, PERRL, EOMI, moves UE to push away light from eyes during my exam. Per RN, patient received IV keppra and po lamictal this AM Continue current meds and continue to monitor
--- NOTE | 2025-04-19 08:16 | Hospitalist Progress Note ---
Date of Service April 19, 2025 Assessment & Plan (1) Nephrolithiasis: (2) Ureteral stent present: (3) Nonverbal: (4) Complicated UTI (urinary tract infection): (5) Severe intellectual disability: (6) Fatty (change of) liver, not elsewhere classified: (7) Tremor, unspecified: Plan 59 yo female with pmhx of severe intellectual disability c/b epilepsy, nonverbal status, fecal/urinary incontinence, s/p recent urethral stent placement, fatty liver disease, GERD, OCD, IAN, who presents for a fall from the [facility]. #Fall #Epilepsy Breakthrough seizures -unclear cause of fall from bed, likely mechanical in nature -per caregiver patient currently at baseline, concern is that UTI cause fall and they do not want her to become septic -lower on differential includes stroke (patient at baseline), arrythmia (unlikely to cause fall from bed), seizures (does have epilepsy so possible) Plan: -gentle hydration -neurology consult, appreciate recs for consideration of seizure and polypharmacy -decreased dose of perphenazine 04/11 while being transported from bed to wheelchair for discharge by staff from the ER, patient noted to have some shaking of the arms and followed by fixed gaze to the right for about 20 seconds Afterwards, patient noted to be back to her baseline Stat CT head ordered: no acute process Stat Labs ordered: Potassium 3.2, phosphorus 2.4, magnesium 1.9 Potassium and phosphorus supplements ordered around 5 PM, patient had a recurrence of the episode Lasted longer for about 10 more seconds Code purple called Seen resting in bed, awake and alert , not in distress blood pressure elevated but not hypoxic clear breath sounds bilaterally, tachycardic Stat dose Ativan 1 mg IM given 2 L of O2 nasal cannula started Assessment and plan Breakthrough seizures Patient missed doses of Lamictal and Keppra over the weekend Discussed with neurologist Dr. Alberto Choi Recommend loading dose of Keppra 2000 mg IV, continue usual Keppra dose tonight. If patient refuses, give in IV form Recommend additional Lamictal to 50 mg p.o. now, continue usual Lamictal dose tonight EEG IV potassium, magnesium, phosphorus ordered D5 NS as ordered 04/12 No seizure-like activity overnight Electrolytes better usual Keppra 1500 mg p.o. twice daily converted to IV for now for better adherence continue Lamictal, and other usual meds EEG ordered: Pending 04/13-04/14 Pt in no distress, awake, alert, no seizure like activity reported 04/15 Pt had urologic procedure yesterday, today more drowsy, not very cooperative, poor PO intake 04/16 Pt awake, cooperative, had breakfast and took her po meds this AM. Overall pt appears comfortable. 04/17 Overnight pulled out her Alcantara. Not very cooperative this AM, did not take po meds AM, will try again later today. Per RN pt is voiding w/o difficulty. 04/18 Pt lying in bed this AM, sleepy but calm, opens eyes, took her AM beds per RN. 04/19 Lying in bed in NAD, sleepy, opens eyes. Discussed w/ RN plan to reposition frequently to help pass flatus, have BM, updated on discussion w/ urology. #Severe Bacteriuria #Ureteral Stent -unclear if patient has symptoms, hemodynamically stable at this time, no sepsis criteria -UA appears to be significantly infected in setting of chronic colonization Plan: -urology consult, appreciate recs -follow up outpatient -ID consult, appreciate recs 04/10: Urine culture: (+) Proteus deescalated Cefepime to Ceftriaxone d/c on PO Augmentin, to be continued until planned stent removal has been completed on 04/26/25 per ID recommendation will need probiotics x 1 month at least encourage to drink plenty of fluids - transitioned to Augmentin as IV site was pulled Boost ordered for supplement 04/12 continue ceftriaxone IV for now while admitted per ID service, plan to cover with Augmentin after planned Ureteral stent procedure on Apr 26 hence, last day for Augmentin 875mg BID is April 29, 2025 recommend to check complete metabolic profile weekly while on Augmentin course 04/13 Contacted by urology - plan for kidney stone treatment possibly tmrw, npo after MN 04/14 Discussed this AM w/ ID - will give her 800 IV fluconazole today given her last ucultx growing [place] as she is going for invasive procedure to prevent candidemia 04/18 Discussed w/ urology that they plan to remove stent - CT abdomen ordered 1. New right ureteral stent in good position. Inflammation about the mid stent. Correlate with urinalysis for pyelitis. No hydronephrosis. 2. Stable size and interval liquefaction of left perinephric hematoma. 3. Bilateral nonobstructing kidney stones. Them pression colonic ileus. 4. Distended gallbladder contains hyperdense material likely reflects vicarious excretion as no stones seen on the prior studies. 04/19 Discussed w/ urology to hold any procedure now until pt has BM / passes flatus, given colon distention on CT and no BM per nursing staff. #Episode of Vomiting KUB: no obstruction, minimal fecal load clear breath sounds BL resume diet, always with assistance vomiting from UTI? Cefepime? continue supportive care, monitor closely -- resolved #Lateral T Wave Inversions -new from 2017 -unclear if any symptoms troponin 10.9--> 15.2--> 11.1 echo: left ventricular wall motion is normal left ventricular systolic function is normal left ventricular ejection fraction = 55-60% right ventricle is normal in size and function severe focal calcification of the posterior mitral valve annulus mild prolapse of the posteriors mitral valve leaflet mild mitral regurgitation grade 1 diastolic dysfunction compared to the report of previous study 12/18/2024, severe mitral annular calcification also noted at that time Mild mitral regurgitaion now noted #Severe Intellectual Disability #OCD #IAN -continue home meds austedo xr, perphenazine (decreased dose), seroquel, zoloft -continue miralax, bisacodyl suppository prn for constipation, -mouth care ordered -continue keppra and lamictal Disposition pending Anticipate discharge to the [facility] when medically stable Admission and Anticipated Discharge Date Admission Date: April 05, 2025 Subjective Pt seen in follow up Pt had urologic procedure done, left stent removed, now with R stent pt removed her Alcantara but seems to be voiding without difficulty Today lying in bed, in NAD, sleepy this AM. Appears comfortable, calm. [facility] caregiver sometimes present at bedside per report. No signs of pain, shortness of breath or seizure activity No other new symptoms Discussed with RN - no BM since 04/16. Discussed w/ urology as they plan to remove stent - ordered CT abdomen - colon distended - > Discussed w/ RN at the bedside and w/ urology over TT - will give suppository, will change positions frequently to prevent ileus, help to pass flatus and BM. For now, hold urologic procedure Review of Systems Review of Systems: All systems reviewed & are unremarkable except as noted in Subjective Physical Exam Physical Exam: General- WD/WN F , nonverbal, not in distress, breathing with no effort or accessory muscle use Eyes- anicteric Neck- no JVD Lungs- clear breath sounds anteriorly, no crackles or wheezes Heart- normal rate, regular rhythm; no murmurs Abdomen- normal bowel sounds, nondistended, soft, no tenderness appreciated Extremities- no pretibial edema, moves extremities - pt removed her Alcantara overnight, per RN pt is voiding ok Neuro- awake but drowsy , opens eyes, moves extremities Skin- warm & dry Results & Data Results & Data Vital Signs (Past 12 Hours) Vital Signs Temp Pulse Pulse Resp BP BP Pulse Ox 04/19/25 07:46 36.6 C 62 16 119/60 98 04/19/25 05:47 60 04/19/25 03:11 36.6 C 61 14 112/71 94 04/18/25 23:39 36.7 C 62 16 99/63 L 91 04/18/25 22:00 66 O2 Del Method 04/19/25 07:46 Room Air 04/19/25 05:47 04/19/25 03:11 Room Air 04/18/25 23:39 Room Air 04/18/25 22:00 Laboratory Results 04/19/25 Range/Units 09:47 WBC 7.77 (4.8-10.8) K/ul RBC 3.64 L (4.20-5.40) M/uL Hgb 9.1 L (12.0-16.0) g/dl Hct 29.0 L (37.0-47.0) % MCV 79.7 L (80.0-100.0) fL MCH 25.0 (25.0-34.0) pg MCHC 31.4 L (32.0-36.0) g/dL RDW Std Deviation 49.7 H (36.4-46.3) fL RDW Coeff of Nic 17.1 H (11.5-14.5) % Plt Count 344 (130-400) K/uL MPV 10.0 (9.4-12.4) fL Sodium 138 (136-145) mmol/L Potassium 4.2 (3.5-5.1) mmol/L Chloride 101 (98-107) mmol/L Carbon Dioxide 30 (21-32) mmol/L Anion Gap 7 (3-11) BUN 12 (6-23) mg/dl Creatinine 0.83 (0.6-1.2) mg/dl Est Cr Clr Drug Dosing 56.2 ml/min eGFR 81.16 BUN/Creatinine Ratio 14.5 (10-20) Glucose 90 (70-99(Fasting)) mg/dl Calcium 8.7 (8.6-10.3) mg/dl Phosphorus 4.0 (2.5-4.9) mg/dl Magnesium 1.7 (1.7-2.4) mg/dl Medications Administered Current Inpatient Medications Acetaminophen (Acetaminophen 500 Mg Tab) 1,000 mg PO Q4H PRN PRN Reason: elevated temp/headache/mild pain Stop: 05/05/25 16:42 Amlodipine Besylate (Amlodipine Besylate 5 Mg Tab) 2.5 mg PO QAM [facility] Stop: 05/12/25 08:59 Last Admin: 04/18/25 08:23 Dose: 2.5 mg Bisacodyl (Bisacodyl 5 Mg Tabec) 10 mg PO Q3D PRN PRN Reason: Constipation Stop: 05/05/25 16:42 Calcium/Vitamin D (Calcium 600mg + Vit D 400 Iu Tab) 1 tab PO DAILY@1100 [facility] Stop: 05/06/25 08:59 Last Admin: 04/18/25 16:12 Dose: 1 tab Chlorhexidine Gluconate (Chlorhexidine Gluconate 0.12% 480 Ml) 15 ml MT TID [facility] Stop: 05/05/25 17:14 Last Admin: 04/18/25 21:05 Dose: 15 ml Clobazam (Clobazam 5 Mg Tab) 5 mg PO HS [facility] Stop: 05/05/25 20:59 Last Admin: 04/18/25 21:03 Dose: 5 mg Deutetrabenazine (Austedo [Patient Own Med]) 1 each PO DAILY [facility] Stop: 05/06/25 08:59 Last Admin: 04/18/25 08:27 Dose: 1 each Famotidine (Famotidine 40 Mg Tablet) 40 mg PO DAILY [facility] Stop: 05/06/25 08:59 Last Admin: 04/18/25 08:22 Dose: 40 mg Hydralazine HCl (Hydralazine Hcl 20 Mg/Ml Vial) 5 mg IV Q6H PRN PRN Reason: systolic bp > 160 Stop: 05/11/25 18:11 Ceftriaxone Sodium (Rocephin) 2,000 mg in 50 mls @ 100 mls/hr IV Q24H [facility] Stop: 04/21/25 18:29 Last Infusion: 04/18/25 19:33 Dose: Infused Lactobacillus Acidophilus (Lactobacillus Acidophilus 1 Gm Pack) 1 packet PO TIDM [facility] Stop: 05/16/25 11:59 Last Admin: 04/18/25 16:13 Dose: 1 packet Lamotrigine (Lamotrigine 25 Mg Tab) 50 mg PO AMHS [facility]; Protocol Stop: 05/05/25 20:59 Last Admin: 04/18/25 21:04 Dose: 50 mg Lamotrigine (Lamotrigine 100 Mg Tab) 200 mg PO [facility]; Protocol Stop: 05/05/25 20:59 Last Admin: 04/18/25 21:04 Dose: 200 mg Levetiracetam (Levetiracetam 500 Mg Tab) 1,500 mg PO BID [facility] Stop: 05/05/25 20:59 Last Admin: 04/15/25 08:13 Dose: Not Given Levetiracetam (Levetiracetam 500 Mg/5 Ml Vial 1500mg) 1,500 mg IV BID [facility] Stop: 05/11/25 21:59 Last Admin: 04/18/25 21:05 Dose: 1,500 mg Metoprolol Succinate (Metoprolol Succ 25mg Ext Rel Tab) 25 mg PO QAM [facility] Stop: 05/12/25 08:59 Last Admin: 04/18/25 08:21 Dose: 25 mg Nystatin (Nystatin Powder 15gm Btl) 1 appln EXT Q8 PRN PRN Reason: Affected Skin Folds Stop: 05/14/25 01:07 Ondansetron HCl (Ondansetron Inj 2 Mg/Ml 2 Ml Vial) 4 mg IV Q6H PRN PRN Reason: Nausea Stop: 05/05/25 16:42 Perphenazine (Perphenazine 2 Mg Tab) 1 mg PO QAM [facility] Stop: 05/07/25 08:59 Last Admin: 04/18/25 08:24 Dose: 1 mg Perphenazine (Perphenazine 2 Mg Tab) 3 mg PO HS [facility] Stop: 05/06/25 20:59 Last Admin: 04/18/25 21:04 Dose: 3 mg Polyethylene Glycol (Polyethylene (Miralax) 17 Gm Pack) 17 gm PO QAM [facility] Stop: 05/06/25 08:59 Last Admin: 04/18/25 08:44 Dose: 17 gm Polyethylene Glycol (Polyethylene (Miralax) 17 Gm Pack) 17 gm PO DAILY PRN PRN Reason: Constipation Stop: 05/05/25 16:42 Potassium Chloride (Potassium Chloride 10 Meq Tabcr) 40 meq PO DAILY [facility] Stop: 05/12/25 08:59 Last Admin: 04/18/25 08:45 Dose: 40 meq Potassium Phosphate (Pot Phosphate Monobasic W/ Sod Tab) 1 tab PO QID [facility] Stop: 05/12/25 08:59 Last Admin: 04/18/25 21:03 Dose: 1 tab Quetiapine Fumarate (Quetiapine Fumarate 25 Mg Tablet) 50 mg PO QAM [facility] Stop: 05/06/25 08:59 Last Admin: 04/18/25 08:22 Dose: 50 mg Quetiapine Fumarate (Quetiapine Fumarate 200 Mg Tab) 200 mg PO HS [facility] Stop: 05/05/25 20:59 Last Admin: 04/18/25 21:03 Dose: 200 mg Sertraline HCl (Sertraline Hcl 100 Mg Tablet) 100 mg PO QAM [facility] Stop: 05/06/25 08:59 Last Admin: 04/18/25 08:26 Dose: 100 mg
[2025-04-19 10:11] LABS: Hematocrit (blood only) 29.0 % (37.0-47.0); Hemoglobin 9.1 g/dl (12.0-16.0); Mean Corpuscular Hemoglobin 25.0 pg (25.0-34.0); Mean Corpuscular Volume 79.7 fL (80.0-100.0); Platelet Count 344 K/uL (130-400); RDW Standard Deviation 49.7 fL (36.4-46.3); Red Blood Count 3.64 M/uL (4.20-5.40); White Blood Count 7.77 K/ul (4.8-10.8)
[2025-04-19 10:27] LABS: Anion Gap 7.0 (3-11); Blood Urea Nitrogen 12.0 mg/dl (6-23); Calcium 8.7 mg/dl (8.6-10.3); Carbon Dioxide 30.0 mmol/L (21-32); Chloride 101.0 mmol/L (98-107); Creatinine Clr Calc Pharmacy 56.2 ml/min; Glucose 90.0 mg/dl (70-99(Fasting)); Magnesium 1.7 mg/dl (1.7-2.4); Potassium 4.2 mmol/L (3.5-5.1); Sodium 138.0 mmol/L (136-145)
[2025-04-19] MEDS: MAGNESIUM SULFATE / D5W 1 GM/100 ML BAG IV ONE (10:51)
--- NOTE | 2025-04-19 15:50 | Urology Progress Note ---
Date of Service April 19, 2025 Assessment & Plan (1) Nephrolithiasis: (2) Ureteral stent present: Plan: - Afebrile, hemodynamically stable. - Labs today show no leukocytosis and creatinine normal. - Urine culture 04/12 grew Sarah albicans. - Patient was found to have pulled her Alcantara catheter out on 04/16. Has been voiding spontaneously. Continue to monitor, bladder scan as needed. - CT 04/18 showed the right ureteral stent in good position, inflammation around the stent, no hydronephrosis, stable left perinephric hematoma, bilateral nonobstructing kidney stones. - Inflammation and air is likely from her recent procedure/stent. The hematoma on the left side is improving. - Depending on clinical course, will consider ureteral stent removal while inpatient or we can arrange as an outpatient. - Discussed with hospital team- no plan for procedure until patients bowel function has normalized/improved. - Continue supportive care and antibiotic therapy. - Urology will follow peripherally, please call with any questions/concerns. Admission and Anticipated Discharge Date Admission Date: April 05, 2025 Subjective Patient seen at bedside today. Awake and resting in bed. No acute distress. Appears comfortable. Review of Systems Constitutional: as per Subjective / HPI Genitourinary: as per Subjective / HPI Physical Exam Constitutional: no acute distress Respiratory: no respiratory distress and no labored breathing Neurologic: awake Psychiatric: Orientation: alert Results & Data Vital Signs (Past 12 Hours) Vital Signs Temp Pulse Pulse Resp BP Pulse Ox O2 Del Method 04/19/25 15:38 36.6 C 63 18 137/80 95 Room Air 04/19/25 15:18 Room Air 04/19/25 11:36 36.3 C L 60 20 119/60 94 Room Air 04/19/25 07:46 36.6 C 62 16 119/60 98 Room Air 04/19/25 05:47 60 PG Care Time/CCT Total # of Minutes Spent Total Time Spent with Patient: Total time spent is greater than 50% in coordination of care (as documented) at patient's floor/unit and/or counseling patient: Coding Level of Care Code 08826 SUB INP/OBS CARE 2/35MIN Diagnoses Nephrolithiasis N20.0 Ureteral stent present Z96.0
[2025-04-20 08:54] LABS: Hematocrit (blood only) 30.8 % (37.0-47.0); Hemoglobin 9.7 g/dl (12.0-16.0); Mean Corpuscular Hemoglobin 25.3 pg (25.0-34.0); Mean Corpuscular Volume 80.2 fL (80.0-100.0); Platelet Count 359 K/uL (130-400); RDW Standard Deviation 49.7 fL (36.4-46.3); Red Blood Count 3.84 M/uL (4.20-5.40); White Blood Count 6.61 K/ul (4.8-10.8)
[2025-04-20 09:10] LABS: Anion Gap 4.0 (3-11); Blood Urea Nitrogen 9.0 mg/dl (6-23); Calcium 8.9 mg/dl (8.6-10.3); Carbon Dioxide 33.0 mmol/L (21-32); Chloride 102.0 mmol/L (98-107); Creatinine Clr Calc Pharmacy 60.2 ml/min; Glucose 95.0 mg/dl (70-99(Fasting)); Magnesium 2.0 mg/dl (1.7-2.4); Potassium 4.1 mmol/L (3.5-5.1); Sodium 139.0 mmol/L (136-145)
--- NOTE | 2025-04-20 12:43 | Hospitalist Progress Note ---
Date of Service April 20, 2025 Assessment & Plan (1) Nephrolithiasis: (2) Ureteral stent present: (3) Nonverbal: (4) Complicated UTI (urinary tract infection): (5) Severe intellectual disability: (6) Fatty (change of) liver, not elsewhere classified: (7) Tremor, unspecified: Plan 59 yo female with pmhx of severe intellectual disability c/b epilepsy, nonverbal status, fecal/urinary incontinence, s/p recent urethral stent placement, fatty liver disease, GERD, OCD, IAN, who presents for a [facility] from [facility]. #Fall #Epilepsy Breakthrough seizures -unclear cause of fall from bed, likely mechanical in nature -per caregiver patient currently at baseline, concern is that UTI cause fall and they do not want her to become septic -lower on differential includes stroke (patient at baseline), arrythmia (unlikely to cause fall from bed), seizures (does have epilepsy so possible) Plan: -gentle hydration -neurology consult, appreciate recs for consideration of seizure and polypharmacy -decreased dose of perphenazine 04/11 while being transported from bed to wheelchair for discharge by staff from the ER, patient noted to have some shaking of the arms and followed by fixed gaze to the right for about 20 seconds Afterwards, patient noted to be back to her baseline Stat CT head ordered: no acute process Stat Labs ordered: Potassium 3.2, phosphorus 2.4, magnesium 1.9 Potassium and phosphorus supplements ordered around 5 PM, patient had a recurrence of the episode Lasted longer for about 10 more seconds Code purple called Seen resting in bed, awake and alert , not in distress blood pressure elevated but not hypoxic clear breath sounds bilaterally, tachycardic Stat dose Ativan 1 mg IM given 2 L of O2 nasal cannula started Assessment and plan Breakthrough seizures Patient missed doses of Lamictal and Keppra over the weekend Discussed with neurologist Dr. Alberto Choi Recommend loading dose of Keppra 2000 mg IV, continue usual Keppra dose tonight. If patient refuses, give in IV form Recommend additional Lamictal to 50 mg p.o. now, continue usual Lamictal dose tonight EEG IV potassium, magnesium, phosphorus ordered D5 NS as ordered 04/12 No seizure-like activity overnight Electrolytes better usual Keppra 1500 mg p.o. twice daily converted to IV for now for better adherence continue Lamictal, and other usual meds EEG ordered: Pending 04/13-04/14 Pt in no distress, awake, alert, no seizure like activity reported 04/15 Pt had urologic procedure yesterday, today more drowsy, not very cooperative, poor PO intake 04/16 Pt awake, cooperative, had breakfast and took her po meds this AM. Overall pt appears comfortable. 04/17 Overnight pulled out her Alcantara. Not very cooperative this AM, did not take po meds AM, will try again later today. Per RN pt is voiding w/o difficulty. 04/18 Pt lying in bed this AM, sleepy but calm, opens eyes, took her AM beds per RN. 04/19 Lying in bed in NAD, sleepy, opens eyes. Discussed w/ RN plan to reposition frequently to help pass flatus, have BM, updated on discussion w/ urology. 04/20 Pt is awake, alert, drinks coke during my eval. Appears comfortable, had several BMs per RN, pt appears back to her baseline - also urology updated #Severe Bacteriuria #Ureteral Stent -unclear if patient has symptoms, hemodynamically stable at this time, no sepsis criteria -UA appears to be significantly infected in setting of chronic colonization Plan: -urology consult, appreciate recs -follow up outpatient -ID consult, appreciate recs 04/10: Urine culture: (+) Proteus deescalated Cefepime to Ceftriaxone d/c on PO Augmentin, to be continued until planned stent removal has been completed on 04/26/25 per ID recommendation will need probiotics x 1 month at least encourage to drink plenty of fluids - transitioned to Augmentin as IV site was pulled Boost ordered for supplement 04/12 continue ceftriaxone IV for now while admitted per ID service, plan to cover with Augmentin after planned Ureteral stent procedure on Apr 26 hence, last day for Augmentin 875mg BID is April 29, 2025 recommend to check complete metabolic profile weekly while on Augmentin course 04/13 Contacted by urology - plan for kidney stone treatment possibly tmrw, npo after [place] 04/14 Discussed this AM w/ ID - will give her 800 IV fluconazole today given her last ucultx growing [place] as she is going for invasive procedure to prevent candidemia 04/18 Discussed w/ urology that they plan to remove stent - CT abdomen ordered 1. New right ureteral stent in good position. Inflammation about the mid stent. Correlate with urinalysis for pyelitis. No hydronephrosis. 2. Stable size and interval liquefaction of left perinephric hematoma. 3. Bilateral nonobstructing kidney stones. Them pression colonic ileus. 4. Distended gallbladder contains hyperdense material likely reflects vicarious excretion as no stones seen on the prior studies. 04/19 Discussed w/ urology to hold any procedure now until pt has BM / passes flatus, given colon distention on CT and no BM per nursing staff. 04/20 Pt seems to be much improved, had BMs, took her pills, today drinks a coke on my eval, seems back to baseline -> urology also updated #Episode of Vomiting KUB: no obstruction, minimal fecal load clear breath sounds BL resume diet, always with assistance vomiting from UTI? Cefepime? continue supportive care, monitor closely -- resolved #Lateral T Wave Inversions -new from 2016 -unclear if any symptoms troponin 10.9--> 15.2--> 11.1 echo: left ventricular wall motion is normal left ventricular systolic function is normal left ventricular ejection fraction = 55-60% right ventricle is normal in size and function severe focal calcification of the posterior mitral valve annulus mild prolapse of the posteriors mitral valve leaflet mild mitral regurgitation grade 1 diastolic dysfunction compared to the report of previous study 12/18/2024, severe mitral annular calcification also noted at that time Mild mitral regurgitaion now noted #Severe Intellectual Disability #OCD #IAN -continue home meds austedo xr, perphenazine (decreased dose), seroquel, zoloft -continue miralax, bisacodyl suppository prn for constipation, -mouth care ordered -continue keppra and lamictal Disposition pending Anticipate discharge to the [facility] when medically stable, likely after urology procedure Admission and Anticipated Discharge Date Admission Date: April 05, 2025 Subjective Pt seen in follow up Pt had urologic procedure done, left stent removed, now with R stent pt removed her Alcantara but seems to be voiding without difficulty Today sitting up in bed, in NAD, awake, alert, appears comfortable, and drinking coke. RN at the bedside [facility] caregiver sometimes present at bedside per report. No signs of pain, shortness of breath or seizure activity No other new symptoms Discussed with RN - pt had several BMs, updated urology pt seems to be back to baseline Review of Systems Review of Systems: Unobtainable due to mental health condition Physical Exam Physical Exam: General- WD/WN F , nonverbal, not in distress, breathing with no effort or accessory muscle use Eyes- anicteric Neck- no JVD Lungs- clear breath sounds anteriorly, no crackles or wheezes Heart- normal rate, regular rhythm; no murmurs Abdomen- normal bowel sounds, nondistended, soft, no tenderness appreciated Extremities- no pretibial edema, moves extremities - pt removed her Alcantara some nights ago, per RN pt is voiding ok Neuro- awake, alert , drinks a coke on my evaluation, moves extremities Skin- warm & dry Results & Data Results & Data Vital Signs (Past 12 Hours) Vital Signs Temp Pulse Pulse Resp BP BP Pulse Ox 04/20/25 12:15 36.9 C 74 18 142/65 H 04/20/25 08:30 04/20/25 08:16 36.4 C L 65 16 110/65 94 04/20/25 07:23 63 04/20/25 03:19 36.5 C 68 20 127/75 97 O2 Del Method 04/20/25 12:15 Room Air 04/20/25 08:30 Room Air 04/20/25 08:16 Room Air 04/20/25 07:23 04/20/25 03:19 Room Air Laboratory Results 04/20/25 Range/Units 08:19 WBC 6.61 (4.8-10.8) K/ul RBC 3.84 L (4.20-5.40) M/uL Hgb 9.7 L (12.0-16.0) g/dl Hct 30.8 L (37.0-47.0) % MCV 80.2 (80.0-100.0) fL MCH 25.3 (25.0-34.0) pg MCHC 31.5 L (32.0-36.0) g/dL RDW Std Deviation 49.7 H (36.4-46.3) fL RDW Coeff of Nic 17.0 H (11.5-14.5) % Plt Count 359 (130-400) K/uL MPV 10.2 (9.4-12.4) fL Sodium 139 (136-145) mmol/L Potassium 4.1 (3.5-5.1) mmol/L Chloride 102 (98-107) mmol/L Carbon Dioxide 33 H (21-32) mmol/L Anion Gap 4 (3-11) BUN 9 (6-23) mg/dl Creatinine 0.77 (0.6-1.2) mg/dl Est Cr Clr Drug Dosing 60.2 ml/min eGFR 88.81 BUN/Creatinine Ratio 11.7 (10-20) Glucose 95 (70-99(Fasting)) mg/dl Calcium 8.9 (8.6-10.3) mg/dl Phosphorus 3.8 (2.5-4.9) mg/dl Magnesium 2.0 (1.7-2.4) mg/dl Medications Administered Current Inpatient Medications Acetaminophen (Acetaminophen 500 Mg Tab) 1,000 mg PO Q4H PRN PRN Reason: elevated temp/headache/mild pain Stop: 05/05/25 16:42 Amlodipine Besylate (Amlodipine Besylate 5 Mg Tab) 2.5 mg PO QAM [facility] Stop: 05/12/25 08:59 Last Admin: 04/20/25 08:33 Dose: 2.5 mg Bisacodyl (Bisacodyl 5 Mg Tabec) 10 mg PO Q3D PRN PRN Reason: Constipation Stop: 05/05/25 16:42 Calcium/Vitamin D (Calcium 600mg + Vit D 400 Iu Tab) 1 tab PO DAILY@1100 [facility] Stop: 05/06/25 08:59 Last Admin: 04/18/25 16:12 Dose: 1 tab Chlorhexidine Gluconate (Chlorhexidine Gluconate 0.12% 480 Ml) 15 ml MT TID SWAP[facility] Stop: 05/05/25 17:14 Last Admin: 04/20/25 08:35 Dose: 15 ml Clobazam (Clobazam 5 Mg Tab) 5 mg PO HS [facility] Stop: 05/05/25 20:59 Last Admin: 04/19/25 20:03 Dose: 5 mg Deutetrabenazine (Austedo [Patient Own Med]) 1 each PO DAILY SWAP[facility] Stop: 05/06/25 08:59 Last Admin: 04/20/25 08:35 Dose: 1 each Famotidine (Famotidine 40 Mg Tablet) 40 mg PO DAILY SWAP[facility] Stop: 05/06/25 08:59 Last Admin: 04/20/25 08:32 Dose: 40 mg Hydralazine HCl (Hydralazine Hcl 20 Mg/Ml Vial) 5 mg IV Q6H PRN PRN Reason: systolic bp > 160 Stop: 05/11/25 18:11 Ceftriaxone Sodium (Rocephin) 2,000 mg in 50 mls @ 100 mls/hr IV Q24H [facility] Stop: 04/21/25 18:29 Last Infusion: 04/19/25 19:06 Dose: Infused Lactobacillus Acidophilus (Lactobacillus Acidophilus 1 Gm Pack) 1 packet PO TIDM [facility] Stop: 05/16/25 11:59 Last Admin: 04/20/25 12:37 Dose: 1 packet Lamotrigine (Lamotrigine 25 Mg Tab) 50 mg PO [facility]; Protocol Stop: 05/05/25 20:59 Last Admin: 04/20/25 08:33 Dose: 50 mg Lamotrigine (Lamotrigine 100 Mg Tab) 200 mg PO [facility]; Protocol Stop: 05/05/25 20:59 Last Admin: 04/20/25 08:33 Dose: 200 mg Levetiracetam (Levetiracetam 500 Mg Tab) 1,500 mg PO BID [facility] Stop: 05/05/25 20:59 Last Admin: 04/15/25 08:13 Dose: Not Given Levetiracetam (Levetiracetam 500 Mg/5 Ml Vial 1500mg) 1,500 mg IV BID [facility] Stop: 05/11/25 21:59 Last Admin: 04/20/25 08:34 Dose: 1,500 mg Metoprolol Succinate (Metoprolol Succ 25mg Ext Rel Tab) 25 mg PO QAM [facility] Stop: 05/12/25 08:59 Last Admin: 04/20/25 08:32 Dose: 25 mg Nystatin (Nystatin Powder 15gm Btl) 1 appln EXT Q8 PRN PRN Reason: Affected Skin Folds Stop: 05/14/25 01:07 Ondansetron HCl (Ondansetron Inj 2 Mg/Ml 2 Ml Vial) 4 mg IV Q6H PRN PRN Reason: Nausea Stop: 05/05/25 16:42 Perphenazine (Perphenazine 2 Mg Tab) 1 mg PO QAM [facility] Stop: 05/07/25 08:59 Last Admin: 04/20/25 08:33 Dose: 1 mg Perphenazine (Perphenazine 2 Mg Tab) 3 mg PO HS [facility] Stop: 05/06/25 20:59 Last Admin: 04/19/25 20:04 Dose: 3 mg Polyethylene Glycol (Polyethylene (Miralax) 17 Gm Pack) 17 gm PO QAM [facility] Stop: 05/06/25 08:59 Last Admin: 04/20/25 08:36 Dose: Not Given Polyethylene Glycol (Polyethylene (Miralax) 17 Gm Pack) 17 gm PO DAILY PRN PRN Reason: Constipation Stop: 05/05/25 16:42 Potassium Chloride (Potassium Chloride 10 Meq Tabcr) 40 meq PO DAILY [facility] Stop: 05/12/25 08:59 Last Admin: 04/20/25 08:38 Dose: 40 meq Potassium Phosphate (Pot Phosphate Monobasic W/ Sod Tab) 1 tab PO QID [facility] Stop: 05/12/25 08:59 Last Admin: 04/20/25 12:37 Dose: 1 tab Quetiapine Fumarate (Quetiapine Fumarate 25 Mg Tablet) 50 mg PO QAM [facility] Stop: 05/06/25 08:59 Last Admin: 04/20/25 08:33 Dose: 50 mg Quetiapine Fumarate (Quetiapine Fumarate 200 Mg Tab) 200 mg PO HS [facility] Stop: 05/05/25 20:59 Last Admin: 04/19/25 20:05 Dose: 200 mg Sertraline HCl (Sertraline Hcl 100 Mg Tablet) 100 mg PO QAM [facility] Stop: 05/06/25 08:59 Last Admin: 04/20/25 08:33 Dose: 100 mg
[2025-04-21] MEDS ORDERED: ONDANSETRON INJ 2 MG/ML 2 ML VIAL ONE (11:19)
[2025-04-21] MEDS ORDERED: GLYCOPYRROLATE 0.2 MG/ML VIAL ONE (11:19)
[2025-04-21] MEDS ORDERED: LIDOCAINE 2% 2 ML VIAL/AMP(20MG/ML) INFIL ONE (11:19)
[2025-04-21] MEDS ORDERED: DEXAMETHASONE SOD INJ 4 MG/ML VIAL ONE (11:19)
[2025-04-21] MEDS ORDERED: MIDAZOLAM HCL 1 MG/ML 2ML VIAL ONE (11:19)
[2025-04-21] MEDS ORDERED: PROPOFOL IV EMULSION 10 MG/ML 20 ML VIAL IV ONE (11:19)
[2025-04-21 12:43] LABS: Hematocrit (blood only) 36.1 % (37.0-47.0); Hemoglobin 11.4 g/dl (12.0-16.0); Mean Corpuscular Hemoglobin 25.2 pg (25.0-34.0); Mean Corpuscular Volume 79.9 fL (80.0-100.0); Platelet Count 317 K/uL (130-400); RDW Standard Deviation 48.0 fL (36.4-46.3); Red Blood Count 4.52 M/uL (4.20-5.40); White Blood Count 6.21 K/ul (4.8-10.8)
--- NOTE | 2025-04-21 12:59 | Hospitalist Progress Note ---
Date of Service April 21, 2025 Assessment & Plan (1) Nephrolithiasis: (2) Ureteral stent present: (3) Nonverbal: (4) Complicated UTI (urinary tract infection): (5) Severe intellectual disability: (6) Fatty (change of) liver, not elsewhere classified: (7) Tremor, unspecified: Plan 59 yo female with pmhx of severe intellectual disability c/b epilepsy, nonverbal status, fecal/urinary incontinence, s/p recent urethral stent placement, fatty liver disease, GERD, OCD, IAN, who presents [facility] a fall from [facility]. #Fall #Epilepsy Breakthrough seizures -unclear cause of fall from bed, likely mechanical in nature -per caregiver patient currently at baseline, concern is that UTI cause fall and they do not want her to become septic -lower on differential includes stroke (patient at baseline), arrythmia (unlikely to cause fall from bed), seizures (does have epilepsy so possible) Plan: -gentle hydration -neurology consult, appreciate recs for consideration of seizure and polypharmacy -decreased dose of perphenazine 04/11 while being transported from bed to wheelchair for discharge by staff from the ER, patient noted to have some shaking of the arms and followed by fixed gaze to the right for about 20 seconds Afterwards, patient noted to be back to her baseline Stat CT head ordered: no acute process Stat Labs ordered: Potassium 3.2, phosphorus 2.4, magnesium 1.9 Potassium and phosphorus supplements ordered around 5 PM, patient had a recurrence of the episode Lasted longer for about 10 more seconds Code purple called Seen resting in bed, awake and alert , not in distress blood pressure elevated but not hypoxic clear breath sounds bilaterally, tachycardic Stat dose Ativan 1 mg IM given 2 L of O2 nasal cannula started Assessment and plan Breakthrough seizures Patient missed doses of Lamictal and Keppra over the weekend Discussed with neurologist Dr. Alberto Choi Recommend loading dose of Keppra 2000 mg IV, continue usual Keppra dose tonight. If patient refuses, give in IV form Recommend additional Lamictal to 50 mg p.o. now, continue usual Lamictal dose tonight EEG IV potassium, magnesium, phosphorus ordered D5 NS as ordered 04/12 No seizure-like activity overnight Electrolytes better usual Keppra 1500 mg p.o. twice daily converted to IV for now for better adherence continue Lamictal, and other usual meds EEG ordered: Pending 04/13-04/14 Pt in no distress, awake, alert, no seizure like activity reported 04/15 Pt had urologic procedure yesterday, today more drowsy, not very cooperative, poor PO intake 04/16 Pt awake, cooperative, had breakfast and took her po meds this AM. Overall pt appears comfortable. 04/17 Overnight pulled out her Alcantara. Not very cooperative this AM, did not take po meds AM, will try again later today. Per RN pt is voiding w/o difficulty. 04/18 Pt lying in bed this AM, sleepy but calm, opens eyes, took her AM beds per RN. 04/19 Lying in bed in NAD, sleepy, opens eyes. Discussed w/ RN plan to reposition frequently to help pass flatus, have BM, updated on discussion w/ urology. 04/20 Pt is awake, alert, drinks coke during my eval. Appears comfortable, had several BMs per RN, pt appears back to her baseline - also urology updated 04/21 no acute issues discussed with RN to ensure patient is taking her medications regularly to avoid a seizure recurrence, enlist help of the [facility] staff if patient is declining oral meds #Severe Bacteriuria #Ureteral Stent -unclear if patient has symptoms, hemodynamically stable at this time, no sepsis criteria -UA appears to be significantly infected in setting of chronic colonization Plan: -urology consult, appreciate recs -follow up outpatient -ID consult, appreciate recs 04/10: Urine culture: (+) Proteus deescalated Cefepime to Ceftriaxone d/c on PO Augmentin, to be continued until planned stent removal has been completed on 04/26/25 per ID recommendation will need probiotics x 1 month at least encourage to drink plenty of fluids - transitioned to Augmentin as IV site was pulled Boost ordered for supplement 04/12 continue ceftriaxone IV for now while admitted per ID service, plan to cover with Augmentin after planned Ureteral stent procedure on Apr 26 hence, last day for Augmentin 875mg BID is April 29, 2025 recommend to check complete metabolic profile weekly while on Augmentin course 04/13 Contacted by urology - plan for kidney stone treatment possibly tmrw, npo after [place] 04/14 Discussed this AM w/ ID - will give her 800 IV fluconazole today given her last ucultx growing [place] as she is going for invasive procedure to prevent candidemia 04/18 Discussed w/ urology that they plan to remove stent - CT abdomen ordered 1. New right ureteral stent in good position. Inflammation about the mid stent. Correlate with urinalysis for pyelitis. No hydronephrosis. 2. Stable size and interval liquefaction of left perinephric hematoma. 3. Bilateral nonobstructing kidney stones. Them pression colonic ileus. 4. Distended gallbladder contains hyperdense material likely reflects vicarious excretion as no stones seen on the prior studies. 04/19 Discussed w/ urology to hold any procedure now until pt has BM / passes flatus, given colon distention on CT and no BM per nursing staff. 04/20 Pt seems to be much improved, had BMs, took her pills, today drinks a coke on my eval, seems back to baseline -> urology also updated 04/21: Per urology, patient for removal of right ureteral stent today #Episode of Vomiting KUB: no obstruction, minimal fecal load clear breath sounds BL resume diet, always with assistance vomiting from UTI? Cefepime? continue supportive care, monitor closely -- resolved #Lateral T Wave Inversions -new from 2016 -unclear if any symptoms troponin 10.9--> 15.2--> 11.1 echo: left ventricular wall motion is normal left ventricular systolic function is normal left ventricular ejection fraction = 55-60% right ventricle is normal in size and function severe focal calcification of the posterior mitral valve annulus mild prolapse of the posteriors mitral valve leaflet mild mitral regurgitation grade 1 diastolic dysfunction compared to the report of previous study 12/18/2024, severe mitral annular calcification also noted at that time Mild mitral regurgitaion now noted #Severe Intellectual Disability #OCD #IAN -continue home meds austedo xr, perphenazine (decreased dose), seroquel, zoloft -continue miralax, bisacodyl suppository prn for constipation, -mouth care ordered -continue keppra and lamictal Disposition pending Anticipate discharge to the [facility] when medically stable, likely after urology procedure Admission and Anticipated Discharge Date Admission Date: April 05, 2025 Subjective seen resting in bed, comfortable, not in distress Discussed with RN, patient was declining to take p.o. meds this morning No signs of distress, shortness of breath No recurrence of seizure-like episodes per RN No other new symptoms or issues Review of Systems Review of Systems: all noted and negative except for above Physical Exam Physical Exam: General- oriented x 0, nonverbal, not in distress, breathing with no effort or accessory muscle use Eyes- anicteric Neck- no JVD Lungs- clear breath sounds bilaterally, no rales/wheezes Heart- normal rate, regular rhythm; no murmurs Abdomen- normal bowel sounds, nondistended, soft, nontender Extremities- no pretibial edema, no calf tenderness Neuro- alert, oriented x 0; no new gross focal neurologic deficits Skin- warm & dry Results & Data Results & Data Vital Signs (Past 12 Hours) Vital Signs Temp Pulse Pulse Resp BP Pulse Ox O2 Del Method 04/21/25 11:28 36.9 C 67 18 134/65 97 Room Air 04/21/25 07:39 36.3 C L 67 18 141/68 H 98 Room Air 04/21/25 07:06 58 L 04/21/25 03:42 36.7 C 81 20 128/64 100 Room Air all noted and reviewed including below
[2025-04-21 13:14] LABS: Anion Gap 8.0 (3-11); Blood Urea Nitrogen 6.0 mg/dl (6-23); Calcium 8.9 mg/dl (8.6-10.3); Carbon Dioxide 27.0 mmol/L (21-32); Chloride 103.0 mmol/L (98-107); Creatinine Clr Calc Pharmacy 63.9 ml/min; Glucose 98.0 mg/dl (70-99(Fasting)); Magnesium 1.9 mg/dl (1.7-2.4); Potassium 5.0 mmol/L (3.5-5.1); Sodium 138.0 mmol/L (136-145)
--- NOTE | 2025-04-21 13:43 | Urology Progress Note ---
Date of Service April 21, 2025 Assessment & Plan (1) Nephrolithiasis: (2) Ureteral stent present: Plan: - Afebrile, hemodynamically stable. - Labs today show no leukocytosis and creatinine normal. - Urine culture 04/12 grew Sarah albicans. - She continues on Ceftriaxone. - CT 04/18 showed the right ureteral stent in good position, inflammation around the stent, no hydronephrosis, stable left perinephric hematoma, bilateral nonobstructing kidney stones. - Since she has remained hospitalized, discussed stent removal while inpatient on IV antibiotics - Discussed surgical intervention with hospital medicine- patient is medically stable for intervention - Discussed with her medical POA, Mary Munoz, who is agreeable to proceed with cystoscopy, bilateral retrograde pyelogram, possible ureteroscopy, laser lithotripsy, stent removal versus exchange - Plan to proceed to OR for cystoscopy, bilateral retrograde pyelogram, possible ureteroscopy and stone treatment, stent removal/exchange with Dr. Napoles - Risks and benefits of procedure per consent reviewed with Mary via telephone, consent signed with Dr. Napoles, and witnessed by me - Keep NPO for procedure - Continue antibiotics and supportive care - Plan of care reviewed with Dr. Napoles, see attending note for further details Attending note: Patient independently assessed, examined, interviewed, and evaluated. Patient with severe bilateral stone disease status post bilateral treatment. Has minor residual stones on imaging. Has retained stent after last procedure last week. Plan was to remove in office however patient was monitored in the hospital and was then therefore plan to have the stent removed while hospitalized. Agree with note as above. Patient's vitals and labs were all reviewed. Pertinent values in the HPI and plan section. Imaging was reviewed interpreted by myself. Agree with read. Vitals were reviewed. Discussed findings extensively with patient and family. Reviewed with nurse practitioner as well as consulting physicians/team. Patient's complicated medical and surgical history was reviewed and summarized above. Patient's surgical, medical, social, and family history were all reviewed with pertinent values as above. Discussed patient's current diagnosis as well as concerns and issues. Reviewed different options moving forward. Discussed potential risks and benefits as well as possible options and concerns. Patient with severe baseline intellectual disability/neurogenic issues. Is largely nonverbal. Extensive conversation with patient's MPOA Mary Muonz [phone] Reviewed potential surgical options and interventions. Discussed potential issues and concerns related to intervention. Risk and benefits were discussed extensively patient's MPOA. Discussed potential risks related to anesthesia. Discussed risks of bleeding infection and injury. Risks and benefits discussed at length for procedure. These include bleeding, infection, injury to surrounding tissues or organs, and risks associated with anesthesia. Patient states understanding and agrees to proceed. Will sign consent and schedule. Plan for cystoscopy with possible bilateral retrograde pyelograms possible stent extraction possible ureteroscopy and stone treatment Admission and Anticipated Discharge Date Admission Date: April 05, 2025 Subjective Patient seen at bedside today. Awake and resting in bed. No acute distress. Appears comfortable. Review of Systems Constitutional: as per Subjective / HPI Genitourinary: as per Subjective / HPI Physical Exam Constitutional: no acute distress Respiratory: no respiratory distress and no labored breathing Neurologic: awake Psychiatric: Orientation: alert Results & Data Vital Signs (Past 12 Hours) Vital Signs Temp Pulse Pulse Resp BP Pulse Ox O2 Del Method 04/21/25 11:28 36.9 C 67 18 134/65 97 Room Air 04/21/25 07:39 36.3 C L 67 18 141/68 H 98 Room Air 04/21/25 07:06 58 L 04/21/25 03:42 36.7 C 81 20 128/64 100 Room Air PG Care Time/CCT Total # of Minutes Spent Total Time Spent with Patient: Total time spent is greater than 50% in coordination of care (as documented) at patient's floor/unit and/or counseling patient: Coding Level of Care Code 71000 SUB INP/OBS CARE 3/50MIN Diagnoses Nephrolithiasis N20.0 Ureteral stent present Z96.0
[2025-04-21] MEDS: LACTATED RINGER'S 1,000 ML IV SCH (14:22)
[2025-04-21] MEDS ORDERED: ATROPINE SULFATE 0.1 MG/ML 10ML SYR IV PRN (15:04)
[2025-04-21] MEDS ORDERED: ONDANSETRON INJ 2 MG/ML 2 ML VIAL IV PRN (15:04)
[2025-04-21] MEDS: DIATRIZOATE MEGLUMINE 30% 100ML VIAL INSTIL ONE (15:33)
--- NOTE | 2025-04-21 15:39 | Operative Report ---
PG Post Operative Report Pre & Post Diagnosis Operation Date: 04/21/25 13:45 Pre-Op Diagnosis: Nephrolithiasis Post-Op Diagnosis: Nephrolithiasis I identified the patient and participated in the time-out.: Yes Procedure Operation Date: 04/21/25 13:45 Actual Procedures p Cystoscopy, Bilateral Retrograde Pyelogram,Right Stent Removal - Dilip Napoles DO Surgeon Dilip Napoles, II, DO Web Production Artist None Estimated Blood Loss 0 Findings Consistent with Post-Op Diagnosis Stent found to be draining without major issue. The stent was able to grasp and removed without major issue. Bilateral retrograde pyelograms were completed with good drainage films appreciated after injection. No sign of major obstruction filling defect or other abnormality Specimens None Drains None Anesthesia Type General Complications none Disposition Disposition: Recovery Room Indications Patient with obstruction from stones. Was presenting for reevaluation and possible stent removal with recurrent UTI. Risks and benefits discussed at length. Description of Procedure Patient was consented and brought back to the operating room. Patient was placed under anesthesia in the supine position and moved to the dorsal lithotomy position. Patient was prepped and draped in the regular sterile fashion. A time out was completed. A 30degree Cystoscope was placed into the bladder and the entire bladder was examined. The UO's were identified. The right stent was identified. It was grasped and removed. Once the stent was grasped and removed it was disposed of. A retrograde pyelogram was then completed. The UO, first the left and then the right, was cannulized with a catheter and a retrograde pyelogram was completed. On retrograde pyelogram there was no significant filling defects or major abnormalities. Drainage films showed good drainage of the kidney without major signs of obstruction or other issues. With the stent removed and no sign of obstruction, the bladder was emptied. The scope was removed. The patient was cleaned, aroused from anesthesia, and transferred to the pacu in stable condition having tolerated the procedure well with no complications. I was present and participated in all aspects of the procedure. The patient will be monitored in the PACU until transferred. Will plan to have patient return for follow-up in the office in the [facility] in approximately 2 to 3 months. Will likely need imaging at that time I attest to the content of the Intraoperative Record and any orders documented therein. Any exceptions are noted below.
--- NOTE | 2025-04-21 15:45 | Fluoroscopy Report ---
FL retrograde includes kub CLINICAL HISTORY: B/L RETROGRADE AND STENT PLACEMENTbilateral retrograde cystourethrogram COMPARISON STUDY: CT 04/18/2025 FLUOROSCOPY TIME: 8.5 seconds FLUOROSCOPY IMAGES: 3 EXPOSURE DOSE: 1.43 mGy FINDINGS: Contrast noted within the bilateral renal collecting systems. No significant hydronephrosis or ureteral filling defects identified. IMPRESSION: Fluoroscopic assistance as above. ACT 112: Negative or not required by law. Electronically signed by: Vince Cervantes M.D. 04/21/2025 3:44 PM
--- NOTE | 2025-04-21 16:15 | Anesthesiology Progress Note ---
Date of Service April 21, 2025 Anesthesia Post Procedure Vital Signs Vital Signs: Temp Pulse Pulse Pulse Resp BP Pulse Ox 04/21/25 16:00 77 18 144/60 H 100 04/21/25 15:50 79 20 127/66 100 04/21/25 15:43 36 C L 81 17 147/73 H 100 04/21/25 14:12 36.2 C L 66 20 159/69 H 96 04/21/25 13:30 70 04/21/25 11:28 36.9 C 67 18 134/65 97 04/21/25 07:39 36.3 C L 67 18 141/68 H 98 04/21/25 07:06 58 L 04/21/25 03:42 36.7 C 81 20 128/64 100 04/21/25 00:15 36.6 C 64 18 123/74 95 04/20/25 22:10 65 04/20/25 19:48 36.7 C 102 H 20 146/55 H 92 O2 Del Method O2 Flow Rate 04/21/25 16:00 Oxymask 4 04/21/25 15:50 Oxymask 6 04/21/25 15:43 Oxymask 8 04/21/25 14:12 Room Air 04/21/25 13:30 04/21/25 11:28 Room Air 04/21/25 07:39 Room Air 04/21/25 07:06 04/21/25 03:42 Room Air 04/21/25 00:15 Room Air 04/20/25 22:10 04/20/25 19:48 Room Air Transfer of Care Handoff Completed per policy Notes Mental Status: alert / awake / arousable Patient Amnestic to Procedure: Yes Nausea / Vomiting: adequately controlled Pain: adequately controlled Airway Patency, RR, SpO2: stable & adequate BP & HR: stable & adequate Hydration State: stable & adequate Anesthetic Complications: no major complications apparent and Pt Satisfied with anesthetic care
--- NOTE | 2025-04-22 11:22 | Urology Progress Note ---
Date of Service April 22, 2025 Assessment & Plan (1) Nephrolithiasis: (2) Ureteral stent present: Plan - POD #1 s/p Cystoscopy, Bilateral Retrograde Pyelogram,Right Stent Removal. - Afebrile and hemodynamically stable. - Labs today show no leukocytosis, hemoglobin 11.4, and creatinine normal. - Ok for discharge from standpoint. - Will arrange outpatient follow-up with our service. - Urology will sign-off. Please call with any further questions/concerns. Admission and Anticipated Discharge Date Admission Date: April 05, 2025 Subjective Patient seen at bedside today. Awake and resting in bed. No acute distress. Appears comfortable. Review of Systems Constitutional: as per Subjective / HPI Genitourinary: as per Subjective / HPI Physical Exam Constitutional: no acute distress Respiratory: no respiratory distress and no labored breathing Neurologic: awake Psychiatric: Orientation: alert Results & Data Vital Signs (Past 12 Hours) Vital Signs Temp Pulse Pulse Resp BP Pulse Ox O2 Del Method 04/22/25 08:01 36.9 C 69 16 101/56 L 95 Room Air 04/22/25 07:35 Room Air 04/22/25 06:56 66 04/22/25 04:00 36.8 C 73 18 109/67 95 Room Air 04/22/25 03:48 36.6 C 70 18 149/77 H 92 Room Air 04/22/25 00:00 36.7 C 72 18 139/79 93 Room Air PG Care Time/CCT Total # of Minutes Spent Total Time Spent with Patient: Total time spent is greater than 50% in coordination of care (as documented) at patient's floor/unit and/or counseling patient: Coding Level of Care Code 62125 SUB INP/OBS CARE 09/11MIN Diagnoses Nephrolithiasis N20.0 Ureteral stent present Z96.0
--- NOTE | 2025-04-22 12:02 | Discharge Summary ---
Discharge Summary Date of Service April 22, 2025 Principal Dx & Hospital Course #1 = Principal Diagnosis (1) Nephrolithiasis: (2) Ureteral stent present: (3) Nonverbal: (4) Complicated UTI (urinary tract infection): (5) Severe intellectual disability: (6) Fatty (change of) liver, not elsewhere classified: (7) Tremor, unspecified: Plan 59 yo female with pmhx of severe intellectual disability c/b epilepsy, nonverbal status, fecal/urinary incontinence, s/p recent urethral stent placement, fatty liver disease, GERD, OCD, IAN, who presents for a fall from the [facility]. #Fall #Epilepsy Breakthrough seizures -unclear cause of fall from bed, likely mechanical in nature -per caregiver patient currently at baseline, concern is that UTI cause fall and they do not want her to become septic -lower on differential includes stroke (patient at baseline), arrythmia (unlikely to cause fall from bed), seizures (does have epilepsy so possible) Plan: -gentle hydration -neurology consult, appreciate recs for consideration of seizure and polypharmacy -decreased dose of perphenazine 04/11 while being transported from bed to wheelchair for discharge by staff from the ER, patient noted to have some shaking of the arms and followed by fixed gaze to the right for about 20 seconds Afterwards, patient noted to be back to her baseline Stat CT head ordered: no acute process Stat Labs ordered: Potassium 3.2, phosphorus 2.4, magnesium 1.9 Potassium and phosphorus supplements ordered around 5 PM, patient had a recurrence of the episode Lasted longer for about 10 more seconds Code purple called Seen resting in bed, awake and alert , not in distress blood pressure elevated but not hypoxic clear breath sounds bilaterally, tachycardic Stat dose Ativan 1 mg IM given 2 L of O2 nasal cannula started Assessment and plan Breakthrough seizures Patient missed doses of Lamictal and Keppra over the weekend Discussed with neurologist Dr. Alberto Choi Recommend loading dose of Keppra 2000 mg IV, continue usual Keppra dose tonight. If patient refuses, give in IV form Recommend additional Lamictal to 50 mg p.o. now, continue usual Lamictal dose tonight EEG IV potassium, magnesium, phosphorus ordered D5 NS as ordered 04/12 No seizure-like activity overnight Electrolytes better usual Keppra 1500 mg p.o. twice daily converted to IV for now for better adherence continue Lamictal, and other usual meds 9/5 No recurrence of breakthrough seizures Continue usual antiseizure medications, please ensure consistent medication intake daily Continue to monitor electrolytes including potassium, magnesium, phosphorus closely Outpatient follow-up with neurologist #Severe Bacteriuria #Ureteral Stent -unclear if patient has symptoms, hemodynamically stable at this time, no sepsis criteria -UA appears to be significantly infected in setting of chronic colonization Plan: -urology consult, appreciate recs -follow up outpatient -ID consult, appreciate recs 04/10: Urine culture: (+) Proteus deescalated Cefepime to Ceftriaxone continued on ceftriaxone IV while admitted 04/14 status post left stent removal, Right ureteroscopy, laser lithotripsy, stone basket extraction, stent placement 04/14 Discussed this AM w/ ID - will give her 800 IV fluconazole today given her last ucultx growing [place] as she is going for invasive procedure to prevent candidemia 04/18 Discussed w/ urology that they plan to remove stent - CT abdomen ordered 1. New right ureteral stent in good position. Inflammation about the mid stent. Correlate with urinalysis for pyelitis. No hydronephrosis. 2. Stable size and interval liquefaction of left perinephric hematoma. 3. Bilateral nonobstructing kidney stones. Them pression colonic ileus. 4. Distended gallbladder contains hyperdense material likely reflects vicarious excretion as no stones seen on the prior studies. 04/21: Status post removal of right ureteral stent 04/22 cleared for discharge by urology service, outpatient follow up There is a new heterogeneous area of hypodensity in the periphery of the right lobe of the liver measuring 2.4 x 1.7 x 2.2 cm. -Further work up, management, and ff up as outpatient #Episode of Vomiting KUB: no obstruction, minimal fecal load clear breath sounds BL resume diet, always with assistance vomiting from UTI? Cefepime? continue supportive care, monitor closely -- resolved #Lateral T Wave Inversions -new from 2016 -unclear if any symptoms troponin 10.9--> 15.2--> 11.1 echo: left ventricular wall motion is normal left ventricular systolic function is normal left ventricular ejection fraction = 55-60% right ventricle is normal in size and function severe focal calcification of the posterior mitral valve annulus mild prolapse of the posteriors mitral valve leaflet mild mitral regurgitation grade 1 diastolic dysfunction compared to the report of previous study 12/18/2024, severe mitral annular calcification also noted at that time Mild mitral regurgitaion now noted #Severe Intellectual Disability #OCD #IAN -continue home meds austedo xr, perphenazine (decreased dose-3 mg at bedtime, 1 mg in the morning), seroquel, zoloft -continue miralax, bisacodyl suppository prn for constipation, -mouth care ordered -continue keppra and lamictal Disposition Return to the [facility] Follow-up with PCP in 1 week Follow-up with urology as an outpatient Follow-up with neurology as an outpatient Notes For Next Care Provider Medication Changes From Visit per medical reconciliation form Admission HPI Per Admitting Provider 59 yo female with pmhx of severe intellectual disability c/b epilepsy, nonverbal status, fecal/urinary incontinence, s/p recent urethral stent placement, fatty liver disease, GERD, OCD, IAN, who presents for a fall from the [facility]. Had recent admission 02/2025 for urosepsis now s/p stent placement and abx. In the ED, given cefepime, labwork, urology requested admission to prevent decompensation of possible UTI, admitted to medicine. Patient seen and examined at bedside. Patient nonverbal. [facility] caregiver present and provides entire history. Patient was found fallen off of her bed. Yesterday appeared spacy and "out of it." Otherwise she appears to be similar to how she always is. States that they are concerned she has a UTI and would like it evaluated and stabilized before discharge. Patient will selectively refuse medications. Understands conversations but not able to verbalize any response. Occasionally walks but is unlikely to do so here per caregiver. Things important to her care: chocolate pudding for giving meds, does not like socks, will not drink plain water likes flavored water. Aunt Mary in chart is medical power of state attorney, if unable to be reached [employer] [facility] able to consent for procedures. Full code. Admission Exam Per Admitting Provider Gen: A&O 0 NAD HEENT: NCAT, EOMI, not icteric. External ears normal. No rhinorrhea. Dry mucous membranes. Neck: Supple, full range of motion, no observable masses, No meningeal sign. Lungs: No Respiratory distress. CV: RRR, no edema. Abdomen: Soft, nondistended, No rebound tenderness. MSK: No joint swelling, no redness. Skin: No rashes, petechiae, lesions. Neuro: chronic tremors bilaterally, baseline per caregiver Discharge Exam General- awake, alert, nonverbal, not in distress, breathing with no effort or accessory muscle use Eyes- anicteric Neck- no JVD Lungs- clear breath sounds bilaterally, no crackles/wheezing Heart- normal rate, regular rhythm; no murmurs Abdomen- normal bowel sounds, nondistended, soft, nontender Extremities- no pretibial edema, no calf tenderness Neuro- alert, no new gross focal neurologic deficits Skin- warm & dry Updated Medication List Medication Instructions Recorded Confirmed Type acetaminophen 500 mg tablet 500 mg PO QAM chronic pain 12/15/24 04/05/25 History aloe vera 1 applic topical Q1H PRN Sunburn 12/15/24 04/05/25 History aluminum-mag hydroxide-simethicone 10 ml PO DIRECTED PRN 12/15/24 04/05/25 History 400 mg-400 mg-40 mg/5 mL oral susp Indigestion (Maalox Maximum Strength) bisacodyl 5 mg tablet,delayed 10 mg PO Q3D PRN Constipation 12/15/24 04/05/25 History release (Dulcolax (bisacodyl)) chlorhexidine gluconate 0.12 % 1 applic buccal TID chronic 12/15/24 04/05/25 History mouthwash gingivitis clobazam 10 mg tablet (Onfi) 5 mg PO HS 12/15/24 04/05/25 History deutetrabenazine 36 mg 36 mg PO DAILY 12/15/24 04/05/25 History tablet,extended release 24 hr (Austedo XR) docusate sodium 100 mg capsule 100 mg PO AMHS 12/15/24 04/05/25 History famotidine 40 mg tablet (Pepcid) 40 mg PO DAILY 12/15/24 04/05/25 History glycopyrrolate 1 mg tablet 1 mg PO TID excessive drooling 12/15/24 04/05/25 History (Robinul) hydrocortisone 1 % topical cream 1 applic topical TID PRN Rash 12/15/24 04/05/25 History lamotrigine 100 mg tablet 50 mg PO AMHS 12/15/24 04/05/25 History lamotrigine 200 mg tablet 200 mg PO AMHS 12/15/24 04/05/25 History (Lamictal) levetiracetam 1,000 mg tablet 1,000 mg PO BID 12/15/24 04/05/25 History levetiracetam 500 mg tablet 500 mg PO BID 12/15/24 04/05/25 History (Keppra) loperamide 2 mg capsule (Imodium 2 mg PO DIRECTED PRN Loose Stool 12/15/24 04/05/25 History A-D) multivitamin 1 tab PO QAM 12/15/24 04/05/25 History phosphorated carbohydrate oral 30 ml PO DIRECTED PRN Nausea 12/15/24 04/05/25 History solution (Emetrol oral solution) polyethylene glycol 3350 17 17 g PO QAM 12/15/24 04/05/25 History gram/dose oral powder (Miralax) quetiapine 200 mg tablet (Seroquel) 200 mg PO HS 12/15/24 04/05/25 History quetiapine 50 mg tablet (Seroquel) 50 mg PO QAM 12/15/24 04/05/25 History sertraline 100 mg tablet (Zoloft) 100 mg PO QAM 12/15/24 04/05/25 History cholecalciferol (vitamin D3) 125 125 mcg PO QAM #30 tabs 12/24/24 04/05/25 Rx mcg (5,000 unit) tablet ferrous sulfate 325 mg (65 mg 325 mg PO BIDM #60 tabs 12/24/24 04/05/25 Rx iron) tablet,delayed release calcium polycarbophil 625 mg 625 mg PO QAM 01/05/25 04/05/25 History tablet (FiberCon) neomycin-bacitracn Zn-polymyxn 3.5 1 applic topical BID PRN abrasion 01/05/25 04/05/25 History mg-400 unit-5,000 unit top oint until resolved pkt (Triple Antibiotic) acetaminophen 500 mg tablet 1,000 mg PO Q4H PRN elevated 02/09/25 04/05/25 History temp/headache/mild pain fluoride (sodium) 1.1 % dental 1 applic dental BID 02/09/25 04/05/25 History cream (SF 5000 Plus) calcium 500 mg (as 1 tab PO QAM 02/21/25 04/05/25 History carbonate)-vitamin D3 5 mcg (200 unit) tablet nystatin 100,000 unit/gram topical 1 applic topical HS 02/21/25 04/05/25 History cream dextromethorphan-guaifenesin 10 5 ml PO Q4 PRN Cough 04/05/25 04/05/25 History mg-200 mg/5 mL oral liquid metoprolol succinate 25 mg 25 mg PO DAILY 04/05/25 04/05/25 History tablet,extended release 24 hr phenylephrine HCl 10 mg tablet 10 mg PO Q4 PRN colds/runny nose 04/05/25 04/05/25 History Lactobacillus acidoph-L.bulgaricus 1 tab PO DAILY 30 days #30 tabs 04/08/25 Rx 1 million cell tablet (Floranex) perphenazine 2 mg tablet 1 mg (1/2 x 2 mg) PO QAM 30 days 04/08/25 Rx #15 tabs perphenazine 2 mg tablet 3 mg (1.5 x 2 mg) PO HS 30 days 04/08/25 Rx #45 tabs Hospital Stay Data Consultations 04/05/25 13:34 ED Decision to Admit Stat 04/05/25 14:16 Consult Neurology Routine 04/05/25 14:19 Consult Urology Routine 04/05/25 14:24 Consult Infectious Diseases Routine Procedures Performed Operation Date: 04/21/25 13:45 Actual Procedures p Cystoscopy, Bilateral Retrograde Pyelogram,Right Stent Removal - Dilip Napoles, DO Diagnostic Imagining Performed Laboratory Results WBC 6.21 K/ul (4.8-10.8) 04/21/25 12:27 RBC 4.52 M/uL (4.20-5.40) 04/21/25 12:27 Hgb 11.4 g/dl (12.0-16.0) L 04/21/25 12: Hct 36.1 % (37.0-47.0) L 04/21/25 12: MCV 79.9 fL (80.0-100.0) L 04/21/25 12:27 MCH 25.2 pg (25.0-34.0) 04/21/25 12: MCHC 31.6 g/dL (32.0-36.0) L 04/21/25 12:27 RDW Std Deviation 48.0 fL (36.4-46.3) H 04/21/25 12:27 RDW Coeff of Nic 16.7 % (11.5-14.5) H 04/21/25 12:27 Plt Count 317 K/uL (130-400) 04/21/25 12:27 MPV 10.3 fL (9.4-12.4) 04/21/25 12:27 Immature Gran % (Auto) 0.7 % 04/14/25 11:05 Neut % (Auto) 58.4 % 04/14/25 11:05 Lymph % (Auto) 27.5 % 04/14/25 11:05 [place] % (Auto) 11.5 % 04/14/25 11:05 Eos % (Auto) 1.2 % 04/14/25 11:05 Baso % (Auto) 0.7 % 04/14/25 11:05 Neut # (Auto) 4.46 K/uL (1.40-6.50) 04/14/25 11:05 Lymph # (Auto) 2.10 K/uL (1.20-3.40) 04/14/25 11:05 [place] # (Auto) 0.88 K/uL (0.11-0.59) H 04/14/25 11:05 Eos # (Auto) 0.09 K/uL (0.00-0.50) 04/14/25 11:05 Baso # (Auto) 0.05 K/uL (0.00-0.20) 04/14/25 11:05 Immature Gran # (Auto) 0.05 K/uL (0.01-0.20) 04/14/25 11:05 PT 10.5 Seconds (9.0-12.0) 04/05/25 11:29 INR 1.0 (0.9-1.1) 04/05/25 11:29 APTT 25 Seconds (21-31) 04/05/25 11:29 PTT Ratio 0.9 04/05/25 11:29 Sodium 138 mmol/L (136-145) 04/21/25 12:27 Potassium 5.0 mmol/L (3.5-5.1) D 04/21/25 12:27 Chloride 103 mmol/L (98-107) 04/21/25 12:27 Carbon Dioxide 27 mmol/L (21-32) 04/21/25 12:27 Anion Gap 8 (3-11) 04/21/25 12:27 BUN 6 mg/dl (6-23) 04/21/25 12:27 Creatinine 0.72 mg/dl (0.6-1.2) 04/21/25 12:27 Est Cr Clr Drug Dosing 63.9 ml/min 04/21/25 12:27 eGFR 96.26 04/21/25 12:27 BUN/Creatinine Ratio 8.3 (10-20) L 04/21/25 12:27 Glucose 98 mg/dl (70-99(Fasting)) 04/21/25 12:27 POC Glucose 210 mg/dl (70-99) H 04/11/25 17:38 Calcium 8.9 mg/dl (8.6-10.3) 04/21/25 12:27 Phosphorus 3.8 mg/dl (2.5-4.9) 04/21/25 12:27 Magnesium 1.9 mg/dl (1.7-2.4) 04/21/25 12:27 Total Bilirubin 0.2 mg/dl (0.2-1.0) 04/15/25 09:16 AST 11 U/L (13-39) L 04/15/25 09:16 ALT 11 U/L (7-52) 04/15/25 09:16 Alkaline Phosphatase 162 U/L (34-104) H 04/15/25 09:16 Troponin I High Sens 11.1 pg/ml (0-14) D 04/06/25 19:14 Total Protein 6.6 gm/dl (6.0-8.3) 04/15/25 09:16 Albumin 3.3 gm/dl (3.4-5.0) L 04/15/25 09:16 Globulin 3.3 gm/dl (2.5-4.0) 04/15/25 09:16 Albumin/Globulin Ratio 1.0 (0.9-2) 04/15/25 09:16 Urine Color Yellow 04/12/25 06:55 Urine Appearance Cloudy (Clear) A 04/12/25 06:55 Urine pH 6.5 (4.5-7.5) 04/12/25 06:55 Ur Specific [place] 1.012 (1.000-1.030) 04/12/25 06:55 Urine Protein 1+ (Negative) H 04/12/25 06:55 Urine Glucose (UA) Negative (Negative) 04/12/25 06:55 Urine Ketones Negative (Negative) 04/12/25 06:55 Urine Blood 2+ (Negative) H 04/12/25 06:55 Urine Nitrite Negative (Negative) 04/12/25 06:55 Urine Bilirubin Negative (Negative) 04/12/25 06:55 Urine Urobilinogen Negative (Negative) 04/12/25 06:55 Ur Leukocyte Esterase 3+ (Negative) H 04/12/25 06:55 Urine WBC (Auto) >50 /hpf (0-5) H 04/12/25 06:55 Urine RBC (Auto) >20 /hpf (0-2) H 04/12/25 06:55 U Hyaline Cast (Auto) 3-5 /lpf (0-2) H 04/12/25 06:55 U Epithel Cells (Auto) 0-2 /hpf (0-2) 04/12/25 06:55 Urine Bacteria (Auto) None Seen (None Seen) 04/12/25 06:55 Urine Yeast Present (None Prsent) A 04/12/25 06:55 Urine Comment 04/12/25 06:[address] 04/05/25 10:51 CT SCAN OF THE CERVICAL SPINE CLINICAL HISTORY: Trauma. COMPARISON STUDY: Cervical spine CT July 25, 2023. TECHNIQUE: CT scan of the cervical spine is performed from the skull base to the upper thoracic spine. Images are reviewed in the axial, sagittal, and coronal planes. IV contrast was not administered for this examination. A dose lowering technique was utilized adhering to the principles of ALARA. CT DOSE: 1150.32 mGy.cm FINDINGS: This exam is mildly compromised given difficulty positioning. There is reversal of the cervical lordosis. No acute cervical spine fractures are identified. The facet joints are intact. There is no prevertebral edema. There is mild disc space narrowing and extensive anterior osteophytosis of the cervical spine. There is mild multilevel facet arthrosis. IMPRESSION: 1. No acute cervical spine fracture or subluxation. 2. Exam mildly compromised given difficulty positioning. ACT 112: Negative or not required by law. Electronically signed by: Henry Ayala M.D. 04/05/2025 12:12 PM Chest X-Ray 04/05/25 10:51 XR chest 1V portable CLINICAL HISTORY: trauma COMPARISON STUDY: 03/02/2025 FINDINGS: Stable mitral valve calcification. Stable cardiomegaly without pulmonary vascular congestion. No consolidation or pleural effusion seen. No pneumothorax. IMPRESSION: No acute findings seen. ACT 112: Negative or not required by law. Electronically signed by: Filiberto Smith M.D. 04/05/2025 11:10 AM Pelvis X-Ray 04/05/25 10:51 XR pelvis 1-2V routine CLINICAL HISTORY: trauma COMPARISON: 03/09/2025 FINDINGS: Stable left ureteral stent. Stable severe degenerative changes right hip. No fracture or dislocation seen at the pelvis. IMPRESSION: No fracture seen. ACT 112: Negative or not required by law. Electronically signed by: Filiberto Smith M.D. 04/05/2025 11:[address] 04/11/25 15:33 Clinical History: Possible seizure Technique: Axial computed tomography images were obtained of the brain without intravenous contrast. Comparison is made to the prior CT dated 04/05/2025 Findings: Areas of decreased attenuation are seen within the periventricular white matter, likely representing chronic small vessel ischemic disease. There is no definite sign of acute or old infarction. No intracranial hemorrhage is evident. No definite mass lesion is seen on this noncontrast examination. There is no midline shift or other form of herniation. No hydrocephalus is seen. There are dystrophic calcifications along the falx cerebri. No fracture is identified. There is hyperostosis frontalis interna. There is mucosal thickening in the left maxillary sinus. The mastoid air cells appear clear. Impression: 1. Apparent chronic small vessel ischemic disease 2. Chronic sinusitis Electronically signed by Landon Cason 04-11-2025 4:27 PM KUB X-Ray 04/12/25 13:19 EXAMINATION: X-ray KUB/abdomen 1 view CLINICAL HISTORY: Constipation, rule out obstruction PRIORS: 04/07/2025 TECHNIQUE: Frontal view abdomen. Positioning challenges were encountered. FINDINGS: Overlying bowel gas and stool obscures fine bone detail. A left ureteral stent present, unchanged. No formed stool present throughout the colon. No dilated loops of bowel. No air-fluid levels. [id number] degenerative change of the right hip with possible dysplastic changes. IMPRESSION: No significant amount of stool throughout the colon with nondilated, nonobstructed bowel gas pattern. Electronically signed by Sofía Hernandez 04-12-2025 5:19 PM Abdomen/Pelvis CT 04/18/25 12:04 EXAM: CT Abdomen and Pelvis Without Intravenous Contrast INDICATION: Kidney stone TECHNIQUE: Axial computed tomography images of the abdomen and pelvis without intravenous contrast. Sagittal and coronal reformatted images were created and reviewed. This CT exam was performed using one or more of the following dose reduction techniques: automated exposure control, adjustment of the mA and/or kV according to patient size, and/or use of iterative reconstruction technique. COMPARISON: 03/09/2025 and 02/21/2025 FINDINGS: Limitations: None. Lung bases: No abnormality noted. Pleural space: No visualized pleural effusion or pneumothorax. Heart: Cardiomegaly. Dense mitral calcification. No basilar pericardial effusion. Mediastinum: No abnormality noted. ABDOMEN: Liver: There is a new heterogeneous area of hypodensity in the periphery of the right lobe of the liver measuring 2.4 x 1.7 x 2.2 cm. Gallbladder and bile ducts: Distended gallbladder with layering hyperdensity consistent with vicarious excretion. No stones seen previously. No ductal dilatation. No biliary gas. Pancreas: No pancreatic mass, calcification, inflammation or ductal dilation noted. Spleen: No significant abnormality noted. Adrenals: No significant abnormality noted. Kidneys and ureters: Left ureteral stent removed. Right ureteral stent in good position. Mild inflammation about the right mid stent. No stones along either stent. Small amounts of air in the right collecting system likely related to recent manipulation. Mild left perinephric edema. No perinephric fluid. Liquefying left lateral perinephric hematoma measuring 1.8 cm thickness. There is mild left perinephric edema. Stomach and bowel: Hyperdense material in the gastric lumen presumably ingested. Diffuse prominent fluid layers throughout the colon with small amounts of formed stool scattered in the colon. No small bowel distention. PELVIS: Appendix: Well seen and appears normal. Bladder: Appears normal for the degree of filling. No stones or inflammation. No large mass. Masses may not be detected in the absence of opacification. Reproductive: No abnormalities noted. ABDOMEN and PELVIS: Intraperitoneal space: No free air. No significant fluid collection. Bones/joints: No acute changes. Soft tissues: No significant abnormality noted. Vasculature: No abdominal aortic aneurysm. Lymph nodes: No pathologically enlarged lymph nodes. IMPRESSION: 1. New right ureteral stent in good position. Inflammation about the mid stent. Correlate with urinalysis for pyelitis. No hydronephrosis. 2. Stable size and interval liquefaction of left perinephric hematoma. 3. Bilateral nonobstructing kidney stones. Them pression colonic ileus. 4. Distended gallbladder contains hyperdense material likely reflects vicarious excretion as no stones seen on the prior studies. ACT 112: N/A Electronically signed by Suzette Wiggins 04-18-2025 13:03 PM Retrograde Pyelogram 04/21/25 13:45 FL retrograde includes kub CLINICAL HISTORY: B/L RETROGRADE AND STENT PLACEMENTbilateral retrograde cystourethrogram COMPARISON STUDY: CT 04/18/2025 FLUOROSCOPY TIME: 8.5 seconds FLUOROSCOPY IMAGES: 3 EXPOSURE DOSE: 1.43 mGy FINDINGS: Contrast noted within the bilateral renal collecting systems. No significant hydronephrosis or ureteral filling defects identified. IMPRESSION: Fluoroscopic assistance as above. ACT 112: Negative or not required by law. Electronically signed by: Vince Cervantes M.D. 04/21/2025 3:44 PM 04/05/25 10:51 CT cervical spine wo con Stat CT head/brain wo con Stat 04/11/25 15:33 CT head/brain wo con Stat 04/14/25 FL retrograde includes kub Routine 04/18/25 12:04 CT Abd and Pelvis [CT abd pelvis wo con] Routine 04/21/25 13:45 FL retrograde includes kub Routine Pending Results Patient Have Any Pending Studies at Discharge: No Discharge Instructions Given to Patient (Per Discharging Provider) Please refer to accompanying hospital discharge summary. Total Time Total Time Spent Total Time Spent (In Minutes): 50 minutes
[2025-04-22 12:18] LABS: Hematocrit (blood only) 31.0 % (37.0-47.0); Hemoglobin 9.9 g/dl (12.0-16.0); Mean Corpuscular Hemoglobin 25.7 pg (25.0-34.0); Mean Corpuscular Volume 80.5 fL (80.0-100.0); Platelet Count 384 K/uL (130-400); RDW Standard Deviation 49.2 fL (36.4-46.3); Red Blood Count 3.85 M/uL (4.20-5.40); White Blood Count 10.34 K/ul (4.8-10.8)
[2025-04-22 12:32] LABS: Anion Gap 8.0 (3-11); Blood Urea Nitrogen 12.0 mg/dl (6-23); Calcium 9.0 mg/dl (8.6-10.3); Carbon Dioxide 29.0 mmol/L (21-32); Chloride 101.0 mmol/L (98-107); Creatinine Clr Calc Pharmacy 54.0 ml/min; Glucose 95.0 mg/dl (70-99(Fasting)); Magnesium 1.8 mg/dl (1.7-2.4); Potassium 4.0 mmol/L (3.5-5.1); Sodium 138.0 mmol/L (136-145)
--- NOTE | 2025-04-23 10:17 | Urology Progress Note ---
Date of Service April 23, 2025 Assessment & Plan (1) Intellectual disability: (2) Nephrolithiasis: Plan: Afebrile hd stable 59F seen after right ureteral stent removal for previously treated right ureter stone. Doing well. - no further intervention planned this admission - can follow as outpatient for management of nephrolithiasis - to signoff - please call with questions Admission and Anticipated Discharge Date Admission Date: April 05, 2025 Subjective no overnight events as per chart and nursing team Results & Data Vital Signs (Past 12 Hours) Vital Signs Temp Pulse Pulse Resp BP Pulse Ox O2 Del Method 04/23/25 07:50 36.6 C 68 18 134/58 L 94 Room Air 04/23/25 05:43 66 04/23/25 03:53 36.9 C 67 16 133/69 93 Room Air Laboratory Results labs reviewed PG Care Time/CCT Total # of Minutes Spent Total Time Spent with Patient: Total time spent is greater than 50% in coordination of care (as documented) at patient's floor/unit and/or counseling patient: Coding Level of Care Code 32400 SUB INP/OBS CARE 09/11MIN Diagnoses Intellectual disability F79 Nephrolithiasis N20.0
--- NOTE | 2025-04-23 17:49 | Hospitalist Progress Note ---
Date of Service April 23, 2025 Assessment & Plan (1) Nephrolithiasis: (2) Ureteral stent present: (3) Nonverbal: (4) Complicated UTI (urinary tract infection): (5) Severe intellectual disability: (6) Fatty (change of) liver, not elsewhere classified: (7) Tremor, unspecified: Plan 59 yo female with pmhx of severe intellectual disability c/b epilepsy, nonverbal status, fecal/urinary incontinence, s/p recent urethral stent placement, fatty liver disease, GERD, OCD, IAN, who presents for a fall from the [facility]. #Fall #Epilepsy Breakthrough seizures -unclear cause of fall from bed, likely mechanical in nature -per caregiver patient currently at baseline, concern is that UTI cause fall and they do not want her to become septic -lower on differential includes stroke (patient at baseline), arrythmia (unlikely to cause fall from bed), seizures (does have epilepsy so possible) Plan: -gentle hydration -neurology consult, appreciate recs for consideration of seizure and polypharmacy -decreased dose of perphenazine 04/11 while being transported from bed to wheelchair for discharge by staff from the ER, patient noted to have some shaking of the arms and followed by fixed gaze to the right for about 20 seconds Afterwards, patient noted to be back to her baseline Stat CT head ordered: no acute process Stat Labs ordered: Potassium 3.2, phosphorus 2.4, magnesium 1.9 Potassium and phosphorus supplements ordered around 5 PM, patient had a recurrence of the episode Lasted longer for about 10 more seconds Code purple called Seen resting in bed, awake and alert , not in distress blood pressure elevated but not hypoxic clear breath sounds bilaterally, tachycardic Stat dose Ativan 1 mg IM given 2 L of O2 nasal cannula started Assessment and plan Breakthrough seizures Patient missed doses of Lamictal and Keppra over the weekend Discussed with neurologist Dr. Alberto Choi Recommend loading dose of Keppra 2000 mg IV, continue usual Keppra dose tonight. If patient refuses, give in IV form Recommend additional Lamictal to 50 mg p.o. now, continue usual Lamictal dose tonight EEG IV potassium, magnesium, phosphorus ordered D5 NS as ordered 04/12 No seizure-like activity overnight Electrolytes better usual Keppra 1500 mg p.o. twice daily converted to IV for now for better adherence continue Lamictal, and other usual meds 04/22 No recurrence of breakthrough seizures Continue usual antiseizure medications, please ensure consistent medication intake daily Continue to monitor electrolytes including potassium, magnesium, phosphorus closely Outpatient follow-up with neurologist 04/23 discharge canceled yesterday as the staff from the [facility] reports patient is very weak and recommend acute rehab/SNF evaluation No recurrence of breakthrough seizures Continue medications case consultant to look into rehab/SNF #Severe Bacteriuria #Ureteral Stent -unclear if patient has symptoms, hemodynamically stable at this time, no sepsis criteria -UA appears to be significantly infected in setting of chronic colonization Plan: -urology consult, appreciate recs -follow up outpatient -ID consult, appreciate recs 04/10: Urine culture: (+) Proteus deescalated Cefepime to Ceftriaxone continued on ceftriaxone IV while admitted 04/14 status post left stent removal, Right ureteroscopy, laser lithotripsy, stone basket extraction, stent placement 04/14 Discussed this AM w/ ID - will give her 800 IV fluconazole today given her last ucultx growing [place] as she is going for invasive procedure to prevent candidemia 04/18 Discussed w/ urology that they plan to remove stent - CT abdomen ordered 1. New right ureteral stent in good position. Inflammation about the mid stent. Correlate with urinalysis for pyelitis. No hydronephrosis. 2. Stable size and interval liquefaction of left perinephric hematoma. 3. Bilateral nonobstructing kidney stones. Them pression colonic ileus. 4. Distended gallbladder contains hyperdense material likely reflects vicarious excretion as no stones seen on the prior studies. 04/21: Status post removal of right ureteral stent 04/22 cleared for discharge by urology service, outpatient follow up There is a new heterogeneous area of hypodensity in the periphery of the right lobe of the liver measuring 2.4 x 1.7 x 2.2 cm. -Further work up, management, and ff up as outpatient #Episode of Vomiting KUB: no obstruction, minimal fecal load clear breath sounds BL resume diet, always with assistance vomiting from UTI? Cefepime? continue supportive care, monitor closely -- resolved #Lateral T Wave Inversions -new from 2016 -unclear if any symptoms troponin 10.9--> 15.2--> 11.1 echo: left ventricular wall motion is normal left ventricular systolic function is normal left ventricular ejection fraction = 55-60% right ventricle is normal in size and function severe focal calcification of the posterior mitral valve annulus mild prolapse of the posteriors mitral valve leaflet mild mitral regurgitation grade 1 diastolic dysfunction compared to the report of previous study 12/18/2024, severe mitral annular calcification also noted at that time Mild mitral regurgitaion now noted #Severe Intellectual Disability #OCD #IAN -continue home meds austedo xr, perphenazine (decreased dose-3 mg at bedtime, 1 mg in the morning), seroquel, zoloft -continue miralax, bisacodyl suppository prn for constipation, -mouth care ordered -continue keppra and lamictal Disposition pending Admission and Anticipated Discharge Date Admission Date: April 05, 2025 Subjective seen resting in bed, awake and alert, not in distress, comfortable No signs of pain, respiratory distress Review of Systems Review of Systems: all noted and negative except for above Physical Exam Physical Exam: General- awake, non verbal, not in distress,breathing with no effort or accessory muscle use Eyes- anicteric Neck- no JVD Lungs- clear breath sounds bilaterally, no crackles/wheezing Heart- normal rate, regular rhythm; no murmurs Abdomen- normal bowel sounds, nondistended, soft, no tenderness Extremities- no pretibial edema, no calf tenderness Neuro- alert, no gross focal neurologic deficits Skin- warm & dry Results & Data Results & Data Vital Signs (Past 12 Hours) Vital Signs Temp Pulse Pulse Resp BP BP Pulse Ox 04/23/25 16:38 36.7 C 77 18 132/58 L 95 04/23/25 13:00 83 04/23/25 12:07 36.7 C 69 18 114/70 93 04/23/25 07:50 36.6 C 68 18 134/58 L 94 O2 Del Method 04/23/25 16:38 Room Air 04/23/25 13:00 04/23/25 12:07 Room Air 04/23/25 07:50 Room Air all noted and reviewed including below
--- NOTE | 2025-04-24 15:11 | Hospitalist Progress Note ---
Date of Service April 24, 2025 Assessment & Plan (1) Nephrolithiasis: (2) Ureteral stent present: (3) Nonverbal: (4) Complicated UTI (urinary tract infection): (5) Severe intellectual disability: (6) Fatty (change of) liver, not elsewhere classified: (7) Tremor, unspecified: Plan 59 yo female with pmhx of severe intellectual disability c/b epilepsy, nonverbal status, fecal/urinary incontinence, s/p recent urethral stent placement, fatty liver disease, GERD, OCD, IAN, who presents for a fall from the [facility]. #Fall #Epilepsy Breakthrough seizures -unclear cause of fall from bed, likely mechanical in nature -per caregiver patient currently at baseline, concern is that UTI cause fall and they do not want her to become septic -lower on differential includes stroke (patient at baseline), arrythmia (unlikely to cause fall from bed), seizures (does have epilepsy so possible) Plan: -gentle hydration -neurology consult, appreciate recs for consideration of seizure and polypharmacy -decreased dose of perphenazine 04/11 while being transported from bed to wheelchair for discharge by staff from the ER, patient noted to have some shaking of the arms and followed by fixed gaze to the right for about 20 seconds Afterwards, patient noted to be back to her baseline Stat CT head ordered: no acute process Stat Labs ordered: Potassium 3.2, phosphorus 2.4, magnesium 1.9 Potassium and phosphorus supplements ordered around 5 PM, patient had a recurrence of the episode Lasted longer for about 10 more seconds Code purple called Seen resting in bed, awake and alert , not in distress blood pressure elevated but not hypoxic clear breath sounds bilaterally, tachycardic Stat dose Ativan 1 mg IM given 2 L of O2 nasal cannula started Assessment and plan Breakthrough seizures Patient missed doses of Lamictal and Keppra over the weekend Discussed with neurologist Dr. Alberto Choi Recommend loading dose of Keppra 2000 mg IV, continue usual Keppra dose tonight. If patient refuses, give in IV form Recommend additional Lamictal to 50 mg p.o. now, continue usual Lamictal dose tonight EEG IV potassium, magnesium, phosphorus ordered D5 NS as ordered 04/12 No seizure-like activity overnight Electrolytes better usual Keppra 1500 mg p.o. twice daily converted to IV for now for better adherence continue Lamictal, and other usual meds 04/22 No recurrence of breakthrough seizures Continue usual antiseizure medications, please ensure consistent medication intake daily Continue to monitor electrolytes including potassium, magnesium, phosphorus closely Outpatient follow-up with neurologist 04/23 discharge canceled yesterday as the staff from the [facility] reports patient is very weak and recommend acute rehab/SNF evaluation No recurrence of breakthrough seizures Continue medications case manager specialist to look into rehab/SNF 04/24 no new issues Rehab/SNF placement #Severe Bacteriuria #Ureteral Stent -unclear if patient has symptoms, hemodynamically stable at this time, no sepsis criteria -UA appears to be significantly infected in setting of chronic colonization Plan: -urology consult, appreciate recs -follow up outpatient -ID consult, appreciate recs 04/10: Urine culture: (+) Proteus deescalated Cefepime to Ceftriaxone continued on ceftriaxone IV while admitted 04/14 status post left stent removal, Right ureteroscopy, laser lithotripsy, stone basket extraction, stent placement 04/14 Discussed this AM w/ ID - will give her 800 IV fluconazole today given her last ucultx growing [place] as she is going for invasive procedure to prevent candidemia 04/18 Discussed w/ urology that they plan to remove stent - CT abdomen ordered 1. New right ureteral stent in good position. Inflammation about the mid stent. Correlate with urinalysis for pyelitis. No hydronephrosis. 2. Stable size and interval liquefaction of left perinephric hematoma. 3. Bilateral nonobstructing kidney stones. Them pression colonic ileus. 4. Distended gallbladder contains hyperdense material likely reflects vicarious excretion as no stones seen on the prior studies. 04/21: Status post removal of right ureteral stent 04/22 cleared for discharge by urology service, outpatient follow up There is a new heterogeneous area of hypodensity in the periphery of the right lobe of the liver measuring 2.4 x 1.7 x 2.2 cm. -Further work up, management, and ff up as outpatient #Episode of Vomiting KUB: no obstruction, minimal fecal load clear breath sounds BL resume diet, always with assistance vomiting from UTI? Cefepime? continue supportive care, monitor closely -- resolved #Lateral T Wave Inversions -new from 2016 -unclear if any symptoms troponin 10.9--> 15.2--> 11.1 echo: left ventricular wall motion is normal left ventricular systolic function is normal left ventricular ejection fraction = 55-60% right ventricle is normal in size and function severe focal calcification of the posterior mitral valve annulus mild prolapse of the posteriors mitral valve leaflet mild mitral regurgitation grade 1 diastolic dysfunction compared to the report of previous study 12/18/2024, severe mitral annular calcification also noted at that time Mild mitral regurgitaion now noted #Severe Intellectual Disability #OCD #IAN -continue home meds austedo xr, perphenazine (decreased dose-3 mg at bedtime, 1 mg in the morning), seroquel, zoloft -continue miralax, bisacodyl suppository prn for constipation, -mouth care ordered -continue keppra and lamictal Disposition pending Admission and Anticipated Discharge Date Admission Date: April 05, 2025 Subjective seen resting in bed, comfortable no signs of distress, pain No other new issues Review of Systems Review of Systems: all noted and negative except for above Physical Exam Physical Exam: General- not in distress, no effort or accessory muscle use Eyes- anicteric Neck- no JVD Lungs- clear breath sounds bilaterally, no rales/wheezes Heart- normal rate, regular rhythm; no murmurs Abdomen- normal bowel sounds, nondistended, soft, no tenderness Extremities- no pretibial edema, no calf tenderness Neuro- alert; no gross focal neurologic deficits Skin- warm & dry Results & Data Results & Data Vital Signs (Past 12 Hours) Vital Signs Temp Pulse Pulse Resp BP BP Pulse Ox 04/24/25 13:02 60 04/24/25 11:40 37.1 C 70 16 141/64 H 94 04/24/25 08:09 36.9 C 66 18 153/70 H 92 04/24/25 05:00 69 O2 Del Method 04/24/25 13:02 04/24/25 11:40 Room Air 04/24/25 08:09 Room Air 04/24/25 05:00 all noted and reviewed including below
--- NOTE | 2025-04-25 10:22 | Hospitalist Progress Note ---
Date of Service April 25, 2025 Assessment & Plan (1) Nephrolithiasis: (2) Ureteral stent present: (3) Nonverbal: (4) Complicated UTI (urinary tract infection): (5) Severe intellectual disability: (6) Fatty (change of) liver, not elsewhere classified: (7) Tremor, unspecified: Plan 59 yo female with pmhx of severe intellectual disability c/b epilepsy, nonverbal status, fecal/urinary incontinence, s/p recent urethral stent placement, fatty liver disease, GERD, OCD, IAN, who presents for a fall from the [facility]. #Fall #Epilepsy Breakthrough seizures -unclear cause of fall from bed, likely mechanical in nature -per caregiver patient currently at baseline, concern is that UTI cause fall and they do not want her to become septic -lower on differential includes stroke (patient at baseline), arrythmia (unlikely to cause fall from bed), seizures (does have epilepsy so possible) Plan: -gentle hydration -neurology consult, appreciate recs for consideration of seizure and polypharmacy -decreased dose of perphenazine 04/11 while being transported from bed to wheelchair for discharge by staff from the ER, patient noted to have some shaking of the arms and followed by fixed gaze to the right for about 20 seconds Afterwards, patient noted to be back to her baseline Stat CT head ordered: no acute process Stat Labs ordered: Potassium 3.2, phosphorus 2.4, magnesium 1.9 Potassium and phosphorus supplements ordered around 5 PM, patient had a recurrence of the episode Lasted longer for about 10 more seconds Code purple called Seen resting in bed, awake and alert , not in distress blood pressure elevated but not hypoxic clear breath sounds bilaterally, tachycardic Stat dose Ativan 1 mg IM given 2 L of O2 nasal cannula started Assessment and plan Breakthrough seizures Patient missed doses of Lamictal and Keppra over the weekend Discussed with neurologist Dr. Alberto Choi Recommend loading dose of Keppra 2000 mg IV, continue usual Keppra dose tonight. If patient refuses, give in IV form Recommend additional Lamictal to 50 mg p.o. now, continue usual Lamictal dose tonight EEG IV potassium, magnesium, phosphorus ordered D5 NS as ordered 04/12 No seizure-like activity overnight Electrolytes better usual Keppra 1500 mg p.o. twice daily converted to IV for now for better adherence continue Lamictal, and other usual meds 04/22 No recurrence of breakthrough seizures Continue usual antiseizure medications, please ensure consistent medication intake daily Continue to monitor electrolytes including potassium, magnesium, phosphorus closely Outpatient follow-up with neurologist 04/23 discharge canceled yesterday as the staff from the [facility] reports patient is very weak and recommend acute rehab/SNF evaluation No recurrence of breakthrough seizures Continue medications adult protective caseworker to look into rehab/SNF 04/24 no new issues Rehab/SNF placement 04/25 No new symptoms or issues Awaiting rehab/prison facility placement #Severe Bacteriuria #Ureteral Stent -unclear if patient has symptoms, hemodynamically stable at this time, no sepsis criteria -UA appears to be significantly infected in setting of chronic colonization Plan: -urology consult, appreciate recs -follow up outpatient -ID consult, appreciate recs 04/10: Urine culture: (+) Proteus deescalated Cefepime to Ceftriaxone continued on ceftriaxone IV while admitted 04/14 status post left stent removal, Right ureteroscopy, laser lithotripsy, stone basket extraction, stent placement 04/14 Discussed this AM w/ ID - will give her 800 IV fluconazole today given her last ucultx growing [place] as she is going for invasive procedure to prevent candidemia 04/18 Discussed w/ urology that they plan to remove stent - CT abdomen ordered 1. New right ureteral stent in good position. Inflammation about the mid stent. Correlate with urinalysis for pyelitis. No hydronephrosis. 2. Stable size and interval liquefaction of left perinephric hematoma. 3. Bilateral nonobstructing kidney stones. Them pression colonic ileus. 4. Distended gallbladder contains hyperdense material likely reflects vicarious excretion as no stones seen on the prior studies. 04/21: Status post removal of right ureteral stent 04/22 cleared for discharge by urology service, outpatient follow up 04/25 no urinary issues noted so far, afebrile There is a new heterogeneous area of hypodensity in the periphery of the right lobe of the liver measuring 2.4 x 1.7 x 2.2 cm. -Further work up, management, and ff up as outpatient #Episode of Vomiting KUB: no obstruction, minimal fecal load clear breath sounds BL resume diet, always with assistance vomiting from UTI? Cefepime? continue supportive care, monitor closely -- resolved #Lateral T Wave Inversions -new from 2017 -unclear if any symptoms troponin 10.9--> 15.2--> 11.1 echo: left ventricular wall motion is normal left ventricular systolic function is normal left ventricular ejection fraction = 55-60% right ventricle is normal in size and function severe focal calcification of the posterior mitral valve annulus mild prolapse of the posteriors mitral valve leaflet mild mitral regurgitation grade 1 diastolic dysfunction compared to the report of previous study 12/18/2024, severe mitral annular calcification also noted at that time Mild mitral regurgitaion now noted #Severe Intellectual Disability #OCD #IAN -continue home meds austedo xr, perphenazine (decreased dose-3 mg at bedtime, 1 mg in the morning), seroquel, zoloft -continue miralax, bisacodyl suppository prn for constipation, -mouth care ordered -continue keppra and lamictal Disposition pending Admission and Anticipated Discharge Date Admission Date: April 05, 2025 Subjective Seen resting in bed, awake but easily awakened Comfortable, not in distress, nonverbal Discussed with RN at the bedside Patient was able to take all of her medications last night No acute episodes or issues overnight Review of Systems Review of Systems: all noted and negative except for above Results & Data Results & Data Vital Signs (Past 12 Hours) Vital Signs Temp Pulse Pulse Resp BP BP Pulse Ox 04/25/25 07:38 04/25/25 07:36 37.4 C 64 20 102/62 93 04/25/25 05:18 60 04/25/25 03:24 37.2 C 66 16 95/54 L 95 04/24/25 22:30 36.2 C L 72 18 136/60 95 O2 Del Method 04/25/25 07:38 Room Air 04/25/25 07:36 Room Air 04/25/25 05:18 04/25/25 03:24 Room Air 04/24/25 22:30 Room Air all noted and reviewed including below
[2025-04-25] MEDS: ONDANSETRON INJ 2 MG/ML 2 ML VIAL IV PRN (11:25)
--- NOTE | 2025-04-26 12:15 | Hospitalist Progress Note ---
Date of Service April 26, 2025 Assessment & Plan (1) Nephrolithiasis: (2) Ureteral stent present: (3) Nonverbal: (4) Complicated UTI (urinary tract infection): (5) Severe intellectual disability: (6) Fatty (change of) liver, not elsewhere classified: (7) Tremor, unspecified: Plan 59 yo female with pmhx of severe intellectual disability c/b epilepsy, nonverbal status, fecal/urinary incontinence, s/p recent urethral stent placement, fatty liver disease, GERD, OCD, IAN, who presents for a fall from the [facility]. #Fall #Epilepsy Breakthrough seizures -unclear cause of fall from bed, likely mechanical in nature -per caregiver patient currently at baseline, concern is that UTI cause fall and they do not want her to become septic -lower on differential includes stroke (patient at baseline), arrythmia (unlikely to cause fall from bed), seizures (does have epilepsy so possible) Plan: -gentle hydration -neurology consult, appreciate recs for consideration of seizure and polypharmacy -decreased dose of perphenazine 04/11 while being transported from bed to wheelchair for discharge by staff from the ER, patient noted to have some shaking of the arms and followed by fixed gaze to the right for about 20 seconds Afterwards, patient noted to be back to her baseline Stat CT head ordered: no acute process Stat Labs ordered: Potassium 3.2, phosphorus 2.4, magnesium 1.9 Potassium and phosphorus supplements ordered around 5 PM, patient had a recurrence of the episode Lasted longer for about 10 more seconds Code purple called Seen resting in bed, awake and alert , not in distress blood pressure elevated but not hypoxic clear breath sounds bilaterally, tachycardic Stat dose Ativan 1 mg IM given 2 L of O2 nasal cannula started Assessment and plan Breakthrough seizures Patient missed doses of Lamictal and Keppra over the weekend Discussed with neurologist Dr. Alberto Choi Recommend loading dose of Keppra 2000 mg IV, continue usual Keppra dose tonight. If patient refuses, give in IV form Recommend additional Lamictal to 50 mg p.o. now, continue usual Lamictal dose tonight EEG IV potassium, magnesium, phosphorus ordered D5 NS as ordered 04/12 No seizure-like activity overnight Electrolytes better usual Keppra 1500 mg p.o. twice daily converted to IV for now for better adherence continue Lamictal, and other usual meds 04/22 No recurrence of breakthrough seizures Continue usual antiseizure medications, please ensure consistent medication intake daily Continue to monitor electrolytes including potassium, magnesium, phosphorus closely Outpatient follow-up with neurologist 04/23 discharge canceled yesterday as the staff from the [facility] reports patient is very weak and recommend acute rehab/SNF evaluation No recurrence of breakthrough seizures Continue medications shelter case manager to look into rehab/SNF 04/24 no new issues Rehab/SNF placement 04/25 No new symptoms or issues Awaiting rehab/long-term facility placement 04/26 Stable overall Awaiting rehab/long-term facility placement #Severe Bacteriuria #Ureteral Stent -unclear if patient has symptoms, hemodynamically stable at this time, no sepsis criteria -UA appears to be significantly infected in setting of chronic colonization Plan: -urology consult, appreciate recs -follow up outpatient -ID consult, appreciate recs 04/10: Urine culture: (+) Proteus deescalated Cefepime to Ceftriaxone continued on ceftriaxone IV while admitted 04/14 status post left stent removal, Right ureteroscopy, laser lithotripsy, stone basket extraction, stent placement 04/14 Discussed this AM w/ ID - will give her 800 IV fluconazole today given her last ucultx growing [place] as she is going for invasive procedure to prevent candidemia 04/18 Discussed w/ urology that they plan to remove stent - CT abdomen ordered 1. New right ureteral stent in good position. Inflammation about the mid stent. Correlate with urinalysis for pyelitis. No hydronephrosis. 2. Stable size and interval liquefaction of left perinephric hematoma. 3. Bilateral nonobstructing kidney stones. Them pression colonic ileus. 4. Distended gallbladder contains hyperdense material likely reflects vicarious excretion as no stones seen on the prior studies. 04/21: Status post removal of right ureteral stent 04/22 cleared for discharge by urology service, outpatient follow up 04/25 no urinary issues noted so far, afebrile There is a new heterogeneous area of hypodensity in the periphery of the right lobe of the liver measuring 2.4 x 1.7 x 2.2 cm. -Further work up, management, and ff up as outpatient #Episode of Vomiting KUB: no obstruction, minimal fecal load clear breath sounds BL resume diet, always with assistance vomiting from UTI? Cefepime? continue supportive care, monitor closely -- resolved #Lateral T Wave Inversions -new from 2017 -unclear if any symptoms troponin 10.9--> 15.2--> 11.1 echo: left ventricular wall motion is normal left ventricular systolic function is normal left ventricular ejection fraction = 55-60% right ventricle is normal in size and function severe focal calcification of the posterior mitral valve annulus mild prolapse of the posteriors mitral valve leaflet mild mitral regurgitation grade 1 diastolic dysfunction compared to the report of previous study 12/18/2024, severe mitral annular calcification also noted at that time Mild mitral regurgitaion now noted #Severe Intellectual Disability #OCD #IAN -continue home meds austedo xr, perphenazine (decreased dose-3 mg at bedtime, 1 mg in the morning), seroquel, zoloft -continue miralax, bisacodyl suppository prn for constipation, -mouth care ordered -continue keppra and lamictal Disposition pending Admission and Anticipated Discharge Date Admission Date: April 05, 2025 Subjective Seen resting in bed, awake and alert, not in distress Mitts still on both hands No signs of pain, or respiratory distress Took medications this morning Review of Systems Review of Systems: all noted and negative except for above Physical Exam Physical Exam: General- awake, alert, not in distress, Breathing with no effort 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 Eyes- anicteric Neck- no JVD Lungs- clear breath sounds bilaterally, no rales/wheezes Heart- normal rate, regular rhythm; no murmurs Abdomen- normal bowel sounds, nondistended, soft, no tenderness Extremities- no pretibial edema, no calf tenderness Neuro- alert; no new gross focal neurologic deficits Skin- warm & dry Results & Data Results & Data Vital Signs (Past 12 Hours) Vital Signs Temp Pulse Pulse Resp BP Pulse Ox O2 Del Method 04/26/25 12:08 36.4 C L 71 16 116/65 93 Room Air 04/26/25 07:40 36.9 C 75 16 118/64 93 Room Air 04/26/25 05:42 73 04/26/25 02:24 36.5 C 69 18 147/72 H 91 Room Air all noted and reviewed including below
[2025-04-27 11:04] LABS: Anion Gap 5.0 (3-11); Blood Urea Nitrogen 11.0 mg/dl (6-23); Calcium 8.2 mg/dl (8.6-10.3); Carbon Dioxide 29.0 mmol/L (21-32); Chloride 105.0 mmol/L (98-107); Creatinine Clr Calc Pharmacy 59.2 ml/min; Glucose 112.0 mg/dl (70-99(Fasting)); Magnesium 1.9 mg/dl (1.7-2.4); Potassium 4.2 mmol/L (3.5-5.1); Sodium 139.0 mmol/L (136-145)
--- NOTE | 2025-04-27 15:23 | Hospitalist Progress Note ---
Date of Service April 27, 2025 Assessment & Plan (1) Nephrolithiasis: (2) Ureteral stent present: (3) Nonverbal: (4) Complicated UTI (urinary tract infection): (5) Severe intellectual disability: (6) Fatty (change of) liver, not elsewhere classified: (7) Tremor, unspecified: Plan 59 yo female with pmhx of severe intellectual disability c/b epilepsy, nonverbal status, fecal/urinary incontinence, s/p recent urethral stent placement, fatty liver disease, GERD, OCD, IAN, who presents for a fall from the [facility]. #Fall #Epilepsy Breakthrough seizures -unclear cause of fall from bed, likely mechanical in nature -per caregiver patient currently at baseline, concern is that UTI cause fall and they do not want her to become septic -lower on differential includes stroke (patient at baseline), arrythmia (unlikely to cause fall from bed), seizures (does have epilepsy so possible) Plan: -gentle hydration -neurology consult, appreciate recs for consideration of seizure and polypharmacy -decreased dose of perphenazine 04/11 while being transported from bed to wheelchair for discharge by staff from the ER, patient noted to have some shaking of the arms and followed by fixed gaze to the right for about 20 seconds Afterwards, patient noted to be back to her baseline Stat CT head ordered: no acute process Stat Labs ordered: Potassium 3.2, phosphorus 2.4, magnesium 1.9 Potassium and phosphorus supplements ordered around 5 PM, patient had a recurrence of the episode Lasted longer for about 10 more seconds Code purple called Seen resting in bed, awake and alert , not in distress blood pressure elevated but not hypoxic clear breath sounds bilaterally, tachycardic Stat dose Ativan 1 mg IM given 2 L of O2 nasal cannula started Assessment and plan Breakthrough seizures Patient missed doses of Lamictal and Keppra over the weekend Discussed with neurologist Dr. Alberto Choi Recommend loading dose of Keppra 2000 mg IV, continue usual Keppra dose tonight. If patient refuses, give in IV form Recommend additional Lamictal to 50 mg p.o. now, continue usual Lamictal dose tonight EEG IV potassium, magnesium, phosphorus ordered D5 NS as ordered 04/22 No recurrence of breakthrough seizures Continue usual antiseizure medications, please ensure consistent medication intake daily Continue to monitor electrolytes including potassium, magnesium, phosphorus closely Outpatient follow-up with neurologist 04/23 discharge canceled yesterday as the staff from the [facility] reports patient is very weak and recommend acute rehab/SNF evaluation No recurrence of breakthrough seizures 04/27 Stable overall Awaiting rehab/nursing home facility placement #Severe Bacteriuria #Ureteral Stent -unclear if patient has symptoms, hemodynamically stable at this time, no sepsis criteria -UA appears to be significantly infected in setting of chronic colonization Plan: -urology consult, appreciate recs -follow up outpatient -ID consult, appreciate recs 04/10: Urine culture: (+) Proteus deescalated Cefepime to Ceftriaxone continued on ceftriaxone IV while admitted 04/14 status post left stent removal, Right ureteroscopy, laser lithotripsy, stone basket extraction, stent placement 04/14 Discussed this AM w/ ID - will give her 800 IV fluconazole today given her last ucultx growing [place] as she is going for invasive procedure to prevent candidemia 04/18 Discussed w/ urology that they plan to remove stent - CT abdomen ordered 1. New right ureteral stent in good position. Inflammation about the mid stent. Correlate with urinalysis for pyelitis. No hydronephrosis. 2. Stable size and interval liquefaction of left perinephric hematoma. 3. Bilateral nonobstructing kidney stones. Them pression colonic ileus. 4. Distended gallbladder contains hyperdense material likely reflects vicarious excretion as no stones seen on the prior studies. 04/21: Status post removal of right ureteral stent 04/22 cleared for discharge by urology service, outpatient follow up 04/25 no urinary issues noted so far, afebrile #Abnormal CT Finding There is a new heterogeneous area of hypodensity in the periphery of the right lobe of the liver measuring 2.4 x 1.7 x 2.2 cm. -Further work up, management, and ff up as outpatient #Episode of Vomiting KUB: no obstruction, minimal fecal load clear breath sounds BL resume diet, always with assistance vomiting from UTI? Cefepime? continue supportive care, monitor closely -- resolved #Lateral T Wave Inversions -new from 2016 -unclear if any symptoms troponin 10.9--> 15.2--> 11.1 echo: left ventricular wall motion is normal left ventricular systolic function is normal left ventricular ejection fraction = 55-60% right ventricle is normal in size and function severe focal calcification of the posterior mitral valve annulus mild prolapse of the posteriors mitral valve leaflet mild mitral regurgitation grade 1 diastolic dysfunction compared to the report of previous study 12/18/2024, severe mitral annular calcification also noted at that time Mild mitral regurgitaion now noted #Severe Intellectual Disability #OCD #IAN -continue home meds austedo xr, perphenazine (decreased dose-3 mg at bedtime, 1 mg in the morning), seroquel, zoloft -continue miralax, bisacodyl suppository prn for constipation, -mouth care ordered -continue keppra and lamictal Disposition pending will need SNF Admission and Anticipated Discharge Date Admission Date: April 05, 2025 Subjective Seen resting in bed, comfortable, awake, alert Not in distress, no signs of pain or respiratory distress Discussed with RN Took medications this morning Had some breakfast No other new symptoms Review of Systems Review of Systems: all noted and negative except for above Physical Exam Physical Exam: General- nonverbal, not in distress, speaks in sentences with no effort or accessory muscle use Eyes- anicteric Neck- no JVD Lungs- clear breath sounds bilaterally, no crackles/wheezing Heart- normal rate, regular rhythm; no murmurs Abdomen- normal bowel sounds, nondistended, soft, no tenderness Extremities- no pretibial edema, no calf tenderness Neuro- alert, nonverbal; no gross focal neurologic deficits Skin- warm & dry Results & Data Results & Data Vital Signs (Past 12 Hours) Vital Signs Temp Pulse Pulse Resp BP Pulse Ox O2 Del Method 04/27/25 14:41 60 04/27/25 12:05 36.8 C 64 20 119/72 91 Room Air 04/27/25 08:31 36.8 C 62 20 120/70 96 Room Air 04/27/25 07:15 67 all noted and reviewed including below
[2025-04-28] MEDS: POTASSIUM CHLORIDE 10 MEQ TABCR PO SCH (11:04)
--- NOTE | 2025-04-28 17:18 | Hospitalist Progress Note ---
Date of Service April 28, 2025 Assessment & Plan (1) Nephrolithiasis: (2) Ureteral stent present: (3) Nonverbal: (4) Complicated UTI (urinary tract infection): (5) Severe intellectual disability: (6) Fatty (change of) liver, not elsewhere classified: (7) Tremor, unspecified: Plan 59 yo female with pmhx of severe intellectual disability c/b epilepsy, nonverbal status, fecal/urinary incontinence, s/p recent urethral stent placement, fatty liver disease, GERD, OCD, IAN, who presents for a fall from the [facility]. #Fall #Epilepsy #Breakthrough seizures -unclear cause of fall from bed, likely mechanical in nature -per caregiver patient currently at baseline, concern is that UTI cause fall and they do not want her to become septic -had breakthrough seizures on 04/11, cod monica called, discussed with neurology Plan: -gentle hydration -recs followed per neurology -neurology consult, appreciate recs for consideration of seizure and polypharmacy -decreased dose of perphenazine -Awaiting rehab/[facility] facility placement -awaiting [facility], office of aging assessment -psychiatric consult placed per need for placement #Severe Bacteriuria #Ureteral Stent -unclear if patient has symptoms, hemodynamically stable at this time, no sepsis criteria -UA appears to be significantly infected in setting of chronic colonization -s/p stent removal and placement this admission Plan: -urology consult, appreciate recs -follow up outpatient -ID consult, appreciate recs -given fluconazole -doing well, monitor #Abnormal CT Finding There is a new heterogeneous area of hypodensity in the periphery of the right lobe of the liver measuring 2.4 x 1.7 x 2.2 cm. -Further work up, management, and ff up as outpatient #Lateral T Wave Inversions -new from 2017 -echo with need for follow up outpatient #Severe Intellectual Disability #OCD #IAN -continue home meds austedo xr, perphenazine (decreased dose-3 mg at bedtime, 1 mg in the morning), seroquel, zoloft -continue miralax, bisacodyl suppository prn for constipation, -mouth care ordered -continue keppra and lamictal I spent a total of 50 minutes in direct patient care, including [id number] time with the patient and/or family, reviewing medical records, ordering and reviewing diagnostic tests, and coordinating care with other healthcare providers. This time includes: history taking, physical examination, medical decision making, counseling, ECG interpretation, imaging interpretation, lab interpretation, orders, and education, excluding time spent in the performance of separately billed services. Admission and Anticipated Discharge Date Admission Date: April 05, 2025 Subjective Patient seen and examined at bedside. Nonverbal at baseline. Discussed case with office of aging international account representative at bedside. Patient sleeping, appears comfortable Review of Systems Review of Systems: -unable to ask due to mental status Physical Exam Physical Exam: Gen: A&O 0 NAD HEENT: NCAT, EOMI, not icteric. External ears normal. No rhinorrhea. Dry mucous membranes. Neck: Supple, full range of motion, no observable masses, No meningeal sign. Lungs: No Respiratory distress. CV: RRR, no edema. Abdomen: Soft, nondistended, No rebound tenderness. MSK: No joint swelling, no redness. Skin: No rashes, petechiae, lesions. Neuro: chronic tremors bilaterally, baseline per caregiver Results & Data Results & Data Vital Signs (Past 12 Hours) Vital Signs Temp Pulse Pulse Resp BP BP Pulse Ox 04/28/25 15:39 39.9 C H 66 20 124/70 93 04/28/25 12:54 36.3 C L 68 18 115/67 88 L 04/28/25 08:00 36.3 C L 62 16 126/70 98 04/28/25 07:44 58 L O2 Del Method 04/28/25 15:39 Room Air 04/28/25 12:54 Room Air 04/28/25 08:00 Room Air 04/28/25 07:44 Medications Administered Amlodipine Besylate (Amlodipine Besylate 5 Mg Tab) 2.5 mg PO QAM [facility] Stop: 05/12/25 08:59 Last Admin: 04/21/25 10:07 Dose: 2.5 mg Documented By: Admin: 04/20/25 08:33 Dose: 2.5 mg Documented By: MTJamey Admin: 04/19/25 08:53 Dose: 2.5 mg Documented By: Admin: 04/18/25 08:23 Dose: 2.5 mg Documented By: Admin: 04/17/25 12:40 Dose: 2.5 mg Documented By: Admin: 04/16/25 08:37 Dose: 2.5 mg Documented By: Admin: 04/15/25 08:07 Dose: 2.5 mg Documented By: prem Admin: 04/14/25 16:56 Dose: 2.5 mg Documented By: prem Admin: 04/13/25 08:25 Dose: 2.5 mg Documented By: Admin: 04/12/25 10:16 Dose: 2.5 mg Documented By: ADRIANNE Calcium/Vitamin D (Calcium 600mg + Vit D 400 Iu Tab) 1 tab PO DAILY@1100 [facility] Stop: 05/06/25 08:59 Last Admin: 04/18/25 16:12 Dose: 1 tab Documented By: Admin: 04/17/25 16:13 Dose: 1 tab Documented By: MARY ANNE Admin: 04/16/25 11:58 Dose: 1 tab Documented By: Admin: 04/15/25 11:02 Dose: 1 tab Documented By: prem Admin: 04/14/25 16:56 Dose: 1 tab Documented By: prem Admin: 04/13/25 11:01 Dose: 1 tab Documented By: Admin: 04/12/25 12:25 Dose: 1 tab Documented By: ADRIANNE Chlorhexidine Gluconate (Chlorhexidine Gluconate 0.12% 480 Ml) 15 ml MT TID SWAP[facility] Stop: 05/05/25 17:14 Last Admin: 04/28/25 14:00 Dose: 15 ml Documented By: Admin: 04/28/25 10:57 Dose: 15 ml Documented By: Admin: 04/27/25 20:22 Dose: 15 ml Documented By: frandy Admin: 04/27/25 13:31 Dose: 15 ml Documented By: Admin: 04/27/25 09:13 Dose: 15 ml Documented By: Admin: 04/26/25 20:27 Dose: 15 ml Documented By: frandy Admin: 04/26/25 13:41 Dose: Not Given Documented By: foreign Admin: 04/26/25 08:42 Dose: 15 ml Documented By: adilenek Admin: 04/25/25 19:37 Dose: 15 ml Documented By: Admin: 04/25/25 14:14 Dose: Not Given Documented By: [employer] Admin: 04/25/25 07:26 Dose: 15 ml Documented By: [employer] Admin: 04/24/25 20:38 Dose: 15 ml Documented By: Admin: 04/24/25 12:03 Dose: Not Given Documented By: cjk Admin: 04/24/25 09:42 Dose: Not Given Documented By: cjk Admin: 04/23/25 20:23 Dose: 15 ml Documented By: Admin: 04/23/25 12:52 Dose: Not Given Documented By: cjk Admin: 04/23/25 09:29 Dose: Not Given Documented By: cjk Admin: 04/22/25 20:19 Dose: 15 ml Documented By: Admin: 04/22/25 14:38 Dose: Not Given Documented By: Admin: 04/22/25 08:58 Dose: 15 ml Documented By: Admin: 04/21/25 20:46 Dose: 15 ml Documented By: Admin: 04/21/25 13:17 Dose: 15 ml Documented By: Admin: 04/21/25 09:32 Dose: 15 ml Documented By: Admin: 04/20/25 20:15 Dose: 15 ml Documented By: Admin: 04/20/25 14:15 Dose: 15 ml Documented By: Admin: 04/20/25 08:35 Dose: 15 ml Documented By: Admin: 04/19/25 20:03 Dose: 15 ml Documented By: Admin: 04/19/25 14:28 Dose: 15 ml Documented By: Admin: 04/19/25 09:07 Dose: 15 ml Documented By: Admin: 04/18/25 21:05 Dose: 15 ml Documented By: Admin: 04/18/25 16:12 Dose: 15 ml Documented By: Admin: 04/18/25 08:26 Dose: 15 ml Documented By: Admin: 04/17/25 20:29 Dose: 15 ml Documented By: Admin: 04/17/25 16:13 Dose: 15 ml Documented By: Admin: 04/17/25 12:35 Dose: Not Given Documented By: Admin: 04/16/25 22:04 Dose: 15 ml Documented By: mcl Admin: 04/16/25 15:59 Dose: Not Given Documented By: Admin: 04/16/25 08:38 Dose: 15 ml Documented By: Admin: 04/15/25 22:06 Dose: 15 ml Documented By: Admin: 04/15/25 12:45 Dose: Not Given Documented By: prem Admin: 04/15/25 08:12 Dose: Not Given Documented By: prem Admin: 04/14/25 21:30 Dose: Not Given Documented By: Admin: 04/14/25 14:28 Dose: Not Given Documented By: prem Admin: 04/14/25 10:21 Dose: Not Given Documented By: prem Admin: 04/13/25 20:42 Dose: 15 ml Documented By: CIVIL [employer]PARED[employer] TRA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 Admin: 04/13/25 13:48 Dose: 15 ml Documented By: Admin: 04/13/25 08:25 Dose: 15 ml Documented By: Admin: 04/12/25 20:35 Dose: 15 ml Documented By: Admin: 04/12/25 15:24 Dose: 15 ml Documented By: Admin: 04/12/25 08:20 Dose: 15 ml Documented By: Admin: 04/11/25 20:39 Dose: Not Given Documented By: Admin: 04/11/25 13:09 Dose: Not Given Documented By: Admin: 04/11/25 08:17 Dose: Not Given Documented By: Admin: 04/10/25 21:40 Dose: Not Given Documented By: Admin: 04/10/25 14:49 Dose: Not Given Documented By: cjk Admin: 04/10/25 08:38 Dose: 15 ml Documented By: cjk Admin: 04/09/25 21:26 Dose: Not Given Documented By: Admin: 04/09/25 13:23 Dose: Not Given Documented By: LR Admin: 04/09/25 08:14 Dose: Not Given Documented By: LR Admin: 04/08/25 20:48 Dose: Not Given Documented By: Admin: 04/08/25 13:17 Dose: Not Given Documented By: Admin: 04/08/25 08:44 Dose: Not Given Documented By: Admin: 04/07/25 20:16 Dose: 15 ml Documented By: Admin: 04/07/25 13:30 Dose: Not Given Documented By: Admin: 04/07/25 09:07 Dose: Not Given Documented By: Admin: 04/06/25 20:14 Dose: 15 ml Documented By: Admin: 04/06/25 13:28 Dose: Not Given Documented By: Admin: 04/06/25 08:15 Dose: 15 ml Documented By: Admin: 04/05/25 21:04 Dose: 15 ml Documented By: Admin: 04/05/25 18:48 Dose: Not Given Documented By: RAFAL Clobazam (Clobazam 5 Mg Tab) 5 mg PO HS [facility] Stop: 05/05/25 20:59 Last Admin: 04/27/25 20:29 Dose: 5 mg Documented By: heb Admin: 04/26/25 20:27 Dose: 5 mg Documented By: [email or web address] Admin: 04/25/25 19:37 Dose: 5 mg Documented By: K Admin: 04/24/25 20:38 Dose: 5 mg Documented By: Admin: 04/23/25 20:23 Dose: 5 mg Documented By: Admin: 04/22/25 20:19 Dose: 5 mg Documented By: Admin: 04/21/25 20:46 Dose: 5 mg Documented By: Admin: 04/20/25 20:17 Dose: 5 mg Documented By: Admin: 04/19/25 20:03 Dose: 5 mg Documented By: Admin: 04/18/25 21:03 Dose: 5 mg Documented By: Admin: 04/17/25 21:51 Dose: 5 mg Documented By: Admin: 04/16/25 21:41 Dose: 5 mg Documented By: KAJakub Admin: 04/15/25 22:21 Dose: 5 mg Documented By: Admin: 04/14/25 21:23 Dose: 5 mg Documented By: Admin: 04/13/25 20:41 Dose: 5 mg Documented By: Admin: 04/12/25 20:35 Dose: 5 mg Documented By: Admin: 04/11/25 20:23 Dose: 5 mg Documented By: JAMandy Admin: 04/10/25 21:47 Dose: Not Given Documented By: Admin: 04/09/25 21:37 Dose: 5 mg Documented By: Admin: 04/08/25 21:29 Dose: 5 mg Documented By: Admin: 04/07/25 20:21 Dose: 5 mg Documented By: KMMandy Admin: 04/06/25 20:22 Dose: 5 mg Documented By: Admin: 04/05/25 21:27 Dose: 5 mg Documented By: JESSIE Hall (Austedo [Patient Own Med]) 1 each PO DAILY SWAP[facility] Stop: 05/06/25 08:59 Last Admin: 04/28/25 10:57 Dose: 1 each Documented By: MARY ANNE Admin: 04/27/25 08:58 Dose: 1 each Documented By: MARY ANNE Admin: 04/26/25 08:42 Dose: 1 each Documented By: foreign Admin: 04/25/25 07:27 Dose: 1 each Documented By: Admin: 04/24/25 09:42 Dose: Not Given Documented By: foreign Admin: 04/23/25 09:06 Dose: 1 each Documented By: foreign Admin: 04/22/25 08:58 Dose: 1 each Documented By: MTJamey Admin: 04/21/25 10:08 Dose: 1 each Documented By: MTJamey Admin: 04/20/25 08:35 Dose: 1 each Documented By: MTJamey Admin: 04/19/25 12:05 Dose: 1 each Documented By: Admin: 04/18/25 08:27 Dose: 1 each Documented By: Admin: 04/17/25 17:08 Dose: Not Given Documented By: MARY ANNE Admin: 04/16/25 08:38 Dose: 1 each Documented By: Admin: 04/15/25 08:06 Dose: 1 each Documented By: prem Admin: 04/14/25 17:15 Dose: 1 each Documented By: prem Admin: 04/13/25 08:25 Dose: 1 each Documented By: Admin: 04/12/25 09:10 Dose: 1 each Documented By: Admin: 04/11/25 08:19 Dose: Not Given Documented By: Admin: 04/10/25 08:38 Dose: 1 each Documented By: foreign Admin: 04/09/25 08:29 Dose: Not Given Documented By: LR Admin: 04/08/25 08:43 Dose: 1 each Documented By: Admin: 04/07/25 09:04 Dose: 1 each Documented By: Admin: 04/06/25 08:19 Dose: 1 each Documented By: RAFAL Famotidine (Famotidine 40 Mg Tablet) 40 mg PO DAILY SWAP[facility] Stop: 05/06/25 08:59 Last Admin: 04/28/25 10:56 Dose: 40 mg Documented By: Admin: 04/27/25 08:58 Dose: 40 mg Documented By: Admin: 04/26/25 08:42 Dose: 40 mg Documented By: cjk Admin: 04/25/25 07:20 Dose: 40 mg Documented By: [employer] Admin: 04/24/25 12:43 Dose: Not Given Documented By: cjk Admin: 04/23/25 09:05 Dose: 40 mg Documented By: adilenek Admin: 04/22/25 08:57 Dose: 40 mg Documented By: MTJamey Admin: 04/21/25 10:08 Dose: 40 mg Documented By: MTJamey Admin: 04/20/25 08:32 Dose: 40 mg Documented By: Admin: 04/19/25 08:55 Dose: 40 mg Documented By: Admin: 04/18/25 08:22 Dose: 40 mg Documented By: Admin: 04/17/25 12:41 Dose: 40 mg Documented By: Admin: 04/16/25 08:37 Dose: 40 mg Documented By: Admin: 04/15/25 08:10 Dose: 40 mg Documented By: prem Admin: 04/14/25 16:55 Dose: 40 mg Documented By: prem Admin: 04/13/25 08:25 Dose: 40 mg Documented By: Admin: 04/12/25 09:10 Dose: 40 mg Documented By: Admin: 04/11/25 08:19 Dose: Not Given Documented By: Admin: 04/10/25 08:38 Dose: 40 mg Documented By: foreign Admin: 04/09/25 08:29 Dose: Not Given Documented By: Admin: 04/08/25 08:43 Dose: 40 mg Documented By: Admin: 04/07/25 09:07 Dose: Not Given Documented By: Admin: 04/06/25 08:17 Dose: 40 mg Documented By: RAFAL Lactobacillus Acidophilus (Lactobacillus Acidophilus 1 Gm Pack) 1 packet PO TIDM SWAP[facility] Stop: 05/16/25 11:59 Last Admin: 04/28/25 14:00 Dose: 1 packet Documented By: Admin: 04/28/25 10:49 Dose: 1 packet Documented By: Admin: 04/27/25 17:17 Dose: 1 packet Documented By: Admin: 04/27/25 13:31 Dose: 1 packet Documented By: Admin: 04/27/25 08:56 Dose: 1 packet Documented By: Admin: 04/26/25 17:56 Dose: 1 packet Documented By: cjk Admin: 04/26/25 12:40 Dose: 1 packet Documented By: cjk Admin: 04/26/25 08:42 Dose: 1 packet Documented By: cjk Admin: 04/25/25 17:44 Dose: Not Given Documented By: [employer] Admin: 04/25/25 12:43 Dose: Not Given Documented By: [employer]ERSON [employer] Admin: 04/25/25 07:18 Dose: 1 packet Documented By: [employer] Admin: 04/24/25 16:51 Dose: 1 packet Documented By: cjk Admin: 04/24/25 13:17 Dose: Not Given Documented By: cjk Admin: 04/24/25 12:41 Dose: Not Given Documented By: cjk Admin: 04/23/25 17:37 Dose: 1 packet Documented By: cjk Admin: 04/23/25 13:03 Dose: 1 packet Documented By: cjk Admin: 04/23/25 09:04 Dose: 1 packet Documented By: cjk Admin: 04/22/25 17:40 Dose: 1 packet Documented By: Admin: 04/22/25 12:34 Dose: 1 packet Documented By: Admin: 04/22/25 08:56 Dose: 1 packet Documented By: Admin: 04/21/25 18:14 Dose: 1 packet Documented By: Admin: 04/21/25 13:17 Dose: 1 packet Documented By: Admin: 04/21/25 10:07 Dose: 1 packet Documented By: Admin: 04/20/25 17:47 Dose: 1 packet Documented By: Admin: 04/20/25 12:37 Dose: 1 packet Documented By: Admin: 04/20/25 08:32 Dose: 1 packet Documented By: Admin: 04/19/25 16:31 Dose: 1 packet Documented By: Admin: 04/19/25 11:04 Dose: Not Given Documented By: Admin: 04/19/25 08:56 Dose: 1 packet Documented By: Admin: 04/18/25 16:13 Dose: 1 packet Documented By: Admin: 04/18/25 12:45 Dose: 1 packet Documented By: Admin: 04/18/25 08:26 Dose: 1 packet Documented By: Admin: 04/17/25 17:09 Dose: 1 packet Documented By: Admin: 04/17/25 12:35 Dose: 1 packet Documented By: Admin: 04/17/25 12:35 Dose: Not Given Documented By: Admin: 04/16/25 16:28 Dose: 1 packet Documented By: Admin: 04/16/25 11:58 Dose: 1 packet Documented By: YUNIOR Lamotrigine (Lamotrigine 25 Mg Tab) 50 mg PO [facility]; Protocol Stop: 05/05/25 20:59 Last Admin: 04/28/25 10:50 Dose: 50 mg Documented By: Admin: 04/27/25 20:19 Dose: 50 mg Documented By: heb Admin: 04/27/25 08:59 Dose: 50 mg Documented By: Admin: 04/26/25 20:23 Dose: 50 mg Documented By: margaretteb Admin: 04/26/25 08:41 Dose: 50 mg Documented By: foreign Admin: 04/25/25 19:37 Dose: 50 mg Documented By: Admin: 04/25/25 07:25 Dose: 50 mg Documented By: Admin: 04/24/25 20:38 Dose: 50 mg Documented By: K Admin: 04/24/25 09:10 Dose: 50 mg Documented By: adilenek Admin: 04/23/25 20:23 Dose: 50 mg Documented By: Admin: 04/23/25 09:05 Dose: 50 mg Documented By: foreign Admin: 04/22/25 20:19 Dose: 50 mg Documented By: K Admin: 04/22/25 08:57 Dose: 50 mg Documented By: MTJamey Admin: 04/21/25 20:47 Dose: 50 mg Documented By: Admin: 04/21/25 10:07 Dose: 50 mg Documented By: Admin: 04/20/25 20:15 Dose: 50 mg Documented By: Admin: 04/20/25 08:33 Dose: 50 mg Documented By: Admin: 04/19/25 20:04 Dose: 50 mg Documented By: Admin: 04/19/25 08:54 Dose: 50 mg Documented By: Admin: 04/18/25 21:04 Dose: 50 mg Documented By: Admin: 04/18/25 08:23 Dose: 50 mg Documented By: Admin: 04/17/25 20:27 Dose: 50 mg Documented By: Admin: 04/17/25 12:41 Dose: 50 mg Documented By: Admin: 04/16/25 22:04 Dose: 50 mg Documented By: chin Admin: 04/16/25 08:35 Dose: 50 mg Documented By: Admin: 04/15/25 22:05 Dose: 25 mg Documented By: Admin: 04/15/25 08:07 Dose: 50 mg Documented By: prem Admin: 04/14/25 21:13 Dose: 50 mg Documented By: Admin: 04/14/25 16:55 Dose: 50 mg Documented By: prem Admin: 04/13/25 20:41 Dose: 50 mg Documented By: Admin: 04/13/25 08:25 Dose: 50 mg Documented By: Admin: 04/12/25 20:36 Dose: 50 mg Documented By: Admin: 04/12/25 09:10 Dose: 50 mg Documented By: Admin: 04/11/25 20:22 Dose: 50 mg Documented By: Admin: 04/11/25 08:11 Dose: 50 mg Documented By: Admin: 04/10/25 21:47 Dose: Not Given Documented By: Admin: 04/10/25 08:38 Dose: 50 mg Documented By: [employer] Admin: 04/09/25 21:37 Dose: 50 mg Documented By: Admin: 04/09/25 08:29 Dose: Not Given Documented By: LR Admin: 04/08/25 20:50 Dose: 50 mg Documented By: Admin: 04/08/25 08:43 Dose: 50 mg Documented By: Admin: 04/07/25 20:17 Dose: 50 mg Documented By: Admin: 04/07/25 09:03 Dose: 50 mg Documented By: Admin: 04/06/25 20:15 Dose: 50 mg Documented By: Admin: 04/06/25 08:16 Dose: 50 mg Documented By: Admin: 04/05/25 21:04 Dose: 50 mg Documented By: PNM Lamotrigine (Lamotrigine 100 Mg Tab) 200 mg PO [facility]; Protocol Stop: 05/05/25 20:59 Last Admin: 04/28/25 10:52 Dose: 200 mg Documented By: Admin: 04/27/25 20:22 Dose: 200 mg Documented By: heb Admin: 04/27/25 08:57 Dose: 200 mg Documented By: Admin: 04/26/25 20:24 Dose: 200 mg Documented By: heb Admin: 04/26/25 08:41 Dose: 200 mg Documented By: cjk Admin: 04/25/25 19:37 Dose: 200 mg Documented By: K Admin: 04/25/25 07:25 Dose: 200 mg Documented By: [employer] Admin: 04/24/25 20:38 Dose: 200 mg Documented By: Admin: 04/24/25 09:10 Dose: 200 mg Documented By: cjk Admin: 04/23/25 20:23 Dose: 200 mg Documented By: Admin: 04/23/25 09:04 Dose: 200 mg Documented By: cjk Admin: 04/22/25 20:19 Dose: 200 mg Documented By: Admin: 04/22/25 08:58 Dose: 200 mg Documented By: Admin: 04/21/25 20:47 Dose: 200 mg Documented By: Admin: 04/21/25 10:07 Dose: 200 mg Documented By: Admin: 04/20/25 20:15 Dose: 200 mg Documented By: Admin: 04/20/25 08:33 Dose: 200 mg Documented By: Admin: 04/19/25 20:04 Dose: 200 mg Documented By: Admin: 04/19/25 12:04 Dose: 200 mg Documented By: Admin: 04/18/25 21:04 Dose: 200 mg Documented By: Admin: 04/18/25 08:22 Dose: 200 mg Documented By: Admin: 04/17/25 20:27 Dose: 200 mg Documented By: Admin: 04/17/25 12:42 Dose: 200 mg Documented By: Admin: 04/16/25 21:58 Dose: 200 mg Documented By: mcl Admin: 04/16/25 08:37 Dose: 200 mg Documented By: Admin: 04/15/25 22:46 Dose: Not Given Documented By: Admin: 04/15/25 11:01 Dose: 200 mg Documented By: prem Admin: 04/14/25 21:13 Dose: 200 mg Documented By: Admin: 04/14/25 16:54 Dose: 200 mg Documented By: prem Admin: 04/13/25 20:41 Dose: 200 mg Documented By: Admin: 04/13/25 08:25 Dose: 200 mg Documented By: Admin: 04/12/25 20:36 Dose: 200 mg Documented By: Admin: 04/12/25 09:10 Dose: 200 mg Documented By: TLJamey Admin: 04/11/25 20:22 Dose: 200 mg Documented By: JAMandy Admin: 04/11/25 08:10 Dose: 200 mg Documented By: Admin: 04/10/25 21:47 Dose: Not Given Documented By: Admin: 04/10/25 08:37 Dose: 200 mg Documented By: cjk Admin: 04/09/25 21:37 Dose: 200 mg Documented By: Admin: 04/09/25 08:29 Dose: Not Given Documented By: LR Admin: 04/08/25 20:50 Dose: 200 mg Documented By: Admin: 04/08/25 08:43 Dose: 200 mg Documented By: Admin: 04/07/25 20:17 Dose: 200 mg Documented By: Admin: 04/07/25 09:02 Dose: 200 mg Documented By: Admin: 04/06/25 20:16 Dose: 200 mg Documented By: Admin: 04/06/25 08:16 Dose: 200 mg Documented By: Admin: 04/05/25 21:04 Dose: 200 mg Documented By: PNM Levetiracetam (Levetiracetam 500 Mg Tab) 1,500 mg PO BID SWAP[facility] Stop: 05/05/25 20:59 Last Admin: 04/28/25 11:01 Dose: 1,500 mg Documented By: Admin: 04/27/25 20:21 Dose: 1,500 mg Documented By: heb Admin: 04/27/25 08:56 Dose: 1,500 mg Documented By: Admin: 04/26/25 20:24 Dose: 1,500 mg Documented By: heb Admin: 04/26/25 08:41 Dose: 1,500 mg Documented By: adilenek Admin: 04/25/25 19:37 Dose: 1,500 mg Documented By: Admin: 04/25/25 07:19 Dose: 1,500 mg Documented By: Admin: 04/24/25 20:38 Dose: 1,500 mg Documented By: Admin: 04/24/25 09:08 Dose: 1,500 mg Documented By: adilenek Admin: 04/15/25 08:13 Dose: Not Given Documented By: prem Admin: 04/14/25 21:13 Dose: Not Given Documented By: Admin: 04/11/25 20:40 Dose: Not Given Documented By: Admin: 04/11/25 08:09 Dose: 1,500 mg Documented By: Admin: 04/10/25 21:47 Dose: Not Given Documented By: KSIhsan Admin: 04/10/25 08:36 Dose: 1,500 mg Documented By: foreign Admin: 04/09/25 21:36 Dose: 1,500 mg Documented By: Admin: 04/09/25 08:29 Dose: Not Given Documented By: LR Admin: 04/08/25 20:49 Dose: 1,500 mg Documented By: Admin: 04/08/25 08:43 Dose: 1,500 mg Documented By: Admin: 04/07/25 20:16 Dose: 1,500 mg Documented By: Admin: 04/07/25 09:01 Dose: 1,500 mg Documented By: Admin: 04/06/25 20:18 Dose: 1,500 mg Documented By: Admin: 04/06/25 08:15 Dose: 1,500 mg Documented By: Admin: 04/05/25 21:04 Dose: 1,500 mg Documented By: PNM Metoprolol Succinate (Metoprolol Succ 25mg Ext Rel Tab) [facility] Stop: 05/12/25 08:59 Last Admin: 04/28/25 11:02 Dose: 25 mg Documented By: MARY ANNE Admin: 04/27/25 08:56 Dose: 25 mg Documented By: MARY ANNE Admin: 04/26/25 08:42 Dose: 25 mg Documented By: foreign Admin: 04/25/25 07:20 Dose: 25 mg Documented By: Admin: 04/24/25 09:09 Dose: 25 mg Documented By: foreign Admin: 04/23/25 09:05 Dose: 25 mg Documented By: foreign Admin: 04/22/25 08:57 Dose: 25 mg Documented By: Admin: 04/21/25 10:07 Dose: 25 mg Documented By: Admin: 04/20/25 08:32 Dose: 25 mg Documented By: Admin: 04/19/25 08:55 Dose: 25 mg Documented By: Admin: 04/18/25 08:21 Dose: 25 mg Documented By: Admin: 04/17/25 12:43 Dose: 25 mg Documented By: MARY ANNE Admin: 04/16/25 08:39 Dose: 25 mg Documented By: Admin: 04/15/25 08:10 Dose: 25 mg Documented By: prem Admin: 04/14/25 16:56 Dose: 25 mg Documented By: prem Admin: 04/13/25 08:25 Dose: 25 mg Documented By: Admin: 04/12/25 09:10 Dose: 25 mg Documented By: ADRIANNE Ondansetron HCl (Ondansetron Inj 2 Mg/Ml 2 Ml Vial) 4 mg IV Q6H PRN PRN Reason: Nausea Stop: 05/05/25 16:42 Last Admin: 04/25/25 11:25 Dose: 4 mg Documented By: BRIAN Perphenazine (Perphenazine 2 Mg Tab) [facility] [place] Stop: 05/07/25 08:59 Last Admin: 04/28/25 11:02 Dose: 1 mg Documented By: MARY ANNE Admin: 04/27/25 08:58 Dose: 1 mg Documented By: MARY ANNE Admin: 04/26/25 08:41 Dose: 1 mg Documented By: foreign Admin: 04/25/25 07:22 Dose: 1 mg Documented By: [employer] Admin: 04/24/25 09:09 Dose: 1 mg Documented By: cjk Admin: 04/23/25 09:05 Dose: 1 mg Documented By: cjk Admin: 04/22/25 08:57 Dose: 1 mg Documented By: Admin: 04/21/25 10:08 Dose: 1 mg Documented By: Admin: 04/20/25 08:33 Dose: 1 mg Documented By: Admin: 04/19/25 08:54 Dose: 1 mg Documented By: Admin: 04/18/25 08:24 Dose: 1 mg Documented By: Admin: 04/17/25 12:43 Dose: 1 mg Documented By: MARY ANNE Admin: 04/16/25 08:36 Dose: 1 mg Documented By: Admin: 04/15/25 08:06 Dose: 1 mg Documented By: prem Admin: 04/14/25 17:16 Dose: Not Given Documented By: prem Admin: 04/13/25 08:25 Dose: 1 mg Documented By: Admin: 04/12/25 09:10 Dose: 1 mg Documented By: Admin: 04/11/25 08:19 Dose: Not Given Documented By: Admin: 04/10/25 08:37 Dose: 1 mg Documented By: foreign Admin: 04/09/25 08:29 Dose: Not Given Documented By: Admin: 04/08/25 08:43 Dose: 1 mg Documented By: Admin: 04/07/25 09:00 Dose: 1 mg Documented By: RAFAL Perphenazine (Perphenazine 2 Mg Tab) 3 mg PO HS SWAPNA Stop: 05/06/25 20:59 Last Admin: 04/27/25 20:19 Dose: 3 mg Documented By: frandy Admin: 04/26/25 20:25 Dose: 3 mg Documented By: frandy Admin: 04/25/25 19:38 Dose: 3 mg Documented By: Admin: 04/24/25 20:38 Dose: 3 mg Documented By: Admin: 04/23/25 20:24 Dose: 3 mg Documented By: Admin: 04/22/25 20:19 Dose: 3 mg Documented By: Admin: 04/21/25 20:47 Dose: 3 mg Documented By: Admin: 04/20/25 20:15 Dose: 3 mg Documented By: Admin: 04/19/25 20:04 Dose: 3 mg Documented By: Admin: 04/18/25 21:04 Dose: 3 mg Documented By: Admin: 04/17/25 20:25 Dose: 3 mg Documented By: Admin: 04/16/25 22:02 Dose: 3 mg Documented By: mcl Admin: 04/15/25 22:46 Dose: Not Given Documented By: Admin: 04/14/25 21:13 Dose: 3 mg Documented By: Admin: 04/13/25 20:42 Dose: 3 mg Documented By: 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 [employer]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 Admin: 04/12/25 20:37 Dose: 3 mg Documented By: Admin: 04/11/25 20:25 Dose: 3 mg Documented By: Admin: 04/10/25 21:47 Dose: Not Given Documented By: Admin: 04/09/25 21:37 Dose: 3 mg Documented By: Admin: 04/08/25 20:51 Dose: 3 mg Documented By: Admin: 04/07/25 20:19 Dose: 3 mg Documented By: Admin: 04/06/25 20:20 Dose: 3 mg Documented By: KML Polyethylene Glycol (Polyethylene (Miralax) 17 Gm Pack) 17 gm PO [facility] Stop: 05/06/25 08:59 Last Admin: 04/28/25 11:05 Dose: Not Given Documented By: Admin: 04/27/25 08:59 Dose: Not Given Documented By: Admin: 04/26/25 08:42 Dose: 17 gm Documented By: [email or web address] Admin: 04/25/25 07:30 Dose: 17 gm Documented By: [employer] Admin: 04/24/25 09:08 Dose: 17 gm Documented By: cjk Admin: 04/23/25 09:22 Dose: 17 gm Documented By: cjk Admin: 04/22/25 09:00 Dose: 17 gm Documented By: Admin: 04/21/25 10:08 Dose: Not Given Documented By: Admin: 04/20/25 08:36 Dose: Not Given Documented By: Admin: 04/19/25 09:12 Dose: 17 gm Documented By: Admin: 04/18/25 08:44 Dose: 17 gm Documented By: Admin: 04/17/25 12:38 Dose: 17 gm Documented By: Admin: 04/16/25 08:40 Dose: Not Given Documented By: Admin: 04/15/25 08:17 Dose: 17 gm Documented By: prem Admin: 04/14/25 14:17 Dose: Not Given Documented By: prem Admin: 04/13/25 08:25 Dose: Not Given Documented By: Admin: 04/12/25 09:10 Dose: 17 gm Documented By: Admin: 04/11/25 08:17 Dose: Not Given Documented By: Admin: 04/10/25 08:38 Dose: 17 gm Documented By: foreign Admin: 04/09/25 08:29 Dose: 17 gm Documented By: Admin: 04/08/25 08:44 Dose: 17 gm Documented By: Admin: 04/07/25 09:07 Dose: Not Given Documented By: Admin: 04/06/25 09:14 Dose: 17 gm Documented By: RAFAL Potassium Chloride (Potassium Chloride 10 Meq Tabcr) 20 meq PO DAILY [facility] Stop: 05/28/25 08:59 Last Admin: 04/28/25 11:04 Dose: 20 meq Documented By: ASA Quetiapine Fumarate (Quetiapine Fumarate 25 Mg Tablet) 50 mg PO QAM [facility] Stop: 05/06/25 08:59 Last Admin: 04/28/25 11:03 Dose: 50 mg Documented By: Admin: 04/27/25 08:57 Dose: 50 mg Documented By: Admin: 04/26/25 08:42 Dose: 50 mg Documented By: cjk Admin: 04/25/25 07:28 Dose: 50 mg Documented By: [employer] Admin: 04/24/25 09:10 Dose: 50 mg Documented By: cjk Admin: 04/23/25 09:05 Dose: 50 mg Documented By: cjk Admin: 04/22/25 08:57 Dose: 50 mg Documented By: Admin: 04/21/25 10:07 Dose: 50 mg Documented By: Admin: 04/20/25 08:33 Dose: 50 mg Documented By: Admin: 04/19/25 08:52 Dose: 50 mg Documented By: Admin: 04/18/25 08:22 Dose: 50 mg Documented By: Admin: 04/17/25 12:44 Dose: 50 mg Documented By: Admin: 04/16/25 08:39 Dose: 50 mg Documented By: Admin: 04/15/25 08:34 Dose: 50 mg Documented By: prem Admin: 04/14/25 16:53 Dose: 50 mg Documented By: prem Admin: 04/13/25 08:25 Dose: 50 mg Documented By: Admin: 04/12/25 09:10 Dose: 50 mg Documented By: Admin: 04/11/25 08:19 Dose: Not Given Documented By: Admin: 04/10/25 08:36 Dose: 50 mg Documented By: [email or web address] Admin: 04/09/25 08:29 Dose: Not Given Documented By: Admin: 04/08/25 08:43 Dose: 50 mg Documented By: Admin: 04/07/25 09:05 Dose: 50 mg Documented By: Admin: 04/06/25 08:17 Dose: 50 mg Documented By: RAFAL Quetiapine Fumarate (Quetiapine Fumarate 200 Mg Tab) 200 mg PO HS [facility] Stop: 05/05/25 20:59 Last Admin: 04/27/25 20:21 Dose: 200 mg Documented By: frandy Admin: 04/26/25 20:27 Dose: 200 mg Documented By: heb Admin: 04/25/25 19:39 Dose: 200 mg Documented By: K Admin: 04/24/25 20:38 Dose: 200 mg Documented By: K Admin: 04/23/25 20:23 Dose: 200 mg Documented By: Admin: 04/22/25 20:19 Dose: 200 mg Documented By: Admin: 04/21/25 20:48 Dose: 200 mg Documented By: Admin: 04/20/25 20:48 Dose: 200 mg Documented By: nuclear pharmacist: 04/19/25 20:05 Dose: 200 mg Documented By: Admin: 04/18/25 21:03 Dose: 200 mg Documented By: Admin: 04/17/25 20:25 Dose: 200 mg Documented By: Admin: 04/16/25 22:57 Dose: 200 mg Documented By: [email or web address] Admin: 04/15/25 22:04 Dose: 200 mg Documented By: Admin: 04/14/25 21:14 Dose: 200 mg Documented By: Admin: 04/13/25 22:04 Dose: 200 mg Documented By: Admin: 04/12/25 20:37 Dose: 200 mg Documented By: Admin: 04/11/25 20:26 Dose: 200 mg Documented By: Admin: 04/10/25 21:47 Dose: Not Given Documented By: Admin: 04/09/25 21:36 Dose: 200 mg Documented By: Admin: 04/08/25 20:49 Dose: 200 mg Documented By: Admin: 04/07/25 20:20 Dose: 200 mg Documented By: Admin: 04/06/25 20:20 Dose: 200 mg Documented By: Admin: 04/05/25 21:04 Dose: 200 mg Documented By: PNM Sertraline HCl (Sertraline Hcl 100 Mg Tablet) 100 mg PO QAM [facility] Stop: 05/06/25 08:59 Last Admin: 04/28/25 11:03 Dose: 100 mg Documented By: Admin: 04/27/25 08:57 Dose: 100 mg Documented By: Admin: 04/26/25 08:42 Dose: 100 mg Documented By: cjk Admin: 04/25/25 07:21 Dose: 100 mg Documented By: [employer] Admin: 04/24/25 09:09 Dose: 100 mg Documented By: cjk Admin: 04/23/25 09:05 Dose: 100 mg Documented By: cjk Admin: 04/22/25 08:58 Dose: 100 mg Documented By: Admin: 04/21/25 10:08 Dose: 100 mg Documented By: Admin: 04/20/25 08:33 Dose: 100 mg Documented By: Admin: 04/19/25 08:55 Dose: 100 mg Documented By: Admin: 04/18/25 08:26 Dose: 100 mg Documented By: Admin: 04/17/25 12:45 Dose: 100 mg Documented By: Admin: 04/16/25 08:40 Dose: 100 mg Documented By: Admin: 04/15/25 08:09 Dose: 100 mg Documented By: prem Admin: 04/14/25 17:17 Dose: 100 mg Documented By: prem Admin: 04/13/25 08:25 Dose: 100 mg Documented By: Admin: 04/12/25 09:10 Dose: 100 mg Documented By: [email or web address] Admin: 04/11/25 08:19 Dose: Not Given Documented By: Admin: 04/10/25 08:36 Dose: 100 mg Documented By: foreign Admin: 04/09/25 08:29 Dose: Not Given Documented By: Admin: 04/08/25 08:43 Dose: 100 mg Documented By: Admin: 04/07/25 09:04 Dose: 100 mg Documented By: Admin: 04/06/25 08:18 Dose: 100 mg Documented By: RAFAL
[2025-04-29 11:33] LABS: Hematocrit (blood only) 26.9 % (37.0-47.0); Hemoglobin 8.1 g/dl (12.0-16.0); Mean Corpuscular Hemoglobin 24.3 pg (25.0-34.0); Mean Corpuscular Volume 80.8 fL (80.0-100.0); Platelet Count 353 K/uL (130-400); RDW Standard Deviation 51.9 fL (36.4-46.3); Red Blood Count 3.33 M/uL (4.20-5.40); White Blood Count 5.76 K/ul (4.8-10.8)
[2025-04-29 11:49] LABS: Anion Gap 5.0 (3-11); Blood Urea Nitrogen 14.0 mg/dl (6-23); Calcium 8.4 mg/dl (8.6-10.3); Carbon Dioxide 31.0 mmol/L (21-32); Chloride 102.0 mmol/L (98-107); Creatinine Clr Calc Pharmacy 53.0 ml/min; Glucose 89.0 mg/dl (70-99(Fasting)); Potassium 3.9 mmol/L (3.5-5.1); Sodium 138.0 mmol/L (136-145)
--- NOTE | 2025-04-29 12:47 | Hospitalist Progress Note ---
Date of Service April 29, 2025 Assessment & Plan (1) Nephrolithiasis: (2) Ureteral stent present: (3) Nonverbal: (4) Complicated UTI (urinary tract infection): (5) Severe intellectual disability: (6) Fatty (change of) liver, not elsewhere classified: (7) Tremor, unspecified: Plan 59 yo female with pmhx of severe intellectual disability c/b epilepsy, nonverbal status, fecal/urinary incontinence, s/p recent urethral stent placement, fatty liver disease, GERD, OCD, IAN, who presents for a fall from the [facility]. #Fall #Epilepsy #Breakthrough seizures -unclear cause of fall from bed, likely mechanical in nature -per caregiver patient currently at baseline, concern is that UTI cause fall and they do not want her to become septic -had breakthrough seizures on 04/11, mayra anderson called, discussed with neurology Plan: -gentle hydration -recs followed per neurology -neurology consult, appreciate recs for consideration of seizure and polypharmacy -decreased dose of perphenazine -Awaiting rehab/penitentiary facility placement -awaiting [facility], office of aging assessment -psychiatric consult placed per need for placement, appreciate recs -medically stable for discharge at this time #Severe Bacteriuria #Ureteral Stent -unclear if patient has symptoms, hemodynamically stable at this time, no sepsis criteria -UA appears to be significantly infected in setting of chronic colonization -s/p stent removal and placement this admission Plan: -urology consult, appreciate recs -follow up outpatient -ID consult, appreciate recs -given fluconazole -doing well, monitor #Abnormal CT Finding There is a new heterogeneous area of hypodensity in the periphery of the right lobe of the liver measuring 2.4 x 1.7 x 2.2 cm. -Further work up, management, and ff up as outpatient #Lateral T Wave Inversions -new from 2017 -echo with need for follow up outpatient #Severe Intellectual Disability #OCD #IAN -continue home meds austedo xr, perphenazine (decreased dose-3 mg at bedtime, 1 mg in the morning), seroquel, zoloft -continue miralax, bisacodyl suppository prn for constipation, -mouth care ordered -continue keppra and lamictal I spent a total of 40 minutes in direct patient care, including [id number] time with the patient and/or family, reviewing medical records, ordering and reviewing diagnostic tests, and coordinating care with other healthcare providers. This time includes: history taking, physical examination, medical decision making, counseling, ECG interpretation, imaging interpretation, lab interpretation, orders, and education, excluding time spent in the performance of separately billed services. Admission and Anticipated Discharge Date Admission Date: April 05, 2025 Subjective Patient seen and examined at bedside. Pointed to juice cup and drank some juice with this provider this morning. Review of Systems Review of Systems: -unable to answer due to mental status Physical Exam Physical Exam: Gen: A&O 0 NAD HEENT: NCAT, EOMI, not icteric. External ears normal. No rhinorrhea. normal mucous membranes. Neck: Supple, full range of motion, no observable masses, No meningeal sign. Lungs: No Respiratory distress. CV: RRR, no edema. Abdomen: Soft, nondistended, No rebound tenderness. MSK: No joint swelling, no redness. Skin: No rashes, petechiae, lesions. Neuro: chronic tremors bilaterally, baseline per caregiver Results & Data Results & Data Vital Signs (Past 12 Hours) Vital Signs Temp Pulse Pulse Resp BP Pulse Ox O2 Del Method 04/29/25 11:40 36.2 C L 64 18 116/64 96 Room Air 04/29/25 07:53 36.7 C 60 18 115/68 99 Room Air 04/29/25 07:40 58 L 04/29/25 02:48 36.8 C 69 18 157/69 H 94 Room Air Laboratory Results -personally reviewed, Hgb around baseline, creatinine at baseline Medications Administered Amlodipine Besylate (Amlodipine Besylate 5 Mg Tab) 2.5 mg PO QAM [facility] Stop: 05/12/25 08:59 Last Admin: 04/21/25 10:07 Dose: 2.5 mg Documented By: MTJamey Admin: 04/20/25 08:33 Dose: 2.5 mg Documented By: MTJamey Admin: 04/19/25 08:53 Dose: 2.5 mg Documented By: Admin: 04/18/25 08:23 Dose: 2.5 mg Documented By: Admin: 04/17/25 12:40 Dose: 2.5 mg Documented By: Admin: 04/16/25 08:37 Dose: 2.5 mg Documented By: Admin: 04/15/25 08:07 Dose: 2.5 mg Documented By: prem Admin: 04/14/25 16:56 Dose: 2.5 mg Documented By: prem Admin: 04/13/25 08:25 Dose: 2.5 mg Documented By: Admin: 04/12/25 10:16 Dose: 2.5 mg Documented By: ADRIANNE Calcium/Vitamin D (Calcium 600mg + Vit D 400 Iu Tab) 1 tab PO DAILY@1100 SW[facility] Stop: 05/06/25 08:59 Last Admin: 04/18/25 16:12 Dose: 1 tab Documented By: Admin: 04/17/25 16:13 Dose: 1 tab Documented By: MARY ANNE Admin: 04/16/25 11:58 Dose: 1 tab Documented By: Admin: 04/15/25 11:02 Dose: 1 tab Documented By: prem Admin: 04/14/25 16:56 Dose: 1 tab Documented By: prem Admin: 04/13/25 11:01 Dose: 1 tab Documented By: Admin: 04/12/25 12:25 Dose: 1 tab Documented By: ADRIANNE Chlorhexidine Gluconate (Chlorhexidine Gluconate 0.12% 480 Ml) 15 ml MT TID SWAPNA Stop: 05/05/25 17:14 Last Admin: 04/29/25 09:52 Dose: 15 ml Documented By: Admin: 04/28/25 20:12 Dose: 15 ml Documented By: frandy Admin: 04/28/25 14:00 Dose: 15 ml Documented By: Admin: 04/28/25 10:57 Dose: 15 ml Documented By: Admin: 04/27/25 20:22 Dose: 15 ml Documented By: [email or web address] Admin: 04/27/25 13:31 Dose: 15 ml Documented By: Admin: 04/27/25 09:13 Dose: 15 ml Documented By: Admin: 04/26/25 20:27 Dose: 15 ml Documented By: frandy Admin: 04/26/25 13:41 Dose: Not Given Documented By: foreign Admin: 04/26/25 08:42 Dose: 15 ml Documented By: cjk Admin: 04/25/25 19:37 Dose: 15 ml Documented By: Admin: 04/25/25 14:14 Dose: Not Given Documented By: ACCOUNTS ADJUSTABLE CLERK Admin: 04/25/25 07:26 Dose: 15 ml Documented By: ACCOUNTS ADJUSTABLE CLERK Admin: 04/24/25 20:38 Dose: 15 ml Documented By: Admin: 04/24/25 12:03 Dose: Not Given Documented By: cjk Admin: 04/24/25 09:42 Dose: Not Given Documented By: cjk Admin: 04/23/25 20:23 Dose: 15 ml Documented By: Admin: 04/23/25 12:52 Dose: Not Given Documented By: cjk Admin: 04/23/25 09:29 Dose: Not Given Documented By: cjk Admin: 04/22/25 20:19 Dose: 15 ml Documented By: Admin: 04/22/25 14:38 Dose: Not Given Documented By: Admin: 04/22/25 08:58 Dose: 15 ml Documented By: Admin: 04/21/25 20:46 Dose: 15 ml Documented By: Admin: 04/21/25 13:17 Dose: 15 ml Documented By: Admin: 04/21/25 09:32 Dose: 15 ml Documented By: Admin: 04/20/25 20:15 Dose: 15 ml Documented By: Admin: 04/20/25 14:15 Dose: 15 ml Documented By: Admin: 04/20/25 08:35 Dose: 15 ml Documented By: Admin: 04/19/25 20:03 Dose: 15 ml Documented By: Admin: 04/19/25 14:28 Dose: 15 ml Documented By: Admin: 04/19/25 09:07 Dose: 15 ml Documented By: Admin: 04/18/25 21:05 Dose: 15 ml Documented By: Admin: 04/18/25 16:12 Dose: 15 ml Documented By: Admin: 04/18/25 08:26 Dose: 15 ml Documented By: Admin: 04/17/25 20:29 Dose: 15 ml Documented By: Admin: 04/17/25 16:13 Dose: 15 ml Documented By: Admin: 04/17/25 12:35 Dose: Not Given Documented By: Admin: 04/16/25 22:04 Dose: 15 ml Documented By: mcl Admin: 04/16/25 15:59 Dose: Not Given Documented By: Admin: 04/16/25 08:38 Dose: 15 ml Documented By: Admin: 04/15/25 22:06 Dose: 15 ml Documented By: Admin: 04/15/25 12:45 Dose: Not Given Documented By: prem Admin: 04/15/25 08:12 Dose: Not Given Documented By: prem Admin: 04/14/25 21:30 Dose: Not Given Documented By: Admin: 04/14/25 14:28 Dose: Not Given Documented By: prem Admin: 04/14/25 10:21 Dose: Not Given Documented By: prem Admin: 04/13/25 20:42 Dose: 15 ml Documented By: INTERNATIONAL COORDINATOR Admin: 04/13/25 13:48 Dose: 15 ml Documented By: Admin: 04/13/25 08:25 Dose: 15 ml Documented By: Admin: 04/12/25 20:35 Dose: 15 ml Documented By: Admin: 04/12/25 15:24 Dose: 15 ml Documented By: Admin: 04/12/25 08:20 Dose: 15 ml Documented By: Admin: 04/11/25 20:39 Dose: Not Given Documented By: Admin: 04/11/25 13:09 Dose: Not Given Documented By: Admin: 04/11/25 08:17 Dose: Not Given Documented By: Admin: 04/10/25 21:40 Dose: Not Given Documented By: Admin: 04/10/25 14:49 Dose: Not Given Documented By: cjk Admin: 04/10/25 08:38 Dose: 15 ml Documented By: cjk Admin: 04/09/25 21:26 Dose: Not Given Documented By: Admin: 04/09/25 13:23 Dose: Not Given Documented By: LR Admin: 04/09/25 08:14 Dose: Not Given Documented By: LR Admin: 04/08/25 20:48 Dose: Not Given Documented By: Admin: 04/08/25 13:17 Dose: Not Given Documented By: Admin: 04/08/25 08:44 Dose: Not Given Documented By: Admin: 04/07/25 20:16 Dose: 15 ml Documented By: Admin: 04/07/25 13:30 Dose: Not Given Documented By: Admin: 04/07/25 09:07 Dose: Not Given Documented By: Admin: 04/06/25 20:14 Dose: 15 ml Documented By: Admin: 04/06/25 13:28 Dose: Not Given Documented By: Admin: 04/06/25 08:15 Dose: 15 ml Documented By: Admin: 04/05/25 21:04 Dose: 15 ml Documented By: Admin: 04/05/25 18:48 Dose: Not Given Documented By: RAFAL Clobazam (Clobazam 5 Mg Tab) 5 mg PO HS SWAPNA Stop: 05/05/25 20:59 Last Admin: 04/28/25 20:11 Dose: 5 mg Documented By: heb Admin: 04/27/25 20:29 Dose: 5 mg Documented By: heb Admin: 04/26/25 20:27 Dose: 5 mg Documented By: heb Admin: 04/25/25 19:37 Dose: 5 mg Documented By: Admin: 04/24/25 20:38 Dose: 5 mg Documented By: Admin: 04/23/25 20:23 Dose: 5 mg Documented By: Admin: 04/22/25 20:19 Dose: 5 mg Documented By: Admin: 04/21/25 20:46 Dose: 5 mg Documented By: Admin: 04/20/25 20:17 Dose: 5 mg Documented By: Admin: 04/19/25 20:03 Dose: 5 mg Documented By: Admin: 04/18/25 21:03 Dose: 5 mg Documented By: Admin: 04/17/25 21:51 Dose: 5 mg Documented By: Admin: 04/16/25 21:41 Dose: 5 mg Documented By: Admin: 04/15/25 22:21 Dose: 5 mg Documented By: Admin: 04/14/25 21:23 Dose: 5 mg Documented By: Admin: 04/13/25 20:41 Dose: 5 mg Documented By: Admin: 04/12/25 20:35 Dose: 5 mg Documented By: Admin: 04/11/25 20:23 Dose: 5 mg Documented By: JAMandy Admin: 04/10/25 21:47 Dose: Not Given Documented By: KSIhsan Admin: 04/09/25 21:37 Dose: 5 mg Documented By: Admin: 04/08/25 21:29 Dose: 5 mg Documented By: Admin: 04/07/25 20:21 Dose: 5 mg Documented By: KMMandy Admin: 04/06/25 20:22 Dose: 5 mg Documented By: Admin: 04/05/25 21:27 Dose: 5 mg Documented By: JESSIE Hall (Austedo [Patient Own Med]) 1 each PO DAILY SWAPNA Stop: 05/06/25 08:59 Last Admin: 04/29/25 09:52 Dose: 1 each Documented By: Admin: 04/28/25 10:57 Dose: 1 each Documented By: MARY ANNE Admin: 04/27/25 08:58 Dose: 1 each Documented By: MARY ANNE Admin: 04/26/25 08:42 Dose: 1 each Documented By: foreign Admin: 04/25/25 07:27 Dose: 1 each Documented By: Admin: 04/24/25 09:42 Dose: Not Given Documented By: cjk Admin: 04/23/25 09:06 Dose: 1 each Documented By: cjk Admin: 04/22/25 08:58 Dose: 1 each Documented By: Admin: 04/21/25 10:08 Dose: 1 each Documented By: [email or web address] Admin: 04/20/25 08:35 Dose: 1 each Documented By: Admin: 04/19/25 12:05 Dose: 1 each Documented By: Admin: 04/18/25 08:27 Dose: 1 each Documented By: Admin: 04/17/25 17:08 Dose: Not Given Documented By: Admin: 04/16/25 08:38 Dose: 1 each Documented By: Admin: 04/15/25 08:06 Dose: 1 each Documented By: prem Admin: 04/14/25 17:15 Dose: 1 each Documented By: prem Admin: 04/13/25 08:25 Dose: 1 each Documented By: Admin: 04/12/25 09:10 Dose: 1 each Documented By: Admin: 04/11/25 08:19 Dose: Not Given Documented By: Admin: 04/10/25 08:38 Dose: 1 each Documented By: foreign Admin: 04/09/25 08:29 Dose: Not Given Documented By: Admin: 04/08/25 08:43 Dose: 1 each Documented By: Admin: 04/07/25 09:04 Dose: 1 each Documented By: Admin: 04/06/25 08:19 Dose: 1 each Documented By: RAFAL Famotidine (Famotidine 40 Mg Tablet) 40 mg PO DAILY SWAPNA Stop: 05/06/25 08:59 Last Admin: 04/29/25 09:50 Dose: 40 mg Documented By: Admin: 04/28/25 10:56 Dose: 40 mg Documented By: Admin: 04/27/25 08:58 Dose: 40 mg Documented By: Admin: 04/26/25 08:42 Dose: 40 mg Documented By: foreign Admin: 04/25/25 07:20 Dose: 40 mg Documented By: ACCOUNTS ADJUSTABLE CLERK Admin: 04/24/25 12:43 Dose: Not Given Documented By: foreign Admin: 04/23/25 09:05 Dose: 40 mg Documented By: cjk Admin: 04/22/25 08:57 Dose: 40 mg Documented By: Admin: 04/21/25 10:08 Dose: 40 mg Documented By: Admin: 04/20/25 08:32 Dose: 40 mg Documented By: Admin: 04/19/25 08:55 Dose: 40 mg Documented By: Admin: 04/18/25 08:22 Dose: 40 mg Documented By: Admin: 04/17/25 12:41 Dose: 40 mg Documented By: Admin: 04/16/25 08:37 Dose: 40 mg Documented By: Admin: 04/15/25 08:10 Dose: 40 mg Documented By: prem Admin: 04/14/25 16:55 Dose: 40 mg Documented By: prem Admin: 04/13/25 08:25 Dose: 40 mg Documented By: Admin: 04/12/25 09:10 Dose: 40 mg Documented By: Admin: 04/11/25 08:19 Dose: Not Given Documented By: Admin: 04/10/25 08:38 Dose: 40 mg Documented By: foreign Admin: 04/09/25 08:29 Dose: Not Given Documented By: Admin: 04/08/25 08:43 Dose: 40 mg Documented By: Admin: 04/07/25 09:07 Dose: Not Given Documented By: Admin: 04/06/25 08:17 Dose: 40 mg Documented By: RAFAL Lactobacillus Acidophilus (Lactobacillus Acidophilus 1 Gm Pack) 1 packet PO TIDM SWAPNA Stop: 05/16/25 11:59 Last Admin: 04/29/25 09:52 Dose: 1 packet Documented By: Admin: 04/28/25 17:38 Dose: 1 packet Documented By: Admin: 04/28/25 14:00 Dose: 1 packet Documented By: Admin: 04/28/25 10:49 Dose: 1 packet Documented By: Admin: 04/27/25 17:17 Dose: 1 packet Documented By: Admin: 04/27/25 13:31 Dose: 1 packet Documented By: Admin: 04/27/25 08:56 Dose: 1 packet Documented By: Admin: 04/26/25 17:56 Dose: 1 packet Documented By: cjk Admin: 04/26/25 12:40 Dose: 1 packet Documented By: cjk Admin: 04/26/25 08:42 Dose: 1 packet Documented By: cjk Admin: 04/25/25 17:44 Dose: Not Given Documented By: ACCOUNTS ADJUSTABLE CLERK Admin: 04/25/25 12:43 Dose: Not Given Documented By: ACCOUNTS ADJUSTABLE CLERK Admin: 04/25/25 07:18 Dose: 1 packet Documented By: ACCOUNTS ADJUSTABLE CLERK Admin: 04/24/25 16:51 Dose: 1 packet Documented By: cjk Admin: 04/24/25 13:17 Dose: Not Given Documented By: cjk Admin: 04/24/25 12:41 Dose: Not Given Documented By: cjk Admin: 04/23/25 17:37 Dose: 1 packet Documented By: cjk Admin: 04/23/25 13:03 Dose: 1 packet Documented By: cjk Admin: 04/23/25 09:04 Dose: 1 packet Documented By: cjk Admin: 04/22/25 17:40 Dose: 1 packet Documented By: Admin: 04/22/25 12:34 Dose: 1 packet Documented By: Admin: 04/22/25 08:56 Dose: 1 packet Documented By: Admin: 04/21/25 18:14 Dose: 1 packet Documented By: Admin: 04/21/25 13:17 Dose: 1 packet Documented By: Admin: 04/21/25 10:07 Dose: 1 packet Documented By: Admin: 04/20/25 17:47 Dose: 1 packet Documented By: Admin: 04/20/25 12:37 Dose: 1 packet Documented By: Admin: 04/20/25 08:32 Dose: 1 packet Documented By: Admin: 04/19/25 16:31 Dose: 1 packet Documented By: Admin: 04/19/25 11:04 Dose: Not Given Documented By: Admin: 04/19/25 08:56 Dose: 1 packet Documented By: Admin: 04/18/25 16:13 Dose: 1 packet Documented By: Admin: 04/18/25 12:45 Dose: 1 packet Documented By: Admin: 04/18/25 08:26 Dose: 1 packet Documented By: Admin: 04/17/25 17:09 Dose: 1 packet Documented By: Admin: 04/17/25 12:35 Dose: 1 packet Documented By: Admin: 04/17/25 12:35 Dose: Not Given Documented By: Admin: 04/16/25 16:28 Dose: 1 packet Documented By: Admin: 04/16/25 11:58 Dose: 1 packet Documented By: YUNIOR Lamotrigine (Lamotrigine 25 Mg Tab) 50 mg PO [facility]; Protocol Stop: 05/05/25 20:59 Last Admin: 04/29/25 09:48 Dose: 50 mg Documented By: Admin: 04/28/25 20:11 Dose: 50 mg Documented By: heb Admin: 04/28/25 10:50 Dose: 50 mg Documented By: Admin: 04/27/25 20:19 Dose: 50 mg Documented By: heb Admin: 04/27/25 08:59 Dose: 50 mg Documented By: Admin: 04/26/25 20:23 Dose: 50 mg Documented By: heb Admin: 04/26/25 08:41 Dose: 50 mg Documented By: cjk Admin: 04/25/25 19:37 Dose: 50 mg Documented By: Admin: 04/25/25 07:25 Dose: 50 mg Documented By: ACCOUNTS ADJUSTABLE CLERK Admin: 04/24/25 20:38 Dose: 50 mg Documented By: K Admin: 04/24/25 09:10 Dose: 50 mg Documented By: cjk Admin: 04/23/25 20:23 Dose: 50 mg Documented By: Admin: 04/23/25 09:05 Dose: 50 mg Documented By: cjk Admin: 04/22/25 20:19 Dose: 50 mg Documented By: Admin: 04/22/25 08:57 Dose: 50 mg Documented By: Admin: 04/21/25 20:47 Dose: 50 mg Documented By: Admin: 04/21/25 10:07 Dose: 50 mg Documented By: Admin: 04/20/25 20:15 Dose: 50 mg Documented By: Admin: 04/20/25 08:33 Dose: 50 mg Documented By: Admin: 04/19/25 20:04 Dose: 50 mg Documented By: Admin: 04/19/25 08:54 Dose: 50 mg Documented By: Admin: 04/18/25 21:04 Dose: 50 mg Documented By: Admin: 04/18/25 08:23 Dose: 50 mg Documented By: Admin: 04/17/25 20:27 Dose: 50 mg Documented By: Admin: 04/17/25 12:41 Dose: 50 mg Documented By: Admin: 04/16/25 22:04 Dose: 50 mg Documented By: mcl Admin: 04/16/25 08:35 Dose: 50 mg Documented By: Admin: 04/15/25 22:05 Dose: 25 mg Documented By: Admin: 04/15/25 08:07 Dose: 50 mg Documented By: prem Admin: 04/14/25 21:13 Dose: 50 mg Documented By: Admin: 04/14/25 16:55 Dose: 50 mg Documented By: prem Admin: 04/13/25 20:41 Dose: 50 mg Documented By: Admin: 04/13/25 08:25 Dose: 50 mg Documented By: Admin: 04/12/25 20:36 Dose: 50 mg Documented By: Admin: 04/12/25 09:10 Dose: 50 mg Documented By: Admin: 04/11/25 20:22 Dose: 50 mg Documented By: Admin: 04/11/25 08:11 Dose: 50 mg Documented By: Admin: 04/10/25 21:47 Dose: Not Given Documented By: Admin: 04/10/25 08:38 Dose: 50 mg Documented By: ACCOUNTS ADJUSTABLE CLERK Admin: 04/09/25 21:37 Dose: 50 mg Documented By: Admin: 04/09/25 08:29 Dose: Not Given Documented By: LR Admin: 04/08/25 20:50 Dose: 50 mg Documented By: Admin: 04/08/25 08:43 Dose: 50 mg Documented By: Admin: 04/07/25 20:17 Dose: 50 mg Documented By: Admin: 04/07/25 09:03 Dose: 50 mg Documented By: Admin: 04/06/25 20:15 Dose: 50 mg Documented By: Admin: 04/06/25 08:16 Dose: 50 mg Documented By: Admin: 04/05/25 21:04 Dose: 50 mg Documented By: PNJamey Lamotrigine (Lamotrigine 100 Mg Tab) 200 mg PO [facility]; Protocol Stop: 05/05/25 20:59 Last Admin: 04/29/25 09:51 Dose: 200 mg Documented By: Admin: 04/28/25 20:11 Dose: 200 mg Documented By: heb Admin: 04/28/25 10:52 Dose: 200 mg Documented By: Admin: 04/27/25 20:22 Dose: 200 mg Documented By: heb Admin: 04/27/25 08:57 Dose: 200 mg Documented By: Admin: 04/26/25 20:24 Dose: 200 mg Documented By: heb Admin: 04/26/25 08:41 Dose: 200 mg Documented By: foreign Admin: 04/25/25 19:37 Dose: 200 mg Documented By: Admin: 04/25/25 07:25 Dose: 200 mg Documented By: Admin: 04/24/25 20:38 Dose: 200 mg Documented By: Admin: 04/24/25 09:10 Dose: 200 mg Documented By: foreign Admin: 04/23/25 20:23 Dose: 200 mg Documented By: Admin: 04/23/25 09:04 Dose: 200 mg Documented By: adilenek Admin: 04/22/25 20:19 Dose: 200 mg Documented By: K Admin: 04/22/25 08:58 Dose: 200 mg Documented By: Admin: 04/21/25 20:47 Dose: 200 mg Documented By: Admin: 04/21/25 10:07 Dose: 200 mg Documented By: Admin: 04/20/25 20:15 Dose: 200 mg Documented By: Admin: 04/20/25 08:33 Dose: 200 mg Documented By: Admin: 04/19/25 20:04 Dose: 200 mg Documented By: Admin: 04/19/25 12:04 Dose: 200 mg Documented By: Admin: 04/18/25 21:04 Dose: 200 mg Documented By: Admin: 04/18/25 08:22 Dose: 200 mg Documented By: Admin: 04/17/25 20:27 Dose: 200 mg Documented By: Admin: 04/17/25 12:42 Dose: 200 mg Documented By: Admin: 04/16/25 21:58 Dose: 200 mg Documented By: mcl Admin: 04/16/25 08:37 Dose: 200 mg Documented By: Admin: 04/15/25 22:46 Dose: Not Given Documented By: Admin: 04/15/25 11:01 Dose: 200 mg Documented By: prem Admin: 04/14/25 21:13 Dose: 200 mg Documented By: Admin: 04/14/25 16:54 Dose: 200 mg Documented By: prem Admin: 04/13/25 20:41 Dose: 200 mg Documented By: Admin: 04/13/25 08:25 Dose: 200 mg Documented By: Admin: 04/12/25 20:36 Dose: 200 mg Documented By: Admin: 04/12/25 09:10 Dose: 200 mg Documented By: Admin: 04/11/25 20:22 Dose: 200 mg Documented By: Admin: 04/11/25 08:10 Dose: 200 mg Documented By: Admin: 04/10/25 21:47 Dose: Not Given Documented By: Admin: 04/10/25 08:37 Dose: 200 mg Documented By: cjk Admin: 04/09/25 21:37 Dose: 200 mg Documented By: Admin: 04/09/25 08:29 Dose: Not Given Documented By: LR Admin: 04/08/25 20:50 Dose: 200 mg Documented By: Admin: 04/08/25 08:43 Dose: 200 mg Documented By: Admin: 04/07/25 20:17 Dose: 200 mg Documented By: Admin: 04/07/25 09:02 Dose: 200 mg Documented By: Admin: 04/06/25 20:16 Dose: 200 mg Documented By: Admin: 04/06/25 08:16 Dose: 200 mg Documented By: Admin: 04/05/25 21:04 Dose: 200 mg Documented By: PNM Levetiracetam (Levetiracetam 500 Mg Tab) 1,500 mg PO BID SWAPNA Stop: 05/05/25 20:59 Last Admin: 04/29/25 09:49 Dose: 1,500 mg Documented By: Admin: 04/28/25 20:11 Dose: 1,500 mg Documented By: heb Admin: 04/28/25 11:01 Dose: 1,500 mg Documented By: Admin: 04/27/25 20:21 Dose: 1,500 mg Documented By: heb Admin: 04/27/25 08:56 Dose: 1,500 mg Documented By: Admin: 04/26/25 20:24 Dose: 1,500 mg Documented By: heb Admin: 04/26/25 08:41 Dose: 1,500 mg Documented By: adilenek Admin: 04/25/25 19:37 Dose: 1,500 mg Documented By: Admin: 04/25/25 07:19 Dose: 1,500 mg Documented By: Admin: 04/24/25 20:38 Dose: 1,500 mg Documented By: Admin: 04/24/25 09:08 Dose: 1,500 mg Documented By: foreign Admin: 04/15/25 08:13 Dose: Not Given Documented By: prem Admin: 04/14/25 21:13 Dose: Not Given Documented By: Admin: 04/11/25 20:40 Dose: Not Given Documented By: Admin: 04/11/25 08:09 Dose: 1,500 mg Documented By: Admin: 04/10/25 21:47 Dose: Not Given Documented By: Admin: 04/10/25 08:36 Dose: 1,500 mg Documented By: foreign Admin: 04/09/25 21:36 Dose: 1,500 mg Documented By: Admin: 04/09/25 08:29 Dose: Not Given Documented By: LR Admin: 04/08/25 20:49 Dose: 1,500 mg Documented By: Admin: 04/08/25 08:43 Dose: 1,500 mg Documented By: Admin: 04/07/25 20:16 Dose: 1,500 mg Documented By: Admin: 04/07/25 09:01 Dose: 1,500 mg Documented By: Admin: 04/06/25 20:18 Dose: 1,500 mg Documented By: Admin: 04/06/25 08:15 Dose: 1,500 mg Documented By: Admin: 04/05/25 21:04 Dose: 1,500 mg Documented By: PNM Metoprolol Succinate (Metoprolol Succ 25mg Ext Rel Tab) 25 mg PO QAM SWAPNA Stop: 05/12/25 08:59 Last Admin: 04/29/25 09:51 Dose: 25 mg Documented By: Admin: 04/28/25 11:02 Dose: 25 mg Documented By: Admin: 04/27/25 08:56 Dose: 25 mg Documented By: Admin: 04/26/25 08:42 Dose: 25 mg Documented By: adilenek Admin: 04/25/25 07:20 Dose: 25 mg Documented By: ACCOUNTS ADJUSTABLE CLERK Admin: 04/24/25 09:09 Dose: 25 mg Documented By: cjk Admin: 04/23/25 09:05 Dose: 25 mg Documented By: cjk Admin: 04/22/25 08:57 Dose: 25 mg Documented By: Admin: 04/21/25 10:07 Dose: 25 mg Documented By: Admin: 04/20/25 08:32 Dose: 25 mg Documented By: Admin: 04/19/25 08:55 Dose: 25 mg Documented By: Admin: 04/18/25 08:21 Dose: 25 mg Documented By: Admin: 04/17/25 12:43 Dose: 25 mg Documented By: Admin: 04/16/25 08:39 Dose: 25 mg Documented By: Admin: 04/15/25 08:10 Dose: 25 mg Documented By: prem Admin: 04/14/25 16:56 Dose: 25 mg Documented By: prem Admin: 04/13/25 08:25 Dose: 25 mg Documented By: Admin: 04/12/25 09:10 Dose: 25 mg Documented By: ADRIANNE Ondansetron HCl (Ondansetron Inj 2 Mg/Ml 2 Ml Vial) 4 mg IV Q6H PRN PRN Reason: Nausea Stop: 05/05/25 16:42 Last Admin: 04/25/25 11:25 Dose: 4 mg Documented By: BRIAN Perphenazine (Perphenazine 2 Mg Tab) 1 mg PO QAM [facility] Stop: 05/07/25 08:59 Last Admin: 04/29/25 09:50 Dose: 1 mg Documented By: Admin: 04/28/25 11:02 Dose: 1 mg Documented By: MARY ANNE Admin: 04/27/25 08:58 Dose: 1 mg Documented By: Admin: 04/26/25 08:41 Dose: 1 mg Documented By: [email or web address] Admin: 04/25/25 07:22 Dose: 1 mg Documented By: Admin: 04/24/25 09:09 Dose: 1 mg Documented By: [email or web address] Admin: 04/23/25 09:05 Dose: 1 mg Documented By: [email or web address] Admin: 04/22/25 08:57 Dose: 1 mg Documented By: Admin: 04/21/25 10:08 Dose: 1 mg Documented By: Admin: 04/20/25 08:33 Dose: 1 mg Documented By: Admin: 04/19/25 08:54 Dose: 1 mg Documented By: Admin: 04/18/25 08:24 Dose: 1 mg Documented By: Admin: 04/17/25 12:43 Dose: 1 mg Documented By: Admin: 04/16/25 08:36 Dose: 1 mg Documented By: Admin: 04/15/25 08:06 Dose: 1 mg Documented By: prem Admin: 04/14/25 17:16 Dose: Not Given Documented By: prem Admin: 04/13/25 08:25 Dose: 1 mg Documented By: Admin: 04/12/25 09:10 Dose: 1 mg Documented By: Admin: 04/11/25 08:19 Dose: Not Given Documented By: Admin: 04/10/25 08:37 Dose: 1 mg Documented By: cjk Admin: 04/09/25 08:29 Dose: Not Given Documented By: LR Admin: 04/08/25 08:43 Dose: 1 mg Documented By: Admin: 04/07/25 09:00 Dose: 1 mg Documented By: RAFAL Perphenazine (Perphenazine 2 Mg Tab) 3 mg PO HS SWAPNA Stop: 05/06/25 20:59 Last Admin: 04/28/25 20:11 Dose: 3 mg Documented By: heb Admin: 04/27/25 20:19 Dose: 3 mg Documented By: heb Admin: 04/26/25 20:25 Dose: 3 mg Documented By: heb Admin: 04/25/25 19:38 Dose: 3 mg Documented By: Admin: 04/24/25 20:38 Dose: 3 mg Documented By: Admin: 04/23/25 20:24 Dose: 3 mg Documented By: Admin: 04/22/25 20:19 Dose: 3 mg Documented By: Admin: 04/21/25 20:47 Dose: 3 mg Documented By: Admin: 04/20/25 20:15 Dose: 3 mg Documented By: Admin: 04/19/25 20:04 Dose: 3 mg Documented By: Admin: 04/18/25 21:04 Dose: 3 mg Documented By: Admin: 04/17/25 20:25 Dose: 3 mg Documented By: Admin: 04/16/25 22:02 Dose: 3 mg Documented By: mcl Admin: 04/15/25 22:46 Dose: Not Given Documented By: Admin: 04/14/25 21:13 Dose: 3 mg Documented By: Admin: 04/13/25 20:42 Dose: 3 mg Documented By: INTERNATIONAL COORDINATOR Admin: 04/12/25 20:37 Dose: 3 mg Documented By: Admin: 04/11/25 20:25 Dose: 3 mg Documented By: Admin: 04/10/25 21:47 Dose: Not Given Documented By: Admin: 04/09/25 21:37 Dose: 3 mg Documented By: Admin: 04/08/25 20:51 Dose: 3 mg Documented By: Admin: 04/07/25 20:19 Dose: 3 mg Documented By: Admin: 04/06/25 20:20 Dose: 3 mg Documented By: LIVIA Polyethylene Glycol (Polyethylene (Miralax) 17 Gm Pack) [facility] Stop: 05/06/25 08:59 Last Admin: 04/29/25 09:48 Dose: 17 gm Documented By: Admin: 04/28/25 11:05 Dose: Not Given Documented By: Admin: 04/27/25 08:59 Dose: Not Given Documented By: Admin: 04/26/25 08:42 Dose: 17 gm Documented By: foreign Admin: 04/25/25 07:30 Dose: 17 gm Documented By: ACCOUNTS ADJUSTABLE CLERK Admin: 04/24/25 09:08 Dose: 17 gm Documented By: cjk Admin: 04/23/25 09:22 Dose: 17 gm Documented By: cjk Admin: 04/22/25 09:00 Dose: 17 gm Documented By: Admin: 04/21/25 10:08 Dose: Not Given Documented By: Admin: 04/20/25 08:36 Dose: Not Given Documented By: Admin: 04/19/25 09:12 Dose: 17 gm Documented By: Admin: 04/18/25 08:44 Dose: 17 gm Documented By: Admin: 04/17/25 12:38 Dose: 17 gm Documented By: Admin: 04/16/25 08:40 Dose: Not Given Documented By: Admin: 04/15/25 08:17 Dose: 17 gm Documented By: prem Admin: 04/14/25 14:17 Dose: Not Given Documented By: prem Admin: 04/13/25 08:25 Dose: Not Given Documented By: Admin: 04/12/25 09:10 Dose: 17 gm Documented By: Admin: 04/11/25 08:17 Dose: Not Given Documented By: Admin: 04/10/25 08:38 Dose: 17 gm Documented By: foreign Admin: 04/09/25 08:29 Dose: 17 gm Documented By: Admin: 04/08/25 08:44 Dose: 17 gm Documented By: Admin: 04/07/25 09:07 Dose: Not Given Documented By: Admin: 04/06/25 09:14 Dose: 17 gm Documented By: RAFAL Potassium Chloride (Potassium Chloride 10 Meq Tabcr) 20 meq PO DAILY SWAPNA Stop: 05/28/25 08:59 Last Admin: 04/29/25 09:48 Dose: 20 meq Documented By: Admin: 04/28/25 11:04 Dose: 20 meq Documented By: MARY ANNE Quetiapine Fumarate (Quetiapine Fumarate 25 Mg Tablet) 50 mg PO QAM SWAPNA Stop: 05/06/25 08:59 Last Admin: 04/29/25 09:50 Dose: 50 mg Documented By: Admin: 04/28/25 11:03 Dose: 50 mg Documented By: MARY ANNE Admin: 04/27/25 08:57 Dose: 50 mg Documented By: Admin: 04/26/25 08:42 Dose: 50 mg Documented By: adilenek Admin: 04/25/25 07:28 Dose: 50 mg Documented By: ACCOUNTS ADJUSTABLE CLERK Admin: 04/24/25 09:10 Dose: 50 mg Documented By: cjk Admin: 04/23/25 09:05 Dose: 50 mg Documented By: cjk Admin: 04/22/25 08:57 Dose: 50 mg Documented By: [email or web address] Admin: 04/21/25 10:07 Dose: 50 mg Documented By: Admin: 04/20/25 08:33 Dose: 50 mg Documented By: Admin: 04/19/25 08:52 Dose: 50 mg Documented By: Admin: 04/18/25 08:22 Dose: 50 mg Documented By: Admin: 04/17/25 12:44 Dose: 50 mg Documented By: Admin: 04/16/25 08:39 Dose: 50 mg Documented By: Admin: 04/15/25 08:34 Dose: 50 mg Documented By: prem Admin: 04/14/25 16:53 Dose: 50 mg Documented By: prem Admin: 04/13/25 08:25 Dose: 50 mg Documented By: Admin: 04/12/25 09:10 Dose: 50 mg Documented By: TLJamey Admin: 04/11/25 08:19 Dose: Not Given Documented By: Admin: 04/10/25 08:36 Dose: 50 mg Documented By: cjk Admin: 04/09/25 08:29 Dose: Not Given Documented By: LR Admin: 04/08/25 08:43 Dose: 50 mg Documented By: Admin: 04/07/25 09:05 Dose: 50 mg Documented By: Admin: 04/06/25 08:17 Dose: 50 mg Documented By: RAFAL Quetiapine Fumarate (Quetiapine Fumarate 200 Mg Tab) 200 mg PO HS SWAPNA Stop: 05/05/25 20:59 Last Admin: 04/28/25 20:15 Dose: 200 mg Documented By: heb Admin: 04/27/25 20:21 Dose: 200 mg Documented By: heb Admin: 04/26/25 20:27 Dose: 200 mg Documented By: heb Admin: 04/25/25 19:39 Dose: 200 mg Documented By: Admin: 04/24/25 20:38 Dose: 200 mg Documented By: Admin: 04/23/25 20:23 Dose: 200 mg Documented By: Admin: 04/22/25 20:19 Dose: 200 mg Documented By: Admin: 04/21/25 20:48 Dose: 200 mg Documented By: Admin: 04/20/25 20:48 Dose: 200 mg Documented By: field party manager: 04/19/25 20:05 Dose: 200 mg Documented By: Admin: 04/18/25 21:03 Dose: 200 mg Documented By: Admin: 04/17/25 20:25 Dose: 200 mg Documented By: Admin: 04/16/25 22:57 Dose: 200 mg Documented By: Admin: 04/15/25 22:04 Dose: 200 mg Documented By: Admin: 04/14/25 21:14 Dose: 200 mg Documented By: Admin: 04/13/25 22:04 Dose: 200 mg Documented By: Admin: 04/12/25 20:37 Dose: 200 mg Documented By: Admin: 04/11/25 20:26 Dose: 200 mg Documented By: Admin: 04/10/25 21:47 Dose: Not Given Documented By: Admin: 04/09/25 21:36 Dose: 200 mg Documented By: Admin: 04/08/25 20:49 Dose: 200 mg Documented By: Admin: 04/07/25 20:20 Dose: 200 mg Documented By: Admin: 04/06/25 20:20 Dose: 200 mg Documented By: Admin: 04/05/25 21:04 Dose: 200 mg Documented By: PNM Sertraline HCl (Sertraline Hcl 100 Mg Tablet) 100 mg PO QAM SWAPNA Stop: 05/06/25 08:59 Last Admin: 04/29/25 09:50 Dose: 100 mg Documented By: Admin: 04/28/25 11:03 Dose: 100 mg Documented By: Admin: 04/27/25 08:57 Dose: 100 mg Documented By: Admin: 04/26/25 08:42 Dose: 100 mg Documented By: foreign Admin: 04/25/25 07:21 Dose: 100 mg Documented By: Admin: 04/24/25 09:09 Dose: 100 mg Documented By: cjk Admin: 04/23/25 09:05 Dose: 100 mg Documented By: cjk Admin: 04/22/25 08:58 Dose: 100 mg Documented By: [email or web address] Admin: 04/21/25 10:08 Dose: 100 mg Documented By: Admin: 04/20/25 08:33 Dose: 100 mg Documented By: Admin: 04/19/25 08:55 Dose: 100 mg Documented By: Admin: 04/18/25 08:26 Dose: 100 mg Documented By: Admin: 04/17/25 12:45 Dose: 100 mg Documented By: Admin: 04/16/25 08:40 Dose: 100 mg Documented By: Admin: 04/15/25 08:09 Dose: 100 mg Documented By: prem Admin: 04/14/25 17:17 Dose: 100 mg Documented By: prem Admin: 04/13/25 08:25 Dose: 100 mg Documented By: Admin: 04/12/25 09:10 Dose: 100 mg Documented By: Admin: 04/11/25 08:19 Dose: Not Given Documented By: Admin: 04/10/25 08:36 Dose: 100 mg Documented By: foreign Admin: 04/09/25 08:29 Dose: Not Given Documented By: Admin: 04/08/25 08:43 Dose: 100 mg Documented By: Admin: 04/07/25 09:04 Dose: 100 mg Documented By: Admin: 04/06/25 08:18 Dose: 100 mg Documented By: RAFAL
--- NOTE | 2025-04-30 13:05 | Psychiatric Consultation ---
Date of Consultation April 30, 2025 Impression / Recommendations Impression Diagnostically it is difficult to assess her emotionally state due to her being nonverbal. She does not currently present with any signs or behaviors observed over the course of this extended hospitalization to suggest self-harming behaviors, acute psychosis, evelyn nor lack of interest/depression. Therefore the patient is considered psychiatrically stable for transfer to a [facility] facility. There is no acute indication for inpatient psychiatric hospitalization as there is no evidence for suicidal or homicidal ideation; there is no evidence of psychosis nor psychiatric symptoms interfering with their ability to care for their basic needs. Psychiatric follow-up care for this patient should include ongoing management of their medications. (1) Intellectual disability: (2) Weakness: (3) Nonverbal: Plan -Stable for [facility] facility placement -Psych liason to continue to attempt collateral from caregivers at the [facility] to ensure they have no acute psychiatric concerns Psych History Identifying Data Ines Delatorre is a 59 yo female with a medical history of severe intellectual disability c/b epilepsy, nonverbal status, fecal/urinary incontinence, s/p recent urethral stent placement, fatty liver disease, GERD, OCD, IAN, who presents for a fall from the [facility] and medically admitted since 04/05/2025. Psychiatry consulted for target evaluation for placement. Chief Complaint Mute History of Present Illness Ines is non-verbal so only history review is per chart as her caregiver was not present when Dr. Aparicio saw her on 04/29/2025 and not present today at time of my evaluation either. There is no history of prior psych consult notes. per chart history of MDD and OCD and tardive dyskinesia. She is sitting in bed, about to have lunch with nurses help. She does point to toothbrush and drink icon on her communication board when asked what she may need. Cannot assess current emotional state via subjective means but she doesn't appear to be showing any signs of acute psychic distress. Allergies Allergy/AdvReac Type Severity Reaction Status Date / Time caffeine Allergy Unknown Unknown Verified 02/09/25 14:57 naproxen Allergy Unknown no rxn Verified 02/09/25 14:57 info listed NSAIDS (Non-Steroidal Allergy Unknown no rxn Verified 02/09/25 14:57 Anti-Inflamma listed stimulants AdvReac Unknown Uncoded 04/05/25 15:51 Home Medications Medication Instructions Recorded Confirmed Type acetaminophen 500 mg tablet 500 mg PO QAM chronic pain 12/15/24 04/05/25 History aloe vera 1 applic topical Q1H PRN Sunburn 12/15/24 04/05/25 History aluminum-mag hydroxide-simethicone 10 ml PO DIRECTED PRN 12/15/24 04/05/25 History 400 mg-400 mg-40 mg/5 mL oral susp Indigestion (Maalox Maximum Strength) bisacodyl 5 mg tablet,delayed 10 mg PO Q3D PRN Constipation 12/15/24 04/05/25 History release (Dulcolax (bisacodyl)) chlorhexidine gluconate 0.12 % 1 applic buccal TID chronic 12/15/24 04/05/25 History mouthwash gingivitis clobazam 10 mg tablet (Onfi) 5 mg PO HS 12/15/24 04/05/25 History deutetrabenazine 36 mg 36 mg PO DAILY 12/15/24 04/05/25 History tablet,extended release 24 hr (Austedo XR) docusate sodium 100 mg capsule 100 mg PO AMHS 12/15/24 04/05/25 History famotidine 40 mg tablet (Pepcid) 40 mg PO DAILY 12/15/24 04/05/25 History glycopyrrolate 1 mg tablet 1 mg PO TID excessive drooling 12/15/24 04/05/25 History (Robinul) hydrocortisone 1 % topical cream 1 applic topical TID PRN Rash 12/15/24 04/05/25 History lamotrigine 100 mg tablet 50 mg PO AMHS 12/15/24 04/05/25 History lamotrigine 200 mg tablet 200 mg PO AMHS 12/15/24 04/05/25 History (Lamictal) levetiracetam 1,000 mg tablet 1,000 mg PO BID 12/15/24 04/05/25 History levetiracetam 500 mg tablet 500 mg PO BID 12/15/24 04/05/25 History (Keppra) loperamide 2 mg capsule (Imodium 2 mg PO DIRECTED PRN Loose Stool 12/15/24 04/05/25 History A-D) multivitamin 1 tab PO QAM 12/15/24 04/05/25 History phosphorated carbohydrate oral 30 ml PO DIRECTED PRN Nausea 12/15/24 04/05/25 History solution (Emetrol oral solution) polyethylene glycol 3350 17 17 g PO QAM 12/15/24 04/05/25 History gram/dose oral powder (Miralax) quetiapine 200 mg tablet (Seroquel) 200 mg PO HS 12/15/24 04/05/25 History quetiapine 50 mg tablet (Seroquel) 50 mg PO QAM 12/15/24 04/05/25 History sertraline 100 mg tablet (Zoloft) 100 mg PO QAM 12/15/24 04/05/25 History cholecalciferol (vitamin D3) 125 125 mcg PO QAM #30 tabs 12/24/24 04/05/25 Rx mcg (5,000 unit) tablet ferrous sulfate 325 mg (65 mg 325 mg PO BIDM #60 tabs 12/24/24 04/05/25 Rx iron) tablet,delayed release calcium polycarbophil 625 mg 625 mg PO QAM 01/05/25 04/05/25 History tablet (FiberCon) neomycin-bacitracn Zn-polymyxn 3.5 1 applic topical BID PRN abrasion 01/05/25 04/05/25 History mg-400 unit-5,000 unit top oint until resolved pkt (Triple Antibiotic) acetaminophen 500 mg tablet 1,000 mg PO Q4H PRN elevated 02/09/25 04/05/25 History temp/headache/mild pain fluoride (sodium) 1.1 % dental 1 applic dental BID 02/09/25 04/05/25 History cream (SF 5000 Plus) calcium 500 mg (as 1 tab PO QAM 02/21/25 04/05/25 History carbonate)-vitamin D3 5 mcg (200 unit) tablet nystatin 100,000 unit/gram topical 1 applic topical HS 02/21/25 04/05/25 History cream dextromethorphan-guaifenesin 10 5 ml PO Q4 PRN Cough 04/05/25 04/05/25 History mg-200 mg/5 mL oral liquid metoprolol succinate 25 mg 25 mg PO DAILY 04/05/25 04/05/25 History tablet,extended release 24 hr phenylephrine HCl 10 mg tablet 10 mg PO Q4 PRN colds/runny nose 04/05/25 04/05/25 History Lactobacillus acidoph-L.bulgaricus 1 tab PO DAILY 30 days #30 tabs 04/08/25 Rx 1 million cell tablet (Floranex) perphenazine 2 mg tablet 1 mg (1/2 x 2 mg) PO QAM 30 days 04/08/25 Rx #15 tabs perphenazine 2 mg tablet 3 mg (1.5 x 2 mg) PO HS 30 days 04/08/25 Rx #45 tabs Patient History Medical History Candidal cystitis and urethritis Other abnormalities of gait and mobility Respiratory failure with hypoxia hx not known per facility, hospitalized [facility] december 2024. At current O2 sats while awake 95 % per facility. Bilateral pleural effusion Left ureteral calculus Complicated UTI (urinary tract infection) Osteoarthritis of hips, bilateral Autism Severe intellectual disability Nocturnal hypoxemia per facility while in hospital 12/2024, suspected sleep apnea, sats would drop at night. Denies occuring currently. Alcantara catheter in place History of sepsis hospitalized [facility] december 2024. Resolved per facility. History of pneumonia (12/2024) hospitalized at [facility]. december 2024. resolved per facility. Congenital hiatus hernia Umbilical hernia Hydronephrosis with renal and ureteral calculous obstruction Iron deficiency anemia Epilepsy Fatty (change of) liver, not elsewhere classified Psychomotor deficit Flat foot Other acquired deformity of toe toes Myopathy extraocular muscles right orbit Diplopia Other forms of scoliosis, lumbar region Pure hypercholesterolemia, unspecified Major depressive disorder, recurrent Hypermetropia, bilateral Diarrhea, unspecified Drug induced subacute dyskinesia Tremor, unspecified Restlessness and agitation GERD without esophagitis Deficiency of other vitamins Depression Constipation Unspecified cataract Lump of right breast Urinary incontinence Chronic pain Repeated falls facility denies fall in past 90 days. Astigmatism unspecified, right eye unspecified, left eye Chronic gum disease chronic gingivitis , plaque induced Dysphagia Anxiety disorder, unspecified OCD (obsessive compulsive disorder) Dementia unspecified Somnolence Polypharmacy Surgical History History of cystoscopy (~12/16/24) Cystoscopy with irrigation of bladder and catheter placement. Left uretero scopy, Retrograde Pyelogram, Left Stent Placement, ureteral dilation, and aspiration of left kidney Grade 2 view, glidescope 3, ETT 7.0. Surgical history unknown Social History Smoking Status: Never smoker Second Hand Exposure: No; Hx Alcohol Use: No Hx Substance Use: No Preferred Language: Jordanian Communication Ability: Unable Communication Ability Comment: communicaion board Tax Advisor Required: No Beliefs That Will Affect Care: None marital status: Single Current Living Situation: Personal Care Facility and Other Current Living Situation Comment: [facility] current occupational status: disabled Feels Safe at Home: Yes Assistive Devices: Walker, Wheelchair and Other Physical Exam Vital Signs (Past 24 Hours): Last Vital Signs Temp 36.6 C 04/30/25 11:31 Pulse 63 04/30/25 11:31 Resp 20 04/30/25 11:31 BP 111/67 04/30/25 11:31 Pulse Ox 96 04/30/25 11:31 O2 Del Method Room Air 04/30/25 11:31 O2 Flow Rate 2 04/21/25 16:20 Results & Data (PSY) Medications Administered Chlorhexidine Gluconate (Chlorhexidine Gluconate 0.12% 480 Ml) 15 ml MT TID SWAPNA Stop: 05/05/25 17:14 Last Admin: 04/30/25 08:53 Dose: 15 ml Documented By: caridad Admin: 04/29/25 20:20 Dose: 15 ml Documented By: Admin: 04/29/25 13:19 Dose: 15 ml Documented By: Admin: 04/29/25 09:52 Dose: 15 ml Documented By: Admin: 04/28/25 20:12 Dose: 15 ml Documented By: heb Admin: 04/28/25 14:00 Dose: 15 ml Documented By: Admin: 04/28/25 10:57 Dose: 15 ml Documented By: Admin: 04/27/25 20:22 Dose: 15 ml Documented By: heb Admin: 04/27/25 13:31 Dose: 15 ml Documented By: Admin: 04/27/25 09:13 Dose: 15 ml Documented By: Admin: 04/26/25 20:27 Dose: 15 ml Documented By: heb Admin: 04/26/25 13:41 Dose: Not Given Documented By: cjk Admin: 04/26/25 08:42 Dose: 15 ml Documented By: cjk Admin: 04/25/25 19:37 Dose: 15 ml Documented By: Admin: 04/25/25 14:14 Dose: Not Given Documented By: SITE LEAD Admin: 04/25/25 07:26 Dose: 15 ml Documented By: SITE LEAD Admin: 04/24/25 20:38 Dose: 15 ml Documented By: Admin: 04/24/25 12:03 Dose: Not Given Documented By: cjk Admin: 04/24/25 09:42 Dose: Not Given Documented By: cjk Admin: 04/23/25 20:23 Dose: 15 ml Documented By: Admin: 04/23/25 12:52 Dose: Not Given Documented By: cjk Admin: 04/23/25 09:29 Dose: Not Given Documented By: cjk Admin: 04/22/25 20:19 Dose: 15 ml Documented By: Admin: 04/22/25 14:38 Dose: Not Given Documented By: Admin: 04/22/25 08:58 Dose: 15 ml Documented By: Admin: 04/21/25 20:46 Dose: 15 ml Documented By: Admin: 04/21/25 13:17 Dose: 15 ml Documented By: Admin: 04/21/25 09:32 Dose: 15 ml Documented By: Admin: 04/20/25 20:15 Dose: 15 ml Documented By: Admin: 04/20/25 14:15 Dose: 15 ml Documented By: Admin: 04/20/25 08:35 Dose: 15 ml Documented By: Admin: 04/19/25 20:03 Dose: 15 ml Documented By: Admin: 04/19/25 14:28 Dose: 15 ml Documented By: Admin: 04/19/25 09:07 Dose: 15 ml Documented By: Admin: 04/18/25 21:05 Dose: 15 ml Documented By: Admin: 04/18/25 16:12 Dose: 15 ml Documented By: Admin: 04/18/25 08:26 Dose: 15 ml Documented By: Admin: 04/17/25 20:29 Dose: 15 ml Documented By: Admin: 04/17/25 16:13 Dose: 15 ml Documented By: Admin: 04/17/25 12:35 Dose: Not Given Documented By: Admin: 04/16/25 22:04 Dose: 15 ml Documented By: mcl Admin: 04/16/25 15:59 Dose: Not Given Documented By: Admin: 04/16/25 08:38 Dose: 15 ml Documented By: Admin: 04/15/25 22:06 Dose: 15 ml Documented By: Admin: 04/15/25 12:45 Dose: Not Given Documented By: prem Admin: 04/15/25 08:12 Dose: Not Given Documented By: prem Admin: 04/14/25 21:30 Dose: Not Given Documented By: Admin: 04/14/25 14:28 Dose: Not Given Documented By: prem Admin: 04/14/25 10:21 Dose: Not Given Documented By: prem Admin: 04/13/25 20:42 Dose: 15 ml Documented By: AIR TESTER Admin: 04/13/25 13:48 Dose: 15 ml Documented By: Admin: 04/13/25 08:25 Dose: 15 ml Documented By: Admin: 04/12/25 20:35 Dose: 15 ml Documented By: Admin: 04/12/25 15:24 Dose: 15 ml Documented By: Admin: 04/12/25 08:20 Dose: 15 ml Documented By: Admin: 04/11/25 20:39 Dose: Not Given Documented By: Admin: 04/11/25 13:09 Dose: Not Given Documented By: Admin: 04/11/25 08:17 Dose: Not Given Documented By: Admin: 04/10/25 21:40 Dose: Not Given Documented By: Admin: 04/10/25 14:49 Dose: Not Given Documented By: cjk Admin: 04/10/25 08:38 Dose: 15 ml Documented By: cjk Admin: 04/09/25 21:26 Dose: Not Given Documented By: Admin: 04/09/25 13:23 Dose: Not Given Documented By: LR Admin: 04/09/25 08:14 Dose: Not Given Documented By: LR Admin: 04/08/25 20:48 Dose: Not Given Documented By: Admin: 04/08/25 13:17 Dose: Not Given Documented By: Admin: 04/08/25 08:44 Dose: Not Given Documented By: Admin: 04/07/25 20:16 Dose: 15 ml Documented By: Admin: 04/07/25 13:30 Dose: Not Given Documented By: Admin: 04/07/25 09:07 Dose: Not Given Documented By: Admin: 04/06/25 20:14 Dose: 15 ml Documented By: Admin: 04/06/25 13:28 Dose: Not Given Documented By: Admin: 04/06/25 08:15 Dose: 15 ml Documented By: Admin: 04/05/25 21:04 Dose: 15 ml Documented By: Admin: 04/05/25 18:48 Dose: Not Given Documented By: RAFAL Clobazam (Clobazam 5 Mg Tab) 5 mg PO HS SWAPAN Stop: 05/05/25 20:59 Last Admin: 04/29/25 20:33 Dose: 5 mg Documented By: Admin: 04/28/25 20:11 Dose: 5 mg Documented By: heb Admin: 04/27/25 20:29 Dose: 5 mg Documented By: heb Admin: 04/26/25 20:27 Dose: 5 mg Documented By: heb Admin: 04/25/25 19:37 Dose: 5 mg Documented By: Admin: 04/24/25 20:38 Dose: 5 mg Documented By: K Admin: 04/23/25 20:23 Dose: 5 mg Documented By: Admin: 04/22/25 20:19 Dose: 5 mg Documented By: Admin: 04/21/25 20:46 Dose: 5 mg Documented By: Admin: 04/20/25 20:17 Dose: 5 mg Documented By: Admin: 04/19/25 20:03 Dose: 5 mg Documented By: Admin: 04/18/25 21:03 Dose: 5 mg Documented By: Admin: 04/17/25 21:51 Dose: 5 mg Documented By: Admin: 04/16/25 21:41 Dose: 5 mg Documented By: Admin: 04/15/25 22:21 Dose: 5 mg Documented By: Admin: 04/14/25 21:23 Dose: 5 mg Documented By: Admin: 04/13/25 20:41 Dose: 5 mg Documented By: AIR TESTER Admin: 04/12/25 20:35 Dose: 5 mg Documented By: Admin: 04/11/25 20:23 Dose: 5 mg Documented By: Admin: 04/10/25 21:47 Dose: Not Given Documented By: Admin: 04/09/25 21:37 Dose: 5 mg Documented By: Admin: 04/08/25 21:29 Dose: 5 mg Documented By: KSIhsan Admin: 04/07/25 20:21 Dose: 5 mg Documented By: KMMandy Admin: 04/06/25 20:22 Dose: 5 mg Documented By: KMMandy Admin: 04/05/25 21:27 Dose: 5 mg Documented By: JESSIE Hall (Austedo [Patient Own Med]) 1 each PO DAILY SWAPNA Stop: 05/06/25 08:59 Last Admin: 04/30/25 08:53 Dose: 1 each Documented By: caridad Admin: 04/29/25 09:52 Dose: 1 each Documented By: Admin: 04/28/25 10:57 Dose: 1 each Documented By: MARY ANNE Admin: 04/27/25 08:58 Dose: 1 each Documented By: MARY ANNE Admin: 04/26/25 08:42 Dose: 1 each Documented By: foreign Admin: 04/25/25 07:27 Dose: 1 each Documented By: Admin: 04/24/25 09:42 Dose: Not Given Documented By: foreign Admin: 04/23/25 09:06 Dose: 1 each Documented By: foreign Admin: 04/22/25 08:58 Dose: 1 each Documented By: MTJamey Admin: 04/21/25 10:08 Dose: 1 each Documented By: MTJamey Admin: 04/20/25 08:35 Dose: 1 each Documented By: Admin: 04/19/25 12:05 Dose: 1 each Documented By: Admin: 04/18/25 08:27 Dose: 1 each Documented By: Admin: 04/17/25 17:08 Dose: Not Given Documented By: Admin: 04/16/25 08:38 Dose: 1 each Documented By: Admin: 04/15/25 08:06 Dose: 1 each Documented By: prem Admin: 04/14/25 17:15 Dose: 1 each Documented By: prem Admin: 04/13/25 08:25 Dose: 1 each Documented By: Admin: 04/12/25 09:10 Dose: 1 each Documented By: Admin: 04/11/25 08:19 Dose: Not Given Documented By: Admin: 04/10/25 08:38 Dose: 1 each Documented By: cjk Admin: 04/09/25 08:29 Dose: Not Given Documented By: Admin: 04/08/25 08:43 Dose: 1 each Documented By: Admin: 04/07/25 09:04 Dose: 1 each Documented By: Admin: 04/06/25 08:19 Dose: 1 each Documented By: RAFAL Famotidine (Famotidine 40 Mg Tablet) 40 mg PO DAILY SWAPNA Stop: 05/06/25 08:59 Last Admin: 04/30/25 08:53 Dose: 40 mg Documented By: caridad Admin: 04/29/25 09:50 Dose: 40 mg Documented By: Admin: 04/28/25 10:56 Dose: 40 mg Documented By: Admin: 04/27/25 08:58 Dose: 40 mg Documented By: Admin: 04/26/25 08:42 Dose: 40 mg Documented By: cjk Admin: 04/25/25 07:20 Dose: 40 mg Documented By: SITE LEAD Admin: 04/24/25 12:43 Dose: Not Given Documented By: cjk Admin: 04/23/25 09:05 Dose: 40 mg Documented By: cjk Admin: 04/22/25 08:57 Dose: 40 mg Documented By: Admin: 04/21/25 10:08 Dose: 40 mg Documented By: Admin: 04/20/25 08:32 Dose: 40 mg Documented By: Admin: 04/19/25 08:55 Dose: 40 mg Documented By: Admin: 04/18/25 08:22 Dose: 40 mg Documented By: Admin: 04/17/25 12:41 Dose: 40 mg Documented By: Admin: 04/16/25 08:37 Dose: 40 mg Documented By: Admin: 04/15/25 08:10 Dose: 40 mg Documented By: prem Admin: 04/14/25 16:55 Dose: 40 mg Documented By: prem Admin: 04/13/25 08:25 Dose: 40 mg Documented By: Admin: 04/12/25 09:10 Dose: 40 mg Documented By: Admin: 04/11/25 08:19 Dose: Not Given Documented By: Admin: 04/10/25 08:38 Dose: 40 mg Documented By: cjk Admin: 04/09/25 08:29 Dose: Not Given Documented By: LR Admin: 04/08/25 08:43 Dose: 40 mg Documented By: Admin: 04/07/25 09:07 Dose: Not Given Documented By: Admin: 04/06/25 08:17 Dose: 40 mg Documented By: CS Lactobacillus Acidophilus (Lactobacillus Acidophilus 1 Gm Pack) 1 packet PO TIDM SWAPNA Stop: 05/16/25 11:59 Last Admin: 04/30/25 12:28 Dose: 1 packet Documented By: caridad Admin: 04/30/25 08:51 Dose: 1 packet Documented By: caridad Admin: 04/29/25 17:05 Dose: 1 packet Documented By: Admin: 04/29/25 13:19 Dose: 1 packet Documented By: Admin: 04/29/25 09:52 Dose: 1 packet Documented By: Admin: 04/28/25 17:38 Dose: 1 packet Documented By: Admin: 04/28/25 14:00 Dose: 1 packet Documented By: Admin: 04/28/25 10:49 Dose: 1 packet Documented By: Admin: 04/27/25 17:17 Dose: 1 packet Documented By: Admin: 04/27/25 13:31 Dose: 1 packet Documented By: Admin: 04/27/25 08:56 Dose: 1 packet Documented By: Admin: 04/26/25 17:56 Dose: 1 packet Documented By: cjk Admin: 04/26/25 12:40 Dose: 1 packet Documented By: cjk Admin: 04/26/25 08:42 Dose: 1 packet Documented By: cjk Admin: 04/25/25 17:44 Dose: Not Given Documented By: SITE LEAD Admin: 04/25/25 12:43 Dose: Not Given Documented By: SITE LEAD Admin: 04/25/25 07:18 Dose: 1 packet Documented By: SITE LEAD Admin: 04/24/25 16:51 Dose: 1 packet Documented By: cjk Admin: 04/24/25 13:17 Dose: Not Given Documented By: foreign Admin: 04/24/25 12:41 Dose: Not Given Documented By: foreign Admin: 04/23/25 17:37 Dose: 1 packet Documented By: foreign Admin: 04/23/25 13:03 Dose: 1 packet Documented By: foreign Admin: 04/23/25 09:04 Dose: 1 packet Documented By: adilenek Admin: 04/22/25 17:40 Dose: 1 packet Documented By: Admin: 04/22/25 12:34 Dose: 1 packet Documented By: Admin: 04/22/25 08:56 Dose: 1 packet Documented By: Admin: 04/21/25 18:14 Dose: 1 packet Documented By: Admin: 04/21/25 13:17 Dose: 1 packet Documented By: Admin: 04/21/25 10:07 Dose: 1 packet Documented By: Admin: 04/20/25 17:47 Dose: 1 packet Documented By: [facility] Admin: 04/20/25 12:37 Dose: 1 packet Documented By: Admin: 04/20/25 08:32 Dose: 1 packet Documented By: Admin: 04/19/25 16:31 Dose: 1 packet Documented By: S Admin: 04/19/25 11:04 Dose: Not Given Documented By: Admin: 04/19/25 08:56 Dose: 1 packet Documented By: Admin: 04/18/25 16:13 Dose: 1 packet Documented By: Admin: 04/18/25 12:45 Dose: 1 packet Documented By: Admin: 04/18/25 08:26 Dose: 1 packet Documented By: Admin: 04/17/25 17:09 Dose: 1 packet Documented By: Admin: 04/17/25 12:35 Dose: 1 packet Documented By: Admin: 04/17/25 12:35 Dose: Not Given Documented By: Admin: 04/16/25 16:28 Dose: 1 packet Documented By: Admin: 04/16/25 11:58 Dose: 1 packet Documented By: EW Lamotrigine (Lamotrigine 25 Mg Tab) 50 mg PO [facility]; Protocol Stop: 05/05/25 20:59 Last Admin: 04/30/25 08:52 Dose: 50 mg Documented By: caridad Admin: 04/29/25 20:22 Dose: 50 mg Documented By: Admin: 04/29/25 09:48 Dose: 50 mg Documented By: Admin: 04/28/25 20:11 Dose: 50 mg Documented By: heb Admin: 04/28/25 10:50 Dose: 50 mg Documented By: Admin: 04/27/25 20:19 Dose: 50 mg Documented By: heb Admin: 04/27/25 08:59 Dose: 50 mg Documented By: Admin: 04/26/25 20:23 Dose: 50 mg Documented By: heb Admin: 04/26/25 08:41 Dose: 50 mg Documented By: foreign Admin: 04/25/25 19:37 Dose: 50 mg Documented By: K Admin: 04/25/25 07:25 Dose: 50 mg Documented By: SITE LEAD Admin: 04/24/25 20:38 Dose: 50 mg Documented By: Admin: 04/24/25 09:10 Dose: 50 mg Documented By: adilenek Admin: 04/23/25 20:23 Dose: 50 mg Documented By: K Admin: 04/23/25 09:05 Dose: 50 mg Documented By: adilenek Admin: 04/22/25 20:19 Dose: 50 mg Documented By: K Admin: 04/22/25 08:57 Dose: 50 mg Documented By: MTJamey Admin: 04/21/25 20:47 Dose: 50 mg Documented By: Admin: 04/21/25 10:07 Dose: 50 mg Documented By: Admin: 04/20/25 20:15 Dose: 50 mg Documented By: Admin: 04/20/25 08:33 Dose: 50 mg Documented By: Admin: 04/19/25 20:04 Dose: 50 mg Documented By: Admin: 04/19/25 08:54 Dose: 50 mg Documented By: Admin: 04/18/25 21:04 Dose: 50 mg Documented By: Admin: 04/18/25 08:23 Dose: 50 mg Documented By: Admin: 04/17/25 20:27 Dose: 50 mg Documented By: Admin: 04/17/25 12:41 Dose: 50 mg Documented By: Admin: 04/16/25 22:04 Dose: 50 mg Documented By: mcl Admin: 04/16/25 08:35 Dose: 50 mg Documented By: Admin: 04/15/25 22:05 Dose: 25 mg Documented By: Admin: 04/15/25 08:07 Dose: 50 mg Documented By: prem Admin: 04/14/25 21:13 Dose: 50 mg Documented By: Admin: 04/14/25 16:55 Dose: 50 mg Documented By: prem Admin: 04/13/25 20:41 Dose: 50 mg Documented By: Admin: 04/13/25 08:25 Dose: 50 mg Documented By: TLJamey Admin: 04/12/25 20:36 Dose: 50 mg Documented By: Admin: 04/12/25 09:10 Dose: 50 mg Documented By: Admin: 04/11/25 20:22 Dose: 50 mg Documented By: Admin: 04/11/25 08:11 Dose: 50 mg Documented By: Admin: 04/10/25 21:47 Dose: Not Given Documented By: Admin: 04/10/25 08:38 Dose: 50 mg Documented By: SITE LEAD Admin: 04/09/25 21:37 Dose: 50 mg Documented By: Admin: 04/09/25 08:29 Dose: Not Given Documented By: LR Admin: 04/08/25 20:50 Dose: 50 mg Documented By: Admin: 04/08/25 08:43 Dose: 50 mg Documented By: Admin: 04/07/25 20:17 Dose: 50 mg Documented By: Admin: 04/07/25 09:03 Dose: 50 mg Documented By: Admin: 04/06/25 20:15 Dose: 50 mg Documented By: Admin: 04/06/25 08:16 Dose: 50 mg Documented By: Admin: 04/05/25 21:04 Dose: 50 mg Documented By: PNM Lamotrigine (Lamotrigine 100 Mg Tab) 200 mg PO [facility]; Protocol Stop: 05/05/25 20:59 Last Admin: 04/30/25 08:52 Dose: 200 mg Documented By: caridad Admin: 04/29/25 20:21 Dose: 200 mg Documented By: Admin: 04/29/25 09:51 Dose: 200 mg Documented By: Admin: 04/28/25 20:11 Dose: 200 mg Documented By: heb Admin: 04/28/25 10:52 Dose: 200 mg Documented By: Admin: 04/27/25 20:22 Dose: 200 mg Documented By: heb Admin: 04/27/25 08:57 Dose: 200 mg Documented By: Admin: 04/26/25 20:24 Dose: 200 mg Documented By: heb Admin: 04/26/25 08:41 Dose: 200 mg Documented By: cjk Admin: 04/25/25 19:37 Dose: 200 mg Documented By: K Admin: 04/25/25 07:25 Dose: 200 mg Documented By: SITE LEAD Admin: 04/24/25 20:38 Dose: 200 mg Documented By: Admin: 04/24/25 09:10 Dose: 200 mg Documented By: cjk Admin: 04/23/25 20:23 Dose: 200 mg Documented By: Admin: 04/23/25 09:04 Dose: 200 mg Documented By: cjk Admin: 04/22/25 20:19 Dose: 200 mg Documented By: Admin: 04/22/25 08:58 Dose: 200 mg Documented By: Admin: 04/21/25 20:47 Dose: 200 mg Documented By: Admin: 04/21/25 10:07 Dose: 200 mg Documented By: Admin: 04/20/25 20:15 Dose: 200 mg Documented By: Admin: 04/20/25 08:33 Dose: 200 mg Documented By: Admin: 04/19/25 20:04 Dose: 200 mg Documented By: Admin: 04/19/25 12:04 Dose: 200 mg Documented By: Admin: 04/18/25 21:04 Dose: 200 mg Documented By: Admin: 04/18/25 08:22 Dose: 200 mg Documented By: Admin: 04/17/25 20:27 Dose: 200 mg Documented By: Admin: 04/17/25 12:42 Dose: 200 mg Documented By: Admin: 04/16/25 21:58 Dose: 200 mg Documented By: mcl Admin: 04/16/25 08:37 Dose: 200 mg Documented By: Admin: 04/15/25 22:46 Dose: Not Given Documented By: Admin: 04/15/25 11:01 Dose: 200 mg Documented By: prem Admin: 04/14/25 21:13 Dose: 200 mg Documented By: Admin: 04/14/25 16:54 Dose: 200 mg Documented By: prem Admin: 04/13/25 20:41 Dose: 200 mg Documented By: Admin: 04/13/25 08:25 Dose: 200 mg Documented By: Admin: 04/12/25 20:36 Dose: 200 mg Documented By: Admin: 04/12/25 09:10 Dose: 200 mg Documented By: Admin: 04/11/25 20:22 Dose: 200 mg Documented By: Admin: 04/11/25 08:10 Dose: 200 mg Documented By: Admin: 04/10/25 21:47 Dose: Not Given Documented By: Admin: 04/10/25 08:37 Dose: 200 mg Documented By: adilenek Admin: 04/09/25 21:37 Dose: 200 mg Documented By: Admin: 04/09/25 08:29 Dose: Not Given Documented By: LR Admin: 04/08/25 20:50 Dose: 200 mg Documented By: Admin: 04/08/25 08:43 Dose: 200 mg Documented By: Admin: 04/07/25 20:17 Dose: 200 mg Documented By: Admin: 04/07/25 09:02 Dose: 200 mg Documented By: Admin: 04/06/25 20:16 Dose: 200 mg Documented By: Admin: 04/06/25 08:16 Dose: 200 mg Documented By: Admin: 04/05/25 21:04 Dose: 200 mg Documented By: PNM Levetiracetam (Levetiracetam 500 Mg Tab) 1,500 mg PO BID SWAPNA Stop: 05/05/25 20:59 Last Admin: 04/30/25 08:51 Dose: 1,500 mg Documented By: caridad Admin: 04/29/25 20:22 Dose: 1,500 mg Documented By: Admin: 04/29/25 09:49 Dose: 1,500 mg Documented By: Admin: 04/28/25 20:11 Dose: 1,500 mg Documented By: heb Admin: 04/28/25 11:01 Dose: 1,500 mg Documented By: Admin: 04/27/25 20:21 Dose: 1,500 mg Documented By: heb Admin: 04/27/25 08:56 Dose: 1,500 mg Documented By: Admin: 04/26/25 20:24 Dose: 1,500 mg Documented By: heb Admin: 04/26/25 08:41 Dose: 1,500 mg Documented By: cjk Admin: 04/25/25 19:37 Dose: 1,500 mg Documented By: Admin: 04/25/25 07:19 Dose: 1,500 mg Documented By: SITE LEAD Admin: 04/24/25 20:38 Dose: 1,500 mg Documented By: Admin: 04/24/25 09:08 Dose: 1,500 mg Documented By: cjk Admin: 04/15/25 08:13 Dose: Not Given Documented By: prem Admin: 04/14/25 21:13 Dose: Not Given Documented By: Admin: 04/11/25 20:40 Dose: Not Given Documented By: Admin: 04/11/25 08:09 Dose: 1,500 mg Documented By: Admin: 04/10/25 21:47 Dose: Not Given Documented By: Admin: 04/10/25 08:36 Dose: 1,500 mg Documented By: cjk Admin: 04/09/25 21:36 Dose: 1,500 mg Documented By: Admin: 04/09/25 08:29 Dose: Not Given Documented By: LR Admin: 04/08/25 20:49 Dose: 1,500 mg Documented By: Admin: 04/08/25 08:43 Dose: 1,500 mg Documented By: Admin: 04/07/25 20:16 Dose: 1,500 mg Documented By: Admin: 04/07/25 09:01 Dose: 1,500 mg Documented By: Admin: 04/06/25 20:18 Dose: 1,500 mg Documented By: Admin: 04/06/25 08:15 Dose: 1,500 mg Documented By: Admin: 04/05/25 21:04 Dose: 1,500 mg Documented By: PNM Metoprolol Succinate (Metoprolol Succ 25mg Ext Rel Tab) 25 mg PO QAM SWAPNA Stop: 05/12/25 08:59 Last Admin: 04/30/25 08:52 Dose: 25 mg Documented By: caridad Admin: 04/29/25 09:51 Dose: 25 mg Documented By: Admin: 04/28/25 11:02 Dose: 25 mg Documented By: MARY ANNE Admin: 04/27/25 08:56 Dose: 25 mg Documented By: MARY ANNE Admin: 04/26/25 08:42 Dose: 25 mg Documented By: adilenek Admin: 04/25/25 07:20 Dose: 25 mg Documented By: Admin: 04/24/25 09:09 Dose: 25 mg Documented By: foreign Admin: 04/23/25 09:05 Dose: 25 mg Documented By: adilenek Admin: 04/22/25 08:57 Dose: 25 mg Documented By: Admin: 04/21/25 10:07 Dose: 25 mg Documented By: Admin: 04/20/25 08:32 Dose: 25 mg Documented By: Admin: 04/19/25 08:55 Dose: 25 mg Documented By: Admin: 04/18/25 08:21 Dose: 25 mg Documented By: Admin: 04/17/25 12:43 Dose: 25 mg Documented By: MARY ANNE Admin: 04/16/25 08:39 Dose: 25 mg Documented By: Admin: 04/15/25 08:10 Dose: 25 mg Documented By: prem Admin: 04/14/25 16:56 Dose: 25 mg Documented By: prem Admin: 04/13/25 08:25 Dose: 25 mg Documented By: Admin: 04/12/25 09:10 Dose: 25 mg Documented By: ADRIANNE Ondansetron HCl (Ondansetron Inj 2 Mg/Ml 2 Ml Vial) 4 mg IV Q6H PRN PRN Reason: Nausea Stop: 05/05/25 16:42 Last Admin: 04/25/25 11:25 Dose: 4 mg Documented By: BRIAN Perphenazine (Perphenazine 2 Mg Tab) 1 mg PO QAM SWAPNA Stop: 05/07/25 08:59 Last Admin: 04/30/25 08:53 Dose: 1 mg Documented By: caridad Admin: 04/29/25 09:50 Dose: 1 mg Documented By: Admin: 04/28/25 11:02 Dose: 1 mg Documented By: Admin: 04/27/25 08:58 Dose: 1 mg Documented By: Admin: 04/26/25 08:41 Dose: 1 mg Documented By: cjk Admin: 04/25/25 07:22 Dose: 1 mg Documented By: SITE LEAD Admin: 04/24/25 09:09 Dose: 1 mg Documented By: cjk Admin: 04/23/25 09:05 Dose: 1 mg Documented By: cjk Admin: 04/22/25 08:57 Dose: 1 mg Documented By: Admin: 04/21/25 10:08 Dose: 1 mg Documented By: Admin: 04/20/25 08:33 Dose: 1 mg Documented By: Admin: 04/19/25 08:54 Dose: 1 mg Documented By: Admin: 04/18/25 08:24 Dose: 1 mg Documented By: Admin: 04/17/25 12:43 Dose: 1 mg Documented By: MARY ANNE Admin: 04/16/25 08:36 Dose: 1 mg Documented By: Admin: 04/15/25 08:06 Dose: 1 mg Documented By: prem Admin: 04/14/25 17:16 Dose: Not Given Documented By: prem Admin: 04/13/25 08:25 Dose: 1 mg Documented By: TLJamey Admin: 04/12/25 09:10 Dose: 1 mg Documented By: TLJamey Admin: 04/11/25 08:19 Dose: Not Given Documented By: Admin: 04/10/25 08:37 Dose: 1 mg Documented By: foreign Admin: 04/09/25 08:29 Dose: Not Given Documented By: Admin: 04/08/25 08:43 Dose: 1 mg Documented By: Admin: 04/07/25 09:00 Dose: 1 mg Documented By: RAFAL Perphenazine (Perphenazine 2 Mg Tab) 3 mg PO HS SWAPNA Stop: 05/06/25 20:59 Last Admin: 04/29/25 20:34 Dose: 3 mg Documented By: Admin: 04/28/25 20:11 Dose: 3 mg Documented By: heb Admin: 04/27/25 20:19 Dose: 3 mg Documented By: heb Admin: 04/26/25 20:25 Dose: 3 mg Documented By: heb Admin: 04/25/25 19:38 Dose: 3 mg Documented By: Admin: 04/24/25 20:38 Dose: 3 mg Documented By: Admin: 04/23/25 20:24 Dose: 3 mg Documented By: Admin: 04/22/25 20:19 Dose: 3 mg Documented By: Admin: 04/21/25 20:47 Dose: 3 mg Documented By: Admin: 04/20/25 20:15 Dose: 3 mg Documented By: Admin: 04/19/25 20:04 Dose: 3 mg Documented By: Admin: 04/18/25 21:04 Dose: 3 mg Documented By: Admin: 04/17/25 20:25 Dose: 3 mg Documented By: Admin: 04/16/25 22:02 Dose: 3 mg Documented By: mcl Admin: 04/15/25 22:46 Dose: Not Given Documented By: KAJakub Admin: 04/14/25 21:13 Dose: 3 mg Documented By: Admin: 04/13/25 20:42 Dose: 3 mg Documented By: Admin: 04/12/25 20:37 Dose: 3 mg Documented By: Admin: 04/11/25 20:25 Dose: 3 mg Documented By: JAMandy Admin: 04/10/25 21:47 Dose: Not Given Documented By: Admin: 04/09/25 21:37 Dose: 3 mg Documented By: Admin: 04/08/25 20:51 Dose: 3 mg Documented By: Admin: 04/07/25 20:19 Dose: 3 mg Documented By: Admin: 04/06/25 20:20 Dose: 3 mg Documented By: KML Polyethylene Glycol (Polyethylene (Miralax) 17 Gm Pack) 17 gm PO QAM SWAPNA Stop: 05/06/25 08:59 Last Admin: 04/30/25 08:51 Dose: 17 gm Documented By: caridad Admin: 04/29/25 09:48 Dose: 17 gm Documented By: Admin: 04/28/25 11:05 Dose: Not Given Documented By: Admin: 04/27/25 08:59 Dose: Not Given Documented By: Admin: 04/26/25 08:42 Dose: 17 gm Documented By: cjk Admin: 04/25/25 07:30 Dose: 17 gm Documented By: SITE LEAD Admin: 04/24/25 09:08 Dose: 17 gm Documented By: cjk Admin: 04/23/25 09:22 Dose: 17 gm Documented By: cjk Admin: 04/22/25 09:00 Dose: 17 gm Documented By: Admin: 04/21/25 10:08 Dose: Not Given Documented By: Admin: 04/20/25 08:36 Dose: Not Given Documented By: Admin: 04/19/25 09:12 Dose: 17 gm Documented By: Admin: 04/18/25 08:44 Dose: 17 gm Documented By: Admin: 04/17/25 12:38 Dose: 17 gm Documented By: Admin: 04/16/25 08:40 Dose: Not Given Documented By: Admin: 04/15/25 08:17 Dose: 17 gm Documented By: prem Admin: 04/14/25 14:17 Dose: Not Given Documented By: prem Admin: 04/13/25 08:25 Dose: Not Given Documented By: Admin: 04/12/25 09:10 Dose: 17 gm Documented By: Admin: 04/11/25 08:17 Dose: Not Given Documented By: Admin: 04/10/25 08:38 Dose: 17 gm Documented By: adilenek Admin: 04/09/25 08:29 Dose: 17 gm Documented By: LR Admin: 04/08/25 08:44 Dose: 17 gm Documented By: Admin: 04/07/25 09:07 Dose: Not Given Documented By: Admin: 04/06/25 09:14 Dose: 17 gm Documented By: CS Potassium Chloride (Potassium Chloride 10 Meq Tabcr) 20 meq PO DAILY SWAPNA Stop: 05/28/25 08:59 Last Admin: 04/30/25 08:51 Dose: 20 meq Documented By: caridad Admin: 04/29/25 09:48 Dose: 20 meq Documented By: Admin: 04/28/25 11:04 Dose: 20 meq Documented By: MARY ANNE Quetiapine Fumarate (Quetiapine Fumarate 25 Mg Tablet) 50 mg PO QAM SWAPNA Stop: 05/06/25 08:59 Last Admin: 04/30/25 08:52 Dose: 50 mg Documented By: caridad Admin: 04/29/25 09:50 Dose: 50 mg Documented By: Admin: 04/28/25 11:03 Dose: 50 mg Documented By: Admin: 04/27/25 08:57 Dose: 50 mg Documented By: Admin: 04/26/25 08:42 Dose: 50 mg Documented By: cjk Admin: 04/25/25 07:28 Dose: 50 mg Documented By: SITE LEAD Admin: 04/24/25 09:10 Dose: 50 mg Documented By: cjk Admin: 04/23/25 09:05 Dose: 50 mg Documented By: cjk Admin: 04/22/25 08:57 Dose: 50 mg Documented By: Admin: 04/21/25 10:07 Dose: 50 mg Documented By: Admin: 04/20/25 08:33 Dose: 50 mg Documented By: Admin: 04/19/25 08:52 Dose: 50 mg Documented By: Admin: 04/18/25 08:22 Dose: 50 mg Documented By: Admin: 04/17/25 12:44 Dose: 50 mg Documented By: Admin: 04/16/25 08:39 Dose: 50 mg Documented By: Admin: 04/15/25 08:34 Dose: 50 mg Documented By: prem Admin: 04/14/25 16:53 Dose: 50 mg Documented By: prem Admin: 04/13/25 08:25 Dose: 50 mg Documented By: Admin: 04/12/25 09:10 Dose: 50 mg Documented By: Admin: 04/11/25 08:19 Dose: Not Given Documented By: Admin: 04/10/25 08:36 Dose: 50 mg Documented By: adilenek Admin: 04/09/25 08:29 Dose: Not Given Documented By: LR Admin: 04/08/25 08:43 Dose: 50 mg Documented By: Admin: 04/07/25 09:05 Dose: 50 mg Documented By: Admin: 04/06/25 08:17 Dose: 50 mg Documented By: RAFAL Quetiapine Fumarate (Quetiapine Fumarate 200 Mg Tab) 200 mg PO HS SWAPNA Stop: 05/05/25 20:59 Last Admin: 04/29/25 20:36 Dose: 200 mg Documented By: Admin: 04/28/25 20:15 Dose: 200 mg Documented By: heb Admin: 04/27/25 20:21 Dose: 200 mg Documented By: heb Admin: 04/26/25 20:27 Dose: 200 mg Documented By: heb Admin: 04/25/25 19:39 Dose: 200 mg Documented By: Admin: 04/24/25 20:38 Dose: 200 mg Documented By: Admin: 04/23/25 20:23 Dose: 200 mg Documented By: Admin: 04/22/25 20:19 Dose: 200 mg Documented By: Admin: 04/21/25 20:48 Dose: 200 mg Documented By: Admin: 04/20/25 20:48 Dose: 200 mg Documented By: gardening instructor: 04/19/25 20:05 Dose: 200 mg Documented By: Admin: 04/18/25 21:03 Dose: 200 mg Documented By: Admin: 04/17/25 20:25 Dose: 200 mg Documented By: Admin: 04/16/25 22:57 Dose: 200 mg Documented By: Admin: 04/15/25 22:04 Dose: 200 mg Documented By: Admin: 04/14/25 21:14 Dose: 200 mg Documented By: Admin: 04/13/25 22:04 Dose: 200 mg Documented By: Admin: 04/12/25 20:37 Dose: 200 mg Documented By: Admin: 04/11/25 20:26 Dose: 200 mg Documented By: Admin: 04/10/25 21:47 Dose: Not Given Documented By: Admin: 04/09/25 21:36 Dose: 200 mg Documented By: Admin: 04/08/25 20:49 Dose: 200 mg Documented By: Admin: 04/07/25 20:20 Dose: 200 mg Documented By: Admin: 04/06/25 20:20 Dose: 200 mg Documented By: Admin: 04/05/25 21:04 Dose: 200 mg Documented By: PNM Sertraline HCl (Sertraline Hcl 100 Mg Tablet) 100 mg PO QAM SWAPNA Stop: 05/06/25 08:59 Last Admin: 04/30/25 08:52 Dose: 100 mg Documented By: caridad Admin: 04/29/25 09:50 Dose: 100 mg Documented By: Admin: 04/28/25 11:03 Dose: 100 mg Documented By: Admin: 04/27/25 08:57 Dose: 100 mg Documented By: Admin: 04/26/25 08:42 Dose: 100 mg Documented By: cjk Admin: 04/25/25 07:21 Dose: 100 mg Documented By: SITE LEAD Admin: 04/24/25 09:09 Dose: 100 mg Documented By: cjk Admin: 04/23/25 09:05 Dose: 100 mg Documented By: cjk Admin: 04/22/25 08:58 Dose: 100 mg Documented By: Admin: 04/21/25 10:08 Dose: 100 mg Documented By: Admin: 04/20/25 08:33 Dose: 100 mg Documented By: Admin: 04/19/25 08:55 Dose: 100 mg Documented By: Admin: 04/18/25 08:26 Dose: 100 mg Documented By: Admin: 04/17/25 12:45 Dose: 100 mg Documented By: Admin: 04/16/25 08:40 Dose: 100 mg Documented By: Admin: 04/15/25 08:09 Dose: 100 mg Documented By: prem Admin: 04/14/25 17:17 Dose: 100 mg Documented By: prem Admin: 04/13/25 08:25 Dose: 100 mg Documented By: Admin: 04/12/25 09:10 Dose: 100 mg Documented By: Admin: 04/11/25 08:19 Dose: Not Given Documented By: Admin: 04/10/25 08:36 Dose: 100 mg Documented By: cjk Admin: 04/09/25 08:29 Dose: Not Given Documented By: LR Admin: 04/08/25 08:43 Dose: 100 mg Documented By: Admin: 04/07/25 09:04 Dose: 100 mg Documented By: Admin: 04/06/25 08:18 Dose: 100 mg Documented By: CS Coding Level of Care Code 70098 IN/OBS CONSULT LVL 3,45M Diagnoses Intellectual disability F79 Weakness R53.1 Nonverbal R47.01
--- NOTE | 2025-04-30 13:12 | Hospitalist Progress Note ---
Date of Service April 30, 2025 Assessment & Plan (1) Nephrolithiasis: (2) Ureteral stent present: (3) Nonverbal: (4) Complicated UTI (urinary tract infection): (5) Severe intellectual disability: (6) Fatty (change of) liver, not elsewhere classified: (7) Tremor, unspecified: Plan 59 yo female with pmhx of severe intellectual disability c/b epilepsy, nonverbal status, fecal/urinary incontinence, s/p recent urethral stent placement, fatty liver disease, GERD, OCD, IAN, who presents for a fall from the [facility]. #Fall #Epilepsy #Breakthrough seizures -unclear cause of fall from bed, likely mechanical in nature -per caregiver patient currently at baseline, concern is that UTI cause fall and they do not want her to become septic -had breakthrough seizures on 04/11, cod monica called, discussed with neurology Plan: -gentle hydration -recs followed per neurology -neurology consult, appreciate recs for consideration of seizure and polypharmacy -decreased dose of perphenazine -Awaiting rehab/retirement facility placement -awaiting [facility], office of aging assessment -psychiatric consult placed per need for placement, appreciate recs -medically stable for discharge at this time #Severe Bacteriuria #Ureteral Stent -unclear if patient has symptoms, hemodynamically stable at this time, no sepsis criteria -UA appears to be significantly infected in setting of chronic colonization -s/p stent removal and placement this admission Plan: -urology consult, appreciate recs -follow up outpatient -ID consult, appreciate recs -given fluconazole -doing well, monitor #Abnormal CT Finding There is a new heterogeneous area of hypodensity in the periphery of the right lobe of the liver measuring 2.4 x 1.7 x 2.2 cm. -Further work up, management, and ff up as outpatient #Lateral T Wave Inversions -new from 2017 -echo with need for follow up outpatient #Severe Intellectual Disability #OCD #IAN -continue home meds austedo xr, perphenazine (decreased dose-3 mg at bedtime, 1 mg in the morning), seroquel, zoloft -continue miralax, bisacodyl suppository prn for constipation, -mouth care ordered -continue keppra and lamictal I spent a total of 35 minutes in direct patient care, including [id number] time with the patient and/or family, reviewing medical records, ordering and reviewing diagnostic tests, and coordinating care with other healthcare providers. This time includes: history taking, physical examination, medical decision making, counseling, ECG interpretation, imaging interpretation, lab interpretation, orders, and education, excluding time spent in the performance of separately billed services. Admission and Anticipated Discharge Date Admission Date: April 05, 2025 Subjective Patient seen and examined at bedside. Caregiver from [facility] present, discussed plan of care and answered questions to best of ability. He was appreciative of the update. Review of Systems Review of Systems: -unable to answer due to mental status Physical Exam Physical Exam: Gen: A&O 0 NAD HEENT: NCAT, EOMI, not icteric. External ears normal. No rhinorrhea. normal mucous membranes. Neck: Supple, full range of motion, no observable masses, No meningeal sign. Lungs: No Respiratory distress. CV: RRR, no edema. Abdomen: Soft, nondistended, No rebound tenderness. MSK: No joint swelling, no redness. Skin: No rashes, petechiae, lesions. Neuro: chronic tremors bilaterally, baseline per caregiver Results & Data Results & Data Vital Signs (Past 12 Hours) Vital Signs Temp Pulse Pulse Resp BP BP Pulse Ox 04/30/25 11:31 36.6 C 63 20 111/67 96 04/30/25 07:47 36.7 C 61 12 121/69 92 04/30/25 07:10 58 L 04/30/25 04:22 36.5 C 54 L 20 132/72 97 O2 Del Method 04/30/25 11:31 Room Air 04/30/25 07:47 Room Air 04/30/25 07:10 04/30/25 04:22 Room Air Medications Administered Chlorhexidine Gluconate (Chlorhexidine Gluconate 0.12% 480 Ml) 15 ml MT TID SWAPNA Stop: 05/05/25 17:14 Last Admin: 04/30/25 08:53 Dose: 15 ml Documented By: caridad Admin: 04/29/25 20:20 Dose: 15 ml Documented By: Admin: 04/29/25 13:19 Dose: 15 ml Documented By: Admin: 04/29/25 09:52 Dose: 15 ml Documented By: Admin: 04/28/25 20:12 Dose: 15 ml Documented By: frandy Admin: 04/28/25 14:00 Dose: 15 ml Documented By: Admin: 04/28/25 10:57 Dose: 15 ml Documented By: Admin: 04/27/25 20:22 Dose: 15 ml Documented By: heb Admin: 04/27/25 13:31 Dose: 15 ml Documented By: Admin: 04/27/25 09:13 Dose: 15 ml Documented By: Admin: 04/26/25 20:27 Dose: 15 ml Documented By: heb Admin: 04/26/25 13:41 Dose: Not Given Documented By: cjk Admin: 04/26/25 08:42 Dose: 15 ml Documented By: cjk Admin: 04/25/25 19:37 Dose: 15 ml Documented By: K Admin: 04/25/25 14:14 Dose: Not Given Documented By: FIELD OPERATIONS COORDINATOR Admin: 04/25/25 07:26 Dose: 15 ml Documented By: FIELD OPERATIONS COORDINATOR Admin: 04/24/25 20:38 Dose: 15 ml Documented By: K Admin: 04/24/25 12:03 Dose: Not Given Documented By: cjk Admin: 04/24/25 09:42 Dose: Not Given Documented By: cjk Admin: 04/23/25 20:23 Dose: 15 ml Documented By: Admin: 04/23/25 12:52 Dose: Not Given Documented By: cjk Admin: 04/23/25 09:29 Dose: Not Given Documented By: cjk Admin: 04/22/25 20:19 Dose: 15 ml Documented By: Admin: 04/22/25 14:38 Dose: Not Given Documented By: Admin: 04/22/25 08:58 Dose: 15 ml Documented By: Admin: 04/21/25 20:46 Dose: 15 ml Documented By: Admin: 04/21/25 13:17 Dose: 15 ml Documented By: Admin: 04/21/25 09:32 Dose: 15 ml Documented By: Admin: 04/20/25 20:15 Dose: 15 ml Documented By: Admin: 04/20/25 14:15 Dose: 15 ml Documented By: Admin: 04/20/25 08:35 Dose: 15 ml Documented By: Admin: 04/19/25 20:03 Dose: 15 ml Documented By: Admin: 04/19/25 14:28 Dose: 15 ml Documented By: Admin: 04/19/25 09:07 Dose: 15 ml Documented By: Admin: 04/18/25 21:05 Dose: 15 ml Documented By: Admin: 04/18/25 16:12 Dose: 15 ml Documented By: Admin: 04/18/25 08:26 Dose: 15 ml Documented By: Admin: 04/17/25 20:29 Dose: 15 ml Documented By: Admin: 04/17/25 16:13 Dose: 15 ml Documented By: Admin: 04/17/25 12:35 Dose: Not Given Documented By: Admin: 04/16/25 22:04 Dose: 15 ml Documented By: mcl Admin: 04/16/25 15:59 Dose: Not Given Documented By: Admin: 04/16/25 08:38 Dose: 15 ml Documented By: Admin: 04/15/25 22:06 Dose: 15 ml Documented By: Admin: 04/15/25 12:45 Dose: Not Given Documented By: prem Admin: 04/15/25 08:12 Dose: Not Given Documented By: prem Admin: 04/14/25 21:30 Dose: Not Given Documented By: Admin: 04/14/25 14:28 Dose: Not Given Documented By: prem Admin: 04/14/25 10:21 Dose: Not Given Documented By: prem Admin: 04/13/25 20:42 Dose: 15 ml Documented By: [employer] [employer] Admin: 04/13/25 13:48 Dose: 15 ml Documented By: Admin: 04/13/25 08:25 Dose: 15 ml Documented By: Admin: 04/12/25 20:35 Dose: 15 ml Documented By: Admin: 04/12/25 15:24 Dose: 15 ml Documented By: Admin: 04/12/25 08:20 Dose: 15 ml Documented By: Admin: 04/11/25 20:39 Dose: Not Given Documented By: Admin: 04/11/25 13:09 Dose: Not Given Documented By: Admin: 04/11/25 08:17 Dose: Not Given Documented By: Admin: 04/10/25 21:40 Dose: Not Given Documented By: Admin: 04/10/25 14:49 Dose: Not Given Documented By: cjk Admin: 04/10/25 08:38 Dose: 15 ml Documented By: cjk Admin: 04/09/25 21:26 Dose: Not Given Documented By: Admin: 04/09/25 13:23 Dose: Not Given Documented By: LR Admin: 04/09/25 08:14 Dose: Not Given Documented By: LR Admin: 04/08/25 20:48 Dose: Not Given Documented By: Admin: 04/08/25 13:17 Dose: Not Given Documented By: Admin: 04/08/25 08:44 Dose: Not Given Documented By: Admin: 04/07/25 20:16 Dose: 15 ml Documented By: Admin: 04/07/25 13:30 Dose: Not Given Documented By: Admin: 04/07/25 09:07 Dose: Not Given Documented By: Admin: 04/06/25 20:14 Dose: 15 ml Documented By: Admin: 04/06/25 13:28 Dose: Not Given Documented By: Admin: 04/06/25 08:15 Dose: 15 ml Documented By: Admin: 04/05/25 21:04 Dose: 15 ml Documented By: Admin: 04/05/25 18:48 Dose: Not Given Documented By: RAFAL Clobazam (Clobazam 5 Mg Tab) 5 mg PO HS [facility] Stop: 05/05/25 20:59 Last Admin: 04/29/25 20:33 Dose: 5 mg Documented By: Admin: 04/28/25 20:11 Dose: 5 mg Documented By: heb Admin: 04/27/25 20:29 Dose: 5 mg Documented By: heb Admin: 04/26/25 20:27 Dose: 5 mg Documented By: heb Admin: 04/25/25 19:37 Dose: 5 mg Documented By: Admin: 04/24/25 20:38 Dose: 5 mg Documented By: Admin: 04/23/25 20:23 Dose: 5 mg Documented By: Admin: 04/22/25 20:19 Dose: 5 mg Documented By: Admin: 04/21/25 20:46 Dose: 5 mg Documented By: Admin: 04/20/25 20:17 Dose: 5 mg Documented By: Admin: 04/19/25 20:03 Dose: 5 mg Documented By: Admin: 04/18/25 21:03 Dose: 5 mg Documented By: Admin: 04/17/25 21:51 Dose: 5 mg Documented By: Admin: 04/16/25 21:41 Dose: 5 mg Documented By: KAJakub Admin: 04/15/25 22:21 Dose: 5 mg Documented By: KAJakub Admin: 04/14/25 21:23 Dose: 5 mg Documented By: Admin: 04/13/25 20:41 Dose: 5 mg Documented By: Admin: 04/12/25 20:35 Dose: 5 mg Documented By: Admin: 04/11/25 20:23 Dose: 5 mg Documented By: Admin: 04/10/25 21:47 Dose: Not Given Documented By: Admin: 04/09/25 21:37 Dose: 5 mg Documented By: Admin: 04/08/25 21:29 Dose: 5 mg Documented By: KSIhsan Admin: 04/07/25 20:21 Dose: 5 mg Documented By: Admin: 04/06/25 20:22 Dose: 5 mg Documented By: KMMandy Admin: 04/05/25 21:27 Dose: 5 mg Documented By: JESSIE Hall (Austedo [Patient Own Med]) 1 each PO DAILY SWAPNA Stop: 05/06/25 08:59 Last Admin: 04/30/25 08:53 Dose: 1 each Documented By: caridad Admin: 04/29/25 09:52 Dose: 1 each Documented By: Admin: 04/28/25 10:57 Dose: 1 each Documented By: Admin: 04/27/25 08:58 Dose: 1 each Documented By: Admin: 04/26/25 08:42 Dose: 1 each Documented By: foreign Admin: 04/25/25 07:27 Dose: 1 each Documented By: Admin: 04/24/25 09:42 Dose: Not Given Documented By: cjk Admin: 04/23/25 09:06 Dose: 1 each Documented By: adilenek Admin: 04/22/25 08:58 Dose: 1 each Documented By: Admin: 04/21/25 10:08 Dose: 1 each Documented By: Admin: 04/20/25 08:35 Dose: 1 each Documented By: Admin: 04/19/25 12:05 Dose: 1 each Documented By: Admin: 04/18/25 08:27 Dose: 1 each Documented By: Admin: 04/17/25 17:08 Dose: Not Given Documented By: Admin: 04/16/25 08:38 Dose: 1 each Documented By: Admin: 04/15/25 08:06 Dose: 1 each Documented By: prem Admin: 04/14/25 17:15 Dose: 1 each Documented By: prem Admin: 04/13/25 08:25 Dose: 1 each Documented By: Admin: 04/12/25 09:10 Dose: 1 each Documented By: Admin: 04/11/25 08:19 Dose: Not Given Documented By: Admin: 04/10/25 08:38 Dose: 1 each Documented By: foreign Admin: 04/09/25 08:29 Dose: Not Given Documented By: Admin: 04/08/25 08:43 Dose: 1 each Documented By: Admin: 04/07/25 09:04 Dose: 1 each Documented By: Admin: 04/06/25 08:19 Dose: 1 each Documented By: RAFAL Famotidine (Famotidine 40 Mg Tablet) 40 mg PO DAILY SWAPNA Stop: 05/06/25 08:59 Last Admin: 04/30/25 08:53 Dose: 40 mg Documented By: caridad Admin: 04/29/25 09:50 Dose: 40 mg Documented By: Admin: 04/28/25 10:56 Dose: 40 mg Documented By: Admin: 04/27/25 08:58 Dose: 40 mg Documented By: Admin: 04/26/25 08:42 Dose: 40 mg Documented By: cjk Admin: 04/25/25 07:20 Dose: 40 mg Documented By: FIELD OPERATIONS COORDINATOR Admin: 04/24/25 12:43 Dose: Not Given Documented By: cjk Admin: 04/23/25 09:05 Dose: 40 mg Documented By: cjk Admin: 04/22/25 08:57 Dose: 40 mg Documented By: Admin: 04/21/25 10:08 Dose: 40 mg Documented By: Admin: 04/20/25 08:32 Dose: 40 mg Documented By: Admin: 04/19/25 08:55 Dose: 40 mg Documented By: Admin: 04/18/25 08:22 Dose: 40 mg Documented By: Admin: 04/17/25 12:41 Dose: 40 mg Documented By: Admin: 04/16/25 08:37 Dose: 40 mg Documented By: Admin: 04/15/25 08:10 Dose: 40 mg Documented By: prem Admin: 04/14/25 16:55 Dose: 40 mg Documented By: prem Admin: 04/13/25 08:25 Dose: 40 mg Documented By: Admin: 04/12/25 09:10 Dose: 40 mg Documented By: TLJamey Admin: 04/11/25 08:19 Dose: Not Given Documented By: Admin: 04/10/25 08:38 Dose: 40 mg Documented By: foreign Admin: 04/09/25 08:29 Dose: Not Given Documented By: Admin: 04/08/25 08:43 Dose: 40 mg Documented By: Admin: 04/07/25 09:07 Dose: Not Given Documented By: Admin: 04/06/25 08:17 Dose: 40 mg Documented By: RAFAL Lactobacillus Acidophilus (Lactobacillus Acidophilus 1 Gm Pack) 1 packet PO TIDM SWAPNA Stop: 05/16/25 11:59 Last Admin: 04/30/25 12:28 Dose: 1 packet Documented By: caridad Admin: 04/30/25 08:51 Dose: 1 packet Documented By: caridad Admin: 04/29/25 17:05 Dose: 1 packet Documented By: Admin: 04/29/25 13:19 Dose: 1 packet Documented By: Admin: 04/29/25 09:52 Dose: 1 packet Documented By: Admin: 04/28/25 17:38 Dose: 1 packet Documented By: Admin: 04/28/25 14:00 Dose: 1 packet Documented By: Admin: 04/28/25 10:49 Dose: 1 packet Documented By: Admin: 04/27/25 17:17 Dose: 1 packet Documented By: Admin: 04/27/25 13:31 Dose: 1 packet Documented By: Admin: 04/27/25 08:56 Dose: 1 packet Documented By: Admin: 04/26/25 17:56 Dose: 1 packet Documented By: cjk Admin: 04/26/25 12:40 Dose: 1 packet Documented By: cjk Admin: 04/26/25 08:42 Dose: 1 packet Documented By: cjk Admin: 04/25/25 17:44 Dose: Not Given Documented By: FIELD OPERATIONS COORDINATOR Admin: 04/25/25 12:43 Dose: Not Given Documented By: FIELD OPERATIONS COORDINATOR Admin: 04/25/25 07:18 Dose: 1 packet Documented By: FIELD OPERATIONS COORDINATOR Admin: 04/24/25 16:51 Dose: 1 packet Documented By: cjk Admin: 04/24/25 13:17 Dose: Not Given Documented By: cjk Admin: 04/24/25 12:41 Dose: Not Given Documented By: cjk Admin: 04/23/25 17:37 Dose: 1 packet Documented By: cjk Admin: 04/23/25 13:03 Dose: 1 packet Documented By: cjk Admin: 04/23/25 09:04 Dose: 1 packet Documented By: cjk Admin: 04/22/25 17:40 Dose: 1 packet Documented By: Admin: 04/22/25 12:34 Dose: 1 packet Documented By: Admin: 04/22/25 08:56 Dose: 1 packet Documented By: Admin: 04/21/25 18:14 Dose: 1 packet Documented By: Admin: 04/21/25 13:17 Dose: 1 packet Documented By: Admin: 04/21/25 10:07 Dose: 1 packet Documented By: Admin: 04/20/25 17:47 Dose: 1 packet Documented By: Admin: 04/20/25 12:37 Dose: 1 packet Documented By: Admin: 04/20/25 08:32 Dose: 1 packet Documented By: Admin: 04/19/25 16:31 Dose: 1 packet Documented By: Admin: 04/19/25 11:04 Dose: Not Given Documented By: Admin: 04/19/25 08:56 Dose: 1 packet Documented By: Admin: 04/18/25 16:13 Dose: 1 packet Documented By: Admin: 04/18/25 12:45 Dose: 1 packet Documented By: Admin: 04/18/25 08:26 Dose: 1 packet Documented By: Admin: 04/17/25 17:09 Dose: 1 packet Documented By: Admin: 04/17/25 12:35 Dose: 1 packet Documented By: Admin: 04/17/25 12:35 Dose: Not Given Documented By: Admin: 04/16/25 16:28 Dose: 1 packet Documented By: Admin: 04/16/25 11:58 Dose: 1 packet Documented By: YUNIOR Lamotrigine (Lamotrigine 25 Mg Tab) 50 mg PO [facility]; Protocol Stop: 05/05/25 20:59 Last Admin: 04/30/25 08:52 Dose: 50 mg Documented By: caridad Admin: 04/29/25 20:22 Dose: 50 mg Documented By: Admin: 04/29/25 09:48 Dose: 50 mg Documented By: Admin: 04/28/25 20:11 Dose: 50 mg Documented By: heb Admin: 04/28/25 10:50 Dose: 50 mg Documented By: Admin: 04/27/25 20:19 Dose: 50 mg Documented By: heb Admin: 04/27/25 08:59 Dose: 50 mg Documented By: Admin: 04/26/25 20:23 Dose: 50 mg Documented By: heb Admin: 04/26/25 08:41 Dose: 50 mg Documented By: foreign Admin: 04/25/25 19:37 Dose: 50 mg Documented By: Admin: 04/25/25 07:25 Dose: 50 mg Documented By: Admin: 04/24/25 20:38 Dose: 50 mg Documented By: K Admin: 04/24/25 09:10 Dose: 50 mg Documented By: adilenek Admin: 04/23/25 20:23 Dose: 50 mg Documented By: Admin: 04/23/25 09:05 Dose: 50 mg Documented By: foreign Admin: 04/22/25 20:19 Dose: 50 mg Documented By: Admin: 04/22/25 08:57 Dose: 50 mg Documented By: [email or web address] Admin: 04/21/25 20:47 Dose: 50 mg Documented By: Admin: 04/21/25 10:07 Dose: 50 mg Documented By: Admin: 04/20/25 20:15 Dose: 50 mg Documented By: Admin: 04/20/25 08:33 Dose: 50 mg Documented By: Admin: 04/19/25 20:04 Dose: 50 mg Documented By: Admin: 04/19/25 08:54 Dose: 50 mg Documented By: Admin: 04/18/25 21:04 Dose: 50 mg Documented By: Admin: 04/18/25 08:23 Dose: 50 mg Documented By: Admin: 04/17/25 20:27 Dose: 50 mg Documented By: Admin: 04/17/25 12:41 Dose: 50 mg Documented By: Admin: 04/16/25 22:04 Dose: 50 mg Documented By: chin Admin: 04/16/25 08:35 Dose: 50 mg Documented By: Admin: 04/15/25 22:05 Dose: 25 mg Documented By: Admin: 04/15/25 08:07 Dose: 50 mg Documented By: prem Admin: 04/14/25 21:13 Dose: 50 mg Documented By: Admin: 04/14/25 16:55 Dose: 50 mg Documented By: prem Admin: 04/13/25 20:41 Dose: 50 mg Documented By: Admin: 04/13/25 08:25 Dose: 50 mg Documented By: TLJamey Admin: 04/12/25 20:36 Dose: 50 mg Documented By: JAMandy Admin: 04/12/25 09:10 Dose: 50 mg Documented By: Admin: 04/11/25 20:22 Dose: 50 mg Documented By: Admin: 04/11/25 08:11 Dose: 50 mg Documented By: Admin: 04/10/25 21:47 Dose: Not Given Documented By: Admin: 04/10/25 08:38 Dose: 50 mg Documented By: FIELD OPERATIONS COORDINATOR Admin: 04/09/25 21:37 Dose: 50 mg Documented By: Admin: 04/09/25 08:29 Dose: Not Given Documented By: LR Admin: 04/08/25 20:50 Dose: 50 mg Documented By: Admin: 04/08/25 08:43 Dose: 50 mg Documented By: Admin: 04/07/25 20:17 Dose: 50 mg Documented By: Admin: 04/07/25 09:03 Dose: 50 mg Documented By: Admin: 04/06/25 20:15 Dose: 50 mg Documented By: Admin: 04/06/25 08:16 Dose: 50 mg Documented By: Admin: 04/05/25 21:04 Dose: 50 mg Documented By: PNM Lamotrigine (Lamotrigine 100 Mg Tab) 200 mg PO [facility]; Protocol Stop: 05/05/25 20:59 Last Admin: 04/30/25 08:52 Dose: 200 mg Documented By: caridad Admin: 04/29/25 20:21 Dose: 200 mg Documented By: Admin: 04/29/25 09:51 Dose: 200 mg Documented By: Admin: 04/28/25 20:11 Dose: 200 mg Documented By: heb Admin: 04/28/25 10:52 Dose: 200 mg Documented By: Admin: 04/27/25 20:22 Dose: 200 mg Documented By: heb Admin: 04/27/25 08:57 Dose: 200 mg Documented By: Admin: 04/26/25 20:24 Dose: 200 mg Documented By: heb Admin: 04/26/25 08:41 Dose: 200 mg Documented By: adilenek Admin: 04/25/25 19:37 Dose: 200 mg Documented By: K Admin: 04/25/25 07:25 Dose: 200 mg Documented By: Admin: 04/24/25 20:38 Dose: 200 mg Documented By: Admin: 04/24/25 09:10 Dose: 200 mg Documented By: adilenek Admin: 04/23/25 20:23 Dose: 200 mg Documented By: K Admin: 04/23/25 09:04 Dose: 200 mg Documented By: adilenek Admin: 04/22/25 20:19 Dose: 200 mg Documented By: Admin: 04/22/25 08:58 Dose: 200 mg Documented By: Admin: 04/21/25 20:47 Dose: 200 mg Documented By: Admin: 04/21/25 10:07 Dose: 200 mg Documented By: Admin: 04/20/25 20:15 Dose: 200 mg Documented By: Admin: 04/20/25 08:33 Dose: 200 mg Documented By: Admin: 04/19/25 20:04 Dose: 200 mg Documented By: Admin: 04/19/25 12:04 Dose: 200 mg Documented By: Admin: 04/18/25 21:04 Dose: 200 mg Documented By: Admin: 04/18/25 08:22 Dose: 200 mg Documented By: Admin: 04/17/25 20:27 Dose: 200 mg Documented By: Admin: 04/17/25 12:42 Dose: 200 mg Documented By: Admin: 04/16/25 21:58 Dose: 200 mg Documented By: mcl Admin: 04/16/25 08:37 Dose: 200 mg Documented By: Admin: 04/15/25 22:46 Dose: Not Given Documented By: Admin: 04/15/25 11:01 Dose: 200 mg Documented By: prem Admin: 04/14/25 21:13 Dose: 200 mg Documented By: Admin: 04/14/25 16:54 Dose: 200 mg Documented By: prem Admin: 04/13/25 20:41 Dose: 200 mg Documented By: Admin: 04/13/25 08:25 Dose: 200 mg Documented By: Admin: 04/12/25 20:36 Dose: 200 mg Documented By: Admin: 04/12/25 09:10 Dose: 200 mg Documented By: Admin: 04/11/25 20:22 Dose: 200 mg Documented By: Admin: 04/11/25 08:10 Dose: 200 mg Documented By: Admin: 04/10/25 21:47 Dose: Not Given Documented By: Admin: 04/10/25 08:37 Dose: 200 mg Documented By: cjk Admin: 04/09/25 21:37 Dose: 200 mg Documented By: Admin: 04/09/25 08:29 Dose: Not Given Documented By: LR Admin: 04/08/25 20:50 Dose: 200 mg Documented By: Admin: 04/08/25 08:43 Dose: 200 mg Documented By: Admin: 04/07/25 20:17 Dose: 200 mg Documented By: Admin: 04/07/25 09:02 Dose: 200 mg Documented By: Admin: 04/06/25 20:16 Dose: 200 mg Documented By: Admin: 04/06/25 08:16 Dose: 200 mg Documented By: Admin: 04/05/25 21:04 Dose: 200 mg Documented By: PNM Levetiracetam (Levetiracetam 500 Mg Tab) 1,500 mg PO BID SWAPNA Stop: 05/05/25 20:59 Last Admin: 04/30/25 08:51 Dose: 1,500 mg Documented By: caridad Admin: 04/29/25 20:22 Dose: 1,500 mg Documented By: Admin: 04/29/25 09:49 Dose: 1,500 mg Documented By: Admin: 04/28/25 20:11 Dose: 1,500 mg Documented By: heb Admin: 04/28/25 11:01 Dose: 1,500 mg Documented By: Admin: 04/27/25 20:21 Dose: 1,500 mg Documented By: heb Admin: 04/27/25 08:56 Dose: 1,500 mg Documented By: Admin: 04/26/25 20:24 Dose: 1,500 mg Documented By: heb Admin: 04/26/25 08:41 Dose: 1,500 mg Documented By: foreign Admin: 04/25/25 19:37 Dose: 1,500 mg Documented By: Admin: 04/25/25 07:19 Dose: 1,500 mg Documented By: Admin: 04/24/25 20:38 Dose: 1,500 mg Documented By: Admin: 04/24/25 09:08 Dose: 1,500 mg Documented By: foreign Admin: 04/15/25 08:13 Dose: Not Given Documented By: prem Admin: 04/14/25 21:13 Dose: Not Given Documented By: Admin: 04/11/25 20:40 Dose: Not Given Documented By: Admin: 04/11/25 08:09 Dose: 1,500 mg Documented By: Admin: 04/10/25 21:47 Dose: Not Given Documented By: Admin: 04/10/25 08:36 Dose: 1,500 mg Documented By: foreign Admin: 04/09/25 21:36 Dose: 1,500 mg Documented By: Admin: 04/09/25 08:29 Dose: Not Given Documented By: LR Admin: 04/08/25 20:49 Dose: 1,500 mg Documented By: Admin: 04/08/25 08:43 Dose: 1,500 mg Documented By: Admin: 04/07/25 20:16 Dose: 1,500 mg Documented By: Admin: 04/07/25 09:01 Dose: 1,500 mg Documented By: Admin: 04/06/25 20:18 Dose: 1,500 mg Documented By: Admin: 04/06/25 08:15 Dose: 1,500 mg Documented By: Admin: 04/05/25 21:04 Dose: 1,500 mg Documented By: PNM Metoprolol Succinate (Metoprolol Succ 25mg Ext Rel Tab) 25 mg PO QAM SWAPNA Stop: 05/12/25 08:59 Last Admin: 04/30/25 08:52 Dose: 25 mg Documented By: cardiad Admin: 04/29/25 09:51 Dose: 25 mg Documented By: Admin: 04/28/25 11:02 Dose: 25 mg Documented By: Admin: 04/27/25 08:56 Dose: 25 mg Documented By: Admin: 04/26/25 08:42 Dose: 25 mg Documented By: foreign Admin: 04/25/25 07:20 Dose: 25 mg Documented By: FIELD OPERATIONS COORDINATOR Admin: 04/24/25 09:09 Dose: 25 mg Documented By: cjk Admin: 04/23/25 09:05 Dose: 25 mg Documented By: cjk Admin: 04/22/25 08:57 Dose: 25 mg Documented By: Admin: 04/21/25 10:07 Dose: 25 mg Documented By: Admin: 04/20/25 08:32 Dose: 25 mg Documented By: Admin: 04/19/25 08:55 Dose: 25 mg Documented By: Admin: 04/18/25 08:21 Dose: 25 mg Documented By: Admin: 04/17/25 12:43 Dose: 25 mg Documented By: Admin: 04/16/25 08:39 Dose: 25 mg Documented By: Admin: 04/15/25 08:10 Dose: 25 mg Documented By: prem Admin: 04/14/25 16:56 Dose: 25 mg Documented By: prem Admin: 04/13/25 08:25 Dose: 25 mg Documented By: Admin: 04/12/25 09:10 Dose: 25 mg Documented By: ADRIANNE Ondansetron HCl (Ondansetron Inj 2 Mg/Ml 2 Ml Vial) 4 mg IV Q6H PRN PRN Reason: Nausea Stop: 05/05/25 16:42 Last Admin: 04/25/25 11:25 Dose: 4 mg Documented By: BRIAN Perphenazine (Perphenazine 2 Mg Tab) 1 mg PO QAM SWAPNA Stop: 05/07/25 08:59 Last Admin: 04/30/25 08:53 Dose: 1 mg Documented By: caridad Admin: 04/29/25 09:50 Dose: 1 mg Documented By: Admin: 04/28/25 11:02 Dose: 1 mg Documented By: MARY ANNE Admin: 04/27/25 08:58 Dose: 1 mg Documented By: Admin: 04/26/25 08:41 Dose: 1 mg Documented By: foreign Admin: 04/25/25 07:22 Dose: 1 mg Documented By: Admin: 04/24/25 09:09 Dose: 1 mg Documented By: foreign Admin: 04/23/25 09:05 Dose: 1 mg Documented By: [email or web address] Admin: 04/22/25 08:57 Dose: 1 mg Documented By: Admin: 04/21/25 10:08 Dose: 1 mg Documented By: [email or web address] Admin: 04/20/25 08:33 Dose: 1 mg Documented By: [email or web address] Admin: 04/19/25 08:54 Dose: 1 mg Documented By: Admin: 04/18/25 08:24 Dose: 1 mg Documented By: Admin: 04/17/25 12:43 Dose: 1 mg Documented By: Admin: 04/16/25 08:36 Dose: 1 mg Documented By: Admin: 04/15/25 08:06 Dose: 1 mg Documented By: prem Admin: 04/14/25 17:16 Dose: Not Given Documented By: prem Admin: 04/13/25 08:25 Dose: 1 mg Documented By: Admin: 04/12/25 09:10 Dose: 1 mg Documented By: Admin: 04/11/25 08:19 Dose: Not Given Documented By: Admin: 04/10/25 08:37 Dose: 1 mg Documented By: cjk Admin: 04/09/25 08:29 Dose: Not Given Documented By: LR Admin: 04/08/25 08:43 Dose: 1 mg Documented By: Admin: 04/07/25 09:00 Dose: 1 mg Documented By: RAFAL Perphenazine (Perphenazine 2 Mg Tab) 3 mg PO HS SWAPNA Stop: 05/06/25 20:59 Last Admin: 04/29/25 20:34 Dose: 3 mg Documented By: Admin: 04/28/25 20:11 Dose: 3 mg Documented By: heb Admin: 04/27/25 20:19 Dose: 3 mg Documented By: heb Admin: 04/26/25 20:25 Dose: 3 mg Documented By: heb Admin: 04/25/25 19:38 Dose: 3 mg Documented By: K Admin: 04/24/25 20:38 Dose: 3 mg Documented By: Admin: 04/23/25 20:24 Dose: 3 mg Documented By: Admin: 04/22/25 20:19 Dose: 3 mg Documented By: Admin: 04/21/25 20:47 Dose: 3 mg Documented By: Admin: 04/20/25 20:15 Dose: 3 mg Documented By: Admin: 04/19/25 20:04 Dose: 3 mg Documented By: Admin: 04/18/25 21:04 Dose: 3 mg Documented By: Admin: 04/17/25 20:25 Dose: 3 mg Documented By: Admin: 04/16/25 22:02 Dose: 3 mg Documented By: mcl Admin: 04/15/25 22:46 Dose: Not Given Documented By: Admin: 04/14/25 21:13 Dose: 3 mg Documented By: Admin: 04/13/25 20:42 Dose: 3 mg Documented By: Admin: 04/12/25 20:37 Dose: 3 mg Documented By: JAMandy Admin: 04/11/25 20:25 Dose: 3 mg Documented By: Admin: 04/10/25 21:47 Dose: Not Given Documented By: Admin: 04/09/25 21:37 Dose: 3 mg Documented By: Admin: 04/08/25 20:51 Dose: 3 mg Documented By: Admin: 04/07/25 20:19 Dose: 3 mg Documented By: Admin: 04/06/25 20:20 Dose: 3 mg Documented By: LIVIA Polyethylene Glycol (Polyethylene (Miralax) 17 Gm Pack) 17 gm PO QAM SWAPNA Stop: 05/06/25 08:59 Last Admin: 04/30/25 08:51 Dose: 17 gm Documented By: caridad Admin: 04/29/25 09:48 Dose: 17 gm Documented By: Admin: 04/28/25 11:05 Dose: Not Given Documented By: Admin: 04/27/25 08:59 Dose: Not Given Documented By: Admin: 04/26/25 08:42 Dose: 17 gm Documented By: foreign Admin: 04/25/25 07:30 Dose: 17 gm Documented By: Admin: 04/24/25 09:08 Dose: 17 gm Documented By: [email or web address] Admin: 04/23/25 09:22 Dose: 17 gm Documented By: cjk Admin: 04/22/25 09:00 Dose: 17 gm Documented By: Admin: 04/21/25 10:08 Dose: Not Given Documented By: Admin: 04/20/25 08:36 Dose: Not Given Documented By: Admin: 04/19/25 09:12 Dose: 17 gm Documented By: Admin: 04/18/25 08:44 Dose: 17 gm Documented By: Admin: 04/17/25 12:38 Dose: 17 gm Documented By: Admin: 04/16/25 08:40 Dose: Not Given Documented By: Admin: 04/15/25 08:17 Dose: 17 gm Documented By: prem Admin: 04/14/25 14:17 Dose: Not Given Documented By: prem Admin: 04/13/25 08:25 Dose: Not Given Documented By: Admin: 04/12/25 09:10 Dose: 17 gm Documented By: Admin: 04/11/25 08:17 Dose: Not Given Documented By: Admin: 04/10/25 08:38 Dose: 17 gm Documented By: foreign Admin: 04/09/25 08:29 Dose: 17 gm Documented By: Admin: 04/08/25 08:44 Dose: 17 gm Documented By: Admin: 04/07/25 09:07 Dose: Not Given Documented By: Admin: 04/06/25 09:14 Dose: 17 gm Documented By: RAFAL Potassium Chloride (Potassium Chloride 10 Meq Tabcr) 20 meq PO DAILY SWAPNA Stop: 05/28/25 08:59 Last Admin: 04/30/25 08:51 Dose: 20 meq Documented By: caridad Admin: 04/29/25 09:48 Dose: 20 meq Documented By: Admin: 04/28/25 11:04 Dose: 20 meq Documented By: MARY ANNE Quetiapine Fumarate (Quetiapine Fumarate 25 Mg Tablet) 50 mg PO QAM SWAPNA Stop: 05/06/25 08:59 Last Admin: 04/30/25 08:52 Dose: 50 mg Documented By: caridad Admin: 04/29/25 09:50 Dose: 50 mg Documented By: Admin: 04/28/25 11:03 Dose: 50 mg Documented By: MARY ANNE Admin: 04/27/25 08:57 Dose: 50 mg Documented By: Admin: 04/26/25 08:42 Dose: 50 mg Documented By: cjk Admin: 04/25/25 07:28 Dose: 50 mg Documented By: FIELD OPERATIONS COORDINATOR Admin: 04/24/25 09:10 Dose: 50 mg Documented By: cjk Admin: 04/23/25 09:05 Dose: 50 mg Documented By: cjk Admin: 04/22/25 08:57 Dose: 50 mg Documented By: Admin: 04/21/25 10:07 Dose: 50 mg Documented By: Admin: 04/20/25 08:33 Dose: 50 mg Documented By: Admin: 04/19/25 08:52 Dose: 50 mg Documented By: Admin: 04/18/25 08:22 Dose: 50 mg Documented By: Admin: 04/17/25 12:44 Dose: 50 mg Documented By: Admin: 04/16/25 08:39 Dose: 50 mg Documented By: Admin: 04/15/25 08:34 Dose: 50 mg Documented By: prem Admin: 04/14/25 16:53 Dose: 50 mg Documented By: prem Admin: 04/13/25 08:25 Dose: 50 mg Documented By: Admin: 04/12/25 09:10 Dose: 50 mg Documented By: Admin: 04/11/25 08:19 Dose: Not Given Documented By: Admin: 04/10/25 08:36 Dose: 50 mg Documented By: cjk Admin: 04/09/25 08:29 Dose: Not Given Documented By: LR Admin: 04/08/25 08:43 Dose: 50 mg Documented By: Admin: 04/07/25 09:05 Dose: 50 mg Documented By: Admin: 04/06/25 08:17 Dose: 50 mg Documented By: RAFAL Quetiapine Fumarate (Quetiapine Fumarate 200 Mg Tab) 200 mg PO HS SWAPNA Stop: 05/05/25 20:59 Last Admin: 04/29/25 20:36 Dose: 200 mg Documented By: Admin: 04/28/25 20:15 Dose: 200 mg Documented By: heb Admin: 04/27/25 20:21 Dose: 200 mg Documented By: heb Admin: 04/26/25 20:27 Dose: 200 mg Documented By: heb Admin: 04/25/25 19:39 Dose: 200 mg Documented By: Admin: 04/24/25 20:38 Dose: 200 mg Documented By: Admin: 04/23/25 20:23 Dose: 200 mg Documented By: Admin: 04/22/25 20:19 Dose: 200 mg Documented By: Admin: 04/21/25 20:48 Dose: 200 mg Documented By: Admin: 04/20/25 20:48 Dose: 200 mg Documented By: automotive teacher: 04/19/25 20:05 Dose: 200 mg Documented By: Admin: 04/18/25 21:03 Dose: 200 mg Documented By: Admin: 04/17/25 20:25 Dose: 200 mg Documented By: Admin: 04/16/25 22:57 Dose: 200 mg Documented By: KAJakub Admin: 04/15/25 22:04 Dose: 200 mg Documented By: KAJakub Admin: 04/14/25 21:14 Dose: 200 mg Documented By: Admin: 04/13/25 22:04 Dose: 200 mg Documented By: Admin: 04/12/25 20:37 Dose: 200 mg Documented By: Admin: 04/11/25 20:26 Dose: 200 mg Documented By: Admin: 04/10/25 21:47 Dose: Not Given Documented By: Admin: 04/09/25 21:36 Dose: 200 mg Documented By: Admin: 04/08/25 20:49 Dose: 200 mg Documented By: Admin: 04/07/25 20:20 Dose: 200 mg Documented By: Admin: 04/06/25 20:20 Dose: 200 mg Documented By: Admin: 04/05/25 21:04 Dose: 200 mg Documented By: PNM Sertraline HCl (Sertraline Hcl 100 Mg Tablet) 100 mg PO QAM SWAPNA Stop: 05/06/25 08:59 Last Admin: 04/30/25 08:52 Dose: 100 mg Documented By: caridad Admin: 04/29/25 09:50 Dose: 100 mg Documented By: Admin: 04/28/25 11:03 Dose: 100 mg Documented By: Admin: 04/27/25 08:57 Dose: 100 mg Documented By: Admin: 04/26/25 08:42 Dose: 100 mg Documented By: cjk Admin: 04/25/25 07:21 Dose: 100 mg Documented By: FIELD OPERATIONS COORDINATOR Admin: 04/24/25 09:09 Dose: 100 mg Documented By: cjk Admin: 04/23/25 09:05 Dose: 100 mg Documented By: cjk Admin: 04/22/25 08:58 Dose: 100 mg Documented By: Admin: 04/21/25 10:08 Dose: 100 mg Documented By: Admin: 04/20/25 08:33 Dose: 100 mg Documented By: Admin: 04/19/25 08:55 Dose: 100 mg Documented By: Admin: 04/18/25 08:26 Dose: 100 mg Documented By: Admin: 04/17/25 12:45 Dose: 100 mg Documented By: Admin: 04/16/25 08:40 Dose: 100 mg Documented By: Admin: 04/15/25 08:09 Dose: 100 mg Documented By: prem Admin: 04/14/25 17:17 Dose: 100 mg Documented By: prem Admin: 04/13/25 08:25 Dose: 100 mg Documented By: Admin: 04/12/25 09:10 Dose: 100 mg Documented By: [email or web address] Admin: 04/11/25 08:19 Dose: Not Given Documented By: Admin: 04/10/25 08:36 Dose: 100 mg Documented By: cjk Admin: 04/09/25 08:29 Dose: Not Given Documented By: LR Admin: 04/08/25 08:43 Dose: 100 mg Documented By: Admin: 04/07/25 09:04 Dose: 100 mg Documented By: Admin: 04/06/25 08:18 Dose: 100 mg Documented By: RAFAL
--- NOTE | 2025-05-01 13:02 | Hospitalist Progress Note ---
Date of Service May 01, 2025 Assessment & Plan (1) Nephrolithiasis: (2) Ureteral stent present: (3) Nonverbal: (4) Complicated UTI (urinary tract infection): (5) Severe intellectual disability: (6) Fatty (change of) liver, not elsewhere classified: (7) Tremor, unspecified: Plan 59 yo female with pmhx of severe intellectual disability c/b epilepsy, nonverbal status, fecal/urinary incontinence, s/p recent urethral stent placement, fatty liver disease, GERD, OCD, IAN, who presents for a fall from the [facility]. #Fall #Epilepsy #Breakthrough seizures -unclear cause of fall from bed, likely mechanical in nature -per caregiver patient currently at baseline, concern is that UTI cause fall and they do not want her to become septic -had breakthrough seizures on 04/11, mayra anderson called, discussed with neurology Plan: -gentle hydration -recs followed per neurology -neurology consult, appreciate recs for consideration of seizure and polypharmacy -decreased dose of perphenazine -Awaiting rehab/intermediate facility placement -awaiting [facility], [facility] assessment -psychiatric consult placed per need for placement, appreciate recs -medically stable for discharge at this time #Severe Bacteriuria #Ureteral Stent -unclear if patient has symptoms, hemodynamically stable at this time, no sepsis criteria -UA appears to be significantly infected in setting of chronic colonization -s/p stent removal and placement this admission Plan: -urology consult, appreciate recs -follow up outpatient -ID consult, appreciate recs -given fluconazole -doing well, monitor #Abnormal CT Finding There is a new heterogeneous area of hypodensity in the periphery of the right lobe of the liver measuring 2.4 x 1.7 x 2.2 cm. -Further work up, management, and ff up as outpatient #Lateral T Wave Inversions -new from 2017 -echo with need for follow up outpatient #Severe Intellectual Disability #OCD #IAN -continue home meds austedo xr, perphenazine (decreased dose-3 mg at bedtime, 1 mg in the morning), seroquel, zoloft -continue miralax, bisacodyl suppository prn for constipation, -mouth care ordered -continue keppra and lamictal I spent a total of 35 minutes in direct patient care, including [id number] time with the patient and/or family, reviewing medical records, ordering and reviewing diagnostic tests, and coordinating care with other healthcare providers. This time includes: history taking, physical examination, medical decision making, counseling, ECG interpretation, imaging interpretation, lab interpretation, orders, and education, excluding time spent in the performance of separately billed services. Admission and Anticipated Discharge Date Admission Date: April 05, 2025 Subjective Patient seen and examined at bedside. This provider fed patient sausage at bedside. Review of Systems Review of Systems: -unable to answer due to mental status Physical Exam Physical Exam: Gen: A&O 0 NAD HEENT: NCAT, EOMI, not icteric. External ears normal. No rhinorrhea. normal mucous membranes. Neck: Supple, full range of motion, no observable masses, No meningeal sign. Lungs: No Respiratory distress. CV: RRR, no edema. Abdomen: Soft, nondistended, No rebound tenderness. MSK: No joint swelling, no redness. Skin: No rashes, petechiae, lesions. Neuro: chronic tremors bilaterally, baseline per caregiver Results & Data Results & Data Vital Signs (Past 12 Hours) Vital Signs Temp Pulse Pulse Resp BP Pulse Ox O2 Del Method 05/01/25 11:23 36.5 C 91 H 16 126/72 91 Room Air 05/01/25 09:32 Room Air 05/01/25 07:55 36.7 C 63 16 134/70 93 Room Air 05/01/25 06:57 63 05/01/25 03:52 36.7 C 68 18 132/76 94 Room Air Medications Administered Chlorhexidine Gluconate (Chlorhexidine Gluconate 0.12% 480 Ml) 15 ml MT TID SWAPNA Stop: 05/05/25 17:14 Last Admin: 05/01/25 08:11 Dose: 15 ml Documented By: ClaudiaDR Admin: 04/30/25 19:45 Dose: 15 ml Documented By: Admin: 04/30/25 14:41 Dose: 15 ml Documented By: caridad Admin: 04/30/25 08:53 Dose: 15 ml Documented By: caridad Admin: 04/29/25 20:20 Dose: 15 ml Documented By: Admin: 04/29/25 13:19 Dose: 15 ml Documented By: Admin: 04/29/25 09:52 Dose: 15 ml Documented By: Admin: 04/28/25 20:12 Dose: 15 ml Documented By: heb Admin: 04/28/25 14:00 Dose: 15 ml Documented By: Admin: 04/28/25 10:57 Dose: 15 ml Documented By: Admin: 04/27/25 20:22 Dose: 15 ml Documented By: heb Admin: 04/27/25 13:31 Dose: 15 ml Documented By: Admin: 04/27/25 09:13 Dose: 15 ml Documented By: Admin: 04/26/25 20:27 Dose: 15 ml Documented By: heb Admin: 04/26/25 13:41 Dose: Not Given Documented By: cjk Admin: 04/26/25 08:42 Dose: 15 ml Documented By: cjk Admin: 04/25/25 19:37 Dose: 15 ml Documented By: Admin: 04/25/25 14:14 Dose: Not Given Documented By: CENTERLESS GRINDER TENDER Admin: 04/25/25 07:26 Dose: 15 ml Documented By: CENTERLESS GRINDER TENDER Admin: 04/24/25 20:38 Dose: 15 ml Documented By: Admin: 04/24/25 12:03 Dose: Not Given Documented By: cjk Admin: 04/24/25 09:42 Dose: Not Given Documented By: cjk Admin: 04/23/25 20:23 Dose: 15 ml Documented By: K Admin: 04/23/25 12:52 Dose: Not Given Documented By: cjk Admin: 04/23/25 09:29 Dose: Not Given Documented By: cjk Admin: 04/22/25 20:19 Dose: 15 ml Documented By: Admin: 04/22/25 14:38 Dose: Not Given Documented By: Admin: 04/22/25 08:58 Dose: 15 ml Documented By: Admin: 04/21/25 20:46 Dose: 15 ml Documented By: Admin: 04/21/25 13:17 Dose: 15 ml Documented By: Admin: 04/21/25 09:32 Dose: 15 ml Documented By: Admin: 04/20/25 20:15 Dose: 15 ml Documented By: Admin: 04/20/25 14:15 Dose: 15 ml Documented By: Admin: 04/20/25 08:35 Dose: 15 ml Documented By: Admin: 04/19/25 20:03 Dose: 15 ml Documented By: Admin: 04/19/25 14:28 Dose: 15 ml Documented By: Admin: 04/19/25 09:07 Dose: 15 ml Documented By: Admin: 04/18/25 21:05 Dose: 15 ml Documented By: Admin: 04/18/25 16:12 Dose: 15 ml Documented By: Admin: 04/18/25 08:26 Dose: 15 ml Documented By: Admin: 04/17/25 20:29 Dose: 15 ml Documented By: Admin: 04/17/25 16:13 Dose: 15 ml Documented By: Admin: 04/17/25 12:35 Dose: Not Given Documented By: Admin: 04/16/25 22:04 Dose: 15 ml Documented By: mcl Admin: 04/16/25 15:59 Dose: Not Given Documented By: Admin: 04/16/25 08:38 Dose: 15 ml Documented By: Admin: 04/15/25 22:06 Dose: 15 ml Documented By: Admin: 04/15/25 12:45 Dose: Not Given Documented By: prem Admin: 04/15/25 08:12 Dose: Not Given Documented By: prem Admin: 04/14/25 21:30 Dose: Not Given Documented By: Admin: 04/14/25 14:28 Dose: Not Given Documented By: prem Admin: 04/14/25 10:21 Dose: Not Given Documented By: prem Admin: 04/13/25 20:42 Dose: 15 ml Documented By: POT PUSHER Admin: 04/13/25 13:48 Dose: 15 ml Documented By: Admin: 04/13/25 08:25 Dose: 15 ml Documented By: Admin: 04/12/25 20:35 Dose: 15 ml Documented By: Admin: 04/12/25 15:24 Dose: 15 ml Documented By: Admin: 04/12/25 08:20 Dose: 15 ml Documented By: Admin: 04/11/25 20:39 Dose: Not Given Documented By: Admin: 04/11/25 13:09 Dose: Not Given Documented By: Admin: 04/11/25 08:17 Dose: Not Given Documented By: Admin: 04/10/25 21:40 Dose: Not Given Documented By: Admin: 04/10/25 14:49 Dose: Not Given Documented By: cjk Admin: 04/10/25 08:38 Dose: 15 ml Documented By: cjk Admin: 04/09/25 21:26 Dose: Not Given Documented By: Admin: 04/09/25 13:23 Dose: Not Given Documented By: LR Admin: 04/09/25 08:14 Dose: Not Given Documented By: LR Admin: 04/08/25 20:48 Dose: Not Given Documented By: Admin: 04/08/25 13:17 Dose: Not Given Documented By: Admin: 04/08/25 08:44 Dose: Not Given Documented By: Admin: 04/07/25 20:16 Dose: 15 ml Documented By: Admin: 04/07/25 13:30 Dose: Not Given Documented By: Admin: 04/07/25 09:07 Dose: Not Given Documented By: Admin: 04/06/25 20:14 Dose: 15 ml Documented By: Admin: 04/06/25 13:28 Dose: Not Given Documented By: Admin: 04/06/25 08:15 Dose: 15 ml Documented By: Admin: 04/05/25 21:04 Dose: 15 ml Documented By: Admin: 04/05/25 18:48 Dose: Not Given Documented By: RAFAL Clobazam (Clobazam 5 Mg Tab) 5 mg PO HS [facility] Stop: 05/05/25 20:59 Last Admin: 04/30/25 19:46 Dose: 5 mg Documented By: Admin: 04/29/25 20:33 Dose: 5 mg Documented By: Admin: 04/28/25 20:11 Dose: 5 mg Documented By: heb Admin: 04/27/25 20:29 Dose: 5 mg Documented By: heb Admin: 04/26/25 20:27 Dose: 5 mg Documented By: heb Admin: 04/25/25 19:37 Dose: 5 mg Documented By: Admin: 04/24/25 20:38 Dose: 5 mg Documented By: Admin: 04/23/25 20:23 Dose: 5 mg Documented By: Admin: 04/22/25 20:19 Dose: 5 mg Documented By: Admin: 04/21/25 20:46 Dose: 5 mg Documented By: Admin: 04/20/25 20:17 Dose: 5 mg Documented By: Admin: 04/19/25 20:03 Dose: 5 mg Documented By: Admin: 04/18/25 21:03 Dose: 5 mg Documented By: Admin: 04/17/25 21:51 Dose: 5 mg Documented By: Admin: 04/16/25 21:41 Dose: 5 mg Documented By: Admin: 04/15/25 22:21 Dose: 5 mg Documented By: Admin: 04/14/25 21:23 Dose: 5 mg Documented By: Admin: 04/13/25 20:41 Dose: 5 mg Documented By: Admin: 04/12/25 20:35 Dose: 5 mg Documented By: Admin: 04/11/25 20:23 Dose: 5 mg Documented By: Admin: 04/10/25 21:47 Dose: Not Given Documented By: Admin: 04/09/25 21:37 Dose: 5 mg Documented By: Admin: 04/08/25 21:29 Dose: 5 mg Documented By: Admin: 04/07/25 20:21 Dose: 5 mg Documented By: Admin: 04/06/25 20:22 Dose: 5 mg Documented By: Admin: 04/05/25 21:27 Dose: 5 mg Documented By: JESSIE Hall (Austedo [Patient Own Med]) 1 each PO DAILY SWAPNA Stop: 05/06/25 08:59 Last Admin: 05/01/25 08:14 Dose: 1 each Documented By: Admin: 04/30/25 08:53 Dose: 1 each Documented By: caridad Admin: 04/29/25 09:52 Dose: 1 each Documented By: Admin: 04/28/25 10:57 Dose: 1 each Documented By: Admin: 04/27/25 08:58 Dose: 1 each Documented By: Admin: 04/26/25 08:42 Dose: 1 each Documented By: adilenek Admin: 04/25/25 07:27 Dose: 1 each Documented By: CENTERLESS GRINDER TENDER Admin: 04/24/25 09:42 Dose: Not Given Documented By: adilenek Admin: 04/23/25 09:06 Dose: 1 each Documented By: foreign Admin: 04/22/25 08:58 Dose: 1 each Documented By: Admin: 04/21/25 10:08 Dose: 1 each Documented By: MTJamey Admin: 04/20/25 08:35 Dose: 1 each Documented By: MTJamey Admin: 04/19/25 12:05 Dose: 1 each Documented By: BJSenthil Admin: 04/18/25 08:27 Dose: 1 each Documented By: BJSenthil Admin: 04/17/25 17:08 Dose: Not Given Documented By: Admin: 04/16/25 08:38 Dose: 1 each Documented By: Admin: 04/15/25 08:06 Dose: 1 each Documented By: prem Admin: 04/14/25 17:15 Dose: 1 each Documented By: prem Admin: 04/13/25 08:25 Dose: 1 each Documented By: Admin: 04/12/25 09:10 Dose: 1 each Documented By: Admin: 04/11/25 08:19 Dose: Not Given Documented By: Admin: 04/10/25 08:38 Dose: 1 each Documented By: foreign Admin: 04/09/25 08:29 Dose: Not Given Documented By: Admin: 04/08/25 08:43 Dose: 1 each Documented By: Admin: 04/07/25 09:04 Dose: 1 each Documented By: Admin: 04/06/25 08:19 Dose: 1 each Documented By: RAFAL Famotidine (Famotidine 40 Mg Tablet) 40 mg PO DAILY SWAPNA Stop: 05/06/25 08:59 Last Admin: 05/01/25 08:14 Dose: 40 mg Documented By: Admin: 04/30/25 08:53 Dose: 40 mg Documented By: caridad Admin: 04/29/25 09:50 Dose: 40 mg Documented By: Admin: 04/28/25 10:56 Dose: 40 mg Documented By: Admin: 04/27/25 08:58 Dose: 40 mg Documented By: MARY ANNE Admin: 04/26/25 08:42 Dose: 40 mg Documented By: adilenek Admin: 04/25/25 07:20 Dose: 40 mg Documented By: CENTERLESS GRINDER TENDER Admin: 04/24/25 12:43 Dose: Not Given Documented By: cjk Admin: 04/23/25 09:05 Dose: 40 mg Documented By: cjk Admin: 04/22/25 08:57 Dose: 40 mg Documented By: Admin: 04/21/25 10:08 Dose: 40 mg Documented By: Admin: 04/20/25 08:32 Dose: 40 mg Documented By: Admin: 04/19/25 08:55 Dose: 40 mg Documented By: Admin: 04/18/25 08:22 Dose: 40 mg Documented By: Admin: 04/17/25 12:41 Dose: 40 mg Documented By: Admin: 04/16/25 08:37 Dose: 40 mg Documented By: Admin: 04/15/25 08:10 Dose: 40 mg Documented By: prem Admin: 04/14/25 16:55 Dose: 40 mg Documented By: prem Admin: 04/13/25 08:25 Dose: 40 mg Documented By: TLJamey Admin: 04/12/25 09:10 Dose: 40 mg Documented By: Admin: 04/11/25 08:19 Dose: Not Given Documented By: Admin: 04/10/25 08:38 Dose: 40 mg Documented By: foreign Admin: 04/09/25 08:29 Dose: Not Given Documented By: LR Admin: 04/08/25 08:43 Dose: 40 mg Documented By: Admin: 04/07/25 09:07 Dose: Not Given Documented By: Admin: 04/06/25 08:17 Dose: 40 mg Documented By: RAFAL Lamotrigine (Lamotrigine 25 Mg Tab) 50 mg PO [facility]; Protocol Stop: 05/05/25 20:59 Last Admin: 05/01/25 08:12 Dose: 50 mg Documented By: Admin: 04/30/25 19:49 Dose: 50 mg Documented By: Admin: 04/30/25 08:52 Dose: 50 mg Documented By: caridad Admin: 04/29/25 20:22 Dose: 50 mg Documented By: Admin: 04/29/25 09:48 Dose: 50 mg Documented By: Admin: 04/28/25 20:11 Dose: 50 mg Documented By: heb Admin: 04/28/25 10:50 Dose: 50 mg Documented By: Admin: 04/27/25 20:19 Dose: 50 mg Documented By: heb Admin: 04/27/25 08:59 Dose: 50 mg Documented By: Admin: 04/26/25 20:23 Dose: 50 mg Documented By: heb Admin: 04/26/25 08:41 Dose: 50 mg Documented By: cjk Admin: 04/25/25 19:37 Dose: 50 mg Documented By: K Admin: 04/25/25 07:25 Dose: 50 mg Documented By: CENTERLESS GRINDER TENDER Admin: 04/24/25 20:38 Dose: 50 mg Documented By: Admin: 04/24/25 09:10 Dose: 50 mg Documented By: adilenek Admin: 04/23/25 20:23 Dose: 50 mg Documented By: Admin: 04/23/25 09:05 Dose: 50 mg Documented By: adilenek Admin: 04/22/25 20:19 Dose: 50 mg Documented By: K Admin: 04/22/25 08:57 Dose: 50 mg Documented By: Admin: 04/21/25 20:47 Dose: 50 mg Documented By: Admin: 04/21/25 10:07 Dose: 50 mg Documented By: Admin: 04/20/25 20:15 Dose: 50 mg Documented By: Admin: 04/20/25 08:33 Dose: 50 mg Documented By: Admin: 04/19/25 20:04 Dose: 50 mg Documented By: Admin: 04/19/25 08:54 Dose: 50 mg Documented By: Admin: 04/18/25 21:04 Dose: 50 mg Documented By: Admin: 04/18/25 08:23 Dose: 50 mg Documented By: Admin: 04/17/25 20:27 Dose: 50 mg Documented By: Admin: 04/17/25 12:41 Dose: 50 mg Documented By: Admin: 04/16/25 22:04 Dose: 50 mg Documented By: mcl Admin: 04/16/25 08:35 Dose: 50 mg Documented By: Admin: 04/15/25 22:05 Dose: 25 mg Documented By: Admin: 04/15/25 08:07 Dose: 50 mg Documented By: prem Admin: 04/14/25 21:13 Dose: 50 mg Documented By: Admin: 04/14/25 16:55 Dose: 50 mg Documented By: prem Admin: 04/13/25 20:41 Dose: 50 mg Documented By: Admin: 04/13/25 08:25 Dose: 50 mg Documented By: Admin: 04/12/25 20:36 Dose: 50 mg Documented By: Admin: 04/12/25 09:10 Dose: 50 mg Documented By: Admin: 04/11/25 20:22 Dose: 50 mg Documented By: Admin: 04/11/25 08:11 Dose: 50 mg Documented By: Admin: 04/10/25 21:47 Dose: Not Given Documented By: Admin: 04/10/25 08:38 Dose: 50 mg Documented By: CENTERLESS GRINDER TENDER Admin: 04/09/25 21:37 Dose: 50 mg Documented By: Admin: 04/09/25 08:29 Dose: Not Given Documented By: LR Admin: 04/08/25 20:50 Dose: 50 mg Documented By: Admin: 04/08/25 08:43 Dose: 50 mg Documented By: Admin: 04/07/25 20:17 Dose: 50 mg Documented By: Admin: 04/07/25 09:03 Dose: 50 mg Documented By: Admin: 04/06/25 20:15 Dose: 50 mg Documented By: Admin: 04/06/25 08:16 Dose: 50 mg Documented By: Admin: 04/05/25 21:04 Dose: 50 mg Documented By: PNM Lamotrigine (Lamotrigine 100 Mg Tab) 200 mg PO [facility]; Protocol Stop: 05/05/25 20:59 Last Admin: 05/01/25 08:15 Dose: 200 mg Documented By: Admin: 04/30/25 19:48 Dose: 200 mg Documented By: Admin: 04/30/25 08:52 Dose: 200 mg Documented By: caridad Admin: 04/29/25 20:21 Dose: 200 mg Documented By: Admin: 04/29/25 09:51 Dose: 200 mg Documented By: Admin: 04/28/25 20:11 Dose: 200 mg Documented By: heb Admin: 04/28/25 10:52 Dose: 200 mg Documented By: Admin: 04/27/25 20:22 Dose: 200 mg Documented By: heb Admin: 04/27/25 08:57 Dose: 200 mg Documented By: Admin: 04/26/25 20:24 Dose: 200 mg Documented By: heb Admin: 04/26/25 08:41 Dose: 200 mg Documented By: cjk Admin: 04/25/25 19:37 Dose: 200 mg Documented By: K Admin: 04/25/25 07:25 Dose: 200 mg Documented By: CENTERLESS GRINDER TENDER Admin: 04/24/25 20:38 Dose: 200 mg Documented By: Admin: 04/24/25 09:10 Dose: 200 mg Documented By: cjk Admin: 04/23/25 20:23 Dose: 200 mg Documented By: Admin: 04/23/25 09:04 Dose: 200 mg Documented By: adilenek Admin: 04/22/25 20:19 Dose: 200 mg Documented By: K Admin: 04/22/25 08:58 Dose: 200 mg Documented By: Admin: 04/21/25 20:47 Dose: 200 mg Documented By: Admin: 04/21/25 10:07 Dose: 200 mg Documented By: Admin: 04/20/25 20:15 Dose: 200 mg Documented By: Admin: 04/20/25 08:33 Dose: 200 mg Documented By: Admin: 04/19/25 20:04 Dose: 200 mg Documented By: Admin: 04/19/25 12:04 Dose: 200 mg Documented By: Admin: 04/18/25 21:04 Dose: 200 mg Documented By: Admin: 04/18/25 08:22 Dose: 200 mg Documented By: Admin: 04/17/25 20:27 Dose: 200 mg Documented By: Admin: 04/17/25 12:42 Dose: 200 mg Documented By: Admin: 04/16/25 21:58 Dose: 200 mg Documented By: mcl Admin: 04/16/25 08:37 Dose: 200 mg Documented By: Admin: 04/15/25 22:46 Dose: Not Given Documented By: Admin: 04/15/25 11:01 Dose: 200 mg Documented By: prem Admin: 04/14/25 21:13 Dose: 200 mg Documented By: Admin: 04/14/25 16:54 Dose: 200 mg Documented By: prem Admin: 04/13/25 20:41 Dose: 200 mg Documented By: Admin: 04/13/25 08:25 Dose: 200 mg Documented By: TLJamey Admin: 04/12/25 20:36 Dose: 200 mg Documented By: JAMandy Admin: 04/12/25 09:10 Dose: 200 mg Documented By: TLJamey Admin: 04/11/25 20:22 Dose: 200 mg Documented By: JAMandy Admin: 04/11/25 08:10 Dose: 200 mg Documented By: Admin: 04/10/25 21:47 Dose: Not Given Documented By: Admin: 04/10/25 08:37 Dose: 200 mg Documented By: adilenek Admin: 04/09/25 21:37 Dose: 200 mg Documented By: Admin: 04/09/25 08:29 Dose: Not Given Documented By: LR Admin: 04/08/25 20:50 Dose: 200 mg Documented By: Admin: 04/08/25 08:43 Dose: 200 mg Documented By: Admin: 04/07/25 20:17 Dose: 200 mg Documented By: KMMandy Admin: 04/07/25 09:02 Dose: 200 mg Documented By: Admin: 04/06/25 20:16 Dose: 200 mg Documented By: Admin: 04/06/25 08:16 Dose: 200 mg Documented By: Admin: 04/05/25 21:04 Dose: 200 mg Documented By: PNM Levetiracetam (Levetiracetam 500 Mg Tab) 1,500 mg PO BID [facility]AP[facility] Stop: 05/05/25 20:59 Last Admin: 05/01/25 08:12 Dose: 1,500 mg Documented By: Admin: 04/30/25 19:47 Dose: 1,500 mg Documented By: Admin: 04/30/25 08:51 Dose: 1,500 mg Documented By: caridad Admin: 04/29/25 20:22 Dose: 1,500 mg Documented By: Admin: 04/29/25 09:49 Dose: 1,500 mg Documented By: Admin: 04/28/25 20:11 Dose: 1,500 mg Documented By: heb Admin: 04/28/25 11:01 Dose: 1,500 mg Documented By: Admin: 04/27/25 20:21 Dose: 1,500 mg Documented By: heb Admin: 04/27/25 08:56 Dose: 1,500 mg Documented By: Admin: 04/26/25 20:24 Dose: 1,500 mg Documented By: heb Admin: 04/26/25 08:41 Dose: 1,500 mg Documented By: cjk Admin: 04/25/25 19:37 Dose: 1,500 mg Documented By: K Admin: 04/25/25 07:19 Dose: 1,500 mg Documented By: Admin: 04/24/25 20:38 Dose: 1,500 mg Documented By: K Admin: 04/24/25 09:08 Dose: 1,500 mg Documented By: cjk Admin: 04/15/25 08:13 Dose: Not Given Documented By: prem Admin: 04/14/25 21:13 Dose: Not Given Documented By: Admin: 04/11/25 20:40 Dose: Not Given Documented By: JAMandy Admin: 04/11/25 08:09 Dose: 1,500 mg Documented By: Admin: 04/10/25 21:47 Dose: Not Given Documented By: Admin: 04/10/25 08:36 Dose: 1,500 mg Documented By: cjk Admin: 04/09/25 21:36 Dose: 1,500 mg Documented By: Admin: 04/09/25 08:29 Dose: Not Given Documented By: LR Admin: 04/08/25 20:49 Dose: 1,500 mg Documented By: Admin: 04/08/25 08:43 Dose: 1,500 mg Documented By: Admin: 04/07/25 20:16 Dose: 1,500 mg Documented By: Admin: 04/07/25 09:01 Dose: 1,500 mg Documented By: Admin: 04/06/25 20:18 Dose: 1,500 mg Documented By: Admin: 04/06/25 08:15 Dose: 1,500 mg Documented By: Admin: 04/05/25 21:04 Dose: 1,500 mg Documented By: PNJamey Metoprolol Succinate (Metoprolol Succ 25mg Ext Rel Tab) 25 mg PO QAM SWAPNA Stop: 05/12/25 08:59 Last Admin: 05/01/25 08:14 Dose: 25 mg Documented By: Admin: 04/30/25 08:52 Dose: 25 mg Documented By: caridad Admin: 04/29/25 09:51 Dose: 25 mg Documented By: Admin: 04/28/25 11:02 Dose: 25 mg Documented By: Admin: 04/27/25 08:56 Dose: 25 mg Documented By: MARY ANNE Admin: 04/26/25 08:42 Dose: 25 mg Documented By: foreign Admin: 04/25/25 07:20 Dose: 25 mg Documented By: Admin: 04/24/25 09:09 Dose: 25 mg Documented By: foreign Admin: 04/23/25 09:05 Dose: 25 mg Documented By: foreign Admin: 04/22/25 08:57 Dose: 25 mg Documented By: Admin: 04/21/25 10:07 Dose: 25 mg Documented By: Admin: 04/20/25 08:32 Dose: 25 mg Documented By: Admin: 04/19/25 08:55 Dose: 25 mg Documented By: Admin: 04/18/25 08:21 Dose: 25 mg Documented By: Admin: 04/17/25 12:43 Dose: 25 mg Documented By: Admin: 04/16/25 08:39 Dose: 25 mg Documented By: Admin: 04/15/25 08:10 Dose: 25 mg Documented By: prem Admin: 04/14/25 16:56 Dose: 25 mg Documented By: prem Admin: 04/13/25 08:25 Dose: 25 mg Documented By: Admin: 04/12/25 09:10 Dose: 25 mg Documented By: ADRIANNE Ondansetron HCl (Ondansetron Inj 2 Mg/Ml 2 Ml Vial) 4 mg IV Q6H PRN PRN Reason: Nausea Stop: 05/05/25 16:42 Last Admin: 04/25/25 11:25 Dose: 4 mg Documented By: BRIAN Perphenazine (Perphenazine 2 Mg Tab) 1 mg PO QAM SWAPNA Stop: 05/07/25 08:59 Last Admin: 05/01/25 08:13 Dose: 1 mg Documented By: Admin: 04/30/25 08:53 Dose: 1 mg Documented By: caridad Admin: 04/29/25 09:50 Dose: 1 mg Documented By: Admin: 04/28/25 11:02 Dose: 1 mg Documented By: Admin: 04/27/25 08:58 Dose: 1 mg Documented By: Admin: 04/26/25 08:41 Dose: 1 mg Documented By: cjk Admin: 04/25/25 07:22 Dose: 1 mg Documented By: CENTERLESS GRINDER TENDER Admin: 04/24/25 09:09 Dose: 1 mg Documented By: cjk Admin: 04/23/25 09:05 Dose: 1 mg Documented By: cjk Admin: 04/22/25 08:57 Dose: 1 mg Documented By: MTJamey Admin: 04/21/25 10:08 Dose: 1 mg Documented By: Admin: 04/20/25 08:33 Dose: 1 mg Documented By: Admin: 04/19/25 08:54 Dose: 1 mg Documented By: Admin: 04/18/25 08:24 Dose: 1 mg Documented By: Admin: 04/17/25 12:43 Dose: 1 mg Documented By: MARY ANNE Admin: 04/16/25 08:36 Dose: 1 mg Documented By: Admin: 04/15/25 08:06 Dose: 1 mg Documented By: prem Admin: 04/14/25 17:16 Dose: Not Given Documented By: prem Admin: 04/13/25 08:25 Dose: 1 mg Documented By: Admin: 04/12/25 09:10 Dose: 1 mg Documented By: Admin: 04/11/25 08:19 Dose: Not Given Documented By: Admin: 04/10/25 08:37 Dose: 1 mg Documented By: foreign Admin: 04/09/25 08:29 Dose: Not Given Documented By: Admin: 04/08/25 08:43 Dose: 1 mg Documented By: Admin: 04/07/25 09:00 Dose: 1 mg Documented By: CS Perphenazine (Perphenazine 2 Mg Tab) 3 mg PO HS SWAPNA Stop: 05/06/25 20:59 Last Admin: 04/30/25 19:49 Dose: 3 mg Documented By: Admin: 04/29/25 20:34 Dose: 3 mg Documented By: Admin: 04/28/25 20:11 Dose: 3 mg Documented By: heb Admin: 04/27/25 20:19 Dose: 3 mg Documented By: heb Admin: 04/26/25 20:25 Dose: 3 mg Documented By: heb Admin: 04/25/25 19:38 Dose: 3 mg Documented By: Admin: 04/24/25 20:38 Dose: 3 mg Documented By: Admin: 04/23/25 20:24 Dose: 3 mg Documented By: Admin: 04/22/25 20:19 Dose: 3 mg Documented By: Admin: 04/21/25 20:47 Dose: 3 mg Documented By: Admin: 04/20/25 20:15 Dose: 3 mg Documented By: Admin: 04/19/25 20:04 Dose: 3 mg Documented By: Admin: 04/18/25 21:04 Dose: 3 mg Documented By: Admin: 04/17/25 20:25 Dose: 3 mg Documented By: Admin: 04/16/25 22:02 Dose: 3 mg Documented By: [email or web address] Admin: 04/15/25 22:46 Dose: Not Given Documented By: Admin: 04/14/25 21:13 Dose: 3 mg Documented By: Admin: 04/13/25 20:42 Dose: 3 mg Documented By: POT PUSHER Admin: 04/12/25 20:37 Dose: 3 mg Documented By: Admin: 04/11/25 20:25 Dose: 3 mg Documented By: Admin: 04/10/25 21:47 Dose: Not Given Documented By: Admin: 04/09/25 21:37 Dose: 3 mg Documented By: Admin: 04/08/25 20:51 Dose: 3 mg Documented By: Admin: 04/07/25 20:19 Dose: 3 mg Documented By: Admin: 04/06/25 20:20 Dose: 3 mg Documented By: KML Polyethylene Glycol (Polyethylene (Miralax) 17 Gm Pack) 17 gm PO QAJD [facility] [place] Stop: 05/06/25 08:59 Last Admin: 05/01/25 08:16 Dose: 17 gm Documented By: Admin: 04/30/25 08:51 Dose: 17 gm Documented By: [email or web address] Admin: 04/29/25 09:48 Dose: 17 gm Documented By: Admin: 04/28/25 11:05 Dose: Not Given Documented By: Admin: 04/27/25 08:59 Dose: Not Given Documented By: Admin: 04/26/25 08:42 Dose: 17 gm Documented By: cjk Admin: 04/25/25 07:30 Dose: 17 gm Documented By: CENTERLESS GRINDER TENDER Admin: 04/24/25 09:08 Dose: 17 gm Documented By: cjk Admin: 04/23/25 09:22 Dose: 17 gm Documented By: cjk Admin: 04/22/25 09:00 Dose: 17 gm Documented By: Admin: 04/21/25 10:08 Dose: Not Given Documented By: Admin: 04/20/25 08:36 Dose: Not Given Documented By: Admin: 04/19/25 09:12 Dose: 17 gm Documented By: Admin: 04/18/25 08:44 Dose: 17 gm Documented By: Admin: 04/17/25 12:38 Dose: 17 gm Documented By: Admin: 04/16/25 08:40 Dose: Not Given Documented By: Admin: 04/15/25 08:17 Dose: 17 gm Documented By: prem Admin: 04/14/25 14:17 Dose: Not Given Documented By: prem Admin: 04/13/25 08:25 Dose: Not Given Documented By: Admin: 04/12/25 09:10 Dose: 17 gm Documented By: Admin: 04/11/25 08:17 Dose: Not Given Documented By: Admin: 04/10/25 08:38 Dose: 17 gm Documented By: foreign Admin: 04/09/25 08:29 Dose: 17 gm Documented By: Admin: 04/08/25 08:44 Dose: 17 gm Documented By: Admin: 04/07/25 09:07 Dose: Not Given Documented By: Admin: 04/06/25 09:14 Dose: 17 gm Documented By: CS Potassium Chloride (Potassium Chloride 10 Meq Tabcr) 20 meq PO DAILY SWAPNA Stop: 05/28/25 08:59 Last Admin: 05/01/25 08:11 Dose: 20 meq Documented By: Admin: 04/30/25 08:51 Dose: 20 meq Documented By: caridad Admin: 04/29/25 09:48 Dose: 20 meq Documented By: Admin: 04/28/25 11:04 Dose: 20 meq Documented By: MARY ANNE Quetiapine Fumarate (Quetiapine Fumarate 25 Mg Tablet) 50 mg PO QAM SWAPNA Stop: 05/06/25 08:59 Last Admin: 05/01/25 08:13 Dose: 50 mg Documented By: Admin: 04/30/25 08:52 Dose: 50 mg Documented By: caridad Admin: 04/29/25 09:50 Dose: 50 mg Documented By: Admin: 04/28/25 11:03 Dose: 50 mg Documented By: MARY ANNE Admin: 04/27/25 08:57 Dose: 50 mg Documented By: Admin: 04/26/25 08:42 Dose: 50 mg Documented By: cjk Admin: 04/25/25 07:28 Dose: 50 mg Documented By: CENTERLESS [employer]ER TENDER Admin: 04/24/25 09:10 Dose: 50 mg Documented By: cjk Admin: 04/23/25 09:05 Dose: 50 mg Documented By: cjk Admin: 04/22/25 08:57 Dose: 50 mg Documented By: Admin: 04/21/25 10:07 Dose: 50 mg Documented By: Admin: 04/20/25 08:33 Dose: 50 mg Documented By: Admin: 04/19/25 08:52 Dose: 50 mg Documented By: Admin: 04/18/25 08:22 Dose: 50 mg Documented By: Admin: 04/17/25 12:44 Dose: 50 mg Documented By: Admin: 04/16/25 08:39 Dose: 50 mg Documented By: Admin: 04/15/25 08:34 Dose: 50 mg Documented By: prem Admin: 04/14/25 16:53 Dose: 50 mg Documented By: prem Admin: 04/13/25 08:25 Dose: 50 mg Documented By: Admin: 04/12/25 09:10 Dose: 50 mg Documented By: Admin: 04/11/25 08:19 Dose: Not Given Documented By: Admin: 04/10/25 08:36 Dose: 50 mg Documented By: [email or web address] Admin: 04/09/25 08:29 Dose: Not Given Documented By: LR Admin: 04/08/25 08:43 Dose: 50 mg Documented By: Admin: 04/07/25 09:05 Dose: 50 mg Documented By: Admin: 04/06/25 08:17 Dose: 50 mg Documented By: CS Quetiapine Fumarate (Quetiapine Fumarate 200 Mg Tab) 200 mg PO HS SWAPNA Stop: 05/05/25 20:59 Last Admin: 04/30/25 19:46 Dose: 200 mg Documented By: Admin: 04/29/25 20:36 Dose: 200 mg Documented By: Admin: 04/28/25 20:15 Dose: 200 mg Documented By: heb Admin: 04/27/25 20:21 Dose: 200 mg Documented By: heb Admin: 04/26/25 20:27 Dose: 200 mg Documented By: heb Admin: 04/25/25 19:39 Dose: 200 mg Documented By: Admin: 04/24/25 20:38 Dose: 200 mg Documented By: Admin: 04/23/25 20:23 Dose: 200 mg Documented By: Admin: 04/22/25 20:19 Dose: 200 mg Documented By: Admin: 04/21/25 20:48 Dose: 200 mg Documented By: Admin: 04/20/25 20:48 Dose: 200 mg Documented By: senior mechanical design engineer: 04/19/25 20:05 Dose: 200 mg Documented By: Admin: 04/18/25 21:03 Dose: 200 mg Documented By: Admin: 04/17/25 20:25 Dose: 200 mg Documented By: Admin: 04/16/25 22:57 Dose: 200 mg Documented By: Admin: 04/15/25 22:04 Dose: 200 mg Documented By: [email or web address] Admin: 04/14/25 21:14 Dose: 200 mg Documented By: Admin: 04/13/25 22:04 Dose: 200 mg Documented By: Admin: 04/12/25 20:37 Dose: 200 mg Documented By: Admin: 04/11/25 20:26 Dose: 200 mg Documented By: [email or web address] Admin: 04/10/25 21:47 Dose: Not Given Documented By: Admin: 04/09/25 21:36 Dose: 200 mg Documented By: Admin: 04/08/25 20:49 Dose: 200 mg Documented By: Admin: 04/07/25 20:20 Dose: 200 mg Documented By: Admin: 04/06/25 20:20 Dose: 200 mg Documented By: Admin: 04/05/25 21:04 Dose: 200 mg Documented By: PNM Sertraline HCl (Sertraline Hcl 100 Mg Tablet) 100 mg PO QAM SWAPNA Stop: 05/06/25 08:59 Last Admin: 05/01/25 08:16 Dose: 100 mg Documented By: J Admin: 04/30/25 08:52 Dose: 100 mg Documented By: caridad Admin: 04/29/25 09:50 Dose: 100 mg Documented By: Admin: 04/28/25 11:03 Dose: 100 mg Documented By: Admin: 04/27/25 08:57 Dose: 100 mg Documented By: Admin: 04/26/25 08:42 Dose: 100 mg Documented By: [email or web address] Admin: 04/25/25 07:21 Dose: 100 mg Documented By: CENTERLESS [employer]ER Admin: 04/24/25 09:09 Dose: 100 mg Documented By: cjk Admin: 04/23/25 09:05 Dose: 100 mg Documented By: cjk Admin: 04/22/25 08:58 Dose: 100 mg Documented By: Admin: 04/21/25 10:08 Dose: 100 mg Documented By: Admin: 04/20/25 08:33 Dose: 100 mg Documented By: Admin: 04/19/25 08:55 Dose: 100 mg Documented By: Admin: 04/18/25 08:26 Dose: 100 mg Documented By: Admin: 04/17/25 12:45 Dose: 100 mg Documented By: Admin: 04/16/25 08:40 Dose: 100 mg Documented By: Admin: 04/15/25 08:09 Dose: 100 mg Documented By: prem Admin: 04/14/25 17:17 Dose: 100 mg Documented By: prem Admin: 04/13/25 08:25 Dose: 100 mg Documented By: Admin: 04/12/25 09:10 Dose: 100 mg Documented By: Admin: 04/11/25 08:19 Dose: Not Given Documented By: Admin: 04/10/25 08:36 Dose: 100 mg Documented By: [email or web address] Admin: 04/09/25 08:29 Dose: Not Given Documented By: LR Admin: 04/08/25 08:43 Dose: 100 mg Documented By: Admin: 04/07/25 09:04 Dose: 100 mg Documented By: Admin: 04/06/25 08:18 Dose: 100 mg Documented By: [email or web address]
[2025-05-02 08:06] LABS: Hematocrit (blood only) 25.4 % (37.0-47.0); Hemoglobin 7.5 g/dl (12.0-16.0); Mean Corpuscular Hemoglobin 24.0 pg (25.0-34.0); Mean Corpuscular Volume 81.4 fL (80.0-100.0); Platelet Count 309 K/uL (130-400); RDW Standard Deviation 51.6 fL (36.4-46.3); Red Blood Count 3.12 M/uL (4.20-5.40); White Blood Count 5.80 K/ul (4.8-10.8)
[2025-05-02 08:30] LABS: Anion Gap 3.0 (3-11); Blood Urea Nitrogen 18.0 mg/dl (6-23); Calcium 8.4 mg/dl (8.6-10.3); Carbon Dioxide 29.0 mmol/L (21-32); Chloride 107.0 mmol/L (98-107); Creatinine Clr Calc Pharmacy 42.2 ml/min; Glucose 97.0 mg/dl (70-99(Fasting)); Potassium 4.4 mmol/L (3.5-5.1); Sodium 139.0 mmol/L (136-145)
--- NOTE | 2025-05-02 12:39 | Hospitalist Progress Note ---
Date of Service May 02, 2025 Assessment & Plan (1) Nephrolithiasis: (2) Ureteral stent present: (3) Nonverbal: (4) Complicated UTI (urinary tract infection): (5) Severe intellectual disability: (6) Fatty (change of) liver, not elsewhere classified: (7) Tremor, unspecified: Plan 59 yo female with pmhx of severe intellectual disability c/b epilepsy, nonverbal status, fecal/urinary incontinence, s/p recent urethral stent placement, fatty liver disease, GERD, OCD, IAN, who presents for a fall from the [facility]. #Fall #Epilepsy #Breakthrough seizures -unclear cause of fall from bed, likely mechanical in nature -per caregiver patient currently at baseline, concern is that UTI cause fall and they do not want her to become septic -had breakthrough seizures on 04/11, cod monica called, discussed with neurology Plan: -gentle hydration -recs followed per neurology -neurology consult, appreciate recs for consideration of seizure and polypharmacy -decreased dose of perphenazine -Awaiting rehab/residential facility placement -awaiting [facility], office of aging assessment -psychiatric consult placed per need for placement, appreciate recs -medically stable for discharge at this time #Chronic Normocytic Anemia -monitor -no signs or symptoms of bleeding at this time, BUN not elevated above normal limits at this time #Severe Bacteriuria #Ureteral Stent -unclear if patient has symptoms, hemodynamically stable at this time, no sepsis criteria -UA appears to be significantly infected in setting of chronic colonization -s/p stent removal and placement this admission Plan: -urology consult, appreciate recs -follow up outpatient -ID consult, appreciate recs -given fluconazole -doing well, monitor #Abnormal CT Finding There is a new heterogeneous area of hypodensity in the periphery of the right lobe of the liver measuring 2.4 x 1.7 x 2.2 cm. -Further work up, management, and ff up as outpatient #Lateral T Wave Inversions -new from 2017 -echo with need for follow up outpatient #Severe Intellectual Disability #OCD #IAN -continue home meds austedo xr, perphenazine (decreased dose-3 mg at bedtime, 1 mg in the morning), seroquel, zoloft -continue miralax, bisacodyl suppository prn for constipation, -mouth care ordered -continue keppra and lamictal #Dehydration -as indicated by slightly elevated creatinine Plan: -give 500 cc bolus of LR I spent a total of 45 minutes in direct patient care, including [id number] time with the patient and/or family, reviewing medical records, ordering and reviewing diagnostic tests, and coordinating care with other healthcare providers. This time includes: history taking, physical examination, medical decision making, counseling, ECG interpretation, imaging interpretation, lab interpretation, orders, and education, excluding time spent in the performance of separately billed services. Admission and Anticipated Discharge Date Admission Date: April 05, 2025 Subjective Patient seen and examined at bedside. Appears at baseline, eating with assistance. Review of Systems Review of Systems: -unable to answer due to mental status Physical Exam Physical Exam: Gen: A&O 0 NAD HEENT: NCAT, EOMI, not icteric. External ears normal. No rhinorrhea. normal mucous membranes. Neck: Supple, full range of motion, no observable masses, No meningeal sign. Lungs: No Respiratory distress. CV: RRR, no edema. Abdomen: Soft, nondistended, No rebound tenderness. MSK: No joint swelling, no redness. Skin: No rashes, petechiae, lesions. Neuro: chronic tremors bilaterally, baseline per caregiver Results & Data Results & Data Vital Signs (Past 12 Hours) Vital Signs Temp Pulse Resp BP Pulse Ox O2 Del Method 05/02/25 11:48 36.7 C 67 18 111/70 95 Room Air 05/02/25 10:19 65 127/74 05/02/25 08:27 36.7 C 63 16 111/56 L 94 Room Air 05/02/25 03:21 36.4 C L 64 16 94/57 L 92 Room Air Laboratory Results -personally reviewed, Hgb of 7.5 slightly below current here but may be dilutional also consistent with prior baselines, creatinine marginally elevated Medications Administered Chlorhexidine Gluconate (Chlorhexidine Gluconate 0.12% 480 Ml) 15 ml MT TID SWAPNA Stop: 05/05/25 17:14 Last Admin: 05/02/25 10:16 Dose: 15 ml Documented By: Admin: 05/01/25 21:23 Dose: 15 ml Documented By: K Admin: 05/01/25 13:06 Dose: 15 ml Documented By: caridad Admin: 05/01/25 08:11 Dose: 15 ml Documented By: Admin: 04/30/25 19:45 Dose: 15 ml Documented By: Admin: 04/30/25 14:41 Dose: 15 ml Documented By: caridad Admin: 04/30/25 08:53 Dose: 15 ml Documented By: caridad Admin: 04/29/25 20:20 Dose: 15 ml Documented By: Admin: 04/29/25 13:19 Dose: 15 ml Documented By: Admin: 04/29/25 09:52 Dose: 15 ml Documented By: Admin: 04/28/25 20:12 Dose: 15 ml Documented By: heb Admin: 04/28/25 14:00 Dose: 15 ml Documented By: Admin: 04/28/25 10:57 Dose: 15 ml Documented By: Admin: 04/27/25 20:22 Dose: 15 ml Documented By: heb Admin: 04/27/25 13:31 Dose: 15 ml Documented By: Admin: 04/27/25 09:13 Dose: 15 ml Documented By: Admin: 04/26/25 20:27 Dose: 15 ml Documented By: heb Admin: 04/26/25 13:41 Dose: Not Given Documented By: cjk Admin: 04/26/25 08:42 Dose: 15 ml Documented By: cjk Admin: 04/25/25 19:37 Dose: 15 ml Documented By: K Admin: 04/25/25 14:14 Dose: Not Given Documented By: HORN PLAYER Admin: 04/25/25 07:26 Dose: 15 ml Documented By: HORN PLAYER Admin: 04/24/25 20:38 Dose: 15 ml Documented By: K Admin: 04/24/25 12:03 Dose: Not Given Documented By: cjk Admin: 04/24/25 09:42 Dose: Not Given Documented By: cjk Admin: 04/23/25 20:23 Dose: 15 ml Documented By: Admin: 04/23/25 12:52 Dose: Not Given Documented By: cjk Admin: 04/23/25 09:29 Dose: Not Given Documented By: cjk Admin: 04/22/25 20:19 Dose: 15 ml Documented By: Admin: 04/22/25 14:38 Dose: Not Given Documented By: Admin: 04/22/25 08:58 Dose: 15 ml Documented By: Admin: 04/21/25 20:46 Dose: 15 ml Documented By: Admin: 04/21/25 13:17 Dose: 15 ml Documented By: Admin: 04/21/25 09:32 Dose: 15 ml Documented By: Admin: 04/20/25 20:15 Dose: 15 ml Documented By: Admin: 04/20/25 14:15 Dose: 15 ml Documented By: Admin: 04/20/25 08:35 Dose: 15 ml Documented By: Admin: 04/19/25 20:03 Dose: 15 ml Documented By: Admin: 04/19/25 14:28 Dose: 15 ml Documented By: Admin: 04/19/25 09:07 Dose: 15 ml Documented By: Admin: 04/18/25 21:05 Dose: 15 ml Documented By: Admin: 04/18/25 16:12 Dose: 15 ml Documented By: Admin: 04/18/25 08:26 Dose: 15 ml Documented By: Admin: 04/17/25 20:29 Dose: 15 ml Documented By: Admin: 04/17/25 16:13 Dose: 15 ml Documented By: Admin: 04/17/25 12:35 Dose: Not Given Documented By: Admin: 04/16/25 22:04 Dose: 15 ml Documented By: mcl Admin: 04/16/25 15:59 Dose: Not Given Documented By: Admin: 04/16/25 08:38 Dose: 15 ml Documented By: Admin: 04/15/25 22:06 Dose: 15 ml Documented By: Admin: 04/15/25 12:45 Dose: Not Given Documented By: prem Admin: 04/15/25 08:12 Dose: Not Given Documented By: prem Admin: 04/14/25 21:30 Dose: Not Given Documented By: Admin: 04/14/25 14:28 Dose: Not Given Documented By: prem Admin: 04/14/25 10:21 Dose: Not Given Documented By: prem Admin: 04/13/25 20:42 Dose: 15 ml Documented By: SALON/SPA MANAGER Admin: 04/13/25 13:48 Dose: 15 ml Documented By: Admin: 04/13/25 08:25 Dose: 15 ml Documented By: Admin: 04/12/25 20:35 Dose: 15 ml Documented By: Admin: 04/12/25 15:24 Dose: 15 ml Documented By: Admin: 04/12/25 08:20 Dose: 15 ml Documented By: Admin: 04/11/25 20:39 Dose: Not Given Documented By: Admin: 04/11/25 13:09 Dose: Not Given Documented By: Admin: 04/11/25 08:17 Dose: Not Given Documented By: Admin: 04/10/25 21:40 Dose: Not Given Documented By: Admin: 04/10/25 14:49 Dose: Not Given Documented By: cjk Admin: 04/10/25 08:38 Dose: 15 ml Documented By: cjk Admin: 04/09/25 21:26 Dose: Not Given Documented By: Admin: 04/09/25 13:23 Dose: Not Given Documented By: LR Admin: 04/09/25 08:14 Dose: Not Given Documented By: LR Admin: 04/08/25 20:48 Dose: Not Given Documented By: Admin: 04/08/25 13:17 Dose: Not Given Documented By: Admin: 04/08/25 08:44 Dose: Not Given Documented By: Admin: 04/07/25 20:16 Dose: 15 ml Documented By: Admin: 04/07/25 13:30 Dose: Not Given Documented By: Admin: 04/07/25 09:07 Dose: Not Given Documented By: Admin: 04/06/25 20:14 Dose: 15 ml Documented By: Admin: 04/06/25 13:28 Dose: Not Given Documented By: Admin: 04/06/25 08:15 Dose: 15 ml Documented By: Admin: 04/05/25 21:04 Dose: 15 ml Documented By: Admin: 04/05/25 18:48 Dose: Not Given Documented By: CS Clobazam (Clobazam 5 Mg Tab) 5 mg PO HS SWAPNA Stop: 05/05/25 20:59 Last Admin: 05/01/25 21:23 Dose: 5 mg Documented By: Admin: 04/30/25 19:46 Dose: 5 mg Documented By: Admin: 04/29/25 20:33 Dose: 5 mg Documented By: Admin: 04/28/25 20:11 Dose: 5 mg Documented By: heb Admin: 04/27/25 20:29 Dose: 5 mg Documented By: heb Admin: 04/26/25 20:27 Dose: 5 mg Documented By: heb Admin: 04/25/25 19:37 Dose: 5 mg Documented By: Admin: 04/24/25 20:38 Dose: 5 mg Documented By: Admin: 04/23/25 20:23 Dose: 5 mg Documented By: Admin: 04/22/25 20:19 Dose: 5 mg Documented By: Admin: 04/21/25 20:46 Dose: 5 mg Documented By: Admin: 04/20/25 20:17 Dose: 5 mg Documented By: Admin: 04/19/25 20:03 Dose: 5 mg Documented By: Admin: 04/18/25 21:03 Dose: 5 mg Documented By: Admin: 04/17/25 21:51 Dose: 5 mg Documented By: Admin: 04/16/25 21:41 Dose: 5 mg Documented By: Admin: 04/15/25 22:21 Dose: 5 mg Documented By: Admin: 04/14/25 21:23 Dose: 5 mg Documented By: Admin: 04/13/25 20:41 Dose: 5 mg Documented By: SALON/SPA MANAGER Admin: 04/12/25 20:35 Dose: 5 mg Documented By: Admin: 04/11/25 20:23 Dose: 5 mg Documented By: Admin: 04/10/25 21:47 Dose: Not Given Documented By: Admin: 04/09/25 21:37 Dose: 5 mg Documented By: Admin: 04/08/25 21:29 Dose: 5 mg Documented By: Admin: 04/07/25 20:21 Dose: 5 mg Documented By: Admin: 04/06/25 20:22 Dose: 5 mg Documented By: Admin: 04/05/25 21:27 Dose: 5 mg Documented By: JESSIE Hall (Austedo [Patient Own Med]) 1 each PO DAILY SWAPNA Stop: 05/06/25 08:59 Last Admin: 05/02/25 10:12 Dose: 1 each Documented By: Admin: 05/01/25 08:14 Dose: 1 each Documented By: Admin: 04/30/25 08:53 Dose: 1 each Documented By: caridad Admin: 04/29/25 09:52 Dose: 1 each Documented By: Admin: 04/28/25 10:57 Dose: 1 each Documented By: MARY ANNE Admin: 04/27/25 08:58 Dose: 1 each Documented By: MARY ANNE Admin: 04/26/25 08:42 Dose: 1 each Documented By: foreign Admin: 04/25/25 07:27 Dose: 1 each Documented By: Admin: 04/24/25 09:42 Dose: Not Given Documented By: foreign Admin: 04/23/25 09:06 Dose: 1 each Documented By: foreign Admin: 04/22/25 08:58 Dose: 1 each Documented By: Admin: 04/21/25 10:08 Dose: 1 each Documented By: MTJamey Admin: 04/20/25 08:35 Dose: 1 each Documented By: MTJamey Admin: 04/19/25 12:05 Dose: 1 each Documented By: Admin: 04/18/25 08:27 Dose: 1 each Documented By: Admin: 04/17/25 17:08 Dose: Not Given Documented By: MARY ANNE Admin: 04/16/25 08:38 Dose: 1 each Documented By: Admin: 04/15/25 08:06 Dose: 1 each Documented By: prem Admin: 04/14/25 17:15 Dose: 1 each Documented By: prem Admin: 04/13/25 08:25 Dose: 1 each Documented By: Admin: 04/12/25 09:10 Dose: 1 each Documented By: Admin: 04/11/25 08:19 Dose: Not Given Documented By: Admin: 04/10/25 08:38 Dose: 1 each Documented By: foreign Admin: 04/09/25 08:29 Dose: Not Given Documented By: LR Admin: 04/08/25 08:43 Dose: 1 each Documented By: Admin: 04/07/25 09:04 Dose: 1 each Documented By: Admin: 04/06/25 08:19 Dose: 1 each Documented By: RAFAL Famotidine (Famotidine 40 Mg Tablet) 40 mg PO DAILY SWAPNA Stop: 05/06/25 08:59 Last Admin: 05/02/25 10:14 Dose: 40 mg Documented By: Admin: 05/01/25 08:14 Dose: 40 mg Documented By: Admin: 04/30/25 08:53 Dose: 40 mg Documented By: caridad Admin: 04/29/25 09:50 Dose: 40 mg Documented By: Admin: 04/28/25 10:56 Dose: 40 mg Documented By: Admin: 04/27/25 08:58 Dose: 40 mg Documented By: Admin: 04/26/25 08:42 Dose: 40 mg Documented By: cjk Admin: 04/25/25 07:20 Dose: 40 mg Documented By: HORN PLAYER Admin: 04/24/25 12:43 Dose: Not Given Documented By: cjk Admin: 04/23/25 09:05 Dose: 40 mg Documented By: cjk Admin: 04/22/25 08:57 Dose: 40 mg Documented By: Admin: 04/21/25 10:08 Dose: 40 mg Documented By: Admin: 04/20/25 08:32 Dose: 40 mg Documented By: Admin: 04/19/25 08:55 Dose: 40 mg Documented By: Admin: 04/18/25 08:22 Dose: 40 mg Documented By: Admin: 04/17/25 12:41 Dose: 40 mg Documented By: Admin: 04/16/25 08:37 Dose: 40 mg Documented By: Admin: 04/15/25 08:10 Dose: 40 mg Documented By: prem Admin: 04/14/25 16:55 Dose: 40 mg Documented By: prem Admin: 04/13/25 08:25 Dose: 40 mg Documented By: Admin: 04/12/25 09:10 Dose: 40 mg Documented By: Admin: 04/11/25 08:19 Dose: Not Given Documented By: Admin: 04/10/25 08:38 Dose: 40 mg Documented By: foreign Admin: 04/09/25 08:29 Dose: Not Given Documented By: Admin: 04/08/25 08:43 Dose: 40 mg Documented By: Admin: 04/07/25 09:07 Dose: Not Given Documented By: Admin: 04/06/25 08:17 Dose: 40 mg Documented By: RAFAL Lamotrigine (Lamotrigine 25 Mg Tab) 50 mg PO [facility]; Protocol Stop: 05/05/25 20:59 Last Admin: 05/02/25 10:15 Dose: 50 mg Documented By: Admin: 05/01/25 21:23 Dose: 50 mg Documented By: K Admin: 05/01/25 08:12 Dose: 50 mg Documented By: Admin: 04/30/25 19:49 Dose: 50 mg Documented By: Admin: 04/30/25 08:52 Dose: 50 mg Documented By: caridad Admin: 04/29/25 20:22 Dose: 50 mg Documented By: Admin: 04/29/25 09:48 Dose: 50 mg Documented By: Admin: 04/28/25 20:11 Dose: 50 mg Documented By: heb Admin: 04/28/25 10:50 Dose: 50 mg Documented By: Admin: 04/27/25 20:19 Dose: 50 mg Documented By: heb Admin: 04/27/25 08:59 Dose: 50 mg Documented By: Admin: 04/26/25 20:23 Dose: 50 mg Documented By: heb Admin: 04/26/25 08:41 Dose: 50 mg Documented By: adilenek Admin: 04/25/25 19:37 Dose: 50 mg Documented By: Admin: 04/25/25 07:25 Dose: 50 mg Documented By: Admin: 04/24/25 20:38 Dose: 50 mg Documented By: Admin: 04/24/25 09:10 Dose: 50 mg Documented By: adilenek Admin: 04/23/25 20:23 Dose: 50 mg Documented By: Admin: 04/23/25 09:05 Dose: 50 mg Documented By: foreign Admin: 04/22/25 20:19 Dose: 50 mg Documented By: K Admin: 04/22/25 08:57 Dose: 50 mg Documented By: MTJamey Admin: 04/21/25 20:47 Dose: 50 mg Documented By: Admin: 04/21/25 10:07 Dose: 50 mg Documented By: Admin: 04/20/25 20:15 Dose: 50 mg Documented By: Admin: 04/20/25 08:33 Dose: 50 mg Documented By: Admin: 04/19/25 20:04 Dose: 50 mg Documented By: Admin: 04/19/25 08:54 Dose: 50 mg Documented By: Admin: 04/18/25 21:04 Dose: 50 mg Documented By: Admin: 04/18/25 08:23 Dose: 50 mg Documented By: Admin: 04/17/25 20:27 Dose: 50 mg Documented By: Admin: 04/17/25 12:41 Dose: 50 mg Documented By: Admin: 04/16/25 22:04 Dose: 50 mg Documented By: chin Admin: 04/16/25 08:35 Dose: 50 mg Documented By: Admin: 04/15/25 22:05 Dose: 25 mg Documented By: Admin: 04/15/25 08:07 Dose: 50 mg Documented By: prem Admin: 04/14/25 21:13 Dose: 50 mg Documented By: Admin: 04/14/25 16:55 Dose: 50 mg Documented By: prem Admin: 04/13/25 20:41 Dose: 50 mg Documented By: Admin: 04/13/25 08:25 Dose: 50 mg Documented By: Admin: 04/12/25 20:36 Dose: 50 mg Documented By: Admin: 04/12/25 09:10 Dose: 50 mg Documented By: Admin: 04/11/25 20:22 Dose: 50 mg Documented By: Admin: 04/11/25 08:11 Dose: 50 mg Documented By: Admin: 04/10/25 21:47 Dose: Not Given Documented By: Admin: 04/10/25 08:38 Dose: 50 mg Documented By: HORN PLAYER Admin: 04/09/25 21:37 Dose: 50 mg Documented By: Admin: 04/09/25 08:29 Dose: Not Given Documented By: LR Admin: 04/08/25 20:50 Dose: 50 mg Documented By: Admin: 04/08/25 08:43 Dose: 50 mg Documented By: Admin: 04/07/25 20:17 Dose: 50 mg Documented By: Admin: 04/07/25 09:03 Dose: 50 mg Documented By: Admin: 04/06/25 20:15 Dose: 50 mg Documented By: Admin: 04/06/25 08:16 Dose: 50 mg Documented By: Admin: 04/05/25 21:04 Dose: 50 mg Documented By: JESSIE Lamotrigine (Lamotrigine 100 Mg Tab) 200 mg PO [facility]; Protocol Stop: 05/05/25 20:59 Last Admin: 05/02/25 10:13 Dose: 200 mg Documented By: Admin: 05/01/25 21:23 Dose: 200 mg Documented By: Admin: 05/01/25 08:15 Dose: 200 mg Documented By: Admin: 04/30/25 19:48 Dose: 200 mg Documented By: Admin: 04/30/25 08:52 Dose: 200 mg Documented By: caridad Admin: 04/29/25 20:21 Dose: 200 mg Documented By: Admin: 04/29/25 09:51 Dose: 200 mg Documented By: Admin: 04/28/25 20:11 Dose: 200 mg Documented By: heb Admin: 04/28/25 10:52 Dose: 200 mg Documented By: Admin: 04/27/25 20:22 Dose: 200 mg Documented By: heb Admin: 04/27/25 08:57 Dose: 200 mg Documented By: Admin: 04/26/25 20:24 Dose: 200 mg Documented By: heb Admin: 04/26/25 08:41 Dose: 200 mg Documented By: foreign Admin: 04/25/25 19:37 Dose: 200 mg Documented By: Admin: 04/25/25 07:25 Dose: 200 mg Documented By: Admin: 04/24/25 20:38 Dose: 200 mg Documented By: Admin: 04/24/25 09:10 Dose: 200 mg Documented By: foreign Admin: 04/23/25 20:23 Dose: 200 mg Documented By: Admin: 04/23/25 09:04 Dose: 200 mg Documented By: foreign Admin: 04/22/25 20:19 Dose: 200 mg Documented By: Admin: 04/22/25 08:58 Dose: 200 mg Documented By: Admin: 04/21/25 20:47 Dose: 200 mg Documented By: Admin: 04/21/25 10:07 Dose: 200 mg Documented By: Admin: 04/20/25 20:15 Dose: 200 mg Documented By: Admin: 04/20/25 08:33 Dose: 200 mg Documented By: Admin: 04/19/25 20:04 Dose: 200 mg Documented By: Admin: 04/19/25 12:04 Dose: 200 mg Documented By: Admin: 04/18/25 21:04 Dose: 200 mg Documented By: Admin: 04/18/25 08:22 Dose: 200 mg Documented By: Admin: 04/17/25 20:27 Dose: 200 mg Documented By: Admin: 04/17/25 12:42 Dose: 200 mg Documented By: Admin: 04/16/25 21:58 Dose: 200 mg Documented By: mcl Admin: 04/16/25 08:37 Dose: 200 mg Documented By: Admin: 04/15/25 22:46 Dose: Not Given Documented By: Admin: 04/15/25 11:01 Dose: 200 mg Documented By: prem Admin: 04/14/25 21:13 Dose: 200 mg Documented By: Admin: 04/14/25 16:54 Dose: 200 mg Documented By: prem Admin: 04/13/25 20:41 Dose: 200 mg Documented By: SALON/SPA MANAGER Admin: 04/13/25 08:25 Dose: 200 mg Documented By: Admin: 04/12/25 20:36 Dose: 200 mg Documented By: Admin: 04/12/25 09:10 Dose: 200 mg Documented By: Admin: 04/11/25 20:22 Dose: 200 mg Documented By: Admin: 04/11/25 08:10 Dose: 200 mg Documented By: Admin: 04/10/25 21:47 Dose: Not Given Documented By: Admin: 04/10/25 08:37 Dose: 200 mg Documented By: cjk Admin: 04/09/25 21:37 Dose: 200 mg Documented By: Admin: 04/09/25 08:29 Dose: Not Given Documented By: LR Admin: 04/08/25 20:50 Dose: 200 mg Documented By: Admin: 04/08/25 08:43 Dose: 200 mg Documented By: Admin: 04/07/25 20:17 Dose: 200 mg Documented By: Admin: 04/07/25 09:02 Dose: 200 mg Documented By: Admin: 04/06/25 20:16 Dose: 200 mg Documented By: Admin: 04/06/25 08:16 Dose: 200 mg Documented By: Admin: 04/05/25 21:04 Dose: 200 mg Documented By: PNM Levetiracetam (Levetiracetam 500 Mg Tab) 1,500 mg PO BID SWAPNA Stop: 05/05/25 20:59 Last Admin: 05/02/25 10:14 Dose: 1,500 mg Documented By: Admin: 05/01/25 21:23 Dose: 1,500 mg Documented By: Admin: 05/01/25 08:12 Dose: 1,500 mg Documented By: Admin: 04/30/25 19:47 Dose: 1,500 mg Documented By: Admin: 04/30/25 08:51 Dose: 1,500 mg Documented By: caridad Admin: 04/29/25 20:22 Dose: 1,500 mg Documented By: Admin: 04/29/25 09:49 Dose: 1,500 mg Documented By: Admin: 04/28/25 20:11 Dose: 1,500 mg Documented By: heb Admin: 04/28/25 11:01 Dose: 1,500 mg Documented By: Admin: 04/27/25 20:21 Dose: 1,500 mg Documented By: heb Admin: 04/27/25 08:56 Dose: 1,500 mg Documented By: Admin: 04/26/25 20:24 Dose: 1,500 mg Documented By: heb Admin: 04/26/25 08:41 Dose: 1,500 mg Documented By: foreign Admin: 04/25/25 19:37 Dose: 1,500 mg Documented By: Admin: 04/25/25 07:19 Dose: 1,500 mg Documented By: Admin: 04/24/25 20:38 Dose: 1,500 mg Documented By: Admin: 04/24/25 09:08 Dose: 1,500 mg Documented By: cjk Admin: 04/15/25 08:13 Dose: Not Given Documented By: prem Admin: 04/14/25 21:13 Dose: Not Given Documented By: Admin: 04/11/25 20:40 Dose: Not Given Documented By: Admin: 04/11/25 08:09 Dose: 1,500 mg Documented By: Admin: 04/10/25 21:47 Dose: Not Given Documented By: Admin: 04/10/25 08:36 Dose: 1,500 mg Documented By: cjk Admin: 04/09/25 21:36 Dose: 1,500 mg Documented By: Admin: 04/09/25 08:29 Dose: Not Given Documented By: LR Admin: 04/08/25 20:49 Dose: 1,500 mg Documented By: Admin: 04/08/25 08:43 Dose: 1,500 mg Documented By: Admin: 04/07/25 20:16 Dose: 1,500 mg Documented By: Admin: 04/07/25 09:01 Dose: 1,500 mg Documented By: Admin: 04/06/25 20:18 Dose: 1,500 mg Documented By: Admin: 04/06/25 08:15 Dose: 1,500 mg Documented By: Admin: 04/05/25 21:04 Dose: 1,500 mg Documented By: PNM Metoprolol Succinate (Metoprolol Succ 25mg Ext Rel Tab) 25 mg PO QAM SWAPNA Stop: 05/12/25 08:59 Last Admin: 05/02/25 10:20 Dose: 25 mg Documented By: Admin: 05/01/25 08:14 Dose: 25 mg Documented By: Admin: 04/30/25 08:52 Dose: 25 mg Documented By: caridad Admin: 04/29/25 09:51 Dose: 25 mg Documented By: Admin: 04/28/25 11:02 Dose: 25 mg Documented By: Admin: 04/27/25 08:56 Dose: 25 mg Documented By: Admin: 04/26/25 08:42 Dose: 25 mg Documented By: foreign Admin: 04/25/25 07:20 Dose: 25 mg Documented By: HORN PLAYER Admin: 04/24/25 09:09 Dose: 25 mg Documented By: foreign Admin: 04/23/25 09:05 Dose: 25 mg Documented By: foreign Admin: 04/22/25 08:57 Dose: 25 mg Documented By: Admin: 04/21/25 10:07 Dose: 25 mg Documented By: Admin: 04/20/25 08:32 Dose: 25 mg Documented By: Admin: 04/19/25 08:55 Dose: 25 mg Documented By: Admin: 04/18/25 08:21 Dose: 25 mg Documented By: Admin: 04/17/25 12:43 Dose: 25 mg Documented By: MARY ANNE Admin: 04/16/25 08:39 Dose: 25 mg Documented By: Admin: 04/15/25 08:10 Dose: 25 mg Documented By: prem Admin: 04/14/25 16:56 Dose: 25 mg Documented By: prem Admin: 04/13/25 08:25 Dose: 25 mg Documented By: Admin: 04/12/25 09:10 Dose: 25 mg Documented By: ADRIANNE Ondansetron HCl (Ondansetron Inj 2 Mg/Ml 2 Ml Vial) 4 mg IV Q6H PRN PRN Reason: Nausea Stop: 05/05/25 16:42 Last Admin: 04/25/25 11:25 Dose: 4 mg Documented By: BRIAN Perphenazine (Perphenazine 2 Mg Tab) 1 mg PO QAM SWAPNA Stop: 05/07/25 08:59 Last Admin: 05/02/25 10:17 Dose: 1 mg Documented By: Admin: 05/01/25 08:13 Dose: 1 mg Documented By: Admin: 04/30/25 08:53 Dose: 1 mg Documented By: caridad Admin: 04/29/25 09:50 Dose: 1 mg Documented By: Admin: 04/28/25 11:02 Dose: 1 mg Documented By: Admin: 04/27/25 08:58 Dose: 1 mg Documented By: MARY ANNE Admin: 04/26/25 08:41 Dose: 1 mg Documented By: foreign Admin: 04/25/25 07:22 Dose: 1 mg Documented By: HORN PLAYER Admin: 04/24/25 09:09 Dose: 1 mg Documented By: foreign Admin: 04/23/25 09:05 Dose: 1 mg Documented By: foreign Admin: 04/22/25 08:57 Dose: 1 mg Documented By: Admin: 04/21/25 10:08 Dose: 1 mg Documented By: Admin: 04/20/25 08:33 Dose: 1 mg Documented By: Admin: 04/19/25 08:54 Dose: 1 mg Documented By: Admin: 04/18/25 08:24 Dose: 1 mg Documented By: Admin: 04/17/25 12:43 Dose: 1 mg Documented By: Admin: 04/16/25 08:36 Dose: 1 mg Documented By: Admin: 04/15/25 08:06 Dose: 1 mg Documented By: prem Admin: 04/14/25 17:16 Dose: Not Given Documented By: prem Admin: 04/13/25 08:25 Dose: 1 mg Documented By: [email or web address] Admin: 04/12/25 09:10 Dose: 1 mg Documented By: Admin: 04/11/25 08:19 Dose: Not Given Documented By: Admin: 04/10/25 08:37 Dose: 1 mg Documented By: foreign Admin: 04/09/25 08:29 Dose: Not Given Documented By: Admin: 04/08/25 08:43 Dose: 1 mg Documented By: Admin: 04/07/25 09:00 Dose: 1 mg Documented By: RAFAL Perphenazine (Perphenazine 2 Mg Tab) 3 mg PO HS SWAPNA Stop: 05/06/25 20:59 Last Admin: 05/01/25 21:24 Dose: 3 mg Documented By: Admin: 04/30/25 19:49 Dose: 3 mg Documented By: Admin: 04/29/25 20:34 Dose: 3 mg Documented By: Admin: 04/28/25 20:11 Dose: 3 mg Documented By: heb Admin: 04/27/25 20:19 Dose: 3 mg Documented By: [email or web address] Admin: 04/26/25 20:25 Dose: 3 mg Documented By: [email or web address] Admin: 04/25/25 19:38 Dose: 3 mg Documented By: Admin: 04/24/25 20:38 Dose: 3 mg Documented By: Admin: 04/23/25 20:24 Dose: 3 mg Documented By: Admin: 04/22/25 20:19 Dose: 3 mg Documented By: Admin: 04/21/25 20:47 Dose: 3 mg Documented By: Admin: 04/20/25 20:15 Dose: 3 mg Documented By: Admin: 04/19/25 20:04 Dose: 3 mg Documented By: Admin: 04/18/25 21:04 Dose: 3 mg Documented By: Admin: 04/17/25 20:25 Dose: 3 mg Documented By: Admin: 04/16/25 22:02 Dose: 3 mg Documented By: mcl Admin: 04/15/25 22:46 Dose: Not Given Documented By: Admin: 04/14/25 21:13 Dose: 3 mg Documented By: Admin: 04/13/25 20:42 Dose: 3 mg Documented By: SALON/SPA MANAGER Admin: 04/12/25 20:37 Dose: 3 mg Documented By: Admin: 04/11/25 20:25 Dose: 3 mg Documented By: JAMandy Admin: 04/10/25 21:47 Dose: Not Given Documented By: Admin: 04/09/25 21:37 Dose: 3 mg Documented By: Admin: 04/08/25 20:51 Dose: 3 mg Documented By: Admin: 04/07/25 20:19 Dose: 3 mg Documented By: Admin: 04/06/25 20:20 Dose: 3 mg Documented By: KML Polyethylene Glycol (Polyethylene (Miralax) 17 Gm Pack) 17 gm PO QAM [facility] Stop: 05/06/25 08:59 Last Admin: 05/02/25 10:17 Dose: 17 gm Documented By: Admin: 05/01/25 08:16 Dose: 17 gm Documented By: Admin: 04/30/25 08:51 Dose: 17 gm Documented By: caridad Admin: 04/29/25 09:48 Dose: 17 gm Documented By: Admin: 04/28/25 11:05 Dose: Not Given Documented By: Admin: 04/27/25 08:59 Dose: Not Given Documented By: Admin: 04/26/25 08:42 Dose: 17 gm Documented By: cjk Admin: 04/25/25 07:30 Dose: 17 gm Documented By: HORN PLAYER Admin: 04/24/25 09:08 Dose: 17 gm Documented By: cjk Admin: 04/23/25 09:22 Dose: 17 gm Documented By: adilenek Admin: 04/22/25 09:00 Dose: 17 gm Documented By: Admin: 04/21/25 10:08 Dose: Not Given Documented By: Admin: 04/20/25 08:36 Dose: Not Given Documented By: Admin: 04/19/25 09:12 Dose: 17 gm Documented By: Admin: 04/18/25 08:44 Dose: 17 gm Documented By: Admin: 04/17/25 12:38 Dose: 17 gm Documented By: Admin: 04/16/25 08:40 Dose: Not Given Documented By: Admin: 04/15/25 08:17 Dose: 17 gm Documented By: prem Admin: 04/14/25 14:17 Dose: Not Given Documented By: prem Admin: 04/13/25 08:25 Dose: Not Given Documented By: [email or web address] Admin: 04/12/25 09:10 Dose: 17 gm Documented By: Admin: 04/11/25 08:17 Dose: Not Given Documented By: Admin: 04/10/25 08:38 Dose: 17 gm Documented By: foreign Admin: 04/09/25 08:29 Dose: 17 gm Documented By: Admin: 04/08/25 08:44 Dose: 17 gm Documented By: Admin: 04/07/25 09:07 Dose: Not Given Documented By: Admin: 04/06/25 09:14 Dose: 17 gm Documented By: CS Potassium Chloride (Potassium Chloride 10 Meq Tabcr) 20 meq PO DAILY [facility] Stop: 05/28/25 08:59 Last Admin: 05/02/25 10:16 Dose: 20 meq Documented By: Admin: 05/01/25 08:11 Dose: 20 meq Documented By: Admin: 04/30/25 08:51 Dose: 20 meq Documented By: caridad Admin: 04/29/25 09:48 Dose: 20 meq Documented By: Admin: 04/28/25 11:04 Dose: 20 meq Documented By: ASA Quetiapine Fumarate (Quetiapine Fumarate 25 Mg Tablet) 50 mg PO QAM [facility] Stop: 05/06/25 08:59 Last Admin: 05/02/25 10:15 Dose: 50 mg Documented By: Admin: 05/01/25 08:13 Dose: 50 mg Documented By: Admin: 04/30/25 08:52 Dose: 50 mg Documented By: caridad Admin: 04/29/25 09:50 Dose: 50 mg Documented By: Admin: 04/28/25 11:03 Dose: 50 mg Documented By: Admin: 04/27/25 08:57 Dose: 50 mg Documented By: Admin: 04/26/25 08:42 Dose: 50 mg Documented By: cjk Admin: 04/25/25 07:28 Dose: 50 mg Documented By: HORN PLAYER Admin: 04/24/25 09:10 Dose: 50 mg Documented By: cjk Admin: 04/23/25 09:05 Dose: 50 mg Documented By: cjk Admin: 04/22/25 08:57 Dose: 50 mg Documented By: Admin: 04/21/25 10:07 Dose: 50 mg Documented By: Admin: 04/20/25 08:33 Dose: 50 mg Documented By: Admin: 04/19/25 08:52 Dose: 50 mg Documented By: Admin: 04/18/25 08:22 Dose: 50 mg Documented By: Admin: 04/17/25 12:44 Dose: 50 mg Documented By: Admin: 04/16/25 08:39 Dose: 50 mg Documented By: Admin: 04/15/25 08:34 Dose: 50 mg Documented By: prem Admin: 04/14/25 16:53 Dose: 50 mg Documented By: prem Admin: 04/13/25 08:25 Dose: 50 mg Documented By: Admin: 04/12/25 09:10 Dose: 50 mg Documented By: Admin: 04/11/25 08:19 Dose: Not Given Documented By: Admin: 04/10/25 08:36 Dose: 50 mg Documented By: foreign Admin: 04/09/25 08:29 Dose: Not Given Documented By: LR Admin: 04/08/25 08:43 Dose: 50 mg Documented By: Admin: 04/07/25 09:05 Dose: 50 mg Documented By: Admin: 04/06/25 08:17 Dose: 50 mg Documented By: RAFAL Quetiapine Fumarate (Quetiapine Fumarate 200 Mg Tab) 200 mg PO HS [facility]AP[facility] Stop: 05/05/25 20:59 Last Admin: 05/01/25 21:24 Dose: 200 mg Documented By: Admin: 04/30/25 19:46 Dose: 200 mg Documented By: Admin: 04/29/25 20:36 Dose: 200 mg Documented By: Admin: 04/28/25 20:15 Dose: 200 mg Documented By: heb Admin: 04/27/25 20:21 Dose: 200 mg Documented By: heb Admin: 04/26/25 20:27 Dose: 200 mg Documented By: heb Admin: 04/25/25 19:39 Dose: 200 mg Documented By: K Admin: 04/24/25 20:38 Dose: 200 mg Documented By: K Admin: 04/23/25 20:23 Dose: 200 mg Documented By: K Admin: 04/22/25 20:19 Dose: 200 mg Documented By: K Admin: 04/21/25 20:48 Dose: 200 mg Documented By: Admin: 04/20/25 20:48 Dose: 200 mg Documented By: flame burner: 04/19/25 20:05 Dose: 200 mg Documented By: Admin: 04/18/25 21:03 Dose: 200 mg Documented By: Admin: 04/17/25 20:25 Dose: 200 mg Documented By: Admin: 04/16/25 22:57 Dose: 200 mg Documented By: Admin: 04/15/25 22:04 Dose: 200 mg Documented By: Admin: 04/14/25 21:14 Dose: 200 mg Documented By: Admin: 04/13/25 22:04 Dose: 200 mg Documented By: Admin: 04/12/25 20:37 Dose: 200 mg Documented By: Admin: 04/11/25 20:26 Dose: 200 mg Documented By: Admin: 04/10/25 21:47 Dose: Not Given Documented By: Admin: 04/09/25 21:36 Dose: 200 mg Documented By: Admin: 04/08/25 20:49 Dose: 200 mg Documented By: Admin: 04/07/25 20:20 Dose: 200 mg Documented By: KMMandy Admin: 04/06/25 20:20 Dose: 200 mg Documented By: Admin: 04/05/25 21:04 Dose: 200 mg Documented By: PNM Sertraline HCl (Sertraline Hcl 100 Mg Tablet) 100 mg PO QAM [facility] Stop: 05/06/25 08:59 Last Admin: 05/02/25 10:13 Dose: 100 mg Documented By: Admin: 05/01/25 08:16 Dose: 100 mg Documented By: Admin: 04/30/25 08:52 Dose: 100 mg Documented By: caridad Admin: 04/29/25 09:50 Dose: 100 mg Documented By: Admin: 04/28/25 11:03 Dose: 100 mg Documented By: Admin: 04/27/25 08:57 Dose: 100 mg Documented By: MARY ANNE Admin: 04/26/25 08:42 Dose: 100 mg Documented By: [email or web address] Admin: 04/25/25 07:21 Dose: 100 mg Documented By: HORN PLAYER Admin: 04/24/25 09:09 Dose: 100 mg Documented By: cjk Admin: 04/23/25 09:05 Dose: 100 mg Documented By: cjk Admin: 04/22/25 08:58 Dose: 100 mg Documented By: Admin: 04/21/25 10:08 Dose: 100 mg Documented By: Admin: 04/20/25 08:33 Dose: 100 mg Documented By: Admin: 04/19/25 08:55 Dose: 100 mg Documented By: Admin: 04/18/25 08:26 Dose: 100 mg Documented By: Admin: 04/17/25 12:45 Dose: 100 mg Documented By: Admin: 04/16/25 08:40 Dose: 100 mg Documented By: Admin: 04/15/25 08:09 Dose: 100 mg Documented By: prem Admin: 04/14/25 17:17 Dose: 100 mg Documented By: prem Admin: 04/13/25 08:25 Dose: 100 mg Documented By: [email or web address] Admin: 04/12/25 09:10 Dose: 100 mg Documented By: Admin: 04/11/25 08:19 Dose: Not Given Documented By: Admin: 04/10/25 08:36 Dose: 100 mg Documented By: foreign Admin: 04/09/25 08:29 Dose: Not Given Documented By: LR Admin: 04/08/25 08:43 Dose: 100 mg Documented By: Admin: 04/07/25 09:04 Dose: 100 mg Documented By: Admin: 04/06/25 08:18 Dose: 100 mg Documented By: RAFAL
[2025-05-02] MEDS: LACTATED RINGER'S 500 ML IV ONE (13:56)
--- NOTE | 2025-05-03 13:15 | Hospitalist Progress Note ---
Date of Service May 03, 2025 Assessment & Plan (1) Nephrolithiasis: (2) Ureteral stent present: (3) Nonverbal: (4) Complicated UTI (urinary tract infection): (5) Severe intellectual disability: (6) Fatty (change of) liver, not elsewhere classified: (7) Tremor, unspecified: Plan 59 yo female with pmhx of severe intellectual disability c/b epilepsy, nonverbal status, fecal/urinary incontinence, s/p recent urethral stent placement, fatty liver disease, GERD, OCD, IAN, who presents for a fall from the [facility]. #Fall #Epilepsy #Breakthrough seizures -unclear cause of fall from bed, likely mechanical in nature -per caregiver patient currently at baseline, concern is that UTI cause fall and they do not want her to become septic -had breakthrough seizures on 04/11, cod monica called, discussed with neurology Plan: -recs followed per neurology -neurology consult, appreciate recs for consideration of seizure and polypharmacy -decreased dose of perphenazine -Awaiting rehab/fci facility placement -awaiting [facility], office of aging assessment -psychiatric consult placed per need for placement, appreciate recs -medically stable for discharge at this time #Chronic Normocytic Anemia -monitor -no signs or symptoms of bleeding at this time, BUN not elevated above normal limits at this time #Severe Bacteriuria #Ureteral Stent -s/p stent removal and placement this admission -s/p fluconazole Plan: -urology consult, appreciate recs -follow up outpatient -ID consult, appreciate recs #Abnormal CT Finding There is a new heterogeneous area of hypodensity in the periphery of the right lobe of the liver measuring 2.4 x 1.7 x 2.2 cm. -Further work up, management, and ff up as outpatient #Lateral T Wave Inversions -follow up outpatient, echo done #Severe Intellectual Disability #OCD #IAN -continue home meds austedo xr, perphenazine (decreased dose-3 mg at bedtime, 1 mg in the morning), seroquel, zoloft -continue miralax, bisacodyl suppository prn for constipation, -mouth care ordered -continue keppra and lamictal I spent a total of 35 minutes in direct patient care, including [id number] time with the patient and/or family, reviewing medical records, ordering and reviewing diagnostic tests, and coordinating care with other healthcare providers. This time includes: history taking, physical examination, medical decision making, counseling, ECG interpretation, imaging interpretation, lab interpretation, orders, and education, excluding time spent in the performance of separately billed services. Admission and Anticipated Discharge Date Admission Date: April 05, 2025 Subjective Patient seen and examined at bedside. [employer] employee at bedside. Patient comfortable today. Review of Systems Review of Systems: -unable to answer due to mental status Physical Exam Physical Exam: Gen: A&O 0 NAD HEENT: NCAT, EOMI, not icteric. External ears normal. No rhinorrhea. normal mucous membranes. Neck: Supple, full range of motion, no observable masses, No meningeal sign. Lungs: No Respiratory distress. CV: RRR, no edema. Abdomen: Soft, nondistended, No rebound tenderness. MSK: No joint swelling, no redness. Skin: No rashes, petechiae, lesions. Neuro: chronic tremors bilaterally, baseline per caregiver Results & Data Results & Data Vital Signs (Past 12 Hours) Vital Signs Temp Pulse Pulse Resp BP Pulse Ox O2 Del Method 05/03/25 09:33 61 05/03/25 08:41 36.6 C 58 L 16 124/78 93 Room Air 05/03/25 05:29 60 05/03/25 03:04 36.8 C 83 18 105/55 L 96 Room Air Medications Administered Chlorhexidine Gluconate (Chlorhexidine Gluconate 0.12% 480 Ml) 15 ml MT TID SWAPNA Stop: 05/05/25 17:14 Last Admin: 05/02/25 20:47 Dose: 15 ml Documented By: Admin: 05/02/25 14:06 Dose: 15 ml Documented By: irma Admin: 05/02/25 10:16 Dose: 15 ml Documented By: Admin: 05/01/25 21:23 Dose: 15 ml Documented By: Admin: 05/01/25 13:06 Dose: 15 ml Documented By: caridad Admin: 05/01/25 08:11 Dose: 15 ml Documented By: Admin: 04/30/25 19:45 Dose: 15 ml Documented By: Admin: 04/30/25 14:41 Dose: 15 ml Documented By: caridad Admin: 04/30/25 08:53 Dose: 15 ml Documented By: caridad Admin: 04/29/25 20:20 Dose: 15 ml Documented By: Admin: 04/29/25 13:19 Dose: 15 ml Documented By: Admin: 04/29/25 09:52 Dose: 15 ml Documented By: Admin: 04/28/25 20:12 Dose: 15 ml Documented By: heb Admin: 04/28/25 14:00 Dose: 15 ml Documented By: Admin: 04/28/25 10:57 Dose: 15 ml Documented By: Admin: 04/27/25 20:22 Dose: 15 ml Documented By: heb Admin: 04/27/25 13:31 Dose: 15 ml Documented By: Admin: 04/27/25 09:13 Dose: 15 ml Documented By: Admin: 04/26/25 20:27 Dose: 15 ml Documented By: heb Admin: 04/26/25 13:41 Dose: Not Given Documented By: cjk Admin: 04/26/25 08:42 Dose: 15 ml Documented By: cjk Admin: 04/25/25 19:37 Dose: 15 ml Documented By: Admin: 04/25/25 14:14 Dose: Not Given Documented By: PASSENGER COACH DRIVER Admin: 04/25/25 07:26 Dose: 15 ml Documented By: PASSENGER COACH DRIVER Admin: 04/24/25 20:38 Dose: 15 ml Documented By: K Admin: 04/24/25 12:03 Dose: Not Given Documented By: cjk Admin: 04/24/25 09:42 Dose: Not Given Documented By: cjk Admin: 04/23/25 20:23 Dose: 15 ml Documented By: Admin: 04/23/25 12:52 Dose: Not Given Documented By: cjk Admin: 04/23/25 09:29 Dose: Not Given Documented By: cjk Admin: 04/22/25 20:19 Dose: 15 ml Documented By: Admin: 04/22/25 14:38 Dose: Not Given Documented By: Admin: 04/22/25 08:58 Dose: 15 ml Documented By: Admin: 04/21/25 20:46 Dose: 15 ml Documented By: Admin: 04/21/25 13:17 Dose: 15 ml Documented By: Admin: 04/21/25 09:32 Dose: 15 ml Documented By: Admin: 04/20/25 20:15 Dose: 15 ml Documented By: Admin: 04/20/25 14:15 Dose: 15 ml Documented By: Admin: 04/20/25 08:35 Dose: 15 ml Documented By: Admin: 04/19/25 20:03 Dose: 15 ml Documented By: Admin: 04/19/25 14:28 Dose: 15 ml Documented By: Admin: 04/19/25 09:07 Dose: 15 ml Documented By: Admin: 04/18/25 21:05 Dose: 15 ml Documented By: Admin: 04/18/25 16:12 Dose: 15 ml Documented By: Admin: 04/18/25 08:26 Dose: 15 ml Documented By: Admin: 04/17/25 20:29 Dose: 15 ml Documented By: Admin: 04/17/25 16:13 Dose: 15 ml Documented By: Admin: 04/17/25 12:35 Dose: Not Given Documented By: Admin: 04/16/25 22:04 Dose: 15 ml Documented By: mcl Admin: 04/16/25 15:59 Dose: Not Given Documented By: Admin: 04/16/25 08:38 Dose: 15 ml Documented By: Admin: 04/15/25 22:06 Dose: 15 ml Documented By: Admin: 04/15/25 12:45 Dose: Not Given Documented By: prem Admin: 04/15/25 08:12 Dose: Not Given Documented By: prem Admin: 04/14/25 21:30 Dose: Not Given Documented By: Admin: 04/14/25 14:28 Dose: Not Given Documented By: prem Admin: 04/14/25 10:21 Dose: Not Given Documented By: prem Admin: 04/13/25 20:42 Dose: 15 ml Documented By: Admin: 04/13/25 13:48 Dose: 15 ml Documented By: Admin: 04/13/25 08:25 Dose: 15 ml Documented By: Admin: 04/12/25 20:35 Dose: 15 ml Documented By: Admin: 04/12/25 15:24 Dose: 15 ml Documented By: Admin: 04/12/25 08:20 Dose: 15 ml Documented By: Admin: 04/11/25 20:39 Dose: Not Given Documented By: Admin: 04/11/25 13:09 Dose: Not Given Documented By: Admin: 04/11/25 08:17 Dose: Not Given Documented By: Admin: 04/10/25 21:40 Dose: Not Given Documented By: Admin: 04/10/25 14:49 Dose: Not Given Documented By: cjk Admin: 04/10/25 08:38 Dose: 15 ml Documented By: cjk Admin: 04/09/25 21:26 Dose: Not Given Documented By: Admin: 04/09/25 13:23 Dose: Not Given Documented By: LR Admin: 04/09/25 08:14 Dose: Not Given Documented By: LR Admin: 04/08/25 20:48 Dose: Not Given Documented By: Admin: 04/08/25 13:17 Dose: Not Given Documented By: Admin: 04/08/25 08:44 Dose: Not Given Documented By: Admin: 04/07/25 20:16 Dose: 15 ml Documented By: Admin: 04/07/25 13:30 Dose: Not Given Documented By: Admin: 04/07/25 09:07 Dose: Not Given Documented By: Admin: 04/06/25 20:14 Dose: 15 ml Documented By: Admin: 04/06/25 13:28 Dose: Not Given Documented By: Admin: 04/06/25 08:15 Dose: 15 ml Documented By: Admin: 04/05/25 21:04 Dose: 15 ml Documented By: Admin: 04/05/25 18:48 Dose: Not Given Documented By: CS Clobazam (Clobazam 5 Mg Tab) 5 mg PO HS SWAPNA Stop: 05/05/25 20:59 Last Admin: 05/02/25 20:47 Dose: 5 mg Documented By: Admin: 05/01/25 21:23 Dose: 5 mg Documented By: Admin: 04/30/25 19:46 Dose: 5 mg Documented By: Admin: 04/29/25 20:33 Dose: 5 mg Documented By: Admin: 04/28/25 20:11 Dose: 5 mg Documented By: heb Admin: 04/27/25 20:29 Dose: 5 mg Documented By: heb Admin: 04/26/25 20:27 Dose: 5 mg Documented By: [email or web address] Admin: 04/25/25 19:37 Dose: 5 mg Documented By: Admin: 04/24/25 20:38 Dose: 5 mg Documented By: K Admin: 04/23/25 20:23 Dose: 5 mg Documented By: K Admin: 04/22/25 20:19 Dose: 5 mg Documented By: Admin: 04/21/25 20:46 Dose: 5 mg Documented By: Admin: 04/20/25 20:17 Dose: 5 mg Documented By: Admin: 04/19/25 20:03 Dose: 5 mg Documented By: Admin: 04/18/25 21:03 Dose: 5 mg Documented By: Admin: 04/17/25 21:51 Dose: 5 mg Documented By: Admin: 04/16/25 21:41 Dose: 5 mg Documented By: Admin: 04/15/25 22:21 Dose: 5 mg Documented By: Admin: 04/14/25 21:23 Dose: 5 mg Documented By: Admin: 04/13/25 20:41 Dose: 5 mg Documented By: Admin: 04/12/25 20:35 Dose: 5 mg Documented By: Admin: 04/11/25 20:23 Dose: 5 mg Documented By: Admin: 04/10/25 21:47 Dose: Not Given Documented By: Admin: 04/09/25 21:37 Dose: 5 mg Documented By: KSIhsan Admin: 04/08/25 21:29 Dose: 5 mg Documented By: Admin: 04/07/25 20:21 Dose: 5 mg Documented By: Admin: 04/06/25 20:22 Dose: 5 mg Documented By: KMMandy Admin: 04/05/25 21:27 Dose: 5 mg Documented By: JESSIE Hall (Austedo [Patient Own Med]) 1 each PO DAILY SWAPNA Stop: 05/06/25 08:59 Last Admin: 05/02/25 10:12 Dose: 1 each Documented By: Admin: 05/01/25 08:14 Dose: 1 each Documented By: Admin: 04/30/25 08:53 Dose: 1 each Documented By: caridad Admin: 04/29/25 09:52 Dose: 1 each Documented By: Admin: 04/28/25 10:57 Dose: 1 each Documented By: Admin: 04/27/25 08:58 Dose: 1 each Documented By: Admin: 04/26/25 08:42 Dose: 1 each Documented By: adilenek Admin: 04/25/25 07:27 Dose: 1 each Documented By: PASSENGER COACH DRIVER Admin: 04/24/25 09:42 Dose: Not Given Documented By: cjk Admin: 04/23/25 09:06 Dose: 1 each Documented By: cjk Admin: 04/22/25 08:58 Dose: 1 each Documented By: MTJamey Admin: 04/21/25 10:08 Dose: 1 each Documented By: MTJamey Admin: 04/20/25 08:35 Dose: 1 each Documented By: Admin: 04/19/25 12:05 Dose: 1 each Documented By: Admin: 04/18/25 08:27 Dose: 1 each Documented By: Admin: 04/17/25 17:08 Dose: Not Given Documented By: Admin: 04/16/25 08:38 Dose: 1 each Documented By: Admin: 04/15/25 08:06 Dose: 1 each Documented By: prem Admin: 04/14/25 17:15 Dose: 1 each Documented By: prem Admin: 04/13/25 08:25 Dose: 1 each Documented By: Admin: 04/12/25 09:10 Dose: 1 each Documented By: Admin: 04/11/25 08:19 Dose: Not Given Documented By: Admin: 04/10/25 08:38 Dose: 1 each Documented By: adilenek Admin: 04/09/25 08:29 Dose: Not Given Documented By: Admin: 04/08/25 08:43 Dose: 1 each Documented By: Admin: 04/07/25 09:04 Dose: 1 each Documented By: Admin: 04/06/25 08:19 Dose: 1 each Documented By: RAFAL Famotidine (Famotidine 40 Mg Tablet) 40 mg PO DAILY SWAPNA Stop: 05/06/25 08:59 Last Admin: 05/02/25 10:14 Dose: 40 mg Documented By: Admin: 05/01/25 08:14 Dose: 40 mg Documented By: Admin: 04/30/25 08:53 Dose: 40 mg Documented By: caridad Admin: 04/29/25 09:50 Dose: 40 mg Documented By: Admin: 04/28/25 10:56 Dose: 40 mg Documented By: Admin: 04/27/25 08:58 Dose: 40 mg Documented By: Admin: 04/26/25 08:42 Dose: 40 mg Documented By: cjk Admin: 04/25/25 07:20 Dose: 40 mg Documented By: PASSENGER COACH DRIVER Admin: 04/24/25 12:43 Dose: Not Given Documented By: cjk Admin: 04/23/25 09:05 Dose: 40 mg Documented By: cjk Admin: 04/22/25 08:57 Dose: 40 mg Documented By: Admin: 04/21/25 10:08 Dose: 40 mg Documented By: Admin: 04/20/25 08:32 Dose: 40 mg Documented By: Admin: 04/19/25 08:55 Dose: 40 mg Documented By: Admin: 04/18/25 08:22 Dose: 40 mg Documented By: Admin: 04/17/25 12:41 Dose: 40 mg Documented By: Admin: 04/16/25 08:37 Dose: 40 mg Documented By: Admin: 04/15/25 08:10 Dose: 40 mg Documented By: prem Admin: 04/14/25 16:55 Dose: 40 mg Documented By: prem Admin: 04/13/25 08:25 Dose: 40 mg Documented By: Admin: 04/12/25 09:10 Dose: 40 mg Documented By: Admin: 04/11/25 08:19 Dose: Not Given Documented By: Admin: 04/10/25 08:38 Dose: 40 mg Documented By: foreign Admin: 04/09/25 08:29 Dose: Not Given Documented By: LR Admin: 04/08/25 08:43 Dose: 40 mg Documented By: Admin: 04/07/25 09:07 Dose: Not Given Documented By: Admin: 04/06/25 08:17 Dose: 40 mg Documented By: CS Lamotrigine (Lamotrigine 25 Mg Tab) 50 mg PO [facility]END[facility]; Protocol Stop: 05/05/25 20:59 Last Admin: 05/02/25 20:47 Dose: 50 mg Documented By: Admin: 05/02/25 10:15 Dose: 50 mg Documented By: Admin: 05/01/25 21:23 Dose: 50 mg Documented By: Admin: 05/01/25 08:12 Dose: 50 mg Documented By: Admin: 04/30/25 19:49 Dose: 50 mg Documented By: Admin: 04/30/25 08:52 Dose: 50 mg Documented By: caridad Admin: 04/29/25 20:22 Dose: 50 mg Documented By: Admin: 04/29/25 09:48 Dose: 50 mg Documented By: Admin: 04/28/25 20:11 Dose: 50 mg Documented By: heb Admin: 04/28/25 10:50 Dose: 50 mg Documented By: Admin: 04/27/25 20:19 Dose: 50 mg Documented By: heb Admin: 04/27/25 08:59 Dose: 50 mg Documented By: Admin: 04/26/25 20:23 Dose: 50 mg Documented By: heb Admin: 04/26/25 08:41 Dose: 50 mg Documented By: foreign Admin: 04/25/25 19:37 Dose: 50 mg Documented By: Admin: 04/25/25 07:25 Dose: 50 mg Documented By: Admin: 04/24/25 20:38 Dose: 50 mg Documented By: Admin: 04/24/25 09:10 Dose: 50 mg Documented By: foreign Admin: 04/23/25 20:23 Dose: 50 mg Documented By: Admin: 04/23/25 09:05 Dose: 50 mg Documented By: foreign Admin: 04/22/25 20:19 Dose: 50 mg Documented By: Admin: 04/22/25 08:57 Dose: 50 mg Documented By: Admin: 04/21/25 20:47 Dose: 50 mg Documented By: Admin: 04/21/25 10:07 Dose: 50 mg Documented By: Admin: 04/20/25 20:15 Dose: 50 mg Documented By: Admin: 04/20/25 08:33 Dose: 50 mg Documented By: Admin: 04/19/25 20:04 Dose: 50 mg Documented By: Admin: 04/19/25 08:54 Dose: 50 mg Documented By: Admin: 04/18/25 21:04 Dose: 50 mg Documented By: Admin: 04/18/25 08:23 Dose: 50 mg Documented By: Admin: 04/17/25 20:27 Dose: 50 mg Documented By: Admin: 04/17/25 12:41 Dose: 50 mg Documented By: Admin: 04/16/25 22:04 Dose: 50 mg Documented By: mcl Admin: 04/16/25 08:35 Dose: 50 mg Documented By: Admin: 04/15/25 22:05 Dose: 25 mg Documented By: Admin: 04/15/25 08:07 Dose: 50 mg Documented By: prem Admin: 04/14/25 21:13 Dose: 50 mg Documented By: Admin: 04/14/25 16:55 Dose: 50 mg Documented By: prem Admin: 04/13/25 20:41 Dose: 50 mg Documented By: Admin: 04/13/25 08:25 Dose: 50 mg Documented By: TLJamey Admin: 04/12/25 20:36 Dose: 50 mg Documented By: JAMandy Admin: 04/12/25 09:10 Dose: 50 mg Documented By: Admin: 04/11/25 20:22 Dose: 50 mg Documented By: Admin: 04/11/25 08:11 Dose: 50 mg Documented By: Admin: 04/10/25 21:47 Dose: Not Given Documented By: Admin: 04/10/25 08:38 Dose: 50 mg Documented By: PASSENGER COACH DRIVER Admin: 04/09/25 21:37 Dose: 50 mg Documented By: Admin: 04/09/25 08:29 Dose: Not Given Documented By: LR Admin: 04/08/25 20:50 Dose: 50 mg Documented By: Admin: 04/08/25 08:43 Dose: 50 mg Documented By: Admin: 04/07/25 20:17 Dose: 50 mg Documented By: Admin: 04/07/25 09:03 Dose: 50 mg Documented By: Admin: 04/06/25 20:15 Dose: 50 mg Documented By: Admin: 04/06/25 08:16 Dose: 50 mg Documented By: Admin: 04/05/25 21:04 Dose: 50 mg Documented By: JESSIE Lamotrigine (Lamotrigine 100 Mg Tab) 200 mg PO [facility] PENDING SALE [facility]; Protocol Stop: 05/05/25 20:59 Last Admin: 05/02/25 20:47 Dose: 200 mg Documented By: Admin: 05/02/25 10:13 Dose: 200 mg Documented By: Admin: 05/01/25 21:23 Dose: 200 mg Documented By: Admin: 05/01/25 08:15 Dose: 200 mg Documented By: Admin: 04/30/25 19:48 Dose: 200 mg Documented By: Admin: 04/30/25 08:52 Dose: 200 mg Documented By: caridad Admin: 04/29/25 20:21 Dose: 200 mg Documented By: Admin: 04/29/25 09:51 Dose: 200 mg Documented By: Admin: 04/28/25 20:11 Dose: 200 mg Documented By: heb Admin: 04/28/25 10:52 Dose: 200 mg Documented By: Admin: 04/27/25 20:22 Dose: 200 mg Documented By: heb Admin: 04/27/25 08:57 Dose: 200 mg Documented By: Admin: 04/26/25 20:24 Dose: 200 mg Documented By: heb Admin: 04/26/25 08:41 Dose: 200 mg Documented By: foregin Admin: 04/25/25 19:37 Dose: 200 mg Documented By: Admin: 04/25/25 07:25 Dose: 200 mg Documented By: Admin: 04/24/25 20:38 Dose: 200 mg Documented By: Admin: 04/24/25 09:10 Dose: 200 mg Documented By: foreign Admin: 04/23/25 20:23 Dose: 200 mg Documented By: Admin: 04/23/25 09:04 Dose: 200 mg Documented By: foreign Admin: 04/22/25 20:19 Dose: 200 mg Documented By: Admin: 04/22/25 08:58 Dose: 200 mg Documented By: Admin: 04/21/25 20:47 Dose: 200 mg Documented By: Admin: 04/21/25 10:07 Dose: 200 mg Documented By: Admin: 04/20/25 20:15 Dose: 200 mg Documented By: Admin: 04/20/25 08:33 Dose: 200 mg Documented By: Admin: 04/19/25 20:04 Dose: 200 mg Documented By: Admin: 04/19/25 12:04 Dose: 200 mg Documented By: Admin: 04/18/25 21:04 Dose: 200 mg Documented By: Admin: 04/18/25 08:22 Dose: 200 mg Documented By: Admin: 04/17/25 20:27 Dose: 200 mg Documented By: Admin: 04/17/25 12:42 Dose: 200 mg Documented By: Admin: 04/16/25 21:58 Dose: 200 mg Documented By: mcl Admin: 04/16/25 08:37 Dose: 200 mg Documented By: Admin: 04/15/25 22:46 Dose: Not Given Documented By: Admin: 04/15/25 11:01 Dose: 200 mg Documented By: prem Admin: 04/14/25 21:13 Dose: 200 mg Documented By: Admin: 04/14/25 16:54 Dose: 200 mg Documented By: prem Admin: 04/13/25 20:41 Dose: 200 mg Documented By: Admin: 04/13/25 08:25 Dose: 200 mg Documented By: Admin: 04/12/25 20:36 Dose: 200 mg Documented By: Admin: 04/12/25 09:10 Dose: 200 mg Documented By: Admin: 04/11/25 20:22 Dose: 200 mg Documented By: Admin: 04/11/25 08:10 Dose: 200 mg Documented By: Admin: 04/10/25 21:47 Dose: Not Given Documented By: Admin: 04/10/25 08:37 Dose: 200 mg Documented By: cjk Admin: 04/09/25 21:37 Dose: 200 mg Documented By: Admin: 04/09/25 08:29 Dose: Not Given Documented By: LR Admin: 04/08/25 20:50 Dose: 200 mg Documented By: Admin: 04/08/25 08:43 Dose: 200 mg Documented By: Admin: 04/07/25 20:17 Dose: 200 mg Documented By: Admin: 04/07/25 09:02 Dose: 200 mg Documented By: Admin: 04/06/25 20:16 Dose: 200 mg Documented By: Admin: 04/06/25 08:16 Dose: 200 mg Documented By: Admin: 04/05/25 21:04 Dose: 200 mg Documented By: PNM Levetiracetam (Levetiracetam 500 Mg Tab) 1,500 mg PO BID SWAPNA Stop: 05/05/25 20:59 Last Admin: 05/02/25 20:47 Dose: 1,500 mg Documented By: Admin: 05/02/25 10:14 Dose: 1,500 mg Documented By: Admin: 05/01/25 21:23 Dose: 1,500 mg Documented By: Admin: 05/01/25 08:12 Dose: 1,500 mg Documented By: Admin: 04/30/25 19:47 Dose: 1,500 mg Documented By: Admin: 04/30/25 08:51 Dose: 1,500 mg Documented By: caridad Admin: 04/29/25 20:22 Dose: 1,500 mg Documented By: Admin: 04/29/25 09:49 Dose: 1,500 mg Documented By: Admin: 04/28/25 20:11 Dose: 1,500 mg Documented By: heb Admin: 04/28/25 11:01 Dose: 1,500 mg Documented By: Admin: 04/27/25 20:21 Dose: 1,500 mg Documented By: heb Admin: 04/27/25 08:56 Dose: 1,500 mg Documented By: Admin: 04/26/25 20:24 Dose: 1,500 mg Documented By: heb Admin: 04/26/25 08:41 Dose: 1,500 mg Documented By: adilenek Admin: 04/25/25 19:37 Dose: 1,500 mg Documented By: Admin: 04/25/25 07:19 Dose: 1,500 mg Documented By: Admin: 04/24/25 20:38 Dose: 1,500 mg Documented By: Admin: 04/24/25 09:08 Dose: 1,500 mg Documented By: foreign Admin: 04/15/25 08:13 Dose: Not Given Documented By: prem Admin: 04/14/25 21:13 Dose: Not Given Documented By: Admin: 04/11/25 20:40 Dose: Not Given Documented By: Admin: 04/11/25 08:09 Dose: 1,500 mg Documented By: Admin: 04/10/25 21:47 Dose: Not Given Documented By: Admin: 04/10/25 08:36 Dose: 1,500 mg Documented By: adilenek Admin: 04/09/25 21:36 Dose: 1,500 mg Documented By: Admin: 04/09/25 08:29 Dose: Not Given Documented By: Admin: 04/08/25 20:49 Dose: 1,500 mg Documented By: Admin: 04/08/25 08:43 Dose: 1,500 mg Documented By: Admin: 04/07/25 20:16 Dose: 1,500 mg Documented By: Admin: 04/07/25 09:01 Dose: 1,500 mg Documented By: Admin: 04/06/25 20:18 Dose: 1,500 mg Documented By: Admin: 04/06/25 08:15 Dose: 1,500 mg Documented By: Admin: 04/05/25 21:04 Dose: 1,500 mg Documented By: PNM Metoprolol Succinate (Metoprolol Succ 25mg Ext Rel Tab) 25 mg PO QAM SWAPNA Stop: 05/12/25 08:59 Last Admin: 05/02/25 10:20 Dose: 25 mg Documented By: Admin: 05/01/25 08:14 Dose: 25 mg Documented By: Admin: 04/30/25 08:52 Dose: 25 mg Documented By: caridad Admin: 04/29/25 09:51 Dose: 25 mg Documented By: Admin: 04/28/25 11:02 Dose: 25 mg Documented By: Admin: 04/27/25 08:56 Dose: 25 mg Documented By: Admin: 04/26/25 08:42 Dose: 25 mg Documented By: adilenek Admin: 04/25/25 07:20 Dose: 25 mg Documented By: PASSENGER COACH DRIVER Admin: 04/24/25 09:09 Dose: 25 mg Documented By: foreign Admin: 04/23/25 09:05 Dose: 25 mg Documented By: foreign Admin: 04/22/25 08:57 Dose: 25 mg Documented By: Admin: 04/21/25 10:07 Dose: 25 mg Documented By: Admin: 04/20/25 08:32 Dose: 25 mg Documented By: Admin: 04/19/25 08:55 Dose: 25 mg Documented By: Admin: 04/18/25 08:21 Dose: 25 mg Documented By: Admin: 04/17/25 12:43 Dose: 25 mg Documented By: MARY ANNE Admin: 04/16/25 08:39 Dose: 25 mg Documented By: Admin: 04/15/25 08:10 Dose: 25 mg Documented By: prem Admin: 04/14/25 16:56 Dose: 25 mg Documented By: prem Admin: 04/13/25 08:25 Dose: 25 mg Documented By: Admin: 04/12/25 09:10 Dose: 25 mg Documented By: ADRIANNE Ondansetron HCl (Ondansetron Inj 2 Mg/Ml 2 Ml Vial) 4 mg IV Q6H PRN PRN Reason: Nausea Stop: 05/05/25 16:42 Last Admin: 04/25/25 11:25 Dose: 4 mg Documented By: BRIAN Perphenazine (Perphenazine 2 Mg Tab) 1 mg PO QAM SWAPNA Stop: 05/07/25 08:59 Last Admin: 05/02/25 10:17 Dose: 1 mg Documented By: Admin: 05/01/25 08:13 Dose: 1 mg Documented By: Admin: 04/30/25 08:53 Dose: 1 mg Documented By: caridad Admin: 04/29/25 09:50 Dose: 1 mg Documented By: Admin: 04/28/25 11:02 Dose: 1 mg Documented By: Admin: 04/27/25 08:58 Dose: 1 mg Documented By: Admin: 04/26/25 08:41 Dose: 1 mg Documented By: foreign Admin: 04/25/25 07:22 Dose: 1 mg Documented By: Admin: 04/24/25 09:09 Dose: 1 mg Documented By: foreign Admin: 04/23/25 09:05 Dose: 1 mg Documented By: foreign Admin: 04/22/25 08:57 Dose: 1 mg Documented By: Admin: 04/21/25 10:08 Dose: 1 mg Documented By: Admin: 04/20/25 08:33 Dose: 1 mg Documented By: Admin: 04/19/25 08:54 Dose: 1 mg Documented By: Admin: 04/18/25 08:24 Dose: 1 mg Documented By: Admin: 04/17/25 12:43 Dose: 1 mg Documented By: Admin: 04/16/25 08:36 Dose: 1 mg Documented By: Admin: 04/15/25 08:06 Dose: 1 mg Documented By: prem Admin: 04/14/25 17:16 Dose: Not Given Documented By: prem Admin: 04/13/25 08:25 Dose: 1 mg Documented By: Admin: 04/12/25 09:10 Dose: 1 mg Documented By: Admin: 04/11/25 08:19 Dose: Not Given Documented By: Admin: 04/10/25 08:37 Dose: 1 mg Documented By: foreign Admin: 04/09/25 08:29 Dose: Not Given Documented By: Admin: 04/08/25 08:43 Dose: 1 mg Documented By: Admin: 04/07/25 09:00 Dose: 1 mg Documented By: RAFAL Perphenazine (Perphenazine 2 Mg Tab) 3 mg PO HS SWAPNA Stop: 05/06/25 20:59 Last Admin: 05/02/25 20:48 Dose: 3 mg Documented By: Admin: 05/01/25 21:24 Dose: 3 mg Documented By: Admin: 04/30/25 19:49 Dose: 3 mg Documented By: Admin: 04/29/25 20:34 Dose: 3 mg Documented By: Admin: 04/28/25 20:11 Dose: 3 mg Documented By: heb Admin: 04/27/25 20:19 Dose: 3 mg Documented By: heb Admin: 04/26/25 20:25 Dose: 3 mg Documented By: frandy Admin: 04/25/25 19:38 Dose: 3 mg Documented By: Admin: 04/24/25 20:38 Dose: 3 mg Documented By: Admin: 04/23/25 20:24 Dose: 3 mg Documented By: Admin: 04/22/25 20:19 Dose: 3 mg Documented By: Admin: 04/21/25 20:47 Dose: 3 mg Documented By: Admin: 04/20/25 20:15 Dose: 3 mg Documented By: Admin: 04/19/25 20:04 Dose: 3 mg Documented By: Admin: 04/18/25 21:04 Dose: 3 mg Documented By: Admin: 04/17/25 20:25 Dose: 3 mg Documented By: Admin: 04/16/25 22:02 Dose: 3 mg Documented By: [email or web address] Admin: 04/15/25 22:46 Dose: Not Given Documented By: Admin: 04/14/25 21:13 Dose: 3 mg Documented By: Admin: 04/13/25 20:42 Dose: 3 mg Documented By: Admin: 04/12/25 20:37 Dose: 3 mg Documented By: JAMandy Admin: 04/11/25 20:25 Dose: 3 mg Documented By: JAMandy Admin: 04/10/25 21:47 Dose: Not Given Documented By: Admin: 04/09/25 21:37 Dose: 3 mg Documented By: Admin: 04/08/25 20:51 Dose: 3 mg Documented By: Admin: 04/07/25 20:19 Dose: 3 mg Documented By: Admin: 04/06/25 20:20 Dose: 3 mg Documented By: KML Polyethylene Glycol (Polyethylene (Miralax) 17 Gm Pack) 17 gm PO QAM SWAPNA Stop: 05/06/25 08:59 Last Admin: 05/03/25 09:42 Dose: 17 gm Documented By: Admin: 05/02/25 10:17 Dose: 17 gm Documented By: Admin: 05/01/25 08:16 Dose: 17 gm Documented By: Admin: 04/30/25 08:51 Dose: 17 gm Documented By: caridad Admin: 04/29/25 09:48 Dose: 17 gm Documented By: Admin: 04/28/25 11:05 Dose: Not Given Documented By: Admin: 04/27/25 08:59 Dose: Not Given Documented By: Admin: 04/26/25 08:42 Dose: 17 gm Documented By: cjk Admin: 04/25/25 07:30 Dose: 17 gm Documented By: PASSENGER COACH DRIVER Admin: 04/24/25 09:08 Dose: 17 gm Documented By: cjk Admin: 04/23/25 09:22 Dose: 17 gm Documented By: cjk Admin: 04/22/25 09:00 Dose: 17 gm Documented By: Admin: 04/21/25 10:08 Dose: Not Given Documented By: Admin: 04/20/25 08:36 Dose: Not Given Documented By: Admin: 04/19/25 09:12 Dose: 17 gm Documented By: Admin: 04/18/25 08:44 Dose: 17 gm Documented By: Admin: 04/17/25 12:38 Dose: 17 gm Documented By: Admin: 04/16/25 08:40 Dose: Not Given Documented By: Admin: 04/15/25 08:17 Dose: 17 gm Documented By: prem Admin: 04/14/25 14:17 Dose: Not Given Documented By: prem Admin: 04/13/25 08:25 Dose: Not Given Documented By: Admin: 04/12/25 09:10 Dose: 17 gm Documented By: Admin: 04/11/25 08:17 Dose: Not Given Documented By: Admin: 04/10/25 08:38 Dose: 17 gm Documented By: cjk Admin: 04/09/25 08:29 Dose: 17 gm Documented By: LR Admin: 04/08/25 08:44 Dose: 17 gm Documented By: Admin: 04/07/25 09:07 Dose: Not Given Documented By: Admin: 04/06/25 09:14 Dose: 17 gm Documented By: CS Potassium Chloride (Potassium Chloride 10 Meq Tabcr) 20 meq PO DAILY SWAPNA Stop: 05/28/25 08:59 Last Admin: 05/02/25 10:16 Dose: 20 meq Documented By: Admin: 05/01/25 08:11 Dose: 20 meq Documented By: Admin: 04/30/25 08:51 Dose: 20 meq Documented By: caridad Admin: 04/29/25 09:48 Dose: 20 meq Documented By: Admin: 04/28/25 11:04 Dose: 20 meq Documented By: MARY ANNE Quetiapine Fumarate (Quetiapine Fumarate 25 Mg Tablet) 50 mg PO QAM SWAPNA Stop: 05/06/25 08:59 Last Admin: 05/02/25 10:15 Dose: 50 mg Documented By: Admin: 05/01/25 08:13 Dose: 50 mg Documented By: Admin: 04/30/25 08:52 Dose: 50 mg Documented By: caridad Admin: 04/29/25 09:50 Dose: 50 mg Documented By: Admin: 04/28/25 11:03 Dose: 50 mg Documented By: Admin: 04/27/25 08:57 Dose: 50 mg Documented By: MARY ANNE Admin: 04/26/25 08:42 Dose: 50 mg Documented By: foreign Admin: 04/25/25 07:28 Dose: 50 mg Documented By: Admin: 04/24/25 09:10 Dose: 50 mg Documented By: cjk Admin: 04/23/25 09:05 Dose: 50 mg Documented By: cjk Admin: 04/22/25 08:57 Dose: 50 mg Documented By: Admin: 04/21/25 10:07 Dose: 50 mg Documented By: Admin: 04/20/25 08:33 Dose: 50 mg Documented By: Admin: 04/19/25 08:52 Dose: 50 mg Documented By: Admin: 04/18/25 08:22 Dose: 50 mg Documented By: Admin: 04/17/25 12:44 Dose: 50 mg Documented By: Admin: 04/16/25 08:39 Dose: 50 mg Documented By: Admin: 04/15/25 08:34 Dose: 50 mg Documented By: prem Admin: 04/14/25 16:53 Dose: 50 mg Documented By: prem Admin: 04/13/25 08:25 Dose: 50 mg Documented By: Admin: 04/12/25 09:10 Dose: 50 mg Documented By: Admin: 04/11/25 08:19 Dose: Not Given Documented By: Admin: 04/10/25 08:36 Dose: 50 mg Documented By: foreign Admin: 04/09/25 08:29 Dose: Not Given Documented By: Admin: 04/08/25 08:43 Dose: 50 mg Documented By: Admin: 04/07/25 09:05 Dose: 50 mg Documented By: Admin: 04/06/25 08:17 Dose: 50 mg Documented By: CS Quetiapine Fumarate (Quetiapine Fumarate 200 Mg Tab) 200 mg PO HS SWAPNA Stop: 05/05/25 20:59 Last Admin: 05/02/25 20:48 Dose: 200 mg Documented By: Admin: 05/01/25 21:24 Dose: 200 mg Documented By: Admin: 04/30/25 19:46 Dose: 200 mg Documented By: Admin: 04/29/25 20:36 Dose: 200 mg Documented By: Admin: 04/28/25 20:15 Dose: 200 mg Documented By: heb Admin: 04/27/25 20:21 Dose: 200 mg Documented By: heb Admin: 04/26/25 20:27 Dose: 200 mg Documented By: heb Admin: 04/25/25 19:39 Dose: 200 mg Documented By: K Admin: 04/24/25 20:38 Dose: 200 mg Documented By: Admin: 04/23/25 20:23 Dose: 200 mg Documented By: Admin: 04/22/25 20:19 Dose: 200 mg Documented By: Admin: 04/21/25 20:48 Dose: 200 mg Documented By: Admin: 04/20/25 20:48 Dose: 200 mg Documented By: exchange trouble shooter: 04/19/25 20:05 Dose: 200 mg Documented By: Admin: 04/18/25 21:03 Dose: 200 mg Documented By: Admin: 04/17/25 20:25 Dose: 200 mg Documented By: Admin: 04/16/25 22:57 Dose: 200 mg Documented By: Admin: 04/15/25 22:04 Dose: 200 mg Documented By: Admin: 04/14/25 21:14 Dose: 200 mg Documented By: Admin: 04/13/25 22:04 Dose: 200 mg Documented By: Admin: 04/12/25 20:37 Dose: 200 mg Documented By: Admin: 04/11/25 20:26 Dose: 200 mg Documented By: Admin: 04/10/25 21:47 Dose: Not Given Documented By: Admin: 04/09/25 21:36 Dose: 200 mg Documented By: Admin: 04/08/25 20:49 Dose: 200 mg Documented By: Admin: 04/07/25 20:20 Dose: 200 mg Documented By: Admin: 04/06/25 20:20 Dose: 200 mg Documented By: Admin: 04/05/25 21:04 Dose: 200 mg Documented By: PNM Sertraline HCl (Sertraline Hcl 100 Mg Tablet) 100 mg PO QAM SWAPNA Stop: 05/06/25 08:59 Last Admin: 05/02/25 10:13 Dose: 100 mg Documented By: Admin: 05/01/25 08:16 Dose: 100 mg Documented By: J Admin: 04/30/25 08:52 Dose: 100 mg Documented By: caridad Admin: 04/29/25 09:50 Dose: 100 mg Documented By: Admin: 04/28/25 11:03 Dose: 100 mg Documented By: Admin: 04/27/25 08:57 Dose: 100 mg Documented By: Admin: 04/26/25 08:42 Dose: 100 mg Documented By: cjk Admin: 04/25/25 07:21 Dose: 100 mg Documented By: PASSENGER COACH DRIVER Admin: 04/24/25 09:09 Dose: 100 mg Documented By: cjk Admin: 04/23/25 09:05 Dose: 100 mg Documented By: cjk Admin: 04/22/25 08:58 Dose: 100 mg Documented By: Admin: 04/21/25 10:08 Dose: 100 mg Documented By: Admin: 04/20/25 08:33 Dose: 100 mg Documented By: Admin: 04/19/25 08:55 Dose: 100 mg Documented By: Admin: 04/18/25 08:26 Dose: 100 mg Documented By: Admin: 04/17/25 12:45 Dose: 100 mg Documented By: Admin: 04/16/25 08:40 Dose: 100 mg Documented By: Admin: 04/15/25 08:09 Dose: 100 mg Documented By: prem Admin: 04/14/25 17:17 Dose: 100 mg Documented By: prem Admin: 04/13/25 08:25 Dose: 100 mg Documented By: [email or web address] Admin: 04/12/25 09:10 Dose: 100 mg Documented By: Admin: 04/11/25 08:19 Dose: Not Given Documented By: Admin: 04/10/25 08:36 Dose: 100 mg Documented By: cjk Admin: 04/09/25 08:29 Dose: Not Given Documented By: Admin: 04/08/25 08:43 Dose: 100 mg Documented By: Admin: 04/07/25 09:04 Dose: 100 mg Documented By: Admin: 04/06/25 08:18 Dose: 100 mg Documented By: RAFAL
[2025-05-04] MEDS: FAMOTIDINE 20 MG TAB PO SCH (10:11)
--- NOTE | 2025-05-04 15:01 | Hospitalist Progress Note ---
Date of Service May 04, 2025 Assessment & Plan (1) Complicated UTI (urinary tract infection): (2) Nephrolithiasis: (3) Breakthrough seizure: (4) Epilepsy: (5) Ureteral stent present: (6) OCD (obsessive compulsive disorder): (7) Nonverbal: (8) Bladder incontinence: (9) Intellectual disability: (10) Repeated falls: (11) Liver lesion, right lobe: Plan Patient overall is doing well. Completed course of antibiotics. No further breakthrough seizures. Patient intermittently declines her medication. Today he did eventually take her medication with a family or staff from her senior care arrived. Continue to give patient her medications timing when she is willing to take appropriately Continue to pursue placement, communication with case management Daniela Salguero Encourage activity and rehabilitation as best as possible here in the hospital. Admission and Anticipated Discharge Date Admission Date: April 05, 2025 Subjective Patient nonverbal at baseline, per nursing refused her medications last night and this morning. After staff came in from her senior care patient did then be agreeable to taking her medications. Physical Exam Physical Exam: Constitutional: Alert, nontoxic HEENT: Mucous membranes moist. Lungs: Clear to auscultation, decreased, no wheezes rales or rhonchi CV: S1-S2, regular Abdomen: Soft, nontender, nondistended Extremities: No significant edema Neuro: Nonverbal Psych: Cooperative, flat affect Results & Data Results & Data Vital Signs (Past 12 Hours) Vital Signs Temp Pulse Pulse Resp BP Pulse Ox O2 Del Method 05/04/25 12:33 Room Air 05/04/25 11:38 36.6 C 83 18 163/72 H 96 Room Air 05/04/25 08:06 37.0 C 81 20 167/72 H 94 Room Air 05/04/25 07:30 71 05/04/25 03:44 36.3 C L 74 20 133/78 95 Room Air Diagnostic Findings Reviewed imaging, laboratory and diagnostic studies. Pertinent findings as below.
[2025-05-05 07:00] LABS: Hematocrit (blood only) 26.4 % (37.0-47.0); Hemoglobin 8.1 g/dl (12.0-16.0); Mean Corpuscular Hemoglobin 23.8 pg (25.0-34.0); Mean Corpuscular Volume 77.6 fL (80.0-100.0); Platelet Count 339 K/uL (130-400); RDW Standard Deviation 49.5 fL (36.4-46.3); Red Blood Count 3.40 M/uL (4.20-5.40); White Blood Count 6.08 K/ul (4.8-10.8)
[2025-05-05 07:24] LABS: Anion Gap 6.0 (3-11); Blood Urea Nitrogen 13.0 mg/dl (6-23); Calcium 8.6 mg/dl (8.6-10.3); Carbon Dioxide 28.0 mmol/L (21-32); Chloride 105.0 mmol/L (98-107); Creatinine Clr Calc Pharmacy 59.3 ml/min; Glucose 91.0 mg/dl (70-99(Fasting)); Potassium 3.8 mmol/L (3.5-5.1); Sodium 139.0 mmol/L (136-145)
--- NOTE | 2025-05-05 10:31 | Hospitalist Progress Note ---
Date of Service May 05, 2025 Assessment & Plan (1) Complicated UTI (urinary tract infection): (2) Nephrolithiasis: (3) Breakthrough seizure: (4) Epilepsy: (5) Ureteral stent present: (6) OCD (obsessive compulsive disorder): (7) Nonverbal: (8) Bladder incontinence: (9) Intellectual disability: (10) Repeated falls: (11) Liver lesion, right lobe: (12) Chronic disease anemia: Plan Continue with current plan of care. Communication with case management continuing to weights documentation/clearance from state Continue to encourage activity as able Laboratory studies as needed Admission and Anticipated Discharge Date Admission Date: April 05, 2025 Subjective No reported issues overnight. Took her medicines mostly this morning. Works well when her caregiver is here in the afternoons. Physical Exam Physical Exam: Constitutional: Sleepy and not interested in interacting too much HEENT: Mucous membranes moist. Lungs: No respiratory distress CV: regular Abdomen: Soft, Extremities: No significant edema Neuro: Baseline functioning Psych: Cooperative, normal mood Results & Data Results & Data Vital Signs (Past 12 Hours) Vital Signs Temp Pulse Resp BP Pulse Ox O2 Del Method 05/05/25 07:36 36.8 C 62 20 132/70 97 Room Air 05/05/25 00:32 36.8 C 76 20 147/80 H 95 Room Air Diagnostic Findings Reviewed imaging, laboratory and diagnostic studies. Pertinent findings as below. Hemoglobin 8.1, improved Platelets at 339 Electrolytes within normal range Creatinine 0.78 Glucose 91
--- NOTE | 2025-05-05 21:16 | Communication Note ---
Date of Service: May 05, 2025 Patient refusing oral meds. Monthly admissions since November 2024. Patient has pulled out IV sites before from agitation requiring mitts as per RN. Patient baseline confused and nonverbal as per RN. IV Keppra while patient refusing to take oral Keppra. Consider palliative care consultation in a.m. to discuss goals of care with patient family/guardian.
--- NOTE | 2025-05-06 12:34 | Hospitalist Progress Note ---
Date of Service May 06, 2025 Assessment & Plan (1) Complicated UTI (urinary tract infection): (2) Nephrolithiasis: (3) Breakthrough seizure: (4) Epilepsy: (5) Ureteral stent present: (6) OCD (obsessive compulsive disorder): (7) Nonverbal: (8) Bladder incontinence: (9) Intellectual disability: (10) Repeated falls: (11) Liver lesion, right lobe: (12) Chronic disease anemia: Plan Patient 59-year-old female who is nonverbal and has intellectual disability. Difficult for her to communicate her wants and needs effectively. I also believe patient is restless and upset with this change in her routine, multiple different caregivers and in an unfamiliar setting. Nursing reports that when her routine caregivers from [facility] are there she is much better spirits, cooperative, takes medications. Extensive conversation with nursing team that they should try to learn from her [facility] caregivers how she responds to different interventions, what interventions they used to keep her calm how they may get her to take her medications as prescribed excetra. Patient does not need an IV, we will resume her oral Keppra and discontinue the IV Keppra. Remove the IV since this causes the patient's significant distress. Remove the mitt restraints again I believe this causes more distress to the patient and benefit. She is not being agitated or aggressive with the mitts off. Continue to pursue placement Long conversation with the patient at bedside explaining to her that we are doing our best to try and take the very best care for her. Told her that I would remove the IV and remove the mitt restraints. Tried to reassure her that all of us have her best interest in mind and that we want her to get better and that means she has to take her medications as prescribed. 55 minutes spent in bedside conversation with the patient, review record, teaching and education and communication with nursing team, communication with case management, documentation and placing orders Admission and Anticipated Discharge Date Admission Date: April 05, 2025 Subjective Events of last evening reviewed. Unfortunately patient did not take oral medications, got more agitated when IV was placed pulled out IV and restraints were placed. Patient now calm and cooperative. Physical Exam Physical Exam: Constitutional: Awake, nonverbal HEENT: Mucous membranes moist. Lungs: Clear to auscultation, decreased, no wheezes rales or rhonchi CV: S1-S2, regular Abdomen: Soft, nontender, nondistended Extremities: No significant edema Neuro: At baseline Psych: Cooperative at this time Results & Data Results & Data Vital Signs (Past 12 Hours) Vital Signs Temp Pulse Resp BP Pulse Ox O2 Del Method 05/06/25 12:09 Room Air 05/06/25 07:57 36.4 C L 61 16 123/45 L 92 Room Air
--- NOTE | 2025-05-07 12:17 | Hospitalist Progress Note ---
Date of Service May 07, 2025 Assessment & Plan (1) Complicated UTI (urinary tract infection): (2) Nephrolithiasis: (3) Breakthrough seizure: (4) Epilepsy: (5) Ureteral stent present: (6) OCD (obsessive compulsive disorder): (7) Nonverbal: (8) Bladder incontinence: (9) Intellectual disability: (10) Repeated falls: (11) Liver lesion, right lobe: (12) Chronic disease anemia: Plan Patient overall doing well. Completed all antibiotics. Continue therapies as tolerated Continue to pursue placement options Continue current medical regimen Encourage nursing staff to continue to learn from her caregivers house the patient responds best when attempting to give medications, feedings, etc. Admission and Anticipated Discharge Date Admission Date: April 05, 2025 Subjective Overall doing well. Nursing reports that she responds well to the [facility] that is with her and takes her medications when they encouraged her. Physical Exam Physical Exam: Constitutional: Asleep but easily awakened HEENT: Mucous membranes moist. Lungs: Clear to auscultation, decreased, no wheezes rales or rhonchi CV: S1-S2, regular Abdomen: Soft, nontender, nondistended Extremities: No significant edema Neuro: at baseline Psych: Cooperative on her timeline Results & Data Results & Data Vital Signs (Past 12 Hours) Vital Signs Temp Pulse Resp BP Pulse Ox O2 Del Method 05/07/25 11:17 Room Air 05/07/25 08:23 36.8 C 61 16 112/65 92 Room Air
--- NOTE | 2025-05-08 11:33 | Hospitalist Progress Note ---
Date of Service May 08, 2025 Assessment & Plan (1) Complicated UTI (urinary tract infection): Plan: Completed treatment (2) Nephrolithiasis: Plan: Stable (3) Breakthrough seizure: Plan: Controlled (4) Epilepsy: (5) Ureteral stent present: (6) OCD (obsessive compulsive disorder): (7) Nonverbal: (8) Bladder incontinence: (9) Intellectual disability: (10) Repeated falls: (11) Liver lesion, right lobe: (12) Chronic disease anemia: Plan Patient overall stable and at her baseline functioning Anticipate patient's current behaviors are her baseline, as she builds trust with her caregivers I anticipate that she will be more compliant and take medications at the scheduled time, and in the meantime continue to work with the patient throughout the day to find a time when she is willing to take medications Therapies as able Case management to continue to pursue placement options Admission and Anticipated Discharge Date Admission Date: April 05, 2025 Subjective Patient a bit more interactive this morning. Nursing reports that she continues to intermittently refuse medications at certain times but eventually will take prescribed meds Physical Exam Physical Exam: Constitutional: Alert, more interactive today HEENT: Mucous membranes moist. Lungs: No respiratory distress CV: Regular Abdomen: Soft, Extremities: No significant edema Neuro: At her baseline deficits, nonverbal Psych: Fluctuating cooperativeness Results & Data Results & Data Vital Signs (Past 12 Hours) Vital Signs Temp Pulse Resp BP Pulse Ox O2 Del Method 05/08/25 07:52 36.7 C 67 16 149/81 H 94 Room Air 05/07/25 23:41 36.3 C L 58 L 18 165/75 H 96 Room Air
--- NOTE | 2025-05-09 10:16 | Hospitalist Progress Note ---
Date of Service May 09, 2025 Assessment & Plan (1) Complicated UTI (urinary tract infection): Plan: Completed treatment (2) Nephrolithiasis: Plan: Stable (3) Breakthrough seizure: Plan: Controlled (4) Epilepsy: (5) Ureteral stent present: (6) OCD (obsessive compulsive disorder): (7) Nonverbal: (8) Bladder incontinence: (9) Intellectual disability: (10) Repeated falls: (11) Liver lesion, right lobe: (12) Chronic disease anemia: Plan Continue current care Communication with case management, continuing to work through clearances with the state Reviewed most recent labs from 05/05/2025. Stable. Consider weekly labs while in the hospital Admission and Anticipated Discharge Date Admission Date: April 05, 2025 Subjective Patient requesting a drink through pointing out her communication board. Likes Coke Zero Physical Exam Physical Exam: Constitutional: Alert, comfortable, nontoxic HEENT: Mucous membranes moist. Lungs: No respiratory distress CV: Regular Abdomen: Soft Extremities: No significant edema Neuro: At her baseline deficits, nonverbal Psych: Cooperative in her own time Results & Data Results & Data Vital Signs (Past 12 Hours) Vital Signs Temp Pulse Resp BP Pulse Ox O2 Del Method 05/09/25 08:28 36.5 C 57 L 20 108/55 L 95 Room Air 05/08/25 23:26 36.5 C 70 16 139/65 96 Room Air
--- NOTE | 2025-05-10 12:53 | Hospitalist Progress Note ---
Date of Service May 10, 2025 Assessment & Plan (1) Complicated UTI (urinary tract infection): (2) Nephrolithiasis: (3) Breakthrough seizure: (4) Epilepsy: (5) Ureteral stent present: (6) OCD (obsessive compulsive disorder): (7) Nonverbal: (8) Bladder incontinence: (9) Intellectual disability: (10) Repeated falls: (11) Liver lesion, right lobe: (12) Chronic disease anemia: Plan Continue current level care, patient has completed all interventions that requires hospital level care. Communication with case management, this she did receive feedback from the state. It seems as though the patient's application and is progressing through the various departments that need approval. Anticipate patient will be placed when approved by the state. In continue to encourage nursing staff to learn from her previous caregivers how best to work with her on a daily basis understanding that timing of medications may be altered with patient's ability and desire to take her medications. Admission and Anticipated Discharge Date Admission Date: April 05, 2025 Subjective No acute issues overnight Physical Exam Physical Exam: Constitutional: Alert HEENT: Mucous membranes moist. Lungs: No respiratory distress CV: Regular Abdomen: Soft, Extremities: No significant edema Neuro: At her baseline, nonverbal Psych: Overall cooperative Results & Data Results & Data Vital Signs (Past 12 Hours) Vital Signs Temp Pulse Resp BP Pulse Ox O2 Del Method 05/10/25 08:28 36.9 C 61 18 118/70 95 Room Air
--- NOTE | 2025-05-11 11:45 | Hospitalist Progress Note ---
Date of Service May 11, 2025 Assessment & Plan (1) Complicated UTI (urinary tract infection): (2) Nephrolithiasis: (3) Breakthrough seizure: (4) Epilepsy: (5) Ureteral stent present: (6) OCD (obsessive compulsive disorder): (7) Nonverbal: (8) Bladder incontinence: (9) Intellectual disability: (10) Repeated falls: (11) Liver lesion, right lobe: (12) Chronic disease anemia: Plan Per prior provider w/ addendum Continue current level care, patient has completed all interventions that requires hospital level care. Communication with case management, she did receive feedback from the state. It seems as though the patient's application and is progressing through the various departments that need approval. Anticipate patient will be placed when approved by the state. In continue to encourage nursing staff to learn from her previous caregivers how best to work with her on a daily basis understanding that timing of medications may be altered with patient's ability and desire to take her medications. 05/11 Discussed w/ RN today. Pt took her meds, no acute events. Pt awake, appears comfortable/ at baseline. Admission and Anticipated Discharge Date Admission Date: April 05, 2025 Subjective Pt seen in follow up Pt had urologic procedures during this hospital stay Currently lying in bed, in NAD, awake, alert, appears comfortable [facility] caregiver sometimes present at bedside per report. No signs of pain, shortness of breath or seizure activity No other new symptoms Discussed with instructional technology teacher of Systems Review of Systems: Unobtainable due to mental health condition Physical Exam Physical Exam: General- WD/WN F , nonverbal, not in distress, breathing with no effort or accessory muscle use Eyes- anicteric Neck- no JVD Lungs- clear breath sounds anteriorly, no crackles or wheezes Heart- normal rate, regular rhythm; no murmurs Abdomen- normal bowel sounds, nondistended, soft, no tenderness appreciated Extremities- no pretibial edema, moves extremities Neuro- awake, alert , moves extremities Skin- warm & dry Results & Data Results & Data Vital Signs (Past 12 Hours) Vital Signs Temp Pulse Resp BP Pulse Ox O2 Del Method 05/11/25 07:56 36.6 C 58 L 16 147/73 H 94 Room Air Medications Administered Current Inpatient Medications Acetaminophen (Acetaminophen 500 Mg Tab) 1,000 mg PO Q4H PRN PRN Reason: elevated temp/headache/mild pain Stop: 06/04/25 16:42 Bisacodyl (Bisacodyl 5 Mg Tabec) 10 mg PO Q3D PRN PRN Reason: Constipation Stop: 06/04/25 16:42 Chlorhexidine Gluconate (Chlorhexidine Gluconate 0.12% 480 Ml) 15 ml MT TID [facility] Stop: 06/04/25 17:14 Last Admin: 05/11/25 09:03 Dose: 15 ml Clobazam (Clobazam 5 Mg Tab) 5 mg PO HS [facility] Stop: 06/04/25 20:59 Last Admin: 05/10/25 19:59 Dose: 5 mg Deutetrabenazine (Austedo [Patient Own Med]) 1 each PO DAILY [facility] Stop: 06/04/25 08:59 Last Admin: 05/11/25 09:03 Dose: 1 each Famotidine (Famotidine 20 Mg Tab) 20 mg PO DAILY [facility] Stop: 06/04/25 08:59 Last Admin: 05/11/25 09:00 Dose: 20 mg Lamotrigine (Lamotrigine 25 Mg Tab) 50 mg PO [facility]; Protocol Stop: 06/04/25 20:59 Last Admin: 05/11/25 09:00 Dose: 50 mg Lamotrigine (Lamotrigine 100 Mg Tab) 200 mg PO [facility]; Protocol Stop: 06/04/25 20:59 Last Admin: 05/11/25 09:02 Dose: 200 mg Levetiracetam (Levetiracetam 500 Mg Tab) 1,500 mg PO BID [facility] Stop: 06/04/25 20:59 Last Admin: 05/11/25 09:00 Dose: 1,500 mg Metoprolol Succinate (Metoprolol Succ 25mg Ext Rel Tab) 25 mg PO QAM [facility] Stop: 06/04/25 08:59 Last Admin: 05/11/25 09:01 Dose: 25 mg Nystatin (Nystatin Powder 15gm Btl) 1 appln EXT Q8 PRN PRN Reason: Affected Skin Folds Stop: 06/04/25 01:07 Ondansetron HCl (Ondansetron Inj 2 Mg/Ml 2 Ml Vial) 4 mg IV Q6H PRN PRN Reason: Nausea Stop: 06/04/25 16:42 Last Admin: 04/25/25 11:25 Dose: 4 mg Perphenazine (Perphenazine 2 Mg Tab) 1 mg PO QAM [facility] Stop: 06/04/25 08:59 Last Admin: 05/11/25 09:01 Dose: 1 mg Perphenazine (Perphenazine 2 Mg Tab) 3 mg PO HS [facility] Stop: 06/04/25 20:59 Last Admin: 05/10/25 19:59 Dose: 3 mg Polyethylene Glycol (Polyethylene (Miralax) 17 Gm Pack) 17 gm PO QAM [facility] Stop: 06/04/25 08:59 Last Admin: 05/11/25 09:00 Dose: 17 gm Polyethylene Glycol (Polyethylene (Miralax) 17 Gm Pack) 17 gm PO DAILY PRN PRN Reason: Constipation Stop: 06/04/25 16:42 Potassium Chloride (Potassium Chloride 10 Meq Tabcr) 20 meq PO DAILY [facility] Stop: 06/04/25 08:59 Last Admin: 05/11/25 09:00 Dose: 20 meq Quetiapine Fumarate (Quetiapine Fumarate 25 Mg Tablet) 50 mg PO QAM [facility] Stop: 06/04/25 08:59 Last Admin: 05/11/25 09:01 Dose: 50 mg Quetiapine Fumarate (Quetiapine Fumarate 200 Mg Tab) 200 mg PO HS [facility] Stop: 06/04/25 20:59 Last Admin: 05/10/25 20:00 Dose: 200 mg Sertraline HCl (Sertraline Hcl 100 Mg Tablet) 100 mg PO QAM [facility] Stop: 06/04/25 08:59 Last Admin: 05/11/25 09:00 Dose: 100 mg
[2025-05-12 07:06] LABS: Hematocrit (blood only) 26.6 % (37.0-47.0); Hemoglobin 8.6 g/dl (12.0-16.0); Mean Corpuscular Hemoglobin 24.6 pg (25.0-34.0); Mean Corpuscular Volume 76.2 fL (80.0-100.0); Platelet Count 341 K/uL (130-400); RDW Standard Deviation 49.0 fL (36.4-46.3); Red Blood Count 3.49 M/uL (4.20-5.40); White Blood Count 20.26 K/ul (4.8-10.8)
[2025-05-12] MEDS: ACETAMINOPHEN 500 MG TAB PO PRN (07:32)
[2025-05-12 07:38] LABS: Anion Gap 8.0 (3-11); Blood Urea Nitrogen 15.0 mg/dl (6-23); Calcium 8.5 mg/dl (8.6-10.3); Carbon Dioxide 26.0 mmol/L (21-32); Chloride 100.0 mmol/L (98-107); Creatinine Clr Calc Pharmacy 54.1 ml/min; Glucose 122.0 mg/dl (70-99(Fasting)); Magnesium 1.6 mg/dl (1.7-2.4); Potassium 3.9 mmol/L (3.5-5.1); Sodium 134.0 mmol/L (136-145)
[2025-05-12] MEDS ORDERED: VANCOMYCIN CONSULT ACTIVE PRN (16:57)
[2025-05-12] MEDS ORDERED: VANCOMYCIN HCL / NSS 1,000 MG/270 ML BAG IV SCH (17:00)
--- NOTE | 2025-05-12 17:06 | Hospitalist Progress Note ---
Date of Service May 12, 2025 Assessment & Plan (1) Complicated UTI (urinary tract infection): (2) Nephrolithiasis: (3) Breakthrough seizure: (4) Epilepsy: (5) Ureteral stent present: (6) OCD (obsessive compulsive disorder): (7) Nonverbal: (8) Bladder incontinence: (9) Intellectual disability: (10) Repeated falls: (11) Liver lesion, right lobe: (12) Chronic disease anemia: Plan Per previous provider w/ addendum: (1) Nephrolithiasis: (2) Ureteral stent present: (3) Nonverbal: (4) Complicated UTI (urinary tract infection): (5) Severe intellectual disability: (6) Fatty (change of) liver, not elsewhere classified: (7) Tremor, unspecified: Plan 59 yo female with pmhx of severe intellectual disability c/b epilepsy, nonverbal status, fecal/urinary incontinence, s/p recent urethral stent placement, fatty liver disease, GERD, OCD, IAN, who presents for a fall from the [facility]. #Fall #Epilepsy #Breakthrough seizures -unclear cause of fall from bed, likely mechanical in nature vs UTI -had breakthrough seizures on 04/11, code purple called, discussed with neurology Plan: -gentle hydration -recs followed per neurology -neurology consult, appreciate recs for consideration of seizure and p olypharmacy -decreased dose of perphenazine #Severe Bacteriuria #Ureteral Stent -UA appears to be significantly infected in setting of chronic colonization -s/p stent removal and placement this admission Plan: -urology consulted, 04/21: Status post removal of right ureteral stent -follow up outpatient -ID consulted -given fluconazole, was treated w/ ceftriaxone #Abnormal CT Finding There is a new heterogeneous area of hypodensity in the periphery of the right lobe of the liver measuring 2.4 x 1.7 x 2.2 cm. -Further work up, management, and ff up as outpatient #Lateral T Wave Inversions -new from 2017 -echo with need for follow up outpatient #Severe Intellectual Disability #OCD #IAN -continue home meds austedo xr, perphenazine (decreased dose-3 mg at bedtime, 1 mg in the morning), seroquel, zoloft -continue miralax, bisacodyl suppository prn for constipation, -mouth care ordered -continue keppra and lamictal 05/11 Discussed w/ RN today. Pt took her meds, no acute events. Pt awake, appears comfortable/ at baseline. 05/12 Pt spiked fever, CBC obtained and WBC elevated. Pt nonverbal at baseline. Has Shafer placed and had urological procedures during this admission. Will exchange shafer, UA, CXR, blood cultures. will start empiric abx. Will obtain dopplers of LEs. will start IVF and also switch keppra to IV as pt did not take her po meds today. Cont. to closely monitor Admission and Anticipated Discharge Date Admission Date: April 05, 2025 Subjective Pt seen in follow up Pt had urologic procedures during this hospital stay Recently she has been doing well, however today pt febrile. blood work obtained and WBC elevated. Will obtain urine, cxr, blood cultx, will start empiric abx. will exchange Shafer. will also obtain dopplers of LEs Currently lying in bed, in NAD, awake, alert, appears comfortable [facility] caregiver sometimes present at bedside per report. No signs of pain, shortness of breath or seizure activity - however pt did not take her meds today per RN No other new symptoms Discussed with handbag finisher of Systems Review of Systems: Unobtainable due to mental health condition Physical Exam Physical Exam: General- WD/WN F , nonverbal, not in distress, breathing with no effort or accessory muscle use Eyes- anicteric Neck- no JVD Lungs- clear breath sounds anteriorly, no crackles or wheezes Heart- normal rate, regular rhythm; no murmurs Abdomen- normal bowel sounds, nondistended, soft, no tenderness appreciated Extremities- no pretibial edema, moves extremities Neuro- awake, alert , moves extremities Skin- warm & dry Results & Data Results & Data Vital Signs (Past 12 Hours) Vital Signs Temp Pulse Resp BP Pulse Ox O2 Del Method O2 Flow Rate 05/12/25 16:15 37.8 C H 79 16 112/68 92 Room Air 05/12/25 10:00 38.0 C H 05/12/25 09:00 Room Air 05/12/25 08:08 39.3 C H 93 H 16 134/59 L 91 Nasal Cannula 3 Laboratory Results 05/12/25 Range/Units 06:27 WBC 20.26 H (4.8-10.8) K/ul RBC 3.49 L (4.20-5.40) M/uL Hgb 8.6 L (12.0-16.0) g/dl Hct 26.6 L (37.0-47.0) % MCV 76.2 L (80.0-100.0) fL MCH 24.6 L (25.0-34.0) pg MCHC 32.3 (32.0-36.0) g/dL RDW Std Deviation 49.0 H (36.4-46.3) fL RDW Coeff of Nic 17.5 H (11.5-14.5) % Plt Count 341 (130-400) K/uL MPV 11.2 (9.4-12.4) fL Sodium 134 L (136-145) mmol/L Potassium 3.9 (3.5-5.1) mmol/L Chloride 100 (98-107) mmol/L Carbon Dioxide 26 (21-32) mmol/L Anion Gap 8 (3-11) BUN 15 (6-23) mg/dl Creatinine 0.86 (0.6-1.2) mg/dl Est Cr Clr Drug Dosing 54.1 ml/min eGFR 77.77 BUN/Creatinine Ratio 17.4 (10-20) Glucose 122 H (70-99(Fasting)) mg/dl Calcium 8.5 L (8.6-10.3) mg/dl Phosphorus 2.8 (2.5-4.9) mg/dl Magnesium 1.6 L (1.7-2.4) mg/dl Medications Administered Current Inpatient Medications Acetaminophen (Acetaminophen 500 Mg Tab) 1,000 mg PO Q4H PRN PRN Reason: elevated temp/headache/mild pain Stop: 06/04/25 16:42 Last Admin: 05/12/25 16:23 Dose: 1,000 mg Bisacodyl (Bisacodyl 5 Mg Tabec) 10 mg PO Q3D PRN PRN Reason: Constipation Stop: 06/04/25 16:42 Chlorhexidine Gluconate (Chlorhexidine Gluconate 0.12% 480 Ml) 15 ml MT TID [facility] Stop: 06/04/25 17:14 Last Admin: 05/12/25 14:57 Dose: 15 ml Clobazam (Clobazam 5 Mg Tab) 5 mg PO HS [facility] Stop: 06/04/25 20:59 Last Admin: 05/11/25 20:31 Dose: 5 mg Deutetrabenazine (Austedo [Patient Own Med]) 1 each PO DAILY [facility] Stop: 06/04/25 08:59 Last Admin: 05/12/25 10:48 Dose: Not Given Famotidine (Famotidine 20 Mg Tab) 20 mg PO DAILY [facility] Stop: 06/04/25 08:59 Last Admin: 05/12/25 10:48 Dose: Not Given Sodium Chloride (Nss) 1,000 mls @ 125 mls/hr IV .Q8H ONE Stop: 05/13/25 00:53 Cefepime HCl (Maxipime 2000mg) 2,000 mg in 20 mls @ 5 mls/min IV Q12H [facility]; Protocol Stop: 05/14/25 16:59 Vancomycin HCl (Vancomycin Hcl / Nss) 1,000 mg in 270 mls @ 200 mls/hr IV Q12H [facility]; Protocol Stop: 05/14/25 16:59 Lactobacillus Acidophilus (Advanced Probiotic 625 Mg Capsule) 1,250 mg PO DAILY [facility] Stop: 06/11/25 16:59 Lamotrigine (Lamotrigine 25 Mg Tab) 50 mg PO [facility]; Protocol Stop: 06/04/25 20:59 Last Admin: 05/12/25 10:49 Dose: Not Given Lamotrigine (Lamotrigine 100 Mg Tab) 200 mg PO [facility]; Protocol Stop: 06/04/25 20:59 Last Admin: 05/12/25 10:49 Dose: Not Given Levetiracetam (Levetiracetam 500 Mg Tab) 1,500 mg PO BID [facility] Stop: 06/04/25 20:59 Last Admin: 05/12/25 10:49 Dose: Not Given Levetiracetam (Levetiracetam 500 Mg/5 Ml Vial) 1,500 mg IV Q12H [facility] Stop: 06/11/25 16:59 Metoprolol Succinate (Metoprolol Succ 25mg Ext Rel Tab) 25 mg PO QAM [facility] Stop: 06/04/25 08:59 Last Admin: 05/12/25 10:49 Dose: Not Given Miscellaneous Information (Vancomycin Consult Active) 1 each N/A UD PRN PRN Reason: Consult Stop: 06/11/25 16:56 Nystatin (Nystatin Powder 15gm Btl) 1 appln EXT Q8 PRN PRN Reason: Affected Skin Folds Stop: 06/04/25 01:07 Ondansetron HCl (Ondansetron Inj 2 Mg/Ml 2 Ml Vial) 4 mg IV Q6H PRN PRN Reason: Nausea Stop: 06/04/25 16:42 Last Admin: 04/25/25 11:25 Dose: 4 mg Perphenazine (Perphenazine 2 Mg Tab) 1 mg PO QAM [facility] Stop: 06/04/25 08:59 Last Admin: 05/12/25 10:49 Dose: Not Given Perphenazine (Perphenazine 2 Mg Tab) 3 mg PO HS [facility] Stop: 06/04/25 20:59 Last Admin: 05/10/25 19:59 Dose: 3 mg Polyethylene Glycol (Polyethylene (Miralax) 17 Gm Pack) 17 gm PO QAM [facility] Stop: 06/04/25 08:59 Last Admin: 05/12/25 09:46 Dose: Not Given Polyethylene Glycol (Polyethylene (Miralax) 17 Gm Pack) 17 gm PO DAILY PRN PRN Reason: Constipation Stop: 06/04/25 16:42 Potassium Chloride (Potassium Chloride 10 Meq Tabcr) 20 meq PO DAILY [facility] Stop: 06/04/25 08:59 Last Admin: 05/12/25 10:49 Dose: Not Given Quetiapine Fumarate (Quetiapine Fumarate 25 Mg Tablet) 50 mg PO QAM [facility] Stop: 06/04/25 08:59 Last Admin: 05/12/25 10:49 Dose: Not Given Quetiapine Fumarate (Quetiapine Fumarate 200 Mg Tab) 200 mg PO HS [facility] Stop: 06/04/25 20:59 Last Admin: 05/11/25 20:31 Dose: 200 mg Sertraline HCl (Sertraline Hcl 100 Mg Tablet) 100 mg PO QAM [facility] Stop: 06/04/25 08:59 Last Admin: 05/12/25 10:49 Dose: Not Given
[2025-05-12] MEDS: SODIUM CHLORIDE 0.9% 1,000 ML IV ONE (17:50)
[2025-05-12] MEDS: ADVANCED PROBIOTIC 625 MG CAPSULE PO SCH (18:00)
[2025-05-12] MEDS: CEFEPIME 2000MG 2,000 MG/20 ML SYR IV SCH (18:01)
[2025-05-12] MEDS: VANCOMYCIN HCL 1,250 MG in SODIUM CHLORIDE 0.9% 250 ML IV STA (18:02)
--- NOTE | 2025-05-12 18:11 | XRay Report ---
Clinical History: Fever Technique: A frontal view of the chest was obtained Comparison is made to the prior examination dated 04/05/2025 Findings: There are no definite pulmonary infiltrates. The heart is mildly enlarged. No pleural effusion or pneumothorax is seen. No fracture is noted. No foreign body is seen Impression: Unchanged mild cardiomegaly Electronically signed by Landon Cason 05-12-2025 6:11 PM
[2025-05-12 21:33] LABS: Appearance Urine Cloudy (Clear); Bacteria Urine Automated None Seen (None Seen); Epithelial Cell Urine Auto 0-2 /hpf (0-2); Glucose Urine UA Negative (Negative); WBC Urine Automated >50 /hpf (0-5)
[2025-05-12 21:35] LABS: RBC Urine Automated 0-2 /hpf (0-2)
--- NOTE | 2025-05-12 22:48 | XRay Report ---
Exam(s): XR KUB EXAM: XR Abdomen, 2 Views CLINICAL HISTORY: Reason for exam: n/v, hx of sbo. TECHNIQUE: 2 frontal views of the abdomen and pelvis. The films are not marked as to whether one is upright. COMPARISON: April 12, 2025 IMPRESSION: The bowel gas pattern is unremarkable. There is no abnormal mass-effect. There is scoliosis. Mild deformity and advanced degenerative arthropathy is noted of the right hip joint. Electronically signed by: Fernandez Tompkins MD 05/12/25 22:47 PM
--- NOTE | 2025-05-12 23:03 | Ultrasound Report ---
Exam(s): US VENOUS BILATERAL LOWER EXTREMITIES EXAM: US Duplex Bilateral Lower Extremities Veins CLINICAL HISTORY: Reason for exam: r/o dvt. TECHNIQUE: Real-time duplex ultrasound scan of the bilateral lower extremity veins integrating B-mode two-dimensional vascular structure, Doppler spectral analysis, color flow Doppler imaging and compression. COMPARISON: No relevant prior studies available. FINDINGS: Right deep veins: Unremarkable. No DVT in the right common femoral, femoral, proximal deep femoral or popliteal veins. The veins demonstrate normal color flow, are normally compressible, with normal phasic flow and/or augmentation response. Right superficial veins: Unremarkable. No thrombus in the visualized right great saphenous vein. Left deep veins: Unremarkable. No DVT in the left common femoral, femoral, proximal deep femoral or popliteal veins. The veins demonstrate normal color flow, are normally compressible, with normal phasic flow and/or augmentation response. Left superficial veins: Unremarkable. No thrombus in the visualized left great saphenous vein. Soft tissues: No acute findings. No popliteal cyst. IMPRESSION: No evidence of DVT in the lower extremities. Electronically signed by: Fernandez Tompkins MD 05/12/25 23:02 PM
[2025-05-13] MEDS: VANCOMYCIN 750 MG in SODIUM CHLORIDE 0.9% 250 ML IV SCH (05:52)
[2025-05-13] MEDS: ACETAMINOPHEN 1,000 MG/100 ML VIAL IV STA (06:11)
[2025-05-13 07:23] LABS: Hematocrit (blood only) 22.4 % (37.0-47.0); Hemoglobin 7.3 g/dl (12.0-16.0); Mean Corpuscular Hemoglobin 24.6 pg (25.0-34.0); Mean Corpuscular Volume 75.4 fL (80.0-100.0); Platelet Count 243 K/uL (130-400); RDW Standard Deviation 48.4 fL (36.4-46.3); Red Blood Count 2.97 M/uL (4.20-5.40); White Blood Count 15.34 K/ul (4.8-10.8)
[2025-05-13 07:37] LABS: Anion Gap 5.0 (3-11); Blood Urea Nitrogen 18.0 mg/dl (6-23); Calcium 7.7 mg/dl (8.6-10.3); Carbon Dioxide 23.0 mmol/L (21-32); Chloride 105.0 mmol/L (98-107); Creatinine Clr Calc Pharmacy 56.1 ml/min; Glucose 117.0 mg/dl (70-99(Fasting)); Magnesium 1.4 mg/dl (1.7-2.4); Potassium 3.3 mmol/L (3.5-5.1); Sodium 133.0 mmol/L (136-145)
--- NOTE | 2025-05-13 07:46 | Hospitalist Progress Note ---
Date of Service May 13, 2025 Assessment & Plan (1) Complicated UTI (urinary tract infection): (2) Nephrolithiasis: (3) Breakthrough seizure: (4) Epilepsy: (5) Ureteral stent present: (6) OCD (obsessive compulsive disorder): (7) Nonverbal: (8) Bladder incontinence: (9) Intellectual disability: (10) Repeated falls: (11) Liver lesion, right lobe: (12) Chronic disease anemia: Plan Per previous provider w/ addendum: (1) Nephrolithiasis: (2) Ureteral stent present: (3) Nonverbal: (4) Complicated UTI (urinary tract infection): (5) Severe intellectual disability: (6) Fatty (change of) liver, not elsewhere classified: (7) Tremor, unspecified: Plan 59 yo female with pmhx of severe intellectual disability c/b epilepsy, nonverbal status, fecal/urinary incontinence, s/p recent urethral stent placement, fatty liver disease, GERD, OCD, IAN, who presents for a fall from [facility]. #Fall #Epilepsy #Breakthrough seizures -unclear cause of fall from bed, likely mechanical in nature vs UTI -had breakthrough seizures on 04/11, code purple called, discussed with neurology Plan: -gentle hydration -recs followed per neurology -neurology consult, appreciate recs for consideration of seizure and p olypharmacy -decreased dose of perphenazine #Severe Bacteriuria #Ureteral Stent -UA appears to be significantly infected in setting of chronic colonization -s/p stent removal and placement this admission Plan: -urology consulted, 04/21: Status post removal of right ureteral stent -follow up outpatient -ID consulted -given fluconazole, was treated w/ ceftriaxone #Abnormal CT Finding There is a new heterogeneous area of hypodensity in the periphery of the right lobe of the liver measuring 2.4 x 1.7 x 2.2 cm. -Further work up, management, and ff up as outpatient #Lateral T Wave Inversions -new from 2017 -echo with need for follow up outpatient #Severe Intellectual Disability #OCD #IAN -continue home meds austedo xr, perphenazine (decreased dose-3 mg at bedtime, 1 mg in the morning), seroquel, zoloft -continue miralax, bisacodyl suppository prn for constipation, -mouth care ordered -continue keppra and lamictal 05/11 Discussed w/ RN today. Pt took her meds, no acute events. Pt awake, appears comfortable/ at baseline. 05/12 Pt spiked fever, CBC obtained and WBC elevated. Pt nonverbal at baseline. Has Shafer placed and had urological procedures during this admission. Will exchange shafer, UA, CXR, blood cultures. will start empiric abx. Will obtain dopplers of LEs. will start IVF and also switch keppra to IV as pt did not take her po meds today. Cont. to closely monitor C. diff colitis - started PO vanco Ct abd/pelvis (05/12) 1. Findings compatible with an acute nonspecific diffuse proctocolitis, likely infectious or inflammatory. 2. Unremarkable CTA component of the study. 3. Decreased size of the left renal subcapsular hematoma. 4. Nonobstructing bilateral nephrolithiasis without hydronephrosis. 5. Cholelithiasis. 6. No bowel obstruction or pneumoperitoneum. WBC down, pt still febrile cont. to closely monitor, po vanco started, IVF LE dopplers negative - will likely also obtain CT PE as pt has been lying in bed for prolonged time, no dvt ppx , had hx of renal hematoma Admission and Anticipated Discharge Date Admission Date: April 05, 2025 Subjective Pt seen in follow up Pt had urologic procedures during this hospital stay Recently she has been doing well, however yesterday pt febrile. blood work obtained and WBC elevated. C.diff colitis - started on po vanco Currently lying in bed, in NAD, awake, alert, appears fairly comfortable. Pt is nonverbal at baseline. [facility] caregiver sometimes present at bedside per report. No signs of pain, shortness of breath or seizure activity No other new symptoms Discussed with RN multiple times today Review of Systems Review of Systems: All systems reviewed & are unremarkable except as noted in Subjective Physical Exam Physical Exam: General- WD/WN F , nonverbal, not in distress, breathing with no effort or accessory muscle use Eyes- anicteric Neck- no JVD Lungs- clear breath sounds anteriorly, no crackles or wheezes Heart- normal rate, regular rhythm; no murmurs Abdomen- normal bowel sounds, nondistended, soft, no tenderness appreciated Extremities- no pretibial edema, moves extremities Neuro- awake, alert , moves extremities Skin- warm & dry Results & Data Results & Data Vital Signs (Past 12 Hours) Vital Signs Temp Pulse Resp BP Pulse Ox O2 Del Method 05/13/25 06:32 37.9 C H 05/13/25 06:01 39.1 C H 05/12/25 23:40 37.6 C H 78 16 100/55 L 96 Room Air Laboratory Results 05/13/25 05/12/25 Range/Units 06:55 Unknown WBC 15.34 H (4.8-10.8) K/ul RBC 2.97 L (4.20-5.40) M/uL Hgb 7.3 L (12.0-16.0) g/dl Hct 22.4 L (37.0-47.0) % MCV 75.4 L (80.0-100.0) fL MCH 24.6 L (25.0-34.0) pg MCHC 32.6 (32.0-36.0) g/dL RDW Std Deviation 48.4 H (36.4-46.3) fL RDW Coeff of Nic 17.4 H (11.5-14.5) % Plt Count 243 (130-400) K/uL MPV 10.9 (9.4-12.4) fL Sodium 133 L (136-145) mmol/L Potassium 3.3 L (3.5-5.1) mmol/L Chloride 105 (98-107) mmol/L Carbon Dioxide 23 (21-32) mmol/L Anion Gap 5 (3-11) BUN 18 (6-23) mg/dl Creatinine 0.83 (0.6-1.2) mg/dl Est Cr Clr Drug Dosing 56.1 ml/min eGFR 81.16 BUN/Creatinine Ratio 21.7 H (10-20) Glucose 117 H (70-99(Fasting)) mg/dl Calcium 7.7 L (8.6-10.3) mg/dl Phosphorus 2.1 L (2.5-4.9) mg/dl Magnesium 1.4 L (1.7-2.4) mg/dl Urine Color Yellow Urine Appearance Cloudy A (Clear) Urine pH 5.5 (4.5-7.5) Ur Specific [place] 1.014 (1.000-1.030) Urine Protein Trace H (Negative) Urine Glucose (UA) Negative (Negative) Urine Ketones Negative (Negative) Urine Blood Trace H (Negative) Urine Nitrite Negative (Negative) Urine Bilirubin Negative (Negative) Urine Urobilinogen Negative (Negative) Ur Leukocyte Esterase 3+ H (Negative) Urine WBC (Auto) >50 H (0-5) /hpf Urine RBC (Auto) 0-2 (0-2) /hpf U Hyaline Cast (Auto) 3-5 H (0-2) /lpf U Epithel Cells (Auto) 0-2 (0-2) /hpf Urine Bacteria (Auto) None Seen (None Seen) Urine Yeast Present A (None Prsent) Urine Comment Medications Administered Current Inpatient Medications Acetaminophen (Acetaminophen 500 Mg Tab) 1,000 mg PO Q4H PRN PRN Reason: elevated temp/headache/mild pain Stop: 06/04/25 16:42 Last Admin: 05/12/25 20:28 Dose: 1,000 mg Bisacodyl (Bisacodyl 5 Mg Tabec) 10 mg PO Q3D PRN PRN Reason: Constipation Stop: 06/04/25 16:42 Chlorhexidine Gluconate (Chlorhexidine Gluconate 0.12% 480 Ml) 15 ml MT TID SWAPNA Stop: 06/04/25 17:14 Last Admin: 05/13/25 15:56 Dose: 15 ml Clobazam (Clobazam 5 Mg Tab) 5 mg PO HS SWAPNA Stop: 06/04/25 20:59 Last Admin: 05/12/25 20:27 Dose: 5 mg Deutetrabenazine (Austedo [Patient Own Med]) 1 each PO DAILY SWAP[facility] Stop: 06/04/25 08:59 Last Admin: 05/13/25 08:51 Dose: 1 each Enoxaparin Sodium (Enoxaparin Inj 40 Mg/0.4 Ml Syr) 40 mg SQ QAM [facility] Stop: 06/12/25 12:29 Last Admin: 05/13/25 13:30 Dose: 40 mg Famotidine (Famotidine 20 Mg Tab) 20 mg PO DAILY SWAP[facility] Stop: 06/04/25 08:59 Last Admin: 05/13/25 08:50 Dose: 20 mg Acetaminophen (Ofirmev) 1,000 mg in 100 mls @ 400 mls/hr IV Q8H PRN PRN Reason: Fever Stop: 05/16/25 15:41 Last Infusion: 05/13/25 16:29 Dose: Infused Magnesium Sulfate/Dextrose (Magnesium Sulfate / D5w) 1 gm in 100 mls @ 50 mls/hr IV ONE ONE Stop: 05/13/25 18:11 Last Admin: 05/13/25 16:32 Dose: 50 mls/hr Lactobacillus Acidophilus (Advanced Probiotic 625 Mg Capsule) 1,250 mg PO DAILY [facility] Stop: 06/11/25 16:59 Last Admin: 05/13/25 08:48 Dose: 1,250 mg Lamotrigine (Lamotrigine 25 Mg Tab) 50 mg PO AMHS [facility]; Protocol Stop: 06/04/25 20:59 Last Admin: 05/13/25 08:52 Dose: 50 mg Lamotrigine (Lamotrigine 100 Mg Tab) 200 mg PO AMHS [facility]; Protocol Stop: 06/04/25 20:59 Last Admin: 05/13/25 08:52 Dose: 200 mg Levetiracetam (Levetiracetam 500 Mg Tab) 1,500 mg PO BID [facility] Stop: 06/04/25 20:59 Last Admin: 05/12/25 10:49 Dose: Not Given Levetiracetam (Levetiracetam 500 Mg/5 Ml Vial) 1,500 mg IV Q12H [facility] Stop: 06/11/25 16:59 Last Admin: 05/13/25 16:33 Dose: 1,500 mg Metoprolol Succinate (Metoprolol Succ 25mg Ext Rel Tab) 25 mg PO QAM [facility] Stop: 06/04/25 08:59 Last Admin: 05/13/25 08:49 Dose: 25 mg Nystatin (Nystatin Powder 15gm Btl) 1 appln EXT Q8 PRN PRN Reason: Affected Skin Folds Stop: 06/04/25 01:07 Ondansetron HCl (Ondansetron Inj 2 Mg/Ml 2 Ml Vial) 4 mg IV Q6H PRN PRN Reason: Nausea Stop: 06/04/25 16:42 Last Admin: 04/25/25 11:25 Dose: 4 mg Perphenazine (Perphenazine 2 Mg Tab) 1 mg PO QAM [facility] Stop: 06/04/25 08:59 Last Admin: 05/13/25 08:48 Dose: 1 mg Perphenazine (Perphenazine 2 Mg Tab) 3 mg PO HS [facility] Stop: 06/04/25 20:59 Last Admin: 05/12/25 20:28 Dose: 3 mg Polyethylene Glycol (Polyethylene (Miralax) 17 Gm Pack) 17 gm PO QAM [facility] Stop: 06/04/25 08:59 Last Admin: 05/13/25 08:47 Dose: 17 gm Polyethylene Glycol (Polyethylene (Miralax) 17 Gm Pack) 17 gm PO DAILY PRN PRN Reason: Constipation Stop: 06/04/25 16:42 Potassium Chloride (Potassium Chloride 10 Meq Tabcr) 20 meq PO DAILY [facility] Stop: 06/04/25 08:59 Last Admin: 05/13/25 08:48 Dose: 20 meq Quetiapine Fumarate (Quetiapine Fumarate 25 Mg Tablet) 50 mg PO QAM [facility] Stop: 06/04/25 08:59 Last Admin: 05/13/25 08:49 Dose: 50 mg Quetiapine Fumarate (Quetiapine Fumarate 200 Mg Tab) 200 mg PO HS SWAP[facility] Stop: 06/04/25 20:59 Last Admin: 05/12/25 20:28 Dose: 200 mg Sertraline HCl (Sertraline Hcl 100 Mg Tablet) 100 mg PO QAM [facility] Stop: 06/04/25 08:59 Last Admin: 05/13/25 08:50 Dose: 100 mg Vancomycin HCl (Vancomycin Hcl 125 Mg Cap) 125 mg PO Q6 [facility] Stop: 05/23/25 13:04 Last Admin: 05/13/25 16:29 Dose: 125 mg
[2025-05-13] MEDS: SODIUM CHLORIDE 0.9% 500 ML IV ONE (08:46)
[2025-05-13] MEDS: POTASSIUM CHLORIDE / WTR 10 MEQ/100 ML PLCT IV SCH (08:47)
[2025-05-13] MEDS: OPTIRAY 320 125ml IV ONE (10:49)
--- NOTE | 2025-05-13 11:58 | CT Scan Report ---
CT angio abdomen pelvis w con CLINICAL HISTORY: 59 years-old Female with fever, hx of kidney stones, r/o abscess acute generaliz ed abdominal pain COMPARISON STUDY: CT abdomen and pelvis 04/18/2025, 02/21/2025 TECHNIQUE: Following the IV administratio n of 112 cc of Optiray, CT angiogram of the abdomen and pelvis was performed from the lung bases the proximal femora. Images are reviewed in the axial, sagittal, and coronal planes. 3-D MIPS images are created and assessed. All measurements were obtained according to NASCET criteria. IV contrast was ad ministered without complication. A dose lowering technique was utilized adhering to the principles o f ALARA. CT DOSE: 1091.91 mGy.cm FINDINGS: CTA: Mild cardiomegaly with dense mitral annular calcifications. Normal caliber descending thoracic a paige. Mild/moderate atherosclerosis. No abdominal aortic aneurysm or dissection. There is patency of the celiac trunk vessels, superior and inferior mesenteric artery. Renal arteries are also patent. No high-grade stenosis, arterial occlusion or active extravasation. Iliac and imaged femoral arteries a re patent. CT ABDOMEN/PELVIS: Trace right pleural effusion. Lung bases are clear. Studies mildly degraded by res piratory motion. Unremarkable spleen, pancreas and adrenal glands. Distended gallbladder with choleli thiasis is similar to prior. No CT evidence of acute cholecystitis. No biliary ductal dilation. Liver is within normal limits. 8 mm hypodense focus of the left hepatic lobe on image [address] Hepatic steatosis. Unchanged 2 cm focus of increased attenuation within the right hepatic lobe on image 65. Nonobstructing calculi of the kidneys measure up to approximately 4 to 5 mm. No ureteral calculi or h ydronephrosis. There is decreased size of the subcapsular hematoma involving the left kidney, now beba suring 6 mm transversely, previously 1.3 cm. Mild left-sided perinephric stranding. The compressed bl adder with Alcantara catheter in place. Mild distal esophageal wall thickening with small hiatal hernia. There is diffuse wall thickening with mucosal hyperemia throughout the colon and rectum with moderate adjacent inflammatory stranding. No CT evidence of acute appendicitis. No small bowel obstruction. N o acute fracture identified. Severe osteoporosis of the right hip. Lumbar levoscoliosis. IMPRESSION: 1. Findings compatible with an acute nonspecific diffuse proctocolitis, likely infectious or inflamma tory. 2. Unremarkable CTA component of the study. 3. Decreased size of the left renal subcapsular hematoma. 4. Nonobstructing bilateral nephrolithiasis without hydronephrosis. 5. Cholelithiasis. 6. No bowel obstruction or pneumoperitoneum. ACT 112: Negative or not required by law. The above report was generated using voice recognition software. It may contain grammatical, syntax o r spelling errors. Electronically signed by: Vince Cervantes M.D. 05/13/2025 11:56 AM
[2025-05-13] MEDS ORDERED: POTASSIUM PHOS 3 MMOL/1 ML INFUSION IV STA (12:02)
[2025-05-13 12:19] LABS: Cdiff Toxin B Gene (2yr or >) Positive Cdiff Gene (Neg)
[2025-05-13] MEDS: POTASSIUM PHOSPHATE 9 MMOL in SODIUM CHLORIDE 0.9% 250 ML IV ONE (12:40)
[2025-05-13 13:01] LABS: Cdiff Toxin A+B Positive Cdiff Toxin (Negative)
[2025-05-13] MEDS: ENOXAPARIN INJ 40 MG/0.4 ML SYR SQ SCH (13:30)
[2025-05-13] MEDS: ACETAMINOPHEN 1,000 MG/100 ML VIAL IV PRN (15:55)
[2025-05-13] MEDS: POTASSIUM CHLORIDE CRTAB 20 MEQ TABCR PO STA (16:29)
[2025-05-13] MEDS: VANCOMYCIN HCL 125 MG CAP PO SCH (16:29)
[2025-05-13] MEDS: MAGNESIUM SULFATE / D5W 1 GM/100 ML BAG IV ONE (16:32)
[2025-05-13] MEDS: VANCOMYCIN LEVEL SCH (22:26)
[2025-05-14 07:34] LABS: Hematocrit (blood only) 23.7 % (37.0-47.0); Hemoglobin 7.7 g/dl (12.0-16.0); Mean Corpuscular Hemoglobin 24.7 pg (25.0-34.0); Mean Corpuscular Volume 76.0 fL (80.0-100.0); Platelet Count 269 K/uL (130-400); RDW Standard Deviation 49.1 fL (36.4-46.3); Red Blood Count 3.12 M/uL (4.20-5.40); White Blood Count 10.85 K/ul (4.8-10.8)
[2025-05-14 07:53] LABS: Anion Gap 6.0 (3-11); Blood Urea Nitrogen 11.0 mg/dl (6-23); Calcium 8.1 mg/dl (8.6-10.3); Carbon Dioxide 21.0 mmol/L (21-32); Chloride 110.0 mmol/L (98-107); Creatinine Clr Calc Pharmacy 68.4 ml/min; Glucose 75.0 mg/dl (70-99(Fasting)); Magnesium 1.9 mg/dl (1.7-2.4); Potassium 3.5 mmol/L (3.5-5.1); Sodium 137.0 mmol/L (136-145)
--- NOTE | 2025-05-14 08:05 | Hospitalist Progress Note ---
Date of Service May 14, 2025 Assessment & Plan (1) Complicated UTI (urinary tract infection): (2) Nephrolithiasis: (3) Breakthrough seizure: (4) Epilepsy: (5) Ureteral stent present: (6) OCD (obsessive compulsive disorder): (7) Nonverbal: (8) Bladder incontinence: (9) Intellectual disability: (10) Repeated falls: (11) Liver lesion, right lobe: (12) Chronic disease anemia: Plan Per previous provider w/ addendum: (1) Nephrolithiasis: (2) Ureteral stent present: (3) Nonverbal: (4) Complicated UTI (urinary tract infection): (5) Severe intellectual disability: (6) Fatty (change of) liver, not elsewhere classified: (7) Tremor, unspecified: Plan 59 yo female with pmhx of severe intellectual disability c/b epilepsy, nonverbal status, fecal/urinary incontinence, s/p recent urethral stent placement, fatty liver disease, GERD, OCD, IAN, who presents for a fall from the [facility]. #Fall #Epilepsy #Breakthrough seizures -unclear cause of fall from bed, likely mechanical in nature vs UTI -had breakthrough seizures on 04/11, code purple called, discussed with neurology Plan: -gentle hydration -recs followed per neurology -neurology consult, appreciate recs for consideration of seizure and polypharmacy -decreased dose of perphenazine #Severe Bacteriuria #Ureteral Stent -UA appears to be significantly infected in setting of chronic colonization -s/p stent removal and placement this admission Plan: -urology consulted, 04/21: Status post removal of right ureteral stent -follow up outpatient -ID consulted -given fluconazole, was treated w/ ceftriaxone #Abnormal CT Finding There is a new heterogeneous area of hypodensity in the periphery of the right lobe of the liver measuring 2.4 x 1.7 x 2.2 cm. -Further work up, management, and ff up as outpatient #Lateral T Wave Inversions -new from 2016 -echo with need for follow up outpatient #Severe Intellectual Disability #OCD #IAN -continue home meds austedo xr, perphenazine (decreased dose-3 mg at bedtime, 1 mg in the morning), seroquel, zoloft -continue miralax, bisacodyl suppository prn for constipation, -mouth care ordered -continue keppra and lamictal 05/11 Discussed w/ RN today. Pt took her meds, no acute events. Pt awake, appears comfortable/ at baseline. 05/12 Pt spiked fever, CBC obtained and WBC elevated. Pt nonverbal at baseline. Has Shafer placed and had urological procedures during this admission. Will exchange shafer, UA, CXR, blood cultures. will start empiric abx. Will obtain dopplers of LEs. will start IVF and also switch keppra to IV as pt did not take her po meds today. Cont. to closely monitor C. diff colitis - started PO vanco Ct abd/pelvis (05/12) 1. Findings compatible with an acute nonspecific diffuse proctocolitis, likely infectious or inflammatory. 2. Unremarkable CTA component of the study. 3. Decreased size of the left renal subcapsular hematoma. 4. Nonobstructing bilateral nephrolithiasis without hydronephrosis. 5. Cholelithiasis. 6. No bowel obstruction or pneumoperitoneum. WBC down, pt still febrile. cont. to closely monitor, po vanco started, IVF LE dopplers negative - will likely also obtain CT PE as pt has been lying in bed for prolonged time, no dvt ppx , had hx of renal hematoma 05/14 WBC 10.[address] now[address]lenol[address] PE pending. Stools not as frequent per RN. Pt found soiled on physical exam though. Admission and Anticipated Discharge Date Admission Date: April 05, 2025 Subjective Pt seen in follow up Pt had urologic procedures during this hospital stay Recently she has been doing well, however 05/12 pt febrile. blood work obtained and WBC elevated. C.diff colitis - started on po vanco Currently lying in bed, in NAD, awake, alert, appears fairly comfortable. Pt is nonverbal at baseline. [facility] caregiver sometimes present at bedside per report. No signs of pain, shortness of breath or seizure activity No other new symptoms Discussed with RN - pt found soiled on my phys. exam, per nursing staff pt is having less stools CT PE pending Ucultx pending WBC decreased now Review of Systems Review of Systems: All systems reviewed & are unremarkable except as noted in Subjective Physical Exam Physical Exam: General- WD/WN F , nonverbal, not in distress, breathing with no effort or accessory muscle use Eyes- anicteric Neck- no JVD Lungs- clear breath sounds anteriorly, no crackles or wheezes Heart- normal rate, regular rhythm; no murmurs Abdomen- normal bowel sounds, nondistended, soft, no tenderness appreciated Extremities- no pretibial edema, moves extremities Neuro- awake, alert , moves extremities Skin- warm & dry Results & Data Results & Data Vital Signs (Past 12 Hours) Vital Signs Temp Pulse Pulse Resp BP Pulse Ox O2 Del Method 05/14/25 07:42 75 05/13/25 23:02 37.6 C H 84 16 114/55 L 95 Room Air 05/13/25 21:58 75 Laboratory Results 05/14/25 05/13/25 05/13/25 Range/Units 07:09 12:26 10:22 WBC 10.85 H (4.8-10.8) K/ul RBC 3.12 L (4.20-5.40) M/uL Hgb 7.7 L (12.0-16.0) g/dl Hct 23.7 L (37.0-47.0) % MCV 76.0 L (80.0-100.0) fL MCH 24.7 L (25.0-34.0) pg MCHC 32.5 (32.0-36.0) g/dL RDW Std Deviation 49.1 H (36.4-46.3) fL RDW Coeff of Nic 17.7 H (11.5-14.5) % Plt Count 269 (130-400) K/uL MPV 10.9 (9.4-12.4) fL Sodium 137 (136-145) mmol/L Potassium 3.5 (3.5-5.1) mmol/L Chloride 110 H (98-107) mmol/L Carbon Dioxide 21 (21-32) mmol/L Anion Gap 6 (3-11) BUN 11 (6-23) mg/dl Creatinine 0.68 (0.6-1.2) mg/dl Est Cr Clr Drug Dosing 68.4 ml/min eGFR 100.26 BUN/Creatinine Ratio 16.2 (10-20) Glucose 75 (70-99(Fasting)) mg/dl Calcium 8.1 L (8.6-10.3) mg/dl Phosphorus 2.4 L (2.5-4.9) mg/dl Magnesium 1.9 (1.7-2.4) mg/dl Stl C. diff Tox B Gene Positive Cdiff Gene A (Neg) Stl C.difficile Tox A&B Positive Cdiff Toxin A* (Negative) Stl C. diff [id number] NEGATIVE Random Vancomycin 14.9 (10-20) mcg/ml Medications Administered Current Inpatient Medications Acetaminophen (Acetaminophen 500 Mg Tab) 1,000 mg PO Q4H PRN PRN Reason: elevated temp/headache/mild pain Stop: 06/04/25 16:42 Last Admin: 05/13/25 21:53 Dose: 1,000 mg Bisacodyl (Bisacodyl 5 Mg Tabec) 10 mg PO Q3D PRN PRN Reason: Constipation Stop: 06/04/25 16:42 Chlorhexidine Gluconate (Chlorhexidine Gluconate 0.12% 480 Ml) 15 ml MT TID SWAPNA Stop: 06/04/25 17:14 Last Admin: 05/13/25 21:53 Dose: 15 ml Clobazam (Clobazam 5 Mg Tab) 5 mg PO HS [facility]AP[facility] Stop: 06/04/25 20:59 Last Admin: 05/13/25 21:52 Dose: 5 mg Deutetrabenazine (Austedo [Patient Own Med]) 1 each PO DAILY [facility] Stop: 06/04/25 08:59 Last Admin: 05/13/25 08:51 Dose: 1 each Enoxaparin Sodium (Enoxaparin Inj 40 Mg/0.4 Ml Syr) 40 mg SQ QAM SWAP[facility] Stop: 06/12/25 12:29 Last Admin: 05/13/25 13:30 Dose: 40 mg Famotidine (Famotidine 20 Mg Tab) 20 mg PO DAILY [facility] Stop: 06/04/25 08:59 Last Admin: 05/13/25 08:50 Dose: 20 mg Acetaminophen (Ofirmev) 1,000 mg in 100 mls @ 400 mls/hr IV Q8H PRN PRN Reason: Fever Stop: 05/16/25 15:41 Last Infusion: 05/13/25 16:29 Dose: Infused Lactobacillus Acidophilus (Advanced Probiotic 625 Mg Capsule) 1,250 mg PO DAILY [facility] Stop: 06/11/25 16:59 Last Admin: 05/13/25 08:48 Dose: 1,250 mg Lamotrigine (Lamotrigine 25 Mg Tab) 50 mg PO AMHS [facility]; Protocol Stop: 06/04/25 20:59 Last Admin: 05/13/25 21:52 Dose: 50 mg Lamotrigine (Lamotrigine 100 Mg Tab) 200 mg PO AMHS [facility]; Protocol Stop: 06/04/25 20:59 Last Admin: 05/13/25 21:52 Dose: 200 mg Levetiracetam (Levetiracetam 500 Mg Tab) 1,500 mg PO BID SWAP[facility] Stop: 06/04/25 20:59 Last Admin: 05/12/25 10:49 Dose: Not Given Levetiracetam (Levetiracetam 500 Mg/5 Ml Vial) 1,500 mg IV Q12H [facility]AP[facility] Stop: 06/11/25 16:59 Last Admin: 05/14/25 05:43 Dose: 1,500 mg Metoprolol Succinate (Metoprolol Succ 25mg Ext Rel Tab) 25 mg PO QAM [facility] Stop: 06/04/25 08:59 Last Admin: 05/13/25 08:49 Dose: 25 mg Nystatin (Nystatin Powder 15gm Btl) 1 appln EXT Q8 PRN PRN Reason: Affected Skin Folds Stop: 06/04/25 01:07 Ondansetron HCl (Ondansetron Inj 2 Mg/Ml 2 Ml Vial) 4 mg IV Q6H PRN PRN Reason: Nausea Stop: 06/04/25 16:42 Last Admin: 04/25/25 11:25 Dose: 4 mg Perphenazine (Perphenazine 2 Mg Tab) 1 mg PO QAM [facility] Stop: 06/04/25 08:59 Last Admin: 05/13/25 08:48 Dose: 1 mg Perphenazine (Perphenazine 2 Mg Tab) 3 mg PO HS [facility] Stop: 06/04/25 20:59 Last Admin: 05/13/25 21:52 Dose: 3 mg Polyethylene Glycol (Polyethylene (Miralax) 17 Gm Pack) 17 gm PO QAM [facility] Stop: 06/04/25 08:59 Last Admin: 05/13/25 08:47 Dose: 17 gm Polyethylene Glycol (Polyethylene (Miralax) 17 Gm Pack) 17 gm PO DAILY PRN PRN Reason: Constipation Stop: 06/04/25 16:42 Potassium Chloride (Potassium Chloride 10 Meq Tabcr) 20 meq PO DAILY [facility] Stop: 06/04/25 08:59 Last Admin: 05/13/25 08:48 Dose: 20 meq Quetiapine Fumarate (Quetiapine Fumarate 25 Mg Tablet) 50 mg PO QAM [facility] Stop: 06/04/25 08:59 Last Admin: 05/13/25 08:49 Dose: 50 mg Quetiapine Fumarate (Quetiapine Fumarate 200 Mg Tab) 200 mg PO HS [facility] Stop: 06/04/25 20:59 Last Admin: 05/13/25 22:08 Dose: 200 mg Sertraline HCl (Sertraline Hcl 100 Mg Tablet) 100 mg PO QAM [facility] Stop: 06/04/25 08:59 Last Admin: 05/13/25 08:50 Dose: 100 mg Vancomycin HCl (Vancomycin Hcl 125 Mg Cap) 125 mg PO Q6 [facility] Stop: 05/23/25 13:04 Last Admin: 05/14/25 00:52 Dose: 125 mg
[2025-05-14] MEDS: OPTIRAY 320 125ml IV ONE (11:19)
--- NOTE | 2025-05-14 12:03 | CT Scan Report ---
EXAM: CT Angiography Chest With Intravenous Contrast INDICATION: Shortness of breath TECHNIQUE: Axial computed tomographic angiography images of the chest with intravenous contrast. Sagittal and coronal reformatted images were created and reviewed. This CT exam was performed using one or more of the following dose reduction techniques: automated exposure control, adjustment of the mA and/or kV according to patient size, and/or use of iterative reconstruction technique. MIP reconstructed images were created and reviewed. CONTRAST: 112 ml of Optiray 320 was administered intravenously. COMPARISON: 12/21/2024 FINDINGS: Pulmonary arteries: No pulmonary embolus noted. There has been interval dilatation of the main pulmonary artery now measuring 3.3 cm (was 2.8. Aorta: Atherosclerotic calcification of the aorta and branches. No aneurysm. Lungs and pleural spaces: Evaluation lung parenchyma limited by motion. No infiltrate. No pleural effusion or pneumothorax. No mass. Heart: Large heart. No right heart strain. Dense mitral calcification. Trace pericardial effusion noted. Bones/joints: Degenerative changes noted throughout the spine. No acute osseous abnormality seen. Soft tissues: No abnormality noted. Lymph nodes: No abnormality noted. No enlarged lymph nodes. Gallbladder and bile ducts: Distended gallbladder with stones. IMPRESSION: 1. No pulmonary embolus. Dilatation of the main pulmonary trunk may reflect pulmonary arterial hypertension. 2. Distended gallbladder with stones. ACT 112: N/A Electronically signed by Suzette Wiggins 05-14-2025 12:02 PM
[2025-05-14] MEDS: POTASSIUM CHLORIDE CRTAB 20 MEQ TABCR PO STA (12:27)
[2025-05-15 06:48] LABS: Hematocrit (blood only) 23.9 % (37.0-47.0); Hemoglobin 7.6 g/dl (12.0-16.0); Mean Corpuscular Hemoglobin 24.1 pg (25.0-34.0); Mean Corpuscular Volume 75.6 fL (80.0-100.0); Platelet Count 281 K/uL (130-400); RDW Standard Deviation 48.5 fL (36.4-46.3); Red Blood Count 3.16 M/uL (4.20-5.40); White Blood Count 5.35 K/ul (4.8-10.8)
[2025-05-15 07:06] LABS: Anion Gap 5.0 (3-11); Blood Urea Nitrogen 7.0 mg/dl (6-23); Calcium 8.2 mg/dl (8.6-10.3); Carbon Dioxide 23.0 mmol/L (21-32); Chloride 110.0 mmol/L (98-107); Creatinine Clr Calc Pharmacy 83.1 ml/min; Glucose 93.0 mg/dl (70-99(Fasting)); Magnesium 1.8 mg/dl (1.7-2.4); Potassium 3.6 mmol/L (3.5-5.1); Sodium 138.0 mmol/L (136-145)
--- NOTE | 2025-05-15 07:34 | Hospitalist Progress Note ---
Date of Service May 15, 2025 Assessment & Plan (1) Complicated UTI (urinary tract infection): (2) Nephrolithiasis: (3) Breakthrough seizure: (4) Epilepsy: (5) Ureteral stent present: (6) OCD (obsessive compulsive disorder): (7) Nonverbal: (8) Bladder incontinence: (9) Intellectual disability: (10) Repeated falls: (11) Liver lesion, right lobe: (12) Chronic disease anemia: Plan Per previous provider w/ addendum: (1) Nephrolithiasis: (2) Ureteral stent present: (3) Nonverbal: (4) Complicated UTI (urinary tract infection): (5) Severe intellectual disability: (6) Fatty (change of) liver, not elsewhere classified: (7) Tremor, unspecified: Plan 59 yo female with pmhx of severe intellectual disability c/b epilepsy, nonverbal status, fecal/urinary incontinence, s/p recent urethral stent placement, fatty liver disease, GERD, OCD, IAN, who presents for a fall from the [facility]. #Fall #Epilepsy #Breakthrough seizures -unclear cause of fall from bed, likely mechanical in nature vs UTI -had breakthrough seizures on 04/11, code purple called, discussed with neurology Plan: -gentle hydration -recs followed per neurology -neurology consult, appreciate recs for consideration of seizure and polypharmacy -decreased dose of perphenazine #Severe Bacteriuria #Ureteral Stent -UA appears to be significantly infected in setting of chronic colonization -s/p stent removal and placement this admission Plan: -urology consulted, 04/21: Status post removal of right ureteral stent -follow up outpatient -ID consulted -given fluconazole, was treated w/ ceftriaxone #Abnormal CT Finding There is a new heterogeneous area of hypodensity in the periphery of the right lobe of the liver measuring 2.4 x 1.7 x 2.2 cm. -Further work up, management, and ff up as outpatient #Lateral T Wave Inversions -new from 2016 -echo with need for follow up outpatient #Severe Intellectual Disability #OCD #IAN -continue home meds austedo xr, perphenazine (decreased dose-3 mg at bedtime, 1 mg in the morning), seroquel, zoloft -continue miralax, bisacodyl suppository prn for constipation, -mouth care ordered -continue keppra and lamictal 05/11 Discussed w/ RN today. Pt took her meds, no acute events. Pt awake, appears comfortable/ at baseline. 05/12 Pt spiked fever, CBC obtained and WBC elevated. Pt nonverbal at baseline. Has Shafer placed and had urological procedures during this admission. Will exchange shafer, UA, CXR, blood cultures. will start empiric abx. Will obtain dopplers of LEs. will start IVF and also switch keppra to IV as pt did not take her po meds today. Cont. to closely monitor C. diff colitis - started PO vanco Ct abd/pelvis (05/12) 1. Findings compatible with an acute nonspecific diffuse proctocolitis, likely infectious or inflammatory. 2. Unremarkable CTA component of the study. 3. Decreased size of the left renal subcapsular hematoma. 4. Nonobstructing bilateral nephrolithiasis without hydronephrosis. 5. Cholelithiasis. 6. No bowel obstruction or pneumoperitoneum. 05/16 WBC now normalized, currently afebrile WBC down, pt still febrile. cont. to closely monitor, po vanco started, IVF LE dopplers negative - will likely also obtain CT PE as pt has been lying in bed for prolonged time, no dvt ppx , had hx of renal hematoma 05/14 WBC 10.5 K now. Getting tylenol. CT PE pending. Stools not as frequent per RN. Pt found soiled on physical exam though. Update: CT PE negative. Admission and Anticipated Discharge Date Admission Date: April 05, 2025 Subjective Pt seen in follow up Pt had urologic procedures during this hospital stay Recently she has been doing well, however 05/12 pt febrile. blood work obtained and WBC elevated. C.diff colitis - started on po vanco. WBC now normalized Currently lying in bed, in NAD, awake, alert, appears comfortable. Pt is nonverbal at baseline. [facility] caregiver sometimes present at bedside per report. No signs of pain, shortness of breath or seizure activity No other new symptoms Stools seems to be improving Review of Systems Review of Systems: All systems reviewed & are unremarkable except as noted in Subjective Physical Exam Physical Exam: General- WD/WN F , nonverbal, not in distress, breathing with no effort or accessory muscle use Eyes- anicteric Neck- no JVD Lungs- clear breath sounds anteriorly, no crackles or wheezes Heart- normal rate, regular rhythm; no murmurs Abdomen- normal bowel sounds, nondistended, soft, no tenderness appreciated Extremities- no pretibial edema, moves extremities Neuro- awake, alert , moves extremities Skin- warm & dry Results & Data Results & Data Vital Signs (Past 12 Hours) Vital Signs Temp Pulse Pulse Resp BP Pulse Ox O2 Del Method 05/15/25 07:24 72 05/15/25 03:45 36.5 C 73 16 118/71 97 Room Air 05/15/25 00:00 37.0 C 92 H 18 109/62 96 Room Air 05/14/25 21:44 91 H 05/14/25 20:48 Room Air 05/14/25 20:04 37.6 C H 89 16 154/73 H 96 Room Air Laboratory Results 05/15/25 05/14/25 Range/Units 06:20 07:09 WBC 5.35 10.85 H (4.8-10.8) K/ul RBC 3.16 L 3.12 L (4.20-5.40) M/uL Hgb 7.6 L 7.7 L (12.0-16.0) g/dl Hct 23.9 L 23.7 L (37.0-47.0) % MCV 75.6 L 76.0 L (80.0-100.0) fL MCH 24.1 L 24.7 L (25.0-34.0) pg MCHC 31.8 L 32.5 (32.0-36.0) g/dL RDW Std Deviation 48.5 H 49.1 H (36.4-46.3) fL RDW Coeff of Nic 17.4 H 17.7 H (11.5-14.5) % Plt Count 281 269 (130-400) K/uL MPV 10.6 10.9 (9.4-12.4) fL Sodium 138 137 (136-145) mmol/L Potassium 3.6 3.5 (3.5-5.1) mmol/L Chloride 110 H 110 H (98-107) mmol/L Carbon Dioxide 23 21 (21-32) mmol/L Anion Gap 5 6 (3-11) BUN 7 11 (6-23) mg/dl Creatinine 0.56 L 0.68 (0.6-1.2) mg/dl Est Cr Clr Drug Dosing 83.1 68.4 ml/min eGFR 105.07 100.26 BUN/Creatinine Ratio 12.5 16.2 (10-20) Glucose 93 75 (70-99(Fasting)) mg/dl Calcium 8.2 L 8.1 L (8.6-10.3) mg/dl Phosphorus 2.7 2.4 L (2.5-4.9) mg/dl Magnesium 1.8 1.9 (1.7-2.4) mg/dl Medications Administered Current Inpatient Medications Acetaminophen (Acetaminophen 500 Mg Tab) 1,000 mg PO Q4H PRN PRN Reason: elevated temp/headache/mild pain Stop: 06/04/25 16:42 Last Admin: 05/14/25 20:17 Dose: 1,000 mg Bisacodyl (Bisacodyl 5 Mg Tabec) 10 mg PO Q3D PRN PRN Reason: Constipation Stop: 06/04/25 16:42 Chlorhexidine Gluconate (Chlorhexidine Gluconate 0.12% 480 Ml) 15 ml MT TID SWAPNA Stop: 06/04/25 17:14 Last Admin: 05/14/25 20:19 Dose: 15 ml Clobazam (Clobazam 5 Mg Tab) 5 mg PO HS SAWPNA Stop: 06/04/25 20:59 Last Admin: 05/14/25 20:17 Dose: 5 mg Deutetrabenazine (Austedo [Patient Own Med]) 1 each PO DAILY SWAPNA Stop: 06/04/25 08:59 Last Admin: 05/14/25 08:58 Dose: 1 each Enoxaparin Sodium (Enoxaparin Inj 40 Mg/0.4 Ml Syr) 40 mg SQ QAM SWAPNA Stop: 06/12/25 12:29 Last Admin: 05/14/25 08:55 Dose: 40 mg Famotidine (Famotidine 20 Mg Tab) 20 mg PO DAILY SWAPNA Stop: 06/04/25 08:59 Last Admin: 05/14/25 09:08 Dose: 20 mg Acetaminophen (Ofirmev) 1,000 mg in 100 mls @ 400 mls/hr IV Q8H PRN PRN Reason: Fever Stop: 05/16/25 15:41 Last Infusion: 05/13/25 16:29 Dose: Infused Lactobacillus Acidophilus (Advanced Probiotic 625 Mg Capsule) 1,250 mg PO DAILY SWAPNA Stop: 06/11/25 16:59 Last Admin: 05/14/25 08:56 Dose: 1,250 mg Lamotrigine (Lamotrigine 25 Mg Tab) 50 mg PO [facility]; Protocol Stop: 06/04/25 20:59 Last Admin: 05/14/25 20:18 Dose: 50 mg Lamotrigine (Lamotrigine 100 Mg Tab) 200 mg PO [facility]; Protocol Stop: 06/04/25 20:59 Last Admin: 05/14/25 20:19 Dose: 200 mg Levetiracetam (Levetiracetam 500 Mg Tab) 1,500 mg PO BID SWAPNA Stop: 06/04/25 20:59 Last Admin: 05/12/25 10:49 Dose: Not Given Levetiracetam (Levetiracetam 500 Mg/5 Ml Vial) 1,500 mg IV Q12H [facility] Stop: 06/11/25 16:59 Last Admin: 05/15/25 04:47 Dose: 1,500 mg Metoprolol Succinate (Metoprolol Succ 25mg Ext Rel Tab) 25 mg PO QAM [facility] Stop: 06/04/25 08:59 Last Admin: 05/14/25 08:54 Dose: 25 mg Nystatin (Nystatin Powder 15gm Btl) 1 appln EXT Q8 PRN PRN Reason: Affected Skin Folds Stop: 06/04/25 01:07 Ondansetron HCl (Ondansetron Inj 2 Mg/Ml 2 Ml Vial) 4 mg IV Q6H PRN PRN Reason: Nausea Stop: 06/04/25 16:42 Last Admin: 04/25/25 11:25 Dose: 4 mg Perphenazine (Perphenazine 2 Mg Tab) 1 mg PO QAM [facility] Stop: 06/04/25 08:59 Last Admin: 05/14/25 08:57 Dose: 1 mg Perphenazine (Perphenazine 2 Mg Tab) 3 mg PO HS [facility] Stop: 06/04/25 20:59 Last Admin: 05/14/25 20:19 Dose: 3 mg Polyethylene Glycol (Polyethylene (Miralax) 17 Gm Pack) 17 gm PO QAM SWAP[facility] Stop: 06/04/25 08:59 Last Admin: 05/13/25 08:47 Dose: 17 gm Polyethylene Glycol (Polyethylene (Miralax) 17 Gm Pack) 17 gm PO DAILY PRN PRN Reason: Constipation Stop: 06/04/25 16:42 Potassium Chloride (Potassium Chloride 10 Meq Tabcr) 20 meq PO DAILY SWAPNA Stop: 06/04/25 08:59 Last Admin: 05/14/25 09:07 Dose: 20 meq Quetiapine Fumarate (Quetiapine Fumarate 25 Mg Tablet) 50 mg PO QAM [facility] Stop: 06/04/25 08:59 Last Admin: 05/14/25 08:59 Dose: 50 mg Quetiapine Fumarate (Quetiapine Fumarate 200 Mg Tab) 200 mg PO HS SWAPNA Stop: 06/04/25 20:59 Last Admin: 05/14/25 20:17 Dose: 200 mg Sertraline HCl (Sertraline Hcl 100 Mg Tablet) 100 mg PO QAM [facility]AP[facility] Stop: 06/04/25 08:59 Last Admin: 05/14/25 08:59 Dose: 100 mg Vancomycin HCl (Vancomycin Hcl 125 Mg Cap) 125 mg PO Q6 [facility] Stop: 05/23/25 13:04 Last Admin: 05/15/25 05:09 Dose: 125 mg
[2025-05-16 06:35] LABS: Hematocrit (blood only) 25.2 % (37.0-47.0); Hemoglobin 7.6 g/dl (12.0-16.0); Mean Corpuscular Hemoglobin 23.3 pg (25.0-34.0); Mean Corpuscular Volume 77.3 fL (80.0-100.0); Platelet Count 286 K/uL (130-400); RDW Standard Deviation 49.9 fL (36.4-46.3); Red Blood Count 3.26 M/uL (4.20-5.40); White Blood Count 4.98 K/ul (4.8-10.8)
[2025-05-16 07:02] LABS: Anion Gap 4.0 (3-11); Blood Urea Nitrogen 13.0 mg/dl (6-23); Calcium 8.3 mg/dl (8.6-10.3); Carbon Dioxide 25.0 mmol/L (21-32); Chloride 109.0 mmol/L (98-107); Creatinine Clr Calc Pharmacy 58.9 ml/min; Glucose 92.0 mg/dl (70-99(Fasting)); Magnesium 1.6 mg/dl (1.7-2.4); Potassium 3.9 mmol/L (3.5-5.1); Sodium 138.0 mmol/L (136-145)
--- NOTE | 2025-05-16 07:40 | Hospitalist Progress Note ---
Date of Service May 16, 2025 Assessment & Plan (1) Complicated UTI (urinary tract infection): (2) Nephrolithiasis: (3) Breakthrough seizure: (4) Epilepsy: (5) Ureteral stent present: (6) OCD (obsessive compulsive disorder): (7) Nonverbal: (8) Bladder incontinence: (9) Intellectual disability: (10) Repeated falls: (11) Liver lesion, right lobe: (12) Chronic disease anemia: Plan Per previous provider w/ addendum: (1) Nephrolithiasis: (2) Ureteral stent present: (3) Nonverbal: (4) Complicated UTI (urinary tract infection): (5) Severe intellectual disability: (6) Fatty (change of) liver, not elsewhere classified: (7) Tremor, unspecified: Plan 59 yo female with pmhx of severe intellectual disability c/b epilepsy, nonverbal status, fecal/urinary incontinence, s/p recent urethral stent placement, fatty liver disease, GERD, OCD, IAN, who presents for a fall from the [facility]. #Fall #Epilepsy #Breakthrough seizures -unclear cause of fall from bed, likely mechanical in nature vs UTI -had breakthrough seizures on 04/11, code purple called, discussed with neurology Plan: -gentle hydration -recs followed per neurology -neurology consult, appreciate recs for consideration of seizure and polypharmacy -decreased dose of perphenazine #Severe Bacteriuria #Ureteral Stent -UA appears to be significantly infected in setting of chronic colonization -s/p stent removal and placement this admission Plan: -urology consulted, 04/21: Status post removal of right ureteral stent -follow up outpatient -ID consulted -given fluconazole, was treated w/ ceftriaxone #Abnormal CT Finding There is a new heterogeneous area of hypodensity in the periphery of the right lobe of the liver measuring 2.4 x 1.7 x 2.2 cm. -Further work up, management, and ff up as outpatient #Lateral T Wave Inversions -new from 2016 -echo with need for follow up outpatient #Severe Intellectual Disability #OCD #IAN -continue home meds austedo xr, perphenazine (decreased dose-3 mg at bedtime, 1 mg in the morning), seroquel, zoloft -continue miralax, bisacodyl suppository prn for constipation, -mouth care ordered -continue keppra and lamictal 05/11 Discussed w/ RN today. Pt took her meds, no acute events. Pt awake, appears comfortable/ at baseline. 05/12 Pt spiked fever, CBC obtained and WBC elevated. Pt nonverbal at baseline. Has Shafer placed and had urological procedures during this admission. Will exchange shafer, UA, CXR, blood cultures. will start empiric abx. Will obtain dopplers of LEs. will start IVF and also switch keppra to IV as pt did not take her po meds today. Cont. to closely monitor C. diff colitis - started PO vanco Ct abd/pelvis (05/12) 1. Findings compatible with an acute nonspecific diffuse proctocolitis, likely infectious or inflammatory. 2. Unremarkable CTA component of the study. 3. Decreased size of the left renal subcapsular hematoma. 4. Nonobstructing bilateral nephrolithiasis without hydronephrosis. 5. Cholelithiasis. 6. No bowel obstruction or pneumoperitoneum. 05/16 - WBC now normalized, currently afebrile WBC down, pt still febrile. cont. to closely monitor, po vanco started, IVF LE dopplers negative - will likely also obtain CT PE as pt has been lying in bed for prolonged time, no dvt ppx , had hx of renal hematoma 05/14 WBC 10.5 K now. Getting tylenol. CT PE pending. Stools not as frequent per RN. Pt found soiled on physical exam though. Update: CT PE negative. Admission and Anticipated Discharge Date Admission Date: April 05, 2025 Subjective Pt seen in follow up Pt had urologic procedures during this hospital stay Recently she has been doing well, however 05/12 pt febrile. blood work obtained and WBC elevated. C.diff colitis - started on po vanco. WBC now normalized Currently lying in bed, in NAD, awake, alert, appears comfortable. Pt is nonverbal at baseline. [facility] caregiver sometimes present at bedside per report. No signs of pain, shortness of breath or seizure activity No other new symptoms Stools seems to be improving Review of Systems Review of Systems: All systems reviewed & are unremarkable except as noted in Subjective Physical Exam Physical Exam: General- WD/WN F , nonverbal, not in distress, breathing with no effort or a ccessory muscle use Eyes- anicteric Neck- no JVD Lungs- clear breath sounds anteriorly, no crackles or wheezes Heart- normal rate, regular rhythm; no murmurs Abdomen- normal bowel sounds, nondistended, soft, no tenderness appreciated Extremities- no pretibial edema, moves extremities Neuro- awake, alert , moves extremities Skin- warm & dry Results & Data Results & Data Vital Signs (Past 12 Hours) Vital Signs Temp Pulse Pulse Resp BP BP Pulse Ox 05/16/25 07:17 37.1 C 64 16 116/67 94 05/16/25 07:00 64 05/16/25 04:07 37.0 C 66 16 119/69 96 05/15/25 23:36 37.3 C 66 16 118/63 95 05/15/25 21:53 69 05/15/25 21:28 05/15/25 19:50 36.9 C 71 16 129/67 98 O2 Del Method 05/16/25 07:17 Room Air 05/16/25 07:00 05/16/25 04:07 Room Air 05/15/25 23:36 Room Air 05/15/25 21:53 05/15/25 21:28 Room Air 05/15/25 19:50 Room Air Laboratory Results 05/16/25 Range/Units 05:50 WBC 4.98 (4.8-10.8) K/ul RBC 3.26 L (4.20-5.40) M/uL Hgb 7.6 L (12.0-16.0) g/dl Hct 25.2 L (37.0-47.0) % MCV 77.3 L (80.0-100.0) fL MCH 23.3 L (25.0-34.0) pg MCHC 30.2 L (32.0-36.0) g/dL RDW Std Deviation 49.9 H (36.4-46.3) fL RDW Coeff of Nic 17.5 H (11.5-14.5) % Plt Count 286 (130-400) K/uL MPV 10.6 (9.4-12.4) fL Sodium 138 (136-145) mmol/L Potassium 3.9 (3.5-5.1) mmol/L Chloride 109 H (98-107) mmol/L Carbon Dioxide 25 (21-32) mmol/L Anion Gap 4 (3-11) BUN 13 (6-23) mg/dl Creatinine 0.79 (0.6-1.2) mg/dl Est Cr Clr Drug Dosing 58.9 ml/min eGFR 86.11 BUN/Creatinine Ratio 16.5 (10-20) Glucose 92 (70-99(Fasting)) mg/dl Calcium 8.3 L (8.6-10.3) mg/dl Phosphorus 3.1 (2.5-4.9) mg/dl Magnesium 1.6 L (1.7-2.4) mg/dl Medications Administered Current Inpatient Medications Acetaminophen (Acetaminophen 500 Mg Tab) 1,000 mg PO Q4H PRN PRN Reason: elevated temp/headache/mild pain Stop: 06/04/25 16:42 Last Admin: 05/14/25 20:17 Dose: 1,000 mg Bisacodyl (Bisacodyl 5 Mg Tabec) 10 mg PO Q3D PRN PRN Reason: Constipation Stop: 06/04/25 16:42 Chlorhexidine Gluconate (Chlorhexidine Gluconate 0.12% 480 Ml) 15 ml MT TID SWAPNA Stop: 06/04/25 17:14 Last Admin: 05/15/25 20:32 Dose: 15 ml Clobazam (Clobazam 5 Mg Tab) 5 mg PO HS SWAPNA Stop: 06/04/25 20:59 Last Admin: 05/15/25 20:32 Dose: 5 mg Deutetrabenazine (Austedo [Patient Own Med]) 1 each PO DAILY SWAPNA Stop: 06/04/25 08:59 Last Admin: 05/15/25 07:54 Dose: 1 each Enoxaparin Sodium (Enoxaparin Inj 40 Mg/0.4 Ml Syr) 40 mg SQ QAM SWAPNA Stop: 06/12/25 12:29 Last Admin: 05/15/25 07:54 Dose: 40 mg Famotidine (Famotidine 20 Mg Tab) 20 mg PO DAILY SWAPNA Stop: 06/04/25 08:59 Last Admin: 05/15/25 08:03 Dose: 20 mg Acetaminophen (Ofirmev) 1,000 mg in 100 mls @ 400 mls/hr IV Q8H PRN PRN Reason: Fever Stop: 05/16/25 15:41 Last Infusion: 05/13/25 16:29 Dose: Infused Lactobacillus Acidophilus (Advanced Probiotic 625 Mg Capsule) 1,250 mg PO DAILY SWAPNA Stop: 06/11/25 16:59 Last Admin: 05/15/25 07:57 Dose: 1,250 mg Lamotrigine (Lamotrigine 25 Mg Tab) 50 mg PO [facility]; Protocol Stop: 06/04/25 20:59 Last Admin: 05/15/25 20:32 Dose: 50 mg Lamotrigine (Lamotrigine 100 Mg Tab) 200 mg PO [facility]; Protocol Stop: 06/04/25 20:59 Last Admin: 05/15/25 20:32 Dose: 200 mg Levetiracetam (Levetiracetam 500 Mg Tab) 1,500 mg PO BID [facility] Stop: 06/04/25 20:59 Last Admin: 05/12/25 10:49 Dose: Not Given Levetiracetam (Levetiracetam 500 Mg/5 Ml Vial) 1,500 mg IV Q12H [facility] Stop: 06/11/25 16:59 Last Admin: 05/16/25 05:54 Dose: 1,500 mg Metoprolol Succinate (Metoprolol Succ 25mg Ext Rel Tab) 25 mg PO QAM [facility] Stop: 06/04/25 08:59 Last Admin: 05/15/25 07:55 Dose: 25 mg Nystatin (Nystatin Powder 15gm Btl) 1 appln EXT Q8 PRN PRN Reason: Affected Skin Folds Stop: 06/04/25 01:07 Ondansetron HCl (Ondansetron Inj 2 Mg/Ml 2 Ml Vial) 4 mg IV Q6H PRN PRN Reason: Nausea Stop: 06/04/25 16:42 Last Admin: 04/25/25 11:25 Dose: 4 mg Perphenazine (Perphenazine 2 Mg Tab) 1 mg PO QAM [facility] Stop: 06/04/25 08:59 Last Admin: 05/15/25 07:56 Dose: 1 mg Perphenazine (Perphenazine 2 Mg Tab) 3 mg PO HS [facility] Stop: 06/04/25 20:59 Last Admin: 05/15/25 20:32 Dose: 3 mg Polyethylene Glycol (Polyethylene (Miralax) 17 Gm Pack) 17 gm PO QAM [facility] Stop: 06/04/25 08:59 Last Admin: 05/13/25 08:47 Dose: 17 gm Polyethylene Glycol (Polyethylene (Miralax) 17 Gm Pack) 17 gm PO DAILY PRN PRN Reason: Constipation Stop: 06/04/25 16:42 Potassium Chloride (Potassium Chloride 10 Meq Tabcr) 20 meq PO DAILY SWAPNA Stop: 06/04/25 08:59 Last Admin: 05/15/25 08:04 Dose: 20 meq Quetiapine Fumarate (Quetiapine Fumarate 25 Mg Tablet) 50 mg PO QAM SWAP[facility] Stop: 06/04/25 08:59 Last Admin: 05/15/25 07:55 Dose: 50 mg Quetiapine Fumarate (Quetiapine Fumarate 200 Mg Tab) 200 mg PO HS SWAPNA Stop: 06/04/25 20:59 Last Admin: 05/15/25 20:32 Dose: 200 mg Sertraline HCl (Sertraline Hcl 100 Mg Tablet) 100 mg PO QAM [facility]AP[facility] Stop: 06/04/25 08:59 Last Admin: 05/15/25 07:55 Dose: 100 mg Vancomycin HCl (Vancomycin Hcl 125 Mg Cap) 125 mg PO Q6 [facility]AP[facility] Stop: 05/23/25 13:04 Last Admin: 05/16/25 06:03 Dose: 125 mg
[2025-05-17] MEDS: MENTHOL-ZINC OXIDE 360 APPLN/120 GM TUBE EXT SCH (01:17)
--- NOTE | 2025-05-17 07:51 | Hospitalist Progress Note ---
Date of Service May 17, 2025 Assessment & Plan (1) Complicated UTI (urinary tract infection): (2) Nephrolithiasis: (3) Breakthrough seizure: (4) Epilepsy: (5) Ureteral stent present: (6) OCD (obsessive compulsive disorder): (7) Nonverbal: (8) Bladder incontinence: (9) Intellectual disability: (10) Repeated falls: (11) Liver lesion, right lobe: (12) Chronic disease anemia: Plan (1) Nephrolithiasis: (2) Ureteral stent present: (3) Nonverbal: (4) Complicated UTI (urinary tract infection): (5) Severe intellectual disability: (6) Fatty (change of) liver, not elsewhere classified: (7) Tremor, unspecified: Plan 59 yo female with pmhx of severe intellectual disability c/b epilepsy, nonverbal status, fecal/urinary incontinence, s/p recent urethral stent placement, fatty liver disease, GERD, OCD, IAN, who presents for a fall from the [facility]. #Fall #Epilepsy #Breakthrough seizures -unclear cause of fall from bed, likely mechanical in nature vs UTI -had breakthrough seizures on 04/11, code purple called, discussed with neurology Plan: -gentle hydration -recs followed per neurology -neurology consult, appreciate recs for consideration of seizure and polypharmacy -decreased dose of perphenazine #Severe Bacteriuria #Ureteral Stent -UA appears to be significantly infected in setting of chronic colonization -s/p stent removal and placement this admission Plan: -urology consulted, 04/21: Status post removal of right ureteral stent -follow up outpatient -ID consulted -given fluconazole, was treated w/ ceftriaxone #Abnormal CT Finding There is a new heterogeneous area of hypodensity in the periphery of the right lobe of the liver measuring 2.4 x 1.7 x 2.2 cm. -Further work up, management, and ff up as outpatient #Lateral T Wave Inversions -new from 2016 -echo with need for follow up outpatient #Severe Intellectual Disability #OCD #IAN -continue home meds austedo xr, perphenazine (decreased dose-3 mg at bedtime, 1 mg in the morning), seroquel, zoloft -continue miralax, bisacodyl suppository prn for constipation, -mouth care ordered -continue keppra and lamictal 05/11 Discussed w/ RN today. Pt took her meds, no acute events. Pt awake, appears comfortable/ at baseline. 05/12 Pt spiked fever, CBC obtained and WBC elevated at 20K. Pt nonverbal at baseline. Has Shafer placed and had urological procedures during this admission. Will exchange shafer, UA, CXR, blood cultures. will start empiric abx. Will obtain dopplers of LEs. will start IVF and also switch keppra to IV as pt did not take her po meds today. Cont. to closely monitor C. diff colitis - started PO vanco CT abd/pelvis (05/12) 1. Findings compatible with an acute nonspecific diffuse proctocolitis, likely infectious or inflammatory. 2. Unremarkable CTA component of the study. 3. Decreased size of the left renal subcapsular hematoma. 4. Nonobstructing bilateral nephrolithiasis without hydronephrosis. 5. Cholelithiasis. 6. No bowel obstruction or pneumoperitoneum. 05/16 WBC now normalized, currently afebrile 05/17 WBC normal, but spiked temp. 38.1C early this AM again. cont. PO vanco WBC down, pt still febrile. cont. to closely monitor, po vanco started, IVF LE dopplers negative - will likely also obtain CT PE as pt has been lying in bed for prolonged time, no dvt ppx , had hx of renal hematoma 05/14 WBC 10.[address] now[address]lenol[address] PE pending. Stools not as frequent per RN. Pt found soiled on physical exam though. Update: CT PE negative. Admission and Anticipated Discharge Date Admission Date: April 05, 2025 Subjective Pt seen in follow up Pt had urologic procedures during this hospital stay Recently she has been doing well, however 05/12 pt febrile. blood work obtained and WBC elevated. C.diff colitis - started on po vanco. WBC now normalized. Fever resolved but now had a spike at 38.1C early this AM. Currently lying in bed, in NAD, awake, alert, appears comfortable. Pt is nonverbal at baseline. Pt cooperative today with me, following simple commands. Per RN, pt took her pills today. [facility] caregiver sometimes present at bedside per report. No signs of pain, shortness of breath or seizure activity No other new symptoms Stools seems to be improving. Had 2 overnight. None yet today. Review of Systems Review of Systems: All systems reviewed & are unremarkable except as noted in Subjective Physical Exam Physical Exam: General- WD/WN F , nonverbal, not in distress, breathing with no effort or accessory muscle use Eyes- anicteric Neck- no JVD Lungs- clear breath sounds anteriorly, no crackles or wheezes Heart- normal rate, regular rhythm; no murmurs Abdomen- normal bowel sounds, nondistended, soft, no tenderness appreciated Extremities- no pretibial edema, moves extremities Neuro- awake, alert , moves extremities Skin- warm & dry Results & Data Results & Data Vital Signs (Past 12 Hours) Vital Signs Temp Pulse Pulse Resp BP Pulse Ox O2 Del Method 05/17/25 07:22 Room Air 05/17/25 07:11 166/84 H 05/17/25 07:00 87 05/17/25 06:58 37.2 C 87 18 180/79 H 96 Room Air 05/17/25 04:39 38.1 C H 85 20 159/81 H 97 Room Air 05/17/25 00:21 37.5 C 92 H 20 170/88 H 97 Room Air 05/16/25 22:24 36.8 C 85 18 178/46 H 99 Room Air 05/16/25 22:14 87 Laboratory Results 05/17/25 Range/Units 09:40 WBC 6.52 (4.8-10.8) K/ul RBC 3.75 L (4.20-5.40) M/uL Hgb 9.0 L (12.0-16.0) g/dl Hct 28.1 L (37.0-47.0) % MCV 74.9 L (80.0-100.0) fL MCH 24.0 L (25.0-34.0) pg MCHC 32.0 (32.0-36.0) g/dL RDW Std Deviation 46.9 H (36.4-46.3) fL RDW Coeff of Nic 17.2 H (11.5-14.5) % Plt Count 371 (130-400) K/uL MPV 10.8 (9.4-12.4) fL Sodium 138 (136-145) mmol/L Potassium 3.2 L (3.5-5.1) mmol/L Chloride 105 (98-107) mmol/L Carbon Dioxide 24 (21-32) mmol/L Anion Gap 9 (3-11) BUN 5 L (6-23) mg/dl Creatinine 0.68 (0.6-1.2) mg/dl Est Cr Clr Drug Dosing 68.4 ml/min eGFR 100.26 BUN/Creatinine Ratio 7.4 L (10-20) Glucose 155 H (70-99(Fasting)) mg/dl Calcium 8.7 (8.6-10.3) mg/dl Phosphorus 3.2 (2.5-4.9) mg/dl Magnesium 1.7 (1.7-2.4) mg/dl Medications Administered Current Inpatient Medications Acetaminophen (Acetaminophen 500 Mg Tab) 1,000 mg PO Q4H PRN PRN Reason: elevated temp/headache/mild pain Stop: 06/04/25 16:42 Last Admin: 05/17/25 03:59 Dose: 1,000 mg Bisacodyl (Bisacodyl 5 Mg Tabec) 10 mg PO Q3D PRN PRN Reason: Constipation Stop: 06/04/25 16:42 Calamine/Phenol (Menthol-Zinc Oxide 360 Appln/120 Gm Tube) 1 appln EXT BID SWAPNA Stop: 06/16/25 00:29 Last Admin: 05/17/25 07:32 Dose: 1 appln Chlorhexidine Gluconate (Chlorhexidine Gluconate 0.12% 480 Ml) 15 ml MT TID SWAPNA Stop: 06/04/25 17:14 Last Admin: 05/17/25 07:14 Dose: Not Given Clobazam (Clobazam 5 Mg Tab) 5 mg PO HS SWAPNA Stop: 06/04/25 20:59 Last Admin: 05/16/25 20:53 Dose: 5 mg Deutetrabenazine (Austedo [Patient Own Med]) 1 each PO DAILY SWAPNA Stop: 06/04/25 08:59 Last Admin: 05/17/25 07:14 Dose: 1 each Enoxaparin Sodium (Enoxaparin Inj 40 Mg/0.4 Ml Syr) 40 mg SQ QAM SWAP[facility] Stop: 06/12/25 12:29 Last Admin: 05/17/25 07:15 Dose: 40 mg Famotidine (Famotidine 20 Mg Tab) 20 mg PO DAILY SWAPNA Stop: 06/04/25 08:59 Last Admin: 05/17/25 07:18 Dose: 20 mg Magnesium Sulfate/Dextrose (Magnesium Sulfate / D5w) 1 gm in 100 mls @ 50 mls/hr IV ONE ONE Stop: 05/17/25 09:49 Lactobacillus Acidophilus (Advanced Probiotic 625 Mg Capsule) 1,250 mg PO DAILY [facility] Stop: 06/11/25 16:59 Last Admin: 05/17/25 07:15 Dose: 1,250 mg Lamotrigine (Lamotrigine 25 Mg Tab) 50 mg PO AMHS [facility]; Protocol Stop: 06/04/25 20:59 Last Admin: 05/17/25 07:13 Dose: 50 mg Lamotrigine (Lamotrigine 100 Mg Tab) 200 mg PO AMHS [facility]; Protocol Stop: 06/04/25 20:59 Last Admin: 05/17/25 07:13 Dose: 200 mg Levetiracetam (Levetiracetam 500 Mg Tab) 1,500 mg PO BID [facility] Stop: 06/04/25 20:59 Last Admin: 05/12/25 10:49 Dose: Not Given Levetiracetam (Levetiracetam 500 Mg/5 Ml Vial) 1,500 mg IV Q12H [facility] Stop: 06/11/25 16:59 Last Admin: 05/17/25 05:14 Dose: 1,500 mg Metoprolol Succinate (Metoprolol Succ 25mg Ext Rel Tab) 25 mg PO QAM [facility] Stop: 06/04/25 08:59 Last Admin: 05/17/25 07:13 Dose: 25 mg Nystatin (Nystatin Powder 15gm Btl) 1 appln EXT Q8 PRN PRN Reason: Affected Skin Folds Stop: 06/04/25 01:07 Ondansetron HCl (Ondansetron Inj 2 Mg/Ml 2 Ml Vial) 4 mg IV Q6H PRN PRN Reason: Nausea Stop: 06/04/25 16:42 Last Admin: 04/25/25 11:25 Dose: 4 mg Perphenazine (Perphenazine 2 Mg Tab) 1 mg PO QAM [facility] Stop: 06/04/25 08:59 Last Admin: 05/17/25 07:13 Dose: 1 mg Perphenazine (Perphenazine 2 Mg Tab) 3 mg PO HS [facility] Stop: 06/04/25 20:59 Last Admin: 05/16/25 20:54 Dose: 3 mg Polyethylene Glycol (Polyethylene (Miralax) 17 Gm Pack) 17 gm PO QAM [facility] Stop: 06/04/25 08:59 Last Admin: 05/13/25 08:47 Dose: 17 gm Polyethylene Glycol (Polyethylene (Miralax) 17 Gm Pack) 17 gm PO DAILY PRN PRN Reason: Constipation Stop: 06/04/25 16:42 Potassium Chloride (Potassium Chloride 10 Meq Tabcr) 20 meq PO DAILY SWAP[facility] Stop: 06/04/25 08:59 Last Admin: 05/17/25 07:17 Dose: 20 meq Quetiapine Fumarate (Quetiapine Fumarate 25 Mg Tablet) 50 mg PO QAM [facility] Stop: 06/04/25 08:59 Last Admin: 05/17/25 07:12 Dose: 50 mg Quetiapine Fumarate (Quetiapine Fumarate 200 Mg Tab) 200 mg PO HS [facility] Stop: 06/04/25 20:59 Last Admin: 05/16/25 20:53 Dose: 200 mg Sertraline HCl (Sertraline Hcl 100 Mg Tablet) 100 mg PO QAM [facility] Stop: 06/04/25 08:59 Last Admin: 05/17/25 07:14 Dose: 100 mg Vancomycin HCl (Vancomycin Hcl 125 Mg Cap) 125 mg PO Q6 [facility] Stop: 05/23/25 13:04 Last Admin: 05/17/25 06:04 Dose: 125 mg
[2025-05-17] MEDS: MAGNESIUM SULFATE / D5W 1 GM/100 ML BAG IV ONE (08:46)
[2025-05-17 10:06] LABS: Hematocrit (blood only) 28.1 % (37.0-47.0); Hemoglobin 9.0 g/dl (12.0-16.0); Mean Corpuscular Hemoglobin 24.0 pg (25.0-34.0); Mean Corpuscular Volume 74.9 fL (80.0-100.0); Platelet Count 371 K/uL (130-400); RDW Standard Deviation 46.9 fL (36.4-46.3); Red Blood Count 3.75 M/uL (4.20-5.40); White Blood Count 6.52 K/ul (4.8-10.8)
[2025-05-17 10:22] LABS: Anion Gap 9.0 (3-11); Blood Urea Nitrogen 5.0 mg/dl (6-23); Calcium 8.7 mg/dl (8.6-10.3); Carbon Dioxide 24.0 mmol/L (21-32); Chloride 105.0 mmol/L (98-107); Creatinine Clr Calc Pharmacy 68.4 ml/min; Glucose 155.0 mg/dl (70-99(Fasting)); Magnesium 1.7 mg/dl (1.7-2.4); Potassium 3.2 mmol/L (3.5-5.1); Sodium 138.0 mmol/L (136-145)
[2025-05-17] MEDS: POTASSIUM CHLORIDE CRTAB 20 MEQ TABCR PO STA (12:22)
[2025-05-18 07:45] LABS: Hematocrit (blood only) 27.8 % (37.0-47.0); Hemoglobin 8.6 g/dl (12.0-16.0); Mean Corpuscular Hemoglobin 23.4 pg (25.0-34.0); Mean Corpuscular Volume 75.7 fL (80.0-100.0); Platelet Count 330 K/uL (130-400); RDW Standard Deviation 48.2 fL (36.4-46.3); Red Blood Count 3.67 M/uL (4.20-5.40); White Blood Count 6.83 K/ul (4.8-10.8)
[2025-05-18 08:05] LABS: Anion Gap 6.0 (3-11); Blood Urea Nitrogen 3.0 mg/dl (6-23); Calcium 8.7 mg/dl (8.6-10.3); Carbon Dioxide 26.0 mmol/L (21-32); Chloride 108.0 mmol/L (98-107); Creatinine Clr Calc Pharmacy 71.6 ml/min; Glucose 99.0 mg/dl (70-99(Fasting)); Magnesium 1.7 mg/dl (1.7-2.4); Potassium 4.4 mmol/L (3.5-5.1); Sodium 140.0 mmol/L (136-145)
--- NOTE | 2025-05-18 11:19 | Hospitalist Progress Note ---
Date of Service May 18, 2025 Assessment & Plan (1) Complicated UTI (urinary tract infection): (2) Nephrolithiasis: (3) Breakthrough seizure: (4) Epilepsy: (5) Ureteral stent present: (6) OCD (obsessive compulsive disorder): (7) Nonverbal: (8) Bladder incontinence: (9) Intellectual disability: (10) Repeated falls: (11) Liver lesion, right lobe: (12) Chronic disease anemia: Plan 59 yo female with pmhx of severe intellectual disability c/b epilepsy, nonverbal status, fecal/urinary incontinence, s/p recent urethral stent placement, fatty liver disease, GERD, OCD, IAN, who presents for a fall from the [facility]. #Fall #Epilepsy #Breakthrough seizures -unclear cause of fall from bed, likely mechanical in nature vs UTI -had breakthrough seizures on 04/11, code purple called, discussed with neurology Plan -No further episodes. Continue current AED regimen, switch to PO -Dispo TBD, CM assisting #C. diff -Diarrhea resolved -Continue PO vanc through 05/23 #Severe Bacteriuria #Ureteral Stent -UA appears to be significantly infected in setting of chronic colonization -s/p stent removal and placement this admission Plan: -urology consulted, 04/21: Status post removal of right ureteral stent -follow up outpatient -ID consulted -Completed abx regimen #Abnormal CT Finding There is a new heterogeneous area of hypodensity in the periphery of the right lobe of the liver measuring 2.4 x 1.7 x 2.2 cm. -Further work up, management, and ff up as outpatient #Lateral T Wave Inversions -new from 2017 -echo with need for follow up outpatient #Severe Intellectual Disability #OCD #IAN -continue home meds austedo xr, perphenazine (decreased dose-3 mg at bedtime, 1 mg in the morning), seroquel, zoloft -continue miralax, bisacodyl suppository prn for constipation, -mouth care ordered -continue keppra and lamictal I spent a total of 35 minutes coordinating, documenting, and providing care for this patient excluding time spent in the performance of separately billed services. This included personally reviewing all current laboratories and imaging studies, medical reconciliation, outpatient chart review and discussion with specialists Admission and Anticipated Discharge Date Admission Date: April 05, 2025 Subjective Seen in room with patient. non verbal but cooperative Physical Exam Physical Exam: General- WD/WN F , nonverbal, not in distress, breathing with no effort or accessory muscle use Eyes- anicteric Neck- no JVD Lungs- clear breath sounds anteriorly, no crackles or wheezes Heart- normal rate, regular rhythm; no murmurs Abdomen- normal bowel sounds, nondistended, soft, no tenderness appreciated Extremities- no pretibial edema, moves extremities Neuro- awake, alert , moves extremities Skin- warm & dry Results & Data Results & Data Vital Signs (Past 12 Hours) Vital Signs Temp Pulse Resp BP Pulse Ox O2 Del Method 05/18/25 08:06 36.9 C 66 18 118/72 97 Room Air 05/18/25 03:05 36.4 C L 67 18 122/59 L 97 Room Air Laboratory Results Abnormal lab results 05/18/25 Range/Units 07:20 RBC 3.67 L (4.20-5.40) M/uL Hgb 8.6 L (12.0-16.0) g/dl Hct 27.8 L (37.0-47.0) % MCV 75.7 L (80.0-100.0) fL MCH 23.4 L (25.0-34.0) pg MCHC 30.9 L (32.0-36.0) g/dL RDW Std Deviation 48.2 H (36.4-46.3) fL RDW Coeff of Nic 17.7 H (11.5-14.5) % Chloride 108 H (98-107) mmol/L BUN 3 L (6-23) mg/dl BUN/Creatinine Ratio 4.6 L (10-20)
[2025-05-19] MEDS: LACTATED RINGER'S 1,000 ML IV ONE (02:38)
--- NOTE | 2025-05-19 10:07 | Hospitalist Progress Note ---
Date of Service May 19, 2025 Assessment & Plan (1) Complicated UTI (urinary tract infection): (2) Nephrolithiasis: (3) Breakthrough seizure: (4) Epilepsy: (5) Ureteral stent present: (6) OCD (obsessive compulsive disorder): (7) Nonverbal: (8) Bladder incontinence: (9) Intellectual disability: (10) Repeated falls: (11) Liver lesion, right lobe: (12) Chronic disease anemia: Plan 59 yo female with pmhx of severe intellectual disability c/b epilepsy, nonverbal status, fecal/urinary incontinence, s/p recent urethral stent placement, fatty liver disease, GERD, OCD, IAN, who presents for a fall from the [facility]. #Fall #Epilepsy #Breakthrough seizures -unclear cause of fall from bed, likely mechanical in nature vs UTI -had breakthrough seizures on 04/11, code kelby called, discussed with neurology Plan -No further episodes. Continue current AED regimen, switch to PO -Back to assisted tomorrow. meds sent to pharmacy #Urinary retention -Common issue with her -Voiding trial today #C. diff -Diarrhea resolved -Continue PO vanc through 05/23 #Severe Bacteriuria #Ureteral Stent -UA appears to be significantly infected in setting of chronic colonization -s/p stent removal and placement this admission Plan: -urology consulted, 04/21: Status post removal of right ureteral stent -follow up outpatient -ID consulted -Completed abx regimen #Abnormal CT Finding There is a new heterogeneous area of hypodensity in the periphery of the right lobe of the liver measuring 2.4 x 1.7 x 2.2 cm. -Further work up, management, and ff up as outpatient #Lateral T Wave Inversions -new from 2016 -echo with need for follow up outpatient #Severe Intellectual Disability #OCD #IAN -continue home meds austedo xr, perphenazine (decreased dose-3 mg at bedtime, 1 mg in the morning), seroquel, zoloft -continue miralax, bisacodyl suppository prn for constipation, -mouth care ordered -continue keppra and lamictal I spent a total of 39minutes coordinating, documenting, and providing care for this patient excluding time spent in the performance of separately billed services. This included personally reviewing all current laboratories and imaging studies, medical reconciliation, outpatient chart review and discussion with specialists Admission and Anticipated Discharge Date Admission Date: April 05, 2025 Subjective Seen in room with patient. non verbal but cooperative Physical Exam Physical Exam: General- WD/WN F , nonverbal, not in distress, breathing with no effort or accessory muscle use Eyes- anicteric Neck- no JVD Lungs- clear breath sounds anteriorly, no crackles or wheezes Heart- normal rate, regular rhythm; no murmurs Abdomen- normal bowel sounds, nondistended, soft, no tenderness appreciated Extremities- no pretibial edema, moves extremities Neuro- awake, alert , moves extremities Skin- warm & dry Results & Data Results & Data Vital Signs (Past 12 Hours) Vital Signs Temp Pulse Pulse Resp BP Pulse Ox O2 Del Method 05/19/25 07:40 36.9 C 68 20 102/59 L 99 Room Air 05/19/25 06:45 71 05/19/25 02:20 36.9 C 73 16 99/61 L 96 Room Air 05/18/25 23:29 37 C 77 16 143/37 H 98 Room Air
[2025-05-19] MEDS: INFLUENZA VACC TS2025-26(6m+)/PF (IIV3) 0.5mL Syr IM ONE ×2 (13:00)
--- NOTE | 2025-05-20 10:14 | Discharge Summary ---
Discharge Summary Date of Service May 20, 2025 Principal Dx & Hospital Course #1 = Principal Diagnosis (1) Complicated UTI (urinary tract infection): (2) Nephrolithiasis: (3) Breakthrough seizure: (4) Epilepsy: (5) Ureteral stent present: (6) OCD (obsessive compulsive disorder): (7) Nonverbal: (8) Bladder incontinence: (9) Intellectual disability: (10) Repeated falls: (11) Liver lesion, right lobe: (12) Chronic disease anemia: Plan 59 yo female with pmhx of severe intellectual disability c/b epilepsy, nonverbal status, fecal/urinary incontinence, s/p recent urethral stent placement, fatty liver disease, GERD, OCD, IAN, who presents for a fall from the [facility]. She was treated for UTI in setting of R ureteral stent. urology was consulted and removed stent. ID was consulted and she completed abx regimen. She is to f/u with urology, Dr Dilip Napoles as OP. Her stay was c/b C. diff and is on PO vancomycin. She will continue this through 05/23. She also had a possible breakthrough seizure and neuro was consulted. She has been seizure free and is to maintain her current AED regimen of lamictal 250 qAM and keppra 1500 BID. Her shafer was removed yesterday and she has been voiding. vitals are stable for dc back to her retirement. #Fall #Epilepsy #Breakthrough seizures -unclear cause of fall from bed, likely mechanical in nature vs UTI -had breakthrough seizures on 04/11, code purple called, discussed with neurology Plan -No further episodes. Continue current AED regimen, switch to PO -Back to retirement tomorrow. meds sent to pharmacy #Urinary retention -Common issue with her -Voiding trial today #C. diff -Diarrhea resolved -Continue PO vanc through 05/23 #Severe Bacteriuria #Ureteral Stent -UA appears to be significantly infected in setting of chronic colonization -s/p stent removal and placement this admission Plan: -urology consulted, 04/21: Status post removal of right ureteral stent -follow up outpatient -ID consulted -Completed abx regimen #Abnormal CT Finding There is a new heterogeneous area of hypodensity in the periphery of the right lobe of the liver measuring 2.4 x 1.7 x 2.2 cm. -Further work up, management, and ff up as outpatient #Lateral T Wave Inversions -new from 2017 -echo with need for follow up outpatient #Severe Intellectual Disability #OCD #IAN -continue home meds austedo xr, perphenazine (decreased dose-3 mg at bedtime, 1 mg in the morning), seroquel, zoloft -continue miralax, bisacodyl suppository prn for constipation, -mouth care ordered -continue keppra and lamictal I spent a total of 42 minutes coordinating, documenting, and providing care for this patient excluding time spent in the performance of separately billed services. This included personally reviewing all current laboratories and imaging studies, medical reconciliation, outpatient chart review and discussion with specialists Notes For Next Care Provider Medication Changes From Visit PO vanc as above Admission HPI Per Admitting Provider 59 yo female with pmhx of severe intellectual disability c/b epilepsy, nonverbal status, fecal/urinary incontinence, s/p recent urethral stent placement, fatty liver disease, GERD, OCD, IAN, who presents for a fall from the [facility]. Had recent admission 02/2025 for urosepsis now s/p stent placement and abx. In the ED, given cefepime, labwork, urology requested admission to prevent decompensation of possible UTI, admitted to medicine. Patient seen and examined at bedside. Patient nonverbal. [facility] caregiver present and provides entire history. Patient was found fallen off of her bed. Yesterday appeared spacy and "out of it." Otherwise she appears to be similar to how she always is. States that they are concerned she has a UTI and would like it evaluated and stabilized before discharge. Patient will selectively refuse medications. Understands conversations but not able to verbalize any response. Occasionally walks but is unlikely to do so here per caregiver. Things important to her care: chocolate pudding for giving meds, does not like socks, will not drink plain water likes flavored water. 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 able to consent for procedures. Full code. Discharge Exam General- WD/WN F , nonverbal, not in distress, breathing with no effort or accessory muscle use Eyes- anicteric Neck- no JVD Lungs- clear breath sounds anteriorly, no crackles or wheezes Heart- normal rate, regular rhythm; no murmurs Abdomen- normal bowel sounds, nondistended, soft, no tenderness appreciated Extremities- no pretibial edema, moves extremities Neuro- awake, alert , moves extremities Skin- warm & dry Updated Medication List Medication Instructions Recorded Confirmed Type acetaminophen 500 mg tablet 500 mg PO QAM chronic pain 12/15/24 04/05/25 History aloe vera 1 applic topical Q1H PRN Sunburn 12/15/24 04/05/25 History aluminum-mag hydroxide-simethicone 10 ml PO DIRECTED PRN 12/15/24 04/05/25 History 400 mg-400 mg-40 mg/5 mL oral susp Indigestion (Maalox Maximum Strength) bisacodyl 5 mg tablet,delayed 10 mg PO Q3D PRN Constipation 12/15/24 04/05/25 History release (Dulcolax (bisacodyl)) chlorhexidine gluconate 0.12 % 1 applic buccal TID chronic 12/15/24 04/05/25 History mouthwash gingivitis clobazam 10 mg tablet (Onfi) 5 mg PO HS 12/15/24 04/05/25 History deutetrabenazine 36 mg 36 mg PO DAILY 12/15/24 04/05/25 History tablet,extended release 24 hr (Austedo XR) docusate sodium 100 mg capsule 100 mg PO AMHS 12/15/24 04/05/25 History famotidine 40 mg tablet (Pepcid) 40 mg PO DAILY 12/15/24 04/05/25 History glycopyrrolate 1 mg tablet 1 mg PO TID excessive drooling 12/15/24 04/05/25 History (Robinul) hydrocortisone 1 % topical cream 1 applic topical TID PRN Rash 12/15/24 04/05/25 History lamotrigine 100 mg tablet 50 mg PO AMHS 12/15/24 04/05/25 History lamotrigine 200 mg tablet 200 mg PO AMHS 12/15/24 04/05/25 History (Lamictal) levetiracetam 1,000 mg tablet 1,000 mg PO BID 12/15/24 04/05/25 History levetiracetam 500 mg tablet 500 mg PO BID 12/15/24 04/05/25 History (Keppra) loperamide 2 mg capsule (Imodium 2 mg PO DIRECTED PRN Loose Stool 12/15/24 04/05/25 History A-D) multivitamin 1 tab PO QAM 12/15/24 04/05/25 History phosphorated carbohydrate oral 30 ml PO DIRECTED PRN Nausea 12/15/24 04/05/25 History solution (Emetrol oral solution) polyethylene glycol 3350 17 17 g PO QAM 12/15/24 04/05/25 History gram/dose oral powder (Miralax) quetiapine 200 mg tablet (Seroquel) 200 mg PO HS 12/15/24 04/05/25 History quetiapine 50 mg tablet (Seroquel) 50 mg PO QAM 12/15/24 04/05/25 History sertraline 100 mg tablet (Zoloft) 100 mg PO QAM 12/15/24 04/05/25 History cholecalciferol (vitamin D3) 125 125 mcg PO QAM #30 tabs 12/24/24 04/05/25 Rx mcg (5,000 unit) tablet ferrous sulfate 325 mg (65 mg 325 mg PO BIDM #60 tabs 12/24/24 04/05/25 Rx iron) tablet,delayed release calcium polycarbophil 625 mg 625 mg PO QAM 01/05/25 04/05/25 History tablet (FiberCon) neomycin-bacitracn Zn-polymyxn 3.5 1 applic topical BID PRN abrasion 01/05/25 04/05/25 History mg-400 unit-5,000 unit top oint until resolved pkt (Triple Antibiotic) acetaminophen 500 mg tablet 1,000 mg PO Q4H PRN elevated 02/09/25 04/05/25 History temp/headache/mild pain fluoride (sodium) 1.1 % dental 1 applic dental BID 02/09/25 04/05/25 History cream (SF 5000 Plus) calcium 500 mg (as 1 tab PO QAM 02/21/25 04/05/25 History carbonate)-vitamin D3 5 mcg (200 unit) tablet nystatin 100,000 unit/gram topical 1 applic topical HS 02/21/25 04/05/25 History cream dextromethorphan-guaifenesin 10 5 ml PO Q4 PRN Cough 04/05/25 04/05/25 History mg-200 mg/5 mL oral liquid metoprolol succinate 25 mg 25 mg PO DAILY 04/05/25 04/05/25 History tablet,extended release 24 hr phenylephrine HCl 10 mg tablet 10 mg PO Q4 PRN colds/runny nose 04/05/25 04/05/25 History Lactobacillus acidoph-L.bulgaricus 1 tab PO DAILY 30 days #30 tabs 04/08/25 Rx 1 million cell tablet (Floranex) perphenazine 2 mg tablet 1 mg (1/2 x 2 mg) PO QAM 30 days 04/08/25 Rx #15 tabs perphenazine 2 mg tablet 3 mg (1.5 x 2 mg) PO HS 30 days 04/08/25 Rx #45 tabs vancomycin 125 mg capsule 125 mg PO Q6 4 days #16 caps 05/18/25 Rx Hospital Stay Data Consultations 04/05/25 13:34 ED Decision to Admit Stat 04/05/25 14:16 Consult Neurology Routine 04/05/25 14:19 Consult Urology Routine 04/05/25 14:24 Consult Infectious Diseases Routine Procedures Performed Operation Date: 04/21/25 13:45 Actual Procedures p Cystoscopy, Bilateral Retrograde Pyelogram,Right Stent Removal - Dilip Napoles, Diagnostic Imagining Performed 04/05/25 10:51 CT cervical spine wo con Stat CT head/brain wo con Stat 04/11/25 15:33 CT head/brain wo con Stat 04/14/25 FL retrograde includes kub Routine 04/18/25 12:04 CT Abd and Pelvis [CT abd pelvis wo con] Routine 04/21/25 13:45 FL retrograde includes kub Routine 05/12/25 16:55 US venous doppler LE BI Urgent 05/13/25 07:39 CTA abdomen pelvis w con [CT angio abdomen pelvis w con] Urgent 05/14/25 17:22 CT angio chest PE protocol Routine Pending Results Patient Have Any Pending Studies at Discharge: No Discharge Instructions Given to Patient (Per Discharging Provider) patient is to have a bed alarm, fall mats and bedside commode. Total Time Total Time Spent Total Time Spent (In Minutes): 42
[2025-05-20 11:23] VITALS: BP 118/73; PULSE 74; RESP 17; TEMP 98.4; O2SAT 95
== END 2025-05-20 13:39 | disposition home health service (06) | DRG 660 ==
LOC: ED 10:15 → EDINP 14:00 → SUATTDRO 14:00 → 3W 16:43 → 2W 04-11 18:02